=== PATIENT | female | born 1940 | race Caucasian/White ===

== ENCOUNTER 2022-11-29 06:12 | Outpatient (OUT) | payer MEDICARE, SELFPAY ==
--- NOTE | 2022-11-29 | PCN_ITS ---
CARDIAC STRESS TEST Requesting Physician:? Rashawn Caceres M.D. Procedure Date:? 11/29/2022 PERFORMING PROVIDER:? Rashawn Caceres M.D. INDICATION:? Chest pain. PROTOCOL:? Lexiscan myocardial perfusion scan. Resting heart rate:? 64 Max heart rate:? 87 Resting blood pressure:? 124/88 Maximum blood pressure:? 160/84 CONCLUSIONS: 1.? Resting EKG demonstrates sinus bradycardia. 2.? There were no definite EKG changes meeting the criteria for ischemia. 3.? Please refer to separately interpreted and reported myocardial perfusion imaging report. [facility]
--- NOTE | 2022-11-29 06:20 | NM_ITS ---
Patient: MICHEAL BRICE Exam Date: 11/29/2022 : 1940 Gender:F Ordering : STEVE PEGUERO Admission #: [id number] Family : SHAIKH Che MEJIAS . Order #: [id number] CLICK HERE TO VIEW EXAM RADIOLOGY REPORT PROCEDURE: NM PATEL PERF SPECT REST STR COMPARISON: None. INDICATIONS: CHEST PAIN, SHORTNESS OF BREATH TECHNIQUE: Exam Description: Stress/Rest one day protocol gated SPECT Rest Imagin.0 mCi Tc-99m Cardiolite IV on 11/29/2022 Stress Imaging 30.9 mCi Tc-99m Cardiolite IV on 11/29/2022 Exercise Protocol: 0.4 mg Lexiscan given IV Heart Rate (bpm): Rest: 54 Max: 87 PMHR: 62 Blood Pressure: Rest: 124/88 Max: 160/84 Symptoms: Rest and peak stress ECG findings were normal and the exercise portion of the study was normal per attending physician Dr. Peguero . For more details please see separate cardiac stress test report. FINDINGS: QUALITY OF STUDY: Excellent. PERFUSION DEFECT: None. LOCATION: N/A SIZE: N/A. SEVERITY: N/A. TYPE: N/A. WALL MOTION: Normal. LV SIZE: Normal. 74 mL. TID / TCD: None; 0.7 LVEF: Normal. Calculated EF 78%. SUMMARY: Myocardial perfusion imaging study is NORMAL. CONCLUSION: 1. Normal nuclear medicine myocardial perfusion scan. Dictated by: Jose Bearden M.D. on 11/30/2022 at 15:27 Approved by: Jose Bearden M.D. on 11/30/2022 at 15:28
[2022-11-29] MEDS: REGADENOSON 0.4 MG/5 ML SYRINGE IV (08:26)
--- NOTE | 2022-11-29 09:56 | CA_ITS ---
Patient: MICHEAL BRICE Exam Date: 11/29/2022 : 1940 Gender:F Ordering : STEVE PEGUERO Admission #: [id number] Family : Order #: [id number] CLICK HERE TO VIEW EXAM ECHOCARDIOGRAM REPORT PROCEDURE: CA ECHO DOPPLER COMPLETE INDICATIONS: Chest pain COMPARISON: None. DESCRIPTION: COMPLETE ECHOCARDIOGRAM Real-time transthoracic echocardiography with 2D, M-mode, spectral and color flow Doppler performed. QUALITY: Technical quality was good. LEFT VENTRICLE: Normal chamber size. Mild concentric left ventricular hypertrophy. LV EF: Normal left ventricular ejection fraction, (>55%). No regional wall motion abnormalities. DIASTOLIC: Grade I diastolic dysfunction. ATRIAL SEPTUM: Visually appears intact. LEFT ATRIUM: Moderate dilatation. RIGHT ATRIUM: Normal chamber size. RIGHT VENTRICLE: Normal chamber size. Normal right ventricular systolic function. TRICUSPID VALVE: Normal mobility and thickness. No stenosis with trivial regurgitation. Doppler studies reveal mildly (35-45) elevated right sided pressures. RVSP 35 mmHg MITRAL VALVE: Normal mobility and thickness. No evidence of mitral valve stenosis. There is no mitral annular calcification. Trivial mitral regurgitation. AORTIC VALVE: Normal trileaflet appearance. No visible sclerosis. Normal leaflet mobility. No evidence of aortic valve stenosis. No aortic regurgitation. AORTIC ROOT: Normal diameter and appearance. PULMONIC VALVE: Normal thickness and mobility. No stenosis. Trivial regurgitation. PERICARDIUM: No evidence of pericardial effusion. IVC: Collapses with inspirations. CONCLUSION: 1. Global ventricular systolic function is normal; visually estimated ejection fraction is 55 to 60% 2. Mild left ventricular hypertrophy 3. Grade 1 diastolic dysfunction 4. The left atrium is moderately dilated 5. Right ventricle is normal in size and systolic function 6. Mildly elevated right ventricular systolic pressure 7. No significant valvular abnormalities Adult Echocardiography Procedure Report Left Ventricle LVEDD (3.7 - 5.6 cm): 4.74 cm LVESD (2.2 - 4.0 cm): 3.22 cm LVIVS thickness (0.6 - 1.2 cm): 1.12 cm LVPW thickness (0.5 - 1.0 cm): 1.07 cm e': 0.12 m/s E - e': 4.50 LVOT Max Gradient: 4.51 mm[Hg] LVOT Area (cm2): 1.06 m/s Peak Velocity (LVOT): 1.06 m/s LVOT Diameter 2.05 cm Left Atrium LA Volume Index (2D A2C): 40.74 ml/m2 Left Atrium Systolic Dimension: 4.83 cm Mitral Valve MV E to A Ratio: 0.77 Mitral Valve A-Wave Peak Velocity: 0.70 m/s Mitral Valve E-Wave Peak Velocity: 0.54 m/s Right Ventricle Aorta AO Root Diam: 2.81 cm Ascending Ao Diam: 3.35 cm Aortic Valve AoV Area (Peak Santos): 2.98 cm2, 2.98 cm2 Peak Velocity(Antegrade Flow): 1.18 m/s Peak Gradient(Antegrade Flow): 5.57 mm[Hg] Tricuspid Valve Peak Velocity (Regurgitant Flow): 2.82 m/s Pulmonic Valve Mean Gradient: 2.12 mm[Hg] Mean Velocity: 0.69 m/s Peak Velocity: 0.97 m/s, 0.98 m/s Peak Gradient: 3.80 mm[Hg], 3.83 mm[Hg] Right Atrium Right Atrium Systolic Pressure: 41.43 ml, 41.43 ml Dictated by: Talat Tyler M.D. on 11/30/2022 at 09:59 Approved by: Talat Tyler M.D. on 11/30/2022 at 10:02
== END 2022-11-29 06:13 | disposition home or self-care (01) ==
PROVIDERS: PCP Internal Medicine; Visit Provider Internal Medicine Cardiovascular Disease
DX: R07.9 Chest pain, unspecified (principal)
CPT/HCPCS: 78452; 93017; 93306; A9500; J2785

== ENCOUNTER 2022-12-13 09:40 | Emergency (ER) | payer MEDICARE, SELFPAY ==
[2022-12-13] VITALS (26 sets, daily range): BP systolic 164–200; BP diastolic 86–137; PULSE 44–55; RESP 12–21; TEMP 36.6; O2SAT 96–99; BMI 35.3
--- NOTE | 2022-12-13 09:56 | XR_ITS ---
The [place] [id number] Patient Name: MICHEAL BRICE MRN: [id number] date: 1940 Sex: F Assigned Patient Location: ER Current Patient Location: ER Accession/Order Number: [id number] Exam Date: 12/13/2022 10:00 Report Date: 12/13/2022 10:30 At the request of: GILL BROWN Procedure: XR chest 1V TITLE: XR chest 1V COMPARISON: 2020 chest x-ray CLINICAL HISTORY: CP TECHNIQUE: One view. FINDINGS: Stable mild cardiomegaly and tortuous thoracic aorta. Calcified granuloma left lung base. The pulmonary vascular pattern is normal. The lungs are clear and the pleural margins are sharp. There are no significant skeletal abnormalities. XR/XR chest 1V IMPRESSION: NO ACUTE RADIOGRAPHIC FINDINGS Electronically authenticated by: CEDRIC ONOFRE Date: 12/13/2022 10:30
--- NOTE | 2022-12-13 09:56 | ECG_ITS ---
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
--- NOTE | 2022-12-13 09:57 | ED_ITS ---
HPI - Chest Pain General Chief Complaint: Chest Pain Stated Complaint: CHEST PAIN Time Seen by Provider: 12/13/22 09:53 Mode of arrival: walk-in Limitations: no limitations History of Present Illness HPI narrative: 82-year-old female presents for chest pain. It's been there since 8:30 this morning when she was on the computer, 1-1/2 hours ago. She points to the very low sternal area to indicate where it is and it goes into her back. She states she had a stress test a few weeks ago and in reviewing her electronic health record symptom is negative. No fever cough or shortness of breath. It does not radiate to her jaw or her arms. She is not short of breath. Symptom has been continuous and it's moderate. Related Data Previous Rx's Medication Instructions Recorded amlodipine 5 mg tablet (Norvasc) 5 mg PO DAILY #30 tabs 12/13/22 Allergies Allergy/AdvReac Type Severity Reaction Status Date / Time No Known Drug Allergies Allergy Verified 12/13/22 09:49 Review of Systems ROS Narrative A ten point review of systems is negative except as noted above. Exam Narrative Exam Narrative: Nurses note and vital signs reviewed and patient is not hypoxic. General: The patient appears well and in no apparent distress. Patient is resting comfortably on cart. Skin: Warm, dry, no pallor noted. There is no rash noted. Head: Normocephalic, atraumatic Eye: Normal conjunctiva, no drainage Ears, Nose, Mouth, and Throat: oral mucosa is moist. Nares patent. Cardiovascular: Regular Rate and Rhythm Respiratory: Patient is in no distress, no accessory muscle use, lungs are clear to auscultation, no wheezing, rales or rhonchi Back: non-tender GI: soft and nontender Musculoskeletal: The patient has no evidence of calf tenderness, no pitting edema, symmetrical pulses noted bilaterally Neurological: A&O, normal speech Psychiatric: Cooperative Constitutional Vital Signs, click to edit/add: Last Vital Signs Temp 97.8 F 12/13/22 09:50 Pulse 51 L 12/13/22 10:50 Resp 13 12/13/22 10:50 BP 179/105 H 12/13/22 10:46 Pulse Ox 97 12/13/22 10:50 O2 Del Method Room Air 12/13/22 09:50 Course Vital Signs Vital signs: Vital Signs Temperature 97.8 F 12/13/22 09:50 Pulse Rate 53 L 12/13/22 09:50 Respiratory Rate 18 12/13/22 09:50 Blood Pressure 200/105 H 12/13/22 09:50 Pulse Oximetry 98 12/13/22 09:50 Oxygen Delivery Method Room Air 12/13/22 09:50 Temperature 97.8 F 12/13/22 09:50 Pulse Rate 51 L 12/13/22 10:50 Respiratory Rate 13 12/13/22 10:50 Blood Pressure 179/105 H 12/13/22 10:46 Pulse Oximetry 97 12/13/22 10:50 Oxygen Delivery Method Room Air 12/13/22 09:50 MDM - Chest Pain MDM Narrative Medical decision making narrative: two sets of troponin are negative. Her blood pressure has been consistently elevated and she is prescribed Norvasc. She'll get a blood pressure recheck from her doctor within a few days for adjustment of her doses if needed. The importance of taking the blood pressure medicine was discussed with her thoroughly. She had a stress test and I reviewed the results and it was negative, two weeks ago. I do not suspect acute coronary syndrome. Treatment diagnosis and follow-up were discussed thoroughly with the patient. Differential Diagnosis Differential diagnosis: Likely pneumothorax, unstable angina pectoris, atypical chest pain, st elevation myocardial infarction and chest pain Lab Data Attestation: I reviewed the patient's lab results. Labs: Lab Results 12/13/22 12/13/22 Range/Units 10:07 11:27 WBC 10.7 (4.0-11.0) 10^3/uL RBC 4.13 L (4.20-5.40) 10^6/uL Hgb 12.0 (12.0-16.0) g/dL Hct 37.9 (36.0-48.0) % MCV 91.8 (81.0-99.0) fL MCH 29.1 (26.7-34.0) pg MCHC 31.7 (29.9-35.2) g/dL RDW 12.8 (11.0-15.0) % Plt Count 170 (150-450) 10^3/uL MPV 11.3 (9.5-13.5) fL Neut % (Auto) 33.9 L (43.0-75.0) % Lymph % (Auto) 57.9 (20.5-60.0) % [place] % (Auto) 6.6 (1.7-12.0) % Eos % (Auto) 1.0 (0.9-7.0) % Baso % (Auto) 0.4 (0.2-2.0) % Neut # (Auto) 3.6 (1.4-6.5) 10^3/uL Lymph # (Auto) 6.2 H (1.2-3.8) 10^3/uL [place] # (Auto) 0.7 (0.3-0.8) 10^3/uL Eos # (Auto) 0.1 (0.0-0.7) 10^3/uL Baso # (Auto) 0.0 (0.0-0.1) 10^3/uL Abs Immat Gran (auto) 0.02 (0.00-0.03) 10^3/uL Imm/Tot Granulo (auto) 0.2 (0.0-0.5) % Sodium 136 (136-145) mmol/L Potassium 4.3 (3.5-5.1) mmol/L Chloride 103 (98-107) mmol/L Carbon Dioxide 27.5 (21.0-32.0) mmol/L Anion Gap 9.8 BUN 20.0 H (7.0-18.0) mg/dL Creatinine 0.69 (0.55-1.02) mg/dL Est GFR ( Amer) >60 (>=60) Est GFR (Non-Af Amer) >60 (>=60) BUN/Creatinine Ratio 29.0 Glucose 86 (74-106) mg/dL Calcium 8.7 (8.5-10.1) mg/dL Troponin I High Sens 5.7 6.6 (4.0-51.3) pg/mL Imaging Data Chest x-ray: Radiologist's impression: Procedure: XR chest 1V TITLE: XR chest 1V COMPARISON: 2020 chest x-ray CLINICAL HISTORY: CP TECHNIQUE: One view. FINDINGS: Stable mild cardiomegaly and tortuous thoracic aorta. Calcified granuloma left lung base. The pulmonary vascular pattern is normal. The lungs are clear and the pleural margins are sharp. There are no significant skeletal abnormalities. IMPRESSION: NO ACUTE RADIOGRAPHIC FINDINGS Electronically authenticated by: CEDRIC ONOFRE Date: 12/13/2022 10:30 ECG Data Attestation: I personally reviewed and interpreted this ECG as follows: (EKG on my interpretation shows sinus bradycardia with a rate of 49 in no acute changes. First-degree AV block present.) Heart Score History: Slightly/Non-Suspicious ECG: Normal Age: >65 years Risk Factors: 1 or 2 Risk Factors Troponin: <Normal Limit Total Heart Score Recommendations & Risks:: 3 Discharge Plan Discharge Chief Complaint: Chest Pain Clinical Impression: Chest pain, Hypertension Patient Disposition: Home, Self-Care Time of Disposition Decision: 11:58 Condition: Good Mode of Transportation: Private Vehicle Prescriptions / Home Meds: New amlodipine [Norvasc] 5 mg tablet 5 mg PO DAILY Qty: 30 0RF Instructions: Hypertension (ED), Hypertension in the Older Adult (ED) Additional Instructions: See your family doctor within a week Stand Alone Forms: Portal Instructions Referrals: Shaikh Gross MD [Primary Care Provider] - 1 week
[2022-12-13 10:29] LABS: Basophils Percent Auto 0.4 % (0.2-2.0); Eosinophils Absolute Auto 0.1 10^3/uL (0.0-0.7); Hematocrit 37.9 % (36.0-48.0); Immature Granulocytes Abs Auto 0.02 10^3/uL (0.00-0.03); Immature Granulocytes Pct Auto 0.2 % (0.0-0.5); Lymphocytes Absolute Auto 6.2 10^3/uL (1.2-3.8); Lymphocytes Percent Auto 57.9 % (20.5-60.0); Mean Corpuscular HGB Conc 31.7 g/dL (29.9-35.2); Mean Corpuscular Hemoglobin 29.1 pg (26.7-34.0); Mean Corpuscular Volume 91.8 fL (81.0-99.0); Mean Platelet Volume 11.3 fL (9.5-13.5); Monocytes Absolute Auto 0.7 10^3/uL (0.3-0.8); Monocytes Percent Auto 6.6 % (1.7-12.0); Neutrophils Absolute Auto 3.6 10^3/uL (1.4-6.5); Neutrophils Percent Auto 33.9 % (43.0-75.0); Platelet Count 170 10^3/uL (150-450); Red Blood Count 4.13 10^6/uL (4.20-5.40); Red Cell Distribution Width 12.8 % (11.0-15.0); White Blood Count 10.7 10^3/uL (4.0-11.0)
[2022-12-13] MEDS: lidocaine HCL 15 ML, MAG HYDROX/ALUMINUM HYD/SIMETH 30 ML, HYOSCYAMINE SULFATE 0.25 MG PO (10:31)
[2022-12-13 10:44] LABS: Anion Gap 9.8; Calcium 8.7 mg/dL (8.5-10.1); Carbon Dioxide 27.5 mmol/L (21.0-32.0); Chloride 103 mmol/L (98-107); Estimated GFR (African America >60 (>=60); Estimated GFR (Non-African Ame >60 (>=60); Glucose 86 mg/dL (74-106); Potassium 4.3 mmol/L (3.5-5.1); Sodium 136 mmol/L (136-145); Troponin I High Sensitivity 5.7 pg/mL (4.0-51.3)
[2022-12-13 11:49] LABS: Troponin I High Sensitivity 6.6 pg/mL (4.0-51.3)
== END 2022-12-13 12:09 | disposition home or self-care (01) ==
PROVIDERS: Emergency Provider Emergency Medicine; PCP Internal Medicine
DX: R07.9 Chest pain, unspecified (principal)
CPT/HCPCS: 36415; 71045; 80048; 84484; 85025; 93005; 99285

== ENCOUNTER 2022-12-20 16:26 | Outpatient (OUT) | payer MEDICARE, SELFPAY ==
--- NOTE | 2022-12-20 16:38 | CT_ITS ---
[address] [address] Patient Name: MICHEAL BRICE MRN: [id number] date: 1940 Sex: F Assigned Patient Location: [facility] Current Patient Location: [facility] Accession/Order Number: [id number] Exam Date: 12/20/2022 17:03 Report Date: 12/20/2022 18:41 At the request of: SHAIKH RANDELL Procedure: CT angio chest EXAM: CT pulmonary angiogram of the chest using 98 mL of IV iodinated contrast. 3-D imaging was performed. Dose reduction technique used: Automated exposure control and/or adjustment of the mA and/or kV according to patient size and/or use of iterative reconstruction technique. REASON FOR EXAM: CHEST PAIN R07.9 COMPARISON: CT scan dated 01/17/2021 FINDINGS: No pulmonary emboli. No aortic dissection. No pneumothorax. No acute airspace opacities. No pleural effusion. No acute fractures. No concerning pulmonary nodules. No definite lymphadenopathy in the chest. Cardiomegaly. Old right rib fractures. Remainder unremarkable. CT/CT angio chest IMPRESSION: No pulmonary embolism or acute abnormalities in chest. Electronically authenticated by: MELINDA GILBERT Date: 12/20/2022 18:41
[2022-12-20 16:51] LABS: Estimated GFR (African America >60 (>=60); Estimated GFR (Non-African Ame >60 (>=60)
== END 2022-12-20 16:27 | disposition home or self-care (01) ==
LOC: LAB 16:31 → RAD 16:33
PROVIDERS: PCP Internal Medicine; Visit Provider Internal Medicine
DX: R07.9 Chest pain, unspecified (principal)
CPT/HCPCS: 36415; 71275; 82565; Q9967

== ENCOUNTER 2023-01-29 07:11 | Emergency (ER) | payer MEDICARE, SELFPAY ==
[2023-01-29] VITALS (17 sets, daily range): BP systolic 124–180; BP diastolic 84–90; PULSE 41–59; RESP 11–20; TEMP 36.2; O2SAT 91–100; BMI 37.8
--- NOTE | 2023-01-29 07:20 | XR_ITS ---
The [address] [address] Patient Name: MICHEAL BRICE MRN: [id number] date: 1940 Sex: F Assigned Patient Location: ER Current Patient Location: ER Accession/Order Number: [id number] Exam Date: 01/29/2023 07:35 Report Date: 01/29/2023 07:50 At the request of: GILL BROWN Procedure: XR chest 1V EXAM: XR chest 1V HISTORY: Chest pain and hypotension. COMPARISON: 12/13/2022. TECHNIQUE: AP erect view of the chest performed. FINDINGS: The trachea is midline. There is stable mild prominence of the cardiac silhouette. There is stable mild atheromatous calcification at the aortic arch. The hilar shadows are unremarkable. There is no consolidation or infiltrates. There is no pleural effusion or pulmonary vascular congestion. There is no pneumothorax. There is no acute osseous abnormality. XR/XR chest 1V IMPRESSION: There is no acute cardiopulmonary process. Electronically authenticated by: MALLIKA GEE Date: 01/29/2023 07:50
--- NOTE | 2023-01-29 07:20 | ECG_ITS ---
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
--- NOTE | 2023-01-29 07:21 | ED.CHESTPAI1 ---
HPI - Chest Pain General Chief Complaint: Chest Pain Stated Complaint: CHEST PAIN Time Seen by Provider: 01/29/23 07:14 History of Present Illness HPI narrative: 82-year-old female for a chief complaint of chest pain. It started about 4:00 this morning and it woke her up from sleep. She points to the low sternal area and it's just a pain. She can't further describe the pain such as sharp or pressure. It doesn't seem to radiate and she's had no fever or cough. It's been continuous since it started. She admits that she has been taking her blood pressure medication daily but she didn't take it today but it's been a month since she took it. She states she didn't take it because she felt well. Related Data Previous Rx's Medication Instructions Recorded amlodipine 5 mg tablet (Norvasc) 5 mg PO DAILY #30 tabs 12/13/22 Allergies Allergy/AdvReac Type Severity Reaction Status Date / Time No Known Drug Allergies Allergy Verified 12/13/22 09:49 Review of Systems ROS Narrative A ten point review of systems is negative except as noted above. PFSH PFSH Social History Smoking status: Former smoker Exam Narrative Exam Narrative: Nurses note and vital signs reviewed and patient is not hypoxic. General: The patient appears well and in no apparent distress. Patient is resting comfortably on cart. Skin: Warm, dry, no pallor noted. There is no rash noted. Head: Normocephalic, atraumatic Eye: Normal conjunctiva, no drainage Ears, Nose, Mouth, and Throat: oral mucosa is moist. Nares patent. Cardiovascular: Regular Rate and Rhythm Respiratory: Patient is in no distress, no accessory muscle use, lungs are clear to auscultation, no wheezing, rales or rhonchi Back: non-tender GI: soft and nontender Musculoskeletal: The patient has no evidence of calf tenderness, no pitting edema, symmetrical pulses noted bilaterally Neurological: A&O, normal speech Psychiatric: Cooperative Constitutional Vital Signs, click to edit/add: Last Vital Signs Temp 97.2 F L 01/29/23 07:15 Pulse 44 L 01/29/23 09:20 Resp 19 01/29/23 09:20 BP 180/90 H 01/29/23 07:15 Pulse Ox 97 01/29/23 09:20 O2 Del Method Room Air 01/29/23 07:15 Course Vital Signs Vital signs: Vital Signs Temperature 97.2 F L 01/29/23 07:15 Pulse Rate 59 L 01/29/23 07:15 Respiratory Rate 18 01/29/23 07:15 Blood Pressure 180/90 H 01/29/23 07:15 Pulse Oximetry 97 01/29/23 07:15 Oxygen Delivery Method Room Air 01/29/23 07:15 Temperature 97.2 F L 01/29/23 07:15 Pulse Rate 44 L 01/29/23 09:20 Respiratory Rate 19 01/29/23 09:20 Blood Pressure 180/90 H 01/29/23 07:15 Pulse Oximetry 97 01/29/23 09:20 Oxygen Delivery Method Room Air 01/29/23 07:15 MDM - Chest Pain MDM Narrative Medical decision making narrative: two sets of troponin are negative and she had a negative stress test two months ago. She is now symptom-free and is being discharged home. She was again encouraged to take her blood pressure medication on a daily basis. Her blood pressure improved without intervention here. I do not suspect acute coronary syndrome. Treatment diagnosis and follow-up were discussed with the patient. Differential Diagnosis Differential diagnosis: Likely pneumothorax, unstable angina pectoris, atypical chest pain, st elevation myocardial infarction and chest pain Medical Records Data Attestation: I reviewed the patient's medical records. Lab Data Attestation: I reviewed the patient's lab results. Labs: Lab Results 01/29/23 01/29/23 Range/Units 07:29 08:49 WBC 11.0 (4.0-11.0) 10^3/uL RBC 4.20 (4.20-5.40) 10^6/uL Hgb 12.2 (12.0-16.0) g/dL Hct 38.9 (36.0-48.0) % MCV 92.6 (81.0-99.0) fL MCH 29.0 (26.7-34.0) pg MCHC 31.4 (29.9-35.2) g/dL RDW 12.5 (11.0-15.0) % Plt Count 175 (150-450) 10^3/uL MPV 11.1 (9.5-13.5) fL Seg Neuts % (Manual) 40.0 Band Neutrophils % 2.0 (0-5) % Lymphocytes % (Manual) 48.0 (20.5-60.0) % Atypical Lymphs % (Man) 2.0 % Monocytes % (Manual) 7.0 (1.7-12.0) % Eosinophils % (Manual) 1.0 (0.9-7.0) % Basophils % (Manual) 0.0 L (0.2-2.0) % Neutrophils # (Manual) 4.40 (1.4-6.5) 10^3/uL Band Neutrophils # 0.2 (0.0-0.3) 10^3/uL Lymphocytes # (Manual) 5.28 H (1.20-3.80) 10^3/uL Abs Atypical Lymphs Man 0.2 Monocytes # (Manual) 0.77 (0.30-0.80) 10^3/uL Eosinophils # (Manual) 0.11 (0.00-0.70) 10^3/uL Basophils # (Manual) 0.00 (0.00-0.10) 10^3/uL Sodium 140 (136-145) mmol/L Potassium 4.5 (3.5-5.1) mmol/L Chloride 104 (98-107) mmol/L Carbon Dioxide 26.2 (21.0-32.0) mmol/L Anion Gap 14.3 BUN 18.0 (7.0-18.0) mg/dL Creatinine 0.74 (0.55-1.02) mg/dL Est GFR ( Amer) >60 (>=60) Est GFR (Non-Af Amer) >60 (>=60) BUN/Creatinine Ratio 24.3 Glucose 94 (74-106) mg/dL Calcium 8.9 (8.5-10.1) mg/dL Troponin I High Sens 4.7 4.9 (4.0-51.3) pg/mL Imaging Data Chest x-ray: Radiologist's impression: Procedure: XR chest 1V EXAM: XR chest 1V HISTORY: Chest pain and hypotension. COMPARISON: 12/13/2022. TECHNIQUE: AP erect view of the chest performed. FINDINGS: The trachea is midline. There is stable mild prominence of the cardiac silhouette. There is stable mild atheromatous calcification at the aortic arch. The hilar shadows are unremarkable. There is no consolidation or infiltrates. There is no pleural effusion or pulmonary vascular congestion. There is no pneumothorax. There is no acute osseous abnormality. IMPRESSION: There is no acute cardiopulmonary process. Electronically authenticated by: MALLIKA GEE Date: 01/29/2023 07:50 ECG Data Attestation: I personally reviewed and interpreted this ECG as follows: (EKG on my interpretation shows sinus rhythm with a rate of 49 and no acute changes.) Heart Score History: Moderately Suspicious ECG: Normal Age: >65 years Risk Factors: 1 or 2 Risk Factors Troponin: <Normal Limit Total Heart Score Recommendations & Risks:: 4 Discharge Plan Discharge Chief Complaint: Chest Pain Clinical Impression: Chest pain Patient Disposition: Home, Self-Care Time of Disposition Decision: 10:12 Condition: Good Mode of Transportation: Private Vehicle Prescriptions / Home Meds: No Action amlodipine [Norvasc] 5 mg tablet 5 mg PO DAILY Qty: 30 0RF Instructions: Chest Pain (ED) Additional Instructions: take your blood pressure medication on a daily basis Stand Alone Forms: Portal Instructions Referrals: ANTONIO SEAY [Primary Care Provider] - 1 week
[2023-01-29] MEDS: NITROGLYCERIN 0.4 MG BOTTLE PO ×2 (07:26→07:54)
[2023-01-29] MEDS: ASPIRIN 81 MG TAB.CHEW 324 MG PO (07:26)
[2023-01-29 07:35] LABS: Hematocrit 38.9 % (36.0-48.0); Hemoglobin 12.2 g/dL (12.0-16.0); Mean Corpuscular HGB Conc 31.4 g/dL (29.9-35.2); Mean Corpuscular Volume 92.6 fL (81.0-99.0); Mean Platelet Volume 11.1 fL (9.5-13.5); Platelet Count 175 10^3/uL (150-450); Red Cell Distribution Width 12.5 % (11.0-15.0)
[2023-01-29 07:55] LABS: Anion Gap 14.3; BUN Creatinine Ratio 24.3; Calcium 8.9 mg/dL (8.5-10.1); Carbon Dioxide 26.2 mmol/L (21.0-32.0); Chloride 104 mmol/L (98-107); Estimated GFR (African America >60 (>=60); Estimated GFR (Non-African Ame >60 (>=60); Glucose 94 mg/dL (74-106); Potassium 4.5 mmol/L (3.5-5.1); Sodium 140 mmol/L (136-145); Troponin I High Sensitivity 4.7 pg/mL (4.0-51.3)
[2023-01-29 08:11] LABS: Atypical Lymphocytes Abs Man 0.2; Band Neutrophils Absolute 0.2 10^3/uL (0.0-0.3); Eosinophils Absolute Manual 0.11 10^3/uL (0.00-0.70); Lymphocytes Absolute Manual 5.28 10^3/uL (1.20-3.80); Monocytes Absolute Manual 0.77 10^3/uL (0.30-0.80)
[2023-01-29 09:17] LABS: Troponin I High Sensitivity 4.9 pg/mL (4.0-51.3)
--- OUTSIDE RECORDS SUMMARY | 2023-03-06 17:33 | XMS_ITS | CCD ---
Author Name Unknown Address [address] [place] [address] Organization [facility] Care Team Providers Care Web Architect Name Role Phone DR MIGEL RAMSEY Consulting Unavailable FASHAIKH Richmond PARISI Primary Care Unavailable SHAIKH Richmond GROSS Attending Unavailable SHAIKH Richmond GROSS Admitting Unavailable SHAIKH Richmond GROSS Consulting Unavailable No, Physician Primary Care Provider Unavailabl e LUIS FELIPE BUSCH Attending Unavailable NO, PHYSICIAN Primary Care Unavailable NO, PHYSICIAN Primary Care Unavailable LUIS FELIPE BUSCH Referring Unavailable FADLUIS FELIPE De La Vega Admitting Unavailable NO, PHYSICIAN Primary Care Unavailable LUIS FELIPE BUSCH Attending Unavailable RASHAWN CACERES Attending Unavailable TerranceJessie contreras Attending Unavailable TerranceJessie Attending Unavailable TerranceJessie contreras Attending Unavailable Allergies Allergy Classification Reported Allergen(s) Allergy Type Date of Onset Reaction(s) Facility (1 source) Corticosteroids Drug allergy (disorder) 1 [facility] Repository Medications Current Medications Medication Drug Class(es) Dates Sig (Normalized) Sig (Original) cephalexin 500 mg oral capsule (2 sources) Cephalosporin Antibacterial Start: 04-18-2022 End: 04-28-2022 take 1 capsule by mouth four times daily cephALEXin (KEFLEX) 500 MG capsule Take 1 (one) capsule (500 mg total) by mouth 4 (four) times a day for 10 days . 40 capsule 1 04/18/2022 04/28/2022 Active omega-3 acid ethyl esters (fpc) 1000 mg oral capsule (1 source) omega-3 acid ethyl esters (LOVAZA) 1 gram capsule Take 2 (two) capsules (2 g total) by mouth 2 (two) times a day . 0 Active vitamin b12 1 mg/ml oral solution (3 sources) Vitamin B12 take 1 tablet by mouth once daily cyanocobalamin, vitamin B-12, 1,000 mcg/mL Drop Take 1 tablet by mouth daily . 0 Active vitamin e 22.6 mg/ml oral solution (3 sources) take 2 capsules by mouth once daily vitamin E, dl, acetate, 22.5 mg (50 unit)/mL Drop Take 2 capsules by mouth daily . 0 Active Problems Problem Classification Problem Date Documented Da te Episodic/Chronic Nonspecific chest pain (2 sources) Chest pain, unspecified; Translations: [Chest pain, unspecified] Onset: 11-08-2022 Episodic Other connective tissue disease (2 sources) History of right total knee replacement; Translations: [Presence of right artificial knee joint] Chronic Residual codes; unclassified (2 sources) Pain, unspecified; Translations: [Pain, unspecified] Onset: 04-18-2022 Episodic Residual codes; unclassified (2 sources) Pain Onset: 04-18-2022 Episodic Results Test Name Value Interpretation Reference Range Facil ity ED Note-Physicianon 02-08-20 ED Note-Physician [id number]# 1.00TIFF [facility] Cardiovascular Reporton 01-18 Cardiovascular Report [id number]#1.00TIFF [facility] Consultation Noteon 02-07-20 Consultation Note [id number]#1.00TIFF [facility] Echocardiographyon Echocardiography [id number]# 1.00TIFF [facility] Ambulatory Visit Summaryon 1 04-07-2022 Ambulatory Visit Summary MICHEAL BRICE :1940 Visit Date:02/05/2023 Ambulatory Visit Instructions Your Care Team Attending Physician - Jessie Max Primary Care Physician - Jessie Max This Is Your Medications List amlodipine (amLODIPine 5 mg Tab) Discharge Vitals Heart Rate (Peripheral) 74 Respiratory Rate 18 Blood Pressure 136/82 Height 155.0 cm Height 61 in Weight 88.8 kg Weight 195.36 lb BMI 36.96 What to do next Scheduled Follow-Up Appointments Sunday 1:00 PM EST With: Jessie Max Where: [facility] Normal [facility] Office/Clini c Noteon 02-05-2023 Family Medicine Office/Clinic Note HPI Staff Micheal is a 82 year old female presenting for ER follow up ER followup: [facility]: [facility] Visit date: 01-29-23 Symptoms the patient presented with: Chest pains, hypertension No new medications started Current concerns: pt states she usually doesn't take any medications all natural herbs. Woke up 01/29 with epigastric pain took her blood pressure it was in the 180's. History of Present Illness pt presents for ER follow up for elevated BP Review of Systems PHQ Score Initial Depression Screen Score: 0 SCORE ROS - Provider Constitutional: no fever, no chills, no sweats, no fatigue Respiratory: no shortness of breath, no cough, no orthopnea, no wheezing. Cardiovascular: no chest pain, no palpitations, no edema. Neurologic: no headache, no dizziness, no numbness, no weakness. Physical Exam Vitals & Measurements HR: 74(Peripheral) RR: 18 BP: 136/82 SpO2: 97% HT: 61 in HT: 155.0 cm WT: 88.8 kg WT: 195.36 lb BMI: 36.96 General: alert, no acute distress ENMT: oral mucosa moist, no pharyngeal erythema or exudate Cardiovascular: regular rate and rhythm, normal peripheral perfusion Respiratory: Lungs CTA, respirations non labored Extremities: no deformity, no trauma Neurological: oriented x 4, LOC appropriate for age, CN II-XII intact, motor strength equal & normal bilaterally, speech normal Assessment/Plan 1. Hypertension (I10: Essential (primary) hypertension) pt presents today for ER follow up for elevated BP. pt was prescribed amlodipine in November. but stopped taking it after having cardiac work up that was negative. will try to obtain those results from [facility]. pt stated taking medication after ER visit and BP is WNL now. encouraged her to please continue taking amlodipine daily. pt states I do not like taking meds. she would rather take vitamins and herbs. encouraged the importance of taking BP meds daily to prevent BP from rising so high that she has to make another trip to ER. 2. BMI 36.0-36.9,adult (Z68.36: Body mass index [BMI] 36.0-36.9, adult) discussed making good food choices and losing weight. pt is encouraged to lose weight because she does not want to take BP meds the rest of her life Orders: amlodipine, 5 mg = 1 tab(s), Oral, Daily, # 90 tab(s), Refills(s) 0, Pharmacy: [facility] #[id number], 155, cm, 02/05/23 13:30:00 EST, Height/Length Dosing, 88.8, kg, 02/05/23 13:30:00 EST, Weight Dosing cephalexin, 500 mg = 1 cap(s), Oral, q12hr, # 20 cap(s), Refills(s) 0, [facility]acy: [facility] #[id number], 155, cm, 01/03/23 10:31:00 EDT, Height/Length Dosing, 88.9, kg, 01/03/23 10:31:00 EDT, Weight Dosing Follow-up No qualifying data available Problem List/Past Medical History Ongoing BMI 36.0-36.9,adult Hypertension Spider bite Historical No qualifying data Medications amLODIPine 5 mg Tab, 5 mg= 1 tab(s), Oral, Daily amLODIPine 5 mg Tab, 5 mg= 1 tab(s), Oral, Daily Allergies No Known Allergies Social History Tobacco Never (less than 100 in lifetime) Tobacco Use:. Never Smokeless Tobacco Use:. Household tobacco concerns: No., 02/05/2023 Immunizations Vaccine Date Status diphtheria/pertussis, acel/tetanus adult 08/07/2013 Recorded tetanus-diphtheria toxoids 03/19/2004 Recorded Normal [facility] Comment on above: Result Comment: Elec tronically Signed By: Jessie Max\.sonido\Date and Time Signed: 02/05/23 14:00 EST ED Note-Physicianon 02-01-20 ED Note-Physician [id number] #1.00TIFF Normal [facility] RAD - MISCon 01-29-2023 RAD - MISC [id number]#1.00TI FF Normal [facility] Ambulatory Visit Summaryon 1 Ambulatory Visit Summary MICHEAL BRICE :1940 Visit Date:01/03/2023 Ambulatory Visit Instructions Your Diagnosis BMI 37.0-37.9, adult Non-smoker Your Care Team Attending Physician - Jessie Max Primary Care Physician - Jessie Max Discharge Vitals Heart Rate (Peripheral) 68 Respiratory Rate 18 Blood Pressure 122/82 Height 155 cm Height 61 in Weight 88.9 kg Weight 195.58 lb BMI 37 Allergies No Known Allergies Normal [facility] Family Medicine Office/Clini c Noteon 01-03-2023 Family Medicine Office/Clinic Note HPI Staff Micheal is a 82 year old female presenting for acute visit pt was bit by spider on 12/29/22 left lower back area is red and swelled and seeping. had put ALISHA , ambar drawing Lizbet. area is sore History of Present Illness pt presets today with spider bite on left lower back Review of Systems PHQ Score Initial Depression Screen Score: 0 ROS - Provider Constitutional: no fever, no chills, no sweats, no fatigue Respiratory: no shortness of breath, no cough, no orthopnea, no wheezing. Cardiovascular: no chest pain, no palpitations, no edema. Neurologic: no headache, no dizziness, no numbness, no weakness. Physical Exam Vitals & Measurements HR: 68(Peripheral) RR: 18 BP: 122/82 SpO2: 98% HT: 61 in HT: 155 cm WT: 88.9 kg WT: 195.58 lb BMI: 37 General: alert, no acute distress ENMT: oral mucosa moist, no pharyngeal erythema or exudate Cardiovascular: regular rate and rhythm, normal peripheral perfusion Respiratory: Lungs CTA, respirations non labored Extremities: no deformity, no trauma Neurological: oriented x 4, LOC appropriate for age, CN II-XII intact, motor strength equal & normal bilaterally, speech normal Assessment/Plan 1. Spider bite (T63.301A: Toxic effect of unspecified spider venom, accidental (unintentional), initial encounter) pt presents today with spider bite on right lower back. she felt it bite her on Sunday. area was swollen and oozing. she has been treating it at home but was concerned it was infected. will send keflex. cerave cream samples also provided. RTC as needed Ordered: cephalexin, 500 mg = 1 cap(s), Oral, q12hr, # 20 cap(s), Refills(s) 0, Pharmacy: [facility] #[id number], 155, cm, 01/03/23 10:31:00 EDT, Height/Length Dosing, 88.9, kg, 01/03/23 10:31:00 EDT, Weight Dosing 2. BMI 37.0-37.9, adult (Z68.37: Body mass index [BMI] 37.0-37.9, adult) BMI education complete Ordered: cephalexin, 500 mg = 1 cap(s), Oral, q12hr, # 20 cap(s), Refills(s) 0, Pharmacy: [facility] #[id number], 155, cm, 01/03/23 10:31:00 EDT, Height/Length Dosing, 88.9, kg, 01/03/23 10:31:00 EDT, Weight Dosing 3. Non-smoker (Z78.9: Other specified health status) continue not smoking Ordered: cephalexin, 500 mg = 1 cap(s), Oral, q12hr, # 20 cap(s), Refills(s) 0, Pharmacy: [facility] #[id number], 155, cm, 01/03/23 10:31:00 EDT, Height/Length Dosing, 88.9, kg, 01/03/23 10:31:00 EDT, Weight Dosing Follow-up No qualifying data available Problem List/Past Medical History Ongoing Spider bite Historical No qualifying data Medications cephalexin 500 mg Cap, 500 mg= 1 cap(s), Oral, q12hr Allergies No Known Allergies Social History Tobacco Never (less than 100 in lifetime) Tobacco Use:. Never Smokeless Tobacco Use:. Household tobacco concerns: No., 01/03/2023 [facility] Comment on above: Result Comment: Elec tronically Signed By: Jessie Max.sonido\Date and Time Signed: 01/03/23 11:29 EDT Office Visiton 11-08-2022 Follow-up visit [id number] Adrianna Brice 1940 F Date Provider Department Center 11/08/2022 3848-RASHAWN CACERES [facility] Family History Problem Relation Age of Onset Coronary artery disease Mother Other Mother Family Status - Relation Status Age at Mother Level of Service:12956 [place] OFFICE/OUTPATIENT NEW MODERATE MDM 45-59 MINUTES Normal [facility] Vital Signs Date Time Vital Sign Value Performing Clinician Faci lity 05-09-2022 08:07-0500 Body height 157.5 cm Luis Felipe Busch MD Work Phone: [facility] 05-09-2022 08:07-0500 Body mass index (BMI) [Ratio] 37.49 kg/m2 Luis Felipe Busch MD Work Phone: [facility] 05-09-2022 08:07-0500 Body weight 92.99 kg Luis Felipe Busch MD Work Phone: [facility] 04-18-2022 08:32-0500 Body height 157.5 cm Luis Felipe Busch MD Work Phone: [facility] 04-18-2022 08:32-0500 Body mass index (BMI) [Ratio] 37.49 kg/m2 Luis Felipe Busch MD Work Phone: [facility] 04-18-2022 08:32-0500 Body weight 92.99 kg Luis Felipe Busch MD Work Phone: [facility] Encounters Encounter Date Encounter Type Care Provider Facility Start: 03-21-2023 ambulatory Jessie L Terrance Facility: [facility] Start: 02-05-2023 End: 02-06-2023 ambulatory Jessie L Terrance Facility: [facility] Start: 01-03-2023 End: 01-04-2023 ambulatory Jessie L Terrance Facility: [facility] Start: 11-08-2022 End: 11-08-2022 ambulatory RASHAWN CACERES [facility] Start: 05-09-2022 End: 05-09-2022 ambulatory PHYSICIAN [facility] Start: 05-09-2022 End: 05-09-2022 Office outpatient visit 15 minutes Luis Felipe Busch MD Work Phone: [facility] Comment on above: History of total rig ht knee replacement (Primary Dx) Start: 04-28-2022 Refill Niurka Fitzgerald MA [facility] Start: 04-18-2022 End: 04-22-2022 ambulatory PHYSICIAN NO [facility] Start: 04-18-2022 End: 04-18-2022 Office outpatient new 30 minutes Luis Felipe Busch MD Work Phone: [facility] Comment on above: History of total rig ht knee replacement (Primary Dx) Start: 03-29-2022 End: 03-30-[address] MIGEL RAMSEY Facility: Plan of Treatment Date Care Activity Detail Author Start: 08-08-2023 Tetanus vaccination Tetanus: Every 10yrs [facility] Start: 05-08-2023 End: 05-08-2023 Patient encounter procedure 05/08/2023 Office Visit Orthopedic Surgery Luis Felipe Busch MD [address] [place], [place] [id number] [facility] Start: 05-09-2022 End: 05-09-2022 Patient encounter procedure 05/09/2022 Office Visit Orthopedic Surgery Luis Felipe Busch MD [address] [place] [id number] [facility] Start: 11-17-2021 Influenza vaccination Sequential Influenza Vaccine (#1) [facility] Start: 2007 Fall risk assessment Falls Risk Assessment [facility] Start: 2007 Pneumococcal Vaccine: Age 65+ (1 - PCV) Pneumococcal Vaccine: Age 65+ (1 - PCV) [facility] Start: 1992 Administration of herpes zoster vaccine Zoster Vaccines (1 of 2) [facility] Start: 1982 Screening for malignant neoplasm of breast Mammogram [facility] Start: 1954 Depression screening using PHQ-9 (Patient Health Questionnaire 9) score Depression Screening (PHQ-2/9) [facility] Start: 1945 History and physical examination, annual for health maintenance Wellness Visit [facility] Start: 1940 COVID-19 Vaccine (#1) COVID-19 Vaccine (#1) [facility] Start: 1940 Screening for osteoporosis Dexa Scan [facility] Payers Date Payer Category Payer Medicare DOMINIQUE EVANSCARLOS DOMINIQUE BILLY ACCESS/ENHANCED/CORE PPO/RPPO [id number] 2021-Present [phone] [address] [place] [address] 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 female With no significant cardiac history who was referred to Cardiology clinic for evaluation of chest pain. Patient states that approximately 1 week ago, she developed sharp substernal chest pain (She does not recall duration) prior to resolving spontaneously. She denies any associated symptoms. She denies any shortness of breath. She denies any nausea or vomiting. Patient adamantly denies any syncope, LE edema, orthopnea, PND, palps, or bleeding. Denies any recurrence of chest pain Patient denies any previous history of CVA, PVD, DM, HTN, Depressed LVEF, and CAD. Cardiology ROS: GENERAL: Denies fever, chills, night sweats, weight loss. HEENT: Denies changes in vision, photophobia, changes in hearing, epistaxis, oral bleeding. CARDIOVASCULAR: As per HPI RESPIRATORY: Denies SOB, coughing, wheezing GI: Denies abdominal pain, nausea/vomiting, heartburn, melena/hematochezia. RENAL: Denies dysuria, hematuria, flank pain. MSK: Denies muscle weakness/pain, arthralgias/joint pain. NEUROLOGIC: Denies LOC, weakness, numbness, headaches. SKIN: Denies abnormal rashes or bleeding. PSYCH: Denies significant anxiety, depression, sleep disturbances. Past Medical History She has a past medical history of Chest pain. Surgical History She has a past surgical history that includes Bowel resection; Ankle surgery; Finger surgery; and Replacement total knee oncologic. Social History She reports that she has never smoked. She has never used smokeless tobacco. She reports that she does not drink alcohol. No history on file for drug use. Family History Family History Problem Relation Name Age of Onset Coronary artery disease Mother Other (heart valve disease) Mother Medications Current Outpatient Medications on File Prior to Visit Medication Sig Dispense Refill cyanocobalamin, vitamin B-12, 1,000 mcg/mL drops Take 1 tablet by mouth in the morning. No current facility-administered medications on file prior to visit. Allergies Patient has no known allergies. Physical Exam VITAL SIGNS: BP 142/84 (BP Location: Left arm, Patient Position: Sitting) Pulse 56 Ht 1.575 m (5' 2 ) Wt 89.4 kg (197 lb) SpO2 97% BMI 36.03 kg/m??? Constitutional: Well developed, Well nourished, No acute distress, Non-toxic appearance. HENT: Normocephalic, Atraumatic, Bilateral external ears have normal appearance, Nose appears normal, nares are patent. Eyes: PERRLA, EOMI, Conjunctiva normal, No discharge. Neck: Normal range of motion, No tenderness, Supple, No stridor. No cervical lymphadenopathy noted. Cardiovascular: Normal heart rate, Normal rhythm, No murmurs, No rubs, No gallops. Thorax & Lungs: Normal breath sounds, No respiratory distress, No wheezing, No chest tenderness to palpation. Abdomen: Bowel sounds normal, Soft, Nontender, No masses, No pulsatile masses. Skin: Warm, Dry, No erythema, No rash. Back: No tenderness, No CVA tenderness. Extremities: Intact distal pulses, No edema, No tenderness, No cyanosis, No clubbing. Musculoskeletal: Grossly normal strength in extremities Neurologic: Alert & oriented x 3, no gross focal neurological deficits Psychiatric: Affect normal, Judgment normal, Mood normal. Impression: -Hypertension -Chest pain Plan: -Obtain EKG today in clinic -We will obtain echocardiogram to assess LVEF, valvular function, no regional wall motion -We will obtain Lexiscan myocardial perfusion imaging to assess for ischemia -Instructed the patient to take aspirin 81 mg daily pending further evaluation -Discussed starting patient on statin and beta-li. She declines at this time -Optimize medical management -Aggressive risk factor modification -Plan of care discussed with patient. All questions were answered. Patient voices understanding and is agreeable with current plan. -Patient was educated on red flag symptoms. Strict return precautions were provided. Patient reminded to call 911 in the event that she has recurrence of chest pain. Patient verbalizes understanding -Follow-up in cardiology clinic after testing is complete Thank you for allowing us to participate in the care of your patient. Please do not hesitate to contact cardiology with any questions or concerns. Rashawn Caceres MD Interventional Cardiology [facility] Progress note 11-08-2022 Note Date & Type Note Facility 11-08-2022 Note New patient here to establish care. Self ref for chest pain. Hx of LLE superficial thrombus back in 2020. Dr. Gross wanted her to take AC but she refused. Says she had some sharp chest pain last week that concerned her. Thought it was coming from something she had eaten. Denies associated SOB. Review of Systems Cardiovascular: Positive for chest pain and dyspnea on exertion ( I'm out of shape ). All other systems reviewed and are negative. [facility] History of Present illness Narrative 05-09-2022 Luis Felipe Busch MD - 05/09/2022 8:48 AM EST Note Date & Type Note Facility 05-09-2022 History of Presen t illness Narrative Subjective: Patient ID: Micheal Brice is a 82 y.o. female. HPI: She is here for follow-up regarding her cellulitis on her right lower extremity. She states that she did get the knee-high stockings and has been wearing them faithfully. She states that the knee feels great today and the cellulitis has resolved. The following portions of the patient's history were reviewed and updated as appropriate: allergies, current medications, past family history, past medical history, past social history, past surgical history, and problem list. Review of Systems Constitutional: Negative for chills and fever. HENT: Negative for dental problem. Respiratory: Negative for shortness of breath. Cardiovascular: Negative for chest pain and leg swelling. Gastrointestinal: Negative for vomiting. Musculoskeletal: Positive for arthralgias. Negative for gait problem and joint swelling. Skin: Negative for color change. Neurological: Negative for numbness. Hematological: Does not bruise/bleed easily. Psychiatric/Behavioral: The patient is not nervous/anxious. There is no problem list on file for this patient. Objective: General: alert, appears stated age, and cooperative Motion: Flexion: 0 to 120 Degrees Knee Strength: 5/5 throughout knee extensors and flexors Knee Stability: No instability of the knee DVT Exam: No evidence of DVT seen on physical exam. Imaging Studies: No results found. Assessment: 1. History of total right knee replacement Plan: We are pleased she is doing much better. She can discontinue the knee-high stockings. She is done with the antibiotics. We did advise her we really want to picker tender her exercise and activity level. We will see her in a year for reevaluation. No orders of the defined types were placed in this encounter. Return in about 1 year (around 05/09/2023) for Annual physical, xrays. Note: To expedite correspondence this note was generated by [employer] recognition software. Some grammatical or spelling errors may occur using the system. documented in this encounter [facility] Telephone encounter Note 04-28-2022 Telephone Encounter - Niurka Fitzgerald MA - 04/28/2022 3:19 PM EST Note Date & Type Note Facility 04-28-2022 Telephone encounter Note Form atting of this note might be different from the original. Patient called with question with whether she should finish keflex , she was instructed to finish antibiotic . [facility] Note 04-28-2022 Telephone Encounter - Niurka Fitzgerald MA - 04/28/2022 3:19 PM EST Note Date & Type Note Facility 04-28-2022 Miscellaneous Notes Formattin g of this note might be different from the original. Patient called with question with whether she should finish keflex , she was instructed to finish antibiotic . documented in this encounter [facility] History of Present illness Narrative 04-18-2022 Luis Felipe Busch MD - 04/18/2022 9:21 AM EST Note Date & Type Note Facility 04-18-2022 History of Presen t illness Narrative Subjective: Patient ID: Micheal Brice is a 82 y.o. female. HPI: She is a former patient of ours status post a right total knee arthroplasty. She states that she fell onto a ladder a little bit before New . She did finally have x-rays done of this which are from an outside facility. She states that she has been having a painful right lower leg as well as her knee hurts where she hit the ladder wrong. She is here for evaluation. The following portions of the patient's history were reviewed and updated as appropriate: allergies, current medications, past family history, past medical history, past social history, past surgical history, and problem list. Review of Systems Constitutional: Negative for chills and fever. HENT: Negative for dental problem. Respiratory: Negative for shortness of breath. Cardiovascular: Negative for chest pain and leg swelling. Gastrointestinal: Negative for vomiting. Musculoskeletal: Positive for arthralgias. Negative for gait problem and joint swelling. Skin: Positive for color change. Neurological: Negative for numbness. Hematological: Does not bruise/bleed easily. Psychiatric/Behavioral: The patient is not nervous/anxious. There is no problem list on file for this patient. Objective: General: alert, appears stated age, and cooperative Motion: Flexion: 0 to 120 Degrees Knee Strength: 5/5 throughout knee extensors and flexors Knee Stability: No instability of the knee DVT Exam: Calf/Ankle edema is present. Positive cellulitis starting at calf Imaging Studies: No results found. Imported x-rays 04-18-2022 independently reviewed Assessment: 1. History of total right knee replacement Plan: She does have cellulitis of the right lower extremity. Her total knee arthroplasty is stable. She is painful where she fell which will resolve with time. She is advised to get some knee-high stockings and at least wear these on the right lower extremity. We will place orders for antibiotics for 10 days to hopefully resolve the cellulitis. We will see her back in 3 weeks for reevaluation. No orders of the defined types were placed in this encounter. Return in about 3 weeks (around 05/09/2022) for Recheck, xrays. Note: To expedite correspondence this note was generated by [employer] voice recognition software. Some grammatical or spelling errors may occur using the system. documented in this encounter [facility] Clinical Note 03-30-2022 Note Date & Type Note Facility 03-30-2022 Note PROCEDURE: XR ELBOW RT MIN 3 VIEWS HISTORY: Accidental fall ; posterior right elbow pain COMPARISON: None. FINDINGS: BONES:Separate, corticated ossifications medial and lateral to the humeral condyles favoring heterotopic bone formation from remote injuries. No acute fracture or dislocation. Small periarticular degenerative osteophytes. SOFT TISSUES:No visible soft tissue swelling. EFFUSION:None visible. OTHER: Negative. IMPRESSION: 1. No acute bone abnormality. Electronically authenticated by: MIGEL RAMSEY Date: 2022-03-30 12:47 [facility] Clinical Note 03-30-2022 Note Date & Type Note Facility 03-30-2022 Note PROCEDURE: XR KNEE R T 4V or > HISTORY: Accidental fall ; anterior right knee pain COMPARISON: None. FINDINGS: BONES:Right knee replacement without evidence of hardware fracture or loosening. No bone fracture, dislocation, or lesion. SOFT TISSUES:No visible soft tissue swelling. EFFUSION:None visible. OTHER: Negative. IMPRESSION: 1. Right knee replacement without evidence of hardware failure. 2. No acute bone abnormality. Electronically authenticated by: MIGEL RAMSEY Date: 2022-03-30 12:42 [facility] Evaluation note Note Date & Type Note Facility Evaluation note Diagnosis History of total right knee replacement- Primary documented in this encounter [facility] Summary Purpose Family History No Family History Records FoundNo Family History Records FoundNo Family History Records FoundNo Family History Records Found Advance Directives No Advanced Directives Records FoundNo Advanced Directives Records FoundNo Advanced Directives Records FoundNo Advanced Directives Records Found Additional Source Comments INFORMATION SOURCE (unrecogn ized section and content) DATE CREATED AUTHOR 04/01/2022 [facility] DATE CREATED AUTHOR AUTHOR'S ORGANIZ ATION 05/10/2022 [facility] DATE CREATED AUTHOR AUTHOR'S ORGANIZ ATION 11/09/2022 [facility] DATE CREATED AUTHOR AUTHOR'S ORGANIZ ATION 02/09/2023 [facility] Reason for Visit (unrecogniz ed section and content) Reason Comments Pain Follow-up Patient is c/o right knee pain and swelling , she notes she feel the beginning of the month , she has tried IBU for pain Reason Onset Date Comments Medication Refill 04/28/2022 Reason Comments Follow-up Follow-up Patient is here for a f/u for her right knee and issues she was having with cellulitis, patient notes she is done with her antibiotic and notes her right leg feels great.she also wants to know when she can stop wearing her compression socks Care Teams (unrecognized sec tion and content) Web Architect Relationship Specialty Start Date End Date No, Physician [facility] PCP - General 04/18/22 Web Architect Relationship Specialty Start Date End Date No, Physician [facility] PCP - General 04/18/22 FOR RECORDS PERTAINING TO PATIENTS WHO ARE OR HAVE BEEN ENROLLED IN A CHEMICAL DEPENDENCY/SUBSTANCEABUSE PROGRAM, SOME INFORMATION MAY BE OMITTED. This clinical summary was aggregated from multiple sources. Caution should be exercised in using it in the provision of clinical care. This summary normalizes information from multiple sources, and as a consequence, information in this document may materially change the coding, format and clinical context of patient data. In addition, data may be omitted in some cases. CLINICAL DECISIONS SHOULD BE BASED ON THE PRIMARY CLINICAL RECORDS. [employer] [facility]. provides no warranty or guarantee of the accuracy or completeness of information in this document.
== END 2023-01-29 10:21 | disposition home or self-care (01) ==
PROVIDERS: Emergency Provider Emergency Medicine; PCP Family Medicine
DX: R07.9 Chest pain, unspecified (principal); Z87.891 Personal history of nicotine dependence; Z79.899 Other long term (current) drug therapy
CPT/HCPCS: 36415; 71045; 80048; 84484; 85027; 93005; 99285

== ENCOUNTER 2023-03-29 23:41 | Emergency (ER) | payer MEDICARE, OTHER, SELFPAY ==
[2023-03-29 23:45] VITALS: BP 168/68; PULSE 66; RESP 16; TEMP 36.6; O2SAT 98; BMI 34.9
--- OUTSIDE RECORDS SUMMARY | 2023-03-29 23:47 | XMS_ITS | CCD ---
Author Name Unknown Address [address] [place] [address] Organization [facility] Care Team Providers Care [employer] Crew Lead Name Role Phone DR MIGEL RAMSEY Consulting Unavailable FAWSHAIKH Richmond BAZAN Primary Care Unavailable FAWSHAIKH [place] BAZAN Attending Unavailable FAWBENI, H Admitting Unavailable FAWWALiliana, SHAIKH Richmond Consulting Unavailable No, Physician Primary Care Provider Unavailabl e LUIS FELIPE BUSCH Attending Unavailable NO, PHYSICIAN Primary Care Unavailable NO, PHYSICIAN Primary Care Unavailable FADLUIS FELIPE De La Vega Referring Unavailable FADALUIS FELIPE Admitting Unavailable NO, PHYSICIAN Primary Care Unavailable FADLUIS FELIPE De La [place]ega Attending Unavailable RASHAWN PEGUERO Attending Unavailable TerranceJessie Attending Unavailable TerranceJessie Attending Unavailable Terrance, Jessie Moreno Attending Unavailable Terrance, Jessie Moreno Attending Unavailable Allergies Allergy Classification Reported Allergen(s) Allergy Type Date of Onset Reaction(s) Facility (1 source) Corticosteroids Drug allergy (disorder) 1 [facility] Repository Medications Current Medications Medication Drug [...] 04/18/2022 04/28/2022 Active omega-3 acid ethyl esters (correction) 1000 mg oral capsule (1 source) omega-3 [...] Results Test Name Value Interpretation Reference Range Facility Family Medicine Office/Clini c Noteon 03-21-2023 Family Medicine Office/Clinic Note HPI Staff Micheal is a 82 year old female presenting for 2 month follow up JHOAN: 02/05/23 ER follow up HTN was started on Amlodipine 5mg Patient is here for follow up on hypertension. How often are you checking your blood pressure? yes What are your average readings? 117/63 pt has log but forgot it at home History of Present Illness pt presents today for BP follow up Review of Systems PHQ Score Initial Depression Screen Score: 0 SCORE ROS - Provider Constitutional: no fever, no chills, no sweats, no fatigue Respiratory: no shortness of breath, no cough, no orthopnea, no wheezing. Cardiovascular: no chest pain, no palpitations, no edema. Neurologic: no headache, no dizziness, no numbness, no weakness. Physical Exam Vitals & Measurements HR: 88(Peripheral) RR: 18 BP: 136/86 SpO2: 98% HT: 61 in HT: 155 cm WT: 89.3 kg WT: 196.46 lb BMI: 37.17 General: alert, no acute distress ENMT: oral mucosa moist, no pharyngeal erythema or exudate Cardiovascular: regular rate and rhythm, normal peripheral perfusion Respiratory: Lungs CTA, respirations non labored Extremities: no deformity, no trauma Neurological: oriented x 4, LOC appropriate for age, CN II-XII intact, motor strength equal & normal bilaterally, speech normal Assessment/Plan 1. Hypertension (I10: Essential (primary) hypertension) pt presents today for BP follow up. stopped taking BP meds and ended up in ER. has been taking meds ever since. pt states she feels well and she continues taking meds daily. all questions answered. RTC as needed 2. BMI 37.0-37.9, adult (Z68.37: Body mass index [BMI] 37.0-37.9, adult) BMI education complete 3. Non-smoker (Z78.9: Other specified health status) continue not smoking Follow-up No qualifying data available Problem List/Past Medical History Ongoing BMI 36.0-36.9,adult Hypertension Spider bite Historical No qualifying data Medications amLODIPine 5 mg Tab, 5 mg= 1 tab(s), Oral, Daily Allergies No Known Allergies Social History Tobacco Never (less than 100 in lifetime) Tobacco Use:. Never Smokeless Tobacco Use:. Household tobacco concerns: No., 02/05/2023 Immunizations Vaccine Date Status diphtheria/pertussi s, acel/tetanus adult 08/07/2013 Recorded tetanus-diphtheria toxoids 03/19/2004 Recorded Normal [facility] Comment on above: Result Comment: Elec tronically Signed By: Jessie Max\.br\Date and Time Signed: 03/21/23 13:39 EST ED Note-Physicianon 02-08-20 ED Note-Physician [id number] 6#1.00TIFF [facility] Cardiovascular Reporton 01-18 Cardiovascular Report [id number] 67#1.00TIFF [facility] Consultation Noteon 02-07-20 Consultation Note [id number] B2#1.00TIFF [facility] Echocardiographyon Echocardiography [id number] 03#1.00TIFF [facility] Ambulatory Visit Summaryon 04-07-2022 Ambulatory Visit Summary MICHEAL BRICE :1940 [...] 1:00 PM EST With: Jessie Max Where: [facility] Family Medicine Office/Clini c Noteon 02-05-2023 Family Medicine Office/Clinic Note HPI Staff Micheal is a 82 year old female presenting for ER follow up ER followup: Hospital: [place] Visit date: 01-29-23 Symptoms the patient presented [...] will try to obtain those results from [facility]. pt stated taking medication after ER [...] Daily, # 90 tab(s), Refills(s) 0, [facility]: [facility] #[id number], 155, cm, 02/05/23 13:30:00 EST, Height/Length Dosing, 88.8, kg, 02/05/23 13:30:00 EST, Weight Dosing cephalexin, 500 mg = 1 cap(s), Oral, q12hr, # 20 cap(s), Refills(s) 0, Pharmacy: [facility] #[id number], 155, cm, 01/03/23 10:31:00 EDT, Height/Length Dosing, [...] concerns: No., 02/05/2023 Immunizations Vaccine Date Status diphtheria/pertussi s, acel/tetanus adult 08/07/2013 Recorded tetanus-diphtheria toxoids 03/19/2004 Recorded Normal [facility] Comment on above: Result Comment: Elec tronically Signed By: Jessie Max\.br\Date and Time Signed: 02/05/23 14:00 EST ED Note-Physicianon 02-01-20 ED Note-Physician [id number] 1F#1.00TIFF Normal [facility] RAD - MISCon 01-29-2023 RAD - MISC [id number] 2E#1.00TIFF Normal [facility] Ambulatory Visit Summaryon 1 Ambulatory [...] BMI 37 Allergies No Known Allergies Normal [facility] Family Medicine Office/Clini c Noteon [...] q12hr, # 20 cap(s), Refills(s) 0, [facility]: [facility] #[id number], 155, cm, 01/03/23 10:31:00 EDT, Height/Length Dosing, 88.9, kg, 01/03/23 10:31:00 EDT, Weight Dosing 2. BMI 37.0-37.9, adult (Z68.37: Body mass index [BMI] 37.0-37.9, adult) BMI education complete Ordered: cephalexin, 500 mg = 1 cap(s), Oral, q12hr, # 20 cap(s), Refills(s) 0, [facility]acy: [facility] #[id number], 155, cm, 01/03/23 10:31:00 EDT, Height/Length Dosing, 88.9, kg, 01/03/23 10:31:00 EDT, Weight Dosing 3. Non-smoker (Z78.9: Other specified health status) continue not smoking Ordered: cephalexin, 500 mg = 1 cap(s), Oral, q12hr, # 20 cap(s), Refills(s) 0, [facility]acy: [facility] #[id number], 155, cm, 01/03/23 10:31:00 EDT, Height/Length Dosing, [...] Tobacco Use:. Household tobacco concerns: No., 01/03/2023 Normal [facility] Comment on above: Result Comment: Elec tronically Signed By: Terrance BAILON, Jessie Moreno\.br\Date and Time Signed: 01/03/23 11:29 EDT Office Visiton 11-08-2022 Follow-up visit [id number] Micheal Brice 1940 F Date Provider Department Center 11/08/2022 3848-RASHAWN PEGUERO [facility] Family History Problem Relation Age of Onset Coronary artery disease Mother Other Mother Family Status - Relation Status Age at Mother Level of Service:18203 [place] OFFICE/OUTPATIENT NEW MODERATE MDM 45-59 MINUTES Normal [facility] Vital Signs Date Time Vital Sign Value Performing Clinician Faci lity 05-09-2022 08:07-0500 Body height 157.5 cm Luis Felipe Busch MD Work Phone: [facility] 05-09-2022 08:07-0500 Body mass index (BMI) [Ratio] 37.49 kg/m2 Luis Felipe Busch MD Work Phone: [facility] 05-09-2022 08:07-0500 Body weight 92.99 kg Luis Felipe Busch MD Work Phone: [facility] 04-18-2022 08:32-0500 Body height 157.5 cm Luis Felipe Busch MD Work Phone: [facility] 04-18-2022 08:32-0500 Body mass index (BMI) [Ratio] 37.49 kg/m2 Luis Felipe Busch MD Work Phone: [facility] 04-18-2022 08:32-0500 Body weight 92.99 kg Luis Felipe Busch MD Work Phone: [facility] Encounters Encounter Date Encounter Type Care Provider Facility Start: 04-04-2023 ambulatory Jessie Carlos Facility: [facility] Start: 03-21-2023 End: 03-22-2023 ambulatory Jessie L Terrance Facility:[facility] [place] Start: 03-16-2023 ambulatory Jessie Terrance Facility:[facility] Start: 02-05-2023 End: 02-06-2023 ambulatory Jessie L Terrance Facility:[facility] [place] Start: 01-03-2023 End: 01-04-2023 ambulatory Jessie L Terrnace Facility:[facility] [place] Start: 11-08-2022 End: 11-08-2022 ambulatory RASHAWN [facility] Start: 05-09-2022 End: 05-09-2022 [facility] Start: 05-09-2022 End: 05-09-2022 Office outpatient visit 15 minutes Luis Felipe Busch MD Work Phone: [facility] Comment on above: History of total rig ht knee replacement (Primary Dx) Start: 04-28-2022 Refill Niurka Fitzgerald MA [facility] Start: 04-18-2022 End: 04-22-2022 [facility] Start: 04-18-2022 End: 04-18-2022 Office outpatient new 30 minutes Luis Felipe Busch MD Work Phone: [facility] Comment on above: History of total rig ht knee replacement (Primary Dx) Start: 03-29-2022 End: 03-30-[address] MIGEL RAMSEY Facility:[facility] Plan of Treatment Date Care Activity Detail Author Start: 08-08-2023 Tetanus vaccination Tetanus: Every 10yrs [facility] Start: 05-08-2023 End: 05-08-2023 Patient encounter procedure 05/08/2023 Office Visit Orthopedic Surgery Luis Felipe Busch MD [address] [place] [id number] [facility] Start: 05-09-2022 End: 05-09-2022 Patient encounter procedure 05/09/2022 Office Visit Orthopedic Surgery Luis Felipe Busch MD [facility] [place] [address] [facility] Start: 11-17-2021 Influenza vaccination Sequential Influenza Vaccine (#1) [facility] Start: 2007 Fall risk assessment Falls Risk Assessment [facility] Start: 2007 Pneumococcal Vaccine: Age 65+ (1 - PCV) Pneumococcal Vaccine: Age 65+ (1 - PCV) [facility] Start: 1992 Administration of herpes zoster vaccine Zoster Vaccines (1 of 2) [facility] Start: 1982 Screening for malignant neoplasm of breast Mammogram [facility] Start: 1954 Depression screening using PHQ-9 (Patient Health Questionnaire 9) score Depression Screening (PHQ-2/9) [facility] Start: 1945 History and physical examination, annual for health maintenance Wellness Visit [facility] Start: 1942 COVID-19 Vaccine (#1) COVID-19 Vaccine (#1) [facility] Start: 1940 Screening for osteoporosis Dexa Scan [facility] Payers Date Payer Category Payer Medicare [facility] ACCESS/ENHANCED/CORE PPO/RPPO [id number] 2021-Present [phone] [address] [place] [address] [id number] 2007 Medicare [id number] 1959 Unknown [id number] 1940 Unknown [id number] 1940 Unknown [id number] 1940 Unknown [id number] 1940 Unknown [id number] 1940 Unknown [id number] .727 1940 Unknown [id number] .727 1940 Unknown [id number] 1940 Unknown [id number] Private Health Insurance [id number] Social History Date Type Detail Facility Tobacco smoking status 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 Rasahwn Peguero MD Interventional Cardiology [facility] Progress note 11-08-2022 Note Date & [...] All other systems reviewed and are negative. [facility] History of Present illness Narrative 05-09-2022 Luis [...] did advise her we really want to lease picker her exercise and activity level. We will see her in a year for reevaluation. No orders of the defined types were placed in this encounter. Return in about 1 year (around 05/09/2023) for Annual physical, xrays. Note: To expedite correspondence this note was generated by [employer] voice recognition software. Some grammatical or spelling errors may occur using the system. documented in this encounter [facility] Telephone encounter Note 04-28-2022 Telephone Encounter - Niurka Fitzgerald MA - 04/28/2022 3:19 PM EST Note Date & Type Note Facility 04-28-2022 Telephone encounter Note Form atting of this note might be different from the original. Patient called with question with whether she should finish keflex , she was instructed to finish antibiotic . [facility] Note 04-28-2022 Telephone Encounter - Niurka Fitzgerald MA - 04/28/2022 3:19 PM EST Note Date & Type Note Facility 04-28-2022 Miscellaneous Notes Formattin g of this note might be different from the original. Patient called with question with whether she should finish keflex , she was instructed to finish antibiotic . documented in this encounter [facility] History of Present illness Narrative 04-18-2022 Luis [...] a ladder a little bit before New '. She did finally have x-rays done of [...] expedite correspondence this note was generated by [employer] recognition software. Some grammatical or spelling errors may occur using the system. documented in this encounter [facility] Clinical Note 03-30-2022 Note Date & Type [...] by: MIGEL RAMSEY Date: 2022-03-30 12:47 [facility] Clinical Note 03-30-2022 Note Date & [...] authenticated by: MIGEL RAMSEY Date: 2022-03-30 12:42 [facility] Evaluation note Note Date & Type Note Facility Evaluation note Diagnosis History of total right knee replacement- Primary documented in this encounter [facility] Summary Purpose Family History No Family History Records FoundNo Family History Records FoundNo Family History Records FoundNo Family History Records Found Advance Directives No Advanced Directives Records FoundNo Advanced Directives Records FoundNo Advanced Directives Records FoundNo Advanced Directives Records Found Additional Source Comments INFORMATION SOURCE (unrecogn ized section and content) DATE CREATED AUTHOR 04/01/2022 [facility] DATE CREATED AUTHOR AUTHOR'S ORGANIZ ATION 05/10/2022 [facility] DATE CREATED AUTHOR AUTHOR'S ORGANIZ ATION 11/09/2022 [facility] DATE CREATED AUTHOR AUTHOR'S ORGANIZ ATION 03/22/2023 [facility] Reason for Visit (unrecogniz ed section and [...] Care Teams (unrecognized sec tion and content) Solar [employer]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 [facility] [employer] [facility]. provides no warranty or guarantee of the accuracy or completeness of information in this document.
[2023-03-29 23:48] VITALS: O2SAT 97
[2023-03-29 23:49] VITALS: BP 196/104; O2SAT 98
[2023-03-29 23:50] VITALS: O2SAT 99
--- NOTE | 2023-03-29 23:55 | ECG_ITS ---
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
[2023-03-30] VITALS (25 sets, daily range): BP systolic 139–183; BP diastolic 63–108; PULSE 52–64; RESP 12–26; O2SAT 59–98
--- NOTE | 2023-03-30 00:35 | ED.GENADUL1 ---
HPI - General Adult General Chief complaint: Recheck/Abnormal Lab/Rx Stated complaint: hypertension Time Seen by Provider: 03/30/23 00:24 Mode of arrival: walk-in History of Present Illness HPI narrative: This 83-year-old female with a history of hypertension who is on Norvasc presents for evaluation of elevated blood pressure and abdominal pain. The patient states that she made him gravy from broth that was sitting in her refrigerator for approximately one week as well as fried potatoes for dinner. She ate around 6:30 PM and started feeling unwell around 7 PM. She is nauseated and has epigastric abdominal pain. She noted that her blood pressure was elevated and took it several times prior to coming to the emergency department. She has not vomited or had any diarrhea. She states the pain radiates into her back. She has not had any dizziness or syncope. She has not had a fever. Her daughter brought her to the emergency department and left because she is also sick. Related Data Previous Rx's Medication Instructions Recorded amlodipine 5 mg tablet (Norvasc) 5 mg PO DAILY #30 tabs 12/13/22 Allergies Allergy/AdvReac Type Severity Reaction Status Date / Time No Known Drug Allergies Allergy Verified 12/13/22 09:49 Review of Systems ROS Status of ROS 10 or more systems reviewed and unremarkable except as noted in history and below [facility] Social History Smoking status: Former smoker Exam Narrative Exam Narrative: Nurses note and vital signs reviewed and patient is not hypoxic. Blood pressure is noted to be elevated at 168/68 General: Nontoxic, alert but uncomfortable appearing elderly female, no respiratory distress- stating she feels like she is going to vomit Skin: Warm, dry, no pallor noted. There is no rash noted. Head: Normocephalic, atraumatic Eye: Normal conjunctiva, no drainage, EOMI. PERRL. No scleral icterus Ears, Nose, Mouth, and Throat: oral mucosa is moist. Cardiovascular: Regular Rate and Rhythm S1S2, pulses are brisk and equal bilaterally Respiratory: Patient is in no distress, no accessory muscle use, lungs are clear to auscultation, no wheezing, rales or rhonchi Back: non-tender, no CVA tenderness bilaterally to percussion. GI: diffusely tender with right upper quadrant tenderness and positive Trimble sign, normal bowel sounds, no pulsatile masses appreciated Musculoskeletal: The patient has no evidence of calf tenderness, no pitting edema, symmetrical pulses noted bilaterally Neurological: A&O x4, normal speech Psychiatric: Cooperative Constitutional Vital Signs, click to edit/add: Last Vital Signs Temp 98 F 03/29/23 23:45 Pulse 62 03/30/23 03:01 Resp 15 03/30/23 03:01 BP 139/108 H 03/30/23 03:01 Pulse Ox 96 03/30/23 03:01 O2 Del Method Room Air 03/29/23 23:45 Course Vital Signs Vital signs: Vital Signs Temperature 98 F 03/29/23 23:45 Pulse Rate 66 03/29/23 23:45 Respiratory Rate 16 03/29/23 23:45 Blood Pressure 168/68 H 03/29/23 23:45 Pulse Oximetry 98 03/29/23 23:45 Oxygen Delivery Method Room Air 03/29/23 23:45 Temperature 98 F 03/29/23 23:45 Pulse Rate 62 03/30/23 03:01 Respiratory Rate 15 03/30/23 03:01 Blood Pressure 139/108 H 03/30/23 03:01 Pulse Oximetry 96 03/30/23 03:01 Oxygen Delivery Method Room Air 03/29/23 23:45 Medical Decision Making MDM Narrative Medical decision making narrative: This 83-year-old female presents for evaluation of epigastric abdominal pain/generalized abdominal pain that started approximately 30-45 minutes after eating ham gravy and fried potatoes. She was concerned that she may have some degree of food poisoning because the brought from the ham had been in the refrigerator for approximately one week. She denied any chest pain. She was concerned that her blood pressure was elevated. It was notably elevated upon arrival but she was also in a moderate degree of pain. She was tender in the epigastrium and right upper quadrant. She states the pain at times radiates into her back. She was nauseated but did not vomit. Adriane EKG done upon arrival was sinus rhythm at 56 bpm with no acute changes. An IV was placed and she was medicated with IV fluids, Toradol and Zofran and Pepcid and a gastrointestinal cocktail. On reevaluation she was feeling better. She still had some degree of pain and was medicated with half a tablet of [place]. She has a mildly elevated white count at 14. Electrolytes, liver function tests, lactic acid, lipase and troponin are normal. CT scan of abdomen and pelvis shows a dilated gallbladder without gallstones or pericholecystic fluid. This is consistent with her physical exam and presentation after eating a fatty meal of biliary colic. This was discussed with her. She states that she has not been eating fatty food recently and the ham gravy and fried potatoes were treated for her. I signed her that she may need an outpatient ultrasound and encouraged her to follow up closely with her family physician and return to the emergency department for worsening pain, nausea vomiting, fever or any concerns. Her vital signs have been stable in emergency department and prior to discharge blood pressure was in the 130s over 100s which she was comfortable with. Medical Records Medical records narrative: [place] [address] CT Scan Report Signed Patient: MICHEAL BRICE MR#: [id number] : 1940 Acct:[id number] Age/Sex: 83 / F ADM Date: 03/29/23 Loc: ER Attending Dr: Ordering Physician: Linda Logan Date of Service: 03/30/23 Procedure(s): CT abdomen pelvis w con Accession Number(s): [id number] cc: ANTONIO SEAY ~ The [address] [address] Patient Name: MICHEAL BRICE MRN: [id number] date: 1940 Sex: F Assigned Patient Location: ER Current Patient Location: ER Accession/Order Number: [id number] Exam Date: 03/30/2023 01:24 Report Date: 03/30/2023 02:40 At the request of: LINDA LOGAN Procedure: CT abdomen pelvis w con EXAM: CT abdomen pelvis w con HISTORY: upper abd pain COMPARISON: Abdominal x-rays, 01/20/2021. TECHNIQUE: IV contrast enhanced CT imaging the abdomen and pelvis was performed using 100 mL of Omnipaque 300 intravenous contrast. Sagittal and coronal reconstructions are provided. Dose reduction techniques were achieved by using automated exposure control and/or adjustment of mA and/or kV according to patient size and/or use of iterative reconstruction technique. FINDINGS: CT ABDOMEN: Mild bibasilar linear fibrotic scarring is noted. The heart is top normal in size. There is no pericardial effusion. The gallbladder is mildly distended without calcified stones, wall thickening or pericholecystic fluid. The liver, pancreas, spleen, adrenal glands, kidneys, stomach and small bowel appear unremarkable. There are mild aortic and iliac arterial calcifications without aneurysm. A small fat-containing umbilical hernia is noted. CT PELVIS: The pelvic small bowel loops and urinary bladder are unremarkable. Sigmoid diverticulosis is noted. There is a suggested septated uterus on image 100 with a possible fibroid in the lateral right uterine body. An enlarged node is seen medial to the right common femoral vein, measuring 1.5 x 1.2 cm on image 116. No inflammatory fat stranding, free fluid, loculated fluid or free air is seen in the abdomen or pelvis. No acute osseous abnormality or suspicious bony lesion is seen. CT/CT abdomen pelvis w con IMPRESSION: 1. Nonspecific mild gallbladder distention could reflect a prolonged interval since the patient's last meal. No cholelithiasis or CT findings of cholecystitis are seen. 2. No acute findings in the abdomen or pelvis to explain the patient's upper abdominal pain. Chronic changes are described abov Lab Data Lab results reviewed: Yes I reviewed the patient's lab results Labs: Lab Results 03/30/23 Range/Units 00:00 WBC 14.0 H (4.0-11.0) 10^3/uL RBC 4.24 (4.20-5.40) 10^6/uL Hgb 12.1 (12.0-16.0) g/dL Hct 38.5 (36.0-48.0) % MCV 90.8 (81.0-99.0) fL MCH 28.5 (26.7-34.0) pg MCHC 31.4 (29.9-35.2) g/dL RDW 12.2 (11.0-15.0) % Plt Count 171 (150-450) 10^3/uL MPV 12.0 (9.5-13.5) fL Seg Neuts % (Manual) 52.0 Lymphocytes % (Manual) 18.0 L (20.5-60.0) % Atypical Lymphs % (Man) 24.0 % Monocytes % (Manual) 1.0 L (1.7-12.0) % Eosinophils % (Manual) 3.0 (0.9-7.0) % Basophils % (Manual) 2.0 (0.2-2.0) % Neutrophils # (Manual) 7.28 H (1.4-6.5) 10^3/uL Lymphocytes # (Manual) 2.52 (1.20-3.80) 10^3/uL Abs Atypical Lymphs Man 3.36 Monocytes # (Manual) 0.14 L (0.30-0.80) 10^3/uL Eosinophils # (Manual) 0.42 (0.00-0.70) 10^3/uL Basophils # (Manual) 0.28 H (0.00-0.10) 10^3/uL Sodium 137 (136-145) mmol/L Potassium 4.0 (3.5-5.1) mmol/L Chloride 102 (98-107) mmol/L Carbon Dioxide 28.9 (21.0-32.0) mmol/L Anion Gap 10.1 BUN 19.0 H (7.0-18.0) mg/dL Creatinine 0.76 (0.55-1.02) mg/dL Est GFR ( Amer) >60 (>=60) Est GFR (Non-Af Amer) >60 (>=60) BUN/Creatinine Ratio 25.0 Glucose 118 H (74-106) mg/dL Lactate 0.8 (0.4-2.0) mmol/L Calcium 9.4 (8.5-10.1) mg/dL Total Bilirubin 0.3 (0.2-1.0) mg/dL AST 14 L (15-37) U/L ALT 26 (14-59) U/L Alkaline Phosphatase 104 (46-116) U/L Troponin I High Sens 4.4 (4.0-51.3) pg/mL Total Protein 6.9 (6.4-8.2) g/dL Albumin 3.7 (3.4-5.0) g/dL Globulin 3.2 g/dL Albumin/Globulin Ratio 1.2 Lipase 22.0 (16.0-77.0) U/L ECG Data Attestation: I personally reviewed and interpreted this ECG as follows: (Sinus bradycardia 56 beats for minute, normal axis, normal intervals, no acute ST segment elevation or T-wave inversion) Discharge Plan Discharge Chief Complaint: Recheck/Abnormal Lab/Rx Clinical Impression: Biliary colic Patient Disposition: Home, Self-Care Time of Disposition Decision: 02:55 Condition: Good Prescriptions / Home Meds: No Action amlodipine [Norvasc] 5 mg tablet 5 mg PO DAILY Qty: 30 0RF Instructions: Biliary Colic (ED), Low Fat Diet (ED) Stand Alone Forms: Portal Instructions Referrals: ANTONIO SEAY [Primary Care Provider] - 1 week Discharge Date/Time: 03/30/23 03:26
[2023-03-30 00:46] LABS: Hematocrit 38.5 % (36.0-48.0); Hemoglobin 12.1 g/dL (12.0-16.0); Mean Corpuscular HGB Conc 31.4 g/dL (29.9-35.2); Mean Corpuscular Hemoglobin 28.5 pg (26.7-34.0); Mean Corpuscular Volume 90.8 fL (81.0-99.0); Platelet Count 171 10^3/uL (150-450); Red Blood Count 4.24 10^6/uL (4.20-5.40); Red Cell Distribution Width 12.2 % (11.0-15.0)
[2023-03-30] MEDS: FAMOTIDINE/PF 20 MG/2 ML VIAL IV (00:53)
[2023-03-30] MEDS: KETOROLAC TROMETHAMINE 30 MG/ML VIAL 15 MG IVP (00:53)
[2023-03-30] MEDS: ONDANSETRON PF 4 MG/2 ML VIAL IV (00:53)
[2023-03-30 00:57] LABS: Alanine Aminotransferase 26 U/L (14-59); Albumin Globulin Ratio 1.2; Albumin Level 3.7 g/dL (3.4-5.0); Alkaline Phosphatase 104 U/L (46-116); Anion Gap 10.1; Aspartate Amino Transferase 14 U/L (15-37); Bilirubin Total 0.3 mg/dL (0.2-1.0); Calcium 9.4 mg/dL (8.5-10.1); Carbon Dioxide 28.9 mmol/L (21.0-32.0); Chloride 102 mmol/L (98-107); Estimated GFR (African America >60 (>=60); Estimated GFR (Non-African Ame >60 (>=60); Globulin 3.2 g/dL; Glucose 118 mg/dL (74-106); Sodium 137 mmol/L (136-145); Total Protein 6.9 g/dL (6.4-8.2)
[2023-03-30 00:59] LABS: Lactate/Lactic Acid 0.8 mmol/L (0.4-2.0); Troponin I High Sensitivity 4.4 pg/mL (4.0-51.3)
[2023-03-30] MEDS: lidocaine HCL 15 ML, MAG HYDROX/ALUMINUM HYD/SIMETH 30 ML, HYOSCYAMINE SULFATE 0.25 MG PO (01:09)
--- NOTE | 2023-03-30 01:25 | PC.NURSE ---
Patient lying in bed, very uncomfortable appearing. Patient states that the pain she is having is mostly epigastric, but is all over . She is not able to qualify it very specifically, but says it is somewhat crampy, and just hurts . She has been medicated with everything that has been ordered up to this point, and says there has been very minimal improvement from the GI cocktail. She denies other needs at this time. Will continue to monitor.
[2023-03-30 01:39] LABS: Lymphocytes Absolute Manual 2.52 10^3/uL (1.20-3.80); Segmented Neut Absolute Manual 7.28 10^3/uL (1.4-6.5)
[2023-03-30 01:40] LABS: Atypical Lymphocytes Abs Man 3.36; Basophils Abs Manual 0.28 10^3/uL (0.00-0.10); Eosinophils Absolute Manual 0.42 10^3/uL (0.00-0.70); Monocytes Absolute Manual 0.14 10^3/uL (0.30-0.80)
--- NOTE | 2023-03-30 02:13 | PC.NURSE ---
Patient resting in bed, more comfortable appearing at this time. She states that her abdominal pain is better, just a small amount of epigastric pain remains. She is concerned that her blood pressure is still elevated. She is given a warm blanket. Denies other needs at this time. Will continue to monitor.
[2023-03-30] MEDS: HYDROCODONE/ACET 5-325 MG TABLET 0.5 TAB PO (03:14)
== END 2023-03-30 03:26 | disposition home or self-care (01) ==
PROVIDERS: Emergency Provider Emergency Medicine; PCP Family Medicine
DX: K80.50 Calculus of bile duct without cholangitis or cholecystitis without obstruction (principal); Z87.891 Personal history of nicotine dependence
CPT/HCPCS: 36415; 74177; 80053; 83605; 83690; 84484; 85007; 85027; 93005; 96374; 96375; 99285; J1885; J2405; Q9967

== ENCOUNTER 2023-04-04 08:59 | Outpatient (OUT) | payer MEDICARE, OTHER, SELFPAY ==
--- OUTSIDE RECORDS SUMMARY | 2023-04-04 09:03 | XMS_ITS | CCD ---
Author Name Unknown Address [address] [place] [address] Organization [facility] Care Team Providers Care Wood Heel Attacher Name Role Phone DR MIGEL RAMSEY Consulting [...] source) Corticosteroids Drug allergy (disorder) 1 [facility] Medications Current Medications Medication Drug Class(es) [...] 04/18/2022 04/28/2022 Active omega-3 acid ethyl esters (skilled nursing) 1000 mg oral capsule (1 source) omega-3 [...] 08/07/2013 Recorded tetanus-diphtheria toxoids 03/19/2004 Recorded Normal [facility] Comment on above: Result Comment: Elec tronically Signed By: Jessie Max\.br\Date and Time Signed: 03/21/23 13:39 EST ED Note-Physicianon 02-08-20 ED Note-Physician [id number] 6#1.00TIFF [facility] Cardiovascular Reporton 01-18 Cardiovascular Report [id number] 67#1.00TIFF [facility] Consultation Noteon 02-07-20 Consultation Note [id number] B2#1.00TIFF [facility] Echocardiographyon Echocardiography [id number] 03#1.00TIFF [facility] Ambulatory Visit Summaryon 04-07-2022 Ambulatory Visit Summary [...] 1:00 PM EST With: Jessie Max Where: [facility] Family Medicine Office/Clini c Noteon 02-05-2023 Family Medicine Office/Clinic Note HPI Staff Micheal is a 82 year old female presenting for ER follow up ER followup: Hospital: [facility] Visit date: 01-29-23 Symptoms the patient presented [...] will try to obtain those results from [facility]. pt stated taking medication after ER [...] Daily, # 90 tab(s), Refills(s) 0, Pharmacy: [facility] #[id number], 155, cm, 02/05/23 13:30:00 EST, Height/Length Dosing, 88.8, kg, 02/05/23 13:30:00 EST, Weight Dosing cephalexin, 500 mg = 1 cap(s), Oral, q12hr, # 20 cap(s), Refills(s) 0, Pharmacy: [facility] #[id number], 155, cm, 01/03/23 10:31:00 EDT, Height/Length Dosing, [...] 08/07/2013 Recorded tetanus-diphtheria toxoids 03/19/2004 Recorded Normal [facility] Comment on above: Result Comment: Elec tronically Signed By: Jessie Max\.br\Date and Time Signed: 02/05/23 14:00 EST ED Note-Physicianon 02-01-20 ED Note-Physician [id number] 1F#1.00TIFF Normal [facility] RAD - MISCon 01-29-2023 RAD - MISC [id number] 2E#1.00TIFF Normal [facility] Ambulatory Visit Summaryon 1 Ambulatory Visit Summary [...] BMI 37 Allergies No Known Allergies Normal [facility] Family Medicine Office/Clini c Noteon 01-03-2023 Family [...] q12hr, # 20 cap(s), Refills(s) 0, Pharmacy: [facility] #[id number], 155, cm, 01/03/23 10:31:00 EDT, Height/Length Dosing, 88.9, kg, 01/03/23 10:31:00 EDT, Weight Dosing 2. BMI 37.0-37.9, adult (Z68.37: Body mass index [BMI] 37.0-37.9, adult) BMI education complete Ordered: cephalexin, 500 mg = 1 cap(s), Oral, q12hr, # 20 cap(s), Refills(s) 0, Pharmacy: [facility] #[id number], 155, cm, 01/03/23 10:31:00 EDT, Height/Length Dosing, 88.9, kg, 01/03/23 10:31:00 EDT, Weight Dosing 3. Non-smoker (Z78.9: Other specified health status) continue not smoking Ordered: cephalexin, 500 mg = 1 cap(s), Oral, q12hr, # 20 cap(s), Refills(s) 0, Pharmacy: [facility] #[id number], 155, cm, 01/03/23 10:31:00 EDT, Height/Length Dosing, [...] Use:. Household tobacco concerns: No., 01/03/2023 Normal [facility] Comment on above: Result Comment: Elec tronically Signed By: Terrance BAILON, Jessie Moreno\.br\Date and Time Signed: 01/03/23 11:29 EDT Office Visiton 11-08-2022 Follow-up visit [id number] Micheal Brice 1940 F Date Provider Department Center 11/08/2022 3848-RASHAWN PEGUERO [facility] Family History Problem Relation Age of Onset Coronary artery disease Mother Other Mother Family Status - Relation Status Age at Mother Level of Service:60637 [place] OFFICE/OUTPATIENT NEW MODERATE MDM 45-59 MINUTES Normal [facility] Vital Signs Date Time Vital Sign Value Performing Clinician Faci lity 05-09-2022 08:07-0500 Body height 157.5 cm Luis Felipe Busch MD Work Phone: [facility] 05-09-2022 08:07-0500 Body mass index (BMI) [Ratio] 37.49 kg/m2 Luis Felipe Busch MD Work Phone: [facility] 05-09-2022 08:07-0500 Body weight 92.99 kg Luis Felipe Busch MD Work Phone: [facility] 04-18-2022 08:32-0500 Body height 157.5 cm Luis Felipe Busch MD Work Phone: [facility] 04-18-2022 08:32-0500 Body mass index (BMI) [Ratio] 37.49 kg/m2 Luis Felipe Busch MD Work Phone: [facility] 04-18-2022 08:32-0500 Body weight 92.99 kg Luis Felipe Busch MD Work Phone: [facility] Encounters Encounter Date Encounter Type Care Provider Facility Start: 04-04-2023 ambulatory Jessie Carlos Facility: [facility] Start: 03-21-2023 End: 03-22-2023 ambulatory Jessie L Terrance Facility:[facility] Start: 03-16-2023 ambulatory Jessie Terrance Facility:[facility] Start: 02-05-2023 End: 02-06-2023 ambulatory Jessie L Terrance Facility:[facility] Start: 01-03-2023 End: 01-04-2023 ambulatory Jessie L Terrance Facility:[facility] Start: 11-08-2022 End: 11-08-2022 ambulatory RASHAWN [facility] Start: 05-09-2022 End: 05-09-2022 [facility] Start: 05-09-2022 End: 05-09-2022 Office outpatient visit 15 minutes Luis Felipe Busch MD Work Phone: [facility] Comment on above: History of total rig ht knee replacement (Primary Dx) Start: 04-28-2022 Refill Niurka Fitzgerald MA [facility] Start: 04-18-2022 End: 04-22-2022 [facility]ulatory [facility] Start: 04-18-2022 End: 04-18-2022 Office outpatient new 30 minutes Luis Felipe Busch MD Work Phone: [facility] Comment on above: History of total rig ht knee replacement (Primary Dx) Start: 03-29-2022 End: 03-30-[address] MIGEL RAMSEY Facility:[facility] Plan of Treatment Date Care Activity Detail Author Start: 08-08-2023 Tetanus vaccination Tetanus: Every 10yrs [facility] Start: 05-08-2023 End: 05-08-2023 Patient encounter procedure 05/08/2023 Office Visit Orthopedic Surgery Luis Felipe Busch MD [address] [place] [id number] [facility] Start: 05-09-2022 End: 05-09-2022 Patient encounter procedure 05/09/2022 Office Visit Orthopedic Surgery Luis Felipe Busch MD [facility] [place] [address] [facility] Start: 11-17-2021 Influenza vaccination Sequential Influenza Vaccine (#1) [facility] Start: 2007 Fall risk assessment Falls Risk Assessment [facility] Start: 2007 Pneumococcal Vaccine: Age 65+ (1 - PCV) Pneumococcal Vaccine: Age 65+ (1 - PCV) [facility] Start: 1992 Administration of herpes zoster vaccine Zoster Vaccines (1 of 2) [facility] Start: 1982 Screening for malignant neoplasm of breast Mammogram [facility] Start: 1954 Depression screening using PHQ-9 (Patient Health Questionnaire 9) score Depression Screening (PHQ-2/9) [facility] Start: 1945 History and physical examination, annual for health maintenance Wellness Visit [facility] Start: 1940 COVID-19 Vaccine (#1) COVID-19 Vaccine (#1) [facility] Start: 1940 Screening for osteoporosis Dexa Scan [facility] Payers Date Payer Category Payer Medicare [facility] ACCESS/ENHANCED/CORE PPO/RPPO [id number] 2021-Present [phone] [address] [place] [address] [id number] 2007 Medicare [id number] 1957 Unknown [id number] 1940 Unknown [id number] 1940 Unknown [id number] 1940 Unknown [id number] 1940 Unknown [id number] 1940 Unknown [id number] .727 1940 Unknown [id number] .727 1940 Unknown [id number] 1940 Unknown [id number] Private Health Insurance [id number] Social History Date Type Detail Facility Tobacco 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 Rashawn Peguero MD Interventional Cardiology [facility] Progress note 11-08-2022 Note Date & [...] All other systems reviewed and are negative. [facility] History of Present illness Narrative 05-09-2022 Luis [...] did advise her we really want to cone picker her exercise and activity level. We will see her in a year for reevaluation. No orders of the defined types were placed in this encounter. Return in about 1 year (around 05/09/2023) for Annual physical, xrays. Note: To expedite correspondence this note was generated by [employer] voice recognition software. Some grammatical or spelling errors may occur using the system. documented in this encounter [facility] Telephone encounter Note 04-28-2022 Telephone Encounter - Niurka Fitzgerald MA - 04/28/2022 3:19 PM EST Note Date & Type Note Facility 04-28-2022 Telephone encounter Note Form atting of this note might be different from the original. Patient called with question with whether she should finish keflex , she was instructed to finish antibiotic . [facility] Note 04-28-2022 Telephone Encounter - Niurka Fitzgerald MA - 04/28/2022 3:19 PM EST Note Date & Type Note Facility 04-28-2022 Miscellaneous Notes Formattin g of this note might be different from the original. Patient called with question with whether she should finish keflex , she was instructed to finish antibiotic . documented in this encounter [facility] History of Present illness Narrative 04-18-2022 [...] expedite correspondence this note was generated by [employer]OCK[employer] recognition software. Some grammatical or spelling errors may occur using the system. documented in this encounter [facility] Clinical Note 03-30-2022 Note Date & [...] by: MIGEL RAMSEY Date: 2022-03-30 12:47 [facility] Clinical Note 03-30-2022 Note Date & Type [...] authenticated by: MIGEL RAMSEY Date: 2022-03-30 12:42 [facility] Evaluation note Note Date & Type Note Facility Evaluation note Diagnosis History of total right knee replacement- Primary documented in this encounter [facility] Summary Purpose Family History No Family History Records FoundNo Family History Records FoundNo Family History Records FoundNo Family History Records Found Advance Directives No Advanced Directives Records FoundNo Advanced Directives Records FoundNo Advanced Directives Records FoundNo Advanced Directives Records Found Additional Source Comments INFORMATION SOURCE (unrecogn ized section and content) DATE CREATED AUTHOR 04/01/2022 [facility] DATE CREATED AUTHOR AUTHOR'S ORGANIZ ATION 05/10/2022 [facility] DATE CREATED AUTHOR AUTHOR'S ORGANIZ ATION 11/09/2022 [facility] DATE CREATED AUTHOR AUTHOR'S ORGANIZ ATION 03/22/2023 [facility] Reason for Visit (unrecogniz ed section and [...] Care Teams (unrecognized sec tion and content) Wood Heel Attacher Relationship Specialty Start Date End Date No, Physician [facility] PCP - General 04/18/22 Wood Heel Attacher Relationship Specialty Start Date End Date No, Physician [facility] PCP - General 04/18/22 FOR RECORDS [...] BE BASED ON THE PRIMARY CLINICAL RECORDS. [facility] leemail [facility]. provides no warranty or guarantee of the accuracy or completeness of information in this document.
--- NOTE | 2023-04-04 09:04 | US_ITS ---
The [address] [address] Patient Name: MICHEAL BRICE MRN: [id number] date: 1940 Sex: F Assigned Patient Location: US Current Patient Location: US Accession/Order Number: [id number] Exam Date: 04/04/2023 09:05 Report Date: 04/04/2023 10:04 At the request of: NON-STAFF PHYSICIAN Procedure: US abdomen complete EXAMINATION: US abdomen complete HISTORY: Right Upper Quadrant Pain COMPARISON: CT 03/30/2023 FINDINGS: The liver measures 16.7 cm in length. Normal in contour and echotexture with no focal mass. Hepatopedal flow in the main portal vein. The gallbladder is normal in size. The wall is thickened measuring up to 4.2 mm. Multiple echogenic foci measuring up to 1.6 cm, cholelithiasis. The common bile duct measures 5.9 mm, normal. The visualized pancreas is normal The right kidney is normal measuring 10.5 x 6.1 x 4.4 cm. The left kidney is normal measuring 10.8 x 5.1 x 5.7 cm The visualized aorta and IVC are normal. The spleen measures 9.8 cm. Echogenic foci likely representing prior granulomatous process Identified along the posterior urinary bladder wall is a 1.8 x 0.8 x 0.6 cm area of soft tissue echogenicity, indeterminate US/US abdomen complete IMPRESSION: Gallbladder wall thickening suggesting cholecystitis with underlying cholelithiasis 1.8 cm urinary bladder soft tissue echogenicity mass of unknown etiology Electronically authenticated by: HENRIK WALSH Date: 04/04/2023 10:04
== END 2023-04-04 09:00 | disposition home or self-care (01) ==
LOC: US 08:59
PROVIDERS: PCP Family Medicine
DX: R10.11 Right upper quadrant pain (principal); K81.9 Cholecystitis, unspecified
CPT/HCPCS: 76700

== ENCOUNTER 2023-06-28 08:53 | Outpatient (OUT) | payer MEDICARE, OTHER, SELFPAY ==
--- NOTE | 2023-06-28 08:58 | US_ITS ---
The [address] [address] Patient Name: MICHEAL BRICE MRN: [id number] date: 1940 Sex: F Assigned Patient Location: US Current Patient Location: Accession/Order Number: [id number] Exam Date: 06/28/2023 09:30 Report Date: 06/29/2023 06:39 At the request of: CAMILA WILBURN Procedure: US chest EXAM: US chest HISTORY: Mass Upper Right Shoulder COMPARISON: None. TECHNIQUE: Percutaneous ultrasound FINDINGS: Thinly encapsulated 7.7 x 6.9 x 1.3 cm fatty mass within subcutaneous fat of left upper back/shoulder region corresponding to patient's palpable lump. No appreciable soft tissue component or abnormal vascularity. US/US chest IMPRESSION: 1. Fatty mass favoring a benign lipoma corresponds to patient's palpable lump. Ultrasound-guided tissue can be performed if clinically indicated. Electronically authenticated by: MIGEL RAMSEY Date: 06/29/2023 06:39
--- OUTSIDE RECORDS SUMMARY | 2023-06-28 09:15 | XMS_ITS | CCD ---
Author Organization [facility] Care Team Providers Care Livestock Inspector Name Role Phone DR MIGEL RAMSEY Consulting Unavailable FAWWAD, ARAIZA H Primary Care Unavailable FAWWAD, ARAIZA H Attending Unavailable FAWWAD, ARAIZA H Admitting Unavailable FAWWAD, ARAIZA H Consulting Unavailable No, Physician Primary Care Provider Unavailabl e FADA, LUIS FELIPE LIRIANO Attending Unavailable NO, PHYSICIAN Primary Care Unavailable NO, PHYSICIAN Primary Care Unavailable FADLUIS FELIPE De La [place]ega Referring Unavailable FADA, LUIS FELIPE LIRIANO Admitting Unavailable NO, PHYSICIAN Primary Care Unavailable FADA, LUIS FELIPE LIRIANO Attending Unavailable RASHAWN CACERES Attending Unavailable Terrance, Jessie Moreno Primary Care Physician JESSIE WILBURN Primary Care Unavailable OLEASAW Consulting Unavailable GHAZARIANKAREEN Attending Unavailable GHAZARIAN KAREEN Admitting Unavailable JIMMIE, KIA A Admitting Unavailable JIMMIE, KIA A Attending Unavailable Terrance, Jessie Moreno Admitting Unavailable Terrance, Jessie Moreno Attending Unavailable JIMMIE, KIA A Attending Unavailable Terrance, Jessie Moreno Attending Unavailable Terrance, Jessie Moreno Attending Unavailable JIMMIE, KIA A Attending Unavailable Terrance, Jessie L Attending Unavailable Terrance, Jessie L Attending Unavailable Terrance, Jessie L Attending Unavailable Allergies Allergy Classification Reported Allergen(s) Allergy Type Date of Onset Reaction(s) Facility (1 source) Corticosteroids Drug allergy (disorder) 1 [facility] Repository Medications Current Medications Medication Drug Class(es) Dates Sig (Normalized) Sig (Original) amLODIPine 5 mg oral tablet (1 source) Dihydropyridine Calcium Channel Neto Start: 03-21-2023 End: 03-15-2024 take 1 tablet by mouth once daily amLODIPine 5 mg Tab 5 mg = 1 tab(s), Oral, Daily, X 90 day(s), # 90 tab(s), Refills(s) 3, Pharmacy: [facility], 155, cm, 03/21/23 13:10:00 EST, Height/Length Dosing, 89.3, kg, 03/21/23 13:10:00 EST, Weight Dosing Start Date: 03/21/23 Stop Date: 03/15/24 Status: Ordered cephalexin 500 mg oral capsule (2 sources) Cephalosporin Antibacterial Start: 04-18-2022 End: 04-28-2022 take 1 capsule by mouth four times daily cephALEXin (KEFLEX) 500 MG capsule Take 1 (one) capsule (500 mg total) by mouth 4 (four) times a day for 10 days . 40 capsule 1 04/18/2022 04/28/2022 Active omega-3 acid ethyl esters (care home) 1000 mg oral capsule (1 source) omega-3 acid ethyl esters (LOVAZA) 1 gram capsule Take 2 (two) capsules (2 g total) by mouth 2 (two) times a day . 0 Active terbinafine hydrochloride 10 mg/ml topical cream (1 source) Allylamine Antifungal Start: 03-30-2023 Lamisil AT 1% Cream 1 ashwini, Topical, BID, 12 gram, Refill(s) 0, [id number], 155, cm, 03/30/23 10:41:00 EST, Height/Length Dosing, 87.6, kg, 03/30/23 10:41:00 EST, Weight Dosing Start Date: 03/30/23 Status: Ordered vitamin b12 1 mg/ml oral solution (3 [...] Active Problems Problem Classification Problem Date Documented Date Episodic/Chronic Abdominal pain (1 source) Epigastric pain; Translations: [Epigastric pain] Onset: 06-20-2023 Episodic Biliary tract disease (2 sources) Other cholelithiasis without obstruction; Translations: [Calculus of gallbladder with acute cholecystitis without obstruction] Onset: 06-20-2023 Episodic Essential hypertension (1 source) Hypertensive disorder 02-05-2023 Chronic Nonspecific chest pain (2 sources) Chest pain, unspecified; Translations: [Chest pain, unspecified] Onset: 11-08-2022 Episodic Other connective tissue disease (2 sources) History of right total knee replacement; Translations: [Presence of right artificial knee joint] Chronic Other injuries and conditions due to external causes (1 source) Spider bite wound 01-03-2023 Episodic Other nutritional; endocrine; and metabolic disorders (1 source) Body mass index 30+ - obesity 02-05-2023 Chronic Residual codes; unclassified (2 sources) Pain, unspecified; Translations: [Pain, unspecified] Onset: 04-18-2022 Episodic Residual codes; unclassified (2 sources) Pain Onset: 04-18-2022 Episodic Results Test Name Value Interpretation Reference [facility] 06-26-19 [facility] Case Information Case Priority: None Programs: -- Referral Source: Slot Floorperson Referral Reason: Care coordination Case Type: Transition Care Management Risk Score: -- Case Status: New (June 26, 2023) Date Assigned: June 26, 2023 Assigned By: Steve Nair Date Enrolled: -- Assigned Primary Personnel: Steve Nair Assigned Secondary Personnel: -- Case Physician: Jessie Max Ongoing BMI 36.0-36.9,adult Cerumen impaction Hypertension Spider bite Historical No qualifying data Procedure/Surgical History Ankle, Bowel, Cataract, Finger, Knee replacement, Stomach. Home Medications Acidophilus Probiotic Blend, 1 cap(s), Oral, Daily amLODIPine 5 mg Tab, 5 mg= 1 tab(s), Oral, Daily, 3 refills Lamisil AT 1% Cream, 1 ashwini, Topical, BID Allergies No Known Allergies Social History Alcohol - Denies Alcohol Use, 04/04/2023 Tobacco - Denies Tobacco Use, 04/04/2023 Never (less than 100 in lifetime) Tobacco Use:. Never Smokeless Tobacco Use:. Household tobacco concerns: No., 04/23/2023 Family History CABG - Coronary artery bypass graft: Negative: Mother, Father, Sister and Brother. Diabetes mellitus type 2: Sister. Open heart surgery: Mother. Screenings and Assessments No screenings and assessments have been documented. Goals and Interventions Care Plan Progress Note Admit Date: 06/20/23 [facility] Date of Discharge: 06/22/23 Follow-up appointment scheduled? yes, 06/27/23 at 1040 with PCP, Alexandro Wilburn Did you understand your discharge instructions? yes Are you able to follow them? yes Did you receive new medications? to take probiotic Have you filled the Rx's? yes Are you taking them as prescribed? yes Are you having difficulty eating or swallowing your no Are you having any stomach upset, diarrhea or constipation? upon d/c was having diarrhea but it has tapered off How are you sleeping? good Are you having any pain? none Do you have everything you need at home to care for yourself? yes Do you have Home Health? no Called patient for initial Transitional Care Management Program call. Readmission risk unavailable. Reviewed d/c instructions and dx of acute cholecystitis, leukocytosis, HTN, mild acute renal failure. Patient underwent cholecystectomy on 06/20/23. Medications reconciled with patient, ehr, and d/c list. Reviewed purpose and side effects of new medications with patient. Patient stated she is doing really good. Notes she had diarrhea upon d/c but it has been tapering off. This am her stool was loose, but better. Patient notes she has 4 small incisions from choley. Notes suture tape remains intact. Patient notes reports no signs or symptoms of infection. Patient notes the navel incision is a bit swollen, denies drainage, warmth, redness. CN reviewed signs and symptoms to watch for and report to provider. Patient is walking as instructed, states doing well. Denies any urinary system issues. Patient is eating and drinking good. CN explained TCM program and gave CN contact number. Reviewed the following appointment with patient; 06/27/23 tcm f/u with PCP at 1040. Patient denies any further questions or concerns. Communication Events Date: June 26, 2023 Method: Phone call Type: Outbound Duration (min): 6 Outcome: Case discussion Contact Type: administrative assistant coordinator Contact Name: Steve Nair Notes: TCM#1-see tcm note. Created By: Steve Nair Date: June 26, 2023 Method: Phone call Type: Outbound Duration (min): 1 Outcome: Left message-voicemail Contact Type: administrative assistant coordinator Contact Name: Steve Nair Notes: TCM#1- LM on for return call. Created By: Steve Nair [facility] Auth for Release of Medical Recordson 06-25-2023 Auth for Release of Medical Records [id number] #[id number] [facility] Basic Metabolic Profon 06-21 Anion gap [Moles/Vol] 8 mmol/L Low 9-17 [facility] Comment on above: Performed By: #### C DP, BMP ####[facility] Yrn2012 [facility] [place] [address] Lab Director: Willy Henson MD BUN/CRE Ratio 27 High 9-[address] [facility] Comment on above: Performed By: #### C DP, BMP ####[facility] [id number] [place] [address] Lab Director: Willy Henson MD Calcium [Mass/Vol] 9.0 mg/dL Normal 8.6-10.4 [facility] Comment on above: Performed By: #### C DP, BMP ####[facility] [id number] [place] [address] Lab Director: Willy Hesnon MD Chloride [Moles/Vol] 108 mmol/L High 98-[address] [facility] Comment on above: Performed By: #### C DP, BMP ####[facility] [id number] [facility] [place] [place] [address] Lab Director: Willy Henson MD CO2 [Moles/Vol] 26 mmol/L Normal 20-31 [facility] Comment on above: Performed By: #### C DP, BMP ####[facility] [id number] [facility] [place] [address] Lab Director: Willy Henson MD Creatinine [Mass/Vol] 0.7 mg/dL Normal 0.5-0.9 [facility] Comment on above: Performed By: #### C DP, BMP ####[facility] Pre[address] [place] [address] lab Director: Willy Henson MD GFR/1.73 sq M.predicted among non-blacks MDRD (S/P/Bld) [Vol rate/Area] 87 mL/min/{1.73_m2} Normal >60 [facility] Comment on above: Result Comment: These results are not intended for use in patients <18 years of age. eGFR results are calculated without a race factor using the 2020 CKD-EPI equation. Careful clinical correlation is recommended, particularly when comparing to results calculated using previous equations. The CKD-EPI equation is less accurate in patients with extremes of muscle mass, extra-renal metabolism of creatine, excessive creatine ingestion, or following therapy that affects renal tubular secretion. Performed By: #### C DP, BMP ####[facility] [id number] [place] [address] lab Director: Willy Henson MD Glucose [Mass/Vol] 101 mg/dL High 70-99 [facility] Comment on above: Performed By: #### C DP, BMP ####[facility] Xyc3795 [place] [address] lab Director: Willy Henson MD Potassium [Moles/Vol] 4.1 mmol/L Normal 3.7-5.3 [facility] Comment on above: Performed By: #### C DP, BMP ####[facility] Ykm6973 [place] [address] lab Director: Willy Henson MD Sodium [Moles/Vol] 142 mmol/L Normal 135-144 [facility] Comment on above: Performed By: #### C DP, BMP ####[facility] Txn3814 [place] [address] lab Director: Willy Henson MD Urea nitrogen [Mass/Vol] 19 mg/dL Normal 8-23 [facility] Comment on above: Performed By: #### C DP, BMP ####[facility] [id number] [facility], [place] [address] lab Director: Willy Henson MD CBC with Diffon 06-22-2023 Abs. Basophil 0.00 k/uL Normal 0.00-0.[address] [facility] Comment on above: Performed By: #### C DP, BMP ####[facility] [id number] [facility], [place] [address] lab Director: Willy Henson MD Abs.Imm.Granulocyte 0.00 k/uL Normal 0.00-0.30 [facility] Comment on above: Performed By: #### C DP, BMP ####[facility] [id number] [facility], [place] [address] lab Director: Willy Henson MD Abs.Neutrophil (Seg) 6.72 k/uL Normal 2.5-7.[address] [facility] Comment on above: Performed By: #### C DP, BMP ####[facility] Chn1995 [facility], [place] [address] lab Director: Willy Henson MD Basophils/100 WBC (Bld) 0 % Normal 0-2 [facility] Comment on above: Performed By: #### C DP, BMP ####[facility] [id number] [facility], [place] [address])[id number] Director: Willy Henson MD Eosinophils (Bld) [#/Vol] 0.14 10*3/uL Normal 0.00-0.40 [facility] Comment on above: Performed By: #### C DP, BMP ####[facility] [id number] [facility], [place] [address] lab Director: Willy Henson MD Eosinophils/100 WBC (Bld) 1 % Normal 0-5 [facility] Comment on above: Performed By: #### C DP, BMP ####[facility] Wpk19[address] [place], [place] [id number] Director: Willy Henson MD Immature granulocytes/100 WBC (Bld) 0 % Normal 0-5 [facility] Comment on above: Performed By: #### C DP, BMP ####[facility] T[address] [place] [address] Lab Director: Willy Henson MD Lymphocytes (Bld) [#/Vol] 6.16 10*3/uL High 1.00-4.80 [facility] Comment on above: Performed By: #### C DP, BMP ####[facility] Ayd[address] [place] [address] Lab Director: Willy Henson MD Lymphocytes/100 WBC (Bld) 44 % High 15-40 [facility] Comment on above: Performed By: #### C DP, BMP ####[facility] Tua[address] [place] [address] Lab Director: Willy Henson MD Monocytes (Bld) [#/Vol] 0.98 10*3/uL Normal 0.00-1.00 [facility] Comment on above: Performed By: #### C DP, BMP ####[facility] Cke[address] [place] [address] Lab Director: Willy Henson MD Monocytes/100 WBC (Bld) 7 % Normal 4-8 [facility] Comment on above: Performed By: #### C DP, BMP ####[facility] [id number] [facility] [place] [address] Lab Director: Willy Henson MD Morphology Ki (Bld) [Interp] Scanned to verify automated differential. Normal [facility] Comment on above: Performed By: #### C DP, BMP ####[facility] [id number] [place] [address] Lab Director: Willy Henson MD Neutrophil (Seg) 48 % Normal 47-75 [facility] Comment on above: Performed By: #### C DP, BMP ####[facility] [address] [place] [address] Lab Director: Willy Henson MD Erythrocyte distribution width (RBC) [Ratio] 13.0 % Normal 12.1-15.2 [facility] Comment on above: Performed By: #### C DP, BMP ####[facility] [address] [place] [address] Lab Director: Willy Henson MD Hematocrit (Bld) [Volume fraction] 31.3 % Low 36.0-46.0 [facility] Comment on above: Performed By: #### C DP, BMP ####[facility] Sjb1559 [facility] [place] [place] [address] Lab Director: Willy Henson MD Hemoglobin (Bld) [Mass/Vol] 10.2 g/dL Low 12.0-16.0 [facility] Comment on above: Performed By: #### C DP, BMP ####[facility] Sic[address] harleen [place] [place] [address] Lab Director: Willy Henson MD MCH (RBC) [Entitic mass] 29.5 pg Normal 26.0-34.0 [facility] Comment on above: Performed By: #### C DP, BMP ####[facility] [id number] [place] [address] Lab Director: Willy Henson MD MCHC (RBC) [Mass/Vol] 32.6 g/dL Normal 31.0-37.0 [facility] Comment on above: Performed By: #### C DP, BMP ####[facility] [id number] [place] [address] Lab Director: Willy Henson MD MCV (RBC) [Entitic vol] 90.5 fL Normal 80.0-100.0 [facility] Comment on above: Performed By: #### C DP, BMP ####[facility] Bdw1787 [place] [address] Lab Director: Willy Henson MD Platelet mean volume (Bld) [Entitic vol] 11.1 fL Normal 6.0-12.0 [facility] Comment on above: Performed By: #### C DP, BMP ####[facility] Pcj54[address] [place] [address] Lab Director: Willy Henson MD Platelets (Bld) [#/Vol] 139 10*3/uL Low 140-450 [facility] Comment on above: Performed By: #### C DP, BMP ####[facility] Hmy2780 [facility] [place] [address] Lab Director: Willy Henson MD RBC (Bld) [#/Vol] 3.46 10*6/uL Low 4.00-5.20 [facility] Comment on above: Performed By: #### C DP, BMP ####[facility] [id number] [place] [address] Lab Director: Willy Henson MD WBC (Bld) [#/Vol] 14.0 10*3/uL High 3.5-11.0 [facility] Comment on above: Performed By: #### C DP, BMP ####[facility] [id number]Sh[address], [place] [id number] Director: Willy Henson MD Basic Metab w/rfx MGon 06-20 Anion gap [Moles/Vol] 8 mmol/L Low 9-17 [facility] Comment on above: Performed By: #### L IVP, BMPX, CDP #### [facility] Lab [address] [place] [address] Truck Safety Inspector: Willy Henson MD BUN/CRE Ratio 27 High 9-[address] [facility] Comment on above: Performed By: #### L IVP, BMPX, CDP #### [facility] Lab [address] [place], [place] [id number] Truck Safety Inspector: Willy Henson MD Calcium [Mass/Vol] 9.0 mg/dL Normal 8.6-10.4 [facility] Comment on above: Performed By: #### L IVP, BMPX, CDP #### [facility] [address] [place] [address] Truck Safety Inspector: Willy Henson MD Chloride [Moles/Vol] 105 mmol/L Normal 98-[address] [facility] Comment on above: Performed By: #### L IVP, BMPX, CDP #### [facility] [address] [place] [address] Truck Safety Inspector: Willy Henson MD CO2 [Moles/Vol] 24 mmol/L Normal 20-31 [facility] Comment on above: Performed By: #### L IVP, BMPX, CDP #### [facility] [address] [place] [address] Truck Safety Inspector: Willy Henson MD Creatinine [Mass/Vol] 0.6 mg/dL Normal 0.5-0.9 [facility] Comment on above: Performed By: #### L IVP, BMPX, CDP #### [facility] [address] [place] [address] Truck Safety Inspector: Willy Henson MD GFR/1.73 sq M.predicted among non-blacks MDRD (S/P/Bld) [Vol rate/Area] mL/min/{1.73_m2} Normal >60 [facility] Comment on above: Result Comment: These results are not intended for use in patients <18 years of age. eGFR results are calculated without a race factor using the 2020 CKD-EPI equation. Careful clinical correlation is recommended, particularly when comparing to results calculated using previous equations. The CKD-EPI equation is less accurate in patients with extremes of muscle mass, extra-renal metabolism of creatine, excessive creatine ingestion, or following therapy that affects renal tubular secretion. Performed By: #### L IVP, BMPX, CDP #### [facility] [address] [place] [address] Truck Safety Inspector: Willy Henson MD Glucose [Mass/Vol] 152 mg/dL High 70-99 [facility] Comment on above: Performed By: #### L IVP, BMPX, CDP #### [facility] [address] [place] [address] Truck Safety Inspector: Willy Henson MD Potassium [Moles/Vol] 4.2 mmol/L Normal 3.7-5.3 [facility] Comment on above: Performed By: #### L IVP, BMPX, CDP #### [facility] [address] [place] [address] Truck Safety Inspector: Willy Henson MD Sodium [Moles/Vol] 137 mmol/L Normal 135-144 [facility] Comment on above: Performed By: #### L IVP, BMPX, CDP #### [facility] [address] [place] [address] Truck Safety Inspector: Willy Henson MD Urea nitrogen [Mass/Vol] 16 mg/dL Normal 8-23 [facility] Comment on above: Performed By: #### L IVP, BMPX, CDP #### [facility] [address] [place] [address] Truck Safety Inspector: iWlly Henson MD CBC with Diffon 06-21-2023 Abs. Basophil Normal 0.0-0.[address] [facility] Comment on above: Performed By: #### L IVP, BMPX, CDP #### [facility] [address] [place] [address] Truck Safety Inspector: Willy Henson MD Abs. Eosinophil Normal 0.0-0.4 [facility] Comment on above: Performed By: #### L IVP, BMPX, CDP #### [facility] [address] [place] [address] Truck Safety Inspector: Willy Henson MD Abs.Imm.Granulocyte Normal 0.00-0.30 [facility] Comment on above: Performed By: #### L IVP, BMPX, CDP #### [facility] [address] [place], [place] [id number] Truck Safety Inspector: Willy Henson MD Abs.Neutrophil (Seg) 14.01 k/uL High 2.5-7.[address] [facility] Comment on above: Performed By: #### L IVP, BMPX, CDP #### [facility] [address] [place] [address] Truck Safety Inspector: Willy Henson MD Basophil Normal 0-2 [facility] Comment on above: Performed By: #### L IVP, BMPX, CDP #### [facility] [address] [place], [place] [id number] Truck Safety Inspector: Willy Henson MD Eosinophil Normal 0-5 [facility] Comment on above: Performed By: #### L IVP, BMPX, CDP #### [facility] [address] [place], [place] [id number] Truck Safety Inspector: Willy Henson MD Immature Granulocyte Normal [address] [facility] Comment on above: Performed By: #### L IVP, BMPX, CDP #### [facility] [address] [place], [place] [id number] Truck Safety Inspector: Willy Henson MD Lymphocytes (Bld) [#/Vol] 5.48 10*3/uL High 1.0-4.8 [facility] Comment on above: Performed By: #### L IVP, BMPX, CDP #### [facility] [address] [place], [place] [id number] Truck Safety Inspector: Willy Henson MD Lymphocytes/100 WBC (Bld) 27 % Normal 15-40 [facility] Comment on above: Performed By: #### L IVP, BMPX, CDP #### [facility] [address] [place], [place] [id number] Truck Safety Inspector: Willy Henson MD Monocytes (Bld) [#/Vol] 0.81 10*3/uL Normal 0.0-1.0 [facility] Comment on above: Performed By: #### L IVP, BMPX, CDP #### [facility] [address] [place] [address] Truck Safety Inspector: Willy Henson MD Monocytes/100 WBC (Bld) 4 % Normal 4-8 [facility] Comment on above: Performed By: #### L IVP, BMPX, CDP #### [facility] [address] [place] [address] Truck Safety Inspector: Willy Henson MD Morphology Ki (Bld) [Interp] Manual Differential Performed Normal [facility] Comment on above: Performed By: #### L IVP, BMPX, CDP #### [facility] Lab [address] [place] [address] Truck Safety Inspector: Willy Henson MD Neutrophil (Seg) 69 % Normal 47-75 [facility] Comment on above: Performed By: #### L IVP, BMPX, CDP #### [facility] Lab [address] [place] [address] Truck Safety Inspector: Willy Henson MD Erythrocyte distribution width (RBC) [Ratio] 12.7 % Normal 12.1-15.2 [facility] Comment on above: Performed By: #### L IVP, BMPX, CDP #### [facility] Lab [address] [place] [address] Truck Safety Inspector: Willy Henson MD Hematocrit (Bld) [Volume fraction] 34.7 % Low 36.0-46.0 [facility] Comment on above: Performed By: #### L IVP, BMPX, CDP #### [facility] Lab [address] [place] [address] Truck Safety Inspector: Willy Henson MD Hemoglobin (Bld) [Mass/Vol] 11.4 g/dL Low 12.0-16.0 [facility] Comment on above: Performed By: #### L IVP, BMPX, CDP #### [facility] Lab [address] [place] [address] Truck Safety Inspector: Willy Henson MD MCH (RBC) [Entitic mass] 29.5 pg Normal 26.0-34.0 [facility] Comment on above: Performed By: #### L IVP, BMPX, CDP #### [facility] Lab [address] [place] [address] Truck Safety Inspector: Willy Henson MD MCHC (RBC) [Mass/Vol] 32.9 g/dL Normal 31.0-37.0 [facility] Comment on above: Performed By: #### L IVP, BMPX, CDP #### [facility] [address] [place] [address] Truck Safety Inspector: Willy Henson MD MCV (RBC) [Entitic vol] 89.7 fL Normal 80.0-100.0 [facility] Comment on above: Performed By: #### L IVP, BMPX, CDP #### [facility] [address] [place] [address] Truck Safety Inspector: Willy Henson MD Platelet mean volume (Bld) [Entitic vol] 11.2 fL Normal 6.0-12.0 [facility] Comment on above: Performed By: #### L IVP, BMPX, CDP #### [facility] Lab [address] [place], [place] [id number] Truck Safety Inspector: Willy Henson MD Platelets (Bld) [#/Vol] 146 10*3/uL Normal 140-450 [facility] Comment on above: Performed By: #### L IVP, BMPX, CDP #### [facility] Lab [address] [place], [place] [phone] Truck Safety Inspector: Willy Henson MD RBC (Bld) [#/Vol] 3.87 10*6/uL Low 4.00-5.20 [facility] Comment on above: Performed By: #### L IVP, BMPX, CDP #### [facility] Lab [address] [place], [place] [phone] Truck Safety Inspector: Willy Henson MD WBC (Bld) [#/Vol] 20.3 10*3/uL Critically high 3.5-11.0 [facility] Comment on above: Performed By: #### L IVP, BMPX, CDP #### [facility] [address] [place], [place] [phone] Truck Safety Inspector: Willy Henson MD Liver Profileon 06-21-2023 Albumin [Mass/Vol] 3.6 g/dL Normal 3.5-5.2 [facility] Comment on above: Performed By: #### L IVP, BMPX, CDP #### [facility] [address] [place], [place] [phone] Truck Safety Inspector: Willy Henson MD Alkaline Phos 91 U/L Normal 35-[address] [facility] Comment on above: Performed By: #### L IVP, BMPX, CDP #### [facility] Lab [address] [place] [address] Truck Safety Inspector: Willy Henson MD ALT [Catalytic activity/Vol] 55 U/L High 5-33 [facility] Comment on above: Performed By: #### L IVP, BMPX, CDP #### [facility] Lab [address] [place], [place] [phone] Truck Safety Inspector: Willy Henson MD AST [Catalytic activity/Vol] 53 U/L High <32 [facility] Comment on above: Performed By: #### L IVP, BMPX, CDP #### [facility] [address] [place], [place] [id number] Truck Safety Inspector: Willy Henson MD Bilirubin [Mass/Vol] 0.7 mg/dL Normal 0.3-1.[address] [facility] Comment on above: Performed By: #### L IVP, BMPX, CDP #### [facility] [address] [place], [place] [phone] Truck Safety Inspector: Wilyl Henson MD Bilirubin, Indirect Can not be calculated Normal 0.0-1.0 [facility] Comment on above: Performed By: #### L IVP, BMPX, CDP #### [facility] [address] [place], [place] [phone] Truck Safety Inspector: Willy Henson MD Bilirubin.indirect [Mass/Vol] mg/dL Normal <0.3 [facility] Comment on above: Performed By: #### L IVP, BMPX, CDP #### [facility] [address] [place], [place] [phone] Truck Safety Inspector: Willy Henson MD Protein [Mass/Vol] 5.9 g/dL Low 6.4-8.3 [facility] Comment on above: Performed By: #### L IVP, BMPX, CDP #### [facility] [address] [place] [address] Truck Safety Inspector: Willy Henson MD APTTon 06-20-2023 aPTT Coag (Bld) [Time] 25.8 s Normal 23.9-33.8 [facility] Comment on above: Result Comment: IV Heparin Therapy Range: 62.0-94.0 Performed By: #### P TT, PT ####[facility] [id number] [place], [place] [id number] Lab Director: Willy Henson MD CBC with Diffon 06-20-2023 Abs. Basophil Normal 0.0-0.[address] [facility] Comment on above: Performed By: #### L ACTDIDI SARAH, CP #### [facility] Lab [address] [place], [place] [phone] Truck Safety Inspector: Willy Henson MD Abs. Eosinophil Normal 0.0-0.4 [facility] Comment on above: Performed By: #### L DIDI BONILLA, CP #### [facility] Lab [address] [place] [address] Truck Safety Inspector: Willy Henson MD Abs.Imm.Granulocyte Normal 0.00-0.30 [facility] Comment on above: Performed By: #### L DIDI BONILLA, CP #### [facility] Lab [address] [place], [place] [phone] Truck Safety Inspector: Willy Henson MD Abs.Neutrophil (Seg) 12.04 k/uL High 2.5-7.[address] [facility] Comment on above: Performed By: #### L DIDI BONILLA, CP #### [facility] [address] [place], [place] [phone] Truck Safety Inspector: Willy Henson MD Basophil Normal 0-2 [facility] Comment on above: Performed By: #### L DIDI BONILLA, CP #### [facility] Lab [address] [place], [place] [phone] Truck Safety Inspector: Willy Henson MD Eosinophil Normal 0-5 [facility] Comment on above: Performed By: #### L ACTDIDI SARAH, CP #### [facility] [address] [place] [address] Truck Safety Inspector: Willy Henson MD Immature Granulocyte Normal [address] [facility] Comment on above: Performed By: #### L DIDI BONILLA, CP #### [facility] [address] [place] [address] ([phone] Truck Safety Inspector: Willy Henson MD Lymphocytes (Bld) [#/Vol] 5.13 10*3/uL High 1.0-4.8 [facility] Comment on above: Performed By: #### L DIDI BONILLA, CP #### [facility] [address] [place] [address] Truck Safety Inspector: Willy Henson MD Lymphocytes/100 WBC (Bld) 29 % Normal 15-40 [facility] Comment on above: Performed By: #### L DIDI BONILLA, CP #### [facility] [address] [place] [address] Truck Safety Inspector: Willy Henson MD Monocytes (Bld) [#/Vol] 0.53 10*3/uL Normal 0.0-1.0 [facility] Comment on above: Performed By: #### L DIDI BONILLA, CP #### [facility] [address] [place] [address] Truck Safety Inspector: Willy Henson MD Monocytes/100 WBC (Bld) 3 % Low 4-8 [facility] Comment on above: Performed By: #### L DIDI BONILLA, CP #### [facility] [address] [place] [address] Truck Safety Inspector: Willy Henson MD Morphology Ki (Bld) [Interp] Manual Differential Performed Normal [facility] Comment on above: Performed By: #### L DIDI BONILLA, CP #### [facility] [address] [place] [address] Truck Safety Inspector: Willy Henson MD Neutrophil (Seg) 68 % Normal 47-75 [facility] Comment on above: Performed By: #### L DIDI BONILLA, CP #### [facility] [address] [place] [address] Truck Safety Inspector: Willy Henson MD Erythrocyte distribution width (RBC) [Ratio] 12.5 % Normal 12.1-15.2 [facility] Comment on above: Performed By: #### L DIDI BONILLA, CP #### [facility] [address] [place] [address] Truck Safety Inspector: Willy Henson MD Hematocrit (Bld) [Volume fraction] 37.1 % Normal 36.0-46.0 [facility] Comment on above: Performed By: #### L DIDI BONILLA, CP #### [facility] Lab [address] [place] [phone] Truck Safety Inspector: Willy Henson MD Hemoglobin (Bld) [Mass/Vol] 12.2 g/dL Normal 12.0-16.0 [facility] Comment on above: Performed By: #### L DIDI BONILLA, CP #### [facility] [address] [place] [address] Truck Safety Inspector: Willy Henson MD MCH (RBC) [Entitic mass] 29.5 pg Normal 26.0-34.0 [facility] Comment on above: Performed By: #### L DIDI BONILLA, CP #### [facility] [address] [place] [phone] Truck Safety Inspector: Willy Henson MD MCHC (RBC) [Mass/Vol] 32.9 g/dL Normal 31.0-37.0 [facility] Comment on above: Performed By: #### L DIDI BONILLA, CP #### [facility] [address] [place] [address] Truck Safety Inspector: Willy Henson MD MCV (RBC) [Entitic vol] 89.6 fL Normal 80.0-100.0 [facility] Comment on above: Performed By: #### L DIDI BONILLA, CP #### [facility] Lab [address] [place] [address] Truck Safety Inspector: Willy Henson MD Platelet mean volume (Bld) [Entitic vol] 10.9 fL Normal 6.0-12.0 [facility] Comment on above: Performed By: #### L DIDI BONILLA, CP #### [facility] Lab [address] [place] [address] (821) Truck Safety Inspector: Willy Henson MD Platelets (Bld) [#/Vol] 147 10*3/uL Normal 140-450 [facility] Comment on above: Performed By: #### L DIDI BONILLA, CP #### [facility] Lab [address] [place] [address] Truck Safety Inspector: Willy Henson MD RBC (Bld) [#/Vol] 4.14 10*6/uL Normal 4.00-5.20 [facility] Comment on above: Performed By: #### L DIDI BONILLA, CP #### [facility] [address] [place] [address] Truck Safety Inspector: Willy Henson MD WBC (Bld) [#/Vol] 17.7 10*3/uL High 3.5-11.0 [facility] Comment on above: Performed By: #### L DIDI BONILLA, CP #### [facility] [address] [place] [address] Truck Safety Inspector: Willy Henson MD Abs. Atypical Lymphs 0.29 k/uL Normal 0.0-1.[address] [facility] Comment on above: Performed By: #### C ABEL SOTO, TROPI ####[facility] [id number] [place] [address] Lab Director: Willy Henson MD Abs. Basophil Normal 0.0-0.[address] [facility] Comment on above: Performed By: #### C ABEL SOTO, TROPI ####[facility] [address] [place] [address] Lab Director: Willy Henson MD Abs.Imm.Granulocyte Normal 0.00-0.30 [facility] Comment on above: Performed By: #### C DP, CP, TROPI ####[facility] [address] [facility] [place] [address] Lab Director: Willy Henson MD Abs.Neutrophil (Seg) 6.15 k/uL Normal 2.5-7.[address] [facility] Comment on above: Performed By: #### C DP, CP, TROPI ####[facility] [id number] [facility] [place] [address] Lab Director: Willy Henson MD Atypical Lymphs 2 % Normal [facility] Comment on above: Performed By: #### C DP CP, TROPI ####[facility] [id number] [place] [address] Lab Director: Willy Henson MD Basophil Normal 0-2 [facility] Comment on above: Performed By: #### C DP, CP, TROPI ####[facility] [id number] [place] [phone] Director: Willy Henson MD Eosinophils (Bld) [#/Vol] 0.29 10*3/uL Normal 0.0-0.4 [facility] Comment on above: Performed By: #### C DP, CP, TROPI ####[facility] [id number] [facility] [place] [address] Lab Director: Willy Henson MD Eosinophils/100 WBC (Bld) 2 % Normal 0-5 [facility] Comment on above: Performed By: #### C DP, CP, TROPI ####[facility] [id number] [place] [address] Lab Director: Willy Henson MD Immature Granulocyte Normal [address] [facility] Comment on above: Performed By: #### C ABEL SOTO, TROPI ####[facility] [address] [place] [address] Lab Director: Willy Henson MD Lymphocytes (Bld) [#/Vol] 6.43 10*3/uL High 1.0-4.8 [facility] Comment on above: Performed By: #### C BRITTANY CP, TROPI ####[facility] [id number] [place] [address] Lab Director: Willy Henson MD Lymphocytes/100 WBC (Bld) 45 % High 15-40 [facility] Comment on above: Performed By: #### C BRITTANY CP, TROPI ####[facility] [id number] [facility] [place] [address] Lab Director: Willy Henson MD Monocytes (Bld) [#/Vol] 1.14 10*3/uL High 0.0-1.0 [facility] Comment on above: Performed By: #### C BRITTANY CP, TROPI ####[facility] [id number] [place] [address] Lab Director: Willy Henson MD Monocytes/100 WBC (Bld) 8 % Normal 4-8 [facility] Comment on above: Performed By: #### C BRITTANY CP, TROPI ####[facility] [id number] [facility] [place] [address] Lab Director: Willy Henson MD Morphology Ki (Bld) [Interp] Manual Differential Performed Normal [facility] Comment on above: Performed By: #### C DP, CP, TROPI ####[facility] [id number] [place] [address] Lab Director: Willy Henson MD Neutrophil (Seg) 43 % Low 47-75 [facility] Comment on above: Performed By: #### C DP, CP, TROPI ####[facility] [id number] [facility], [place] [phone] Lab Director: Willy Henson MD Erythrocyte distribution width (RBC) [Ratio] 12.7 % Normal 12.1-15.2 [facility] Comment on above: Performed By: #### C DP, CP, TROPI ####[facility] [id number] [facility] [place] [address] Lab Director: Willy Henson MD Hematocrit (Bld) [Volume fraction] 38.0 % Normal 36.0-46.0 [facility] Comment on above: Performed By: #### C DP, CP, TROPI ####[facility] [id number] [facility], [facility], [facility] Lab Director: Willy Henson MD Hemoglobin (Bld) [Mass/Vol] 12.5 g/dL Normal 12.0-16.0 [facility] Comment on above: Performed By: #### C DP, CP, TROPI ####[facility] [id number] [facility] [place] [address] Lab Director: Willy Henson MD MCH (RBC) [Entitic mass] 29.3 pg Normal 26.0-34.0 [facility] Comment on above: Performed By: #### C DP, CP, TROPI ####[facility] [id number] [facility] [place] [address] Lab Director: Willy Henson MD MCHC (RBC) [Mass/Vol] 32.9 g/dL Normal 31.0-37.0 [facility] Comment on above: Performed By: #### C DP, CP, TROPI ####[facility] [id number] [facility], [place] [phone] Lab Director: Willy Henson MD MCV (RBC) [Entitic vol] 89.2 fL Normal 80.0-100.0 [facility] Comment on above: Performed By: #### C BRITTANY CP, TROPI ####[facility] [id number] [place], [place] [phone] Director: Willy Henson MD Platelet mean volume (Bld) [Entitic vol] 11.0 fL Normal 6.0-12.0 [facility] Comment on above: Performed By: #### C DP CP, TROPI ####[facility] [id number] [place], [place] [phone] Director: Willy Henson MD Platelets (Bld) [#/Vol] 159 10*3/uL Normal 140-450 [facility] Comment on above: Performed By: #### C BRITTANY CP, TROPI ####[facility] [id number] [place] [address] Lab Director: Willy Henson MD RBC (Bld) [#/Vol] 4.26 10*6/uL Normal 4.00-5.20 [facility] Comment on above: Performed By: #### C BRITTANY CP, TROPI ####[facility] [id number] [place] [address] Lab Director: Willy Henson MD WBC (Bld) [#/Vol] 14.3 10*3/uL High 3.5-11.0 [facility] Comment on above: Performed By: #### C DP CP, TROPI ####[facility] [id number] [facility] [place], [place] [phone] Director: Willy Henson MD CT ABDOMEN PELVIS W IV CONTR Bob 06-20-2023 CT ABDOMEN PELVIS W IV CONTRAST CT ABDOMEN/PELVIS WITH IV CONTRAST. INDICATION: Upper abdominal pain. COMPARISON: CT abdomen and pelvis 03/30/2023, ultrasound abdomen 04/04/2023 TECHNIQUE: Contiguous axial images were obtained from the lung bases to the pelvic floor following the intravenous administration of iodinated contrast material. Coronal and sagittal reformations were obtained. FINDINGS: LOWER LUNGS: The heart is mildly enlarged. Linear and groundglass opacities at the lung bases likely represent atelectasis. There is a calcified granuloma at the left lung base. LIVER/BILIARY TREE: No focal hepatic mass is identified. Mild intrahepatic ductal dilatation. GALLBLADDER: The gallbladder is distended. There is cholelithiasis. No wall thickening or pericholecystic fluid are identified. CBD: Normal caliber. SPLEEN: There are punctate calcifications in the spleen. PANCREAS: There is mild atrophy of the pancreas. ADRENALS: Unremarkable. KIDNEYS: No hydronephrosis. No radiopaque calculus. STOMACH AND BOWEL: Stomach is unremarkable. No dilated bowel loops. No bowel wall thickening. There is diverticulosis of the sigmoid colon without evidence for acute diverticulitis. APPENDIX: The appendix is not identified. There is no inflammatory change in the right lower quadrant. PERITONEAL CAVITY: There is no ascites or intraperitoneal free air. No fat stranding. ABDOMINAL WALL: No subcutaneous fat stranding or fluid collection. LYMPH NODES: No mesenteric or retroperitoneal lymphadenopathy by CT criteria. ABDOMINAL AORTA: Mild atherosclerotic calcification of the abdominal aorta. PELVIS: The bladder and reproductive organs are unremarkable. MUSCULOSKELETAL: No suspicious osseous lesion. There are mild degenerative changes in the thoracolumbar spine. SOFT TISSUES: [Small fat-containing umbilical hernia.] IMPRESSION: The gallbladder is distended and there is cholelithiasis. No pericholecystic fluid or wall thickening is identified on the current exam. Recommend ultrasound for further evaluation as clinically warranted. Mild intrahepatic biliary ductal dilatation. Sigmoid diverticulosis. Interpreted by: Neptali Johnson MD Signed by: Neptali Johnson MD 06/20/23 Final result Normal [facility] Comp Metabolic Profon 2023 Albumin [Mass/Vol] 4.3 g/dL Normal 3.5-5.2 [facility] Comment on above: Performed By: #### L DIDI BONILLA CP #### [facility] Lab [address] [place] [address] Truck Safety Inspector: Willy Henson MD Alkaline Phos 109 U/L High 35-[address] [facility] Comment on above: Performed By: #### L DIDI BONILLA, CP #### [facility] Lab [address] [place], [place] [phone] Truck Safety Inspector: Willy Henson MD ALT [Catalytic activity/Vol] 20 U/L Normal 5-33 [facility] Comment on above: Performed By: #### L DIDI BONILLA, CP #### [facility] [address] [place], [place] [phone] Truck Safety Inspector: Willy Henson MD Anion gap [Moles/Vol] 10 mmol/L Normal 9-17 [facility] Comment on above: Performed By: #### L DIDI BONILLA, CP #### [facility] [address] [place], [place] [phone] Truck Safety Inspector: Willy Henson MD AST [Catalytic activity/Vol] 20 U/L Normal <32 [facility] Comment on above: Performed By: #### L DIDI BONILLA, CP #### [facility] [address] [place], [place] [phone] Truck Safety Inspector: Willy Henson MD Bilirubin [Mass/Vol] 0.2 mg/dL Low 0.3-1.[address] [facility] Comment on above: Performed By: #### L DIDI BONILLA, CP #### [facility] [address] [place], [place] [phone] Truck Safety Inspector: Willy Henson MD BUN/CRE Ratio 26 High 9-[address] [facility] Comment on above: Performed By: #### L DIDI BONILLA, CP #### [facility] [address] [place], [place] [phone] Truck Safety Inspector: Willy Henson MD Calcium [Mass/Vol] 8.8 mg/dL Normal 8.6-10.4 [facility] Comment on above: Performed By: #### L DIDI BONILLA, CP #### [facility] [address] [place] [address] Truck Safety Inspector: Willy Henson MD Chloride [Moles/Vol] 99 mmol/L Normal 98-[address] [facility] Comment on above: Performed By: #### L DIDI BONILLA, CP #### [facility] [address] [place], [place] [phone] Truck Safety Inspector: Willy Henson MD CO2 [Moles/Vol] 24 mmol/L Normal 20-31 [facility] Comment on above: Performed By: #### L DIDI BONILLA, CP #### [facility] [address] [place], [place] [phone] Truck Safety Inspector: Willy Henson MD Creatinine [Mass/Vol] 0.8 mg/dL Normal 0.5-0.9 [facility] Comment on above: Performed By: #### L DIDI BONILLA, CP #### [facility] [address] [place] [address] Truck Safety Inspector: Willy Henson MD GFR/1.73 sq M.predicted among non-blacks MDRD (S/P/Bld) [Vol rate/Area] 74 mL/min/{1.73_m2} Normal >60 [facility] Comment on above: Result Comment: These results are not intended for use in patients <18 years of age. eGFR results are calculated without a race factor using the 2020 CKD-EPI equation. Careful clinical correlation is recommended, particularly when comparing to results calculated using previous equations. The CKD-EPI equation is less accurate in patients with extremes of muscle mass, extra-renal metabolism of creatine, excessive creatine ingestion, or following therapy that affects renal tubular secretion. Performed By: #### L DIDI BONILLA, CP #### [facility] [address] [place] [address] Truck Safety Inspector: Willy Henson MD Glucose [Mass/Vol] 155 mg/dL High 70-99 [facility] Comment on above: Performed By: #### L DIDI BONILLA, CP #### [facility] [address] [place] [address] Truck Safety Inspector: Willy Henson MD Potassium [Moles/Vol] 4.0 mmol/L Normal 3.7-5.3 [facility] Comment on above: Performed By: #### L DIDI BONILLA, CP #### [facility] [address] [place] [address] Truck Safety Inspector: Willy Henson MD Protein [Mass/Vol] 6.6 g/dL Normal 6.4-8.3 [facility] Comment on above: Performed By: #### L DIDI BONILLA, CP #### [facility] [address] [place] [address] Truck Safety Inspector: Willy Henson MD Sodium [Moles/Vol] 133 mmol/L Low 135-144 [facility] Comment on above: Performed By: #### L DIDI BONILLA, CP #### [facility] [address] [place] [address] Truck Safety Inspector: Willy Henson MD Urea nitrogen [Mass/Vol] 21 mg/dL Normal 8-23 [facility] Comment on above: Performed By: #### L DIDI BONILLA, CP #### [facility] [address] [place] [address] Truck Safety Inspector: Willy Henson MD Albumin [Mass/Vol] 4.3 g/dL Normal 3.5-5.2 [facility] Comment on above: Performed By: #### C ABEL SOTO, TROPI ####[facility] [id number] [place] [address] Lab Director: Willy Henson MD Alkaline Phos 115 U/L High 35-[address] [facility] Comment on above: Performed By: #### C ABEL SOTO, TROPI ####[facility] [id number] [place] [address] Lab Director: Willy Henson MD ALT [Catalytic activity/Vol] 19 U/L Normal 5-33 [facility] Comment on above: Performed By: #### C DP CP, TROPI ####[facility] [id number] [facility], [place] [address] lab Director: Willy Henson MD Anion gap [Moles/Vol] 11 mmol/L Normal 9-17 [facility] Comment on above: Performed By: #### C BRITTANY CP, TROPI ####[facility] [id number] [facility], [place] [address] lab Director: Willy Henson MD AST [Catalytic activity/Vol] 19 U/L Normal <32 [facility] Comment on above: Performed By: #### C BRITTANY CP, TROPI ####[facility] [address] [facility], [place] [address] lab Director: Willy Henson MD Bilirubin [Mass/Vol] 0.3 mg/dL Normal 0.3-1.[address] [facility] Comment on above: Performed By: #### C BRITTANY CP, TROPI ####[facility] [id number] [facility], [place] [address] lab Director: Willy Henson MD BUN/CRE Ratio 23 High 9-[address] [facility] Comment on above: Performed By: #### C DP CP, TROPI ####[facility] [id number] [facility], [place] [address] lab Director: Willy Henson MD Calcium [Mass/Vol] 9.8 mg/dL Normal 8.6-10.4 [facility] Comment on above: Performed By: #### C DP, CP, TROPI ####[facility] [id number] [facility], [place] [address] lab Director: Willy Henson MD Chloride [Moles/Vol] 101 mmol/L Normal 98-[address] [facility] Comment on above: Performed By: #### C DP CP, TROPI ####[facility] [id number] [place] [address] Lab Director: Willy Henson MD CO2 [Moles/Vol] 26 mmol/L Normal 20-31 [facility] Comment on above: Performed By: #### C DP, CP, TROPI ####[facility] [id number] [facility], [facility], [place] [phone] Director: Willy Henson MD Creatinine [Mass/Vol] 1.2 mg/dL High 0.5-0.9 [facility] Comment on above: Performed By: #### C BRITTANY CP, TROPI ####[facility] [id number] [facility], [place] [address] Lab Director: Willy Henson MD GFR/1.73 sq M.predicted among non-blacks MDRD (S/P/Bld) [Vol rate/Area] 45 mL/min/{1.73_m2} Low >60 [facility] Comment on above: Result Comment: These results are not intended for use in patients <18 years of age. eGFR results are calculated without a race factor using the 2020 CKD-EPI equation. Careful clinical correlation is recommended, particularly when comparing to results calculated using previous equations. The CKD-EPI equation is less accurate in patients with extremes of muscle mass, extra-renal metabolism of creatine, excessive creatine ingestion, or following therapy that affects renal tubular secretion. Performed By: #### C DP CP, TROPI ####[facility] [id number] [facility] [place] [address] Lab Director: Willy Henson MD Glucose [Mass/Vol] 130 mg/dL High 70-99 [facility] Comment on above: Performed By: #### C DP, CP, TROPI ####[facility] [id number] [facility] [place] [address] Lab Director: Willy Henson MD Potassium [Moles/Vol] 3.8 mmol/L Normal 3.7-5.3 [facility] Comment on above: Performed By: #### C ABEL SOTO, TROPI ####[facility] [id number] [place] [address] Lab Director: Willy Henson MD Protein [Mass/Vol] 6.8 g/dL Normal 6.4-8.3 [facility] Comment on above: Performed By: #### C BRITTANY CP, TROPI ####[facility] [address] [facility], [place] [address] Lab Director: Willy Henson MD Sodium [Moles/Vol] 138 mmol/L Normal 135-144 [facility] Comment on above: Performed By: #### C ABEL SOTO, TROPI ####[facility] [address] [place] [address] Lab Director: Willy Henson MD Urea nitrogen [Mass/Vol] 27 mg/dL High 8-23 [facility] Comment on above: Performed By: #### C ABEL SOTO, TROPI ####[facility] [id number] [place] [address] Lab Director: Willy Henson MD D-Dimer Teston 06-20-2023 D-Dimer Test 0.36 ug/mL FEU Normal 0.00-0.59 [facility] Comment on above: Result Comment: When combined with a low clinical probability, a D dimer value of <0.50 ug/mL FEU is considered negative for DVT and PE (negative predictive value of 98%, sensitivity of 97%). If this test is not being used to help rule out DVT and PE, then the following reference range should be utilized: 0.00 - 0.59 ug/mL FEU. The D-Dimer assay is intended for use as an aid in the diagnosis of venous thromboembolism (DVT and PE) and the results should be interpreted in conjunction with the patient's medical history, clinical presentation, and other findings. Elevated levels of D-dimer activity can be seen in any state of coagulation activation and is not recommended in patients with therapeutic dose anticoagulant therapy for >24 hours, fibrinolytic therapy within the previous 7 days, trauma or surgery within the previous 4 weeks, disseminated malignancies, aortic aneurysm, sepsis, severe infections, pneumonia, severe skin infections, liver cirrhosis, advanced age, coronary disease, diabetes, and . A very low percentage of patients with DVT may yield D-dimer results below the cutoff of 0.5 ug/mL FEU. This is known to be more prevalent in patients with distal DVT. Performed By: #### D MAGDALENA #### [facility] [address] [place], [place] [id number] Truck Safety Inspector: Willy Henson MD Lactic Acidon 06-20-2023 Lactate [Moles/Vol] 1.2 mmol/L Normal 0.5-2.2 [facility] Comment on above: Performed By: #### L ACTIC, CDP, CP #### [facility] [address] [place] [id number] Truck Safety Inspector: Willy Henson MD Lipaseon 06-20-2023 Lipase [Catalytic activity/Vol] 24 U/L Normal 13-60 [facility] Comment on above: Performed By: #### L IP #### [facility] [address] [place] [address] Truck Safety Inspector: Willy Henson MD PTon 06-20-2023 INR Coag (PPP) [Relative time] 1.1 {INR} Normal [facility] Comment on above: Result Comment: Therapeutic Range: Moderate Anticoagulant Intensity: INR = 2.0-3.0 High Anticoagulant Intensity: INR = 2.5-3.5 Performed By: #### P TT, PT ####[facility] [address] [place] [address] Lab Director: Willy Henson MD PT Coag (PPP) [Time] 13.8 s Normal 11.5-14.[address] [facility] Comment on above: Performed By: #### P TT, PT ####[facility] [address] [place] [address] lab Director: Willy Henson MD Troponinon 06-20-2023 Troponin, High Sens 6 ng/L Normal 0-14 [facility] Comment on above: Result Comment: High Sensitivity Troponin values cannot be compared with other Troponin methodologies. Performed By: #### C DP, CP, TROPI ####[facility] [address] [place] [address] lab Director: Willy Henson MD US ABDOMEN LIMITEDon 024 US ABDOMEN LIMITED EXAM: US ABDOMEN LIMITED HISTORY: RUQ pain, question of gallstones on CT. COMPARISON: CT scan abdomen and pelvis 06/20/2023, [facility] abdominal ultrasound 04/04/2023, which showed multiple gallstones. FINDINGS: Multiple gallstones. Mildly prominent common bile duct at 9 mm with no definite common duct stone. Likely tumefactive sludge adjacent to the dependent portion of the gallbladder wall measures 2.5 x 1.3 cm. Polyp less likely. No evidence of gallbladder wall penetration by the mass. Gallbladder wall thickened at 5 mm. Barely perceptible pericholecystic fluid versus gallbladder wall edema. Study limited by bowel gas with no focal liver abnormality. The portions of the pancreas that are seen are normal. The right kidney substantially shadowed by gas without hydronephrosis. Cholelithiasis. Tumefactive sludge versus large gallbladder polyp (less likely since this was not present on 04/04/2023 [facility] ultrasound). IMPRESSION: The right kidney substantially shadowed by gas without hydronephrosis. Cholelithiasis. Tumefactive sludge versus large gallbladder polyp (less likely since this was not present on 04/04/2023 [facility] ultrasound). Interpreted by: Joel Osullivan Jr., MD Signed by: Joel Osullivan Jr., MD 06/20/23 Final result Normal [facility] XR CHEST PORTABLEon 06-20-19 XR CHEST PORTABLE EXAMINATION:XR CHEST PORTABLE INDICATION:chst pain COMPARISON: TECHNIQUE:A single frontal view of the chest is submitted. FINDINGS: The cardiac silhouette is enlarged but stable. The pulmonary vascularity is within normal limits. There is a calcified granuloma in the medial left lower chest. No acute airspace disease is present in the lungs. There is no costophrenic angle blunting. IMPRESSION: No acute cardiopulmonary process in the chest. Interpreted by: Jaelyn Stanley DO Signed by: Jaelyn Stanley DO 06/20/23 Final result Normal [facility] Ambulatory Visit Summaryon 0 04-23-2023 Ambulatory Visit Summary MICHEAL BRICE :1940 Visit Date:04/23/2023 Ambulatory Visit Instructions Your Diagnosis Cerumen impaction BMI 34.0-34.9,adult Non-smoker Your Care Team Attending Physician - Jessie Max Primary Care Physician - Jessie Max This Is Your Medications List amlodipine (amLODIPine 5 mg Tab) terbinafine topical (Lamisil AT 1% Cream) Procedures Performed Ankle, Bowel, Cataract, Finger, Knee replacement, Stomach. Discharge Vitals Heart Rate (Peripheral) 60 Respiratory Rate 16 Blood Pressure 118/76 Height 158 cm Height 62 in Weight 89.81 kg Weight 197.582 lb BMI 35.98 What to do next Scheduled Follow-Up Appointments Sunday 1:00 PM EST Where: [facility] [place] Normal [facility] Family Medicine Office/Clini c Noteon 04-23-2023 Family Medicine Office/Clinic Note HPI Staff Micheal is an 83 year old female presenting for acute visit Onset: 1 week ago Left year feels plugged Pt has been putting Debrox in daily for 3 days . Pt does c/o pain to left year , denies any drainage History of Present Illness pt presents today with feeling like her ears are plugged. she has been using debrox for a couple days Review of Systems PHQ Score Initial Depression Screen Score: 0 SCORE ROS - Provider Constitutional: no fever, no chills, no sweats, no fatigue Respiratory: no shortness of breath, no cough, no orthopnea, no wheezing. ears feel plugged Cardiovascular: no chest pain, no palpitations, no edema. Neurologic: no headache, no dizziness, no numbness, no weakness. Physical Exam Vitals & Measurements HR: 60(Peripheral) RR: 16 BP: 118/76 SpO2: 99% HT: 62 in HT: 158 cm WT: 89.81 kg WT: 197.582 lb BMI: 35.98 General: alert, no acute distress ENMT: oral mucosa moist, no pharyngeal erythema or exudate, CANDIDO ear canals impacted with ear wax Cardiovascular: regular rate and rhythm, normal peripheral perfusion Respiratory: Lungs CTA, respirations non labored Extremities: no deformity, no trauma Neurological: oriented x 4, LOC appropriate for age, CN II-XII intact, motor strength equal & normal bilaterally, speech normal Assessment/Plan 1. Cerumen impaction (H61.20: Impacted cerumen, unspecified ear) CANDIDO ear canals impacted with cerumen. pt has been using debrox for 3 days. nurse will attempt to flush if unable to break loose will have her continue drops for 7 days then return for nurse visit ear irrigation. RTC as needed. moderate amount of cerumen irrigated from CANDIDO canals 2. BMI 34.0-34.9,adult (Z68.34: Body mass index [BMI] 34.0-34.9, adult) BMI education complete Ordered: Body Mass Index (BMI) documented 3008F Current tobacco non-user 1036F Depression Screening Negative 3352F Most recent diastolic blood pressure <80 mm Hg 3078F Patient screen for fall risk: no falls in last year or 1 fall with no injury in last year 1101F Systolic BP <130 mm Hg (Most Recent) 3074F 3. Non-smoker (Z78.9: Other specified health status) continue not smoking Ordered: Body Mass Index (BMI) documented 3008F Current tobacco non-user 1036F Depression Screening Negative 3352F Most recent diastolic blood pressure <80 mm Hg 3078F Patient screen for fall risk: no falls in last year or 1 fall with no injury in last year 1101F Systolic BP <130 mm Hg (Most Recent) 3074F Follow-up No qualifying data available Problem List/Past Medical History Ongoing BMI 36.0-36.9,adult Cerumen impaction Hypertension Spider bite Historical No qualifying data Procedure/Surgical History Ankle, Bowel, Cataract, Finger, Knee replacement, Stomach. Medications amLODIPine 5 mg Tab, 5 mg= 1 tab(s), Oral, Daily, 3 refills Lamisil AT 1% Cream, 1 ashwini, Topical, BID Allergies No Known Allergies Social History Alcohol - Denies Alcohol Use, 04/04/2023 Tobacco - Denies Tobacco Use, 04/04/2023 Never (less than 100 in lifetime) Tobacco Use:. Never Smokeless Tobacco Use:. Household tobacco concerns: No., 04/23/2023 Family History CABG - Coronary artery bypass graft: Negative: Mother, Father, Sister and Brother. Diabetes mellitus type 2: Sister. Open heart surgery: Mother. Immunizations Vaccine Date Status diphtheria/pertussis , acel/tetanus adult 08/07/2013 Recorded tetanus-diphtheria toxoids 03/19/2004 Recorded Normal [facility] Comment on above: Result Comment: Elec tronically Signed By: Jessie Max\.br\Date and Time Signed: 04/23/23 11:19 EST Transfer Inon 04-19-2023 Transfer In [id number] #1.00TIFF [facility] Auth for Release of Medical Recordson 04-18-2023 Auth for Release of Medical Records [id number] #1.00TIFF [facility] RAD - Ultrasound Reporton RAD - Ultrasound Report [id number] #1.00TIFF [facility] RAD - Ultrasound Report [id number] #1.00TIFF [facility] RAD - Ultrasound Reporton RAD - Ultrasound Report [id number]# 1.00TIFF [facility] Ambulatory Visit Summaryon 0 04-04-2023 Ambulatory Visit Summary TESS BRICEDELL Gomez :1940 Visit Date:04/04/2023 Ambulatory Visit Instructions Your Diagnosis Annual visit for general adult medical examination without abnormal findings Screening for ischemic heart disease (IHD) Encounter for screening for other disorder Hypertension Screening declined by patient Obesity due to excess calories Adult BMI 34.0-34.9 kg/sq m Your Care Team Attending Physician - Jessie Max Primary Care Physician - Jessie Max This Is Your Medications List amlodipine (amLODIPine 5 mg Tab) terbinafine topical (Lamisil AT 1% Cream) Procedures Performed Ankle, Bowel, Cataract, Finger, Knee replacement, Stomach. Discharge Vitals Heart Rate (Peripheral) 68 Blood Pressure 128/70 Height 158 cm Height 62 in Weight 87 kg Weight 191.4 lb BMI 34.85 What to do next Scheduled Follow-Up Appointments Sunday 1:00 PM EST Where: [facility] Ambulatory Visit Summary MICHEAL BRICE :1940 Visit Date:04/04/2023 Ambulatory Visit Instructions Your Diagnosis Annual visit for general adult medical examination without abnormal findings Screening for ischemic heart disease (IHD) Your Care Team Attending Physician - Jessie Max Primary Care Physician - Jessie Max This Is Your Medications List amlodipine (amLODIPine 5 mg Tab) terbinafine topical (Lamisil AT 1% Cream) Procedures Performed Ankle, Bowel, Cataract, Finger, Knee replacement, Stomach. What to do next Scheduled Follow-Up Appointments Sunday 1:00 PM EST Where: [facility] CHEMISTRYOrdered By: SYSTEM SYSTEM on 04-04-2023 Cholesterol [Mass/Vol] 210 mg/dL High 120 - 200 mg/dL [facility] Cholesterol in HDL [Mass/Vol] 43 mg/dL Invalid Interpretation Code [facility] Comment on above: Result Comment: '>= 60 LOW RISK' '<= 40 HIGH RISK' Cholesterol in LDL [Mass/Vol] 144 mg/dL High <=129mg/dL [facility] Cholesterol in VLDL [Mass/Vol] 26 mg/dL Normal 7 - 40 mg/dL [facility] Triglyceride [Mass/Vol] 129 mg/dL Normal <=149mg/dL [facility] Family Medicine Office/Clini c Noteon 04-04-2023 Family Medicine Office/Clinic Note Chief Complaint Subsequent Medicare Wellness Visit Review of Systems PHQ Score Initial Depression Screen Score: 0 SCORE Physical Exam Vitals & Measurements HR: 68(Peripheral) BP: 128/70 SpO2: 97% HT: 158 cm HT: 62 in WT: 87 kg WT: 191.4 lb BMI: 34.85 Assessment/Plan 1. Annual visit for general adult medical examination without abnormal findings (Z00.00: Encounter for general adult medical examination without abnormal findings) The patient was given a customized and personalized print out of all the current AHRQ USPSTF?s recommendations for preventative services and all current CDC recommended immunizations, relevant risk recommendations and the following patient brochures were given. Reviewed Medicare preventative services checklist. CDC-Falls Prevention and home safety screening reviewed. Patient denies any falls in last 12 months, voices no worry about falling, exhibits no problems with sitting and standing. Pt voices understanding with keeping walk way area free of clutter to prevent tripping and/or falling. [place] Advance Directives reviewed, patient does not wish to receive further info at this time. Patient denies any problems with ADL?s and Instrumental ADL?s. Cognitive screening completed with memory and clock face drawing. Immunization Record reviewed with the patient. Discussed Shingrix vaccine with educational handout and availability. Allergies and medications reviewed and up to date. Patient denies concerns with taking medication as prescribed, reviewed OTC medications with patient, medication list up to date. Blood tests were reviewed: Discussed what tests need to be updated. Labs were ordered, will have completed prior to next PCP visit. Will have labs completed with [facility]. Colonoscopy, no longer screened. Mammogram, no longer screened. Reviewed pain symptoms with patient: patient denies any pain symptoms. Reviewed all outside providers that patient follows. Last visit summary notes available in chart and/or have been requested. Follow up scheduled, SELWYN OTOOLE has been scheduled, 04/07/2024 2. Screening for ischemic heart disease (IHD) (Z13.6: Encounter for screening for cardiovascular disorders) Patient to have labs drawn for lipid panel. Will follow up with PCP at next visit or as needed. 3. Encounter for screening for other disorder (Z13.89: Encounter for screening for other disorder) Medicare provides yearly screening for alcohol and depression concerns. This is completed during our Medicare Wellness visit for those who do not have a current diagnosis of depression or concerns with alcohol use. I spent a total of 17 minutes on this date of service which included preparing to see the patient, face to face patient care, completing clinical documentation, obtaining and/or reviewing separately obtained history, counseling and educating the patient with handouts. Explanations were provided with reviewing questionnaires. AUDIT risk assessment screening completed, risk score 0, with patient denying concerns with use. Completed PHQ-2 risk assessment for depression with risk score 0, negative findings. Patient has been reminded to notify the provider if there would be a change or concerns with symptoms with fear, unable to sleep, worrying too much or feeling down and/or sad with lost of interest with daily activities. Will continue to monitor with screening yearly during Medicare wellness visits. 4. Hypertension (I10: Essential (primary) hypertension) Patient is taking amlodipine daily as directed. HTN stoplight reviewed with BP goal to be <140/90. Reviewed different factors that can alter blood pressure readings. Education handout provided with s/s to monitor for and report to provider. Patient is encouraged to increase portions of fruit, vegetables, fiber and increase exercise as much as tolerable. Reviewed importance with monitoring foods high in salt content and encouraged to limit intake, if unsure encouraged to discuss with their PCP. Encouraged to eat more chicken, fish and lean white meats and limits red meats in diet. Discussed importance with keeping BP under good control to reduce CVA risk factors. Will continue to f/u with PCP during office visits and as needed. 5. Screening declined by patient (Z53.20: Procedure and treatment not carried out because of patient's decision for unspecified reasons) Reviewed recommended bone mineral density testing for women who are 65 years of age or older. Educational handout for Bone Health reviewed and provided to the patient during today's Medicare Wellness visit. Medicare recommends testing every 5 years if results are WNL and every 2 years if results shows low bone mass. This is a deterioration of bone structure and can increase the risk of a fracture with falls. Eating a well-balanced diet with plenty of Calcium and Vitamin D will help to protect your bones. Daily weight-bearing physical activity can help build strong bones, improve bone amounts, and may reduce the risk of weakening (more content not included)... Normal [facility] Comment on above: Result Comment: Elec tronically Signed By: KIA SAMUEL CNP\.br\Date and Time Signed: 04/04/23 14:23 EST\.br\Electronically Co-Signed By: Steve Nair\.br\Date and Time Co-Signed: 04/04/23 14:21 EST Formson 04-04-2023 Forms [id number]# 1.00TIFF Normal [facility] Lipid Panelon 04-04-2023 Cholesterol [Mass/Vol] 210 mg/dL High 120-200 Fi [facility] Comment on above: Performed By: #### 2 [id number] ####[facility] [address] [place] [address] Cholesterol in HDL [Mass/Vol] 43 mg/dL Invalid Interpretation Code [facility] Comment on above: Result Comment: '>= 60 LOW RISK' '<= 40 HIGH RISK' Performed By: #### 2 [id number] ####[facility] [address] [place] [address] Cholesterol in LDL [Mass/Vol] 144 mg/dL High <=129 [facility] Comment on above: Performed By: #### 2 [id number] ####[facility] [address] [place] [address] Cholesterol in VLDL [Mass/Vol] 26 mg/dL Normal 7-40 [facility] Comment on above: Performed By: #### 2 [id number] ####[facility] [address] [place] [address] Triglyceride [Mass/Vol] 129 mg/dL Normal <=149 [facility] Comment on above: Performed By: #### 2 [id number] ####[facility] [address] [place] [address] Patient Educationon 04-04-19 24 Patient Education Caregiving Fall Prevention in the Home, Adult Falls can cause injuries and affect people of all ages. There are many simple things that you can do to make your home safe and to help prevent falls. Ask for help when making these changes, if needed. What actions can I take to prevent falls? General instructions ? Use good lighting in all rooms. Replace any light bulbs that burn out, turn on lights if it is dark, and use night-lights. ? Place frequently used items in zysg-he-qdigl places. Lower the shelves around your home if necessary. ? Set up furniture so that there are clear paths around it. Avoid moving your furniture around. ? Remove throw rugs and other tripping hazards from the floor. ? Avoid walking on wet floors. ? Fix any uneven floor surfaces. ? Add color or contrast paint or tape to grab bars and handrails in your home. Place contrasting color strips on the first and last steps of staircases. ? When you use a stepladder, make sure that it is completely opened and that the sides and supports are firmly locked. Have someone hold the ladder while you are using it. Do not climb a closed stepladder. ? Know where your pets are when moving through your home. What can I do in the bathroom? ? Keep the floor dry. Immediately clean up any water that is on the floor. ? Remove soap buildup in the tub or shower regularly. ? Use nonskid mats or decals on the floor of the tub or shower. ? Attach bath mats securely with double-sided, nonslip rug tape. ? If you need to sit down while you are in the shower, use a plastic, nonslip stool. ? Install grab bars by the toilet and in the tub and shower. Do not use towel bars as grab bars. What can I do in the bedroom? ? Make sure that a bedside light is easy to reach. ? Do not use oversized bedding that reaches the floor. ? Have a firm chair that has side arms to use for getting dressed. What can I do in the kitchen? ? Clean up any spills right away. ? If you need to reach for something above you, use a sturdy step stool that has a grab bar. ? Keep electrical cables out of the way. ? Do not use floor sudanese or wax that makes floors slippery. If you must use wax, make sure that it is non-skid floor wax. What can I do with my stairs? ? Do not leave any items on the stairs. ? Make sure that you have a light switch at the top and the bottom of the stairs. Have them installed if you do not have them. ? Make sure that there are handrails on both sides of the stairs. Fix handrails that are broken or loose. Make sure that handrails are as long as the staircases. ? Install non-slip stair treads on all stairs in your home. ? Avoid having throw rugs at the top or bottom of stairs, or secure the rugs with carpet tape to prevent them from moving. ? Choose a carpet design that does not hide the edge of steps on the stairs. ? Check any carpeting to make sure that it is firmly attached to the stairs. Fix any carpet that is loose or worn. What can I do on the outside of my home? ? Use bright outdoor lighting. ? Regularly repair the edges of walkways and driveways and fix any cracks. ? Remove high doorway thresholds. ? Trim any shrubbery on the main path into your home. ? Regularly check that handrails are securely fastened and in good repair. Both sides of all steps should have handrails. ? Install guardrails along the edges of any raised decks or porches. ? Clear walkways of debris and clutter, including tools and rocks. ? Have leaves, snow, and ice cleared regularly. ? Use sand or salt on walkways during winter months. ? In the garage, clean up any spills right away, including grease or oil spills. What other actions can I take? ? Wear closed-toe shoes that fit well and support your feet. Wear shoes that have rubber soles or low heels. ? Use mobility aids as needed, such as canes, walkers, scooters, and crutches. ? Review your medicines with your health care provider. Some medicines can cause dizziness or changes in blood pressure, which increase your risk of falling. Talk with your health care provider about other ways that you can decrease your risk of falls. This may include working with a physical therapist or principal trainer to improve your strength, balance, and endurance. Where to find more information ? Centers for Disease Control and Prevention, STEADI: www.cdc.gov ? National [place] on Aging: www.piyush.nih.gov Contact a health care provider if: ? You are afraid of falling at home. ? You feel weak, drowsy, or dizzy at home. ? You fall at home. Summary ? There are many simple things that you can do to make your home safe and to help prevent falls. ? Ways to make your home safe include removing tripping hazards and installing grab bars in the bathroom. ? Ask for help when making these changes in your home. This information is not intended to replace advice given to you by your health ca (more content not included)... [facility] Physician Orderon 03-31-2023 Physician Order [id number] #1.00TIFF [facility] Ambulatory Visit Summaryon 0 03-30-2023 Ambulatory Visit Summary MICHEAL BRICE :1940 Visit Date:03/30/2023 Ambulatory Visit Instructions Your Diagnosis RUQ pain Hypertension Ringworm Tests Performed US Abdomen, Limited -- Results Pending -- Please visit your patient portal for your results or contact your primary care physician. Your Care Team Attending Physician - KIA SAMUEL CNP Primary Care Physician - Jessie Max This Is Your Medications List amlodipine (amLODIPine 5 mg Tab) terbinafine topical (Lamisil AT 1% Cream) Discharge Vitals Heart Rate (Peripheral) 51 Blood Pressure 124/60 Height 155 cm Height 61 in Weight 87.6 kg Weight 192.72 lb BMI 36.46 What to do next Scheduled Follow-Up Appointments Sunday 1:00 PM EST Where: [facility] Family Medicine Office/Clini c Noteon 03-30-2023 Family Medicine Office/Clinic Note Chief Complaint ED follow up HPI Staff Patient of Alexandro Wilburn NP presents for ED follow up. ER followup: Hospital: [facility] Visit date: 03/29/2023 Symptoms the patient presented with: elevated BP and Abdomen pain Current concerns: pain level. Patient is worried pain will return as ED sent her home with 1/2 pain pill and she already took it. Does not want to be on pain medicine. Additional concerns: Patient noticed a dry spot on right ear lobe and is not sure how long it has been there. History of Present Illness 83 year old female patient of Holger presents today for ED follow-up from 03/29/2023. She went to the ED after consuming gravy she made from ham broth that had been in her refrigerator for one week and experiencing epigastric pain and nausea. She was noted to have an elevated blood pressure in the ED. She had a CT of the abdomen which showed a mild distended gallbladder without gall stones. CT of the pelvis show sigmoid diverticulosis and an enlarged node medial to the right common femoral vein. Laboratory testing shows elevated WBC-14.0, slight elevation of the BUN at 19.0, and a slightly elevated glucose at 118. Liver enzymes and total bilirubin are WNL. Today she reports she continues with RUQ pain. She has eaten breakfast today and did not experience nausea. She took the other half of the norco from the ED and states her pain is a 3 currently. She has lost 4 pounds since her visit on 03/21/2023. Her blood pressure is WNL today at 124/60. This provider explained the elevation last PM was due to the pain she was experiencing. She has an additional concern about an area on the right ear lobe. She jimenez snot know how long the area has been there but states she reached up and felt it today. She has not used any medication on the area. Review of Systems PHQ Score Initial Depression Screen Score: 0 SCORE Constitutional: no fever, no chills, no sweats, no weakness Skin: no Jaundice, no rash, no lesions, nopetechiae ENMT: no ear pain, no sore throat, no congestion, no hoarseness Respiratory: no shortness of breath, no cough, no orthopnea, no wheezing Cardiovascular: no chest pain, no palpitations, no edema Gastrointestinal: no nausea, no vomiting, no diarrhea, no GI bleeding Genitourinary: no dysuria, no hematuria, no discharge, no pain Musculoskeletal: no back pain, no trauma Neurologic: no headache, no dizziness, no numbness, no weakness Psychiatric: no sleeping problems, no irritability, no mood swings/depression. Heme/Lymph: no bleeding tendency, no bruising tendency, no petechiae, no swollen nodes Allergy/Immunologic: no seasonal allergies, no food allergies, no recurrent infections, no impaired immunity Additional ROS info: Except as noted in the above Review of Systems and in the History of Present Illness all other systems have been reviewed and are negative or noncontributory. Physical Exam Vitals & Measurements HR: 53(Peripheral) BP: 124/60 SpO2: 93% HT: 61 in HT: 155 cm WT: 87.6 kg WT: 192.72 lb BMI: 36.46 General: alert, no acute distress Skin: warm, dry, right ear lobe- red circular area with some crusting in the center Head: no trauma, normocephalic Neck: Trachea midline, no adenopathy, no tenderness Eye: normal conjunctiva, sclera clear Cardiovascular: regular rate and rhythm, normal peripheral perfusion Respiratory: Lungs CTA, respirations non labored Chest wall: no deformity. Gastrointestinal: soft, non distended, RUQ moderate tenderness, BS present x 4 Extremities: no deformity, no trauma Neurological: oriented x 4, LOC appropriate for age speech normal Psychiatric: cooperative, affect appropriate for age, normal judgement, normal psychiatric thoughts. Assessment/Plan 1. RUQ pain (R10.11: Right upper quadrant pain) Continues with RUQ pain Encourage to limit fatty foods Reviewed and discussed CT results with patient Abdominal US, Complete ordered- awaiting results f/u with pcp Ordered: 2. Hypertension (I10: Essential (primary) hypertension) Blood pressure WNL- 124/60 Continue with amlodipine 5 mg daily- no refills needed today 3. Ringworm (B35.9: Dermatophytosis, unspecified) Discussed with patient the diagnosis Encouraged to apply the terbinafine BID until clear f/u with pcp Ordered: terbinafine topical, 1 ashwini, Topical, BID, 12 gram, Refill(s) 0, [id number], 155, cm, 03/30/23 10:41:00 EST, Height/Length Dosing, 87.6, kg, 03/30/23 10:41:00 EST, Weight Dosing Follow-up No qualifying data available Patient Education Abdominal Pain, Adult, Vuft-dg-Ttqb Problem List/Past Medical History Ongoing BMI 36.0-36.9,adult Hypertension Spider bite Historical No qualifying data Medications amLODIPine 5 mg Tab, 5 mg= 1 tab(s), Oral, Daily, 3 refills Lamisil AT 1% Cream, 1 ashwini, Topical, BID Allergies No Known Allergies Social History Tobacco Never (less than 100 in lifetime) Tobacco Use:. Never Smokeless Tobacco Use:. Household tobacco co (more content not included)... Normal [facility] Comment on above: Result Comment: Elec tronically Signed By: KIA SAMUEL CNP.sonido\Date and Time Signed: 03/30/23 11:20 EST Patient Educationon 03-30-19 Patient Education Gastroenterology Abdominal Pain, Adult Many things can cause belly (abdominal) pain. Most times, belly pain is not dangerous. Many cases of belly pain can be watched and treated at home. Sometimes, though, belly pain is serious. Your doctor will try to find the cause of your belly pain. Follow these instructions at home: Medicines ? Take uxej-kjg-unhikeo and prescription medicines only as told by your doctor. ? Do not take medicines that help you poop (laxatives) unless told by your doctor. General instructions ? Watch your belly pain for any changes. ? Drink enough fluid to keep your pee (urine) pale yellow. ? Keep all follow-up visits as told by your doctor. This is important. Contact a doctor if: ? Your belly pain changes or gets worse. ? You are not hungry, or you lose weight without trying. ? You are having trouble pooping (constipated) or have watery poop (diarrhea) for more than 2?3 days. ? You have pain when you pee or poop. ? Your belly pain wakes you up at night. ? Your pain gets worse with meals, after eating, or with certain foods. ? You are vomiting and cannot keep anything down. ? You have a fever. ? You have blood in your pee. Get help right away if: ? Your pain does not go away as soon as your doctor says it should. ? You cannot stop vomiting. ? Your pain is only in areas of your belly, such as the right side or the left lower part of the belly. ? You have bloody or black poop, or poop that looks like tar. ? You have very bad pain, cramping, or bloating in your belly. ? You have signs of not having enough fluid or water in your body (dehydration), such as: ? Dark pee, very little pee, or no pee. ? Cracked lips. ? Dry mouth. ? Sunken eyes. ? Sleepiness. ? Weakness. ? You have trouble breathing or chest pain. Summary ? Many cases of belly pain can be watched and treated at home. ? Watch your belly pain for any changes. ? Take trjd-pow-vngbvvh and prescription medicines only as told by your doctor. ? Contact a doctor if your belly pain changes or gets worse. ? Get help right away if you have very bad pain, cramping, or bloating in your belly. This information is not intended to replace advice given to you by your health care provider. Make sure you discuss any questions you have with your health care provider. Document Revised: 07/14/2019 Document Reviewed: 07/14/2019 [employer] Patient Education ? 2022 [employer]. Normal [facility] RAD - CT Reporton 03-30-2023 RAD - CT Report [id number] #1.00TIFF Normal [facility] Family Medicine Office/Clini c Noteon 03-21-2023 Family [...] concerns: No., 02/05/2023 Immunizations Vaccine Date Status diphtheria/pertussis , acel/tetanus adult 08/07/2013 Recorded tetanus-diphtheria toxoids 03/19/2004 Recorded Normal [facility] Comment on above: Result Comment: Elec tronically Signed By: Jessie Max\.br\Date and Time Signed: 03/21/23 13:39 EST ED Note-Physicianon 02-08-20 ED Note-Physician [id number]# 1.00TIFF [facility] Cardiovascular Reporton 01-18 Cardiovascular Report [id number] #1.00TIFF [facility] Consultation Noteon 02-07-20 Consultation Note [id number] #1.00TIFF [facility] Echocardiographyon Echocardiography [id number] #1.00TIFF [facility] Ambulatory Visit Summaryon 04-07-2022 Ambulatory Visit Summary [...] 1:00 PM EST With: Jessie Max Where: [facility] Family Medicine Office/Clini c Noteon 02-05-2023 Family Medicine Office/Clinic Note HPI Staff Micheal is a 82 year old female presenting for ER follow up ER followup: Hospital: [facility] Visit date: 01-29-23 Symptoms the patient presented [...] will try to obtain those results from [facility]. pt stated taking medication [...] Daily, # 90 tab(s), Refills(s) 0, Pharmacy: [id number], 155, cm, 02/05/23 13:30:00 EST, Height/Length Dosing, 88.8, kg, 02/05/23 13:30:00 EST, Weight Dosing cephalexin, 500 mg = 1 cap(s), Oral, q12hr, # 20 cap(s), Refills(s) 0, Pharmacy: [facility] #[id number], 155, cm, 01/03/23 10:31:00 EDT, Height/Length Dosing, [...] concerns: No., 02/05/2023 Immunizations Vaccine Date Status diphtheria/pertussis , acel/tetanus adult 08/07/2013 Recorded tetanus-diphtheria toxoids 03/19/2004 Recorded Normal [facility] Comment on above: Result Comment: Elec tronically Signed By: Terrance BAILON, Jessie Moreno\.br\Date and Time Signed: 02/05/23 14:00 EST ED Note-Physicianon 02-01-20 ED Note-Physician [id number] #1.00TIFF Normal [facility] RAD - MISCon 01-29-2023 RAD - MIS [id number] #1.00TIFF Normal [facility] Ambulatory Visit Summaryon 1 Ambulatory Visit [...] BMI 37 Allergies No Known Allergies Normal [facility] Family Medicine Office/Clini c Noteon 01-03-2023 [...] q12hr, # 20 cap(s), Refills(s) 0, Pharmacy: [facility] #[id number], 155, cm, 01/03/23 10:31:00 EDT, Height/Length Dosing, 88.9, kg, 01/03/23 10:31:00 EDT, Weight Dosing 2. BMI 37.0-37.9, adult (Z68.37: Body mass index [BMI] 37.0-37.9, adult) BMI education complete Ordered: cephalexin, 500 mg = 1 cap(s), Oral, q12hr, # 20 cap(s), Refills(s) 0, Pharmacy: [facility] #[id number], 155, cm, 01/03/23 10:31:00 EDT, Height/Length Dosing, 88.9, kg, 01/03/23 10:31:00 EDT, Weight Dosing 3. Non-smoker (Z78.9: Other specified health status) continue not smoking Ordered: cephalexin, 500 mg = 1 cap(s), Oral, q12hr, # 20 cap(s), Refills(s) 0, Pharmacy: [facility] #[id number], 155, cm, 01/03/23 10:31:00 EDT, Height/Length Dosing, [...] Tobacco Use:. Household tobacco concerns: No., 01/03/2023 [facility] Comment on above: Result Comment: Elec tronically Signed By: Terrance BAILON, Jessie Moreno\.br\Date and Time Signed: 01/03/23 11:29 EDT Office Visiton 11-08-2022 Follow-up visit [id number] Micheal Brice 1940 F Date Provider Department Center 11/08/2022 [id number] CACERES [facility] Family History Problem Relation Age of Onset Coronary artery disease Mother Other Mother Family Status - Relation Status Age at Mother Level of Service:43795 GA OFFICE/OUTPATIENT NEW MODERATE MDM 45-59 MINUTES Normal [facility] Vital Signs Date Time Vital Sign Value Performing Clinician Faci michel 05-09-2022 08:07-0500 Body height 157.5 cm Luis Felipe Lopes MD Work Phone: [facility] 05-09-2022 08:07-0500 Body mass index (BMI) [Ratio] 37.49 kg/m2 Luis Felipe Lopes MD Work Phone: [facility] 05-09-2022 08:07-0500 Body weight 92.99 kg Luis Felipe Lopes MD Work Phone: [facility] 04-18-2022 08:32-0500 Body height 157.5 cm Luis Felipe Lopes MD Work Phone: [facility] 04-18-2022 08:32-0500 Body mass index (BMI) [Ratio] 37.49 kg/m2 Luis Felipe Lopes MD Work Phone: [facility] 04-18-2022 08:32-0500 Body weight 92.99 kg Luis Felipe Lopes MD Work Phone: [facility] Encounters Encounter Date Encounter Type Care Provider Facility Start: 04-07-2024 [facility] Start: 06-27-2023 ambulatory Jessie Wilburn Facility: [facility] Start: 06-26-2023 ambulatory Jessie L Terrance Facility: [id number] Start: 06-20-2023 Evaluation and management of inpatient JESSIE WILBURN [facility] Start: 04-23-2023 End: 04-24-2023 ambulatory Jessie L Terrance Facility: [facility] Start: 04-04-2023 End: 04-05-2023 ambulatory KIA A JIMMIE Facility:[facility] Start: 04-04-2023 End: 04-04-2023 Lab Drop off KIA SAMUEL [facility] Start: 03-30-2023 End: 03-31-2023 ambulatory KIA A JIMMIE Facility: [facility] Start: 03-21-2023 End: 03-22-2023 ambulatory Jessie L Terrance Facility: [facility] Start: 03-16-2023 ambulatory KIA JIMMIE Facility : [facility] Start: 02-05-2023 End: 02-06-2023 ambulatory Jessie L Terrance Facility: [facility] Start: 01-03-2023 End: 01-04-2023 ambulatory Jessie L Terrance Facility: [facility] Start: 11-08-2022 End: 11-08-2022 ambulatory [facility] Start: 05-09-2022 End: 05-09-2022 ambulatory PHYSICIAN NO [facility] Start: 05-09-2022 End: 05-09-2022 Office outpatient visit 15 minutes Luis Felipe Lopes MD Work Phone: [facility] Comment on above: History of total rig ht knee replacement (Primary Dx) Start: 04-28-2022 Erna Fitzgerald MA [facility] Start: 04-18-2022 End: 04-22-2022 ambulatory PHYSICIAN NO [facility] Start: 04-18-2022 End: 04-18-2022 Office outpatient new 30 minutes Luis Felipe Lopes MD Work Phone: [facility] Comment on above: History of total rig ht knee replacement (Primary Dx) Start: 03-29-2022 End: 03-30-[address] MIGEL RAMSEY Facility:[facility] Procedures Date Procedure Procedure Detail Performing Clinician Ankle region structu re (body structure) KIA SAMUEL Comment on above: right Arthroplasty of knee KIA SAMUEL Comment on above: 2009, right Cataract (disorder) KIA TRAVIS Comment on above: bilateral 2006 Finger structure (sanjiv dy structure) KIA SAMUEL Intestinal structure (body structure) KIA SAMUEL Comment on above: obstruction Stomach structure (b sanford structure) KIA SAMUEL Comment on above: 1970 Plan of Treatment Date Care Activity Detail Author Start: 08-08-2023 Tetanus vaccination Tetanus: Every 10yrs [facility] Start: 05-08-2023 End: 05-08-2023 Patient encounter procedure 05/08/2023 Office Visit Orthopedic Surgery Luis Felipe Lopes MD [address] [place] [address] [facility] Start: 05-09-2022 End: 05-09-2022 Patient encounter procedure 05/09/2022 Office Visit Orthopedic Surgery Luis Felipe Lopes MD [address] [place] [address] [facility] Start: 11-17-2021 Influenza vaccination Sequential Influenza Vaccine (#1) [facility] Start: 2007 Fall risk assessment Falls Risk Assessment [facility] Start: 2007 Pneumococcal Vaccine: Age 65+ (1 - PCV) Pneumococcal Vaccine: Age 65+ (1 - PCV) [facility] Start: 1992 Administration of herpes zoster vaccine Zoster Vaccines (1 of 2) [facility] Start: 1982 Screening for malignant neoplasm of breast Mammogram [facility] Start: 1954 Depression screening using PHQ-9 (Patient Health Questionnaire 9) score Depression Screening (PHQ-2/9) [facility] Start: 1945 History and physical examination, annual for health maintenance Wellness Visit [facility] Start: 1940 COVID-19 Vaccine (#1) COVID-19 Vaccine (#1) [facility] Start: 1940 Screening for osteoporosis Dexa Scan [facility] Immunizations Immunization Date Immunization Notes Care Provider Harmony vu 08-07-2013 tetanus toxoid, redu maryuri diphtheria toxoid, and acellular pertussis vaccine, adsorbed KIA SAMUEL [facility] 03-19-2004 tetanus and diphther ia toxoids, adsorbed, preservative free, for adult use (2 Lf of tetanus toxoid and 2 Lf of diphtheria toxoid) KIA SAMUEL [facility] Payers Date Payer Category Payer Private Health Insurance [id number] 2021 Medicare [employer]INI[employer] ACCESS/ENHANCED/CORE PPO/RPPO [id number] 2021-Present [phone] [address] [place] [address] [id number] 2007 Medicare [id number] 1959 Unknown [id number] 1940 Unknown [id number] 2..840.1.402240.3.579.2 .593 1942 Unknown [id number] 2..840.1.075884.3.579.2 .903 1942 Unknown [id number] 2..840.1.794372.3.579.2 .903 1942 Unknown [id number] 2.16.840.1.830397.3.579.2 .903 1942 Unknown [id number] 2.16.840.1.480241.3.579.2 .174 1942 Unknown [id number] 2.16.840.1.222720.3.579.2 .727 1942 Unknown [id number] 2.16.840.1.048140.3.579.2 .727 1942 Unknown [id number] 2.16.840.1.357363.3.579.2 .727 1942 Unknown [id number] 2.16.840.1.916853.3.579.2 .727 1942 Unknown [id number] 2.16.840.1.716390.3.579.2 .727 1942 Unknown [id number] 2.16.840.1.499080.3.579.2 .727 1942 Unknown [id number] 2.16.840.1.725951.3.579.2 .727 1942 Unknown [id number] 2.16.840.1.651162.3.579.2 .727 1942 Unknown [id number] 2.16.840.1.714473.3.579.2 .727 Social History Date Type Detail Facility Tobacco smoking status [facility] Tobacco smoking consumption unknown [facility] Start: 1940 Sex Assigned At Not on file [facility] Start: 04-08-2022 End: 05-09-2022 Exposure to SARS-CoV-2 (event) Not sure [facility] Start: 04-04-2023 Tobacco smoking status Never smoked tobacco (finding) [facility] Tobacco smoking status Never [facility] Sex Assigned At Female [facility] Clinical Notes 03-30-2022 to 06-26-2023 Luis Felipe Lopes MD - 05/09/2022 8:48 AM ESTTelephone Encounter - Niurka Fitzgerald MA - 04/28/2022 3:19 PM ESTTelephone Encounter - Niurka Fitzgerald MA - 04/28/2022 3:19 PM EST Note Date & Type Note Facility 06-26-2023 Note [id number] [facility] 11-08-2022 Note Cardiology Clinic No te Chief [...] evaluation -Discussed starting patient on statin and beta-neto. She declines at this time -Optimize medical [...] or concerns. Rashawn Caceres MD Interventional Cardiology [facility] 11-08-2022 Note New patient here to establish [...] All other systems reviewed and are negative. [facility] 05-09-2022 History of Presen t illness Narrative [...] advise her we really want to picker feeder her exercise and activity level. We will see her in a year for reevaluation. No orders of the defined types were placed in this encounter. Return in about 1 year (around 05/09/2023) for Annual physical, xrays. Note: To expedite correspondence this note was generated by [employer] voice recognition software. Some grammatical or spelling errors may occur using the system. documented in this encounter [facility] 04-28-2022 Telephone encounter Note Patient called with question with whether she should finish keflex , she was instructed to finish antibiotic . [facility] 04-28-2022 Miscellaneous Notes Patient called with question with whether she should finish keflex , she was instructed to finish antibiotic . documented in this encounter [facility] 04-18-2022 History of Presen t illness Narrative [...] expedite correspondence this note was generated by [employer] voice recognition software. Some grammatical or spelling errors may occur using the system. documented in this encounter [facility] 03-30-2022 Note PROCEDURE: XR ELBOW RT MIN [...] authenticated by: MIGEL RAMSEY Date: 2022-03-30 12:47 [facility] 03-30-2022 Note PROCEDURE: XR KNEE R T [...] authenticated by: MIGEL RAMSEY Date: 2022-03-30 12:42 [facility] Evaluation + Plan note Future Appointments Appointment Date:04/07/2024 01:00:00 PM Scheduled Provider: Location:[facility] Appointment Type: Medicare Wellness Subsequent [facility] Evaluation note Diagnosis History of total right knee replacement- Primary [facility] N[facility] No data available for this section [facility] No data available for this section [facility] No data available for this section [facility] Summary Purpose Family History No Family History Records FoundNo Family History Records FoundNo Family History Records Found No data available for this section No Family History Records FoundNo Family History Records Found Advance Directives No Advanced Directives Records FoundNo Advanced Directives Records FoundNo Advanced Directives Records FoundNo Advanced Directives Records FoundNo Advanced Directives Records Found Additional Source Comments INFORMATION SOURCE (unrecogn ized section and content) DATE CREATED AUTHOR 04/01/2022 [facility] DATE CREATED AUTHOR AUTHOR'S ORGANIZ ATION 05/10/2022 [facility] DATE CREATED AUTHOR AUTHOR'S ORGANIZ ATION 11/09/2022 [facility] DATE CREATED AUTHOR AUTHOR'S ORGANIZ ATION 06/22/2023 Willa Preciado [facility] DATE CREATED AUTHOR AUTHOR'S ORGANIZ ATION 06/27/2023 [facility] Reason for Visit (unrecogniz ed section and [...] Care Teams (unrecognized sec tion and content) 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 [facility], [facility]. provides no warranty or guarantee of the accuracy or completeness of information in this document.
== END 2023-06-28 08:54 | disposition home or self-care (01) ==
LOC: US 08:53
PROVIDERS: PCP Family Medicine; Visit Provider Nurse Practitioner
DX: R22.32 Localized swelling, mass and lump, left upper limb (principal)
CPT/HCPCS: 76604

== ENCOUNTER 2024-04-25 08:29 | Outpatient (OUT) | payer MEDICARE, OTHER, SELFPAY ==
--- NOTE | 2024-04-25 08:33 | XR_ITS ---
The [address] [address] Patient Name: MICHEAL BRICE MRN: [id number] date: 1940 Sex: F Assigned Patient Location: [facility] Current Patient Location: Accession/Order Number: [id number] Exam Date: 04/25/2024 08:40 Report Date: 04/28/2024 08:34 At the request of: CAMILA WILBURN Procedure: XR DEXA axial skeleton EXAMINATION: XR DEXA axial skeleton, 04/25/2024 8:40 AM EST HISTORY: Primary Ovarian Failure COMPARISON: None. TECHNIQUE: Dual-energy X-ray absorptiometry (DEXA) bone density study performed for the axial skeleton. FINDINGS: Bone mineral density AP spine L1-L4 measures 1.056 g/sq cm. T score -1.0. Normal Lowest bone mineral density is in the right femoral trochanter measuring 0.719 g/sq cm. T score -1.1. Osteopenia XR/XR DEXA axial skeleton IMPRESSION: Osteopenia. Moderate fracture risk Pharmacologic treatment recommendations * No uniform recommendation applies to all patients. Management plans must be individualized. * Consider initiating pharmacologic treatment in postmenopausal women and men >= 50 years of age who have the following: Primary fracture prevention: * T-score <= - 2.5 at the femoral neck, total hip, lumbar spine, 33% radius (some uncertainty with existing data) by DXA. * Low bone mass (osteopenia: T-score between - 1.0 and - 2.5) at the femoral neck or total hip by DXA with a 10-year hip fracture risk >= 3% or a 10-year major osteoporosis-related fracture risk >= 20% (i.e., clinical vertebral, hip, forearm, or proximal humerus) based on the [place]-adapted FRAXregistered model. Secondary fracture prevention: * Fracture of the hip or vertebra regardless of BMD [4, 5]. * Fracture of proximal humerus, pelvis, or distal forearm in persons with low bone mass (osteopenia: T-score between - 1.0 and - 2.5). The decision to treat should be individualized in persons with a fracture of the proximal humerus, pelvis, or distal forearm who do not have osteopenia or low BMD [12, 13]. Aris Riddle MS SL, Zaid KL, Jamila EM, Lucio KG, AJ, Martha ES. The clinician's guide to prevention and treatment of osteoporosis. Osteoporos Int. 2021;33(10):6261-8827. doi: 10.1007/h76618-275-19653-g. Epub 2021Jul 14. Erratum in: Osteoporos Int. 2021Oct 13;: PMID: [id number]; PMCID: [id number]. Electronically authenticated by: HENRIK WALSH Date: 04/28/2024 08:34
--- OUTSIDE RECORDS SUMMARY | 2024-04-25 08:51 | XMS_ITS | CCD ---
Author Organization [facility] Care Team Providers Care Home Health Provider Name Role Phone DR MIGEL RAMSEY Consulting Unavailable FAWWAD, ARAIZA H Primary Care Unavailable FAWWAD, ARAIZA H Attending Unavailable FAWWAD, ARAIZA H Admitting Unavailable FAWWAD, ARAIZA H Consulting Unavailable No, Physician Primary Care Provider Unavailabl e LUIS FELIPE LOPES Attending Unavailable NO, PHYSICIAN Primary Care Unavailable NO, PHYSICIAN Primary Care Unavailable LUIS FELIPE LOPES Referring Unavailable FADLUIS FELIPE De La Vega Admitting Unavailable NO, PHYSICIAN Primary Care Unavailable FADLUIS FELIPE De La [place] Attending Unavailable STEVE PEGUERO Attending Unavailable Cosmo Camila L Primary Care Physician [phone] COSMO, CAMILA Primary Care Unavailable OLEA, RAMON A Consulting Unavailable BARBIAZARIANJOVAN Attending Unavailable GHAZARIANJOVAN Admitting Unavailable Cosmo VALIDATION ENGINEER - POWER CHISEL OPERATOR, Camila Primary Care Provider [phone] IACOB, RADHIKA Referring Unavailable COSMO, CAMILA Primary Care Unavailable IACOB, RADHIKA Referring Unavailable COSMO, CAMILA Primary Care Unavailable COSMO, CAMILA Primary Care Unavailable MICHELLE COX Admitting Unavailable MICHELLE COX Attending Unavailable OLEA, RAMON A Admitting Unavailable OLEA, RAMON A Attending Unavailable COSMO, CAMILA Primary Care Unavailable MICHELLE COX Consulting Unavailable IACOB, RADHIKA Referring Unavailable COSMO, CAMILA Primary Care Unavailable IACOB, RADHIKA Referring Unavailable COSMO, CAMILA Primary Care Unavailable OLEA, RAMON Referring Unavailable NO PCP, NO PCP Primary Care Unavailable Cosmo, Camila L Attending Unavailable Cosmo, Camila L Attending Unavailable KIA SAMUEL Attending Unavailable Cosmo, Camila Moreno Attending Unavailable Cosmo, Camila L Attending Unavailable Cosmo, Camila L Attending Unavailable Cosmo, Camila L Attending Unavailable Cosmo, Camila L Admitting Unavailable Cosmo, Camila L Attending Unavailable Cosmo, Camila L Admitting Unavailable Cosmo, Camila L Admitting Unavailable Cosmo, Camila L Attending Unavailable Cosmo, Camila L Attending Unavailable Cosmo, Camila L Attending Unavailable Cosmo, Camila L Attending Unavailable Cosmo, Camila L Attending Unavailable Cosmo, Camila L Admitting Unavailable Cosmo, Camila L Attending Unavailable Allergies Allergy Classification Reported Allergen(s) Allergy Type Date of Onset Reaction(s) Facility (1 source) Corticosteroids Drug allergy (disorder) [facility] Repository Medications Current Medications Medication Drug Class(es) Dates Sig (Normalized) Sig (Original) Acetaminophen (4 sources) Start: 07-31-2023 acetaminophen (TYLENOL) tablet 650 mg Start: 07-18-2023 End: 07-18-2023 acetaminophen (TYLENOL) tabl et 650 mg Start: 07-17-2023 End: 07-17-2023 acetaminophen (TYLENOL) tabl et 650 mg acetaminophen 325 mg / HYDROcodone bitartrate 5 mg oral tablet (1 source) Opioid Agonist Start: 07-18-2023 End: 07-25-2023 HYDROcodone-acetaminophen (NORCO) 5-325 MG per tablet Indications: Incarcerated ventral hernia , Post-op pain Take 1 tablet by mouth every 6 hours as needed for Pain (may use 1 or 2) for up to 7 days. Max Daily Amount: 4 tablets 12 tablet 0 07/18/2023 07/25/2023 Active acetaminophen 325 mg / oxyCODONE hydrochloride 5 mg oral tablet (1 source) Opioid Agonist Start: 07-31-2023 oxyCODONE-acetaminophen (PERCOCET) 5-325 MG per tablet 1 tablet Acidophilus Probiotic Blend (1 source) Start: 06-26-2023 take 1 capsule by mouth twice daily Acidophilus Probiotic Blend 1 cap(s), Oral, BID, Refill(s) 0 Start Date: 06/26/23 Status: Ordered amLODIPine 5 mg oral tablet (6 sources) Dihydropyridine Calcium Channel Li Start: 03-21-2023 End: 11-30-2024 take 1 tablet by mouth once daily amLODIPine 5 mg Tab 5 mg = 1 tab(s), Oral, Daily, X 90 day(s), # 90 tab(s), Refills(s) 3, Pharmacy: [facility] #[id number], 158, cm, 10/01/23 15:37:00 EDT, Height/Length Dosing, 84, kg, 10/01/23 15:37:00 EDT, Weight Dosing Start Date: 12/06/23 Stop Date: 11/30/24 Status: Ordered cephalexin 500 mg oral capsule (3 sources) Cephalosporin Antibacterial Start: 04-18-2022 End: 08-03-2023 take 1 capsule by mouth four times daily cephALEXin (KEFLEX) 500 MG capsule Take 1 (one) capsule (500 mg total) by mouth 4 (four) times a day for 10 days . 40 capsule 1 04/18/2022 04/28/2022 Active 50 ml clindamycin 18 mg/ml injection (2 sources) Lincosamide Antibacterial Start: 07-31-2023 clindamycin (CLEOCIN) 900 mg in dextrose 5 % 50 mL IVPB Start: 07-31-2023 End: 07-31-2023 clindamycin (CLEOCIN) 600 mg in dextrose 5 % 50 mL IVPB doxycycline hyclate 100 mg oral tablet (1 source) Tetracycline-class Drug Start: 08-03-2023 End: 08-10-2023 take 1 tablet by mouth twice daily doxycycline hyclate (VIBRA-TABS) 100 MG tablet Take 1 tablet by mouth 2 times daily for 7 days 14 tablet 0 08/03/2023 08/10/2023 Active 0.4 ml enoxaparin sodium 100 mg/ml prefilled syringe (2 sources) Low Molecular Weight Heparin Start: 08-03-2023 enoxaparin (LOVENOX) injection 40 mg Start: 07-18-2023 inject 40 mg by subc utaneous injection once daily 40 mg, SubCUTAneous, DAILY, First dose on Sun07/18/23 at 0900, Until Discontinued Indication of Use: Prophylaxis-DVT/PE Administer by deep subCUTAneous injection with pt lying down. Alternate injection sites on abdominal wall. Do not rub site after injection. Check with provider prior to any invasive procedure. Post-op lactobacillus rhamnosus gg [id number] unt oral capsule (4 sources) Start: 06-22-2023 take 1 capsule by mouth twice daily at mealtime lactobacillus (CULTURELLE) capsule Take 1 capsule by mouth 2 times daily (with meals) 60 capsule 0 06/22/2023 Active 50 ml magnesium sulfate 40 mg/ml injection (1 source) Start: 07-31-2023 2,000 mg, IntraVENous, at 25 mL/hr, Administer over 2 Hours, PRN, Other, Magnesium Replacement, Starting on Sun07/31/23 at 1826 Mag Lab Replacement Action 1.4-1.6 mg/dL &a mp;nbsp; 2,000 mg Total Dose Given as 1,000 mg IVPB x 2 doses or 2,000 mg IVPB x 1 dose &nb sp; &nbs p; &nbsp ; & nbsp; &nbs p;1.0-1.3 mg/dL 4,000 mg Total Dose &nb sp; &nbs p; &nbsp ; Given as 1,000 mg IVPB x 4 doses or 2,000 mg IVPB x 2 doses Le ss than 1.0 mg/dL CALL PHYSICIAN and give &nb sp; &nbs p; &nbsp ; & nbsp; 4,000 mg Total Dose &nb sp; &nbs p; &nbsp ; & nbsp; Given as 1,000 mg IVPB x 4 doses or 2,000 mg IVPB x 2 doses &n bsp;Infuse at 1,000 mg/hr Repeat Mag level 1 hour after final administration&nbsp ;Protocol not for use in Patients with CrCl less than 30ml/min omega-3 acid ethyl esters (fdc) 1000 mg oral capsule (1 source) omega-3 acid eth yl esters (LOVAZA) 1 gram capsule Take 2 (two) capsules (2 g total) by mouth 2 (two) times a day . 0 Active 2 ml ondansetron 2 mg/ml injection (1 source) Serotonin-3 Receptor Antagonist Start: 07-31-2023 ondansetron (ZOFRAN) injection 4 mg ondansetron (ZOFRAN-ODT) disintegrating tablet 4 mg (1 source) Start: 07-17-2023 ondansetron (ZOFRAN-ODT) disintegrating tablet 4 mg oxyCODONE (1 source) Opioid Agonist Start: 07-17-2023 oxyCODONE (ROXICODONE) immediate release tablet 5 mg piperacillin-tazobac kelly (ZOSYN) 3,375 mg in sodium chloride 0.9 % 50 mL IVPB ([id number]) (1 source) Start: 07-31-2023 piperacillin-tazoba ctam (ZOSYN) 3,375 mg in sodium chloride 0.9 % 50 mL IVPB ([id number]) Potassium Chloride (1 source) Start: 07-31-2023 potassium chloride (KLOR-CON M) extended release tablet 40 mEq terbinafine hydrochloride 10 mg/ml topical cream (1 source) Allylamine Antifungal Start: 03-30-2023 Lamisil AT 1% Cream 1 ashwini, Topical, BID, 12 gram, Refill(s) 0, [facility] #[id number], 155, cm, 03/30/23 10:41:00 EST, Height/Length Dosing, 87.6, kg, 03/30/23 10:41:00 EST, Weight Dosing Start Date: 03/30/23 Status: Ordered vitamin b12 1 mg oral tablet (7 sources) Vitamin B12 take 1 tablet by mouth once daily vitamin B-12 (CYANOCOBALAMIN) 1000 MCG tablet Take 1 tablet by mouth daily 0 Active End: 07-17-2023 take 1 tablet by mouth once daily in the morning Cyanocobalamin 1000 MCG/ML LIQD Take 1 tablet by mouth every morning 0 07/17/2023 Discontinued (LIST CLEANUP) vitamin e 22.6 mg/ml oral solution (3 sources) take 2 capsules by m outh once daily vitamin E, dl, acetate, 22.5 mg (50 unit)/mL Drop Take 2 capsules by mouth daily . 0 Active Completed/Discontinued Medications Medication Drug Class(es) Dates Sig (Normalized) Sig (Original) calcium chloride 0.0014 meq/ml / potassium chloride 0.004 meq/ml / sodium chloride 0.103 meq/ml / sodium lactate 0.028 meq/ml injectable solution (1 source) Start: 07-17-2023 End: 07-17-2023 lactated ringers IV soln infusion ceFAZolin 2000 mg injection (1 source) Cephalosporin Antibacterial Start: 07-17-2023 End: 07-17-2023 ceFAZolin (ANCEF) 2000 mg in 0.9% sodium chloride 100 mL IVPB 500 ml glucose 50 mg/ml / potassium chloride 0.02 meq/ml / sodium chloride 4.5 mg/ml injection (1 source) Start: 07-17-2023 End: 07-18-2023 IntraVENous, at 100 mL/hr, CONTINUOUS, Starting on Sun07/17/23 at 1315, Post-op iopamidol (ISOVUE-370) 76 % injection 75 mL (1 source) Start: 07-31-2023 End: 07-31-2023 iopamidol (ISOVUE-370) 76 % injection 75 mL polyethylene glycol [id number] mg powder for oral solution (1 source) Osmotic Laxative Start: 07-31-2023 17 g, Oral, DAILY PRN, Starting on Sun07/31/23 at 1826, Until Discontinued, Constipation First line therapy for constipation 5 ml sodium chloride 9 mg/ml injection (4 sources) Start: 07-31-2023 take 1 dose intravenously twice daily 5-40 mL, IntraVENous, EVERY 12 HOURS SCHEDULED (2 times per day), First dose on Sun07/31/23 at 2100, Until Discontinued For Line Patency: Peripheral IV = 5 mL; Midline or Central Line = 10 mL/lumen.&nbsp ; If following IV push medication, administer flush at same rate as the IV push. Flush volume is determined by type of infusion therapy being given. For non-viscous solutions use: Peripher al IV = 5 mL Midline or Central Line = 10 mL/lumen &nbs p;For viscous solutions (i.e. blood components, parenteral nutrition, contrast media, or after obtaining blood sample) use: Peripher al IV = 10 mL Midline or Central Line = 20 mL/lumen Start: 07-31-2023 End: 08-03-2023 IntraVENous, at 75 mL/hr, CONTINUOUS, Starting on Sun07/31/23 at 1845 Start: 07-31-2023 IntraVENous, a t 5-250 mL/hr, PRN, if patient receiving piggyback infusions and maintenance fluids are not ordered OR KVO fluids to protect IV site / prevent frequent line interruptions/ long duration, Starting on Sun07/31/23 at 1826 For piggyback infusion, administer at same rate as piggyback for a total of 25 mL. Enter 25 mL into dose field and piggyback rate into rate field of order. If piggyback is infusing at a rate less than 100 mL/hr, enter 25 mL into dose field and 100 mL/hr into rate field of order. For KVO fluids, enter rate of 20 mL/hr or less into rate field of order. Start: 07-31-2023 take 10 mL intraveno usly once as needed 10 mL, IntraVENous, PRN, Starting on Sun07/31/23 at 1826, Until Discontinued, Line Care, After every IV line use Problems Active Problems Problem Classification Problem Date Documented Date Episodic/Chronic Abdominal hernia (8 sources) Irreducible hernia of anterior abdominal wall; Translations: [Other and unspecified ventral hernia with obstruction, without gangrene] Onset: 07-17-19 Resolved : 07-25-1907-18-2023 Episodic Complications of surgical procedures or medical care (12 sources) Wound dehiscence; Translations: [Disruption of wound, unspecified, initial encounter] Onset: 07-16-19 Resolved : 07-25-1907-18-2023 Episodic Disorders of lipid metabolism (1 source) Hypercholesterolemia 04-10-2024 Chronic Essential hypertension (6 sources) Hypertensive disorder; Translations: [Essential (primary) hypertension] Onset: 07-17-19 24 02-05-2023 Chronic Nonspecific chest pain (2 sources) Chest pain, unspecified; Translations: [Chest pain, unspecified] Onset: 11-09-19 Episodic Nutritional deficiencies (4 sources) Undernutrition; Translations: [Mild protein-calorie malnutrition] Onset: 07-18-1907-18-2023 Chronic Other aftercare (2 sources) Encounter for change or removal of nonsurgical wound dressing; Translations: [Encounter for change or removal of nonsurgical wound dressing] Onset: 08-04-19 Episodic Other and unspecified benign neoplasm (1 source) Lipoma of back 06-27-2023 Episodic Other connective tissue disease (2 sources) History of right total knee replacement; Translations: [Presence of right artificial knee joint] Chronic Other connective tissue disease (1 source) Ganglion cyst of right dorsal wrist 09-03-2023 Episodic Other gastrointestinal disorders (1 source) Diarrhea, unspecified; Translations: [Diarrhea, unspecified] Onset: 08-27-19 Episodic Other injuries and conditions due to external causes (1 source) Spider bite wound 01-03-2023 Episodic Other nervous system disorders (1 source) Postoperative pain ; Translations: [Other acute postprocedural pain] 07-18-2023 Episodic Other nervous system disorders (1 source) Other acute postprocedural pain; Translations: [Other acute postprocedural pain] Onset: 07-17-19 Episodic Other nutritional; endocrine; and metabolic disorders (2 sources) Body mass index 30+ - obesity 02-05-2023 Chronic Other skin disorders (1 source) Changes in skin texture 10-01-2023 Episodic Residual codes; unclassified (2 sources) Pain, unspecified; Translations: [Pain, unspecified] Onset: 04-18-19 Episodic Residual codes; unclassified (2 sources) Pain Onset: 04-18-19 Episodic Residual codes; unclassified (2 sources) Other specified health status; Translations: [Other specified conditions influencing health status] Onset: 07-31-1907-31-2023 Episodic Skin and subcutaneous tissue infections (2 sources) Abscess of umbilicus; Translations: [Cutaneous abscess of umbilicus] Onset: 07-31-19 24 08-03-2023 Episodic Unclassified (2 sources) Dressing Change; Translations: [Dressing Change] Onset: 08-04-19 Viral infection (1 source) Hand wart 10-01-2023 Episodic Past or Other Problems Problem Classification Problem Date Documented Date Episodic/Chronic Abdominal pain (4 sources) Epigastric pain; Translations: [Epigastric pain] Onset: 06-20-2023 Resolved: 07-16-2023 07-16-2023 Episodic Biliary tract disease (8 sources) Other cholelithiasis without obstruction; Translations: [Calculus of gallbladder with acute cholecystitis without obstruction] Onset: 06-20-2023 Resolved: 07-16-2023 07-16-2023 Episodic Results Test Name Value Interpretation Reference Range Facil ity Ambulatory Visit Summaryon 0 04-10-2024 Ambulatory Visit Summary Ambulatory Visit Summary MICHEAL BRICE :1940 Visit Date:04/10/2024 Ambulatory Visit Instructions Your Diagnosis Encounter for subsequent annual wellness visit (AWV) in Medicare patient Hypertension Hypercholesteremia Family history of diabetes mellitus (DM) Ovarian failure due to menopause Immunization declined Obesity due to excess calories Tests Performed BD Bone Density DEXA -- Results Pending -- Please visit your patient portal for your results or contact your primary care physician. Your Care Team Attending Physician - KIA SAMUEL CNP Primary Care Physician - Camila Max This Is Your Medications List amlodipine (amLODIPine 5 mg Tab) lactobacillus acidophilus (Acidophilus Probiotic Blend) Procedures Performed Cholecystectomy (2023), Ankle, Bowel, Cataract, Finger, Knee replacement, Stomach. Discharge Vitals Heart Rate (Peripheral) 68 Respiratory Rate 18 Blood Pressure 138/84 Height 158 cm Height 62 in Weight 88.9 kg Weight 195.991 lb BMI 35.61 What to do next Scheduled Follow-Up Appointments Sunday2025 9:30 AM EST With: Where: [facility] [address] [address]- Sunday2025 10:20 AM EST With: Camila Max Where: [id number] [place] [address]- Medications What How Much When Instructions Unchanged amlodipine (amLODIPine 5 mg Tab) 1 Tablets By Mouth Every day Duration: 90 Days Unchanged lactobacillus acidophilus (Acidophilus Probiotic Blend) 1 Capsules By Mouth 2 times a day Medications and Immunizations Administered Not Given influenza virus vaccine, inactivated, Parent Or Guardian Refuses Allergies No Known Allergies Problems Ongoing - Any problem that you are currently receiving treatment for. BMI 35.0-35.9,adult Ganglion cyst of dorsum of right wrist Hypercholesteremia Hypertension Lipoma of back S/P cholecystectomy Skin texture changes Wart of hand Patient Survey You may receive a survey via text or e-mail asking about your office visit. Please share your experience with us by completing your survey. We appreciate your feedback and thank you for choosing us for your care. Education Materials Preventing Type 2 Diabetes Mellitus Type 2 diabetes, also called type 2 diabetes mellitus, is a long-term (chronic) disease that affects sugar (glucose) levels in your blood. Normally, a hormone called insulin allows glucose to enter cells in your body. The cells use glucose for energy. With type 2 diabetes, you will have one or both of these problems: ??? Your pancreas does not make enough insulin. ??? Cells in your body do not respond properly to insulin that your body makes (insulin resistance). Insulin resistance or lack of insulin causes extra glucose to build up in the blood instead of going into cells. As a result, high blood glucose (hyperglycemia) develops. That can cause many complications. Being overweight or obese and having an inactive (sedentary) lifestyle can increase your risk for diabetes. Type 2 diabetes can be delayed or prevented by making certain nutrition and lifestyle changes. How can this condition affect me? If you do not take steps to prevent diabetes, your blood glucose levels may keep increasing over time. Too much glucose in your blood for a long time can damage your blood vessels, heart, kidneys, nerves, and eyes. Type 2 diabetes can lead to chronic health problems and complications, such as: ??? Heart disease. ??? Stroke. ??? Blindness. ??? Kidney disease. ??? Depression. ??? Poor circulation in your feet and legs. In severe cases, a foot or leg may need to be surgically removed (amputated). What can increase my risk? You may be more likely to develop type 2 diabetes if you: ??? Have type 2 diabetes in your family. ??? Are overweight or obese. ??? Have a sedentary lifestyle. ??? Have insulin resistance or a history of prediabetes. ??? Have a history of -related (gestational) diabetes or polycystic ovary syndrome (PCOS). What actions can I take to prevent this? It can be difficult to recognize signs of type 2 diabetes. Taking action to prevent the disease before you develop symptoms is the best way to avoid possible damage to your body. Making certain nutrition and lifestyle changes may prevent or delay the disease and related health problems. Nutrition ??? Eat healthy meals and snacks regularly. Do not skip meals. Fruit or a handful of nuts is a healthy snack between meals. ??? Drink water throughout the day. Avoid drinks that contain added sugar, such as soda or sweetened tea. Drink enough fluid to keep your urine pale yellow. ??? Follow instructions from your health care provider about eating or d (more content not included)... Normal [facility] CHEMISTRYOrdered By: SYSTEM SYSTEM on 04-10-2024 Albumin [Mass/Vol] 4.2 g/dL Normal 3.3 - 5.0 gm/dL R emisol Chem Albumin/Globulin [Mass ratio] 2.0 {ratio} Normal 1.1 - 2.2 Remisol Chem ALP [Catalytic activity/Vol] 86 [iU]/d Normal 21 - 98 Int._Unit/L Remisol Chem ALT No additional P-5'-P [Catalytic activity/Vol] 15 [iU]/d Normal 6 - 46 Int._Unit/L Remisol Chem Anion gap [Moles/Vol] 10 mmol/L Normal 6 - 16 mEq/L Remisol [facility] AST [Catalytic activity/Vol] 18 [iU]/d Normal 5 - 43 Int._Unit/L Remisol Chem Bilirubin [Mass/Vol] 0.6 mg/dL Normal 0.0 - 1.1 mg/dL Rem[facility] Calcium [Mass/Vol] 9.6 mg/dL Normal 8.9 - 11. 1 mg/dL Rem[facility] Chloride [Moles/Vol] 104 mmol/L Normal 101 - 111 mmol/L Rem[facility] Cholesterol [Mass/Vol] 221 mg/dL High 120 - 200 mg/dL Remisol Chem Cholesterol in HDL [Mass/Vol] 56 mg/dL Invalid Interpretation Code Remisol Chem Comment on above: Result Comment: '>= 60 LOW RISK' '<= 40 HIGH RISK' Cholesterol in LDL [Mass/Vol] 159 mg/dL High <=129mg/dL Remisol Chem Cholesterol in VLDL [Mass/Vol] 14 mg/dL Normal 7 - 40 mg/dL Remisol Chem CO2 [Moles/Vol] 28 mmol/L Normal 21 - 31 mmol/L Remis ol Chem Creatinine [Mass/Vol] 0.7 mg/dL Normal 0.5 - 1.3 mg/dL Rem[facility] Chem eGFR 86 mL/min/1.73 m2 Normal >=59mL/min /1.73 m2 Rem[facility] Chem Globulin (S) [Mass/Vol] 2.1 g/dL Normal 1.4 - 4.0 gm/dL Remisol Chem Glucose [Mass/Vol] 95 mg/dL Normal 55 - 199 mg/dL Re misol Chem Potassium [Moles/Vol] 4.4 mmol/L Normal 3.5 - 5.3 mmol/L Remisol Chem Protein [Mass/Vol] 6.3 g/dL Normal 6.0 - 7.8 gm/dL R emisol Chem Sodium [Moles/Vol] 138 mmol/L Normal 135 - 145 mmol/L Remisol Chem Triglyceride [Mass/Vol] 69 mg/dL Normal <=149mg/dL Remisol Chem TSH Qn 0.50 m[IU]/L Normal 0.34 - 5.60 mcIU/mL Rem[facility] Urea nitrogen [Mass/Vol] 20 mg/dL Normal 5 - 21 mg/dL Remisol Chem Urea nitrogen/Creatinine [Mass ratio] 29 mg/mg High 10 - 20 Remisol Chem CMPon 04-10-2024 Albumin [Mass/Vol] 4.2 g/dL Normal 3.3-5.0 [facility] Comment on above: Performed By: #### 2 [id number] #### [facility] [address] [place] [address] Albumin/Globulin (S) [Mass conc ratio] 2.0 Normal 1.1-2.2 [facility] Comment on above: Performed By: #### 2 [id number] #### [facility] [address] [place] [address] ALP [Catalytic activity/Vol] 86 Int._Unit/L Normal 21-98 [facility] Comment on above: Performed By: #### 2 [id number] #### [facility] [address] [place] [address] ALT No additional P-5'-P [Catalytic activity/Vol] 15 Int._Unit/L Normal 6-46 [facility] Comment on above: Performed By: #### 2 [id number] #### [facility] [address] [place] [address] Anion gap [Moles/Vol] 10 mmol/L Normal 6-16 [facility] Comment on above: Performed By: #### 2 [id number] #### [facility] [address] [place] [address] AST [Catalytic activity/Vol] 18 Int._Unit/L Normal 5-43 [facility] Comment on above: Performed By: #### 2 [id number] #### [facility] [address] [place] [address] Bilirubin [Mass/Vol] 0.6 mg/dL Normal 0.0-1.1 [facility] Comment on above: Performed By: #### 2 [id number] #### [facility] [address] [place] [address] Calcium [Mass/Vol] 9.6 mg/dL Normal 8.9-11.1 [facility] Comment on above: Performed By: #### 2 [id number] #### [facility] [address] [place] [address] Chloride [Moles/Vol] 104 mmol/L Normal 101-111 [facility] Comment on above: Performed By: #### 2 [id number] #### [facility] [address] [place] [address] CO2 [Moles/Vol] 28 mmol/L Normal 21-31 [facility] Comment on above: Performed By: #### 2 [id number] #### [facility] [address] [place] [address] Creatinine [Mass/Vol] 0.7 mg/dL Normal 0.5-1.3 [facility] Comment on above: Performed By: #### 2 [id number] #### [facility] [address] [place] [address] Globulin (S) [Mass/Vol] 2.1 g/dL Normal 1.4-4.0 [facility] Comment on above: Performed By: #### 2 [id number] #### [facility] [address] [place] [address] Glucose [Mass/Vol] 95 mg/dL Normal 55-199 [facility] Comment on above: Performed By: #### 2 [id number] #### [facility] [address] [place] [address] Potassium [Moles/Vol] 4.4 mmol/L Normal 3.5-5.3 [facility] Comment on above: Performed By: #### 2 [id number] #### [facility] [address] [place] [address] Protein [Mass/Vol] 6.3 g/dL Normal 6.0-7.8 [facility] Comment on above: Performed By: #### 2 [id number] #### [facility] [address] [place] [address] Sodium [Moles/Vol] 138 mmol/L Normal 135-145 [facility] Comment on above: Performed By: #### 2 [id number] #### [facility] [address] [place] [address] Urea nitrogen [Mass/Vol] 20 mg/dL Normal 5-21 [facility] Comment on above: Performed By: #### 2 [id number] #### [facility] [address] [place] [address] Urea nitrogen/Creatinine [Mass ratio] 29 No Units High 10-20 [facility] Comment on above: Performed By: #### 2 [id number] #### [facility] [address] [place] [address] Family Medicine Office/Clini c Noteon 04-10-2024 Family Medicine Office/Clinic Note Family Medicine Office/Clinic Note Chief Complaint Subsequent Medicare Wellness Review of Systems PHQ Score Initial Depression Screen Score: 0 SCORE Physical Exam Vitals & Measurements HR: 68(Peripheral) RR: 18 BP: 138/84 SpO2: 98% HT: 158 cm HT: 62 in WT: 88.9 kg WT: 195.991 lb BMI: 35.61 Assessment/Plan 1. Encounter for subsequent annual wellness visit (AWV) in Medicare patient (Z00.00: Encounter for general adult medical examination without abnormal findings) The patient was given a customized and personalized print out of all the current AHRQ USPSTF???s recommendations for preventative services and all current CDC recommended immunizations, relevant risk recommendations and the following patient brochures were given. Reviewed Medicare Prevention Services checklist. CDC-Falls Prevention and home safety screening reviewed. Patient denies any falls in last 12 months, voices no worry about falling. Exhibits no problems with sitting, standing or ambulation. Patient aware with keeping walk way area free of clutter to prevent tripping and/or falling. [place] Advance Directives reviewed. Documents remain at home office, encouraged to bring in for scanning into chart. Patient denies any problems with ADL???s and Instrumental ADL???s. Cognitive screening completed with memory and clock face drawing. No deficits noted. Immunization record reviewed, discussed Shingrix vaccine with educational handout and availability. No COVID vaccines have been administered. Allergies and medications reviewed and up to date. No concerns with taking medication as prescribed. Reviewed OTC medications, medication list up to date. Blood tests were reviewed: Discussed what tests need to be updated. Labs were ordered by pcp and drawn today in office. No concerns with bowel/ bladder. Patient does no longer performs colonoscopy screeenings due to age. Reviewed pain symptoms: abdomen. Patient denies pain today. Reviewed all outside providers that patient follows. Last visit summary notes available in chart and/or have been requested. Patient declines any signs or symptoms of depression at this time. 8 minutes spent with screening and documentation. PHQ2 screening score 0. Patient denies alcohol use. 8 minutes spent with screening and documentation. Audit score 0. Follow up scheduled with PCP, 04/13/2025 AWV has been scheduled, 04/13/2025 Medicare provides yearly screening for alcohol and depression concerns. This is completed during our Medicare wellness visit for those who do not have [...] AUDIT risk assessment screening completed, risk score 0 with patient denying concerns with use. Completed [...] with screening yearly during Medicare wellness visits. 2. Hypertension (I10: Essential (primary) hypertension) Patient is taking amlodipine daily as directed. Does monitor BP pressure at home. HTN stoplight reviewed with BP goal to [...] PCP during office visits and as needed. 3. Hypercholesteremia (E78.00: Pure hypercholesterolemia, unspecified) Reviewed healthy lifestyle with low fat diet and exercise regimen. When you are overweight our body produces more lipids. Risk also increases with family history of hyperlipidemia and with monitoring alcohol use and avoid smoking. Pt voices understanding with importance of monitoring dietary intake to reduce risk factors associated with CVA. Patient not currently on statin. Will continue to follow up with office visits with updated labs as directed. 4. Family history of diabetes mellitus (DM) (Z83.3: Family history of diabetes mellitus) Patient screened for diabetes with risk score of 7, discussed / denies family history with increased risk for diabetes. DM s (more content not included)... Normal [facility] Comment on above: Result Comment: Elec tronically Signed By: Camila Max\.br\Date and Time Signed: 04/10/24 12:37 EST\.br\Electronically Co-Signed By: Shabnam Barrientos\.br\Date and Time Co-Signed: 04/10/24 12:05 EST Family Medicine Office/Clinic Note Family Medicine Office/Clinic Note [facility] Staff Christel is an 84 year old female presenting to discuss abdominal discomfort Pt states sometimes she feels like a needle is where her incision which in intermittent. She feels her stomach isn't happy she denies being nauseated but doesn't have an appetite. pain sometimes a 3 unable to wear any clothing over area or bending over will have discomfort. History of Present Illness pt presents today c/o abdominal pain Review of Systems PHQ Score Initial Depression Screen Score: 0 SCORE Physical Exam Vitals & Measurements T: 36.4 ???C(Tympanic) HR: 68(Peripheral) RR: 18 BP: 138/84 SpO2: 98% HT: 62 in HT: 158.0 cm WT: 88.9 kg WT: 195.991 lb BMI: 35.61 General: alert, no acute distress ENMT: oral mucosa moist, no pharyngeal erythema or exudate Cardiovascular: regular rate and rhythm, normal peripheral perfusion Respiratory: Lungs CTA, respirations non labored Extremities: no deformity, no trauma Neurological: oriented x 4, LOC appropriate for age, CN II-XII intact, motor strength equal & normal bilaterally, speech normal Assessment/Plan 1. Hypertension (I10: Essential (primary) hypertension) BP at goal. does not need refills at this time. Ordered: Comprehensive Metabolic Panel E&M of Est. Patient Low 20-29 Min 61142 Lipid Panel Thyroid Stimulating Hormone 2. S/P cholecystectomy (Z90.49: Acquired absence of other specified parts of digestive tract) pt is concerned about her incision. She had her gallbladder removed then that incision became infected. they had to open her back up, clean out abscess. she now has a large scar and has keloids. educated her that this is a normal healing process. she is also c.o feeling full after just a couple of bites. discussed acid reflux. pt will get prilosec OTC and take it for 3 weeks to see if that improves symptoms. Ordered: Comprehensive Metabolic Panel E&M of Est. Patient Low 20-29 Min 25332 Lipid Panel Thyroid Stimulating Hormone 3. Hypercholesteremia (E78.00: Pure hypercholesterolemia, unspecified) lipid panel drawn in office today Ordered: Comprehensive Metabolic Panel E&M of Est. Patient Low 20-29 Min 06542 Lipid Panel Thyroid Stimulating Hormone 4. BMI 35.0-35.9,adult (Z68.35: Body mass index [BMI] 35.0-35.9, adult) BMI education given Ordered: Comprehensive Metabolic Panel E&M of Est. Patient Low 20-29 Min 87028 Lipid Panel Thyroid Stimulating Hormone 5. Non-smoker (Z78.9: Other specified health status) continue not smoking Ordered: Comprehensive Metabolic Panel E&M of Est. Patient Low 20-29 Min 82037 Lipid Panel Thyroid Stimulating Hormone Follow-up No qualifying data available Problem List/Past Medical History Ongoing BMI 36.0-36.9,adult Ganglion cyst of dorsum of right wrist Hypercholesteremia Hypertension Lipoma of back S/P cholecystectomy Skin texture changes Wart of hand Historical No qualifying data Procedure/Surgical History Cholecystectomy (2023), Ankle, Bowel, Cataract, Finger, Knee replacement, Stomach. Medications Acidophilus Probiotic Blend, 1 cap(s), Oral, BID amLODIPine 5 mg Tab, 5 mg= 1 tab(s), Oral, Daily, 3 refills Allergies No Known Allergies Social History Alcohol - Denies Alcohol Use, 04/04/2023 Past. Beer. Daily., 04/10/2024 Substance Abuse Never., 04/10/2024 Tobacco - Denies Tobacco Use, 04/04/2023 Never (less than 100 in lifetime) Tobacco Use:., 04/10/2024 Family History CABG - Coronary artery bypass graft: Negative: Mother, Father, Sister and Brother. Diabetes mellitus type 2: Sister. Open heart surgery: Mother. Immunizations Vaccine Date Status diphtheria/pertussis, acel/tetanus adult 08/07/2013 Recorded tetanus-diphtheria toxoids 03/19/2004 Recorded Normal [facility] Comment on above: Result Comment: Elec tronically Signed By: Camila Max\.br\Date and Time Signed: 04/10/24 10:38 EST Lipid Panelon 04-10-2024 Cholesterol [Mass/Vol] 221 mg/dL High 120-200 [facility] Comment on above: Performed By: #### 2 [id number] #### [facility] [address] [place] [address] Cholesterol in HDL [Mass/Vol] 56 mg/dL Invalid Interpretation Code [facility] Comment on above: Result Comment: '>= 60 LOW RISK' '<= 40 HIGH RISK' Performed By: #### 2 [id number] #### [facility] [address] [place] [address] Cholesterol in LDL [Mass/Vol] 159 mg/dL High <=129 [facility] Comment on above: Performed By: #### 2 [id number] #### [facility] [address] [place] [address] Cholesterol in VLDL [Mass/Vol] 14 mg/dL Normal 7-40 [facility] Comment on above: Performed By: #### 2 [id number] #### [facility] [address] [place] [address] Triglyceride [Mass/Vol] 69 mg/dL Normal <=149 [facility] Comment on above: Performed By: #### 2 [id number] #### [facility] [address] [place] [address] TSHon 04-10-2024 TSH Qn 0.50 m[IU]/L Normal 0.34-5.60 [facility] Comment on above: Performed By: #### 2 [id number] #### [facility] [address] [place] [address] eGFRon 04-10-2024 eGFR 86 mL/min/1.73 m2 Normal >=59 [facility] Comment on above: Performed By: #### 1 [id number] #### [facility] [address] [place] [address] Family Medicine Office/Clini c Noteon 10-03-2023 Family Medicine Office/Clinic Note Family Medicine Office/Clinic Note Chief Complaint 136 HPI Staff Christel is a 83 year old female presenting with a pimple on her nose that is not going away She said she has had this about 1 year.left side She popped it, she states it is really small now fills back up in about 1-2 weeks No ice or heat never used she has used rhona tree oil. She states that this never helped so she stopped using this a while ago History of Present Illness pt presents today for skin changes on her nose Review of Systems PHQ Score Initial Depression Screen Score: 0 SCORE Physical Exam Vitals & Measurements T: 36.9 ?C(Temporal Artery) HR: 86(Peripheral) RR: 18 BP: 136/88 SpO2: 95% HT: 62 in HT: 158.0 cm WT: 83.95 kg WT: 184.69 lb BMI: 33.63 General: alert, no acute distress ENMT: oral mucosa moist, no pharyngeal erythema or exudate Cardiovascular: regular rate and rhythm, normal peripheral perfusion Respiratory: Lungs CTA, respirations non labored Extremities: no deformity, no trauma Neurological: oriented x 4, LOC appropriate for age, CN II-XII intact, motor strength equal & normal bilaterally, speech normal Assessment/Plan 1. Wart of hand (B07.9: Viral wart, unspecified) cryotherapy of pointer finger. pt tolerated well. will repeat if it does not go away completely. 2. Skin texture changes (R23.4: Changes in skin texture) Red raised flaky suspicious lesion on left side of nose. will send referral [facility]. all questions answered. RTC as needed 3. BMI 34.0-34.9,adult (Z68.34: Body mass index [BMI] 34.0-34.9, adult) BMI education given 4. Non-smoker (Z78.9: Other specified health status) continue not smoking Follow-up No qualifying data available Problem List/Past Medical History Ongoing BMI 36.0-36.9,adult Cerumen impaction Deep incisional surgical site infection Ganglion cyst of dorsum of right wrist Hypertension Lipoma of back Rash S/P cholecystectomy S/P umbilical hernia repair, follow-up exam Skin texture changes Spider bite Surgical wound infection Wart of hand Historical No qualifying data Procedure/Surgical History Cholecystectomy (2023), Ankle, Bowel, Cataract, Finger, Knee replacement, Stomach. Medications Acidophilus Probiotic Blend, 1 cap(s), Oral, BID amLODIPine 5 mg Tab, 5 mg= 1 tab(s), Oral, Daily, 3 refills Allergies No Known Allergies Social History Alcohol - Denies Alcohol Use, 04/04/2023 Tobacco - Denies Tobacco Use, 04/04/2023 Never (less than 100 in lifetime) Tobacco Use:. Never Smokeless Tobacco Use:. Cigarettes, Household tobacco concerns: No., 10/01/2023 Family History CABG - Coronary artery bypass graft: Negative: Mother, Father, Sister and Brother. Diabetes mellitus type 2: Sister. Open heart surgery: Mother. Immunizations Vaccine Date Status diphtheria/pertussis, acel/tetanus adult 08/07/2013 Recorded tetanus-diphtheria toxoids 03/19/2004 Recorded Normal [facility] Comment on above: Result Comment: Elec tronically Signed By: Camila Max\.br\Date and Time Signed: 10/03/23 14:14 EDT Ambulatory Visit Summaryon 0 10-01-2023 Ambulatory Visit Summary Ambulatory Visit Summary MICHEAL BRICE :1940 Visit Date:10/01/2023 Ambulatory Visit Instructions Your Diagnosis Non-smoker BMI 34.0-34.9,adult Skin texture changes Your Care Team Attending Physician - Camila Max Primary Care Physician - Camila Max This Is Your Medications List amlodipine (amLODIPine 5 mg Tab) lactobacillus acidophilus (Acidophilus Probiotic Blend) Procedures Performed Cholecystectomy (2023), Ankle, Bowel, Cataract, Finger, Knee replacement, Stomach. Discharge Vitals Temperature (Temporal Artery) 36.9 ?C Heart Rate (Peripheral) 86 Respiratory Rate 18 Blood Pressure 136/88 Height 158.0 cm Height 62 in Weight 83.95 kg Weight 184.69 lb BMI 33.63 What to do next Scheduled Follow-Up Appointments Sunday 1:00 PM EST Where: [facility] Family Medicine [facility] Population Health 09-04-19 Population Health Case Information Case Priority: None Programs: -- Referral Source: [employer] Sales Representative Referral Reason: Care coordination Case Type: Transition Care Management Risk Score: -- Case Status: Enrolled (August 06, 2023) Date Assigned: August 06, 2023 Assigned By: Steve Nair Date Enrolled: August 06, 2023 Assigned Primary Personnel: Steve Nair Assigned Secondary Personnel: -- Case Physician: Camila Max Problems Ongoing BMI 36.0-36.9,adult Cerumen impaction Deep incisional surgical site infection Ganglion cyst of dorsum of right wrist Hypertension Lipoma of back Rash S/P cholecystectomy S/P umbilical hernia repair, follow-up exam Spider bite Surgical wound infection Historical No qualifying data Procedure/Surgical History Cholecystectomy (2023), Ankle, Bowel, Cataract, Finger, Knee replacement, Stomach. Home Medications Acidophilus Probiotic Blend, 1 cap(s), Oral, BID amLODIPine 5 mg Tab, 5 mg= 1 tab(s), Oral, Daily, 3 refills Lamisil AT 1% Cream, 1 ashwini, Topical, BID triamcinolone Top 0.1% Crm 15 gram, 1 ashwini, Topical, TID Allergies No Known Allergies Social History Alcohol - Denies Alcohol Use, 04/04/2023 Tobacco - Denies Tobacco Use, 04/04/2023 Never (less than 100 in lifetime) Tobacco Use:. Never Smokeless Tobacco Use:. Household tobacco concerns: No., 09/03/2023 Family History CABG - Coronary artery bypass graft: Negative: Mother, Father, Sister and Brother. Diabetes mellitus type 2: Sister. Open heart surgery: Mother. Screenings and Assessments 08/06/23 10:20:00 Result Name Value Comment Phone Call Monitoring Consent Agreed to continue call Phone Verification Patient Information Full name, street address and date of verified CM Program Enrollment Provides verbal consent for enrollment Goals and Interventions Care Plan Progress Note TCM#5- Spoke with patient for final TCM call. Patient stated 'everything is going fine.' Patient adds she is 'doing well' and no further issues or concerns. States she has to go due to a 'situation.' CN advised patient to call if further needs, she verbalized understanding. Communication Events Date: September 04, 2023 Method: Phone call Type: Outbound Duration (min): 1 Outcome: Case discussion Contact Type: recovery coordinator Contact Name: Steve Nair Notes: TCM#5- see tcm note. Created By: Steve Nair Date: August 28, 2023 Method: Phone call Type: Outbound Duration (min): 1 Outcome: No answer Contact Type: recovery coordinator Contact Name: Steve Nair Notes: TCM#4- no answer, no vm. Created By: Steve Nair Date: August 21, 2023 Method: Phone call Type: Outbound Duration (min): 10 Outcome: Case discussion Contact Type: recovery coordinator Contact Name: Steve Nair Notes: TCM#3-see tcm note. Created By: Steve Nair Date: August 14, 2023 Method: Phone call Type: Outbound Duration (min): 10 Outcome: Case discussion Contact Type: recovery coordinator Contact Name: Steve Nair Notes: TCM#2- See tcm note. Created By: Steve Nair Date: August 07, 2023 Method: Phone call Type: Outbound Duration (min): -- Outcome: No answer Contact Type: recovery coordinator Contact Name: Steve Nair Notes: TCM#1- follow up call- no ansswer, no vm. Created By: Steve Nair Date: August 06, 2023 Method: Phone call Type: Outbound Duration (min): 7 Outcome: Case discussion Contact Type: recovery coordinator Contact Name: Steve Nair Notes: TCM#1- see tcm note. Created By: Steve Nair Date: August 06, 2023 Method: Phone call Type: Outbound Duration (min): -- Outcome: No answer Contact Type: recovery coordinator Contact Name: Steve Nair Notes: TCM#1- attemtped to reach patient, no answer, no vm. CN will try again later. Created By: Steve Nair [facility] Family Medicine Office/Clini c Noteon 09-03-2023 Family Medicine Office/Clinic Note HPI Staff Micheal is an 83 year old female presenting for 1 week follow up JHOAN 08/27/23 pt to take keflex she has at home spider bite Left leg behind the knee Pt leg looks a lot better, no redness, area is scabbed over no draining History of Present Illness pt presents today for follow up on spider bite Review of Systems PHQ Score Initial Depression Screen Score: 0 SCORE Physical Exam Vitals & Measurements HR: 78(Peripheral) RR: 18 BP: 122/80 HT: 62 in HT: 158.0 cm WT: 86.30 kg WT: 189.86 lb BMI: 34.57 General: alert, no acute distress ENMT: oral mucosa moist, no pharyngeal erythema or exudate Cardiovascular: regular rate and rhythm, normal peripheral perfusion Respiratory: Lungs CTA, respirations non labored Extremities: no deformity, no trauma Neurological: oriented x 4, LOC appropriate for age, CN II-XII intact, motor strength equal & normal bilaterally, speech normal area is no longer red or warm to touch Assessment/Plan 1. Spider bite (S70.369A: Insect bite (nonvenomous), unspecified thigh, initial encounter) area is healing very nicely. no redness, warmth or oozing noted today. pt to continue antibiotics. RTC as needed 2. Ganglion cyst of dorsum of right wrist (M67.431: Ganglion, right wrist) pt noticed a cyst on right wrist. is not interested in seeing a surgeon at this time 3. BMI 34.0-34.9,adult (Z68.34: Body mass index [BMI] 34.0-34.9, adult) BMI education given 4. Non-smoker (Z78.9: Other specified health status) continue not smoking Follow-up No qualifying data available Problem List/Past Medical History Ongoing BMI 36.0-36.9,adult Cerumen impaction Deep incisional surgical site infection Ganglion cyst of dorsum of right wrist Hypertension Lipoma of back Rash S/P cholecystectomy S/P umbilical hernia repair, follow-up exam Spider bite Surgical wound infection Historical No qualifying data Procedure/Surgical History Cholecystectomy (2023), Ankle, Bowel, Cataract, Finger, Knee replacement, Stomach. Medications Acidophilus Probiotic Blend, 1 cap(s), Oral, BID amLODIPine 5 mg Tab, 5 mg= 1 tab(s), Oral, Daily, 3 refills Lamisil AT 1% Cream, 1 ashwini, Topical, BID triamcinolone Top 0.1% Crm 15 gram, 1 ashwini, Topical, TID Allergies No Known Allergies Social History Alcohol - Denies Alcohol Use, 04/04/2023 Tobacco - Denies Tobacco Use, 04/04/2023 Never (less than 100 in lifetime) Tobacco Use:. Never Smokeless Tobacco Use:. Household tobacco concerns: No., 09/03/2023 Family History CABG - Coronary artery bypass graft: Negative: Mother, Father, Sister and Brother. Diabetes mellitus type 2: Sister. Open heart surgery: Mother. Immunizations Vaccine Date Status diphtheria/pertussis, acel/tetanus adult 08/07/2013 Recorded tetanus-diphtheria toxoids 03/19/2004 Recorded Normal [facility] Comment on above: Result Comment: Elec tronically Signed By: Camila Max\.br\Date and Time Signed: 09/03/23 10:55 EDT Ambulatory Visit Summaryon 0 08-27-2023 Ambulatory Visit Summary MICHEAL BRICE :1940 Visit Date:08/27/2023 Ambulatory Visit Instructions Your Diagnosis Spider bite Your Care Team Attending Physician - Camila Max Primary Care Physician - Camila Max This Is Your Medications List amlodipine (amLODIPine 5 mg Tab) lactobacillus acidophilus (Acidophilus Probiotic Blend) terbinafine topical (Lamisil AT 1% Cream) triamcinolone topical (triamcinolone Top 0.1% Crm 15 gram) Procedures Performed Cholecystectomy (2023), Ankle, Bowel, Cataract, Finger, Knee replacement, Stomach. What to do next Scheduled Follow-Up Appointments Sunday 10:00 AM EDT With: Camila Max Where: [facility] Normal [address] [place] [address]- \.br\ Medications\.br \ What How Much When Why Instructions\.b r\ Unchanged amlodipine (amLODIPine 5 mg Tab) 1 Tablets By Mouth Every day Duration: 90 Days\.br\ Unchanged lactobacillus acidophilus (Acidophilus Probiotic Blend) 1 Capsules By Mouth 2 times a day\.br\ Unchanged terbinafine topical (Lamisil AT 1% Cream) 1 Application Topical 2 times a day Ringworm\.br\ Unchanged triamcinolone topical (triamcinolone Top 0.1% Crm 15 gram) 1 Application Topical 3 times a day BMI 35.0-35.9,adult Non-smoker\.br\ Allergies\.br\ No Known Allergies\.br\ Problems\.br\ Ongoing - Any problem that you are currently receiving treatment for.\.br\ BMI 36.0-36.9,adult \.br\ Cerumen impaction\.br\ Deep incisional surgical site infection\.br\ Hypertension\.b r\ Lipoma of back\.br\ Rash\.br\ S/P cholecystectomy \.br\ S/P umbilical hernia repair, follow-up exam\.br\ Spider bite\.br\ Surgical wound infection\.br\ Patient Survey\.br\ You may receive a survey via text or e-mail asking about your office visit. Please share your experience with us by completing your survey. We appreciate your feedback and thank you for choosing us for your care.\.br\ \.br\ [facility] C DIFFICILE BY PCRon 024 C. difficile toxin genes EKLVIN+probe Ql (Stl) TOXIGENIC C DIFF Positive (qualifier value) 027 NAP1 Negative (qualifier value) Normal [facility] Comment on above: Performed By: #### 5 [id number] #### [facility] ([id number]) [address] [place] [address] Family Medicine Office/Clini c Noteon 08-27-2023 Family Medicine Office/Clinic Note HPI Staff Micheal is a 83 year old female presenting for acute visit Onset: Sunday Pt has spider bite left upper calf, area is red and is blistered, c/o pain has been putting Triamcinolone cream and washed it with surgical soap has area covered with non adherent Telfa. Pt states started out size of a quarter. Has also put tea tree oil and lemon oil . denies fevers or chills History of Present Illness pt presents today with infected bug bit on upper calf Physical Exam General: alert, no acute distress ENMT: oral mucosa moist, no pharyngeal erythema or exudate Cardiovascular: regular rate and rhythm, normal peripheral perfusion Respiratory: Lungs CTA, respirations non labored Extremities: no deformity, no trauma Neurological: oriented x 4, LOC appropriate for age, CN II-XII intact, motor strength equal & normal bilaterally, speech normal upper calf (back of leg where knee bends) red and warm to touch Assessment/Plan 1. Spider bite (S70.369A: Insect bite (nonvenomous), unspecified thigh, initial encounter) pt presents today with possible spider bite. she isn't sure what bit her. area is red and warm to touch. had it covered with telfa and tape. area was marked with a marker. pt has keflex at home that she didn't take when she had wound infection because she went to the hospital for it. and was treated with IV antibiotics. pt does not have a fever or feel ill. encouraged her to go to ER if redness spreads past the michelle or if she starts feeling fevered or bad. encouraged her to keep area clean and dry. RTC 1 week Follow-up No qualifying data available Problem List/Past Medical History Ongoing BMI 36.0-36.9,adult Cerumen impaction Deep incisional surgical site infection Hypertension Lipoma of back Rash S/P cholecystectomy S/P umbilical hernia repair, follow-up exam Spider bite Surgical wound infection Historical No qualifying data Procedure/Surgical History Cholecystectomy (2023), Ankle, Bowel, Cataract, Finger, Knee replacement, Stomach. Medications Acidophilus Probiotic Blend, 1 cap(s), Oral, BID amLODIPine 5 mg Tab, 5 mg= 1 tab(s), Oral, Daily, 3 refills Lamisil AT 1% Cream, 1 ashwini, Topical, BID triamcinolone Top 0.1% Crm 15 gram, 1 ashwini, Topical, TID Allergies No Known Allergies Social History Alcohol - Denies Alcohol Use, 04/04/2023 Tobacco - Denies Tobacco Use, 04/04/2023 Never (less than 100 in lifetime) Tobacco Use:. Never Smokeless Tobacco Use:. Household tobacco concerns: No., 08/27/2023 Family History CABG - Coronary artery bypass graft: Negative: Mother, Father, Sister and Brother. Diabetes mellitus type 2: Sister. Open heart surgery: Mother. Immunizations Vaccine Date Status diphtheria/pertussis, acel/tetanus adult 08/07/2013 Recorded tetanus-diphtheria toxoids 03/19/2004 Recorded Normal [facility] Comment on above: Result Comment: Elec tronically Signed By: Camila Max\.sonido\Date and Time Signed: 08/27/23 11:38 EDT [facility][Note 3] 08-21-19 Population Health Case Information Case Priority: None Programs: -- Referral Source: [employer] Sales Representative Referral Reason: Care coordination Case Type: Transition Care Management Risk Score: -- Case Status: Enrolled (August 06, 2023) Date Assigned: August 06, 2023 Assigned By: Steve Nair Date Enrolled: August 06, 2023 Assigned Primary Personnel: Steve Nair Assigned Secondary Personnel: -- Case Physician: Camila Max Problems Ongoing BMI 36.0-36.9,adult Cerumen impaction Deep incisional surgical site infection Hypertension Lipoma of back Rash S/P cholecystectomy S/P umbilical hernia repair, follow-up exam Spider bite Surgical wound infection Historical No qualifying data Procedure/Surgical History Cholecystectomy (2023), Ankle, Bowel, Cataract, Finger, Knee replacement, Stomach. Home Medications Acidophilus Probiotic Blend, 1 cap(s), Oral, BID amLODIPine 5 mg Tab, 5 mg= 1 tab(s), Oral, Daily, 3 refills doxycycline hyclate 100 mg Tab, 100 mg= 1 tab(s), Oral, BID Lamisil AT 1% Cream, 1 ashwini, Topical, BID triamcinolone Top 0.1% Crm 15 gram, 1 ashwini, Topical, TID Allergies No Known Allergies Social History Alcohol - Denies Alcohol Use, 04/04/2023 Tobacco - Denies Tobacco Use, 04/04/2023 Never (less than 100 in lifetime) Tobacco Use:. Never Smokeless Tobacco Use:. Household tobacco concerns: No., 08/07/2023 Family History CABG - Coronary artery bypass graft: Negative: Mother, Father, Sister and Brother. Diabetes mellitus type 2: Sister. Open heart surgery: Mother. Screenings and Assessments 08/06/23 10:20:00 Result Name Value Comment Phone Call Monitoring Consent Agreed to continue call Phone Verification Patient Information Full name, street address and date of verified CM Program Enrollment Provides verbal consent for enrollment Goals and Interventions Care Plan Progress Note TCM#3- Patient states she is doing 'fine.' Reports she is able to do some work and bend over without having pain in her abdominal region. Patient notes she has just a small hole now on the incision that she covers with a Band-Aid. Notes just a small amount amount of watery drainage. Patient reports no change to blisters. Patient denies any itching or burning, size if a pin head. Patient is not lifting more than 10 lbs. Her next follow up with Dr. Olea is 08/26. Patient notes she is eating and drinking just fine. Notes 2-3 loose stools a day. She continues taking her probiotic and eats yogurt. Denies any foul odor to stool. Patient Advised patient it could take several days to clear up following ATB, report continued or worsening symptoms to provider. She verbalized understanding. Patient denies any further questions or concerns. Communication Events Date: August 14, 2023 Method: Phone call Type: Outbound Duration (min): 10 Outcome: Case discussion Contact Type: recovery coordinator Contact Name: Steve Nair Notes: TCM#2- See tcm note. Created By: Steve Nair Date: August 07, 2023 Method: Phone call Type: Outbound Duration (min): -- Outcome: No answer Contact Type: recovery coordinator Contact Name: Steve Nair Notes: TCM#1- follow up call- no ansswer, no vm. Created By: Steve Nair Date: August 06, 2023 Method: Phone call Type: Outbound Duration (min): 7 Outcome: Case discussion Contact Type: recovery coordinator Contact Name: Steve Nair Notes: TCM#1- see tcm note. Created By: Steve Nair Date: August 06, 2023 Method: Phone call Type: Outbound Duration (min): -- Outcome: No answer Contact Type: recovery coordinator Contact Name: Steve Nair Notes: TCM#1- attemtped to reach patient, no answer, no vm. CN will try again later. Created By: Steve Nair [facility] 08-14-19 24 [facility] Case Information Case Priority: None Programs: -- Referral Source: [employer] Sales Representative Referral Reason: Care coordination Case Type: Transition Care Management Risk Score: -- Case Status: Enrolled (August 06, 2023) Date Assigned: August 06, 2023 Assigned By: Steve Nair Date Enrolled: August 06, 2023 Assigned Primary Personnel: Steve Nair Assigned Secondary Personnel: -- Case Physician: Camila Max Problems Ongoing BMI 36.0-36.9,adult Cerumen impaction Deep incisional surgical site infection Hypertension Lipoma of back Rash S/P cholecystectomy S/P umbilical hernia repair, follow-up exam Spider bite Surgical wound infection Historical No qualifying data Procedure/Surgical History Cholecystectomy (2023), Ankle, Bowel, Cataract, Finger, Knee replacement, Stomach. Home Medications Acidophilus Probiotic Blend, 1 cap(s), Oral, BID amLODIPine 5 mg Tab, 5 mg= 1 tab(s), Oral, Daily, 3 refills doxycycline hyclate 100 mg Tab, 100 mg= 1 tab(s), Oral, BID Lamisil AT 1% Cream, 1 ashwini, Topical, BID triamcinolone Top 0.1% Crm 15 gram, 1 ashwini, Topical, TID Allergies No Known Allergies Social History Alcohol - Denies Alcohol Use, 04/04/2023 Tobacco - Denies Tobacco Use, 04/04/2023 Never (less than 100 in lifetime) Tobacco Use:. Never Smokeless Tobacco Use:. Household tobacco concerns: No., 08/07/2023 Family History CABG - Coronary artery bypass graft: Negative: Mother, Father, Sister and Brother. Diabetes mellitus type 2: Sister. Open heart surgery: Mother. Screenings and Assessments 08/06/23 10:20:00 Result Name Value Comment Phone Call Monitoring Consent Agreed to continue call Phone Verification Patient Information Full name, street address and date of verified CM Program Enrollment Provides verbal consent for enrollment Goals and Interventions Care Plan Progress Note TCM#2- Patient states she is doing good. States that the drainage from her incision is way down. She is still applying gauze and a Band-Aid. Patient does note some small blisters from the Band-Aids. She is rotating the Band-Aid to help. Patient has an appointment with Dr. Olea today at 1400, she is going to discuss. CN suggested a sensitive skin Band-Aid or medical tape as an alternative. Patient denies any fever or chills. Patient denies any constipation or diarrhea. Denies any urinary system issues. Patient is eating well. States she eats a lot of vegetables and chicken. Patient does report not sleeping well. Notes some discomfort when lying down. States feels like something is pulling. CN suggested sleeping on incline to see if improvement. Patient to discuss with Dr. Olea today. Patient denies any further questions or concerns. Communication Events Date: August 14, 2023 Method: Phone call Type: Outbound Duration (min): 10 Outcome: Case discussion Contact Type: recovery coordinator Contact Name: Steve Nair Notes: TCM#2- See tcm note. Created By: Steve Nair Date: August 07, 2023 Method: Phone call Type: Outbound Duration (min): -- Outcome: No answer Contact Type: recovery coordinator Contact Name: Steve Nair Notes: TCM#1- follow up call- no ansswer, no vm. Created By: Steve Nair Date: August 06, 2023 Method: Phone call Type: Outbound Duration (min): 7 Outcome: Case discussion Contact Type: recovery coordinator Contact Name: Steve Nair Notes: TCM#1- see tcm note. Created By: Steve Nair Date: August 06, 2023 Method: Phone call Type: Outbound Duration (min): -- Outcome: No answer Contact Type: recovery coordinator Contact Name: Steve Nair Notes: TCM#1- attemtped to reach patient, no answer, no vm. CN will try again later. Created By: Steve Nair [facility] Transfer Inon 08-10-2023 Transfer In [id number] .00TIFF [facility] Auth for Release of Medical Recordson 08-07-2023 Auth for Release of Medical Records [id number]. 00TIFF [facility] ED Note-Physicianon 08-07-19 ED Note-Physician [id number] .00TIFF [facility] Family Medicine Office/Clini c Noteon 08-07-2023 Family Medicine Office/Clinic Note HPI Staff Micheal is an 83 year old female presenting for acute visit JHOAN 07/26/23 surgical site was red and warm to touch started on cephalexin, then on 07/31/23-08/03/23 went to [facility] had surgery for abscess was started on Doxycycline had follow up appointment yesterday with Dr Lopez, she was advised not to pack wound anymore and take normal showers. Pt stated while in hospital blood pressure was 103/70, 120's/130's/80's. Pt states she did stop taking the amlodipine for a few days and yesterday blood pressure was 161 so she re started medication. Pt would like her surgical site of abdomen looked at. History of Present Illness pt presents for follow up incision check Review of Systems PHQ Score Initial Depression Screen Score: 0 SCORE Physical Exam Vitals & Measurements HR: 68(Peripheral) RR: 18 BP: 130/78 SpO2: 97% HT: 62 in HT: 158.0 cm WT: 85.9 kg WT: 188.98 lb BMI: 34.41 General: alert, no acute distress ENMT: oral mucosa moist, no pharyngeal erythema or exudate Cardiovascular: regular rate and rhythm, normal peripheral perfusion Respiratory: Lungs CTA, respirations non labored Extremities: no deformity, no trauma Neurological: oriented x 4, LOC appropriate for age, CN II-XII intact, motor strength equal & normal bilaterally, speech normal umbilical incision is open to air, tissue is pink and health minimal oozing noted. not redness or warmth around incision at this time Assessment/Plan 1. Deep incisional surgical site infection (T81.42XA: Infection following a procedure, deep incisional surgical site, initial encounter) pt was readmitted to hospital for IV treatment of incisional abscess from hernia surgery. wound is no longer being packed. this was order from surgeon that she seen yesterday. tissue is pink and healthy. minimal oozing noted. no odor, warmth or redness is noted in our around wound. much reassurance provided. instructed her to contact surgeon if wound becomes red, warm or has an odor or mal colored discharge. RTC as needed 2. BMI 34.0-34.9,adult (Z68.34: Body mass index [BMI] 34.0-34.9, adult) BMI education complete 3. Non-smoker (Z78.9: Other specified health status) continue not smoking Follow-up No qualifying data available Problem List/Past Medical History Ongoing BMI 36.0-36.9,adult Cerumen impaction Deep incisional surgical site infection Hypertension Lipoma of back Rash S/P cholecystectomy S/P umbilical hernia repair, follow-up exam Spider bite Surgical wound infection Historical No qualifying data Procedure/Surgical History Cholecystectomy (2023), Ankle, Bowel, Cataract, Finger, Knee replacement, Stomach. Medications Acidophilus Probiotic Blend, 1 cap(s), Oral, BID amLODIPine 5 mg Tab, 5 mg= 1 tab(s), Oral, Daily, 3 refills doxycycline hyclate 100 mg Tab, 100 mg= 1 tab(s), Oral, BID Lamisil AT 1% Cream, 1 ashwini, Topical, BID triamcinolone Top 0.1% Crm 15 gram, 1 ashwini, Topical, TID Allergies No Known Allergies Social History Alcohol - Denies Alcohol Use, 04/04/2023 Tobacco - Denies Tobacco Use, 04/04/2023 Never (less than 100 in lifetime) Tobacco Use:. Never Smokeless Tobacco Use:. Household tobacco concerns: No., 08/07/2023 Family History CABG - Coronary artery bypass graft: Negative: Mother, Father, Sister and Brother. Diabetes mellitus type 2: Sister. Open heart surgery: Mother. Immunizations Vaccine Date Status diphtheria/pertussis, acel/tetanus adult 08/07/2013 Recorded tetanus-diphtheria toxoids 03/19/2004 Recorded Normal [facility] Comment on above: Result Comment: Elec tronically Signed By: Cosmo BAILON, Camila Moreno\.br\Date and Time Signed: 08/07/23 11:13 EDT Cult,Aerobe/Anaerobeon 08-05 Cult,Aerobe/Anaerob e Specimen Description .ABDOMEN Direct Exam MANY NEUTROPHILS MODERATE GRAM POSITIVE COCCI IN PAIRS MODERATE GRAM NEGATIVE RODS Culture BACTEROIDES THETAIOTAOMICRON MODERATE GROWTH BETA LACTAMASE POSITIVE Identificati on by MALDI-TOF BACTEROIDES STERCORIS MODERATE GROWTH BETA LACTAMASE POSITIVE Identification by MALDI-TOF NO AEROBIC ORGANISMS ISOLATED Report Status FINAL 08/06/2023 Abnormal [facility] Comment on above: Performed By: #### A ANC #### [facility] [address] [place] [address] [employer] Operator: Salinas Escalante MD [facility] [address] [place] [address] [employer] Operator: Willy Henson MD [facility][Note 3] 08-06-19 [facility] Case Information Case Priority: None Programs: -- Referral Source: [employer] Sales Representative Referral Reason: Care coordination Case Type: Transition Care Management Risk Score: -- Case Status: Enrolled (August 06, 2023) Date Assigned: August 06, 2023 Assigned By: Steve Nair Date Enrolled: August 06, 2023 Assigned Primary Personnel: Steve Nair Assigned Secondary Personnel: -- Case Physician: Camila Max Problems Ongoing BMI 36.0-36.9,adult Cerumen impaction Hypertension Lipoma of back Rash S/P cholecystectomy S/P umbilical hernia repair, follow-up exam Spider bite Surgical wound infection Historical No qualifying data Procedure/Surgical History Cholecystectomy (2023), Ankle, Bowel, Cataract, Finger, Knee replacement, Stomach. Home Medications Acidophilus Probiotic Blend, 1 cap(s), Oral, BID amLODIPine 5 mg Tab, 5 mg= 1 tab(s), Oral, Daily, 3 refills Lamisil AT 1% Cream, 1 ashwini, Topical, BID triamcinolone Top 0.1% Crm 15 gram, 1 ashwini, Topical, TID Allergies No Known Allergies Social History Alcohol - Denies Alcohol Use, 04/04/2023 Tobacco - Denies Tobacco Use, 04/04/2023 Never (less than 100 in lifetime) Tobacco Use:. Never Smokeless Tobacco Use:. Household tobacco concerns: No., 07/26/2023 Family History CABG - Coronary artery bypass graft: Negative: Mother, Father, Sister and Brother. Diabetes mellitus type 2: Sister. Open heart surgery: Mother. Screenings and Assessments 08/06/23 10:20:00 Result Name Value Comment Phone Call Monitoring Consent Agreed to continue call Phone Verification Patient Information Full name, street address and date of verified CM Program Enrollment Provides verbal consent for enrollment Goals and Interventions Care Plan Progress Note Admit Date: 07/31/23 [facility] [place] Date of Discharge: 08/03/23 Follow-up appointment scheduled? not at this time, appointment today with surgeon at 1100 Did you understand your discharge instructions? yes, to report to the hospital twice daily at 7 a and 7 p for dressing changes- to ER for weekends and evenings, otpt weekday mornings Are you able to follow them? yes Did you receive new medications? yes, doxycycline 100 mg BID x 7 days Have you filled the Rx's? yes Are you taking them as prescribed? yes Are you having difficulty eating or swallowing your pills? no Are you having any stomach upset, diarrhea or constipation? no How are you sleeping? n/a Are you having any pain? patient denies pain, states 'I'm not comfortable' Do you have everything you need at home to care for yourself? yes but would like home health to help with wound care/ dressing changes Do you have Home Health? no, but would like to have hh for wound care/ dressing changes Called patient for initial Transitional Care Management Program call. Readmission risk unavailable. Reviewed d/c instructions and dx of; post op wound abscess, failure of treatment post op, abscess of umbilicus, abscess of abd wall wound post op. Reviewed purpose and side effects of new medication. Patient had incision and drainage on 07/1423. Patient states 'things aren't going very well.' Patient was instructed to hold amlodipine, however patient states she has been taking due to SBP readings in the 150's. Reports BP this am 158/?. Patient states she is very nervous due to the post op complications. Patient denies any pain, however states her incision area is 'kind of sore again', similar to before abscess. Patient notes redness hes gone away. Notes she Patient admits she told the staff at [place] she would not go back to the [facility]. Patient states she has a follow up with the surgeon today at 1100. Patient is scheduled for twice daily dressing changes at the hospital. Patient would like to have home health. Patient is going to call back after her follow up today to schedule TCM follow up and to reconcile medications. CN explained TCM program and provided CN contact number. Patient denies any further questions or concerns at this time. Communication Events Date: August 06, 2023 Method: Phone call Type: Outbound Duration (min): 7 Outcome: Case discussion Contact Type: recovery coordinator Contact Name: Steve Nair Notes: TCM#1- see tcm note. Created By: Steve Nair Date: August 06, 2023 Method: Phone call Type: Outbound Duration (min): -- Outcome: No answer Contact Type: recovery coordinator Contact Name: Steve Nair Notes: TCM#1- attemtped to reach patient, no answer, no vm. CN will try again later. Created By: Steve Nair [facility] CBC auto differentialon 05- Basophils (Bld) [#/Vol] 0.12 10*3/uL Soonr [facility] Basophils/100 WBC (Bld) 1 % 0 - 2 % Burt [facility] Eosinophils (Bld) [#/Vol] 0.00 10*3/uL [facility] Eosinophils/100 WBC (Bld) 0 % Low 1 - 4 % [facility] Erythrocyte distribution width (RBC) [Ratio] 12.5 % 11.8 - 14.4 % [facility] Hematocrit (Bld) [Volume fraction] 35.0 % Low 36.3 - 47.1 % [facility] Hemoglobin (Bld) [Mass/Vol] 10.9 g/dL Low 11.9 - 15.1 g/dL [facility] Immature granulocytes (Bld) [#/Vol] 0.12 10*3/uL [facility] Immature granulocytes/100 WBC (Bld) 1 % High 0 [facility] Interpretation and review of laboratory results Abnormal [facility] Lymphocytes/100 WBC (Bld) 74 % High 24 - 43 % [facility] Lymphocytes/100 WBC (Bld) 8.73 % High [facility] MCH (RBC) [Entitic mass] 28.6 pg 25.2 - 33.5 pg [facility] MCHC (RBC) [Mass/Vol] 31.1 g/dL 28.4 - 34.8 g/dL [facility] MCV (RBC) [Entitic vol] 91.9 fL 82.6 - 102.9 fL [facility] Monocytes/100 WBC (Bld) 4 % 3 - 12 % [facility] Monocytes/100 WBC (Bld) 0.47 % [facility] Morphology Ki (Bld) [Interp] Normal [facility] Neutrophils/100 WBC (Bld) 20 % Low 36 - 65 % [facility] Nucleated RBC/100 WBC (Bld) [Ratio] 0.0 % 0.0 per 100 WBC [facility] Platelet mean volume (Bld) [Entitic vol] 10.8 fL 8.1 - 13.5 fL [facility] Platelets (Bld) [#/Vol] 240 10*3/uL [facility] RBC (Bld) [#/Vol] 3.81 10*6/uL Low 3.95 - 5.1 1 m/uL [facility] Segmented neutrophils/100 WBC (Bld) 2.36 % [facility] WBC other (Bld) [#/Vol] 11.8 High [facility] CBC with Diffon 08-03-2023 Abs. Basophil 0.12 k/uL Normal 0.0-0.2 [facility] Comment on above: Performed By: #### C DP, CMPX #### [facility] [address] [place], [place] [id number] [employer] Operator: Willy Henson MD Abs.Imm.Granulocyte 0.12 k/uL Normal 0.00-0.30 [facility] Comment on above: Performed By: #### C DP, CMPX #### [facility] [address] [place], [place] [id number] [employer] Operator: Willy Henson MD Abs.Neutrophil (Seg) 2.36 k/uL Normal 1.50-8.10 [facility] Comment on above: Performed By: #### C DP, CMPX #### [facility] [address] [place], [place] [id number] [employer] Operator: Willy Henson MD Basophils/100 WBC (Bld) 1 % Normal 0-2 [facility] Comment on above: Performed By: #### C DP, CMPX #### [facility] [address] [place] [address] [employer] Operator: Willy Henson MD Eosinophils (Bld) [#/Vol] 0.00 10*3/uL Normal 0.00-0.44 [facility] Comment on above: Performed By: #### C DP, CMPX #### [facility] [address] [place] [address] [employer] Operator: Willy Henson MD Eosinophils/100 WBC (Bld) 0 % Low 1-4 [facility] Comment on above: Performed By: #### C DP, CMPX #### [facility] [address] [place], [place] [id number] [employer] Operator: Willy Henson MD Immature granulocytes/100 WBC (Bld) 1 % High 0 [facility] Comment on above: Performed By: #### C DP, CMPX #### [facility] [address] [place] [address] [employer] Operator: Willy Henson MD Lymphocytes (Bld) [#/Vol] 8.73 10*3/uL High 1.10-3.70 [facility] Comment on above: Performed By: #### C DP, CMPX #### [facility] [address] [place], [place] [address] [employer] Operator: Willy Henson MD Lymphocytes/100 WBC (Bld) 74 % High 24-43 [facility] Comment on above: Performed By: #### C DP, CMPX #### [facility] [address] [place] [employer] Operator: Willy Henson MD Monocytes (Bld) [#/Vol] 0.47 10*3/uL Normal 0.10-1.20 [facility] Comment on above: Performed By: #### C DP, CMPX #### [address] [place] [employer] Operator: Willy Henson MD Monocytes/100 WBC (Bld) 4 % Normal 3-12 [facility] Comment on above: Performed By: #### C DP, CMPX #### [facility] [address] [place], [place] [id number] [employer] Operator: Willy Henson MD Morphology Ki (Bld) [Interp] Normal Normal [facility] Comment on above: Performed By: #### C DP, CMPX #### [facility] [address] [place] [employer] Operator: Willy Henson MD Neutrophil (Seg) 20 % Low 36-65 [facility] Comment on above: Performed By: #### C DP, CMPX #### [address] [place], [place] [id number] [employer] Operator: Willy Henson MD Erythrocyte distribution width (RBC) [Ratio] 12.5 % Normal 11.8-14.4 [facility] Comment on above: Performed By: #### C DP, CMPX #### [address] [place], [place] [id number] [employer] Operator: Willy Henson MD Hematocrit (Bld) [Volume fraction] 35.0 % Low 36.3-47.1 [facility] Comment on above: Performed By: #### C DP, CMPX #### [address] [place], [place] [id number] [employer] Operator: Willy Henson MD Hemoglobin (Bld) [Mass/Vol] 10.9 g/dL Low 11.9-15.1 [facility] Comment on above: Performed By: #### C DP, CMPX #### [address] [place] [address] [employer] Operator: Willy Henson MD MCH (RBC) [Entitic mass] 28.6 pg Normal 25.2-33.5 [facility] Comment on above: Performed By: #### C DP, CMPX #### [address] [place], [place] [id number] [employer] Operator: Willy Henson MD MCHC (RBC) [Mass/Vol] 31.1 g/dL Normal 28.4-34.8 [facility] Comment on above: Performed By: #### C DP, CMPX #### [address] [place] [address] [employer] Operator: Willy Henson MD MCV (RBC) [Entitic vol] 91.9 fL Normal 82.6-102.9 [facility] Comment on above: Performed By: #### C DP, CMPX #### [facility] [address] [place] [address] [employer]: Willy Henson MD NRBC Automated 0.0 per 100 WBC Normal 0.0 [facility] Comment on above: Performed By: #### C DP, CMPX #### [facility] [address] [place] [address] [employer] Operator: Willy Henson MD Platelet mean volume (Bld) [Entitic vol] 10.8 fL Normal 8.1-13.5 [facility] Comment on above: Performed By: #### C DP, CMPX #### [address] [place], [place] 9907583 [employer] Operator: Willy Henson MD Platelets (Bld) [#/Vol] 240 10*3/uL Normal 138-453 [facility] Comment on above: Performed By: #### C DP, CMPX #### [address] [place], [place] [id number] [employer] Operator: Willy Henson MD RBC (Bld) [#/Vol] 3.81 10*6/uL Low 3.95-5.11 [facility] Comment on above: Performed By: #### C DP, CMPX #### [address] [place], [place] [id number] [employer] Operator: Willy Henson MD WBC (Bld) [#/Vol] 11.8 10*3/uL High 3.5-11.3 [facility] Comment on above: Performed By: #### C DP, CMPX #### [facility] [address] [place] [address] [employer] Operator: Willy Henson MD Comp Metabolic Pr/rfx MGon 0 - Albumin [Mass/Vol] 3.4 g/dL Low 3.5-5.2 [facility] Comment on above: Performed By: #### C DP, CMPX #### [facility] [address] [place], [place] [phone] [employer] Operator: Willy Henson MD Albumin/Glob Ratio 1.4 Normal 1.0-2.5 [facility] Comment on above: Performed By: #### C DP, CMPX #### [facility] [address] [place] [address] [employer] Operator: Willy Henson MD Alkaline Phos 105 U/L High 35-104 [facility] Comment on above: Performed By: #### C DP, CMPX #### [facility] [address] [place], [place] [phone] [employer] Operator: Willy Henson MD ALT [Catalytic activity/Vol] 13 U/L Normal 5-33 [facility] Comment on above: Performed By: #### C DP, CMPX #### [facility] [address] [place] [address] [employer]: Willy Henson MD Anion gap [Moles/Vol] 10 mmol/L Normal 9-17 [facility] Comment on above: Performed By: #### C DP, CMPX #### [facility] [address] [place] [address] [employer]: Willy Henson MD AST [Catalytic activity/Vol] 15 U/L Normal <32 [facility] Comment on above: Performed By: #### C DP, CMPX #### [facility] [address] [place] [address] [employer] Operator: Willy Henson MD Bilirubin [Mass/Vol] 0.2 mg/dL Low 0.3-1.2 [facility] Comment on above: Performed By: #### C DP, CMPX #### [facility] [address] [place], [place] [phone] [employer] Operator: Willy Henson MD BUN/CRE Ratio 21 High 9-20 [facility] Comment on above: Performed By: #### C DP, CMPX #### [facility] [address] [place], [place] [phone] [employer] Operator: Willy Henson MD Calcium [Mass/Vol] 9.1 mg/dL Normal 8.6-10.4 [facility] Comment on above: Performed By: #### C DP, CMPX #### [facility] [address] [place], [place] [phone] [employer] Operator: Willy Henson MD Chloride [Moles/Vol] 107 mmol/L Normal 98-107 [facility] Comment on above: Performed By: #### C DP, CMPX #### [facility] [address] [place], [place] 1016283 [employer] Operator: Willy Henson MD CO2 [Moles/Vol] 23 mmol/L Normal 20-31 [facility] Comment on above: Performed By: #### C DP, CMPX #### [facility] [address] [place], [place] [phone] [employer] Operator: Willy Henson MD Creatinine [Mass/Vol] 0.8 mg/dL Normal 0.5-0.9 [facility] Comment on above: Performed By: #### C DP, CMPX #### [facility] [address] [place], [place] [phone] [employer] Operator: Willy Henson MD GFR/1.73 sq M.predicted among non-blacks MDRD (S/P/Bld) [Vol rate/Area] 74 mL/min/{1.73_m2} Normal >60 [facility] Comment on above: Result Comment: [...] tubular secretion. Performed By: #### C DP, CMPX #### [facility] [address] [place], [place] [phone] [employer] Operator: Willy Henson MD Glucose [Mass/Vol] 91 mg/dL Normal 70-99 [facility] Comment on above: Performed By: #### C DP, CMPX #### [facility] [address] [place], [place] 606[address]83 [employer] Operator: Willy Henson MD Potassium [Moles/Vol] 4.2 mmol/L Normal 3.7-5.3 [facility] Comment on above: Performed By: #### C DP, CMPX #### [facility] [address] [place], [place] 1415783 [employer] Operator: Willy Henson MD Protein [Mass/Vol] 5.9 g/dL Low 6.4-8.3 [facility] Comment on above: Performed By: #### C DP, CMPX #### [address] [place], [place] 5559383 [employer] Operator: Willy Henson MD Sodium [Moles/Vol] 140 mmol/L Normal 135-144 [facility] Comment on above: Performed By: #### C DP, CMPX #### [facility] [address] [place], [place] [phone] [employer] Operator: Willy Henson MD Urea nitrogen [Mass/Vol] 17 mg/dL Normal 8-23 [facility] Comment on above: Performed By: #### C DP, CMPX #### [facility] [address] [place], [place] [phone] [employer] Operator: Willy Henson MD Comprehensive Metabolic Pane l w/ Reflex to MGon 08-03-2023 Albumin [Mass/Vol] 3.4 g/dL Low 3.5 - 5.2 g/dL [facility] Albumin/Globulin [Mass ratio] 1.4 {ratio} 1.0 - 2.5 [facility] ALP [Catalytic activity/Vol] 105 U/L High 35 - 104 U/L [facility] ALT [Catalytic activity/Vol] 13 U/L 5 - 33 U/L [facility] Anion gap [Moles/Vol] 10 mmol/L 9 - 17 mmol/L [facility] AST [Catalytic activity/Vol] 15 U/L NINF - 32 U/L [facility] Bilirubin [Mass/Vol] 0.2 mg/dL Low 0.3 - 1.2 mg/dL [facility] Calcium [Mass/Vol] 9.1 mg/dL 8.6 - 10. 4 mg/dL [facility] Chloride [Moles/Vol] 107 mmol/L 98 - 107 mmol/L [facility] CO2 [Moles/Vol] 23 mmol/L 20 - 31 mmol/L [facility] Creatinine [Mass/Vol] 0.8 mg/dL 0.5 - 0.9 mg/dL [facility] Est, Glom Filt Rate 74 - PINF [facility] Comment on above: These results are not intended for use [...] following therapy that affects renal tubular secretion. Glucose [Mass/Vol] 91 mg/dL 70 - 99 mg/dL [facility] Interpretation and review of laboratory results Abnormal [facility] Potassium [Moles/Vol] 4.2 mmol/L 3.7 - 5.3 mmol/L [facility] Protein [Mass/Vol] 5.9 g/dL Low 6.4 - 8.3 g/dL [facility] Sodium [Moles/Vol] 140 mmol/L 135 - 144 mmol/L [facility] Urea nitrogen [Mass/Vol] 17 mg/dL 8 - 23 mg/dL [facility] Urea nitrogen/Creatinine [Mass ratio] 21 mg/mg High 9 - 20 [facility] EKG Rhythm Stripon [facility] CBC auto differentialon 07-17 Basophils (Bld) [#/Vol] 0.00 10*3/uL [facility] Basophils/100 WBC (Bld) 0 % 0 - 2 % [facility] Eosinophils (Bld) [#/Vol] 0.00 10*3/uL [facility] Eosinophils/100 WBC (Bld) 0 % Low 1 - 4 % [facility] Erythrocyte distribution width (RBC) [Ratio] 12.2 % 11.8 - 14.4 % [facility] Hematocrit (Bld) [Volume fraction] 30.9 % Low 36.3 - 47.1 % [facility] Hemoglobin (Bld) [Mass/Vol] 9.9 g/dL Low 11.9 - 15.1 g/dL [facility] Immature granulocytes (Bld) [#/Vol] 0.00 10*3/uL [facility] Immature granulocytes/100 WBC (Bld) 0 % 0 [facility] Interpretation and review of laboratory results Abnormal [facility] Lymphocytes/100 WBC (Bld) 56 % High 24 - 43 % [facility] Lymphocytes/100 WBC (Bld) 5.71 % High [facility] MCH (RBC) [Entitic mass] 28.6 pg 25.2 - 33.5 pg [facility] MCHC (RBC) [Mass/Vol] 32.0 g/dL 28.4 - 34.8 g/dL [facility] MCV (RBC) [Entitic vol] 89.3 fL 82.6 - 102.9 fL [facility] Monocytes/100 WBC (Bld) 8 % 3 - 12 % [facility] Monocytes/100 WBC (Bld) 0.82 % [facility] Morphology Ki (Bld) [Interp] Normal [facility] Neutrophils/100 WBC (Bld) 36 % 36 - 65 % [facility] Nucleated RBC/100 WBC (Bld) [Ratio] 0.0 % 0.0 per 100 WBC [facility] Platelet mean volume (Bld) [Entitic vol] 11.1 fL 8.1 - 13.5 fL [facility] Platelets (Bld) [#/Vol] 222 10*3/uL [facility] RBC (Bld) [#/Vol] 3.46 10*6/uL Low 3.95 - 5.1 1 m/uL [facility] Segmented neutrophils/100 WBC (Bld) 3.67 % [facility] WBC other (Bld) [#/Vol] 10.2 [facility] CBC with Diffon 08-02-2023 Abs. Basophil 0.00 k/uL Normal 0.0-0.2 [facility] Comment on above: Performed By: #### B SKYLAR, CDP #### [facility] [address] [place] [address] Dr. [place] [employer] Operator: Willy Henson MD Abs.Imm.Granulocyte 0.00 k/uL Normal 0.00-0.30 [facility] Comment on above: Performed By: #### B SKYLAR, CDP #### [facility] [address] [place], [facility] [employer] Operator: Willy Henson MD Abs.Neutrophil (Seg) 3.67 k/uL Normal 1.50-8.10 [facility] Comment on above: Performed By: #### B SKYLAR, CDP #### [facility] [address] [place], [facility] [employer] Operator: Willy Henson MD Basophils/100 WBC (Bld) 0 % Normal 0-2 [facility] Comment on above: Performed By: #### B SKYLAR, CDP #### [facility] [address] [place], [place] [phone] [employer] Operator: Willy Henson MD Eosinophils (Bld) [#/Vol] 0.00 10*3/uL Normal 0.00-0.44 [facility] Comment on above: Performed By: #### B MP, CDP #### [facility] [address] [place] [address] [place] [address] [employer] Operator: Willy Henson MD Eosinophils/100 WBC (Bld) 0 % Low 1-4 [facility] Comment on above: Performed By: #### B MP, CDP #### [address] [place], [place] 9368783 [employer] Operator: Willy Henson MD Immature granulocytes/100 WBC (Bld) 0 % Normal 0 [facility] Comment on above: Performed By: #### B SKYLAR, CDP #### [facility] [address] [place] [address] Dr. [place] [employer] Operator: Willy Henson MD Lymphocytes (Bld) [#/Vol] 5.71 10*3/uL High 1.10-3.70 [facility] Comment on above: Performed By: #### B SKYLAR, CDP #### [address] [place], [facility] [employer] Operator: Willy Henson MD Lymphocytes/100 WBC (Bld) 56 % High 24-43 [facility] Comment on above: Performed By: #### B SKYLAR, CDP #### [facility] [address] [place] [address] Dr. [place], [place] [phone] [employer] Operator: Willy Henson MD Monocytes (Bld) [#/Vol] 0.82 10*3/uL Normal 0.10-1.20 [facility] Comment on above: Performed By: #### B MP, CDP #### [facility] [address] [place] [address] Dr. [place], [place] [phone] [employer] Operator: Willy Henson MD Monocytes/100 WBC (Bld) 8 % Normal 3-12 [facility] Comment on above: Performed By: #### B MP, CDP #### [facility] [address] [place] [address] Dr. [place], [place] [phone] [employer] Operator: Willy Henson MD Morphology Ki (Bld) [Interp] Normal Normal [facility] Comment on above: Performed By: #### B MP, CDP #### [address] [place] [employer] Operator: Willy Henson MD Neutrophil (Seg) 36 % Normal 36-65 [facility] Comment on above: Performed By: #### B SKYLAR, CDP #### [address] [place], [facility] [employer] Operator: Willy Henson MD Erythrocyte distribution width (RBC) [Ratio] 12.2 % Normal 11.8-14.4 [facility] Comment on above: Performed By: #### B SKYLAR, CDP #### [address] [place], [place] 9721283 [employer] Operator: Willy Henson MD Hematocrit (Bld) [Volume fraction] 30.9 % Low 36.3-47.1 [facility] Comment on above: Performed By: #### B SKYLAR, CDP #### [address] [place] [employer] Operator: Willy Henson MD Hemoglobin (Bld) [Mass/Vol] 9.9 g/dL Low 11.9-15.1 [facility] Comment on above: Performed By: #### B MP, CDP #### [address] [place], [place] [phone] [employer] Operator: Willy Henson MD MCH (RBC) [Entitic mass] 28.6 pg Normal 25.2-33.5 [facility] Comment on above: Performed By: #### B MP, CDP #### [address] [place], [place] [phone] [employer] Operator: Willy Henson MD MCHC (RBC) [Mass/Vol] 32.0 g/dL Normal 28.4-34.8 [facility] Comment on above: Performed By: #### B MP, CDP #### [address] [place], [place] [id number] [employer] Operator: Willy Henson MD MCV (RBC) [Entitic vol] 89.3 fL Normal 82.6-102.9 [facility] Comment on above: Performed By: #### B SKYLAR, CDP #### [address] [place] [address] [employer] Operator: Willy Henson MD NRBC Automated 0.0 per 100 WBC Normal 0.0 [facility] Comment on above: Performed By: #### B SKYLAR, CDP #### [address] [place], [place] [id number] [employer] Operator: Willy Henson MD Platelet mean volume (Bld) [Entitic vol] 11.1 fL Normal 8.1-13.5 [facility] Comment on above: Performed By: #### B SKYLAR, CDP #### [address] [place], [place] [phone] [employer] Operator: Willy Henson MD Platelets (Bld) [#/Vol] 222 10*3/uL Normal 138-453 [facility] Comment on above: Performed By: #### B MP, CDP #### [address] [place], [place] 0677283 [employer] Operator: Willy Henson MD RBC (Bld) [#/Vol] 3.46 10*6/uL Low 3.95-5.11 [facility] Comment on above: Performed By: #### B MP, CDP #### [address] [place], [place] [phone] [employer] Operator: Willy Henson MD WBC (Bld) [#/Vol] 10.2 10*3/uL Normal 3.5-11.3 [facility] Comment on above: Performed By: #### B SKYLAR, CDP #### [facility] [address] [place], [place] 9698983 [employer] Operator: Willy Henson MD Comp Metabolic Pr/rfx MGon 0 - Albumin [Mass/Vol] 3.3 g/dL Low 3.5-5.2 [facility] Comment on above: Performed By: #### B SKYLAR, CDP #### [facility] [address] [place], [place] 280[address]83 [employer] Operator: Willy Henson MD Albumin/Glob Ratio 1.6 Normal 1.0-2.5 [facility] Comment on above: Performed By: #### B SKYLAR, CDP #### [facility] [address] [place], [place] [phone] [employer] Operator: Willy Henson MD Alkaline Phos 102 U/L Normal 35-104 [facility] Comment on above: Performed By: #### B SKYLAR, CDP #### [facility] [address] [place] [address] Dr[place], [place] [phone] [employer] Operator: Willy Henson MD ALT [Catalytic activity/Vol] 10 U/L Normal 5-33 [facility] Comment on above: Performed By: #### B SKYLAR, CDP #### [facility] [address] [place], [place] 1234483 [employer] Operator: Willy Henson MD Anion gap [Moles/Vol] 8 mmol/L Low 9-17 [facility] Comment on above: Performed By: #### B SKYLAR, CDP #### [facility] [address] [place], [place] 9138083 [employer] Operator: Willy Henson MD AST [Catalytic activity/Vol] 11 U/L Normal <32 [facility] Comment on above: Performed By: #### B MP, CDP #### [facility] [address] [place], [place] [phone] [employer] Operator: Willy Henson MD Bilirubin [Mass/Vol] 0.3 mg/dL Normal 0.3-1.2 [facility] Comment on above: Performed By: #### B MP, CDP #### [facility] [address] [place], [place] [phone] [employer] Operator: Willy Henson MD BUN/CRE Ratio 26 High 9-20 [facility] Comment on above: Performed By: #### B SKYLAR, CDP #### [facility] [address] [place], [place] [phone] [employer] Operator: Willy Henson MD Calcium [Mass/Vol] 8.8 mg/dL Normal 8.6-10.4 [facility] Comment on above: Performed By: #### B MP, CDP #### [facility] [address] [place], [place] 0882783 [employer] Operator: Willy Henson MD Chloride [Moles/Vol] 107 mmol/L Normal 98-107 [facility] Comment on above: Performed By: #### B MP, CDP #### [facility] [address] [place], [place] 2387783 [employer] Operator: Willy Henson MD CO2 [Moles/Vol] 24 mmol/L Normal 20-31 [facility] Comment on above: Performed By: #### B MP, CDP #### [facility] [address] [place], [place] 358[address]83 [employer] Operator: Willy Henson MD Creatinine [Mass/Vol] 0.7 mg/dL Normal 0.5-0.9 [facility] Comment on above: Performed By: #### B MP, CDP #### [facility] [address] [place], [place] [phone] [employer] Operator: Willy Henson MD GFR/1.73 sq M.predicted among non-blacks MDRD (S/P/Bld) [Vol rate/Area] 87 mL/min/{1.73_m2} Normal >60 [facility] Comment on above: Result Comment: [...] affects renal tubular secretion. Performed By: #### B SKYLAR, CDP #### [address] [place] [address] [employer] Operator: Willy Henson MD Glucose [Mass/Vol] 105 mg/dL High 70-99 [facility] Comment on above: Performed By: #### B SKYLAR, CDP #### [facility] [address] [place] [address] [place] [address] [employer] Operator: Willy Henson MD Potassium [Moles/Vol] 4.2 mmol/L Normal 3.7-5.3 [facility] Comment on above: Performed By: #### B SKYLAR, CDP #### [address] [place] [address] [employer] Operator: Willy Henson MD Protein [Mass/Vol] 5.4 g/dL Low 6.4-8.3 [facility] Comment on above: Performed By: #### B SKYLAR, CDP #### [facility] [address] [place] [address] [place] [address] [employer] Operator: Willy Henson MD Sodium [Moles/Vol] 139 mmol/L Normal 135-144 [facility] Comment on above: Performed By: #### B SKYLAR, CDP #### [facility] [address] [place] [address] [place] [address] [employer] Operator: Willy Henson MD Urea nitrogen [Mass/Vol] 18 mg/dL Normal 8-23 [facility] Comment on above: Performed By: #### B MP, CDP #### [facility] [address] [place] [address] [employer] Operator: Willy Henson MD Comprehensive Metabolic Pane l w/ Reflex to MGon 08-02-2023 Albumin [Mass/Vol] 3.3 g/dL Low 3.5 - 5.2 g/dL [facility] Albumin/Globulin [Mass ratio] 1.6 {ratio} 1.0 - 2.5 [facility] ALP [Catalytic activity/Vol] 102 U/L 35 - 104 U/L [facility] ALT [Catalytic activity/Vol] 10 U/L 5 - 33 U/L [facility] Anion gap [Moles/Vol] 8 mmol/L Low 9 - 17 mmol/L [facility] AST [Catalytic activity/Vol] 11 U/L NINF - 32 U/L [facility] Bilirubin [Mass/Vol] 0.3 mg/dL 0.3 - 1.2 mg/dL [facility] Calcium [Mass/Vol] 8.8 mg/dL 8.6 - 10. 4 mg/dL [facility] Chloride [Moles/Vol] 107 mmol/L 98 - 107 mmol/L [facility] CO2 [Moles/Vol] 24 mmol/L 20 - 31 mmol/L [facility] Creatinine [Mass/Vol] 0.7 mg/dL 0.5 - 0.9 mg/dL [facility] Est, Glom Filt Rate 87 - PINF [facility] Comment on above: These results are not intended for use [...] following therapy that affects renal tubular secretion. Glucose [Mass/Vol] 105 mg/dL High 70 - 99 mg/dL [facility] Interpretation and review of laboratory results Abnormal [facility] Potassium [Moles/Vol] 4.2 mmol/L 3.7 - 5.3 mmol/L [facility] Protein [Mass/Vol] 5.4 g/dL Low 6.4 - 8.3 g/dL [facility] Sodium [Moles/Vol] 139 mmol/L 135 - 144 mmol/L [facility] Urea nitrogen [Mass/Vol] 18 mg/dL 8 - 23 mg/dL [facility] Urea nitrogen/Creatinine [Mass ratio] 26 mg/mg High 9 - 20 [facility] EKG Rhythm Stripon [facility] CBC auto differentialon 07-17 Basophils (Bld) [#/Vol] [facility] Basophils/100 WBC (Bld) 0 % 0 - 2 % [facility] Eosinophils (Bld) [#/Vol] [facility] Eosinophils/100 WBC (Bld) 0 % Low 1 - 4 % [facility] Erythrocyte distribution width (RBC) [Ratio] 11.9 % 11.8 - 14.4 % [facility] Hematocrit (Bld) [Volume fraction] 35.6 % Low 36.3 - 47.1 % [facility] Hemoglobin (Bld) [Mass/Vol] 11.5 g/dL Low 11.9 - 15.1 g/dL [facility] Immature granulocytes (Bld) [#/Vol] 0.04 10*3/uL [facility] Immature granulocytes/100 WBC (Bld) 0 % 0 [facility] Interpretation and review of laboratory results Abnormal [facility] Lymphocytes/100 WBC (Bld) 44 % High 24 - 43 % [facility] Lymphocytes/100 WBC (Bld) 5.25 % High [facility] MCH (RBC) [Entitic mass] 29.0 pg 25.2 - 33.5 pg [facility] MCHC (RBC) [Mass/Vol] 32.3 g/dL 28.4 - 34.8 g/dL [facility] MCV (RBC) [Entitic vol] 89.7 fL 82.6 - 102.9 fL [facility] Monocytes/100 WBC (Bld) 1 % Low 3 - 12 % [facility] Monocytes/100 WBC (Bld) 0.15 % [facility] Neutrophils/100 WBC (Bld) 55 % 36 - 65 % [facility] Nucleated RBC/100 WBC (Bld) [Ratio] 0.0 % 0.0 per 100 WBC [facility] Platelet mean volume (Bld) [Entitic vol] 11.0 fL 8.1 - 13.5 fL [facility] Platelets (Bld) [#/Vol] 240 10*3/uL [facility] RBC (Bld) [#/Vol] 3.97 10*6/uL 3.95 - 5.1 1 m/uL [facility] Segmented neutrophils/100 WBC (Bld) 6.38 % [facility] WBC other (Bld) [#/Vol] 11.9 High [facility] CBC with Diffon 08-01-2023 Abs. Basophil <0.03 Normal 0.00-0.20 [facility] Comment on above: Performed By: #### C DP, CMPX #### [facility] [address] [place] [address] [place]. [place] [employer]: Willy Henson MD Abs. Eosinophil <0.03 Normal 0.00-0.44 [facility] Comment on above: Performed By: #### C DP, CMPX #### [facility] [address] [place] [address] Dr. [place] [employer]: Willy Henson MD Abs.Imm.Granulocyte 0.04 k/uL Normal 0.00-0.30 [facility] Comment on above: Performed By: #### C DP, CMPX #### [facility] [address] [place], [place] [phone] [employer]: Willy Henson MD Abs.Neutrophil (Seg) 6.38 k/uL Normal 1.50-8.10 [facility] Comment on above: Performed By: #### C DP, CMPX #### [address] [place] [address] [employer]: Willy Henson MD Basophils/100 WBC (Bld) 0 % Normal 0-2 [facility] Comment on above: Performed By: #### C DP, CMPX #### [address] [place], [place] [phone] [employer]: Willy Henson MD Eosinophils/100 WBC (Bld) 0 % Low 1-4 [facility] Comment on above: Performed By: #### C DP, CMPX #### [address] [place], [place] [phone] [employer]: Willy Henson MD Erythrocyte distribution width (RBC) [Ratio] 11.9 % Normal 11.8-14.4 [facility] Comment on above: Performed By: #### C DP, CMPX #### [address] [place], [place] [phone] [employer]: Willy Henson MD Hematocrit (Bld) [Volume fraction] 35.6 % Low 36.3-47.1 [facility] Comment on above: Performed By: #### C DP, CMPX #### [address] [place], [place] [phone] [employer]: Willy Henson MD Hemoglobin (Bld) [Mass/Vol] 11.5 g/dL Low 11.9-15.1 [facility] Comment on above: Performed By: #### C DP, CMPX #### [address] [place], [place] [phone] [employer]: Willy Henson MD Immature granulocytes/100 WBC (Bld) 0 % Normal 0 [facility] Comment on above: Performed By: #### C DP, CMPX #### [facility] [address] [place], [place] [phone] [employer]: Willy Henson MD Lymphocytes (Bld) [#/Vol] 5.25 10*3/uL High 1.10-3.70 [facility] Comment on above: Performed By: #### C DP, CMPX #### [facility] [address] [place] [address] [employer]: Willy Henson MD Lymphocytes/100 WBC (Bld) 44 % High 24-43 [facility] Comment on above: Performed By: #### C DP, CMPX #### [address] [place], [place] [phone] [employer]: Willy Henson MD MCH (RBC) [Entitic mass] 29.0 pg Normal 25.2-33.5 [facility] Comment on above: Performed By: #### C DP, CMPX #### [address] [place] [employer]: Willy Henson MD MCHC (RBC) [Mass/Vol] 32.3 g/dL Normal 28.4-34.8 [facility] Comment on above: Performed By: #### C DP, CMPX #### [facility] [address] [place] [address] Dr. [place] [employer]: Willy Henson MD MCV (RBC) [Entitic vol] 89.7 fL Normal 82.6-102.9 [facility] Comment on above: Performed By: #### C DP, CMPX #### [address] [place] [address] [employer]: Willy Henson MD Monocytes (Bld) [#/Vol] 0.15 10*3/uL Normal 0.10-1.20 [facility] Comment on above: Performed By: #### C DP, CMPX #### [facility] [address] [place] [employer]: Willy Henson MD Monocytes/100 WBC (Bld) 1 % Low 3-12 [facility] Comment on above: Performed By: #### C DP, CMPX #### [facility] [address] [place], [place] [address] [employer]: Willy Henson MD Neutrophil (Seg) 55 % Normal 36-65 [facility] Comment on above: Performed By: #### C DP, CMPX #### [address] [place] [employer]: Willy Henson MD NRBC Automated 0.0 per 100 WBC Normal 0.0 [facility] Comment on above: Performed By: #### C DP, CMPX #### [address] [place] [employer]: Willy Henson MD Platelet mean volume (Bld) [Entitic vol] 11.0 fL Normal 8.1-13.5 [facility] Comment on above: Performed By: #### C DP, CMPX #### [address] [place] [employer]: Willy Henson MD Platelets (Bld) [#/Vol] 240 10*3/uL Normal 138-453 [facility] Comment on above: Performed By: #### C DP, CMPX #### [address] [place] [employer]: Willy Henson MD RBC (Bld) [#/Vol] 3.97 10*6/uL Normal 3.95-5.11 [facility] Comment on above: Performed By: #### C DP, CMPX #### [facility] [address] [place] [address] Dr. [place], [place] [phone] [employer]: Willy Henson MD WBC (Bld) [#/Vol] 11.9 10*3/uL High 3.5-11.3 [facility] Comment on above: Performed By: #### C DP, CMPX #### [facility] [address] [place], [place] [phone] [employer]: Willy Henson MD Comp Metabolic Pr/rfx MGon 0 - Albumin [Mass/Vol] 3.5 g/dL Normal 3.5-5.2 [facility] Comment on above: Performed By: #### C DP, CMPX #### [facility] [address] [place], [place] [phone] [employer]: Willy Henson MD Albumin/Glob Ratio 1.3 Normal 1.0-2.5 [facility] Comment on above: Performed By: #### C DP, CMPX #### [facility] [address] [place], [place] [phone] [employer]: Willy Henson MD Alkaline Phos 129 U/L High 35-104 [facility] Comment on above: Performed By: #### C DP, CMPX #### [facility] [address] [place] [address] [employer]: Willy Henson MD ALT [Catalytic activity/Vol] 11 U/L Normal 5-33 [facility] Comment on above: Performed By: #### C DP, CMPX #### [facility] [address] [place], [place] [phone] [employer]: Willy Henson MD Anion gap [Moles/Vol] 11 mmol/L Normal 9-17 [facility] Comment on above: Performed By: #### C DP, CMPX #### [facility] [address] [place], [place] [phone] [employer]: Willy Henson MD AST [Catalytic activity/Vol] 15 U/L Normal <32 [facility] Comment on above: Performed By: #### C DP, CMPX #### [facility] [address] [place] [address] [employer]: Willy Henson MD Bilirubin [Mass/Vol] 0.3 mg/dL Normal 0.3-1.2 [facility] Comment on above: Performed By: #### C DP, CMPX #### [facility] [address] [place] [address] [employer]: Willy Henson MD BUN/CRE Ratio 30 High 9-20 [facility] Comment on above: Performed By: #### C DP, CMPX #### [facility] [address] [place], [place] [phone] [employer]: Willy Henson MD Calcium [Mass/Vol] 9.2 mg/dL Normal 8.6-10.4 [facility] Comment on above: Performed By: #### C DP, CMPX #### [facility] [address] [place], [place] [phone] [employer]: Willy Henson MD Chloride [Moles/Vol] 104 mmol/L Normal 98-107 [facility] Comment on above: Performed By: #### C DP, CMPX #### [facility] [address] [place], [place] [phone] [employer]: Willy Henson MD CO2 [Moles/Vol] 23 mmol/L Normal 20-31 [facility] Comment on above: Performed By: #### C DP, CMPX #### [facility] [address] [place] [address] [employer]: Willy Henson MD Creatinine [Mass/Vol] 0.6 mg/dL Normal 0.5-0.9 [facility] Comment on above: Performed By: #### C DP, CMPX #### [facility] [address] [place] [address] [employer]: Willy Henson MD GFR/1.73 sq M.predicted among non-blacks MDRD (S/P/Bld) [Vol rate/Area] mL/min/{1.73_m2} Normal >60 [facility] Comment on above: Result Comment: [...] tubular secretion. Performed By: #### C DP, CMPX #### [facility] [address] [place] [address] [place] [address] [employer]: Willy Henson MD Glucose [Mass/Vol] 142 mg/dL High 70-99 [facility] Comment on above: Performed By: #### C BRITTANY, CMPX #### [facility] [address] [place] [address] [employer]: Willy Henson MD Potassium [Moles/Vol] 4.6 mmol/L Normal 3.7-5.3 [facility] Comment on above: Performed By: #### C DP, CMPX #### [facility] [address] [place] [address] [employer]: Willy Henson MD Protein [Mass/Vol] 6.2 g/dL Low 6.4-8.3 [facility] Comment on above: Performed By: #### C DP, CMPX #### [facility] [address] [place] [address] [employer]: Willy Henson MD Sodium [Moles/Vol] 138 mmol/L Normal 135-144 [facility] Comment on above: Performed By: #### C DP, CMPX #### [facility] [address] [place] [address] [employer]: Willy Henson MD Urea nitrogen [Mass/Vol] 18 mg/dL Normal 8-23 [facility] Comment on above: Performed By: #### C BRITTANY, CMPX #### [facility] [address] [place] [address] [employer]: Willy Henson MD Comprehensive Metabolic Pane l w/ Reflex to on 08-01-2023 Albumin [Mass/Vol] 3.5 g/dL 3.5 - 5.2 g/dL [facility] Albumin/Globulin [Mass ratio] 1.3 {ratio} 1.0 - 2.5 [facility] ALP [Catalytic activity/Vol] 129 U/L High 35 - 104 U/L [facility] ALT [Catalytic activity/Vol] 11 U/L 5 - 33 U/L [facility] Anion gap [Moles/Vol] 11 mmol/L 9 - 17 mmol/L [facility] AST [Catalytic activity/Vol] 15 U/L NINF - 32 U/L [facility] Bilirubin [Mass/Vol] 0.3 mg/dL 0.3 - 1.2 mg/dL [facility] Calcium [Mass/Vol] 9.2 mg/dL 8.6 - 10. 4 mg/dL [facility] Chloride [Moles/Vol] 104 mmol/L 98 - 107 mmol/L [facility] CO2 [Moles/Vol] 23 mmol/L 20 - 31 mmol/L [facility] Creatinine [Mass/Vol] 0.6 mg/dL 0.5 - 0.9 mg/dL [facility] Est, Glom Filt Rate - PINF [facility] Comment on above: These results are not intended for use [...] following therapy that affects renal tubular secretion. Glucose [Mass/Vol] 142 mg/dL High 70 - 99 mg/dL [facility] Interpretation and review of laboratory results Abnormal [facility] Potassium [Moles/Vol] 4.6 mmol/L 3.7 - 5.3 mmol/L [facility] Protein [Mass/Vol] 6.2 g/dL Low 6.4 - 8.3 g/dL [facility] Sodium [Moles/Vol] 138 mmol/L 135 - 144 mmol/L [facility] Urea nitrogen [Mass/Vol] 18 mg/dL 8 - 23 mg/dL [facility] Urea nitrogen/Creatinine [Mass ratio] 30 mg/mg High 9 - 20 [facility] EKG Rhythm Stripon [facility] Basic Metabolic Panelon 07-17 Anion gap [Moles/Vol] 11 mmol/L 9 - 17 mmol/L [facility] Calcium [Mass/Vol] 9.6 mg/dL 8.6 - 10. 4 mg/dL [facility] Chloride [Moles/Vol] 101 mmol/L 98 - 107 mmol/L [facility] CO2 [Moles/Vol] 26 mmol/L 20 - 31 mmol/L [facility] Creatinine [Mass/Vol] 0.7 mg/dL 0.5 - 0.9 mg/dL [facility] Est, Glom Filt Rate 87 - PINF [facility] Comment on above: These results are not intended for use [...] following therapy that affects renal tubular secretion. Glucose [Mass/Vol] 102 mg/dL High 70 - 99 mg/dL [facility] Interpretation and review of laboratory results Abnormal [facility] Potassium [Moles/Vol] 4.5 mmol/L 3.7 - 5.3 mmol/L [facility] Sodium [Moles/Vol] 138 mmol/L 135 - 144 mmol/L [facility] Urea nitrogen [Mass/Vol] 24 mg/dL High 8 - 23 mg/dL [facility] Urea nitrogen/Creatinine [Mass ratio] 34 mg/mg High 9 - 20 [facility] Basic Metabolic Profon 07-30 Anion gap [Moles/Vol] 11 mmol/L Normal 9-17 [facility] Comment on above: Performed By: #### B SKYLAR, CDP #### [facility] [address] [place] [address] [employer]: Willy Henson MD BUN/CRE Ratio 34 High 9- [facility] Comment on above: Performed By: #### B SKYLAR, CDP #### [facility] [address] [place] [address] [employer] Operator: Willy Henson MD Calcium [Mass/Vol] 9.6 mg/dL Normal 8.6-10.4 [facility] Comment on above: Performed By: #### B SKYLAR, CDP #### [facility] [address] [place], [place] [phone] [employer]: Willy Henson MD Chloride [Moles/Vol] 101 mmol/L Normal 98-107 [facility] Comment on above: Performed By: #### B SKYLAR, CDP #### [facility] [address] [place] [address] [employer] Operator: Willy Henson MD CO2 [Moles/Vol] 26 mmol/L Normal 20-31 [facility] Comment on above: Performed By: #### B SKYLAR, CDP #### [facility] [address] [place] [address] [employer]: Willy Henson MD Creatinine [Mass/Vol] 0.7 mg/dL Normal 0.5-0.9 [facility] Comment on above: Performed By: #### B SKYLAR, CDP #### [facility] [address] [place], [place] [phone] [employer]: Willy Henson MD GFR/1.73 sq M.predicted among non-blacks MDRD (S/P/Bld) [Vol rate/Area] 87 mL/min/{1.73_m2} Normal >60 [facility] Comment on above: Result Comment: [...] affects renal tubular secretion. Performed By: #### B SKYLAR, CDP #### [facility] [address] [place], [place] [address]83 [employer]: Willy Henson MD Glucose [Mass/Vol] 102 mg/dL High 70-99 [facility] Comment on above: Performed By: #### B SKYLAR, CDP #### [facility] [address] [place], [place] [phone] [employer]: Willy Henson MD Potassium [Moles/Vol] 4.5 mmol/L Normal 3.7-5.3 [facility] Comment on above: Performed By: #### B SKYLAR, CDP #### [facility] [address] [place], [place] [phone] [employer]: Willy Henson MD Sodium [Moles/Vol] 138 mmol/L Normal 135-144 [facility] Comment on above: Performed By: #### B SKYLAR, CDP #### [facility] [address] [place], [place] [phone] [employer]: Willy Henson MD Urea nitrogen [Mass/Vol] 24 mg/dL High 8-23 [facility] Comment on above: Performed By: #### B MP, CDP #### [facility] [address] [place] [address] [employer]: Willy Henson MD CBC with Auto Differentialon 07-31-2023 Basophils (Bld) [#/Vol] 0.00 10*3/uL [facility] Basophils/100 WBC (Bld) 0 % 0 - 2 % [facility] Eosinophils (Bld) [#/Vol] 0.00 10*3/uL [facility] Eosinophils/100 WBC (Bld) 0 % Low 1 - 4 % [facility] Erythrocyte distribution width (RBC) [Ratio] 12.1 % 11.8 - 14.4 % [facility] Hematocrit (Bld) [Volume fraction] 36.6 % 36.3 - 47.1 % [facility] Hemoglobin (Bld) [Mass/Vol] 11.7 g/dL Low 11.9 - 15.1 g/dL [facility] Immature granulocytes (Bld) [#/Vol] 0.00 10*3/uL [facility] Immature granulocytes/100 WBC (Bld) 0 % 0 [facility] Interpretation and review of laboratory results Abnormal [facility] Lymphocytes/100 WBC (Bld) 49 % High 24 - 43 % [facility] Lymphocytes/100 WBC (Bld) 5.48 % High [facility] MCH (RBC) [Entitic mass] 28.8 pg 25.2 - 33.5 pg [facility] MCHC (RBC) [Mass/Vol] 32.0 g/dL 28.4 - 34.8 g/dL [facility] MCV (RBC) [Entitic vol] 90.1 fL 82.6 - 102.9 fL [facility] Monocytes/100 WBC (Bld) 3 % 3 - 12 % [facility] Monocytes/100 WBC (Bld) 0.34 % [facility] Morphology Ki (Bld) [Interp] Normal [facility] Neutrophils/100 WBC (Bld) 48 % 36 - 65 % [facility] Nucleated RBC/100 WBC (Bld) [Ratio] 0.0 % 0.0 per 100 WBC [facility] Platelet mean volume (Bld) [Entitic vol] 11.0 fL 8.1 - 13.5 fL [facility] Platelets (Bld) [#/Vol] 249 10*3/uL [facility] RBC (Bld) [#/Vol] 4.06 10*6/uL 3.95 - 5.1 1 m/uL [facility] Segmented neutrophils/100 WBC (Bld) 5.38 % [facility] WBC other (Bld) [#/Vol] 11.2 [facility] CBC with Diffon 07-31-2023 Abs. Basophil 0.00 k/uL Normal 0.0-0.2 [facility] Comment on above: Performed By: #### B SKYLAR, CDP #### [address] [place] [id number] [employer] Operator: Willy Henson MD Abs.Imm.Granulocyte 0.00 k/uL Normal 0.00-0.30 [facility] Comment on above: Performed By: #### B SKYLAR, CDP #### [address] [place] [employer] Operator: Willy Henson MD Abs.Neutrophil (Seg) 5.38 k/uL Normal 1.50-8.10 [facility] Comment on above: Performed By: #### B SKYLAR, CDP #### [address] [place] [employer] Operator: Willy Henson MD Basophils/100 WBC (Bld) 0 % Normal 0-2 [facility] Comment on above: Performed By: #### B SKYLAR, CDP #### [address] [place] [employer] Operator: Willy Henson MD Eosinophils (Bld) [#/Vol] 0.00 10*3/uL Normal 0.00-0.44 [facility] Comment on above: Performed By: #### B SKYLAR, CDP #### [facility] [address] [place], [place] [phone] [employer]: Willy Henson MD Eosinophils/100 WBC (Bld) 0 % Low 1-4 [facility] Comment on above: Performed By: #### B MP, CDP #### [facility] [address] [place] [address] [employer]: Willy Henson MD Immature granulocytes/100 WBC (Bld) 0 % Normal 0 [facility] Comment on above: Performed By: #### B SKYLAR, CDP #### [address] [place] [employer]: Willy Henson MD Lymphocytes (Bld) [#/Vol] 5.48 10*3/uL High 1.10-3.70 [facility] [facility] Comment on above: Performed By: #### B SKYLAR, CDP #### [facility] [address] [place] [address] [place] [address] [employer] Machine Operator: Willy Henson MD Lymphocytes/100 WBC (Bld) 49 % High 24-43 [facility] Comment on above: Performed By: #### B SKYLAR, CDP #### [facility] [address] [place] [address] [place] [address] [employer] Operator: Willy Henson MD Monocytes (Bld) [#/Vol] 0.34 10*3/uL Normal 0.10-1.20 [facility] Comment on above: Performed By: #### B MP, CDP #### [facility] [address] [place] [address] [address] [place], [place] [id number] [employer] Operator: Willy Henson MD Monocytes/100 WBC (Bld) 3 % Normal 3-12 [facility] Comment on above: Performed By: #### B MP, CDP #### [facility] [address] [place], [place] [id number] [employer] Operator: Willy Henson MD Morphology Ki (Bld) [Interp] Normal Normal [facility] Comment on above: Performed By: #### B MP, CDP #### [facility] [address] [place], [place] [id number] [employer] Operator: Willy Henson MD Neutrophil (Seg) 48 % Normal 36-65 [facility] Comment on above: Performed By: #### B MP, CDP #### [facility] [address] [place], [place] [id number] [employer] Operator: Willy Henson MD Erythrocyte distribution width (RBC) [Ratio] 12.1 % Normal 11.8-14.4 [facility] Comment on above: Performed By: #### B SKYLAR, CDP #### [address] [place], [place] [id number] [employer] Operator: Willy Henson MD Hematocrit (Bld) [Volume fraction] 36.6 % Normal 36.3-47.1 [facility] Comment on above: Performed By: #### B SKYLAR, CDP #### [address] [place], [place] [id number] [employer] Operator: Willy Henson MD Hemoglobin (Bld) [Mass/Vol] 11.7 g/dL Low 11.9-15.1 [facility] Comment on above: Performed By: #### B MP, CDP #### [address] [place], [place] [phone] [employer] Operator: Willy Henson MD MCH (RBC) [Entitic mass] 28.8 pg Normal 25.2-33.5 [facility] Comment on above: Performed By: #### B SKYLAR, CDP #### [address] [place], [place] [id number] [employer] Operator: Willy Henson MD MCHC (RBC) [Mass/Vol] 32.0 g/dL Normal 28.4-34.8 [facility] Comment on above: Performed By: #### B SKYLAR, CDP #### [address] [place], [place] [id number] [employer] Operator: Willy Henson MD MCV (RBC) [Entitic vol] 90.1 fL Normal 82.6-102.9 [facility] Comment on above: Performed By: #### B MP, CDP #### [address] [place], [place] [id number] [employer] Operator: Willy Henson MD NRBC Automated 0.0 per 100 WBC Normal 0.0 [facility] Comment on above: Performed By: #### B SKYLAR, CDP #### [address] [place], [place] [id number] [employer] Operator: Willy Henson MD Platelet mean volume (Bld) [Entitic vol] 11.0 fL Normal 8.1-13.5 [facility] Comment on above: Performed By: #### B SKYLAR, CDP #### [address] [place], [place] [phone] [employer] Operator: Willy Henson MD Platelets (Bld) [#/Vol] 249 10*3/uL Normal 138-453 [facility] Comment on above: Performed By: #### B SKYLAR, CDP #### [address] [place], [place] [id number] [employer] Operator: Willy Henson MD RBC (Bld) [#/Vol] 4.06 10*6/uL Normal 3.95-5.11 [facility] Comment on above: Performed By: #### B MP, CDP #### [address] [place], [place] [id number] [employer] Operator: Willy Henson MD WBC (Bld) [#/Vol] 11.2 10*3/uL Normal 3.5-11.3 [facility] Comment on above: Performed By: #### B MP, [facility] #### [facility] [address] [place] [address] [employer] Machine Operator: Willy Henson MD CT ABDOMEN PELVIS W IV CONTR Bob 07-31-2023 CT ABDOMEN PELVIS W IV CONTRAST EXAMINATION: CT OF THE ABDOMEN AND PELVIS WITH CONTRAST 07/31/2023 1:54 pm TECHNIQUE: CT of the abdomen and pelvis was performed with the administration of intravenous contrast. Multiplanar reformatted images are provided for review. Automated exposure control, iterative reconstruction, and/or weight based adjustment of the mA/kV was utilized to reduce the radiation dose to as low as reasonably achievable. COMPARISON: None. HISTORY: ORDERING SYSTEM PROVIDED HISTORY: Post op wound infection, ?abscess TECHNOLOGIST PROVIDED HISTORY: Post op wound infection, ?abscess Decision Support Exception - unselect if not a suspected or confirmed emergency medical condition->Emergency Medical Condition (MA) FINDINGS: Lower Chest: No significant abnormalities. Left lower lobe calcific granuloma seen. Organs: Liver: Liver is normal. No focal lesions are seen. Spleen: Normal. Pancreas: Normal Gallbladder: Gallbladder is surgically absent with expected prominence of CBD.. Adrenal glands: Normal. No focal lesions are seen. Kidneys and ureters: Normal There is no hydronephrosis or calculi. Ureters are non-dilated. Abdominal aorta and branches: Normal in caliber. IVC and portal vein: Normal in caliber. GI/Bowel: Bowel loops are normal in wall-thickness and caliber. Scattered left-sided colonic diverticulosis is seen. No evidence of appendicitis. Peritoneum/Retroperit oneum: Normal PELVIS There is evidence of septated uterus. Enhancing finding at along the right lateral aspect of the uterus measures 2.2 cm, likely a fibroid. Bones/Soft Tissues: Degenerative changes are seen in the lumbar spine. No lytic or blastic lesions are seen. there is generalized body wall edema. There is seen periumbilical rim enhancing collection measuring 3.7 x 3.6 x 4.0 cm with surrounding soft tissue swelling. IMPRESSION: 1. Periumbilical rim enhancing collection measuring 3.7 x 3.6 x 4.0 cm with surrounding soft tissue swelling. 2. Septated uterus with probable fibroid. 3. Generalized body wall edema. 4. Left-sided colonic diverticulosis. Interpreted by: Chato Bell MD Signed by: Chato Bell MD 07/31/23 Final result Normal [facility] CT Abdomen and Pelvis W oralia Hernandez 07-31-2023 1. Periumbilical rim enhancing collection measuring 3.7 x 3.6 x 4.0 cm with surrounding soft tissue swelling. 2. Septated uterus with probable fibroid. 3. Generalized body wall edema. 4. Left-sided colonic diverticulosis. [facility] EXAMINATION: CT OF THE ABDOMEN AND PELVIS WITH CONTRAST 07/31/2023 1:54 pm TECHNIQUE: CT of the abdomen and pelvis was performed with the administration of intravenous contrast. Multiplanar reformatted images are provided for review. Automated exposure control, iterative reconstruction, and/or weight based adjustment of the mA/kV was utilized to reduce the radiation dose to as low as reasonably achievable. COMPARISON: None. HISTORY: ORDERING SYSTEM PROVIDED HISTORY: Post op wound infection, ?abscess TECHNOLOGIST PROVIDED HISTORY: Post op wound infection, ?abscess Decision Support Exception - unselect if not a suspected or confirmed emergency medical condition->Emergency Medical Condition (MA) FINDINGS: Lower Chest: No significant abnormalities. Left lower lobe calcific granuloma seen. Organs: Liver: Liver is normal. No focal lesions are seen. Spleen: Normal. Pancreas: Normal Gallbladder: Gallbladder is surgically absent with expected prominence of CBD.. Adrenal glands: Normal. No focal lesions are seen. Kidneys and ureters: Normal There is no hydronephrosis or calculi. Ureters are non-dilated. Abdominal aorta and branches: Normal in caliber. IVC and portal vein: Normal in caliber. GI/Bowel: Bowel loops are normal in wall-thickness and caliber. Scattered left-sided colonic diverticulosis is seen. No evidence of appendicitis. Peritoneum/Retroperit oneum: Normal PELVIS There is evidence of septated uterus. Enhancing finding at along the right lateral aspect of the uterus measures 2.2 cm, likely a fibroid. Bones/Soft Tissues: Degenerative changes are seen in the lumbar spine. No lytic or blastic lesions are seen. there is generalized body wall edema. There is seen periumbilical rim enhancing collection measuring 3.7 x 3.6 x 4.0 cm with surrounding soft tissue swelling. MHPN RIS Chato Lazo MD - 07/31/2023 EXAMINATION: CT OF THE ABDOMEN AND PELVIS WITH CONTRAST 07/31/2023 1:54 pm TECHNIQUE: CT of the abdomen and pelvis was performed with the administration of intravenous contrast. Multiplanar reformatted images are provided for review. Automated exposure control, iterative reconstruction, and/or weight based adjustment of the mA/kV was utilized to reduce the radiation dose to as low as reasonably achievable. COMPARISON: None. HISTORY: ORDERING SYSTEM PROVIDED HISTORY: Post op wound infection, ?abscess TECHNOLOGIST PROVIDED HISTORY: Post op wound infection, ?abscess Decision Support Exception - unselect if not a suspected or confirmed emergency medical condition->Emergency Medical Condition (MA) FINDINGS: Lower Chest: No significant abnormalities. Left lower lobe calcific granuloma seen. Organs: Liver: Liver is normal. No focal lesions are seen. Spleen: Normal. Pancreas: Normal Gallbladder: Gallbladder is surgically absent with expected prominence of CBD.. Adrenal glands: Normal. No focal lesions are seen. Kidneys and ureters: Normal There is no hydronephrosis or calculi. Ureters are non-dilated. Abdominal aorta and branches: Normal in caliber. IVC and portal vein: Normal in caliber. GI/Bowel: Bowel loops are normal in wall-thickness and caliber. Scattered left-sided colonic diverticulosis is seen. No evidence of appendicitis. Peritoneum/Retroperit oneum: Normal PELVIS There is evidence of septated uterus. Enhancing finding at along the right lateral aspect of the uterus measures 2.2 cm, likely a fibroid. Bones/Soft Tissues: Degenerative changes are seen in the lumbar spine. No lytic or blastic lesions are seen. there is generalized body wall edema. There is seen periumbilical rim enhancing collection measuring 3.7 x 3.6 x 4.0 cm with surrounding soft tissue swelling. IMPRESSION: 1. Periumbilical rim enhancing collection measuring 3.7 x 3.6 x 4.0 cm with surrounding soft tissue swelling. 2. Septated uterus with probable fibroid. 3. Generalized body wall edema. 4. Left-sided colonic diverticulosis. [facility] Radiology Study observation (narrative) [facility] CT Abdomen and Pelvis W cont rast IVOrdered By: Chato Bell on 07-31-2023 [facility] Work Phone: Ambulatory Visit Summaryon 0 07-26-2023 Ambulatory Visit Summary MICHEAL BRICE :1940 Visit Date:07/26/2023 Ambulatory Visit Instructions Your Diagnosis Surgical wound infection S/P umbilical hernia repair, follow-up exam BMI 34.0-34.9,adult Non-smoker Your Care Team Attending Physician - Camila Max Primary Care Physician - Camila Max This Is Your Medications List amlodipine (amLODIPine 5 mg Tab) cephalexin (Keflex 500 mg Cap) lactobacillus acidophilus (Acidophilus Probiotic Blend) terbinafine topical (Lamisil AT 1% Cream) triamcinolone topical (triamcinolone Top 0.1% Crm 15 gram) Procedures Performed Cholecystectomy (2023), Ankle, Bowel, Cataract, Finger, Knee replacement, Stomach. Discharge Vitals Heart Rate (Peripheral) 80 Respiratory Rate 18 Blood Pressure 124/74 Height 158.0 cm Height 62 in Weight 86.0 kg Weight 189.2 lb BMI 34.45 What to do next Scheduled Follow-Up Appointments Sunday 1:00 PM EST Where: [facility] Family [facility] Normal [facility] Family Medicine Office/Clini c Noteon 07-26-2023 Family Medicine Office/Clinic Note HPI Staff Micheal is an 83 year old female presenting for TCM follow up TCM: Hospital: [facility] Admission date: 07/17/23 Discharge date: 07/18/23 Symptoms the patient presented with: Pt had surgery on hernia Current concerns: pt denies being nauseated states feeling good just sore. History of Present Illness pt presents today for follow up on hernia repair Review of Systems PHQ Score Initial Depression Screen Score: 0 SCORE Physical Exam Vitals & Measurements HR: 80(Peripheral) RR: 18 BP: 124/74 SpO2: 94% HT: 62 in HT: 158.0 cm WT: 86.0 kg WT: 189.2 lb BMI: 34.45 General: alert, no acute distress ENMT: oral mucosa moist, no pharyngeal erythema or exudate Cardiovascular: regular rate and rhythm, normal peripheral perfusion Respiratory: Lungs CTA, respirations non labored Extremities: no deformity, no trauma Neurological: oriented x 4, LOC appropriate for age, CN II-XII intact, motor strength equal & normal bilaterally, speech normal Assessment/Plan 1. S/P umbilical hernia repair, follow-up exam (Z09: Encounter for follow-up examination after completed treatment for conditions other than malignant neoplasm) pt had richters hernia repaired. steri strips intact. area around surgical site is red and warm to touch. pt encouraged to go to ER if she gets a fever or severe pain. also instructed her to contact surgeon so they are aware we started her on antibiotics today. Ordered: cephalexin, 500 mg = 1 cap(s), Oral, TID, X 10 day(s), # 30 cap(s), Refills(s) 0, Pharmacy: [facility] #[id number], 158, cm, 07/26/23 10:49:00 EDT, Height/Length Dosing, 86, kg, 07/26/23 10:49:00 EDT, Weight Dosing 2. Surgical wound infection (T81.49XA: Infection following a procedure, other surgical site, initial encounter) skin around surgical site is red and warm to touch. Ordered: cephalexin, 500 mg = 1 cap(s), Oral, TID, X 10 day(s), # 30 cap(s), Refills(s) 0, Pharmacy: [facility] #[id number], 158, cm, 07/26/23 10:49:00 EDT, Height/Length Dosing, 86, kg, 07/26/23 10:49:00 EDT, Weight Dosing 3. BMI 34.0-34.9,adult (Z68.34: Body mass index [BMI] 34.0-34.9, adult) BMI education complete Ordered: cephalexin, 500 mg = 1 cap(s), Oral, TID, X 10 day(s), # 30 cap(s), Refills(s) 0, Pharmacy: [facility] #[id number], 158, cm, 07/26/23 10:49:00 EDT, Height/Length Dosing, 86, kg, 07/26/23 10:49:00 EDT, Weight Dosing 4. Non-smoker (Z78.9: Other specified health status) continue not smoking Ordered: cephalexin, 500 mg = 1 cap(s), Oral, TID, X 10 day(s), # 30 cap(s), Refills(s) 0, Pharmacy: [facility] #[id number], 158, cm, 07/26/23 10:49:00 EDT, Height/Length Dosing, 86, kg, 07/26/23 10:49:00 EDT, Weight Dosing Follow-up No qualifying data available Problem List/Past Medical History Ongoing BMI 36.0-36.9,adult Cerumen impaction Hypertension Lipoma of back Rash S/P cholecystectomy S/P umbilical hernia repair, follow-up exam Spider bite Surgical wound infection Historical No qualifying data Procedure/Surgical History Cholecystectomy (2023), Ankle, Bowel, Cataract, Finger, Knee replacement, Stomach. Medications Acidophilus Probiotic Blend, 1 cap(s), Oral, BID amLODIPine 5 mg Tab, 5 mg= 1 tab(s), Oral, Daily, 3 refills Keflex 500 mg Cap, 500 mg= 1 cap(s), Oral, TID Lamisil AT 1% Cream, 1 ashwini, Topical, BID triamcinolone Top 0.1% Crm 15 gram, 1 ashwini, Topical, TID Allergies No Known Allergies Social History Alcohol - Denies Alcohol Use, 04/04/2023 Tobacco - Denies Tobacco Use, 04/04/2023 Never (less than 100 in lifetime) Tobacco Use:. Never Smokeless Tobacco Use:. Household tobacco concerns: No., 07/26/2023 Family History CABG - Coronary artery bypass graft: Negative: Mother, Father, Sister and Brother. Diabetes mellitus type 2: Sister. Open heart surgery: Mother. Immunizations Vaccine Date Status diphtheria/pertussis, acel/tetanus adult 08/07/2013 Recorded tetanus-diphtheria toxoids 03/19/2004 Recorded Normal [facility] Comment on above: Result Comment: Elec tronically Signed By: Camila Max\.br\Date and Time Signed: 07/26/23 11:08 EDT Auth for Release of Medical Recordson 07-24-2023 Auth for Release of Medical Records [id number] Normal [facility] Population Healthon 07-19-19 Population Health Case Information Case Priority: None Programs: -- Referral Source: [employer] Sales Representative Referral Reason: Care coordination Case Type: Transition Care Management Risk Score: -- Case Status: Enrolled (June 27, 2023) Date Assigned: June 26, 2023 Assigned By: Steve Nair Date Enrolled: June 27, 2023 Assigned Primary Personnel: Steve Nair Assigned Secondary Personnel: -- Case Physician: Camila Max Problems Ongoing BMI 36.0-36.9,adult Cerumen impaction Hypertension Lipoma of back Rash S/P cholecystectomy Spider bite Historical No qualifying data Procedure/Surgical History Cholecystectomy (2023), Ankle, Bowel, Cataract, Finger, Knee replacement, Stomach. Home Medications Acidophilus Probiotic Blend, 1 cap(s), Oral, BID amLODIPine 5 mg Tab, 5 mg= 1 tab(s), Oral, Daily, 3 refills Lamisil AT 1% Cream, 1 ashwini, Topical, BID triamcinolone Top 0.1% Crm 15 gram, 1 ashwini, Topical, TID Allergies No Known Allergies Social History Alcohol - Denies Alcohol Use, 04/04/2023 Tobacco - Denies Tobacco Use, 04/04/2023 Never (less than 100 in lifetime) Tobacco Use:. Never Smokeless Tobacco Use:. Household tobacco concerns: No., 06/27/2023 Family History CABG - Coronary artery bypass graft: Negative: Mother, Father, Sister and Brother. Diabetes mellitus type 2: Sister. Open heart surgery: Mother. Screenings and Assessments 06/27/23 09:30:00 Result Name Value Comment Phone Call Monitoring Consent Agreed to continue call Phone Verification Patient Information Full name, street address and date of verified Program Enrollment Provides verbal consent for enrollment Goals and Interventions Care Plan Progress Note TCM#4- Spoke with patient. States she is doing 'really good.' States she is even walking better. Patient states she had an elective sx with Dr. Olea to repair her navel incision 07/17. Patient states her dressing remains intact. Visibly there is no drainage/discharge. Patient denies any pain. Patient states she will be able to change her dressing on Sunday. Patient states she is eating and drinking good. No change in sleep pattern. No issues or concerns with bowel or /24 at 1045bladder. Patient aware of final TCM call. Patient has follow up with Alexandro Carlos 07/25 at 1040. Patient denies any further questions or concerns. Communication Events Date: July 19, 2023 Method: Phone call Type: Outbound Duration (min): 3 Outcome: Case discussion Contact Type: recovery coordinator Contact Name: Steve Nair Notes: TCM#4- see tcm note. Created By: Steve Nair Date: July 11, 2023 Method: Phone call Type: Outbound Duration (min): 9 Outcome: Case discussion Contact Type: recovery coordinator Contact Name: Steve Nair Notes: TCM#3- see tcm note. Created By: Steve Nair Date: July 04, 2023 Method: Phone call Type: Outbound Duration (min): 8 Outcome: Case discussion Contact Type: recovery coordinator Contact Name: Steve Nair Notes: TCM#2- see tcm note. Created By: Steve Nair Date: June 26, 2023 Method: Phone call Type: Outbound Duration (min): 6 Outcome: Case discussion Contact Type: recovery coordinator Contact Name: Steve Nair Notes: TCM#1-see tcm note. Created By: Steve Nair Date: June 26, 2023 Method: Phone call Type: Outbound Duration (min): 1 Outcome: Left message-voicemail Contact Type: recovery coordinator Contact Name: Steve Nair Notes: TCM#1- LM on for return call. Created By: Steve Nair [facility] CBC with Auto Differentialon 07-18-2023 Basophils (Bld) [#/Vol] [facility] Basophils/100 WBC (Bld) 0 % 0 - 2 % [facility] Eosinophils (Bld) [#/Vol] 0.06 10*3/uL [facility] Eosinophils/100 WBC (Bld) 1 % 1 - 4 % [facility] Erythrocyte distribution width (RBC) [Ratio] 12.5 % 11.8 - 14.4 % [facility] Hematocrit (Bld) [Volume fraction] 33.5 % Low 36.3 - 47.1 % [facility] Hemoglobin (Bld) [Mass/Vol] 10.7 g/dL Low 11.9 - 15.1 g/dL [facility] Immature granulocytes (Bld) [#/Vol] 0.04 10*3/uL [facility] Immature granulocytes/100 WBC (Bld) 0 % 0 [facility] Interpretation and review of laboratory results Abnormal [facility] Lymphocytes/100 WBC (Bld) 40 % 24 - 43 % [facility] Lymphocytes/100 WBC (Bld) 4.64 % High [facility] MCH (RBC) [Entitic mass] 28.8 pg 25.2 - 33.5 pg [facility] MCHC (RBC) [Mass/Vol] 31.9 g/dL 28.4 - 34.8 g/dL [facility] MCV (RBC) [Entitic vol] 90.3 fL 82.6 - 102.9 fL [facility] Monocytes/100 WBC (Bld) 8 % 3 - 12 % [facility] Monocytes/100 WBC (Bld) 0.88 % [facility] Neutrophils/100 WBC (Bld) 52 % 36 - 65 % [facility] Nucleated RBC/100 WBC (Bld) [Ratio] 0.0 % 0.0 per 100 WBC [facility] Platelet, Fluorescence 137 Low [facility] Platelets (Bld) [#/Vol] See Reflexed IPF Result [facility] Platelets reticulated/100 platelets Auto (Bld) 4.3 % 1.1 - 10.3 % [facility] RBC (Bld) [#/Vol] 3.71 10*6/uL Low 3.95 - 5.1 1 m/uL [facility] Segmented neutrophils/100 WBC (Bld) 5.99 % [facility] WBC other (Bld) [#/Vol] 11.6 High [facility] CBC with Diffon 07-18-2023 Platelet, Fluoresc. 137 k/uL Low 138-453 [facility] Comment on above: Performed By: #### C P, CDP #### [facility] [address] [place] [address] [employer] Machine Operator: Willy Henson MD PLT, Immature Fract. 4.3 % Normal 1.1-10.3 [facility] Comment on above: Performed By: #### C P, CDP #### [facility] [address] [place] [address] Dr[address] [place], [place] [address] [employer] Machine Operator: Willy Henson MD Abs. Basophil <0.03 Normal 0.00-0.20 [facility] Comment on above: Performed By: #### C P, CDP #### [address] [place], [place] [address] [employer] Machine Operator: Willy Henson MD Abs.Imm.Granulocyte 0.04 k/uL Normal 0.00-0.30 [facility] Comment on above: Performed By: #### C P, CDP #### [address] [place] [address] [employer] Machine Operator: Willy Henson MD Abs.Neutrophil (Seg) 5.99 k/uL Normal 1.50-8.10 [facility] Comment on above: Performed By: #### C P, CDP #### [address] [place], [place] [address] [employer] Operator: Willy Henson MD Basophils/100 WBC (Bld) 0 % Normal 0-2 [facility] Comment on above: Performed By: #### C P, CDP #### [address] [place] [address] [employer] Machine Operator: Willy Henson MD Eosinophils (Bld) [#/Vol] 0.06 10*3/uL Normal 0.00-0.44 [facility] Comment on above: Performed By: #### C P, CDP #### [address] [place], [facility] [employer] Operator: Willy Henson MD Eosinophils/100 WBC (Bld) 1 % Normal 1-4 [facility] Comment on above: Performed By: #### C P, CDP #### [address] [place], [facility] [employer] Operator: Willy Henson MD Erythrocyte distribution width (RBC) [Ratio] 12.5 % Normal 11.8-14.4 [facility] Comment on above: Performed By: #### C P, CDP #### [address] [place], [place] [id number] [employer] Operator: Willy Henson MD Hematocrit (Bld) [Volume fraction] 33.5 % Low 36.3-47.1 [facility] Comment on above: Performed By: #### C P, CDP #### [address] [place] [address] [employer] Operator: Willy Henson MD Hemoglobin (Bld) [Mass/Vol] 10.7 g/dL Low 11.9-15.1 [facility] Comment on above: Performed By: #### C P, CDP #### [address] [place] [place] [facility] [employer] Operator: Willy Henson MD Immature granulocytes/100 WBC (Bld) 0 % Normal 0 [facility] Comment on above: Performed By: #### C P, CDP #### [address] [place] [place] [facility] [employer] Operator: Willy Henson MD Lymphocytes (Bld) [#/Vol] 4.64 10*3/uL High 1.10-3.70 [facility] Comment on above: Performed By: #### C P, CDP #### [address] [place] [place] [facility] [employer] Operator: Willy Henson MD Lymphocytes/100 WBC (Bld) 40 % Normal 24-43 [facility] Comment on above: Performed By: #### C P, CDP #### [address] [place] [place] [facility] [employer] Operator: Willy Henson MD MCH (RBC) [Entitic mass] 28.8 pg Normal 25.2-33.5 [facility] Comment on above: Performed By: #### C P, CDP #### [facility] [address] [place], [place] [id number] [employer] Operator: Willy Henson MD MCHC (RBC) [Mass/Vol] 31.9 g/dL Normal 28.4-34.8 [facility] Comment on above: Performed By: #### C P, CDP #### [facility] [address] [place] [address] [employer] Operator: Willy Henson MD MCV (RBC) [Entitic vol] 90.3 fL Normal 82.6-102.9 [facility] Comment on above: Performed By: #### C P, CDP #### [address] [place] [address] [employer] Operator: Willy Henson MD Monocytes (Bld) [#/Vol] 0.88 10*3/uL Normal 0.10-1.20 [facility] Comment on above: Performed By: #### C P, CDP #### [address] [place] [address] [employer] Operator: Willy Henson MD Monocytes/100 WBC (Bld) 8 % Normal 3-12 [facility] Comment on above: Performed By: #### C P, CDP #### [facility] [address] [place] [address] [employer] Operator: Willy Henson MD Neutrophil (Seg) 52 % Normal 36-65 [facility] Comment on above: Performed By: #### C P, CDP #### [facility] [address] [place] [address] [employer] Operator: Willy Henson MD NRBC Automated 0.0 per 100 WBC Normal 0.0 [facility] Comment on above: Performed By: #### C P, CDP #### [facility] [address] [place], [place] [id number] [employer] Operator: Willy Henson MD Platelet Count See Reflexed IPF Result Normal 138-453 [facility] Comment on above: Performed By: #### C P, CDP #### [facility] [address] [place], [place] [id number] [employer] Operator: Willy Henson MD RBC (Bld) [#/Vol] 3.71 10*6/uL Low 3.95-5.11 [facility] Comment on above: Performed By: #### C P, CDP #### [facility] [address] [place] [address] [employer] Operator: Willy Henson MD WBC (Bld) [#/Vol] 11.6 10*3/uL High 3.5-11.3 [facility] Comment on above: Performed By: #### C P, CDP #### [facility] [address] [place], [place] [id number] [employer] Operator: Willy Henson MD Comp Metabolic Profon 2023 Albumin [Mass/Vol] 3.5 g/dL Normal 3.5-5.2 [facility] Comment on above: Performed By: #### C P, CDP #### [facility] [address] [place], [place] [id number] [employer] Operator: Willy Henson MD Albumin/Glob Ratio 1.8 Normal 1.0-2.5 [facility] Comment on above: Performed By: #### C P, CDP #### [facility] [address] [place], [place] [id number] [employer] Operator: Willy Henson MD Alkaline Phos 85 U/L Normal 35-104 [facility] Comment on above: Performed By: #### C P, CDP #### [facility] [address] [place], [place] [id number] [employer] Operator: Willy Henson MD ALT [Catalytic activity/Vol] 17 U/L Normal 5-33 [facility] Comment on above: Performed By: #### C P, CDP #### [facility] [address] [place], [place] [id number] [employer] Operator: Willy Henson MD Anion gap [Moles/Vol] 6 mmol/L Low 9-17 [facility] Comment on above: Performed By: #### C P, CDP #### [facility] [address] [place], [place] [id number] [employer] Operator: Willy Henson MD AST [Catalytic activity/Vol] 16 U/L Normal <32 [facility] Comment on above: Performed By: #### C P, CDP #### [facility] [address] [place], [place] [id number] [employer] Operator: Willy Henson MD Bilirubin [Mass/Vol] 0.5 mg/dL Normal 0.3-1.2 [facility] Comment on above: Performed By: #### C P, CDP #### [facility] [address] [place], [place] [id number] [employer] Operator: Willy Henson MD BUN/CRE Ratio 18 Normal 9-20 [facility] Comment on above: Performed By: #### C P, CDP #### [facility] [address] [place], [place] [phone] [employer] Operator: Willy Henson MD Calcium [Mass/Vol] 8.6 mg/dL Normal 8.6-10.4 [facility] Comment on above: Performed By: #### C P, CDP #### [facility] [address] [place] [address] Dr[place], [place] [id number] [employer] Operator: Willy Henson MD Chloride [Moles/Vol] 108 mmol/L High 98-107 [facility] Comment on above: Performed By: #### C P, CDP #### [facility] [address] [place] [address] [employer] Operator: Willy Henson MD CO2 [Moles/Vol] 24 mmol/L Normal 20-31 [facility] Comment on above: Performed By: #### C P, CDP #### [facility] [address] [place] [address] [employer] Operator: Willy Henson MD Creatinine [Mass/Vol] 0.6 mg/dL Normal 0.5-0.9 [facility] Comment on above: Performed By: #### C P, CDP #### [facility] [address] [place] [address] [employer] Operator: Willy Henson MD GFR/1.73 sq M.predicted among non-blacks MDRD (S/P/Bld) [Vol rate/Area] mL/min/{1.73_m2} Normal >60 [facility] Comment on above: Result Comment: [...] renal tubular secretion. Performed By: #### C P, CDP #### [facility] [address] [place] [address] [employer] Operator: Willy Henson MD Glucose [Mass/Vol] 135 mg/dL High 70-99 [facility] Comment on above: Performed By: #### C P, CDP #### [facility] [address] [place] [address] [employer] Operator: Willy Henson MD Potassium [Moles/Vol] 4.4 mmol/L Normal 3.7-5.3 [facility] Comment on above: Performed By: #### C P, CDP #### [facility] [address] [place] [address] [employer] Operator: Willy Henson MD Protein [Mass/Vol] 5.4 g/dL Low 6.4-8.3 [facility] Comment on above: Performed By: #### C P, CDP #### [facility] [address] [place] [address] [employer] Operator: Willy Henson MD Sodium [Moles/Vol] 138 mmol/L Normal 135-144 [facility] Comment on above: Performed By: #### C P, CDP #### [facility] [address] [place] [address] [employer] Operator: Willy Henson MD Urea nitrogen [Mass/Vol] 11 mg/dL Normal 8-23 [facility] Comment on above: Performed By: #### C P, CDP #### [facility] [address] [place] [address] [employer] Operator: Willy Henson MD Comprehensive Metabolic Pane [facility] 07-18-2023 Albumin [Mass/Vol] 3.5 g/dL 3.5 - 5.2 g/dL [facility] Albumin/Globulin [Mass ratio] 1.8 {ratio} 1.0 - 2.5 [facility] ALP [Catalytic activity/Vol] 85 U/L 35 - 104 U/L [facility] ALT [Catalytic activity/Vol] 17 U/L 5 - 33 U/L [facility] Anion gap [Moles/Vol] 6 mmol/L Low 9 - 17 mmol/L [facility] AST [Catalytic activity/Vol] 16 U/L NINF - 32 U/L [facility] Bilirubin [Mass/Vol] 0.5 mg/dL 0.3 - 1.2 mg/dL [facility] Calcium [Mass/Vol] 8.6 mg/dL 8.6 - 10. 4 mg/dL [facility] Chloride [Moles/Vol] 108 mmol/L High 98 - 107 mmol/L [facility] CO2 [Moles/Vol] 24 mmol/L 20 - 31 mmol/L [facility] Creatinine [Mass/Vol] 0.6 mg/dL 0.5 - 0.9 mg/dL [facility] Est, Taz Roberts Rate - PINF [facility] Comment on above: These results are not intended for use [...] following therapy that affects renal tubular secretion. Glucose [Mass/Vol] 135 mg/dL High 70 - 99 mg/dL [facility] Interpretation and review of laboratory results Abnormal [facility] Potassium [Moles/Vol] 4.4 mmol/L 3.7 - 5.3 mmol/L [facility] Protein [Mass/Vol] 5.4 g/dL Low 6.4 - 8.3 g/dL [facility] Sodium [Moles/Vol] 138 mmol/L 135 - 144 mmol/L [facility] Urea nitrogen [Mass/Vol] 11 mg/dL 8 - 23 mg/dL [facility] Urea nitrogen/Creatinine [Mass ratio] 18 mg/mg 9 - 20 [facility] Surgical Pathology Reporton 07-17-2023 Surgical Pathology Report (NOTE) Path Number: [id number] -- Diagnosis -- UMBILICAL TISSUE/HERNIA, REPAIR:-FIBROMEMBRANE OUS 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 Yamilka Avendaño Electronically Signed Out /07/19/2023 Clinical Information Pre-Op Diagnosis: WOUND DEHISCENCE Operative Findings: UMBILICAL TISSUE Operation Performed: HERNIA UMBILICAL REPAIR REVISION UMBILICAL INCISION, KRISHNAMURTHY HERNIA REPAIR WITH TRANSVERSE COLON ANASTOMOSIS gill Source of Specimen A: UMBILICAL TISSUE Gross Description MICHEAL YUNIEL, UMBILICAL TISSUE Received in formalin are multiple yellow, lobulated to castillo-pink, fibromembranous tissue fragments aggregating 3.6 x 3.5 x 2.5 cm. No lesions are identified. Office Machine Servicer sections 1c. tm Nimco Villalobos/mj:07/18/2023 Microscopic Description Microscopic examination performed. Processing Lab: [address] [address] Interpretation Performed at [address] [address] SURGICAL PATHOLOGY CONSULTATION Patient Name: MICHEAL BRICE [facility] Rec: [id number] [facility] [address] [place], [place] [address] [facility] [place] [facility] Case Information Case Priority: None Programs: -- Referral Source: [employer] Sales Representative Referral Reason: Care coordination Case Type: Transition Care Management Risk Score: -- Case Status: Enrolled (June 27, 2023) Date Assigned: June 26, 2023 Assigned By: Steve Nair Date Enrolled: June 27, 2023 Assigned Primary Personnel: Steve Nair Assigned Secondary Personnel: -- Case Physician: Camila Max Problems Ongoing BMI 36.0-36.9,adult Cerumen impaction Hypertension Lipoma of back Rash S/P cholecystectomy Spider bite Historical No qualifying data Procedure/Surgical History Cholecystectomy (2023), Ankle, Bowel, Cataract, Finger, Knee replacement, Stomach. Home Medications Acidophilus Probiotic Blend, 1 cap(s), Oral, BID amLODIPine 5 mg Tab, 5 mg= 1 tab(s), Oral, Daily, 3 refills Lamisil AT 1% Cream, 1 ashwini, Topical, BID triamcinolone Top 0.1% Crm 15 gram, 1 ashwini, Topical, TID Allergies No Known Allergies Social History Alcohol - Denies Alcohol Use, 04/04/2023 Tobacco - Denies Tobacco Use, 04/04/2023 Never (less than 100 in lifetime) Tobacco Use:. Never Smokeless Tobacco Use:. Household tobacco concerns: No., 06/27/2023 Family History CABG - Coronary artery bypass graft: Negative: Mother, Father, Sister and Brother. Diabetes mellitus type 2: Sister. Open heart surgery: Mother. Screenings and Assessments 06/27/23 09:30:00 Result Name Value Comment Phone Call Monitoring Consent Agreed to continue call Phone Verification Patient Information Full name, street address and date of verified CM Program Enrollment Provides verbal consent for enrollment Goals and Interventions Care Plan Progress Note TCM#- Spoke with patient states she is doing okay. Patient notes she has an appointment in [place] today at 1500 with GS, Dr. Olea. Patient states last appointment went well, however drainage from naval area continues at times. Patient notes it seeps. Patient adds area hurts when she bends over and she feels a warming sensation. Patient has another follow up today at 1500. Patient is not on ATB. Patient will call office to arrange PCP follow up if needed. Patient notes her mobility has been good. Patient states she mows the lawn and clean up the yard without issues. CN suggested to patient be sure waistline of clothing is not rubbing on area especially when being more active. Patient verbalized understanding. Patient states she is eating and drinking good. No change in sleep pattern. Patient denies any further questions or concerns. Communication Events Date: July 11, 2023 Method: Phone call Type: Outbound Duration (min): 9 Outcome: Case discussion Contact Type: recovery coordinator Contact Name: Steve Nair Notes: BILL#3- see tcm note. Created By: Steve Nair Date: July 04, 2023 Method: Phone call Type: Outbound Duration (min): 8 Outcome: Case discussion Contact Type: recovery coordinator Contact Name: Steve Nair Notes: BILL#2- see tcm note. Created By: Steve Nair Date: June 26, 2023 Method: Phone call Type: Outbound Duration (min): 6 Outcome: Case discussion Contact Type: recovery coordinator Contact Name: Steve Nair Notes: TCM#1-see tcm note. Created By: Steve Nair Date: June 26, 2023 Method: Phone call Type: Outbound Duration (min): 1 Outcome: Left message-voicemail Contact Type: recovery coordinator Contact Name: Steve Nair Notes: TCM#1- LM on for return call. Created By: Steve Nair [facility] 07-04-19 [facility] Case Information Case Priority: None Programs: -- Referral Source: [employer] Sales Representative Referral Reason: Care coordination Case Type: Transition Care Management Risk Score: -- Case Status: Enrolled (June 27, 2023) Date Assigned: June 26, 2023 Assigned By: Steve Nair Date Enrolled: June 27, 2023 Assigned Primary Personnel: Steve Nair Assigned Secondary Personnel: -- Case Physician: Camila Max Problems Ongoing BMI 36.0-36.9,adult Cerumen impaction Hypertension Lipoma of back Rash S/P cholecystectomy Spider bite Historical No qualifying data Procedure/Surgical History Cholecystectomy (2023), Ankle, Bowel, Cataract, Finger, Knee replacement, Stomach. Home Medications Acidophilus Probiotic Blend, 1 cap(s), Oral, BID amLODIPine 5 mg Tab, 5 mg= 1 tab(s), Oral, Daily, 3 refills Lamisil AT 1% Cream, 1 ashwini, Topical, BID triamcinolone Top 0.1% Crm 15 gram, 1 ashwini, Topical, TID Allergies No Known Allergies Social History Alcohol - Denies Alcohol Use, 04/04/2023 Tobacco - Denies Tobacco Use, 04/04/2023 Never (less than 100 in lifetime) Tobacco Use:. Never Smokeless Tobacco Use:. Household tobacco concerns: No., 06/27/2023 Family History CABG - Coronary artery bypass graft: Negative: Mother, Father, Sister and Brother. Diabetes mellitus type 2: Sister. Open heart surgery: Mother. Screenings and Assessments 06/27/23 09:30:00 Result Name Value Comment Phone Call Monitoring Consent Agreed to continue call Phone Verification Patient Information Full name, street address and date of verified CM Program Enrollment Provides verbal consent for enrollment Goals and Interventions Care Plan Progress Note TCM#2- Patient states she is doing pretty good. Reports she is eating okay and drinking plenty of water. Notes she has been easing back into walking and eager to get on the bike. Patient has an appointment with Dr. Olea, general surgeon, today in [place]. She reports her belly button is red and warm to touch. Patient denies any pain. Notes a yellowish bloody discharge. She is going to discuss with at OV, will contact PCP office if anything further needed. Patient states she is sleeping 'really good.' Patient denies any bowel or urinary system issues. States she is 'back to normal.' Patient denies any further questions or concerns. Communication Events Date: July 04, 2023 Method: Phone call Type: Outbound Duration (min): 8 Outcome: Case discussion Contact Type: recovery coordinator Contact Name: Steve Nair Notes: TCM#2- see tcm note. Created By: Steve Nair Date: June 26, 2023 Method: Phone call Type: Outbound Duration (min): 6 Outcome: Case discussion Contact Type: recovery coordinator Contact Name: Steve Nair Notes: TCM#1-see tcm note. Created By: Steve Nair Date: June 26, 2023 Method: Phone call Type: Outbound Duration (min): 1 Outcome: Left message-voicemail Contact Type: recovery coordinator Contact Name: Steve Nair Notes: TCM#1- LM on for return call. Created By: Steve Nair [facility] RAD - Ultrasound Reporton RAD - Ultrasound Report [id number] .00TIFF [facility] Ambulatory Visit Summaryon 0 06-27-2023 Ambulatory Visit Summary MICHEAL BRICE :1940 Visit Date:06/27/2023 Ambulatory Visit Instructions Your Diagnosis BMI 35.0-35.9,adult Non-smoker Your Care Team Attending Physician - Camila Max Primary Care Physician - Camila Max This Is Your Medications List amlodipine (amLODIPine 5 mg Tab) lactobacillus acidophilus (Acidophilus Probiotic Blend) terbinafine topical (Lamisil AT 1% Cream) Procedures Performed Cholecystectomy (2023), Ankle, Bowel, Cataract, Finger, Knee replacement, Stomach. Discharge Vitals Heart Rate (Peripheral) 80 Respiratory Rate 18 Blood Pressure 134/80 Height 158.0 cm Height 62 in Weight 88.0 kg Weight 193.6 lb BMI 35.25 What to do next Scheduled Follow-Up Appointments Sunday 1:00 PM EST Where: [facility] Family Medicine [facility] Family Medicine Office/Clini c Noteon 06-27-2023 Family Medicine Office/Clinic Note HPI Staff Micheal is a 83 year old female presenting for TCM follow up TCM:(records requested 06/25/23) Hospital: [facility] Admission date: 06/20/23 Discharge date: 06/22/23 Symptoms the patient presented with: epigastric pain /cramping Procedures: Cholecystectomy/ Renal Failure Current concerns: pt is feeling better, does have cool/warm feeling in abdomen Onset: 06/22/23 Itching to back started sunday was applying itch cream and yesterday noticed soft baseball size lump by left shoulder blade denies any pain does feel hot and cold intermittently History of Present Illness pt presnts today for TCM follow up. Had gall bladder removed. discharged 06/21 Review of Systems PHQ Score Initial Depression Screen Score: 0 SCORE Physical Exam Vitals & Measurements HR: 80(Peripheral) RR: 18 BP: 134/80 SpO2: 98% HT: 62 in HT: 158.0 cm WT: 88.0 kg WT: 193.6 lb BMI: 35.25 General: alert, no acute distress ENMT: oral mucosa moist, no pharyngeal erythema or exudate Cardiovascular: regular rate and rhythm, normal peripheral perfusion Respiratory: Lungs CTA, respirations non labored Extremities: no deformity, no trauma Neurological: oriented x 4, LOC appropriate for age, CN II-XII intact, motor strength equal & normal bilaterally, speech normal Assessment/Plan 1. S/P cholecystectomy (Z90.49: Acquired absence of other specified parts of digestive tract) pt went to [place] [facility] and had gall bladder removed. dressing dry and intact. pt did point out that she now has an umbilical hernia. she has appointment with surgeon on Sunday. will discuss this further with him. pt is doing well. RTC as needed 2. Lipoma of back (D17.1: Benign lipomatous neoplasm of skin and subcutaneous tissue of trunk) pt has rash on back and was looking in the mirror at the rash and noticed a lump on her left upper shoulder area. appears to be a lipoma. will order u/s to confirm 3. Rash (R21: Rash and other nonspecific skin eruption) rash on left upper back. will order triamcinolone. 4. Non-smoker (Z78.9: Other specified health status) continue not smoking Ordered: triamcinolone topical, 1 ashwini, Topical, TID, 30 gram, Refill(s) 0, [id number], 158, cm, 06/27/23 11:03:00 EDT, Height/Length Dosing, 88, kg, 06/27/23 11:03:00 EDT, Weight Dosing [facility] 7 day disch [id number] 5. BMI 35.0-35.9,adult (Z68.35: Body mass index [BMI] 35.0-35.9, adult) BMI education complete Ordered: triamcinolone topical, 1 ashwini, Topical, TID, 30 gram, Refill(s) 0, [facility] #[id number], 158, cm, 06/27/23 11:03:00 EDT, Height/Length Dosing, 88, kg, 06/27/23 11:03:00 EDT, Weight Dosing [facility] 7 day disch [id number] Follow-up No qualifying data available Problem List/Past Medical History Ongoing BMI 36.0-36.9,adult Cerumen impaction Hypertension Lipoma of back Rash S/P cholecystectomy Spider bite Historical No qualifying data Procedure/Surgical History Cholecystectomy (2023), Ankle, Bowel, Cataract, Finger, Knee replacement, Stomach. Medications Acidophilus Probiotic Blend, 1 cap(s), Oral, BID amLODIPine 5 mg Tab, 5 mg= 1 tab(s), Oral, Daily, 3 refills Lamisil AT 1% Cream, 1 ashwini, Topical, BID triamcinolone Top 0.1% Crm 15 gram, 1 ashwini, Topical, TID Allergies No Known Allergies Social History Alcohol - Denies Alcohol Use, 04/04/2023 Tobacco - Denies Tobacco Use, 04/04/2023 Never (less than 100 in lifetime) Tobacco Use:. Never Smokeless Tobacco Use:. Household tobacco concerns: No., 06/27/2023 Family History CABG - Coronary artery bypass graft: Negative: Mother, Father, Sister and Brother. Diabetes mellitus type 2: Sister. Open heart surgery: Mother. Immunizations Vaccine Date Status diphtheria/pertussis, acel/tetanus adult 08/07/2013 Recorded tetanus-diphtheria toxoids 03/19/2004 Recorded Normal [facility] Comment on above: Result Comment: Elec tronically Signed By: Camila Max\.br\Date and Time Signed: 06/27/23 13:15 EDT Physician Orderon 06-27-2023 Physician Order [id number] .00TIFF Ulisses Gilliam [facility] 06-26-19 [facility] Case Information Case Priority: None Programs: -- Referral Source: [employer] Sales Representative Referral Reason: Care coordination Case Type: Transition Care Management Risk Score: -- Case Status: New (June 26, 2023) Date Assigned: June 26, 2023 Assigned By: Steve Nair Date Enrolled: -- Assigned Primary Personnel: Steve Nair Assigned Secondary Personnel: -- Case Physician: Camila Max Problems Ongoing BMI 36.0-36.9,adult Cerumen impaction Hypertension Spider [...] Care Plan Progress Note Admit Date: 06/20/23 [facility] Date of Discharge: 06/22/23 Follow-up appointment scheduled? yes, 06/27/23 at 1040 with PCPAlexandro Did you understand your discharge instructions? yes [...] (min): 6 Outcome: Case discussion Contact Type: recovery coordinator Contact Name: Steve Nair Notes: TCM#1-see tcm note. Created By: Steve Nair Date: June 26, 2023 Method: Phone call Type: Outbound Duration (min): 1 Outcome: Left message-voicemail Contact Type: recovery coordinator Contact Name: Steve Nair Notes: TCM#1- LM on for return call. Created By: Steve Nair [facility] Auth for Release of Medical Recordson 06-25-2023 Auth for Release of Medical Records [id number] [facility] Basic Metabolic Profon 06-21 Anion gap [Moles/Vol] 8 mmol/L Low 9-17 [facility] Comment on above: Performed By: #### C DP, BMP ####[facility] Gyv[address] [place] [id number] lab Director: Willy Henson MD BUN/CRE Ratio 27 High 9-20 [facility] Comment on above: Performed By: #### C DP, BMP ####[facility] Mtb0178 [address] [facility] [place] [address] Lab Director: Willy Henson MD Calcium [Mass/Vol] 9.0 mg/dL Normal 8.6-10.4 [facility] Comment on above: Performed By: #### C DP, BMP ####[facility] Uev5863 [place] [address] Lab Director: Willy Henson MD Chloride [Moles/Vol] 108 mmol/L High 98-107 [facility] Comment on above: Performed By: #### C DP, BMP ####[facility] Hut6630 [facility], [place] [phone] Director: Willy Henson MD CO2 [Moles/Vol] 26 mmol/L Normal 20-31 [facility] Comment on above: Performed By: #### C DP, BMP ####[facility] Ylz3848 [place] [address] Lab Director: Willy Henson MD Creatinine [Mass/Vol] 0.7 mg/dL Normal 0.5-0.9 [facility] Comment on above: Performed By: #### C DP, BMP ####[facility] Usa8716 [place] [address] Lab Director: Willy Henson MD GFR/1.73 sq M.predicted among non-blacks MDRD (S/P/Bld) [Vol rate/Area] 87 mL/min/{1.73_m2} Normal >60 [facility] Comment on above: Result Comment: [...] secretion. Performed By: #### C DP, BMP ####[facility] Rlw4735 [place], [place] [phone] Director: Willy Henson MD Glucose [Mass/Vol] 101 mg/dL High 70-99 [facility] Comment on above: Performed By: #### C DP, BMP ####[facility] Kqj1056 [place], [place] [phone] Director: Willy Henson MD Potassium [Moles/Vol] 4.1 mmol/L Normal 3.7-5.3 [facility] Comment on above: Performed By: #### C DP, BMP ####[facility] Hma3779 [place], [place] [phone] Director: Willy Henson MD Sodium [Moles/Vol] 142 mmol/L Normal 135-144 [facility] Comment on above: Performed By: #### C DP, BMP ####[facility] Czn1038 [place] [address]([facility])[phone] Director: Willy Henson MD Urea nitrogen [Mass/Vol] 19 mg/dL Normal 8-23 [facility] Comment on above: Performed By: #### C DP, BMP ####[facility] Ssi7211 [place], [place] [address])[phone] Director: Willy Henson MD CBC with Diffon 06-22-2023 Abs. Basophil 0.00 k/uL Normal 0.00-0.20 [facility] Comment on above: Performed By: #### C DP, BMP ####[facility] Uak9155 [place], [place] [phone] Director: Willy Henson MD Abs.Imm.Granulocyte 0.00 k/uL Normal 0.00-0.30 [facility] Comment on above: Performed By: #### C DP, BMP ####[facility] Qng5270 [place] [address] Lab Director: Willy Henson MD Abs.Neutrophil (Seg) 6.72 k/uL Normal 2.5-7.0 [facility] Comment on above: Performed By: #### C DP, BMP ####[facility] Gpd3589 [place] [address] Lab Director: Willy Henson MD Basophils/100 WBC (Bld) 0 % Normal 0-2 [facility] Comment on above: Performed By: #### C DP, BMP ####[facility] Wag8706 [place], [place] [address])[phone] Director: Willy Henson MD Eosinophils (Bld) [#/Vol] 0.14 10*3/uL Normal 0.00-0.40 [facility] Comment on above: Performed By: #### C DP, BMP ####[facility] Miy9214 [place] [address] Lab Director: Willy Henson MD Eosinophils/100 WBC (Bld) 1 % Normal 0-5 [facility] Comment on above: Performed By: #### C DP, BMP ####[facility] Jrv9509 [place], [place] [address])[phone] Director: Willy Henson MD Immature granulocytes/100 WBC (Bld) 0 % Normal 0-5 [facility] Comment on above: Performed By: #### C DP, BMP ####[facility] Hoe5695 [place], [place] [address])[phone] Director: Willy Henson MD Lymphocytes (Bld) [#/Vol] 6.16 10*3/uL High 1.00-4.80 [facility] Comment on above: Performed By: #### C DP, BMP ####[facility] Cxw[address] [place], [place] [phone] Director: Willy Henson MD Lymphocytes/100 WBC (Bld) 44 % High 15-40 [facility] Comment on above: Performed By: #### C DP, BMP ####[facility] Tkv7560 [address] [place], [place] [phone] Director: Willy Henson MD Monocytes (Bld) [#/Vol] 0.98 10*3/uL Normal 0.00-1.00 [facility] Comment on above: Performed By: #### C DP, BMP ####[facility] Ecm[address]54 [address] [place], [place] [phone] Director: Willy Henson MD Monocytes/100 WBC (Bld) 7 % Normal 4-8 [facility] Comment on above: Performed By: #### C DP, BMP ####[facility] Jvu2982 [place] [phone] Director: Willy Henson MD Morphology Ki (Bld) [Interp] Scanned to verify automated differential. Normal [facility] Comment on above: Performed By: #### C DP, BMP ####[facility] Vpv4144 [place] [phone] Director: Willy Henson MD Neutrophil (Seg) 48 % Normal 47-75 [facility] Comment on above: Performed By: #### C DP, BMP ####[facility] Ynm8602 [address], [place] [phone] Director: Willy Henson MD Erythrocyte distribution width (RBC) [Ratio] 13.0 % Normal 12.1-15.2 [facility] Comment on above: Performed By: #### C DP, BMP ####[facility] Yiv3067 [facility] Center[facility]leen RdWill[place], [place] [phone] lab Director: Willy Henson MD Hematocrit (Bld) [Volume fraction] 31.3 % Low 36.0-46.0 [facility] Comment on above: Performed By: #### C DP, BMP ####[facility] Vpy6302 [place] [address] Lab Director: Willy Henson MD Hemoglobin (Bld) [Mass/Vol] 10.2 g/dL Low 12.0-16.0 [facility] Comment on above: Performed By: #### C DP, BMP ####[facility] Bbu[address]22 [address] [facility] [place] [address] lab Director: Willy Henson MD MCH (RBC) [Entitic mass] 29.5 pg Normal 26.0-34.0 [facility] Comment on above: Performed By: #### C DP, BMP ####[facility] Atc1031 [facility] [place] Lab Director: Willy Henson MD MCHC (RBC) [Mass/Vol] 32.6 g/dL Normal 31.0-37.0 [facility] Comment on above: Performed By: #### C DP, BMP ####[facility] Nmq9090 [place] [address] Lab Director: Willy Henson MD MCV (RBC) [Entitic vol] 90.5 fL Normal 80.0-100.0 [facility] Comment on above: Performed By: #### C DP, BMP ####[facility] Cpv6434 [place] [address] Lab Director: Willy Henson MD Platelet mean volume (Bld) [Entitic vol] 11.1 fL Normal 6.0-12.0 [facility] Comment on above: Performed By: #### C DP, BMP ####[facility] Mlc1649 [address] [place] [address] Lab Director: Willy Henson MD Platelets (Bld) [#/Vol] 139 10*3/uL Low 140-450 [facility] Comment on above: Performed By: #### C DP, BMP ####[facility] Usp9474 [place] [address] Lab Director: Willy Henson MD RBC (Bld) [#/Vol] 3.46 10*6/uL Low 4.00-5.20 [facility] Comment on above: Performed By: #### C DP, BMP ####[facility] Iug[address]56 [address] [place] [address] Lab Director: Willy Henson MD WBC (Bld) [#/Vol] 14.0 10*3/uL High 3.5-11.0 [facility] Comment on above: Performed By: #### C DP, BMP ####[facility] Fzs4218 [address] [place] [address] Lab Director: Willy Henosn MD Basic Metab w/rfx MGon 06-20 Anion gap [Moles/Vol] 8 mmol/L Low 9-17 [facility] Comment on above: Performed By: #### L IVP, BMPX, CDP #### [facility] Lab [address] [place] [address] [employer] Operator: Willy Henson MD BUN/CRE Ratio 27 High 9-20 [facility] Comment on above: Performed By: #### L IVP, BMPX, CDP #### [facility] Lab [address] [place] [address] [employer] Operator: Willy Henson MD Calcium [Mass/Vol] 9.0 mg/dL Normal 8.6-10.4 [facility] Comment on above: Performed By: #### L IVP, BMPX, CDP #### [facility] Lab [address] [place] [phone] ([phone] [employer] Operator: Willy Henson MD Chloride [Moles/Vol] 105 mmol/L Normal 98-107 [facility] Comment on above: Performed By: #### L IVP, BMPX, CDP #### [facility] Lab [address] [place] [address] [employer] Operator: Willy Henson MD CO2 [Moles/Vol] 24 mmol/L Normal 20-31 [facility] Comment on above: Performed By: #### L IVP, BMPX, CDP #### [facility] Lab [address] [place] [address] [employer] Operator: Willy Henson MD Creatinine [Mass/Vol] 0.6 mg/dL Normal 0.5-0.9 [facility] Comment on above: Performed By: #### L IVP, BMPX, CDP #### [facility] Lab [address] [place] 8101[address] [employer] Operator: Willy Henson MD GFR/1.73 sq M.predicted among non-blacks MDRD (S/P/Bld) [Vol rate/Area] mL/min/{1.73_m2} Normal >60 [facility] Comment on above: Result Comment: These results [...] By: #### L IVP, BMPX, CDP #### [facility] Lab [address] [place] [address] [employer] Operator: Willy Henson MD Glucose [Mass/Vol] 152 mg/dL High 70-99 [facility] Comment on above: Performed By: #### L IVP, BMPX, CDP #### [facility] Lab [address] [place] [address] [employer] Operator: Willy Henson MD Potassium [Moles/Vol] 4.2 mmol/L Normal 3.7-5.3 [facility] Comment on above: Performed By: #### L IVP, BMPX, CDP #### [facility] Lab [address] [place] [address] [employer] Operator: Willy Henson MD Sodium [Moles/Vol] 137 mmol/L Normal 135-144 [facility] Comment on above: Performed By: #### L IVP, BMPX, CDP #### [facility] Lab [address] [place] [address]101[address] [employer] Operator: Willy Henson MD Urea nitrogen [Mass/Vol] 16 mg/dL Normal 8-23 [facility] Comment on above: Performed By: #### L IVP, BMPX, CDP #### [facility] Lab [address] [place] [address]101[address] [employer] Operator: Willy Henson MD CBC with Diffon 06-21-2023 Abs. Basophil Normal 0.0-0.2 [facility] Comment on above: Performed By: #### L IVP, BMPX, CDP #### [facility] Lab [address] [place] [phone] [employer] Operator: Willy Henson MD Abs. Eosinophil Normal 0.0-0.4 [facility] Comment on above: Performed By: #### L IVP, BMPX, CDP #### [facility] Lab [address] [place] [address] [employer] Operator: Willy Henson MD Abs.Imm.Granulocyte Normal 0.00-0.30 [facility] Comment on above: Performed By: #### L IVP, BMPX, CDP #### [facility] Lab [address] [place] [phone] [employer] Operator: Willy Henson MD Abs.Neutrophil (Seg) 14.01 k/uL High 2.5-7.0 [facility] Comment on above: Performed By: #### L IVP, BMPX, CDP #### [facility] Lab [address] [place], [place] [phone] [employer] Operator: Willy Henson MD Basophil Normal 0-2 [facility] Comment on above: Performed By: #### L IVP, BMPX, CDP #### [facility] Lab [address] [place], [place] 0223590 [employer] Operator: Willy Henson MD Eosinophil Normal 0-5 [facility] Comment on above: Performed By: #### L IVP, BMPX, CDP #### [facility] Lab [address] [place], [place] [phone] [employer] Operator: Willy Henson MD Immature Granulocyte Normal 0 [facility] Comment on above: Performed By: #### L IVP, BMPX, CDP #### [facility] Lab [address] [place], [place] [phone] [employer] Operator: Willy Henson MD Lymphocytes (Bld) [#/Vol] 5.48 10*3/uL High 1.0-4.8 [facility] Comment on above: Performed By: #### L IVP, BMPX, CDP #### [facility] Lab [address] [place], [place] 5112690 [employer] Operator: Willy Henson MD Lymphocytes/100 WBC (Bld) 27 % Normal 15-40 [facility] Comment on above: Performed By: #### L IVP, BMPX, CDP #### [facility] Lab [address] [place], [place] [phone] [employer] Operator: Willy Henson MD Monocytes (Bld) [#/Vol] 0.81 10*3/uL Normal 0.0-1.0 [facility] Comment on above: Performed By: #### L IVP, BMPX, CDP #### [facility] Lab [address] [place], [place] 7759[address] [employer] Operator: Willy Henson MD Monocytes/100 WBC (Bld) 4 % Normal 4-8 [facility] Comment on above: Performed By: #### L IVP, BMPX, CDP #### [facility] Lab [address] [place], [place] 6194490 [employer] Operator: Willy Henson MD Morphology Ki (Bld) [Interp] Manual Differential Performed Normal [facility] Comment on above: Performed By: #### L IVP, BMPX, CDP #### [facility] Lab [address] [place] [address] [employer] Operator: Willy Henson MD Neutrophil (Seg) 69 % Normal 47-75 [facility] Comment on above: Performed By: #### L IVP, BMPX, CDP #### [facility] Lab [address] [place] [address] [employer] Operator: Willy Henson MD Erythrocyte distribution width (RBC) [Ratio] 12.7 % Normal 12.1-15.2 [facility] Comment on above: Performed By: #### L IVP, BMPX, CDP #### [facility] Lab [address] [place] [address] [employer] Operator: Willy Henson MD Hematocrit (Bld) [Volume fraction] 34.7 % Low 36.0-46.0 [facility] Comment on above: Performed By: #### L IVP, BMPX, CDP #### [facility] Lab [address] [place] [address] [employer] Operator: Willy Henson MD Hemoglobin (Bld) [Mass/Vol] 11.4 g/dL Low 12.0-16.0 [facility] Comment on above: Performed By: #### L IVP, BMPX, CDP #### [facility] Lab [address] [place] [address] [employer] Operator: Willy Henson MD MCH (RBC) [Entitic mass] 29.5 pg Normal 26.0-34.0 [facility] Comment on above: Performed By: #### L IVP, BMPX, CDP #### [facility] Lab [address] [place] [address] [employer] Operator: Willy Henson MD MCHC (RBC) [Mass/Vol] 32.9 g/dL Normal 31.0-37.0 [facility] Comment on above: Performed By: #### L IVP, BMPX, CDP #### [facility] Lab [address] [place] [address] [employer] Operator: Willy Henson MD MCV (RBC) [Entitic vol] 89.7 fL Normal 80.0-100.0 [facility] Comment on above: Performed By: #### L IVP, BMPX, CDP #### [facility] Lab [address] [place] [address] [employer] Operator: Willy Henson MD Platelet mean volume (Bld) [Entitic vol] 11.2 fL Normal 6.0-12.0 [facility] Comment on above: Performed By: #### L IVP, BMPX, CDP #### [facility] Lab [address] [place] [address] [employer] Operator: Willy Henson MD Platelets (Bld) [#/Vol] 146 10*3/uL Normal 140-450 [facility] Comment on above: Performed By: #### L IVP, BMPX, CDP #### [facility] Lab [address] [place] [address] [employer] Operator: Willy Henson MD RBC (Bld) [#/Vol] 3.87 10*6/uL Low 4.00-5.20 [facility] Comment on above: Performed By: #### L IVP, BMPX, CDP #### [facility] Lab [address] [place], [place] [id number] [employer] Operator: Willy Henson MD WBC (Bld) [#/Vol] 20.3 10*3/uL Critically high 3.5-11.0 [facility] Comment on above: Performed By: #### L IVP, BMPX, CDP #### [facility] Lab [address] [place], [place] [id number] [employer] Operator: Willy Henson MD Liver Profileon 06-21-2023 Albumin [Mass/Vol] 3.6 g/dL Normal 3.5-5.2 [facility] Comment on above: Performed By: #### L IVP, BMPX, CDP #### [facility] Lab [address] [place], [place] 6238090 [employer] Operator: Willy Henson MD Alkaline Phos 91 U/L Normal 35-104 [facility] Comment on above: Performed By: #### L IVP, BMPX, CDP #### [facility] Lab [address] [place], [place] [id number] [employer] Operator: Willy Henson MD ALT [Catalytic activity/Vol] 55 U/L High 5-33 [facility] Comment on above: Performed By: #### L IVP, BMPX, CDP #### [facility] Lab [address] [place] [address] [employer] Operator: Willy Henson MD AST [Catalytic activity/Vol] 53 U/L High <32 [facility] Comment on above: Performed By: #### L IVP, BMPX, CDP #### [facility] Lab [address] [place], [place] [id number] [employer] Operator: Willy Henson MD Bilirubin [Mass/Vol] 0.7 mg/dL Normal 0.3-1.2 [facility] Comment on above: Performed By: #### L IVP, BMPX, CDP #### [facility] Lab [address] [place], [place] [id number] [employer] Operator: Willy Henson MD Bilirubin, Indirect Can not be calculated Normal 0.0-1 .0 [facility] Comment on above: Performed By: #### L IVP, BMPX, CDP #### [facility] Lab [address] [place] [address] [employer] Operator: Willy Henson MD Bilirubin.indirect [Mass/Vol] mg/dL Normal <0.3 [facility] Comment on above: Performed By: #### L IVP, BMPX, CDP #### [facility] Lab [address] [place] [address]101[address] [employer] Operator: Willy Henson MD Protein [Mass/Vol] 5.9 g/dL Low 6.4-8.3 [facility] Comment on above: Performed By: #### L IVP, BMPX, CDP #### [facility] Lab [address] [place] [phone] [employer] Operator: Willy Henson MD APTTon 06-20-2023 aPTT Coag (Bld) [Time] 25.8 s Normal 23.9-33.8 [facility] Comment on above: Result Comment: IV Heparin Therapy Range: 62.0-94.0 Performed By: #### P TT, PT ####[facility] Qgd6376 [place] [address] Lab Director: Willy Henson MD CBC with Diffon 06-20-2023 Abs. Basophil Normal 0.0-0.2 [facility] Comment on above: Performed By: #### L DIDI BONILLA, CP #### [facility] Lab [address] [place] [address] [employer] Operator: Willy Henson MD Abs. Eosinophil Normal 0.0-0.4 [facility] Comment on above: Performed By: #### L DIDI BONILLA, CP #### [facility] Lab [address] [place], [place] [id number] [employer] Operator: Willy Henson MD Abs.Imm.Granulocyte Normal 0.00-0.30 [facility] Comment on above: Performed By: #### L DIDI BONILLA, CP #### [facility] Lab [address] [place], [place] [id number] [employer] Operator: Willy Henson MD Abs.Neutrophil (Seg) 12.04 k/uL High 2.5-7.0 [facility] Comment on above: Performed By: #### L DIDI BONILLA, CP #### [facility] Lab [address] [place] [address] [employer] Operator: Willy Henson MD Basophil Normal 0-2 [facility] Comment on above: Performed By: #### L DIDI BONILLA, CP #### [facility] Lab [address] [place], [place] 58312[address] [employer] Operator: Willy Henson MD Eosinophil Normal 0-5 [facility] Comment on above: Performed By: #### L DIDI BONILLA, CP #### [facility] Lab [address] [place] [address] [employer] Operator: Willy Henson MD Immature Granulocyte Normal 0 [facility] Comment on above: Performed By: #### L DIDI BONILLA, CP #### [facility] Lab [address] [place], [place] [id number] [employer] Operator: Willy Henson MD Lymphocytes (Bld) [#/Vol] 5.13 10*3/uL High 1.0-4.8 [facility] Comment on above: Performed By: #### L DIDI BONILLA, CP #### [facility] Lab [address] [place], [place] 3912990 [employer] Operator: Willy Henson MD Lymphocytes/100 WBC (Bld) 29 % Normal 15-40 [facility] Comment on above: Performed By: #### L ACTDIDI SARAH, CP #### [facility] Lab [address] [place], [place] [id number] [employer] Operator: Willy Henson MD Monocytes (Bld) [#/Vol] 0.53 10*3/uL Normal 0.0-1.0 [facility] Comment on above: Performed By: #### L DIDI BONILLA, CP #### [facility] Lab [address] [place], [place] [id number] [employer] Operator: Willy Henson MD Monocytes/100 WBC (Bld) 3 % Low 4-8 [facility] Comment on above: Performed By: #### L DIDI BONILLA, CP #### [facility] Lab [address] [place] [address]101[address] [employer] Operator: Willy Henson MD Morphology Ki (Bld) [Interp] Manual Differential Performed Normal [facility] Comment on above: Performed By: #### L DIDI BONILLA, CP #### [facility] Lab [address] [place] [address] [employer] Operator: Willy Henson MD Neutrophil (Seg) 68 % Normal 47-75 [facility] Comment on above: Performed By: #### L DIDI BONILLA, CP #### [facility] Lab [address] [place] [address] [employer] Operator: Willy Henson MD Erythrocyte distribution width (RBC) [Ratio] 12.5 % Normal 12.1-15.2 [facility] Comment on above: Performed By: #### L DIDI BONILLA, CP #### [facility] Lab [address] [place] [address] [employer] Operator: Willy Henson MD Hematocrit (Bld) [Volume fraction] 37.1 % Normal 36.0-46.0 [facility] Comment on above: Performed By: #### L ACTDIDI SARAH, CP #### [facility] Lab [address] [place] [address] [employer] Operator: Willy Henson MD Hemoglobin (Bld) [Mass/Vol] 12.2 g/dL Normal 12.0-16.0 [facility] Comment on above: Performed By: #### L DIDI BONILLA, CP #### [facility] [address] [id number] [employer] Operator: Willy Henson MD MCH (RBC) [Entitic mass] 29.5 pg Normal 26.0-34.0 [facility] Comment on above: Performed By: #### L DIDI BONILLA, CP #### [facility] [address] [place] [address] [employer] Operator: Willy Henson MD MCHC (RBC) [Mass/Vol] 32.9 g/dL Normal 31.0-37.0 [facility] Comment on above: Performed By: #### L DIDI BONILLA, CP #### [facility] [address] [place] [address] [employer] Operator: Willy Henson MD MCV (RBC) [Entitic vol] 89.6 fL Normal 80.0-100.0 [facility] Comment on above: Performed By: #### L DIDI BONILLA, CP #### [facility] [address] [id number] [employer] Operator: Willy Henson MD Platelet mean volume (Bld) [Entitic vol] 10.9 fL Normal 6.0-12.0 [facility] Comment on above: Performed By: #### L DIDI BONILLA, CP #### [facility] [address] [place] [address] [employer] Operator: Willy Henson MD Platelets (Bld) [#/Vol] 147 10*3/uL Normal 140-450 [facility] Comment on above: Performed By: #### L DIDI BONILLA, CP #### [facility] [address] [place] [address] [employer] Operator: Willy Henosn MD RBC (Bld) [#/Vol] 4.14 10*6/uL Normal 4.00-5.20 [facility] Comment on above: Performed By: #### L DIDI BONILLA, CP #### [facility] [address] [place] [address] [employer] Operator: Willy Henson MD WBC (Bld) [#/Vol] 17.7 10*3/uL High 3.5-11.0 [facility] Comment on above: Performed By: #### L DIDI BONILLA, CP #### [facility] [address] [place] [address] [employer] Operator: Willy Henson MD Abs. Atypical Lymphs 0.29 k/uL Normal 0.0-1.0 [facility] Comment on above: Performed By: #### C ABEL SOTO, TROPI ####[facility] [address] [place] [address] Lab Director: Willy Henson MD Abs. Basophil Normal 0.0-0.2 [facility] Comment on above: Performed By: #### C ABEL SOTO, TROPI ####[facility] [id number] [place] [address] Lab Director: Willy Henson MD Abs.Imm.Granulocyte Normal 0.00-0.30 [facility] Comment on above: Performed By: #### C ABEL SOTO, TROPI ####[facility] Lgq[address] [place] [address] Lab Director: Willy Henson MD Abs.Neutrophil (Seg) 6.15 k/uL Normal 2.5-7.0 [facility] Comment on above: Performed By: #### C ABEL SOTO, TROPI ####[facility] [id number] [place] [address] Lab Director: Willy Henson MD Atypical Lymphs 2 % Normal [facility] Comment on above: Performed By: #### C DP, CP, TROPI ####[facility] Clu[address] [facility] [place] [address] Lab Director: Willy Henson MD Basophil Normal 0-2 [facility] Comment on above: Performed By: #### C DP, CP, TROPI ####[facility] Q[address] [facility] [place] [address] Lab Director: Willy Henson MD Eosinophils (Bld) [#/Vol] 0.29 10*3/uL Normal 0.0-0.4 [facility] Comment on above: Performed By: #### C DP, CP, TROPI ####[facility] [id number] [facility] [phone] Director: Willy Henson MD Eosinophils/100 WBC (Bld) 2 % Normal 0-5 [facility] Comment on above: Performed By: #### C DP, CP, TROPI ####[facility] [id number] [place] [address] Lab Director: Willy Henson MD Immature Granulocyte Normal 0 [facility] Comment on above: Performed By: #### C DP, CP, TROPI ####[facility] [address] [facility] [place] [address] Lab Director: Willy Henson MD Lymphocytes (Bld) [#/Vol] 6.43 10*3/uL High 1.0-4.8 [facility] Comment on above: Performed By: #### C DP, CP, TROPI ####[facility] [id number] [place] [address] Lab Director: Willy Henson MD Lymphocytes/100 WBC (Bld) 45 % High 15-40 [facility] Comment on above: Performed By: #### C DP CP, TROPI ####[facility] [address] [place] [address] Lab Director: Willy Henson MD Monocytes (Bld) [#/Vol] 1.14 10*3/uL High 0.0-1.0 [facility] Comment on above: Performed By: #### C DP, CP, TROPI ####[facility] [address] [place] [phone] Director: Willy Henson MD Monocytes/100 WBC (Bld) 8 % Normal 4-8 [facility] Comment on above: Performed By: #### C DP, CP, TROPI ####[facility] [address] [place] [address] Lab Director: Willy Henson MD Morphology Ki (Bld) [Interp] Manual Differential Performed Normal [facility] Comment on above: Performed By: #### C DP, CP, TROPI ####[facility] [address] [place] [address] Lab Director: Willy Henson MD Neutrophil (Seg) 43 % Low 47-75 [facility] Comment on above: Performed By: #### C DP, CP, TROPI ####[facility] [address] [place] [address] Lab Director: Willy Henson MD Erythrocyte distribution width (RBC) [Ratio] 12.7 % Normal 12.1-15.2 [facility] Comment on above: Performed By: #### C DP, CP, TROPI ####[facility] [address] [place] [address] Lab Director: Willy Henson MD Hematocrit (Bld) [Volume fraction] 38.0 % Normal 36.0-46.0 [facility] Comment on above: Performed By: #### C DP, CP, TROPI ####[facility] [address] [place] [address] Lab Director: Willy Henson MD Hemoglobin (Bld) [Mass/Vol] 12.5 g/dL Normal 12.0-16.0 [facility] Comment on above: Performed By: #### C DP, CP, TROPI ####[facility] [address] [place] [address] Lab Director: Willy Henson MD MCH (RBC) [Entitic mass] 29.3 pg Normal 26.0-34.0 [facility] Comment on above: Performed By: #### C DP, CP, TROPI ####[facility] [address] [place] [address] Lab Director: Willy Henson MD MCHC (RBC) [Mass/Vol] 32.9 g/dL Normal 31.0-37.0 [facility] Comment on above: Performed By: #### C DP, CP, TROPI ####[facility] [id number] [place] [address] Lab Director: Willy Henson MD MCV (RBC) [Entitic vol] 89.2 fL Normal 80.0-100.0 [facility] Comment on above: Performed By: #### C DP, CP, TROPI ####[facility] [address] [place] [address] Lab Director: Willy Henson MD Platelet mean volume (Bld) [Entitic vol] 11.0 fL Normal 6.0-12.0 [facility] Comment on above: Performed By: #### C DP, CP, TROPI ####[facility] [address] [place] [address] Lab Director: Willy Henson MD Platelets (Bld) [#/Vol] 159 10*3/uL Normal 140-450 [facility] Comment on above: Performed By: #### C ABEL SOTO, TROPI ####[facility] [address] [place], [place] [id number] Director: Willy Henson MD RBC (Bld) [#/Vol] 4.26 10*6/uL Normal 4.00-5.20 [facility] Comment on above: Performed By: #### C AEBL SOTO, TROPI ####[facility] [address] [place], [place] [phone] Director: Willy Henson MD WBC (Bld) [#/Vol] 14.3 10*3/uL High 3.5-11.0 [facility] Comment on above: Performed By: #### C ABEL SOTO, TROPI ####[facility] [address] [place], [place] [id number] Director: Willy Henson MD CT ABDOMEN PELVIS [...] Neptali Johnson MD 06/20/23 Final result Normal [facility] Comp Metabolic Profon 2023 Albumin [Mass/Vol] 4.3 g/dL Normal 3.5-5.2 [facility] Comment on above: Performed By: #### L DIDI BONILLA, CP #### [facility] [address], [place] [id number] [employer] Machine Operator: Willy Henson MD Alkaline Phos 109 U/L High 35-104 [facility] Comment on above: Performed By: #### L DIDI BONILLA, CP #### [facility] [address], [place] [id number] [employer] Machine Operator: Willy Henson MD ALT [Catalytic activity/Vol] 20 U/L Normal 5-33 [facility] Comment on above: Performed By: #### L DIDI BONILLA, CP #### [facility] [address], [place] [id number] [employer] Operator: Willy Henson MD Anion gap [Moles/Vol] 10 mmol/L Normal 9-17 [facility] Comment on above: Performed By: #### L DIDI BONILLA, CP #### [facility] [address], [place] [id number] [employer] Machine Operator: Willy Henson MD AST [Catalytic activity/Vol] 20 U/L Normal <32 [facility] Comment on above: Performed By: #### L ACTKEARA CDP, CP #### [facility] [address], [place] [id number] [employer] Operator: Willy Henson MD Bilirubin [Mass/Vol] 0.2 mg/dL Low 0.3-1.2 [facility] Comment on above: Performed By: #### L DIDI BONILLA, CP #### [facility] [address], [place] [id number] [employer] Machine Operator: Willy Henson MD BUN/CRE Ratio 26 High 9-20 [facility] Comment on above: Performed By: #### L DIDI BONILLA, CP #### [facility] [address], [place] 7274390 [employer] Machine Operator: Willy Henson MD Calcium [Mass/Vol] 8.8 mg/dL Normal 8.6-10.4 [facility] Comment on above: Performed By: #### L DIDI BONILLA, CP #### [facility] [address], [place] [id number] [employer] Machine Operator: Willy Henson MD Chloride [Moles/Vol] 99 mmol/L Normal 98-107 [facility] Comment on above: Performed By: #### L DIDI BONILLA, CP #### [facility] [address], [place] 8958790 [employer] Operator: Willy Henson MD CO2 [Moles/Vol] 24 mmol/L Normal 20-31 [facility] Comment on above: Performed By: #### L ACTKEARA CDP, CP #### [facility] [address] [place] [address] [employer] Machine Operator: Willy Henson MD Creatinine [Mass/Vol] 0.8 mg/dL Normal 0.5-0.9 [facility] Comment on above: Performed By: #### L DIDI BONILLA, CP #### [facility] [address] [place] [address] [employer] Machine Operator: Willy Henson MD GFR/1.73 sq M.predicted among non-blacks MDRD (S/P/Bld) [Vol rate/Area] 74 mL/min/{1.73_m2} Normal >60 [facility] Comment on above: Result Comment: [...] By: #### L DIDI BONILLA, CP #### [facility] [address] [place] [address] [employer] Machine Operator: Willy Henson MD Glucose [Mass/Vol] 155 mg/dL High 70-99 [facility] Comment on above: Performed By: #### L DIDI BONILLA, CP #### [facility] [address] [place] [address] [employer] Machine Operator: Willy Henson MD Potassium [Moles/Vol] 4.0 mmol/L Normal 3.7-5.3 [facility] Comment on above: Performed By: #### L DIDI BONILLA, CP #### [facility] [address] [place] [address] [employer] Machine Operator: Willy Henson MD Protein [Mass/Vol] 6.6 g/dL Normal 6.4-8.3 [facility] Comment on above: Performed By: #### L DIDI BONILLA, CP #### [facility] [address] [place] [address] [employer] Machine Operator: Willy Henson MD Sodium [Moles/Vol] 133 mmol/L Low 135-144 [facility] Comment on above: Performed By: #### L DIDI BONILLA, CP #### [facility] [address] [place] [address] [employer] Machine Operator: Willy Henson MD Urea nitrogen [Mass/Vol] 21 mg/dL Normal 8-23 [facility] Comment on above: Performed By: #### L DIDI BONILLA, CP #### [facility] [address] [place] [address] [employer] Machine Operator: Willy Henson MD Albumin [Mass/Vol] 4.3 g/dL Normal 3.5-5.2 [facility] Comment on above: Performed By: #### C BRITTANY CP, TROPI ####[facility] [id number] [place] [address] Lab Director: Willy Henson MD Alkaline Phos 115 U/L High 35-104 [facility] Comment on above: Performed By: #### C BRITTANY CP, TROPI ####[facility] [id number] [place] [address] Lab Director: Willy Henson MD ALT [Catalytic activity/Vol] 19 U/L Normal 5-33 [facility] Comment on above: Performed By: #### C DP, CP, TROPI ####[facility] Nlj[address]14 [facility] [address] Lab Director: Willy Henson MD Anion gap [Moles/Vol] 11 mmol/L Normal 9-17 [facility] Comment on above: Performed By: #### C DP CP, TROPI ####[facility] [address] [place] [address] Lab Director: Willy Henson MD AST [Catalytic activity/Vol] 19 U/L Normal <32 [facility] Comment on above: Performed By: #### C DP CP, TROPI ####[facility] [address] [place] [address] Lab Director: Willy Henson MD Bilirubin [Mass/Vol] 0.3 mg/dL Normal 0.3-1.2 [facility] Comment on above: Performed By: #### C DP, CP, TROPI ####[facility] Xfh[address] [place] [address] Lab Director: Willy Henson MD BUN/CRE Ratio 23 High 9-20 [facility] Comment on above: Performed By: #### C DP CP, TROPI ####[facility] [id number] [place] [address] Lab Director: Willy Henson MD Calcium [Mass/Vol] 9.8 mg/dL Normal 8.6-10.4 [facility] Comment on above: Performed By: #### C DP, CP, TROPI ####[facility] [id number] [place] [address] Lab Director: Willy Henson MD Chloride [Moles/Vol] 101 mmol/L Normal 98-107 [facility] Comment on above: Performed By: #### C DP, CP, TROPI ####[facility] Tqf[address]72 [facility] [place] [address] Lab Director: Willy Henson MD CO2 [Moles/Vol] 26 mmol/L Normal 20-31 [facility] Comment on above: Performed By: #### C DP, CP, TROPI ####[facility] T[address] [facility] [place] [address] Lab Director: Willy Henson MD Creatinine [Mass/Vol] 1.2 mg/dL High 0.5-0.9 [facility] Comment on above: Performed By: #### C DP CP, TROPI ####[facility] [address] [place] [address] Lab Director: Willy Henson MD GFR/1.73 sq M.predicted among non-blacks MDRD (S/P/Bld) [Vol rate/Area] 45 mL/min/{1.73_m2} Low >60 [facility] Comment on above: Result Comment: [...] Performed By: #### C DP CP, TROPI ####[facility] Q[address]84 [place] [address] Lab Director: Willy Henson MD Glucose [Mass/Vol] 130 mg/dL High 70-99 [facility] Comment on above: Performed By: #### C BRITTANY CP, TROPI ####[facility] [id number] [place] [address] Lab Director: Willy Henson MD Potassium [Moles/Vol] 3.8 mmol/L Normal 3.7-5.3 [facility] Comment on above: Performed By: #### C DP CP, TROPI ####[facility] [address] [place] [address] Lab Director: Willy Henson MD Protein [Mass/Vol] 6.8 g/dL Normal 6.4-8.3 [facility] Comment on above: Performed By: #### C DP, CP, TROPI ####[facility] [address]xp[address] [place] [address] Lab Director: Willy Henson MD Sodium [Moles/Vol] 138 mmol/L Normal 135-144 [facility] Comment on above: Performed By: #### C ABEL SOTO, TROPI ####[facility] [address] [place] [address] Lab Director: Willy Henson MD Urea nitrogen [Mass/Vol] 27 mg/dL High 8-23 [facility] Comment on above: Performed By: #### C ABEL SOTO, TROPI ####[facility] [address] [place] [address] Lab Director: Willy Henson MD D-Dimer Teston 06-20-2023 D-Dimer Test 0.36 ug/mL FEU Normal 0.00-0.59 [facility] Comment on above: Result Comment: When [...] DVT. Performed By: #### D MAGDALENA #### [facility] [address] [place], [place] [id number] [employer] Machine Operator: Willy Henson MD Lactic Acidon 06-20-2023 Lactate [Moles/Vol] 1.2 mmol/L Normal 0.5-2.2 [facility] Comment on above: Performed By: #### L ACTIC, CDP, CP #### [facility] [address] [place] [address] [employer] Machine Operator: Willy Henson MD Lipaseon 06-20-2023 Lipase [Catalytic activity/Vol] 24 U/L Normal 13-60 [facility] Comment on above: Performed By: #### L IP #### [facility] [address] [place], [place] [address] [employer] Operator: Willy Henson MD PTon 06-20-2023 INR Coag (PPP) [Relative time] 1.1 {INR} Normal [facility] Comment on above: Result Comment: Therapeutic Range: Moderate Anticoagulant Intensity: INR = 2.0-3.0 High Anticoagulant Intensity: INR = 2.5-3.5 Performed By: #### P TT, PT ####[facility] [id number] [place] [address] Lab Director: Willy Henson MD PT Coag (PPP) [Time] 13.8 s Normal 11.5-14.2 [facility] Comment on above: Performed By: #### P TT, PT ####[facility] [address] [place] [address] Lab Director: Willy Henson MD Troponinon 06-20-2023 Troponin, High Sens 6 ng/L Normal 0-14 [facility] Comment on above: Result Comment: High Sensitivity Troponin values cannot be compared with other Troponin methodologies. Performed By: #### C DP, CP, TROPI ####[facility] [address] [place] [address] Lab Director: Willy Henson MD US ABDOMEN LIMITEDon 024 US ABDOMEN LIMITED EXAM: US ABDOMEN LIMITED HISTORY: RUQ pain, question of gallstones on CT. COMPARISON: CT scan abdomen and pelvis 06/20/2023, [facility] abdominal ultrasound 04/04/2023, which showed multiple gallstones. [...] since this was not present on 04/04/2023 [place] ultrasound). IMPRESSION: The right kidney substantially shadowed by gas without hydronephrosis. Cholelithiasis. Tumefactive sludge versus large gallbladder polyp (less likely since this was not present on 04/04/2023 [place] ultrasound). Interpreted by: Joel Osullivan Jr., MD Signed by: Joel Osullivan Jr., MD 06/20/23 Final result Normal [facility] XR CHEST PORTABLEon 06-20-19 XR CHEST PORTABLE EXAMINATION:XR CHEST PORTABLE INDICATION:chst pain COMPARISON:01/29/2023 TECHNIQUE:A single frontal view of the chest [...] Jaelyn Stanley DO 06/20/23 Final result Normal [facility] Ambulatory Visit Summaryon 0 04-23-2023 Ambulatory Visit Summary MICHEAL BRICE :1940 Visit Date:04/23/2023 Ambulatory Visit Instructions Your Diagnosis Cerumen impaction BMI 34.0-34.9,adult Non-smoker Your Care Team Attending Physician - Camila Max Primary Care Physician - Camila Max This Is Your Medications List amlodipine [...] Follow-Up Appointments Sunday 1:00 PM EST Where: [facility] Family Medicine [place] Normal [facility] Medicine Office/Clini c Noteon 04-23-2023 Family Medicine [...] heart surgery: Mother. Immunizations Vaccine Date Status diphtheria/pertussis, acel/tetanus adult 08/07/2013 Recorded tetanus-diphtheria toxoids 03/19/2004 Recorded Normal [facility] Comment on above: Result Comment: Elec tronically Signed By: Camila Max\.br\Date and Time Signed: 04/23/23 11:19 EST Transfer Inon 04-19-2023 Transfer In [id number] .[id number] Normal [facility] Auth for Release of Medical Recordson 04-18-2023 Auth for Release of Medical Records [id number] .00TIFF Normal [facility] CHEMISTRYOrdered By: SYSTEM SYSTEM on 04-04-2023 Cholesterol [...] [Mass/Vol] 129 mg/dL Normal <=149mg/dL Remisol Chem Office Visiton 11-08-2022 Follow-up visit [id number] Micheal Brice 1940 F Date Provider Department Center 11/08/2022 [id number]-STEVE PEGUERO Family History Problem Relation Age of Onset Coronary artery disease Mother Other Mother Family Status - Relation Status Age at Mother Level of Service:90712 MD OFFICE/OUTPATIENT NEW MODERATE MDM 45-59 MINUTES Normal [facility] Vital Signs Date Time Vital Sign Value Performing Clinician Facility 08-04-2023 19:02-0400 Body temperature 98.1 [degF] [facility] SPO Medical 08-04-2023 19:02-0400 Diastolic blood pressure 80 mm[Hg] [facility] [employer] 08-04-2023 19:02-0400 Heart rate 95 /min [facility] valuklik 08-04-2023 19:02-0400 Respiratory rate 16 /min [facility] Medical 08-04-2023 19:02-0400 SaO2% (BldA) [Mass fraction] 96 % [facility] 01 [facility] [employer] 08-04-2023 19:02-0400 Systolic blood pressure 130 mm[Hg] [facility] 01 [facility] [employer] 08-03-2023 06:29-0400 Body temperature 97 [degF] Michelle Cox MD Work Phone: [facility] [employer] 08-03-2023 06:29-0400 Diastolic blood pressure 69 mm[Hg] iMchelle Cox MD Work Phone: [facility] [employer] 08-03-2023 06:29-0400 Heart rate 52 /min Michelle Cox MD Work Phone: [facility] [employer] 08-03-2023 06:29-0400 Respiratory rate 18 /min Michelle Cox MD Work Phone: [facility] [employer] 08-03-2023 06:29-0400 SaO2% (BldA) [Mass fraction] 98 % Michelle Cox MD Work Phone: [facility] [employer] 08-03-2023 06:29-0400 Systolic blood pressure 136 mm[Hg] Michelle Cox MD Work Phone: [facility] [employer] 08-02-2023 03:35-0400 Body mass index (BMI) [Ratio] 36.45 kg/m2 Michelle Cox MD Work Phone: [facility] [employer] 08-02-2023 03:35-0400 Body weight 90.4 kg Michelle Cox MD Work Phone: [facility] [employer] 08-01-2023 07:45-0400 Body height 157.5 cm Michelle Cox MD Work Phone: [facility] [employer] 07-18-2023 13:11-0400 Body temperature 97.59 [degF] Ramon Olea MD Work Phone: [facility] [employer] 07-18-2023 13:11-0400 Diastolic blood pressure 84 mm[Hg] Ramon Olea MD Work Phone: [facility] [employer] 05-01-2024 13:11-0400 Heart rate 65 /min Ramon Olea MD Work Phone: [facility] 07-18-2023 13:11-0400 Respiratory rate 17 /min Ramon Olea MD Work Phone: [facility] 07-18-2023 13:11-0400 SaO2% (BldA) [Mass fraction] 97 % Ramon Olea MD Work Phone: [facility] 07-18-2023 13:11-0400 Systolic blood pressure 118 mm[Hg] Ramon Olea MD Work Phone: [facility] 07-18-2023 07:32-0400 Body height 157.5 cm Ramon Olea MD Work Phone: [facility] 07-18-2023 05:14-0400 Body mass index (BMI) [Ratio] 34.27 kg/m2 Ramon Olea MD Work Phone: [facility] 07-18-2023 05:14-0400 Body weight 85 kg Ramon Olea MD Work Phone: [facility] 05-09-2022 08:07-0500 Body height 157.5 cm Luis Felipe Lopes MD Work Phone: [facility] 05-09-2022 08:07-0500 Body mass index (BMI) [Ratio] 37.49 kg/m2 Luis Felipe Lopes MD Work Phone: [facility] 05-09-2022 08:07-0500 Body weight 92.99 kg Luis Felipe Lopes MD Work Phone: [facility] 04-18-2022 08:32-0500 Body height 157.5 cm Luis Felipe Lopes MD Work Phone: [facility] 04-18-2022 08:32-0500 Body mass index (BMI) [Ratio] 37.49 kg/m2 Luis Felipe Lopes MD Work Phone: [facility] 04-18-2022 08:32-0500 Body weight 92.99 kg Luis Felipe Lopes MD Work Phone: [facility] Encounters Encounter Date Encounter Type Care Provider Facility Start: 04-13-2025 ambulatory Camila L Cosmo Facility: [facility] [place] Start: 04-24-2024 ambulatory Camila L Cosmo Facility: [facility] Start: 04-10-2024 End: 04-10-2024 Lab Drop off Camila L Cosmo [facility] Start: 04-10-2024 End: 04-10-2024 ambulatory KIA Ceferino JIMMIE Facility:[facility] Start: 10-01-2023 End: 10-01-2023 ambulatory Camila L Cosmo Facility:[facility] Start: 09-03-2023 End: 09-03-2023 ambulatory Camila L Cosmo Facility:[facility] [place] Start: 08-27-2023 End: 08-27-[address] [facility] Start: 08-27-2023 End: 08-27-2023 ambulatory Camila L Cosmo Facility:[facility] Start: 08-07-2023 End: 08-07-2023 ambulatory [facility] Start: 08-06-2023 End: 09-05-2023 ambulatory [facility]ACOB [facility] Start: 08-05-2023 End: 08-06-2023 ambulatory RADHIKA IACOB [facility] Start: 08-04-2023 End: 08-05-2023 ambulatory RADHIKA IACOB [facility] Start: 08-04-2023 End: 08-04-2023 Subsequent hospital visit by physician [facility] Op Treatment Rm 01 [facility] Comment on above: Arrived Start: 08-04-2023 End: 08-04-2023 ambulatory RADHIKA IACOB [facility] Start: 07-31-2023 End: 08-03-2023 [facility] Start: 07-31-2023 End: 08-03-2023 Evaluation and management of inpatient Michelle Cox MD Work Phone: [facility] Comment on above: Post-operative wound abscess (Primary Dx); Failure of outpatient treatment; Abscess of umbilicus; Abscess of postoperative wound of abdominal wall Start: 07-26-2023 End: 07-26-2023 ambulatory [facility] Facility:[facility] Start: 07-17-2023 End: 07-18-2023 Evaluation and management of inpatient RAMON OLEA [facility] Start: 07-17-2023 End: 07-18-2023 Evaluation and management of inpatient Ramon Olea MD Work Phone: [facility] Comment on above: Incarcerated ventral hernia (Primary Dx); Wound dehiscence; Post-op pain Start: 06-27-2023 End: 06-27-2023 ambulatory [facility] Facility:[facility] Start: 06-26-2023 End: 08-01-2023 ambulatory [facility] Facility:CD:[id number] Start: 06-20-2023 Evaluation and manag ement of inpatient [facility] Start: 04-23-2023 End: 04-23-2023 ambulatory [facility] Facility:[facility] Start: 04-04-2023 End: 04-04-2023 Lab Drop off KIA SAMUEL [facility] Start: 11-08-2022 End: 11-08-2022 [facility] Start: 05-09-2022 End: 05-09-2022 ambulatory PHYSICIAN NO [facility] Ambulatory Start: 05-09-2022 End: 05-09-2022 Office outpatient visit 15 minutes Luis Felipe Lopes MD Work Phone: [facility] Comment on above: History of total rig ht knee replacement (Primary Dx) Start: 04-28-2022 Erna Fitzgerald MA [facility] Start: 04-18-2022 End: 04-22-2022 ambulatory PHYSICIAN NO [facility]ulatory Start: 04-18-2022 End: 04-18-2022 Office outpatient new 30 minutes Luis Felipe Lopes MD Work Phone: [facility] Comment on above: History of total rig ht knee replacement (Primary Dx) Start: 03-29-2022 End: 03-30-[address] MIGEL RAMSEY Facility:[facility]1 Procedures Date Procedure Procedure Detail Performing Clinician Start: 08-03-2023 Blood count complete auto&auto difrntl wbc Luis Felipe Castañeda MD Work Phone: Start: 08-03-2023 End: 08-03-2023 Rhythm ecg 1-3 leads w/interpretation & report Unknown Provider Result Start: 08-02-2023 End: 08-03-2023 Rhythm ecg 1-3 leads w/interpretation & report Unknown Provider Result Start: 08-02-2023 Blood count complete auto&auto difrntl wbc Luis Felipe Castañeda MD Work Phone: Start: 08-01-2023 End: 08-02-2023 Rhythm ecg 1-3 leads w/interpretation & report Unknown Provider Result Start: 08-01-2023 Blood count complete auto&auto difrntl wbc Luis Felipe Castañeda MD Work Phone: Start: 08-01-2023 Rhythm ecg 1-3 leads w/interpretation & report Unknown Provider Result Start: 07-31-2023 Cul prsmptv pthgnc organism scrn w/colony estimj Luis Felipe Castañeda MD Work Phone: Start: 07-31-2023 End: 07-31-2023 ABDOMEN INCISION AND DRAINAGE Luis Felipe Castañeda MD Work Phone: Start: 07-31-2023 Intermittent pulse oximetry Luis Felipe Castañeda MD Work Phone: Start: 07-31-2023 Ct abdomen & pelvis w/contrast material Richelle La PA-C Work Phone: Start: 07-31-2023 Basic metabolic pane l calcium total Richelle La PA-C Work Phone: Start: 07-18-2023 Comprehensive metabo lic panel Ramon Olea MD Work Phone: Start: 07-17-2023 End: 07-17-2023 HERNIA UMBILICAL REPAIR EXTENSIVE Ramon Olea MD Work Phone: Start: 07-17-2023 End: 07-17-2023 SINGLE ANASTOMOSIS DUODENAL ILEAL BYPASS ROBOTIC ASSISTED Ramon Olea MD Work Phone: Start: 07-17-2023 End: 07-17-2023 UMBILECTOMY OMPHALECTOMY Ramon de leon MD Work Phone: Start: 03-19-2023 Cholecystectomy Camila Sc hwab Ankle region structu re (body structure) KIA SAMUEL Comment on above: right Arthroplasty of knee KIA SAMUEL Comment on above: 2009, right Cataract (disorder) KIA Josh ESPINOZAMIRIAM Comment on above: bilateral 2006 Finger structure (sanjiv dy structure) KIA SAMUEL History of cholecystectomy S/P cholecyste ctomy Camila Cosmo Intestinal structure (body structure) KIA SAMUEL Comment on above: obstruction Stomach structure (b sanford structure) KIA SAMUEL Comment on above: 1970 Plan of Treatment Date Care Activity Detail Author Start: 10-18-2023 Influenza vaccination Flu vacc ine (Season Ended) [facility] Start: 08-27-2023 End: 08-27-2023 Patient encounter procedure 08/27/2023 2:30 PM EDT Office Visit [address] [place] [address] Ramon Olea MD [address] [place] [address] [address] [place] [address] 4 weeks [facility] Comment on above: 4 weeks Start: 08-08-2023 DTaP/Tdap/Td vaccine (2 - Td or Tdap) DTaP/Tdap/Td vaccine (2 - Td or Tdap) [facility] Start: 08-08-2023 Tetanus vaccination Tetanus: Every 1 0yrs [facility] Start: 08-07-2023 End: 08-07-2023 Patient encounter procedure 08/07/2023 2:30 PM EDT Office Visit [address] [place] [phone] Ramon Olea MD [address] [place] [address] [address] [place] [address] post op, fistula 1 and D. [facility] Comment on above: post op, fistula 1 a nd D. Start: 08-06-2023 End: 08-06-2023 Patient encounter procedure 08/06/2023 7:00 AM EDT Appointment [facility] [address] [place], [place] [id number] [facility] Start: 08-05-2023 End: 08-05-2023 Patient encounter procedure [facility] Start: 08-04-2023 End: 08-04-2023 Patient encounter procedure [facility] Start: 07-25-2023 End: 07-25-2023 Patient encounter procedure 07/25/2023 4:30 PM EDT Office Visit [address] [place] [address] Ramon Olea MD [address] [place] [address] [address] [place] [address] post op check, revision of umbilical incision [facility] Comment on above: post op check, jose ion of umbilical incision Start: 06-20-2023 Annual Wellness Visi t (Medicare) Annual Wellness Visit (Medicare) [facility] Start: 05-08-2023 End: 05-08-2023 Patient encounter procedure 05/08/2023 Office Visit Orthopedic Surgery Luis Felipe Lopes MD [address] [place] [address] [facility] Start: 05-09-2022 End: 05-09-2022 Patient encounter procedure 05/09/2022 Office Visit Orthopedic Surgery Luis Felipe Lopes MD [address] [place] [address] [facility] Start: 11-17-2021 Influenza vaccination Sequenti al Influenza Vaccine (#1) [facility] Start: 2007 Fall risk assessment Falls Risk Asse ssment [facility] Start: 2007 Pneumococcal 65+ yea rs Vaccine (1 of 1 - PCV) Pneumococcal 65+ years Vaccine (1 of 1 - PCV) [facility] Start: 2007 Pneumococcal Vaccine : Age 65+ (1 - PCV) Pneumococcal Vaccine: Age 65+ (1 - PCV) [facility] Start: 2002 Respiratory Syncytia l Virus (RSV) or age 60 yrs+ (1 - 1-dose 60+ series) Respiratory Syncytial Virus (RSV) or age 60 yrs+ (1 - 1-dose 60+ series) [facility] Start: 1992 Administration of he rpes zoster vaccine Zoster Vaccines (1 of 2) [facility] Start: 1992 Shingles vaccine (1 of 2) Shingles vaccine (1 of 2) [facility] Start: 1982 Screening for malign ant neoplasm of breast Mammogram [facility] Start: 1954 Depression Screen Depression Screen [facility] Start: 1954 Depression screening using PHQ-9 (Patient Health Questionnaire 9) score Depression Screening (PHQ-2/9) [facility] Start: 1945 History and physical examination, annual for health maintenance Wellness Visit [facility] Start: 1942 COVID-19 Vaccine (#1) COVID-19 Vacci ne (#1) [facility] Start: 1942 Screening for osteoporosis Dexa Scan [facility] End: 11-07-2023 CBC W Auto Differential panel - Blood CBC auto differential Lab Routine Tomorrow AM for 99 Occurrences starting 08/01/2023 until 11/07/2023, 3 completed [facility] Comment on above: Tomorrow AM for 99 O ccurrences starting 08/01/2023 until 11/07/2023, 3 completed End: 11-07-2023 Comprehensive Metabolic Panel w/ Reflex to MG Comprehensive Metabolic Panel w/ Reflex to MG Lab Routine Tomorrow AM for 99 Occurrences starting 08/01/2023 until 11/07/2023, 3 completed [facility] Comment on above: Tomorrow AM for 99 O ccurrences starting 08/01/2023 until 11/07/2023, 3 completed Culture, Anaerobic a nd Aerobic [facility] Comment on above: Release Upon Orderin g for 1 Occurrences starting 07/31/2023 Oxygen therapy [Mini mum Data Set] Initiate Oxygen Therapy Protocol Respiratory Care Routine As Needed until discontinued starting 07/17/2023 [facility] Comment on above: As Needed until disc ontinued starting 07/17/2023 Oxygen therapy [Mini mum Data Set] Initiate Oxygen Therapy Protocol Respiratory Care Routine As Needed until discontinued starting 07/31/2023 [facility] Comment on above: As Needed until disc ontinued starting 07/31/2023 Surgical Pathology Surgical Path ology Lab Routine Wound dehiscence Release Upon Ordering for 1 Occurrences starting 07/17/2023 [facility] Comment on above: Release Upon Orderin g for 1 Occurrences starting 07/17/2023 End: 07-17-2023 SURGICAL PATHOLOGY REPORT SURGICAL PATHOLOGY REPORT Lab Routine Once for 1 Occurrences starting 07/17/2023 until 07/17/2023 [facility] Comment on above: Once for 1 Occurrenc es starting 07/17/2023 until 07/17/2023 Immunizations Immunization Date Immunization Notes Care Provider Harmony vu 08-07-2013 tetanus toxoid, reduced diphtheria toxoid, and acellular pertussis vaccine, adsorbed KIA SAMUEL [facility] [place] 03-19-2004 tetanus and diphther ia toxoids, adsorbed, preservative free, for adult use (2 Lf of tetanus toxoid and 2 Lf of diphtheria toxoid) KIA AUGUSTINHMANN [facility] NEGATED: Highlighted row has not occurred!04-10-2024 influenza virus vaccine, unspecified formulation Camila Carlos [facility] Payers Date Payer Category Payer Private Health Insurance [id number] 2023 Private Health Insurance [id number] 2021 Medicare ANTHEM MANAGED M LITA WHITFIELDHCA [facility] ACCESS/ENHANCED/CORE PPO/RPPO [id number] 2021-Present [phone] [address] [place] [address] [id number] 2007 Medicare [id number] 1959 Unknown [id number] 1942 Unknown [id number] 2.16.840.1.260452.3.579.2 .593 1942 Unknown [id number] 2.16.840.1.094605.3.579.2 .903 1942 Unknown [id number] 2.16.840.1.270789.3.579.2 .903 1942 Unknown [id number] 2.16.840.1.133193.3.579.2 .903 1942 Unknown [id number] 2.16.840.1.715406.3.579.2 .174 1942 Unknown [id number] 2.16.840.1.787022.3.579.2 .173 1942 Unknown [id number] 2.16.840.1.988653.3.579.2 .173 1942 Unknown [id number] 2.16.840.1.545562.3.579.2 .173 1942 Unknown [id number] 2.16.840.1.369417.3.579.2 .173 1942 Unknown [id number] 2.16.840.1.069799.3.579.2 .173 1942 Unknown [id number] 2.16.840.1.828786.3.579.2 .173 1942 Unknown [id number] 2.16.840.1.900234.3.579.2 .1286 1942 Unknown [id number] 2.16.840.1.375993.3.579.2 .727 1942 Unknown [id number] 2.16.840.1.333521.3.579.2 .727 1942 Unknown [id number] 2.16.840.1.104105.3.579.2 .727 1942 Unknown [id number] 2.16.840.1.506340.3.579.2 .727 1942 Unknown [id number] 2.16.840.1.165516.3.579.2 .727 1942 Unknown [id number] 2.16.840.1.379017.3.579.2 .727 1942 Unknown [id number] 2.16.840.1.433628.3.579.2 .727 1942 Unknown [id number] 2.16.840.1.501409.3.579.2 .727 1942 Unknown [id number] 2.16.840.1.549917.3.579.2 .727 1942 Unknown [id number] 2.16.840.1.048595.3.579.2 .727 1942 Unknown [id number] 2.16.840.1.198540.3.579.2 .727 1942 Unknown [id number] 2.16.840.1.713896.3.579.2 .727 1942 Unknown [id number] 2.16.840.1.350941.3.579.2 .727 1942 Unknown [id number] 2.16.840.1.456986.3.579.2 .727 Social History Date Type Detail Facility [facility] Start: 1940 Sex Assigned At Not on file [facility] Start: 04-08-2022 End: 05-09-2022 Exposure to SARS-CoV-2 (event) Not sure [facility] Start: 04-04-2023 End: 04-10-2024 Tobacco smoking status Never smoked tobacco (finding) [facility] Comment on above: denies use. Tobacco smoking status Never [facility] Comment on above: denies use. Start: 06-20-2023 End: 07-31-2023 Sex Assigned At Female [facility] Start: 07-17-2023 End: 08-03-2023 Alcohol intake Current non-drinker of alcohol (finding) [facility] Start: 07-17-2023 End: 07-31-2023 Alcohol intake [facility] Has the [employer] or water [employer] threatened to shut off services in your home in past 12Mo No [facility] How often to you hav e a drink containing alcohol? Never [facility] (I/We) worried zenaida er (my/our) food would run out before (I/we) got money to buy more. Never true [facility] Clinical Notes 03-30-2022 to 04-10-2024 Osei Hancock RN - 08/03/2023 7:15 PM Chloe John RN - 08/03/2023 6:40 PM Chloe John RN - 08/03/2023 3:00 PM Luis Felipe Siu MD - 08/03/2023 12:48 PM EDTDischarge Instructions Note Date & Type Note Facility 04-10-2024 Note Patient Education Cardiovascular Hypertension, Adult Hypertension is another name for high blood pressure. High blood pressure forces your heart to work harder to pump blood. This can cause problems over time. There are two numbers in a blood pressure reading. There is a top number (systolic) over a bottom number (diastolic). It is best to have a blood pressure that is below 120/80. What are the causes? The cause of this condition is not known. Some other conditions can lead to high blood pressure. What increases the risk? Some lifestyle factors can make you more likely to develop high blood pressure: ??? Smoking. ??? Not getting enough exercise or physical activity. ??? Being overweight. ??? Having too much fat, sugar, calories, or salt (sodium) in your diet. ??? Drinking too much alcohol. Other risk factors include: ??? Having any of these conditions: ? Heart disease. ? Diabetes. ? High cholesterol. ? Kidney disease. ? Obstructive sleep apnea. ??? Having a family history of high blood pressure and high cholesterol. ??? Age. The risk increases with age. ??? Stress. What are the signs or symptoms? High blood pressure may not cause symptoms. Very high blood pressure (hypertensive crisis) may cause: ??? Headache. ??? Fast or uneven heartbeats (palpitations). ??? Shortness of breath. ??? Nosebleed. ??? Vomiting or feeling like you may vomit (nauseous). ??? Changes in how you see. ??? Very bad chest pain. ??? Feeling dizzy. ??? Seizures. How is this treated? This condition is treated by making healthy lifestyle changes, such as: ? Eating healthy foods. ? Exercising more. ? Drinking less alcohol. ??? Your doctor may prescribe medicine if lifestyle changes do not help enough and if: ? Your top number is above 130. ? Your bottom number is above 80. ??? Your personal target blood pressure may vary. Follow these instructions at home: Eating and drinking ??? If told, follow the DASH eating plan. To follow this plan: ? Fill one half of your plate at each meal with fruits and vegetables. ? Fill one fourth of your plate at each meal with whole grains. Whole grains include whole-wheat pasta, brown rice, and whole-grain bread. ? Eat or drink low-fat dairy products, such as skim milk or low-fat yogurt. ? Fill one fourth of your plate at each meal with low-fat (lean) proteins. Low-fat proteins include fish, chicken without skin, eggs, beans, and tofu. ? Avoid fatty meat, cured and processed meat, or chicken with skin. ? Avoid pre-made or processed food. ??? Limit the amount of salt in your diet to less than 1,500 mg each day. ??? Do not drink alcohol if: ? Your doctor tells you not to drink. ? You are , may be , or are planning to become . ??? If you drink alcohol: ? Limit how much you have to: ? 0?1 drink a day for women. ? 0?2 drinks a day for men. ? Know how much alcohol is in your drink. In the [place] one drink equals one 12 oz bottle of beer (355 mL), one 5 oz glass of wine (148 mL), or one 1? oz glass of hard liquor (44 mL). Lifestyle ??? Work with your doctor to stay at a healthy weight or to lose weight. Ask your doctor what the best weight is for you. ??? Get at least 30 minutes of exercise that causes your heart to beat faster (aerobic exercise) most days of the week. This may include walking, swimming, or biking. ??? Get at least 30 minutes of exercise that strengthens your muscles (resistance exercise) at least 3 days a week. This may include lifting weights or doing Pilates. ??? Do not smoke or use any products that contain nicotine or tobacco. If you need help quitting, ask your doctor. ??? Check your blood pressure at home as told by your doctor. ??? Keep all follow-up visits. Medicines ??? Take bfhi-chx-avewged and prescription medicines only as told by your doctor. Follow directions carefully. ??? Do not skip doses of blood pressure medicine. The medicine does not work as well if you skip doses. Skipping doses also puts you at risk for problems. ??? Ask your doctor about side effects or reactions to medicines that you should watch for. Contact a doctor if: ??? You think you are having a reaction to the medicine you are taking. ??? You have headaches that keep coming back. ??? You feel dizzy. ??? You have swelling in your ankles. ??? You have trouble with your vision. Get help right away if: ??? You get a very bad headache. ??? You start to feel mixed up (confused). ??? You feel weak or numb. ??? You feel faint. ??? You have very bad pain in your: ? Chest. ? Belly (abdomen). ??? You vomit more than once. ??? You have trouble breathing. These symptoms may be an emergency. Get help right away. Call 911. ??? Do not wait to see if the symptoms will go away. ??? Do not drive yourself to the hospital. Summary ??? Hypertension is a (more content not included)... [facility] 08-08-2023 Note [id number] [facility] 08-03-2023 History of Presen t illness Narrative Patient escorted off unit and discharged at this time. No additional requests from teletypewriter installer. Director Medicare Sales reviewed discharge instructions with the patient. Reviewed medications, follow up appointments, and when to seek medical attention. Patient is aware of outpatient wound care BID 7 am and 7 pm. Wound care instructions given to the patient as well. Patient denies further questions. Patient's son will be driving her home. Patient requested to put medicated honey on wound. Director Medicare Sales spoke with Dr. Castañeda and he states to only use iodoform on wound. No medicated honey. Director Medicare Sales notified the patient who is agreeable. Postoperative day #3 Patient status post incision and drainage of a confined abscess associated with an incisional wound near the umbilicus patient has no specific complaints Vital signs are stable she is afebrile Wound is clean began to develop granulation tissue there is no fluctuance noted the cellulitic change of the anterior abdominal wall is completely resolved Assessment and plan patient is stable to be discharged from a surgical standpoint with outpatient wound care and follow-up with Dr. Olea in the next 7 to 10 days Director Medicare Sales arrived to bedside at this time after notification from [facility] Henny that patient had accidentally removed IV. Patient states they accidentally pulled IV out when they were using the restroom. Site assessed, no complications. Care ongoing. Patient is walking the halls independently at this time. Images from the original note were not included. [address] , [place], [place], [address] Progress Note Date: 08/03/2023 Patient name: Micheal Brice Date of admission: 07/31/2023 1:42 PM Date of : 1940 SUBJECTIVE/Last 24 hours update: Patient seen and examined at the bed side , no new acute events overnight and no new complains . Tolerating dressing changes. No n/v/d, VSS, afebrile. Notes from nursing staff and Consults had been reviewed, and the overnight progress had been checked with the nursing staff as well. REVIEW OF SYSTEMS: CONSTITUTIONAL: no fevers, no headcahes EYES: negative for blury vision HEENT: No headaches, No nasal congestion, no difficulty swallowing RESPIRATORY:negative for dyspnea, no wheezing, no Cough CARDIOVASCULAR: negative for chest pain, no palpitations GASTROINTESTINAL: no nausea, no vomiting, no change in bowel habits, no abdominal pain GENITOURINARY: negative for dysuria, no hematuria MUSCULOSKELETAL: no joint pains, no muscle aches, no swelling of joints or extremities NEUROLOGICAL: No Weakness or numbness PAST MEDICAL HISTORY: has a past medical history of Hx: UTI (urinary tract infection) and Hypertension. PAST SURGICAL HISTORY: has a past surgical history that includes Abdominal exploration surgery; Abdominal adhesion surgery; Total knee arthroplasty (Right); Foot surgery (Right); Colonoscopy; Tonsillectomy and adenoidectomy; [place] tooth extraction; Thumb amputation (Right); Finger replantation (Right); Cholecystectomy, laparoscopic (N/A, 06/20/2023); Umbilical hernia repair (N/A, 07/17/2023); Abdomen surgery (N/A, 07/17/2023); and Stomach surgery (N/A, 07/17/2023). SOCIAL HISTORY: reports that she has never smoked. She does not have any smokeless tobacco history on file. She reports that she does not drink alcohol and does not use drugs. TOBACCO: reports that she has never smoked. She does not have any smokeless tobacco history on file. ETOH: reports no history of alcohol use. Reviewed and non-contributory or as noted above and/or in the HPI FAMILY HISTORY: family history includes Alzheimer's Disease in her mother; Cancer in her father. Problem Relation Age of Onset Alzheimer's Disease Mother Cancer Father not sure what type Reviewed and non-contributory or as noted above and/or in the HPI HOME MEDICATIONS: Prior to Admission medications Medication Sig Start Date End Date Taking? Authorizing Provider cephALEXin (KEFLEX) 500 MG capsule Take 1 capsule by mouth 4 times daily Yes Jarek Strickland MD vitamin B-12 (CYANOCOBALAMIN) 1000 MCG tablet Take 1 tablet by mouth daily Jarek Strickland MD lactobacillus (CULTURELLE) capsule Take 1 capsule by mouth 2 times daily (with meals) 06/22/23 Jovan Oquendo MD amLODIPine (NORVASC) 5 MG tablet Take 1 tablet by mouth daily ProviderJarek MD ALLERGIES: Patient has no known allergies. OBJECTIVE: Vitals: 08/02/23 2306 08/02/23 2310 08/02/23 2336 08/03/23 0629 BP: 125/72 Pulse: 53 52 Resp: Temp: 97.4 F (36.3 C) 97 F (36.1 C) TempSrc: Temporal Temporal SpO2: 96% Weight: Height: Intake/Output Summary (Last 24 hours) at 08/03/2023 0633 Last data filed at 08/03/2023 0505 Gross per 24 hour Intake 3350.86 ml Output -- Net 3350.86 ml PHYSICAL EXAM: General Appearance Alert , awake , not in acute distress HEENT - Head is normocephalic, atraumatic. Lungs - Bilateral equal air entry , no wheezes, rales or rhonchi, aeration good Cardiovascular - Heart sounds are normal. Regular rhythm, normal rate without murmur, gallop or rub. Abdomen - Soft, nontender, nondistended, no masses or organomegaly, dressing is c/d/i Neurologic - There are no new focal motor or sensory deficits Skin - No bruising or bleeding on exposed skin area Extremities - No cyanosis, clubbing or edema DIAGNOSTICS: Laboratory Testing: See [facility] EMR for lab data No results found for this or any previous visit (from the past 24 hour(s)). Current Facility-Administered Medications Medication Dose Route Frequency Provider Last Rate Last Admin amLODIPine (NORVASC) tablet 5 mg 5 mg Oral Daily Luis Felipe Castañeda MD 0.9 % sodium chloride infusion IntraVENous Continuous Luis Felipe Castañeda MD 75 mL/hr at 08/03/23 0310 New Bag at 08/03/23 0310 sodium chloride flush 0.9 % injection 5-40 mL 5-40 mL IntraVENous 2 times per day Luis Felipe Castañeda MD 10 mL at 08/01/23 0930 sodium chloride flush 0.9 % injection 10 mL 10 mL IntraVENous PRN Luis Felipe Castañeda MD 0.9 % sodium chloride infusion IntraVENous PRN Luis Felipe Castañeda MD potassium chloride (KLOR-CON M) extended release tablet 40 mEq 40 mEq Oral PRN Luis Felipe Castañeda MD Or potassium bicarb-citric acid (EFFER-K) effervescent tablet 40 mEq 40 mEq Oral PRN Luis Felipe Castañeda MD Or potassium chloride 10 mEq/100 mL IVPB (Peripheral Line) 10 mEq IntraVENous PRN Luis Felipe Castañeda MD magnesium sulfate 2000 mg in 50 mL IVPB premix 2,000 mg IntraVENous PRN Luis Felipe Castañeda MD polyethylene glycol (GLYCOLAX) packet 17 g 17 g Oral Daily PRN Luis Felipe Castañeda MD acetaminophen (TYLENOL) tablet 650 mg 650 mg Oral Q6H PRN Luis Felipe Castañeda MD Or acetaminophen (TYLENOL) suppository 650 mg 650 mg Rectal Q6H PRN Luis Felipe Castañeda MD oxyCODONE-acetaminophen (PERCOCET) 5-325 MG per tablet 1 tablet 1 tablet Oral Q4H PRN Luis Felipe Castañeda MD 1 tablet at 08/02/23 2306 ondansetron (ZOFRAN) injection 4 mg 4 mg IntraVENous Q6H PRN Luis Felipe Castañeda MD piperacillin-tazobactam (ZOSYN) 3,375 mg in sodium chloride 0.9 % 50 mL IVPB (Xzub0Qru) 3,375 mg IntraVENous Q8H Luis Felipe Castañeda MD Stopped at 08/03/23 0353 clindamycin (CLEOCIN) 900 mg in dextrose 5 % 50 mL IVPB 900 mg IntraVENous Q8H Luis Felipe Castañeda MD Stopped at 08/03/23 0614 ASSESSMENT: Principal Problem: Abscess of postoperative wound of abdominal wall Resolved Problems: * No resolved hospital problems. * PLAN: Primary Problem(s): Abscess of postoperative wound of abdominal wall Condition is at treatment goal Treatment plan: Continue current treatment Imaging: no further imaging studies ordered today Medications: Continue current antibiotic: Clindamycin/Zosyn for now Medication Monitoring / High Risk Medications: none Monitor labs IVF for now GS is following Dispo pending Above plan discussed with the patient who agreed to the above plan Discussed care plan with nurse after getting their input. Please note that this chart was generated using voice recognition [employer] dictation software. Although every effort was made to ensure the accuracy of this automated digital media designer, some errors in digital media designer may have occurred. Radhika Magana MD 08/03/2023 6:33 AM Vitals and assessment complete at this time. See flowsheets for details. Patient is sitting up in the chair. HR is 52. Patient is A&O x4. Patient denies pain. Breathing is regular and unlabored. Lung sounds are clear. Abdomen is soft, tenderness noted near incision. Dressing to abdomen is clean, dry, and intact. Bowel sounds are active x4. Patient denies further needs at this time. Call light is within reach. Care ongoing. Dressing changed on abdomen at this time. Patient tolerated well. Denies any further needs or concerns at this time. Call light and over bed table within reach. Side rails up times two. Patient in bed, resting with eyes closed. Reassessment completed at this time. Vitals taken and documented. Patient encouraged to ask questions. Patient denies pain or complaints. PRN percocet given due to dressing change to be completed. Zosyn hung per orders. Call light and bed side table within reach. Side rails up times two. Son present in room at this time. All questions answered. Patient in chair, reading. Patient educated on medication to be given tonight and physician's orders to be completed. Patient stated understanding. Patient encouraged to ask questions. Patient denies of any questions at this time. Vitals taken and documented. See flow sheet for details. Assessment completed and documented. Patient alert, oriented x4. Calm, pleasant. Speech clear. Lung sounds clear throughout lung lobes. No cough noted. Abdomen round, soft, tenderness to palpation in Umbilical region. Bowel sounds active in all four quadrants. Trace non-pitting edema noted in bilateral lower extremities. Scattered abrasions and ecchymosis noted. Noted dressing to abdomen CDI. Patient denies of pain, chest pain, numbness, tingling, or shortness of breath. Patient denies needs or concerns at this time. Call light and over bed table in reach. Water pitcher refilled. Delayed entry Postoperative day #2 Patient is in good spirits Vital signs are stable she is afebrile Wound is clean the cellulitic change of the anterior abdomen is almost completely gone Assessment and plan continue with Nu Gauze changes twice a day make arrangements for outpatient wound care I suspect the patient shall be discharged tomorrow once the cellulitic changes completely resolved Spiritual Services Interventions [id number] 08/02/2023 Ignacio Rodaskamran Brice 83 y.o. year old female Encounter Summary Encounter Overview/Reason: (P) Initial Encounter Service Provided For: (P) Patient and family together Referral/Consult From: (P) Rounding Support System: (P) Family members Last Encounter : (P) 08/02/23 Complexity of Encounter: (P) Moderate Begin Time: (P) 1015 End Time : (P) 1040 Total Time Calculated: (P) 25 min Spiritual/Emotional needs Type: (P) Spiritual Support Assessment/Intervention/Outcome Assessment: (P) Calm Intervention: (P) Prayer (assurance of)/[place], Discussed belief system/jain practices/ly, Discussed illness injury and it s impact Outcome: (P) Encouraged, Engaged in conversation Progress Note SUBJECTIVE: FU related to denies fever or chills. OBJECTIVE: Vitals: TEMPERATURE: Current - Temp: 96.9 F (36.1 C); Max - Temp Av.1 F (36.2 C) Min: 96.9 F (36.1 C) Max: 97.3 F (36.3 C) RESPIRATIONS RANGE: Resp Av.3 Min: 14 Max: 18 PULSE RANGE: Pulse Av.6 Min: 46 Max: 63 BLOOD PRESSURE RANGE: Systolic (24hrs), Av , Min:103 , Max:128 ; Diastolic (24hrs), Av, Min:57, Max:71 PULSE OXIMETRY RANGE: SpO2 Av.6 % Min: 94 % Max: 97 % 24HR INTAKE/OUTPUT: Intake/Output Summary (Last 24 hours) at 08/02/2023 0813 Last data filed at 08/02/2023 0505 Gross per 24 hour Intake 2015.33 ml Output -- Net 2016.33 ml --- Exam: General: alert HEENT: Supple neck & negative Heart: Regular Lungs: clear to auscultation bilaterally & no retractions Abdomen: Wound being is noted Extremities: No edema Neuro: NonFocal --- Diagnostic Data: Lab Results Component Value Date WBC 10.2 08/02/2023 HGB 9.9 (L) 08/02/2023 PLT 222 08/02/2023 Lab Results Component Value Date BUN 18 08/02/2023 CREATININE 0.7 08/02/2023 NA 139 08/02/2023 K 4.2 08/02/2023 CALCIUM 8.8 08/02/2023 CL 107 08/02/2023 CO2 24 08/02/2023 LABGLOM 87 08/02/2023 Lab Results Component Value Date WBCUA 10 TO 20 06/02/2015 RBCUA 0 TO 2 06/02/2015 LEUKOCYTESUR MOD (A) 06/02/2015 GLUCOSEU NEGATIVE 06/02/2015 KETUA NEGATIVE 06/02/2015 PROTEINU NEGATIVE 06/02/2015 HGBUR NEGATIVE 06/02/2015 CASTUA NOT REPORTED 06/02/2015 BACTERIA FEW (A) 06/02/2015 YEAST NOT REPORTED 06/02/2015 No results found for: MYOGLOBIN , TROPONINT , CKTOTAL , CKMB , PROBNP CT ABDOMEN PELVIS W IV CONTRAST Additional Contrast? None Result Date: 07/31/2023 EXAMINATION: CT OF THE ABDOMEN AND PELVIS WITH CONTRAST 07/31/2023 1:54 pm TECHNIQUE: CT of the abdomen and pelvis was performed with the administration of intravenous contrast. Multiplanar reformatted images are provided for review. Automated exposure control, iterative reconstruction, and/or weight based adjustment of the mA/kV was utilized to reduce the radiation dose to as low as reasonably achievable. COMPARISON: None. HISTORY: ORDERING SYSTEM PROVIDED HISTORY: Post op wound infection, ?abscess TECHNOLOGIST PROVIDED HISTORY: Post op wound infection, ?abscess Decision Support Exception - unselect if not a suspected or confirmed emergency medical condition->Emergency Medical Condition (MA) FINDINGS: Lower Chest: No significant abnormalities. Left lower lobe calcific granuloma seen. Organs: Liver: Liver is normal. No focal lesions are seen. Spleen: Normal. Pancreas: Normal Gallbladder: Gallbladder is surgically absent with expected prominence of CBD.. Adrenal glands: Normal. No focal lesions are seen. Kidneys and ureters: Normal There is no hydronephrosis or calculi. Ureters are non-dilated. Abdominal aorta and branches: Normal in caliber. IVC and portal vein: Normal in caliber. GI/Bowel: Bowel loops are normal in wall-thickness and caliber. Scattered left-sided colonic diverticulosis is seen. No evidence of appendicitis. Peritoneum/Retroperitoneum: Normal PELVIS There is evidence of septated uterus. Enhancing finding at along the right lateral aspect of the uterus measures 2.2 cm, likely a fibroid. Bones/Soft Tissues: Degenerative changes are seen in the lumbar spine. No lytic or blastic lesions are seen. there is generalized body wall edema. There is seen periumbilical rim enhancing collection measuring 3.7 x 3.6 x 4.0 cm with surrounding soft tissue swelling. 1. Periumbilical rim enhancing collection measuring 3.7 x 3.6 x 4.0 cm with surrounding soft tissue swelling. 2. Septated uterus with probable fibroid. 3. Generalized body wall edema. 4. Left-sided colonic diverticulosis. ASSESSMENT: Principal Problem: Abscess of postoperative wound of abdominal wall Resolved Problems: * No resolved hospital problems. * Patient Active Problem List Diagnosis Date Noted Abscess of postoperative wound of abdominal wall 07/31/2023 Mild malnutrition (HCC) 07/18/2023 Hypertension 07/17/2023 PLAN: Plan is for antibiotics until cellulitis resolves then home with oral antibiotics and wound care. Critical Care Time: 0 MIPS Advanced Care Planning documentation: [x] I have confirmed that the patient's Advance Care Plan is present, Code Status is documented, or surrogate decision maker is listed in the patient's medical record [If yes , STOP HERE] [] The patient's Advance Care Plan is NOT present because: [] I confirmed today that the patient does not wish or was not able to name a surrogate decision maker or provide and advance care plan. [] Hospice care is currently being provided or has been provided within the calendar year. [] I did NOT confirm today the presence of an Advance Care Plan or surrogate decision maker documented within the patient's medical record. [DOES NOT SATISFY [facility] PERFORMANCE] Michelle Cox MD , MMary. Vitals and assessment complete at this time. See flowsheets for details. HR is 46. Patient denies pain. Patient is A&O x4. Breathing is regular and unlabored. Abdomen is soft. Bowel sounds are active x4. Tenderness noted around incision. Dressing to abdomen is clean, dry, and intact. Minimal redness noted to skin surrounding dressing. Patient reports overall feeling better. Patient denies further needs. Care ongoing. Dressing change completed at this time. Patient tolerated well. Patient's gown changed with assistance. Denies any further needs or concerns at this time. Trash taken out of room. Call light and over bed table within reach. Side rails up times two. Patient awake, in bed. Reassessment completed at this time. Vitals taken and documented. Patient encouraged to ask questions. Patient denies pain or complaints. PRN pain medication given due to pending wound dressing change. Call light and bed side table within reach. Side rails up times two. IV fluids changed. Antibiotic hung. Patient up to bathroom independently at this time. Denies any further needs or concerns at this time. Patient in chair, watching television. Son present at bedside. Patient educated on medication to be given tonight and physician's orders to be completed. Patient stated understanding. Patient encouraged to ask questions. Patient denies of any questions at this time. Vitals taken and documented. See flow sheet for details. Assessment completed and documented. Patient alert, oriented x4. Calm, pleasant. Speech clear. Lung sounds clear throughout lung lobes. No cough noted. Abdomen round, soft, tenderness to palpation in umbilical region. Noted dressing to abdomen CDI. Bowel sounds active in all four quadrants. Non-pitting edema noted in bilateral lower extremities. Scattered abrasions and ecchymosis noted. Patient denies of pain, chest pain, numbness, tingling, or shortness of breath. Patient denies needs or concerns at this time. Call light and over bed table in reach. Dressing change completed at this time per order. Packing removed and replaced with new iodoform packing and covered with dry dressing of ABD and tape. Patient tolerated fairly well. Care ongoing. Delayed entry Postoperative day #1 Patient is in good spirits she states that the incisional pain has almost completely resolved Vital signs are stable she is afebrile The cellulitic changes still apparent on the anterior abdomen the wound itself is clean and dry Assessment and plan I would continue to treat the patient with IV antibiotics continue the dressing changes twice a day basis once the cellulitic change and resolved the patient can be discharged home on an outpatient basis Progress Note SUBJECTIVE: FU related to denies pain. Feels pretty good. Wants to walk. OBJECTIVE: Vitals: TEMPERATURE: Current - Temp: 96.8 F (36 C); Max - Temp Av.2 F (36.2 C) Min: 96.8 F (36 C) Max: 97.9 F (36.6 C) RESPIRATIONS RANGE: Resp Av.6 Min: 10 Max: 18 PULSE RANGE: Pulse Av.4 Min: 50 Max: 63 BLOOD PRESSURE RANGE: Systolic (24hrs), Av , Min:109 , Max:161 ; Diastolic (24hrs), Av, Min:58, Max:85 PULSE OXIMETRY RANGE: SpO2 Av.7 % Min: 90 % Max: 99 % 24HR INTAKE/OUTPUT: Intake/Output Summary (Last 24 hours) at 08/01/2023 0748 Last data filed at 08/01/2023 0249 Gross per 24 hour Intake 1182.4 ml Output -- Net 1182.4 ml --- Exam: General: alert HEENT: Supple neck & negative Heart: Regular Lungs: clear to auscultation bilaterally & no retractions Abdomen: Normal & soft, No tenderness and BS normal Extremities: No edema Neuro: NonFocal --- Diagnostic Data: Lab Results Component Value Date WBC 11.9 (H) 08/01/2023 HGB 11.5 (L) 08/01/2023 PLT 240 08/01/2023 Lab Results Component Value Date BUN 18 08/01/2023 CREATININE 0.6 08/01/2023 NA 138 08/01/2023 K 4.6 08/01/2023 CALCIUM 9.2 08/01/2023 CL 104 08/01/2023 CO2 23 08/01/2023 LABGLOM >90 08/01/2023 Lab Results Component Value Date WBCUA 10 TO 20 06/02/2015 RBCUA 0 TO 2 06/02/2015 LEUKOCYTESUR MOD (A) 06/02/2015 GLUCOSEU NEGATIVE 06/02/2015 KETUA NEGATIVE 06/02/2015 PROTEINU NEGATIVE 06/02/2015 HGBUR NEGATIVE 06/02/2015 CASTUA NOT REPORTED 06/02/2015 BACTERIA FEW (A) 06/02/2015 YEAST NOT REPORTED 06/02/2015 No results found for: MYOGLOBIN , TROPONINT , CKTOTAL , CKMB , PROBNP CT ABDOMEN PELVIS W IV CONTRAST Additional Contrast? None Result Date: 07/31/2023 EXAMINATION: CT OF THE ABDOMEN AND PELVIS WITH CONTRAST 07/31/2023 1:54 pm TECHNIQUE: CT of the abdomen and pelvis was performed with the administration of intravenous contrast. Multiplanar reformatted images are provided for review. Automated exposure control, iterative reconstruction, and/or weight based adjustment of the mA/kV was utilized to reduce the radiation dose to as low as reasonably achievable. COMPARISON: None. HISTORY: ORDERING SYSTEM PROVIDED HISTORY: Post op wound infection, ?abscess TECHNOLOGIST PROVIDED HISTORY: Post op wound infection, ?abscess Decision Support Exception - unselect if not a suspected or confirmed emergency medical condition->Emergency Medical Condition (MA) FINDINGS: Lower Chest: No significant abnormalities. Left lower lobe calcific granuloma seen. Organs: Liver: Liver is normal. No focal lesions are seen. Spleen: Normal. Pancreas: Normal Gallbladder: Gallbladder is surgically absent with expected prominence of CBD.. Adrenal glands: Normal. No focal lesions are seen. Kidneys and ureters: Normal There is no hydronephrosis or calculi. Ureters are non-dilated. Abdominal aorta and branches: Normal in caliber. IVC and portal vein: Normal in caliber. GI/Bowel: Bowel loops are normal in wall-thickness and caliber. Scattered left-sided colonic diverticulosis is seen. No evidence of appendicitis. Peritoneum/Retroperitoneum: Normal PELVIS There is evidence of septated uterus. Enhancing finding at along the right lateral aspect of the uterus measures 2.2 cm, likely a fibroid. Bones/Soft Tissues: Degenerative changes are seen in the lumbar spine. No lytic or blastic lesions are seen. there is generalized body wall edema. There is seen periumbilical rim enhancing collection measuring 3.7 x 3.6 x 4.0 cm with surrounding soft tissue swelling. 1. Periumbilical rim enhancing collection measuring 3.7 x 3.6 x 4.0 cm with surrounding soft tissue swelling. 2. Septated uterus with probable fibroid. 3. Generalized body wall edema. 4. Left-sided colonic diverticulosis. ASSESSMENT: Principal Problem: Abscess of postoperative wound of abdominal wall Resolved Problems: * No resolved hospital problems. * Patient Active Problem List Diagnosis Date Noted Abscess of postoperative wound of abdominal wall 07/31/2023 Mild malnutrition (HCC) 07/18/2023 Hypertension 07/17/2023 PLAN: Therapy. Ambulate. Continue antibiotics. Surgery already performed. Awaiting cultures. Critical Care Time: 0 [facility] Advanced Care Planning documentation: [x] I have confirmed that the patient's Advance Care Plan is present, Code Status is documented, or surrogate decision maker is listed in the patient's medical record [If yes , STOP HERE] [] The patient's Advance Care Plan is NOT present because: [] I confirmed today that the patient does not wish or was not able to name a surrogate decision maker or provide and advance care plan. [] Hospice care is currently being provided or has been provided within the calendar year. [] I did NOT confirm today the presence of an Advance Care Plan or surrogate decision maker documented within the patient's medical record. [DOES NOT SATISFY [facility] PERFORMANCE] Michelle Cox MD , M.D. Comprehensive Nutrition Assessment Type and Reason for Visit: Initial Nutrition Recommendations/Plan: Continue current diet. Continue probiotic. Malnutrition Assessment: Malnutrition Status: At risk for malnutrition (Comment) (Increased needs for wound healing) (08/01/23 0802) Context: Acute Illness Findings of the 6 clinical characteristics of malnutrition: Energy Intake: No significant decrease in energy intake Weight Loss: No significant weight loss Body Fat Loss: No significant body fat loss Muscle Mass Loss: No significant muscle mass loss Fluid Accumulation: No significant fluid accumulation Archery Instructor Strength: Not Performed Nutrition Assessment: Increased nutrient needs r/t acute injury/trauma AEB surgical site infection. Pt underwent cholecystectomy and hernia repair 2 weeks ago and admitted for infection at surgical site. Pt reported a good appetite and no N/V/D. Active b/s, no edema noted. Pt reported weight prior to surgery 198# and is trying to lose weight. Director Medicare Sales educated pt on importance of maintaining wt until incision is healed and eating protein foods first to promote good healing. Pt was receptive. Pt also noted she has been working to follow nutrition recommendations provided post-op 2 weeks ago. Nutrition Related Findings: active b/s, no edema noted. Wound Type: Surgical Incision Current Nutrition Intake & Therapies: Average Supplements Intake: None Ordered ADULT DIET; Regular Anthropometric Measures: Height: 157.5 cm (5' 2 ) [place] Body Weight (IBW): 110 lbs (50 kg) Admission Body Weight: 87 kg (191 lb 12.8 oz) Current Body Weight: 87 kg (191 lb 12.8 oz), 174.4 % IBW. Weight Source: Bed Scale Current BMI (kg/m2): 35.1 Usual Body Weight: 89.8 kg (198 lb) (prior to surgery 2 weeks ago) % Weight Change (Calculated): -3.1 Weight Adjustment For: No Adjustment BMI Categories: Obese Class 2 (BMI 35.0 -39.9) Estimated Daily Nutrient Needs: Energy Requirements Based On: Kcal/kg Weight Used for Energy Requirements: Current Energy (kcal/day): 2194-9964 (15-18) Weight Used for Protein Requirements: [place] Protein (g/day): 75-90 (1.5-1.8) Method Used for Fluid Requirements: 1 ml/kcal Fluid (ml/day): 1600 Nutrition Diagnosis: Increased nutrient needs related to acute injury/trauma as evidenced by other (comment) (surgical site infection) Hematology: Recent Labs 07/31/23 1415 08/01/23 0545 WBC 11.2 11.9* HGB 11.7* 11.5* HCT 36.6 35.6* Chemistry: Recent Labs 07/31/23 14108/01/23 0545 NA 138 138 K 4.5 4.6 CL 101 104 CO2 26 23 GLUCOSE 102* 142* BUN 24* 18 CREATININE 0.7 0.6 CALCIUM 9.6 9.2 Recent Labs 08/01/23 0545 AST 15 ALT 11 ALKPHOS 129* BILITOT 0.3 No results found for: [id number] Nutrition Interventions: Food and/or Nutrient Delivery: Continue Current Diet Nutrition Education/Counseling: Education initiated Coordination of Nutrition Care: Continue to monitor while inpatient Plan of Care discussed with: patient Goals: Goals: Meet at least 75% of estimated needs Nutrition Monitoring and Evaluation: Behavioral-Environmental Outcomes: Knowledge or Skill Food/Nutrient Intake Outcomes: Food and Nutrient Intake Physical Signs/Symptoms Outcomes: Biochemical Data, Weight Discharge Planning: Too soon to determine Yessy Dyer [employer] Sales Representative Contact: [phone] Patient's son, Noe, called for an update. Update given after confirming with pt that it was ok for teletypewriter installer to speak with him. Admission assessment complete, vitals reviewed. Patient is alert and orientedx4, on room air. Patient complains of abdominal tenderness at the umbilicus. Abdomen is firm, red, with thin opaque drainage noted. No odor. No fever. Surgery checklist completed. Patient stated she used surgical scrub at home prior to coming to the hospital. Patient oriented to room. Call light within reach. Care ongoing. documented in this encounter [facility] 08-03-2023 Hospital Discharg e instructions Chloe Torres RN - 08/03/2023 5:27 PM EDT Wound care instructions: Follow up with outpatient care for dressing changes. Wound care instructions per Dr. Castañeda: Dressing changes BID. Wound may be cleansed with soap and water. Patient may shower. No baths. Pack with Iodoform. Cover with small dry dressing. Chloe Torres RN - 08/03/2023 5:26 PM EDT Activity as tolerated Chloe Torres RN - 08/03/2023 5:26 PM EDT Good nutrition is important when healing from an illness, injury, or surgery. Follow any nutrition recommendations given to you during your hospital stay. If you were given an oral nutrition supplement while in the hospital, continue to take this supplement at home. You can take it with meals, in-between meals, and/or before bedtime. These supplements can be purchased at most local grocery stores, pharmacies, and chain [employer]-stores. If you have any questions about your diet or nutrition, call the hospital and ask for the dietitian. General diet, encourage fluids Radhika Magana MD - 08/03/2023 4:48 AM EDT Continuity of Care Form Patient Name: Micheal Brice : 1940 Admit date: 07/31/2023 Discharge date: Code Status Order: Full Code Advance Directives: Advance Care Flowsheet Documentation Date/Time Healthcare Directive Type of Healthcare Directive Copy in Chart Healthcare Agent Appointed Healthcare Agent's Name Healthcare Agent's Phone Number 07/31/231945 Yes, patient has an advance directive for healthcare treatment Living will;Durable power of comber setter for health care No, copy requested from family -- -- -- Admitting Physician: Michelle Cox MD PCP: Camila Carlos APRN - NP Discharging Nurse: Discharging Hospital Unit/Room#: 0322/0322-01 Discharging Unit Phone Number: Emergency Contact: Extended Emergency Contact Information Primary Emergency Contact: Iain Hancock Mobile Relation: Child Secondary Emergency Contact: Alejandro Schwartz Address: Relation: Child Past Surgical History: Past Surgical History: Procedure Laterality Date ABDOMEN SURGERY N/A 07/17/2023 UMBILECTOMY OMPHALECTOMY performed by Ramon Olea MD at [facility] OR ABDOMINAL ADHESION SURGERY ABDOMINAL EXPLORATION SURGERY CHOLECYSTECTOMY, LAPAROSCOPIC N/A 06/20/2023 CHOLECYSTECTOMY LAPAROSCOPIC performed by Ramon Olea MD at [facility] OR COLONOSCOPY FINGER REPLANTATION Right index with ori placement and removal FOOT SURGERY Right dislocation STOMACH SURGERY N/A 07/17/2023 SINGLE ANASTOMOSIS OF TRANSVERSE COLON performed by Ramon Olea MD at [facility] OR THUMB AMPUTATION Right partial TONSILLECTOMY AND ADENOIDECTOMY TOTAL KNEE ARTHROPLASTY Right UMBILICAL HERNIA REPAIR N/A 07/17/2023 HERNIA UMBILICAL REPAIR - REVISION UMBILICAL INCISION, Ricther hernia repair with tranverse colon anastomosis performed by Ramon Olea MD at [facility] OR WISDOM TOOTH EXTRACTION Immunization History: There is no immunization history on file for this patient. Active Problems: Patient Active Problem List Diagnosis Code Hypertension I10 Mild malnutrition (HCC) E44.1 Abscess of postoperative wound of abdominal wall T81.49XA Isolation/Infection: Isolation No Isolation Patient Infection Status None to display Nurse Assessment: Last Vital Signs: BP 125/72 Pulse 53 Temp 97.4 F (36.3 C) (Temporal) Resp 16 Ht 1.575 m (5' 2 ) Wt 90.4 kg (199 lb 4.8 oz) SpO2 96% BMI 36.45 kg/m Last documented pain score (0-10 scale): Pain Level: 0 Last Weight: Wt Readings from Last 1 Encounters: 08/02/23 90.4 kg (199 lb 4.8 oz) Mental Status: {IP PT MENTAL STATUS:62272} IV Access: { MALAIKA IV ACCESS:480852074} Nursing Mobility/ADLs: Walking {CHP DME ADLs:742643593} Transfer {CHP DME ADLs:631959933} Bathing {CHP DME ADLs:139603951} Dressing {CHP DME ADLs:775328037} Toileting {CHP DME ADLs:087450466} Feeding {CHP DME ADLs:221345866} Lens Finisher {CHP DME ADLs:304613553} Med Delivery { MALAIKA MED Delivery:569946878} Wound Care Documentation and Therapy: Incision 07/31/23 Abdomen Lower;Medial (Active) Dressing Status New dressing applied 08/03/23 0020 Dressing Change Due 08/03/23 08/03/23 0020 Incision Cleansed Soap and water 08/03/23 0020 Dressing/Treatment Packing/iodaform packing;Non-adherent 08/03/23 0020 Margins Approximated 08/03/2319 Incision Assessment Dry;Erythema 08/03/2319 Drainage Amount Scant (moist but unmeasurable) 08/03/2319 Drainage Description Clear;Thin 08/02/23 1215 Odor None 08/03/2319 Chelsie-incision Assessment Dry/flaky;Intact;Warm 08/03/23 002 Number of days: 2 Elimination: Continence: Bowel: {YES / NO:} Bladder: {YES / NO:} Urinary Catheter: {Urinary Catheter:545944428} Colostomy/Ileostomy/Ileal Conduit: {YES / NO:} Date of Last BM: Intake/Output Summary (Last 24 hours) at 08/03/2023 0448 Last data filed at 08/02/2023 1845 Gross per 24 hour Intake 2816.33 ml Output -- Net 2816.33 ml I/O last 3 completed shifts: In: 2816.3 [P.O.:800; I.V.:1637; IV Piggyback:379.3] Out: - Safety Concerns: { MALAIKA Safety Concerns:773048545} Impairments/Disabilities: { MALAIKA Impairments/Disabilities:978841 273} Nutrition Therapy: Current Nutrition Therapy: { MALAIKA Diet List:157460966} Routes of Feeding: {[facility] Other Feedings:946260950} Liquids: {[facility] liquid thickness:94501} Daily Fluid Restriction: {[facility] DME Yes amt example:267565456} Last Modified Barium Swallow with Video (Video Swallowing Test): {Done Not Done Date:} Treatments at the Time of Hospital Discharge: Respiratory Treatments: Oxygen Therapy: {Therapy; copd oxygen:12363} Ventilator: { CC Vent List:834019054} Rehab Therapies: {THERAPEUTIC INTERVENTION:2455328070} Weight Bearing Status/Restrictions: {[facility] Weight Bearin} Other Medical Equipment (for information only, NOT a DME order): {EQUIPMENT:896434924} Other Treatments: Patient's personal belongings (please select all that are sent with patient): {[facility] DME Belongings:515321984} RN SIGNATURE: {Esignature:662444109} CASE MANAGEMENT/SOCIAL WORK SECTION Inpatient Status Date: Readmission Risk Assessment Score: Readmission Risk Risk of Unplanned Readmission: 11 Discharging to Facility/ Agency Name: Address: Phone: Fax: Dialysis Facility (if applicable) Name: Address: Dialysis Schedule: Phone: Fax: Dot Compliance Manager/Social Scientist signature: {Esignature:310494975} PHYSICIAN SECTION Prognosis: {Prognosis:4621647828} Condition at Discharge: { Patient Condition:558701853} Rehab Potential (if transferring to Rehab): {Prognosis:2662529795} Recommended Labs or Other Treatments After Discharge: Physician Certification: I certify the above information and transfer of Micheal Brice is necessary for the continuing treatment of the diagnosis listed and that she requires {Admit to Appropriate Level of Care:80826} for {GREATER/LESS:895790800} 30 days. Update Admission H&P: {CHP DME Changes in HandP:708718680} PHYSICIAN SIGNATURE: The following attachments cannot be sent through Care Everywhere.Abscess: Skin (Congolese)documented in this encounter [facility] 07-25-2023 Note [id number] [facility] 07-18-2023 History of Presen t illness Narrative Patient discharged home at this time. Reviewed discharge instructions with patient. Patient aware of need to picker/puller prescription. Reviewed new medication and side effects to monitor for. Patient aware of date/time of follow up appointment. Instructed to follow a low fat diet. Aware of activity restrictions. Instructed to shower with use of CHG soap over incision. Bottle of CHG soap given to patient. Educated on signs/symptoms of infection to monitor for and provided Dr. Olea's phone number in case of need. Educational handout given on Preventing Surgical site infections and Abdominal Hernia Repair: post-op. Questions answered. Verbalizes understanding. Copy of discharge instructions given to patient. S. Complains of minimal soreness. Passing flatus, no nausea, tolerating regular diet. O. BP 118/84 Pulse 65 Temp 97.6 F (36.4 C) (Temporal) Resp 17 Ht 1.575 m (5' 2 ) Wt 85 kg (187 lb 6.3 oz) SpO2 97% BMI 34.27 kg/m Intake/Output Summary (Last 24 hours) at 07/18/2023 1426 Last data filed at 07/18/2023 1405 Gross per 24 hour Intake 4386.8 ml Output 1800 ml Net 2586.8 ml CBC with Differential: Lab Results Component Value Date/Time WBC 11.6 07/18/2023 05:54 AM RBC 3.71 07/18/2023 05:54 AM HGB 10.7 07/18/2023 05:54 AM HCT 33.5 07/18/2023 05:54 AM PLT See Reflexed IPF Result 07/18/2023 05:54 AM MCV 90.3 07/18/2023 05:54 AM MCH 28.8 07/18/2023 05:54 AM MCHC 31.9 07/18/2023 05:54 AM RDW 12.5 07/18/2023 05:54 AM LYMPHOPCT 40 07/18/2023 05:54 AM MONOPCT 8 07/18/2023 05:54 AM EOSPCT 1 07/18/2023 05:54 AM BASOPCT 0 07/18/2023 05:54 AM MONOSABS 0.88 07/18/2023 05:54 AM LYMPHSABS 2.60 06/02/2015 07:47 AM EOSABS 0.06 07/18/2023 05:54 AM BASOSABS <0.03 07/18/2023 05:54 AM DIFFTYPE NOT REPORTED 06/02/2015 07:47 AM CMP: Lab Results Component Value Date/Time NA 138 07/18/2023 05:54 AM K 4.4 07/18/2023 05:54 AM CL 108 07/18/2023 05:54 AM CO2 24 07/18/2023 05:54 AM BUN 11 07/18/2023 05:54 AM CREATININE 0.6 07/18/2023 05:54 AM GFRAA >60 06/02/2015 07:47 AM LABGLOM >60 06/02/2015 07:47 AM GLUCOSE 135 07/18/2023 05:54 AM CALCIUM 8.6 07/18/2023 05:54 AM BILITOT 0.5 07/18/2023 05:54 AM ALKPHOS 85 07/18/2023 05:54 AM AST 16 07/18/2023 05:54 AM ALT 17 07/18/2023 05:54 AM BMP: Lab Results Component Value Date/Time NA 138 07/18/2023 05:54 AM K 4.4 07/18/2023 05:54 AM CL 108 07/18/2023 05:54 AM CO2 24 07/18/2023 05:54 AM BUN 11 07/18/2023 05:54 AM CREATININE 0.6 07/18/2023 05:54 AM CALCIUM 8.6 07/18/2023 05:54 AM GFRAA >60 06/02/2015 07:47 AM LABGLOM >60 06/02/2015 07:47 AM GLUCOSE 135 07/18/2023 05:54 AM She is alert and in not apparent distress. She is walking around with no assistance Lungs - CTA Heart - RRR Abdomen - Soft, good bowel sounds* Wound - dressing intact IMP/PLAN 1) POD#1, Repair Krishnamurthy's hernia and closure colotomy. 2) She looks great and would like to be discharged. 3) Will go ahead and let her go Pt ambulating in medel at this time. Comprehensive Nutrition Assessment Type and Reason for Visit: Initial, Patient Education Nutrition Recommendations/Plan: Low fat eating Encourage protein foods Education on low fat post ghislaine Malnutrition Assessment: Malnutrition Status: Mild malnutrition (07/18/23 0803) Context: Acute Illness Findings of the 6 clinical characteristics of malnutrition: Energy Intake: Mild decrease in energy intake (Comment) Weight Loss: Greater than 5% over 1 month Body Fat Loss: No significant body fat loss Muscle Mass Loss: No significant muscle mass loss Fluid Accumulation: Mild Extremities Archery Instructor Strength: Not Performed Nutrition Assessment: Food and nutrition related knowledge deficit r/t altered GI status, AEB recent cholecystectomy without education. Now post incarcerated ventral hernia repair with increased nutrient needs. >5% weight losses in last month with events placing her at mild malnutrition. Tolerating PO thus far. Will provide with education for lower fat considerations for discharge. Nutrition Related Findings: active b/s, no edema. Wound Type: Surgical Incision Current Nutrition Intake & Therapies: Average Meal Intake: Unable to assess (no PO records) Average Supplements Intake: None Ordered ADULT DIET; Regular Anthropometric Measures: Height: 157.5 cm (5' 2 ) [place] Body Weight (IBW): 110 lbs (50 kg) Admission Body Weight: 88 kg (194 lb) Current Body Weight: 85 kg (187 lb 6.3 oz), 170.4 % IBW. Weight Source: Bed Scale Current BMI (kg/m2): 34.3 Usual Body Weight: 89.9 kg (198 lb 4.8 oz) (a month ago) % Weight Change (Calculated): -5.5 Weight Adjustment For: No Adjustment BMI Categories: Obese Class 1 (BMI 30.0-34.9) Estimated Daily Nutrient Needs: Energy Requirements Based On: Kcal/kg Weight Used for Energy Requirements: Current Energy (kcal/day): 6479-0242 (18-22) Weight Used for Protein Requirements: [place] Protein (g/day): 65-75 (1.3-1.5) Method Used for Fluid Requirements: 1 ml/kcal Fluid (ml/day): 1900 Nutrition Diagnosis: Food & Nutrition-related knowledge deficit related to altered GI structure as evidenced by other (comment) (recent cholecystectomy) Lab Results Component Value Date NA 138 07/18/2023 K 4.4 07/18/2023 CL 108 (H) 07/18/2023 CO2 24 07/18/2023 BUN 11 07/18/2023 CREATININE 0.6 07/18/2023 GLUCOSE 135 (H) 07/18/2023 CALCIUM 8.6 07/18/2023 BILITOT 0.5 07/18/2023 ALKPHOS 85 07/18/2023 AST 16 07/18/2023 ALT 17 07/18/2023 LABGLOM >60 06/02/2015 GFRAA >60 06/02/2015 No results found for: LABA1C No results found for: VITD25 Nutrition Interventions: Food and/or Nutrient Delivery: Continue Current Diet Nutrition Education/Counseling: Education initiated Coordination of Nutrition Care: Continue to monitor while inpatient Plan of Care discussed with: patient Goals: Goals: Meet at least 75% of estimated needs Nutrition Monitoring and Evaluation: Behavioral-Environmental Outcomes: None Identified Food/Nutrient Intake Outcomes: Food and Nutrient Intake Physical Signs/Symptoms Outcomes: Biochemical Data Discharge Planning: No discharge needs at this time Yusuf Monson RD, AMANUEL Contact: [phone] Director Medicare Sales to bedside to complete morning assessment. Upon entry to room, pt sitting up in chair, respirations even and unlabored while on room air. Vitals obtained and assessment completed, see flow sheet for details. Pt denies any pain at this time. Pt denies needs from teletypewriter installer at this time. Call light in reach. Care ongoing. Patient sitting up in chair with son at bedside. Vitals and assessment completed as charted. Patient denies pain. Abdominal dressing is clean, dry, and intact. Patient and son, Iain, had questions regarding surgery. Son's contact information was also updated. All questions answered. Patient denies any further needs. Call light is within reach. Care ongoing. Hospitalist consult completed at this time. Ashley AGUAYO notified of consult. Dr. Cox added to patient's care team. [facility] with RN and belongings. Staff transferred patient from cart to bed, pt tolerated well. Bedside report given to SARKIS Dunlap. Vitals stable, questions answered. Discharge Criteria Inpatients must meet Criteria 1 through 7. All other patients are either YES or N/A. If a NO is chosen then Anesthesia or Surgeon must be notified. 1. Minimum 30 minutes after last dose of sedative medication. Yes 2. Systolic BP between 90 - 160. Diastolic BP between 60 - 90. Yes 3. Pulse between 60 - 120 Yes 4. Respirations between 8 - 25. Yes 5. SpO2 92% - 100%. Yes 6. Able to cough and swallow or return to baseline function. Yes 7. Alert and oriented or return to baseline mental status. Yes 8. Demonstrates controlled, coordinated movements, ambulates with steady gait, or return to baseline activity function. N/A 9. Minimal or no pain or nausea, or at a level tolerable and acceptable to patient. N/A 10. Takes and retains oral fluids as allowed. N/A 11. Procedural / perioperative site stable. Minimal or no bleeding. N/A 12. If GI endoscopy procedure, minimal or no abdominal distention or passing flatus. N/A 13. Written discharge instructions and emergency telephone number provided. N/A 14. Accompanied by a responsible adult. N/A Patient admitted to the floor at this time. Patient located in room 327. Report received from Elba DOCKERY at the bedside. Patient transferred to the bed at this time with maximum assistance with a slide transfer. Vital sign and head to toe assessment completed at this time, see flowsheets for more details. Patient denies of pain at this time. Admission navigator completed at this time. Patient is A&O x4. Dressing to abdomen clean, dry and intact. Patient oriented to the call light system at this time. White board completed. Call light and bedside table within reach. Bed wheels locked. Bed in lowest position. Bed alarm on. Attempted to call Iain again to give an update. Phone rings busy. Attempted to call Iain x2 to update that patient was staying overnight. Patient instructed on the pre-operative, intra-operative, and post-operative process. Patient instructed on NPO status. Medication instructions and pre operative instruction sheet reviewed with the patient. CHG skin prep instructions reviewed with patient. Patient states she didn't receive the surgical soap from the office. Instructed pt to use anti bacterial soap and shower the night before and morning of surgery. Instructed pt to stop taking all OTC vitamins 7 days prior to surgery and to take amlodipine with a small sip of water prior to arriving to the hospital the day of surgery. Patient states she was not aware she needed to have someone with her for the first 24 hours after discharge. Patient states she will work on making arrangements to have someone stay with her for 24 hours after surgery. Attempted PAT phone call; no answer; unable to leave a message. NO voicemail set up. documented in this encounter [facility] 07-18-2023 Hospital course Narrative Discharge Summary Date: 07/18/2023 Patient Name: Micheal Brice Date of : 1940 Age: 83 y.o. Admit Date: 07/17/2023 Discharge Date: 07/18/2023 Discharge Condition: Good Admission Diagnosis Wound dehiscence [T81.30XA];Incarcerated umbilical hernia [K42.0] Discharge Diagnosis Principal Problem: Incarcerated umbilical hernia Active Problems: Wound dehiscence Incarcerated ventral hernia Hypertension Mild malnutrition (HCC) Resolved Problems: * No resolved hospital problems. * Hospital Stay Narrative of Hospital Course: Admitted for revision of umbilicus. Found to have Krishnamurthy's hernia. Colon was repair and abdominal incision close. She did very well and was discharge POD#1 Consultants: IP CONSULT TO HOSPITALIST Surgeries/procedures Performed: Repair ventral (umbilical) hernia, repair of colon. Treatments: Surgery Discharge Plan/Disposition: Home Hospital/Incidental Findings Requiring Follow Up: Patient Instructions: Diet: Renal Diet Activity:No Heavy Lifting and No Driving While on Analgesics For number of days (if applicable): Other Instructions: Provider Follow-Up: No follow-ups on file. Significant Diagnostic Studies: Recent Labs: Admission on 07/17/2023 Sodium Date: 07/18/2023 Value: 138 Ref range: 135 - 144 mmol/L Status: Final Potassium Date: 07/18/2023 Value: 4.4 Ref range: 3.7 - 5.3 mmol/L Status: Final Chloride Date: 07/18/2023 Value: 108 (H) Ref range: 98 - 107 mmol/L Status: Final CO2 Date: 07/18/2023 Value: 24 Ref range: 20 - 31 mmol/L Status: Final Anion Gap Date: 07/18/2023 Value: 6 (L) Ref range: 9 - 17 mmol/L Status: Final Glucose Date: 07/18/2023 Value: 135 (H) Ref range: 70 - 99 mg/dL Status: Final BUN Date: 07/18/2023 Value: 11 Ref range: 8 - 23 mg/dL Status: Final Creatinine Date: 07/18/2023 Value: 0.6 Ref range: 0.5 - 0.9 mg/dL Status: Final Est, Glom Filt Rate Date: 07/18/2023 Value: >90 Ref range: >60 mL/min/1.73m2 Status: Final Comment: These results are not intended for [...] following therapy that affects renal tubular secretion. Bun/Cre Ratio Date: 07/18/2023 Value: 18 Ref range: 9 - 20 Status: Final Calcium Date: 07/18/2023 Value: 8.6 Ref range: 8.6 - 10.4 mg/dL Status: Final Total Protein Date: 07/18/2023 Value: 5.4 (L) Ref range: 6.4 - 8.3 g/dL Status: Final Albumin Date: 07/18/2023 Value: 3.5 Ref range: 3.5 - 5.2 g/dL Status: Final Albumin/Globulin Ratio Date: 07/18/2023 Value: 1.8 Ref range: 1.0 - 2.5 Status: Final Total Bilirubin Date: 07/18/2023 Value: 0.5 Ref range: 0.3 - 1.2 mg/dL Status: Final Alkaline Phosphatase Date: 07/18/2023 Value: 85 Ref range: 35 - 104 U/L Status: Final ALT Date: 07/18/2023 Value: 17 Ref range: 5 - 33 U/L Status: Final AST Date: 07/18/2023 Value: 16 Ref range: <32 U/L Status: Final WBC Date: 07/18/2023 Value: 11.6 (H) Ref range: 3.5 - 11.3 k/uL Status: Final RBC Date: 07/18/2023 Value: 3.71 (L) Ref range: 3.95 - 5.11 m/uL Status: Final Hemoglobin Date: 07/18/2023 Value: 10.7 (L) Ref range: 11.9 - 15.1 g/dL Status: Final Hematocrit Date: 07/18/2023 Value: 33.5 (L) Ref range: 36.3 - 47.1 % Status: Final MCV Date: 07/18/2023 Value: 90.3 Ref range: 82.6 - 102.9 fL Status: Final MCH Date: 07/18/2023 Value: 28.8 Ref range: 25.2 - 33.5 pg Status: Final MCHC Date: 07/18/2023 Value: 31.9 Ref range: 28.4 - 34.8 g/dL Status: Final RDW Date: 07/18/2023 Value: 12.5 Ref range: 11.8 - 14.4 % Status: Final Platelets Date: 07/18/2023 Value: See Reflexed IPF Result Ref range: 138 - 453 k/uL Status: Final Platelet, Fluorescence Date: 07/18/2023 Value: 137 (L) Ref range: 138 - 453 k/uL Status: Final Platelet, Immature Fraction Date: 07/18/2023 Value: 4.3 Ref range: 1.1 - 10.3 % Status: Final NRBC Automated Date: 07/18/2023 Value: 0.0 Ref range: 0.0 per 100 WBC Status: Final Neutrophils % Date: 07/18/2023 Value: 52 Ref range: 36 - 65 % Status: Final Lymphocytes % Date: 07/18/2023 Value: 40 Ref range: 24 - 43 % Status: Final Monocytes % Date: 07/18/2023 Value: 8 Ref range: 3 - 12 % Status: Final Eosinophils % Date: 07/18/2023 Value: 1 Ref range: 1 - 4 % Status: Final Basophils % Date: 07/18/2023 Value: 0 Ref range: 0 - 2 % Status: Final Immature Granulocytes % Date: 07/18/2023 Value: 0 Ref range: 0 % Status: Final Neutrophils Absolute Date: 07/18/2023 Value: 5.99 Ref range: 1.50 - 8.10 k/uL Status: Final Lymphocytes Absolute Date: 07/18/2023 Value: 4.64 (H) Ref range: 1.10 - 3.70 k/uL Status: Final Monocytes Absolute Date: 07/18/2023 Value: 0.88 Ref range: 0.10 - 1.20 k/uL Status: Final Eosinophils Absolute Date: 07/18/2023 Value: 0.06 Ref range: 0.00 - 0.44 k/uL Status: Final Basophils Absolute Date: 07/18/2023 Value: <0.03 Ref range: 0.00 - 0.20 k/uL Status: Final Immature Granulocytes Absolute Date: 07/18/2023 Value: 0.04 Ref range: 0.00 - 0.30 k/uL Status: Final Radiology last 7 days: No results found. Pending Labs Order Current Status Surgical Pathology Collected (07/17/23 1123) Discharge Medications Current Discharge Medication List START taking these medications HYDROcodone-acetaminophen (NORCO) 5-325 MG per tablet Take 1 tablet by mouth every 6 hours as needed for Pain (may use 1 or 2) for up to 7 days. Max Daily Amount: 4 tablets Qty: 12 tablet Refills: 0 Comments: Reduce doses taken as pain becomes manageable Associated Diagnoses:Incarcerated ventral hernia; Post-op pain Current Discharge Medication List Current Discharge Medication List CONTINUE these medications which have NOT CHANGED vitamin B-12 (CYANOCOBALAMIN) 1000 MCG tablet Take 1 tablet by mouth daily lactobacillus (CULTURELLE) capsule Take 1 capsule by mouth 2 times daily (with meals) Qty: 60 capsule Refills: 0 amLODIPine (NORVASC) 5 MG tablet Take 1 tablet by mouth daily Current Discharge Medication List STOP taking these medications Cyanocobalamin 1000 MCG/ML LIQD Comments: Reason for Stopping: Time Spent on Discharge: minutes were spent in patient examination, evaluation, counseling as well as medication reconciliation, prescriptions for required medications, discharge plan, and follow up. documented in this encounter [facility] 07-18-2023 [facility] Discharg e Chloe Downing RN - 07/18/2023 2:37 PM EDT 1) Follow up next week with me or Sunday. 2) Diet - resume your usual diet 3) Activity - No heavy lifting or strenuous activity, 10 lbs max., for about 6 weeks - No driving for at least and week and you are not longer needing pain medication - May walk, use stair and ride in a car. - You may shower with use of CHG soap over incision. Do not soak incision in a tub or pool for 7 days 4) Change bandage as needed 5) Resume your usual medications 6) Pain I have prescribed hydrocodone/acetminophen, you may use as needed. If you pain is mild you may replace it with plain acetaminophen (Tylenol) 7) You may change the dressing as desired. Change if it gets wet or soiled. 8) Watch for signs/symptoms of infection such as: Increased pain, swelling, warmth, or redness. Red streaks leading from the incision. Pus draining from the incision. A fever. 8) Call if you have questions or problems @ [phone] Chloe oFrd RN - 07/18/2023 2:44 PM EDT As tolerated. No lifting more than 10 pounds for 6 weeks Chloe Ford RN - 07/18/2023 2:46 PM EDT Good nutrition is important when healing from an illness, injury, or surgery. Follow any nutrition recommendations given to you during your hospital stay. If you were given an oral nutrition supplement while in the hospital, continue to take this supplement at home. You can take it with meals, in-between meals, and/or before bedtime. These supplements can be purchased at most local grocery stores, pharmacies, and [employer]-stores. If you have any questions about your diet or nutrition, call the hospital and ask for the dietitian. Low Fat The following attachments cannot be sent through Care Everywhere.Abdominal Hernia Repair: Post-op (Congolese)Surgical Site Infections: Prevention: General Info (Congolese)documented in this encounter [facility] 06-26-2023 Note [id number] [facility] 11-08-2022 Note Cardiology Clinic No te [...] contact cardiology with any questions or concerns. Steve Peguero MD Interventional Cardiology [facility] 11-08-2022 Note New patient here to [...] All other systems reviewed and are negative. [facility] 05-09-2022 History of Presen t illness [...] did advise her we really want to picker/puller her exercise and activity level. We will see her in a year for reevaluation. No orders of the defined types were placed in this encounter. Return in about 1 year (around 05/09/2023) for Annual physical, xrays. Note: To expedite correspondence this note was generated by [employer] voice recognition software. Some grammatical or spelling errors may occur using the system. documented in this encounter [facility] 04-28-2022 Telephone encounter Note Patient called with question with whether she should finish keflex , she was instructed to finish antibiotic . [facility] 04-28-2022 Miscellaneous Notes Patient called with question with whether she should finish keflex , she was instructed to finish antibiotic . documented in this encounter [facility] 04-18-2022 History of Presen t illness Narrative Subjective: Patient ID: Micheal Brice is a 82 y.o. female. HPI: She is a former patient of ours status post a right total knee arthroplasty. She states that she fell onto a ladder a little bit before New Year's. She did finally have x-rays done of [...] expedite correspondence this note was generated by [employer] voice recognition software. Some grammatical or spelling errors may occur using the system. documented in this encounter [facility] 03-30-2022 Note PROCEDURE: XR ELBOW RT MIN [...] authenticated by: MIGEL RAMSEY Date: 2022-03-30 12:47 [facility] 03-30-2022 Note PROCEDURE: XR KNEE R [...] authenticated by: MIGEL RAMSEY Date: 2022-03-30 12:42 [facility] Evaluation + Plan note Future Appointments Appointment Date:04/07/2024 01:00:00 PM Scheduled Provider: Location:[facility] Appointment Type:FM Medicare Wellness Subsequent [facility] Evaluation + Plan note Future Appointments Appointment Date:04/13/2025 09:30:00 AM Scheduled Provider: Location:[facility] Appointment Type:FM Medicare Wellness Subsequent Appointment Date:04/13/2025 10:20:00 AM Scheduled Provider:Camila Max Location:[facility] Appointment Type: Open [facility] Evaluation note Diagnosis History of total right knee replacement- Primary [facility] Incarcerated umbilical hernia- Primary Umbilical hernia with obstruction Wound dehiscence Disruption of external operation (surgical) wound Incarcerated ventral hernia Ventral hernia, unspecified, with obstruction Post-op pain Other acute postoperative pain Wound dehiscence Disruption of external operation (surgical) wound Incarcerated ventral hernia Ventral hernia, unspecified, with obstruction Hypertension Unspecified essential hypertension Mild malnutrition (HCC) Malnutrition of mild degree [facility] Diagnosis Abscess of postoperative wound of abdominal wall- Primary Post-operative wound abscess Other postoperative infection Failure of outpatient treatment Abscess of umbilicus Cellulitis and abscess of trunk Abscess of postoperative wound of abdominal wall [facility] No data available for this section [facility] No data available for this section [facility] No data available for this section [facility] Purpose Family History No Family History [...] Found Advance Directives No Advanced Directives Records FoundLatest Code Status on File Code Status Date Activated Date Inactivated Comments Full Code 07/17/2023 12:52 PM Code Status History Code Status Date Activated Date Inactivated Comments Full Code 07/17/2023 8:02 AM 07/17/2023 12:52 PM Full Code 06/20/2023 7:27 AM 06/22/2023 11:26 AM Full Code 06/01/2015 1:08 PM 06/02/2015 6:50 PM Healthcare Agents on File Name Relationship Healthcare Agent Relationshi p [facility] Latest Code Status on File Code Status Date Activated Date Inactivated Comments Full Code 07/31/2023 6:26 PM Code Status History Code Status Date Activated Date Inactivated Comments Full Code 07/17/2023 12:52 PM 07/18/2023 5:45 PM Full Code 07/17/2023 8:02 AM 07/17/2023 12:52 PM Full Code 06/20/2023 7:27 AM 06/22/2023 11:26 AM Full Code 06/01/2015 1:08 PM 06/02/2015 6:50 PM Healthcare Agents on File Name Relationship Healthcare Agent Relationshi p [facility] Primary Decision Maker Latest Code Status on File Code Status Date Activated Date Inactivated Comments Full Code 07/31/2023 6:26 PM 08/03/2023 9:37 PM Code Status History Code Status Date Activated Date Inactivated Comments Full Code 07/17/2023 12:52 PM 07/18/2023 5:45 PM Full Code 07/17/2023 8:02 AM 07/17/2023 12:52 PM Full Code 06/20/2023 7:27 AM 06/22/2023 11:26 AM Full Code 06/01/2015 1:08 PM 06/02/2015 6:50 PM Healthcare Agents on File Name Relationship Healthcare Agent Relationshi p Communication Iain [facility] Child Primary Decision Maker Reason for Referral Specialty Diagnoses / Procedures Referred By Jeni de leon Referred To Contact Wound Care Diagnoses Abscess of umbilicus Abscess of postoperative wound of abdominal wall Radhika Magana MD [address] [place] [address] Referral ID Status Reason Start Date Expiration Date V isits Requested Visits Authorized [id number] Open Specialty Services Required 08/03/2023 01/30/2024 1 1 Scheduling Instructions [facility] Question Answer Reason For External Referral? Location Comments The patient can be scheduled with any member of the group, including the provider with the first available appointments. Additional Source Comments INFORMATION SOURCE (unrecogn ized section and content) DATE CREATED AUTHOR 04/01/2022 [facility] DATE CREATED AUTHOR AUTHOR'S ORGANIZ ATION 05/10/2022 [facility] DATE CREATED AUTHOR AUTHOR'S ORGANIZ ATION 11/09/2022 [facility] DATE CREATED AUTHOR AUTHOR'S ORGANIZ ATION [facility]2023 [facility] DATE CREATED AUTHOR AUTHOR'S ORGANIZ ATION 08/07/[address] [facility] DATE CREATED AUTHOR AUTHOR'S ORGANIZ ATION 08/28/2023 [facility] DATE CREATED AUTHOR AUTHOR'S ORGANIZ ATION 04/11/2024 Gilliam Tello [facility] DATE CREATED AUTHOR AUTHOR'S ORGANIZ ATION 04/12/2024 Gilliam Tello [facility] DATE CREATED AUTHOR AUTHOR'S ORGANIZ ATION 04/22/2024 Mane Owusu [facility] Reason for Visit (unrecogniz ed section and [...] she can stop wearing her compression socks Specialty Diagnoses / Procedures Referred By Jeni de leon Referred To Contact Diagnoses Wound dehiscence Wound dehiscence [T81.30XA] Procedures MD RPR AA HERNIA RECR < 3 CM REDUCIBLE HERNIA UMBILICAL REPAIR - REVISION UMBILICAL INCISION, POSSIBLE HERNIA REPAIR, POSSIBLE UMBILECTOMY Ramon Olea MD [address] [facility] [place] [address] [facility] [address] [place] [address] Referral ID Status Reason Start Date Expiration Date Visits Re quested Visits Authorized [id number] 1 1 Reason Comments Post-op Problem Hernia repaired done July 16. Pt has been going on since 3 days after the surgery. Pt denied any fever. Pt stated she is fatigued, achy, and has not been feeling herself. Care Teams (unrecognized sec tion and content) Home Health Provider Relationship Specialty Start Date End Date No, Physician [facility] PCP - General 04/18/22 Home Health Provider Relationship Specialty Start Date End Date No, Physician [facility] PCP - General 04/18/22 Home Health Provider Relationship Specialty Start Date End Date Camila Carlos APRN - POWER CHISEL OPERATOR [address] [place] [address] PCP - General 06/20/23 Home Health Provider Relationship Specialty Start Date End Date Camila Carlos APRN - STEFANY [address] [place] [address] PCP - General 06/20/23 Home Health Provider Relationship Specialty Start Date End Date Kasandra CarlosMICHAEL boucher - POWER CHISEL OPERATOR [address] [place] [address] PCP - General 06/20/23 Ordered Prescriptions (unrec ognized section and content) Prescription Sig Dispensed Refills Start Date End Da te HYDROcodone-acetaminophe n (NORCO) 5-325 MG per tabletIndications:Incarc erated ventral hernia,Post-op pain Take 1 tablet by mouth every 6 hours as needed for Pain (may use 1 or 2) for up to 7 days. Max Daily Amount: 4 tablets 12 tablet 0 07/18/2023 07/25/2023 Scheduled Active and Recently Administ ered Medications (unrecognized section and content) Medication Order 07/16/2023 07/17/2023 07/18/2023 acetaminophen (TYLENOL) tablet 650 mg (COMPLETED) 650 mg, Oral, ONCE, 1 dose, On Sun07/17/23 at 0830, Maximum dose of acetaminophen is 4000 mg from all sources in 24 hours., Pre-op (day of surgery) 0828 (Given - Provider: Elva Hernandez RN) acetaminophen (TYLENOL) tablet 650 mg (COMPLETED) 650 mg, Oral, ONCE, 1 dose, On Sun07/18/23 at 0045, Maximum dose of acetaminophen is 4000 mg from all sources in 24 hours. 0025 (Given - Provid er: Angela Nguyen RN) amLODIPine (NORVASC) tablet 5 mg 5 mg, Oral, DAILY, First dose on Sun07/18/23 at 0900, Until Discontinued 0846 (Given - Provid er: Yessy Montes RN) ceFAZolin (ANCEF) 2000 mg in 0.9% sodium chloride 100 mL IVPB (COMPLETED) 2,000 mg, IntraVENous, FURNACE LOADER TO O.R., 1 dose, On Sun07/17/23 at 0830, Antimicrobial Indications: Surgical Prophylaxis, Administer within 1 hour prior to incision. Recommend to repeat in 3-4 hours after initial dose if still intra-op., Pre-op (day of surgery) 1020 (New Bag - Provider: Krys Heart RN - Comment: automobile sales consultant to the OR)1350 (Stopped - Provider: Fabi Duran RN - Comment: Unknown stop time; not infusing upon admission) enoxaparin (LOVENOX) injection 40 mg 40 mg, SubCUTAneous, DAILY, First dose on Sun07/18/23 at 0900, Until Discontinued, Indication of Use: Prophylaxis-DVT/PE, Administer by deep subCUTAneous injection with pt lying down. Alternate injection sites on abdominal wall. Do not rub site after injection. Check with provider prior to any invasive procedure., Post-op 0846 (Given - Provid er: Yessy Montes RN) lactobacillus (CULTURELLE) capsule 1 capsule 1 capsule, Oral, 2 TIMES DAILY WITH MEALS, First dose on Sun07/17/23 at 1700, Until Discontinued, Do not add to warm or hot foods or beverages. Caps may be opened & mixed in a cool beverage or sprinkled onto baby food or applesauce. Mix entire packet content into cool food or drink until dissolved. 1643 (Given - Provider: Fabi Duran RN) 0846 (Given - Provider: Yessy Montes RN)1700 (Due) Continuous Medication Order 07/16/2023 07/17/2023 07/18/2023 dextrose 5 % and 0.45 % NaCl with KCl 20 mEq infusion (CANCELED) IntraVENous, at 100 mL/hr, CONTINUOUS, Starting on Sun07/17/23 at 1315, Post-op 1305 (New Bag - Provider: Fabi Duran RN)2329 (New Bag - Provider: Angela Nguyen RN) 0727 (Stopped - Provider: Yessy Montes RN) lactated ringers IV soln infusion (CANCELED) IntraVENous, at 100 mL/hr, CONTINUOUS, Starting on Sun07/17/23 at 0830, Pre-op (day of surgery) 0826 (New Bag - Provider: Elva Hernandez RN)1032 (NoRateChange - Provider: MICHAEL Lopez CRNA)1145 (Anesthesia Volume Adjustment - Provider: MICHAEL Lopez CRNA)1255 (Stopped - Provider: Fabi Duran RN) PRN Medication Order 07/16/2023 07/17/2023 07/18/2023 acetaminophen (TYLENOL) tablet 650 mg 650 mg, Oral, EVERY 4 HOURS PRN, Starting on Sun07/18/23 at 0706, Until Discontinued, Allowed for higher pain score per patient request, Maximum dose of acetaminophen is 4000 mg from all sources in 24 hours. BUPivacaine (MARCAINE) 0.5 % 20 mL, lidocaine 1 % 20 mL (CANCELED) PRN, Starting on Sun07/17/23 at 1119, Intra-op 1119 (Given - Provider: Ramon Olea MD) ondansetron (ZOFRAN) injection 4 mg(Linked Group 1) 4 mg, IntraVENous, EVERY 6 HOURS PRN, Starting on Sun07/17/23 at 1252, Until Discontinued, Nausea, Vomiting, Administer if oral route cannot be used., Post-op ondansetron (ZOFRAN-ODT) disintegrating tablet 4 mg(Linked Group 1) 4 mg, Oral, EVERY 8 HOURS PRN, Starting on Sun07/17/23 at 1252, Until Discontinued, Nausea, Vomiting, Post-op oxyCODONE (ROXICODONE) immediate release tablet 10 mg(Linked Group 2) 10 mg, Oral, EVERY 4 HOURS PRN, Starting on Sun07/17/23 at 1252, Until Discontinued, Pain Severe (7-10), Post-op oxyCODONE (ROXICODONE) immediate release tablet 5 mg(Linked Group 2) 5 mg, Oral, EVERY 4 HOURS PRN, Starting on Sun07/17/23 at 1252, Until Discontinued, Pain Moderate (4-6), Post-op Linked Groups Order Group 1: ondansetron (ZOFRAN-ODT) disintegrating tablet 4 mgJump to med 4 mg, Oral, EVERY 8 HOURS PRN, Starting on Sun07/17/23 at 1252, Until Discontinued, Nausea, Vomiting, Post-op Or ondansetron (ZOFRAN) injection 4 mgJump to med 4 mg, IntraVENous, EVERY 6 HOURS PRN, Starting on Sun07/17/23 at 1252, Until Discontinued, Nausea, Vomiting
Administer if oral route cannot be used.
Post-op Group 2: oxyCODONE (ROXICODONE) immediate release tablet 5 mgJump to med 5 mg, Oral, EVERY 4 HOURS PRN, Starting on Sun07/17/23 at 1252, Until Discontinued, Pain Moderate (4-6), Post-op Or oxyCODONE (ROXICODONE) immediate release tablet 10 mgJump to med 10 mg, Oral, EVERY 4 HOURS PRN, Starting on Sun07/17/23 at 1252, Until Discontinued, Pain Severe (7-10), Post-op Scheduled Medication Order 08/01/2023 08/02/2023 08/03/2023 amLODIPine (NORVASC) tablet 5 mg 5 mg, Oral, DAILY, First dose on Sun08/01/23 at 0900, Until Discontinued 0929 (Not Given - Provider: Elda Sousa RN - Reason: Patient/family refused) 0858 (Not Given - Provider: Chloe Torres RN - Reason: Contraindicated - Comment: HR 53) 0634 (Held by provider - Provider: Radhika Magana MD - Reason: Other)0900 (Automatically Held - Provider: Radhika Magana MD) clindamycin (CLEOCIN) 900 mg in dextrose 5 % 50 mL IVPB 900 mg, IntraVENous, EVERY 8 HOURS, First dose (after last modification) on Sun07/31/23 at 2200, Until Discontinued, Antimicrobial Indications: Surgical Site Infection 0529 (New Bag - Provider: Angela Nguyen RN)0705 (Stopped - Provider: Elda Sousa RN)1316 (New Bag - Provider: Elda Sousa RN)1416 (Stopped - Provider: Olivia Richmond RN)2145 (New Bag - Provider: Angela Ladd RN)2245 (Stopped - Provider: Angela Ladd RN) 0504 (New Bag - Provider: Angela Ladd RN)0611 (Stopped - Provider: Angela Ladd RN)1323 (New Bag - Provider: Chloe Torres RN)1423 (Stopped - Provider: Chloe Torres RN)2140 (New Bag - Provider: Angela Ladd RN)2241 (Stopped - Provider: Angela Ladd RN) 0512 (New Bag - Provider: Angela Ladd RN)0614 (Stopped - Provider: Angela Ladd RN)1353 (New Bag - Provider: Chloe Torres RN)1456 (Not Given - Provider: Chloe Torres RN - Reason: Other - Comment: okay not to give per Dr. Castañeda.)2200 (Due) enoxaparin (LOVENOX) injection 40 mg 40 mg, SubCUTAneous, DAILY, First dose on Sun08/03/23 at 1015, Until Discontinued, Indication of Use: Prophylaxis-DVT/PE, Administer by deep subCUTAneous injection with pt lying down. Alternate injection sites on abdominal wall. Do not rub site after injection. Check with provider prior to any invasive procedure. 1024 (Not Given - Provider: Chloe Torres RN - Reason: Patient/family refused) piperacillin-tazobactam (ZOSYN) 3,375 mg in sodium chloride 0.9 % 50 mL IVPB (Ccoj0Tej) 3,375 mg, IntraVENous, EVERY 8 HOURS, First dose on Sun07/31/23 at 2115, Until Discontinued, Antimicrobial Indications: Surgical Site Infection 0233 (Stopped - Provider: Angela Nguyen RN)0659 (New Bag - Provider: Elda Sousa RN)1002 (Stopped - Provider: Elda Sousa RN)1435 (New Bag - Provider: Olivia Richmond RN)1825 (Stopped - Provider: Olivia Richmond RN)2332 (New Bag - Provider: Angela Ladd RN) 0325 (Stopped - Provider: Angela Ladd RN)0729 (New Bag - Provider: Chloe Torres RN)1129 (Stopped - Provider: Chloe Torres, RN)1540 (New Bag - Provider: Chloe Torres RN)1947 (Stopped - Provider: Angela Ladd RN)2308 (New Bag - Provider: Angela Ladd RN) 0353 (Stopped - Provider: Angela Ladd RN)0711 (New Bag - Provider: Chloe Torres RN)1111 (Stopped - Provider: Chloe Torres RN)1457 (Not Given - Provider: Chloe Torres RN - Reason: Other - Comment: okay not to give per Dr. Castañeda)2300 (Due - Provider: Horacio Resendiz, [facility]) sodium chloride flush 0.9 % injection 5-40 mL 5-40 mL, IntraVENous, EVERY 12 HOURS SCHEDULED (2 times per day), First dose on Sun07/31/23 at 2100, Until Discontinued, For Line Patency: Peripheral IV = 5 mL; Midline or Central Line = 10 mL/lumen. If following IV push medication, administer flush at same rate as the IV push. Flush volume is determined by type of infusion therapy being given. For non-viscous solutions use: Peripheral IV = 5 mL Midline or Central Line = 10 mL/lumen For viscous solutions (i.e. blood components, parenteral nutrition, contrast media, or after obtaining blood sample) use: Peripheral IV = 10 mL Midline or Central Line = 20 mL/lumen 0930 (Given - Provider: Elda Sousa RN)1958 (Not Given - Provider: Angela Ladd RN - Reason: IV Fluid Infusing) 0830 (Not Given - Provider: Chloe Torres RN - Reason: IV Fluid Infusing)2017 (Not Given - Provider: Angela Ladd RN - Reason: IV Fluid Infusing) 0740 (Not Given - Provider: Chloe Torres RN - Reason: IV Fluid Infusing)2100 (Due) Continuous Medication Order 08/01/2023 08/02/2023 08/03/2023 0.9 % sodium chloride infusion (CANCELED) IntraVENous, at 75 mL/hr, CONTINUOUS, Starting on Sun07/31/23 at 1845 0225 (New Bag - Provider: Rose Alanis RN)2143 (New Bag - Provider: Angela Ladd RN) 1316 (New Bag - Provider: Chloe Torres, RN) 0310 (New Bag - Provider: Angela Ladd RN)0649 (Stopped - Provider: Clhoe Torres RN) PRN Medication Order 08/01/2023 08/02/2023 08/03/2023 0.9 % sodium chloride infusion IntraVENous, at 5-250 mL/hr, PRN, if patient receiving piggyback infusions and maintenance fluids are not ordered OR KVO fluids to protect IV site / prevent frequent line interruptions/ long duration, Starting on Sun07/31/23 at 1826, For piggyback infusion, administer at same rate as piggyback for a total of 25 mL. Enter 25 mL into dose field and piggyback rate into rate field of order. If piggyback is infusing at a rate less than 100 mL/hr, enter 25 mL into dose field and 100 mL/hr into rate field of order. For KVO fluids, enter rate of 20 mL/hr or less into rate field of order. acetaminophen (TYLENOL) suppository 650 mg(Linked Group 1) 650 mg, Rectal, EVERY 6 HOURS PRN, Starting on Sun07/31/23 at 1826, Until Discontinued, Pain Mild (1-3), Fever, For temp greater than 100.4 F (38 C), Administer if oral route cannot be used. acetaminophen (TYLENOL) tablet 650 mg(Linked Group 1) 650 mg, Oral, EVERY 6 HOURS PRN, Starting on Sun07/31/23 at 1826, Until Discontinued, Pain Mild (1-3), Fever, For temp greater than 100.4 F (38 C), Maximum dose of acetaminophen is 4000 mg from all sources in 24 hours. magnesium sulfate 2000 mg in 50 mL IVPB premix 2,000 mg, IntraVENous, at 25 mL/hr, Administer over 2 Hours, PRN, Other, Magnesium Replacement, Starting on Sun07/31/23 at 182, Mag Lab Replacement Action 1.4-1.6 mg/dL 2,000 mg Total Dose Given as 1,000 mg IVPB x 2 doses or 2,000 mg IVPB x 1 dose 1.0-1.3 mg/dL 4,000 mg Total Dose Given as 1,000 mg IVPB x 4 doses or 2,000 mg IVPB x 2 doses Less than 1.0 mg/dL CALL PHYSICIAN and give 4,000 mg Total Dose Given as 1,000 mg IVPB x 4 doses or 2,000 mg IVPB x 2 doses Infuse at 1,000 mg/hr Repeat Mag level 1 hour after final administration Protocol not for use in Patients with CrCl less than 30ml/min ondansetron (ZOFRAN) injection 4 mg 4 mg, IntraVENous, EVERY 6 HOURS PRN, Starting on Sun07/31/23 at 2044, Until Discontinued, Nausea, Vomiting oxyCODONE-acetaminophen (PERCOCET) 5-325 MG per tablet 1 tablet 1 tablet, Oral, EVERY 4 HOURS PRN, Starting on Sun07/31/23 at 2043, Until Discontinued, Pain Moderate (4-6), Maximum dose of acetaminophen is 4000 mg from all sources in 24 hours. 2347 (Given - Provider: Angela Ladd RN - Comment: Pre dressing change) 1112 (Given - Provider: Chloe Torres RN)2306 (Given - Provider: Angela Ladd RN - Comment: Given prior to dressing change) polyethylene glycol (GLYCOLAX) packet 17 g 17 g, Oral, DAILY PRN, Starting on Sun07/31/23 at 1826, Until Discontinued, Constipation, First line therapy for constipation potassium bicarb-citric acid (EFFER-K) effervescent tablet 40 mEq(Linked Group 2) 40 mEq, Oral, PRN, Starting on Sun07/31/23 at 1826, Until Discontinued, Per Potassium Replacement Protocol, Administer as alternative if patient unable to tolerate oral tablet. K Lab Replacement Action 3.1 to 3.5 40 mEq ORAL x 1 Under 3.1 Refer to IV replacement protocol Recheck K level in AM. Protocol not for use in patients with CrCl less than 30 mL/min. Do not chew or crush. Dissolve flavored tablets completely in 3 to 4 ounces of cold water; unflavored tablets may be dissolved in 3 to 4 ounces of cold juice. Patient to sip slowly over a 5 to 10 minute period. May further dilute if GI adverse effects occur. potassium chloride (KLOR-CON M) extended release tablet 40 mEq(Linked Group 2) 40 mEq, Oral, PRN, Starting on Sun07/31/23 at 1826, Until Discontinued, Potassium Replacement, May give alternative linked oral order (ordered as effervescent, packet, or liquid solution) if patient unable to tolerate tablet. K Lab Replacement Action 3.1 to 3.5 40 mEq ORAL x 1 Under 3.1 Refer to IV replacement protocol Recheck K level in AM. Protocol not for use in patients with CrCl less than 30 mL/min. Do not crush, chew, or suck on tablet. Tablet may also be broken in half and each half swallowed separately. potassium chloride 10 mEq/100 mL IVPB (Peripheral Line)(Linked Group 2) 10 mEq, IntraVENous, PRN, Starting on Sun07/31/23 at 1826, Until Discontinued, at 100 mL/hr, Potassium Replacement, K Lab Replacement Action 2.7 to 3.0 10 mEq IVPB x 6 doses (60 mEq Total) Under 2.7 CALL PROVIDER and administer 10 mEq IVPB x 6 doses (60 mEq Total) Infuse at 10 mEq/hr. Repeat Potassium lab 1 hour after final administration. Protocol not for use in patients with CrCl less than 30 mL/min. sodium chloride flush 0.9 % injection 10 mL 10 mL, IntraVENous, PRN, Starting on Sun07/31/23 at 1826, Until Discontinued, Line Care, After every IV line use Linked Groups Order Group 1: acetaminophen (TYLENOL) tablet 650 mgJump to med 650 mg, Oral, EVERY 6 HOURS PRN, Starting on Sun07/31/23 at 1826, Until Discontinued, Pain Mild (1-3), Fever, For temp greater than 100.4 F (38 C)
Maximum dose of acetaminophen is 4000 mg from all sources in 24 hours.
Or acetaminophen (TYLENOL) suppository 650 mgJump to med 650 mg, Rectal, EVERY 6 HOURS PRN, Starting on Sun07/31/23 at 1826, Until Discontinued, Pain Mild (1-3), Fever, For temp greater than 100.4 F (38 C)
Administer if oral route cannot be used.
Group 2: potassium chloride (KLOR-CON M) extended release tablet 40 mEqJump to med 40 mEq, Oral, PRN, Starting on Sun07/31/23 at 1826, Until Discontinued, Potassium Replacement
May give alternative linked oral order (ordered as effervescent, packet, or liquid solution) if patient unable to tolerate tablet. K Lab Repla cemen t Action 3.1 to 3.5 40 mEq ORAL x 1 Under 3.1 Refer to IV replacement protocol Recheck K level in AM. Protocol not for use in patients with CrCl less than 30 mL/min. Do not crush, chew, or suck on tablet. Tablet may also be broken in half and each half swallowed separately.
Or potassium bicarb-citric acid (EFFER-K) effervescent tablet 40 mEqJump to med 40 mEq, Oral, PRN, Starting on Sun07/31/23 at 1826, Until Discontinued, Per Potassium Replacement Protocol
Administer as alternative if patient unable to tolerate oral tablet. K Lab Repla cemen t Action 3.1 to 3.5 40 mEq ORAL x 1 Under 3.1 Refer to IV replacement protocol Recheck K level in AM. Protocol not for use in patients with CrCl less than 30 mL/min. Do not chew or crush. Dissolve flavored tablets completely in 3 to 4 ounces of cold water; unflavored tablets may be dissolved in 3 to 4 ounces of cold juice. Patient to sip slowly over a 5 to 10 minute period. May further dilute if GI adverse effects occur.
Or potassium chloride 10 mEq/100 mL IVPB (Peripheral Line)Jump to med 10 mEq, IntraVENous, PRN, Starting on Sun07/31/23 at 1826, Until Discontinued, at 100 mL/hr, Potassium Replacement
K Lab Replacement Action 2.7 to 3.0 10 mEq IVPB x 6 doses (60 mEq Total) Under 2.7 CALL PROVIDER and administer 10 mEq IVPB x 6 doses (60 mEq Total) Infuse at 10 mEq/hr. Repeat Potassium lab 1 hour after final administration. Protocol not for use in patients with CrCl less than 30 mL/min.
FOR RECORDS PERTAINING TO PATIENTS WHO ARE [...] BE BASED ON THE PRIMARY CLINICAL RECORDS. [employer] provides no warranty or guarantee of the accuracy or completeness of information in this document.
== END 2024-04-25 08:30 | disposition home or self-care (01) ==
LOC: RAD 08:29
PROVIDERS: PCP Family Medicine; Visit Provider Nurse Practitioner
DX: E28.39 Other primary ovarian failure (principal); M85.88 Other specified disorders of bone density and structure, other site
CPT/HCPCS: 77080

== ENCOUNTER 2024-04-28 08:46 | Outpatient (OUT) | payer MEDICARE, OTHER, SELFPAY ==
--- NOTE | 2024-04-28 08:51 | US_ITS ---
The [address] [address] Patient Name: MICHEAL BRICE MRN: [id number] date: 1940 Sex: F Assigned Patient Location: US Current Patient Location: US Accession/Order Number: [id number] Exam Date: 04/28/2024 08:52 Report Date: 04/28/2024 13:14 At the request of: CAMILA WILBURN Procedure: US extremity nonvascular RT EXAM: US extremity nonvascular RT HISTORY: Lump On Right Upper Arm COMPARISON: None. TECHNIQUE: Grayscale and color Doppler imaging was utilized. FINDINGS: There is an ill-defined ovoid isoechoic to fat mass measuring 3.8 x 2.8 x 1.1 cm. This most likely represents a lipoma. 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 Electronically authenticated by: Olu MCNAMARA Date: 04/28/2024 13:14
--- OUTSIDE RECORDS SUMMARY | 2024-04-28 08:53 | XMS_ITS | CCD ---
Author Organization [facility] Care Team Providers Care Natural Remedy Consultant Name Role Phone DR MIGEL RAMSEY Consulting Unavailable FAWWAD, ARAIZA H Primary Care Unavailable FAWWAD, ARAIZA H Attending Unavailable FAWWAD, ARAIZA H Admitting Unavailable FAWWAD, ARAIZA H Consulting Unavailable No, Physician Primary Care Provider Unavailabl e LUIS FELIPE LOPES Attending Unavailable NO, PHYSICIAN Primary Care Unavailable NO, PHYSICIAN Primary Care Unavailable LUIS FELIPE LOPES Referring Unavailable LUIS FELIPE LOPES Admitting Unavailable NO, PHYSICIAN Primary Care Unavailable FADLUIS FELIPE De La Vega Attending Unavailable STEVE PEGUERO Attending Unavailable Cosmo Camila L Primary Care Physician COSMO, CAMILA Primary Care Unavailable OLEA, RAMON A Consulting Unavailable BARBIAZARIANJOVAN Attending Unavailable GHAZARIAN JOVAN Admitting Unavailable Cosmo MANAGER PART - ADULT SCHOOL COUNSELOR, Camila Primary Care Provider [phone] IACOB, RADHIKA Referring Unavailable COSMO, CAMILA Primary [...] Unavailable KIA SAMUEL Attending Unavailable Cosmo, Camila L Attending Unavailable [...] Attending Unavailable Cosmo, Camila L Attending Unavailable Allergies Allergy Classification Reported Allergen(s) Allergy Type Date of Onset Reaction(s) Facility (1 source) Corticosteroids Drug allergy (disorder) [facility] Repository Medications Current Medications Medication Drug [...] day(s), # 90 tab(s), Refills(s) 3, Pharmacy: [id number], 158, cm, 10/01/23 15:37:00 EDT, Height/Length Dosing, [...] any invasive procedure. Post-op lactobacillus rhamnosus gg [id number] unt oral capsule (4 sources) Start: 06-22-2023 [...] less than 30ml/min omega-3 acid ethyl esters (correction) 1000 mg [...] sodium chloride 0.9 % 50 mL IVPB ([id number]) (1 source) Start: 07-31-2023 piperacillin-tazoba ctam (ZOSYN) 3,375 mg in sodium chloride 0.9 % 50 mL IVPB ([id number]) Potassium Chloride (1 source) Start: 07-31-2023 potassium chloride (KLOR-CON M) extended release tablet 40 mEq terbinafine hydrochloride 10 mg/ml topical cream (1 source) Allylamine Antifungal Start: 03-30-2023 Lamisil AT 1% Cream 1 ashwini, Topical, BID, 12 gram, Refill(s) 0, [facility], 155, cm, 03/30/23 10:41:00 EST, Height/Length Dosing, [...] % injection 75 mL polyethylene glycol 3350 85562 mg powder for oral solution (1 source) [...] Hypertensive disorder; Translations: [Essential (primary) hypertension] Onset: 07-17-1902-05-2023 Chronic Nonspecific chest pain (2 sources) Chest [...] Results Test Name Value Interpretation Reference Range [facility] Family Medicine Office/Clini c Noteon 04-25-2024 Family Medicine Office/Clinic Note Family Medicine Office/Clinic Note HPI Staff Micheal is a 84 year old female presenting for acute visit Wart to right hand index finger came back History of Present Illness pt presents today for wart treatment Review of Systems PHQ Score Initial Depression Screen Score: 0 SCORE Physical Exam Vitals & Measurements HR: 60(Peripheral) RR: 18 BP: 118/80 SpO2: 98% HT: 62 in HT: 158.0 cm WT: 88.3 kg WT: 194.668 lb BMI: 35.37 General: alert, no acute distress ENMT: oral mucosa moist, no pharyngeal erythema or exudate Cardiovascular: regular rate and rhythm, normal peripheral perfusion Respiratory: Lungs CTA, respirations non labored Extremities: no deformity, no trauma Neurological: oriented x 4, LOC appropriate for age, CN II-XII intact, motor strength equal & normal bilaterally, speech normal1 small wart right index finger Assessment/Plan 1. Wart of hand (B07.9: Viral wart, unspecified) pt presents with wart on finger. wart on right index finder was treated with cryotherapy. pt encouraged to use OTC wart remover once the top layer comes off. 2. Mass of soft tissue of upper arm (M79.89: Other specified soft tissue disorders) u/s right upper arm faxed to [facility]. will refer to general surgery if needed 3. BMI 35.0-35.9,adult (Z68.35: Body mass index [BMI] 35.0-35.9, adult) BMI education given 4. Non-smoker (Z78.9: Other specified health status) continue not smoking Follow-up No qualifying data available Problem List/Past Medical History Ongoing BMI 35.0-35.9,adult Ganglion cyst of dorsum of right wrist Hypercholesteremia Hypertension Lipoma of back Mass of soft tissue of upper arm S/P cholecystectomy Skin texture changes Wart of hand Historical No qualifying data Procedure/Surgical History Cholecystectomy (2023), Ankle, Bowel, Cataract, Finger, Knee replacement, Stomach. Medications Acidophilus Probiotic Blend, 1 cap(s), Oral, BID amLODIPine 5 mg Tab, 5 mg= 1 tab(s), Oral, Daily, 3 refills Allergies No Known Allergies Social History Alcohol - Denies Alcohol Use, 04/04/2023 Beer, Liquor. Daily., 04/24/2024 Substance Abuse Never, 04/10/2024 Tobacco - Denies Tobacco Use, 04/04/2023 Never (less than 100 in lifetime) Tobacco Use:. Never Smokeless Tobacco Use:., 04/10/2024 Family History CABG - Coronary artery bypass graft: Negative: Mother, Father, Sister and Brother. Diabetes mellitus type 2: Sister. Open heart surgery: Mother. Immunizations Vaccine Date Status Comments influenza virus vaccine, inactivated - Not Given Parent Or Guardian Refuses diphtheria/pertussis, acel/tetanus adult 08/07/2013 Recorded tetanus-diphtheria toxoids 03/19/2004 Recorded Normal [facility] Comment on above: Result Comment: Elec tronically Signed By: Camila Max\.sonido\Date and Time Signed: 04/25/24 12:52 EST Ambulatory Visit Summaryon 0 04-10-2024 Ambulatory Visit Summary Ambulatory Visit Summary TESS BRICEDELL Gomez :1940 Visit Date:04/10/2024 Ambulatory Visit Instructions Your [...] Appointments Sunday2025 9:30 AM EST With: Where: [address] [id number] Sunday2025 10:20 AM EST With: Camila Max Where: [address] [address]- Medications What How Much When Instructions Unchanged [...] or d (more content not included)... Normal [facility] CHEMISTRYOrdered By: SYSTEM SYSTEM on 04-10-2024 Albumin [...] 04-10-2024 Albumin [Mass/Vol] 4.2 g/dL Normal 3.3-5.0 [facility] Comment on above: Performed By: #### 2 [id number] #### [facility] [address] [place] [address] Albumin/Globulin (S) [Mass conc ratio] 2.0 Normal 1.1-2.2 [facility] Comment on above: Performed By: #### 2 [id number] #### [facility] [address] [place] [address] ALP [Catalytic activity/Vol] 86 Int._Unit/L Normal 21-98 [facility] Comment on above: Performed By: #### 2 [id number] #### [facility] [address] [place] [address] ALT No additional P-5'-P [Catalytic activity/Vol] 15 Int._Unit/L Normal 6-46 [facility] Comment on above: Performed By: #### 2 [id number] #### [facility] [address] [place] [address] Anion gap [Moles/Vol] 10 mmol/L Normal 6-16 [facility] Comment on above: Performed By: #### 2 [id number] #### [facility] [address] [place] [address] AST [Catalytic activity/Vol] 18 Int._Unit/L Normal 5-43 [facility] Comment on above: Performed By: #### 2 711098 #### [facility] [address] [place] [address] Bilirubin [Mass/Vol] 0.6 mg/dL Normal 0.0-1.1 [facility] Comment on above: Performed By: #### 2 729981 #### [facility] [address] [place] [address] Calcium [Mass/Vol] 9.6 mg/dL Normal 8.9-11.1 [facility] Comment on above: Performed By: #### 2 124714 #### [facility] [address] [place] [address] Chloride [Moles/Vol] 104 mmol/L Normal 101-111 [facility] Comment on above: Performed By: #### 2 930478 #### [facility] [address] [place] [address] CO2 [Moles/Vol] 28 mmol/L Normal 21-31 [facility] Comment on above: Performed By: #### 2 368639 #### [facility] [address] [place] [address] Creatinine [Mass/Vol] 0.7 mg/dL Normal 0.5-1.3 [facility] Comment on above: Performed By: #### 2 600037 #### [facility] [address] [place] [address] Globulin (S) [Mass/Vol] 2.1 g/dL Normal 1.4-4.0 [facility] Comment on above: Performed By: #### 2 847120 #### [facility] [address] [place] [address] Glucose [Mass/Vol] 95 mg/dL Normal 55-199 [facility] Comment on above: Performed By: #### 2 792936 #### [facility] [address] [place] [address] Potassium [Moles/Vol] 4.4 mmol/L Normal 3.5-5.3 [facility] Comment on above: Performed By: #### 2 035685 #### [facility] [address] [place] [address] Protein [Mass/Vol] 6.3 g/dL Normal 6.0-7.8 [facility] Comment on above: Performed By: #### 2 [id number] #### [facility] [address] [place] [address] Sodium [Moles/Vol] 138 mmol/L Normal 135-145 [facility] Comment on above: Performed By: #### 2 [id number] #### [facility] [address] [place] [address] Urea nitrogen [Mass/Vol] 20 mg/dL Normal 5-21 [facility] Comment on above: Performed By: #### 2 987027 #### [facility] [address] [place] [address] Urea nitrogen/Creatinine [Mass ratio] 29 No Units High 10-20 [facility] Comment on above: Performed By: #### 2 [id number] #### [facility] [address] [place] [address] Family Medicine Office/Clini c Noteon 04-10-2024 Family [...] of clutter to prevent tripping and/or falling. [place] Advance Directives reviewed. Documents remain at home [...] DM s (more content not included)... Normal [facility] Comment on above: Result Comment: Elec tronically Signed By: Camila Max\.br\Date and Time Signed: 04/10/24 12:37 EST\.br\Electronically Co-Signed By: Shabnam Barrientos\.br\Date and Time Co-Signed: 04/10/24 12:05 EST Family Medicine Office/Clinic Note Family Medicine Office/Clinic Note HPI Staff Christel is an 84 year old [...] E&M of Est. Patient Low 20-29 Min 78105 Lipid Panel Thyroid Stimulating Hormone 2. S/P [...] E&M of Est. Patient Low 20-29 Min 73267 Lipid Panel Thyroid Stimulating Hormone 3. Hypercholesteremia (E78.00: Pure hypercholesterolemia, unspecified) lipid panel drawn in office today Ordered: Comprehensive Metabolic Panel E&M of Est. Patient Low 20-29 Min 68001 Lipid Panel Thyroid Stimulating Hormone 4. BMI 35.0-35.9,adult (Z68.35: Body mass index [BMI] 35.0-35.9, adult) BMI education given Ordered: Comprehensive Metabolic Panel E&M of Est. Patient Low 20-29 Min 22851 Lipid Panel Thyroid Stimulating Hormone 5. Non-smoker (Z78.9: Other specified health status) continue not smoking Ordered: Comprehensive Metabolic Panel E&M of Est. Patient Low 20-29 Min 33278 Lipid Panel Thyroid Stimulating Hormone Follow-up No [...] 08/07/2013 Recorded tetanus-diphtheria toxoids 03/19/2004 Recorded Normal [facility] Comment on above: Result Comment: Elec tronically Signed By: Camila Max\.br\Date and Time Signed: 04/10/24 10:38 EST Lipid Panelon 04-10-2024 Cholesterol [Mass/Vol] 221 mg/dL High 120-200 [facility] Comment on above: Performed By: #### 2 [id number] #### [facility] [address] [place] [address] Cholesterol in HDL [Mass/Vol] 56 mg/dL Invalid Interpretation Code [facility] Comment on above: Result Comment: '>= 60 LOW RISK' '<= 40 HIGH RISK' Performed By: #### 2 [id number] #### [facility] [address] [place] [address] Cholesterol in LDL [Mass/Vol] 159 mg/dL High <=129 [facility] Comment on above: Performed By: #### 2 961381 #### [facility] [address] [place] [address] Cholesterol in VLDL [Mass/Vol] 14 mg/dL Normal 7-40 [facility] Comment on above: Performed By: #### 2 155178 #### [facility] [address] [place] [address] Triglyceride [Mass/Vol] 69 mg/dL Normal <=149 [facility] Comment on above: Performed By: #### 2 676545 #### [facility] [address] [place] [address] TSHon 04-10-2024 TSH Qn 0.50 m[IU]/L Normal 0.34-5.60 [facility] Comment on above: Performed By: #### 2 500265 #### [facility] [address] [place] [address] eGFRon 04-10-2024 eGFR 86 mL/min/1.73 m2 Normal >=59 [facility] Comment on above: Performed By: #### 1 [id number] #### [facility] [address] [place] [address] Family Medicine Office/Clini c Noteon 10-03-2023 Family [...] 08/07/2013 Recorded tetanus-diphtheria toxoids 03/19/2004 Recorded Normal [facility] Comment on above: Result Comment: Elec tronically Signed By: Camila Max\.br\Date and Time Signed: 10/03/23 14:14 EDT Ambulatory Visit Summaryon 0 10-01-2023 Ambulatory Visit Summary Ambulatory Visit Summary MICHEAL BRICE Jason :1940 Visit Date:10/01/2023 Ambulatory Visit Instructions Your [...] Follow-Up Appointments Sunday 1:00 PM EST Where: [facility] Family Medicine [facility] Population Health 09-04-19 [facility] Case Information Case Priority: None Programs: -- Referral Source: Vocational Counselor Referral Reason: Care coordination Case Type: Transition [...] (min): 1 Outcome: Case discussion Contact Type: host coordinator Contact Name: Steve Nair Notes: TCM#5- see tcm note. Created By: Steve Nair Date: August 28, 2023 Method: Phone call Type: Outbound Duration (min): 1 Outcome: No answer Contact Type: host coordinator Contact Name: Steve Nair Notes: BILL#4- no answer, no vm. Created By: Steve Nair Date: August 21, 2023 Method: Phone call Type: Outbound Duration (min): 10 Outcome: Case discussion Contact Type: host coordinator Contact Name: Steve Nair Notes: BILL#3-see tcm note. Created By: Steve Nair Date: August 14, 2023 Method: Phone call Type: Outbound Duration (min): 10 Outcome: Case discussion Contact Type: host coordinator Contact Name: Steve Nair Notes: BILL#2- See tcm note. Created By: Steve Nair Date: August 07, 2023 Method: Phone call Type: Outbound Duration (min): -- Outcome: No answer Contact Type: host coordinator Contact Name: Steve Nair Notes: TCM#1- follow up call- no ansswer, no vm. Created By: Steve Nair Date: August 06, 2023 Method: Phone call Type: Outbound Duration (min): 7 Outcome: Case discussion Contact Type: host coordinator Contact Name: Steve Nair Notes: TCM#1- see tcm note. Created By: Steve Nair Date: August 06, 2023 Method: Phone call Type: Outbound Duration (min): -- Outcome: No answer Contact Type: host coordinator Contact Name: Steve Nair Notes: TCM#1- attemtped to reach patient, no answer, no vm. CN will try again later. Created By: Steve Nair [facility] Medicine Office/Clini c [place] 09-03-2023 Family Medicine Office/Clinic Note HPI Staff [...] 08/07/2013 Recorded tetanus-diphtheria toxoids 03/19/2004 Recorded Normal [facility] Comment on above: Result Comment: Elec tronically Signed By: Camila Max\.br\Date and Time Signed: 09/03/23 10:55 EDT Ambulatory Visit Summaryon 0 08-27-2023 Ambulatory Visit Summary MICHEAL BRICE Jason :1940 Visit Date:08/27/2023 Ambulatory Visit Instructions Your [...] 10:00 AM EDT With: Camila Max Where: [facility] Normal [address] [place] [address]- \.br\ Medications\.br \ What How Much When [...] for choosing us for your care.\.br\ \.br\ [facility] C DIFFICILE BY PCRon 024 C. difficile toxin genes KELVIN+probe Ql (Stl) TOXIGENIC C DIFF Positive (qualifier value) 027 NAP1 Negative (qualifier value) Normal PRNEG [facility] Comment on above: Performed By: #### 5 4067-4 #### [facility] ([id number]) [address] [place] [address], [address] [place] [address] Family Medicine Office/Clini c Noteon 08-27-2023 Family [...] Recorded tetanus-diphtheria toxoids 03/19/2004 Recorded Normal [facility] Comment on above: Result Comment: Elec tronically Signed By: Camila Max\.br\Date and Time Signed: 08/27/23 11:38 EDT Population Health 08-21-19 [facility] Case Information Case Priority: None Programs: -- Referral Source: Vocational Counselor Referral Reason: Care coordination Case Type: Transition [...] (min): 10 Outcome: Case discussion Contact Type: host coordinator Contact Name: Steve Nair Notes: TCM#2- See tcm note. Created By: Steve Nair Date: August 07, 2023 Method: Phone call Type: Outbound Duration (min): -- Outcome: No answer Contact Type: host coordinator Contact Name: Steve Nair Notes: TCM#1- follow up call- no ansswer, no vm. Created By: Steve Nair Date: August 06, 2023 Method: Phone call Type: Outbound Duration (min): 7 Outcome: Case discussion Contact Type: host coordinator Contact Name: Steve Nair Notes: TCM#1- see tcm note. Created By: Steve Nair Date: August 06, 2023 Method: Phone call Type: Outbound Duration (min): -- Outcome: No answer Contact Type: host coordinator Contact Name: Steve Nair Notes: TCM#1- attemtped to reach patient, no answer, no vm. CN will try again later. Created By: Steve Nair [facility] 08-14-19 [facility] Case Information Case Priority: None Programs: -- Referral Source: Vocational Counselor Referral Reason: Care coordination Case Type: Transition Care Management Risk Score: -- Case Status: Enrolled (August 06, 2023) Date Assigned: August 06, 2023 Assigned By: Steve Nair Date Enrolled: August 06, 2023 Assigned Primary Personnel: Steve Nari Assigned Secondary Personnel: -- Case Physician: Camila [...] (min): 10 Outcome: Case discussion Contact Type: host coordinator Contact Name: Steve Nair Notes: TCM#2- See tcm note. Created By: Steve Nair Date: August 07, 2023 Method: Phone call Type: Outbound Duration (min): -- Outcome: No answer Contact Type: host coordinator Contact Name: Steve Nair Notes: TCM#1- follow up call- no ansswer, no vm. Created By: Steve Nair Date: August 06, 2023 Method: Phone call Type: Outbound Duration (min): 7 Outcome: Case discussion Contact Type: host coordinator Contact Name: Steve Nair Notes: TCM#1- see tcm note. Created By: Steve Nair Date: August 06, 2023 Method: Phone call Type: Outbound Duration (min): -- Outcome: No answer Contact Type: host coordinator Contact Name: Steve Nair Notes: TCM#1- attemtped to reach patient, no answer, no vm. CN will try again later. Created By: Steve Nair [facility] Transfer Inon 08-10-2023 Transfer In [id number] .00TIFF [facility] Auth for Release of Medical Recordson 08-07-2023 Auth for Release of Medical Records [id number]. 00TIFF [facility] ED Note-Physicianon 08-07-19 ED Note-Physician [id number] .00TIFF Normal [facility] Family Medicine Office/Clini c Noteon 08-07-2023 Family [...] 08/07/2013 Recorded tetanus-diphtheria toxoids 03/19/2004 Recorded Normal [facility] Comment on above: Result Comment: Elec tronically Signed By: Camila Max\.sonido\Date and Time Signed: 08/07/23 11:13 EDT Cult,Aerobe/Anaerobeon 08-05 Cult,Aerobe/Anaerob e Specimen Description .ABDOMEN Direct Exam MANY NEUTROPHILS MODERATE GRAM POSITIVE COCCI IN PAIRS MODERATE GRAM NEGATIVE RODS Culture BACTEROIDES THETAIOTAOMICRON MODERATE GROWTH BETA LACTAMASE POSITIVE Identificati on by MALDI-TOF BACTEROIDES STERCORIS MODERATE GROWTH BETA LACTAMASE POSITIVE Identification by MALDI-TOF NO AEROBIC ORGANISMS ISOLATED Report Status FINAL 08/06/2023 Abnormal [facility] Comment on above: Performed By: #### A ANC #### [facility] [address] [place] [address] Rn Ostomy: Salinas Escalante MD [facility] [address] [place] [address] Rn Ostomy: Willy Henson MD [facility] 08-06-19 [facility] Case Information Case Priority: None Programs: -- Referral Source: Vocational Counselor Referral Reason: Care coordination Case Type: Transition [...] Care Plan Progress Note Admit Date: 07/31/23 [facility] Date of Discharge: 08/03/23 Follow-up appointment scheduled? not at this time, appointment today with surgeon at 1100 Did you understand your discharge instructions? yes, to report to the hospital twice daily at 7 a and 7 p for dressing changes- to ER for weekends and evenings, otpt day mornings Are you able to follow them? [...] Health? no, but would like to have for wound care/ dressing changes Called patient [...] Patient admits she told the staff at [place] she would not go back to the [facility]. Patient states she has a follow up [...] (min): 7 Outcome: Case discussion Contact Type: host coordinator Contact Name: Steve Nair Notes: TCM#1- see tcm note. Created By: Steve Nair Date: August 06, 2023 Method: Phone call Type: Outbound Duration (min): -- Outcome: No answer Contact Type: host coordinator Contact Name: Steve Nair Notes: TCM#1- attemtped to reach patient, no answer, no vm. CN will try again later. Created By: Steve Nair [facility] CBC auto differentialon 05- Basophils (Bld) [#/Vol] 0.12 10*3/uL [facility] Basophils/100 WBC (Bld) 1 % 0 - 2 % [facility] Eosinophils (Bld) [#/Vol] 0.00 10*3/uL [facility] Eosinophils/100 WBC (Bld) 0 % Low 1 - 4 % [facility] Erythrocyte distribution width (RBC) [Ratio] 12.5 % 11.8 - 14.4 % [facility] Hematocrit (Bld) [Volume fraction] 35.0 % Low 36.3 - 47.1 % [facility] Hemoglobin (Bld) [Mass/Vol] 10.9 g/dL Low 11.9 - 15.1 g/dL [facility] Immature granulocytes (Bld) [#/Vol] 0.12 10*3/uL [facility] Immature granulocytes/100 WBC (Bld) 1 % High 0 [facility] Interpretation and review of laboratory results Abnormal [facility] Lymphocytes/100 WBC (Bld) 74 % High 24 - 43 % [facility] Lymphocytes/100 WBC (Bld) 8.73 % High [facility] MCH (RBC) [Entitic mass] 28.6 pg 25.2 - 33.5 pg [facility] MCHC (RBC) [Mass/Vol] 31.1 g/dL 28.4 - 34.8 g/dL [facility] MCV (RBC) [Entitic vol] 91.9 fL 82.6 - 102.9 fL [facility] Monocytes/100 WBC (Bld) 4 % 3 - 12 % [facility] Monocytes/100 WBC (Bld) 0.47 % [facility] Morphology Ki (Bld) [Interp] Normal [facility] Neutrophils/100 WBC (Bld) 20 % Low 36 - 65 % [facility] Nucleated RBC/100 WBC (Bld) [Ratio] 0.0 % 0.0 per 100 WBC [facility] Platelet mean volume (Bld) [Entitic vol] 10.8 fL 8.1 - 13.5 fL [facility] Platelets (Bld) [#/Vol] 240 10*3/uL [facility] RBC (Bld) [#/Vol] 3.81 10*6/uL Low 3.95 - 5.1 1 m/uL [facility] Segmented neutrophils/100 WBC (Bld) 2.36 % [facility] WBC other (Bld) [#/Vol] 11.8 High [facility] CBC with Diffon 08-03-2023 Abs. Basophil 0.12 k/uL Normal 0.0-0.2 [facility] Comment on above: Performed By: #### C DP, CMPX #### [facility] [address] [place] [address] [place] [address] Rn Ostomy: Willy Henson MD Abs.Imm.Granulocyte 0.12 k/uL Normal 0.00-0.30 [facility] Comment on above: Performed By: #### C DP, CMPX #### [facility] [address] [place], [place] [id number] Rn Ostomy: Willy Henson MD Abs.Neutrophil (Seg) 2.36 k/uL Normal 1.50-8.10 [facility] Comment on above: Performed By: #### C DP, CMPX #### [facility] Lab [address] [place] [address] Rn Ostomy: Willy Henson MD Basophils/100 WBC (Bld) 1 % Normal 0-2 [facility] Comment on above: Performed By: #### C DP, CMPX #### [facility] [address] [place], [place] [address] Rn Ostomy: Willy Henosn MD Eosinophils (Bld) [#/Vol] 0.00 10*3/uL Normal 0.00-0.44 [facility] Comment on above: Performed By: #### C DP, CMPX #### [facility] [address] [place], [facility]83 Rn Ostomy: Willy Henson MD Eosinophils/100 WBC (Bld) 0 % Low 1-4 [facility] Comment on above: Performed By: #### C DP, CMPX #### [address] [place] [address] Rn Ostomy: Willy Henson MD Immature granulocytes/100 WBC (Bld) 1 % High 0 [facility] Comment on above: Performed By: #### C DP, CMPX #### [address] [place], [place] [address] Rn Ostomy: Willy Henson MD Lymphocytes (Bld) [#/Vol] 8.73 10*3/uL High 1.10-3.70 [facility] Comment on above: Performed By: #### C DP, CMPX #### [facility] [address] [place], [facility]83 Rn Ostomy: Willy Henson MD Lymphocytes/100 WBC (Bld) 74 % High 24-43 [facility] Comment on above: Performed By: #### C DP, CMPX #### [facility] [address] [place] [address] Rn Ostomy: Willy Henson MD Monocytes (Bld) [#/Vol] 0.47 10*3/uL Normal 0.10-1.20 [facility] Comment on above: Performed By: #### C DP, CMPX #### [facility] [address] [place], [place] [id number] Rn Ostomy: Willy Henson MD Monocytes/100 WBC (Bld) 4 % Normal 3-12 [facility] Comment on above: Performed By: #### C DP, CMPX #### [facility] [address] [place], [place] [id number] Rn Ostomy: Willy Henson MD Morphology Ki (Bld) [Interp] Normal Normal [facility] Comment on above: Performed By: #### C DP, CMPX #### [facility] [address] [place], [place] [id number] Rn Ostomy: Willy Henson MD Neutrophil (Seg) 20 % Low 36-65 [facility] Comment on above: Performed By: #### C DP, CMPX #### [facility] [address] [place], [facility]83 Rn Ostomy: Willy Henson MD Erythrocyte distribution width (RBC) [Ratio] 12.5 % Normal 11.8-14.4 [facility] Comment on above: Performed By: #### C DP, CMPX #### [address] [place], [place] [id number] Rn Ostomy: Willy Henson MD Hematocrit (Bld) [Volume fraction] 35.0 % Low 36.3-47.1 [facility] Comment on above: Performed By: #### C DP, CMPX #### [facility] [address] [place] [address] Rn Ostomy: Willy Henson MD Hemoglobin (Bld) [Mass/Vol] 10.9 g/dL Low 11.9-15.1 [facility] Comment on above: Performed By: #### C DP, CMPX #### [address] [place] [address] Rn Ostomy: Willy Henson MD MCH (RBC) [Entitic mass] 28.6 pg Normal 25.2-33.5 [facility] Comment on above: Performed By: #### C DP, CMPX #### [facility] [address] [place] [address] Rn Ostomy: Willy Henson MD MCHC (RBC) [Mass/Vol] 31.1 g/dL Normal 28.4-34.8 [facility] Comment on above: Performed By: #### C DP, CMPX #### [address] [place] [address] Rn Ostomy: Willy Henson MD MCV (RBC) [Entitic vol] 91.9 fL Normal 82.6-102.9 [facility] Comment on above: Performed By: #### C DP, CMPX #### [address] [place], [place] [id number] Rn Ostomy: Willy Henson MD NRBC Automated 0.0 per 100 WBC Normal 0.0 [facility] Comment on above: Performed By: #### C DP, CMPX #### [address] [place], [place] [id number] Rn Ostomy: Willy Henson MD Platelet mean volume (Bld) [Entitic vol] 10.8 fL Normal 8.1-13.5 [facility] Comment on above: Performed By: #### C DP, CMPX #### [facility] [address] [place] [address] [place] [place], [place] [id number] Rn Ostomy: Willy Henson MD Platelets (Bld) [#/Vol] 240 10*3/uL Normal 138-453 [facility] Comment on above: Performed By: #### C DP, CMPX #### [facility] [address] [place] [address] Rn Ostomy: Willy Henson MD RBC (Bld) [#/Vol] 3.81 10*6/uL Low 3.95-5.11 [facility] Comment on above: Performed By: #### C DP, CMPX #### [facility] [address] [place], [place] [id number] Rn Ostomy: Wilyl Henson MD WBC (Bld) [#/Vol] 11.8 10*3/uL High 3.5-11.3 [facility] Comment on above: Performed By: #### C DP, CMPX #### [facility] [address] [place], [place] [id number] Rn Ostomy: Willy Henson MD Comp Metabolic Pr/rfx MGon 0 - Albumin [Mass/Vol] 3.4 g/dL Low 3.5-5.2 [facility] Comment on above: Performed By: #### C DP, CMPX #### [facility] [address] [place] [address] [place] [address] Rn Ostomy: Willy Henson MD Albumin/Glob Ratio 1.4 Normal 1.0-2.5 [facility] Comment on above: Performed By: #### C DP, CMPX #### [address] [place] [address] Rn Ostomy: Willy Henson MD Alkaline Phos 105 U/L High 35-104 [facility] Comment on above: Performed By: #### C DP, CMPX #### [facility] [address] [place] [address] Rn Ostomy: Willy Henson MD ALT [Catalytic activity/Vol] 13 U/L Normal 5-33 [facility] Comment on above: Performed By: #### C DP, CMPX #### [facility] [address] [place], [place] [id number] Rn Ostomy: Willy Henson MD Anion gap [Moles/Vol] 10 mmol/L Normal 9-17 [facility] Comment on above: Performed By: #### C DP, CMPX #### [facility] [address] [place], [place] [id number] Rn Ostomy: Willy Henson MD AST [Catalytic activity/Vol] 15 U/L Normal <32 [facility] Comment on above: Performed By: #### C DP, CMPX #### [facility] [address] [place], [place] [id number] Rn Ostomy: Willy Henson MD Bilirubin [Mass/Vol] 0.2 mg/dL Low 0.3-1.2 [facility] Comment on above: Performed By: #### C DP, CMPX #### [facility] [address] [place], [place] 5176083 Rn Ostomy: Willy Henson MD BUN/CRE Ratio 21 High 9-20 [facility] Comment on above: Performed By: #### C DP, CMPX #### [facility] [address] [place], [place] 2326083 Rn Ostomy: Willy Henson MD Calcium [Mass/Vol] 9.1 mg/dL Normal 8.6-10.4 [facility] Comment on above: Performed By: #### C DP, CMPX #### [facility] [address] [place], [place] [id number] Rn Ostomy: Willy Henson MD Chloride [Moles/Vol] 107 mmol/L Normal 98-107 [facility] Comment on above: Performed By: #### C DP, CMPX #### [facility] [address] [place], [place] 2616383 Rn Ostomy: Willy Henson MD CO2 [Moles/Vol] 23 mmol/L Normal 20-31 [facility] Comment on above: Performed By: #### C DP, CMPX #### [facility] [address] [place], [place] 1107683 Rn Ostomy: Willy Henson MD Creatinine [Mass/Vol] 0.8 mg/dL Normal 0.5-0.9 [facility] Comment on above: Performed By: #### C DP, CMPX #### [facility] [address] [place] [address] Rn Ostomy: Willy Henson MD GFR/1.73 sq M.predicted among non-blacks MDRD (S/P/Bld) [Vol rate/Area] 74 mL/min/{1.73_m2} Normal >60 [facility] Comment on above: Result Comment: These [...] Performed By: #### C DP, CMPX #### [facility] [address] [place], [place] 1095183 Rn Ostomy: Willy Henson MD Glucose [Mass/Vol] 91 mg/dL Normal 70-99 [facility] Comment on above: Performed By: #### C DP, CMPX #### [facility] [address] [place] [address] Rn Ostomy: Willy Henson MD Potassium [Moles/Vol] 4.2 mmol/L Normal 3.7-5.3 [facility] Comment on above: Performed By: #### C DP, CMPX #### [facility] [address] [place] [address] Rn Ostomy: Willy Henson MD Protein [Mass/Vol] 5.9 g/dL Low 6.4-8.3 [facility] Comment on above: Performed By: #### C DP, CMPX #### [facility] [address] [place], [place] 4408583 Rn Ostomy: Willy Henson MD Sodium [Moles/Vol] 140 mmol/L Normal 135-144 [facility] Comment on above: Performed By: #### C DP, CMPX #### [facility] [address] [place] [address] Rn Ostomy: Willy Henson MD Urea nitrogen [Mass/Vol] 17 mg/dL Normal 8-23 [facility] Comment on above: Performed By: #### C DP, CMPX #### [facility] [address] [place], [place] [address] Rn Ostomy: Willy Henson MD Comprehensive Metabolic Pane l w/ Reflex to MGon 08-03-2023 Albumin [Mass/Vol] 3.4 g/dL Low 3.5 - 5.2 g/dL [facility] Albumin/Globulin [Mass ratio] 1.4 {ratio} 1.0 - 2.5 [facility] ALP [Catalytic activity/Vol] 105 U/L High 35 - 104 U/L [facility] ALT [Catalytic activity/Vol] 13 U/L 5 - 33 U/L [facility] Anion gap [Moles/Vol] 10 mmol/L 9 - 17 mmol/L [facility] AST [Catalytic activity/Vol] 15 U/L NINF - 32 U/L [facility] Bilirubin [Mass/Vol] 0.2 mg/dL Low 0.3 - 1.2 mg/dL [facility] Calcium [Mass/Vol] 9.1 mg/dL 8.6 - 10. 4 mg/dL [facility] Chloride [Moles/Vol] 107 mmol/L 98 - 107 mmol/L [facility] CO2 [Moles/Vol] 23 mmol/L 20 - 31 mmol/L [facility] Creatinine [Mass/Vol] 0.8 mg/dL 0.5 - 0.9 mg/dL [facility] Est, Glom Filt Rate 74 - PINF [facility] Comment on above: These results are not [...] [Mass/Vol] 91 mg/dL 70 - 99 mg/dL [facility] Interpretation and review of laboratory results Abnormal [facility] Potassium [Moles/Vol] 4.2 mmol/L 3.7 - 5.3 mmol/L [facility] Protein [Mass/Vol] 5.9 g/dL Low 6.4 - 8.3 g/dL [facility] Sodium [Moles/Vol] 140 mmol/L 135 - 144 mmol/L [facility] Urea nitrogen [Mass/Vol] 17 mg/dL 8 - 23 mg/dL [facility] Urea nitrogen/Creatinine [Mass ratio] 21 mg/mg High 9 - 20 [facility] EKG Rhythm Stripon [address] [facility] CBC auto differentialon 07-17 Basophils (Bld) [#/Vol] 0.00 10*3/uL [facility] Basophils/100 WBC (Bld) 0 % 0 - 2 % [facility] Eosinophils (Bld) [#/Vol] 0.00 10*3/uL [facility] Eosinophils/100 WBC (Bld) 0 % Low 1 - 4 % [facility] Erythrocyte distribution width (RBC) [Ratio] 12.2 % 11.8 - 14.4 % [facility] Hematocrit (Bld) [Volume fraction] 30.9 % Low 36.3 - 47.1 % [facility] Hemoglobin (Bld) [Mass/Vol] 9.9 g/dL Low 11.9 - 15.1 g/dL [facility] Immature granulocytes (Bld) [#/Vol] 0.00 10*3/uL [facility] Immature granulocytes/100 WBC (Bld) 0 % 0 [facility] Interpretation and review of laboratory results Abnormal [facility] Lymphocytes/100 WBC (Bld) 56 % High 24 - 43 % [facility] Lymphocytes/100 WBC (Bld) 5.71 % High [facility] MCH (RBC) [Entitic mass] 28.6 pg 25.2 - 33.5 pg [facility] MCHC (RBC) [Mass/Vol] 32.0 g/dL 28.4 - 34.8 g/dL [facility] MCV (RBC) [Entitic vol] 89.3 fL 82.6 - 102.9 fL [facility] Monocytes/100 WBC (Bld) 8 % 3 - 12 % [facility] Monocytes/100 WBC (Bld) 0.82 % [facility] Morphology Ki (Bld) [Interp] Normal [facility] Neutrophils/100 WBC (Bld) 36 % 36 - 65 % [facility] Nucleated RBC/100 WBC (Bld) [Ratio] 0.0 % 0.0 per 100 WBC [facility] Platelet mean volume (Bld) [Entitic vol] 11.1 fL 8.1 - 13.5 fL [facility] Platelets (Bld) [#/Vol] 222 10*3/uL [facility] RBC (Bld) [#/Vol] 3.46 10*6/uL Low 3.95 - 5.1 1 m/uL [facility] Segmented neutrophils/100 WBC (Bld) 3.67 % [facility] WBC other (Bld) [#/Vol] 10.2 [facility] CBC with Diffon 08-02-2023 Abs. Basophil 0.00 k/uL Normal 0.0-0.2 [facility] Comment on above: Performed By: #### B MP, CDP #### [facility] [address] [place] [address] Rn Ostomy: Willy Henson MD Abs.Imm.Granulocyte 0.00 k/uL Normal 0.00-0.30 [facility] Comment on above: Performed By: #### B MP, CDP #### [facility] [address] [place], [place] [address] Rn Ostomy: Willy Henson MD Abs.Neutrophil (Seg) 3.67 k/uL Normal 1.50-8.10 [facility] Comment on above: Performed By: #### B MP, CDP #### [address] [place], [place] [address] Rn Ostomy: Willy Henson MD Basophils/100 WBC (Bld) 0 % Normal 0-2 [facility] Comment on above: Performed By: #### B MP, CDP #### [address] [place], [facility]83 Rn Ostomy: Willy Henson MD Eosinophils (Bld) [#/Vol] 0.00 10*3/uL Normal 0.00-0.44 [facility] Comment on above: Performed By: #### B MP, CDP #### [address] [place], [facility]83 Rn Ostomy: Willy Henson MD Eosinophils/100 WBC (Bld) 0 % Low 1-4 [facility] Comment on above: Performed By: #### B MP, CDP #### [address] [place], [place] [address] Rn Ostomy: Willy Henson MD Immature granulocytes/100 WBC (Bld) 0 % Normal 0 [facility] Comment on above: Performed By: #### B MP, CDP #### [address] [place], [facility]83 Rn Ostomy: Willy Henson MD Lymphocytes (Bld) [#/Vol] 5.71 10*3/uL High 1.10-3.70 [facility] Comment on above: Performed By: #### B MP, CDP #### [facility] [address] [place], [place] [id number] Rn Ostomy: Willy Henson MD Lymphocytes/100 WBC (Bld) 56 % High 24-43 [facility] Comment on above: Performed By: #### B MP, CDP #### [facility] [address] [place], [place] [id number] Rn Ostomy: Willy Henson MD Monocytes (Bld) [#/Vol] 0.82 10*3/uL Normal 0.10-1.20 [facility] Comment on above: Performed By: #### B MP, CDP #### [address] [place], [place] 7256383 Rn Ostomy: Willy Henson MD Monocytes/100 WBC (Bld) 8 % Normal 3-12 [facility] Comment on above: Performed By: #### B SKYLAR, CDP #### [address] [place] [address] Rn Ostomy: Willy Henson MD Morphology Ki (Bld) [Interp] Normal Normal [facility] Comment on above: Performed By: #### B MP, CDP #### [address] [place], [place] [id number] Rn Ostomy: Willy Henson MD Neutrophil (Seg) 36 % Normal 36-65 [facility] Comment on above: Performed By: #### B MP, CDP #### [facility] [address] [place] [address] [place] [place], [place] 9186583 Rn Ostomy: Willy Henson MD Erythrocyte distribution width (RBC) [Ratio] 12.2 % Normal 11.8-14.4 [facility] Comment on above: Performed By: #### B MP, CDP #### [address] [place], [place] [id number] Rn Ostomy: Willy Henson MD Hematocrit (Bld) [Volume fraction] 30.9 % Low 36.3-47.1 [facility] Comment on above: Performed By: #### B SKYLAR, CDP #### [address] [place] [address] Rn Ostomy: Willy Henson MD Hemoglobin (Bld) [Mass/Vol] 9.9 g/dL Low 11.9-15.1 [facility] Comment on above: Performed By: #### B SKYLAR, CDP #### [address] [place] [address] Rn Ostomy: Willy Henson MD MCH (RBC) [Entitic mass] 28.6 pg Normal 25.2-33.5 [facility] Comment on above: Performed By: #### B SKYLAR, CDP #### [address] [place] [address] Rn Ostomy: Willy Henson MD MCHC (RBC) [Mass/Vol] 32.0 g/dL Normal 28.4-34.8 [facility] Comment on above: Performed By: #### B SKYLAR, CDP #### [address] [place] [address] Rn Ostomy: Willy Henson MD MCV (RBC) [Entitic vol] 89.3 fL Normal 82.6-102.9 [facility] Comment on above: Performed By: #### B SKYLAR, CDP #### [address] [place] [address] Rn Ostomy: Willy Henson MD NRBC Automated 0.0 per 100 WBC Normal 0.0 [facility] Comment on above: Performed By: #### B SKYLAR, CDP #### [address] [place] [address] Rn Ostomy: Willy Henson MD Platelet mean volume (Bld) [Entitic vol] 11.1 fL Normal 8.1-13.5 [facility] Comment on above: Performed By: #### B SKYLAR, CDP #### [facility] [address] [place] [address] Rn Ostomy: Willy Henson MD Platelets (Bld) [#/Vol] 222 10*3/uL Normal 138-453 [facility] Comment on above: Performed By: #### B MP, CDP #### [facility] [address] [place], [place] [id number] Rn Ostomy: Willy Henson MD RBC (Bld) [#/Vol] 3.46 10*6/uL Low 3.95-5.11 [facility] Comment on above: Performed By: #### B SKYLAR, CDP #### [facility] [address] [place], [place] 8073183 Rn Ostomy: Willy Henson MD WBC (Bld) [#/Vol] 10.2 10*3/uL Normal 3.5-11.3 [facility] Comment on above: Performed By: #### B SKYLAR, CDP #### [facility] [address] [place], [place] [address]83 Rn Ostomy: Willy Henson MD Comp Metabolic Pr/rfx MGon 0 - Albumin [Mass/Vol] 3.3 g/dL Low 3.5-5.2 [facility] Comment on above: Performed By: #### B SKYLAR, CDP #### [facility] [address] [place], [place] [id number] Rn Ostomy: Willy Henson MD Albumin/Glob Ratio 1.6 Normal 1.0-2.5 [facility] Comment on above: Performed By: #### B SKYLAR, CDP #### [facility] [address] [place], [place] 5125383 Rn Ostomy: Willy Henson MD Alkaline Phos 102 U/L Normal 35-104 [facility] Comment on above: Performed By: #### B SKYLAR, CDP #### [facility] [address] [place], [place] [id number] Rn Ostomy: Willy Henson MD ALT [Catalytic activity/Vol] 10 U/L Normal 5-33 [facility] Comment on above: Performed By: #### B MP, CDP #### [facility] [address] [place], [place] [address]22883 Rn Ostomy: Willy Henson MD Anion gap [Moles/Vol] 8 mmol/L Low 9-17 [facility] Comment on above: Performed By: #### B MP, CDP #### [facility] [address] [place], [place] 0001783 Rn Ostomy: Willy Henson MD AST [Catalytic activity/Vol] 11 U/L Normal <32 [facility] Comment on above: Performed By: #### B SKYLAR, CDP #### [facility] [address] [place], [place] [id number] Rn Ostomy: Willy Henson MD Bilirubin [Mass/Vol] 0.3 mg/dL Normal 0.3-1.2 [facility] Comment on above: Performed By: #### B SKYLAR, CDP #### [facility] [address] [place], [place] [id number] Rn Ostomy: Willy Henson MD BUN/CRE Ratio 26 High 9-20 [facility] Comment on above: Performed By: #### B MP, CDP #### [facility] [address] [place], [place] [id number] Rn Ostomy: Willy Henson MD Calcium [Mass/Vol] 8.8 mg/dL Normal 8.6-10.4 [facility] Comment on above: Performed By: #### B MP, CDP #### [facility] [address] [place], [place] [address]22783 Rn Ostomy: Willy Henson MD Chloride [Moles/Vol] 107 mmol/L Normal 98-107 [facility] Comment on above: Performed By: #### B SKYLAR, CDP #### [facility] [address] [place] [address] Rn Ostomy: Willy Henson MD CO2 [Moles/Vol] 24 mmol/L Normal 20-31 [facility] Comment on above: Performed By: #### B SKYLAR, CDP #### [facility] [address] [place] [address] Rn Ostomy: Willy Henson MD Creatinine [Mass/Vol] 0.7 mg/dL Normal 0.5-0.9 [facility] Comment on above: Performed By: #### B SKYLAR, CDP #### [facility] [address] [place] [address] Rn Ostomy: Willy Henson MD GFR/1.73 sq M.predicted among non-blacks MDRD (S/P/Bld) [Vol rate/Area] 87 mL/min/{1.73_m2} Normal >60 [facility] Comment on above: Result Comment: These [...] Performed By: #### B SKYLAR, CDP #### [facility] [address] [place] [address] Rn Ostomy: Willy Henson MD Glucose [Mass/Vol] 105 mg/dL High 70-99 [facility] Comment on above: Performed By: #### B SKYLAR, CDP #### [facility] [address] [place] [address] Rn Ostomy: Willy Henson MD Potassium [Moles/Vol] 4.2 mmol/L Normal 3.7-5.3 [facility] Comment on above: Performed By: #### B SKYLAR, CDP #### [facility] [address] [place] [address] Rn Ostomy: Willy Henson MD Protein [Mass/Vol] 5.4 g/dL Low 6.4-8.3 [facility] Comment on above: Performed By: #### B SKYLAR, CDP #### [facility] [address] [place] [address] Rn Ostomy: Willy Henson MD Sodium [Moles/Vol] 139 mmol/L Normal 135-144 [facility] Comment on above: Performed By: #### B SKYLAR, CDP #### [facility] [address] [place] [address] Rn Ostomy: Willy Henson MD Urea nitrogen [Mass/Vol] 18 mg/dL Normal 8-23 [facility] Comment on above: Performed By: #### B SKYLAR, CDP #### [facility] [address] [place] [address] Rn Ostomy: Willy Henson MD Comprehensive Metabolic Pane l w/ Reflex to MGon 08-02-2023 Albumin [Mass/Vol] 3.3 g/dL Low 3.5 - 5.2 g/dL [facility] Albumin/Globulin [Mass ratio] 1.6 {ratio} 1.0 - 2.5 [facility] ALP [Catalytic activity/Vol] 102 U/L 35 - 104 U/L [facility] ALT [Catalytic activity/Vol] 10 U/L 5 - 33 U/L [facility] Anion gap [Moles/Vol] 8 mmol/L Low 9 - 17 mmol/L [facility] AST [Catalytic activity/Vol] 11 U/L NINF - 32 U/L [facility] Bilirubin [Mass/Vol] 0.3 mg/dL 0.3 - 1.2 mg/dL [facility] Calcium [Mass/Vol] 8.8 mg/dL 8.6 - 10. 4 mg/dL [facility] Chloride [Moles/Vol] 107 mmol/L 98 - 107 mmol/L [facility] CO2 [Moles/Vol] 24 mmol/L 20 - 31 mmol/L [facility] Creatinine [Mass/Vol] 0.7 mg/dL 0.5 - 0.9 mg/dL [facility] Taz Brand Filt Rate 87 - PINF [facility] Comment on above: These results are not [...] 105 mg/dL High 70 - 99 mg/dL [facility] Interpretation and review of laboratory results Abnormal [facility] Potassium [Moles/Vol] 4.2 mmol/L 3.7 - 5.3 mmol/L [facility] Protein [Mass/Vol] 5.4 g/dL Low 6.4 - 8.3 g/dL [facility] Sodium [Moles/Vol] 139 mmol/L 135 - 144 mmol/L [facility] Urea nitrogen [Mass/Vol] 18 mg/dL 8 - 23 mg/dL [facility] Urea nitrogen/Creatinine [Mass ratio] 26 mg/mg High 9 - 20 [facility] EKG Rhythm Stripon [facility] CBC auto differentialon 07-17 Basophils (Bld) [#/Vol] [facility] Basophils/100 WBC (Bld) 0 % 0 - 2 % [facility] Eosinophils (Bld) [#/Vol] [facility] Eosinophils/100 WBC (Bld) 0 % Low 1 - 4 % [facility] Erythrocyte distribution width (RBC) [Ratio] 11.9 % 11.8 - 14.4 % [facility] Hematocrit (Bld) [Volume fraction] 35.6 % Low 36.3 - 47.1 % [facility] Hemoglobin (Bld) [Mass/Vol] 11.5 g/dL Low 11.9 - 15.1 g/dL [facility] Immature granulocytes (Bld) [#/Vol] 0.04 10*3/uL [facility] Immature granulocytes/100 WBC (Bld) 0 % 0 [facility] Interpretation and review of laboratory results Abnormal [facility] Lymphocytes/100 WBC (Bld) 44 % High 24 - 43 % [facility] Lymphocytes/100 WBC (Bld) 5.25 % High [facility] MCH (RBC) [Entitic mass] 29.0 pg 25.2 - 33.5 pg [facility] MCHC (RBC) [Mass/Vol] 32.3 g/dL 28.4 - 34.8 g/dL [facility] MCV (RBC) [Entitic vol] 89.7 fL 82.6 - 102.9 fL [facility] Monocytes/100 WBC (Bld) 1 % Low 3 - 12 % [facility] Monocytes/100 WBC (Bld) 0.15 % [facility] Neutrophils/100 WBC (Bld) 55 % 36 - 65 % [facility] Nucleated RBC/100 WBC (Bld) [Ratio] 0.0 % 0.0 per 100 WBC [facility] Platelet mean volume (Bld) [Entitic vol] 11.0 fL 8.1 - 13.5 fL [facility] Platelets (Bld) [#/Vol] 240 10*3/uL [facility] RBC (Bld) [#/Vol] 3.97 10*6/uL 3.95 - 5.1 1 m/uL [facility] Segmented neutrophils/100 WBC (Bld) 6.38 % [facility] WBC other (Bld) [#/Vol] 11.9 High [facility] CBC with Diffon 08-01-2023 Abs. Basophil <0.03 Normal 0.00-0.20 [facility] Comment on above: Performed By: #### C DP, CMPX #### [facility] [address] [place], [place] [address] Rn Ostomy: Willy Henson MD Abs. Eosinophil <0.03 Normal 0.00-0.44 [facility] Comment on above: Performed By: #### C DP, CMPX #### [address] [place], [place] [address] Rn Ostomy: Willy Henson MD Abs.Imm.Granulocyte 0.04 k/uL Normal 0.00-0.30 [facility] Comment on above: Performed By: #### C DP, CMPX #### [address] [place] [address] Rn Ostomy: Willy Henson MD Abs.Neutrophil (Seg) 6.38 k/uL Normal 1.50-8.10 [facility] Comment on above: Performed By: #### C DP, CMPX #### [address] [place], [facility]83 Rn Ostomy: Willy Henson MD Basophils/100 WBC (Bld) 0 % Normal 0-2 [facility] Comment on above: Performed By: #### C DP, CMPX #### [address] [place], [place] [address] Rn Ostomy: Willy Henson MD Eosinophils/100 WBC (Bld) 0 % Low 1-4 [facility] Comment on above: Performed By: #### C DP, CMPX #### [address] [place] [address] Rn Ostomy: Willy Henson MD Erythrocyte distribution width (RBC) [Ratio] 11.9 % Normal 11.8-14.4 [facility] Comment on above: Performed By: #### C DP, CMPX #### [address] [place], [place] [id number] Rn Ostomy: Willy Henson MD Hematocrit (Bld) [Volume fraction] 35.6 % Low 36.3-47.1 [facility] Comment on above: Performed By: #### C DP, CMPX #### [facility] [address] [place] [address] Dr. [place], [place] [id number] Rn Ostomy: Willy Henson MD Hemoglobin (Bld) [Mass/Vol] 11.5 g/dL Low 11.9-15.1 [facility] Comment on above: Performed By: #### C DP, CMPX #### [address] [place] [id number] Rn Ostomy: Willy Henson MD Immature granulocytes/100 WBC (Bld) 0 % Normal 0 [facility] Comment on above: Performed By: #### C DP, CMPX #### [address] [place] [id number] Rn Ostomy: Willy Henson MD Lymphocytes (Bld) [#/Vol] 5.25 10*3/uL High 1.10-3.70 [facility] Comment on above: Performed By: #### C DP, CMPX #### [address] [place] [id number] Rn Ostomy: Willy Henson MD Lymphocytes/100 WBC (Bld) 44 % High 24-43 [facility] Comment on above: Performed By: #### C DP, CMPX #### [address] [place], [facility]83 Rn Ostomy: Willy Henson MD MCH (RBC) [Entitic mass] 29.0 pg Normal 25.2-33.5 [facility] Comment on above: Performed By: #### C DP, CMPX #### [facility] [address] [place] [address] Dr. [place] [id number] Rn Ostomy: Willy Henson MD MCHC (RBC) [Mass/Vol] 32.3 g/dL Normal 28.4-34.8 [facility] Comment on above: Performed By: #### C DP, CMPX #### [facility] [address] [place], [place] [id number] Rn Ostomy: Willy Henson MD MCV (RBC) [Entitic vol] 89.7 fL Normal 82.6-102.9 [facility] Comment on above: Performed By: #### C DP, CMPX #### [facility] [address] [place], [place] [id number] Rn Ostomy: Willy Henson MD Monocytes (Bld) [#/Vol] 0.15 10*3/uL Normal 0.10-1.20 [facility] Comment on above: Performed By: #### C DP, CMPX #### [address] [place], [place] 6954283 Rn Ostomy: Willy Henson MD Monocytes/100 WBC (Bld) 1 % Low 3-12 [facility] Comment on above: Performed By: #### C DP, CMPX #### [address] [place], [place] 0855583 Rn Ostomy: Willy Henson MD Neutrophil (Seg) 55 % Normal 36-65 [facility] Comment on above: Performed By: #### C DP, CMPX #### [facility] [address] [place], [place] 2153083 Rn Ostomy: Willy Henson MD NRBC Automated 0.0 per 100 WBC Normal 0.0 [facility] Comment on above: Performed By: #### C DP, CMPX #### [address] [place], [place] [id number] Rn Ostomy: Willy Henson MD Platelet mean volume (Bld) [Entitic vol] 11.0 fL Normal 8.1-13.5 [facility] Comment on above: Performed By: #### C DP, CMPX #### [facility] [address] [place], [place] 0874783 Rn Ostomy: Willy Henson MD Platelets (Bld) [#/Vol] 240 10*3/uL Normal 138-453 [facility] Comment on above: Performed By: #### C DP, CMPX #### [facility] [address] [place], [place] 3517783 Rn Ostomy: Willy Henson MD RBC (Bld) [#/Vol] 3.97 10*6/uL Normal 3.95-5.11 [facility] Comment on above: Performed By: #### C DP, CMPX #### [facility] [address] [place] [address] Dr. [place], [place] 5623183 Rn Ostomy: Willy Henson MD WBC (Bld) [#/Vol] 11.9 10*3/uL High 3.5-11.3 [facility] Comment on above: Performed By: #### C DP, CMPX #### [facility] [address] [place] [address] Dr. [place], [place] 5294183 Rn Ostomy: Willy Henson MD Comp Metabolic Pr/rfx MGon 0 5- Albumin [Mass/Vol] 3.5 g/dL Normal 3.5-5.2 [facility] Comment on above: Performed By: #### C DP, CMPX #### [facility] [address] [place], [place] [id number] Rn Ostomy: Willy Henson MD Albumin/Glob Ratio 1.3 Normal 1.0-2.5 [facility] Comment on above: Performed By: #### C DP, CMPX #### [facility] [address] [place] [address] Rn Ostomy: Willy Henson MD Alkaline Phos 129 U/L High 35-104 [facility] Comment on above: Performed By: #### C DP, CMPX #### [facility] [address] [place], [place] 1562583 Rn Ostomy: Willy Henson MD ALT [Catalytic activity/Vol] 11 U/L Normal 5-33 [facility] Comment on above: Performed By: #### C DP, CMPX #### [facility] [address] [place], [place] 8724483 Rn Ostomy: Willy Henson MD Anion gap [Moles/Vol] 11 mmol/L Normal 9-17 [facility] Comment on above: Performed By: #### C DP, CMPX #### [facility] [address] [place], [place] 9385283 Rn Ostomy: Willy Henson MD AST [Catalytic activity/Vol] 15 U/L Normal <32 [facility] Comment on above: Performed By: #### C DP, CMPX #### [facility] [address] [place], [place] 3725483 Rn Ostomy: Willy Henson MD Bilirubin [Mass/Vol] 0.3 mg/dL Normal 0.3-1.2 [facility] Comment on above: Performed By: #### C DP, CMPX #### [facility] [address] [place], [place] 3114683 Rn Ostomy: Willy Henson MD BUN/CRE Ratio 30 High 9-20 [facility] Comment on above: Performed By: #### C DP, CMPX #### [facility] [address] [place], [place] 0500183 Rn Ostomy: Willy Henson MD Calcium [Mass/Vol] 9.2 mg/dL Normal 8.6-10.4 [facility] Comment on above: Performed By: #### C DP, CMPX #### [facility] [address] [place], [place] 7322983 Rn Ostomy: Willy Henson MD Chloride [Moles/Vol] 104 mmol/L Normal 98-107 [facility] Comment on above: Performed By: #### C DP, CMPX #### [facility] [address] [place], [place] 6893883 Rn Ostomy: Willy Henson MD CO2 [Moles/Vol] 23 mmol/L Normal 20-31 [facility] Comment on above: Performed By: #### C DP, CMPX #### [facility] [address] [place] [address] Rn Ostomy: Willy Henson MD Creatinine [Mass/Vol] 0.6 mg/dL Normal 0.5-0.9 [facility] Comment on above: Performed By: #### C DP, CMPX #### [facility] [address] [place] [address] Rn Ostomy: Willy Henson MD GFR/1.73 sq M.predicted among non-blacks MDRD (S/P/Bld) [Vol rate/Area] mL/min/{1.73_m2} Normal >60 [facility] Comment on above: Result Comment: These [...] Performed By: #### C DP, CMPX #### [facility] [address] [place] [address] Rn Ostomy: Willy Hesnon MD Glucose [Mass/Vol] 142 mg/dL High 70-99 [facility] Comment on above: Performed By: #### C DP, CMPX #### [facility] [address] [place] [address] Rn Ostomy: Willy Henson MD Potassium [Moles/Vol] 4.6 mmol/L Normal 3.7-5.3 [facility] Comment on above: Performed By: #### C DP, CMPX #### [facility] [address] [place] [address] Rn Ostomy: Willy Henson MD Protein [Mass/Vol] 6.2 g/dL Low 6.4-8.3 [facility] Comment on above: Performed By: #### C DP, CMPX #### [facility] [address] [place] [address] Rn Ostomy: Wlily Henson MD Sodium [Moles/Vol] 138 mmol/L Normal 135-144 [facility] Comment on above: Performed By: #### C DP, CMPX #### [facility] [address] [place] [address] Rn Ostomy: Willy Henson MD Urea nitrogen [Mass/Vol] 18 mg/dL Normal 8-23 [facility] Comment on above: Performed By: #### C DP, CMPX #### [facility] [address] [place] [address] Rn Ostomy: Willy Henson MD Comprehensive Metabolic Pane l w/ Reflex to MGon 08-01-2023 Albumin [Mass/Vol] 3.5 g/dL 3.5 - 5.2 g/dL [facility] Albumin/Globulin [Mass ratio] 1.3 {ratio} 1.0 - 2.5 [facility] ALP [Catalytic activity/Vol] 129 U/L High 35 - 104 U/L [facility] ALT [Catalytic activity/Vol] 11 U/L 5 - 33 U/L [facility] Anion gap [Moles/Vol] 11 mmol/L 9 - 17 mmol/L [facility] AST [Catalytic activity/Vol] 15 U/L NINF - 32 U/L [facility] Bilirubin [Mass/Vol] 0.3 mg/dL 0.3 - 1.2 mg/dL [facility] Calcium [Mass/Vol] 9.2 mg/dL 8.6 - 10. 4 mg/dL [facility] Chloride [Moles/Vol] 104 mmol/L 98 - 107 mmol/L [facility] CO2 [Moles/Vol] 23 mmol/L 20 - 31 mmol/L [facility] Creatinine [Mass/Vol] 0.6 mg/dL 0.5 - 0.9 mg/dL [facility] Est, Taz Roberts Rate - PINF [facility] Comment on above: These results are not [...] 142 mg/dL High 70 - 99 mg/dL [facility] Interpretation and review of laboratory results Abnormal [facility] Potassium [Moles/Vol] 4.6 mmol/L 3.7 - 5.3 mmol/L [facility] Protein [Mass/Vol] 6.2 g/dL Low 6.4 - 8.3 g/dL [facility] Sodium [Moles/Vol] 138 mmol/L 135 - 144 mmol/L [facility] Urea nitrogen [Mass/Vol] 18 mg/dL 8 - 23 mg/dL [facility] Urea nitrogen/Creatinine [Mass ratio] 30 mg/mg High 9 - 20 [facility] EKG Rhythm Stripon [facility] Basic Metabolic Panelon 07-17 Anion gap [Moles/Vol] 11 mmol/L 9 - 17 mmol/L [facility] Calcium [Mass/Vol] 9.6 mg/dL 8.6 - 10. 4 mg/dL [facility] Chloride [Moles/Vol] 101 mmol/L 98 - 107 mmol/L [facility] CO2 [Moles/Vol] 26 mmol/L 20 - 31 mmol/L [facility] Creatinine [Mass/Vol] 0.7 mg/dL 0.5 - 0.9 mg/dL [facility] Taz Brand Filt Rate 87 - PINF [facility] Comment on above: These results are not [...] 102 mg/dL High 70 - 99 mg/dL [facility] Interpretation and review of laboratory results Abnormal [facility] Potassium [Moles/Vol] 4.5 mmol/L 3.7 - 5.3 mmol/L [facility] Sodium [Moles/Vol] 138 mmol/L 135 - 144 mmol/L [facility] Urea nitrogen [Mass/Vol] 24 mg/dL High 8 - 23 mg/dL [facility] Urea nitrogen/Creatinine [Mass ratio] 34 mg/mg High 9 - 20 [facility] Basic Metabolic Profon 07-30 Anion gap [Moles/Vol] 11 mmol/L Normal -17 [facility] Comment on above: Performed By: #### B SKYLAR, CDP #### [facility] [address] [place] [address] Rn Ostomy: Willy Henson MD BUN/CRE Ratio 34 High 9-20 [facility] Comment on above: Performed By: #### B SKYLAR, CDP #### [facility] [address] [place] [address] Rn Ostomy: Willy Henson MD Calcium [Mass/Vol] 9.6 mg/dL Normal 8.6-10.4 [facility] Comment on above: Performed By: #### B SKYLAR, CDP #### [facility] [address] [place] [address] Rn Ostomy: Willy Henson MD Chloride [Moles/Vol] 101 mmol/L Normal 98-107 [facility] Comment on above: Performed By: #### B MP, CDP #### [facility] [address] [place], [place] [id number] Rn Ostomy: Willy Henson MD CO2 [Moles/Vol] 26 mmol/L Normal 20-31 [facility] Comment on above: Performed By: #### B SKYLAR, CDP #### [facility] [address] [place] [address] Rn Ostomy: Willy Henson MD Creatinine [Mass/Vol] 0.7 mg/dL Normal 0.5-0.9 [facility] Comment on above: Performed By: #### B SKYLAR, CDP #### [facility] [address] [place] [address] Rn Ostomy: Willy Henson MD GFR/1.73 sq M.predicted among non-blacks MDRD (S/P/Bld) [Vol rate/Area] 87 mL/min/{1.73_m2} Normal >60 [facility] Comment on above: Result Comment: These [...] Performed By: #### B SKYLAR, CDP #### [facility] [address] [place] [address] Rn Ostomy: Willy Henson MD Glucose [Mass/Vol] 102 mg/dL High 70-99 [facility] Comment on above: Performed By: #### B SKYLAR, CDP #### [facility] [address] [place], [place] 9763783 Rn Ostomy: Willy Henson MD Potassium [Moles/Vol] 4.5 mmol/L Normal 3.7-5.3 [facility] Comment on above: Performed By: #### B SKYLAR, CDP #### [facility] [address] [place], [place] 6328683 Rn Ostomy: Willy Henson MD Sodium [Moles/Vol] 138 mmol/L Normal 135-144 [facility] Comment on above: Performed By: #### B SKYLAR, CDP #### [facility] [address] [place] [address] Rn Ostomy: Willy Henson MD Urea nitrogen [Mass/Vol] 24 mg/dL High 8-23 [facility] Comment on above: Performed By: #### B SKYLAR, CDP #### [facility] [address] [place], [place] [id number] Rn Ostomy: Willy Henson MD CBC with Auto Differentialon 07-31-2023 Basophils (Bld) [#/Vol] 0.00 10*3/uL [facility] Basophils/100 WBC (Bld) 0 % 0 - 2 % [facility] Eosinophils (Bld) [#/Vol] 0.00 10*3/uL [facility] Eosinophils/100 WBC (Bld) 0 % Low 1 - 4 % [facility] Erythrocyte distribution width (RBC) [Ratio] 12.1 % 11.8 - 14.4 % [facility] Hematocrit (Bld) [Volume fraction] 36.6 % 36.3 - 47.1 % [facility] Hemoglobin (Bld) [Mass/Vol] 11.7 g/dL Low 11.9 - 15.1 g/dL [facility] Immature granulocytes (Bld) [#/Vol] 0.00 10*3/uL [facility] Immature granulocytes/100 WBC (Bld) 0 % 0 [facility] Interpretation and review of laboratory results Abnormal [facility] Lymphocytes/100 WBC (Bld) 49 % High 24 - 43 % [facility] Lymphocytes/100 WBC (Bld) 5.48 % High [facility] MCH (RBC) [Entitic mass] 28.8 pg 25.2 - 33.5 pg [facility] MCHC (RBC) [Mass/Vol] 32.0 g/dL 28.4 - 34.8 g/dL [facility] MCV (RBC) [Entitic vol] 90.1 fL 82.6 - 102.9 fL [facility] Monocytes/100 WBC (Bld) 3 % 3 - 12 % [facility] Monocytes/100 WBC (Bld) 0.34 % [facility] Morphology Ki (Bld) [Interp] Normal [facility] Neutrophils/100 WBC (Bld) 48 % 36 - 65 % [facility] Nucleated RBC/100 WBC (Bld) [Ratio] 0.0 % 0.0 per 100 WBC [facility] Platelet mean volume (Bld) [Entitic vol] 11.0 fL 8.1 - 13.5 fL [facility] Platelets (Bld) [#/Vol] 249 10*3/uL [facility] RBC (Bld) [#/Vol] 4.06 10*6/uL 3.95 - 5.1 1 m/uL [facility] Segmented neutrophils/100 WBC (Bld) 5.38 % [facility] WBC other (Bld) [#/Vol] 11.2 [facility] CBC with Diffon 07-31-2023 Abs. Basophil 0.00 k/uL Normal 0.0-0.2 [facility] Comment on above: Performed By: #### B SKYLAR, CDP #### [facility] [address] [place] [address] Rn Ostomy: Willy Hneson MD Abs.Imm.Granulocyte 0.00 k/uL Normal 0.00-0.30 [facility] Comment on above: Performed By: #### B SKYLAR, CDP #### [facility] [address] [place], [place] 3362583 Rn Ostomy: Willy Henson MD Abs.Neutrophil (Seg) 5.38 k/uL Normal 1.50-8.10 [facility] Comment on above: Performed By: #### B MP, CDP #### [facility] [address] [place], [place] [address]83 Rn Ostomy: Willy Henson MD Basophils/100 WBC (Bld) 0 % Normal 0-2 [facility] Comment on above: Performed By: #### B MP, CDP #### [address] [place], [place] [address]6983 Rn Ostomy: Willy Henson MD Eosinophils (Bld) [#/Vol] 0.00 10*3/uL Normal 0.00-0.44 [facility] Comment on above: Performed By: #### B SKYLAR, CDP #### [facility] [address] [place] [address] Dr. [place], [place] 7769483 Rn Ostomy: Willy Henson MD Eosinophils/100 WBC (Bld) 0 % Low 1-4 [facility] Comment on above: Performed By: #### B MP, CDP #### [address] [place], [place] [address]66883 Rn Ostomy: Willy Henson MD Immature granulocytes/100 WBC (Bld) 0 % Normal 0 [facility] Comment on above: Performed By: #### B MP, CDP #### [facility] [address] [place] [address] [place]. [place], [place] 3708983 Rn Ostomy: Willy Henson MD Lymphocytes (Bld) [#/Vol] 5.48 10*3/uL High 1.10-3.70 [facility] Comment on above: Performed By: #### B MP, CDP #### [facility] [address] [place] [address] Dr. [place], [place] 4308683 Rn Ostomy: Willy Henson MD Lymphocytes/100 WBC (Bld) 49 % High 24-43 [facility] Comment on above: Performed By: #### B MP, CDP #### [facility] [address] [place], [place] 1504683 Rn Ostomy: Willy Henson MD Monocytes (Bld) [#/Vol] 0.34 10*3/uL Normal 0.10-1.20 [facility] Comment on above: Performed By: #### B MP, CDP #### [facility] [address] [place] [address] Rn Ostomy: Willy Henson MD Monocytes/100 WBC (Bld) 3 % Normal 3-12 [facility] Comment on above: Performed By: #### B MP, CDP #### [facility] [address] [place], [place] 3366483 Rn Ostomy: Willy Henson MD Morphology Ki (Bld) [Interp] Normal Normal [facility] Comment on above: Performed By: #### B SKYLAR, CDP #### [facility] [address] [place] [address] Rn Ostomy: Willy Henson MD Neutrophil (Seg) 48 % Normal 36-65 [facility] Comment on above: Performed By: #### B MP, CDP #### [facility] [address] [place] [address] Rn Ostomy: Willy Henson MD Erythrocyte distribution width (RBC) [Ratio] 12.1 % Normal 11.8-14.4 [facility] Comment on above: Performed By: #### B MP, CDP #### [facility] [address] [place], [place] 2800683 Rn Ostomy: Willy Henson MD Hematocrit (Bld) [Volume fraction] 36.6 % Normal 36.3-47.1 [facility] Comment on above: Performed By: #### B MP, CDP #### [address] [place] [address] Rn Ostomy: Willy Henson MD Hemoglobin (Bld) [Mass/Vol] 11.7 g/dL Low 11.9-15.1 [facility] Comment on above: Performed By: #### B MP, CDP #### [address] [place] [address] Rn Ostomy: Willy Henson MD MCH (RBC) [Entitic mass] 28.8 pg Normal 25.2-33.5 [facility] Comment on above: Performed By: #### B SKYLAR, CDP #### [address] [place] [address] Rn Ostomy: Willy Henson MD MCHC (RBC) [Mass/Vol] 32.0 g/dL Normal 28.4-34.8 [facility] Comment on above: Performed By: #### B SKYLAR, CDP #### [address] [place] [address] Rn Ostomy: Willy Henson MD MCV (RBC) [Entitic vol] 90.1 fL Normal 82.6-102.9 [facility] Comment on above: Performed By: #### B SKYLAR, CDP #### [address] [place] [address] Rn Ostomy: Willy Henson MD NRBC Automated 0.0 per 100 WBC Normal 0.0 [facility] Comment on above: Performed By: #### B SKYLAR, CDP #### [address] [place] [address] Rn Ostomy: Willy Henson MD Platelet mean volume (Bld) [Entitic vol] 11.0 fL Normal 8.1-13.5 [facility] Comment on above: Performed By: #### B SKYLAR, CDP #### [address] [place], [place] [address]48283 Rn Ostomy: Willy Henson MD Platelets (Bld) [#/Vol] 249 10*3/uL Normal 138-453 [facility] Comment on above: Performed By: #### B SKYLAR, CDP #### [facility] [address] [place] [id number] Rn Ostomy: Willy Henson MD RBC (Bld) [#/Vol] 4.06 10*6/uL Normal 3.95-5.11 [facility] Comment on above: Performed By: #### B SKYLAR, CDP #### [facility] [address] [place] [address] Rn Ostomy: Willy Henson MD WBC (Bld) [#/Vol] 11.2 10*3/uL Normal 3.5-11.3 [facility] Comment on above: Performed By: #### B SKYLAR, CDP #### [facility] [address] [place], [place] 9[address]2583 Rn Ostomy: Willy Henson MD CT ABDOMEN PELVIS W [...] Chato Bell MD 07/31/23 Final result Normal [facility] CT Abdomen and Pelvis W cont rast David 07-31-2023 1. Periumbilical rim enhancing collection measuring 3.7 x 3.6 x 4.0 cm with surrounding soft tissue swelling. 2. Septated uterus with probable fibroid. 3. Generalized body wall edema. 4. Left-sided colonic diverticulosis. [facility] RIS CONSOLIDATED EXAMINATION: CT OF THE ABDOMEN AND [...] 4.0 cm with surrounding soft tissue swelling. [facility] Chato Bell MD - 07/31/2023 EXAMINATION: CT OF THE [...] body wall edema. 4. Left-sided colonic diverticulosis. [facility] Radiology Study observation (narrative) [facility] CT Abdomen and Pelvis W cont rast IVOrdered By: Chato Bell on 07-31-2023 [facility] [employer] Work Phone: Ambulatory Visit Summaryon 0 07-26-2023 [...] Follow-Up Appointments Sunday 1:00 PM EST Where: [facility] Family Medicine [place] Normal [facility] Family Medicine Office/Clini c Noteon 07-26-2023 Family Medicine Office/Clinic Note HPI Staff Micheal is an 83 year old female presenting for TCM follow up TCM: Hospital: [facility] Admission date: 07/17/23 Discharge date: 07/18/23 Symptoms [...] day(s), # 30 cap(s), Refills(s) 0, Pharmacy: [facility] #[id number], 158, cm, 07/26/23 10:49:00 EDT, Height/Length Dosing, 86, kg, 07/26/23 10:49:00 EDT, Weight Dosing 2. Surgical wound infection (T81.49XA: Infection following a procedure, other surgical site, initial encounter) skin around surgical site is red and warm to touch. Ordered: cephalexin, 500 mg = 1 cap(s), Oral, TID, X 10 day(s), # 30 cap(s), Refills(s) 0, Pharmacy: [facility] #[id number], 158, cm, 07/26/23 10:49:00 EDT, Height/Length Dosing, 86, kg, 07/26/23 10:49:00 EDT, Weight Dosing 3. BMI 34.0-34.9,adult (Z68.34: Body mass index [BMI] 34.0-34.9, adult) BMI education complete Ordered: cephalexin, 500 mg = 1 cap(s), Oral, TID, X 10 day(s), # 30 cap(s), Refills(s) 0, Pharmacy: [facility] #[id number], 158, cm, 07/26/23 10:49:00 EDT, Height/Length Dosing, 86, kg, 07/26/23 10:49:00 EDT, Weight Dosing 4. Non-smoker (Z78.9: Other specified health status) continue not smoking Ordered: cephalexin, 500 mg = 1 cap(s), Oral, TID, X 10 day(s), # 30 cap(s), Refills(s) 0, Pharmacy: [facility] #[id number], 158, cm, 07/26/23 10:49:00 EDT, Height/Length Dosing, [...] 08/07/2013 Recorded tetanus-diphtheria toxoids 03/19/2004 Recorded Normal [facility] Comment on above: Result Comment: Elec tronically Signed By: Camila Max\.br\Date and Time Signed: 07/26/23 11:08 EDT Auth for Release of Medical Recordson 07-24-2023 Auth for Release of Medical Records [id number] Normal [facility] Population Healthon 07-19-19 [facility] Case Information Case Priority: None Programs: -- Referral Source: Vocational Counselor Referral Reason: Care coordination Case Type: Transition [...] call. Patient has follow up with Alexandro Carlso 07/25 at 1040. Patient denies any further questions or concerns. Communication Events Date: July 19, 2023 Method: Phone call Type: Outbound Duration (min): 3 Outcome: Case discussion Contact Type: host coordinator Contact Name: Steve Nair Notes: BILL#4- see tcm note. Created By: Steve Nair Date: July 11, 2023 Method: Phone call Type: Outbound Duration (min): 9 Outcome: Case discussion Contact Type: host coordinator Contact Name: Steve Nair Notes: TCM#3- see tcm note. Created By: Steve Nair Date: July 04, 2023 Method: Phone call Type: Outbound Duration (min): 8 Outcome: Case discussion Contact Type: host coordinator Contact Name: Steve Nair Notes: TCM#2- see tcm note. Created By: Steve Nair Date: June 26, 2023 Method: Phone call Type: Outbound Duration (min): 6 Outcome: Case discussion Contact Type: host coordinator Contact Name: Steve Nair Notes: TCM#1-see tcm note. Created By: Steve Nair Date: June 26, 2023 Method: Phone call Type: Outbound Duration (min): 1 Outcome: Left message-voicemail Contact Type: host coordinator Contact Name: Steve Nair Notes: TCM#1- LM on for return call. Created By: Steve Nair [facility] CBC with Auto Differentialon 07-18-2023 Basophils [...] HEALTH Immature granulocytes (Bld) [#/Vol] 0.04 10*3/uL [facility] Immature granulocytes/100 WBC (Bld) 0 % 0 [facility] Interpretation and review of laboratory results Abnormal [facility] Lymphocytes/100 WBC (Bld) 40 % 24 - 43 % [facility] Lymphocytes/100 WBC (Bld) 4.64 % High [facility] MCH (RBC) [Entitic mass] 28.8 pg 25.2 - 33.5 pg [facility] MCHC (RBC) [Mass/Vol] 31.9 g/dL 28.4 - 34.8 g/dL [facility] MCV (RBC) [Entitic vol] 90.3 fL 82.6 - 102.9 fL [facility] Monocytes/100 WBC (Bld) 8 % 3 - 12 % [facility] Monocytes/100 WBC (Bld) 0.88 % [facility] Neutrophils/100 WBC (Bld) 52 % 36 - 65 % [facility] Nucleated RBC/100 WBC (Bld) [Ratio] 0.0 % 0.0 per 100 WBC [facility] Platelet, Fluorescence 137 Low [facility] Platelets (Bld) [#/Vol] See Reflexed IPF Result [facility] Platelets reticulated/100 platelets Auto (Bld) 4.3 % 1.1 - 10.3 % [facility] RBC (Bld) [#/Vol] 3.71 10*6/uL Low 3.95 - 5.1 1 m/uL [facility] Segmented neutrophils/100 WBC (Bld) 5.99 % [facility] WBC other (Bld) [#/Vol] 11.6 High [facility] CBC with Diffon 07-18-2023 Platelet, Fluoresc. 137 k/uL Low 138-453 [facility] Comment on above: Performed By: #### C P, CDP #### [facility] [address] [place] [address] [place] [address] Rn Ostomy: Willy Henson MD PLT, Immature Fract. 4.3 % Normal 1.1-10.3 [facility] Comment on above: Performed By: #### C P, CDP #### [address] [place], [place] [address] Rn Ostomy: Willy Henson MD Abs. Basophil <0.03 Normal 0.00-0.20 [facility] Comment on above: Performed By: #### C P, CDP #### [address] [place] [address] Rn Ostomy: Willy Henson MD Abs.Imm.Granulocyte 0.04 k/uL Normal 0.00-0.30 [facility] Comment on above: Performed By: #### C P, CDP #### [address] [place], [facility]83 Rn Ostomy: Willy Henson MD Abs.Neutrophil (Seg) 5.99 k/uL Normal 1.50-8.10 [facility] Comment on above: Performed By: #### C P, CDP #### [address] [place], [place] [phone] Rn Ostomy: Willy Henson MD Basophils/100 WBC (Bld) 0 % Normal 0-2 [facility] Comment on above: Performed By: #### C P, CDP #### [address] [place], [place] [address] Rn Ostomy: Willy Henson MD Eosinophils (Bld) [#/Vol] 0.06 10*3/uL Normal 0.00-0.44 [facility] Comment on above: Performed By: #### C P, CDP #### [address] [place], [place] [address] Rn Ostomy: Willy Henson MD Eosinophils/100 WBC (Bld) 1 % Normal 1-4 [facility] Comment on above: Performed By: #### C P, CDP #### [address] [place] [address] Rn Ostomy: Willy Henson MD Erythrocyte distribution width (RBC) [Ratio] 12.5 % Normal 11.8-14.4 [facility] Comment on above: Performed By: #### C P, CDP #### [address] [place], [place] [address] Rn Ostomy: Willy Henson MD Hematocrit (Bld) [Volume fraction] 33.5 % Low 36.3-47.1 [facility] Comment on above: Performed By: #### C P, CDP #### [address] [place], [facility]83 Rn Ostomy: Willy Henson MD Hemoglobin (Bld) [Mass/Vol] 10.7 g/dL Low 11.9-15.1 [facility] Comment on above: Performed By: #### C P, CDP #### [address] [place] [phone] Rn Ostomy: Willy Henson MD Immature granulocytes/100 WBC (Bld) 0 % Normal 0 [facility] Comment on above: Performed By: #### C P, CDP #### [facility] [address] [place] [address] Rn Ostomy: Willy Henson MD Lymphocytes (Bld) [#/Vol] 4.64 10*3/uL High 1.10-3.70 [facility] Comment on above: Performed By: #### C P, CDP #### [address] [place], [facility]83 Rn Ostomy: Willy Henson MD Lymphocytes/100 WBC (Bld) 40 % Normal 24-43 [facility] Comment on above: Performed By: #### C P, CDP #### [address] [place], [facility]83 Rn Ostomy: Willy Henson MD MCH (RBC) [Entitic mass] 28.8 pg Normal 25.2-33.5 [facility] Comment on above: Performed By: #### C P, CDP #### [address] [place], [facility]83 Rn Ostomy: Willy Henson MD MCHC (RBC) [Mass/Vol] 31.9 g/dL Normal 28.4-34.8 [facility] Comment on above: Performed By: #### C P, CDP #### [address] [place], [facility]83 Rn Ostomy: Willy Henson MD MCV (RBC) [Entitic vol] 90.3 fL Normal 82.6-102.9 [facility] Comment on above: Performed By: #### C P, CDP #### [address] [place], [facility]83 Rn Ostomy: Willy Henson MD Monocytes (Bld) [#/Vol] 0.88 10*3/uL Normal 0.10-1.20 [facility] Comment on above: Performed By: #### C P, CDP #### [address] [place], [place] [phone] Rn Ostomy: Willy Henson MD Monocytes/100 WBC (Bld) 8 % Normal 3-12 [facility] Comment on above: Performed By: #### C P, CDP #### [facility] [address] [place], [place] [phone] Rn Ostomy: Willy Henson MD Neutrophil (Seg) 52 % Normal 36-65 [facility] Comment on above: Performed By: #### C P, CDP #### [facility] [address] [place], [place] [phone] Rn Ostomy: Willy Henson MD NRBC Automated 0.0 per 100 WBC Normal 0.0 [facility] Comment on above: Performed By: #### C P, CDP #### [address] [place], [place] [id number] Rn Ostomy: Willy Henson MD Platelet Count See Reflexed IPF Result Normal 138-453 [facility] Comment on above: Performed By: #### C P, CDP #### [facility] [address] [place] [address] Dr. [place], [place] [phone] Rn Ostomy: Willy Henson MD RBC (Bld) [#/Vol] 3.71 10*6/uL Low 3.95-5.11 [facility] Comment on above: Performed By: #### C P, CDP #### [facility] [address] [place] [address] Dr. [place], [place] [phone] Rn Ostomy: Willy Henson MD WBC (Bld) [#/Vol] 11.6 10*3/uL High 3.5-11.3 [facility] Comment on above: Performed By: #### C P, CDP #### [facility] [address] [place] [address] Rn Ostomy: Willy Henson MD Comp Metabolic Profon 2023 Albumin [Mass/Vol] 3.5 g/dL Normal 3.5-5.2 [facility] Comment on above: Performed By: #### C P, CDP #### [facility] [address] [place], [place] [phone] Rn Ostomy: Willy Henson MD Albumin/Glob Ratio 1.8 Normal 1.0-2.5 [facility] Comment on above: Performed By: #### C P, CDP #### [facility] [address] [place], [place] [phone] Rn Ostomy: Willy Henson MD Alkaline Phos 85 U/L Normal 35-104 [facility] Comment on above: Performed By: #### C P, CDP #### [facility] [address] [place], [place] [phone] Rn Ostomy: Willy Henson MD ALT [Catalytic activity/Vol] 17 U/L Normal 5-33 [facility] Comment on above: Performed By: #### C P, CDP #### [facility] [address] [place] [address] [place] [address] Rn Ostomy: Willy Henson MD Anion gap [Moles/Vol] 6 mmol/L Low 9-17 [facility] Comment on above: Performed By: #### C P, CDP #### [address] [place] [address] Rn Ostomy: Willy Henson MD AST [Catalytic activity/Vol] 16 U/L Normal <32 [facility] Comment on above: Performed By: #### C P, CDP #### [facility] [address] [place], [place] [phone] Rn Ostomy: Willy Henson MD Bilirubin [Mass/Vol] 0.5 mg/dL Normal 0.3-1.2 [facility] Comment on above: Performed By: #### C P, CDP #### [facility] [address] [place] [address] Rn Ostomy: Willy Henson MD BUN/CRE Ratio 18 Normal 9-20 [facility] Comment on above: Performed By: #### C P, CDP #### [facility] [address] [place] [address] Rn Ostomy: Willy Henson MD Calcium [Mass/Vol] 8.6 mg/dL Normal 8.6-10.4 [facility] Comment on above: Performed By: #### C P, CDP #### [facility] [address] [place] [address] Rn Ostomy: Willy Henson MD Chloride [Moles/Vol] 108 mmol/L High 98-107 [facility] Comment on above: Performed By: #### C P, CDP #### [facility] [address] [place] [address] Rn Ostomy: Willy Henson MD CO2 [Moles/Vol] 24 mmol/L Normal 20-31 [facility] Comment on above: Performed By: #### C P, CDP #### [facility] [address] [place] [address] [place] [address] Rn Ostomy: Willy Henson MD Creatinine [Mass/Vol] 0.6 mg/dL Normal 0.5-0.9 [facility] Comment on above: Performed By: #### C P, CDP #### [facility] [address] [place] [address] Rn Ostomy: Willy Henson MD GFR/1.73 sq M.predicted among non-blacks MDRD (S/P/Bld) [Vol rate/Area] mL/min/{1.73_m2} Normal >60 [facility] Comment on above: Result Comment: These [...] Performed By: #### C P, CDP #### [facility] [address] [place], [place] [phone] Rn Ostomy: Willy Henson MD Glucose [Mass/Vol] 135 mg/dL High 70-99 [facility] Comment on above: Performed By: #### C P, CDP #### [facility] [address] [place], [place] 827[address]83 Rn Ostomy: Willy Henson MD Potassium [Moles/Vol] 4.4 mmol/L Normal 3.7-5.3 [facility] Comment on above: Performed By: #### C P, CDP #### [facility] [address] [place], [place] [address]83 Rn Ostomy: Willy Henson MD Protein [Mass/Vol] 5.4 g/dL Low 6.4-8.3 [facility] Comment on above: Performed By: #### C P, CDP #### [facility] [address] [place], [place] [phone] Rn Ostomy: Willy Henson MD Sodium [Moles/Vol] 138 mmol/L Normal 135-144 [facility] Comment on above: Performed By: #### C P, CDP #### [facility] [address] [place], [place] 2996283 Rn Ostomy: Willy Henson MD Urea nitrogen [Mass/Vol] 11 mg/dL Normal 8-23 [facility] Comment on above: Performed By: #### C P, CDP #### [facility] [address] [place], [place] [phone] Rn Ostomy: Willy Henson MD Comprehensive Metabolic Pane [facility] 07-18-2023 Albumin [Mass/Vol] 3.5 g/dL 3.5 - 5.2 g/dL [facility] Albumin/Globulin [Mass ratio] 1.8 {ratio} 1.0 - 2.5 [facility] ALP [Catalytic activity/Vol] 85 U/L 35 - 104 U/L [facility] ALT [Catalytic activity/Vol] 17 U/L 5 - 33 U/L [facility] Anion gap [Moles/Vol] 6 mmol/L Low 9 - 17 mmol/L [facility] AST [Catalytic activity/Vol] 16 U/L NINF - 32 U/L [facility] Bilirubin [Mass/Vol] 0.5 mg/dL 0.3 - 1.2 mg/dL [facility] Calcium [Mass/Vol] 8.6 mg/dL 8.6 - 10. 4 mg/dL [facility] Chloride [Moles/Vol] 108 mmol/L High 98 - 107 mmol/L [facility] CO2 [Moles/Vol] 24 mmol/L 20 - 31 mmol/L [facility] Creatinine [Mass/Vol] 0.6 mg/dL 0.5 - 0.9 mg/dL [facility] Est, Glom Filt Rate - PINF [facility] Comment on above: These results are not [...] 135 mg/dL High 70 - 99 mg/dL [facility] Interpretation and review of laboratory results Abnormal [facility] Potassium [Moles/Vol] 4.4 mmol/L 3.7 - 5.3 mmol/L [facility] Protein [Mass/Vol] 5.4 g/dL Low 6.4 - 8.3 g/dL [facility] Sodium [Moles/Vol] 138 mmol/L 135 - 144 mmol/L [facility] Urea nitrogen [Mass/Vol] 11 mg/dL 8 - 23 mg/dL [facility] Urea nitrogen/Creatinine [Mass ratio] 18 mg/mg 9 - [facility] Surgical Pathology Reporton 07-17-2023 Surgical Pathology Report (NOTE) Path Number: [id number] -- Diagnosis -- UMBILICAL TISSUE/HERNIA, REPAIR:-FIBROMEMBRANE OUS 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 Yamilka Avendaño Electronically Signed Out ag/07/19/2023 Clinical Information Pre-Op Diagnosis: WOUND DEHISCENCE Operative Findings: UMBILICAL TISSUE Operation Performed: HERNIA UMBILICAL REPAIR REVISION UMBILICAL INCISION, KRISHNAMURTHY HERNIA REPAIR WITH TRANSVERSE COLON ANASTOMOSIS Source of Specimen A: UMBILICAL TISSUE Gross Description MICHEAL BRICE UMBILICAL TISSUE Received in formalin are multiple yellow, lobulated to castillo-pink, fibromembranous tissue fragments aggregating 3.6 x 3.5 x 2.5 cm. No lesions are identified. Chain Maker Hand sections 1c. tm Nimco Villalobos/mj:07/18/2023 Microscopic Description Microscopic examination performed. Processing Lab: [address] [phone] Interpretation Performed at [address] [phone] SURGICAL PATHOLOGY CONSULTATION Patient Name: MICHEAL BRICE [facility] Rec: [id number] [facility] ANATOMIC PATHOLOGY [address] [place] [phone] [facility] 07-11-19 [facility] Case Information Case Priority: None Programs: -- Referral Source: Vocational Counselor Referral Reason: Care coordination Case Type: Transition [...] Patient notes she has an appointment in [place] today at 1500 with , Dr. Olea. Patient states last appointment went [...] (min): 9 Outcome: Case discussion Contact Type: host coordinator Contact Name: Steve Nair Notes: TCM#3- see tcm note. Created By: Steve Nair Date: July 04, 2023 Method: Phone call Type: Outbound Duration (min): 8 Outcome: Case discussion Contact Type: host coordinator Contact Name: Steve Nair Notes: TCM#2- see tcm note. Created By: Steve Nair Date: June 26, 2023 Method: Phone call Type: Outbound Duration (min): 6 Outcome: Case discussion Contact Type: host coordinator Contact Name: Steve Nair Notes: TCM#1-see tcm note. Created By: Steve Nair Date: June 26, 2023 Method: Phone call Type: Outbound Duration (min): 1 Outcome: Left message-voicemail Contact Type: host coordinator Contact Name: Steve Nair Notes: TCM#1- LM on for return call. Created By: Steve Nair [facility] 07-04-19 [facility] Case Information Case Priority: None Programs: -- Referral Source: Vocational Counselor Referral Reason: Care coordination Case Type: Transition [...] with Dr. Olea, general surgeon, today in [place]. She reports her belly button is red [...] (min): 8 Outcome: Case discussion Contact Type: host coordinator Contact Name: Steve Nair Notes: TCM#2- see tcm note. Created By: Steve Nair Date: June 26, 2023 Method: Phone call Type: Outbound Duration (min): 6 Outcome: Case discussion Contact Type: host coordinator Contact Name: Steve Nair Notes: TCM#1-see tcm note. Created By: Steve Nair Date: June 26, 2023 Method: Phone call Type: Outbound Duration (min): 1 Outcome: Left message-voicemail Contact Type: host coordinator Contact Name: Steve Nair Notes: TCM#1- LM on for return call. Created By: Steve Nair [facility] RAD - Ultrasound Reporton RAD - Ultrasound Report [id number] .00TIFF [facility] Ambulatory Visit Summaryon 0 06-27-2023 Ambulatory [...] Follow-Up Appointments Sunday 1:00 PM EST Where: [facility] Family Medicine Chan Normal [facility] Family Medicine Office/Clini c Noteon 06-27-2023 Family Medicine Office/Clinic Note HPI Staff Micheal is a 83 year old female presenting for TCM follow up TCM:(records requested 06/25/23) [facility] Admission date: 06/20/23 Discharge date: [...] parts of digestive tract) pt went to [place] [facility] and had gall bladder removed. dressing [...] TID, 30 gram, Refill(s) 0, [id number], 158, cm, 06/27/23 11:03:00 EDT, Height/Length Dosing, 88, kg, 06/27/23 11:03:00 EDT, Weight Dosing [facility] 7 day disch [id number] 5. BMI 35.0-35.9,adult (Z68.35: Body mass index [BMI] 35.0-35.9, adult) BMI education complete Ordered: triamcinolone topical, 1 ashwini, Topical, TID, 30 gram, Refill(s) 0, [facility] #[id number], 158, cm, 06/27/23 11:03:00 EDT, Height/Length Dosing, 88, kg, 06/27/23 11:03:00 EDT, Weight Dosing [facility] 7 day disch [id number] Follow-up No qualifying data available Problem List/Past [...] 08/07/2013 Recorded tetanus-diphtheria toxoids 03/19/2004 Recorded Normal [facility] Comment on above: Result Comment: Elec tronically Signed By: Camila Max\.br\Date and Time Signed: 06/27/23 13:15 EDT Physician Orderon 06-27-2023 Physician Order [id number] .00TIFF Normal [facility] Population Healthon 06-26-19 Population Health Case Information Case Priority: None Programs: -- Referral Source: Vocational Counselor Referral Reason: Care coordination Case Type: Transition [...] Care Plan Progress Note Admit Date: 06/20/23 [facility] Date of Discharge: 06/22/23 Follow-up appointment scheduled? [...] (min): 6 Outcome: Case discussion Contact Type: host coordinator Contact Name: Steve Nair Notes: TCM#1-see tcm note. Created By: Steve Nair Date: June 26, 2023 Method: Phone call Type: Outbound Duration (min): 1 Outcome: Left message-voicemail Contact Type: host coordinator Contact Name: Steve Nair Notes: TCM#1- LM on for return call. Created By: Steve Nair [facility] Auth for Release of Medical Recordson 06-25-2023 Auth for Release of Medical Records [id number] .00TIFF [facility] Basic Metabolic Profon 06-21 Anion gap [Moles/Vol] 8 mmol/L Low 9-17 [facility] Comment on above: Performed By: #### C DP, BMP ####[facility] [id number] [facility], [place] [phone] Director: Willy Henson MD BUN/CRE Ratio 27 High 9-20 [facility] Comment on above: Performed By: #### C DP, BMP ####[facility] Fnf3097 [facility], [place] [phone] Director: Willy Henson MD Calcium [Mass/Vol] 9.0 mg/dL Normal 8.6-10.4 [facility] Comment on above: Performed By: #### C DP, BMP ####[facility] Zbt7878 [facility] [place] [address] Lab Director: Willy Henson MD Chloride [Moles/Vol] 108 mmol/L High 98-107 [facility] Comment on above: Performed By: #### C DP, BMP ####[facility] Uyh[address] [place] [address] Lab Director: Willy Henson MD CO2 [Moles/Vol] 26 mmol/L Normal 20-31 [facility] Comment on above: Performed By: #### C DP, BMP ####[facility] Ira[address] [place] [address] Lab Director: Willy Henson MD Creatinine [Mass/Vol] 0.7 mg/dL Normal 0.5-0.9 [facility] Comment on above: Performed By: #### C DP, BMP ####[facility] Mau[address] [place] [phone] Director: Willy Henson MD GFR/1.73 sq M.predicted among non-blacks MDRD (S/P/Bld) [Vol rate/Area] 87 mL/min/{1.73_m2} Normal >60 [facility] Comment on above: Result Comment: These [...] secretion. Performed By: #### C DP, BMP ####[facility] Unx3[address] [place], [place] [id number])[phone] Director: Willy Henson MD Glucose [Mass/Vol] 101 mg/dL High 70-99 [facility] Comment on above: Performed By: #### C DP, BMP ####[facility] Bak[address] [place] [address] Lab Director: Willy Henson MD Potassium [Moles/Vol] 4.1 mmol/L Normal 3.7-5.3 [facility] Comment on above: Performed By: #### C DP, BMP ####[facility] Jgm7716 [facility] [place] [address] Lab Director: Willy Henson MD Sodium [Moles/Vol] 142 mmol/L Normal 135-144 [facility] Comment on above: Performed By: #### C DP, BMP ####[facility] Kua[address] [place] [address] Lab Director: Willy Henson MD Urea nitrogen [Mass/Vol] 19 mg/dL Normal 8-23 [facility] Comment on above: Performed By: #### C DP, BMP ####[facility] [id number] [facility], [place] [address] Lab Director: Willy Henson MD CBC with Diffon 06-22-2023 Abs. Basophil 0.00 k/uL Normal 0.00-0.20 [facility] Comment on above: Performed By: #### C DP, BMP ####[facility] Tco0572 [facility], [place] [address])[phone] Director: Willy Henson MD Abs.Imm.Granulocyte 0.00 k/uL Normal 0.00-0.30 [facility] Comment on above: Performed By: #### C DP, BMP ####[facility] Nca4742 [facility], [place] [address])[phone] Director: iWlly Henson MD Abs.Neutrophil (Seg) 6.72 k/uL Normal 2.5-7.0 [facility] Comment on above: Performed By: #### C DP, BMP ####[facility] Dgc8180 [facility], [place] [address])[phone] Director: Willy Henson MD Basophils/100 WBC (Bld) 0 % Normal 0-2 [facility] Comment on above: Performed By: #### C DP, BMP ####[facility] Llg1489 [facility], [place] [address])[phone] Director: Willy Henson MD Eosinophils (Bld) [#/Vol] 0.14 10*3/uL Normal 0.00-0.40 [facility] Comment on above: Performed By: #### C DP, BMP ####[facility] Rrx5256 [facility], [place] [address])[phone] Director: Willy Henson MD Eosinophils/100 WBC (Bld) 1 % Normal 0-5 [facility] Comment on above: Performed By: #### C DP, BMP ####[facility] Nne4027 [place] [address] Lab Director: Willy Henson MD Immature granulocytes/100 WBC (Bld) 0 % Normal 0-5 [facility] Comment on above: Performed By: #### C DP, BMP ####[facility] Udh0493 [facility] [place] [address] Lab Director: Willy Henson MD Lymphocytes (Bld) [#/Vol] 6.16 10*3/uL High 1.00-4.80 [facility] Comment on above: Performed By: #### C DP, BMP ####[facility] Hcc3769 [facility] [place] [address] Lab Director: Willy Henson MD Lymphocytes/100 WBC (Bld) 44 % High 15-40 [facility] Comment on above: Performed By: #### C DP, BMP ####[facility] Xiv9134 [facility] [place] [address] Lab Director: Willy Henson MD Monocytes (Bld) [#/Vol] 0.98 10*3/uL Normal 0.00-1.00 [facility] Comment on above: Performed By: #### C DP, BMP ####[facility] Hgt2705 [facility] [place] [address] Lab Director: Willy Henson MD Monocytes/100 WBC (Bld) 7 % Normal 4-8 [facility] Comment on above: Performed By: #### C DP, BMP ####[facility] Cqk7066 [place] [address] Lab Director: Willy Henson MD Morphology Ki (Bld) [Interp] Scanned to verify automated differential. Normal [facility] Comment on above: Performed By: #### C DP, BMP ####[facility] Atu3727 [facility] [place] [address] Lab Director: Willy Henson MD Neutrophil (Seg) 48 % Normal 47-75 [facility] Comment on above: Performed By: #### C DP, BMP ####[facility] [id number] [facility] [place] [address] Lab Director: Willy Henson MD Erythrocyte distribution width (RBC) [Ratio] 13.0 % Normal 12.1-15.2 [facility] Comment on above: Performed By: #### C DP, BMP ####[facility] [id number] [place] [address] Lab Director: Willy Henson MD Hematocrit (Bld) [Volume fraction] 31.3 % Low 36.0-46.0 [facility] Comment on above: Performed By: #### C DP, BMP ####[facility] [id number] [facility] [place] [address] Lab Director: Willy Henson MD Hemoglobin (Bld) [Mass/Vol] 10.2 g/dL Low 12.0-16.0 [facility] Comment on above: Performed By: #### C DP, BMP ####[facility] [id number] [place] [address] Lab Director: Willy Henson MD MCH (RBC) [Entitic mass] 29.5 pg Normal 26.0-34.0 [facility] Comment on above: Performed By: #### C DP, BMP ####[facility] [id number] [facility], [place] [id number] Lab Director: Willy Henson MD MCHC (RBC) [Mass/Vol] 32.6 g/dL Normal 31.0-37.0 [facility] Comment on above: Performed By: #### C DP, BMP ####[facility] [id number] [place] [address] Lab Director: Willy Henson MD MCV (RBC) [Entitic vol] 90.5 fL Normal 80.0-100.0 [facility] Comment on above: Performed By: #### C DP, BMP ####[facility] [id number] [place] [address] Lab Director: Willy Henson MD Platelet mean volume (Bld) [Entitic vol] 11.1 fL Normal 6.0-12.0 [facility] Comment on above: Performed By: #### C DP, BMP ####[facility] [id number] [place] [address] Lab Director: Willy Henson MD Platelets (Bld) [#/Vol] 139 10*3/uL Low 140-450 [facility] Comment on above: Performed By: #### C DP, BMP ####[facility] [id number] [address] [place] [address] Lab Director: Willy Henson MD RBC (Bld) [#/Vol] 3.46 10*6/uL Low 4.00-5.20 [facility] Comment on above: Performed By: #### C DP, BMP ####[facility] [id number] [address] [place] [id number] Lab Director: Willy Henson MD WBC (Bld) [#/Vol] 14.0 10*3/uL High 3.5-11.0 [facility] Comment on above: Performed By: #### C DP, BMP ####[facility] [id number] [place] [address] Lab Director: Willy Henson MD Basic Metab w/rfx MGon 06-20 Anion gap [Moles/Vol] 8 mmol/L Low 9-17 [facility] Comment on above: Performed By: #### L IVP, BMPX, CDP #### [facility] [address] [place], [place] [id number] Rn Ostomy: Willy Henson MD BUN/CRE Ratio 27 High 9-20 [facility] Comment on above: Performed By: #### L IVP, BMPX, CDP #### [facility] [address] [place], [place] [id number] Rn Ostomy: Willy Henson MD Calcium [Mass/Vol] 9.0 mg/dL Normal 8.6-10.4 [facility] Comment on above: Performed By: #### L IVP, BMPX, CDP #### [facility] [address] [place] [address] Rn Ostomy: Willy Henson MD Chloride [Moles/Vol] 105 mmol/L Normal 98-107 [facility] Comment on above: Performed By: #### L IVP, BMPX, CDP #### [facility] [address] [place] [address] Rn Ostomy: Willy Henson MD CO2 [Moles/Vol] 24 mmol/L Normal 20-31 [facility] Comment on above: Performed By: #### L IVP, BMPX, CDP #### [facility] [address] [place] [address] Rn Ostomy: Willy Henson MD Creatinine [Mass/Vol] 0.6 mg/dL Normal 0.5-0.9 [facility] Comment on above: Performed By: #### L IVP, BMPX, CDP #### [facility] [address] [place] [address] Rn Ostomy: Willy Henson MD GFR/1.73 sq M.predicted among non-blacks MDRD (S/P/Bld) [Vol rate/Area] mL/min/{1.73_m2} Normal >60 [facility] Comment on above: Result Comment: These [...] By: #### L IVP, BMPX, CDP #### [facility] [address] [place] [address] Rn Ostomy: Willy Henson MD Glucose [Mass/Vol] 152 mg/dL High 70-99 [facility] Comment on above: Performed By: #### L IVP, BMPX, CDP #### [facility] [address] [place] [address] Rn Ostomy: Willy Henson MD Potassium [Moles/Vol] 4.2 mmol/L Normal 3.7-5.3 [facility] Comment on above: Performed By: #### L IVP, BMPX, CDP #### [facility] [address] [place] [address] Rn Ostomy: Willy Henson MD Sodium [Moles/Vol] 137 mmol/L Normal 135-144 [facility] Comment on above: Performed By: #### L IVP, BMPX, CDP #### [facility] [address] [place] [address] Rn Ostomy: Willy Henson MD Urea nitrogen [Mass/Vol] 16 mg/dL Normal 8-23 [facility] Comment on above: Performed By: #### L IVP, BMPX, CDP #### [facility] [address] [place] [address] Rn Ostomy: Willy Henson MD CBC with Diffon 06-21-2023 Abs. Basophil Normal 0.0-0.2 [facility] Comment on above: Performed By: #### L IVP, BMPX, CDP #### [facility] [address] [place], [place] [id number] Rn Ostomy: Willy Henson MD Abs. Eosinophil Normal 0.0-0.4 [facility] Comment on above: Performed By: #### L IVP, BMPX, CDP #### [facility] [address] [place], [place] [id number] Rn Ostomy: Willy Henson MD Abs.Imm.Granulocyte Normal 0.00-0.30 [facility] Comment on above: Performed By: #### L IVP, BMPX, CDP #### [facility] [address] [place], [place] [id number] Rn Ostomy: Willy Henson MD Abs.Neutrophil (Seg) 14.01 k/uL High 2.5-7.0 [facility] Comment on above: Performed By: #### L IVP, BMPX, CDP #### [facility] [address] [place], [place] [id number] Rn Ostomy: Willy Henson MD Basophil Normal 0-2 [facility] Comment on above: Performed By: #### L IVP, BMPX, CDP #### [facility] [address] [place], [place] [id number] Rn Ostomy: Willy Henson MD Eosinophil Normal 0-5 [facility] Comment on above: Performed By: #### L IVP, BMPX, CDP #### [facility] [address] [place], [place] [id number] Rn Ostomy: Willy Henson MD Immature Granulocyte Normal 0 [facility] Comment on above: Performed By: #### L IVP, BMPX, CDP #### [facility] [address] [place], [place] [id number] Rn Ostomy: Willy Henson MD Lymphocytes (Bld) [#/Vol] 5.48 10*3/uL High 1.0-4.8 [facility] Comment on above: Performed By: #### L IVP, BMPX, CDP #### [facility] [address] [place] [address] Rn Ostomy: Willy Henson MD Lymphocytes/100 WBC (Bld) 27 % Normal 15-40 [facility] Comment on above: Performed By: #### L IVP, BMPX, CDP #### [facility] [address] [place] [address] Rn Ostomy: Willy Henson MD Monocytes (Bld) [#/Vol] 0.81 10*3/uL Normal 0.0-1.0 [facility] Comment on above: Performed By: #### L IVP, BMPX, CDP #### [facility] [address] [place] [address] Rn Ostomy: Willy Henson MD Monocytes/100 WBC (Bld) 4 % Normal 4-8 [facility] Comment on above: Performed By: #### L IVP, BMPX, CDP #### [facility] [address] [place] [address] Rn Ostomy: Willy Henson MD Morphology Ki (Bld) [Interp] Manual Differential Performed Normal [facility] Comment on above: Performed By: #### L IVP, BMPX, CDP #### [facility] [address] [place] [address] Rn Ostomy: Willy Henson MD Neutrophil (Seg) 69 % Normal 47-75 [facility] Comment on above: Performed By: #### L IVP, BMPX, CDP #### [facility] [address] [place] [address] Rn Ostomy: Willy Henson MD Erythrocyte distribution width (RBC) [Ratio] 12.7 % Normal 12.1-15.2 [facility] Comment on above: Performed By: #### L IVP, BMPX, CDP #### [facility] [address] [place] [address] Rn Ostomy: Willy Henson MD Hematocrit (Bld) [Volume fraction] 34.7 % Low 36.0-46.0 [facility] Comment on above: Performed By: #### L IVP, BMPX, CDP #### [facility] [address] [place] [address] Rn Ostomy: Willy Henson MD Hemoglobin (Bld) [Mass/Vol] 11.4 g/dL Low 12.0-16.0 [facility] Comment on above: Performed By: #### L IVP, BMPX, CDP #### [facility] [address] [place] [address] Rn Ostomy: Willy Henson MD MCH (RBC) [Entitic mass] 29.5 pg Normal 26.0-34.0 [facility] Comment on above: Performed By: #### L IVP, BMPX, CDP #### [facility] [address] [place] [address] Rn Ostomy: Willy Henson MD MCHC (RBC) [Mass/Vol] 32.9 g/dL Normal 31.0-37.0 [facility] Comment on above: Performed By: #### L IVP, BMPX, CDP #### [facility] [address] [place] [id number] Rn Ostomy: Willy Henson MD MCV (RBC) [Entitic vol] 89.7 fL Normal 80.0-100.0 [facility] Comment on above: Performed By: #### L IVP, BMPX, CDP #### [facility] [address] [place] [address] Rn Ostomy: Willy Henson MD Platelet mean volume (Bld) [Entitic vol] 11.2 fL Normal 6.0-12.0 [facility] Comment on above: Performed By: #### L IVP, BMPX, CDP #### [facility] [address] [place], [place] [id number] Rn Ostomy: Willy Henson MD Platelets (Bld) [#/Vol] 146 10*3/uL Normal 140-450 [facility] Comment on above: Performed By: #### L IVP, BMPX, CDP #### [facility] [address] [place], [place] [id number] Rn Ostomy: Willy Henson MD RBC (Bld) [#/Vol] 3.87 10*6/uL Low 4.00-5.20 [facility] Comment on above: Performed By: #### L IVP, BMPX, CDP #### [facility] [address] [place], [place] [id number] Rn Ostomy: Willy Henson MD WBC (Bld) [#/Vol] 20.3 10*3/uL Critically high 3.5-11.0 [facility] Comment on above: Performed By: #### L IVP, BMPX, CDP #### [facility] [address] [place] [address] Rn Ostomy: Willy Henson MD Liver Profileon 06-21-2023 Albumin [Mass/Vol] 3.6 g/dL Normal 3.5-5.2 [facility] Comment on above: Performed By: #### L IVP, BMPX, CDP #### [facility] [address] [place] [address] Rn Ostomy: Willy Henson MD Alkaline Phos 91 U/L Normal 35-104 [facility] Comment on above: Performed By: #### L IVP, BMPX, CDP #### [facility] [address] [place] [address] Rn Ostomy: Willy Henson MD ALT [Catalytic activity/Vol] 55 U/L High 5-33 [facility] Comment on above: Performed By: #### L IVP, BMPX, CDP #### [facility] [address] [place], [place] [id number] Rn Ostomy: Willy Henson MD AST [Catalytic activity/Vol] 53 U/L High <32 [facility] Comment on above: Performed By: #### L IVP, BMPX, CDP #### [facility] [address] [place], [place] [id number] Rn Ostomy: Willy Henson MD Bilirubin [Mass/Vol] 0.7 mg/dL Normal 0.3-1.2 [facility] Comment on above: Performed By: #### L IVP, BMPX, CDP #### [facility] [address] [place], [place] [id number] Rn Ostomy: Willy Henson MD Bilirubin, Indirect Can not be calculated Normal 0.0-1 .0 [facility] Comment on above: Performed By: #### L IVP, BMPX, CDP #### [facility] [address] [place], [place] 0349390 Rn Ostomy: Willy Henson MD Bilirubin.indirect [Mass/Vol] mg/dL Normal <0.3 [facility] Comment on above: Performed By: #### L IVP, BMPX, CDP #### [facility] [address] [place], [place] [id number] Rn Ostomy: Willy Henson MD Protein [Mass/Vol] 5.9 g/dL Low 6.4-8.3 [facility] Comment on above: Performed By: #### L IVP, BMPX, CDP #### [facility] [address] [place], [place] [id number] Rn Ostomy: Willy Henson MD APTTon 06-20-2023 aPTT Coag (Bld) [Time] 25.8 s Normal 23.9-33.8 [facility] Comment on above: Result Comment: IV Heparin Therapy Range: 62.0-94.0 Performed By: #### P TT, PT ####[facility] [id number] [place] [id number] Lab Director: Willy Henson MD CBC with Diffon 06-20-2023 Abs. Basophil Normal 0.0-0.2 [facility] Comment on above: Performed By: #### L DIDI BONILLA, CP #### [facility] [address] [place] [address] Rn Ostomy: Willy Henson MD Abs. Eosinophil Normal 0.0-0.4 [facility] Comment on above: Performed By: #### L DIDI BONILLA, CP #### [facility] [address] [place] [address] Rn Ostomy: Willy Henson MD Abs.Imm.Granulocyte Normal 0.00-0.30 [facility] Comment on above: Performed By: #### L DIDI BONILLA, CP #### [facility] [address] [place] [address] Rn Ostomy: Willy Henson MD Abs.Neutrophil (Seg) 12.04 k/uL High 2.5-7.0 [facility] Comment on above: Performed By: #### L DIDI BONILLA, CP #### [facility] [address] [place] [address] Rn Ostomy: Willy Henson MD Basophil Normal 0-2 [facility] Comment on above: Performed By: #### L DIDI BONILLA, CP #### [facility] [address] [place] [address] Rn Ostomy: Willy Henson MD Eosinophil Normal 0-5 [facility] Comment on above: Performed By: #### L DIDI BONILLA, CP #### [facility] [address] [place], [place] [id number] Rn Ostomy: Willy Henson MD Immature Granulocyte Normal 0 [facility] Comment on above: Performed By: #### L DIDI BONILLA, CP #### [facility] [address] [place], [place] 6288304 (709) Rn Ostomy: Willy Henson MD Lymphocytes (Bld) [#/Vol] 5.13 10*3/uL High 1.0-4.8 [facility] Comment on above: Performed By: #### L DIDI BONILLA, CP #### [facility] [address] [place], [place] [id number] Rn Ostomy: Willy Henson MD Lymphocytes/100 WBC (Bld) 29 % Normal 15-40 [facility] Comment on above: Performed By: #### L DIDI BONILLA, CP #### [facility] [address] [place], [place] [phone] Rn Ostomy: Willy Henson MD Monocytes (Bld) [#/Vol] 0.53 10*3/uL Normal 0.0-1.0 [facility] Comment on above: Performed By: #### L DIDI BONILLA, CP #### [facility] [address] [place], [place] [id number] Rn Ostomy: Willy Henson MD Monocytes/100 WBC (Bld) 3 % Low 4-8 [facility] Comment on above: Performed By: #### L DIDI BONILLA, CP #### [facility] [address] [place], [place] [phone] Rn Ostomy: Willy Henson MD Morphology Ki (Bld) [Interp] Manual Differential Performed Normal [facility] Comment on above: Performed By: #### L DIDI BONILLA, CP #### [facility] [address] [place], [place] [id number] Rn Ostomy: Willy Henson MD Neutrophil (Seg) 68 % Normal 47-75 [facility] Comment on above: Performed By: #### L DIDI BONILLA, CP #### [facility] [address] [place] [address] Rn Ostomy: Willy Henson MD Erythrocyte distribution width (RBC) [Ratio] 12.5 % Normal 12.1-15.2 [facility] Comment on above: Performed By: #### L DIDI BONILLA, CP #### [facility] [address] [place] [address] Rn Ostomy: Willy Henson MD Hematocrit (Bld) [Volume fraction] 37.1 % Normal 36.0-46.0 [facility] Comment on above: Performed By: #### L DIDI BONILLA, CP #### [facility] [address] [place] [address] Rn Ostomy: Willy Henson MD Hemoglobin (Bld) [Mass/Vol] 12.2 g/dL Normal 12.0-16.0 [facility] Comment on above: Performed By: #### L DIDI BONILLA, CP #### [facility] [address] [place] [address] Rn Ostomy: Willy Henson MD MCH (RBC) [Entitic mass] 29.5 pg Normal 26.0-34.0 [facility] Comment on above: Performed By: #### L DIDI BONILLA, CP #### [facility] [address] [place] [address] Rn Ostomy: Willy Henson MD MCHC (RBC) [Mass/Vol] 32.9 g/dL Normal 31.0-37.0 [facility] Comment on above: Performed By: #### L DIDI BONILLA, CP #### [facility] [address] [place] [address] Rn Ostomy: Willy Henson MD MCV (RBC) [Entitic vol] 89.6 fL Normal 80.0-100.0 [facility] Comment on above: Performed By: #### L DIDI BONILLA, CP #### [facility] [address] [place] [address] Rn Ostomy: Willy Henson MD Platelet mean volume (Bld) [Entitic vol] 10.9 fL Normal 6.0-12.0 [facility] Comment on above: Performed By: #### L DIDI BONILLA, CP #### [facility] [address] [place] [address] Rn Ostomy: Willy Henson MD Platelets (Bld) [#/Vol] 147 10*3/uL Normal 140-450 [facility] Comment on above: Performed By: #### L DIDI BONILLA, CP #### [facility] [address] [place] [address] Rn Ostomy: Willy Henson MD RBC (Bld) [#/Vol] 4.14 10*6/uL Normal 4.00-5.20 [facility] Comment on above: Performed By: #### L DIDI BONILLA, CP #### [facility] [address] [place] [address] Rn Ostomy: Willy Henson MD WBC (Bld) [#/Vol] 17.7 10*3/uL High 3.5-11.0 [facility] Comment on above: Performed By: #### L DIDI BONILLA, CP #### [facility] [address] [place] [address] (251) Rn Ostomy: Willy Henson MD Abs. Atypical Lymphs 0.29 k/uL Normal 0.0-1.0 [facility] Comment on above: Performed By: #### C ABEL SOTO, TROPI ####[facility] [id number] [place] [address] Lab Director: Willy Henson MD Abs. Basophil Normal 0.0-0.2 [facility] Comment on above: Performed By: #### C DP, CP, TROPI ####[facility] [id number] [facility] [place] [address] Lab Director: Willy Henson MD Abs.Imm.Granulocyte Normal 0.00-0.30 [facility] Comment on above: Performed By: #### C DP, CP, TROPI ####[facility] [id number] [facility], [place] [address] Lab Director: Willy Henson MD Abs.Neutrophil (Seg) 6.15 k/uL Normal 2.5-7.0 [facility] Comment on above: Performed By: #### C DP, CP, TROPI ####[facility] [id number] [place], [place] [address])[phone] Director: Willy Henson MD Atypical Lymphs 2 % Normal [facility] Comment on above: Performed By: #### C DP, CP, TROPI ####[facility] [id number] [facility], [place] [address] Lab Director: Willy Henson MD Basophil Normal 0-2 [facility] Comment on above: Performed By: #### C DP, CP, TROPI ####[facility] [id number] [facility], [place] [address] Lab Director: Willy Henson MD Eosinophils (Bld) [#/Vol] 0.29 10*3/uL Normal 0.0-0.4 [facility] Comment on above: Performed By: #### C DP, CP, TROPI ####[facility] [id number] [place] [id number] Lab Director: Willy Henson MD Eosinophils/100 WBC (Bld) 2 % Normal 0-5 [facility] Comment on above: Performed By: #### C DP, CP, TROPI ####[facility] [id number] [place] [address] Lab Director: Willy Henson MD Immature Granulocyte Normal 0 [facility] Comment on above: Performed By: #### C DP, CP, TROPI ####[facility] [id number] [facility] [place] [address] Lab Director: Willy Henson MD Lymphocytes (Bld) [#/Vol] 6.43 10*3/uL High 1.0-4.8 [facility] Comment on above: Performed By: #### C DP, CP, TROPI ####[facility] [id number] [facility] [place] [address] Lab Director: Willy Henson MD Lymphocytes/100 WBC (Bld) 45 % High 15-40 [facility] Comment on above: Performed By: #### C DP, CP, TROPI ####[facility] [id number] [facility] [place] [address] Lab Director: Willy Henson MD Monocytes (Bld) [#/Vol] 1.14 10*3/uL High 0.0-1.0 [facility] Comment on above: Performed By: #### C DP, CP, TROPI ####[facility] [id number] [facility] [place] [address] Lab Director: Willy Henson MD Monocytes/100 WBC (Bld) 8 % Normal 4-8 [facility] Comment on above: Performed By: #### C DP, CP, TROPI ####[facility] [id number] [facility] [place] [address] Lab Director: Willy Henson MD Morphology Ki (Bld) [Interp] Manual Differential Performed Normal [facility] Comment on above: Performed By: #### C DP, CP, TROPI ####[facility] [id number] [facility] [place] [address] Lab Director: Willy Henson MD Neutrophil (Seg) 43 % Low 47-75 [facility] Comment on above: Performed By: #### C DP, CP, TROPI ####[facility] [id number] [place] [address] Lab Director: Willy Henson MD Erythrocyte distribution width (RBC) [Ratio] 12.7 % Normal 12.1-15.2 [facility] Comment on above: Performed By: #### C DP, CP, TROPI ####[facility] [id number] [place] [address] Lab Director: Willy Henson MD Hematocrit (Bld) [Volume fraction] 38.0 % Normal 36.0-46.0 [facility] Comment on above: Performed By: #### C DP, CP, TROPI ####[facility] [id number] [facility] [place] [address] Lab Director: Willy Henson MD Hemoglobin (Bld) [Mass/Vol] 12.5 g/dL Normal 12.0-16.0 [facility] Comment on above: Performed By: #### C DP, CP, TROPI ####[facility] [id number] [place] [address] Lab Director: Willy Henson MD MCH (RBC) [Entitic mass] 29.3 pg Normal 26.0-34.0 [facility] Comment on above: Performed By: #### C DP, CP, TROPI ####[facility] [id number] [facility] [place] [address] Lab Director: Willy Henson MD MCHC (RBC) [Mass/Vol] 32.9 g/dL Normal 31.0-37.0 [facility] Comment on above: Performed By: #### C DP, CP, TROPI ####[facility] [id number] [place], [place] [id number] Director: Willy Henson MD MCV (RBC) [Entitic vol] 89.2 fL Normal 80.0-100.0 [facility] Comment on above: Performed By: #### C DP CP, TROPI ####[facility] [id number] [address] [place], [place] [id number])[phone] Director: Willy Henson MD Platelet mean volume (Bld) [Entitic vol] 11.0 fL Normal 6.0-12.0 [facility] Comment on above: Performed By: #### C BRITTANY CP, TROPI ####[facility] [id number] [place], [place] [phone] Director: Willy Henson MD Platelets (Bld) [#/Vol] 159 10*3/uL Normal 140-450 [facility] Comment on above: Performed By: #### C BRITTANY CP, TROPI ####[facility] [id number] [place], [place] [phone] Director: Willy Henson MD RBC (Bld) [#/Vol] 4.26 10*6/uL Normal 4.00-5.20 [facility] Comment on above: Performed By: #### C BRITTANY CP, TROPI ####[facility] [id number] [place] [address] Lab Director: Willy Henson MD WBC (Bld) [#/Vol] 14.3 10*3/uL High 3.5-11.0 [facility] Comment on above: Performed By: #### C BRITTANY CP, TROPI ####[facility] [id number] [place], [place] [phone] Director: Willy Henson MD CT ABDOMEN PELVIS [...] Neptali Johnson MD 06/20/23 Final result Normal [facility] Comp Metabolic Profon 2023 Albumin [Mass/Vol] 4.3 g/dL Normal 3.5-5.2 [facility] Comment on above: Performed By: #### L DIDI BONILLA, CP #### [facility] [address] [place], [place] [phone] Rn Ostomy: Willy Henson MD Alkaline Phos 109 U/L High 35-104 [facility] Comment on above: Performed By: #### L DIDI BONILLA, CP #### [facility] [address] [place] [address] Rn Ostomy: Willy Henson MD ALT [Catalytic activity/Vol] 20 U/L Normal 5-33 [facility] Comment on above: Performed By: #### L DIDI BONILLA, CP #### [facility] [address] [place], [place] [phone] Rn Ostomy: Willy Henson MD Anion gap [Moles/Vol] 10 mmol/L Normal 9-17 [facility] Comment on above: Performed By: #### L DIDI BONILLA, CP #### [facility] [address] [place], [place] [phone] Rn Ostomy: Willy Henson MD AST [Catalytic activity/Vol] 20 U/L Normal <32 [facility] Comment on above: Performed By: #### L DIDI BONILLA, CP #### [facility] [address] [place], [place] [phone] Rn Ostomy: Willy Henson MD Bilirubin [Mass/Vol] 0.2 mg/dL Low 0.3-1.2 [facility] Comment on above: Performed By: #### L DIDI BONILLA, CP #### [facility] [address] [place], [place] [phone] Rn Ostomy: Willy Henson MD BUN/CRE Ratio 26 High 9-20 [facility] Comment on above: Performed By: #### L DIDI BONILLA, CP #### [facility] [address] [place], [place] [id number] Rn Ostomy: Willy Henson MD Calcium [Mass/Vol] 8.8 mg/dL Normal 8.6-10.4 [facility] Comment on above: Performed By: #### L DIDI BONILLA, CP #### [facility] [address] [place], [place] [phone] Rn Ostomy: Willy Henson MD Chloride [Moles/Vol] 99 mmol/L Normal 98-107 [facility] Comment on above: Performed By: #### L DIDI BONILLA, CP #### [facility] [address] [place], [place] [phone] Rn Ostomy: Willy Henson MD CO2 [Moles/Vol] 24 mmol/L Normal 20-31 [facility] Comment on above: Performed By: #### L DIDI BONILLA, CP #### [facility] [address] [place], [place] [phone] Rn Ostomy: Willy Henson MD Creatinine [Mass/Vol] 0.8 mg/dL Normal 0.5-0.9 [facility] Comment on above: Performed By: #### L DIDI BONILLA, CP #### [facility] [address] [place], [place] 1914190 Rn Ostomy: Willy Henson MD GFR/1.73 sq M.predicted among non-blacks MDRD (S/P/Bld) [Vol rate/Area] 74 mL/min/{1.73_m2} Normal >60 [facility] Comment on above: Result Comment: These [...] By: #### L DIDI BONILLA, CP #### [facility] [address] [place], [place] [phone] Rn Ostomy: Willy Henson MD Glucose [Mass/Vol] 155 mg/dL High 70-99 [facility] Comment on above: Performed By: #### L DIDI BONILLA, CP #### [facility] [address] [place], [place] [phone] Rn Ostomy: Willy Henson MD Potassium [Moles/Vol] 4.0 mmol/L Normal 3.7-5.3 [facility] Comment on above: Performed By: #### L DIDI BONILLA, CP #### [facility] [address] [place], [place] [address]1990 Rn Ostomy: Willy Henson MD Protein [Mass/Vol] 6.6 g/dL Normal 6.4-8.3 [facility] Comment on above: Performed By: #### L DIDI BONILLA, CP #### [facility] [address] [place], [place] [phone] Rn Ostomy: Willy Henson MD Sodium [Moles/Vol] 133 mmol/L Low 135-144 [facility] Comment on above: Performed By: #### L DIDI BONILLA, CP #### [facility] [address] [place] [address] Rn Ostomy: Willy Henson MD Urea nitrogen [Mass/Vol] 21 mg/dL Normal 8-23 [facility] Comment on above: Performed By: #### L DIDI BONILLA, CP #### [facility] [address] [place], [place] [phone] Rn Ostomy: Willy Henson MD Albumin [Mass/Vol] 4.3 g/dL Normal 3.5-5.2 [facility] Comment on above: Performed By: #### C ABEL SOTO, TROPI ####[facility] [id number] [place] [address] Lab Director: Willy Henson MD Alkaline Phos 115 U/L High 35-104 [facility] Comment on above: Performed By: #### C DP, CP, TROPI ####[facility] [id number] [place] [address] lab Director: Willy Henson MD ALT [Catalytic activity/Vol] 19 U/L Normal 5-33 [facility] Comment on above: Performed By: #### C DP, CP, TROPI ####[facility] [id number] [place] [address] lab Director: Willy Henson MD Anion gap [Moles/Vol] 11 mmol/L Normal 9-17 [facility] Comment on above: Performed By: #### C DP, CP, TROPI ####[facility] [id number] [facility] [place] [address] lab Director: Willy Henson MD AST [Catalytic activity/Vol] 19 U/L Normal <32 [facility] Comment on above: Performed By: #### C DP, CP, TROPI ####[facility] [address] [place] [place] [address] lab Director: Willy Henson MD Bilirubin [Mass/Vol] 0.3 mg/dL Normal 0.3-1.2 [facility] Comment on above: Performed By: #### C DP, CP, TROPI ####[facility] [id number] [facility] [place] [address] lab Director: Willy Henson MD BUN/CRE Ratio 23 High 9-20 [facility] Comment on above: Performed By: #### C DP, CP, TROPI ####[facility] [id number] [place] [address] Lab Director: Willy Henson MD Calcium [Mass/Vol] 9.8 mg/dL Normal 8.6-10.4 [facility] Comment on above: Performed By: #### C DP, CP, TROPI ####[facility] [id number] [place], [place] 0966290 Lab Director: Willy Henson MD Chloride [Moles/Vol] 101 mmol/L Normal 98-107 [facility] Comment on above: Performed By: #### C BRITTANY CP, TROPI ####[facility] [id number] [place], [place] [phone] Lab Director: Willy Henson MD CO2 [Moles/Vol] 26 mmol/L Normal 20-31 [facility] Comment on above: Performed By: #### C BRITTANY CP, TROPI ####[facility] [id number] [place], [place] [phone] lab Director: Willy Henson MD Creatinine [Mass/Vol] 1.2 mg/dL High 0.5-0.9 [facility] Comment on above: Performed By: #### C ABEL SOTO, TROPI ####[facility] [id number] [place], [place] [phone] lab Director: Willy Henson MD GFR/1.73 sq M.predicted among non-blacks MDRD (S/P/Bld) [Vol rate/Area] 45 mL/min/{1.73_m2} Low >60 [facility] Comment on above: Result Comment: These [...] renal tubular secretion. Performed By: #### C BRITTANY CP, TROPI ####[facility] [id number] [place], [place] [id number] Lab Director: Willy Henson MD Glucose [Mass/Vol] 130 mg/dL High 70-99 [facility] Comment on above: Performed By: #### C BRITTANY CP, TROPI ####[facility] [id number] [facility] [place] [address] Lab Director: Willy Henson MD Potassium [Moles/Vol] 3.8 mmol/L Normal 3.7-5.3 [facility] Comment on above: Performed By: #### C DP, CP, TROPI ####[facility] [id number] [facility] [place] [address] Lab Director: Willy Henson MD Protein [Mass/Vol] 6.8 g/dL Normal 6.4-8.3 [facility] Comment on above: Performed By: #### C DP, CP, TROPI ####[facility] [id number] [facility] [place] [address] Lab Director: Willy Henson MD Sodium [Moles/Vol] 138 mmol/L Normal 135-144 [facility] Comment on above: Performed By: #### C DP, CP, TROPI ####[facility] [id number] [facility] [place] [address] Lab Director: Willy Henson MD Urea nitrogen [Mass/Vol] 27 mg/dL High 8-23 [facility] Comment on above: Performed By: #### C DP, CP, TROPI ####[facility] [id number] [facility] [place] [address] Lab Director: Willy Henson MD D-Dimer Teston 06-20-2023 D-Dimer Test 0.36 ug/mL FEU Normal 0.00-0.59 [facility] Comment on above: Result Comment: When combined [...] DVT. Performed By: #### D MAGDALENA #### [facility] [address] [place] [address] Rn Ostomy: Willy Henson MD Lactic Acidon 06-20-2023 Lactate [Moles/Vol] 1.2 mmol/L Normal 0.5-2.2 [facility] Comment on above: Performed By: #### L ACTIC, CDP, CP #### [facility] [address] [place] [address] Rn Ostomy: Willy Henson MD Lipaseon 06-20-2023 Lipase [Catalytic activity/Vol] 24 U/L Normal 13-60 [facility] Comment on above: Performed By: #### L IP #### [facility] [address] [place] [address] Rn Ostomy: Willy Henson MD PTon 06-20-2023 INR Coag (PPP) [Relative time] 1.1 {INR} Normal [facility] Comment on above: Result Comment: Therapeutic Range: Moderate Anticoagulant Intensity: INR = 2.0-3.0 High Anticoagulant Intensity: INR = 2.5-3.5 Performed By: #### P TT, PT ####[facility] [id number] [place] [address] Lab Director: Willy Henson MD PT Coag (PPP) [Time] 13.8 s Normal 11.5-14.2 [facility] Comment on above: Performed By: #### P TT, PT ####[facility] [address] [place] [address] lab Director: Willy Henson MD Troponinon 06-20-2023 Troponin, High Sens 6 ng/L Normal 0-14 [facility] Comment on above: Result Comment: High Sensitivity Troponin values cannot be compared with other Troponin methodologies. Performed By: #### C DP, CP, TROPI ####[facility] [id number] [place] [address] lab Director: Willy Henson MD US ABDOMEN LIMITEDon 024 US ABDOMEN LIMITED EXAM: US ABDOMEN LIMITED HISTORY: RUQ pain, question of gallstones on CT. COMPARISON: CT scan abdomen and pelvis 06/20/2023, [facility] abdominal ultrasound 04/04/2023, which showed multiple [...] since this was not present on 04/04/2023 [place] ultrasound). IMPRESSION: The right kidney substantially shadowed by gas without hydronephrosis. Cholelithiasis. Tumefactive sludge versus large gallbladder polyp (less likely since this was not present on 04/04/2023 [place] ultrasound). Interpreted by: Joel Osullivan Jr., MD Signed by: Joel Osullivan Jr., MD 06/20/23 Final result Normal [facility] XR CHEST PORTABLEon 06-20-19 24 XR CHEST PORTABLE EXAMINATION:XR CHEST PORTABLE INDICATION:chst [...] Jaelyn Stanley DO 06/20/23 Final result Normal [facility] Ambulatory Visit Summaryon 0 04-23-2023 Ambulatory Visit Summary MICHEAL BRICE :1940 Visit Date:04/23/2023 Ambulatory Visit Instructions Your Diagnosis Cerumen impaction BMI 34.0-34.9,adult Non-smoker Your Care Team Attending Physician - Camila aMx Primary Care Physician - Camila Max This [...] Follow-Up Appointments Sunday 1:00 PM EST Where: [facility] Family [facility] [place] Normal [facility] Family Medicine Office/Clini c Noteon 04-23-2023 Family [...] 08/07/2013 Recorded tetanus-diphtheria toxoids 03/19/2004 Recorded Normal [facility] Comment on above: Result Comment: Elec tronically Signed By: Camila Max\.br\Date and Time Signed: 04/23/23 11:19 EST Transfer Inon 04-19-2023 Transfer In [id number] .00TIFF [facility] Auth for Release of Medical Recordson 04-18-2023 Auth for Release of Medical Records [id number] .00TIFF [facility] CHEMISTRYOrdered By: SYSTEM SYSTEM on 04-04-2023 [...] Remisol Chem Office Visiton 11-08-2022 Follow-up visit [id number] Micheal Brice 1940 F Date Provider Department Center 11/08/2022 3848-STEVE PEGUERO FRANNIE [facility] Family History Problem Relation Age of Onset Coronary artery disease Mother Other Mother Family Status - Relation Status Age at Mother Level of Service:[address]35 [place] OFFICE/OUTPATIENT NEW MODERATE MDM 45-59 MINUTES Normal [facility] Vital Signs Date Time Vital Sign Value Performing Clinician Facility 08-04-2023 19:02-0400 Body temperature 98.1 [degF] [facility] [employer] 08-04-2023 19:02-0400 Diastolic blood pressure 80 mm[Hg] [facility] [employer] 08-04-2023 19:02-0400 Heart rate 95 /min [facility] [employer] 08-04-2023 19:02-0400 Respiratory rate 16 /min [facility] [employer] 08-04-2023 19:02-0400 SaO2% (BldA) [Mass fraction] 96 % [facility] [employer] 08-04-2023 19:02-0400 Systolic blood pressure 130 mm[Hg] [facility] [employer] 08-03-2023 06:29-0400 Body temperature 97 [degF] Michelle Cox MD Work Phone: [employer] 08-03-2023 06:29-0400 Diastolic blood pressure 69 mm[Hg] Michelle Cox MD Work Phone: [employer] 08-03-2023 06:29-0400 Heart rate 52 /min Michelle Cox MD Work Phone: [employer] 08-03-2023 06:29-0400 Respiratory rate 18 /min Michelle Cox MD Work Phone: [employer] 08-03-2023 06:29-0400 SaO2% (BldA) [Mass fraction] 98 % Michelle Cox MD Work Phone: [employer] 08-03-2023 06:29-0400 Systolic blood pressure 136 mm[Hg] Michelle Cox MD Work Phone: [employer] 08-02-2023 03:35-0400 Body mass index (BMI) [Ratio] 36.45 kg/m2 Michelle Cox MD Work Phone: [facility] [employer] 08-02-2023 03:35-0400 Body weight 90.4 kg Michelle Cox MD Work Phone: [facility] [employer] 08-01-2023 07:45-0400 Body height 157.5 cm Michelle Cox MD Work Phone: [facility] [employer] 07-18-2023 13:11-0400 Body temperature 97.59 [degF] Ramon Olea MD Work Phone: [facility] [employer] 07-18-2023 13:11-0400 Diastolic blood pressure 84 mm[Hg] Ramon Olea MD Work Phone: [facility] [employer] 07-18-2023 13:11-0400 Heart rate 65 /min Ramon Olea MD Work Phone: [facility] [employer] 07-18-2023 13:11-0400 Respiratory rate 17 /min Ramon Olea MD Work Phone: [facility] [employer] 07-18-2023 13:11-0400 SaO2% (BldA) [Mass fraction] 97 % Ramon Olea MD Work Phone: [facility] [employer] 07-18-2023 13:11-0400 Systolic blood pressure 118 mm[Hg] Ramon Olea MD Work Phone: [facility] [employer] 07-18-2023 07:32-0400 Body height 157.5 cm Ramon Olea MD Work Phone: [facility] [employer] 07-18-2023 05:14-0400 Body mass index (BMI) [Ratio] 34.27 kg/m2 Rmaon Olea MD Work Phone: [facility] [employer] 07-18-2023 05:14-0400 Body weight 85 kg Ramon Olea MD Work Phone: [facility] 05-09-2022 08:07-0500 Body height 157.5 cm Luis Felipe Lopes MD Work Phone: [facility] 05-09-2022 08:07-0500 Body mass index (BMI) [Ratio] 37.49 kg/m2 Luis Felipe Lopes MD Work Phone: [facility] 05-09-2022 08:07-0500 Body weight 92.99 kg Luis Felipe Lopes MD Work Phone: [facility] 04-18-2022 08:32-0500 Body height 157.5 cm Luis Felipe Lopes MD Work Phone: [facility] 04-18-2022 08:32-0500 Body mass index (BMI) [Ratio] 37.49 kg/m2 Luis Felipe Lopes MD Work Phone: [facility] 04-18-2022 08:32-0500 Body weight 92.99 kg Luis Felipe Lopes MD Work Phone: [facility] Encounters Encounter Date Encounter Type Care Provider Facility Start: 04-13-2025 ambulatory Camila L Cosmo Facility: [facility] Start: 04-24-2024 End: 04-24-2024 ambulatory Camila L Cosmo Facility:[facility] [place] Start: 04-10-2024 End: 04-10-2024 Lab Drop off Camila L Cosmo [facility] Start: 04-10-2024 End: 04-10-2024 ambulatory KIA SAMUEL Facility:[facility] Start: 10-01-2023 End: 10-01-2023 ambulatory Camila L Cosmo Facility:[facility] Start: 09-03-2023 End: 09-03-2023 ambulatory Camila L Cosmo Facility:[facility] [place] Start: 08-27-2023 End: 08-27-2023 ambulatory [facility] Start: 08-27-2023 End: 08-27-2023 ambulatory Camila L Cosmo Facility:[facility] Start: 08-07-2023 End: 08-07-2023 ambulatory Camila L Cosmo Facility:[facility] [place] Start: 08-06-2023 End: 09-05-2023 ambulatory [facility] Start: 08-05-2023 End: 08-06-2023 ambulatory [facility] Start: 08-04-2023 End: 08-05-2023 ambulatory [facility] Start: 08-04-2023 End: 08-04-2023 Subsequent hospital visit by physician [facility] Op Treatment [address] [facility] Comment on above: Arrived Start: 08-04-2023 End: 08-04-2023 ambulatory [facility] Start: 07-31-2023 End: 08-03-2023 Evaluation and management of inpatient [facility] Start: 07-31-2023 End: 08-03-2023 Evaluation and management of inpatient Michelle Cox MD Work Phone: [facility] Comment on above: Post-operative wound abscess (Primary Dx); Failure of outpatient treatment; Abscess of umbilicus; Abscess of postoperative wound of abdominal wall Start: 07-26-2023 End: 07-26-2023 ambulatory [facility] Facility:[facility] Start: 07-17-2023 End: 07-18-2023 Evaluation and management of inpatient RAMON Ceferino PEREZOLEA [facility] Start: 07-17-2023 End: 07-18-2023 Evaluation and management of inpatient Ramon Olea MD Work Phone: [facility] Comment on above: Incarcerated ventral hernia (Primary Dx); Wound dehiscence; Post-op pain Start: 06-27-2023 End: 06-27-2023 ambulatory Camila L Cosmo Facility:[facility] Start: 06-26-2023 End: 08-01-2023 ambulatory Camila L Cosmo Facility:CD:[id number] Start: 06-20-2023 Evaluation and manag ement of inpatient [facility] Start: 04-23-2023 End: 04-23-2023 ambulatory Camila L Cosmo Facility:[facility] Start: 04-04-2023 End: 04-04-2023 Lab Drop off KIA SAMUEL [facility] Start: 11-08-2022 End: 11-08-2022 [facility] Start: 05-09-2022 End: 05-09-2022 ambulatory PHYSICIAN NO [facility] Ambulatory Start: 05-09-2022 End: 05-09-2022 Office outpatient visit 15 minutes Luis Felipe Lopes MD Work Phone: [facility] Comment on above: History of total rig ht knee replacement (Primary Dx) Start: 04-28-2022 Refill Niurka Fitzgerald MA [facility] Start: 04-18-2022 End: 04-22-2022 ambulatory PHYSICIAN NO [facility] Ambulatory Start: 04-18-2022 End: 04-18-2022 Office outpatient new 30 minutes Luis Felipe Lopes MD Work Phone: [facility] Comment on above: History of [...] Ct abdomen & pelvis w/contrast material Richelle Jeffery La PA-C Work Phone: Start: 07-31-2023 Basic metabolic pane l calcium total Richelle Jeffery La PA-C Work Phone: Start: 07-18-2023 Comprehensive [...] obstruction Stomach structure (b sanford structure) KIA JIMMIE Comment on above: 1968 Plan of Treatment Date Care Activity Detail Author Start: 10-18-2023 Influenza vaccination Flu vacc ine (Season Ended) [facility] Start: 08-27-2023 End: 08-27-2023 Patient encounter procedure 08/27/2023 2:30 PM EDT Office Visit [address] [place] [address] Ramon Olea MD [address] [place] [address] [address] [place] [address] 4 weeks [facility] Comment on above: 4 weeks Start: 08-08-2023 DTaP/Tdap/Td vaccine (2 - Td or Tdap) DTaP/Tdap/Td vaccine (2 - Td or Tdap) [facility] Start: 08-08-2023 Tetanus vaccination Tetanus: Every 1 0yrs [facility] Start: 08-07-2023 End: 08-07-2023 Patient encounter procedure 08/07/2023 2:30 PM EDT Office Visit [address] [place] [address] Ramon Olea MD [address] [place] [address] [address] [place] [address] post op, fistula 1 and D. [facility] Comment on above: post op, fistula 1 a nd D. Start: 08-06-2023 End: 08-06-2023 Patient encounter procedure 08/06/2023 7:00 AM EDT Appointment [facility] ([facility] [address] [place] [address] [phone] [facility] Start: 08-05-2023 End: 08-05-2023 Patient encounter procedure [facility] ([facility] Start: 08-04-2023 End: 08-04-2023 Patient encounter procedure [facility] ([facility] Start: 07-25-2023 End: 07-25-2023 Patient encounter procedure 07/25/2023 4:30 PM EDT Office Visit [address] [place] [address] Ramon Olea MD [address] [place] [address] [address] [place] [address] post op check, revision of umbilical incision [facility] Comment on above: post op check, jose ion of umbilical incision Start: 06-20-2023 Annual Wellness Visi t (Medicare) Annual Wellness Visit (Medicare) [facility] Start: 05-08-2023 End: 05-08-2023 Patient encounter procedure 05/08/2023 Office Visit Orthopedic Surgery Luis Felipe Lopes MD [address] [place] [id number] [facility] Start: 05-09-2022 End: 05-09-2022 Patient encounter procedure 05/09/2022 Office Visit Orthopedic Surgery Luis Felipe Lopes MD [address] [place] [id number] [facility] Start: 11-17-2021 Influenza vaccination Sequenti al Influenza Vaccine (#1) [facility] Start: 2007 Fall risk assessment Falls Risk Asse ssment [facility] Start: 2007 Pneumococcal 65+ yea rs Vaccine (1 of 1 - PCV) Pneumococcal 65+ years Vaccine (1 of 1 - PCV) [facility] Start: 2007 Pneumococcal Vaccine : Age 65+ (1 - PCV) Pneumococcal Vaccine: Age 65+ (1 - PCV) [facility] Start: 2002 Respiratory Syncytia l Virus (RSV) or age 60 yrs+ (1 - 1-dose 60+ series) Respiratory Syncytial Virus (RSV) or age 60 yrs+ (1 - 1-dose 60+ series) [facility]: 1992 Administration of he rpes zoster vaccine Zoster Vaccines (1 of 2) [facility] Start: 1992 Shingles vaccine (1 of 2) Shingles vaccine (1 of 2) [facility] Start: 1982 Screening for malign ant neoplasm of breast Mammogram [facility] Start: 1954 Depression Screen Depression Screen [facility] Start: 1954 Depression screening using PHQ-9 (Patient Health Questionnaire 9) score Depression Screening (PHQ-2/9) [facility] Start: 1945 History and physical examination, annual for health maintenance Wellness Visit [facility] Start: 1942 COVID-19 Vaccine (#1) COVID-19 Vacci ne (#1) [facility] Start: 1942 Screening for osteoporosis Dexa Scan [facility] End: 11-07-2023 CBC W Auto Differential panel - Blood CBC auto differential Lab Routine Tomorrow AM for 99 Occurrences starting 08/01/2023 until 11/07/2023, 3 completed [employer] [facility] Comment on above: Tomorrow AM for 99 O ccurrences starting 08/01/2023 until 11/07/2023, 3 completed End: 11-07-2023 Comprehensive Metabolic Panel w/ Reflex to MG Comprehensive Metabolic Panel w/ Reflex to MG Lab Routine Tomorrow AM for 99 Occurrences starting 08/01/2023 until 11/07/2023, 3 completed [employer] Comment on above: Tomorrow AM for 99 O ccurrences starting 08/01/2023 until 11/07/2023, 3 completed Culture, Anaerobic a nd Aerobic [facility] Comment on above: Release Upon Orderin g for 1 Occurrences starting 07/31/2023 Oxygen therapy [Mini mum Data Set] Initiate Oxygen Therapy Protocol Respiratory Care Routine As Needed until discontinued starting 07/17/2023 [employer] Comment on above: As Needed until disc ontinued starting 07/17/2023 Oxygen therapy [Mini mum Data Set] Initiate Oxygen Therapy Protocol Respiratory Care Routine As Needed until discontinued starting 07/31/2023 [employer] Comment on above: As Needed until disc ontinued starting 07/31/2023 Surgical Pathology Surgical Path ology Lab Routine Wound dehiscence Release Upon Ordering for 1 Occurrences starting 07/17/2023 [facility] [employer] Comment on above: Release Upon Orderin g for 1 Occurrences starting 07/17/2023 End: 07-17-2023 SURGICAL PATHOLOGY REPORT SURGICAL PATHOLOGY REPORT Lab Routine Once for 1 Occurrences starting 07/17/2023 until 07/17/2023 [facility] [employer] Comment on above: Once for 1 Occurrenc es starting 07/17/2023 until 07/17/2023 Immunizations Immunization Date Immunization Notes Care Provider Fa horace 08-07-2013 tetanus toxoid, reduced diphtheria toxoid, and acellular pertussis vaccine, adsorbed KIA SAMUEL [facility] 03-19-2004 tetanus and diphther ia toxoids, adsorbed, preservative free, for adult use (2 Lf of tetanus toxoid and 2 Lf of diphtheria toxoid) KIA SAMUEL [facility] NEGATED: Highlighted row has not occurred!04-10-2024 influenza virus vaccine, unspecified formulation Camila Carlos [facility] Payers Date Payer Category Payer Private Health Insurance [id number] 2023 Private Health Insurance [id number] 2021 Medicare [facility]CORE PPO/RPPO [id number] 2021-Present [phone] [address] [place] [address] [id number] 2007 Medicare [id number] 1959 Unknown [id number] 1942 Unknown [id number] 2.16.840.1.819794.3.579.2 .593 1942 Unknown [id number] 2.16.840.1.358666.3.579.2 .903 1942 Unknown [id number] 2.16.840.1.706918.3.579.2 .903 1942 Unknown [id number] 2.16.840.1.260006.3.579.2 .903 1942 Unknown [id number] 2.16.840.1.819357.3.579.2 .174 1942 Unknown [id number] 2.16.840.1.182755.3.579.2 .173 1942 Unknown [id number] 2.16.840.1.838082.3.579.2 .173 1942 Unknown [id number] 2.16.840.1.800109.3.579.2 .173 1942 Unknown [id number] 2.16.840.1.881988.3.579.2 .173 1942 Unknown [id number] 2.16.840.1.524886.3.579.2 .173 1942 Unknown [id number] 2.16.840.1.025653.3.579.2 .173 1942 Unknown [id number] 2.16.840.1.024395.3.579.2 .1286 1942 Unknown [id number] 2.16.840.1.142988.3.579.2 .727 1942 Unknown [id number] 2.16.840.1.815315.3.579.2 .727 1942 Unknown [id number] 2.16.840.1.996804.3.579.2 .727 1942 Unknown [id number] 2.16.840.1.048523.3.579.2 .727 1942 Unknown [id number] 2.16.840.1.555313.3.579.2 .727 1942 Unknown [id number] 2.16.840.1.321472.3.579.2 .727 1942 Unknown [id number] 2.16.840.1.275297.3.579.2 .727 1942 Unknown [id number] 2.16.840.1.419683.3.579.2 .727 1942 Unknown [id number] 2.16.840.1.755089.3.579.2 .727 1942 Unknown [id number] 2.16.840.1.565540.3.579.2 .727 1942 Unknown [id number] 2.16.840.1.939704.3.579.2 .727 1942 Unknown [id number] 2.16.840.1.249891.3.579.2 .727 1942 Unknown [id number] 2.16.840.1.249743.3.579.2 .727 1942 Unknown [id number] 2.16.840.1.278454.3.579.2 .727 Social History Date Type Detail Facility Tobacco smoking stat [facility] Tobacco smoking consumption unknown [facility] Start: 1942 Sex Assigned At Not on file O [facility]MDeal Start: 04-08-2022 End: 05-09-2022 Exposure to SARS-CoV-2 (event) Not sure [facility] Start: 04-04-2023 End: 04-10-2024 Tobacco smoking status Never smoked tobacco (finding) [facility] Comment on above: denies use. Tobacco smoking status Never [facility] Comment on above: denies use. Start: 06-20-2023 End: 07-31-2023 Sex Assigned At Female [facility] Start: 07-17-2023 End: 08-03-2023 Alcohol intake Current non-drinker of alcohol (finding) [facility] Start: 07-17-2023 End: 07-31-2023 Alcohol intake [facility] Has the electric, ga s, oil, [employer] threatened to shut off services in your home in past 12Mo No Dojo How often to you hav e a drink containing alcohol? Never Dojo (I/We) worried zenaida er (my/our) food would run out before (I/we) got money to buy more. Never true [facility] [employer] Clinical Notes 03-30-2022 to 04-10-2024 Osei Hancock [...] Keep all follow-up visits. Medicines ??? Take [id number]-fkl-[id number] and prescription medicines only as told by [...] Hypertension is a (more content not included)... [facility] 08-08-2023 Note [id number]#[id number] [facility] 08-03-2023 History of Presen t illness Narrative Patient escorted off unit and discharged at this time. No additional requests from adjusto writer operator. Strategy Lead reviewed discharge instructions with the patient. Reviewed medications, follow up appointments, and when to seek medical attention. Patient is aware of outpatient wound care BID 7 am and 7 pm. Wound care instructions given to the patient as well. Patient denies further questions. Patient's son will be driving her home. Patient requested to put medicated honey on wound. Strategy Lead spoke with Dr. Castañeda and he states to only use iodoform on wound. No medicated honey. Strategy Lead notified the patient who is agreeable. Postoperative [...] in the next 7 to 10 days Strategy Lead arrived to bedside at this time after notification from [facility] that patient had accidentally removed IV. Patient states they accidentally pulled IV out when they were using the restroom. Site assessed, no complications. Care ongoing. Patient is walking the halls independently at this time. Images from the original note were not included. [address] , [place], [place], [address] Progress Note Date: 08/03/2023 Patient name: Micheal [...] Foot surgery (Right); Colonoscopy; Tonsillectomy and adenoidectomy; [place] tooth extraction; Thumb amputation (Right); Finger replantation [...] clubbing or edema DIAGNOSTICS: Laboratory Testing: See [facility] EMR for lab data No results [...] sodium chloride 0.9 % 50 mL IVPB ([id number]) 3,375 mg IntraVENous Q8H Luis Felipe Castañeda [...] this chart was generated using voice recognition [employer] dictation software. Although every effort was made to ensure the accuracy of this automated echocardiography tech, some errors in echocardiography tech may have occurred. Radhika Magana MD 08/03/2023 [...] resolved Spiritual Services Interventions 0322/0322-01 08/02/2023 Ignacio Brice 83 y.o. year old female Encounter [...] Assessment: (P) Calm Intervention: (P) Prayer (assurance of)/[place], Discussed belief system/religion practices/ly, Discussed illness injury and it s [...] the patient's medical record. [DOES NOT SATISFY [facility] PERFORMANCE] Michelle Cox MD , M.D. Vitals and assessment complete at this time. [...] performed. Awaiting cultures. Critical Care Time: 0 [facility] Advanced Care Planning documentation: [x] [...] MIPS PERFORMANCE] Michelle Cox MD , MMary. Comprehensive Nutrition Assessment Type and Reason for [...] loss Fluid Accumulation: No significant fluid accumulation Domestic Cleaner Strength: Not Performed Nutrition Assessment: Increased nutrient needs r/t acute injury/trauma AEB surgical site infection. Pt underwent cholecystectomy and hernia repair 2 weeks ago and admitted for infection at surgical site. Pt reported a good appetite and no N/V/D. Active b/s, no edema noted. Pt reported weight prior to surgery 198# and is trying to lose weight. Strategy Lead educated pt on importance of maintaining wt [...] Measures: Height: 157.5 cm (5' 2 ) [place] Body Weight (IBW): 110 lbs (50 kg) [...] Used for Energy Requirements: Current Energy (kcal/day): 8423-8639 (15-18) Weight Used for Protein Requirements: [place] Protein (g/day): 75-90 (1.5-1.8) Method Used for Fluid Requirements: 1 ml/kcal Fluid (ml/day): 1600 Nutrition Diagnosis: Increased nutrient needs related to acute injury/trauma as evidenced by other (comment) (surgical site infection) Hematology: Recent Labs 07/31/23141408/01/23 0545 WBC 11.2 11.9* HGB 11.7* 11.5* HCT 36.6 35.6* Chemistry: Recent Labs 07/31/23141408/01/23 0545 NA 138 138 K 4.5 4.6 CL 101 104 CO2 26 23 GLUCOSE 102* 142* BUN 24* 18 CREATININE 0.7 0.6 CALCIUM 9.6 9.2 Recent Labs 08/01/2345 AST 15 ALT 11 ALKPHOS 129* BILITOT [...] Planning: Too soon to determine Yessy Dyer Gas Examiner Contact: [phone] Patient's son, Noe, called for an update. Update given after confirming with pt that it was ok for adjusto writer operator to speak with him. Admission assessment complete, [...] reach. Care ongoing. documented in this encounter [facility] 08-03-2023 Hospital Discharg e instructions Chloe Torres [...] at most local grocery stores, pharmacies, and [employer]-stores. If you have any questions about your [...] for healthcare treatment Living will;Durable power of trust and estates attorney for health care No, copy requested from [...] OMPHALECTOMY performed by Ramon Olea MD at [facility] OR ABDOMINAL ADHESION SURGERY ABDOMINAL EXPLORATION SURGERY CHOLECYSTECTOMY, LAPAROSCOPIC N/A 06/20/2023 CHOLECYSTECTOMY LAPAROSCOPIC performed by Ramon Olea MD at [facility] OR COLONOSCOPY FINGER REPLANTATION Right index with ori placement and removal FOOT SURGERY Right dislocation STOMACH SURGERY N/A 07/17/2023 SINGLE ANASTOMOSIS OF TRANSVERSE COLON performed by Ramon Olea MD at [facility] OR THUMB AMPUTATION Right partial TONSILLECTOMY AND ADENOIDECTOMY TOTAL KNEE ARTHROPLASTY Right UMBILICAL HERNIA REPAIR N/A 07/17/2023 HERNIA UMBILICAL REPAIR - REVISION UMBILICAL INCISION, Ricther hernia repair with tranverse colon anastomosis performed by Ramon Olea MD at [facility] OR WISDOM TOOTH EXTRACTION Immunization History: [...] 4.8 oz) Mental Status: {IP PT MENTAL STATUS:} IV Access: { MALAIKA IV ACCESS:030270954} Nursing Mobility/ADLs: Walking {CHP DME ADLs:191702344} Transfer {CHP DME ADLs:608677449} Bathing {CHP DME ADLs:950717078} Dressing {CHP DME ADLs:618417246} Toileting {CHP DME ADLs:340998004} Feeding {CHP DME ADLs:142186642} Executive Housekeeper {CHP DME ADLs:703503563} Med Delivery { MALAIKA MED Delivery:388621272} Wound Care Documentation and Therapy: Incision 07/31/23 Abdomen Lower;Medial (Active) Dressing Status New dressing applied 08/03/23 0020 Dressing Change Due 08/03/23 08/03/23 002 Incision Cleansed Soap and water 08/03/23 002 Dressing/Treatment Packing/iodaform packing;Non-adherent 08/03/23 0020 Margins Approximated 08/03/23 0020 Incision Assessment Dry;Erythema 08/03/23 0020 Drainage Amount Scant (moist but unmeasurable) 08/03/23 0020 Drainage Description Clear;Thin 08/02/23 1215 Odor None 08/03/23 0020 Chelsie-incision Assessment Dry/flaky;Intact;Warm 08/03/23 0020 Number of days: 2 Elimination: Continence: Bowel: {YES / NO:} Bladder: {YES / NO:} Urinary Catheter: {Urinary Catheter:093698920} Colostomy/Ileostomy/Ileal Conduit: {YES / NO:} Date of Last BM: Intake/Output Summary (Last 24 hours) at 08/03/2023 0448 Last data filed at 08/02/2023 1845 Gross per 24 hour Intake 2816.33 ml Output -- Net 2816.33 ml I/O last 3 completed shifts: In: 2816.3 [P.O.:800; I.V.:1637; IV Piggyback:379.3] Out: - Safety Concerns: { MALAIKA Safety Concerns:229216301} Impairments/Disabilities: { MALAIKA Impairments/Disabilities:332036 273} Nutrition Therapy: Current Nutrition Therapy: { MALAIKA Diet List:206808579} Routes of Feeding: {CHP DME Other Feedings:606303126} Liquids: {Patient Accounts Manager liquid thickness:91978} Daily Fluid Restriction: {CHP DME Yes amt example:106376717} Last Modified Barium Swallow with Video (Video Swallowing Test): {Done Not Done Date:} Treatments at the Time of Hospital Discharge: Respiratory Treatments: Oxygen Therapy: {Therapy; copd oxygen:91845} Ventilator: {[facility] Vent List:258214798} Rehab Therapies: {THERAPEUTIC INTERVENTION:9295237344} Weight Bearing Status/Restrictions: { CC Weight Bearin} Other Medical Equipment (for information only, NOT a DME order): {EQUIPMENT:910030263} Other Treatments: Patient's personal belongings (please select all that are sent with patient): {CHP DME Belongings:786758828} RN SIGNATURE: {Esignature:743537408} CASE MANAGEMENT/SOCIAL WORK SECTION Inpatient Status Date: Readmission Risk Assessment Score: Readmission Risk Risk of Unplanned Readmission: 11 Discharging to Facility/ Agency Name: Address: Phone: Fax: Dialysis Facility (if applicable) Name: Address: Dialysis Schedule: Phone: Fax: Platform Supervisor/Cellophaner signature: {Esignature:499649946} PHYSICIAN SECTION Prognosis: {Prognosis:1274964987} Condition at Discharge: { Patient Condition:525925504} Rehab Potential (if transferring to Rehab): {Prognosis:0186689836} Recommended Labs or Other Treatments After Discharge: Physician Certification: I certify the above information and transfer of Micheal Brice is necessary for the continuing treatment of the diagnosis listed and that she requires {Admit to Appropriate Level of Care:00596} for {GREATER/LESS:142963447} 30 days. Update Admission H&P: {CHP DME Changes in HandP:780476472} PHYSICIAN SIGNATURE: The following attachments cannot be sent through Care Everywhere.Abscess: Skin ([place]izen [place])documented in this encounter [facility] 07-25-2023 Note [id number]#[id number] [facility] 07-18-2023 History of Presen t illness Narrative Patient discharged home at this time. Reviewed discharge instructions with patient. Patient aware of need to curing pickling packer prescription. Reviewed new medication and side effects [...] muscle mass loss Fluid Accumulation: Mild Extremities Domestic Cleaner Strength: Not Performed Nutrition Assessment: Food and [...] Measures: Height: 157.5 cm (5' 2 ) [place] Body Weight (IBW): 110 lbs (50 kg) [...] Used for Energy Requirements: Current Energy (kcal/day): 1721-9751 (18-22) Weight Used for Protein Requirements: [place] Protein (g/day): 65-75 (1.3-1.5) Method Used for [...] needs at this time Yusuf Monson RD, LD Contact: [phone] Strategy Lead to bedside to complete morning assessment. Upon entry to room, pt sitting up in chair, respirations even and unlabored while on room air. Vitals obtained and assessment completed, see flow sheet for details. Pt denies any pain at this time. Pt denies needs from adjusto writer operator at this time. Call light in reach. [...] care team. Patient transported via cart to [facility] Room 327 with RN and belongings. Staff [...] voicemail set up. documented in this encounter [facility] 07-18-2023 Hospital course Narrative Discharge Summary Date: [...] and follow up. documented in this encounter [facility] 07-18-2023 [facility] Discharg Chloe Perez RN - 07/18/2023 2:37 PM EDT 1) [...] if you have questions or problems @ [phone] Chloe Ford RN - 07/18/2023 2:44 PM EDT As [...] most local grocery stores, pharmacies, and chain [employer]-stores. If you have any questions about your diet or nutrition, call the hospital and ask for the dietitian. Low Fat The following attachments cannot be sent through Care Everywhere.Abdominal Hernia Repair: Post-op ([place]izen [place])Surgical Site Infections: Prevention: General Info ([place]izen [place])documented in this encounter [facility] 06-26-2023 Note [id number]#1.00TIFF [facility] 11-08-2022 Note Cardiology Clinic No te Chief [...] or concerns. Steve Peguero MD Interventional Cardiology [facility] 11-08-2022 Note New patient here to [...] All other systems reviewed and are negative. [facility] 05-09-2022 History of Presen t illness Narrative [...] did advise her we really want to curing pickling packer her exercise and activity level. We will see her in a year for reevaluation. No orders of the defined types were placed in this encounter. Return in about 1 year (around 05/09/2023) for Annual physical, xrays. Note: To expedite correspondence this note was generated by [employer] voice recognition software. Some grammatical or spelling errors may occur using the system. documented in this encounter [facility] 04-28-2022 Telephone encounter Note Patient called with question with whether she should finish keflex , she was instructed to finish antibiotic . [facility] 04-28-2022 Miscellaneous Notes Patient called with question with whether she should finish keflex , she was instructed to finish antibiotic . documented in this encounter [facility] 04-18-2022 History of Presen t illness Narrative [...] expedite correspondence this note was generated by [employer] voice recognition software. Some grammatical or spelling errors may occur using the system. documented in this encounter [facility] 03-30-2022 Note PROCEDURE: XR ELBOW RT MIN [...] authenticated by: MIGEL RAMSEY Date: 2022-03-30 12:47 [facility] 03-30-2022 Note PROCEDURE: XR KNEE R [...] authenticated by: MIGEL RAMSEY Date: 2022-03-30 12:42 [facility] Evaluation + Plan note Future Appointments Appointment Date:04/07/2024 01:00:00 PM Scheduled Provider: Location:[facility] Appointment Type: Medicare Wellness Subsequent [facility] Evaluation + Plan note Future Appointments Appointment Date:04/13/2025 09:30:00 AM Scheduled Provider: Location:[facility] Appointment Type: Medicare Wellness Subsequent Appointment Date:04/13/2025 10:20:00 AM Scheduled Provider:Camila Max Location:[facility] Appointment Type: Open [facility] Evaluation note Diagnosis History of total right knee replacement- Primary [facility] Diagnosis Incarcerated umbilical hernia- Primary Umbilical hernia with obstruction Wound dehiscence Disruption of external operation (surgical) wound Incarcerated ventral hernia Ventral hernia, unspecified, with obstruction Post-op pain Other acute postoperative pain Wound dehiscence Disruption of external operation (surgical) wound Incarcerated ventral hernia Ventral hernia, unspecified, with obstruction Hypertension Unspecified essential hypertension Mild malnutrition (HCC) Malnutrition of mild degree documented [facility] Diagnosis Abscess of postoperative wound of abdominal wall- Primary Post-operative wound abscess Other postoperative infection Failure of outpatient treatment Abscess of umbilicus Cellulitis and abscess of trunk Abscess of postoperative wound of abdominal wall [facility] No data available for this section [facility] instructions No data available for this section [facility] No data available for this section [facility] Summary Purpose Family History No Family [...] Communication Iain Hancock Child Primary Decision Maker Latest Code Status [...] Communication Iain Hancock Child Primary Decision Maker Latest Code Status [...] Specialty Diagnoses / Procedures Referred By Jeni t Referred To Contact Wound Care Diagnoses Abscess of umbilicus Abscess of postoperative wound of abdominal wall Radhika Magana MD [address] [place] [address] Referral ID Status Reason Start Date Expiration Date V isits Requested Visits Authorized [id number] [facility] Required 08/03/2023 01/30/2024 1 1 Scheduling Instructions [facility] Question Answer Reason For External Referral? Location Comments The patient can be scheduled with any member of the group, including the provider with the first available appointments. Additional Source Comments INFORMATION SOURCE (unrecogn ized section and content) DATE CREATED AUTHOR 04/01/2022 [facility] DATE CREATED AUTHOR AUTHOR'S ORGANIZ ATION 05/10/2022 [facility] DATE CREATED AUTHOR AUTHOR'S ORGANIZ ATION 11/09/2022 [facility] DATE CREATED AUTHOR AUTHOR'S ORGANIZ ATION 06/22/2023 W[facility] DATE CREATED AUTHOR AUTHOR'S ORGANIZ ATION 08/07/2023 [facility] DATE CREATED AUTHOR AUTHOR'S ORGANIZ ATION 08/28/2023 [facility] DATE CREATED AUTHOR AUTHOR'S ORGANIZ ATION [facility] DATE CREATED AUTHOR AUTHOR'S ORGANIZ ATION 04/12/2024 Gilliam Tello [facility] DATE CREATED AUTHOR AUTHOR'S ORGANIZ ATION 04/26/2024 [facility] Reason for Visit (unrecogniz [...] Diagnoses Wound dehiscence Wound dehiscence [T81.30XA] Procedures SC RPR AA HERNIA RECR < 3 CM REDUCIBLE HERNIA UMBILICAL REPAIR - REVISION UMBILICAL INCISION, POSSIBLE HERNIA REPAIR, POSSIBLE UMBILECTOMY Ramon Olea MD [address] [place] [address] [address] [place] [address] [facility] [address] [place] [address] Referral ID Status Reason Start Date Expiration Date Visits Re quested Visits Authorized [id number] 1 1 Reason Comments Post-op Problem Hernia repaired done July 16. Pt has been going on since 3 days after the surgery. Pt denied any fever. Pt stated she is fatigued, achy, and has not been feeling herself. Care Teams (unrecognized sec tion and content) Natural Remedy Consultant Relationship Specialty Start Date End Date No, Physician [facility] PCP - General 04/18/22 Natural Remedy Consultant Relationship Specialty Start Date End Date No, Physician [facility] PCP - General 04/18/22 Natural Remedy Consultant Relationship Specialty Start Date End Date Camila Carlos APRN - ADULT SCHOOL COUNSELOR [address] [id number] PCP - General 06/20/23 Natural Remedy Consultant Relationship Specialty Start Date End Date Camila Carlos APRN - ADULT SCHOOL COUNSELOR [address] [place] [address] PCP - General 06/20/23 Natural Remedy Consultant Relationship Specialty Start Date End Date Camila Carlos APRN - ADULT SCHOOL COUNSELOR [address] [place] [address] PCP General 06/20/23 Ordered Prescriptions (unrec ognized section [...] 100 mL IVPB (COMPLETED) 2,000 mg, IntraVENous, VOCATIONAL TECHNICAL EDUCATION DIRECTOR TO O.R., 1 dose, On Sun07/17/23 at 0830, Antimicrobial Indications: Surgical Prophylaxis, Administer within 1 hour prior to incision. Recommend to repeat in 3-4 hours after initial dose if still intra-op., Pre-op (day of surgery) 1020 (New Bag - Provider: Krys Heart RN - Comment: industrial accountant to the OR)1350 (Stopped - Provider: Fabi [...] Post-op 1305 (New Bag - Provider: Fabi Duran, RN)2329 (New Bag - Provider: Angela Nguyen RN) 0727 (Stopped - Provider: Yessy Montes RN) lactated ringers IV soln infusion (CANCELED) IntraVENous, at 100 mL/hr, CONTINUOUS, Starting on Sun07/17/23 at 0830, Pre-op (day of surgery) 0826 (New Bag - Provider: Elva Hernandez RN)1032 (NoRateChange - Provider: Dee Rodriguez APRN - RAW STOCK DYEING MACHINE TENDER)1145 (Anesthesia Volume Adjustment - Provider: Dee Rodriguez APRN - RAW STOCK DYEING MACHINE TENDER)1255 (Stopped - Provider: Fabi Duran RN) PRN [...] Elda Sousa RN)1416 (Stopped - Provider: Olivia Richmond, SARKIS)2145 (New Bag - Provider: Angela Ladd RN)2245 [...] sodium chloride 0.9 % 50 mL IVPB ([id number]) 3,375 mg, IntraVENous, EVERY 8 HOURS, First dose on Sun07/31/23 at 2115, Until Discontinued, Antimicrobial Indications: Surgical Site Infection 0233 (Stopped - Provider: Angela Nguyen RN)0659 (New Bag - Provider: Elda Sousa RN)1002 (Stopped - Provider: Elda Sousa RN)1435 (New Bag - Provider: Olivia Richmond, SARKIS)1825 (Stopped - Provider: Olivia Richmond, SARKIS)2332 (New Bag - Provider: Angela Ladd RN) 0325 (Stopped - Provider: Angela Ladd RN)0729 (New Bag - Provider: Chloe Torres RN)1129 (Stopped - Provider: Chloe Torres RN)1540 (New Bag - Provider: Chloe Torres [...] per Dr. Castañeda)2300 (Due - Provider: Horacio Resendiz [facility]) sodium chloride flush 0.9 % injection 5-40 [...] mL/lumen 0930 (Given - Provider: Elda Sousa RN)195 (Not Given - Provider: Angela Ladd RN [...] Alanis RN)2143 (New Bag - Provider: Angela Ladd, RN) 1316 (New Bag - Provider: Chloe Torres, RN) 0310 (New Bag - Provider: Angela Ladd, RN)0649 (Stopped - Provider: Chloe Torres, RN) PRN Medication Order 08/01/2023 08/02/2023 08/03/2023 [...] Other, Magnesium Replacement, Starting on Sun07/31/23 at 1826, Mag Lab Replacement Action 1.4-1.6 mg/dL 2,000 [...] mEq, Oral, PRN, Starting on Sun07/31/23 at 182, Until Discontinued, Per Potassium Replacement Protocol, Administer [...] mL, IntraVENous, PRN, Starting on Sun07/31/23 at 182, Until Discontinued, Line Care, After every IV line use Linked Groups Order Group 1: acetaminophen (TYLENOL) tablet 650 mgJump to med 650 mg, Oral, EVERY 6 HOURS PRN, Starting on Sun07/31/23 at 182, Until Discontinued, Pain Mild (1-3), Fever, For temp greater than 100.4 F (38 C)
Maximum dose of acetaminophen is 4000 mg from all sources in 24 hours.
Or acetaminophen (TYLENOL) suppository 650 mgJump to med 650 mg, Rectal, EVERY 6 HOURS PRN, Starting on Sun07/31/23 at 182, Until Discontinued, Pain Mild (1-3), Fever, For [...] BE BASED ON THE PRIMARY CLINICAL RECORDS. [employer] provides no warranty or guarantee of the accuracy or completeness of information in this document.
== END 2024-04-28 08:47 | disposition home or self-care (01) ==
PROVIDERS: PCP Family Medicine; Visit Provider Nurse Practitioner
DX: R22.31 Localized swelling, mass and lump, right upper limb (principal)
CPT/HCPCS: 76882

== ENCOUNTER 2024-10-20 10:57 | Outpatient (OUT) | payer MEDICARE, OTHER, SELFPAY ==
--- OUTSIDE RECORDS SUMMARY | 2024-10-14 23:59 | XMS_ITS | Continuity of Care Document ---
Author Organization [facility] Address [address] [place] [address] Care Team Providers Care Business English Instructor Name Role Phone Jessie Carlos Primary Care Physician Encounter FT_[facility] [id number] Date(s): 10/14/24 - 10/14/24 [facility] [address] [place] [address]- Encounter Diagnosis Flank pain(Discharge Diagnosis) - 10/14/24 Excessive sweating(Discharge Diagnosis) - 10/14/24 Hair thinning(Discharge Diagnosis) - 10/14/24 Body mass index [BMI] 34.0-34.9, adult(Discharge Diagnosis) - 10/14/24 Other obesity due to excess calories(Discharge Diagnosis) - 10/14/24 Non-smoker(Discharge Diagnosis) - 10/14/24 BMI 34.0-34.9,adult(Discharge Diagnosis) - 10/14/24 Class 1 obesity due to excess calories with body mass index (BMI) of 34.0 to 34.9 in adult(Discharge Diagnosis) - 10/14/24 Lipoma of arm(Discharge Diagnosis) - 10/14/24 Discharge Disposition: Home (Routine DC) Attending Physician: Jessie Max Encounter Type: Clinic Allergies, Adverse Reactions, Alerts No Known Allergies Assessment and Plan Future Appointments Appointment Date:10/21/2024 02:00:00 PM Scheduled Provider:Alfonso DUDLEY MD Location:[facility] Appointment Type:[place] [address] Appointment Date:04/13/2025 09:30:00 AM Scheduled Provider: Location:[facility] Appointment Type:FM Medicare Wellness Subsequent Appointment Date:04/13/2025 10:20:00 AM Scheduled Provider:Jessie Max Location:[facility] Appointment Type: Open Immunizations Given and Recorded Vaccine Date Status Refusal Reason diphtheria/pertussis, acel/tetanus adult 08/07/13 Recorded tetanus-diphtheria toxoids 03/19/04 Recorded Not Given Vaccine Date Status Refusal Reason influenza virus vaccine, inactivated 04/10/24 Not Given Parent Or Guardian Refuses Medications Acidophilus Probiotic Blend 1 cap(s), Oral, BID, Refill(s) 0 Start Date: 06/26/23 Status: Ordered Repeat number: 1 amLODIPine 5 mg Tab 5 mg = 1 tab(s), Oral, Daily, X 90 day(s), # 90 tab(s), Refills(s) 3, Pharmacy: [facility] #[id number], 158, cm, 10/01/23 15:37:00 EDT, Height/Length Dosing, 84, kg, 10/01/23 15:37:00 EDT, Weight Dosing Start Date: 12/06/23 Stop Date: 11/30/24 Status: Ordered Quantity: 90.0 Unit: tab(s) Repeat number: 4 calcium (as carbonate) 600 mg oral tablet 1,200 mg = 2 tab(s), Oral, Daily, X 90 day(s), # 180 tab(s), Refills(s) 3, [id number], 158, cm, 04/24/24 14:32:00 EST, Height/Length Dosing, 88.3, kg, 04/24/24 14:32:00 EST, Weight Dosing Start Date: 05/01/24 Stop Date: 04/26/25 Status: Ordered Quantity: 180.0 Unit: tab(s) Repeat number: 4 Vitamin D 50,000 intl units (1.25 mg) oral capsule 50,000 International_Unit = 1 cap(s), Oral, qWeek, # 12 cap(s), Refills(s) 4, Pharmacy: [facility] #[id number], 158, cm, 04/24/24 14:32:00 EST, Height/Length Dosing, 88.3, kg, 04/24/24 14:32:00 EST, Weight Dosing Start Date: 05/01/24 Status: Ordered Quantity: 12.0 Unit: cap(s) Repeat number: 5 Problem List Condition Confirmation Course Effective Dates Status Health Status Informant Skin texture changes Confirmed Active Excessive sweating Confirmed Active Flank pain Confirmed Active Ganglion cyst of dorsum of right wrist Confirmed Active Wart of hand Confirmed Active S/P cholecystectomy Confirmed Active Hypercholesteremia Confirmed Active Hypertension Confirmed Active Lipoma of back Confirmed Active Lipoma of arm Confirmed Active Hair thinning Confirmed Active Mass of soft tissue of upper arm Confirmed Active Procedures Procedure Date Related Diagnosis Body Site Status Cholecystectomy 2023 Completed Ankle 1 Completed Bowel 2 Completed Cataract 3 Completed Finger Completed Knee replacement 4 Comple mya Stomach 5 Completed 1right 2obstruction 3bilateral 2005 32069, right 67829 Social History Social History Type Response Smoking Status Never (less than 100 in lifetime);Never 1 entered on: 10/14/24 Sex Female Sex Representation Female (finding) 1denies use. Patient Care team information Care Team Personnel Name: Steve Nair Position: FT Polysomnographic Tech - Self Assign Member Role: Exchange Teller Name: Jessie Max Position: FT Ambulatory - Primary Care - LOC Member Role: Primary Care Physician Address: [address] [place] [address]- Telecom: Care Team Related Persons Name: Katherine Hancock Insurance Providers Guarantor name: ADRIAN Health Plan Information #: 1 Payer: NA Payer Identifier: [id number] Member Number: [id number] Group Number: [id number] Subscriber Identifier: [id number] Relationship to Subscriber: Self Coverage Type: PRIVATE HEALTH INSURANCE Coverage Verification Date: NA Telecom: NA Address: Health Plan Information #: 2 Payer: NA Payer Identifier: [id number] Member Number: [id number] Group Number: [id number] Subscriber Identifier: [id number] Relationship to Subscriber: Self Coverage Type: MEDICARE Coverage Verification Date: 24 Telecom: Address:
--- OUTSIDE RECORDS SUMMARY | 2024-10-14 23:59 | XMS_ITS | Continuity of Care Document ---
Author Organization [facility] Address Unknown Care Team Providers Care Early Childhood Education Instructor Name Role Phone Jessie Carlos Primary Care Physician [phone] Encounter [facility] [id number] Date(s): 10/14/24 - 10/14/24 [facility] [address] [place] [address]- Discharge Disposition: Home (Routine DC) Attending Physician: Jessie Max Admitting Physician: Jessie Max Encounter Type: Lab Drop off Allergies, Adverse Reactions, Alerts No Known Allergies Assessment and Plan Future Appointments Appointment Date:10/21/2024 02:00:00 PM Scheduled Provider:Alfonso DUDLEY MD [facility] App[facility] Type: Florentin Aponte Appointment Date:04/13/2025 09:30:00 AM Scheduled Provider: Location:[facility] Appointment Type: Medicare Wellness Subsequent Appointment Date:04/13/2025 10:20:00 AM Scheduled Provider:Jessie Max Location:[facility] Appointment Type: Open Diagnostic Tests Pending * T3 Free 10/14/24 Immunizations Given and Recorded Vaccine Date Status [...] day(s), # 90 tab(s), Refills(s) 3, Pharmacy: [facility] #[id number], 158, cm, 10/01/23 15:37:00 EDT, Height/Length Dosing, 84, kg, 10/01/23 15:37:00 EDT, Weight Dosing Start Date: 12/06/23 Stop Date: 11/30/24 Status: Ordered Quantity: 90.0 Unit: tab(s) Repeat number: 4 calcium (as carbonate) 600 mg oral tablet 1,200 mg = 2 tab(s), Oral, Daily, X 90 day(s), # 180 tab(s), Refills(s) 3, [facility]acy: [facility] #[id number], 158, cm, 04/24/24 14:32:00 EST, Height/Length Dosing, 88.3, kg, 04/24/24 14:32:00 EST, Weight Dosing Start Date: 05/01/24 Stop Date: 04/26/25 Status: Ordered Quantity: 180.0 Unit: tab(s) Repeat number: 4 Vitamin D 50,000 intl units (1.25 mg) oral capsule 50,000 International_Unit = 1 cap(s), Oral, qWeek, # 12 cap(s), Refills(s) 4, Pharmacy: [facility] #[id number], 158, cm, 04/24/24 14:32:00 EST, Height/Length Dosing, [...] Stomach 5 Completed 1right 2obstruction 3bilateral 2005 70185, right 90704 Results Laboratory List Name Date Comprehensive Metabolic Panel (CMP) 10/14 Free T4 (T4 Free) 10/14/24 Thyroid Stimulating Hormone (TSH) 5 Vitamin D 25 Hydroxy 10/14/24 eGFR 10/14/24 Most recent to oldest [Reference Range]: 1 A/G Ratio [1.1-2.2] 1.8 (10/14/24 9:02 AM) BUN/Creat Ratio [10-20] 27 *HI* (10/14/24 9:02 AM) AGAP [6-16 mEq/L] 9 mEq/L (10/14/24 9:02 AM) Albumin Lvl [3.3-5.0 gm/dL] 4.2 gm/dL (10/14/24 9:02 AM) Alk Phos [21-98 Int._Unit/L] 87 Int._Uni t/L (10/14/24 9:02 AM) ALT [6-46 Int._Unit/L] 23 Int._Unit/L (10/14/24 9:02 AM) AST [5-43 Int._Unit/L] 26 Int._Unit/L (10/14/24 9:02 AM) Bili Total [0.0-1.1 mg/dL] 0.7 mg/dL (10/14/24 9:02 AM) CO2 [21-31 mmol/L] 28 mmol/L (10/14/24 9:02 AM) Glucose Lvl [55-199 mg/dL] 92 mg/dL (10/14/24 9:02 AM) Sodium Lvl [135-145 mmol/L] 139 mmol/L (10/14/24 9:02 AM) T4 Free [0.58-1.64 ng/dL] 0.87 ng/dL (10/14/24 9:02 AM) Total Protein [6.0-7.8 gm/dL] 6.5 gm/dL (10/14/24 9:02 AM) TSH [0.34-5.60 mcIU/mL] 0.08 mcIU/mL *LOW* (10/14/24 9:02 AM) BUN [5-21 mg/dL] 16 mg/dL (10/14/24 9:02 AM) Calcium Lvl [8.9-11.1 mg/dL] 9.8 mg/dL (10/14/24 9:02 AM) Potassium Lvl [3.5-5.3 mmol/L] 4.2 mmol/ L (10/14/24 9:02 AM) Chloride [101-111 mmol/L] 106 mmol/L (10/14/24 9:02 AM) eGFR [>=59 mL/min/1.73 m2] 89 mL/min/1.7 3 m2 (10/14/24 9:02 AM) Globulin [1.4-4.0 gm/dL] 2.3 gm/dL (10/14/24 9:02 AM) Creatinine [0.5-1.3 mg/dL] 0.6 mg/dL (10/14/24 9:02 AM) Vitamin D 25 Hydroxy [30.0-100.0 ng/mL] 42.9 ng/mL (10/14/24 9:02 AM) Social History Social History Type Response Smoking Status Never (less than 100 in lifetime);Never 1 entered on: 10/14/24 Sex Female Sex Representation Female (finding) 1denies use. Patient Care team information Care Team Personnel Name: Steve Nair Position: FT File Drawer Finisher - Self Assign Member Role: Aircraft General Repair Mechanic Name: Jessie Max Position: FT Ambulatory - Primary Care - LOC Member Role: Primary Care Physician Address: [address] [place] [address]- Telecom: Care Team Related Persons Name: Katherine Hancock Insurance Providers Guarantor name: weendy Plan Information #: 1 Payer: NA Payer Identifier: [id number] Member Number: [id number] Group Number: [id number] Subscriber Identifier: [id number] Relationship to Subscriber: Self Coverage Type: PRIVATE HEALTH INSURANCE Coverage Verification Date: NA Telecom: NA Address: [facility] Information #: 2 Payer: NA Payer Identifier: [id number] Member Number: [id number] Group Number: [id number] Subscriber Identifier: [id number] Relationship to Subscriber: Self Coverage Type: MEDICARE Coverage Verification Date: NA Telecom: NA Address:
--- NOTE | 2024-10-20 | US_ITS ---
The [address] [address] Patient Name: MICHEAL BRICE MRN: [id number] date: 1940 Sex: F Assigned Patient Location: US Current Patient Location: [place] Accession/Order Number: [id number] Exam Date: 10/20/2024 12:51 Report Date: 10/20/2024 12:56 At the request of: CAMILA WILBURN Procedure: US thyroid Thyroid ultrasound Reason for exam: Swelling, hyperthyroid Comparison: Thyroid ultrasound 02/15/2021 Technique: Grayscale and color Doppler images of the thyroid gland were obtained. Findings: Right lobe measures 4.8 x 1.6 x 1.1 cm. Left lobe measures 5.7 x 3.4 x 2.9 cm. Isthmus measures 2.6 mm. Multiple thyroid nodules are present largest involving the inferior pole of the left lobe measuring 39 x 33 x 32 mm which appears hypoechoic with microcalcifications noted. Technologist reports a previously biopsy of the left nodule in 2020. US/US thyroid Impression: Evidence of multinodular goiter with a dominant hypoechoic nodule involving the inferior pole of the left lobe measuring 39 x 33 x 32 mm. This nodule has minimally changed since 2020. Correlation with biopsy report is recommended. Impression dictated by: Jason Sánchez Jr., D.O. 10/20/2024 12:56 PM Dictation Location: [place] [address] Electronically authenticated by: [id number] Y Date: 10/20/2024 12:56
--- OUTSIDE RECORDS SUMMARY | 2024-10-20 11:02 | XMS_ITS | Clinical Summary ---
Author Organization [facility] Address [address] [place] [address] Care Team Providers Care Carburizer Name Role Phone Jessie Carlos AIR TUCKER Primary Care Provider [phone] Allergies No known active allergies Medications cyanocobalamin, vitamin B-12, 1,000 mcg/mL Drop Take 1 tablet by mouth daily . Active vitamin E, dl, acetate, 22.5 mg (50 unit)/mL Drop Take 2 capsules by mouth daily . Active omega-3 acid ethyl esters (LOVAZA) 1 gram capsule Take 2 (two) capsules (2 g total) by mouth 2 (two) times a day . Active ergocalciferol (ERGOCALCIFEROL ) 1,250 mcg (50,000 unit) capsule Take 1 (one) capsule (50,000 Units total) by mouth once a week . 05/01/2024 Active calcium carbonate (OS-MARYCARMEN) 600 mg calcium (1,500 mg) tablet Take 2 (two) tablets (1,200 mg total) by mouth daily . 05/01/2024 Active amLODIPine (NORVASC) 5 MG tablet Take by mouth . 12/13/2022 12/01/19 25 Active Active Problems No known active problems Social History Tobacco Use Types Packs/Day Years Used Date Smoking Tobacco: Never Assessed Comments Unknown Sex and Gender Information Value Date Recorded Sex Assigned at Not on file Legal Sex Female 7:28 PM EDT Gender Identity Not on file Sexual Orientation Not on file Last Filed Vital Signs Vital Sign Reading Time Taken Comments Blood Pressure - - Pulse - - Temperature - - Respiratory Rate - - Oxygen Saturation - - Inhaled Oxygen Concentration - - Weight 93 kg (205 lb) 05/09/2022 8:07 AM EST Height 157.5 cm (5' 2 ) 05/09/2022 8:07 AM EST Body Mass Index 37.49 05/09/2022 8:07 AM EST Plan of Treatment Health Maintenance Due Date Last Done Comments Dexa Scan 1940 Medicare Wellness Visit 1945 Depression Screening/Follow-Up (PHQ-2/9) 1954 Pneumococcal Vaccine: Age 50 + (1 of 1 - PCV) 1992 Zoster Vaccines (1 of 2) 1992 Falls Risk Assessment 2007 Respiratory Syncytial Virus Immunization: Risk, 60-74 Risk, or 75+ (1 - 1-dose 75+ series) 2017 Tetanus: Every 10yrs 08/08/2023 08/07/2013, 03/19/19 05 COVID-19 Vaccine ( - 2023- season) 2023 Influenza Vaccine (#1) 2024 Insurance [employer] OTHER AFTER MEDICARE MEDICARE PART A & B Member Subscriber Plan / Payer (Ef fective 2007-Present) Name:Elisa Wills Member ID:[id number] Relation to Subscriber:Self Name:Elisa Wills Subscriber ID:[id number] Payer ID:Not on file Group ID:Not on file Type:Not on file Address: [employer] [id number] PART A CLAIMS [address] [address] [place] [address] Care Teams Carburizer Relationship Specialty Start Date End Date Jessie Carlos, DEDE [address] [place] [address] PCP - General Nurse Practitioner 06/13/24
--- OUTSIDE RECORDS SUMMARY | 2024-10-20 11:02 | XMS_ITS | Encounter Summary ---
Author Organization [facility] Address [address] [place] [address] Care Team Providers Care Clearance Representative Name Role Phone No, Physician Primary Care Provider Jessie Raman CNP Primary Care Provider [phone] Encounter Details Date Type Department Care Team (Late st Contact Info) Description 04/18/2022 Orders Only [facility] Radiology External Films [address] [place], [place] [id number] Social History Tobacco Use Types Packs/Day Years Used Date Smoking Tobacco: Never Assessed Comments Unknown Sex and Gender Information Value Date Recorded Sex Assigned at Not on file Legal Sex Female 7:28 PM EDT Gender Identity Not on file Sexual Orientation Not on file COVID-19 Exposure Response Date Recorded In the last 10 days, have yo u been in contact with someone who was confirmed or suspected to have Coronavirus/COVID-19? No / Unsure 04/18/2022 7:58 AM EST documented as of this encounter Plan of Treatment Not on file documented as of this encounter Procedures Procedure Name Priority Date/Time Associated Diagnosis Comments XR COMPARISON IMPORT 03/29/2022 12:00 AM EST documented in this encounter Results * XR Comparison Import (03/29/2022 12:00 AM EST) Anatomical Region Laterality Modality Computed Radiogr aphy 04/18/2022 1:32 PM EST Narrative 04/18/2022 1:32 PM EST This is a non-reportable study used for image storage. It has been automatically finalized and does not contain a result. Procedure Note Transcribed, External - 04/18/2022 This is a non-reportable study used for image storage. It has beenautomatically finalized and does not contain a result. us Radiologist Generic IMG NON REPORTABLES Final Re sult documented in this encounter Visit Diagnoses Not on filedocumented in this encounter Care Teams Clearance Representative Relationship Specialty Start Date End Date No, Physician [facility] PCP - General 04/18/22 06/12/24 Jessie Carlos, DRAINAGE INSPECTOR [address] [place] [address] PCP - General Nurse Practitioner 06/13/24 documented as of this encounter
--- OUTSIDE RECORDS SUMMARY | 2024-10-20 11:02 | XMS_ITS | Clinical Summary ---
Author Organization [facility] Address [address] [place] [address] Care Team Providers Care Section Forest Fire Warden Name Role Phone Willie Cardona MD Primary Care Provider [phone] Allergies No known active allergies Medications cyanocobalamin, vitamin B-12, 1,000 mcg/mL drops Take 1 tablet by mouth in the morning. Active Family History Medical History Relation Name Comments Coronary artery disease Mother heart valve disease Mother Relation Name Status Comments Mother Social History Tobacco Use Types Packs/Day Years Used Date Smoking Tobacco: Never Smokeless Tobacco: Never Tobacco Cessation:Counseling Given: Not Answered Alcohol Use Standard Drinks/Week Comments Never 0 (1 standard drink = 0.6 oz pur e alcohol) [place] Safety & Environment Answer Date Rec orded Fear of Current or Ex-Partner Not on file Emotionally Abused Not on file 05/11/2023 Physically Abused Not on file 05/11/2023 Sexually Abused Not on file 05/11/2023 Physically or Sexually Abused Not on file Comments Unknown Sex and Gender Information Value Date Recorded Sex Assigned at Not on file Legal Sex Female 12:50 PM EDT Gender Identity Not on file Sexual Orientation Not on file Last Filed Vital Signs Vital Sign Reading Time Taken Comments Blood Pressure 142/84 11/08/2022 10:53 AM EDT Pulse 56 11/08/2022 10:53 AM EDT Temperature - - Respiratory Rate - - Oxygen Saturation 97% 11/08/2022 10:53 AM EDT Inhaled Oxygen Concentration - - Weight 89.4 kg (197 lb) 11/08/2022 10:53 AM EDT Height 157.5 cm (5' 2 ) 11/08/2022 10:53 AM EDT Body Mass Index 36.03 11/08/2022 10:53 AM EDT Plan of Treatment Health Maintenance Due Date Last Done Comments Medicare Annual Wellness (AWV) 1940 Depression Screening 1954 Pneumococcal Vaccine: 50+ Years (1 of 1 - PCV) 1992 Zoster Vaccines (1 of 2) 1992 Fall Risk Screening 2007 Adult Tetanus 08/08/2023 08/07/2013, 03/19/2004 COVID-19 Vaccine (1 - 2023-2 5 season) 2023 Influenza Vaccine (#1) 2024 HIB Vaccines Aged Out No longer eligi ble based on patient's age to complete this topic HPV Vaccines Aged Out No longer eligi ble based on patient's age to complete this topic IPV Vaccines Aged Out No longer eligi ble based on patient's age to complete this topic Meningococcal B Vaccine Aged Out No l onger eligible based on patient's age to complete this topic Meningococcal Vaccine Aged Out No janel elena eligible based on patient's age to complete this topic Rotavirus Vaccines Aged Out No longer eligible based on patient's age to complete this topic Insurance [employer] MEDICARE ADVANTAGE Care Teams Section Forest Fire Warden Relationship Specialty Start Date End Date Willie Cardona MD [address] [place] [address] PCP - General Family Medicine 11/08/22
--- OUTSIDE RECORDS SUMMARY | 2024-10-20 11:02 | XMS_ITS | Encounter Summary ---
Author Organization [facility] Address [address] [place] [address] Care Team Providers Care Hospital Attendant Name Role Phone No, Physician Primary Care Provider Jessie Raman CNP Primary Care Provider [phone] Encounter Details Date Type Department Care Team (Late st Contact Info) Description 04/18/2022 Orders Only [facility] Radiology External Films [address] [place], [place] [id number] Social History Tobacco Use Types Packs/Day Years [...] Region Laterality Modality Computed Radiogr aphy 04/18/2022 1:28 PM EST Narrative 04/18/2022 1:28 PM EST This is a non-reportable study [...] on filedocumented in this encounter Care Teams Hospital Attendant Relationship Specialty Start Date End Date No, Physician [facility] PCP - General 04/18/22 06/12/24 Jessie Carlos, CANOE INSPECTOR FINAL [address] [place] [address] PCP - General Nurse Practitioner 06/13/24 documented as of this encounter
--- OUTSIDE RECORDS SUMMARY | 2024-10-20 11:02 | XMS_ITS | Encounter Summary ---
Author Organization [facility] Address [address] [place] [address] Care Team Providers Care Heavy Machinery Assembler Name Role Phone Jessie Carlos CNP Primary Care Provider [phone] Encounter Details Date Type Department Care Team (Late st Contact Info) Description 06/13/2024 Orders Only [facility] Radiology External Films [address] [place] [address] Social History Tobacco Use Types Packs/Day Years Used Date Smoking Tobacco: Never Assessed Comments Unknown Sex and Gender Information Value Date Recorded Sex Assigned at Not on file Legal Sex Female 7:28 PM EDT Gender Identity Not on file Sexual Orientation Not on file documented as of this encounter Plan of Treatment Not on file documented as of this encounter Procedures Procedure Name Priority Date/Time Associated Diagnosis Comments XR COMPARISON IMPORT 04/25/2024 12:00 AM EST documented in this encounter Results * XR Comparison Import (04/25/2024 12:00 AM EST) Anatomical Region Laterality Modality Computed Radiogr aphy 06/13/2024 10:0 9 AM EDT Narrative 06/13/2024 10:09 AM EDT This is a non-reportable study used for image storage. It has been automatically finalized and does not contain a result. Procedure Note Transcribed, External - 06/13/2024 This is a non-reportable study used for image storage. It has beenautomatically finalized and does not contain a result. us Radiologist Generic IMG NON REPORTABLES Final Re sult documented in this encounter Visit Diagnoses Not on filedocumented in this encounter Care Teams Heavy Machinery Assembler Relationship Specialty Start Date End Date Jessie Carlos CNP [address] [place] [address] PCP - General Nurse Practitioner 06/13/24 documented as of this encounter
--- OUTSIDE RECORDS SUMMARY | 2024-10-20 11:03 | XMS_ITS | Clinical Summary ---
Author Organization [facility] Address [address] [place] [address] Care Team Providers Care Bliss Press Operator Name Role Phone Unallocated, Noms Provider Primary Care Provi cong Social History Tobacco Use Types Packs/Day Years Used Date Smoking Tobacco: Never Assessed Comments Unknown Sex and Gender Information Value Date Recorded Sex Assigned at Not on file Legal Sex Female 8:24 PM EDT Gender Identity Not on file Sexual Orientation Not on file Last Filed Vital Signs Vital Sign Reading Time Taken Comments Blood Pressure 112/76 03/31/2019 12:00 PM EST Pulse - - Temperature - - Respiratory Rate - - Oxygen Saturation - - Inhaled Oxygen Concentration - - Weight 91.6 kg (202 lb) 03/31/2019 12:00 PM EST Height 157.5 cm (5' 2 ) 03/31/2019 12:00 PM EST Body Mass Index 36.95 03/31/2019 12:00 PM EST Plan of Treatment Health Maintenance Due Date Last Done Comments Medicare Annual Wellness (AWV) 1940 Pneumococcal Vaccine: 65+ Years (1 of 1 - PCV) 992 Influenza Vaccine (#1) 2024 Insurance [facility] MEDICARE ADVANTAGE Advance Directives Documents on File Type Date Recorded Patient Power Transformer Assembler Expl anation Advance Directives and Living Will 01/27/2019 2015-06-14 Power of Tube Fitter Advance Directives and Living Will 01/27/2019 2015-06-14 Living Wi Care Teams Bliss Press Operator Relationship Specialty Start Date End Date Unallocated, Noms Em, [address] [place] [address] PCP - General Family Medicine 07/19/23
--- OUTSIDE RECORDS SUMMARY | 2024-10-20 11:03 | XMS_ITS | Clinical Summary ---
Author Organization [employer] tem Address [id number] [address] [place] [address] Care Team Providers Care Margin Trimmer Name Role Phone No Pcp, No Pcp Primary Care Provider Unavailabl e Allergies No known active allergies Medications cyanocobalamin, vitamin B-12, (VITAMIN B-12 ORAL) Take 1 tablet by mouth daily. Active vitamin E acetate (VITAMIN E ORAL) Take 2 capsules by mouth daily. Active Active Problems No known active problems Family History Medical History Relation Name Comments Prostate cancer Father Breast cancer Maternal Aunt Anesthesia problems Neg Hx Cervical cancer Neg Hx Colon cancer Neg Hx Lung cancer Neg Hx Ovarian cancer Neg Hx Relation Name Status Comments Father Maternal Aunt Social History Tobacco Use Types Packs/Day Years Used Date Smoking Tobacco: Never Smokeless Tobacco: Never Alcohol Use Standard Drinks/Week Comments No 0 (1 standard drink = 0.6 oz pur e alcohol) Childcare Answer Date Recorded Childcare Unknown 08/28/2018 Employment Answer Date Recorded Employment Unknown 08/28/2018 Purpose - Life Answer Date Recorded Purpose and direction in life Unknown Comments No Sex and Gender Information Value Date Recorded Sex Assigned at Not on file Legal Sex Female 11:24 AM EDT Gender Identity Not on file Sexual Orientation Not on file Last Filed Vital Signs Vital Sign Reading Time Taken Comments Blood Pressure 145/72 11/01/2017 9:38 AM EDT Pulse 52 11/01/2017 9:38 AM EDT Temperature 36.4 C (97.5 F) 11/01/2017 9:38 AM EDT Respiratory Rate 16 11/01/2017 9:38 AM EDT Oxygen Saturation 98% 11/01/2017 9:38 AM EDT Inhaled Oxygen Concentration - - Weight 88 kg (194 lb 0.1 oz) 11/01/2017 9:38 AM EDT Height 157.5 cm (5' 2 ) 11/01/2017 9:38 AM EDT Body Mass Index 35.48 11/01/2017 9:38 AM EDT Plan of Treatment Health Maintenance Due Date Last Done Comments Depression Screening 1954 Tobacco Screening 1954 DTaP,Tdap and Td Vaccines (1 - Tdap) 1961 Zoster (Shingles) Vaccine (1 of 2) 1992 Fall Risk Screening 2007 Influenza Vaccine 11/17/2024 Medical Devices Not on file Insurance MEDICARE Care Teams Margin Trimmer Relationship Specialty Start Date End Date No Pcp, [place] [address] PCP - General Family Medicine 11/01/17
== END 2024-10-20 10:58 | disposition home or self-care (01) ==
LOC: US 11:00
PROVIDERS: PCP Nurse Practitioner; Visit Provider Nurse Practitioner
DX: E05.90 Thyrotoxicosis, unspecified without thyrotoxic crisis or storm (principal); R61 Generalized hyperhidrosis; E04.2 Nontoxic multinodular goiter
CPT/HCPCS: 76536

== ENCOUNTER 2024-11-13 10:38 | Outpatient (OUT) | payer MEDICARE, OTHER, SELFPAY ==
--- OUTSIDE RECORDS SUMMARY | 2024-10-29 23:59 | XMS_ITS | Continuity of Care Document ---
Author Organization [facility] Address Unknown Care Team Providers Care Calciner Operator Name Role Phone Jessie Carlos Primary Care Physician Encounter _[facility] [id number] Date(s): 10/29/24 - 10/29/[address] [place], [place] [address] Discharge Disposition: Home (Routine DC) Attending Physician: KIA SAMUEL CNP Admitting Physician: KIA SAMUEL CNP Referring Physician: KIA SAMUEL CNP Encounter Type: Outpatient Allergies, Adverse Reactions, Alerts No Known Allergies Assessment and Plan Future Appointments Appointment Date:04/13/2025 09:30:00 AM Scheduled Provider: Location:[facility] Appointment Type: Medicare Wellness Subsequent Appointment Date:04/13/2025 10:20:00 AM Scheduled Provider:Jessie Max Location:[facility] Appointment Type: Open Future Scheduled Tests Radiology* CT Abdomen/Pelvis w/contrast (enterography) 10/29/24 Immunizations Given and Recorded Vaccine Date Status [...] day(s), # 90 tab(s), Refills(s) 3, Pharmacy: [id number], 158, cm, 10/01/23 15:37:00 EDT, Height/Length Dosing, 84, kg, 10/01/23 15:37:00 EDT, Weight Dosing Start Date: 12/06/23 Stop Date: 11/30/24 Status: Ordered Quantity: 90.0 Unit: tab(s) Repeat number: 4 calcium (as carbonate) 600 mg oral tablet 1,200 mg = 2 tab(s), Oral, Daily, X 90 day(s), # 180 tab(s), Refills(s) 3, Pharmacy: [facility] #[id number], 158, cm, 04/24/24 14:32:00 EST, Height/Length Dosing, 88.3, kg, 04/24/24 14:32:00 EST, Weight Dosing Start Date: 05/01/24 Stop Date: 04/26/25 Status: Ordered Quantity: 180.0 Unit: tab(s) Repeat number: 4 Vitamin D 50,000 intl units (1.25 mg) oral capsule 50,000 International_Unit = 1 cap(s), Oral, qWeek, # 12 cap(s), Refills(s) 4, Pharmacy: [facility] #[id number], 158, cm, 04/24/24 14:32:00 EST, Height/Length Dosing, 88.3, kg, 04/24/24 14:32:00 EST, Weight Dosing Start Date: 05/01/24 Status: Ordered Quantity: 12.0 Unit: cap(s) Repeat number: 5 Problem List Condition Confirmation Course Effective Dates Status Health Status Informant BMI 33.0-33.9,adult Confirmed Active Skin texture changes Confirmed Active Excessive sweating Confirmed Active Flank pain Confirmed Active Ganglion cyst of dorsum of right wrist Confirmed Active Wart of hand Confirmed Active S/P cholecystectomy Confirmed Active Hypercholesteremia Confirmed Active Hypertension Confirmed Active Hyperthyroidism Confirmed Active Lipoma of back Confirmed Active Lipoma of upper arm Confirmed Active Lipoma of arm Confirmed Active Hair thinning Confirmed Active Mass of soft tissue of upper arm Confirmed Active Nonsmoker Confirmed Active Obesity (BMI 30.0-34.9) Confirmed Active Obesity due to excess calories Confirmed Active Procedures Procedure Date Related Diagnosis Body Site Status Cholecystectomy 2023 Completed Amputation of thumb Compl eted Arthroplasty of right knee Completed Cataract 1 Completed Closed fracture of ankle Completed Excision of lesion of skin Completed Lysis of adhesions Comple mya Repair of incisional hernia Completed Stomach 2 Completed 1bilateral 2005 Social History Social History Type Response Smoking Status Never (less than 100 in lifetime);Never; Concerns about tobacco use in household: No; Smoking Cessation Yes 1 entered on: 10/22/24 Sex Female Sex Representation Female (finding) 1denies use. Patient Care team information Care Team Personnel Name: Steve Nair Position: FT Watch Guard Gate - Self Assign Member Role: Hot Blast Worker Name: Jessie Max Position: FT Ambulatory - Primary Care - LOC Member Role: Primary Care Physician [address]: [address] [place] [address]- Telecom: Care Team Related Persons Name: KATHERINE HANCOCK Name: KATHERINE HANCOCK Name: KATHERINE HANCOCK Name: KATHERINE HANCOCK Name: KATHERINE HANCOCK Insurance Providers Guarantor name: Health Plan Information #: 1 Payer: Payer Identifier: [id number] Member Number: [id number] Group Number: [id number] Subscriber Identifier: [id number] Relationship to Subscriber: Self Coverage Type: MEDICARE Coverage Verification Date: 24 Telecom: Address: Health Plan Information #: 2 Payer: Payer Identifier: [id number] Member Number: [id number] Group Number: [id number] Subscriber Identifier: [id number] Relationship to Subscriber: Self Coverage Type: PRIVATE HEALTH INSURANCE Coverage Verification Date: Telecom: Address:
--- OUTSIDE RECORDS SUMMARY | 2024-11-11 23:59 | XMS_ITS | Continuity of Care Document ---
Author Organization [facility] Address Unknown Care Team Providers Care Finish Mill Operator Name Role Phone Jessie Carlos Primary Care Physician Encounter _[facility] [id number] Date(s): 11/11/24 - 11/11/[address] [place] [address]- Discharge Disposition: Home (Routine DC) Attending Physician: KIA SAMUEL CNP Admitting Physician: KIA SAMUEL CNP Referring Physician: KIA SAMUEL CNP Encounter Type: Outpatient Allergies, Adverse Reactions, Alerts No Known Allergies Assessment and Plan Future Appointments Appointment Date:04/13/2025 09:30:00 AM Scheduled Provider: Location:[facility] Appointment Type: Medicare Wellness Subsequent Appointment Date:04/13/2025 10:20:00 AM Scheduled Provider:Jessie Max Location:[facility] Appointment Type: Open Immunizations Given and [...] day(s), # 90 tab(s), Refills(s) 3, Pharmacy: [id number], 158, cm, 10/01/23 15:37:00 EDT, Height/Length Dosing, 84, kg, 10/01/23 15:37:00 EDT, Weight Dosing Start Date: 12/06/23 Stop Date: 11/30/24 Status: Ordered Quantity: 90.0 Unit: tab(s) Repeat number: 4 calcium (as carbonate) 600 mg oral tablet 1,200 mg = 2 tab(s), Oral, Daily, X 90 day(s), # 180 tab(s), Refills(s) 3, [id number], 158, cm, 04/24/24 14:32:00 EST, Height/Length Dosing, 88.3, kg, 04/24/24 14:32:00 EST, Weight Dosing Start Date: 05/01/24 Stop Date: 04/26/25 Status: Ordered Quantity: 180.0 Unit: tab(s) Repeat number: 4 Vitamin D 50,000 intl units (1.25 mg) oral capsule 50,000 International_Unit = 1 cap(s), Oral, qWeek, # 12 cap(s), Refills(s) 4, Pharmacy: [facility] #[id number], 158, cm, 04/24/24 14:32:00 EST, Height/Length Dosing, [...] of incisional hernia Completed Stomach 2 Completed 1b2005 Social History Social History Type Response Smoking Status Never (less than 100 in lifetime);Never; Concerns about tobacco use in household: No; Smoking Cessation Yes 1 entered on: 10/22/24 Sex Female Sex Representation Female (finding) 1denies use. Patient Care team information Care Team Personnel Name: Steve Nair Position: FT Club Former - Self Assign Member Role: Mule Tender Name: Jessie Max Position: FT Ambulatory - Primary Care - LOC Member Role: Primary Care Physician Address: [address] [place] [address]- Telecom: Care Team Related Persons Name: KATHERINE HANCOCK Name: KATHERINE HANCOCK Name: KATHERINE HANCOCK Name: KATHERINE HANCOCK Name: KATHERINE HANCOCK Name: KATHERINE HANCOCK Name: KATHERINE HANCOCK Insurance Providers Guarantor name: Health Plan Information #: 1 Payer: MEDICARE Payer Identifier: [id number] Member Number: [id number] Group Number: [id number] Subscriber Identifier: [id number] Relationship to Subscriber: Self Coverage Type: MEDICARE Coverage Verification Date: 24 Telecom: [phone] Address: [address] Health Plan Information #: 2 Payer: CIGNA Payer Identifier: [id number] Member Number: [id number] Group Number: [id number] Subscriber Identifier: [id number] Relationship to Subscriber: Self Coverage Type: PRIVATE HEALTH INSURANCE Coverage Verification Date: 24 Telecom: [facility] Address: [address] [address] [place] [address]
--- OUTSIDE RECORDS SUMMARY | 2024-11-13 10:39 | XMS_ITS | Encounter Summary ---
Author Organization [facility] Address [address] [place] [address] Care Team Providers Care Associate Of Science In Nursing Name Role Phone Jessie Carlos CNP Primary Care Provider [phone] [phone] Encounter Details Date Type Department Care Team (Late st Contact Info) Description 06/13/2024 Orders Only [facility] Radiology External Films [address] [place] [address] Social History Tobacco Use Types [...] Procedure Name Priority Date/Time Associated Diagnosis Comments US COMPARISON IMPORT 04/28/2024 12:00 AM EST documented in this encounter Results * US Comparison Import (04/28/2024 12:00 AM EST) Anatomical Region Laterality Modality Ultrasound 06/13/2024 10:0 8 AM EDT Narrative 06/13/2024 10:08 AM EDT This is a non-reportable study [...] on filedocumented in this encounter Care Teams Associate Of Science In Nursing Relationship Specialty Start Date End Date Jessie Carlos CNP [address] [place] [address] PCP - General Nurse Practitioner 06/13/24 documented as of this encounter
--- OUTSIDE RECORDS SUMMARY | 2024-11-13 10:39 | XMS_ITS | Encounter Summary ---
Author Organization [facility] Address [address] [place] [address] Care Team Providers Care Distribution Sales Representative Name Role Phone Jessie Carlos TRAINING PROGRAM DEVELOPER Unavailable Encounter Details Date Type Department Care Team (Late st Contact Info) Description 10/22/2024 Orders Only [facility] [address] [place] [address] Jessie Carlos, STEFANY [address] [place] [address] Social History Tobacco Use Types Packs/Day Years Used Date Smoking Tobacco: Never Assessed Comments Unknown Sex and Gender Information Value Date Recorded Sex Assigned at Not on file Legal Sex Female 8:24 PM EDT Gender Identity Not on file Sexual Orientation Not on file documented as of this encounter Plan of Treatment Upcoming Encounters Date Type Department Care Team (Late st Contact Info) Description 12/04/2024 9:50 AM EDT Office Visit [facility] [address] [place] [id number] Gaetano Rosen MD [address] [place] [address] 12/09/2024 9:50 AM EDT Office Visit [facility] [address] [place] [address] Kylie Rice MD [address] [place], [place] [id number] documented as of this encounter Procedures Procedure Name Priority Date/Time Associated Diagnosis Comments US THYROID Routine 10/22/2024 3:47 PM EDT documented in this encounter Results * US thyroid (10/22/2024 3:47 PM EDT) Anatomical Region Laterality Modality Head, Neck Ultrasound us Jessie Carlos NP IMG US PROCEDURES Edited Result - Final documented in this encounter Visit Diagnoses Not on filedocumented in this encounter Care Teams Distribution Sales Representative Relationship Specialty Start Date End Date Jessie Carlos NP [address] [place] [address] Referring Physician Family Medicine 10/28/24 documented as of this encounter
--- OUTSIDE RECORDS SUMMARY | 2024-11-13 10:40 | XMS_ITS | Encounter Summary ---
Author Organization [facility] Address [address] [place] [address] Care Team Providers Care Textiles Printer Name Role Phone No, Physician Primary Care Provider Jessie Raman CNP Primary Care Provider [phone] Encounter Details Date Type Department Care Team (Late st Contact Info) Description 04/18/2022 Orders Only [facility] Radiology External Films [address] [place], [place] [id number] Social History Tobacco Use Types Packs/Day Years [...] on filedocumented in this encounter Care Teams Textiles Printer Relationship Specialty Start Date End Date No, Physician [facility] PCP - General 04/18/22 06/12/24 Jessie Carlos, INTEGRATION SPECIALIST [address] [place] [address] PCP - General Nurse Practitioner 06/13/24 documented as of this encounter
--- OUTSIDE RECORDS SUMMARY | 2024-11-13 10:40 | XMS_ITS | Clinical Summary ---
Author Organization [facility] Address [address] [place] [address] Care Team Providers Care Proposal Manager Writer Name Role Phone Jessie Carlos HOUSEKEEPER MANAGER Primary Care Provider [phone] Allergies No known active allergies Medications cyanocobalamin, [...] Payer (Ef fective 2007-Present) Name:Elisa Wills Member ID:[id number] Relation to Subscriber:Self Name:Elisa Wills Subscriber ID:[id number] Payer ID:Not on file Group ID:Not on file Type:Not on file Address: [address] [address] [place] [address] Care Teams Proposal Manager Writer Relationship Specialty Start Date End Date Terrance, Jessie Zoey, DEDE [address] [place] [address] PCP - General Nurse Practitioner 06/13/24
--- OUTSIDE RECORDS SUMMARY | 2024-11-13 10:40 | XMS_ITS | Clinical Summary ---
Author Organization [facility] Address [address] [facility] [place] [address] Care Team Providers Care Homeworker Name Role Phone Jessie Carlos POWDER MONKEY Unavailable Allergies No known active allergies Medications amLODIPine (Norvasc) 5 MG tablet Take by mouth 12/13/2022 12/01/19 25 Active calcium carbonate 1500 (600 Ca) MG tablet Take 1,200 mg by mouth in the morning. 05/01/2024 Active carboxymethylcel lulose (Refresh Liquigel) 1 % ophthalmic solution dropperette 07/28/2024 Active Cyanocobalamin 1000 MCG/ML liquid Take 1 tablet by mouth in the morning. Active ergocalciferol (Vitamin D2) 1.25 MG (57927 UT) capsule Take 1 capsule by mouth once a week Active lactobacillus (Culturelle) capsule Take 1 capsule by mouth in the morning and 1 capsule in the evening. Take with meals. 06/22/2023 Active omega-3 acid ethyl esters (Lovaza) 1 g capsule Take 2 g by mouth in the morning and 2 g in the evening. Active pyridoxine (Vitamin B-6) 25 MG tablet take 1 tab po qd/bid Active Active Problems Problem Noted Date Diagnosed Date Acute pain of left shoulder 10/22/2024 Adult BMI 37.0-37.9 kg/sq m 10/22/2024 History of paranoid disorder 10/22/2024 Memory impairment 10/22/2024 Mixed hyperlipidemia 10/22/2024 Post-menopause bleeding 10/22/2024 Encounters Date Type Department Care Team Description 10/28/2024 8:40 AM EDT Office Visit [facility] [address] [place] [address] Kylie Rice MD Thyroid mass (Primary Dx) 10/28/2024 Orders Only [facility] [place] [facility] [address] [place] [address] Shaikh Gross MD 10/28/2024 Bamboo flowsheet [facility] [place] [facility] [address] [place] [address] Kylie Rice MD 10/28/2024 Travel 10/22/2024 Orders Only [facility] [place] [facility] [address] [facility] [address] [place] [address] Jessie Carlos NP from Last 3 Months Family History Relation Name Status Comments Father Mother Social History Tobacco Use Types Packs/Day Years Used Date Smoking Tobacco: Never Smokeless Tobacco: Never Tobacco Cessation:Counseling Given: Not Answered Alcohol Use Standard Drinks/Week Comments Never 0 (1 standard drink = 0.6 oz pur e alcohol) Comments Unknown Sex and Gender Information Value Date Recorded Sex Assigned at Not on file Legal Sex Female 8:24 PM EDT Gender Identity Not on file Sexual Orientation Not on file Last Filed Vital Signs Vital Sign Reading Time Taken Comments Blood Pressure 131/70 10/28/2024 8:25 AM EDT Pulse 82 10/28/2024 8:25 AM EDT Temperature - - Respiratory Rate - - Oxygen Saturation - - Inhaled Oxygen Concentration - - Weight 83.9 kg (185 lb) 10/28/2024 8:25 AM EDT Height 157.5 cm (5' 2 ) 10/28/2024 8:25 AM EDT Body Mass Index 33.84 10/28/2024 8:25 AM EDT Plan of Treatment Upcoming Encounters Date Type Department Care Team (Late st Contact Info) Description 12/04/2024 9:50 AM EDT Office Visit [facility] [address] [place] [address] Gaetano Rosen MD [address] [place] [address] 12/09/2024 9:50 AM EDT Office Visit [facility] [place] [facility] [address] [facility] [address] [place] [phone] Kylie Rice MD [address] [facility] [address] [place] [address] Health Maintenance Due Date Last Done Comments Medicare Annual Wellness (AWV) 1940 Pneumococcal Vaccine: 65+ Years (1 of 1 - PCV) 992 Influenza Vaccine (#1) 2024 Procedures Procedure Name Priority Date/Time Associated Diagnosis Comments US THYROID Routine 10/22/2024 3:47 PM EDT US THYROID Routine 10/20/2024 1:56 PM EDT SCANNED LABS Routine 10/14/2024 2:32 PM EDT from Last 3 Months Results * US thyroid (10/22/2024 3:47 PM EDT) Only the most recent of2 resultswithin the time period is included. Anatomical Region Laterality Modality Head, Neck Ultrasound us Jessie Carlos NP IMG US PROCEDURES Edited Result - Final * SCANNED LABS (10/14/2024 2:32 PM EDT) us Jessie Carlos POWDER MONKEY LAB CHG PERFORMABLES Final Resul t from Last 3 Months Insurance MEDICARE [facility] Advance Directives Documents on File Type Date Recorded Patient Police Radio Dispatcher Expl anation Advance Directives and Living Will 01/27/2019 2015-06-14 Power of Put In Beat Adjuster Advance Directives and Living Will 01/27/2019 2015-06-[address] [facility] Care Teams Homeworker Relationship Specialty Start Date End Date Jessie Carlos NP [address] [place] [address] Referring Physician Family Medicine 10/28/24
--- OUTSIDE RECORDS SUMMARY | 2024-11-13 10:40 | XMS_ITS | Clinical Summary ---
Author Organization [facility] Address [address] [place] [address] Care Team Providers Care Flat Finisher Name Role Phone Willie Cardona MD Primary Care Provider [phone] Allergies No known active allergies Medications cyanocobalamin, [...] topic Insurance [employer] MEDICARE ADVANTAGE Care Teams Flat Finisher Relationship Specialty Start Date End Date Willie Cardona MD [address] [place] [address] PCP - General Family Medicine 11/08/22
--- OUTSIDE RECORDS SUMMARY | 2024-11-13 10:40 | XMS_ITS | Clinical Summary ---
Author Organization [facility] tem Address [id number] [address] [place] [address] Care Team Providers Care Supervisor Photocomposition Name Role Phone No Pcp, No Pcp [...] Not on file Insurance MEDICARE Care Teams Supervisor Photocomposition Relationship Specialty Start Date End Date No Pcp, [place] [address] PCP - General Family Medicine 11/01/17
--- OUTSIDE RECORDS SUMMARY | 2024-11-13 10:40 | XMS_ITS | Encounter Summary ---
Author Organization [facility] Address [address] [place] [address] Care Team Providers Care Neurosurgical Nurse Practitioner Name Role Phone No, Physician Primary Care Provider Jessie Raman CNP Primary Care Provider [phone] Encounter Details Date Type Department Care Team (Late st Contact Info) Description 04/18/2022 Orders Only [facility] Radiology External Films [address] [place], [place] [id number] Social History Tobacco Use Types Packs/Day Years [...] on filedocumented in this encounter Care Teams Neurosurgical Nurse Practitioner Relationship Specialty Start Date End Date No, Physician [facility] PCP - General 04/18/22 06/12/24 Jessie Carlos, [employer] [address] [place] [address] PCP - General Nurse Practitioner 06/13/24 documented as of this encounter
--- OUTSIDE RECORDS SUMMARY | 2024-11-13 10:40 | XMS_ITS | Encounter Summary ---
Author Organization [facility] Address [address] [place] [address] Care Team Providers Care Gold Prospector Name Role Phone Jessie Carlos CNP Primary Care Provider [phone] Encounter Details Date Type Department Care Team (Late st Contact Info) Description 06/13/2024 Orders Only [facility] Radiology External Films [address] [place] [address] Social History Tobacco Use Types [...] on filedocumented in this encounter Care Teams Gold Prospector Relationship Specialty Start Date End Date Jessie Carlos CNP [address] [place] [address] PCP - General Nurse Practitioner 06/13/24 documented as of this encounter
--- OUTSIDE RECORDS SUMMARY | 2024-11-13 10:49 | XMS_ITS | CCD ---
Author Organization [facility] Care Team Providers Care Farmer Vegetable Name Role Phone DR MIGEL RAMSEY Consulting Unavailable FAWWAD, ARAIZA H Primary Care Unavailable FAWWAD, ARAIZA H Attending Unavailable FAWWAD, ARAIZA H Admitting Unavailable FAWWAD, ARAIZA H Consulting Unavailable No, Physician Primary Care Provider UnavailSTEVE Youssef Attending Unavailable Camila Carlos Primary Care Physician [phone] COSMO, CAMILA Primary Care Unavailable OLEARAMON Consulting Unavailable JOVAN OQUENDO Attending Unavailable HERMANARIANJOVAN Admitting Unavailable Cosmo BATTER DEPOSITOR - WELT STITCH CLEANER, Camila Primary Care Provider IACOB, RADHIKA Referring Unavailable COSMO, CAMILA Primary Care Unavailable IACOB, RADHIKA Referring Unavailable COSMO, CAMILA Primary Care Unavailable COSMO, CAMILA Primary Care Unavailable MICHELLE COX Admitting Unavailable MICHELLE COX Attending Unavailable OLEARAMON Admitting Unavailable LOEARAMON CHANDRA Attending Unavailable COSMO, CAMILA Primary Care Unavailable MICHELLE COX Consulting Unavailable IACOB, RADHIKA Referring Unavailable COSMO, CAMILA Primary Care Unavailable IACOB, RADHIKA Referring Unavailable COSMO, CAMILA Primary Care Unavailable OLEA, RAMON Referring Unavailable NO PCP, NO PCP Primary Care Unavailable Cosmo Camila AGUAYO Primary Care Provider COSMOCAMILA RODRIGUEZ Primary Care Unavailable LUIS FELIPE LOPES Attending Unavailable COSMO, CAMILA SAPP Primary Care Unavailable LUIS FELIPE LOPES Referring Unavailable LUIS FELIPE LOPES Admitting Unavailable COSMO, CAMILA SAPP Primary Care Unavailable LUIS FELIPE LOPES Referring Unavailable LUIS FELIPE LOPES Admitting Unavailable Arnol Huston Jr Attending Unavailable Al Tasha, Ernesto Attending Unavailable Al Tasha, Ernesto Referring Unavailable Ernesto Ramirez MD Unavailable Unavailabl e Cosmo, PROSTHETIC ASSISTANT Camila L Attending Unavailable Cosmo, PROSTHETIC ASSISTANT Camila L Attending Unavailable JIMMIE, DEDE ADAM A Attending Unavailabl e Cosmo, PROSTHETIC ASSISTANT Camila L Attending Unavailable Cosmo, PROSTHETIC ASSISTANT Camila L Attending Unavailable Cosmo, PROSTHETIC ASSISTANT Camila L Admitting Unavailable Cosmo, Camila L Attending Unavailable Cosmo, Camila L Admitting Unavailable JIMMIE, KIA A Admitting Unavailable JIMMIE, KIA A Attending Unavailable JIMMIE, KIA A Attending Unavailable Cosmo WELT STITCH CLEANER, Camila Unavailable CUAUHTEMOC JACOBO Attending Unavailable TIMMIS, CUAUHTEMOC H Attending Unavailable TIMMIS, CUAUHTEMOC H Admitting Unavailable Cosmo, Camila L Attending Unavailable Cosmo, Camila L Admitting Unavailable Cosmo, Cmaila L Admitting Unavailable Cosmo, Camila L Attending Unavailable NILLAlfonso Attending Unavailable Cosmo, Camila L Attending Unavailable Cosmo, Camila L Attending Unavailable Cosmo, Camila L Attending Unavailable Cosmo, Camila L Admitting Unavailable JIMMIE, DEDE ADAM A Attending Unavailabl e JIMMIE, DEDE KIA A Admitting Unavailabl e JIMMIE, DEVELOPER AUTOMATIC KIA A Referring Unavailabl e JIMMIE, DEVELOPER AUTOMATIC KIA A Admitting Unavailabl e JIMMIE, DEVELOPER AUTOMATIC KIA A Referring Unavailabl e JIMMIE, DEDE ADAM A Attending Unavailabl e JIMMIE, DEVELOPER AUTOMATIC KIA A Admitting Unavailabl e JIMMIE, DEVELOPER AUTOMATIC KIA A Attending Unavailabl e Allergies Allergy Classification Reported Allergen(s) Allergy Type Date of Onset Reaction(s) Facility (1 source) Corticosteroids Drug allergy (disorder) 1 [facility] Repository Medications Current Medications Medication Drug [...] per tablet 1 tablet Acidophilus Probiotic Blend (2 sources) Start: 06-26-2023 take 1 capsule by mouth twice daily Acidophilus Probiotic Blend 1 cap(s), Oral, BID, Refill(s) 0 Start Date: 06/26/23 Status: Ordered Repeat number: 1 Start: 06-26-2023 take 1 capsule by [facility] twice daily Acidophilus Probiotic Blend 1 cap(s), Oral, BID, Refill(s) 0 Start Date: 06/26/23 Status: Ordered amLODIPine 5 mg oral tablet (10 sources) Dihydropyridine Calcium Channel Li Start: 12-13-2022 End: 11-30-2024 amLODIPine (Norvasc) 5 MG tablet Take by mouth 12/13/2022 11/30/2024 Active Ascorbic Acid / Beta Carotene / cuprous oxide / Vitamin E / Zinc Oxide (1 source) Vitamin C take 1 capsule by mouth twice daily PreserVision AREDS-2 250 mg-90 mg-40 mg-1 mg capsule take 1 capsule by oral route 2 times every day 1 capsule - Active calcium carbonate 1500 mg oral tablet (5 sources) Start: 05-01-2024 take 1 tablet by mouth in the morning calcium carbonate 1500 (600 Ca) MG tablet Take 1,200 mg by mouth in the morning. 05/01/2024 Active Start: 05-01-2024 take 2 tablets by [facility] once daily calcium carbonate (OS-MARYCARMEN) 600 mg calcium (1,500 mg) tablet Take 2 (two) tablets (1,200 mg total) by mouth daily . 05/01/2024 Active Start: 05-01-2024 End: 04-26-2025 calcium (as carbonate) 600 m g oral tablet 1,200 mg = 2 tab(s), Oral, Daily, X 90 day(s), # 180 tab(s), Refills(s) 3, Pharmacy: [id number], 158, cm, 04/24/24 14:32:00 EST, Height/Length Dosing, 88.3, kg, 04/24/24 14:32:00 EST, Weight Dosing Start Date: 05/01/24 Stop Date: 04/26/25 Status: Ordered Quantity: 180.0 Unit: tab(s) Repeat number: 4 take 1 tablet by martín th twice daily Calcium-600 600 mg (as calcium carbonate 1,500 mg) tablet take 1 tablet by oral route 2 times every day 1 tablet - Active carboxymethylcellulose 0.01 mg/mg ophthalmic gel (3 sources) Start: 07-28-2024 carboxymethylcellulose (Refresh Liquigel) 1 % ophthalmic solution dropperette 07/28/2024 Active carboxymethylcellulose sodium 5 mg/ml / glycerin 9 mg/ml ophthalmic solution (1 source) Non-Standardize d Chemical Allergen Refresh Relieva PF 0 .5 %-0.9 % eye drops instill by ophthalmic route bid/tid OU - Active cephalexin 500 mg oral capsule (3 sources) [...] provider prior to any invasive procedure. Post-op ergocalciferol 1.25 mg oral capsule (4 sources) Provitamin D2 Compound Start: 05-01-2024 take 1 capsule by mouth every week ergocalciferol (ERGOCALCIFEROL) 1,250 mcg (50,000 unit) capsule Take 1 (one) capsule (50,000 Units total) by mouth once a week . 05/01/2024 Active take 1 capsule by mouth every we ek Vitamin D2 1,250 mcg (50,000 unit) capsule take 1 capsule by oral route every week 92268 UNITS - Active lactobacillus rhamnosus gg [id number] unt oral capsule (6 sources) Start: 06-22-2023 take 1 capsule by mouth in the morning lactobacillus (Culturelle) capsule Take 1 capsule by mouth in the morning and 1 capsule in the evening. Take with meals. 06/22/2023 Active Start: 06-22-2023 take 1 capsule by [facility] twice daily at mealtime lactobacillus (CULTURELLE) capsule Take 1 capsule by mouth 2 times daily (with meals) 60 capsule 0 06/22/2023 Active Lutein / zeaxanthin (1 source) take 1 capsule by mouth once daily 50 ml magnesium sulfate 40 mg/ml injection (1 source) Start: 07-31-19 2,000 mg, IntraVENous, at 25 mL/hr, Administer over 2 Hours, PRN, Other, Magnesium Replacement, Starting on Sun07/31/23 at 1826 Mag Lab Replacement Action 1.4-1.6 mg/dL & nbsp; 2,000 mg Total Dose Given as 1,000 mg IVPB x 2 doses or 2,000 mg IVPB x 1 dose &nbs p; &n bsp; &amp ;nbsp;1.0-1.3 mg/dL 4,000 mg Total Dose &nbs p; &n bsp; Given as 1,000 mg IVPB x 4 doses or 2,000 mg IVPB x 2 doses Less than 1.0 mg/dL CALL PHYSICIAN and give &nbs p; &n bsp; 4,000 mg Total Dose &nbs p; &n bsp; Given as 1,000 mg IVPB x 4 doses or 2,000 mg IVPB x 2 doses &nbsp ;Infuse at 1,000 mg/hr Repeat Mag level 1 hour after final administration Pr otocol not for use in Patients with CrCl less than 30ml/min milk thistle extract 500 mg oral capsule (1 source) take 1 capsule by mouth once daily milk thistle 500 mg capsule take 1 cap po qd - Active omega-3 acid ethyl esters (fpc) 1000 mg oral capsule (4 sources) take 1 capsule by mouth in the morning omega-3 acid ethyl esters (Lovaza) 1 g capsule Take 2 g by mouth in the morning and 2 g in the evening. Active 2 ml ondansetron 2 mg/ml injection (1 source) Serotonin-3 Receptor Antagonist Start: 07-31-19 ondansetron (ZOFRAN) injection 4 mg ondansetron (ZOFRAN-ODT) disintegrating tablet 4 mg (1 source) Start: 07-17-19 ondansetron (ZOFRAN-ODT) disintegrating tablet 4 mg oxyCODONE (1 source) Opioid Agonist Start: 07-17-19 24 oxyCODONE (ROXICODONE) immediate release tablet 5 mg piperacillin-tazobacta m (ZOSYN) 3,375 mg in sodium chloride 0.9 % 50 mL IVPB ([id number]) (1 source) Start: 07-31-19 piperacillin-tazobacta m (ZOSYN) 3,375 mg in sodium chloride 0.9 % 50 mL IVPB ([id number]) polyvinyl alcohol 0.014 ml/ml / povidone 6 mg/ml ophthalmic solution (1 source) Refresh Classic (PF) 1.4 %-0.6 % eye drops in a dropperette instill 1 drop by topical route bid/tid OU - Active Potassium Chloride (1 source) Start: 07-31-19 24 potassium chloride (KLOR-CON M) extended release tablet 40 mEq PROBIOTIC (unknown strength) (1 source) take 1 capsule by mouth twice daily pyridoxine hydrochloride 25 mg oral tablet (3 sources) pyridoxine (Lisa min B-6) 25 MG tablet take 1 tab po qd/bid Active terbinafine hydrochloride 10 mg/ml topical cream (1 source) Allylamine Antifungal Start: 03-30-19 24 Lamisil AT 1% Cream 1 ashwini, Topical, BID, 12 gram, Refill(s) 0, [facility] #[id number], 155, cm, 03/30/23 10:41:00 EST, Height/Length Dosing, 87.6, kg, 03/30/23 10:41:00 EST, Weight Dosing Start Date: 03/30/23 Status: Ordered vitamin b12 1 mg/ml oral solution (10 sources) Vitamin B12 End: 07-17-19 24 take 1 tablet by mouth in the morning Cyanocobalamin 1000 MCG/ML liquid Take 1 tablet by mouth in the morning. Active take 1 tablet by mouth once nasrin y vitamin B-12 (CYANOCOBALAMIN) 1000 MCG tablet Take 1 tablet by mouth daily 0 Active vitamin e 22.6 mg/ml oral solution (4 sources) take 2 capsules by m outh once daily vitamin E, dl, acetate, 22.5 mg (50 unit)/mL Drop Take 2 capsules by mouth daily . Active Completed/Discontinued Medications Medication Drug Class(es) Dates [...] % injection 75 mL polyethylene glycol 3350 37302 mg powder for oral solution (1 source) [...] Line Care, After every IV line use 1 ml triamcinolone acetonide 40 mg/ml injection (1 source) Corticosteroid Start: 06-13-2024 End: 06-13-2024 80 mg, Intra-articular, Once as needed Procedure, Starting on Sun06/13/24 at 1052, For 1 dose Vitamin D 50,000 intl units (1.25 mg) oral capsule (1 source) Start: 05-01-2024 take 1 capsule by mouth every week Vitamin D 50,000 intl units (1.25 mg) oral capsule 50,000 International_Unit = 1 cap(s), Oral, qWeek, # 12 cap(s), Refills(s) 4, Pharmacy: [facility] #[id number], 158, cm, 04/24/24 14:32:00 EST, Height/Length Dosing, 88.3, kg, 04/24/24 14:32:00 EST, Weight Dosing Start Date: 05/01/24 Status: Ordered Quantity: 12.0 Unit: cap(s) Repeat number: 5 Problems Active Problems Problem Classification Problem Date Documented Da te Episodic/Chronic Abdominal hernia (8 sources) Irreducible hernia of anterior abdominal wall; Translations: [Other and unspecified ventral hernia with obstruction, without gangrene] Onset: 07-17-2023 Resolved: 07-25-2023 07-18-2023 Episodic Abdominal pain (5 sources) Epigastric pain; Translations: [Epigastric pain] Onset: 06-20-2023 Resolved: 07-16-2023 07-16-2023 Episodic Cataract (2 sources) Presence of intraocular lens; Translations: [Pseudophakia] Onset: 07-28-2024 Chronic Complications of surgical procedures or medical care (12 sources) Wound dehiscence; Translations: [Disruption of wound, unspecified, initial encounter] Onset: 07-16-2023 Resolved: 07-25-2023 07-18-2023 Episodic Disorders of lipid metabolism (5 sources) Hypercholesterolemia; Translations: [Mixed hyperlipidemia] Onset: 10-22-2024 04-10-2024 Chronic Essential hypertension (9 sources) Hypertensive disorder; Translations: [Essential (primary) hypertension] Onset: 07-17-2023 02-05-2023 Chronic Menopausal disorders (3 sources) Postmenopausal bleeding; Translations: [Postmenopausal bleeding] Onset: 10-22-2024 10-22-2024 Chronic Nonspecific chest pain (2 sources) Chest pain, unspecified; Translations: [Chest pain, unspecified] Onset: 11-08-2022 Episodic Nutritional deficiencies (4 sources) Undernutrition; Translations: [Mild protein-calorie malnutrition] Onset: 07-18-2023 07-18-2023 Chronic Osteoarthritis (3 sources) Osteoarthritis of left knee joint; Translations: [Unilateral primary osteoarthritis, left knee] Onset: 06-13-2024 06-13-2024 Chronic Other aftercare (2 sources) Encounter for change or removal of nonsurgical wound dressing; Translations: [Encounter for change or removal of nonsurgical wound dressing] Onset: 08-04-2023 Episodic Other aftercare (2 sources) Encounter for follow-up examination after completed treatment for conditions other than malignant neoplasm; Translations: [Encounter for follow-up examination after completed treatment for conditions other than malignant neoplasm] Onset: 06-13-2024 Episodic Other and unspecified benign neoplasm (2 sources) Lipoma of back 06-27-2023 Episodic Other and unspecified benign neoplasm (2 sources) Benign neoplasm of left choroid; 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] Onset: 07-28-2024 Episodic Other and unspecified benign neoplasm (1 source) Lipoma of skin and subcutaneous tissue of limb; Translations: [Benign lipomatous neoplasm of skin and subcutaneous tissue of unspecified limb] Onset: 10-21-2024 Episodic Other and unspecified benign neoplasm (1 source) Lipoma of upper arm 10-21-2024 Episodic Other and unspecified benign neoplasm (1 source) Lipoma of upper limb 10-14-2024 Episodic Other connective tissue disease (3 sources) History of right total knee replacement; Translations: [Presence of right artificial knee joint] Chronic Other connective tissue disease (2 sources) Presence of right artificial knee joint; Translations: [Presence of right artificial knee joint] Onset: 06-13-2024 Chronic Other connective tissue disease (2 sources) Ganglion cyst of right dorsal wrist 09-03-2023 Episodic Other gastrointestinal disorders (1 source) Diarrhea, unspecified; Translations: [Diarrhea, unspecified] Onset: 08-27-2023 Episodic Other injuries and conditions due to external causes (1 source) Spider bite wound 01-03-2023 Episodic Other nervous system disorders (1 source) Postoperative pain ; Translations: [Other acute postprocedural pain] 07-18-2023 Episodic Other nervous system disorders (1 source) Other acute postprocedural pain; Translations: [Other acute postprocedural pain] Onset: 07-17-2023 Episodic Other non-traumatic joint disorders (3 sources) Pain in left shoulder; Translations: [Pain in joint, shoulder region] Onset: 10-22-2024 10-22-2024 Episodic Other nutritional; endocrine; and metabolic disorders (6 sources) Body mass index 30+ - obesity; Translations: [Body mass index (BMI) 37.0-37.9, adult] Onset: 10-22-2024 02-05-2023 Chronic Other nutritional; endocrine; and metabolic disorders (1 source) Obesity caused by energy imbalance 10-21-2024 Chronic Other skin disorders (2 sources) Changes in skin texture 10-01-2023 Episodic Other skin disorders (1 source) Excessive sweating 10-14-2024 Episodic Other skin disorders (1 source) Loss of hair 10-14-2024 Episodic Other skin disorders (1 source) Mass of upper limb 04-24-2024 Episodic Residual codes; unclassified (2 sources) Other specified health status; Translations: [Other specified conditions influencing health status] Onset: 07-31-2023 07-31-2023 Episodic Residual codes; unclassified (3 sources) Memory impairment; Translations: [Other amnesia] Onset: 10-22-2024 10-22-2024 Episodic Retinal detachments; defects; vascular occlusion; and retinopathy (2 sources) Nonexudative age-related macular degeneration, bilateral, intermediate dry stage; Translations: [Nexdtve age-related mclr degn, bilateral, intermed dry stage] Onset: 07-28-2024 Chronic Screening and history of mental health and substance abuse codes (3 sources) H/O: psychiatric disorder; Translations: [Personal history of other mental and behavioral disorders] Onset: 10-22-2024 10-22-2024 Episodic Skin and subcutaneous tissue infections (2 sources) Abscess of umbilicus; Translations: [Cutaneous abscess of umbilicus] Onset: 07-31-2023 08-03-2023 Episodic Spondylosis; intervertebral disc disorders; other back problems (3 sources) Spinal stenosis of lumbar region; Translations: [Spinal stenosis, lumbar region without neurogenic claudication] Onset: 06-13-2024 06-13-2024 Episodic Thyroid disorders (1 source) Hyperthyroidism 10-17-2024 Chronic Thyroid disorders (2 sources) Mass of thyroid gland; Translations: [Disorder of thyroid, unspecified] 10-28-2024 Episodic Unclassified (2 sources) Dressing Change; Translations: [Dressing Change] Onset: 08-04-2023 Unclassified (1 source) Low back pain, unspecified; Translations: [Low back pain, unspecified] Onset: 06-13-2024 Viral infection (2 sources) Hand wart 10-01-2023 Episodic Past or Other Problems Problem Classification Problem Date Documented Date Episodic/Chronic Biliary tract disease (8 sources) Other cholelithiasis without obstruction; Translations: [Calculus of gallbladder with acute cholecystitis without obstruction] Onset: 06-20-2023 Resolved: 07-16-2023 07-16-2023 Episodic Unclassified (1 source) Low back pain, unspecified; Translations: [Low back pain, unspecified] Onset: 06-13-2024 Unclassified (1 source) DRY AMD (chief complaint) Onset: 07-28-2024 Results Test Name Value Interpretation Reference Range Facility CT Abdomen/Pelvis w/o Contra ston 11-12-2024 CT Abdomen/Pelvis w/o Contrast Exam Date/Time: 11/11/2024 12:41 EDT Reason for Exam: N20.0;Other (please specify) Report IMPRESSION: PERIUMBILICAL HERNIA CONTAINING FAT AND COLON WITH NO CT EVIDENCE OF INCARCERATION OR OBSTRUCTION. SIGMOID DIVERTICULOSIS. CHOLECYSTECTOMY. NO RENAL/URETERAL CALCULI. NO HYDRONEPHROSIS/HYDROU RETER. CT OF THE ABDOMEN AND PELVIS WITHOUT INTRAVENOUS CONTRAST MEDIUM. HISTORY: N20.0. C/O RENAL STONE/ ISSUE W/KIDNEYS/ CONSTIPATION/ ABD PAIN/ STATES FEELS LIKE SOMETHING METAL IS PUSHING AT INCISION FROM LAP PANCHITO DONE LAST YR/ STATES BOWEL MOVEMENTS ARE NOT NORMAL TECHNICAL FACTORS: CT imaging of the abdomen and pelvis were obtained and formatted as 5 mm contiguous axial images from the domes of the diaphragm to the symphysis pubis. Sagittal and coronal reconstructions were also obtained. Comparison: None. Findings: Lower chest: Liver: Normal in size, shape, and attenuation. Bile Ducts: Normal in caliber. Gallbladder: Surgically absent. Pancreas: Normal without masses, cysts, ductal dilatation or calcification. Spleen: Normal in size without masses. Punctate calcification within spleen. No splenules. Kidneys: Normal in size. No hydronephrosis, masses, or stones. Adrenals: Normal. Small bowel: Normal in caliber. Appendix: Normal. Report Colon: Normal in caliber. Diverticular change, sigmoid colon. Peritoneum: No ascites, free air, or fluid collections. Vessels: Aorta normal in course and caliber. Lymph nodes: Retroperitoneal: No enlarged retroperitoneal lymph nodes. Mesenteric: No enlarged mesenteric lymph nodes. Pelvic: No enlarged pelvic lymph nodes. Ureters: Normal in course and caliber. No calcifications. Bladder: No wall thickening. Reproductive organs: No pelvic masses. Abdominal Wall: 3.5 cm periumbilical anterior abdominal wall defect containing fat and colon. No associated fat stranding or bowel dilatation identified. No diastasis of rectus musculature. No edema or masses. Bones: No bone lesions. No degenerative changes. No post operative changes. All CT scans at this facility use dose modulation, iterative reconstruction, and/or weight based dosing when appropriate to reduce radiation dose to as low as reasonably achievable. Technical Comments: Rectal Contrast Given? No Ordering Provider: KIA SAMUEL FINAL REPORT Dictated: 11/12/2024 12:06 pm Ignacio Haque MD Signed (Electronic Signature): 11/12/2024 12:06 pm Signed by: Ignacio Haque MD Transcribed by: BRITTANY Technologist: LATHA Gtz [facility] Provider Orderson 11-03-2024 Provider Orders [id number] #[id number] [facility] US Retroperitoneal Completeo n 10-29-2024 US Retroperitoneal Complete Exam Date/Time: 10/29/2024 08:16 EDT Reason for Exam: R31.9;Other (please specify) Report IMPRESSION: FINDINGS SUSPICIOUS FOR SMALL NONOCCLUDING BILATERAL RENAL CALCULI. IF CLINICAL CONCERN WARRANTS, CT OF THE ABDOMEN AND PELVIS WITHOUT INTRAVENOUS CONTRAST MEDIUM MAY BE OBTAINED FOR FURTHER EVALUATION AND CONFIRMATION. CLINICAL HISTORY: R31.9 COMPARISON: NONE. FINDINGS: Bladder is smoothly marginated and well-defined. Bilateral ureteral jets visualized on color flow. Prevoid urinary bladder volume 285 mL. Post void urinary bladder volume 25 mL. Right kidney measures 10.8 x 3.6 x 4.3 cm. Left kidney measures 11.6 x 5.3 x 4.4 cm. Kidneys normal in size and shape. No pelvocaliectasis, cortical thinning, cystic/solid lesions bilaterally. Right kidney shows several foci of twinkle effect in mid pole, with similar findings found in contralateral left kidney. Technical Comments: Ordering Provider: KIA SAMUEL FINAL REPORT Dictated: 10/29/2024 10:10 am Ignacio Haque MD Signed (Electronic Signature): 10/29/2024 10:10 am Signed by: Ignacio Haque MD Transcribed by: BRITTANY Technologist: JACQUELINE Gtz [facility] Reminderson 10-28-2024 Reminders Reminders From: Camila Max To: B - Clinical; Sent: 10/15/2024 07:45:27 EDT Show up: 10/15/2024 07:42:00 EDT Subject: Ambulatory Reminder Due Date/Time: 10/16/2024 07:41:00 EDT One of her thyroid tests was low TSH. This shows that she has hyperthyroid which can cause excessive sweating. I would like to order u/s of her thyroid to check for nodules on her thyroid. What hospital would she like to have the ultrasound done at? Results: Date Result Name Ind Value Ref Range 10/14/2024 9:02 Glucose Lvl 92 mg/dL (55 - 199) 10/14/2024 9:02 BUN 16 mg/dL (5 - 21) 10/14/2024 9:02 Creatinine 0.6 mg/dL (0.5 - 1.3) 10/14/2024 9:02 eGFR 89 mL/min/1.73 m2 (>=59 - ) 10/14/2024 9:02 BUN/Creat Ratio (H) 27 (10 - 20) 10/14/2024 9:02 Sodium Lvl 139 mmol/L (135 - 145) 10/14/2024 9:02 Potassium Lvl 4.2 mmol/L (3.5 - 5.3) 10/14/2024 9:02 Chloride 106 mmol/L (101 - 111) 10/14/2024 9:02 CO2 28 mmol/L (21 - 31) 10/14/2024 9:02 AGAP 9 mEq/L (6 - 16) 10/14/2024 9:02 Calcium Lvl 9.8 mg/dL (8.9 - 11.1) 10/14/2024 9:02 Alk Phos 87 Int._Unit/L (21 - 98) 10/14/2024 9:02 ALT 23 Int._Unit/L (6 - 46) 10/14/2024 9:02 AST 26 Int._Unit/L (5 - 43) 10/14/2024 9:02 Total Protein 6.5 gm/dL (6.0 - 7.8) 10/14/2024 9:02 Albumin Lvl 4.2 gm/dL (3.3 - 5.0) 10/14/2024 9:02 Globulin 2.3 gm/dL (1.4 - 4.0) 10/14/2024 9:02 A/G Ratio 1.8 (1.1 - 2.2) 10/14/2024 9:02 Bili Total 0.7 mg/dL (0.0 - 1.1) 10/14/2024 9:02 TSH (L) 0.08 mcIU/mL (0.34 - 5.60) 10/14/2024 9:02 T4 Free 0.87 ng/dL (0.58 - 1.64) 10/14/2024 9:02 Vitamin D 25 Hydroxy 42.9 ng/mL (30.0 - 100.0) LM on requesting pt call back for below results. completed. Normal [facility] C Urineon 10-24-2024 Bacteria identified Cx Nom (U) Microbiology PROCEDURE: Urine Culture [R1] SOURCE: U Random BODY SITE: COLLECTED DATE/TIME: 10/22/2024 09:17 EDT RECEIVED DATE/TIME: 10/22/2024 17:13 EDT START DATE/TIME: 10/22/2024 17:13 EDT FREE TEXT SOURCE: KIA SAMUEL CNP, CNP, KIA De La Vega FINAL REPORTS Final Report [] Verified Date/Time: 10/24/2024 08:24 EDT <10,000 cfu/ml Mixed skin contaminants Performing Locations R1: This test was performed at: [facility], [address] [place] [address], [id number]- , , [facility] Comment on above: Performed By: #### [id number] #### [facility] [address] [place] [id number] Ambulatory Visit Summaryon 0 10-22-2024 Ambulatory Visit Summary Ambulatory Visit Summary MICHEAL BRICE :1940 Visit Date:10/22/2024 Ambulatory Visit Instructions Your Diagnosis Hematuria Weight loss BMI 33.0-33.9,adult Obesity (BMI 30.0-34.9) Nonsmoker Your Care Team Attending Physician - KIA SAMUEL CNP Primary Care Physician - Camila Max This Is Your Medications List amlodipine (amLODIPine 5 mg Tab) calcium carbonate (calcium (as carbonate) 600 mg oral tablet) ergocalciferol (Vitamin D 50,000 intl units (1.25 mg) oral capsule) lactobacillus acidophilus (Acidophilus Probiotic Blend) Procedures Performed Cholecystectomy (2023), Amputation of thumb, Arthroplasty of right knee, Cataract, Closed fracture of ankle, Excision of lesion of skin, Lysis of adhesions, Repair of incisional hernia, Stomach. Discharge Vitals Temperature (Oral) 36.8 ???C Heart Rate (Peripheral) 60 Respiratory Rate 18 Blood Pressure 130/82 Height 158 cm Height 62 in Weight 83.1 kg Weight 183.204 lb BMI 33.29 What to do next Scheduled Follow-Up Appointments Sunday2025 9:30 AM EST With: Where: [address] [address]- Sunday2025 10:20 AM EST With: Camila Max Where: [address] [address]- Medications What How Much When Instructions Unchanged amlodipine (amLODIPine 5 mg Tab) 1 Tablets By Mouth Every day Duration: 90 Days Unchanged calcium carbonate (calcium (as carbonate) 600 mg oral tablet) 2 Tablets By Mouth Every day Duration: 90 Days Unchanged ergocalciferol (Vitamin D 50,000 intl units (1.25 mg) oral capsule) 1 Capsules By Mouth Every week Unchanged lactobacillus acidophilus (Acidophilus Probiotic Blend) 1 Capsules By Mouth 2 times a day Allergies No Known Allergies Problems Ongoing - Any problem that you are currently receiving treatment for. BMI 33.0-33.9,adult Excessive sweating Flank pain Ganglion cyst of dorsum of right wrist Hair thinning Hypercholesteremia Hypertension Hyperthyroidism Lipoma of arm Lipoma of back Lipoma of upper arm Mass of soft tissue of upper arm Nonsmoker Obesity (BMI 30.0-34.9) Obesity due to excess calories S/P cholecystectomy Skin texture changes Wart of hand Patient Survey You may receive a survey via text or e-mail asking about your office visit. Please share your experience with us by completing your survey. We appreciate your feedback and thank you for choosing us for your care. Patient Portal You may access all of your results and other medical record information on our secure patient portal. If you are not signed up for this yet, please contact [employer] at [phone] to get signed up today. Language Information Language assistance services are available as needed. Normal [facility] Family Medicine Office/Clini c Noteon 10-22-2024 Family Medicine Office/Clinic Note Family Medicine Office/Clinic Note Chief Complaint Blood in urine & recent unexplained weight loss The patient reports blood in urine and significant weight loss. HPI Staff Camila Carlos pt. Presenting today due to blood in urine and recent unexplained weight loss. First saw blood in urine yesterday. Specks of blood in the toilet. Denies Hx of blood in urine. Denies UTI sx. Has been having Rt flank pain. Denies Hx of kidney stones History of Present Illness 84-year-old female presenting with hematuria and unexplained weight loss. The hematuria was first noticed yesterday, described as small drops of blood in the urine, occurring once without associated pain or urinary symptoms such as urgency or burning. A urine dip test confirmed the presence of blood and trace leukocytes, suggesting a possible infection or contamination from vaginal arthur. The patient reports a significant decrease in energy levels over the past couple of months, with episodes of excessive sweating and fatigue during minimal exertion. She has experienced a loss of appetite, leading to weight loss, and describes an aversion to food despite feeling hungry. The patient has been referred to an ear, nose, and throat specialist following the discovery of multiple thyroid nodules, including a dominant hypoechoic nodule that requires further evaluation. Review of Systems PHQ Score Initial Depression Screen Score: 0 SCORE - Genitourinary: Reports hematuria, denies dysuria or urinary urgency - Constitutional: Reports fatigue, excessive sweating, and weight loss Physical Exam Vitals & Measurements T: 36.8 ???C(Oral) HR: 60(Peripheral) RR: 18 BP: 130/82 SpO2: 98% HT: 62 in HT: 158 cm WT: 183.204 lb WT: 83.1 kg BMI: 33.29 General: alert, no acute distress Skin: warm, dry Head: no trauma, normocephalic Neck: No thyroidmegaly Eye: normal conjunctiva, sclera clear Cardiovascular: regular rate and rhythm, normal peripheral perfusion Respiratory: Lungs CTA, respirations non labored Chest wall: no deformity. Gastrointestinal: soft, non distended, no CV tenderness, no guarding. Back: No tenderness, Normal ROM, Normal alignment. Extremities: no deformity, no trauma Assessment/Plan 1. Hematuria (R31.9: Hematuria, unspecified) - Plan to perform a renal ultrasound to check for kidney stones or other abnormalities. - POC UA negative today in the office - Awaiting US of kidneys Ordered: Urine Culture Urnls Dip Stick Auto w/o Microscopy POC 42180 US Retroperitoneal Complete 2. Thyroid nodule (E04.1: Nontoxic single thyroid nodule) - Referral to an ear, nose, and throat specialist for evaluation and potential biopsy of thyroid nodules. - Discussed US of thyroid with patient in detail - Encouraged to keep appoint with ENT as scheduled on Sunday, October 28, 2024 3. Weight loss (R63.4: Abnormal weight loss) - Monitor weight and appetite changes, further evaluation pending thyroid and renal assessments. - Patient has lost 11.464 lbs since April with out trying to lose weight - F/U with pcp 4. BMI 33.0-33.9,adult (Z68.33: Body mass index [BMI] 33.0-33.9, adult) BMI 33.29 5. Obesity (BMI 30.0-34.9) (E66.811: Obesity, class 1) The standard range for ages 18 and older is >=18.5 and < 25 kg/m2. Your BMI today was above this range, this falls in the overweight to obese category and there are medical benefits to weight loss. We can offer counselling, referral, and/or medical support in addressing this problem. Your BMI and weight management will be followed at subsequent visits. 6. Nonsmoker (Z78.9: Other specified health status) Encouraged to continue as a non-smoker Total time spent preparing the chart, conducting of the encounter with the patient and family and time spent documenting, reviewing, and ordering tests was 30 minutes. Follow-up No qualifying data available Patient Education Thyroid Nodule Problem List/Past Medical History Ongoing BMI 33.0-33.9,adult Excessive sweating Flank pain Ganglion cyst of dorsum of right wrist Hair thinning Hypercholesteremia Hypertension Hyperthyroidism Lipoma of arm Lipoma of back Lipoma of upper arm Mass of soft tissue of upper arm Nonsmoker Obesity (BMI 30.0-34.9) Obesity due to excess calories S/P cholecystectomy Skin texture changes Wart of hand Historical No qualifying data Procedure/Surgical History Cholecystectomy (2023), Amputation of thumb, Arthroplasty of right knee, Cataract, Closed fracture of ankle, Excision of lesion of skin, Lysis of adhesions, Repair of incisional hernia, Stomach. Medications Acidophilus Probiotic Blend, 1 cap(s), Oral, BID amLODIPine 5 mg Tab, 5 mg= 1 tab(s), Oral, Daily, 3 refills, Not taking: stopped taking herself calcium (as carbonate) 600 mg oral tablet, 1200 mg= 2 tab(s), Oral, Daily, 3 refills Vitamin D 50,000 intl units (1.25 mg) oral capsule, 47[address] International_Unit= 1 cap(s), Oral, qWeek, 4 ref (more content not included)... Normal [facility] Comment on above: Result Comment: Elec tronically Signed By: KIA SAMUEL CNP\.br\Date and Time Signed: 10/22/24 10:03 EDT Ambulatory Visit Summaryon 0 10-21-2024 Ambulatory Visit Summary Ambulatory Visit Summary MICHEAL BRICE :1940 Visit Date:10/21/2024 Ambulatory Visit Instructions Your Care Team Attending Physician - OCTAVIA JULIEN, Alfonso Scott Primary Care Physician - Camila Max This Is Your Medications List Contact prescribing physician if questions or concerns amlodipine (amLODIPine 5 mg Tab) calcium carbonate (calcium (as carbonate) 600 mg oral tablet) ergocalciferol (Vitamin D 50,000 intl units (1.25 mg) oral capsule) lactobacillus acidophilus (Acidophilus Probiotic Blend) Procedures Performed Cholecystectomy (2023), Amputation of thumb, Arthroplasty of right knee, Cataract, Closed fracture of ankle, Excision of lesion of skin, Lysis of adhesions, Repair of incisional hernia, Stomach. Discharge Vitals Heart Rate (Peripheral) 80 Respiratory Rate 16 Blood Pressure 104/68 Height 158 cm Height 62 in Weight 82.7 kg Weight 182.322 lb BMI 33.13 What to do next Scheduled Follow-Up Appointments Sunday2025 9:30 AM EST With: Where: [address] [id number] Sunday2025 10:20 AM EST With: Camila Max Where: [address] [address]- Medications What How Much When Instructions Unchanged amlodipine (amLODIPine 5 mg Tab) 1 Tablets By Mouth Every day Duration: 90 Days Contact prescribing physician if questions or concerns Unchanged calcium carbonate (calcium (as carbonate) 600 mg oral tablet) 2 Tablets By Mouth Every day Duration: 90 Days Contact prescribing physician if questions or concerns Unchanged ergocalciferol (Vitamin D 50,000 intl units (1.25 mg) oral capsule) 1 Capsules By Mouth Every week Contact prescribing physician if questions or concerns Unchanged lactobacillus acidophilus (Acidophilus Probiotic Blend) 1 Capsules By Mouth 2 times a day Contact prescribing physician if questions or concerns Allergies No Known Allergies Problems Ongoing - Any problem that you are currently receiving treatment for. BMI 33.0-33.9,adult Excessive sweating Flank pain Ganglion cyst of dorsum of right wrist Hair thinning Hypercholesteremia Hypertension Hyperthyroidism Lipoma of arm Lipoma of back Mass of soft tissue of upper arm Obesity due to excess calories S/P cholecystectomy Skin texture changes Wart of hand Patient Survey You may receive a survey via text or e-mail asking about your office visit. Please share your experience with us by completing your survey. We appreciate your feedback and thank you for choosing us for your care. Patient Portal You may access all of your results and other medical record information on our secure patient portal. If you are not signed up for this yet, please contact [employer] at [phone] to get signed up today. Language Information Language assistance services are available as needed. Normal [facility] C Urineon 10-16-2024 Bacteria identified Cx Nom (U) Microbiology PROCEDURE: Urine Culture [R1] SOURCE: U CleanCatch BODY SITE: COLLECTED DATE/TIME: 10/14/2024 09:30 EDT RECEIVED DATE/TIME: 10/14/2024 16:50 EDT START DATE/TIME: 10/14/2024 16:50 EDT FREE TEXT SOURCE: Camila Max Jodi L FINAL REPORTS Final Report [] Verified Date/Time: 10/16/2024 11:02 EDT <10,000 cfu/ml Mixed skin contaminants Performing Locations R1: This test was performed at: [facility], [address] [place] [address], [address] , , Normal [facility] Comment on above: Performed By: #### 2 [id number] #### [facility] [address] [place] [address] T3 Freeon 10-16-2024 Free T3 [Mass/Vol] 4.3 pg/mL Invalid Interpretation Code 2.0-4.4 [facility] Comment on above: Result Comment: Perf ormed at: [facility] [address] [id number] PhD Mark Salcedo Performed By: #### 2 [id number] #### [facility] [address] [place] [id number] Reminderson 10-15-2024 Reminders Reminders From: Camila Max To: [facility] - Clinical; Sent: 10/15/2024 07:45:27 EDT Show up: 10/15/2024 07:42:00 EDT Subject: Ambulatory Reminder Due Date/Time: 10/16/2024 07:41:00 EDT One of her thyroid tests was low TSH. This shows that she has hyperthyroid which can cause excessive sweating. I would like to order u/s of her thyroid to check for nodules on her thyroid. What hospital would she like to have the ultrasound done at? Results: Date Result Name Ind Value Ref Range 10/14/2024 9:02 Glucose Lvl 92 mg/dL (55 - 199) 10/14/2024 9:02 BUN 16 mg/dL (5 - 21) 10/14/2024 9:02 Creatinine 0.6 mg/dL (0.5 - 1.3) 10/14/2024 9:02 eGFR 89 mL/min/1.73 m2 (>=59 - ) 10/14/2024 9:02 BUN/Creat Ratio (H) 27 (10 - 20) 10/14/2024 9:02 Sodium Lvl 139 mmol/L (135 - 145) 10/14/2024 9:02 Potassium Lvl 4.2 mmol/L (3.5 - 5.3) 10/14/2024 9:02 Chloride 106 mmol/L (101 - 111) 10/14/2024 9:02 CO2 28 mmol/L (21 - 31) 10/14/2024 9:02 AGAP 9 mEq/L (6 - 16) 10/14/2024 9:02 Calcium Lvl 9.8 mg/dL (8.9 - 11.1) 10/14/2024 9:02 Alk Phos 87 Int._Unit/L (21 - 98) 10/14/2024 9:02 ALT 23 Int._Unit/L (6 - 46) 10/14/2024 9:02 AST 26 Int._Unit/L (5 - 43) 10/14/2024 9:02 Total Protein 6.5 gm/dL (6.0 - 7.8) 10/14/2024 9:02 Albumin Lvl 4.2 gm/dL (3.3 - 5.0) 10/14/2024 9:02 Globulin 2.3 gm/dL (1.4 - 4.0) 10/14/2024 9:02 A/G Ratio 1.8 (1.1 - 2.2) 10/14/2024 9:02 Bili Total 0.7 mg/dL (0.0 - 1.1) 10/14/2024 9:02 TSH (L) 0.08 mcIU/mL (0.34 - 5.60) 10/14/2024 9:02 T4 Free 0.87 ng/dL (0.58 - 1.64) 10/14/2024 9:02 Vitamin D 25 Hydroxy 42.9 ng/mL (30.0 - 100.0) Normal [facility] Ambulatory Visit Summaryon 0 10-14-2024 Ambulatory Visit Summary Ambulatory Visit Summary MICHEAL BRICE :1940 Visit Date:10/14/2024 Ambulatory Visit Instructions Your Diagnosis Excessive sweating Hair thinning Flank pain Non-smoker BMI 34.0-34.9,adult, Body mass index [BMI] 34.0-34.9, adult Class 1 obesity due to excess calories with body mass index (BMI) of 34.0 to 34.9 in adult Other obesity due to excess calories Your Care Team Attending Physician - Camila Max Primary Care Physician - Camila Max This Is Your Medications List amlodipine (amLODIPine 5 mg Tab) calcium carbonate (calcium (as carbonate) 600 mg oral tablet) ergocalciferol (Vitamin D 50,000 intl units (1.25 mg) oral capsule) lactobacillus acidophilus (Acidophilus Probiotic Blend) Procedures Performed Cholecystectomy (2023), Ankle, Bowel, Cataract, Finger, Knee replacement, Stomach. Discharge Vitals Temperature (Temporal Artery) 36.3 ???C Heart Rate (Peripheral) 60 Respiratory Rate 20 Blood Pressure 130/84 Height 158.0 cm Height 62 in Weight 85.2 kg Weight 187.834 lb BMI 34.13 What to do next Scheduled Follow-Up Appointments Sunday2025 9:30 AM EST With: Where: [address] [address]- Sunday2025 10:20 AM EST With: Camila Max Where: [address] [address]- Medications What How Much When Instructions Unchanged amlodipine (amLODIPine 5 mg Tab) 1 Tablets By Mouth Every day Duration: 90 Days Unchanged calcium carbonate (calcium (as carbonate) 600 mg oral tablet) 2 Tablets By Mouth Every day Duration: 90 Days Unchanged ergocalciferol (Vitamin D 50,000 intl units (1.25 mg) oral capsule) 1 Capsules By Mouth Every week Unchanged lactobacillus acidophilus (Acidophilus Probiotic Blend) 1 Capsules By Mouth 2 times a day Allergies No Known Allergies Problems Ongoing - Any problem that you are currently receiving treatment for. Excessive sweating Flank pain Ganglion cyst of dorsum of right wrist Hair thinning Hypercholesteremia Hypertension Lipoma of back Mass of soft tissue of upper arm S/P cholecystectomy Skin texture changes Wart of hand Patient Survey You may receive a survey via text or e-mail asking about your office visit. Please share your experience with us by completing your survey. We appreciate your feedback and thank you for choosing us for your care. Patient Portal You may access all of your results and other medical record information on our secure patient portal. If you are not signed up for this yet, please contact [employer] at [phone] to get signed up today. Language Information Language assistance services are available as needed. Normal [facility] CMPon 10-14-2024 Albumin [Mass/Vol] 4.2 g/dL Normal 3.3-5.0 [facility] Comment on above: Performed By: #### 2 [id number] #### [facility] [address] [place] [address] Albumin/Globulin [Mass ratio] 1.8 {ratio} Normal 1.1-2.2 [facility] Comment on above: Performed By: #### 2 [id number] #### [facility] [address] [place] [address] Alk Phos 87 Int._Unit/L Normal 21-98 [facility] Comment on above: Performed By: #### 2 [id number] #### [facility] [address] [place] [address] ALT 23 Int._Unit/L Normal 6-46 [facility] Comment on above: Performed By: #### 2 [id number] #### [facility] [address] [place] [address] Anion gap [Moles/Vol] 9 mmol/L Normal 6-16 [facility] Comment on above: Performed By: #### 2 [id number] #### [facility] [address] [place] [address] AST 26 Int._Unit/L Normal 5-43 [facility] Comment on above: Performed By: #### 2 [id number] #### [facility] [address] [place] [address] Bili Total 0.7 mg/dL Normal 0.0-1.1 [facility] Comment on above: Performed By: #### 2 [id number] #### [facility] [address] [place] [address] BUN/Creat Ratio 27 No Units High 10-20 [facility] Comment on above: Performed By: #### 2 [id number] #### [facility] [address] [place] [address] Calcium [Mass/Vol] 9.8 mg/dL Normal 8.9-11.1 [facility] Comment on above: Performed By: #### 2 [id number] #### [facility] [address] [place] [address] Chloride [Moles/Vol] 106 mmol/L Normal 101-111 [facility] Comment on above: Performed By: #### 2 [id number] #### [facility] [address] [place] [address] CO2 [Moles/Vol] 28 mmol/L Normal 21-31 [facility] Comment on above: Performed By: #### 2 [id number] #### [facility] [address] [place] [address] Creatinine [Mass/Vol] 0.6 mg/dL Normal 0.5-1.3 [facility] Comment on above: Performed By: #### 2 [id number] #### [facility] [address] [place] [address] Globulin (S) [Mass/Vol] 2.3 g/dL Normal 1.4-4.0 [facility] Comment on above: Performed By: #### 2 [id number] #### [facility] [address] [place] [address] Glucose [Mass/Vol] 92 mg/dL Normal 55-199 [facility] Comment on above: Performed By: #### 2 [id number] #### [facility] [address] [place] [address] Potassium [Moles/Vol] 4.2 mmol/L Normal 3.5-5.3 [facility] Comment on above: Performed By: #### 2 [id number] #### [facility] [address] [place] [address] Protein [Mass/Vol] 6.5 g/dL Normal 6.0-7.8 [facility] Comment on above: Performed By: #### 2 [id number] #### [facility] [address] [place] [address] Sodium [Moles/Vol] 139 mmol/L Normal 135-145 [facility] Comment on above: Performed By: #### 2 [id number] #### [facility] [address] [place] [address] Urea nitrogen [Mass/Vol] 16 mg/dL Normal 5-21 [facility] Comment on above: Performed By: #### 2 [id number] #### [facility] [address] [place] [address] Family Medicine Office/Clini c Noteon 10-14-2024 Family Medicine Office/Clinic Note Family Medicine Office/Clinic Note HPI Staff Micheal is a 84 year old female presenting with occasional SOB and sweating Noticed a couple weeks ago Her sweating is a down pour of sweat last episode a couple weeks ago just sitting there she sweats SOB comes and goes, most of time when she stands up, refills on Vitamin D History of Present Illness pt presents today c/o episodes of excessive sweating. Review of Systems PHQ Score Initial Depression Screen Score: 0 SCORE Physical Exam Vitals & Measurements T: 36.3 ???C(Temporal Artery) HR: 60(Peripheral) RR: 20 BP: 130/84 SpO2: 96% HT: 158.0 cm HT: 62 in WT: 85.2 kg WT: 187.834 lb BMI: 34.13 General: alert, no acute distress ENMT: oral mucosa moist, no pharyngeal erythema or exudate Cardiovascular: regular rate and rhythm, normal peripheral perfusion Respiratory: Lungs CTA, respirations non labored Extremities: no deformity, no trauma Neurological: oriented x 4, LOC appropriate for age, CN II-XII intact, motor strength equal & normal bilaterally, speech normal lump right upper arm (u/s suggestive of lipoma) Assessment/Plan 1. Excessive sweating (R61: Generalized hyperhidrosis) a few weeks ago she had a few episodes of excessive sweating. 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 denies chest pain or dizziness when having sweating episodes. will check labs today/ vitals WNL. RTC as needed Ordered: Comprehensive Metabolic Panel Free T4 [facility] Referral T3 Free Thyroid Stimulating Hormone Vitamin D 25 Hydroxy 2. Hair thinning (L65.9: Nonscarring hair loss, unspecified) will check thyroid levels today Ordered: Comprehensive Metabolic Panel Free T4 [facility] Ambulatory Referral T3 Free Thyroid Stimulating Hormone Vitamin D 25 Hydroxy 3. Flank pain (R10.9: Unspecified abdominal pain) a few weeks ago she was having right flank pain. u/a in office negative for blood. Ordered: [facility] Amb[facility] Referral 4. Lipoma of arm (D17.20: Benign lipomatous neoplasm of skin and subcutaneous tissue of unspecified limb) pt is requesting referral to to have lipoma removed from rightr upper arm. patient states she fears she has been chipped . when she was given a vaccine in that arm. much reassurance provided that she does not have a chip in her arm. Ordered: [facility] Referral 5. Non-smoker (Z78.9: Other specified health status) continue not smoking Ordered: Body Mass Index (BMI) documented 3008F Comprehensive Metabolic Panel Current tobacco non-user 1036F Depression Screening Negative 3352F Free T4 [facility] [facility] [place] Referral Influenza immunization status assessed 1030F Medication list documented in medical record 1159F Patient screen for fall risk: no falls in last year or 1 fall with no injury in last year 1101F Review of all meds by a prescribing practitioner or clinical pharmacist documented in EHR 1160F T3 Free Thyroid Stimulating Hormone Vitamin D 25 Hydroxy 6. BMI 34.0-34.9,adult, (Z68.34: Body mass index [BMI] 34.0-34.9, adult)Body mass index [BMI] 34.0-34.9, adult BMI education given Ordered: Body Mass Index (BMI) documented 3008F Comprehensive Metabolic Panel Current tobacco non-user 1036F Depression Screening Negative 3352F Free T4 Influenza immunization status assessed 1030F Medication list documented in medical record 1159F Patient screen for fall risk: no falls in last year or 1 fall with no injury in last year 1101F Review of all meds by a prescribing practitioner or clinical pharmacist documented in EHR 1160F T3 Free Thyroid Stimulating Hormone Vitamin D 25 Hydroxy 7. Class 1 obesity due to excess calories with body mass index (BMI) of 34.0 to 34.9 in adult (E66.811: Obesity, class 1) see above Ordered: Body Mass Index (BMI) documented 3008F Comprehensive Metabolic Panel Current tobacco non-user 1036F Depression Screening Negative 3352F Free T4 Influenza immunization status assessed 1030F Medication list documented in medical record 1159F Patient screen for fall risk: no falls in last year or 1 fall with no injury in last year 1101F Review of all meds by a prescribing practitioner or clinical pharmacist documented in EHR 1160F T3 Free Thyroid Stimulating Hormone Vitamin D 25 Hydroxy Other obesity due to excess calories (E66.09: Other obesity due to excess calories) Follow-up No qualifying data available Problem List/Past Medical History Ongoing Excessive sweating Flank pain Ganglion cyst of dorsum of right wrist Hair thinning Hypercholesteremia Hypertension Lipoma of arm Lipoma of back Mass of soft tissue of upper arm S/P cholecystectomy Skin texture changes Wart of hand Historical No qualifying data Procedure/Surgical History Cholecystectomy (2023), Ankle, Bowel, Cataract, Finger, Knee replacement, Stomach. Medications Acidophilus Pro (more content not included)... Normal [facility] Comment on above: Result Comment: Elec tronically Signed By: Camila Max\.br\Date and Time Signed: 10/14/24 09:31 EDT Free T4on 10-14-2024 Free T4 [Mass/Vol] 0.87 ng/dL Normal 0.58-1.64 [facility] Comment on above: Performed By: #### 2 [id number] #### [facility] [address] [place] [address] TSHon 10-14-2024 TSH Qn 0.08 m[IU]/L Low 0.34-5.60 [facility] Comment on above: Performed By: #### 2 [id number] #### [facility] [address] [place] [address] Vitamin D 25 Hydroxyon 10-14 Vitamin D 25 Hydroxy 42.9 ng/mL Normal 30.0-100.0 [facility] Comment on above: Performed By: #### 5 [id number] #### [facility] [address] [place] [address] eGFRon 10-14-2024 eGFR 89 mL/min/1.73 m2 Normal >=59 [facility] Comment on above: Performed By: #### 1 [id number] #### [facility] [address] [place] [address] LG Jt Injection/Arthrocentes is: L kneeon 06-13-2024 Luis Felipe Lopes M D 06/13/2024 10:56 AM LG Jt Injection/Arthrocente sis: L knee Performed by: Luis Felipe Lopes MD Authorized by: Luis Felipe Lopes MD CPT 02047 - Large Joint Arthrocentesis: Consent given by: Patient Time out: Immediately prior to the procedure a time out was called Physician or proceduralist has discussed critical or nonroutine steps, procedure duration and anticipated blood loss: Yes Supporting Documentation: Indications: Pain Procedure Details: Location: Knee Site: L knee Prep: patient was prepped and draped in usual sterile fashion Needle size: 22 G Approach: Anterolateral Medications: 80 mg triamcinolone acetonide 40 mg/mL Anesthetic used: Bupivacaine 0.5% Anesthetic amount (mL): 2 Patient tolerance: Patient tolerated the procedure well with no immediate complications [facility] XR KNEES STANDING BILATERAL AP/ LAT EACHon 06-13-2024 XR KNEES STANDING BILATERAL AP/ LAT EACH Multiple radiographic views were obtained and reviewed of the Right knee. 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 There are no obvious signs of fracture, significant polyethylene wear, radiolucent lines about the prosthesis, failure, or other obvious abnormality . Multiple radiographic views were obtained and reviewed of the Left knee. There is arthritic change present tri-compartmental with varus overall alignment. The arthritic change is moderate with associated joint space narrowing, subchondral sclerosis, and osteophyte formation present. There is no obvious fracture or other osseous abnormality present Dictated by: LUIS FELIPE LOPES on SunJun 13, 2024 10:52:24 AM EDT Transcribed by: LUIS FELIPE LOPES on SunJun 13, 2024 10:52:24 AM EDT Finalized by: LUIS FELIPE LOPES on SunJun 13, 2024 10:52:24 AM EDT [facility] Comment on above: Order Comment: Injur y/Trauma or Illness?:Illness/Other How long have you had these symptoms (acute/chronic)?:Unknown Reason for exam?:na History of cancer?:na Surgeries, chemotherapy, or radiation?:na Type of Exam?:Unknown Additional signs and symptoms?:na XR LUMBAR SPINE 2-3 VIEWS (S TANDARD)on 06-13-2024 XR LUMBAR SPINE 2-3 VIEWS (STANDARD) AP lateral views lumbar spine show multilevel degenerative change with mild L4-L5 spondylolisthesis Dictated by: LUIS FELIPE LOPES on SunJun 13, 2024 10:52:43 AM EDT Transcribed by: LUIS FELIPE LOPES on SunJun 13, 2024 10:52:43 AM EDT Finalized by: LUIS FELIPE LOPES on SunJun 13, 2024 10:52:43 AM EDT [facility] Comment on above: Order Comment: Injur y/Trauma or Illness?:Illness/Other How long have you had these symptoms (acute/chronic)?:Unknown Reason for exam?:NA History of cancer?:na Surgeries, chemotherapy, or radiation?:na Type of Exam?:Unknown Additional signs and symptoms?:NA Family Medicine Office/Clini c Noteon 04-25-2024 Family [...] disorders) u/s right upper arm faxed to [facility]. will refer to general surgery if [...] 08/07/2013 Recorded tetanus-diphtheria toxoids 03/19/2004 Recorded Normal [facility] Comment on above: Result Comment: Elec tronically Signed By: Camila Max\.br\Date and Time Signed: 04/25/24 12:52 EST Ambulatory [...] Appointments Sunday2025 9:30 AM EST With: Where: [place] [id number]- Sunday2025 10:20 AM EST With: Camila Max Where: [address] [id number]- Medications What How Much When Instructions Unchanged [...] or d (more content not included)... Normal [facility] CHEMISTRYOrdered By: SYSTEM SYSTEM on 04-10-2024 Albumin [Mass/Vol] 4.2 g/dL Normal 3.3 - 5.0 gm/dL Remisol Chem Albumin/Globulin [Mass ratio] 2.0 {ratio} Normal [...] Bilirubin [Mass/Vol] 0.6 mg/dL Normal 0.0 - 1 .1 mg/dL [facility] Calcium [Mass/Vol] 9.6 mg/dL Normal 8.9 - 11. 1 mg/dL [facility] Chloride [Moles/Vol] 104 mmol/L Normal 101 - 1 11 mmol/L [facility] Cholesterol [Mass/Vol] 221 mg/dL [...] 28 mmol/L Normal 21 - 31 mmol/L [facility] Creatinine [Mass/Vol] 0.7 mg/dL Normal 0.5 - 1.3 mg/dL [facility] eGFR 86 mL/min/1.73 m2 Normal >=59mL/min /1 .73 m2 [facility] Globulin (S) [Mass/Vol] 2.1 g/dL Normal 1.4 - 4.0 gm/dL [facility] Glucose [Mass/Vol] 95 mg/dL Normal 55 - 199 mg/dL [facility] Potassium [Moles/Vol] 4.4 mmol/L Normal 3.5 - 5.3 mmol/L [facility] Protein [Mass/Vol] 6.3 g/dL Normal 6.0 - 7.8 gm/dL [facility] Sodium [Moles/Vol] 138 mmol/L Normal 135 - 145 mmol/L [facility] Triglyceride [Mass/Vol] 69 mg/dL Normal <=149mg/dL [facility] TSH Qn 0.50 m[IU]/L Normal 0.34 - 5.60 mcIU/mL [facility] Urea nitrogen [Mass/Vol] 20 mg/dL Normal 5 - 21 mg/dL [facility] Urea nitrogen/Creatinine [Mass ratio] 29 mg/mg High 10 - 20 [facility] CMPon 04-10-2024 Albumin [Mass/Vol] 4.2 g/dL Normal 3.3-5.0 [facility] Comment on above: Performed By: #### 2 [id number] #### [facility] [address] [place] [address] Albumin/Globulin (S) [Mass conc ratio] 2.0 Normal 1.1-2.2 [facility] Comment on above: Performed By: #### 2 [id number] #### [facility] [address] [place] [address] ALP [Catalytic activity/Vol] 86 Int._Unit/L Normal 21-98 [facility] Comment on above: Performed By: #### 2 [id number] #### [facility] [address] [place] [address] ALT No additional P-5'-P [Catalytic activity/Vol] 15 Int._Unit/L Normal 6-46 [facility] Comment on above: Performed By: #### 2 [id number] #### [facility] [address] [place] [address] Anion gap [Moles/Vol] 10 mmol/L Normal 6-16 [facility] Comment on above: Performed By: #### 2 [id number] #### [facility] [address] [place] [address] AST [Catalytic activity/Vol] 18 Int._Unit/L Normal 5-43 [facility] Comment on above: Performed By: #### 2 [id number] #### [facility] [address] [place] [address] Bilirubin [Mass/Vol] 0.6 mg/dL Normal 0.0-1.1 [facility] Comment on above: Performed By: #### 2 [id number] #### [facility] [address] [place] [address] Calcium [Mass/Vol] 9.6 mg/dL Normal 8.9-11.1 [facility] Comment on above: Performed By: #### 2 [id number] #### [facility] [address] [place] [address] Chloride [Moles/Vol] 104 mmol/L Normal 101-111 [facility] Comment on above: Performed By: #### 2 [id number] #### [facility] [address] [place] [address] CO2 [Moles/Vol] 28 mmol/L Normal 21-31 [facility] Comment on above: Performed By: #### 2 [id number] #### [facility] [address] [place] [address] Creatinine [Mass/Vol] 0.7 mg/dL Normal 0.5-1.3 [facility] Comment on above: Performed By: #### 2 [id number] #### [facility] [address] [place] [address] Globulin (S) [Mass/Vol] 2.1 g/dL Normal 1.4-4.0 [facility] Comment on above: Performed By: #### 2 [id number] #### [facility] [address] [place] [address] Glucose [Mass/Vol] 95 mg/dL Normal 55-199 [facility] Comment on above: Performed By: #### 2 [id number] #### [facility] [address] [place] [address] Potassium [Moles/Vol] 4.4 mmol/L Normal 3.5-5.3 [facility] Comment on above: Performed By: #### 2 [id number] #### [facility] [address] [place] [address] Protein [Mass/Vol] 6.3 g/dL Normal 6.0-7.8 [facility] Comment on above: Performed By: #### 2 [id number] #### [facility] [address] [place] [address] Sodium [Moles/Vol] 138 mmol/L Normal 135-145 [facility] Comment on above: Performed By: #### 2 [id number] #### [facility] [address] [place] [address] Urea nitrogen [Mass/Vol] 20 mg/dL Normal 5-21 [facility] Comment on above: Performed By: #### 2 [id number] #### [facility] [address] [place] [address] Urea nitrogen/Creatinine [Mass ratio] 29 No Units High 10-20 [facility] Comment on above: Performed By: #### 2 [id number] #### [facility] [address] [place] [address] Family Medicine Office/Clini c Noteon 04-10-2024 Family [...] of clutter to prevent tripping and/or falling. [place] Advance Directives reviewed. Documents remain at home [...] DM s (more content not included)... Normal [facility] Comment on above: Result Comment: Elec tronically Signed By: Camila Max\.br\Date and Time Signed: 04/10/24 12:37 EST\.br\Electronically Co-Signed By: Shabnam Barrientos.br\Date and Time Co-Signed: 04/10/24 12:05 EST Family [...] E&M of Est. Patient Low 20-29 Min 80153 Lipid Panel Thyroid Stimulating Hormone 2. S/P [...] E&M of Est. Patient Low 20-29 Min 79076 Lipid Panel Thyroid Stimulating Hormone 3. Hypercholesteremia (E78.00: Pure hypercholesterolemia, unspecified) lipid panel drawn in office today Ordered: Comprehensive Metabolic Panel E&M of Est. Patient Low 20-29 Min 48183 Lipid Panel Thyroid Stimulating Hormone 4. BMI 35.0-35.9,adult (Z68.35: Body mass index [BMI] 35.0-35.9, adult) BMI education given Ordered: Comprehensive Metabolic Panel E&M of Est. Patient Low 20-29 Min 21888 Lipid Panel Thyroid Stimulating Hormone 5. Non-smoker (Z78.9: Other specified health status) continue not smoking Ordered: Comprehensive Metabolic Panel E&M of Est. Patient Low 20-29 Min 87304 Lipid Panel Thyroid Stimulating Hormone Follow-up No [...] 08/07/2013 Recorded tetanus-diphtheria toxoids 03/19/2004 Recorded Normal [facility] Comment on above: Result Comment: Elec tronically Signed By: Camila Max.br\Date and Time Signed: 04/10/24 10:38 EST Lipid Panelon 04-10-2024 Cholesterol [Mass/Vol] 221 mg/dL High 120-200 [facility] Comment on above: Performed By: #### 2 [id number] #### [facility] [address] [place] [address] Cholesterol in HDL [Mass/Vol] 56 mg/dL Invalid Interpretation Code [facility] Comment on above: Result Comment: '>= 60 LOW RISK' '<= 40 HIGH RISK' Performed By: #### 2 [id number] #### [facility] [address] [place] [address] Cholesterol in LDL [Mass/Vol] 159 mg/dL High <=129 [facility] Comment on above: Performed By: #### 2 [id number] #### [facility] [address] [place] [address] Cholesterol in VLDL [Mass/Vol] 14 mg/dL Normal 7-40 [facility] Comment on above: Performed By: #### 2 [id number] #### [facility] [address] [place] [address] Triglyceride [Mass/Vol] 69 mg/dL Normal <=149 [facility] Comment on above: Performed By: #### 2 [id number] #### [facility] [address] [place] [address] TSHon 04-10-2024 TSH Qn 0.50 m[IU]/L Normal 0.34-5.60 [facility] Comment on above: Performed By: #### 2 [id number] #### [facility] [address] [place] [address] eGFRon 04-10-2024 eGFR 86 mL/min/1.73 m2 Normal >=59 [facility] Comment on above: Performed By: #### 1 [id number] #### [facility] [address] [place] [address] C DIFFICILE BY PCRon 024 C. difficile toxin genes KELVIN+probe Ql (Stl) TOXIGENIC C DIFF Positive (qualifier value) 027 NAP1 Negative (qualifier value) Normal PRNEG [facility] Comment on above: Performed By: #### 5 [id number] #### [facility] ([id number]) [address] [place] [address] Cult,Aerobe/Anaerobeon 08-05 Cult,Aerobe/Anaerobe Specimen Descriptio n .ABDOMEN Direct Exam MANY NEUTROPHILS MODERATE GRAM POSITIVE COCCI IN PAIRS MODERATE GRAM NEGATIVE RODS Culture BACTEROIDES THETAIOTAOMICRON MODERATE GROWTH BETA LACTAMASE POSITIVE Identificati on by MALDI-TOF BACTEROIDES STERCORIS MODERATE GROWTH BETA LACTAMASE POSITIVE Identification by MALDI-TOF NO AEROBIC ORGANISMS ISOLATED Report Status FINAL 08/06/2023 Abnormal [facility] Comment on above: Performed By: #### A ANC #### [facility] [address] [place] [address] Quality Assurance Nurse: Salinas Escalante MD [facility] [address] [place] [address] Quality Assurance Nurse: Willy Henson MD CBC auto differentialon 07-17 Basophils (Bld) [#/Vol] 0.12 10*3/uL [facility] Basophils/100 WBC (Bld) 1 % 0 - 2 % [facility] Eosinophils (Bld) [#/Vol] 0.00 10*3/uL [facility] Eosinophils/100 WBC (Bld) 0 % Low 1 - 4 % [facility] Erythrocyte distribution width (RBC) [Ratio] 12.5 % 11.8 - 14.4 % [facility] Hematocrit (Bld) [Volume fraction] 35.0 % Low 36.3 - 47.1 % [facility] Hemoglobin (Bld) [Mass/Vol] 10.9 g/dL Low 11.9 - 15.1 g/dL [facility] Immature granulocytes (Bld) [#/Vol] 0.12 10*3/uL [facility] Immature granulocytes/100 WBC (Bld) 1 % High 0 [facility] Interpretation and review of laboratory results Abnormal [facility] Lymphocytes/100 WBC (Bld) 74 % High 24 - 43 % [facility] Lymphocytes/100 WBC (Bld) 8.73 % High [facility] MCH (RBC) [Entitic mass] 28.6 pg 25.2 - 33.5 pg [facility] MCHC (RBC) [Mass/Vol] 31.1 g/dL 28.4 - 34.8 g/dL [facility] MCV (RBC) [Entitic vol] 91.9 fL 82.6 - 102.9 fL [facility] Monocytes/100 WBC (Bld) 4 % 3 - 12 % [facility] Monocytes/100 WBC (Bld) 0.47 % [facility] Morphology Ki (Bld) [Interp] Normal [facility] Neutrophils/100 WBC (Bld) 20 % Low 36 - 65 % [facility] Nucleated RBC/100 WBC (Bld) [Ratio] 0.0 % 0.0 per 100 WBC [facility] Platelet mean volume (Bld) [Entitic vol] 10.8 fL 8.1 - 13.5 fL [facility] Platelets (Bld) [#/Vol] 240 10*3/uL [facility] RBC (Bld) [#/Vol] 3.81 10*6/uL Low 3.95 - 5.1 1 m/uL [facility] Segmented neutrophils/100 WBC (Bld) 2.36 % [facility] WBC other (Bld) [#/Vol] 11.8 High [facility] CBC with Diffon 08-03-2023 Abs. Basophil 0.12 k/uL Normal 0.0-0.2 [facility] Comment on above: Performed By: #### C DP, CMPX #### [facility] [address] [place] [address] Dr. [place], [facility] Quality Assurance Nurse: Willy Henson MD Abs.Imm.Granulocyte 0.12 k/uL Normal 0.00-0.30 [facility] Comment on above: Performed By: #### C DP, CMPX #### [facility] [address] [place], [facility] Quality Assurance Nurse: Willy Henson MD Abs.Neutrophil (Seg) 2.36 k/uL Normal 1.50-8.10 [facility] Comment on above: Performed By: #### C DP, CMPX #### [facility] [address] [place] [address] Quality Assurance Nurse: Willy Henosn MD Basophils/100 WBC (Bld) 1 % Normal 0-2 [facility] Comment on above: Performed By: #### C DP, CMPX #### [facility] [address] [place], [place] [address] Quality Assurance Nurse: Willy Henson MD Eosinophils (Bld) [#/Vol] 0.00 10*3/uL Normal 0.00-0.44 [facility] Comment on above: Performed By: #### C DP, CMPX #### [facility] [address] [place], [place] [address] Quality Assurance Nurse: Willy Henson MD Eosinophils/100 WBC (Bld) 0 % Low 1-4 [facility] Comment on above: Performed By: #### C DP, CMPX #### [facility] [address] [place] [address] Quality Assurance Nurse: Willy Henson MD Immature granulocytes/100 WBC (Bld) 1 % High 0 [facility] Comment on above: Performed By: #### C DP, CMPX #### [facility] [address] [place], [facility] Quality Assurance Nurse: Willy Henson MD Lymphocytes (Bld) [#/Vol] 8.73 10*3/uL High 1.10-3.70 [facility] Comment on above: Performed By: #### C DP, CMPX #### [address] [place] [id number] Quality Assurance Nurse: Willy Henson MD Lymphocytes/100 WBC (Bld) 74 % High 24-43 [facility] Comment on above: Performed By: #### C DP, CMPX #### [facility] [address] [place], [facility] Quality Assurance Nurse: Willy Henson MD Monocytes (Bld) [#/Vol] 0.47 10*3/uL Normal 0.10-1.20 [facility] Comment on above: Performed By: #### C DP, CMPX #### [facility] [address] [place] [address] Quality Assurance Nurse: Willy Henson MD Monocytes/100 WBC (Bld) 4 % Normal 3-12 [facility] Comment on above: Performed By: #### C DP, CMPX #### [facility] [address] [place], [place] [id number] Quality Assurance Nurse: Willy Henson MD Morphology Ki (Bld) [Interp] Normal Normal [facility] Comment on above: Performed By: #### C DP, CMPX #### [facility] [address] [place] [address] Quality Assurance Nurse: Willy Henson MD Neutrophil (Seg) 20 % Low 36-65 [facility] Comment on above: Performed By: #### C DP, CMPX #### [facility] [address] [place] [address] [place] [address] Quality Assurance Nurse: Willy Henson MD Erythrocyte distribution width (RBC) [Ratio] 12.5 % Normal 11.8-14.4 [facility] Comment on above: Performed By: #### C DP, CMPX #### [address] [place] [address] Quality Assurance Nurse: Willy Henson MD Hematocrit (Bld) [Volume fraction] 35.0 % Low 36.3-47.1 [facility] Comment on above: Performed By: #### C DP, CMPX #### [facility] [address] [place] [address] Dr. [place], [place] [id number] Quality Assurance Nurse: Willy Henson MD Hemoglobin (Bld) [Mass/Vol] 10.9 g/dL Low 11.9-15.1 [facility] Comment on above: Performed By: #### C DP, CMPX #### [address] [place] [address] Quality Assurance Nurse: Willy Henson MD MCH (RBC) [Entitic mass] 28.6 pg Normal 25.2-33.5 [facility] Comment on above: Performed By: #### C DP, CMPX #### [facility] [address] [place], [facility] Quality Assurance Nurse: Willy Henson MD MCHC (RBC) [Mass/Vol] 31.1 g/dL Normal 28.4-34.8 [facility] Comment on above: Performed By: #### C DP, CMPX #### [facility] [address] [place], [facility] Quality Assurance Nurse: Willy Henson MD MCV (RBC) [Entitic vol] 91.9 fL Normal 82.6-102.9 [facility] Comment on above: Performed By: #### C DP, CMPX #### [address] [place], [facility] Quality Assurance Nurse: Willy Henson MD NRBC Automated 0.0 per 100 WBC Normal 0.0 [facility] Comment on above: Performed By: #### C DP, CMPX #### [address] [place], [facility] Quality Assurance Nurse: Willy Henson MD Platelet mean volume (Bld) [Entitic vol] 10.8 fL Normal 8.1-13.5 [facility] Comment on above: Performed By: #### C DP, CMPX #### [address] [place], [place] [address] Quality Assurance Nurse: Willy Henson MD Platelets (Bld) [#/Vol] 240 10*3/uL Normal 138-453 [facility] Comment on above: Performed By: #### C DP, CMPX #### [facility] [address] [place] [address] Quality Assurance Nurse: Willy Henson MD RBC (Bld) [#/Vol] 3.81 10*6/uL Low 3.95-5.11 [facility] Comment on above: Performed By: #### C DP, CMPX #### [facility] [address] [place], [place] [id number] Quality Assurance Nurse: Willy Henson MD WBC (Bld) [#/Vol] 11.8 10*3/uL High 3.5-11.3 [facility] Comment on above: Performed By: #### C DP, CMPX #### [facility] [address] [place], [place] [id number] Quality Assurance Nurse: Willy Henson MD Comp Metabolic Pr/rfx MGon 0 - Albumin [Mass/Vol] 3.4 g/dL Low 3.5-5.2 [facility] Comment on above: Performed By: #### C DP, CMPX #### [facility] [address] [place] [address] Dr[place], [place] [id number] Quality Assurance Nurse: Willy Henson MD Albumin/Glob Ratio 1.4 Normal 1.0-2.5 [facility] Comment on above: Performed By: #### C DP, CMPX #### [address] [place], [place] [id number] Quality Assurance Nurse: Willy Henson MD Alkaline Phos 105 U/L High 35-104 [facility] Comment on above: Performed By: #### C DP, CMPX #### [facility] [address] [place], [place] [address]83 Quality Assurance Nurse: Willy Henson MD ALT [Catalytic activity/Vol] 13 U/L Normal 5-33 [facility] Comment on above: Performed By: #### C DP, CMPX #### [facility] [address] [place] [address] [place] [address] Quality Assurance Nurse: Willy Henson MD Anion gap [Moles/Vol] 10 mmol/L Normal 9-17 [facility] Comment on above: Performed By: #### C DP, CMPX #### [facility] [address] [place] [id number] Quality Assurance Nurse: Willy Henson MD AST [Catalytic activity/Vol] 15 U/L Normal <32 [facility] Comment on above: Performed By: #### C DP, CMPX #### [facility] [address] [place], [place] [phone] Quality Assurance Nurse: Willy Henson MD Bilirubin [Mass/Vol] 0.2 mg/dL Low 0.3-1.2 [facility] Comment on above: Performed By: #### C DP, CMPX #### [facility] [address] [place], [place] [phone] Quality Assurance Nurse: Willy Henson MD BUN/CRE Ratio 21 High 9-20 [facility] Comment on above: Performed By: #### C DP, CMPX #### [facility] [address] [place], [place] [id number] Quality Assurance Nurse: Willy Henson MD Calcium [Mass/Vol] 9.1 mg/dL Normal 8.6-10.4 [facility] Comment on above: Performed By: #### C DP, CMPX #### [facility] [address] [place], [place] [id number] Quality Assurance Nurse: Willy Henson MD Chloride [Moles/Vol] 107 mmol/L Normal 98-107 [facility] Comment on above: Performed By: #### C DP, CMPX #### [facility] [address] [place], [place] [id number] Quality Assurance Nurse: Willy Henson MD CO2 [Moles/Vol] 23 mmol/L Normal 20-31 [facility] Comment on above: Performed By: #### C DP, CMPX #### [facility] [address] [place] [address] Quality Assurance Nurse: Willy Henson MD Creatinine [Mass/Vol] 0.8 mg/dL Normal 0.5-0.9 [facility] Comment on above: Performed By: #### C DP, CMPX #### [facility] [address] [place] [address] Quality Assurance Nurse: Willy Henson MD GFR/1.73 sq M.predicted among non-blacks MDRD (S/P/Bld) [Vol rate/Area] 74 mL/min/{1.73_m2} Normal >60 [facility] Comment on above: Result Comment: These results [...] Performed By: #### C DP, CMPX #### [facility] [address] [place] [address] [place] [address] Quality Assurance Nurse: Willy Henson MD Glucose [Mass/Vol] 91 mg/dL Normal 70-99 [facility] Comment on above: Performed By: #### C DP, CMPX #### [address] [place] [address] Quality Assurance Nurse: Willy Henson MD Potassium [Moles/Vol] 4.2 mmol/L Normal 3.7-5.3 [facility] Comment on above: Performed By: #### C DP, CMPX #### [address] [place] [address] Quality Assurance Nurse: Willy Henson MD Protein [Mass/Vol] 5.9 g/dL Low 6.4-8.3 [facility] Comment on above: Performed By: #### C DP, CMPX #### [address] [place] [address] Quality Assurance Nurse: Willy Henson MD Sodium [Moles/Vol] 140 mmol/L Normal 135-144 [facility] Comment on above: Performed By: #### C DP, CMPX #### [facility] [address] [place] [address] Quality Assurance Nurse: Willy Henson MD Urea nitrogen [Mass/Vol] 17 mg/dL Normal 8-23 [facility] Comment on above: Performed By: #### C DP, CMPX #### [facility] [address] [place] [address] Quality Assurance Nurse: Willy Henson MD Comprehensive Metabolic Pane l w/ Reflex to MGon 08-03-2023 Albumin [Mass/Vol] 3.4 g/dL Low 3.5 - 5.2 g/dL [facility] Albumin/Globulin [Mass ratio] 1.4 {ratio} 1.0 - 2.5 [facility] ALP [Catalytic activity/Vol] 105 U/L High 35 - 104 U/L [facility] ALT [Catalytic activity/Vol] 13 U/L 5 - 33 U/L [facility] Anion gap [Moles/Vol] 10 mmol/L 9 - 17 mmol/L [facility] AST [Catalytic activity/Vol] 15 U/L NINF - 32 U/L [facility] Bilirubin [Mass/Vol] 0.2 mg/dL Low 0.3 - 1 .2 mg/dL [facility] Calcium [Mass/Vol] 9.1 mg/dL 8.6 - 10. 4 mg/dL [facility] Chloride [Moles/Vol] 107 mmol/L 98 - 10 7 mmol/L [facility] CO2 [Moles/Vol] 23 mmol/L 20 - 31 mmol/L [facility] Creatinine [Mass/Vol] 0.8 mg/dL 0.5 - 0.9 mg/dL [facility] Est, Glom Filt Rate 74 - [facility] Comment on above: These results are [...] [Mass/Vol] 91 mg/dL 70 - 99 mg/dL [facility] Interpretation and review of laboratory results Abnormal [facility] Potassium [Moles/Vol] 4.2 mmol/L 3.7 - 5.3 mmol/L [facility] Protein [Mass/Vol] 5.9 g/dL Low 6.4 - 8.3 g/dL [facility] Sodium [Moles/Vol] 140 mmol/L 135 - 144 mmol/L [facility] Urea nitrogen [Mass/Vol] 17 mg/dL 8 - 23 mg/dL [facility] Urea nitrogen/Creatinine [Mass ratio] 21 mg/mg High 9 - 20 [facility] EKG Rhythm Stripon [facility] CBC auto differentialon 07-17 Basophils (Bld) [#/Vol] 0.00 10*3/uL [facility] Basophils/100 WBC (Bld) 0 % 0 - 2 % [facility] Eosinophils (Bld) [#/Vol] 0.00 10*3/uL [facility] Eosinophils/100 WBC (Bld) 0 % Low 1 - 4 % [facility] Erythrocyte distribution width (RBC) [Ratio] 12.2 % 11.8 - 14.4 % [facility] Hematocrit (Bld) [Volume fraction] 30.9 % Low 36.3 - 47.1 % [facility] Hemoglobin (Bld) [Mass/Vol] 9.9 g/dL Low 11.9 - 15.1 g/dL [facility] Immature granulocytes (Bld) [#/Vol] 0.00 10*3/uL [facility] Immature granulocytes/100 WBC (Bld) 0 % 0 [facility] Interpretation and review of laboratory results Abnormal [facility] Lymphocytes/100 WBC (Bld) 56 % High 24 - 43 % [facility] Lymphocytes/100 WBC (Bld) 5.71 % High [facility] MCH (RBC) [Entitic mass] 28.6 pg 25.2 - 33.5 pg [facility] MCHC (RBC) [Mass/Vol] 32.0 g/dL 28.4 - 34.8 g/dL [facility] MCV (RBC) [Entitic vol] 89.3 fL 82.6 - 102.9 fL [facility] Monocytes/100 WBC (Bld) 8 % 3 - 12 % [facility] Monocytes/100 WBC (Bld) 0.82 % [facility] Morphology Ki (Bld) [Interp] Normal [facility] Neutrophils/100 WBC (Bld) 36 % 36 - 65 % [facility] Nucleated RBC/100 WBC (Bld) [Ratio] 0.0 % 0.0 per 100 WBC [facility] Platelet mean volume (Bld) [Entitic vol] 11.1 fL 8.1 - 13.5 fL [facility] Platelets (Bld) [#/Vol] 222 10*3/uL [facility] RBC (Bld) [#/Vol] 3.46 10*6/uL Low 3.95 - 5.1 1 m/uL [facility] Segmented neutrophils/100 WBC (Bld) 3.67 % [facility] WBC other (Bld) [#/Vol] 10.2 [facility] CBC with Diffon 08-02-2023 Abs. Basophil 0.00 k/uL Normal 0.0-0.2 [facility] Comment on above: Performed By: #### B SKYLAR CDP #### [facility] [address] [place] [address] Quality Assurance Nurse: Willy Henson MD Abs.Imm.Granulocyte 0.00 k/uL Normal 0.00-0.30 [facility] Comment on above: Performed By: #### B SKYLAR, CDP #### [facility] [address] [place], [place] [id number] Quality Assurance Nurse: Willy Henson MD Abs.Neutrophil (Seg) 3.67 k/uL Normal 1.50-8.10 [facility] Comment on above: Performed By: #### B SKYLAR, CDP #### [address] [place], [place] [id number] Quality Assurance Nurse: Willy Henson MD Basophils/100 WBC (Bld) 0 % Normal 0-2 [facility] Comment on above: Performed By: #### B SKYLAR, CDP #### [address] [place], [place] [id number] Quality Assurance Nurse: Willy Henson MD Eosinophils (Bld) [#/Vol] 0.00 10*3/uL Normal 0.00-0.44 [facility] Comment on above: Performed By: #### B SKYLAR, CDP #### [address] [place], [place] [id number] Quality Assurance Nurse: Willy Henson MD Eosinophils/100 WBC (Bld) 0 % Low 1-4 [facility] Comment on above: Performed By: #### B SKYLAR, CDP #### [address] [place], [place] [phone] Quality Assurance Nurse: Willy Henson MD Immature granulocytes/100 WBC (Bld) 0 % Normal 0 [facility] Comment on above: Performed By: #### B SKYLAR, CDP #### [address] [place], [place] [phone] Quality Assurance Nurse: Willy Henson MD Lymphocytes (Bld) [#/Vol] 5.71 10*3/uL High 1.10-3.70 [facility] Comment on above: Performed By: #### B SKYLAR, CDP #### [address] [place], [place] 5387083 Quality Assurance Nurse: Willy Henson MD Lymphocytes/100 WBC (Bld) 56 % High 24-43 [facility] Comment on above: Performed By: #### B MP, CDP #### [facility] [address] [place], [place] [id number] Quality Assurance Nurse: Willy Henson MD Monocytes (Bld) [#/Vol] 0.82 10*3/uL Normal 0.10-1.20 [facility] Comment on above: Performed By: #### B MP, CDP #### [address] [place], [place] [phone] Quality Assurance Nurse: Willy Henson MD Monocytes/100 WBC (Bld) 8 % Normal 3-12 [facility] Comment on above: Performed By: #### B MP, CDP #### [address] [place] [address] Quality Assurance Nurse: Willy Henson MD Morphology Ki (Bld) [Interp] Normal Normal [facility] Comment on above: Performed By: #### B MP, CDP #### [address] [place], [place] [phone] Quality Assurance Nurse: Willy Henson MD Neutrophil (Seg) 36 % Normal 36-65 [facility] Comment on above: Performed By: #### B MP, CDP #### [address] [place], [place] [phone] Quality Assurance Nurse: Willy Henson MD Erythrocyte distribution width (RBC) [Ratio] 12.2 % Normal 11.8-14.4 [facility] Comment on above: Performed By: #### B MP, CDP #### [address] [place], [place] [phone] Quality Assurance Nurse: Willy Henson MD Hematocrit (Bld) [Volume fraction] 30.9 % Low 36.3-47.1 [facility] Comment on above: Performed By: #### B MP, CDP #### [address] [place] [address] Quality Assurance Nurse: Willy Henson MD Hemoglobin (Bld) [Mass/Vol] 9.9 g/dL Low 11.9-15.1 [facility] Comment on above: Performed By: #### B MP, CDP #### [address] [place] [address] Quality Assurance Nurse: Willy Henson MD MCH (RBC) [Entitic mass] 28.6 pg Normal 25.2-33.5 [facility] Comment on above: Performed By: #### B MP, CDP #### [address] [place] [address] Quality Assurance Nurse: Willy Henson MD MCHC (RBC) [Mass/Vol] 32.0 g/dL Normal 28.4-34.8 [facility] Comment on above: Performed By: #### B MP, CDP #### [address] [place] [address] Quality Assurance Nurse: Willy Henson MD MCV (RBC) [Entitic vol] 89.3 fL Normal 82.6-102.9 [facility] Comment on above: Performed By: #### B MP, CDP #### [address] [place] [address] Quality Assurance Nurse: iWlly Henson MD NRBC Automated 0.0 per 100 WBC Normal 0.0 [facility] Comment on above: Performed By: #### B MP, CDP #### [address] [place] [address] Quality Assurance Nurse: Willy Henson MD Platelet mean volume (Bld) [Entitic vol] 11.1 fL Normal 8.1-13.5 [facility] Comment on above: Performed By: #### B MP, CDP #### [address] [place] [address] Quality Assurance Nurse: Willy Henson MD Platelets (Bld) [#/Vol] 222 10*3/uL Normal 138-453 [facility] Comment on above: Performed By: #### B MP, CDP #### [facility] [address] [place], [place] [phone] Quality Assurance Nurse: Willy Henson MD RBC (Bld) [#/Vol] 3.46 10*6/uL Low 3.95-5.11 [facility] Comment on above: Performed By: #### B MP, CDP #### [facility] [address] [place], [place] [phone] Quality Assurance Nurse: Willy Henson MD WBC (Bld) [#/Vol] 10.2 10*3/uL Normal 3.5-11.3 [facility] Comment on above: Performed By: #### B SKYLAR, CDP #### [facility] [address] [place], [place] [phone] Quality Assurance Nurse: Willy Henson MD Comp Metabolic Pr/rfx MGon 0 - Albumin [Mass/Vol] 3.3 g/dL Low 3.5-5.2 [facility] Comment on above: Performed By: #### B SKYLAR, CDP #### [facility] [address] [place], [place] 7286083 Quality Assurance Nurse: Willy Henson MD Albumin/Glob Ratio 1.6 Normal 1.0-2.5 [facility] Comment on above: Performed By: #### B SKYLAR, CDP #### [facility] [address] [place], [place] [phone] Quality Assurance Nurse: Willy Henson MD Alkaline Phos 102 U/L Normal 35-104 [facility] Comment on above: Performed By: #### B MP, CDP #### [facility] [address] [place], [place] 8155583 Quality Assurance Nurse: Willy Henson MD ALT [Catalytic activity/Vol] 10 U/L Normal 5-33 [facility] Comment on above: Performed By: #### B MP, CDP #### [facility] [address] [place], [place] [phone] Quality Assurance Nurse: Willy Henson MD Anion gap [Moles/Vol] 8 mmol/L Low 9-17 [facility] Comment on above: Performed By: #### B MP, CDP #### [facility] [address] [place], [place] [address] Quality Assurance Nurse: Willy Henson MD AST [Catalytic activity/Vol] 11 U/L Normal <32 [facility] Comment on above: Performed By: #### B MP, CDP #### [facility] [address] [place], [place] [phone] Quality Assurance Nurse: Willy Henson MD Bilirubin [Mass/Vol] 0.3 mg/dL Normal 0.3-1.2 [facility] Comment on above: Performed By: #### B SKYLAR, CDP #### [facility] [address] [place], [place] 1472483 Quality Assurance Nurse: Willy Henson MD BUN/CRE Ratio 26 High 9-20 [facility] Comment on above: Performed By: #### B SKYLAR, CDP #### [facility] [address] [place], [place] 0993083 Quality Assurance Nurse: Willy Henson MD Calcium [Mass/Vol] 8.8 mg/dL Normal 8.6-10.4 [facility] Comment on above: Performed By: #### B MP, CDP #### [facility] [address] [place], [place] [phone] Quality Assurance Nurse: Willy Henson MD Chloride [Moles/Vol] 107 mmol/L Normal 98-107 [facility] Comment on above: Performed By: #### B MP, CDP #### [facility] [address] [place], [place] [phone] Quality Assurance Nurse: Willy Henson MD CO2 [Moles/Vol] 24 mmol/L Normal 20-31 [facility] Comment on above: Performed By: #### B SKYLRA, CDP #### [facility] [address] [place] [address] Quality Assurance Nurse: Willy Henson MD Creatinine [Mass/Vol] 0.7 mg/dL Normal 0.5-0.9 [facility] Comment on above: Performed By: #### B SKYLAR, CDP #### [facility] [address] [place] [address] Quality Assurance Nurse: Willy Henson MD GFR/1.73 sq M.predicted among non-blacks MDRD (S/P/Bld) [Vol rate/Area] 87 mL/min/{1.73_m2} Normal >60 [facility] Comment on above: Result Comment: These results [...] Performed By: #### B SKYLAR, CDP #### [facility] [address] [place] [address] Quality Assurance Nurse: Willy Henson MD Glucose [Mass/Vol] 105 mg/dL High 70-99 [facility] Comment on above: Performed By: #### B SKYLAR, CDP #### [facility] [address] [place] [address] Quality Assurance Nurse: Willy Henson MD Potassium [Moles/Vol] 4.2 mmol/L Normal 3.7-5.3 [facility] Comment on above: Performed By: #### B SKYLAR, CDP #### [facility] [address] [place] [address] Quality Assurance Nurse: Willy Henson MD Protein [Mass/Vol] 5.4 g/dL Low 6.4-8.3 [facility] Comment on above: Performed By: #### B MP, CDP #### [facility] [address] [place], [place] 985[address]83 Quality Assurance Nurse: Willy Henson MD Sodium [Moles/Vol] 139 mmol/L Normal 135-144 [facility] Comment on above: Performed By: #### B MP, CDP #### [facility] [address] [place] [address] Quality Assurance Nurse: Willy Henson MD Urea nitrogen [Mass/Vol] 18 mg/dL Normal 8-23 [facility] Comment on above: Performed By: #### B SKYLAR, CDP #### [facility] [address] [place] [address] Quality Assurance Nurse: Willy Henson MD Comprehensive Metabolic Pane l w/ Reflex to on 08-02-2023 Albumin [Mass/Vol] 3.3 g/dL Low 3.5 - 5.2 g/dL [facility] Albumin/Globulin [Mass ratio] 1.6 {ratio} 1.0 - 2.5 [facility] ALP [Catalytic activity/Vol] 102 U/L 35 - 104 U/L [facility] ALT [Catalytic activity/Vol] 10 U/L 5 - 33 U/L [facility] Anion gap [Moles/Vol] 8 mmol/L Low 9 - 17 mmol/L [facility] AST [Catalytic activity/Vol] 11 U/L NINF - 32 U/L [facility] Bilirubin [Mass/Vol] 0.3 mg/dL 0.3 - 1 .2 mg/dL [facility] Calcium [Mass/Vol] 8.8 mg/dL 8.6 - 10. 4 mg/dL [facility] Chloride [Moles/Vol] 107 mmol/L 98 - 10 7 mmol/L [facility] CO2 [Moles/Vol] 24 mmol/L 20 - 31 mmol/L [facility] Creatinine [Mass/Vol] 0.7 mg/dL 0.5 - 0.9 mg/dL [facility] Est, Glom Filt Rate 87 - [facility] Comment on above: These results are [...] 105 mg/dL High 70 - 99 mg/dL [facility] Interpretation and review of laboratory results Abnormal [facility] Potassium [Moles/Vol] 4.2 mmol/L 3.7 - 5.3 mmol/L [facility] Protein [Mass/Vol] 5.4 g/dL Low 6.4 - 8.3 g/dL [facility] Sodium [Moles/Vol] 139 mmol/L 135 - 144 mmol/L [facility] Urea nitrogen [Mass/Vol] 18 mg/dL 8 - 23 mg/dL [facility] Urea nitrogen/Creatinine [Mass ratio] 26 mg/mg High 9 - 20 [facility] EKG Rhythm Stripon 4 [facility] CBC auto differentialon 07-17 Basophils (Bld) [#/Vol] [facility] Basophils/100 WBC (Bld) 0 % 0 - 2 % [facility] Eosinophils (Bld) [#/Vol] [facility] Eosinophils/100 WBC (Bld) 0 % Low 1 - 4 % [facility] Erythrocyte distribution width (RBC) [Ratio] 11.9 % 11.8 - 14.4 % [facility] Hematocrit (Bld) [Volume fraction] 35.6 % Low 36.3 - 47.1 % [facility] Hemoglobin (Bld) [Mass/Vol] 11.5 g/dL Low 11.9 - 15.1 g/dL [facility] Immature granulocytes (Bld) [#/Vol] 0.04 10*3/uL [facility] Immature granulocytes/100 WBC (Bld) 0 % 0 [facility] Interpretation and review of laboratory results Abnormal [facility] Lymphocytes/100 WBC (Bld) 44 % High 24 - 43 % [facility] Lymphocytes/100 WBC (Bld) 5.25 % High [facility] MCH (RBC) [Entitic mass] 29.0 pg 25.2 - 33.5 pg [facility] MCHC (RBC) [Mass/Vol] 32.3 g/dL 28.4 - 34.8 g/dL [facility] MCV (RBC) [Entitic vol] 89.7 fL 82.6 - 102.9 fL [facility] Monocytes/100 WBC (Bld) 1 % Low 3 - 12 % [facility] Monocytes/100 WBC (Bld) 0.15 % [facility] Neutrophils/100 WBC (Bld) 55 % 36 - 65 % [facility] Nucleated RBC/100 WBC (Bld) [Ratio] 0.0 % 0.0 per 100 WBC [facility] Platelet mean volume (Bld) [Entitic vol] 11.0 fL 8.1 - 13.5 fL [facility] Platelets (Bld) [#/Vol] 240 10*3/uL [facility] RBC (Bld) [#/Vol] 3.97 10*6/uL 3.95 - 5.1 1 m/uL [facility] Segmented neutrophils/100 WBC (Bld) 6.38 % [facility] WBC other (Bld) [#/Vol] 11.9 High [facility] CBC with Diffon 08-01-2023 Abs. Basophil <0.03 Normal 0.00-0.20 [facility] Comment on above: Performed By: #### C DP, CMPX #### [facility] [address] [place] [address] Quality Assurance Nurse: Willy Henson MD Abs. Eosinophil <0.03 Normal 0.00-0.44 [facility] Comment on above: Performed By: #### C DP, CMPX #### [facility] [address] [place] [address] Dr[address] [place], [place] [phone] Quality Assurance Nurse: Willy Henson MD Abs.Imm.Granulocyte 0.04 k/uL Normal 0.00-0.30 [facility] Comment on above: Performed By: #### C DP, CMPX #### [address] [place], [place] [phone] Quality Assurance Nurse: Willy Henson MD Abs.Neutrophil (Seg) 6.38 k/uL Normal 1.50-8.10 [facility] Comment on above: Performed By: #### C DP, CMPX #### [facility] [address] [place] [address] [place] [place], [place] [phone] Quality Assurance Nurse: Willy Henson MD Basophils/100 WBC (Bld) 0 % Normal 0-2 [facility] Comment on above: Performed By: #### C DP, CMPX #### [facility] [address] [place] [address] [place] [place], [place] [phone] Quality Assurance Nurse: Willy Henson MD Eosinophils/100 WBC (Bld) 0 % Low 1-4 [facility] Comment on above: Performed By: #### C DP, CMPX #### [facility] [address] [place] [address] [place] [place], [place] [phone] Quality Assurance Nurse: Willy Henson MD Erythrocyte distribution width (RBC) [Ratio] 11.9 % Normal 11.8-14.4 [facility] Comment on above: Performed By: #### C DP, CMPX #### [facility] [address] [place] [address] Dr[address] [place], [place] [phone] Quality Assurance Nurse: Willy Henson MD Hematocrit (Bld) [Volume fraction] 35.6 % Low 36.3-47.1 [facility] Comment on above: Performed By: #### C DP, CMPX #### [facility] [address] [place] [address] Dr[address] [place], [facility] Quality Assurance Nurse: Willy Henson MD Hemoglobin (Bld) [Mass/Vol] 11.5 g/dL Low 11.9-15.1 [facility] Comment on above: Performed By: #### C DP, CMPX #### [address] [place], [facility]83 Quality Assurance Nurse: Willy Henson MD Immature granulocytes/100 WBC (Bld) 0 % Normal 0 [facility] Comment on above: Performed By: #### C DP, CMPX #### [address] [place], [facility]83 Quality Assurance Nurse: Willy Henson MD Lymphocytes (Bld) [#/Vol] 5.25 10*3/uL High 1.10-3.70 [facility] Comment on above: Performed By: #### C DP, CMPX #### [address] [place], [facility]83 Quality Assurance Nurse: Willy Henson MD Lymphocytes/100 WBC (Bld) 44 % High 24-43 [facility] Comment on above: Performed By: #### C DP, CMPX #### [address] [place], [facility]83 Quality Assurance Nurse: Willy Henson MD MCH (RBC) [Entitic mass] 29.0 pg Normal 25.2-33.5 [facility] Comment on above: Performed By: #### C DP, CMPX #### [address] [place] [address] Quality Assurance Nurse: Willy Henson MD MCHC (RBC) [Mass/Vol] 32.3 g/dL Normal 28.4-34.8 [facility] Comment on above: Performed By: #### C DP, CMPX #### [facility] [address] [place], [place] [phone] Quality Assurance Nurse: Willy Henson MD MCV (RBC) [Entitic vol] 89.7 fL Normal 82.6-102.9 [facility] Comment on above: Performed By: #### C DP, CMPX #### [facility] [address] [place], [place] [phone] Quality Assurance Nurse: Willy Henson MD Monocytes (Bld) [#/Vol] 0.15 10*3/uL Normal 0.10-1.20 [facility] Comment on above: Performed By: #### C DP, CMPX #### [address] [place], [place] [phone] Quality Assurance Nurse: Willy Henson MD Monocytes/100 WBC (Bld) 1 % Low 3-12 [facility] Comment on above: Performed By: #### C DP, CMPX #### [address] [place], [place] 0598783 Quality Assurance Nurse: Willy Henson MD Neutrophil (Seg) 55 % Normal 36-65 [facility] Comment on above: Performed By: #### C DP, CMPX #### [address] [place], [place] [phone] Quality Assurance Nurse: Willy Henson MD NRBC Automated 0.0 per 100 WBC Normal 0.0 [facility] Comment on above: Performed By: #### C DP, CMPX #### [facility] [address] [place] [address] Quality Assurance Nurse: Willy Henson MD Platelet mean volume (Bld) [Entitic vol] 11.0 fL Normal 8.1-13.5 [facility] Comment on above: Performed By: #### C DP, CMPX #### [facility] [address] [place] [address] Quality Assurance Nurse: Willy Henson MD Platelets (Bld) [#/Vol] 240 10*3/uL Normal 138-453 [facility] Comment on above: Performed By: #### C DP, CMPX #### [facility] [address] [place], [place] [id number] Quality Assurance Nurse: Willy Henson MD RBC (Bld) [#/Vol] 3.97 10*6/uL Normal 3.95-5.11 [facility] Comment on above: Performed By: #### C DP, CMPX #### [facility] [address] [place], [place] [id number] Quality Assurance Nurse: Willy Henson MD WBC (Bld) [#/Vol] 11.9 10*3/uL High 3.5-11.3 [facility] Comment on above: Performed By: #### C DP, CMPX #### [facility] [address] [place] [address] [place] [place], [place] [id number] Quality Assurance Nurse: Willy Henson MD Comp Metabolic Pr/rfx MGon 0 5- Albumin [Mass/Vol] 3.5 g/dL Normal 3.5-5.2 [facility] Comment on above: Performed By: #### C DP, CMPX #### [facility] [address] [place], [place] [id number] Quality Assurance Nurse: Willy Henson MD Albumin/Glob Ratio 1.3 Normal 1.0-2.5 [facility] Comment on above: Performed By: #### C DP, CMPX #### [facility] [address] [place], [place] [id number] Quality Assurance Nurse: Willy Henson MD Alkaline Phos 129 U/L High 35-104 [facility] Comment on above: Performed By: #### C DP, CMPX #### [facility] [address] [place], [place] [id number] Quality Assurance Nurse: Willy Henson MD ALT [Catalytic activity/Vol] 11 U/L Normal 5-33 [facility] Comment on above: Performed By: #### C DP, CMPX #### [facility] [address] [place] [address] Quality Assurance Nurse: Willy Henson MD Anion gap [Moles/Vol] 11 mmol/L Normal 9-17 [facility] Comment on above: Performed By: #### C DP, CMPX #### [facility] [address] [place] [address] Quality Assurance Nurse: Willy Henson MD AST [Catalytic activity/Vol] 15 U/L Normal <32 [facility] Comment on above: Performed By: #### C DP, CMPX #### [facility] [address] [place] [address] Quality Assurance Nurse: Willy Henson MD Bilirubin [Mass/Vol] 0.3 mg/dL Normal 0.3-1.2 [facility] Comment on above: Performed By: #### C DP, CMPX #### [facility] [address] [place] [address] Quality Assurance Nurse: Willy Henson MD BUN/CRE Ratio 30 High 9-20 [facility] Comment on above: Performed By: #### C DP, CMPX #### [facility] [address] [place], [place] [id number] Quality Assurance Nurse: Willy Henson MD Calcium [Mass/Vol] 9.2 mg/dL Normal 8.6-10.4 [facility] Comment on above: Performed By: #### C DP, CMPX #### [facility] [address] [place] [address] Quality Assurance Nurse: Willy Henson MD Chloride [Moles/Vol] 104 mmol/L Normal 98-107 [facility] Comment on above: Performed By: #### C DP, CMPX #### [facility] [address] [place] [address] Quality Assurance Nurse: Willy Henson MD CO2 [Moles/Vol] 23 mmol/L Normal 20-31 [facility] Comment on above: Performed By: #### C DP, CMPX #### [facility] [address] [place] [address] Quality Assurance Nurse: Willy Henson MD Creatinine [Mass/Vol] 0.6 mg/dL Normal 0.5-0.9 [facility] Comment on above: Performed By: #### C DP, CMPX #### [facility] [address] [place] [address] Quality Assurance Nurse: Willy Henson MD GFR/1.73 sq M.predicted among non-blacks MDRD (S/P/Bld) [Vol rate/Area] mL/min/{1.73_m2} Normal >60 [facility] Comment on above: Result Comment: These results [...] Performed By: #### C DP, CMPX #### [facility] [address] [place] [address] Quality Assurance Nurse: Willy Henson MD Glucose [Mass/Vol] 142 mg/dL High 70-99 [facility] Comment on above: Performed By: #### C DP, CMPX #### [facility] [address] [place] [address] Quality Assurance Nurse: Willy Henson MD Potassium [Moles/Vol] 4.6 mmol/L Normal 3.7-5.3 [facility] Comment on above: Performed By: #### C DP, CMPX #### [facility] [address] [place] [address] Quality Assurance Nurse: Willy Henson MD Protein [Mass/Vol] 6.2 g/dL Low 6.4-8.3 [facility] Comment on above: Performed By: #### C DP, CMPX #### [facility] [address] [place] [address] Quality Assurance Nurse: Willy Henson MD Sodium [Moles/Vol] 138 mmol/L Normal 135-144 [facility] Comment on above: Performed By: #### C DP, CMPX #### [facility] [address] [place] [address] Quality Assurance Nurse: Willy Henson MD Urea nitrogen [Mass/Vol] 18 mg/dL Normal 8-23 [facility] Comment on above: Performed By: #### C DP, CMPX #### [facility] [address] [place] [address] Quality Assurance Nurse: Willy Henson MD Comprehensive Metabolic Pane l w/ Reflex to [facility] 08-01-2023 Albumin [Mass/Vol] 3.5 g/dL 3.5 - 5.2 g/dL [facility] Albumin/Globulin [Mass ratio] 1.3 {ratio} 1.0 - 2.5 [facility] ALP [Catalytic activity/Vol] 129 U/L High 35 - 104 U/L [facility] ALT [Catalytic activity/Vol] 11 U/L 5 - 33 U/L [facility] Anion gap [Moles/Vol] 11 mmol/L 9 - 17 mmol/L [facility] AST [Catalytic activity/Vol] 15 U/L NINF - 32 U/L [facility] Bilirubin [Mass/Vol] 0.3 mg/dL 0.3 - 1 .2 mg/dL [facility] Calcium [Mass/Vol] 9.2 mg/dL 8.6 - 10. 4 mg/dL [facility] Chloride [Moles/Vol] 104 mmol/L 98 - 10 7 mmol/L [facility] CO2 [Moles/Vol] 23 mmol/L 20 - 31 mmol/L [facility] Creatinine [Mass/Vol] 0.6 mg/dL 0.5 - 0.9 mg/dL [facility] [employer] [facility] Comment on above: These results are [...] 142 mg/dL High 70 - 99 mg/dL [facility] Interpretation and review of laboratory results Abnormal [facility] Potassium [Moles/Vol] 4.6 mmol/L 3.7 - 5.3 mmol/L [facility] Protein [Mass/Vol] 6.2 g/dL Low 6.4 - 8.3 g/dL [facility] Sodium [Moles/Vol] 138 mmol/L 135 - 144 mmol/L [facility] Urea nitrogen [Mass/Vol] 18 mg/dL 8 - 23 mg/dL [facility] Urea nitrogen/Creatinine [Mass ratio] 30 mg/mg High 9 - 20 [facility] EKG Rhythm Stripon [facility] Basic Metabolic Panelon - Anion gap [Moles/Vol] 11 mmol/L 9 - 17 mmol/L [facility] Calcium [Mass/Vol] 9.6 mg/dL 8.6 - 10. 4 mg/dL [facility] Chloride [Moles/Vol] 101 mmol/L 98 - 10 7 mmol/L [facility] CO2 [Moles/Vol] 26 mmol/L 20 - 31 mmol/L [facility] Creatinine [Mass/Vol] 0.7 mg/dL 0.5 - 0.9 mg/dL [facility] Est, Glom Filt Rate 87 - [facility] Comment on above: These results are [...] 102 mg/dL High 70 - 99 mg/dL [facility] Interpretation and review of laboratory results Abnormal [facility] Potassium [Moles/Vol] 4.5 mmol/L 3.7 - 5.3 mmol/L [facility] Sodium [Moles/Vol] 138 mmol/L 135 - 144 mmol/L [facility] Urea nitrogen [Mass/Vol] 24 mg/dL High 8 - 23 mg/dL [facility] Urea nitrogen/Creatinine [Mass ratio] 34 mg/mg High - [facility] Basic Metabolic Profon 07-30 Anion gap [Moles/Vol] 11 mmol/L Normal - [facility] Comment on above: Performed By: #### B SKYLAR, CDP #### [facility] [address] [place] [address] Quality Assurance Nurse: Willy Henson MD BUN/CRE Ratio 34 High - [facility] Comment on above: Performed By: #### B SKYLAR, CDP #### [facility] [address] [place] [address] Quality Assurance Nurse: Willy Henson MD Calcium [Mass/Vol] 9.6 mg/dL Normal 8.6-10.4 [facility] Comment on above: Performed By: #### B MP, CDP #### [facility] [address] [place] [address] Quality Assurance Nurse: Willy Henson MD Chloride [Moles/Vol] 101 mmol/L Normal 98-107 [facility] Comment on above: Performed By: #### B SKYLAR, CDP #### [facility] [address] [place] [address] Quality Assurance Nurse: Willy Henson MD CO2 [Moles/Vol] 26 mmol/L Normal 20-31 [facility] Comment on above: Performed By: #### B SKYLAR, CDP #### [facility] [address] [place] [address] Quality Assurance Nurse: Willy Henson MD Creatinine [Mass/Vol] 0.7 mg/dL Normal 0.5-0.9 [facility] Comment on above: Performed By: #### B SKYLAR, CDP #### [facility] [address] [place] [address] Quality Assurance Nurse: Willy Henson MD GFR/1.73 sq M.predicted among non-blacks MDRD (S/P/Bld) [Vol rate/Area] 87 mL/min/{1.73_m2} Normal >60 [facility] Comment on above: Result Comment: These results [...] Performed By: #### B SKYLAR, CDP #### [facility] [address] [place] [address] Quality Assurance Nurse: Willy Henson MD Glucose [Mass/Vol] 102 mg/dL High 70-99 [facility] Comment on above: Performed By: #### B SKYLAR, CDP #### [facility] [address] [place] [address] Quality Assurance Nurse: Willy Henson MD Potassium [Moles/Vol] 4.5 mmol/L Normal 3.7-5.3 [facility] Comment on above: Performed By: #### B SKYLAR, CDP #### [facility] [address] [place] [address] Quality Assurance Nurse: Willy Henson MD Sodium [Moles/Vol] 138 mmol/L Normal 135-144 [facility] Comment on above: Performed By: #### B SKYLAR, CDP #### [facility] [address] [place] [address] Quality Assurance Nurse: Willy Henson MD Urea nitrogen [Mass/Vol] 24 mg/dL High 8-23 [facility] Comment on above: Performed By: #### B SKYLAR, CDP #### [facility] [address] [place] [address] Quality Assurance Nurse: Willy Henson MD CBC with Auto Differentialon 07-31-2023 Basophils (Bld) [#/Vol] 0.00 10*3/uL [facility] Basophils/100 WBC (Bld) 0 % 0 - 2 % [facility] Eosinophils (Bld) [#/Vol] 0.00 10*3/uL [facility] Eosinophils/100 WBC (Bld) 0 % Low 1 - 4 % [facility] Erythrocyte distribution width (RBC) [Ratio] 12.1 % 11.8 - 14.4 % [facility] Hematocrit (Bld) [Volume fraction] 36.6 % 36.3 - 47.1 % [facility] Hemoglobin (Bld) [Mass/Vol] 11.7 g/dL Low 11.9 - 15.1 g/dL [facility] Immature granulocytes (Bld) [#/Vol] 0.00 10*3/uL [facility] Immature granulocytes/100 WBC (Bld) 0 % 0 [facility] Interpretation and review of laboratory results Abnormal [facility] Lymphocytes/100 WBC (Bld) 49 % High 24 - 43 % [facility] Lymphocytes/100 WBC (Bld) 5.48 % High [facility] MCH (RBC) [Entitic mass] 28.8 pg 25.2 - 33.5 pg [facility] MCHC (RBC) [Mass/Vol] 32.0 g/dL 28.4 - 34.8 g/dL [facility] MCV (RBC) [Entitic vol] 90.1 fL 82.6 - 102.9 fL [facility] Monocytes/100 WBC (Bld) 3 % 3 - 12 % [facility] Monocytes/100 WBC (Bld) 0.34 % [facility] Morphology Ki (Bld) [Interp] Normal [facility] Neutrophils/100 WBC (Bld) 48 % 36 - 65 % [facility] Nucleated RBC/100 WBC (Bld) [Ratio] 0.0 % 0.0 per 100 WBC [facility] Platelet mean volume (Bld) [Entitic vol] 11.0 fL 8.1 - 13.5 fL [facility] Platelets (Bld) [#/Vol] 249 10*3/uL [facility] RBC (Bld) [#/Vol] 4.06 10*6/uL 3.95 - 5.1 1 m/uL [facility] Segmented neutrophils/100 WBC (Bld) 5.38 % [facility] WBC other (Bld) [#/Vol] 11.2 [facility] CBC with Diffon 07-31-2023 Abs. Basophil 0.00 k/uL Normal 0.0-0.2 [facility] Comment on above: Performed By: #### B SKYLAR, CDP #### [facility] [address] [place] [address] Quality Assurance Nurse: Willy Henson MD Abs.Imm.Granulocyte 0.00 k/uL Normal 0.00-0.30 [facility] Comment on above: Performed By: #### B SKYLAR, CDP #### [facility] [address] [place] [address] Quality Assurance Nurse: Willy Henson MD Abs.Neutrophil (Seg) 5.38 k/uL Normal 1.50-8.10 [facility] Comment on above: Performed By: #### B SKYLAR, CDP #### [facility] [address] [place], [place] [id number] Quality Assurance Nurse: Willy Henson MD Basophils/100 WBC (Bld) 0 % Normal 0-2 [facility] Comment on above: Performed By: #### B MP, CDP #### [facility] [address] [place], [place] [address] Quality Assurance Nurse: Willy Henson MD Eosinophils (Bld) [#/Vol] 0.00 10*3/uL Normal 0.00-0.44 [facility] Comment on above: Performed By: #### B SKYLAR, CDP #### [address] [place], [facility] ( Quality Assurance Nurse: Willy Henson MD Eosinophils/100 WBC (Bld) 0 % Low 1-4 [facility] Comment on above: Performed By: #### B SKYLAR, CDP #### [address] [place], [place] [address] Quality Assurance Nurse: Willy Henson MD Immature granulocytes/100 WBC (Bld) 0 % Normal 0 [facility] Comment on above: Performed By: #### B SKYLAR, CDP #### [facility] [address] [place] [address] [address], [place] [address] Quality Assurance Nurse: Willy Henson MD Lymphocytes (Bld) [#/Vol] 5.48 10*3/uL High 1.10-3.70 [facility] Comment on above: Performed By: #### B MP, CDP #### [address] [place] [id number] Quality Assurance Nurse: Willy Henson MD Lymphocytes/100 WBC (Bld) 49 % High 24-43 [facility] Comment on above: Performed By: #### B MP, CDP #### [facility] [address] [place], [place] [id number] Quality Assurance Nurse: Willy Henson MD Monocytes (Bld) [#/Vol] 0.34 10*3/uL Normal 0.10-1.20 [facility] Comment on above: Performed By: #### B MP, CDP #### [address] [place], [place] [id number] Quality Assurance Nurse: Willy Henson MD Monocytes/100 WBC (Bld) 3 % Normal 3-12 [facility] Comment on above: Performed By: #### B MP, CDP #### [address] [place], [place] 1468883 Quality Assurance Nurse: Willy Henson MD Morphology Ki (Bld) [Interp] Normal Normal [facility] Comment on above: Performed By: #### B MP, CDP #### [address] [place], [place] [id number] Quality Assurance Nurse: Willy Henson MD Neutrophil (Seg) 48 % Normal 36-65 [facility] Comment on above: Performed By: #### B MP, CDP #### [address] [place], [place] [id number] Quality Assurance Nurse: Willy Henson MD Erythrocyte distribution width (RBC) [Ratio] 12.1 % Normal 11.8-14.4 [facility] Comment on above: Performed By: #### B MP, CDP #### [address] [place], [place] 0999183 Quality Assurance Nurse: Willy Henson MD Hematocrit (Bld) [Volume fraction] 36.6 % Normal 36.3-47.1 [facility] Comment on above: Performed By: #### B MP, CDP #### [address] [place], [place] [id number] Quality Assurance Nurse: Willy Henson MD Hemoglobin (Bld) [Mass/Vol] 11.7 g/dL Low 11.9-15.1 [facility] Comment on above: Performed By: #### B SKYLAR, CDP #### [address] [place] [address] Quality Assurance Nurse: Willy Henson MD MCH (RBC) [Entitic mass] 28.8 pg Normal 25.2-33.5 [facility] Comment on above: Performed By: #### B SKYLAR, CDP #### [address] [place] [address] Quality Assurance Nurse: Willy Henson MD MCHC (RBC) [Mass/Vol] 32.0 g/dL Normal 28.4-34.8 [facility] Comment on above: Performed By: #### B SKYLAR, CDP #### [address] [place] [address] Quality Assurance Nurse: Willy Henson MD MCV (RBC) [Entitic vol] 90.1 fL Normal 82.6-102.9 [facility] Comment on above: Performed By: #### B SKYLAR, CDP #### [address] [place] [address] Quality Assurance Nurse: Willy Henson MD NRBC Automated 0.0 per 100 WBC Normal 0.0 [facility] Comment on above: Performed By: #### Tanner CHENG, CDP #### [address] [place], [facility]83 Quality Assurance Nurse: Willy Henson MD Platelet mean volume (Bld) [Entitic vol] 11.0 fL Normal 8.1-13.5 [facility] Comment on above: Performed By: #### B SKYLAR, CDP #### [address] [place] [address] Quality Assurance Nurse: Willy Henson MD Platelets (Bld) [#/Vol] 249 10*3/uL Normal 138-453 [facility] Comment on above: Performed By: #### B MP, CDP #### [facility] [address] [place] [address] Quality Assurance Nurse: Willy Henson MD RBC (Bld) [#/Vol] 4.06 10*6/uL Normal 3.95-5.11 [facility] Comment on above: Performed By: #### B SKYLAR, CDP #### [facility] [address] [place], [place] [id number] Quality Assurance Nurse: Willy Henson MD WBC (Bld) [#/Vol] 11.2 10*3/uL Normal 3.5-11.3 [facility] Comment on above: Performed By: #### B SKYLAR, CDP #### [facility] [address] [place], [place] [id number] Quality Assurance Nurse: Willy Henosn MD CT ABDOMEN PELVIS W IV CONTR [...] Chato Bell MD 07/31/23 Final result Normal [facility] CT Abdomen and Pelvis W cont rast [...] 4.0 cm with surrounding soft tissue swelling. [facility] CON[facility] Chato Bell MD - 07/31/2023 EXAMINATION: CT [...] body wall edema. 4. Left-sided colonic diverticulosis. [facility] Radiology Study observation (narrative) [facility] CT Abdomen and Pelvis W cont rast IVOrdered By: Chato Bell on 07-31-2023 [facility] Work Phone: CBC with Auto Differentialon 07-18-2023 Basophils (Bld) [#/Vol] [facility] Basophils/100 WBC (Bld) 0 % 0 - 2 % [facility] Eosinophils (Bld) [#/Vol] 0.06 10*3/uL [facility] Eosinophils/100 WBC (Bld) 1 % 1 - 4 % [facility] Erythrocyte distribution width (RBC) [Ratio] 12.5 % 11.8 - 14.4 % [facility] Hematocrit (Bld) [Volume fraction] 33.5 % Low 36.3 - 47.1 % [facility] Hemoglobin (Bld) [Mass/Vol] 10.7 g/dL Low 11.9 - 15.1 g/dL [facility] Immature granulocytes (Bld) [#/Vol] 0.04 10*3/uL [facility] Immature granulocytes/100 WBC (Bld) 0 % 0 [facility] Interpretation and review of laboratory results Abnormal [facility] Lymphocytes/100 WBC (Bld) 40 % 24 - 43 % [facility] Lymphocytes/100 WBC (Bld) 4.64 % High [facility] MCH (RBC) [Entitic mass] 28.8 pg 25.2 - 33.5 pg [facility] MCHC (RBC) [Mass/Vol] 31.9 g/dL 28.4 - 34.8 g/dL [facility] MCV (RBC) [Entitic vol] 90.3 fL 82.6 - 102.9 fL [facility] Monocytes/100 WBC (Bld) 8 % 3 - 12 % [facility] Monocytes/100 WBC (Bld) 0.88 % [facility] Neutrophils/100 WBC (Bld) 52 % 36 - 65 % [facility] Nucleated RBC/100 WBC (Bld) [Ratio] 0.0 % 0.0 per 100 WBC [facility] Platelet, Fluorescence 137 Low [facility] Platelets (Bld) [#/Vol] See Reflexed IPF Result [facility] Platelets reticulated/100 platelets Auto (Bld) 4.3 % 1.1 - 10.3 % [facility] RBC (Bld) [#/Vol] 3.71 10*6/uL Low 3.95 - 5.1 1 m/uL [facility] Segmented neutrophils/100 WBC (Bld) 5.99 % [facility] WBC other (Bld) [#/Vol] 11.6 High [facility] CBC with Diffon 07-18-2023 Platelet, Fluoresc. 137 k/uL Low 138-453 [facility] Comment on above: Performed By: #### C P, CDP #### [facility] [address] [place], [place] [id number] Quality Assurance Nurse: Willy Henson MD PLT, Immature Fract. 4.3 % Normal 1.1-10.3 [facility] Comment on above: Performed By: #### C P, CDP #### [facility] [address] [place] [address] Quality Assurance Nurse: Willy Henson MD Abs. Basophil <0.03 Normal 0.00-0.20 [facility] Comment on above: Performed By: #### C P, CDP #### [facility] [address] [place] [address] Quality Assurance Nurse: Willy Henson MD Abs.Imm.Granulocyte 0.04 k/uL Normal 0.00-0.30 [facility] Comment on above: Performed By: #### C P, CDP #### [address] [place], [place] [address] Quality Assurance Nurse: Willy Henson MD Abs.Neutrophil (Seg) 5.99 k/uL Normal 1.50-8.10 [facility] Comment on above: Performed By: #### C P, CDP #### [address] [place], [facility]83 Quality Assurance Nurse: Willy Henson MD Basophils/100 WBC (Bld) 0 % Normal 0-2 [facility] Comment on above: Performed By: #### C P, CDP #### [address] [place] [address] Quality Assurance Nurse: Willy Henson MD Eosinophils (Bld) [#/Vol] 0.06 10*3/uL Normal 0.00-0.44 [facility] Comment on above: Performed By: #### C P, CDP #### [address] [place] [address] Quality Assurance Nurse: Willy Henson MD Eosinophils/100 WBC (Bld) 1 % Normal 1-4 [facility] Comment on above: Performed By: #### C P, CDP #### [address] [place], [facility]83 Quality Assurance Nurse: Willy Henson MD Erythrocyte distribution width (RBC) [Ratio] 12.5 % Normal 11.8-14.4 [facility] Comment on above: Performed By: #### C P, CDP #### [address] [place] [id number] Quality Assurance Nurse: Willy Henson MD Hematocrit (Bld) [Volume fraction] 33.5 % Low 36.3-47.1 [facility] Comment on above: Performed By: #### C P, CDP #### [facility] [address] [place], [place] [id number] Quality Assurance Nurse: Willy Henson MD Hemoglobin (Bld) [Mass/Vol] 10.7 g/dL Low 11.9-15.1 [facility] Comment on above: Performed By: #### C P, CDP #### [facility] [address] [place], [place] [id number] Quality Assurance Nurse: Willy Henson MD Immature granulocytes/100 WBC (Bld) 0 % Normal 0 [facility] Comment on above: Performed By: #### C P, CDP #### [facility] [address] [place], [place] 1407883 Quality Assurance Nurse: Willy Henson MD Lymphocytes (Bld) [#/Vol] 4.64 10*3/uL High 1.10-3.70 [facility] Comment on above: Performed By: #### C P, CDP #### [address] [place], [place] [id number] Quality Assurance Nurse: Willy Henson MD Lymphocytes/100 WBC (Bld) 40 % Normal 24-43 [facility] Comment on above: Performed By: #### C P, CDP #### [address] [place], [place] [phone] Quality Assurance Nurse: Willy Henson MD MCH (RBC) [Entitic mass] 28.8 pg Normal 25.2-33.5 [facility] Comment on above: Performed By: #### C P, CDP #### [address] [place] [address] Quality Assurance Nurse: Willy Henson MD MCHC (RBC) [Mass/Vol] 31.9 g/dL Normal 28.4-34.8 [facility] [facility] Comment on above: Performed By: #### C P, CDP #### [address] [place] [address] Quality Assurance Nurse: Willy Henson MD MCV (RBC) [Entitic vol] 90.3 fL Normal 82.6-102.9 [facility] Comment on above: Performed By: #### C P, CDP #### [facility] [address] [place] [address] Quality Assurance Nurse: Willy Henson MD Monocytes (Bld) [#/Vol] 0.88 10*3/uL Normal 0.10-1.20 [facility] Comment on above: Performed By: #### C P, CDP #### [facility] [address] [place], [place] [phone] Quality Assurance Nurse: Willy Henson MD Monocytes/100 WBC (Bld) 8 % Normal 3-12 [facility] Comment on above: Performed By: #### C P, CDP #### [address] [place], [place] 8195783 Quality Assurance Nurse: Willy Henson MD Neutrophil (Seg) 52 % Normal 36-65 [facility] Comment on above: Performed By: #### C P, CDP #### [address] [place], [place] [phone] Quality Assurance Nurse: Willy Henson MD NRBC Automated 0.0 per 100 WBC Normal 0.0 [facility] Comment on above: Performed By: #### C P, CDP #### [address] [place], [facility] Quality Assurance Nurse: Willy Henson MD Platelet Count See Reflexed IPF Result Normal 138-453 [facility] Comment on above: Performed By: #### C P, CDP #### [address] [place], [place] [phone] Quality Assurance Nurse: Willy Henson MD RBC (Bld) [#/Vol] 3.71 10*6/uL Low 3.95-5.11 [facility] Comment on above: Performed By: #### C P, CDP #### [facility] [address] [place], [place] [address] Quality Assurance Nurse: Willy Henson MD WBC (Bld) [#/Vol] 11.6 10*3/uL High 3.5-11.3 [facility] Comment on above: Performed By: #### C P, CDP #### [facility] [address] [place], [place] [id number] Quality Assurance Nurse: Willy Henson MD Comp Metabolic Profon 2023 Albumin [Mass/Vol] 3.5 g/dL Normal 3.5-5.2 [facility] Comment on above: Performed By: #### C P, CDP #### [address] [place], [place] 5386183 Quality Assurance Nurse: Willy Henson MD Albumin/Glob Ratio 1.8 Normal 1.0-2.5 [facility] Comment on above: Performed By: #### C P, CDP #### [address] [place], [place] 0871283 Quality Assurance Nurse: Willy Henson MD Alkaline Phos 85 U/L Normal 35-104 [facility] Comment on above: Performed By: #### C P, CDP #### [facility] [address] [place] [address] [address] [place], [place] [phone] Quality Assurance Nurse: Willy Henson MD ALT [Catalytic activity/Vol] 17 U/L Normal 5-33 [facility] Comment on above: Performed By: #### C P, CDP #### [facility] [address] [place], [place] 5489883 Quality Assurance Nurse: Willy Henson MD Anion gap [Moles/Vol] 6 mmol/L Low 9-17 [facility] Comment on above: Performed By: #### C P, CDP #### [facility] [address] [place] [address] Quality Assurance Nurse: Willy Henson MD AST [Catalytic activity/Vol] 16 U/L Normal <32 [facility] Comment on above: Performed By: #### C P, CDP #### [facility] [address] [place] [address] Quality Assurance Nurse: Willy Henson MD Bilirubin [Mass/Vol] 0.5 mg/dL Normal 0.3-1.2 [facility] Comment on above: Performed By: #### C P, CDP #### [facility] [address] [place] [address] Quality Assurance Nurse: Willy Henson MD BUN/CRE Ratio 18 Normal 9-20 [facility] Comment on above: Performed By: #### C P, CDP #### [facility] [address] [place] [address] Quality Assurance Nurse: Willy Henson MD Calcium [Mass/Vol] 8.6 mg/dL Normal 8.6-10.4 [facility] Comment on above: Performed By: #### C P, CDP #### [facility] [address] [place] [address] Quality Assurance Nurse: Willy Henson MD Chloride [Moles/Vol] 108 mmol/L High 98-107 [facility] Comment on above: Performed By: #### C P, CDP #### [facility] [address] [place], [place] 8654283 Quality Assurance Nurse: Willy Henson MD CO2 [Moles/Vol] 24 mmol/L Normal 20-31 [facility] Comment on above: Performed By: #### C P, CDP #### [facility] [address] [place] [address] Quality Assurance Nurse: Willy Henson MD Creatinine [Mass/Vol] 0.6 mg/dL Normal 0.5-0.9 [facility] Comment on above: Performed By: #### C P, CDP #### [facility] [address] [place] [address] Quality Assurance Nurse: Willy Henson MD GFR/1.73 sq M.predicted among non-blacks MDRD (S/P/Bld) [Vol rate/Area] mL/min/{1.73_m2} Normal >60 [facility] Comment on above: Result Comment: These results [...] Performed By: #### C P, CDP #### [address] [place] [address] Quality Assurance Nurse: Willy Henson MD Glucose [Mass/Vol] 135 mg/dL High 70-99 [facility] Comment on above: Performed By: #### C P, CDP #### [facility] [address] [place] [address] Quality Assurance Nurse: Willy Henson MD Potassium [Moles/Vol] 4.4 mmol/L Normal 3.7-5.3 [facility] Comment on above: Performed By: #### C P, CDP #### [facility] [address] [place] [address] Quality Assurance Nurse: Willy Henson MD Protein [Mass/Vol] 5.4 g/dL Low 6.4-8.3 [facility] Comment on above: Performed By: #### C P, CDP #### [facility] [address] [place] [address] Quality Assurance Nurse: Willy Henson MD Sodium [Moles/Vol] 138 mmol/L Normal 135-144 [facility] Comment on above: Performed By: #### C P, CDP #### [facility] [address] [place] [address] Quality Assurance Nurse: Willy Henson MD Urea nitrogen [Mass/Vol] 11 mg/dL Normal 8-23 [facility] Comment on above: Performed By: #### C P, CDP #### [facility] [address] [place] [address] Quality Assurance Nurse: Willy Henson MD Comprehensive Metabolic Pane [facility] 07-18-2023 Albumin [Mass/Vol] 3.5 g/dL 3.5 - 5.2 g/dL [facility] Albumin/Globulin [Mass ratio] 1.8 {ratio} 1.0 - 2.5 [facility] ALP [Catalytic activity/Vol] 85 U/L 35 - 104 U/L [facility] ALT [Catalytic activity/Vol] 17 U/L 5 - 33 U/L [facility] Anion gap [Moles/Vol] 6 mmol/L Low 9 - 17 mmol/L [facility] AST [Catalytic activity/Vol] 16 U/L NINF - 32 U/L [facility] Bilirubin [Mass/Vol] 0.5 mg/dL 0.3 - 1 .2 mg/dL [facility] Calcium [Mass/Vol] 8.6 mg/dL 8.6 - 10. 4 mg/dL [facility] Chloride [Moles/Vol] 108 mmol/L High 98 - 10 7 mmol/L [facility] CO2 [Moles/Vol] 24 mmol/L 20 - 31 mmol/L [facility] Creatinine [Mass/Vol] 0.6 mg/dL 0.5 - 0.9 mg/dL [facility] Est, Glom Filt Rate - [facility] Comment on above: These results are [...] 135 mg/dL High 70 - 99 mg/dL [facility] Interpretation and review of laboratory results Abnormal [facility] Potassium [Moles/Vol] 4.4 mmol/L 3.7 - 5.3 mmol/L [facility] Protein [Mass/Vol] 5.4 g/dL Low 6.4 - 8.3 g/dL [facility] Sodium [Moles/Vol] 138 mmol/L 135 - 144 mmol/L [facility] Urea nitrogen [Mass/Vol] 11 mg/dL 8 - 23 mg/dL [facility] Urea nitrogen/Creatinine [Mass ratio] 18 mg/mg 9 - 20 [facility] Surgical Pathology Reporton 07-17-2023 Surgical Pathology Report (NOTE) Path Number: [id number] -- Diagnosis -- UMBILICAL TISSUE/HERNIA, REPAIR:-FIBROMEMBRANE OUS [...] x 2.5 cm. No lesions are identified. Coverage Specialist sections 1c. tm Nimco Villalobos/mj:07/18/2023 Microscopic Description Microscopic examination performed. Processing Lab: [address] [address] Interpretation Performed at [address] [address] SURGICAL PATHOLOGY CONSULTATION Patient Name: MICHEAL BRICE Med Rec: [id number] [facility] [employer] [facility] ANATOMIC PATHOLOGY [address] [facility]. [place], [place] [address] [facility] Basic Metabolic Profon 06-21 Anion gap [Moles/Vol] 8 mmol/L Low 9-17 [facility] Comment on above: Performed By: #### C DP, BMP ####[facility] [id number]Mount [facility] Hospitalb[facility]ie, [place] [phone] Director: Willy Henson MD BUN/CRE Ratio 27 High 9-20 [facility] Comment on above: Performed By: #### C DP, BMP ####[facility] [id number] Critical access hospital, [place] [phone] Director: Willy Henson MD Calcium [Mass/Vol] 9.0 mg/dL Normal 8.6-10.4 [facility] Comment on above: Performed By: #### C DP, BMP ####[facility] [id number] [place], [place] [phone] Director: Willy Henson MD Chloride [Moles/Vol] 108 mmol/L High 98-107 [facility] Comment on above: Performed By: #### C DP, BMP ####[facility] [id number] Critical access hospital, [place] [phone] Director: Willy Henson MD CO2 [Moles/Vol] 26 mmol/L Normal 20-31 [facility] Comment on above: Performed By: #### C DP, BMP ####[facility] [id number] [facility] Centerharleen NavarroMount [facility] Hospitalbettie, [place] [phone] Director: Willy Henson MD Creatinine [Mass/Vol] 0.7 mg/dL Normal 0.5-0.9 [facility] Comment on above: Performed By: #### C DP, BMP ####[facility] [id number] [facility] Centerharleen Bradleyhospital [facility] [place], [place] [phone] Director: Willy Henson MD GFR/1.73 sq M.predicted among non-blacks MDRD (S/P/Bld) [Vol rate/Area] 87 mL/min/{1.73_m2} Normal >60 [facility] [...] secretion. Performed By: #### C DP, BMP ####[facility] Voe4624 [place] [address] Lab Director: Willy Henson MD Glucose [Mass/Vol] 101 mg/dL High 70-99 [facility] Comment on above: Performed By: #### C BRITTANY, BMP ####[facility] [id number] [place] [address] Lab Director: Willy Henson MD Potassium [Moles/Vol] 4.1 mmol/L Normal 3.7-5.3 [facility] Comment on above: Performed By: #### C DP, BMP ####[facility] Hyk6036 [place], [place] [phone] Director: Willy Henson MD Sodium [Moles/Vol] 142 mmol/L Normal 135-144 [facility] Comment on above: Performed By: #### C DP, BMP ####[facility] Aee0694 [place] [address] Lab Director: Willy Henson MD Urea nitrogen [Mass/Vol] 19 mg/dL Normal 8-23 [facility] Comment on above: Performed By: #### C DP, BMP ####[facility] Zuw9426 [place], [place] [phone] Director: Willy Henson MD CBC with Diffon 06-22-2023 Abs. Basophil 0.00 k/uL Normal 0.00-0.20 [facility] Comment on above: Performed By: #### C DP, BMP ####[facility] [address]bb[address] [place] [address] Lab Director: Willy Henson MD Abs.Imm.Granulocyte 0.00 k/uL Normal 0.00-0.30 [facility] Comment on above: Performed By: #### C DP, BMP ####[facility] [id number] [facility], [place] [address] Lab Director: Willy Henson MD Abs.Neutrophil (Seg) 6.72 k/uL Normal 2.5-7.0 [facility] Comment on above: Performed By: #### C DP, BMP ####[facility] [id number] [facility], [place] [address])[phone] Director: Willy Henson MD Basophils/100 WBC (Bld) 0 % Normal 0-2 [facility] Comment on above: Performed By: #### C DP, BMP ####[facility] [id number] [facility], [place] [address])[phone] Director: Willy Henson MD Eosinophils (Bld) [#/Vol] 0.14 10*3/uL Normal 0.00-0.40 [facility] Comment on above: Performed By: #### C DP, BMP ####[facility] [id number] [facility]leen [facility], [place] [address])[phone] Director: Willy Henson MD Eosinophils/100 WBC (Bld) 1 % Normal 0-5 [facility] Comment on above: Performed By: #### C DP, BMP ####[facility] [id number] Critical [facility] hospital, [place] [address])[phone] Director: Willy Henson MD Immature granulocytes/100 WBC (Bld) 0 % Normal 0-5 [facility] Comment on above: Performed By: #### C DP, BMP ####[facility] [id number] [place] [address] Lab Director: Willy Henson MD Lymphocytes (Bld) [#/Vol] 6.16 10*3/uL High 1.00-4.80 [facility] Comment on above: Performed By: #### C DP, BMP ####[facility] Ket[address]08 [place] [address] Lab Director: Willy Henson MD Lymphocytes/100 WBC (Bld) 44 % High 15-40 [facility] Comment on above: Performed By: #### C DP, BMP ####[facility] [id number] [place] [address] Lab Director: Willy Henson MD Monocytes (Bld) [#/Vol] 0.98 10*3/uL Normal 0.00-1.00 [facility] Comment on above: Performed By: #### C DP, BMP ####[facility] [id number] [place] [address] Lab Director: Willy Henson MD Monocytes/100 WBC (Bld) 7 % Normal 4-8 [facility] Comment on above: Performed By: #### C DP, BMP ####[facility] Fgr2235 [place] [address] Lab Director: Willy Henson MD Morphology Ki (Bld) [Interp] Scanned to verify automated differential. Normal [facility] Comment on above: Performed By: #### C DP, BMP ####[facility] Tun6240 [place] [address] Lab Director: Willy Henson MD Neutrophil (Seg) 48 % Normal 47-75 [facility] Comment on above: Performed By: #### C DP, BMP ####[facility] Icb5829 [facility], [place] [phone] Lab Director: Willy Henson MD Erythrocyte distribution width (RBC) [Ratio] 13.0 % Normal 12.1-15.2 [facility] Comment on above: Performed By: #### C DP, BMP ####[facility] Omh5033 [facility] [place] [address] Lab Director: Willy Henson MD Hematocrit (Bld) [Volume fraction] 31.3 % Low 36.0-46.0 [facility] Comment on above: Performed By: #### C DP, BMP ####[facility] [id number] [place] [address] Lab Director: Willy Henson MD Hemoglobin (Bld) [Mass/Vol] 10.2 g/dL Low 12.0-16.0 [facility] Comment on above: Performed By: #### C DP, BMP ####[facility] Pxe8202 [place] [id number] Lab Director: Willy Henson MD MCH (RBC) [Entitic mass] 29.5 pg Normal 26.0-34.0 [facility] Comment on above: Performed By: #### C DP, BMP ####[facility] Mhp2874 [place] [address] Lab Director: Willy Henson MD MCHC (RBC) [Mass/Vol] 32.6 g/dL Normal 31.0-37.0 [facility] Comment on above: Performed By: #### C DP, BMP ####[facility] Nbo2371 [place] [address] Lab Director: Willy Henson MD MCV (RBC) [Entitic vol] 90.5 fL Normal 80.0-100.0 [facility] Comment on above: Performed By: #### C DP, BMP ####[facility] Rzj3082 [place] [address] Lab Director: Willy Henson MD Platelet mean volume (Bld) [Entitic vol] 11.1 fL Normal 6.0-12.0 [facility] Comment on above: Performed By: #### C DP, BMP ####[facility] Ick8384 [address] [place], [place] [phone] Director: Willy Henson MD Platelets (Bld) [#/Vol] 139 10*3/uL Low 140-450 [facility] Comment on above: Performed By: #### C DP, BMP ####[facility] Cju2673 [address] [place], [place] [phone] Director: Willy Henson MD RBC (Bld) [#/Vol] 3.46 10*6/uL Low 4.00-5.20 [facility] Comment on above: Performed By: #### C DP, BMP ####[facility] Dlg59[address], [place] [phone] Director: Willy Henson MD WBC (Bld) [#/Vol] 14.0 10*3/uL High 3.5-11.0 [facility] Comment on above: Performed By: #### C DP, BMP ####[facility] Ocz6289 [address] [place], [place] [phone] Director: Willy Henson MD Basic Metab w/rfx MGon 06-20 Anion gap [Moles/Vol] 8 mmol/L Low 9-17 [facility] Comment on above: Performed By: #### L IVP, BMPX, CDP #### [facility] [address] [place] [address] Quality Assurance Nurse: Willy Henson MD BUN/CRE Ratio 27 High 9-20 [facility] Comment on above: Performed By: #### L IVP, BMPX, CDP #### [facility] [address] [place] [address] Quality Assurance Nurse: Willy Henson MD Calcium [Mass/Vol] 9.0 mg/dL Normal 8.6-10.4 [facility] Comment on above: Performed By: #### L IVP, BMPX, CDP #### [facility] [address] [place], [place] [phone] Quality Assurance Nurse: Willy Henson MD Chloride [Moles/Vol] 105 mmol/L Normal 98-107 [facility] Comment on above: Performed By: #### L IVP, BMPX, CDP #### [facility] [address] [place], [place] [phone] Quality Assurance Nurse: Willy Henson MD CO2 [Moles/Vol] 24 mmol/L Normal 20-31 [facility] Comment on above: Performed By: #### L IVP, BMPX, CDP #### [facility] [address] [place] [address] Quality Assurance Nurse: Willy Henson MD Creatinine [Mass/Vol] 0.6 mg/dL Normal 0.5-0.9 [facility] Comment on above: Performed By: #### L IVP, BMPX, CDP #### [facility] [address] [place] [address] Quality Assurance Nurse: Willy Henson MD GFR/1.73 sq M.predicted among non-blacks MDRD (S/P/Bld) [Vol rate/Area] mL/min/{1.73_m2} Normal >60 [facility] Comment on above: Result Comment: These results [...] By: #### L IVP, BMPX, CDP #### [facility] [address] [place], [place] [phone] Quality Assurance Nurse: Willy Henson MD Glucose [Mass/Vol] 152 mg/dL High 70-99 [facility] Comment on above: Performed By: #### L IVP, BMPX, CDP #### [facility] [address] [place] [address] Quality Assurance Nurse: Willy Henson MD Potassium [Moles/Vol] 4.2 mmol/L Normal 3.7-5.3 [facility] Comment on above: Performed By: #### L IVP, BMPX, CDP #### [facility] [address] [place] [address] Quality Assurance Nurse: Willy Henson MD Sodium [Moles/Vol] 137 mmol/L Normal 135-144 [facility] Comment on above: Performed By: #### L IVP, BMPX, CDP #### [facility] [address] [place], [place] [phone] Quality Assurance Nurse: Willy Henson MD Urea nitrogen [Mass/Vol] 16 mg/dL Normal 8-23 [facility] Comment on above: Performed By: #### L IVP, BMPX, CDP #### [facility] [address] [place] [address] Quality Assurance Nurse: Willy Henson MD CBC with Diffon 06-21-2023 Abs. Basophil Normal 0.0-0.2 [facility] Comment on above: Performed By: #### L IVP, BMPX, CDP #### [facility] [address] [place], [place] [phone] Quality Assurance Nurse: Willy Henson MD Abs. Eosinophil Normal 0.0-0.4 [facility] Comment on above: Performed By: #### L IVP, BMPX, CDP #### [facility] [address] [place], [place] [phone] Quality Assurance Nurse: Willy Henson MD Abs.Imm.Granulocyte Normal 0.00-0.30 [facility] Comment on above: Performed By: #### L IVP, BMPX, CDP #### [facility] [address] [place] [address] Quality Assurance Nurse: Willy Henson MD Abs.Neutrophil (Seg) 14.01 k/uL High 2.5-7.0 [facility] Comment on above: Performed By: #### L IVP, BMPX, CDP #### [facility] [address] [place] [address] Quality Assurance Nurse: Willy Henson MD Basophil Normal 0-2 [facility] Comment on above: Performed By: #### L IVP, BMPX, CDP #### [facility] [address] [place] [address] Quality Assurance Nurse: Willy Henson MD Eosinophil Normal 0-5 [facility] Comment on above: Performed By: #### L IVP, BMPX, CDP #### [facility] [address] [place] [address] Quality Assurance Nurse: Willy Henson MD Immature Granulocyte Normal 0 [facility] Comment on above: Performed By: #### L IVP, BMPX, CDP #### [facility] [address] [place] [address] Quality Assurance Nurse: Willy Henson MD Lymphocytes (Bld) [#/Vol] 5.48 10*3/uL High 1.0-4.8 [facility] Comment on above: Performed By: #### L IVP, BMPX, CDP #### [facility] [address] [place] [address] Quality Assurance Nurse: Willy Hneson MD Lymphocytes/100 WBC (Bld) 27 % Normal 15-40 [facility] Comment on above: Performed By: #### L IVP, BMPX, CDP #### [facility] [address] [place], [place] [phone] Quality Assurance Nurse: Willy Henson MD Monocytes (Bld) [#/Vol] 0.81 10*3/uL Normal 0.0-1.0 [facility] Comment on above: Performed By: #### L IVP, BMPX, CDP #### [facility] [address] [place], [place] [phone] Quality Assurance Nurse: Willy Henson MD Monocytes/100 WBC (Bld) 4 % Normal 4-8 [facility] Comment on above: Performed By: #### L IVP, BMPX, CDP #### [facility] [address] [place], [place] [id number] Quality Assurance Nurse: Willy Henson MD Morphology Ki (Bld) [Interp] Manual Differential Performed Normal [facility] Comment on above: Performed By: #### L IVP, BMPX, CDP #### [facility] [address] [place], [place] [id number] Quality Assurance Nurse: Willy Henson MD Neutrophil (Seg) 69 % Normal 47-75 [facility] Comment on above: Performed By: #### L IVP, BMPX, CDP #### [facility] [address] [place], [place] [id number] Quality Assurance Nurse: Willy Henson MD Erythrocyte distribution width (RBC) [Ratio] 12.7 % Normal 12.1-15.2 [facility] Comment on above: Performed By: #### L IVP, BMPX, CDP #### [facility] [address] [place], [place] [id number] Quality Assurance Nurse: Willy Henson MD Hematocrit (Bld) [Volume fraction] 34.7 % Low 36.0-46.0 [facility] Comment on above: Performed By: #### L IVP, BMPX, CDP #### [facility] [address] [place] [address] Quality Assurance Nurse: Willy Henson MD Hemoglobin (Bld) [Mass/Vol] 11.4 g/dL Low 12.0-16.0 [facility] Comment on above: Performed By: #### L IVP, BMPX, CDP #### [facility] [address] [place] [address] Quality Assurance Nurse: Willy Henson MD MCH (RBC) [Entitic mass] 29.5 pg Normal 26.0-34.0 [facility] Comment on above: Performed By: #### L IVP, BMPX, CDP #### [facility] [address] [place] [address] Quality Assurance Nurse: Willy Henson MD MCHC (RBC) [Mass/Vol] 32.9 g/dL Normal 31.0-37.0 [facility] Comment on above: Performed By: #### L IVP, BMPX, CDP #### [facility] [address] [place] [address] Quality Assurance Nurse: Willy Henson MD MCV (RBC) [Entitic vol] 89.7 fL Normal 80.0-100.0 [facility] Comment on above: Performed By: #### L IVP, BMPX, CDP #### [facility] [address] [place] [address] Quality Assurance Nurse: Willy Henson MD Platelet mean volume (Bld) [Entitic vol] 11.2 fL Normal 6.0-12.0 [facility] Comment on above: Performed By: #### L IVP, BMPX, CDP #### [facility] [address] [place] [address] Quality Assurance Nurse: Willy Henson MD Platelets (Bld) [#/Vol] 146 10*3/uL Normal 140-450 [facility] Comment on above: Performed By: #### L IVP, BMPX, CDP #### [facility] [address] [place], [place] [id number] Quality Assurance Nurse: Willy Henson MD RBC (Bld) [#/Vol] 3.87 10*6/uL Low 4.00-5.20 [facility] Comment on above: Performed By: #### L IVP, BMPX, CDP #### [facility] [address] [place], [place] [phone] Quality Assurance Nurse: Willy Henson MD WBC (Bld) [#/Vol] 20.3 10*3/uL Critically high 3.5-11.0 [facility] Comment on above: Performed By: #### L IVP, BMPX, CDP #### [facility] [address] [place], [place] [phone] Quality Assurance Nurse: Willy Henson MD Liver Profileon 06-21-2023 Albumin [Mass/Vol] 3.6 g/dL Normal 3.5-5.2 [facility] Comment on above: Performed By: #### L IVP, BMPX, CDP #### [facility] [address] [place] [address] Quality Assurance Nurse: Willy Henson MD Alkaline Phos 91 U/L Normal 35-104 [facility] Comment on above: Performed By: #### L IVP, BMPX, CDP #### [facility] [address] [place], [place] [phone] Quality Assurance Nurse: Willy Henson MD ALT [Catalytic activity/Vol] 55 U/L High 5-33 [facility] Comment on above: Performed By: #### L IVP, BMPX, CDP #### [facility] [address] [place] [address] Quality Assurance Nurse: Willy Henson MD AST [Catalytic activity/Vol] 53 U/L High <32 [facility] Comment on above: Performed By: #### L IVP, BMPX, CDP #### [facility] [address] [place] [phone] Quality Assurance Nurse: Willy Henson MD Bilirubin [Mass/Vol] 0.7 mg/dL Normal 0.3-1.2 [facility] Comment on above: Performed By: #### L IVP, BMPX, CDP #### [facility] [address] [place] [phone] Quality Assurance Nurse: Willy Henson MD Bilirubin, Indirect Can not be calculated Normal 0.0-1 .0 [facility] Comment on above: Performed By: #### L IVP, BMPX, CDP #### [facility] [address] [place] [address] Quality Assurance Nurse: Willy Henson MD Bilirubin.indirect [Mass/Vol] mg/dL Normal <0.3 [facility] Comment on above: Performed By: #### L IVP, BMPX, CDP #### [facility] [address] [place] [address] Quality Assurance Nurse: Willy Henson MD Protein [Mass/Vol] 5.9 g/dL Low 6.4-8.3 [facility] Comment on above: Performed By: #### L IVP, BMPX, CDP #### [facility] [address] [place] [address] Quality Assurance Nurse: Willy Henson MD APTTon 06-20-2023 aPTT Coag (Bld) [Time] 25.8 s Normal 23.9-33.8 [facility] Comment on above: Result Comment: IV Heparin Therapy Range: 62.0-94.0 Performed By: #### P TT, PT ####[facility] [id number] [place] [address] Lab Director: Willy Henson MD CBC with Diffon 06-20-2023 Abs. Basophil Normal 0.0-0.2 [facility] Comment on above: Performed By: #### L ACTIC, CDP, CP #### [facility] [address] [place] [address] Quality Assurance Nurse: Willy Henson MD Abs. Eosinophil Normal 0.0-0.4 [facility] Comment on above: Performed By: #### L DIDI BONILLA, CP #### [facility] [address] [place] [address] Quality Assurance Nurse: Willy Henson MD Abs.Imm.Granulocyte Normal 0.00-0.30 [facility] Comment on above: Performed By: #### L DIDI BONILLA, CP #### [facility] [address] [place] [address] Quality Assurance Nurse: Willy Henson MD Abs.Neutrophil (Seg) 12.04 k/uL High 2.5-7.0 [facility] Comment on above: Performed By: #### L DIDI BONILLA, CP #### [facility] [address] [place] [address] Quality Assurance Nurse: Willy Henson MD Basophil Normal 0-2 [facility] Comment on above: Performed By: #### L DIDI BONILLA, CP #### [facility] [address] [place] [address] Quality Assurance Nurse: Willy Henson MD Eosinophil Normal 0-5 [facility] Comment on above: Performed By: #### L DIDI BONILLA, CP #### [facility] [address] [place], [place] [phone] Quality Assurance Nurse: Willy Henson MD Immature Granulocyte Normal 0 [facility] Comment on above: Performed By: #### L DIDI BONILLA, CP #### [facility] [address] [place], [place] [phone] Quality Assurance Nurse: Willy Henson MD Lymphocytes (Bld) [#/Vol] 5.13 10*3/uL High 1.0-4.8 [facility] Comment on above: Performed By: #### L DIDI BONILLA, CP #### [facility] [address] [place] [address] Quality Assurance Nurse: Willy Henson MD Lymphocytes/100 WBC (Bld) 29 % Normal 15-40 [facility] Comment on above: Performed By: #### L DIDI BONILLA, CP #### [facility] [address] [place] [address] Quality Assurance Nurse: Willy Henson MD Monocytes (Bld) [#/Vol] 0.53 10*3/uL Normal 0.0-1.0 [facility] Comment on above: Performed By: #### L DIDI BONILLA, CP #### [facility] [address] [place] [address] Quality Assurance Nurse: Willy Henson MD Monocytes/100 WBC (Bld) 3 % Low 4-8 [facility] Comment on above: Performed By: #### L DIDI BONILLA, CP #### [facility] [address] [place] [address] Quality Assurance Nurse: Willy Henson MD Morphology Ki (Bld) [Interp] Manual Differential Performed Normal [facility] Comment on above: Performed By: #### L DIDI BONILLA, CP #### [facility] [address] [place] [address] Quality Assurance Nurse: Willy Henson MD Neutrophil (Seg) 68 % Normal 47-75 [facility] Comment on above: Performed By: #### L DIDI BONILLA, CP #### [facility] [address] [place] [address] Quality Assurance Nurse: Willy Henson MD Erythrocyte distribution width (RBC) [Ratio] 12.5 % Normal 12.1-15.2 [facility] Comment on above: Performed By: #### L DIDI BONILLA, CP #### [facility] [address] [place] [address] Quality Assurance Nurse: Willy Henson MD Hematocrit (Bld) [Volume fraction] 37.1 % Normal 36.0-46.0 [facility] Comment on above: Performed By: #### L DIDI BONILLA, CP #### [facility] [address] [place] [address] Quality Assurance Nurse: Willy Henson MD Hemoglobin (Bld) [Mass/Vol] 12.2 g/dL Normal 12.0-16.0 [facility] Comment on above: Performed By: #### L DIDI BONILLA, CP #### [facility] [address] [place] [address] Quality Assurance Nurse: Willy Henson MD MCH (RBC) [Entitic mass] 29.5 pg Normal 26.0-34.0 [facility] Comment on above: Performed By: #### L DIDI BONILLA, CP #### [facility] [address] [place] [address] Quality Assurance Nurse: Willy Henson MD MCHC (RBC) [Mass/Vol] 32.9 g/dL Normal 31.0-37.0 [facility] Comment on above: Performed By: #### L DIDI BONILLA, CP #### [facility] [address] [place] [address] Quality Assurance Nurse: Willy Henson MD MCV (RBC) [Entitic vol] 89.6 fL Normal 80.0-100.0 [facility] Comment on above: Performed By: #### L DIDI BONILLA, CP #### [facility] [address] [place] [address] Quality Assurance Nurse: Willy Henson MD Platelet mean volume (Bld) [Entitic vol] 10.9 fL Normal 6.0-12.0 [facility] Comment on above: Performed By: #### L DIDI BONILLA, CP #### [facility] [address] [place], [place] [phone] Quality Assurance Nurse: Willy Henson MD Platelets (Bld) [#/Vol] 147 10*3/uL Normal 140-450 [facility] Comment on above: Performed By: #### L DIDI BONILLA, CP #### [facility] [address] [place] [phone] Quality Assurance Nurse: Willy Henson MD RBC (Bld) [#/Vol] 4.14 10*6/uL Normal 4.00-5.20 [facility] Comment on above: Performed By: #### L DIDI BONILLA, CP #### [facility] [address] [place] [address] Quality Assurance Nurse: Willy Henson MD WBC (Bld) [#/Vol] 17.7 10*3/uL High 3.5-11.0 [facility] Comment on above: Performed By: #### L DIDI BONILLA, CP #### [facility] [address] [place] [phone] Quality Assurance Nurse: Willy Henson MD Abs. Atypical Lymphs 0.29 k/uL Normal 0.0-1.0 [facility] Comment on above: Performed By: #### C ABEL SOTO, TROPI ####[facility] [id number] [place] [address] Lab Director: Willy Henson MD Abs. Basophil Normal 0.0-0.2 [facility] Comment on above: Performed By: #### C ABEL SOTO, TROPI ####[facility] [id number] [place] [id number] Lab Director: Willy Henson MD Abs.Imm.Granulocyte Normal 0.00-0.30 [facility] Comment on above: Performed By: #### C ABEL SOTO, TROPI ####[facility] [id number] [place] [address] Lab Director: Willy Henson MD Abs.Neutrophil (Seg) 6.15 k/uL Normal 2.5-7.0 [facility] Comment on above: Performed By: #### C DP, CP, TROPI ####[facility] [id number] [place] [address] Lab Director: Willy Henson MD Atypical Lymphs 2 % Normal [facility] Comment on above: Performed By: #### C DP, CP, TROPI ####[facility] [id number] [place] [address] Lab Director: Willy Henson MD Basophil Normal 0-2 [facility] Comment on above: Performed By: #### C DP, CP, TROPI ####[facility] [id number] [facility] Lab Director: Willy Henson MD Eosinophils (Bld) [#/Vol] 0.29 10*3/uL Normal 0.0-0.4 [facility] Comment on above: Performed By: #### C DP, CP, TROPI ####[facility] [id number] [place] [address] Lab Director: Willy Henson MD Eosinophils/100 WBC (Bld) 2 % Normal 0-5 [facility] Comment on above: Performed By: #### C DP, CP, TROPI ####[facility] [id number] [facility] [place] [address] Lab Director: Willy Henson MD Immature Granulocyte Normal 0 [facility] Comment on above: Performed By: #### C DP, CP, TROPI ####[facility] [id number] [facility] [place] [address], [place] [id number] Lab Director: Willy Henson MD Lymphocytes (Bld) [#/Vol] 6.43 10*3/uL High 1.0-4.8 [facility] Comment on above: Performed By: #### C ABEL SOTO, TROPI ####[facility] [id number] [place] [address] Lab Director: Willy Henson MD Lymphocytes/100 WBC (Bld) 45 % High 15-40 [facility] Comment on above: Performed By: #### C ABEL SOTO, TROPI ####[facility] [id number] [place] [address] Lab Director: Willy Henson MD Monocytes (Bld) [#/Vol] 1.14 10*3/uL High 0.0-1.0 [facility] Comment on above: Performed By: #### C ABEL SOTO, TROPI ####[facility] [id number] [place] [address] Lab Director: Willy Henson MD Monocytes/100 WBC (Bld) 8 % Normal 4-8 [facility] Comment on above: Performed By: #### C ABEL SOTO, TROPI ####[facility] [id number] [facility] [place] [address] Lab Director: Willy Henson MD Morphology Ki (Bld) [Interp] Manual Differential Performed Normal [facility] Comment on above: Performed By: #### C ABEL SOTO, TROPI ####[facility] [id number] [facility] [place] [address] Lab Director: Willy Henson MD Neutrophil (Seg) 43 % Low 47-75 [facility] Comment on above: Performed By: #### C BRITTANY CP, TROPI ####[facility] [id number] [facility] [place] [address] Lab Director: Willy Henson MD Erythrocyte distribution width (RBC) [Ratio] 12.7 % Normal 12.1-15.2 [facility] Comment on above: Performed By: #### C DP, CP, TROPI ####[facility] [id number] [facility] [place] [address] Lab Director: Willy Henson MD Hematocrit (Bld) [Volume fraction] 38.0 % Normal 36.0-46.0 [facility] Comment on above: Performed By: #### C DP, CP, TROPI ####[facility] [id number] [facility] [place] [address] Lab Director: Willy Henson MD Hemoglobin (Bld) [Mass/Vol] 12.5 g/dL Normal 12.0-16.0 [facility] Comment on above: Performed By: #### C DP, CP, TROPI ####[facility] [id number] [place] [address] Lab Director: Willy Henson MD MCH (RBC) [Entitic mass] 29.3 pg Normal 26.0-34.0 [facility] Comment on above: Performed By: #### C DP, CP, TROPI ####[facility] [id number] [place] [address] Lab Director: Willy Henson MD MCHC (RBC) [Mass/Vol] 32.9 g/dL Normal 31.0-37.0 [facility] Comment on above: Performed By: #### C DP, CP, TROPI ####[facility] [id number] [place] [address] Lab Director: Willy Henson MD MCV (RBC) [Entitic vol] 89.2 fL Normal 80.0-100.0 [facility] Comment on above: Performed By: #### C DP, CP, TROPI ####[facility] [id number] [facility], [place] [id number] Lab Director: Willy Henson MD Platelet mean volume (Bld) [Entitic vol] 11.0 fL Normal 6.0-12.0 [facility] Comment on above: Performed By: #### C ABEL SOTO, TROPI ####[facility] [id number] [place], [place] [id number] Director: Willy Henson MD Platelets (Bld) [#/Vol] 159 10*3/uL Normal 140-450 [facility] Comment on above: Performed By: #### C ABEL SOTO, TROPI ####[facility] [id number] [place] [address] Lab Director: Willy Henson MD RBC (Bld) [#/Vol] 4.26 10*6/uL Normal 4.00-5.20 [facility] Comment on above: Performed By: #### C ABEL SOTO, TROPI ####[facility] [id number] [place] [address] Lab Director: Willy Henson MD WBC (Bld) [#/Vol] 14.3 10*3/uL High 3.5-11.0 [facility] Comment on above: Performed By: #### C ABEL SOTO, TROPI ####[facility] [id number] [place], [place] [id number] Director: Willy Henson MD CT ABDOMEN PELVIS [...] Neptali Johnson MD 06/20/23 Final result Normal [facility] Comp Metabolic Profon 2023 Albumin [Mass/Vol] 4.3 g/dL Normal 3.5-5.2 [facility] Comment on above: Performed By: #### L DIDI BONILLA, CP #### [facility] [address] [place] [address] Quality Assurance Nurse: Willy Henson MD Alkaline Phos 109 U/L High 35-104 [facility] Comment on above: Performed By: #### L DIDI BONILLA, CP #### [facility] [address] [place] [address] Quality Assurance Nurse: Willy Henson MD ALT [Catalytic activity/Vol] 20 U/L Normal 5-33 [facility] Comment on above: Performed By: #### L DIDI BONILLA, CP #### [facility] [address] [place] [address] Quality Assurance Nurse: Willy Henson MD Anion gap [Moles/Vol] 10 mmol/L Normal 9-17 [facility] Comment on above: Performed By: #### L ACTKEARA CDP, CP #### [facility] [address] [place] [address] Quality Assurance Nurse: Willy Henson MD AST [Catalytic activity/Vol] 20 U/L Normal <32 [facility] Comment on above: Performed By: #### L DIDI BONILLA, CP #### [facility] [address] [place] [address] Quality Assurance Nurse: Willy Henson MD Bilirubin [Mass/Vol] 0.2 mg/dL Low 0.3-1.2 [facility] Comment on above: Performed By: #### L DIDI BONILLA, CP #### [facility] [address] [place] [address] Quality Assurance Nurse: Willy Henson MD BUN/CRE Ratio 26 High 9-20 [facility] Comment on above: Performed By: #### L DIDI BONILLA, CP #### [facility] [address] [place] [address] Quality Assurance Nurse: Willy Henson MD Calcium [Mass/Vol] 8.8 mg/dL Normal 8.6-10.4 [facility] Comment on above: Performed By: #### L DIDI BONILLA, CP #### [facility] [address] [place] [address] Quality Assurance Nurse: Willy Henson MD Chloride [Moles/Vol] 99 mmol/L Normal 98-107 [facility] Comment on above: Performed By: #### L ACTKEARA CDP, CP #### [facility] [address] [place] [address] Quality Assurance Nurse: Willy Henson MD CO2 [Moles/Vol] 24 mmol/L Normal 20-31 [facility] Comment on above: Performed By: #### L DIDI BONILLA, CP #### [facility] [address] [place], [place] [id number] Quality Assurance Nurse: Willy Henson MD Creatinine [Mass/Vol] 0.8 mg/dL Normal 0.5-0.9 [facility] Comment on above: Performed By: #### L DIDI BONILLA, CP #### [facility] [address] [place] [address] Quality Assurance Nurse: Willy Henson MD GFR/1.73 sq M.predicted among non-blacks MDRD (S/P/Bld) [Vol rate/Area] 74 mL/min/{1.73_m2} Normal >60 [facility] [...] By: #### L DIDI BONILLA, CP #### [facility] [address] [place] [address] Quality Assurance Nurse: Willy Henson MD Glucose [Mass/Vol] 155 mg/dL High 70-99 [facility] Comment on above: Performed By: #### L DIDI BONILLA, CP #### [facility] [address] [place] [address] Quality Assurance Nurse: Willy Henson MD Potassium [Moles/Vol] 4.0 mmol/L Normal 3.7-5.3 [facility] Comment on above: Performed By: #### L DIDI BONILLA, CP #### [facility] [address] [place] [address] Quality Assurance Nurse: Willy Henson MD Protein [Mass/Vol] 6.6 g/dL Normal 6.4-8.3 [facility] Comment on above: Performed By: #### L DIDI BONILLA, CP #### [facility] [address] [place] [address] Quality Assurance Nurse: Willy Henson MD Sodium [Moles/Vol] 133 mmol/L Low 135-144 [facility] Comment on above: Performed By: #### L DIDI BONILLA, CP #### [facility] [address] [place] [address] Quality Assurance Nurse: Willy Henson MD Urea nitrogen [Mass/Vol] 21 mg/dL Normal 8-23 [facility] Comment on above: Performed By: #### L DIDI BONILLA, CP #### [facility] [address] [place] [address] Quality Assurance Nurse: Willy Henson MD Albumin [Mass/Vol] 4.3 g/dL Normal 3.5-5.2 [facility] Comment on above: Performed By: #### C ABEL SOTO, TROPI ####[facility] [id number] [place] [address] Lab Director: Willy Henson MD Alkaline Phos 115 U/L High 35-104 [facility] Comment on above: Performed By: #### C ABEL SOTO, TROPI ####[facility] [id number] [place] [address] Lab Director: Willy Henson MD ALT [Catalytic activity/Vol] 19 U/L Normal 5-33 [facility] Comment on above: Performed By: #### C BRITTANY CP, TROPI ####[facility] [id number] [place] [address] Lab Director: Willy Henson MD Anion gap [Moles/Vol] 11 mmol/L Normal 9-17 [facility] Comment on above: Performed By: #### C DP CP, TROPI ####[facility] [id number] [address] [facility] [place] [address] Lab Director: Willy Henson MD AST [Catalytic activity/Vol] 19 U/L Normal <32 [facility] Comment on above: Performed By: #### C DP, CP, TROPI ####[facility] [id number] Eddie [place] [address] Lab Director: Willy Henson MD Bilirubin [Mass/Vol] 0.3 mg/dL Normal 0.3-1.2 [facility] Comment on above: Performed By: #### C BRITTANY, CP, TROPI ####[facility] [id number] [place] [address] Lab Director: Willy Henson MD BUN/CRE Ratio 23 High 9-20 [facility] Comment on above: Performed By: #### C BRITTANY, CP, TROPI ####[facility] [id number] [place] [address] Lab Director: Willy Henson MD Calcium [Mass/Vol] 9.8 mg/dL Normal 8.6-10.4 [facility] Comment on above: Performed By: #### C DP, CP, TROPI ####[facility] [id number] [place] [address] Lab Director: Willy Henson MD Chloride [Moles/Vol] 101 mmol/L Normal 98-107 [facility] Comment on above: Performed By: #### C DP, CP, TROPI ####[facility] [id number] [place] [address] Lab Director: Willy Henson MD CO2 [Moles/Vol] 26 mmol/L Normal 20-31 [facility] Comment on above: Performed By: #### C BRITTANY CP, TROPI ####[facility] [id number] [place] [address] Lab Director: Willy Henson MD Creatinine [Mass/Vol] 1.2 mg/dL High 0.5-0.9 [facility] Comment on above: Performed By: #### C BRITTANY CP, TROPI ####[facility] [id number] [place] [address] lab Director: Willy Henson MD GFR/1.73 sq M.predicted among non-blacks MDRD (S/P/Bld) [Vol rate/Area] 45 mL/min/{1.73_m2} Low >60 [facility] Comment on [...] renal tubular secretion. Performed By: #### C ABEL SOTO, TROPI ####[facility] [id number] [facility] [place] [address] Lab Director: Willy Henson MD Glucose [Mass/Vol] 130 mg/dL High 70-99 [facility] Comment on above: Performed By: #### C BRITTANY CP, TROPI ####[facility] [id number] [facility] [place] [address] Lab Director: Willy Henson MD Potassium [Moles/Vol] 3.8 mmol/L Normal 3.7-5.3 [facility] Comment on above: Performed By: #### C BRITTANY CP, TROPI ####[facility] [id number] [facility] [place] [address] Lab Director: Willy Henson MD Protein [Mass/Vol] 6.8 g/dL Normal 6.4-8.3 [facility] Comment on above: Performed By: #### C DP CP, TROPI ####[facility] [id number] [place] [address] Lab Director: Willy Henson MD Sodium [Moles/Vol] 138 mmol/L Normal 135-144 [facility] Comment on above: Performed By: #### C DP, CP, TROPI ####[facility] [id number] [place] [address] lab Director: Willy Henson MD Urea nitrogen [Mass/Vol] 27 mg/dL High 8-23 [facility] Comment on above: Performed By: #### C BRITTANY CP, TROPI ####[facility] [id number] [place] [address] Lab Director: Willy Henson MD D-Dimer Teston 06-20-2023 D-Dimer Test 0.36 ug/mL FEU Normal 0.00-0.59 [facility] Comment on above: Result Comment: When [...] DVT. Performed By: #### D MAGDALENA #### [facility] [address] [place], [place] [id number] Quality Assurance Nurse: Willy Henson MD Lactic Acidon 06-20-2023 Lactate [Moles/Vol] 1.2 mmol/L Normal 0.5-2.2 [facility] Comment on above: Performed By: #### L ACTIC, CDP, CP #### [facility] [address] [place] [address] Quality Assurance Nurse: Willy Henson MD Lipaseon 06-20-2023 Lipase [Catalytic activity/Vol] 24 U/L Normal 13-60 [facility] Comment on above: Performed By: #### L IP #### [facility] [address] [place], [place] [id number] Quality Assurance Nurse: Willy Henson MD PTon 06-20-2023 INR Coag (PPP) [Relative time] 1.1 {INR} Normal [facility] Comment on above: Result Comment: Therapeutic Range: Moderate Anticoagulant Intensity: INR = 2.0-3.0 High Anticoagulant Intensity: INR = 2.5-3.5 Performed By: #### P TT, PT ####[facility] [id number] [place], [place] [id number] Lab Director: Willy Henson MD PT Coag (PPP) [Time] 13.8 s Normal 11.5-14.2 [facility] Comment on above: Performed By: #### P TT, PT ####[facility] [id number] [place], [place] [id number] Lab Director: Willy Henson MD Troponinon 06-20-2023 Troponin, High Sens 6 ng/L Normal 0-14 [facility] Comment on above: Result Comment: High Sensitivity Troponin values cannot be compared with other Troponin methodologies. Performed By: #### C DP, CP, TROPI ####[facility] [id number] [place] [address] lab Director: Willy Henson MD US ABDOMEN LIMITEDon 024 US ABDOMEN LIMITED EXAM: US ABDOMEN LIMITED HISTORY: RUQ pain, question of gallstones on CT. COMPARISON: CT scan abdomen and pelvis 06/20/2023, [facility] abdominal ultrasound 04/04/2023, which showed multiple [...] since this was not present on 04/04/2023 [place] ultrasound). IMPRESSION: The right kidney substantially shadowed by gas without hydronephrosis. Cholelithiasis. Tumefactive sludge versus large gallbladder polyp (less likely since this was not present on 04/04/2023 [place] [facility]). Interpreted by: Joel Osullivan Jr., MD Signed by: Joel Osullivan Jr., MD 06/20/23 Final result Normal [facility] XR CHEST PORTABLEon 06-20-19 24 XR CHEST [...] Interpreted by: Jaelyn Stanley DO Signed by: Jealyn Stanley DO 06/20/23 Final result Normal [facility] CHEMISTRYOrdered By: SYSTEM SYSTEM on 04-04-2023 Cholesterol [...] Remisol Chem Office Visiton 11-08-2022 Follow-up visit [id number] Micheal Brice 1940 F Date Provider Department Center 11/08/2022 3848-STEVE PEGUERO Family History Problem Relation Age of Onset Coronary artery disease Mother Other Mother Family Status - Relation Status Age at Mother Level of Service:41931 MT OFFICE/OUTPATIENT NEW MODERATE MDM 45-59 MINUTES Normal [facility] Vital Signs Date Time Vital Sign Value Performing Clinician Facility 10-28-2024 08:25-0400 Body height 157.5 cm Cuauhtemoc Jacobo MD Work Phone: [facility] 10-28-2024 08:25-0400 Body mass index (BMI) [Ratio] 33.84 kg/m2 Cuauhtemoc Jacobo MD Work Phone: [facility] 10-28-2024 08:25-0400 Body weight 83.92 kg Cuauhtemoc Jacobo MD Work Phone: [facility] 10-28-2024 08:25-0400 Diastolic blood pressure 70 mm[Hg] Cuauhtemoc Jacobo MD Work Phone: [facility] 10-28-2024 08:25-0400 Heart rate 82 /min Cuauhtemoc Jacobo MD Work Phone: [facility] 10-28-2024 08:25-0400 Systolic blood pressure 131 mm[Hg] Cuauhtemoc Jacobo MD Work Phone: [facility] 07-28-2024 13:19-0400 Diastolic blood pressure 66 mm[Hg] Ernesto Ramirez MD [facility] 07-28-2024 13:19-0400 Systolic blood pressure 122 mm[Hg] Ernesto Ramirez MD [facility] 08-04-2023 19:02-0400 Body temperature 98.1 [degF] [facility] 01 [facility] 08-04-2023 19:02-0400 Diastolic blood pressure 80 mm[Hg] [facility] 01 [facility] 08-04-2023 19:02-0400 Heart rate 95 /min [facility] 01 [facility] 08-04-2023 19:02-0400 Respiratory rate 16 /min [facility] 01 [facility] [employer] 08-04-2023 19:02-0400 SaO2% (BldA) [Mass fraction] 96 % [facility] 01 [facility] [employer] 08-04-2023 19:02-0400 Systolic blood pressure 130 mm[Hg] [facility] 01 [facility] [employer] 08-03-2023 06:29-0400 Body temperature 97 [degF] [facility] [employer] 08-03-2023 06:29-0400 Diastolic blood pressure 69 mm[Hg] Michelle Cox MD Work Phone: [facility] [employer] 08-03-2023 06:29-0400 Heart rate 52 /min Michelle Cox MD [facility] [employer] 08-03-2023 06:29-0400 Respiratory rate 18 /min Michelle Cox [facility] [employer] 08-03-2023 06:29-0400 SaO2% (BldA) [Mass fraction] 98 % Michelle Cox MD [facility] [employer] 08-03-2023 06:29-0400 Systolic blood pressure 136 mm[Hg] Michelle Cox MD [facility] [employer] 08-02-2023 03:35-0400 Body mass index (BMI) [Ratio] 36.45 kg/m2 Michelle Cox MD [facility] [employer] 08-02-2023 03:35-0400 Body weight 90.4 kg Michelle Cox MD Work Phone: [facility] [employer] 08-01-2023 07:45-0400 Body height 157.5 cm Michelle Cox MD Work Phone: [facility] [employer] 07-18-2023 13:11-0400 Body temperature 97.59 [degF] Ramon Olea MD Work Phone: [facility] [employer] 07-18-2023 13:11-0400 Diastolic blood pressure 84 mm[Hg] Ramon Olea MD Work Phone: [facility] [employer] 07-18-2023 13:11-0400 Heart rate 65 /min Ramon Olea MD Work Phone: [facility] [employer] 07-18-2023 13:11-0400 Respiratory rate 17 /min Ramon Olea MD Work Phone: [facility] [employer] 07-18-2023 13:11-0400 SaO2% (BldA) [Mass fraction] 97 % Ramon Olea MD [facility] [employer] 07-18-2023 13:11-0400 Systolic blood pressure 118 mm[Hg] Ramon Olea MD [facility] [employer] 07-18-2023 07:32-0400 Body height 157.5 cm Ramon Olea MD Work Phone: [facility] [employer] 07-18-2023 05:14-0400 Body mass index (BMI) [Ratio] 34.27 kg/m2 Ramon Olea MD [facility] [employer] 07-18-2023 05:14-0400 Body weight 85 kg Ramon Olea MD [facility] 05-09-2022 08:07-0500 Body height 157.5 cm Luis Felipe Lopes MD Work Phone: [facility] 05-09-2022 08:07-0500 Body mass index (BMI) [Ratio] 37.49 kg/m2 Luis Felipe Lopes MD Work Phone: [facility] 05-09-2022 08:07-0500 Body weight 92.99 kg Luis Felipe Lopes MD Work Phone: [facility] 04-18-2022 08:32-0500 Body height 157.5 cm Luis Felipe Lopes MD Work Phone: [facility] 04-18-2022 08:32-0500 Body mass index (BMI) [Ratio] 37.49 kg/m2 Luis Felipe Lopes MD Work Phone: [facility] 04-18-2022 08:32-0500 Body weight 92.99 kg Luis Felipe Lopes MD Work Phone: [facility] Encounters Encounter Date Encounter Type Care Provider Facility Start: 04-13-2025 ambulatory PROSTHETIC ASSISTANT Camila Gutierrez ity:[facility] [place] Start: 11-11-2024 End: 11-11-2024 ambulatory DEVELOPER AUTOMATIC [facility] Facility[facility] Start: 11-03-2024 ambulatory CUAUHTEMOC JACOBO [facility] Start: 10-29-2024 End: 10-29-2024 ambulatory DEVELOPER AUTOMATIC [facility] Facility[facility] Start: 10-28-2024 End: 10-28-2024 Bamboo flowsjose Jacobo MD Work Phone: [facility] Start: 10-28-2024 End: 10-28-2024 Bamsanjivo law Jacobo MD Work Phone: [facility] Start: 10-28-2024 End: 10-28-2024 Office outpatient new 45 minutes Cuauhtemoc Jacobo MD Work Phone: [facility] Comment on above: Thyroid mass (Primar y Dx) Start: 10-28-2024 End: 10-28-2024 ambulatory CUAUHTEMOC JACOBO Not Available Start: 10-22-2024 End: 10-22-2024 ambulatory KIA SAMUEL Facility:[facility] Start: 10-21-2024 End: 10-21-2024 ambulatory Alfonso Scott OCTAVIA Facility: [place] Start: 10-21-2024 End: 10-21-2024 Patient encounter procedure Alfonso Sonia OCTAVIA [facility] [place] Start: 10-14-2024 End: 10-14-2024 ambulatory Camila L Cosmo Facility:[facility] Start: 07-28-2024 End: 07-28-2024 Ernesto Ramirez Work Phone: [facility] Start: 07-28-2024 ambulatory Ernesto Ramirez [facility] Start: 07-23-2024 End: 07-23-2024 Arnol Huston Jr Work Phone: [facility] Start: 07-23-2024 ambulatory Arnol Huston Jr [facility] Start: 06-13-2024 End: 06-13-2024 Office outpatient visit 25 minutes Luis Felipe Lopes MD Work Phone: [facility] Comment on above: History of total rig ht knee replacement (Primary Dx); Spinal stenosis, lumbar region, without neurogenic claudication; Primary osteoarthritis of left knee Start: 06-13-2024 End: 06-17-2024 ambulatory CAMILA SEKOU COSMO [facility] Start: 04-24-2024 End: 04-24-2024 ambulatory Camila L Cosmo Facility:[facility] Tiffanie agustín Start: 04-10-2024 End: 04-10-2024 Lab Drop off Camila L Cosmo [facility] Start: 04-10-2024 End: 04-10-2024 ambulatory DEDE SAMUEL Facility:[facility] Lisandra campbell Start: 08-27-2023 End: 08-27-2023 ambulatory RAMONGARCÍA OLEA [facility] Start: 08-06-2023 End: 08-07-2023 ambulatory [facility] Start: 08-05-2023 End: 08-06-2023 ambulatory [facility] Start: 08-04-2023 End: 08-05-2023 ambulatory [facility] Start: 08-04-2023 End: 08-04-2023 Subsequent hospital visit by physician [facility] Op Treatment Rm 01 [facility] ([facility]) Comment on above: Arrived Start: 08-04-2023 End: 08-04-2023 ambulatory [facility] Start: 07-31-2023 End: 08-03-2023 Evaluation and management of inpatient [facility] Start: 07-31-2023 End: 08-03-2023 Evaluation and management of inpatient Michelle Cox MD Work Phone: [facility] Comment on above: Post-operative wound abscess (Primary Dx); Failure of outpatient treatment; Abscess of umbilicus; Abscess of postoperative wound of abdominal wall Start: 07-17-2023 End: 07-18-2023 Evaluation and management of inpatient RAMON Ceferino [facility] Start: 07-17-2023 End: 07-18-2023 Evaluation and management of inpatient Ramon Olea MD Work Phone: [facility] Comment on above: Incarcerated ventral hernia (Primary Dx); Wound dehiscence; Post-op pain Start: 06-20-2023 Evaluation and management of inpatient [facility] Start: 04-04-2023 End: 04-04-2023 Lab Drop off KIA SAMUEL [facility] Start: 11-08-2022 End: 11-08-2022 [facility] Start: 05-09-2022 End: 05-09-2022 Office outpatient visit 15 minutes Luis Felipe Lopes MD Work Phone: [facility] Comment on above: History of total rig ht knee replacement (Primary Dx) Start: 04-28-2022 Erna Fitzgerald MA [facility] Start: 04-18-2022 End: 04-18-2022 Office outpatient new 30 minutes Luis Felipe Lopes MD Work Phone: [facility] Comment on above: History of total rig ht knee replacement (Primary Dx) Start: 03-29-2022 End: 03-30-[address] MIGEL RAMSEY Facility:[facility] Procedures Date Procedure Procedure Detail Performing Clinician Start: 07-28-2024 End: 07-28-2024 Computerized ophthalmic imaging retina Arnol Huston Jr Start: 07-28-2024 Fundus Photos No Charge Arnol Huston Jr Start: 07-28-2024 End: 07-28-2024 Fundus Photos No Charge Bilateral Ernesto Ramirez MD Start: 06-13-2024 Arthrocentesis aspir &/inj major jt/bursa w/o us Luis Felipe Lopes MD Work Phone: Start: 08-03-2023 Blood count complete auto&auto difrntl [...] leon MD Work Phone: Start: 03-19-2023 Cholecystectomy Camilasander Mittal hwab Amputation of thumb Alfonso DUDLEY Ankle region structu re (body structure) KIA SAMUEL Comment on above: right Arthroplasty of knee KIA JIMMIE Comment on above: 2009, right Cataract (disorder) KIA TRAVIS Comment on above: bilateral 2006 Closed fracture of a nkle (disorder) Alfonso DUDLEY Excision of lesion of skin Jason CHEATHAMJosh Finger structure (sanjiv dy structure) KIA SAMUEL History of cholecystectomy S/P cholecyste ctomy Camila Cosmo Intestinal structure (body structure) KIA SAMUEL Comment on above: obstruction Lysis of adhesions Alfonso Judy HICKS Repair of incisional hernia Alfonso OCTAVIA Repair of joint of r ight knee Alfonso OCTAVIA Stomach structure (b sanford structure) KIA JIMMIE Comment on above: 1968 Plan of Treatment Date Care Activity Detail Author Start: 02-02-2025 Micheal Brice 6mo DFE OCT [facility] Work Phone: Start: 11-17-2024 Influenza vaccination Influenza Vaccine (#1) [facility] Start: 10-28-2024 End: 10-28-2024 Patient encounter procedure 10/28/2024 8:40 AM EDT Office Visit [facility] [address] [facility] [address] [place] [phone] Cuauhtemoc Jacobo MD [address] [facility] [address] [place] [address] Arrived [facility] Comment on above: Arrived Start: 11-18-2023 COVID-19 Vaccine ( season) COVID-19 Vaccine ( season) [facility] Start: 11-18-2023 Influenza vaccination Influenza Vaccine (#1) [facility] Start: 10-18-2023 Influenza vaccination Flu vaccine (Season Ended) [facility] Start: 08-27-2023 End: 08-27-2023 Patient encounter procedure 08/27/2023 2:30 PM EDT Office Visit [facility] Part of [address] [place] [address] Rmaon Olea MD [address] [place] [address] [address] [place] [address] 4 weeks [facility] Comment on above: 4 weeks Start: 08-08-2023 DTaP/Tdap/Td vaccine (2 - Td or Tdap) DTaP/Tdap/Td vaccine (2 - Td or Tdap) [facility] Start: 08-08-2023 Tetanus vaccination Tetanus: Every 10yrs [facility] Start: 08-07-2023 End: 08-07-2023 Patient encounter procedure 08/07/2023 2:30 PM EDT Office Visit [address] [place] [address] Ramon Olea MD [address] [place] [address] [address] [place] [address] post op, fistula 1 and D. [facility] Comment on above: post op, fistula 1 and D. Start: 08-06-2023 End: 08-06-2023 Patient encounter procedure 08/06/2023 7:00 AM EDT Appointment [facility] [address] [place], [place] [id number] [facility] Start: 08-05-2023 End: 08-05-2023 [facility] Start: 08-04-2023 End: 08-04-2023 Patient encounter procedure [facility] Start: 07-25-2023 End: 07-25-2023 Patient encounter procedure 07/25/2023 4:30 PM EDT Office Visit [address] [place] [address] Ramon Olea MD [address] [place] [address] [address] [place] [address] post op check, revision of umbilical incision [facility] Comment on above: post op check, revision of umbilical inc ision Start: 06-20-2023 Annual Wellness Visit (Medicare) Annual Wellness Visit (Medicare) [facility] Start: 05-08-2023 End: 05-08-2023 Patient encounter procedure 05/08/2023 Office Visit Orthopedic Surgery Luis Felipe Lopes MD [address] [place] [address] [facility] Start: 05-09-2022 End: 05-09-2022 Patient encounter procedure 05/09/2022 Office Visit Orthopedic Surgery Luis Felipe Lopes MD [address] [place] [address] [facility] Start: 11-17-2021 Influenza vaccination Sequential Influenza Vaccine (#1) [facility] Start: 2017 Respiratory Syncytial Virus Immunization: Risk, 60-74 Risk, or 75+ (1 - 1-dose 75+ series) Respiratory Syncytial Virus Immunization: Risk, 60-74 Risk, or 75+ (1 - 1-dose 75+ series) [facility] Start: 2007 Fall risk assessment Falls Risk Assessment [facility] Start: 2007 Pneumococcal 65+ years Vaccine (1 of 1 - PCV) Pneumococcal 65+ years Vaccine (1 of 1 - PCV) [facility] Start: 2007 Pneumococcal Vaccine: Age 65+ (1 - PCV) Pneumococcal Vaccine: Age 65+ (1 - PCV) [facility] Start: 2002 Respiratory Syncytial Virus (RSV) or age 60 yrs+ (1 - 1-dose 60+ series) Respiratory Syncytial Virus (RSV) or age 60 yrs+ (1 - 1-dose 60+ series) [facility] Start: 1992 Administration of herpes zoster vaccine Zoster Vaccines (1 of 2) [facility] Start: 1992 Pneumococcal Vaccine: 65+ Years (1 of 1 - PCV) Pneumococcal Vaccine: 65+ Years (1 of 1 - PCV) [facility] Start: 1992 Pneumococcal Vaccine: Age 50+ (1 of 1 - PCV) Pneumococcal Vaccine: Age 50+ (1 of 1 - PCV) [facility] Start: 1992 Shingles vaccine (1 of 2) Shingles vaccine (1 of 2) [facility] Start: 1982 Screening for malignant neoplasm of breast Mammogram [facility] Start: 1954 Depression Screen Depression Screen [employer] Start: 1954 Depression screening using PHQ-9 (Patient Health Questionnaire 9) score [facility] Start: 1945 History and physical examination, annual for health maintenance Wellness Visit [facility] Start: 1945 Medicare Wellness Visit Medicare Wellness Visit [facility] Start: 1942 COVID-19 Vaccine (#1) COVID-19 Vaccine (#1) [facility] Start: 1942 Medicare Annual Wellness (AWV) Medicare Annual Wellness (AWV) [facility] Start: 1942 Screening for osteoporosis Dexa Scan [facility] End: 11-07-2023 CBC W Auto Differential panel - Blood CBC auto differential Lab Routine Tomorrow AM for 99 Occurrences starting 08/01/2023 until 11/07/2023, 3 completed [employer] Comment on above: Tomorrow AM for 99 Occurrences starting 08/01/2023 until 11/07/2023, 3 completed End: 11-07-2023 Comprehensive Metabolic Panel w/ Reflex to MG Comprehensive Metabolic Panel w/ Reflex to MG Lab Routine Tomorrow AM for 99 Occurrences starting 08/01/2023 until 11/07/2023, 3 completed [employer] Comment on above: Tomorrow AM for 99 Occurrences starting 08/01/2023 until 11/07/2023, 3 completed Culture, Anaerobic a nd Aerobic [employer] Comment on above: Release Upon Ordering for 1 Occurrences starting 07/31/2023 Oxygen therapy [Mini mum Data Set] Initiate Oxygen Therapy Protocol Respiratory Care Routine As Needed until discontinued starting 07/17/2023 [employer] Comment on above: As Needed until discontinued starting Oxygen therapy [Mini mum Data Set] Initiate Oxygen Therapy Protocol Respiratory Care Routine As Needed until discontinued starting 07/31/2023 [employer] Comment on above: As Needed until discontinued starting Surgical Pathology Surgical Path ology Lab Routine Wound dehiscence Release Upon Ordering for 1 Occurrences starting 07/17/2023 [employer] Comment on above: Release Upon Ordering for 1 Occurrences starting 07/17/2023 End: 07-17-2023 SURGICAL PATHOLOGY REPORT SURGICAL PATHOLOGY REPORT Lab Routine Once for 1 Occurrences starting 07/17/2023 until 07/17/2023 [facility] Comment on above: Once for 1 Occurrences starting 07/17/19 24 until 07/17/2023 Immunizations Immunization Date Immunization Notes Care Provider Harmony vu 08-07-2013 tetanus toxoid, reduced diphtheria toxoid, and acellular pertussis vaccine, adsorbed KIA SAMUEL [facility] 03-19-2004 tetanus and diphther ia toxoids, adsorbed, preservative free, for adult use (2 Lf of tetanus toxoid and 2 Lf of diphtheria toxoid) KIA SAMUEL [facility] NEGATED: Highlighted row has not occurred!04-10-2024 influenza virus vaccine, unspecified formulation Camila Carlos [facility] Payers Date Payer Category Payer Private Health Insurance [id number] 2024 Managed Care (unspecified) [employer] OTHER AFTER MEDICARE [id number] 2023 Private Health Insurance [id number] 2007 Medicare [id number] 2007 Medicare [id number] 1959 Unknown [id number] 1942 Unknown [id number] 2.16.840.1.803299.3.579. 2.593 1942 Unknown [id number] 2.16.840.1.775285.3.579. 2.174 1942 Unknown [id number] 2.16.840.1.353327.3.579. 2.173 1942 Unknown [id number] 2.16.840.1.591865.3.579. 2.173 1942 Unknown [id number] 2.16.840.1.873944.3.579. 2.173 1942 Unknown [id number] 2.16.840.1.235357.3.579. 2.173 1942 Unknown [id number] 2.16.840.1.169974.3.579. 2.173 1942 Unknown [id number] 2.16.840.1.839632.3.579. 2.173 1942 Unknown [id number] 2.16.840.1.182348.3.579. 2.1286 1942 Unknown [id number] 2.16.840.1.974649.3.579. 2.903 1942 Unknown [id number] 2.16.840.1.192586.3.579. 2.903 1942 Unknown [id number] 2.16.840.1.578201.3.579. 2.903 1942 Unknown [id number] 2.16.840.1.042775.3.579. 2.1347 1942 Unknown [id number] 2.16.840.1.090116.3.579. 2.727 1942 Unknown [id number] 2.16.840.1.946300.3.579. 2.727 1942 Unknown [id number] 2.16.840.1.394955.3.579. 2.727 1942 Unknown [id number] 2.16.840.1.853759.3.579. 2.727 1942 Unknown [id number] 2.16.840.1.629256.3.579. 2.727 1942 Unknown [id number] 2.16.840.1.558655.3.579. 2.727 1942 Unknown [id number] 2.16.840.1.064986.3.579. 2.727 1942 Unknown [id number] 2.16.840.1.465298.3.579. 2.727 1942 Unknown [id number] 2.16.840.1.892832.3.579. 2.1259 1942 Unknown [id number] 2.16.840.1.383186.3.579. 2.718 1942 Unknown [id number] 2.16.840.1.283697.3.579. 2.727 1942 Unknown [id number] 2.16.840.1.928881.3.579. 2.727 1942 Unknown [id number] 2.16.840.1.701298.3.579. 2.727 1942 Unknown [id number] 2.16.840.1.787767.3.579. 2.72 1942 Unknown [id number] 2.16.840.1.211045.3.579. 2.727 1942 Unknown [id number] 2.16.840.1.842154.3.579. 2.727 1942 Unknown [id number] 2.16.840.1.816120.3.579. 2.727 1942 Unknown [id number] 2.16.840.1.996670.3.579. 2.72 1942 Unknown [id number] 2.16.840.1.018459.3.579. 2.727 Social History Date Type Detail Facility Tobacco smoking stat us TNIS Tobacco smoking consumption unknown [facility] Start: 1940 Sex Assigned At Not on file [facility] Start: 04-08-2022 End: 05-09-2022 Exposure to SARS-CoV-2 (event) Not sure [facility] Start: 04-04-2023 End: 10-28-2024 Tobacco smoking status Never smoked tobacco (finding) [facility] Comment on above: denies use. Tobacco smoking status Never [facility] Comment on above: denies use. Start: 06-20-2023 End: 10-28-2024 Sex Assigned At Female [facility] Start: 07-17-2023 End: 08-03-2023 Alcohol intake Current non-drinker of alcohol (finding) [employer] Start: 07-17-2023 End: 10-28-2024 Alcohol intake [employer] Has the [email or web address], [employer], or water [employer] threatened to shut off services in your home in past 12Mo No [employer] How often to you hav e a drink containing alcohol? Never [employer] (I/We) worried zenaida er (my/our) food would run out before (I/we) got money to buy more. Never true [employer] Start: 07-28-2024 Health-related behavior (observable entity) Caffeine Use Details [facility] Start: 07-28-2024 Tobacco use and exposure Non-Smoking Tobacco Use Details [facility] Sex Assigned At Female [facility] Sexual Orientation [facility] [place] Sex Female (finding) [facility] Start: 10-28-2024 Tobacco use and exposure Smokeless tobacco non-user [facility] Start: 10-28-2024 Alcoholic beverage intake Lifetime non-drinker (finding) [facility] NEGATED: Highlighted rowStart: 07-28-2024 Tobacco smoking status NHIS Never smoker [facility] NEGATED: Highlighted row Alcohol intake Alcohol Use Details [facility] NEGATED: Highlighted rowStart: 07-28-2024 History of tobacco use Current non-smoker [facility] Clinical Notes 03-30-2022 to 10-28-2024 Cuauhtemoc Jacobo MD - 10/28/2024 8:40 AM EDT Note Date & Type Note Facility 10-28-2024 History of Present illness Narrative Subjective Patient ID: Micheal Brice is a 84 y.o. female who presents for Thyroid Nodule Pt reports she has been having heat intolerance and part of W/U included a thyroid US. TFTs done, but not provided. US shows a [id number] left inf lobe nodule with microcalcifications. No TRADS score provided. Radiology report notes that there has been no sig change since 2020 US and that pt has a h/o bx, though pt states this has never been biopsied. Review of Systems All other systems reviewed and are negative. No family history on file. Active Ambulatory Problems Diagnosis Date Noted Acute pain of left shoulder 10/22/2024 Adult BMI 37.0-37.9 kg/sq m 10/22/2024 History of paranoid disorder 10/22/2024 Memory impairment 10/22/2024 Mixed hyperlipidemia 10/22/2024 Post-menopause bleeding 10/22/2024 Resolved Ambulatory Problems Diagnosis Date Noted No Resolved Ambulatory Problems No Additional Past Medical History Past Surgical History: Procedure Laterality Date ANKLE FRACTURE SURGERY CHOLECYSTECTOMY FINGER AMPUTATION MOLE REMOVAL nose and back THUMB AMPUTATION TOTAL KNEE ARTHROPLASTY Right No Known Allergies Current Outpatient Medications on File Prior to Visit Medication Sig Dispense Refill amLODIPine (Norvasc) 5 MG tablet Take by mouth calcium carbonate 1500 (600 Ca) MG tablet Take 1,200 mg by mouth in the morning. carboxymethylcellulose (Refresh Liquigel) 1 % ophthalmic solution dropperette Cyanocobalamin 1000 MCG/ML liquid Take 1 tablet by mouth in the morning. ergocalciferol (Vitamin D2) 1.25 MG (81984 UT) capsule Take 1 capsule by mouth once a week lactobacillus (Culturelle) capsule Take 1 capsule by mouth in the morning and 1 capsule in the evening. Take with meals. omega-3 acid ethyl esters (Lovaza) 1 g capsule Take 2 g by mouth in the morning and 2 g in the evening. pyridoxine (Vitamin B-6) 25 MG tablet take 1 tab po qd/bid No current facility-administered medications on file prior to visit. Objective Last Recorded Vitals Vitals: 10/28/24 0825 BP: 131/70 Pulse: 82 ENT Physical Exam Constitutional Appearance: patient appears well-developed, well-nourished and well-groomed, Head and Face Appearance: head appears normal and face appears atraumatic; Ear Ear Canals: right ear canal normal; left ear canal normal; Tympanic Membranes: right tympanic membrane normal; left tympanic membrane normal; Nose External Nose: nares patent bilaterally; external nose normal; Internal Nose: septum normal; Oral Cavity/Oropharynx Tongue: normal; Oral mucosa: normal; Hard palate: normal; Soft palate: normal; Tonsils: normal; Neck Neck: neck normal; neck palpation normal; Thyroid: thyroid normal; Respiratory Inspection: breathing unlabored; normal breathing rate; Auscultation: breath sounds are clear; Cardiovascular Inspection: extremities are warm and well perfused; no peripheral edema present; Auscultation: regular rate and rhythm; Assessment/Plan Diagnoses and all orders for this visit: Thyroid mass Pt has a fairly large left thyroid nodule. I will arrange for an US-guided FNA to assess whether can be safely followed with periodic US or if removal needed ADDENDUM - TSH 0.08. Thyroid nodule was 33mm in 2020. Pt needs to be referred to Dr Rosen for eval and tx of hyperthyroidism documented in this encounter [facility] 10-22-2024 Note Patient Education Endocrinology Thyroid Nodule A thyroid nodule is an isolated growth of thyroid cells that forms a lump in the thyroid gland. The thyroid gland is a butterfly-shaped gland found in the lower front of the neck. It sends chemical messengers (hormones) through the blood to all parts of the body. These hormones are important in regulating body temperature and helping the body use energy. Thyroid nodules are common. Most are not cancerous (are benign). You may have one nodule or several nodules. There are different types of thyroid nodules. They include nodules that: ??? Grow and fill with fluid (thyroid cysts). ??? Produce too much thyroid hormone (hot nodules or hyperthyroid). ??? Produce no thyroid hormone (cold nodules or hypothyroid). ??? Form from cancer cells (thyroid cancers). What are the causes? In most cases, the cause of thyroid nodules is not known. What increases the risk? The following factors may make you more likely to develop thyroid nodules: ??? Age. Thyroid nodules are more common in people who are older than 45 years. ??? Female gender. ??? A family history that includes: ? Thyroid nodules. ? Pheochromocytoma. ? Thyroid carcinoma. ? Hyperparathyroidism. ??? Certain thyroid diseases, such as Tyler's thyroiditis. ??? Lack of iodine in your diet. ??? A history of head and neck radiation, such as from cancer treatments. ??? Type 2 diabetes. What are the signs or symptoms? In many cases, there are no symptoms. If you have symptoms, they may include: ??? A lump in your lower neck. ??? Feeling pressure, fullness, or a tickle in your throat. ??? Pain in your neck, jaw, or ear. ??? Having trouble swallowing or breathing. Hot nodules may cause: ??? Weight loss. ??? Warm, flushed skin. ??? Feeling hot. ??? Feeling nervous. ??? A rapid or irregular heartbeat. Cold nodules may cause: ??? Weight gain. ??? Dry skin. ??? Hair loss, brittle hair, or both. ??? Feeling cold. ??? Fatigue. Thyroid cancer nodules may cause: ??? Hard nodules that can be felt along the thyroid gland. ??? Hoarseness. ??? Lumps in the tissue (lymph nodes) near your thyroid gland. How is this diagnosed? A thyroid nodule may be felt by your health care provider during a physical exam. This condition may also be diagnosed based on your symptoms. You may also have tests, including: ??? Blood tests to check how well your thyroid is working. ??? An ultrasound. This may be done to confirm the diagnosis. ??? A biopsy. This involves taking a sample from the nodule and looking at it under a microscope. ??? A thyroid scan. This test creates an image of the thyroid gland using a radioactive tracer. ??? Imaging tests such as an MRI or CT scan. These may be done if: ? A nodule is large. ? A nodule is blocking your airway. ? Cancer is suspected. How is this treated? Treatment depends on the cause and size of your nodule or nodules. If a nodule is benign, treatment may not be necessary. Your health care provider may monitor the nodule to see if it goes away without treatment. If a nodule continues to grow, is cancerous, or does not go away, treatment may be needed. Treatment may include: ??? Having a cystic nodule drained with a needle. ??? Ablation therapy. In this treatment, alcohol is injected into the area of the nodule to destroy the cells. Ablation with heat may also be used. This is called thermal ablation. ??? Radioactive iodine. In this treatment, radioactive iodine is given as a pill or liquid that you drink. This substance causes the thyroid nodule to shrink. ??? Surgery to remove the nodule or nodules. Part or all of your thyroid gland may also need to be removed. ??? Medicines to treat hyperthyroidism. Follow these instructions at home: ??? Pay attention to any changes in your thyroid nodule or nodules. ??? Take rgyq-[id number] and prescription medicines only as told by your health care provider. ??? Keep all follow-up visits. This is important. Contact a health care provider if: ??? You have trouble sleeping. ??? You have muscle weakness. ??? You have significant weight loss without changing your eating habits. ??? You feel nervous. ??? You have trouble swallowing. ??? You have increased swelling. ??? You have a rapid or irregular heartbeat. Get help right away if: ??? You have chest pain. ??? You faint or lose consciousness. ??? Your nodule makes it hard for you to breathe. These symptoms may be an emergency. Get help right away. Call 911. ??? Do not wait to see if the symptoms will go away. ??? Do not drive yourself to the hospital. Summary ??? A thyroid nodule is an isolated growth of thyroid cells that forms a lump in your thyroid gland. ??? Thyroid nodules are common. Most are not cancerous. ??? Your health care provider may monitor the nodule to see if it goes away without treatment. If a nodule contin (more content not included)... [facility] 10-21-2024 Note General Surgery Offi ce/Clinic Note Chief Complaint consultation for lipoma HPI Staff 84 year old female presents on consultation from Camila Carlos for right upper arm mass. Reports noting mass approximately 10 years ago. Verbalized mass has been stable in size. Denies discomfort or tenderness. US completed at [facility] 04/28/24 with probable lipoma. History of Present Illness 84 yo female with h/o htn, hypercholesterolemia, referred for lipoma right upper arm; noticed this 20 years ago, gradually increased in size; recent US consistent with likely lipoma; no pain or skin changes, no h/o other similar lesions; no asa or NSAID use; no tobacco use. Review of Systems PHQ Score Initial Depression Screen Score: 0 SCORE ROS - Provider Constitutional: no fever, no sweats, no weight loss. Eyes: yes glasses, no blurred vision, no visual loss. ENMT: no dentures, no hoarseness, no swallowing difficulties, no hearing loss, no ear infection(s), no nose bleeds. Cardiovascular: normal blood pressure, no chest pain, regular heartbeat, no heart murmur. Respiratory: no shortness of breath, no cough, no asthma, no wheezing. Gastrointestinal: no nausea, no vomiting, no diarrhea, no constipation, no blood in stool, no change in bowel habits, no abdominal pain, no hepatitis. Genitourinary: no kidney stones, no urine infection, no dysuria. Musculoskeletal: no pain, no weakness. Skin: no changing moles, no rash, yes skin lumps. Neurologic: no seizures, no epilepsy, no headache. Psychiatric: no emotional or psychiatric problem. Heme/Lymph: no bleeding problems, no anemia, no blood clots, no transfusions. Allergy/Immunologic: no swollen lymph nodes/glands, no IV drug abuse. Other: Additional ROS info: Except as noted in the above Review of Systems and in the History of Present Illness, all other systems have been reviewed and are negative or noncontributory. Physical Exam Vitals & Measurements HR: 80(Peripheral) RR: 16 BP: 104/68 HT: 62 in HT: 158 cm WT: 182.322 lb WT: 82.7 kg BMI: 33.13 Respiratory: lungs CTA, respirations non labored. Cardiovascular: regular rate and rhythm, no murmur, no pedal edema or varicosities. Gastrointestinal: soft, non distended, no tenderness, no masses, no palpable hernias, diastasis recti no, no hepatosplenomegaly; normal bs Musculoskeletal: normal gait, digits and nails without infection, nodes, cyanosis, clubbing. Skin: no rashes, no lesions, no ulcers, 3 x 2.5 cm soft subcutaneous mass lateral upper arm, no skin changes, nontender Psychiatric/Neuro: oriented to time, place, person, judgement normal, affect appropriate for age, insight intact, no focal deficits. Tests: , x-rays reviewed, review of old records completed , Discussed surgical options, risks, and possible complications with patient. Assessment/Plan 1. Lipoma of upper arm (D17.20: Benign lipomatous neoplasm of skin and subcutaneous tissue of unspecified limb) plan excisional biopsy under local anesthesia at [facility], informed consent obtained. Follow-up No qualifying data available Problem List/Past Medical History Ongoing BMI 33.0-33.9,adult Excessive sweating Flank pain Ganglion cyst of dorsum of right wrist Hair thinning Hypercholesteremia Hypertension Hyperthyroidism Lipoma of arm Lipoma of back Lipoma of upper arm Mass of soft tissue of upper arm Obesity due to excess calories S/P cholecystectomy Skin texture changes Wart of hand Historical No qualifying data Procedure/Surgical History Cholecystectomy (2023), Amputation of thumb, Arthroplasty of right knee, Cataract, Closed fracture of ankle, Excision of lesion of skin, Lysis of adhesions, Repair of incisional hernia, Stomach. Medications Acidophilus Probiotic Blend, 1 cap(s), Oral, BID, Not taking amLODIPine 5 mg Tab, 5 mg= 1 tab(s), Oral, Daily, 3 refills, Not taking calcium (as carbonate) 600 mg oral tablet, 1200 mg= 2 tab(s), Oral, Daily, 3 refills Vitamin D 50,000 intl units (1.25 mg) oral capsule, 9[address]88 International_Unit= 1 cap(s), Oral, qWeek, 4 refills Allergies No Known Allergies Social History Alcohol - Denies Alcohol Use, 04/04/2023 Past. Beer, Liquor. Daily., 10/14/2024 Substance Abuse Never, 04/10/2024 Tobacco - Denies Tobacco Use, 04/04/2023 Never (less than 100 in lifetime) Tobacco Use:. Never Smokeless Tobacco Use:., 10/21/2024 Family History CABG - Coronary artery bypass graft: Negative: Mother, Father, Sister and Brother. Diabetes mellitus type 2: Sister. Open heart surgery: Mother. 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 Bilateral. 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 Bilateral. Condition: stable impression Hypertension: I10 [facility] Work Phone: 1([phone]) 475-821705-12-2025 History of Present illness Narrative* Encounter Date Complaint History Of Prese nt Illness DRY AMD The 84 year old female presents for New Patient evaluation of DRY AMD in the right and left eyes. Patient has a history of Syfovre injections OU. Patient states that she has been getting injections since May of last year. Patient states that she does occasionally see a floater, but she denies any flashes of light. Patient denies any ocular pain. [facility] Work Phone: 1(276) 650-880505-12-2025 Instructions* Date Instruction Additional Infor pamela Return 6 months DFE/OCT/ Colors Related to Nexdtve age-related mclr degn, bilateral, intermed dry stage Impression/Plan Related to Nexdt ve age-related mclr degn, bilateral, intermed dry stage Impression/Plan Related to Choro idal Nevus OS Impression/Plan Related to Pseud ophakia Impression/Plan Related to Hyper tension [facility] Work Phone: [phone] NoteSubjective: Patient ID: Micheal Brice is a 84 y.o. female. HPI: She is complaining of a few weeks of shocklike pain from her hip down to her right foot. She is also having pain in her left knee. A lot of this is posterior but it is generalized throughout the left knee. She was doing a lot of work at the house lifting and picking up rocks and going up and down ladders. The following portions of the patient's history [...] Gastrointestinal: Negative for vomiting. Musculoskeletal: Positive for arthralgias and back pain. Negative for gait problem and joint swelling. Skin: Negative for color change. Neurological: Negative for numbness. Hematological: Does not bruise/bleed easily. Psychiatric/Behavioral: The patient is not nervous/anxious. Problem List[1] Objective: General: alert, appears stated age, and cooperative Motion: Flexion: 0 to 120 Degrees Knee Strength: 5/5 throughout knee extensors and flexors Knee Stability: No instability of the knee DVT Exam: No evidence of DVT seen on physical exam. Imaging Studies: XR Lumbar Spine 2-3 Views (Standard) Result Date: 06/13/2024 AP lateral views lumbar spine show multilevel degenerative change with mild L4-L5 spondylolisthesis XR Knees Standing Bilateral AP/ LAT Each Result Date: 06/13/2024 Multiple radiographic views were obtained and reviewed of the Right knee. 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 There are no obvious signs of fracture, significant polyethylene wear, radiolucent lines about the prosthesis, failure, or other obvious abnormality . Multiple radiographic views were obtained and reviewed of the Left knee. There is arthritic change present tri-compartmental with varus overall alignment. The arthritic change is moderate with associated joint space narrowing, subchondral sclerosis, and osteophyte formation present. There is no obvious fracture or other osseous abnormality present Assessment: 1. History of total right knee replacement 2. Spinal stenosis, lumbar region, without neurogenic claudication LG Jt Injection/Arthrocentesis: L knee Performed by: Luis Felipe Lopes MD Authorized by: Luis Felipe Lopes MD CPT 53584 - Large Joint Arthrocentesis: Consent given by: Patient Time out: Immediately prior to the procedure a time out was called Physician or proceduralist has discussed critical or nonroutine steps, procedure duration and anticipated blood loss: Yes Supporting Documentation: Indications: Pain Procedure Details: Location: Knee Site: L knee Prep: patient was prepped and draped in usual sterile fashion Needle size: 22 G Approach: Anterolateral Medications: 80 mg triamcinolone acetonide 40 mg/mL Anesthetic used: Bupivacaine 0.5% Anesthetic amount (mL): 2 Patient tolerance: Patient tolerated the procedure well with no immediate complications Plan: Reviewed the x-rays with she and her son. Currently her right knee looks good. She does have progressive left knee osteoarthritis. We did advise a left knee steroid injection to see how much pain is coming from her arthritis itself. Because she also has an L4-L5 spondylolisthesis. She is advised to avoid ladders and heavy lifting to see if her back will return to normal. She states that this has improved quite a bit since she initially had the pain and is not having the radiculopathy. She does that she can have a repeat injection in 3 to 4 months. Otherwise we will see her in a year for evaluation. No orders of the defined types were placed in this encounter. Return in about 1 year (around 06/13/2025) for Annual physical, xrays. Note: To expedite correspondence this note was generated by [employer] voice recognition software. Some grammatical or spelling errors may occur using the system. [1] There is no problem list on file for this patient. AUTHENTICATED BY LUIS FELIPE LOPES, ON 06/13/2024 10:56:26[place] [facility] History of Present illness Narrative* Luis Felipe Lopes MD - 06/13/2024 10:52 AM EDTAssociated Order(s): LG Jt Injection/Arthrocentesis: L knee Post-Procedure Diagnose(s): Primary osteoarthritis of left knee Subjective: Patient ID: Micheal Brice is a 84 y.o. female. HPI: She is complaining of a few weeks of shocklike pain from her hip down to her right foot. She is also having pain in her left knee. A lot of this is posterior but it is generalized throughout the leftknee. She was doing a lot of work at the house lifting and picking up rocks and going up and down ladders. The following portions of the patient's history were reviewed and updated as appropriate: allergies, current medications, past family history, past medical history, past social history, past surgicalhistory, and problem list. Review of Systems Constitutional: Negative for chills and fever. HENT: Negative for dental problem. Respiratory: Negative for shortness of breath. Cardiovascular: Negative for chest pain and leg swelling. Gastrointestinal: Negative for vomiting. Musculoskeletal: Positive for arthralgias and back pain. Negative for gait problem and joint swelling. Skin: Negative for color change. Neurological: Negative for numbness. Hematological: Does not bruise/bleed easily. Psychiatric/Behavioral: The patient is not nervous/anxious. Problem List[1] Objective: General: alert, appears stated age, and cooperative Motion: Flexion: 0 to 120 Degrees Knee Strength: 5/5 throughout knee extensors and flexors Knee Stability: No instability of the knee DVT Exam: No evidence of DVT seen on physical exam. Imaging Studies: XR Lumbar Spine 2-3 Views (Standard) Result Date: 06/13/2024 AP lateral views lumbar spine show multilevel degenerative change with mild L4- L5 spondylolisthesis XR Knees Standing Bilateral AP/ LAT Each Result Date: 06/13/2024 Multiple radiographic views were obtained and reviewed of the Right knee. 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 There are no obvious signs of fracture, significant polyethylene wear, radiolucent lines about the prosthesis, failure, or other obvious abnormality . Multiple radiographic views were obtained and reviewed of the Left knee. There is arthritic change present tri-compartmental with varus overall alignment. The arthritic change is moderate with associated joint space narrowing, subchondral sclerosis, and osteophyte formation present. There is no obvious fracture or other osseous abnormality present Assessment: 1. History of total right knee replacement 2. Spinal stenosis, lumbar region, without neurogenic claudication LG Jt Injection/Arthrocentesis: L knee Performed by: Luis Felipe Lopes MD Authorized by: Luis Felipe Lopes MD CPT 63438 - Large Joint Arthrocentesis: Consent given by: Patient Time out: Immediately prior to the procedure a time out was called Physician or proceduralist has discussed critical or nonroutine steps, procedure duration and anticipated blood loss: Yes Supporting Documentation: Indications: Pain Procedure Details: Location: Knee Site: L knee Prep: patient was prepped and draped in usual sterile fashion Needle size: 22 G Approach: Anterolateral Medications: 80 mg triamcinolone acetonide 40 mg/mL Anesthetic used: Bupivacaine 0.5% Anesthetic amount (mL): 2 Patient tolerance: Patient tolerated the procedure well with no immediate complications Plan: Reviewed the x-rays with she and her son. Currently her right knee looks good. She does have progressive left knee osteoarthritis. We did advise a left knee steroid injection to see how much pain is coming from her arthritis itself. Because she also has an L4-L5 spondylolisthesis. She is advised toavoid ladders and heavy lifting to see if her back will return to normal. She states that this has improved quite a bit since she initially had the pain and is not having the radiculopathy. She does that she can have a repeat injection in 3 to 4 months. Otherwise we will see her in a year for evaluation. No orders of the defined types were placed in this encounter. Return in about 1 year (around 06/13/2025) for Annual physical, xrays. Note: To expedite correspondence this note was generated by [employer] voice recognition software. Somegrammatical or spelling errors may occur using the system. [1] There is no problem list on file for this patient. documented in this [id number] NotePatient Education Cardiovascular Hypertension, Adult Hypertension is another name for high blood pressure. High blood pressure forces your heart to workharder to pump blood. This can cause problems [...] at each meal with low-fat (lean) proteins. Low- fat proteins includefish, chicken without skin, eggs, beans, and tofu. [...] Keep all follow-up visits. Medicines ??? Take xhql-msd-daogsod and prescription medicines only as told by your doctor. Follow directionscarefully. ??? Do not skip doses of blood [...] ??? Hypertension is a (more content not included)...[facility] 08-03-2023 History of Present illness Narrative* Osei Hancock RN - 08/03/2023 7:15 PM EDT Patient escorted off unit and discharged at this time. No additional requests from telegraphic typewriter operator chief. * Chloe Torres RN - 08/03/2023 6:40 PM EDT Dampener Operator reviewed discharge instructions with the patient. Reviewed medications, follow up appointments, and when to seek medical attention. Patient is aware of outpatient wound care BID 7 am and 7 pm.Wound care instructions given to the patient as well. Patient denies further questions. Patient's son will be driving her home. * Chloe Torres RN - 08/03/2023 3:00 PM EDT Patient requested to put medicated honey on wound. Dampener Operator spoke with Dr. Castañeda and he states to only use iodoform on wound. No medicated honey. Dampener Operator notified the patient who is agreeable. * Luis Felipe Castañeda MD - 08/03/2023 12:48 PM EDT Postoperative day #3 Patient status post incision and drainage of a confined abscess associated with an incisional woundnear the umbilicus patient has no specific complaints [...] in the next 7 to 10 days * Chloe Torres RN - 08/03/2023 11:44 AM EDT Dampener Operator arrived to bedside at this time after notification from [facility] Henny that patient had accidentally removed IV. Patient states they accidentally pulled IV out when they were using the restroom. Site assessed, no complications. Care ongoing. * Chloe Torres RN - 08/03/2023 9:01 AM EDT Patient is walking the halls independently at this time. * Radhika Magana MD - 08/03/2023 6:33 AM EDT Images from the original note were not included. [address] [place], [place], [address] Progress Note Date: 08/03/2023 Patient name: Micheal [...] Foot surgery (Right); Colonoscopy; Tonsillectomy and adenoidectomy; [place] tooth extraction; Thumb amputation (Right); Finger replantation (Right); Cholecystectomy, l aparoscopic (N/A, 06/20/2023); Umbilical hernia repair (N/A, 07/17/2023); [...] tablet by mouth daily Jarek Strickland MD ALLERGIES: Patient has no known allergies. [...] clubbing or edema DIAGNOSTICS: Laboratory Testing: See [facility] EMR for lab data No results found [...] sodium chloride 0.9 % 50 mL IVPB ([id number]) 3,375 mg IntraVENous Q8H Luis Felipe Castañeda [...] this chart was generated using voice recognition [employer] dictation software. Although every effort was made to ensure the accuracy of this automated inpatient auditor, some errors in inpatient auditor may have occurred. Radhika Magana MD 08/03/2023 6:33 AM * Chloe oTrres RN - 08/03/2023 6:29 AM EDT Vitals and assessment complete at this time. [...] denies further needs at this time. Call lightis within reach. Care ongoing. * Angela Ladd RN - 08/03/2023 12:20 AM EDT Dressing changed on abdomen at this time. Patient tolerated well. Denies any further needs or concerns at this time. Call light and over bed table within reach. Side rails up times two. * Angela Ladd RN - 08/02/2023 11:10 PM EDT Patient in bed, resting with eyes closed. Reassessment completed at this time. Vitals taken and documented. Patient encouraged to ask questions. Patient denies pain or complaints. PRN percocet given due to dressing change to be completed. Zosyn hung per orders. Call light and bed side table within reach. Side rails up times two. * Angela Ladd RN - 08/02/2023 8:00 PM EDT Son present in room at this time. All questions answered. * Angela Ladd RN - 08/02/2023 6:45 PM EDT Patient in chair, reading. Patient educated on medication to be given tonight and physician's orders to be completed. Patient stated understanding. Patient encouraged to ask questions. Patient deniesof any questions at this time. Vitals taken and documented. See flow sheet for details. Assessment completed and documented. Patient alert, oriented x4. Calm, pleasant. Speech clear. Lung sounds clear throughout lung lobes. No cough noted. Abdomen round, soft, tenderness to palpation in Umbilical region. Bowel sounds active in all four quadrants. Trace non-pitting edema noted in bilateral lower extremities. Scattered abrasionsand ecchymosis noted. Noted dressing to abdomen CDI. Patient denies of pain, chest pain, numbness, tingling, or shortness of breath. Patient denies needs or concerns at this time. Call light and overbed table in reach. Water pitcher refilled. * Luis Felipe Castañeda MD - 08/02/2023 12:50 PM EDT Delayed entry Postoperative day #2 Patient is in good spirits Vital signs are stable she is afebrile Wound is clean the cellulitic change of the anterior abdomen is almost completely gone Assessment and plan continue with Nu Gauze changes twice a day make arrangements for outpatient wound care I suspect the patient shall be discharged tomorrow once the cellulitic changes completely resolved * Ignacio Sanches - 08/02/2023 10:39 AM EDT Spiritual Services Interventions [id number]/[id number] 08/02/2023 Ignacio Brice [...] Assessment: (P) Calm Intervention: (P) Prayer (assurance of)/[place], Discussed belief system/episcopalian practices/ly, Discussed illness injury and it s impact Outcome: (P) Encouraged, Engaged in conversation * Michelle Cox MD - 08/02/2023 8:13 AM EDT Progress Note SUBJECTIVE: FU related to denies [...] 2015.33 ml Output -- Net 2016.33 ml Exam: General: alert HEENT: Supple neck & negative Heart: Regular Lungs: clear to auscultation bilaterally & no retractions Abdomen: Wound being is noted Extremities: No edema Neuro: NonFocal Diagnostic Data: Lab Results Component Value Date [...] There is no hydronephrosis or calculi. Ureters arenon-dilated. Abdominal aorta and branches: Normal in caliber. IVC and portal vein: Normal in caliber. GI/Bowel: Bowel loops are normal in wall-thickness and caliber. Scattered left-sided colonic diver ticulosis is seen. No evidence of appendicitis. Peritoneum/Retroperitoneum: Normal PELVIS There is evidence of septated uterus. Enhancing finding at along the right lateral aspect of the uterus measures 2.2 cm, likely a fibroid. Bones/Soft Tissues: Degenerative changes are seen in the lumbar spine.No lytic or blastic lesions are seen. there is generalized body wall edema. There is seen periumbilical rim enhancing collection measuring 3.7 x 3.6 x 4.0 cm with surrounding soft tissue swelling. 1. Periumbilical rim enhancing collection measuring 3.7 x 3.6 x 4.0 cm with surrounding soft tissueswelling. 2. Septated uterus with probable fibroid. 3. [...] and wound care. Critical Care Time: 0 [facility] Advanced Care Planning documentation: [x] I have confirmed that the patient's Advance Care Plan is present, Code Status is documented, orsurrogate decision maker is listed in the patient's [...] the patient's medical record. [DOES NOT SATISFY [facility] PERFORMANCE] Michelle Cox MD , M.D. * Chloe Torres RN - 08/02/2023 7:31 AM EDT Vitals and assessment complete at this time. [...] better. Patient denies further needs. Care ongoing. * Angela Ladd RN - 08/02/2023 12:15 AM EDT Dressing change completed at this time. Patient tolerated well. Patient's gown changed with assistance. Denies any further needs or concerns at this time. Trash taken out of room. Call light and overbed table within reach. Side rails up times two. * Angela Ladd RN - 08/01/2023 11:30 PM EDT Patient awake, in bed. Reassessment completed at this time. Vitals taken and documented. Patient encouraged to ask questions. Patient denies pain or complaints. PRN pain medication given due to pending wound dressing change. Call light and bed side table within reach. Side rails up times two. * Angela Ladd RN - 08/01/2023 9:45 PM EDT IV fluids changed. Antibiotic hung. Patient up to bathroom independently at this time. Denies any further needs or concerns at this time. * Angela Ladd RN - 08/01/2023 6:45 PM EDT Patient in chair, watching television. Son present at bedside. Patient educated on medication to begiven tonight and physician's orders to be completed. [...] light and over bed table in reach. * Olivia Richmond RN - 08/01/2023 2:42 PM EDT Dressing change completed at this time per order. Packing removed and replaced with new iodoform packing and covered with dry dressing of ABD and tape. Patient tolerated fairly well. Care ongoing. * Luis Felipe Castañeda MD - 08/01/2023 12:51 PM EDT Delayed entry Postoperative day #1 Patient is in good spirits she states that the incisional pain has almost completely resolved Vital signs are stable she is afebrile The cellulitic changes still apparent on the anterior abdomen the wound itself is clean and dry Assessment and plan I would continue to treat the patient with IV antibiotics continue the dressingchanges twice a day basis once the cellulitic change and resolved the patient can be discharged home on an outpatient basis * Michelle Cox MD - 08/01/2023 7:48 AM EDT Progress Note SUBJECTIVE: FU related to denies pain. Feels pretty good. Wants to walk. OBJECTIVE: Vitals: TEMPERATURE: Current - Temp: 96.8 F (36 C); Max - Temp Av.2 F (36.2 C) Min: 96.8 F (36 C) Max:97.9 F (36.6 C) RESPIRATIONS RANGE: Resp Av.6 [...] 1182.4 ml Output -- Net 1182.4 ml Exam: General: alert HEENT: Supple neck & negative Heart: Regular Lungs: clear to auscultation bilaterally & no retractions Abdomen: Normal & soft, No tenderness and BS normal Extremities: No edema Neuro: NonFocal Diagnostic Data: Lab Results Component Value Date [...] There is no hydronephrosis or calculi. Ureters arenon-dilated. Abdominal aorta and branches: Normal in caliber. IVC and portal vein: Normal in caliber. GI/Bowel: Bowel loops are normal in wall-thickness and caliber. Scattered left-sided colonic diver ticulosis is seen. No evidence of appendicitis. Peritoneum/Retroperitoneum: Normal PELVIS There is evidence of septated uterus. Enhancing finding at along the right lateral aspect of the uterus measures 2.2 cm, likely a fibroid. Bones/Soft Tissues: Degenerative changes are seen in the lumbar spine.No lytic or blastic lesions are seen. there is generalized body wall edema. There is seen periumbilical rim enhancing collection measuring 3.7 x 3.6 x 4.0 cm with surrounding soft tissue swelling. 1. Periumbilical rim enhancing collection measuring 3.7 x 3.6 x 4.0 cm with surrounding soft tissueswelling. 2. Septated uterus with probable fibroid. 3. [...] performed. Awaiting cultures. Critical Care Time: 0 [facility] Advanced Care Planning documentation: [x] I have confirmed that the patient's Advance Care Plan is present, Code Status is documented, orsurrogate decision maker is listed in the patient's [...] SATISFY [facility] PERFORMANCE] Michelle Cox MD , M.D. * Yessy Dyer - 08/01/2023 7:45 AM EDT Comprehensive Nutrition Assessment Type and Reason for [...] loss Fluid Accumulation: No significant fluid accumulation Stable Helper Strength: Not Performed Nutrition Assessment: Increased nutrient needs r/t acute injury/trauma AEB surgical site infection. Pt underwent cholecystectomy and hernia repair 2 weeks ago and admitted for infection at surgical site. Pt reported a good appetite and no N/V/D. Active b/s, no edema noted. Pt reported weight prior to surgery 198# and istrying to lose weight. Dampener Operator educated pt on importance of maintaining wt until incision is healed and eating protein foods first to promote good healing. Pt was receptive. Pt also noted she has beenworking to follow nutrition recommendations provided post-op 2 weeks ago. Nutrition Related Findings: active b/s, no edema noted. Wound Type: Surgical Incision Current Nutrition Intake & Therapies: Average Supplements Intake: None Ordered ADULT DIET; Regular Anthropometric Measures: Height: 157.5 cm (5' 2 ) [place] Body Weight (IBW): 110 lbs (50 kg) [...] Used for Energy Requirements: Current Energy (kcal/day): 3037-0615 (15-18) Weight Used for Protein Requirements: [place] Protein (g/day): 75-90 (1.5-1.8) Method Used for Fluid Requirements: 1 ml/kcal Fluid (ml/day): 1600 Nutrition Diagnosis: Increased nutrient needs related to acute injury/trauma as evidenced by other (comment) (surgical site infection) Hematology: Recent Labs 07/31/23 14108/01/23 0545 WBC 11.2 11.9* HGB 11.7* 11.5* [...] Weight Discharge Planning: Too soon to determine Frank Patel Intern Contact: [phone] * Angela Nguyen RN - 07/31/2023 10:46 PM EDT Patient's son, Noe, called for an update. Update given after confirming with pt that it was ok for telegraphic typewriter operator chief to speak with him. * Angela Nguyen RN - 07/31/2023 6:45 PM EDT Admission assessment complete, vitals reviewed. Patient is [...] within reach. Care ongoing. [facility] Dis[facility] instructions* Discharge Instructions* Chloe Torres RN - 08/03/2023 5:27 PM EDT Wound care instructions: Follow up with outpatient care for dressing changes. Wound care instructions per Dr. Castañeda: Dressing changes BID. Wound may be cleansed with soap and water. Patient may shower. No baths. Packwith Iodoform. Cover with small dry dressing. * Discharge Instr - Activity* Chloe Torres RN - 08/03/2023 5:26 PM EDT Activity as tolerated * Discharge Instr - Diet* Chloe Torres RN - 08/03/2023 5:26 PM [...] most local grocery stores, pharmacies, and chain super-stores. If you have any questions about your diet or nutrition, call the hospital and ask for the dietitian. General diet, encourage fluids * Discharge Instr - MALAIKA* Radhika Magana MD - 08/03/2023 4:48 AM [...] for healthcare treatment Living will;Durable power of assembler finger buffs for health care No, copy requested from family -- -- -- Admitting Physician: Michelle Cox MD PCP: Camila Carlos APRN - NP Discharging Nurse: Discharging Hospital Unit/Room#: 0322/0322-01 Discharging Unit Phone Number: Emergency Contact: Extended Emergency Contact Information Primary Emergency Contact: SantiIain Mobile Relation: Child Secondary Emergency Contact: Alejandro Schwartz Address: Relation: Child Past Surgical History: Past Surgical History: Procedure Laterality Date ABDOMEN SURGERY N/A 07/17/2023 UMBILECTOMY OMPHALECTOMY performed by Ramon Olea MD at [facility] OR ABDOMINAL ADHESION SURGERY ABDOMINAL EXPLORATION SURGERY CHOLECYSTECTOMY, LAPAROSCOPIC N/A 06/20/2023 CHOLECYSTECTOMY LAPAROSCOPIC performed by Ramon Olea MD at [facility] OR COLONOSCOPY FINGER REPLANTATION Right index with ori placement and removal FOOT SURGERY Right dislocation STOMACH SURGERY N/A 07/17/2023 SINGLE ANASTOMOSIS OF TRANSVERSE COLON performed by Ramon Olea MD at [facility] OR THUMB AMPUTATION Right partial TONSILLECTOMY AND ADENOIDECTOMY TOTAL KNEE ARTHROPLASTY Right UMBILICAL HERNIA REPAIR N/A 07/17/2023 HERNIA UMBILICAL REPAIR - REVISION UMBILICAL INCISION, Ricther hernia repair with tranverse colon anastomosis performed by Ramon Olea MD at [facility] OR WISDOM TOOTH EXTRACTION Immunization History: [...] C) (Temporal) Resp 16 Ht 1.575 m (5'2 ) Wt 90.4 kg (199 lb 4.8 oz) SpO2 96% BMI 36.45 kg/m Last documented pain score (0-10 scale): Pain Level: 0 Last Weight: Wt Readings from Last 1 Encounters: 08/02/23 90.4 kg (199 lb 4.8 oz) Mental Status: {IP PT MENTAL STATUS:69125} IV Access: { MALAIKA IV ACCESS:514474262} Nursing Mobility/ADLs: Walking {CHP DME ADLs:820381263} Transfer {CHP DME ADLs:643297143} Bathing {CHP DME ADLs:970033874} Dressing {CHP DME ADLs:911018846} Toileting {CHP DME ADLs:224331019} Feeding {CHP DME ADLs:202323653} Flat Knitter Helper {CHP DME ADLs:380081696} Med Delivery { MALAIKA MED Delivery:493181665} Wound Care Documentation and Therapy: Incision 07/31/23 Abdomen Lower;Medial (Active) Dressing Status New dressing applied 08/03/23 0020 Dressing Change Due 08/03/23 08/03/23 0020 Incision Cleansed Soap and water 08/03/23 0020 Dressing/Treatment Packing/iodaform packing;Non-adherent 08/03/23 002 Margins Approximated 08/03/2319 Incision Assessment Dry;Erythema 08/03/2319 Drainage Amount Scant (moist but unmeasurable) 08/03/2319 Drainage Description Clear;Thin 08/02/23 1215 Odor None 08/03/2319 Chelsie-incision Assessment Dry/flaky;Intact;Warm 08/03/2319 Number of days: 2 Elimination: Continence: Bowel: {YES / NO:} Bladder: {YES / NO:} Urinary Catheter: {Urinary Catheter:314068996} Colostomy/Ileostomy/Ileal Conduit: {YES / NO:} Date of Last BM: Intake/Output Summary (Last 24 hours) at 08/03/2023 0448 Last data filed at 08/02/2023 1845 Gross per 24 hour Intake 2816.33 ml Output -- Net 2816.33 ml I/O last 3 completed shifts: In: 2816.3 [P.O.:800; I.V.:1637; IV Piggyback:379.3] Out: - Safety Concerns: { MALAIKA Safety Concerns:173805395} Impairments/Disabilities: { MALAIKA Impairments/Disabilities:639874067} Nutrition Therapy: Current Nutrition Therapy: { MALAIKA Diet List:429127812} Routes of Feeding: {[facility] Other Feedings:928588609} Liquids: {Filters Assembler liquid thickness:64176} Daily Fluid Restriction: {[facility] DME Yes amt example:018192044} Last Modified Barium Swallow with Video (Video Swallowing Test): {Done Not Done Date:} Treatments at the Time of Hospital Discharge: Respiratory Treatments: Oxygen Therapy: {Therapy; copd oxygen:02247} Ventilator: { CC Vent List:294500121} Rehab Therapies: {THERAPEUTIC INTERVENTION:9324103391} Weight Bearing Status/Restrictions: {[facility] Weight Bearin} Other Medical Equipment (for information only, NOT a DME order): {EQUIPMENT:219215346} Other Treatments: Patient's personal belongings (please select all that are sent with patient): {[facility] DME Belongings:184785135} RN SIGNATURE: {Esignature:249041194} CASE MANAGEMENT/SOCIAL WORK SECTION Inpatient Status Date: Readmission Risk Assessment Score: Readmission Risk Risk of Unplanned Readmission: 11 Discharging to Facility/ Agency Name: Address: Phone: Fax: Dialysis Facility (if applicable) Name: Address: Dialysis Schedule: Phone: Fax: Household Appliances Service Technician/Steamfitter Apprentice signature: {Esignature:137037571} PHYSICIAN SECTION Prognosis: {Prognosis:9228199551} Condition at Discharge: {MH Patient Condition:478101086} Rehab Potential (if transferring to Rehab): {Prognosis:7273784115} Recommended Labs or Other Treatments After Discharge: Physician Certification: I certify the above information and transfer of Micheal Brice is necessary for the continuing treatment of the diagnosis listed and that she requires {Admit to AppropriateLevel of Care:38325} for {GREATER/LESS:573717055} 30 days. Update Admission H&P: {CHP DME Changes in HandP:024502214} PHYSICIAN SIGNATURE: * Attachments The following attachments cannot be sent through Care Everywhere. * Abscess: Skin (Kittitian) [facility] History of Present illness Narrative* Rosibel Caba RN - 07/18/2023 3:30 PM EDT Patient discharged home at this time. * Chloe Ford RN - 07/18/2023 3:16 PM EDT Reviewed discharge instructions with patient. Patient aware of need to pickling machine operator prescription. Reviewed new medication and side effects [...] infections and Abdominal Hernia Repair: post-op. Questions answered.Verbalizes understanding. Copy of discharge instructions given to patient. * Ramon Olea MD - 07/18/2023 2:25 PM EDT S. Complains of minimal soreness. Passing flatus, no nausea, tolerating regular diet. O. BP 118/84 Pulse 65 Temp 97.6 F (36.4 C) (Temporal) Resp 17 Ht 1.575 m (5' 2 ) Wt 85 kg(187 lb 6.3 oz) SpO2 97% BMI 34.27 [...] Will go ahead and let her go * Yessy Montes RN - 07/18/2023 9:30 AM EDT Pt ambulating in medel at this time. * Yusuf Monson, RD, LD - 07/18/2023 7:31 AM EDT Comprehensive Nutrition Assessment Type and Reason for Visit: Initial, Patient Education Nutrition Recommendations/Plan: Low fat eating Encourage protein foods Education on low fat post panch[place] Malnutrition Assessment: Malnutrition Status: Mild malnutrition (07/18/23 0803) Context: Acute Illness Findings of the 6 clinical characteristics of malnutrition: Energy Intake: Mild decrease in energy intake (Comment) Weight Loss: Greater than 5% over 1 month Body Fat Loss: No significant body fat loss Muscle Mass Loss: No significant muscle mass loss Fluid Accumulation: Mild Extremities Stable Helper Strength: Not Performed Nutrition Assessment: Food and [...] Measures: Height: 157.5 cm (5' 2 ) [place] Body Weight (IBW): 110 lbs (50 kg) [...] Used for Energy Requirements: Current Energy (kcal/day): 6307-6513 (18-22) Weight Used for Protein Requirements: [place] Protein (g/day): 65-75 (1.3-1.5) Method Used for [...] this time Yusuf Monson RD, AMANUEL Contact: [phone] * Yessy Montes RN - 07/18/2023 6:55 AM EDT Dampener Operator to bedside to complete morning assessment. Upon entry to room, pt sitting up in chair, respirations even and unlabored while on room air. Vitals obtained and assessment completed, see flow sheet for details. Pt denies any pain at this time. Pt denies needs from telegraphic typewriter operator chief at this time. Call light in reach. Care ongoing. * Angela Nguyen RN - 07/17/2023 7:08 PM EDT Patient sitting up in chair with son at bedside. Vitals and assessment completed as charted. Patient denies pain. Abdominal dressing is clean, dry, and intact. Patient and son, Iain, had questions regarding surgery. Son's contact information was also updated. All questions answered. Patient deniesany further needs. Call light is within reach. Care ongoing. * Fabi Duran RN - 07/17/2023 1:15 PM EDT Hospitalist consult completed at this time. Ashley AGUAYO notified of consult. Dr. Cox added to patient's care team. * Chloe Cabrera RN - 07/17/2023 12:45 PM EDT Patient transported via cart to [facility] Room [...] 14. Accompanied by a responsible adult. N/A * Fabi Duran RN - 07/17/2023 12:45 PM EDT Patient admitted to the floor at this [...] oriented to the call light system at thistime. White board completed. Call light and bedside table within reach. Bed wheels locked. Bed in lowest position. Bed alarm on. * Chloe Cabrera RN - 07/17/2023 12:33 PM EDT Attempted to call Iain again to give an update. Phone rings busy. * Chloe Cabrera RN - 07/17/2023 12:22 PM EDT Attempted to call Iain x2 to update that patient was staying overnight. * Nathalie Adair RN - 07/13/2023 7:39 AM EDT Patient instructed on the pre-operative, intra-operative, and post-operative process. Patient instructed on NPO status. Medication instructions and pre operative instruction sheet reviewed with the patient. CHG skin prep instructions reviewed with patient. Patient states she didn't receive the surgi marycarmen soap from the office. Instructed pt to use anti bacterial soap and shower the night before and morning of surgery. Instructed pt to stop taking all OTC vitamins 7 days prior to surgery and to take amlodipine with a small sip of water prior to arriving to the hospital the day of surgery. Patientstates she was not aware she needed to have someone with her for the first 24 hours after discharge. Patient states she will work on making arrangements to have someone stay with her for 24 hours after surgery. * Nathalie Adair RN - 07/12/2023 2:15 PM EDT Attempted PAT phone call; no answer; unable to leave a message. NO voicemail set up. [facility] Narrative* Ramon Olea MD - 07/18/2023 2:38 PM EDT Discharge Summary Date: 07/18/2023 Patient Name: Micheal [...] plan, and follow up. [facility] Discharge instructions* Discharge Instructions* Chloe Ford RN - 07/18/2023 2:37 PM EDT 1) [...] if you have questions or problems @ [phone] * Discharge Instr - Activity* Chloe Ford RN - 07/18/2023 2:44 PM EDT As tolerated. No lifting more than 10 pounds for 6 weeks * Discharge Instr - Diet* Chloe Ford RN - 07/18/2023 2:46 PM [...] most local grocery stores, pharmacies, and chain super-stores. If you have any questions about your diet or nutrition, call the hospital and ask for the dietitian. Low Fat * Attachments The following attachments cannot be sent through Care Everywhere. * Abdominal Hernia Repair: Post-op (Kittitian) * Surgical Site Infections: Prevention: General Info (Kittitian) [facility]iology Clinic Note Chief Complaint: chest pain HPI: Micheal Brice [...] or concerns. Steve Peguero MD Interventional Cardiology [facility]08[facility]23-[facility]23 NoteNew patient here to establish care. Self ref [...] ). All other systems reviewed and are negative.[facility] 05-09[facility] History of Present illness Narrative* Luis Felipe Lopes MD - 05/09/2022 8:48 AM EST Subjective: Patient ID: Micheal Brice is a [...] past medical history, past social history, past surgicalhistory, and problem list. Review of Systems Constitutional: [...] did advise her we really want to pickling machine operator her exercise and activity level. Wewill see her in a year for reevaluation. No orders of the defined types were placed in this encounter. Return in about 1 year (around 05/09/2023) for Annual physical, xrays. Note: To expedite correspondence this note was generated by [employer] recognition software. Somegrammatical or spelling errors may occur using the system. documented in this [id number] Telephone encounter Note* Telephone Encounter - Niurka Fitzgerald MA - 04/28/2022 3:19 PM EST Patient called with question with whether she should finish keflex , she was instructed to finish antibiotic . [id number] Miscellaneous Notes* Telephone Encounter - Niurka Fitzgerald MA - 04/28/2022 3:19 PM EST Patient called with question with whether she should finish keflex , she was instructed to finish antibiotic . documented in this [id number] History of Present illness Narrative* Luis Felipe Lopes MD - 04/18/2022 9:21 AM EST Subjective: Patient ID: Micheal Brice is a 82 y.o. female. HPI: She is a former patient of ours status post a right total knee arthroplasty. She states that she fell onto a ladder a little bit before . She did finally have x-rays done [...] past medical history, past social history, past surgicalhistory, and problem list. Review of Systems Constitutional: [...] expedite correspondence this note was generated by [employer] voice recognition software. Somegrammatical or spelling errors may occur using the system. documented in this [id number] NotePROCEDURE: XR ELBOW RT MIN 3 VIEWS HISTORY: [...] Electronically authenticated by: MIGEL RAMSEY Date: 2022-03-30 12:47[facility] NotePROCEDURE: XR KNEE RT 4V or > HISTORY: Accidental fall ; anterior right knee pain COMPARISON: None. FINDINGS: BONES:Right knee replacement without evidence of hardware fracture or loosening. No bone fracture, dislocation, or lesion. SOFT TISSUES:No visible soft tissue swelling. EFFUSION:None visible. OTHER: Negative. IMPRESSION: 1. Right knee replacement without evidence of hardware failure. 2. No acute bone abnormality. Electronically authenticated by: MIGEL RAMSEY Date: 2022-03-30 12:42[facility]* Clinical Note Date No Information [facility] Work Phone: Discharge summary* Clinical Note Date No Information [facility] Work Phone: Evaluation + Plan note Future Appointments Appointment Date:04/07/2024 01:00:00 PM Scheduled Provider: Location:[facility] Appointment Type: Medicare Wellness [facility] Future Appointments Appointment Date:04/13/2025 09:30:00 AM Scheduled Provider: Location:[facility] Appointment Type: Medicare Wellness Subsequent Appointment Date:04/13/2025 10:20:00 AM Scheduled Provider:Camila Max Location:[facility] Appointment Type: Open [facility] Evaluation + Plan note Future Appointments Appointment Date:10/22/2024 09:20:00 AM Scheduled Provider:KIA SAMUEL CNP Location:[facility] Appointment Type: Open Appointment Date:04/13/2025 09:30:00 AM Scheduled Provider: Location:[facility] Appointment Type: Medicare Wellness Subsequent Appointment Date:04/13/2025 10:20:00 AM Scheduled Provider:Camila Max Location:[facility] Appointment Type: Open [facility] [place] Evaluation note* Diagnosis History of total right knee replacement- Primary documented in this encounter [facility] note* Diagnosis Incarcerated umbilical hernia- Primary Umbilical hernia with obstruction Wound dehiscence Disruption of external operation (surgical) wound Incarcerated ventral hernia Ventral hernia, unspecified, with obstruction Post-op pain Other acute postoperative pain Wound dehiscence Disruption of external operation (surgical) wound Incarcerated ventral hernia Ventral hernia, unspecified, with obstruction Hypertension Unspecified essential hypertension Mild malnutrition (HCC) Malnutrition of mild degree documented in this encounter [facility] note* Diagnosis Abscess of postoperative wound of abdominal wall- Primary Post-operative wound abscess Other postoperative infection Failure of outpatient treatment Abscess of umbilicus Cellulitis and abscess of trunk Abscess of postoperative wound of abdominal wall documented in this encounter [facility] note* Diagnosis 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, lumbar region, without neurogenic claudication Primary osteoarthritis of left knee documented in this encounter [facility] note* Diagnosis Thyroid mass- Primary Unspecified disorder of thyroid [facility]* Clinical Note Date No Information [facility] Work Phone: Hospital course Narrative No data available for this section [facility] Discharge instructions No data available for this section [facility] No data available for this section [facility]* Clinical Note Date No Information [facility] Work Phone: Reason for referral (narrative)* Reason For Referral No Information [facility] Work Phone: Summary Purpose Family History No Family History Records Found Family Member Type Diagnosis Age At Onset Mother Problem (finding) Hypertension Mother Problem (finding) High cholesterol Advance Directives No Advanced Directives Records FoundLatest [...] Agents on File Name Relationship Healthcare Agent Jeremihi p Communication Iain Hancock Child Primary Decision [...] Agents on File Name Relationship Healthcare Agent Jeremihi p Communication Iain Hancock Child Primary Decision Maker Directive Yes / No Effective Date File Name No Information Documents on File Type Date Recorded Patient Coverage Specialist Expl anation Advance Directives and Living Will 01/27/2019 2015-06-14 Power of Financial Secretary Advance Directives and Living Will 01/27/2019 2015-06-14 Living Wi Reason for Referral Specialty Diagnoses / Procedures Referred By Jeni de leon Referred To Contact Wound Care Diagnoses Abscess of umbilicus Abscess of postoperative wound of abdominal wall Radhika Magana MD [address] [place] [address] Referral ID Status Reason Start Date Expiration Date V isits Requested Visits Authorized [id number] Open Specialty Services Required 08/03/2023 01/30/2024 1 1 Scheduling Instructions [facility] Question Answer Reason For External Referral? Location Comments The patient can be scheduled with any member of the group, including the provider with the first available appointments. Chief Complaint and Reason for Visit From encounter dated '07/28/2024 12:50'. DRY AMD (chief complaint). Description: The 84 year old female presents for New Patient evaluation of DRY AMD in the right and left eyes. Patient has a history of Syfovre injections OU. Patient states that she has been getting injections since May of last year. Patient states that she does occasionally see a floater, but she denies any flashes of light. Patient denies any ocular pain. Additional Source Comments INFORMATION SOURCE (unrecogn ized section and content) DATE CREATED AUTHOR 04/01/2022 [facility] DATE CREATED AUTHOR AUTHOR'S ORGANIZ ATION 11/09/2022 [facility] DATE CREATED AUTHOR AUTHOR'S ORGANIZ ATION 06/22/2023 [facility] DATE CREATED AUTHOR AUTHOR'S ORGANIZ ATION 08/07/2023 [facility] DATE CREATED AUTHOR AUTHOR'S ORGANIZ ATION 08/28/2023 [facility] DATE CREATED AUTHOR AUTHOR'S ORGANIZ ATION 04/12/2024 [facility] DATE CREATED AUTHOR AUTHOR'S ORGANIZ ATION 06/18/2024 [facility] DATE CREATED AUTHOR AUTHOR'S ORGANIZ ATION 07/30/2024 [facility] DATE CREATED AUTHOR AUTHOR'S ORGANIZ ATION 10/15/2024 [facility] DATE CREATED AUTHOR AUTHOR'S ORGANIZ ATION 10/16/2024 [facility] DATE CREATED AUTHOR AUTHOR'S ORGANIZ ATION 10/18/2024 [facility] DATE CREATED AUTHOR AUTHOR'S ORGANIZ ATION 10/24/2024 [facility] DATE CREATED AUTHOR AUTHOR'S ORGANIZ ATION 10/26/2024 [facility] DATE CREATED AUTHOR AUTHOR'S ORGANIZ ATION 10/29/2024 [facility] DATE CREATED AUTHOR AUTHOR'S ORGANIZ ATION 10/29/2024 [facility] DATE CREATED AUTHOR AUTHOR'S ORGANIZ ATION 11/04/2024 [facility] DATE CREATED AUTHOR AUTHOR'S ORGANIZ ATION 11/11/2024 [facility] DATE CREATED AUTHOR AUTHOR'S ORGANIZ ATION 11/13/2024 [facility] Reason for Visit (unrecogniz ed section and [...] Diagnoses Wound dehiscence Wound dehiscence [T81.30XA] Procedures MT RPR AA HERNIA RECR < 3 CM REDUCIBLE HERNIA UMBILICAL REPAIR - REVISION UMBILICAL INCISION, POSSIBLE HERNIA REPAIR, POSSIBLE UMBILECTOMY Ramon Olea MD [address] [place] [address] [facility] [address] [place] [address] Referral ID Status Reason Start Date Expiration Date Visits Re quested Visits Authorized [id number] 1 1 Reason Comments Post-op Problem Hernia repaired done July 16. Pt has been going on since 3 days after the surgery. Pt denied any fever. Pt stated she is fatigued, achy, and has not been feeling herself. Reason Comments Pain Pain Patient is c/o right knee pain , hx RTKA . She notes she feels like shocking sensation from right hip to right foot. Also notes she is feeling some pain from behind her left knee. Reason Comments Thyroid Nodule Care Teams (unrecognized sec tion and content) Farmer Vegetable Relationship Specialty Start Date End Date No, Physician [facility] PCP - General 04/18/22 Farmer Vegetable Relationship Specialty Start Date End Date No, Physician [facility] PCP - General 1/31/23 Farmer Vegetable Relationship Specialty Start Date End Date Cosmo, Camila, BATTER DEPOSITOR - WELT STITCH CLEANER [address] [id number] PCP - General 06/20/23 Farmer Vegetable Relationship Specialty Start Date End Date Camila Carlos BATTER DEPOSITOR - WELT STITCH CLEANER [address] [id number] PCP - General 06/20/23 Farmer Vegetable Relationship Specialty Start Date End Date Camila Carlos, BATTER DEPOSITOR - WELT STITCH CLEANER [address] [phone] PCP - General 06/20/23 Farmer Vegetable Relationship Specialty Start Date End Date Camila Carlos CNP [address] [place], [place] [phone] PCP - General Nurse Practitioner 06/13/24 Name Effective Dates (start - stop) Status Members No Information Farmer Vegetable Relationship Specialty Start Date End Date Camila Carlos NP [address] [place], [place] [phone] Referring Physician Family Medicine 10/28/24 Farmer Vegetable Relationship Specialty Start Date End Date Camila Carlos NP [address] [place], [place] [phone] Referring Physician Family Medicine 10/28/24 Ordered Prescriptions (unrec ognized section and content) [...] 100 mL IVPB (COMPLETED) 2,000 mg, IntraVENous, DERRICK BOAT CAPTAIN TO O.R., 1 dose, On Sun07/17/23 at 0830, Antimicrobial Indications: Surgical Prophylaxis, Administer within 1 hour prior to incision. Recommend to repeat in 3-4 hours after initial dose if still intra-op., Pre-op (day of surgery) 1020 (New Bag - Provider: Krys Heart RN - Comment: director call center sales to the OR)1350 (Stopped - Provider: Fabi [...] until dissolved. 1643 (Given - Provider: Fabi Duran, SARKIS) 0846 (Given - Provider: Yessy Montes, RN)1700 (Due) Continuous Medication Order 07/16/2023 07/17/2023 07/18/2023 dextrose 5 % and 0.45 % NaCl with KCl 20 mEq infusion (CANCELED) IntraVENous, at 100 mL/hr, CONTINUOUS, Starting on Sun07/17/23 at 1315, Post-op 1305 (New Bag - Provider: Fabi Duran RN)2329 (New Bag - Provider: Angela Nguyen RN) 0727 (Stopped - Provider: Yessy Montes, SARKIS) lactated ringers IV soln infusion (CANCELED) IntraVENous, at 100 mL/hr, CONTINUOUS, Starting on Sun07/17/23 at 0830, Pre-op (day of surgery) 0826 (New Bag - Provider: Elva Hernandez RN)1032 (NoRateChange - Provider: Dee Rodriguez APRN - REHABILITATION THERAPIST)1145 (Anesthesia Volume Adjustment - Provider: MICHAEL Lopez REHABILITATION THERAPIST)1255 (Stopped - Provider: Fabi Duran RN) PRN [...] dose on Sun08/01/23 at 0900, Until Discontinued 09 (Not Given - Provider: Elda Sousa RN [...] sodium chloride 0.9 % 50 mL IVPB ([id number]) 3,375 mg, IntraVENous, EVERY 8 HOURS, First dose on Sun07/31/23 at 2115, Until Discontinued, Antimicrobial Indications: Surgical Site Infection 0233 (Stopped - Provider: Angela Nguyen RN)0659 (New Bag - Provider: Elda Sousa RN)1002 (Stopped - Provider: Elda Sousa RN)1435 (New Bag - Provider: Olivia Richmond, SARKIS)1825 (Stopped - Provider: Olivia Richmond RN)2332 (New [...] Castañeda)2300 (Due - Provider: Horacio Resendiz, [facility]) sodium chloride flush 0.9 % injection 5-40 [...] RN) 1316 (New Bag - Provider: Chloe Torres RN) 0310 (New Bag - Provider: Angela Ladd RN)0649 (Stopped - Provider: Chloe Torres RN) PRN Medication Order 08/01/2023 08/02/2023 [...] Starting on Sun07/31/23 at 182, Until Discontinued, Potassium Replacement
May give alternative [...] at 182, Until Discontinued, Per Potassium Replacement Protocol
Administer [...] BE BASED ON THE PRIMARY CLINICAL RECORDS. [facility] [employer] [facility]. provides no warranty or guarantee of the accuracy or completeness of information in this document.
== END 2024-11-13 10:39 | disposition home or self-care (01) ==
LOC: PST 10:38
PROVIDERS: PCP Nurse Practitioner; Visit Provider Surgery
DX: Z01.818 Encounter for other preprocedural examination (principal); D17.20 Benign lipomatous neoplasm of skin and subcutaneous tissue of unspecified limb

== ENCOUNTER 2024-11-19 08:29 | Day surgery (SDC) | payer MEDICARE, OTHER, SELFPAY ==
--- NOTE | 2024-11-19 | OP_ITS ---
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 PROCEDURE: Excisional biopsy lipoma right upper arm. Total length of the incision 4 cm. SURGEON: Alfonso Goodson M.D. ANESTHESIA: Local with 0.5% Marcaine plain. ESTIMATED BLOOD LOSS: Less than 5 mL. INDICATIONS AND CONSENT: Patient is an 84-year-old female with a long history of a slowly enlarging subcutaneous mass of the right lateral upper extremity. Ultrasound was consistent with likely a lipoma. Indications, risks, benefits, alternatives of proceeding with excisional biopsy under local anesthesia were explained extensively to the patient, including the risks of bleeding, infection, scarring, pain, recurrence, need for further surgery. All of her questions were answered. Informed consent was obtained. PROCEDURE: Patient brought to the operating, placed in the supine position. The area was prepped and draped in the usual sterile fashion. It was anesthetized with 0.5% Marcaine plain. Incision was made over the long axis of the lesion in the area of the skin crease, approximately 4 cm long, and carried down through subcutaneous tissue using sharp dissection. Subcutaneous lipoma, lobulated, was identified with projections extending deeper. This was completely excised. Total size was approximately 3.5 cm. It was sent off to Pathology. The subcutaneous tissue was re-approximated with interrupted 3-0 Monocryl suture. Skin was then closed with a running 4-0 subcuticular Monocryl suture and skin glue. Sterile pressure dressing was applied. Sponge and needle counts were correct x3 per nursing personnel. Patient tolerated procedure well, was sent to recovery room in good condition. CC: BASILIO Ward
--- OUTSIDE RECORDS SUMMARY | 2024-11-19 08:34 | XMS_ITS | Encounter Summary ---
Author Organization [facility] Address [address] [place] [address] Care Team Providers Care Staff Internist Office Based Only Name Role Phone Jessie Carlos ASSISTANT DIRECTOR OF PLANT OPERATIONS Unavailable Encounter Details Date Type Department Care Team (Late st Contact Info) Description 10/28/2024 Orders Only [facility] [address] [place] [address] Shaikh Gross MD [address] [facility] [place] [id number] Social History Tobacco Use Types Packs/Day Years Used Date Smoking Tobacco: Never Smokeless Tobacco: Never Alcohol Use Standard Drinks/Week Comments Never 0 [...] Description 12/04/2024 9:50 AM EDT Office Visit [facility] [address] [place] [address] Gaetano Rosen MD [address] [place] [address] 12/09/2024 9:50 AM EDT Office Visit [facility] [address] [place] [address] Kylie Rice MD [address] [facility] [address] [place] [address] documented as of this encounter Procedures Procedure Name Priority Date/Time Associated Diagnosis Comments US THYROID Routine 10/20/2024 1:56 PM EDT SCANNED LABS Routine 10/14/2024 2:32 PM EDT US THYROID Routine 02/16/2021 1:52 PM EST documented in this encounter Results * US thyroid (10/20/2024 1:56 PM EDT) Anatomical Region Laterality Modality Head, Neck Ultrasound us Jessie Carlos NP IMG US PROCEDURES Final Result * SCANNED LABS (10/14/2024 2:32 PM EDT) us Jessie Carlos NP LAB CHG PERFORMABLES Final Resul t * US thyroid (02/16/2021 1:52 PM EST) Anatomical Region Laterality Modality Head, Neck Ultrasound us Shaikh Renato JULIEN IMG US PROCEDURES Final Result documented in this encounter Visit Diagnoses Not on filedocumented in this encounter Care Teams Staff Internist Office Based Only Relationship Specialty Start Date End Date Jessie Carlos NP [address] [place] [address] Referring Physician Family Medicine 10/28/24 documented as of this encounter
--- OUTSIDE RECORDS SUMMARY | 2024-11-19 08:34 | XMS_ITS | Encounter Summary ---
Author Organization [facility] Address [address] [place] [address] Care Team Providers Care Car Icer Name Role Phone Jessie Carlos CNP Primary Care Provider [phone] Encounter Details Date Type Department Care Team (Late st Contact Info) Description 06/13/2024 Orders Only [facility] Radiology External Films [address] [place] [address] Social History Tobacco Use Types [...] on filedocumented in this encounter Care Teams Car Icer Relationship Specialty Start Date End Date Jessie Carlos CNP [address] [place] [address] PCP - General Nurse Practitioner 06/13/24 documented as of this encounter
--- OUTSIDE RECORDS SUMMARY | 2024-11-19 08:34 | XMS_ITS | Encounter Summary ---
Author Organization [facility] Address [address] [place] [address] Care Team Providers Care Storage Engineer Name Role Phone No, Physician Primary Care Provider Jessie Raman CNP Primary Care Provider [phone]- [phone] Encounter Details Date Type Department Care Team (Late st Contact Info) Description 04/18/2022 Orders Only [facility] Radiology External Films [address] [place], [place] [id number] Social History Tobacco Use Types Packs/Day Years [...] on filedocumented in this encounter Care Teams Storage Engineer Relationship Specialty Start Date End Date No, Physician [facility] PCP - General 04/18/22 06/12/24 Jessie Carlos, FREIGHT UNLOADER [address] [place] [address] PCP - General Nurse Practitioner 06/13/24 documented as of this encounter
--- OUTSIDE RECORDS SUMMARY | 2024-11-19 08:34 | XMS_ITS | Encounter Summary ---
Author Organization [facility] Address [address] [place] [address] Care Team Providers Care Spray Painter Helper Name Role Phone No, Physician Primary Care Provider Jessie Raman CNP Primary Care Provider [phone] Encounter Details Date Type Department Care Team (Late st Contact Info) Description 04/18/2022 Orders Only [facility] Radiology External Films [address] [place], [place] [id number] Social History Tobacco Use Types Packs/Day Years [...] on filedocumented in this encounter Care Teams Spray Painter Helper Relationship Specialty Start Date End Date No, Physician [facility] PCP - General 04/18/22 06/12/24 Jessie Carlos, PONY RIDE OPERATOR [address] [place] [address] PCP - General Nurse Practitioner 06/13/24 documented as of this encounter
--- OUTSIDE RECORDS SUMMARY | 2024-11-19 08:34 | XMS_ITS | Encounter Summary ---
Author Organization [facility] Address [address] [place] [address] Care Team Providers Care Scheme Technician Name Role Phone Jessie Carlos CNP Primary Care Provider [phone] Encounter Details Date Type Department Care Team (Late st Contact Info) Description 06/13/2024 Orders Only [facility] Radiology External Films [address] [place] [address] Social History Tobacco Use Types [...] on filedocumented in this encounter Care Teams Scheme Technician Relationship Specialty Start Date End Date Jessie Carlos CNP [address] [place] [address] PCP - General Nurse Practitioner 06/13/24 documented as of this encounter
--- OUTSIDE RECORDS SUMMARY | 2024-11-19 08:34 | XMS_ITS | Clinical Summary ---
Author Organization [facility] Address [address] [place] [address] Care Team Providers Care Bpo Specialist Name Role Phone Willie Cardona MD Primary Care Provider [phone] Allergies No known active allergies Medications cyanocobalamin, [...] topic Insurance [employer] Care Teams Bpo Specialist Relationship Specialty Start Date End Date Willie Cardona MD [address] [place] [address] PCP - General Family Medicine 11/08/22
--- OUTSIDE RECORDS SUMMARY | 2024-11-19 08:34 | XMS_ITS | Clinical Summary ---
Author Organization [facility] Address [address] [place] [address] Care Team Providers Care Gunstock Spray Unit Feeder Name Role Phone Jessie Carlos TINTER PHOTOGRAPH Primary Care Provider [phone] Allergies No known active allergies Medications cyanocobalamin, [...] Payer (Ef fective 2007-Present) Name:Elisa Wills Member ID:[id number] Relation to Subscriber:Self Name:Elisa Wills Subscriber ID:[id number] Payer ID:Not on file Group ID:Not on file Type:Not on file Address: [address] [address] [place] [address] Care Teams Gunstock Spray Unit Feeder Relationship Specialty Start Date End Date Terrance, Jessie Zoey, DEDE [address] [place] [address] PCP - General Nurse Practitioner 06/13/24
--- OUTSIDE RECORDS SUMMARY | 2024-11-19 08:34 | XMS_ITS | Encounter Summary ---
Author Organization [facility] Address [address] [place] [address] [place] [address] Care Team Providers Care Handle Sander Operator Name Role Phone Jessie Carlos FIELD AGRONOMIST Unavailable Encounter Details Date Type Department Care Team (Late st Contact Info) Description 10/22/2024 Orders Only [facility] [address] [place] [address] Jessie Carlos, STEFANY [address] [place] [address] Social History Tobacco Use Types [...] [facility] [address] [place] [phone] Gaetano Rosen MD [address] [place] [address] 12/09/2024 9:50 AM EDT Office Visit [facility] [address] [place] [address] Kylie Rice MD [address] [place], [place] [phone] documented as of this encounter Procedures Procedure [...] on filedocumented in this encounter Care Teams Handle Sander Operator Relationship Specialty Start Date End Date Jessie Carlos NP [address] [place] [address] Referring Physician Family Medicine 10/28/24 documented as of this encounter
--- OUTSIDE RECORDS SUMMARY | 2024-11-19 08:35 | XMS_ITS | Clinical Summary ---
Author Organization [employer] tem Address [id number] [address] [place] [address] Care Team Providers Care Solicitor Patent Name Role Phone No Pcp, No Pcp [...] Not on file Insurance MEDICARE Care Teams Solicitor Patent Relationship Specialty Start Date End Date No Pcp, [place] [address] PCP - General Family Medicine 11/01/17
--- OUTSIDE RECORDS SUMMARY | 2024-11-19 08:35 | XMS_ITS | Clinical Summary ---
Author Organization [facility] Address [address] [facility] [place] [address] Care Team Providers Care Bpo Specialist Name Role Phone Jessie Carlos CENTERLESS GRINDER OPERATOR Unavailable Allergies No known active allergies Medications [...] morning. Active ergocalciferol (Vitamin D2) 1.25 MG (21864 UT) capsule Take 1 capsule by mouth [...] [address] [place] [address] Kylie Rice MD Thyroid mass (Primary Dx) 10/28/2024 Orders Only [facility] [place] [facility] [address] [place] [address] Shaikh Gross MD 10/28/2024 Bamboo flowsheet [facility] [place] [facility] [address] [place] [address] Kylie Rice MD 10/28/2024 Travel 10/22/2024 Orders Only [facility] [place] [facility] [address] [facility] [address] [place] [address] Jessie Carlos NP from Last 3 Months [...] Visit [facility] [address] [place] [address] Gaetano Rosen MD [address] [place] [address] 12/09/2024 9:50 AM EDT Office Visit [facility] [address] [facility] [address] [place] [address] Kylie Rice MD [address] [facility] [address] [place] [address] Procedures Procedure Name Priority Date/Time Associated Diagnosis [...] NP LAB CHG PERFORMABLES Final Resul t from Last 3 Months Insurance MEDICARE [facility] Advance Directives Documents on File Type Date Recorded Patient Burglar Alarm Operator Expl anation Advance Directives and Living Will 01/27/2019 2015-06-14 Power of Speech Communication Instructor Advance Directives and Living Will 01/27/2019 2015-06-14 Living [facility] Care Teams Bpo Specialist Relationship Specialty Start Date End Date Jessie Carlos NP [address] [place] [address] Referring Physician Family Medicine 10/28/24
[2024-11-19 09:05] VITALS: BP 190/98; PULSE 55; O2SAT 98
[2024-11-19 10:21] VITALS: PULSE 52; O2SAT 95
[2024-11-19] MEDS: BUPIVACAINE HCL 0.5% PF 50 MG/10 ML VIAL INJ (10:22)
[2024-11-19 10:24] VITALS: BP 190/88; BP 196/96; PULSE 50; O2SAT 96
== END 2024-11-19 10:58 | disposition home or self-care (01) ==
PROVIDERS: PCP Nurse Practitioner; Visit Provider Surgery
PROC: (CPT 24071; principal; 2024-11-19 09:25)
DX: D17.21 Benign lipomatous neoplasm of skin and subcutaneous tissue of right arm (principal)
CPT/HCPCS: 24071; 88304; J0665

== ENCOUNTER 2024-12-10 15:23 | Outpatient (OUT) | payer MEDICARE, OTHER, SELFPAY ==
--- OUTSIDE RECORDS SUMMARY | 2024-12-04 09:50 | XMS_ITS | Encounter Summary ---
Author Organization [facility] Address [address] [facility] [address] [place] [address] Care Team Providers Care Student Teaching Coordinator Name Role Phone Jessie Carlos NP Unavailable Reason for Visit * Reason Comments Thyroid Problem NEW REF/US FNA PATH * Other Medical (Routine) - Closed Specialty Diagnoses / Procedures Referred By Contchristian t Referred To Contact Endocrinology Diagnoses Nontoxic multinodular goiter Procedures MI OFFICE/OUTPATIENT NEW MODERATE MDM 45 MINUTES Jessie Carlos NP [address] [place] [address] Phone: tel: Gaetano Rosen MD [address] [place] [address] Phone: tel: fax: Referral ID Status Reason Start Date Expiration Date Visits Re quested Visits Authorized [id number] Closed 10/30/2024 04/28/2025 1 1 Encounter Details Date Type Department Care Team (Latest Contact Info) Description 12/04/2024 9:50 AM EDT Office Visit [facility] [address] [place] [address] Gaetano Rosen MD [address] [place] [address] Subclinical hyperthyroidism (Primary Dx); Thyroid nodule Social History Tobacco Use Types Packs/Day Years [...] on file documented as of this encounter Last Filed Vital Signs Vital Sign Reading Time Taken Comments Blood Pressure 150/92 12/04/2024 9:05 AM EDT Pulse 54 12/04/2024 9:05 AM EDT Temperature - - Respiratory Rate 16 12/04/2024 9:05 AM EDT Oxygen Saturation 99% 12/04/2024 9:05 AM EDT Inhaled Oxygen Concentration - - Weight 83 kg (183 lb) 12/04/2024 9:05 AM EDT Height 153.7 cm (5' 0.5 ) 12/04/2024 9:05 AM EDT Body Mass Index 35.15 12/04/2024 9:05 AM EDT documented in this encounter Progress Notes * Gaetano Rosen MD - 12/04/2024 9:50 AM EDT Images from the original note were not included. Elisa Wills is a 84 y.o. female Jessie Carlos, DERMATOLOGY PHYSICIAN presents with chief complaint of Thyroid Problem (NEW REF/US FNA PATH) HPI: 11/2024 History of Present Illness The patient is a new patient referred by Dr. Carline Carlos for subclinical hyperthyroidism. She has experienced a weight loss of approximately 15 pounds and exhibits a mild tremor. However, she does not report any shaking or palpitations. Results Laboratory Studies TSH 0.08, free T3 4.3 to 4.4, free T4 0.82 (normal range 0.56-1.64). Biopsy showed scant colloid and nondiagnostic. Imaging Ultrasound shows right lobe 4.8 x 1.6 x 1.6 cm, left lobe 5.3 x 3.4 x 2.1 with nodule 39 x 33 x 22 mm hypoechoic. SUBJECTIVE: MEDICATIONS: Current Outpatient Medications Medication Instructions calcium carbonate 1,200 mg, Daily RT carboxymethylcellulose (Refresh Liquigel) 1 % ophthalmic solution dropperette Cyanocobalamin 1000 MCG/ML liquid 1 tablet, Daily RT ergocalciferol (Vitamin D2) 1.25 MG (19323 UT) capsule 1 capsule, Weekly lactobacillus (Culturelle) capsule 1 capsule, 2 times daily with meals omega-3 acid ethyl esters (LOVAZA) 2 g, 2 times daily pyridoxine (Vitamin B-6) 25 MG tablet take 1 tab po qd/bid ALLERGIES: No Known Allergies No past medical history on file. Past Surgical History: Procedure Laterality Date ANKLE FRACTURE SURGERY CHOLECYSTECTOMY FINGER AMPUTATION MOLE REMOVAL nose and back THUMB AMPUTATION TOTAL KNEE ARTHROPLASTY Right REVIEW OF SYMPTOMS: 14 POINT OF SYSTEM REVIEWED AND NEGATIVE OBJECTIVE: 10/03/2017 12:00 PM 10/05/2017 12:00 PM 01/27/2019 12:00 PM 03/05/2019 12:00 PM 03/31/2019 12:00 PM 10/28/2024 8:25 AM 12/04/2024 9:05 AM Vitals BMI 35.85 kg/m2 35.85 kg/m2 37.31 kg/m2 37.49 kg/m2 36.95 kg/m2 33.84 kg/m2 35.15 kg/m2 BSA (m2) 1.97 m2 1.97 m2 2.01 m2 2.02 m2 2 m2 1.92 m2 1.88 m2 Systolic 130 138 146 128 112 131 150 Diastolic 80 92 86 80 76 70 92 Heart Rate 82 54 SpO2 99 % Resp 16 Height (in) 5' 2 5' 2 5' 2 5' 2 5' 2 5' 2 5' 0.5 Weight (lb) 196 196 204 205 202 185 183 Visit Report Report Report Physical Exam Constitutional: Appearance: Normal appearance. She is normal weight. HENT: Head: Normocephalic and atraumatic. Right Ear: External ear normal. Nose: Nose normal. Mouth/Throat: Pharynx: Oropharynx is clear. Eyes: Extraocular Movements: Extraocular movements intact. Pupils: Pupils are equal, round, and reactive to light. Cardiovascular: Rate and Rhythm: Normal rate and regular rhythm. Pulmonary: Effort: Pulmonary effort is normal. Abdominal: General: Abdomen is flat. Palpations: Abdomen is soft. Musculoskeletal: General: Normal range of motion. Skin: General: Skin is warm. Neurological: General: No focal deficit present. Mental Status: She is alert. Psychiatric: Mood and Affect: Mood normal. Behavior: Behavior normal. ASSESSMENT AND PLAN: Assessment/Plan Diagnoses and all orders for this visit: Subclinical hyperthyroidism - Thyroglobulin Antibody; Future - Thyrotropin receptor antibody; Future - Thyroid peroxidase antibody; Future - T3, free; Future - T4, free; Future - TSH; Future Thyroid nodule - Thyroglobulin Antibody; Future - Thyrotropin receptor antibody; Future - Thyroid peroxidase antibody; Future - T3, free; Future - T4, free; Future - TSH; Future Assessment & Plan 1. Subclinical hyperthyroidism: - Presents with suppressed TSH (0.08) and elevated free T3 (4.3 to 4.4) and free T4 (0.82). Lost almost 15 pounds and has a mild tremor, no shaking or palpitation. - If repeat lab results remain consistent, a small dose of methimazole (5 mg, 5 days a week) will be initiated. Medication dosage will be adjusted as needed. An antibody test will be performed to rule out autoimmune disease. 2. Multinodular goiter: - Largest nodule measures 39 mm in the left lobe, status post biopsy, which was nondiagnostic. - Will continue to follow up with Dr. Rice for further evaluation. Follow-up: Repeat lab test for subclinical hyperthyroidism. Check antibody test to rule out autoimmune disease. Continue follow-up with Dr. Sheikh for multinodular goiter evaluation. Follow up in about 2 weeks (around 12/18/2024). documented in this encounter Plan of Treatment Upcoming Encounters Date Type Department Care Team (Late st Contact Info) Description 12/18/2024 9:20 AM EDT Office Visit [facility] [place] [facility] [address] [place] [address] Gaetano Rosen MD [address], [address] [place] [address] 04/15/2025 9:00 AM EST Office Visit [facility] [place] [facility] [address] [facility] [address] [place] [phone] Kylie Rice MD [address] [facility] [address] [place] [address] documented as of this encounter Procedures Procedure Name Priority Date/Time Associated Diagnosis Comments THYROID PEROXIDASE ANTIBODIES Routine 12/04/2024 10:24 AM EDT Thyroid nodule Subclinical hyperthyroidism THYROTROPIN RECEPTOR ANTIBODY Routine 12/04/2024 10:24 AM EDT Thyroid nodule Subclinical hyperthyroidism THYROGLOBULIN ANTIBODIES Routine 12/04/2024 10:24 AM EDT Thyroid nodule Subclinical hyperthyroidism T3, FREE Routine 12/04/2024 10:24 AM EDT Thyroid nodule Subclinical hyperthyroidism TSH Routine 12/04/2024 10:24 AM EDT Thyroid nodule Subclinical hyperthyroidism T4, FREE Routine 12/04/2024 10:24 AM EDT Thyroid nodule Subclinical hyperthyroidism documented in this encounter Results * (ABNORMAL) TSH (12/04/2024 10:24 AM EDT) TSH 0.206(L) 0.450 - 4.500 uIU/mL [facility] Blood Venous blood specimen / Unknown 12/04/2024 10:24 AM EDT 12/04/2024 Narrative [facility] - 12/05/2024 8:35 PM EDT Performed at: - [facility] [employer] [address], [place] [id number] Mobile Product Manager: Arielle Valenzuela MD, Phone: [phone] us Gaetano Rosen MD LAB BLOOD ORDERABLES Final Re sult [facility] * T4, free (12/04/2024 10:24 AM EDT) T4Free(Direct) 0.94 0.82 - 1.77 ng/dL [facility] Blood Venous blood specimen / Unknown 12/04/2024 10:24 AM EDT 12/04/2024 Narrative [facility] - 12/05/2024 8:35 PM EDT Performed at: - [facility] [address], [address], [place] [id number] Mobile Product Manager: Arielle Valenzuela MD, Phone: [phone] Gaetano Rosen MD LAB BLOOD ORDERABLES Final Re sult Performing Organization Address [facility] de Phone Number [facility] * T3, free (12/04/2024 10:24 AM EDT) T3, FREE 3.5 2.0 - 4.4 pg/mL [facility] Blood Venous blood specimen / Unknown 12/04/2024 10:24 AM EDT 12/04/2024 Narrative [facility] - 12/05/2024 8:35 PM EDT Performed at: [address] [place] [id number] Mobile Product Manager: Matias Flores PhD, Phone: [phone] Gaetano Rosen MD LAB BLOOD ORDERABLES Final Re sult Performing Organization Address [facility] de Phone Number [facility] * Thyroid peroxidase antibody (12/04/2024 10:24 AM EDT) THYROID PEROXIDASE (TPO) AB 13 0 - 34 IU/mL [facility] Blood Venous blood specimen / Unknown 12/04/2024 10:24 AM EDT 12/04/2024 Narrative [facility] - 12/05/2024 8:35 PM EDT Performed at: [address] [id number] Mobile Product Manager: Matias Flores PhD, Phone: [phone] Gaetano Rosen MD LAB BLOOD ORDERABLES Final Re sult Performing Organization Address [facility] de Phone Number [facility] * Thyrotropin receptor antibody (12/04/2024 10:24 AM EDT) THYROTROPIN RECEPTOR AB, SERUM <1.10 0.00 - 1.75 IU/L [facility] Blood Venous blood specimen / Unknown 12/04/2024 10:24 AM EDT 12/04/2024 Narrative [facility] - 12/05/2024 8:35 PM EDT Performed at: [address] [id number] Mobile Product Manager: Shelia Thomason MD, Phone: [phone] Gaetano Rosen MD LAB BLOOD ORDERABLES Final Re sult Performing Organization Address City/[facility]/ZIP Co de Phone Number [facility] * Thyroglobulin Antibody (12/04/2024 10:24 AM EDT) [facility] THYROGLOBULIN ANTIBODY <1.0 0.0 - 0.9 IU/mL [facility] Comment: Thyroglobulin Antibody measured by Lea Nilson Methodology It should be noted that the presence of thyroglobulin antibodies may not be pathogenic nor diagnostic, especially at very low levels. The assay leak hunter has found that four percent of individuals without evidence of thyroid disease or autoimmunity will have positive TgAb levels up to 4 IU/mL. Blood Venous blood specimen / Unknown 12/04/2024 10:24 AM EDT 12/04/2024 Narrative [facility] - 12/05/2024 8:35 PM EDT Performed at: [address] [id number] Mobile Product Manager: Matias Flores PhD, Phone: [phone] us Gaetano Rosen MD LAB BLOOD ORDERABLES Final Re sult Performing Organization Address City/[facility]/ZIP Co de Phone Number [facility] documented in this encounter Visit Diagnoses Diagnosis Subclinical hyperthyroidism- Primary Thyrotoxicosis without mention of goiter or other cause, without mention of thyrotoxic crisis or storm Thyroid nodule Nontoxic uninodular goiter documented in this encounter Care Teams Student Teaching Coordinator Relationship Specialty Start Date End Date Jessie Carlos NP [address] [place] [address] Referring Physician Family Medicine 10/28/24 documented as of this encounter
--- OUTSIDE RECORDS SUMMARY | 2024-12-09 09:50 | XMS_ITS | Encounter Summary ---
Author Organization [facility] Address [address] [place] [address] Care Team Providers Care Shelf Drier Operator Name Role Phone Jessie Carlos RANCH SUPERVISOR Unavailable Reason for Visit * Reason Comments Thyroid Problem Follow up FNA 5 [place] Pulido report Encounter Details Date Type Department Care Team (Late st Contact Info) Description 12/09/2024 9:50 AM EDT Office Visit [facility] [address] [facility] [address] [place] [address] Kylie Rice MD [address] [facility] [address] [place] [address] Thyroid mass (Primary Dx) Social History Tobacco Use Types Packs/Day Years [...] Sign Reading Time Taken Comments Blood Pressure 124/85 12/09/2024 9:39 AM EDT Pulse 57 12/09/2024 9:39 AM EDT Temperature - - Respiratory Rate - - Oxygen Saturation - - Inhaled Oxygen Concentration - - Weight 83 kg (183 lb) 12/09/2024 9:39 AM EDT Height 152.4 cm (5') 12/09/2024 9:39 AM EDT Body Mass Index 35.74 12/09/2024 9:39 AM EDT documented in this encounter Progress Notes * Kylie Rice MD - 12/09/2024 9:50 AM EDT Subjective Patient ID: Elisa Wills is a 84 y.o. female who presents for Thyroid Problem (Follow up FNA 11/13/24 Ashok, PATH report) 30cc fluid removed during FNA. No malignant cells in cytology. Has seen Dr Rosen and hyperthyroidism W/U underway No family history on file. Active Ambulatory [...] Prior to Visit Medication Sig Dispense Refill calcium carbonate 1500 (600 Ca) MG tablet Take 1,200 mg by mouth in the morning. carboxymethylcellulose (Refresh Liquigel) 1 % ophthalmic solution dropperette Cyanocobalamin 1000 MCG/ML liquid Take 1 tablet by mouth in the morning. ergocalciferol (Vitamin D2) 1.25 MG (37894 UT) capsule Take 1 capsule by mouth [...] to visit. Objective Last Recorded Vitals Vitals: 12/09/24 0939 BP: 124/85 Pulse: 57 ENT Physical Exam Constitutional Appearance: patient appears well-developed, well-nourished and well-groomed, Communication/Voice: communication appropriate for developmental age; vocal quality normal; Assessment/Plan Diagnoses and all orders for this visit: Thyroid mass FNA demonstrated mass was mostly cystic. At this point recommend periodic US. Given baseline size, if any sig growth occurs pt will need a thyroidectomy. documented in this encounter Miscellaneous Notes * Addendum Note - Karen Lorenzo MA - 12/09/2024 9:50 AM EDTAddended by: KAREN LORENZO on: 12/09/2024 02:36 PM Modules accepted: Orders documented in this encounter Plan of Treatment Upcoming Encounters Date Type Department Care Team (Late st Contact Info) Description 12/18/2024 9:20 AM EDT Office Visit [facility] [place] [facility] [address] [place] [address] Gaetano Rosen MD [address] [place] [address] 04/15/2025 9:00 AM EST Office Visit [facility] [address] [place] [address] Kylie Rice MD [address] [facility] [address] [place] [address] Scheduled Orders Name Type Priority Associated Diagnoses Orde r Schedule US thyroid Imaging Routine Thyroid mass Expected: 03/27/2025, Expires: 12/09/2025 documented as of this encounter Visit Diagnoses Diagnosis Thyroid mass- Primary Unspecified disorder of thyroid documented in this encounter Care Teams Shelf Drier Operator Relationship Specialty Start Date End Date Jessie Carlos NP [address] [place] [address] Referring Physician Family Medicine 10/28/24 documented as of this encounter
--- OUTSIDE RECORDS SUMMARY | 2024-12-10 15:28 | XMS_ITS | Encounter Summary ---
Author Organization [facility] Address [address] [place] [address] Care Team Providers Care Deputy Juvenile Officer Name Role Phone Jessie Carlos EXTRUSION OPERATOR Unavailable Encounter Details Date Type Department Care Team (Late Contact Info) Description 11/19/2024 Orders Only [facility] [place] [facility] [address] [place] [address] Kylie Rice MD [address] [place] [address] Social History Tobacco Use Types Packs/Day Years [...] Description 12/18/2024 9:20 AM EDT Office Visit [facility] [address] [place] [address] Gaetano Rosen MD [address] [place] [address] 04/15/2025 9:00 AM EST Office Visit [facility] [address] [place] [address] Kylie Rice MD [address] [address] documented as of this encounter Procedures Procedure Name Priority Date/Time Associated Diagnosis Comments GENERAL PATHOLOGY Routine 11/13/2024 3:11 PM EDT documented in this encounter Results * GENERAL PATHOLOGY (11/13/2024 3:11 PM EDT) Kylie Rice MD [facility] Final Result documented in this encounter Visit Diagnoses Not on filedocumented in this encounter Care Teams Deputy Juvenile Officer Relationship Specialty Start Date End Date Jessie Carlos NP [address] [place] [address] Referring Physician Family Medicine 10/28/24 documented as of this encounter
--- OUTSIDE RECORDS SUMMARY | 2024-12-10 15:28 | XMS_ITS | Encounter Summary ---
Author Organization [facility] Address [address] [place] [address] Care Team Providers Care Pressure Welder Name Role Phone Jessie Carlos RIVET PASSER Unavailable Reason for Visit * Reason Onset Date Comments blood results 12/08/2024 Encounter Details Date Type Department Care Team (Late st Contact Info) Description 12/08/2024 Telephone [facility] [place] [facility] [address] [facility] [address] [place] [address] Kylie Rice MD [address] [facility] 130 [place] [address] blood results Social History Tobacco Use Types Packs/Day Years [...] on file documented as of this encounter Miscellaneous Notes * Telephone Encounter - Twila Rice - 12/08/2024 11:19 AM EDT Called pt/pt said OK and will keep her appt for tomorrow. * Telephone Encounter - Kylie Rice MD - 12/08/2024 10:26 AM EDT F/U tomorrow as scheduled. I have the information I need for the appointment * Telephone Encounter - Twila Rice - 12/08/2024 10:02 AM EDT Pt called in. She is scheduled to see you tomorrow. Her question is she had a FNA done 11/13/24. She then saw Dr Rosen 12/04/24. Pt said she was told Dr Rosen did not have the results of the biopsy and had her go the same day to [place] [facility] for a blood test. They told her it would take 2 weeks to get the results. She said she feels there was a error in getting the results to him. I told herwe are on the same computer system and have access to the same information. Pt does not want to come in tomorrow if you don't have all of the results. Pt said she is not happy with the way this has been handled. documented in this encounter Plan of Treatment Upcoming Encounters Date Type Department Care Team (Late st Contact Info) Description 12/18/2024 9:20 AM EDT Office Visit [facility] [place] [facility] [address] [place] [address] Gaetano Rosen MD [address] [place] [address] 04/15/2025 9:00 AM EST Office Visit [facility] [address] [facility] 130 [place] [address] Kylie Rice MD 112 [facility] 130 [place] [address] documented as of this encounter Visit Diagnoses Not on filedocumented in this encounter Care Teams Pressure Welder Relationship Specialty Start Date End Date Jessie Carlos NP [address] [place] [address] Referring Physician Family Medicine 10/28/24 documented as of this encounter
--- OUTSIDE RECORDS SUMMARY | 2024-12-10 15:28 | XMS_ITS | Encounter Summary ---
Author Organization [facility] Address [address] [place] [address] Care Team Providers Care Architectural Technician Name Role Phone Jessie Carlos HYDRAULIC PLUMBER Unavailable Encounter Details Date Type Department Care Team (Late st Contact Info) Description 10/28/2024 Orders Only [facility] [place] [facility] [address] [place] [address] Shaikh Gross MD [address] [address] Social History Tobacco Use Types Packs/Day Years [...] [facility] [place] [facility] [address] [place] [address] Gaetano Rosen MD [address] [place] [address] 04/15/2025 9:00 AM EST Office Visit [facility] [place] [facility] [address] [place] [address] Kylie Rice MD [address] [facility] 130 [place] [address] documented as of this encounter Procedures Procedure [...] on filedocumented in this encounter Care Teams Architectural Technician Relationship Specialty Start Date End Date Jessie Carlos NP 1 [place] [address] Referring Physician Family Medicine 10/28/24 documented as of this encounter
--- OUTSIDE RECORDS SUMMARY | 2024-12-10 15:28 | XMS_ITS | Clinical Summary ---
Author Organization [facility] Address [address] [place] [address] Care Team Providers Care Intelligence Operations Name Role Phone Willie Cardona MD Primary Care Provider [phone] Allergies No known active allergies Medications cyanocobalamin, [...] COVID-19 Vaccine (1 - 2023-2 5 season) 2024 Influenza Vaccine (#1) 2024 HIB Vaccines Aged [...] topic Insurance [employer] MEDICARE ADVANTAGE Care Teams Intelligence Operations Relationship Specialty Start Date End Date Willie Cardona MD [address] [place] [address] PCP - General Family Medicine 11/08/22
--- OUTSIDE RECORDS SUMMARY | 2024-12-10 15:28 | XMS_ITS | Encounter Summary ---
Author Organization [facility] Address [address] [place] [address] Care Team Providers Care Tool Machine Setup Operator Name Role Phone Jessie Carlos WEB MARKETING MANAGER Unavailable Encounter Details Date Type Department Care Team (Late st Contact Info) Description 10/22/2024 Orders Only [facility] [address] [place] [address] Jessie Carlos, STEFANY 1 [place] [address] Social History Tobacco Use Types [...] Office Visit [facility] [address] [place] [address] Gaetano Rosen MD [address] [place] [address] 04/15/2025 9:00 AM EST Office Visit [facility] [address] [place] [address] Kylie Rice MD [address] [place], [place] [address] documented as of this encounter Procedures Procedure [...] on filedocumented in this encounter Care Teams Tool Machine Setup Operator Relationship Specialty Start Date End Date Jessie Carlos NP [address] [place] [address] Referring Physician Family Medicine 10/28/24 documented as of this encounter
--- OUTSIDE RECORDS SUMMARY | 2024-12-10 15:28 | XMS_ITS | Encounter Summary ---
Author Organization [facility] Address [address] [place] [address] Care Team Providers Care Room Cooler Installer Name Role Phone Jessie Carlos INKER AND OPAQUER Unavailable Encounter Details Date Type Department Care Team (Latest Contact Info) Description 12/09/2024 Travel Social History Tobacco Use Types Packs/Day Years [...] Description 12/18/2024 9:20 AM EDT Office Visit [facility] [address] [place] [address] Gaetano Rosen MD [address] [place] [address] 04/15/2025 9:00 AM EST Office Visit [facility] [address] [place] [address] Kylie Rice MD [address] [place] [address] documented as of this encounter Visit Diagnoses Not on filedocumented in this encounter Care Teams Room Cooler Installer Relationship Specialty Start Date End Date Jessie Carlos NP [address] [place] [address] Referring Physician Family Medicine 10/28/24 documented as of this encounter
--- OUTSIDE RECORDS SUMMARY | 2024-12-10 15:28 | XMS_ITS | Encounter Summary ---
Author Organization [facility] Address [address] [place] [address] Care Team Providers Care Trimming Assembler Name Role Phone Jessie Carlos ROBOT OPERATOR Unavailable Encounter Details Date Type Department Care Team (Late st Contact Info) Description 12/04/2024 Bamboo flowsheet [facility] [address] [place] [phone] Gaetano Rosen MD [address] [place] [address] Social History Tobacco Use Types Packs/Day Years [...] [facility] [address] [place] [address] Gaetano Rosen MD [address] [place] [address] 04/15/2025 9:00 AM EST Office Visit [facility] [address] [place] [address] Kylie Rice MD [address] [address] documented as of this encounter Visit Diagnoses Not on filedocumented in this encounter Care Teams Trimming Assembler Relationship Specialty Start Date End Date Jessie Carlos NP [address] [place] [address] Referring Physician Family Medicine 10/28/24 documented as of this encounter
--- OUTSIDE RECORDS SUMMARY | 2024-12-10 15:28 | XMS_ITS | Encounter Summary ---
Author Organization [facility] Address [address] [place] [address] Care Team Providers Care Corn Shucker Name Role Phone Jessie Carlos CNP Primary Care Provider [phone] Encounter Details Date Type Department Care Team (Late st Contact Info) Description 06/13/2024 Orders Only [facility] Radiology External Films [address] [place] [address] Social History Tobacco Use Types [...] on filedocumented in this encounter Care Teams Corn Shucker Relationship Specialty Start Date End Date Jessie Carlos CNP 1 [place] [address] PCP - General Nurse Practitioner 06/13/24 documented as of this encounter
--- OUTSIDE RECORDS SUMMARY | 2024-12-10 15:28 | XMS_ITS | Encounter Summary ---
Author Organization [facility] Address [address] [place] [address] Care Team Providers Care Clinical Academic Allergist Name Role Phone Jessie Carlos ELEVATOR CONSTRUCTOR HYDRAULIC Unavailable Encounter Details Date Type Department Care Team (Late Contact Info) Description 12/09/2024 Bamboo flowsheet [facility] [place] [facility] [address] [place] [address] Kylie Rice MD [address] [place] [address] Social History Tobacco Use Types [...] EDT Office Visit [facility] [place] [facility] [address] [place] [address] Gaetano Rosen MD [address] [place] [address] 04/15/2025 9:00 AM EST Office Visit [facility] [place] [facility] [address] [place] [address] Kylie Rice MD 112 [facility] 130 [place] [address] documented as of this encounter Visit Diagnoses Not on filedocumented in this encounter Care Teams Clinical Academic Allergist Relationship Specialty Start Date End Date Jessie Carlos NP [address] [place] [address] Referring Physician Family Medicine 10/28/24 documented as of this encounter
--- OUTSIDE RECORDS SUMMARY | 2024-12-10 15:28 | XMS_ITS | Clinical Summary ---
Author Organization [facility] Address [address] [facility] [place] [address] Care Team Providers Care Securities Broker Name Role Phone Jessie Carlos INVESTIGATOR WELFARE Unavailable Allergies No known active allergies Medications calcium carbonate 1500 (600 Ca) MG tablet Take 1,200 mg by mouth in the morning. 5 Active carboxymethylcel lulose (Refresh Liquigel) 1 % ophthalmic solution dropperette 5 Active Cyanocobalamin 1000 MCG/ML liquid Take 1 tablet by mouth in the morning. Active ergocalciferol (Vitamin D2) 1.25 MG (38513 UT) capsule Take 1 capsule by mouth once a week Active lactobacillus (Culturelle) capsule Take 1 capsule by mouth in the morning and 1 capsule in the evening. Take with meals. 4 Active omega-3 acid ethyl esters (Lovaza) 1 g capsule Take 2 g by mouth in the morning and 2 g in the evening. Active pyridoxine (Vitamin B-6) 25 MG tablet take 1 tab po qd/bid Active amLODIPine (Norvasc) 5 MG tablet Take by mouth 3 12/01/19 25 Active Problems Problem Noted Date Diagnosed Date Acute pain of left shoulder 10/22/2024 Adult BMI 37.0-37.9 kg/sq m 10/22/2024 History of paranoid disorder 10/22/2024 Memory impairment 10/22/2024 Mixed hyperlipidemia 10/22/2024 Post-menopause bleeding 10/22/2024 Encounters Date Type Department Care Team Description 12/09/2024 9:50 AM EDT Office Visit [facility] [address] [place] [address] Kylie Rice MD Thyroid mass (Primary Dx) 12/09/2024 Bamboo flowsheet [facility] [place] [facility] [address] [place] [address] Kylie Rice MD 12/09/2024 Travel 12/08/2024 Telephone [facility] [place] [facility] [address] [place] [address] Kylie Rice MD blood results 12/05/2024 Orders Only [facility] [place] [facility] [address] [place] [address] Kylie Rice MD 12/04/2024 9:50 AM EDT Office Visit [facility] [address] [place] [address] Gaetano Rosen MD Subclinical hyperthyroidism (Primary Dx); Thyroid nodule 12/04/2024 Orders Only [facility] [place] [facility] [address] [place] [address] Gaetano Rosen MD 12/04/2024 Bamboo flowsheet [facility] [place] [facility] [address] [place] [address] Gaetano Rosen MD 11/19/2024 Orders Only [facility] [place] [facility] [address] [place] [address] Kylie Rice MD 10/28/2024 8:40 AM EDT Office Visit [facility] [place] [facility] [address] [place] [address] Kylie Rice MD Thyroid mass (Primary Dx) 10/28/2024 Orders Only [facility] [place] [facility] [address] [place] [address] Shaikh Gross MD 10/28/2024 Bamboo flowsheet [facility] [place] [facility] [address] [place] [address] Kylie Rice MD 10/28/2024 Travel 10/22/2024 Orders Only [facility] [place] [facility] [address] [place] [address] Jessie Carlos NP from Last 3 Months [...] Mass Index 35.74 12/09/2024 9:39 AM EDT Plan of Treatment Upcoming Encounters Date Type Department Care Team (Late st Contact Info) Description 12/18/2024 9:20 AM EDT Office Visit [facility] [place] [facility] [address] [place] [address] Gaetano Rosen MD [address] [place] [address] 04/15/2025 9:00 AM EST Office Visit [facility] [place] [facility] [address] [place] [address] Kylie Rice MD [address] [place] [address] Procedures Procedure Name Priority Date/Time Associated Diagnosis Comments TSH Routine 12/04/2024 10:24 AM EDT Thyroid nodule Subclinical hyperthyroidism T4, FREE Routine 12/04/2024 10:24 AM EDT Thyroid nodule Subclinical hyperthyroidism T3, FREE Routine 12/04/2024 10:24 AM EDT Thyroid nodule Subclinical hyperthyroidism THYROID PEROXIDASE ANTIBODIES Routine 12/04/2024 10:24 AM EDT Thyroid nodule Subclinical hyperthyroidism THYROTROPIN RECEPTOR ANTIBODY Routine 12/04/2024 10:24 AM EDT Thyroid nodule Subclinical hyperthyroidism THYROGLOBULIN ANTIBODIES Routine 12/04/2024 10:24 AM EDT Thyroid nodule Subclinical hyperthyroidism T3, FREE Routine 12/04/2024 9:29 AM EDT T4, FREE Routine 12/04/2024 9:28 AM EDT TSH Routine 12/04/2024 9:27 AM EDT GENERAL PATHOLOGY Routine 11/13/2024 3:1 1 PM EDT US NEEDLE GUIDED BIOPSY Routine 11/13/2024 10:03 AM EDT US THYROID Routine 10/22/2024 3:47 PM EDT US THYROID Routine 10/20/2024 1:56 PM EDT SCANNED LABS Routine 10/14/2024 2:32 PM EDT from Last 3 Months Results * Thyroid peroxidase antibody (12/04/2024 10:24 AM EDT) THYROID PEROXIDASE (TPO) AB 13 0 - 34 IU/mL [facility] Blood Venous blood specimen / Unknown 12/04/2024 10:24 AM EDT 12/04/2024 Narrative [facility] - 12/05/2024 8:35 PM EDT Performed at: [address] [place], [place] [address], [place] [id number] Nursery Laborer: Matias Flores PhD, Phone: [phone] Gaetano Rosen MD LAB BLOOD ORDERABLES Final Re sult Performing Organization Address [facility] de Phone Number [facility] * Thyrotropin receptor antibody (12/04/2024 10:24 AM EDT) THYROTROPIN RECEPTOR AB, SERUM <1.10 0.00 - 1.75 IU/L [facility] Blood Venous blood specimen / Unknown 12/04/2024 10:24 AM EDT 12/04/2024 Narrative [facility] - 12/05/2024 8:35 PM EDT Performed at: [address] [id number] Nursery Laborer: Shelia Thomason MD, Phone: [phone] Gaetano Rosen MD LAB BLOOD ORDERABLES Final Re sult Performing Organization Address [facility] de Phone Number [facility] * Thyroglobulin Antibody (12/04/2024 10:24 AM EDT) Pathologist [facility] THYROGLOBULIN ANTIBODY <1.0 0.0 - 0.9 IU/mL [facility] Comment: Thyroglobulin Antibody measured by Lea Nilson Methodology It should be noted that the presence of thyroglobulin antibodies may not be pathogenic nor diagnostic, especially at very low levels. The assay nail feeder has found that four percent of individuals without evidence of thyroid disease or autoimmunity will have positive TgAb levels up to 4 IU/mL. Blood Venous blood specimen / Unknown 12/04/2024 10:24 AM EDT 12/04/2024 Narrative [facility] - 12/05/2024 8:35 PM EDT Performed at: [address] [id number] Nursery Laborer: Matias Flores PhD, Phone: [phone] Gaetano Rosen MD LAB BLOOD ORDERABLES Final Re sult Performing Organization Address [facility] de Phone Number [facility] * T3, free (12/04/2024 10:24 AM EDT) Only the most recent of2 resultswithin the time period is included. T3, FREE 3.5 2.0 - 4.4 pg/mL [facility] Blood Venous blood specimen / Unknown 12/04/2024 10:24 AM EDT 12/04/2024 Narrative [facility] - 12/05/2024 8:35 PM EDT Performed at: [address] [id number] Nursery Laborer: Matias Flores PhD, Phone: [phone] Gaetano Rosen MD LAB BLOOD ORDERABLES Final Re sult Performing Organization Address [facility] de Phone Number [facility] * (ABNORMAL) TSH (12/04/2024 10:24 AM EDT) Only the most recent of2 resultswithin the time period is included. TSH 0.206(L) 0.450 - 4.500 uIU/mL [facility] Blood Venous blood specimen / Unknown 12/04/2024 10:24 AM EDT 12/04/2024 Narrative [facility] - 12/05/2024 8:35 PM EDT Performed at: [place] [address] , [address], [place], [place] [id number] Nursery Laborer: Arielle Valenzuela MD, Phone: [phone] Gaetano Rosen MD LAB BLOOD ORDERABLES Final Re sult Performing Organization Address [facility] de Phone Number [facility] * T4, free (12/04/2024 10:24 AM EDT) Only the most recent of2 resultswithin the time period is included. T4Free(Direct) 0.94 0.82 - 1.77 ng/dL [facility] Blood Venous blood specimen / Unknown 12/04/2024 10:24 AM EDT 12/04/2024 Narrative [facility] - 12/05/2024 8:35 PM EDT Performed at: - [facility] [address], [place], [place] [id number] Nursery Laborer: Arielle Valenzuela MD, Phone: [phone] us Gaetano Rosen MD LAB BLOOD ORDERABLES Final Re sult [facility] * GENERAL PATHOLOGY (11/13/2024 3:11 PM EDT) us Kylie Rice MD [facility] Final Result * US NEEDLE GUIDED BIOPSY (11/13/2024 10:03 AM EDT) Anatomical Region Laterality Modality Radiographic Angelique ging Kylie Rice MD IMG XR PROCEDURES Final Resul t * US thyroid (10/22/2024 3:47 PM EDT) Only the most recent of2 resultswithin the time period is included. Anatomical Region Laterality Modality Head, Neck Ultrasound us Jessie Carlos NP IMG US PROCEDURES Edited Result - Final * SCANNED LABS (10/14/2024 2:32 PM EDT) us Jessie Carlos NP LAB CHG PERFORMABLES Final Resul t from Last 3 Months Insurance MEDICARE [employer] Advance Directives Documents on File Type Date Recorded Patient Pain Management Specialist Expl anation Advance Directives and Living Will 01/27/2019 2015-06-14 Power of Sales Consultant Advance Directives and Living Will 01/27/2019 2015-06-14 Living [facility] Care Teams Securities Broker Relationship Specialty Start Date End Date Jessie Carlos NP [address] [place] [address] Referring Physician Family Medicine 10/28/24
--- OUTSIDE RECORDS SUMMARY | 2024-12-10 15:28 | XMS_ITS | Encounter Summary ---
Author Organization [facility] Address [address] [place] [address] Care Team Providers Care Acid Conditioning Worker Name Role Phone Jessie Carlos HIDE SPREADER Unavailable Encounter Details Date Type Department Care Team (Late st Contact Info) Description 12/04/2024 Orders Only [facility] [facility] [address] [place] [phone] Gaetano Rosen MD [address] [place] [address] Social History Tobacco Use Types [...] AM EDT Office Visit [facility] [address] [place] [address] Gaetano Rosen MD [address] [place] [address] 04/15/2025 9:00 AM EST Office Visit [facility] [address] [place] [address] Kylie Rice MD [address] [facility] [address] [place] [address] documented as of this encounter Procedures Procedure Name Priority Date/Time Associated Diagnosis Comments T3, FREE Routine 12/04/2024 9:29 AM EDT T4, FREE Routine 12/04/2024 9:28 AM EDT TSH Routine 12/04/2024 9:27 AM EDT documented in this encounter Results * T3, free (12/04/2024 9:29 AM EDT) Blood Venous blood specimen / Unknown us Gaetano Rosen MD LAB BLOOD ORDERABLES Final Re sult * T4, free (12/04/2024 9:28 AM EDT) Blood Venous blood specimen / Unknown us Gaetano Rosen MD LAB BLOOD ORDERABLES Final Re sult * TSH (12/04/2024 9:27 AM EDT) Blood Venous blood specimen / Unknown us Gaetano Rosen MD LAB BLOOD ORDERABLES Final Re sult documented in this encounter Visit Diagnoses Not on filedocumented in this encounter Care Teams Acid Conditioning Worker Relationship Specialty Start Date End Date Jessie Carlos NP [address] [place] [address] Referring Physician Family Medicine 10/28/24 documented as of this encounter
--- OUTSIDE RECORDS SUMMARY | 2024-12-10 15:28 | XMS_ITS | Encounter Summary ---
Author Organization [facility] Address [address] [place] [address] Care Team Providers Care Information Developer Name Role Phone Jessie Carlos CONTINUOUS IMPROVEMENT CONSULTANT Unavailable Encounter Details Date Type Department Care Team (Late Contact Info) Description 12/05/2024 Orders Only [facility] [address] [place] [address] Kylie Rice MD [address] [place] [address] Social History Tobacco Use Types [...] [facility] [address] [place] [address] Gaetano Rosen MD [address] [place] [address] 04/15/2025 9:00 AM EST Office Visit [facility] [address] [place] [address] Kylie Rice MD [address] [address] documented as of this encounter Procedures Procedure Name Priority Date/Time Associated Diagnosis Comments US NEEDLE GUIDED BIOPSY Routine 11/13/2024 10:03 AM EDT documented in this encounter Results * US NEEDLE GUIDED BIOPSY (11/13/2024 10:03 AM EDT) Anatomical Region Laterality Modality Radiographic Angelique ging Kylie Rice MD IMG XR PROCEDURES Final Resul t documented in this encounter Visit Diagnoses Not on filedocumented in this encounter Care Teams Information Developer Relationship Specialty Start Date End Date Jessie Carlos NP [address] [place] [id number] Referring Physician Family Medicine 10/28/24 documented as of this encounter
--- OUTSIDE RECORDS SUMMARY | 2024-12-10 15:28 | XMS_ITS | Encounter Summary ---
Author Organization [facility] Address [address] [place] [address] Care Team Providers Care Metal Pattern Maker Name Role Phone No, Physician Primary Care Provider Jessie Raman CNP Primary Care Provider [phone]- [phone] Encounter Details Date Type Department Care Team (Late st Contact Info) Description 04/18/2022 Orders Only [facility] Rad[facility] External Films [address] [place], [place] [id number] Social History Tobacco Use Types Packs/Day Years [...] on filedocumented in this encounter Care Teams Metal Pattern Maker Relationship Specialty Start Date End Date No, Physician [facility] PCP - General 04/18/22 06/12/24 Jessie Carlos, WARP KNITTER [address] [place] [address] PCP - General Nurse Practitioner 06/13/24 documented as of this encounter
--- OUTSIDE RECORDS SUMMARY | 2024-12-10 15:28 | XMS_ITS | Clinical Summary ---
Author Organization [facility] Address [address] [place] [address] Care Team Providers Care Outside Sales Account Representative Name Role Phone Jessie Carlos HARP ACTION ASSEMBLER Primary Care Provider [phone] Allergies No known active allergies Medications cyanocobalamin, [...] MG tablet Take by mouth . 12/13/2022 Active Active Problems No known active problems [...] 08/07/2013, 03/19/19 05 COVID-19 Vaccine ( - season) 2024 Influenza Vaccine (#1) 2024 Insurance [employer] OTHER AFTER MEDICARE MEDICARE PART A & B Member Subscriber Plan / Payer (Ef fective 2007-Present) Name:Elisa Wills Member ID:[id number] Relation to Subscriber:Self Name:Elisa Wills Subscriber ID:[id number] Payer ID:Not on file Group ID:Not on file Type:Not on file Address: [facility] [place] [address]15 PART A CLAIMS [address] [address] [place] [address] Care Teams Outside Sales Account Representative Relationship Specialty Start Date End Date Jessie Carlos, HARP ACTION ASSEMBLER [address] [place] [address] PCP - General Nurse Practitioner 06/13/24
--- OUTSIDE RECORDS SUMMARY | 2024-12-10 15:28 | XMS_ITS | Encounter Summary ---
Author Organization [facility] Address [address] [place] [address] Care Team Providers Care Aircraft Pneudraulics Repairer Name Role Phone No, Physician Primary Care Provider Jessie Raman CNP Primary Care Provider [phone]- [phone] Encounter Details Date Type Department Care Team (Late st Contact Info) Description 04/18/2022 Orders Only [facility] Radiology External Films [address] [place], [place] [id number] Social History Tobacco Use Types Packs/Day Years [...] on filedocumented in this encounter Care Teams Aircraft Pneudraulics Repairer Relationship Specialty Start Date End Date No, Physician [facility] PCP - General 04/18/22 06/12/24 Jessie Carlos, SOFTWARE PRODUCT SPECIALIST [address] [place] [address] PCP - General Nurse Practitioner 06/13/24 documented as of this encounter
--- OUTSIDE RECORDS SUMMARY | 2024-12-10 15:28 | XMS_ITS | Clinical Summary ---
Author Organization [facility] Address [id number] [address] [place] [address] Care Team Providers Care Budget Clerk Name Role Phone No Pcp, No Pcp [...] Not on file Insurance MEDICARE Care Teams Budget Clerk Relationship Specialty Start Date End Date No Pcp, [place] [address] PCP - General Family Medicine 11/01/17
--- OUTSIDE RECORDS SUMMARY | 2024-12-10 15:30 | XMS_ITS | CCD ---
Author Organization [facility] Care Team Providers Care Rip And Groove Machine Operator Name Role Phone DR MIGEL RAMSEY Consulting Unavailable FAWWAD, ARAIZA H Primary Care Unavailable FAWWALiliana, ARAIZA H Attending Unavailable FAWWAD, ARAIZA H Admitting Unavailable FAWWALiliana ARAIZA H Consulting Unavailable No, Physician Primary Care Provider UnavailSTEVE Youssef Attending Unavailable Camila Carlos Primary Care Physician [phone] COSMO, CAMILA Primary Care Unavailable OLEARAMON Consulting Unavailable GHAZARIAN JOVAN Attending Unavailable GHAZARIAN JOVAN Admitting Unavailable Cosmo SHOE CLEANER - CREPE BOX TENDER, Camila Primary Care Provider IACOB RADHIKA Referring Unavailable COSMO, CAMILA Primary Care Unavailable IACOB, RADHIKA Referring Unavailable COSMO, CAMILA Primary Care Unavailable COSMO, CAMILA Primary Care Unavailable MICHELLE COX Admitting Unavailable MICHELLE COX Attending Unavailable OLEA, RAMON De La Vega Admitting Unavailable RAMON OLEA Attending Unavailable COSMO, CAMILA Primary Care Unavailable MICHELLE COX Consulting Unavailable IACOB, RADHIKA Referring Unavailable COSMO, CAMILA Primary Care Unavailable IACOB, RADHIKA Referring Unavailable COSMO, CAMILA Primary Care Unavailable OLEA, RAMON Referring Unavailable NO PCP, NO PCP Primary Care Unavailable Cosmo Camila AGUAYO Primary Care Provider COSMO, CAMILA SAPP Primary Care Unavailable LUIS FELIPE LOPES Attending Unavailable COSMO, CAMILA SAPP Primary Care Unavailable LUIS FELIPE LOPES Referring Unavailable LUIS FELIPE LOPES Admitting Unavailable COSMO, CAMILA SAPP Primary Care Unavailable LUIS FELIPE LOPES Referring Unavailable LUIS FELIPE LOPES Admitting Unavailable Arnol Huston Jr Attending Unavailable Al Shwefátima, Ernesto Attending Unavailable Al Shweiki, Ernesto Referring Unavailable Mykel Cordova MD, Ernesto Unavailable Unavailabl e Cosmo, Camila L Attending Unavailable Cosmo, Camila L Admitting Unavailable JIMMIE, KIA A Admitting Unavailable JIMMIE, KAI A Attending Unavailable JIMMIE, KIA A Attending Unavailable Cosmo CREPE BOX TENDER, Camila Unavailable Cosmo, Camila Moreno Attending Unavailable Cosmo, Camila L Admitting Unavailable Cosmo, Camila L Admitting Unavailable Cosmo, Camila Moreno Attending Unavailable NILL, Alfonso Scott Attending Unavailable Cosmo, Camila Moreno Attending Unavailable Cosmo, Camila Moreno Attending Unavailable Cosmo, Camila Moreno Attending Unavailable Cosmo, Camila L Admitting Unavailable Cuauhtemoc Jacobo MD Attending Provider Unavailab abelardo Dudley MD, Alfonso Scott Attending Provider Krystal Shook, Cuauhtemoc Fragoso Admitting Unavailable Timkirby Shook, Cuauhtemoc Fragoso Attending Unavailable Nill, Alfonso Scott Attending Unavailable Nill, Alfonso Scott Admitting Unavailable Cosmo, PSYCHIATRIC CLINICAL NURSE SPECIALIST Camila Moreno Attending Unavailable Cosmo, PSYCHIATRIC CLINICAL NURSE SPECIALIST Camila Moreno Attending Unavailable JIMMIE, TEST ARCHITECT KIA A Attending Unavailabl e Cosmo, PSYCHIATRIC CLINICAL NURSE SPECIALIST Camila Moreno Attending Unavailable Cosmo, PSYCHIATRIC CLINICAL NURSE SPECIALIST Camila Moreno Admitting Unavailable Cosmo, PSYCHIATRIC CLINICAL NURSE SPECIALIST Camila Moreno Attending Unavailable Cosmo, Camila Moreno Attending Unavailable Cosmo, Camila Moreno Admitting Unavailable NILL, Alfonso Scott Attending Unavailable TIMMICUAUHTEMOC Cannon Attending Unavailable CUAUHTEMOC JACOBO Consulting Unavailable CUAUHTEMOC JACOBO Admitting Unavailable JIMMIE, KIA A Referring Unavailable JIMMIE, KIA A Admitting Unavailable JIMMIE, KIA A Attending Unavailable JIMMIE, KIA A Referring Unavailable JIMMIE, KIA A Admitting Unavailable JIMMIE, KIA A Attending Unavailable NILL, Alfonso Scott Attending Unavailable JIMMIE, KIA A Attending Unavailable TIMMISCUAUHTEMOC Attending Unavailable SANNAGAETANO LANDON Attending Unavailable COSMO, CAMILA Referring Unavailable TIMCUAUHTEMOC SKINNER Attending Unavailable Allergies Allergy Classification Reported Allergen(s) Allergy Type Date of Onset Reaction(s) Facility (1 source) Corticosteroids Drug allergy (disorder) [address] [facility] Repository Medications Current Medications Medication Drug [...] per tablet 1 tablet Acidophilus Probiotic Blend (3 sources) Start: 06-26-2023 take 1 capsule by mouth twice daily Acidophilus Probiotic Blend 1 cap(s), Oral, BID, Refill(s) 0 Start Date: 06/26/23 Status: Ordered Repeat number: 1 Start: 06-26-2023 take 1 capsule by [facility] twice daily Acidophilus Probiotic Blend 1 [...] Active calcium carbonate 1500 mg oral tablet (13 sources) Start: 05-01-2024 take 1 tablet by mouth in the morning calcium carbonate 1500 (600 Ca) MG tablet Take 1,200 mg by mouth in the morning. 05/01/2024 Active Start: 05-01-2024 take 2 tablets by mo [facility] once daily calcium carbonate (OS-MARYCARMEN) 600 mg calcium (1,500 mg) tablet Take 2 (two) tablets (1,200 mg total) by mouth daily . 05/01/2024 Active Start: 05-01-2024 End: 04-26-2025 calcium (as carbonate) 600 m g oral tablet 1,200 mg = 2 tab(s), Oral, Daily, X 90 day(s), # 180 tab(s), Refills(s) 3, Pharmacy: [facility] #[id number], 158, cm, 04/24/24 14:32:00 EST, Height/Length Dosing, 88.3, kg, 04/24/24 14:32:00 EST, Weight Dosing Start Date: 05/01/24 Stop Date: 04/26/25 Status: Ordered Quantity: 180.0 Unit: tab(s) Repeat number: 4 take 1 tablet by [facility] twice daily Calcium-600 600 mg (as calcium carbonate 1,500 mg) tablet take 1 tablet by oral route 2 times every day 1 tablet - Active carboxymethylcellulose 0.01 mg/mg ophthalmic gel (10 sources) Start: 07-28-2024 carboxymethylcellulose (Refresh Liquigel) 1 [...] procedure. Post-op ergocalciferol 1.25 mg oral capsule (11 sources) Provitamin D2 Compound Start: 05-01-2024 take 1 capsule by mouth every week ergocalciferol (ERGOCALCIFEROL) 1,250 mcg (50,000 unit) capsule Take 1 (one) capsule (50,000 Units total) by mouth once a week . 05/01/2024 Active take 1 capsule by mouth every we ek Vitamin D2 1,250 mcg (50,000 unit) capsule take 1 capsule by oral route every week 29623 UNITS - Active lactobacillus rhamnosus gg [id number] unt oral capsule (13 sources) Start: 06-22-2023 take 1 capsule by mouth in the morning lactobacillus (Culturelle) capsule Take 1 capsule by mouth in the morning and 1 capsule in the evening. Take with meals. 06/22/2023 Active Start: 06-22-2023 take 1 capsule by mo [facility] twice daily at mealtime lactobacillus (CULTURELLE) capsule [...] qd - Active omega-3 acid ethyl esters (retirement) 1000 mg oral capsule (11 sources) take 1 capsule by mouth in the morning omega-3 acid ethyl esters (Lovaza) 1 g capsule Take 2 g by mouth in the morning and 2 g in the evening. Active 2 ml ondansetron 2 mg/ml injection (1 source) Serotonin-3 Receptor Antagonist Start: 07-31-19 24 ondansetron (ZOFRAN) injection 4 mg ondansetron (ZOFRAN-ODT) disintegrating tablet 4 mg (1 source) Start: 07-17-19 24 ondansetron (ZOFRAN-ODT) disintegrating tablet 4 mg oxyCODONE (1 source) Opioid Agonist Start: 07-17-19 24 oxyCODONE (ROXICODONE) immediate release tablet 5 mg piperacillin-tazobacta m (ZOSYN) 3,375 mg in sodium chloride 0.9 % 50 mL IVPB ([id number]) (1 source) Start: 07-31-19 24 piperacillin-tazobacta m (ZOSYN) 3,375 mg in sodium chloride 0.9 % 50 mL IVPB (Ubhb2Zuw) polyvinyl alcohol 0.014 ml/ml / povidone 6 [...] daily pyridoxine hydrochloride 25 mg oral tablet (10 sources) pyridoxine (Lisa min B-6) 25 MG tablet take 1 tab po qd/bid Active terbinafine hydrochloride 10 mg/ml topical cream (1 source) Allylamine Antifungal Start: 03-30-19 24 Lamisil AT 1% Cream 1 ashwini, Topical, BID, 12 gram, Refill(s) 0, [facility] #[id number], 155, cm, 03/30/23 10:41:00 EST, Height/Length Dosing, 87.6, kg, 03/30/23 10:41:00 EST, Weight Dosing Start Date: 03/30/23 Status: Ordered vitamin b12 1 mg/ml oral solution (17 sources) Vitamin B12 End: 07-17-19 take 1 tablet by mouth in the [...] % injection 75 mL polyethylene glycol 3350 55319 mg powder for oral solution (1 source) [...] 50,000 intl units (1.25 mg) oral capsule (2 sources) Start: 05-01-2024 take 1 capsule by mouth every week Vitamin D 50,000 intl units (1.25 mg) oral capsule 50,000 International_Unit = 1 cap(s), Oral, qWeek, # 12 cap(s), Refills(s) 4, Pharmacy: [facility] #[id number], 158, cm, 04/24/24 14:32:00 EST, Height/Length Dosing, 88.3, kg, 04/24/24 14:32:00 EST, Weight Dosing Start Date: 05/01/24 Status: Ordered Quantity: 12.0 Unit: cap(s) Repeat number: 5 Problems Active Problems Problem Classification Problem Date Documented Da te Episodic/Chronic Abdominal hernia (11 sources) Irreducible hernia of anterior abdominal wall; Translations: [Other and unspecified ventral hernia with obstruction, without gangrene] Onset: 07-17-2023 Resolved: 07-25-2023 07-18-2023 Episodic Abdominal pain (6 sources) Epigastric pain; Translations: [Epigastric pain] Onset: 06-20-2023 Resolved: 07-16-2023 07-16-2023 Episodic Cataract (2 sources) Presence of intraocular lens; Translations: [Pseudophakia] Onset: 07-28-2024 Chronic Complications of surgical procedures or medical care (12 sources) Wound dehiscence; Translations: [Disruption of wound, unspecified, initial encounter] Onset: 07-16-2023 Resolved: 07-25-2023 07-18-2023 Episodic Disorders of lipid metabolism (13 sources) Hypercholesterolemia ; Translations: [Mixed hyperlipidemia] Onset: 10-22-2024 04-10-2024 Chronic Essential hypertension (10 sources) Hypertensive disorder; Translations: [Essential (primary) hypertension] Onset: 07-17-2023 02-05-2023 Chronic Menopausal disorders (10 sources) Postmenopausal bleeding; Translations: [Postmenopausal bleeding] Onset: [...] 06-13-2024 Episodic Other and unspecified benign neoplasm (3 sources) Lipoma of back 06-27-2023 Episodic Other and unspecified benign neoplasm (2 sources) Benign neoplasm of left choroid; 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] Onset: 07-28-2024 Episodic Other and unspecified benign neoplasm (2 sources) Lipoma of skin and subcutaneous tissue of limb; Translations: [Benign lipomatous neoplasm of skin and subcutaneous tissue of unspecified limb] Onset: 10-21-2024 Episodic Other and unspecified benign neoplasm (2 sources) Lipoma of upper arm 10-21-2024 Episodic Other and unspecified benign neoplasm (2 sources) Lipoma of upper limb 10-14-2024 Episodic Other connective tissue disease (3 sources) History of right total knee replacement; Translations: [Presence of right artificial knee joint] Chronic Other connective tissue disease (2 sources) Presence of right artificial knee joint; Translations: [Presence of right artificial knee joint] Onset: 06-13-2024 Chronic Other connective tissue disease (3 sources) Ganglion cyst of right dorsal wrist [...] Onset: 07-17-2023 Episodic Other non-traumatic joint disorders (10 sources) Pain in left shoulder; Translations: [Pain in joint, shoulder region] Onset: 10-22-2024 10-22-2024 Episodic Other nutritional; endocrine; and metabolic disorders (14 sources) Body mass index 30+ - obesity; Translations: [Body mass index (BMI) 37.0-37.9, adult] Onset: 10-22-2024 02-05-2023 Chronic Other nutritional; endocrine; and metabolic disorders (2 sources) Obesity caused by energy imbalance 10-21-2024 Chronic Other nutritional; endocrine; and metabolic disorders (1 source) Obese class I 10-22-2024 Chronic Other skin disorders (3 sources) Changes in skin texture 10-01-2023 Episodic Other skin disorders (2 sources) Excessive sweating 10-14-2024 Episodic Other skin disorders (2 sources) Loss of hair 10-14-2024 Episodic Other skin disorders (2 sources) Mass of upper limb 04-24-2024 Episodic Residual codes; unclassified (2 sources) Other specified health status; Translations: [Other specified conditions influencing health status] Onset: 07-31-2023 07-31-2023 Episodic Residual codes; unclassified (10 sources) Memory impairment; Translations: [Other amnesia] Onset: 10-22-2024 10-22-2024 Episodic Retinal detachments; defects; vascular occlusion; and retinopathy (2 sources) Nonexudative age-related macular degeneration, bilateral, intermediate dry stage; Translations: [Nexdtve age-related mclr degn, bilateral, intermed dry stage] Onset: 07-28-2024 Chronic Screening and history of mental health and substance abuse codes (10 sources) H/O: psychiatric disorder; Translations: [Personal history [...] claudication] Onset: 06-13-2024 06-13-2024 Episodic Thyroid disorders (6 sources) Hyperthyroidism; Translations: [Thyroid nodule] 10-17-2024 Chronic Thyroid disorders (4 sources) Mass of thyroid gland; Translations: [Disorder of thyroid, unspecified] 10-28-2024 Episodic Unclassified (2 sources) Dressing Change; Translations: [Dressing Change] Onset: 08-04-2023 Unclassified (1 source) Low back pain, unspecified; Translations: [Low back pain, unspecified] Onset: 06-13-2024 Unclassified (1 source) Non-smoker 10-22-2024 Viral infection (3 sources) Hand wart 10-01-2023 Episodic Past or [...] Test Name Value Interpretation Reference Range Facility Ambulatory Visit Summaryon 0 12-03-2024 Ambulatory Visit Summary Ambulatory Visit Summary MICHEAL BRICE :1940 Visit Date:12/03/2024 Ambulatory Visit Instructions Your Diagnosis Lipoma of arm Recurrent ventral incisional hernia Your Care Team Attending Physician - OCTAVIA JULIEN, Alfonso Scott Primary Care Physician - Camila Max This Is Your Medications List Contact prescribing physician if questions or concerns calcium carbonate (calcium (as carbonate) 600 mg oral tablet) ergocalciferol (Vitamin D 50,000 intl units (1.25 mg) oral capsule) lactobacillus acidophilus (Acidophilus Probiotic Blend) Procedures Performed Excision of lipoma (11/19/2024), Cholecystectomy (2023), Amputation of thumb, Arthroplasty of right knee, Cataract, Closed fracture of ankle, Excision of lesion of skin, Lysis of adhesions, Repair of incisional hernia, Stomach. What to do next Scheduled Follow-Up Appointments Sunday2025 9:30 AM EST With: Where: [address] [id number]- Sunday2025 10:20 AM EST With: Camila Max Where: [address] [address]- You Need to Schedule the Following Appointments Follow Up with OCTAVIA JULIEN, ARPAN Huizar When: Only if needed Where: [address] [facility] [place] [address]- Someone Will Contact You Regarding These Appointments [facility] [place] Ambulatory Referral, Service not offered at [facility], Surgery, Dr Perdomo, [facility], 12/03/24 15:09:00 EDT, Recurrent ventral incisional hernia Medications What How Much When Instructions Unchanged calcium carbonate (calcium (as carbonate) 600 [...] (BMI 30.0-34.9) Obesity due to excess calories Recurrent ventral incisional hernia S/P cholecystectomy Skin texture changes Wart of [...] signed up for this yet, please contact [employer] at [phone] to get signed up today. Language Information Language assistance services are available as needed. Normal Mane [facility] General Surgery Office/Clini c Noteon 12-03-2024 General Surgery Office/Clinic Note General Surgery Office/Clinic Note Chief Complaint post operative follow up HPI Staff 14 day post operative follow up post excisional biopsy right upper arm lipoma. Denies soreness, bleeding or drainage. Reports resolving ecchymosis. History of Present Illness 2 weeks s/p excisional biopsy lipoma right upper arm; pathology consistent with benign lipoma; doing well, no pain or drainage, minimal resolving ecchymosis; patient asking about recent abd ct scan done for possible recurrent hernia; patient had cholecystectomy in [place] in 2023; developed umbilical port site hernia that required emergency surgery in [place], with partial resection of colon; complicated by wound infection; on recent ct scan patient has large recurrent hernia containing transverse colon, no obstruction; patient reports occasional constipation and soreness in area, no skin changes; poor historian. Review of Systems PHQ Score Initial Depression Screen Score: 0 SCORE ROS - Provider Constitutional: no fever, no sweats, no weight loss. Eyes: no glasses, no blurred vision, no visual loss. [...] weakness. Skin: no changing moles, no rash, no skin lumps. Neurologic: no seizures, no epilepsy, [...] and are negative or noncontributory. Physical Exam skin: right arm incision healing well, no erythema or drainage, minimal resolving ecchymosis abd: obese, soft, nontender, nondistended; hypertrophic transverse mid abd scar; diastasis recti; recurrent reducible hernia/weakness, no skin changes, nontender. Assessment/Plan 1. Lipoma of arm (D17.20: Benign lipomatous neoplasm of skin and subcutaneous tissue of unspecified limb) healing well; call with problems/questions. Ordered: Postoperative follow-up visit, related to the original procedure 14076 2. Recurrent ventral incisional hernia (K43.2: Incisional hernia without obstruction or gangrene) recommend evaluation/repair at [facility]; referral placed. Ordered: [facility] External Ambulatory Referral Postoperative follow-up visit, related to the original procedure 44222 Follow-up With When Contact Information OCTAVIA JULIEN, Alfonso Scott, ARPAN Only if needed [address] [place] [address]- Additional Instructions: Problem List/Past Medical History Ongoing BMI 33.0-33.9,adult Excessive sweating Flank pain Ganglion cyst of dorsum of right wrist Hair thinning Hypercholesteremia Hypertension Hyperthyroidism Lipoma of arm Lipoma of back Lipoma of upper arm Mass of soft tissue of upper arm Nonsmoker Obesity (BMI 30.0-34.9) Obesity due to excess calories Recurrent ventral incisional hernia S/P cholecystectomy Skin texture changes Wart of hand Historical No qualifying data Procedure/Surgical History Excision of lipoma (11/19/2024), Cholecystectomy (2023), Amputation of thumb, Arthroplasty of right knee, Cataract, Closed fracture of ankle, Excision of lesion of skin, Lysis of adhesions, Repair of incisional hernia, Stomach. Medications Acidophilus Probiotic Blend, 1 cap(s), Oral, BID calcium (as carbonate) 600 mg oral tablet, 1200 mg= 2 tab(s), Oral, Daily, 3 refills Vitamin D 50,000 intl units (1.25 mg) oral capsule, 20249 International_Unit= 1 cap(s), Oral, qWeek, 4 refills Allergies No Known Allergies Social History Alcohol - Denies Alcohol Use, 04/04/2023 Past. Beer, Liquor. Daily., 10/14/2024 Substance Abuse Never, 04/10/2024 Tobacco - Denies Tobacco Use, 04/04/2023 Never (less than 100 in lifetime) Tobacco Use:. Never Smokeless Tobacco Use:. Household tobacco concerns: No. Yes, 12/03/2024 Family History CABG - Coronary artery bypass graft: Negative: Mother, Father, Sister and Brother. Diabetes mellitus type 2: Sister. Open heart surgery: Mother. Immunizations Vaccine Date Status Comments influenza virus vaccine, inactivated - Not Given Parent Or Guardian Refuses diphtheria/pertussis, acel/tetanus adult 08/07/2013 Recorded tetanus-diphtheria toxoids 03/19/2004 Recorded Normal [place] Comment on above: Result Comment: Elec tronically Signed By: OCTAVIA JULIEN, Alfonso Montgomery\Date and Time Signed: 12/03/24 15:11 EDT Coding Summaryon 12-02-2024 Coding Summary HTMLBase 64 LlmhntvoBUt3yDf+PGhlY WQ+ZU2MUNCpY08xzGXdcA 4sS4UKRHuOFgzpQKRROAw IUwHnvvMkUN6dvJRhUSYj IC8+VZ1bRQRmBgyoxOYlz 1Y6rUI7K81pcu9pHLtuzI B6ZIFxQdXcinwrx4wbpDw 6IDcuNmluOyBt UNUclK63SZX1bC66Hj92b ZNviNUdj5kezEm1FrIsMA QpOYV9gHurENdxv3AkQNP sZ03plAIva1M3 KVDzwGmdhSQmUpEaiTH4g G9cLBzsxahil8xtddguYu h0oc52cHKzk2M1oZN0U4T bsbW3VXGnkOAm FdbihHESwI2jslhpr7hmo ecwUcYkTPReBYr4IZp6FA BpqQigOwBvXP15IJW2SXK tbiNeD5YuCIQz iXcoZpW7z5E9It7XE4QTO mrfS9QEUAYPDLpitLG+PC 03lu89G4LrDbzhRlg4YAI xSSN8oLX1mJ6s HKPmQMzyy4A7aFA6X6Yaq zRvom0tj7woSRHgXQfjO2 7fqUKts9Q1UPOsnLM6FBV obJjrMjCokI15 Oyc+GGMcgRfyo0WfXxsbp 6ugt5pjhGz0FyrnEHKvmd XipTxmGNS2c1PwYx3qGFZ ybRX9uAH2cD6l AaHdCcW6AFpkC828KuZya JRiOfctT36oT7MduSB+PH HbGjo8QJLhwQffCE6uV5V hZGRpbmctbGVm kCdgVF2aULVspfirEWWlf B3cCYUgT5h7AtKtVmJ7BW zzR8OcGDJgpiniJy32tO0 kBoEbBbJ0VOjk S9XyrfI0KNVntDLqQPgoH TL3L09eq5Q4LXIjVITbHZ O8oZT5rY8dkRyjkoyjmAT mdDsgdmVydGlj VClwQAqzK202GMMauJfeW kNvZGluZyBEYXRlOiAgMD kvMTYvMjAyNTwvdGQ+PHR gEQF9pJvgFCGl gGXhLQxxQw4ptAukbAeuJ R7qPYMeynzqQTLnsT5dEU OqoCGuxDazYE1hBGBsrjt oc274BxNgEPV5 EYXfqWDoK4QtmG7pPzHbB CRgRZGgQ4NxuUSxOVcoM5 63ZCyeSgI0PYRqkuWsN5Q sLWFsaWduOiB0 q1Q2Qz6Ls3XtqcpgM5Eds CKxFaIdRrthAWm7I5DsJp wvdHI+IU11HZSjWL07XHi 5JRW7iKeiIOvs VLQmI0HmjD9oMyAhJFAmC GRkOyc+PHRhYmxlIHdpZH RoPScxMDAlJyBzdHlsZT0 hXx9gBFSsJKVe jSomsQRuWmGpn2kyYNBoY OrrCJ1fyHwqE5LfhSU9FM Wpl9u8It66T41iZ8IwzJT +HMNqqHR7bIF8 iF6kAoCfQnO2QUbbO612A gHcoTHcYvikg7uco2ltvK n8RaN2PPTzjsEsfCphXEK 2s7XlKl59W69b IHdpZHRoPSIxNSUiIHZhb Uxxvt8nyB5dEc1+PGNvbC Q2hPK6xI8bQkLlJtE9OIa dK014AmVvfRNs Urfky1dut8epnYc5LmVcK GLvhsScxCgjYGB5t0VqHr 19T9JatYotq1CrRkw3wl8 3mHHub6A8bQH6 G2YeKSJquxaoeVKmtLhjG F7lFVBilofpMPGfnE7pEG SuY8g2XkObSfF0LYjeL2D noxQ3KQTygAZl MVExqMBZfC6smckkb3zpc hikJhWdFLIpRXp5CAq2PP ChqObcYoVnIIJ4LpB1YDT 8iDPjtT1ibJup jvvkjT1zYtz+OXV3gKVbk IRJIW9cXsyldBS+PHRkIH C7tOeuSVykHWRntG2rZYL hP1u7FpGhUpP8 UKkyG7CwvhE5XNEmpDFxA DAtbDNFhS3nrjjio0afbh qpExBnGUZjAMj2RGf5LRF saWduOiBsZWZ0 JcQ5DKH7qLWxaH6jpCcje wwiiR7vMfv+QmlydGggRG B5PTz3C3UoPlh3LCSpqWv pUS7cjQLjRHhs Jp9rzTkdeNswKP8fPQQzq bwtn152ClJhl9ltOTIwrX DrPDciZDX1N16jq3D7LUO hHWGsIHZ3mDI8 gZ5atBftlawfcKIsxDjec yVtqPciQBzwBMksX447OW RuzJvkLmXlCQt6A4VfQoy 7YCWtwMixUD2j jUIyLUbcXh3beAfhbWvuC M0iVINkmhmit402PgZdn6 wzXGYbaXInANznGMR8D29 jt6K7UOEmSGHx TCQ8zGM8vC8xvRzecbijh GVmdDsgdmVydGljYWwtYW qxM352IIVqeCxyFyKfcQh 9Q7ObNli9RHFl dTpdPG8ybRTvSMffPu9vl BmciNvaHV8rWMUcrxktq0 93AmKas6vtECHqtRUsCLo gEXB6L63jx1Y4 CGTeZUFnXSJ5fIU2eS9gn GlnbjogbGVmdDsgdmVydG wsVPgzWXyoR952ROJkdPk nPlBhdGllbnQg IAhgFCr3V3McKfeddGQ+P N68TSYhFR44hMWcfMTjv7 antXi8MmAeMCCgFGK9sDp gXJiot4FkOIDw H06spSMzi0C5KNWamLuwn MTaYwEfuQY3kN9uBSmzyn mub4rpgaqjPdcte1xtxj6 7hG93S70hXCpw ZHRoPSIzMCUiIHZhbGlnb m8itG8jAn7+EWRweQJ3sV T4kR1mPGCmWdH0NKrlB67 9InRvcCIvPjxj e8ucu1oduBk2VzE6XNNmm cOpnZofGCL0r9RjCj41Y9 9sIHdpZHRoPSIyMCUiIHZ tsGlqta6ndJ9x Ii8+DUDnzFU1zAD5lL1mP wKkQdM4QRlyZ051JcDifY FtYrhzM55rO3HowYZ+PHR cTwy5UQMdwUmx UD6qaSByHIcxMy2wOCB5B lFcYlFoGPsdS3SpQNXenw omrrgifOL5WZTaZGEozA0 4Uc9nyQhtZVLj dCLIgI4hwiiqz0djadwiL bRpQBDxKYb9ZMw1PJDroO pfXxQzSHW1SnD6AHL8vNM pmT4vwKnzjljx eA8qI9BpFASpmhkwBt02b I5wGuOuAvL3JZpkFos+TU FXVHVcCXUOLSOCSX3LZK2 5X0SaGde6OSSo wWclVW3spWZtUKrsAj0ny JnuvBnsRB9cTGImhcumGS UxvF2qLBQlaWHofFqnNC8 vBOIjpimau070 ZpMbTDG0VMXuxPJmC3Apc G8zApRzMCGqQRUxO6EszW WjOVrhW583PTlkKeG1SRC vftFjE8FuTOBg dDovZnC4h5N4Wv9pLh4jH u7xPSUtXB77AG74fQLoo0 B8cWG0R3UeVXLauqtgmtv nyBC7VAQjQYLf iW25aGPaTAzsVv7xq9E4j 971FASqEKNiqX20Cn4tzW tqVDBltYCQgH9ozrpzz0s vcjogIzAwMDAw KVc2GTh0FIUhqPndGbPnA PV2PkS4UJS8aPYveO8onS hgwivsiM0eKmg+ODIgWWV hcgM7O0BnTah8 MBLacNhvVS3pbKYkYRjwD i8cxJcvhNxfIQ5hSCTgtn edRUFppX8uJXFxfYGkaOx hOE6hRYKofugc z950KaFvHGH3LFKljJEbF 0FouD0fEtTuPPKnNRWtH2 BapTIcJDucS355PQsgZuO 4FFMbruRvQ9Iz TZCypTuvPoH4h7L9Sw6WN P1UZTX2X1BqLqa0EIHcqI maNC2wfQWeFHabGb1ikXu qnLyuHN8lRHOd ilmsGBNqiC2bCTRbyNWww NegBR8pZTTyfdcgd066Fx MvFGF1PGBqsAOjM5GfhA4 yOiAjMDAwMDAw R0UpiGVaQLbdD628YXfpB mU2EFElnwOoL9HxYOScbN duSzO3f2W5Rw6INKvxsPA +FZ30lt53P5Bi RlonAll0AXPjEJC0oHO1j A2nWTMsUOnum1D1sCP6I4 VnzaTrxl0mu1vrLNMbBYj eX04fzXXnh8U2 KOMzqVW9CYBbqRypGhEqn G93Oyc+VAOavZjeg2DrXr yig9eic9ljaYy2KkXhTXE gdmFsaWduPSJ0 s0NfTm11D53jBFjyQCFiQ HJhJCNzXCPbxXqynt5jwF 9wIi8+KADpeGG2pOM1hI8 zEgXxTkE2ZItz Q242NlBlxQMvHxhog6cft 6xodAi3TwZaIUYeqaYlnV fnQSX5z3QrPu85M7HmdFb lm5LtFrc1zj24 pPOkp5X2eGV2X1XjUXPut wtvnEFfiWedYV3kKXZjas mfETWchC3nEKXxA8v2GqJ aVnR4NXenC2Lv llG1UMQpjNJnNJHdlQBDj Q3armpyv0dpzgydXhBlPS WoXYw2WGf8FXPkpPvrCuJ rFKG4ZoI3AMA2 fLKgwI0gxIrwzvbydF2dL yc+DUi5w7zeuQEkOR3bzC V8JT82PI81uJGkf6B7nJU 9S7XgQGEbmafn dkmktYV3BNSuQPKszE40L s9adNjiZl2hFEMjFHZ1LS AexDQiC6SbhX3xHcOvJXM pZPVgM7OfkPUa MNwaE713AZblWuT8DHWcc sAoP2CxLAJhbDxdCsW9k0 U9Wv2FQX70YV02EX79dUO mu6L7wKD4A2Zg BGQqklighvusiGA6WSJaG MWqaG80Mb5dfVwvQf0sUT IzHJI4JQVlcEKkO3ShcG9 yOiAjMDAwMDAw X9CokMUzWAupF871XAluC nK4SDVbyfMhN2XiXKVytI vaOvV5o3L6Sr9IVv06BH0 3NA35uJPzv7Q3 vBW1N0UmAWOpyjrwxapnu DJ5BDInMDAwyX63Qe0sbR ohWu2jKABwWDU0HZZcjHF jB8IubV3iBjHf YLViTLWvB8OjjAQtZFetW 881SDuiRcA5CUVzihJtU2 CiANNgzQaiRfP1q2Q5Ga2 UKWhagly8L8Dk PjwvdHI+JQ56XLWdET68z TGboAJib2hzsOw6IwAnTJ IrCFY2xChbDFpcz0DqUJV gS72oxAIai4W9 IGN (more content not included)... [facility] - AP Resultson Lab - AP Results [id number] .00OTGTIFF [facility] C Urineon 11-23-2024 Bacteria identified Cx Nom (U) Microbiology PROCEDURE: Urine Culture [R1] SOURCE: U CleanCatch BODY SITE: COLLECTED DATE/TIME: 11/21/2024 09:12 EDT RECEIVED DATE/TIME: 11/21/2024 17:59 EDT START DATE/TIME: 11/21/2024 17:59 EDT FREE TEXT SOURCE: KIA SAMUEL CNP, CNP, KIA De La Vega FINAL REPORTS Final Report [] Verified Date/Time: 11/23/2024 07:27 EDT <10,000 cfu/ml Mixed skin contaminants Performing Locations R1: This test was performed at: [facility], [address] [place] [address], [address] , , [facility] Comment on above: Performed By: #### 2 [id number] #### [facility] [address] [place] [address] Ambulatory Visit Summaryon 0 11-21-2024 Ambulatory Visit Summary Ambulatory Visit Summary MICHEAL BRICE :1940 Visit Date:11/21/2024 Ambulatory Visit Instructions Your Care Team Attending Physician - KIA SAMUEL CNP Primary Care Physician - Camila Max This Is Your Medications List amlodipine (amLODIPine 5 mg Tab) calcium carbonate (calcium (as carbonate) 600 mg oral tablet) ergocalciferol (Vitamin D 50,000 intl units (1.25 mg) oral capsule) lactobacillus acidophilus (Acidophilus Probiotic Blend) Procedures Performed Excision of lipoma (11/19/2024), Cholecystectomy (2023), Amputation of thumb, Arthroplasty of right knee, Cataract, Closed fracture of ankle, Excision of lesion of skin, Lysis of adhesions, Repair of incisional hernia, Stomach. Discharge Vitals Temperature (Temporal Artery) 36.4 ???C Heart Rate (Peripheral) 62 Respiratory Rate 18 Blood Pressure 120/82 Height 158.0 cm Height 62 in Weight 82.2 kg Weight 181.22 lb BMI 32.93 What to do next Scheduled Follow-Up Appointments Sunday 2:40 PM EDT With: Alfonso DUDLEY MD Where: [facility] General Surgery [address], [address], [place] [address]- Sunday2025 9:30 AM EST With: Where: [facility] Medicine [address] [address]- Sunday2025 10:20 AM EST With: Camila Max Where: [address] [address]- Medications What How Much When [...] signed up for this yet, please contact [employer] at [phone] to get signed up today. Language Information Language assistance services are available as needed. Ulisses Gilliam [facility] Family Medicine Office/Clini c Noteon 11-21-2024 Family Medicine Office/Clinic Note Family Medicine Office/Clinic Note Chief Complaint The patient presents with urinary symptoms and concerns about a ganglion cyst. HPI Staff Micheal is a 84 year old female presenting with Onset: started 2-3 weeks ago Symptoms: cloudy urine, hematuria last time seen blood in urine was a couple weeks ago OTC used: drinking cranberry juice Last UTI: years ago Hx of kidney stones: NA UA in office documented in chart History of Present Illness 84-year-old female patient of DEDE Wren presenting with urinary symptoms and a ganglion cyst. The urinary symptoms include cloudy urine, occasional dark urine, and increased frequency due to high water intake. There is no associated burning, itching, abdominal pain, or back pain. A urine dipstick test showed leukocytes, but nitrites were negative, leading to a suspicion of a urinary tract infection. The patient also reports a ganglion cyst, which was previously evaluated and associated with nerve issues. The cyst is described as hard, and the patient has sought massage therapy for relief. Review of Systems PHQ Score Initial Depression Screen Score: 0 SCORE - Genitourinary: Reports cloudy urine, occasional dark urine, increased frequency due to high water intake. Denies burning, itching, abdominal pain, or back pain. Physical Exam Vitals & Measurements T: 36.4 ???C(Temporal Artery) HR: 62(Peripheral) RR: 18 BP: 120/82 SpO2: 98% HT: 158.0 cm HT: 62 in WT: 181.22 lb WT: 82.2 kg BMI: 32.93 General: alert, no acute distress Skin: warm, dry Cardiovascular: regular rate and rhythm, normal peripheral perfusion Respiratory: Lungs CTA, respirations non labored Back: No tenderness, Normal ROM, Normal alignment. Extremities: no deformity, no trauma Assessment/Plan 1. UTI symptoms (R39.9: Unspecified symptoms and signs involving the genitourinary system) - Plan to send urine sample for further analysis to confirm infection. - Awaiting culture report - Advise patient to continue high fluid intake to aid in kidney flushing. Ordered: Urine Culture Urnls Dip Stick Auto w/o Microscopy POC 97562 2. Ganglion (M67.40: Ganglion, unspecified site) - Monitor the cyst for changes in size or symptoms. - Consider referral to a specialist if symptoms persist or worsen. Follow-up No qualifying data available Patient Education Ganglion Cyst Problem List/Past Medical History Ongoing BMI 33.0-33.9,adult Excessive sweating Flank pain Ganglion cyst of dorsum of right wrist Hair thinning Hypercholesteremia Hypertension Hyperthyroidism Lipoma of arm Lipoma of back Lipoma of upper arm Mass of soft tissue of upper arm Nonsmoker Obesity (BMI 30.0-34.9) Obesity due to excess calories S/P cholecystectomy Skin texture changes Wart of hand Historical No qualifying data Procedure/Surgical History Excision of lipoma (11/19/2024), Cholecystectomy (2023), Amputation of thumb, Arthroplasty of [...] 50,000 intl units (1.25 mg) oral capsule, 6[address] International_Unit= 1 cap(s), Oral, qWeek, 4 refills Allergies No Known Allergies Social History Alcohol - Denies Alcohol Use, 04/04/2023 Past. Beer, Liquor. Daily., 10/14/2024 Substance Abuse Never, 04/10/2024 Tobacco - Denies Tobacco Use, 04/04/2023 Never (less than 100 in lifetime) Tobacco Use:. Never Smokeless Tobacco Use:. Household tobacco concerns: No. Yes, 11/21/2024 Family History CABG - Coronary artery bypass graft: Negative: Mother, Father, Sister and Brother. Diabetes mellitus type 2: Sister. Open heart surgery: Mother. Immunizations Vaccine Date Status Comments influenza virus vaccine, inactivated - Not Given Parent Or Guardian Refuses diphtheria/pertussis, acel/tetanus adult 08/07/2013 Recorded tetanus-diphtheria toxoids 03/19/2004 Recorded Lab Results Ambulatory Point of Care Results Bilirubin Urine Dipstick: Negative (11/21/24 09:09:00) Blood Urine Dipstick: Trace-intact (11/21/24 09:09:00) Glucose Urine Dipstick: Negative (11/21/24 09:09:00) Ketones Urine Dipstick: Negative (11/21/24 09:09:00) Leukocytes Urine Dipstick: 1+ Small (11/21/24 09:09:00) Nitrite Urine Dipstick: Negative (11/21/24 09:09:00) Protein Urine Dipstick: Negative (11/21/24 09:09:00) Specific Yale Urine Dipstick: 1.010 (11/21/24 09:09:00) Urine Appearance Urine Dipstick: Clear (11/21/24 09:09:00) Urine Color Urine Dipstick: Yellow (11/21/24 09:09:00) Urobilinogen Urine Dipstick: Normal 0.2-1 EU/dl (11/21/24 09:09:00) pH Urine Dipstick: 6 (11/21/24 09:09:00) Normal [facility] Comment on above: Result Comment: Elec tronically Signed By: JIMMIE AGUAYO, KIA De La Vega\delma\Date and Time Signed: 11/21/24 09:12 EDT Pathology Sendout Teston Pathology Send Out. See Report Normal [facility] Comment on above: Order Comment: left inf. thyroid fnb 11/13/24@1429 8 slides 1 cytolyte 1 afirma Performed By: #### 2 [id number] #### [facility] (DEFAULT) [address] [place] [address] Kalpesh 11-19-2024 L - -------- Specimen: [id number] Received: 11/19/24 Status: LESVIA Wynne Num: [id number] Spec Type: Surgical Subm Dr: Alfonso Dudley MD FACS Tissues: A Lipoma (RIGHT UPPER ARM LESION) Procedures: GEORGIANA Gross/Rashaun L3 -------- Age/ Patient Sex Location Account Attending Physician -------- Micheal Brice 84/F [facility] [id number] Alfonso Dudley MD FACS -------- SPEC NUM: [id number] RECD: 11/19/24 STATUS: LESVIA WYNNE NUM: [id number] JACQUE: 11/19/24 [facility] DR: Alfonso Dudley MD FACS ENTERED: 11/19/[address] [facility] [address]: Pillo Giles SPEC TYPE: Surgical DEPT: LISET ANTONY ENTERED BY: [id number] RECV BY: [id number] ORDERED: HE, Gross/Micro L3 ORDERED: HE, Gross/Micro L3 Pathological Diagnosis Right upper arm, lesion, excision: - Lipoma Clinical Information Right upper arm lipoma Gross Description Received in formalin labeled with the patients name, date of , and right upper arm lesion are ragged, shaggy fragments of partially encapsulated adipose tissue, 4.3 x 2.8 x 1.4 cm. The capsular surfaces are castillo-pink, membranous, smooth and glistening with focal adhesions. Serial sections reveal yellow-castillo, glistening, and uniform cut surfaces. Bag Bundler sections are submitted in a single cassette. (1, , [id number] A) Microscopic Description Microscopic examination is performed. -------- Specimen: [id number] Received: 11/19/24 Status: MARLONMain Wynne Num: [id number] Spec Type: Surgical Subm Dr: Alfonso Dudley MD FACS Tissues: A Lipoma (RIGHT UPPER ARM LESION) Procedures: HE, Gross/Micro L3 -------- Patient: Micheal Brice [id number] (Continued) -------- Specimen: [id number] Received: 11/19/24 (Continued) Signed (signature on file) Madhav Francisco MD 11/20/24 0910 -------- Specimen: [id number] Received: 11/19/24 Status: MARLONMain Wynne Num: [id number] Spec Type: Surgical Subm Dr: Alfonso Dudley MD FACS Tissues: A Lipoma (RIGHT UPPER ARM LESION) Procedures: Santiago STONER/Rashaun L3 -------- Patient: Adrianna Briceline Jason [id number] (Continued) -------- Specimen: [id number] Received: 11/19/24 (Continued) CPT Codes 59114 -------- -------- Specimen: [id number] Received: 11/19/24 Status: LESVIA Wynne Num: [id number] Spec Type: Surgical Subm Dr: Alfonso Dudley MD FACS Tissues: A Lipoma (RIGHT UPPER ARM LESION) Procedures: Santiago STONER/Rashaun L3 -------- Patient: Micheal Brice [id number] (Continued) -------- Signed (signature on file) Madhav Francisco MD 11/20/2410 Normal [facility] Consent Formson 11-14-2024 Consent Forms [id number] .[id number] [facility] 11-13-2024 L - -------- Specimen: [id number] Received: 11/18/24 Status: LESVIA Wynne Num: [id number] Spec Type: Cytology Subm Dr: CUAUHTEMOC JACOBO MD Tissues: A FNA SLIDES NOPATH (LEFT INFERIOR THYROID) Procedures: Cyto Int and Re, PAPSTN/9 -------- Age/ Patient Sex Location Account Attending Physician -------- Micheal Brice 84/F [facility] [id number] CUAUHTEMOC JACOBO MD -------- SPEC NUM: [id number] RECD: 11/18/24 STATUS: LESVIA WYNNE NUM: [id number] JACQUE: 11/13/[address]: CUAUHTEMOC JACOBO MD ENTERED: 11/18/[address] [facility] [address]: AshokLab SPEC TYPE: Cytology DEPT: MAG GUY ENTERED BY: [id number] RECV BY: [id number] ORDERED: Cyto Int and Re, PAPSTN/9 ORDERED: Cyto Int and Re, PAPSTN/9 Pathological Diagnosis Left inferior thyroid nodule, fine-needle aspiration (ThinPrep and Smear Slides): - Inadequate for evaluation due to acellular specimen - Scant watery colloid in a background of blood, nondiagnostic (Vichy Category: I). Comment: Recommend clinical and radiologic correlation and repeat left thyroid FNA if clinically indicated. Gross Description Received is 30 ml clear colorless fixed fluid for cytology said to have been obtained as Left Inferior Thyroid. ThinPrep preparations are prepared for microscopic examination. Also received are 8 fixed smeared slides and a Veracyte vial stored at -20 for microscopic examination. (/in) Microscopic Description Microscopic examination is performed. -------- Specimen: [id number] Received: 11/18/24 Status: LESVIA Rob Num: [id number] Spec Type: Cytology Subm Dr: CUAUHTEMOC JACOBO MD Tissues: A FNA SLIDES NOPATH (LEFT INFERIOR THYROID) Procedures: Cyto Int and Re, PAPSTN/9 -------- Patient: Micheal Brice [id number] (Continued) -------- Specimen: [id number] Received: 11/18/24 (Continued) Signed (signature on file) Madhav Francisco MD 11/19/24 1241 -------- Specimen: [id number] Received: 11/18/24 Status: LESVIA Wynne Num: [id number] Spec Type: Cytology Subm Dr: CUAUHTEMOC JACOBO MD Tissues: A FNA SLIDES NOPATH (LEFT INFERIOR THYROID) Procedures: Cyto Int and Re, PAPSTN/9 -------- Patient: Micheal Brice [id number] (Continued) -------- Specimen: [id number] Received: 11/18/24 (Continued) CPT Codes 15641, 87785 -------- -------- Specimen: [id number] Received: 11/18/24 Status: LESVIA Wynne Num: [id number] Spec Type: Cytology Subm Dr: CUAUHTEMOC JACOBO MD Tissues: A FNA SLIDES NOPATH (LEFT INFERIOR THYROID) Procedures: Cyto Int and Re, PAPSTN/9 -------- Patient: Micheal Brice [id number] (Continued) -------- Signed (signature on file) Madhav Francisco MD 11/19/24 1241 Normal [facility] US Fine Needle Asp/Biopsy, F irst Lesionon 11-13-2024 US Fine Needle Asp/Biopsy, First Lesion EXAMINATION: US Fine Needle Asp/Biopsy, First Lesion HISTORY: Nontoxic multinodular goiter COMPARISON: No relevant comparison available. TECHNIQUE: After obtaining informed consent, ultrasound-guided fine needle aspiration was performed in the usual sterile manner. FINDINGS: IMAGING: Ultrasound. BIOPSY NEEDLE: 21-gauge 2 inch LOCATION: 3.5 cm left thyroid nodule SPECIMEN TYPE: 4 fine-needle aspirates LOCAL ANESTHETIC: 2 cc 1% buffered lidocaine COMPLICATIONS: None. LABORATORY: Prepared slide smears and washings for cell block evaluation. Sent for molecular analysis OTHER: Negative. PATHOLOGY: Pending. An addendum will be added when results are available. IMPRESSION: 1. Uneventful ultrasound guided fine needle aspiration (FNA). 2. Pathology results are pending. Final Dictated by: Willy Frost MD Dictated DT/TM: 11/13/24 3:14 Signed (Electronic Signature): Willy Frost MD 11/13/24 3:14 pm Technologist: [facility] CT Abdomen/Pelvis w/o Willie amaral 11-12-2024 CT Abdomen/Pelvis w/o Contrast Exam Date/Time: [...] Haque MD Transcribed by: BRITTANY Technologist: LATHA Gilliam [facility] Provider Orderson 11-03-2024 Provider Orders [id number] #[id number] Normal [facility] US Retroperitoneal Completeo n 10-29-2024 US [...] MD Transcribed by: BRITTANY Technologist: JACQUELINE Gtz [facility] Reminderson 10-28-2024 Reminders Reminders From: Camila Max To: [facility] [...] call back for below results. completed. Normal [facility] C Urineon 10-24-2024 Bacteria identified Cx Nom (U) Microbiology PROCEDURE: Urine Culture [R1] SOURCE: U Random BODY SITE: COLLECTED DATE/TIME: 10/22/2024 09:17 EDT RECEIVED DATE/TIME: 10/22/2024 17:13 EDT START DATE/TIME: 10/22/2024 17:13 EDT FREE TEXT SOURCE: KIA SAMUEL CNP, CNP, SHELLY A FINAL REPORTS Final Report [] Verified Date/Time: 10/24/2024 08:24 EDT <10,000 cfu/ml Mixed skin contaminants Performing Locations R1: This test was performed at: [facility], [address] [place] [address], [address] , , [facility] Comment on above: Performed By: #### 2 [id number] #### [facility] [address] [place] [address] Ambulatory Visit Summaryon 0 10-22-2024 Ambulatory Visit [...] Appointments Sunday2025 9:30 AM EST With: Where: [facility] [address]- Sunday2025 10:20 AM EST With: Camila Max Where: [address] [address]- Medications What How Much When Instructions Unchanged [...] signed up for this yet, please contact [employer] at [phone] to get signed up today. Language Information Language assistance services are available as needed. Normal [facility] Medicine Office/Clini c Noteon 10-22-2024 Family Medicine [...] Urnls Dip Stick Auto w/o Microscopy POC 76592 US Retroperitoneal Complete 2. Thyroid nodule (E04.1: Nontoxic single thyroid nodule) - Referral to an ear, nose, and throat specialist for evaluation and potential biopsy of thyroid nodules. - Discussed US of thyroid with patient in detail - Encouraged to keep appoint with ENT as scheduled on Monday, October 28, 2024 3. Weight loss (R63.4: [...] 50,000 intl units (1.25 mg) oral capsule, [address] International_Unit= 1 cap(s), Oral, qWeek, 4 ref (more content not included)... Normal [facility] Comment on above: Result Comment: Elec tronically Signed By: KIA SAMUEL CNP\Date and Time Signed: 10/22/24 10:03 EDT Ambulatory [...] Appointments Sunday2025 9:30 AM EST With: Where: [address] [address]- Sunday2025 10:20 AM EST With: Camila Max Where: [address] [address]- Medications What How Much When [...] signed up for this yet, please contact [employer] at [phone] to get signed up today. Language Information Language assistance services are available as needed. Normal [facility] C Urineon 10-16-2024 Bacteria identified Cx Nom (U) Microbiology PROCEDURE: Urine Culture [R1] SOURCE: U CleanCatch BODY SITE: COLLECTED DATE/TIME: 10/14/2024 09:30 EDT RECEIVED DATE/TIME: 10/14/2024 16:50 EDT START DATE/TIME: 10/14/2024 16:50 EDT FREE TEXT SOURCE: Camila Max Jodi L FINAL REPORTS Final Report [] Verified Date/Time: 10/16/2024 11:02 EDT <10,000 cfu/ml Mixed skin contaminants Performing Locations R1: This test was performed at: [facility], [address] [place] [address], [address] , [place], [facility] Comment on above: Performed By: #### 2 [id number] #### [facility] [address] [place] [address] T3 Freeon 10-16-2024 Free T3 [Mass/Vol] 4.3 pg/mL Invalid Interpretation Code 2.0-4.4 [facility] Comment on above: Result Comment: Perf ormed at: CB [facility] [address] [place], [place] [id number] PhD Mark Salcedo Performed By: #### 2 [id number] #### Gilliam [facility] [address] [place] [address] Reminderson 10-15-2024 Reminders Reminders From: Camila Max To: B [...] Hydroxy 42.9 ng/mL (30.0 - 100.0) Normal [facility] Ambulatory Visit Summaryon 0 10-14-2024 Ambulatory Visit [...] Appointments Sunday2025 9:30 AM EST With: Where: [address] [id number]- Sunday2025 10:20 AM EST With: Camila Max Where: [address] [id number]- Medications What How Much When Instructions Unchanged [...] signed up for this yet, please contact [employer] at [phone] to get signed up today. Language Information Language assistance services are available as needed. Normal [facility] CMPon 10-14-2024 Albumin [Mass/Vol] 4.2 g/dL Normal 3.3-5.0 [facility] Comment on above: Performed By: #### 2 [id number] #### [facility] [address] [place] [address] Albumin/Globulin [Mass ratio] 1.8 {ratio} Normal 1.1-2.2 [facility] Comment on above: Performed By: #### 2 [id number] #### [facility] [address] [place] [address] Alk Phos 87 Int._Unit/L Normal 21-98 [facility] Comment on above: Performed By: #### 2 [id number] #### [facility] [address] [place] [address] ALT 23 Int._Unit/L Normal 6-46 [facility] Comment on above: Performed By: #### 2 129536 #### [facility] [address] [place] [address] Anion gap [Moles/Vol] 9 mmol/L Normal 6-16 [facility] Comment on above: Performed By: #### 2 [id number] #### [facility] [address] [place] [address] AST 26 Int._Unit/L Normal 5-43 [facility] Comment on above: Performed By: #### 2 769454 #### [facility] [address] [place] [address] Bili Total 0.7 mg/dL Normal 0.0-1.1 [facility] Comment on above: Performed By: #### 2 [id number] #### [facility] [address] [place] [address] BUN/Creat Ratio 27 No Units High 10-20 [facility] Comment on above: Performed By: #### 2 [id number] #### [facility] [address] [place] [address] Calcium [Mass/Vol] 9.8 mg/dL Normal 8.9-11.1 [facility] Comment on above: Performed By: #### 2 064286 #### [facility] [address] [place] [address] Chloride [Moles/Vol] 106 mmol/L Normal 101-111 [facility] Comment on above: Performed By: #### 2 [id number] #### [facility] [address] [place] [address] CO2 [Moles/Vol] 28 mmol/L Normal 21-[address] [facility] Comment on above: Performed By: #### 2 [id number] #### [facility] [address] [place] [address] Creatinine [Mass/Vol] 0.6 mg/dL Normal 0.5-1.3 [facility] Comment on above: Performed By: #### 2 739254 #### [facility] [address] [place] [address] Globulin (S) [Mass/Vol] 2.3 g/dL Normal 1.4-4.0 [facility] Comment on above: Performed By: #### 2 [id number] #### [facility] [address] [place] [address] Glucose [Mass/Vol] 92 mg/dL Normal 55-199 [facility] Comment on above: Performed By: #### 2 687586 #### [facility] [address] [place] [address] Potassium [Moles/Vol] 4.2 mmol/L Normal 3.5-5.3 [facility] Comment on above: Performed By: #### 2 [id number] #### [facility] [address] [place] [address] Protein [Mass/Vol] 6.5 g/dL Normal 6.0-7.8 [facility] Comment on above: Performed By: #### 2 011258 #### [facility] [address] [place] [address] Sodium [Moles/Vol] 139 mmol/L Normal 135-145 [facility] Comment on above: Performed By: #### 2 [id number] #### [facility] [address] [place] [address] Urea nitrogen [Mass/Vol] 16 mg/dL Normal 5-21 [facility] Comment on above: Performed By: #### 2 [id number] #### Gilliam [facility] [address] [place] [address] Family Medicine Office/Clini c Noteon 10-14-2024 Family [...] needed Ordered: Comprehensive Metabolic Panel Free T4 [facility] Internal Ambulatory Referral T3 Free Thyroid Stimulating Hormone Vitamin D 25 Hydroxy 2. Hair thinning (L65.9: Nonscarring hair loss, unspecified) will check thyroid levels today Ordered: Comprehensive Metabolic Panel Free T4 [facility] Internal Ambulatory Referral T3 Free Thyroid Stimulating Hormone Vitamin D 25 Hydroxy 3. Flank pain (R10.9: Unspecified abdominal pain) a few weeks ago she was having right flank pain. u/a in office negative for blood. Ordered: [facility] Internal Ambulatory Referral 4. Lipoma of arm [...] have a chip in her arm. Ordered: [facility] Internal Ambulatory Referral 5. Non-smoker (Z78.9: Other specified health status) continue not smoking Ordered: Body Mass Index (BMI) documented 3008F Comprehensive Metabolic Panel Current tobacco non-user 1036F Depression Screening Negative 3352F Free T4 [facility] Internal Ambulatory Referral Influenza immunization status assessed [...] Acidophilus Pro (more content not included)... Normal [facility] Comment on above: Result Comment: Elec tronically Signed By: Camila Max\.br\Date and Time Signed: 10/14/24 09:31 EDT Free T4on 10-14-2024 Free T4 [Mass/Vol] 0.87 ng/dL Normal 0.58-1.64 [facility] Comment on above: Performed By: #### 2 [id number] #### [facility] [address] [place] [address] TSHon 10-14-2024 TSH Qn 0.08 m[IU]/L Low 0.34-5.60 [facility] Comment on above: Performed By: #### 2 [id number] #### [facility] [address] [place] [address] Vitamin D 25 Hydroxyon 10-14 Vitamin D 25 Hydroxy 42.9 ng/mL Normal 30.0-100.0 [facility] Comment on above: Performed By: #### 5 [id number] #### [facility] [address] [place] [address] eGFRon 10-14-2024 eGFR 89 mL/min/1.73 m2 Normal >=59 [facility] Comment on above: Performed By: #### 1 [id number] #### [facility] [address] [place] [address] LG Jt Injection/Arthrocentes is: L kneeon 06-13-2024 Luis Felipe Lopes M D 06/13/2024 10:56 AM LG Jt Injection/Arthrocente sis: L knee Performed by: Luis Felipe Lopes MD Authorized by: Luis Felipe Lopes MD CPT 65074 - Large Joint Arthrocentesis: Consent given by: [...] the procedure well with no immediate complications [facility] XR KNEES STANDING BILATERAL AP/ LAT EACHon [...] on SunJun 13, 2024 10:52:24 AM EDT Normal [facility] Comment on above: Order Comment: Injur [...] on SunJun 13, 2024 10:52:43 AM EDT Normal [facility] Comment on above: Order Comment: Injur [...] disorders) u/s right upper arm faxed to [facility]. will refer to general surgery if [...] toxoids 03/19/2004 Recorded Normal [facility] Comment on above: Result Comment: [...] Appointments Sunday2025 9:30 AM EST With: Where: [address] [address]- Sunday2025 10:20 AM EST With: Camila Max Where: [address] [address]- Medications What How Much When Instructions Unchanged [...] content not included)... Normal [facility] CHEMISTRYOrdered By: SYSTEM SYSTEM on 04-10-2024 Albumin [...] 4.2 g/dL Normal 3.3-5.0 [facility] Comment on above: Performed By: #### 2 [id number] #### [facility] [address] [place] [address] Albumin/Globulin (S) [Mass conc ratio] 2.0 Normal 1.1-2.2 [facility] Comment on above: Performed By: #### 2 [id number] #### [facility] [address] [place] [address] ALP [Catalytic activity/Vol] 86 Int._Unit/L Normal 21-98 [facility] Comment on above: Performed By: #### 2 [id number] #### [facility] [address] [place] [address] ALT No additional P-5'-P [Catalytic activity/Vol] 15 Int._Unit/L Normal 6-46 [facility] Comment on above: Performed By: #### 2 [id number] #### [facility] [address] [place] [address] Anion gap [Moles/Vol] 10 mmol/L Normal 6-16 [facility] Comment on above: Performed By: #### 2 750794 #### [facility] [address] [place] [address] AST [Catalytic activity/Vol] 18 Int._Unit/L Normal 5-43 [facility] Comment on above: Performed By: #### 2 [id number] #### [facility] [address] [place] [address] Bilirubin [Mass/Vol] 0.6 mg/dL Normal 0.0-1.1 [facility] Comment on above: Performed By: #### 2 [id number] #### [facility] [address] [place] [address] Calcium [Mass/Vol] 9.6 mg/dL Normal 8.9-11.1 [facility] Comment on above: Performed By: #### 2 514160 #### [facility] [address] [place] [address] Chloride [Moles/Vol] 104 mmol/L Normal 101-111 [facility] Comment on above: Performed By: #### 2 [id number] #### [facility] [address] [place] [address] CO2 [Moles/Vol] 28 mmol/L Normal 21-[address] [facility] Comment on above: Performed By: #### 2 [id number] #### [facility] [address] [place] [address] Creatinine [Mass/Vol] 0.7 mg/dL Normal 0.5-1.3 [facility] Comment on above: Performed By: #### 2 762786 #### [facility] [address] [place] [address] Globulin (S) [Mass/Vol] 2.1 g/dL Normal 1.4-4.0 [facility] Comment on above: Performed By: #### 2 830600 #### [facility] [address] [place] [address] Glucose [Mass/Vol] 95 mg/dL Normal 55-199 [facility] Comment on above: Performed By: #### 2 821686 #### [facility] [address] [place] [address] Potassium [Moles/Vol] 4.4 mmol/L Normal 3.5-5.3 [facility] Comment on above: Performed By: #### 2 266346 #### [facility] [address] [place] [address] Protein [Mass/Vol] 6.3 g/dL Normal 6.0-7.8 [facility] Comment on above: Performed By: #### 2 121512 #### [facility] [address] [place] [address] Sodium [Moles/Vol] 138 mmol/L Normal 135-145 [facility] Comment on above: Performed By: #### 2 [id number] #### [facility] [address] [facility] [place] [address] Urea nitrogen [Mass/Vol] 20 mg/dL Normal 5-21 [facility] Comment on above: Performed By: #### 2 068869 #### [facility] [address] [place] [address] Urea nitrogen/Creatinine [Mass ratio] 29 No Units High 10-20 [facility] Comment on above: Performed By: #### 2 [id number] #### [facility] [address] [address] Family Medicine Office/Clini c Noteon 04-10-2024 Family [...] of clutter to prevent tripping and/or falling. [place] Advance Directives reviewed. Documents remain at home [...] content not included)... Normal [facility] Comment on above: Result Comment: [...] E&M of Est. Patient Low 20-29 Min 09542 Lipid Panel Thyroid Stimulating Hormone 2. S/P [...] E&M of Est. Patient Low 20-29 Min 77938 Lipid Panel Thyroid Stimulating Hormone 3. Hypercholesteremia (E78.00: Pure hypercholesterolemia, unspecified) lipid panel drawn in office today Ordered: Comprehensive Metabolic Panel E&M of Est. Patient Low 20-29 Min 02018 Lipid Panel Thyroid Stimulating Hormone 4. BMI 35.0-35.9,adult (Z68.35: Body mass index [BMI] 35.0-35.9, adult) BMI education given Ordered: Comprehensive Metabolic Panel E&M of Est. Patient Low 20-29 Min 14760 Lipid Panel Thyroid Stimulating Hormone 5. Non-smoker (Z78.9: Other specified health status) continue not smoking Ordered: Comprehensive Metabolic Panel E&M of Est. Patient Low 20-29 Min 46143 Lipid Panel Thyroid Stimulating Hormone Follow-up No [...] toxoids 03/19/2004 Recorded Normal [facility] Comment on above: Result Comment: Elec tronically Signed By: Camila Maxbr\Date and Time Signed: 04/10/24 10:38 EST Lipid Panelon 04-10-2024 Cholesterol [Mass/Vol] 221 mg/dL High 120-200 [facility] Comment on above: Performed By: #### 2 [id number] #### [facility] [address] [place] [address] Cholesterol in HDL [Mass/Vol] 56 mg/dL Invalid Interpretation Code [facility] Comment on above: Result Comment: '>= 60 LOW RISK' '<= 40 HIGH RISK' Performed By: #### 2 [id number] #### [facility] [address] [place] [address] Cholesterol in LDL [Mass/Vol] 159 mg/dL High <=129 [facility] Comment on above: Performed By: #### 2 [id number] #### [facility] [address] [place] [address] Cholesterol in VLDL [Mass/Vol] 14 mg/dL Normal 7-40 [facility] Comment on above: Performed By: #### 2 465130 #### [facility] [address] [place] [address] Triglyceride [Mass/Vol] 69 mg/dL Normal <=149 [facility] Comment on above: Performed By: #### 2 103182 #### [facility] [address] [place] [address] TSHon 04-10-2024 TSH Qn 0.50 m[IU]/L Normal 0.34-5.60 [facility] Comment on above: Performed By: #### 2 197959 #### [facility] [address] [place] [address] eGFRon 04-10-2024 eGFR 86 mL/min/1.73 m2 Normal >=59 [facility] Comment on above: Performed By: #### 1 [id number] #### [facility] [address] [place] [address] C DIFFICILE BY PCRon 024 C. difficile toxin genes KELVIN+probe Ql (Stl) TOXIGENIC C DIFF Positive (qualifier value) 027 NAP1 Negative (qualifier value) Normal PRNEG [facility] Comment on above: Performed By: #### 5 [id number] #### [facility] ([id number]) [address] [facility], [address] [place] [address] Cult,Aerobe/Anaerobeon 08-05 Cult,Aerobe/Anaerobe Specimen Descriptio n .ABDOMEN Direct Exam MANY NEUTROPHILS MODERATE GRAM POSITIVE COCCI IN PAIRS MODERATE GRAM NEGATIVE RODS Culture BACTEROIDES THETAIOTAOMICRON MODERATE GROWTH BETA LACTAMASE POSITIVE Identificati on by MALDI-TOF BACTEROIDES STERCORIS MODERATE GROWTH BETA LACTAMASE POSITIVE Identification by MALDI-TOF NO AEROBIC ORGANISMS ISOLATED Report Status FINAL 08/06/2023 Abnormal [facility] Comment on above: Performed By: #### A ANC #### [facility] [address] [place], [place] [id number] Bilingual Teacher Assistant: Salinas Escalante MD [facility] [address] [place] [address] Bilingual Teacher Assistant: Willy Henson MD CBC auto differentialon 07-17 Basophils (Bld) [#/Vol] 0.12 10*3/uL [facility] Basophils/100 WBC (Bld) 1 % 0 - 2 % [facility] Eosinophils (Bld) [#/Vol] 0.00 10*3/uL [employer] [facility] Eosinophils/100 WBC (Bld) 0 % Low 1 - 4 % [employer] [facility] Erythrocyte distribution width (RBC) [Ratio] 12.5 % 11.8 - 14.4 % [employer] [facility] Hematocrit (Bld) [Volume fraction] 35.0 % Low 36.3 - 47.1 % [employer] [facility] Hemoglobin (Bld) [Mass/Vol] 10.9 g/dL Low 11.9 - 15.1 g/dL [facility] Immature granulocytes (Bld) [#/Vol] 0.12 10*3/uL [facility] Immature granulocytes/100 WBC (Bld) 1 % High 0 [facility] Interpretation and review of laboratory results Abnormal [facility] Lymphocytes/100 WBC (Bld) 74 % High 24 - 43 % [facility] Lymphocytes/100 WBC (Bld) 8.73 % High [facility] MCH (RBC) [Entitic mass] 28.6 pg 25.2 - 33.5 pg [facility] MCHC (RBC) [Mass/Vol] 31.1 g/dL 28.4 - 34.8 g/dL [facility] MCV (RBC) [Entitic vol] 91.9 fL 82.6 - 102.9 fL [facility] Monocytes/100 WBC (Bld) 4 % 3 - 12 % [facility] Monocytes/100 WBC (Bld) 0.47 % [facility] Morphology Ki (Bld) [Interp] Normal [facility] Neutrophils/100 WBC (Bld) 20 % Low 36 - 65 % [facility] Nucleated RBC/100 WBC (Bld) [Ratio] 0.0 % 0.0 per 100 WBC [facility] Platelet mean volume (Bld) [Entitic vol] 10.8 fL 8.1 - 13.5 fL [facility] Platelets (Bld) [#/Vol] 240 10*3/uL [facility] RBC (Bld) [#/Vol] 3.81 10*6/uL Low 3.95 - 5.1 1 m/uL [facility] Segmented neutrophils/100 WBC (Bld) 2.36 % [facility] WBC other (Bld) [#/Vol] 11.8 High [facility] CBC with Diffon 08-03-2023 Abs. Basophil 0.12 k/uL Normal 0.0-0.2 [facility] Comment on above: Performed By: #### C DP, CMPX #### [facility] [address] [place] [address] Dr[address] [place], [place] [address] Bilingual Teacher Assistant: Willy Henson MD Abs.Imm.Granulocyte 0.12 k/uL Normal 0.00-0.30 [facility] Comment on above: Performed By: #### C DP, CMPX #### [address] [place] [address] Bilingual Teacher Assistant: Willy Henson MD Abs.Neutrophil (Seg) 2.36 k/uL Normal 1.50-8.10 [facility] Comment on above: Performed By: #### C DP, CMPX #### [address] [place] [address] Bilingual Teacher Assistant: Willy Henson MD Basophils/100 WBC (Bld) 1 % Normal 0-2 [facility] Comment on above: Performed By: #### C DP, CMPX #### [address] [place] [address] Bilingual Teacher Assistant: Willy Henson MD Eosinophils (Bld) [#/Vol] 0.00 10*3/uL Normal 0.00-0.44 [facility] Comment on above: Performed By: #### C DP, CMPX #### [address] [place] [address] Bilingual Teacher Assistant: Willy Henson MD Eosinophils/100 WBC (Bld) 0 % Low 1-4 [facility] Comment on above: Performed By: #### C DP, CMPX #### [address] [place], [facility] Bilingual Teacher Assistant: Willy Henson MD Immature granulocytes/100 WBC (Bld) 1 % High 0 [facility] Comment on above: Performed By: #### C DP, CMPX #### [address] [place] [id number] Bilingual Teacher Assistant: Willy Henson MD Lymphocytes (Bld) [#/Vol] 8.73 10*3/uL High 1.10-3.70 [facility] Comment on above: Performed By: #### C DP, CMPX #### [facility] [address] [place] [address] Bilingual Teacher Assistant: Willy Henson MD Lymphocytes/100 WBC (Bld) 74 % High 24-43 [facility] Comment on above: Performed By: #### C DP, CMPX #### [facility] [address] [place], [place] [address] Bilingual Teacher Assistant: Willy Henson MD Monocytes (Bld) [#/Vol] 0.47 10*3/uL Normal 0.10-1.20 [facility] Comment on above: Performed By: #### C DP, CMPX #### [facility] [address] [place], [place] [address] Bilingual Teacher Assistant: Willy Henson MD Monocytes/100 WBC (Bld) 4 % Normal 3-12 [facility] Comment on above: Performed By: #### C DP, CMPX #### [facility] [address] [place], [place] [address] Bilingual Teacher Assistant: Willy Henson MD Morphology Ki (Bld) [Interp] Normal Normal [facility] Comment on above: Performed By: #### C DP, CMPX #### [facility] [address] [place], [place] [address] Bilingual Teacher Assistant: Willy Henson MD Neutrophil (Seg) 20 % Low 36-65 [facility] Comment on above: Performed By: #### C DP, CMPX #### [facility] [address] [place], [facility] Bilingual Teacher Assistant: Willy Henson MD Erythrocyte distribution width (RBC) [Ratio] 12.5 % Normal 11.8-14.4 [facility] Comment on above: Performed By: #### C DP, CMPX #### [address] [place], [place] [address]83 Bilingual Teacher Assistant: Willy Henson MD Hematocrit (Bld) [Volume fraction] 35.0 % Low 36.3-47.1 [facility] Comment on above: Performed By: #### C DP, CMPX #### [address] [place], [facility] Bilingual Teacher Assistant: Willy Henson MD Hemoglobin (Bld) [Mass/Vol] 10.9 g/dL Low 11.9-15.1 [facility] Comment on above: Performed By: #### C DP, CMPX #### [address] [place] [id number] Bilingual Teacher Assistant: Willy Henson MD MCH (RBC) [Entitic mass] 28.6 pg Normal 25.2-33.5 [facility] Comment on above: Performed By: #### C DP, CMPX #### [address] [place] [id number] Bilingual Teacher Assistant: Willy Henson MD MCHC (RBC) [Mass/Vol] 31.1 g/dL Normal 28.4-34.8 [facility] Comment on above: Performed By: #### C DP, CMPX #### [address] [place] [id number] Bilingual Teacher Assistant: Willy Henson MD MCV (RBC) [Entitic vol] 91.9 fL Normal 82.6-102.9 [facility] Comment on above: Performed By: #### C DP, CMPX #### [address] [place] [address] Bilingual Teacher Assistant: Willy Henson MD NRBC Automated 0.0 per 100 WBC Normal 0.0 [facility] Comment on above: Performed By: #### C DP, CMPX #### [address] [place] [id number] Bilingual Teacher Assistant: Willy Henson MD Platelet mean volume (Bld) [Entitic vol] 10.8 fL Normal 8.1-13.5 [facility] Comment on above: Performed By: #### C DP, CMPX #### [facility] [address] [place] [address] [place] [address] Bilingual Teacher Assistant: Willy Henson MD Platelets (Bld) [#/Vol] 240 10*3/uL Normal 138-453 [facility] Comment on above: Performed By: #### C DP, CMPX #### [address] [place], [place] 0997383 Bilingual Teacher Assistant: Wilyl Henson MD RBC (Bld) [#/Vol] 3.81 10*6/uL Low 3.95-5.11 [facility] Comment on above: Performed By: #### C DP, CMPX #### [address] [place], [place] 3703183 Bilingual Teacher Assistant: Willy Henson MD WBC (Bld) [#/Vol] 11.8 10*3/uL High 3.5-11.3 [facility] Comment on above: Performed By: #### C DP, CMPX #### [address] [place], [place] [address]83 Bilingual Teacher Assistant: Willy Henson MD Comp Metabolic Pr/rfx MGon 0 5- Albumin [Mass/Vol] 3.4 g/dL Low 3.5-5.2 [facility] Comment on above: Performed By: #### C DP, CMPX #### [address] [place] [address] Bilingual Teacher Assistant: Willy Henson MD Albumin/Glob Ratio 1.4 Normal 1.0-2.5 [facility] Comment on above: Performed By: #### C DP, CMPX #### [facility] [address] [place] [address] Dr[address] [place], [place] 6375983 Bilingual Teacher Assistant: Willy Henson MD Alkaline Phos 105 U/L High 35-104 [facility] Comment on above: Performed By: #### C DP, CMPX #### [facility] [address] [place], [place] [id number] Bilingual Teacher Assistant: Willy Henson MD ALT [Catalytic activity/Vol] 13 U/L Normal 5-33 [facility] Comment on above: Performed By: #### C DP, CMPX #### [facility] [address] [place], [place] [id number] Bilingual Teacher Assistant: Willy Henson MD Anion gap [Moles/Vol] 10 mmol/L Normal 9-17 [facility] Comment on above: Performed By: #### C DP, CMPX #### [facility] [address] [place], [place] 429[address]83 Bilingual Teacher Assistant: Willy Henson MD AST [Catalytic activity/Vol] 15 U/L Normal <32 [facility] Comment on above: Performed By: #### C DP, CMPX #### [facility] [address] [place], [place] 4329383 Bilingual Teacher Assistant: Willy Henson MD Bilirubin [Mass/Vol] 0.2 mg/dL Low 0.3-1.2 [facility] Comment on above: Performed By: #### C DP, CMPX #### [facility] [address] [place], [place] [id number] Bilingual Teacher Assistant: Willy Henson MD BUN/CRE Ratio 21 High 9-20 [facility] Comment on above: Performed By: #### C DP, CMPX #### [facility] [address] [place], [place] 124[address]83 Bilingual Teacher Assistant: Willy Henson MD Calcium [Mass/Vol] 9.1 mg/dL Normal 8.6-10.4 [facility] Comment on above: Performed By: #### C DP, CMPX #### [facility] [address] [place] [address] Bilingual Teacher Assistant: Willy Henson MD Chloride [Moles/Vol] 107 mmol/L Normal 98-107 [facility] Comment on above: Performed By: #### C DP, CMPX #### [facility] [address] [place], [place] [address]83 Bilingual Teacher Assistant: Willy Henson MD CO2 [Moles/Vol] 23 mmol/L Normal 20-31 [facility] Comment on above: Performed By: #### C DP, CMPX #### [facility] [address] [place], [place] 606[address]83 Bilingual Teacher Assistant: Willy Henson MD Creatinine [Mass/Vol] 0.8 mg/dL Normal 0.5-0.9 [facility] Comment on above: Performed By: #### C DP, CMPX #### [facility] [address] [place], [place] [id number] Bilingual Teacher Assistant: Willy Henson MD GFR/1.73 sq M.predicted among non-blacks MDRD (S/P/Bld) [Vol rate/Area] 74 mL/min/{1.73_m2} Normal >60 [facility] Comment on above: Result Comment: These [...] Performed By: #### C DP, CMPX #### [facility] [address] [place] [address] Bilingual Teacher Assistant: Willy Henson MD Glucose [Mass/Vol] 91 mg/dL Normal 70-99 [facility] Comment on above: Performed By: #### C DP, CMPX #### [facility] [address] [place] [address] Bilingual Teacher Assistant: Willy Henson MD Potassium [Moles/Vol] 4.2 mmol/L Normal 3.7-5.3 [facility] Comment on above: Performed By: #### C DP, CMPX #### [facility] [address] [place] [address] Bilingual Teacher Assistant: Willy Henson MD Protein [Mass/Vol] 5.9 g/dL Low 6.4-8.3 [facility] Comment on above: Performed By: #### C DP, CMPX #### [facility] [address] [place] [address] Bilingual Teacher Assistant: Willy Henson MD Sodium [Moles/Vol] 140 mmol/L Normal 135-144 [facility] Comment on above: Performed By: #### C DP, CMPX #### [facility] [address] [place], [place] [id number] Bilingual Teacher Assistant: Willy Henson MD Urea nitrogen [Mass/Vol] 17 mg/dL Normal 8-23 [facility] Comment on above: Performed By: #### C DP, CMPX #### [facility] [address] [place] [address] Bilingual Teacher Assistant: Willy Henson MD Comprehensive Metabolic Pane l w/ Reflex to MGon 08-03-2023 Albumin [Mass/Vol] 3.4 g/dL Low 3.5 - 5.2 g/dL [facility] Albumin/Globulin [Mass ratio] 1.4 {ratio} 1.0 - 2.5 [facility] ALP [Catalytic activity/Vol] 105 U/L High 35 - 104 U/L [facility] ALT [Catalytic activity/Vol] 13 U/L 5 - 33 U/L [facility] Anion gap [Moles/Vol] 10 mmol/L 9 - 17 mmol/L [facility] AST [Catalytic activity/Vol] 15 U/L NINF - 32 U/L [facility] Bilirubin [Mass/Vol] 0.2 mg/dL Low 0.3 - 1 .2 mg/dL [facility] Calcium [Mass/Vol] 9.1 mg/dL 8.6 - 10. 4 mg/dL [facility] Chloride [Moles/Vol] 107 mmol/L 98 - 10 7 mmol/L [facility] CO2 [Moles/Vol] 23 mmol/L 20 - 31 mmol/L [facility] Creatinine [Mass/Vol] 0.8 mg/dL 0.5 - 0.9 mg/dL [facility] Est, Glom Filt Rate 74 - PINF [facility] Comment on above: These results are [...] [Mass/Vol] 91 mg/dL 70 - 99 mg/dL [facility] Interpretation and review of laboratory results Abnormal [facility] Potassium [Moles/Vol] 4.2 mmol/L 3.7 - 5.3 mmol/L [facility] Protein [Mass/Vol] 5.9 g/dL Low 6.4 - 8.3 g/dL [facility] Sodium [Moles/Vol] 140 mmol/L 135 - 144 mmol/L [facility] Urea nitrogen [Mass/Vol] 17 mg/dL 8 - 23 mg/dL [facility] Urea nitrogen/Creatinine [Mass ratio] 21 mg/mg High 9 - 20 [facility] EKG Rhythm Stripon [facility] [facility] CBC auto differentialon 07-17 Basophils (Bld) [#/Vol] 0.00 10*3/uL [facility] Basophils/100 WBC (Bld) 0 % 0 - 2 % [facility] Eosinophils (Bld) [#/Vol] 0.00 10*3/uL [facility] Eosinophils/100 WBC (Bld) 0 % Low 1 - 4 % [facility] Erythrocyte distribution width (RBC) [Ratio] 12.2 % 11.8 - 14.4 % [facility] Hematocrit (Bld) [Volume fraction] 30.9 % Low 36.3 - 47.1 % [facility] Hemoglobin (Bld) [Mass/Vol] 9.9 g/dL Low 11.9 - 15.1 g/dL [facility] Immature granulocytes (Bld) [#/Vol] 0.00 10*3/uL [facility] Immature granulocytes/100 WBC (Bld) 0 % 0 [facility] Interpretation and review of laboratory results Abnormal [facility] Lymphocytes/100 WBC (Bld) 56 % High 24 - 43 % [facility] Lymphocytes/100 WBC (Bld) 5.71 % High [facility] MCH (RBC) [Entitic mass] 28.6 pg 25.2 - 33.5 pg [facility] MCHC (RBC) [Mass/Vol] 32.0 g/dL 28.4 - 34.8 g/dL [facility] MCV (RBC) [Entitic vol] 89.3 fL 82.6 - 102.9 fL [facility] Monocytes/100 WBC (Bld) 8 % 3 - 12 % [facility] Monocytes/100 WBC (Bld) 0.82 % [facility] Morphology Ki (Bld) [Interp] Normal [facility] Neutrophils/100 WBC (Bld) 36 % 36 - 65 % [facility] Nucleated RBC/100 WBC (Bld) [Ratio] 0.0 % 0.0 per 100 WBC [facility] Platelet mean volume (Bld) [Entitic vol] 11.1 fL 8.1 - 13.5 fL [facility] Platelets (Bld) [#/Vol] 222 10*3/uL [facility] RBC (Bld) [#/Vol] 3.46 10*6/uL Low 3.95 - 5.1 1 m/uL [facility] Segmented neutrophils/100 WBC (Bld) 3.67 % [facility] WBC other (Bld) [#/Vol] 10.2 [facility] CBC with Diffon 08-02-2023 Abs. Basophil 0.00 k/uL Normal 0.0-0.2 [facility] Comment on above: Performed By: #### B SKYLAR, CDP #### [address] [place] [address] Bilingual Teacher Assistant: Willy Henson MD Abs.Imm.Granulocyte 0.00 k/uL Normal 0.00-0.30 [facility] Comment on above: Performed By: #### B SKYLAR, CDP #### [address] [place], [place] [id number] Bilingual Teacher Assistant: Willy Henson MD Abs.Neutrophil (Seg) 3.67 k/uL Normal 1.50-8.10 [facility] Comment on above: Performed By: #### B SKYLAR, CDP #### [address] [place], [place] [id number] Bilingual Teacher Assistant: Willy Henson MD Basophils/100 WBC (Bld) 0 % Normal 0-2 [facility] Comment on above: Performed By: #### B SKYLAR, CDP #### [facility] [address] [place] [address] [place] [address] Bilingual Teacher Assistant: Willy Henson MD Eosinophils (Bld) [#/Vol] 0.00 10*3/uL Normal 0.00-0.44 [facility] Comment on above: Performed By: #### B SKYLAR, CDP #### [address] [place] [address] Bilingual Teacher Assistant: Willy Henson MD Eosinophils/100 WBC (Bld) 0 % Low 1-4 [facility] Comment on above: Performed By: #### B MP, CDP #### [facility] [address] [place], [place] [address] Bilingual Teacher Assistant: Willy Henson MD Immature granulocytes/100 WBC (Bld) 0 % Normal 0 [facility] Comment on above: Performed By: #### B MP, CDP #### [facility] [address] [place], [facility] Bilingual Teacher Assistant: Willy Henson MD Lymphocytes (Bld) [#/Vol] 5.71 10*3/uL High 1.10-3.70 [facility] Comment on above: Performed By: #### B SKYLAR, CDP #### [address] [place] [id number] Bilingual Teacher Assistant: Willy Henson MD Lymphocytes/100 WBC (Bld) 56 % High 24-43 [facility] Comment on above: Performed By: #### B SKYLAR, CDP #### [address] [place], [facility] Bilingual Teacher Assistant: Willy Henson MD Monocytes (Bld) [#/Vol] 0.82 10*3/uL Normal 0.10-1.20 [facility] Comment on above: Performed By: #### B SKYLAR, CDP #### [facility] [address] [place] [address] Dr[place], [facility] Bilingual Teacher Assistant: Willy Henson MD Monocytes/100 WBC (Bld) 8 % Normal 3-12 [facility] Comment on above: Performed By: #### B SKYLAR, CDP #### [address] [place], [facility] Bilingual Teacher Assistant: Willy Henson MD Morphology Ki (Bld) [Interp] Normal Normal [facility] Comment on above: Performed By: #### B MP, CDP #### [facility] [address] [place] [address] [place] [address] Bilingual Teacher Assistant: Willy Henson MD Neutrophil (Seg) 36 % Normal 36-65 [facility] Comment on above: Performed By: #### B MP, CDP #### [facility] [address] [place] [address] Bilingual Teacher Assistant: Willy Henson MD Erythrocyte distribution width (RBC) [Ratio] 12.2 % Normal 11.8-14.4 [facility] Comment on above: Performed By: #### B MP, CDP #### [facility] [address] [place] [address] Bilingual Teacher Assistant: Willy Henson MD Hematocrit (Bld) [Volume fraction] 30.9 % Low 36.3-47.1 [facility] Comment on above: Performed By: #### B SKYLAR, CDP #### [address] [place], [place] [id number] Bilingual Teacher Assistant: Willy Henson MD Hemoglobin (Bld) [Mass/Vol] 9.9 g/dL Low 11.9-15.1 [facility] Comment on above: Performed By: #### B SKYLAR, CDP #### [address] [place], [place] [address]883 Bilingual Teacher Assistant: Willy Henson MD MCH (RBC) [Entitic mass] 28.6 pg Normal 25.2-33.5 [facility] Comment on above: Performed By: #### B MP, CDP #### [address] [place], [place] [phone] Bilingual Teacher Assistant: Willy Henson MD MCHC (RBC) [Mass/Vol] 32.0 g/dL Normal 28.4-34.8 [facility] Comment on above: Performed By: #### B MP, CDP #### [address] [place] [address] Bilingual Teacher Assistant: Willy Henson MD MCV (RBC) [Entitic vol] 89.3 fL Normal 82.6-102.9 [facility] Comment on above: Performed By: #### B SKYLAR, CDP #### [facility] [address] [place], [place] [id number] Bilingual Teacher Assistant: Willy Henson MD NRBC Automated 0.0 per 100 WBC Normal 0.0 [facility] Comment on above: Performed By: #### B SKYLAR, CDP #### [facility] [address] [place], [place] [id number] Bilingual Teacher Assistant: Willy Henson MD Platelet mean volume (Bld) [Entitic vol] 11.1 fL Normal 8.1-13.5 [facility] Comment on above: Performed By: #### B SKYLAR, CDP #### [address] [place], [place] 1070483 Bilingual Teacher Assistant: Willy Henson MD Platelets (Bld) [#/Vol] 222 10*3/uL Normal 138-453 [facility] Comment on above: Performed By: #### B SKYLAR, CDP #### [address] [place] [address] Bilingual Teacher Assistant: Willy Henson MD RBC (Bld) [#/Vol] 3.46 10*6/uL Low 3.95-5.11 [facility] Comment on above: Performed By: #### B SKYLAR, CDP #### [address] [place] [address] Bilingual Teacher Assistant: Willy Henson MD WBC (Bld) [#/Vol] 10.2 10*3/uL Normal 3.5-11.3 [facility] Comment on above: Performed By: #### B MP, CDP #### [address] [place], [place] [id number] Bilingual Teacher Assistant: Willy Henson MD Comp Metabolic Pr/rfx MGon 0 08-02-2023 Albumin [Mass/Vol] 3.3 g/dL Low 3.5-5.2 [facility] Comment on above: Performed By: #### B MP, CDP #### [facility] [address] [place], [place] [id number] Bilingual Teacher Assistant: Willy Henson MD Albumin/Glob Ratio 1.6 Normal 1.0-2.5 [facility] Comment on above: Performed By: #### B MP, CDP #### [facility] [address] [place], [place] 1076883 Bilingual Teacher Assistant: Willy Henson MD Alkaline Phos 102 U/L Normal 35-104 [facility] Comment on above: Performed By: #### B MP, CDP #### [facility] [address] [place] [address] Bilingual Teacher Assistant: Willy Henson MD ALT [Catalytic activity/Vol] 10 U/L Normal 5-33 [facility] Comment on above: Performed By: #### B MP, CDP #### [facility] [address] [place] [address] [place] [address] Bilingual Teacher Assistant: Willy Henson MD Anion gap [Moles/Vol] 8 mmol/L Low 9-17 [facility] Comment on above: Performed By: #### B MP, CDP #### [facility] [address] [place] [address] [place] [address] Bilingual Teacher Assistant: Willy Henson MD AST [Catalytic activity/Vol] 11 U/L Normal <32 [facility] Comment on above: Performed By: #### B MP, CDP #### [facility] [address] [place] [address] Bilingual Teacher Assistant: Willy Henson MD Bilirubin [Mass/Vol] 0.3 mg/dL Normal 0.3-1.2 [facility] Comment on above: Performed By: #### B MP, CDP #### [facility] [address] [place] [address] Bilingual Teacher Assistant: Willy Henson MD BUN/CRE Ratio 26 High 9-20 [facility] Comment on above: Performed By: #### B SKYLAR, CDP #### [facility] [address] [place], [place] [id number] Bilingual Teacher Assistant: Willy Henson MD Calcium [Mass/Vol] 8.8 mg/dL Normal 8.6-10.4 [facility] Comment on above: Performed By: #### B SKYLAR, CDP #### [facility] [address] [place] [address] Bilingual Teacher Assistant: Willy Henson MD Chloride [Moles/Vol] 107 mmol/L Normal 98-107 [facility] Comment on above: Performed By: #### B SKYLAR, CDP #### [facility] [address] [place], [place] [phone] Bilingual Teacher Assistant: Willy Henson MD CO2 [Moles/Vol] 24 mmol/L Normal 20-31 [facility] Comment on above: Performed By: #### B SKYLAR, CDP #### [facility] [address] [place] [address] Bilingual Teacher Assistant: Willy Henson MD Creatinine [Mass/Vol] 0.7 mg/dL Normal 0.5-0.9 [facility] Comment on above: Performed By: #### B SKYLAR, CDP #### [facility] [address] [place] [address] Bilingual Teacher Assistant: Willy Henson MD GFR/1.73 sq M.predicted among non-blacks MDRD (S/P/Bld) [Vol rate/Area] 87 mL/min/{1.73_m2} Normal >60 [facility] Comment on above: Result Comment: These [...] Performed By: #### B SKYLAR, CDP #### [facility] [address] [place], [place] [id number] Bilingual Teacher Assistant: Willy Henson MD Glucose [Mass/Vol] 105 mg/dL High 70-99 [facility] Comment on above: Performed By: #### B SKYLAR, CDP #### [facility] [address] [place] [address] Bilingual Teacher Assistant: Willy Henson MD Potassium [Moles/Vol] 4.2 mmol/L Normal 3.7-5.3 [facility] Comment on above: Performed By: #### B SKYLAR, CDP #### [facility] [address] [place] [address] [place], [place] [id number] Bilingual Teacher Assistant: Willy Henson MD Protein [Mass/Vol] 5.4 g/dL Low 6.4-8.3 [facility] Comment on above: Performed By: #### B SKYLAR, CDP #### [address] [place], [place] 933[address]83 Bilingual Teacher Assistant: Willy Henson MD Sodium [Moles/Vol] 139 mmol/L Normal 135-144 [facility] Comment on above: Performed By: #### B SKYLAR, CDP #### [facility] [address] [place] [address] [place] [address] Bilingual Teacher Assistant: Willy Henson MD Urea nitrogen [Mass/Vol] 18 mg/dL Normal 8-23 [facility] Comment on above: Performed By: #### B SKYLAR, CDP #### [address] [place], [place] [phone] Bilingual Teacher Assistant: Willy Henson MD Comprehensive Metabolic Pane l w/ Reflex to MGon 08-02-2023 Albumin [Mass/Vol] 3.3 g/dL Low 3.5 - 5.2 g/dL [facility] Albumin/Globulin [Mass ratio] 1.6 {ratio} 1.0 - 2.5 [facility] ALP [Catalytic activity/Vol] 102 U/L 35 - 104 U/L [facility] ALT [Catalytic activity/Vol] 10 U/L 5 - 33 U/L [facility] Anion gap [Moles/Vol] 8 mmol/L Low 9 - 17 mmol/L [facility] AST [Catalytic activity/Vol] 11 U/L NINF - 32 U/L [facility] Bilirubin [Mass/Vol] 0.3 mg/dL 0.3 - 1 .2 mg/dL [facility] Calcium [Mass/Vol] 8.8 mg/dL 8.6 - 10. 4 mg/dL [facility] Chloride [Moles/Vol] 107 mmol/L 98 - 10 7 mmol/L [facility] CO2 [Moles/Vol] 24 mmol/L 20 - 31 mmol/L [facility] Creatinine [Mass/Vol] 0.7 mg/dL 0.5 - 0.9 mg/dL [facility] Est, Glom Filt Rate 87 - PINF [facility] Comment on above: These results are [...] 105 mg/dL High 70 - 99 mg/dL [facility] Interpretation and review of laboratory results Abnormal [facility] Potassium [Moles/Vol] 4.2 mmol/L 3.7 - 5.3 mmol/L [facility] Protein [Mass/Vol] 5.4 g/dL Low 6.4 - 8.3 g/dL [facility] Sodium [Moles/Vol] 139 mmol/L 135 - 144 mmol/L [facility] Urea nitrogen [Mass/Vol] 18 mg/dL 8 - 23 mg/dL [facility] Urea nitrogen/Creatinine [Mass ratio] 26 mg/mg High 9 - 20 [facility] EKG Rhythm Stripon [facility] CBC auto differentialon 07-17 Basophils (Bld) [#/Vol] [facility] Basophils/100 WBC (Bld) 0 % 0 - 2 % [facility] Eosinophils (Bld) [#/Vol] [facility] Eosinophils/100 WBC (Bld) 0 % Low 1 - 4 % [facility] Erythrocyte distribution width (RBC) [Ratio] 11.9 % 11.8 - 14.4 % [facility] Hematocrit (Bld) [Volume fraction] 35.6 % Low 36.3 - 47.1 % [facility] Hemoglobin (Bld) [Mass/Vol] 11.5 g/dL Low 11.9 - 15.1 g/dL [facility] Immature granulocytes (Bld) [#/Vol] 0.04 10*3/uL [facility] Immature granulocytes/100 WBC (Bld) 0 % 0 [facility] Interpretation and review of laboratory results Abnormal [facility] Lymphocytes/100 WBC (Bld) 44 % High 24 - 43 % [facility] Lymphocytes/100 WBC (Bld) 5.25 % High [facility] MCH (RBC) [Entitic mass] 29.0 pg 25.2 - 33.5 pg [facility] MCHC (RBC) [Mass/Vol] 32.3 g/dL 28.4 - 34.8 g/dL [facility] MCV (RBC) [Entitic vol] 89.7 fL 82.6 - 102.9 fL [facility] Monocytes/100 WBC (Bld) 1 % Low 3 - 12 % [facility] Monocytes/100 WBC (Bld) 0.15 % [facility] Neutrophils/100 WBC (Bld) 55 % 36 - 65 % [facility] Nucleated RBC/100 WBC (Bld) [Ratio] 0.0 % 0.0 per 100 WBC [facility] Platelet mean volume (Bld) [Entitic vol] 11.0 fL 8.1 - 13.5 fL [facility] Platelets (Bld) [#/Vol] 240 10*3/uL [facility] RBC (Bld) [#/Vol] 3.97 10*6/uL 3.95 - 5.1 1 m/uL [facility] Segmented neutrophils/100 WBC (Bld) 6.38 % [facility] WBC other (Bld) [#/Vol] 11.9 High [facility] CBC with Diffon 08-01-2023 Abs. Basophil <0.03 Normal 0.00-0.20 [facility] Comment on above: Performed By: #### C DP, CMPX #### [facility] [address] [place] [address] [place] [address] Bilingual Teacher Assistant: Willy Henson MD Abs. Eosinophil <0.03 Normal 0.00-0.44 [facility] Comment on above: Performed By: #### C DP, CMPX #### [address] [place] [address] Bilingual Teacher Assistant: Willy Henson MD Abs.Imm.Granulocyte 0.04 k/uL Normal 0.00-0.30 [facility] Comment on above: Performed By: #### C DP, CMPX #### [address] [place], [facility] Bilingual Teacher Assistant: Willy Henson MD Abs.Neutrophil (Seg) 6.38 k/uL Normal 1.50-8.10 [facility] Comment on above: Performed By: #### C DP, CMPX #### [address] [place] [id number] Bilingual Teacher Assistant: Willy Henson MD Basophils/100 WBC (Bld) 0 % Normal 0-2 [facility] Comment on above: Performed By: #### C DP, CMPX #### [facility] [address] [place] [address] [place], [place] 1949483 Bilingual Teacher Assistant: Willy Henson MD Eosinophils/100 WBC (Bld) 0 % Low 1-4 [facility] Comment on above: Performed By: #### C DP, CMPX #### [address] [place], [facility] Bilingual Teacher Assistant: Willy Henson MD Erythrocyte distribution width (RBC) [Ratio] 11.9 % Normal 11.8-14.4 [facility] Comment on above: Performed By: #### C DP, CMPX #### [address] [place] [id number] Bilingual Teacher Assistant: Willy Henson MD Hematocrit (Bld) [Volume fraction] 35.6 % Low 36.3-47.1 [facility] Comment on above: Performed By: #### C DP, CMPX #### [address] [place], [facility] Bilingual Teacher Assistant: Willy Henson MD Hemoglobin (Bld) [Mass/Vol] 11.5 g/dL Low 11.9-15.1 [facility] Comment on above: Performed By: #### C DP, CMPX #### [address] [place], [facility] Bilingual Teacher Assistant: Willy Henson MD Immature granulocytes/100 WBC (Bld) 0 % Normal 0 [facility] Comment on above: Performed By: #### C DP, CMPX #### [address] [place], [place] [id number] Bilingual Teacher Assistant: Willy Henson MD Lymphocytes (Bld) [#/Vol] 5.25 10*3/uL High 1.10-3.70 [facility] Comment on above: Performed By: #### C DP, CMPX #### [facility] [address] [place], [place] [phone] Bilingual Teacher Assistant: Willy Henson MD Lymphocytes/100 WBC (Bld) 44 % High 24-43 [facility] Comment on above: Performed By: #### C DP, CMPX #### [facility] [address] [place] [address] Bilingual Teacher Assistant: Willy Henson MD MCH (RBC) [Entitic mass] 29.0 pg Normal 25.2-33.5 [facility] Comment on above: Performed By: #### C DP, CMPX #### [address] [place], [place] [id number] Bilingual Teacher Assistant: Willy Henson MD MCHC (RBC) [Mass/Vol] 32.3 g/dL Normal 28.4-34.8 [facility] Comment on above: Performed By: #### C DP, CMPX #### [address] [place], [place] [id number] Bilingual Teacher Assistant: Willy Henson MD MCV (RBC) [Entitic vol] 89.7 fL Normal 82.6-102.9 [facility] Comment on above: Performed By: #### C DP, CMPX #### [address] [place] [address] Bilingual Teacher Assistant: Willy Henson MD Monocytes (Bld) [#/Vol] 0.15 10*3/uL Normal 0.10-1.20 [facility] Comment on above: Performed By: #### C DP, CMPX #### [address] [place] [address] Bilingual Teacher Assistant: Willy Henson MD Monocytes/100 WBC (Bld) 1 % Low 3-12 [facility] Comment on above: Performed By: #### C DP, CMPX #### [facility] [address] [place], [place] [id number] Bilingual Teacher Assistant: Willy Henson MD Neutrophil (Seg) 55 % Normal 36-65 [facility] Comment on above: Performed By: #### C DP, CMPX #### [facility] [address] [place], [place] [id number] Bilingual Teacher Assistant: Willy Henson MD NRBC Automated 0.0 per 100 WBC Normal 0.0 [facility] Comment on above: Performed By: #### C DP, CMPX #### [facility] [address] [place], [place] 8167783 Bilingual Teacher Assistant: Willy Henson MD Platelet mean volume (Bld) [Entitic vol] 11.0 fL Normal 8.1-13.5 [facility] Comment on above: Performed By: #### C DP, CMPX #### [address] [place], [facility] Bilingual Teacher Assistant: Willy Henson MD Platelets (Bld) [#/Vol] 240 10*3/uL Normal 138-453 [facility] Comment on above: Performed By: #### C DP, CMPX #### [address] [place], [place] [id number] Bilingual Teacher Assistant: Willy Henson MD RBC (Bld) [#/Vol] 3.97 10*6/uL Normal 3.95-5.11 [facility] Comment on above: Performed By: #### C DP, CMPX #### [facility] [address] [place] [address] [place], [place] [id number] Bilingual Teacher Assistant: Willy Henson MD WBC (Bld) [#/Vol] 11.9 10*3/uL High 3.5-11.3 [facility] Comment on above: Performed By: #### C DP, CMPX #### [facility] [address] [place] [address] Bilingual Teacher Assistant: Willy Henson MD Comp Metabolic Pr/rfx MGon 0 - Albumin [Mass/Vol] 3.5 g/dL Normal 3.5-5.2 [facility] Comment on above: Performed By: #### C DP, CMPX #### [facility] [address] [place], [place] [id number] Bilingual Teacher Assistant: Willy Henson MD Albumin/Glob Ratio 1.3 Normal 1.0-2.5 [facility] Comment on above: Performed By: #### C DP, CMPX #### [facility] [address] [place], [place] 7130583 Bilingual Teacher Assistant: Willy Henson MD Alkaline Phos 129 U/L High 35-104 [facility] Comment on above: Performed By: #### C DP, CMPX #### [facility] [address] [place], [place] [address] Bilingual Teacher Assistant: Willy Henson MD ALT [Catalytic activity/Vol] 11 U/L Normal 5-33 [facility] Comment on above: Performed By: #### C DP, CMPX #### [facility] [address] [place], [place] 8792283 Bilingual Teacher Assistant: Willy Henson MD Anion gap [Moles/Vol] 11 mmol/L Normal 9-17 [facility] Comment on above: Performed By: #### C DP, CMPX #### [facility] [address] [place] [address] Bilingual Teacher Assistant: Willy Henson MD AST [Catalytic activity/Vol] 15 U/L Normal <32 [facility] Comment on above: Performed By: #### C DP, CMPX #### [facility] [address] [place], [place] [id number] Bilingual Teacher Assistant: Willy Henson MD Bilirubin [Mass/Vol] 0.3 mg/dL Normal 0.3-1.2 [facility] Comment on above: Performed By: #### C DP, CMPX #### [facility] [address] [place] [address] Bilingual Teacher Assistant: Willy Henson MD BUN/CRE Ratio 30 High 9-20 [facility] Comment on above: Performed By: #### C DP, CMPX #### [facility] [address] [place] [address] Bilingual Teacher Assistant: Willy Henson MD Calcium [Mass/Vol] 9.2 mg/dL Normal 8.6-10.4 [facility] Comment on above: Performed By: #### C DP, CMPX #### [facility] [address] [place] [address] Bilingual Teacher Assistant: Willy Henson MD Chloride [Moles/Vol] 104 mmol/L Normal 98-107 [facility] Comment on above: Performed By: #### C DP, CMPX #### [facility] [address] [place] [address] Bilingual Teacher Assistant: Willy Henson MD CO2 [Moles/Vol] 23 mmol/L Normal 20-31 [facility] Comment on above: Performed By: #### C DP, CMPX #### [facility] [address] [place] [address] Bilingual Teacher Assistant: Willy Henson MD Creatinine [Mass/Vol] 0.6 mg/dL Normal 0.5-0.9 [facility] Comment on above: Performed By: #### C DP, CMPX #### [facility] [address] [place] [address] Bilingual Teacher Assistant: Willy Henson MD GFR/1.73 sq M.predicted among non-blacks MDRD (S/P/Bld) [Vol rate/Area] mL/min/{1.73_m2} Normal >60 [facility] Comment on above: Result Comment: These [...] Performed By: #### C DP, CMPX #### [facility] [address] [place] [address] Bilingual Teacher Assistant: Willy Henson MD Glucose [Mass/Vol] 142 mg/dL High 70-99 [facility] Comment on above: Performed By: #### C DP, CMPX #### [facility] [address] [place] [address] Bilingual Teacher Assistant: Willy Henson MD Potassium [Moles/Vol] 4.6 mmol/L Normal 3.7-5.3 [facility] Comment on above: Performed By: #### C DP, CMPX #### [facility] [address] [place] [address] [place] [place], [place] [id number] Bilingual Teacher Assistant: Willy Henson MD Protein [Mass/Vol] 6.2 g/dL Low 6.4-8.3 [facility] Comment on above: Performed By: #### C DP, CMPX #### [facility] [address] [place] [address] [place] [address] Bilingual Teacher Assistant: Willy Henson MD Sodium [Moles/Vol] 138 mmol/L Normal 135-144 [facility] Comment on above: Performed By: #### C DP, CMPX #### [facility] [address] [place] [address] Bilingual Teacher Assistant: Willy Henson MD Urea nitrogen [Mass/Vol] 18 mg/dL Normal 8-23 [facility] Comment on above: Performed By: #### C DP, CMPX #### [facility] [address] [place] [address] Bilingual Teacher Assistant: Willy Henson MD Comprehensive Metabolic Pane l w/ Reflex to MGon 08-01-2023 Albumin [Mass/Vol] 3.5 g/dL 3.5 - 5.2 g/dL [facility] Albumin/Globulin [Mass ratio] 1.3 {ratio} 1.0 - 2.5 [facility] ALP [Catalytic activity/Vol] 129 U/L High 35 - 104 U/L [facility] ALT [Catalytic activity/Vol] 11 U/L 5 - 33 U/L [facility] Anion gap [Moles/Vol] 11 mmol/L 9 - 17 mmol/L [facility] AST [Catalytic activity/Vol] 15 U/L NINF - 32 U/L [facility] Bilirubin [Mass/Vol] 0.3 mg/dL 0.3 - 1 .2 mg/dL [facility] Calcium [Mass/Vol] 9.2 mg/dL 8.6 - 10. 4 mg/dL [facility] Chloride [Moles/Vol] 104 mmol/L 98 - 10 7 mmol/L [facility] CO2 [Moles/Vol] 23 mmol/L 20 - 31 mmol/L [facility] Creatinine [Mass/Vol] 0.6 mg/dL 0.5 - 0.9 mg/dL [facility] Est, Taz Barnardt Rate - PINF [facility] Comment on above: These results are [...] 142 mg/dL High 70 - 99 mg/dL [facility] Interpretation and review of laboratory results Abnormal [facility] Potassium [Moles/Vol] 4.6 mmol/L 3.7 - 5.3 mmol/L [facility] Protein [Mass/Vol] 6.2 g/dL Low 6.4 - 8.3 g/dL [facility] Sodium [Moles/Vol] 138 mmol/L 135 - 144 mmol/L [facility] Urea nitrogen [Mass/Vol] 18 mg/dL 8 - 23 mg/dL [facility] Urea nitrogen/Creatinine [Mass ratio] 30 mg/mg High - [facility] EKG Rhythm Stripon [facility] Basic Metabolic Panelon 07-17 Anion gap [Moles/Vol] 11 mmol/L 9 - 17 mmol/L [facility] Calcium [Mass/Vol] 9.6 mg/dL 8.6 - 10. 4 mg/dL [facility] Chloride [Moles/Vol] 101 mmol/L 98 - 10 7 mmol/L [facility] CO2 [Moles/Vol] 26 mmol/L 20 - 31 mmol/L [facility] Creatinine [Mass/Vol] 0.7 mg/dL 0.5 - 0.9 mg/dL [facility] Est, Glom Filt Rate 87 - PINF [facility] Comment on above: These results are [...] 102 mg/dL High 70 - 99 mg/dL [facility] Interpretation and review of laboratory results Abnormal [facility] Potassium [Moles/Vol] 4.5 mmol/L 3.7 - 5.3 mmol/L [facility] Sodium [Moles/Vol] 138 mmol/L 135 - 144 mmol/L [facility] Urea nitrogen [Mass/Vol] 24 mg/dL High 8 - 23 mg/dL [facility] Urea nitrogen/Creatinine [Mass ratio] 34 mg/mg High - 20 [facility] Basic Metabolic Profon 07-30 Anion gap [Moles/Vol] 11 mmol/L Normal 9-17 [facility] Comment on above: Performed By: #### B SKYLAR, CDP #### [facility] [address] [place], [place] [id number] Bilingual Teacher Assistant: Willy Henson MD BUN/CRE Ratio 34 High 9-20 [facility] Comment on above: Performed By: #### B SKYLAR, CDP #### [facility] [address] [place], [place] [id number] Bilingual Teacher Assistant: Willy Henson MD Calcium [Mass/Vol] 9.6 mg/dL Normal 8.6-10.4 [facility] Comment on above: Performed By: #### B SKYLAR, CDP #### [facility] [address] [place], [place] [id number] Bilingual Teacher Assistant: Willy Henson MD Chloride [Moles/Vol] 101 mmol/L Normal 98-107 [facility] Comment on above: Performed By: #### B SKYLAR, CDP #### [facility] [address] [place], [place] 1135783 Bilingual Teacher Assistant: Willy Henson MD CO2 [Moles/Vol] 26 mmol/L Normal 20-31 [facility] Comment on above: Performed By: #### B SKYLAR, CDP #### [facility] [address] [place], [place] [id number] Bilingual Teacher Assistant: Willy Henson MD Creatinine [Mass/Vol] 0.7 mg/dL Normal 0.5-0.9 [facility] Comment on above: Performed By: #### B SKYLAR, CDP #### [facility] [address] [place] [address] Bilingual Teacher Assistant: Willy Henson MD GFR/1.73 sq M.predicted among non-blacks MDRD (S/P/Bld) [Vol rate/Area] 87 mL/min/{1.73_m2} Normal >60 [facility] Comment on above: Result Comment: These [...] Performed By: #### B SKYLAR, CDP #### [facility] [address] [place] [address] [place] [address] Bilingual Teacher Assistant: Willy Henson MD Glucose [Mass/Vol] 102 mg/dL High 70-99 [facility] Comment on above: Performed By: #### B SKYLAR, CDP #### [facility] [address] [place] [address] [place], [place] [id number] Bilingual Teacher Assistant: Willy Henson MD Potassium [Moles/Vol] 4.5 mmol/L Normal 3.7-5.3 [facility] Comment on above: Performed By: #### Tanner CHENG, CDP #### [facility] [address] [place] [address] [place] [place], [place] [id number] Bilingual Teacher Assistant: Willy Henson MD Sodium [Moles/Vol] 138 mmol/L Normal 135-144 [facility] Comment on above: Performed By: #### Tanner CHENG, CDP #### [facility] [address] [place] [address] [place], [place] [id number] Bilingual Teacher Assistant: Willy Henson MD Urea nitrogen [Mass/Vol] 24 mg/dL High 8-23 [facility] Comment on above: Performed By: #### B SKYLAR, CDP #### [facility] [address] [place] [address] Bilingual Teacher Assistant: Willy Henson MD CBC with Auto Differentialon 07-31-2023 Basophils (Bld) [#/Vol] 0.00 10*3/uL [facility] Basophils/100 WBC (Bld) 0 % 0 - 2 % [facility] Eosinophils (Bld) [#/Vol] 0.00 10*3/uL [facility] Eosinophils/100 WBC (Bld) 0 % Low 1 - 4 % [facility] Erythrocyte distribution width (RBC) [Ratio] 12.1 % 11.8 - 14.4 % [facility] Hematocrit (Bld) [Volume fraction] 36.6 % 36.3 - 47.1 % [facility] Hemoglobin (Bld) [Mass/Vol] 11.7 g/dL Low 11.9 - 15.1 g/dL [facility] Immature granulocytes (Bld) [#/Vol] 0.00 10*3/uL [facility] Immature granulocytes/100 WBC (Bld) 0 % 0 [facility] Interpretation and review of laboratory results Abnormal [facility] Lymphocytes/100 WBC (Bld) 49 % High 24 - 43 % [facility] Lymphocytes/100 WBC (Bld) 5.48 % High [facility] MCH (RBC) [Entitic mass] 28.8 pg 25.2 - 33.5 pg [facility] MCHC (RBC) [Mass/Vol] 32.0 g/dL 28.4 - 34.8 g/dL [facility] MCV (RBC) [Entitic vol] 90.1 fL 82.6 - 102.9 fL [facility] Monocytes/100 WBC (Bld) 3 % 3 - 12 % [facility] Monocytes/100 WBC (Bld) 0.34 % [facility] Morphology Ki (Bld) [Interp] Normal [facility] Neutrophils/100 WBC (Bld) 48 % 36 - 65 % [facility] Nucleated RBC/100 WBC (Bld) [Ratio] 0.0 % 0.0 per 100 WBC [facility] Platelet mean volume (Bld) [Entitic vol] 11.0 fL 8.1 - 13.5 fL [facility] Platelets (Bld) [#/Vol] 249 10*3/uL [facility] RBC (Bld) [#/Vol] 4.06 10*6/uL 3.95 - 5.1 1 m/uL [facility] Segmented neutrophils/100 WBC (Bld) 5.38 % [facility] WBC other (Bld) [#/Vol] 11.2 [facility] CBC with Diffon 07-31-2023 Abs. Basophil 0.00 k/uL Normal 0.0-0.2 [facility] Comment on above: Performed By: #### B SKYLAR, CDP #### [facility] [address] [place], [place] [address] Bilingual Teacher Assistant: Willy Henson MD Abs.Imm.Granulocyte 0.00 k/uL Normal 0.00-0.30 [facility] Comment on above: Performed By: #### B SKYLAR, CDP #### [address] [place] [address] Bilingual Teacher Assistant: Willy Henson MD Abs.Neutrophil (Seg) 5.38 k/uL Normal 1.50-8.10 [facility] Comment on above: Performed By: #### B SKYLAR, CDP #### [address] [place], [facility] Bilingual Teacher Assistant: Willy Henson MD Basophils/100 WBC (Bld) 0 % Normal 0-2 [facility] Comment on above: Performed By: #### B SKYLAR, CDP #### [facility] [address] [place] [address] Dr[place], [place] [address] Bilingual Teacher Assistant: Willy Henson MD Eosinophils (Bld) [#/Vol] 0.00 10*3/uL Normal 0.00-0.44 [facility] Comment on above: Performed By: #### B SKYLAR, CDP #### [facility] [address] [place], [place] [id number] Bilingual Teacher Assistant: Willy Henson MD Eosinophils/100 WBC (Bld) 0 % Low 1-4 [facility] Comment on above: Performed By: #### B SKYLAR, CDP #### [facility] [address] [place], [place] [id number] Bilingual Teacher Assistant: Willy Henson MD Immature granulocytes/100 WBC (Bld) 0 % Normal 0 [facility] Comment on above: Performed By: #### B MP, CDP #### [facility] [address] [place], [place] [id number] Bilingual Teacher Assistant: Willy Henson MD Lymphocytes (Bld) [#/Vol] 5.48 10*3/uL High 1.10-3.70 [facility] Comment on above: Performed By: #### B MP, CDP #### [address] [place], [place] [id number] Bilingual Teacher Assistant: Willy Henson MD Lymphocytes/100 WBC (Bld) 49 % High 24-43 [facility] Comment on above: Performed By: #### B MP, CDP #### [facility] [address] [place] [address] [place], [place] [id number] Bilingual Teacher Assistant: Willy Henson MD Monocytes (Bld) [#/Vol] 0.34 10*3/uL Normal 0.10-1.20 [facility] Comment on above: Performed By: #### B MP, CDP #### [facility] [address] [place] [address] [place]. [place], [place] [phone] Bilingual Teacher Assistant: Willy Henson MD Monocytes/100 WBC (Bld) 3 % Normal 3-12 [facility] Comment on above: Performed By: #### B MP, CDP #### [facility] [address] [place], [place] [id number] Bilingual Teacher Assistant: Willy Henson MD Morphology Ki (Bld) [Interp] Normal Normal [facility] Comment on above: Performed By: #### B MP, CDP #### [facility] [address] [place], [place] [id number] Bilingual Teacher Assistant: Willy Henson MD Neutrophil (Seg) 48 % Normal 36-65 [facility] Comment on above: Performed By: #### B SKYLAR, CDP #### [facility] [address] [place] [address] [place] [address] Bilingual Teacher Assistant: Willy Henson MD Erythrocyte distribution width (RBC) [Ratio] 12.1 % Normal 11.8-14.4 [facility] Comment on above: Performed By: #### B SKYLAR, CDP #### [address] [place], [facility] Bilingual Teacher Assistant: Willy Henson MD Hematocrit (Bld) [Volume fraction] 36.6 % Normal 36.3-47.1 [facility] Comment on above: Performed By: #### B SKYLAR, CDP #### [address] [place], [facility] Bilingual Teacher Assistant: Willy Henson MD Hemoglobin (Bld) [Mass/Vol] 11.7 g/dL Low 11.9-15.1 [facility] Comment on above: Performed By: #### B SKYLAR, CDP #### [address] [place] [address] Bilingual Teacher Assistant: Willy Henson MD MCH (RBC) [Entitic mass] 28.8 pg Normal 25.2-33.5 [facility] Comment on above: Performed By: #### B SKYLAR, CDP #### [address] [place], [facility] Bilingual Teacher Assistant: Willy Henson MD MCHC (RBC) [Mass/Vol] 32.0 g/dL Normal 28.4-34.8 [facility] Comment on above: Performed By: #### B SKYLAR, CDP #### [address] [place] [address] Bilingual Teacher Assistant: Willy Henson MD MCV (RBC) [Entitic vol] 90.1 fL Normal 82.6-102.9 [facility] Comment on above: Performed By: #### B SKYLAR, CDP #### [facility] [address] [place], [place] [id number] Bilingual Teacher Assistant: Willy Henson MD NRBC Automated 0.0 per 100 WBC Normal 0.0 [facility] Comment on above: Performed By: #### B MP, CDP #### [address] [place], [facility] Bilingual Teacher Assistant: Willy Henson MD Platelet mean volume (Bld) [Entitic vol] 11.0 fL Normal 8.1-13.5 [facility] Comment on above: Performed By: #### B SKYLAR, CDP #### [address] [place], [facility] Bilingual Teacher Assistant: Willy Henson MD Platelets (Bld) [#/Vol] 249 10*3/uL Normal 138-453 [facility] Comment on above: Performed By: #### B SKYLAR, CDP #### [address] [place], [place] [id number] Bilingual Teacher Assistant: Willy Henson MD RBC (Bld) [#/Vol] 4.06 10*6/uL Normal 3.95-5.11 [facility] Comment on above: Performed By: #### B SKYLAR, CDP #### [address] [place], [facility] Bilingual Teacher Assistant: Willy Henson MD WBC (Bld) [#/Vol] 11.2 10*3/uL Normal 3.5-11.3 [facility] Comment on above: Performed By: #### B SKYLAR, CDP #### [address] [place] [address] Bilingual Teacher Assistant: Willy Henson MD CT ABDOMEN PELVIS W [...] Chato Bell MD 07/31/23 Final result Normal [facility] CT Abdomen and Pelvis W cont rast David 07-31-2023 1. Periumbilical rim enhancing collection measuring 3.7 x 3.6 x 4.0 cm with surrounding soft tissue swelling. 2. Septated uterus with probable fibroid. 3. Generalized body wall edema. 4. Left-sided colonic diverticulosis. [facility] RIS CONSOLIDATED EXAMINATION: CT OF THE ABDOMEN [...] 4.0 cm with surrounding soft tissue swelling. [facility] CONSOLIDATED Chato Bell MD - 07/31/2023 EXAMINATION: [...] body wall edema. 4. Left-sided colonic diverticulosis. [facility] [employer] Radiology Study observation (narrative) [facility]domen [facility] Pelvis W cont rast IVOrdered By: Chato Bell on 07-31-2023 [facility] Work Phone: CBC with Auto Differentialon 07-18-2023 Basophils (Bld) [#/Vol] [facility] Basophils/100 WBC (Bld) 0 % 0 - 2 % [facility] [employer] Eosinophils (Bld) [#/Vol] 0.06 10*3/uL [facility] Eosinophils/100 WBC (Bld) 1 % 1 - 4 % [facility] Erythrocyte distribution width (RBC) [Ratio] 12.5 % 11.8 - 14.4 % [facility] Hematocrit (Bld) [Volume fraction] 33.5 % Low 36.3 - 47.1 % [facility] Hemoglobin (Bld) [Mass/Vol] 10.7 g/dL Low 11.9 - 15.1 g/dL [facility] Immature granulocytes (Bld) [#/Vol] 0.04 10*3/uL [facility] Immature granulocytes/100 WBC (Bld) 0 % 0 [facility] Interpretation and review of laboratory results Abnormal [facility] Lymphocytes/100 WBC (Bld) 40 % 24 - 43 % [facility] Lymphocytes/100 WBC (Bld) 4.64 % High [facility] MCH (RBC) [Entitic mass] 28.8 pg 25.2 - 33.5 pg [facility] MCHC (RBC) [Mass/Vol] 31.9 g/dL 28.4 - 34.8 g/dL [facility] MCV (RBC) [Entitic vol] 90.3 fL 82.6 - 102.9 fL [facility] Monocytes/100 WBC (Bld) 8 % 3 - 12 % [facility] Monocytes/100 WBC (Bld) 0.88 % [facility] Neutrophils/100 WBC (Bld) 52 % 36 - 65 % [facility] Nucleated RBC/100 WBC (Bld) [Ratio] 0.0 % 0.0 per 100 WBC [facility] Platelet, Fluorescence 137 Low [facility] Platelets (Bld) [#/Vol] See Reflexed IPF Result [facility] Platelets reticulated/100 platelets Auto (Bld) 4.3 % 1.1 - 10.3 % [facility] RBC (Bld) [#/Vol] 3.71 10*6/uL Low 3.95 - 5.1 1 m/uL [facility] Segmented neutrophils/100 WBC (Bld) 5.99 % [facility] WBC other (Bld) [#/Vol] 11.6 High [facility] CBC with Diffon 07-18-2023 Platelet, Fluoresc. 137 k/uL Low 138-453 [facility] Comment on above: Performed By: #### C P, CDP #### [address] [place] [address] Bilingual Teacher Assistant: Willy Henson MD PLT, Immature Fract. 4.3 % Normal 1.1-10.3 [facility] Comment on above: Performed By: #### C P, CDP #### [address] [place] [address] Bilingual Teacher Assistant: Willy Henson MD Abs. Basophil <0.03 Normal 0.00-0.20 [facility] Comment on above: Performed By: #### C P, CDP #### [address] [place] [address] Bilingual Teacher Assistant: Willy Henson MD Abs.Imm.Granulocyte 0.04 k/uL Normal 0.00-0.30 [facility] Comment on above: Performed By: #### C P, CDP #### [address] [place], [place] [address] Bilingual Teacher Assistant: Willy Henson MD Abs.Neutrophil (Seg) 5.99 k/uL Normal 1.50-8.10 [facility] Comment on above: Performed By: #### C P, CDP #### [address] [place], [place] [address] Bilingual Teacher Assistant: Willy Henson MD Basophils/100 WBC (Bld) 0 % Normal 0-2 [facility] Comment on above: Performed By: #### C P, CDP #### [address] [place] [address] Bilingual Teacher Assistant: Willy Henson MD Eosinophils (Bld) [#/Vol] 0.06 10*3/uL Normal 0.00-0.44 [facility] Comment on above: Performed By: #### C P, CDP #### [facility] [address] [place], [place] [id number] Bilingual Teacher Assistant: Willy Henson MD Eosinophils/100 WBC (Bld) 1 % Normal 1-4 [facility] Comment on above: Performed By: #### C P, CDP #### [address] [place], [place] [id number] Bilingual Teacher Assistant: Willy Henson MD Erythrocyte distribution width (RBC) [Ratio] 12.5 % Normal 11.8-14.4 [facility] Comment on above: Performed By: #### C P, CDP #### [address] [place], [place] [phone] Bilingual Teacher Assistant: Willy Henson MD Hematocrit (Bld) [Volume fraction] 33.5 % Low 36.3-47.1 [facility] Comment on above: Performed By: #### C P, CDP #### [address] [place], [facility] Bilingual Teacher Assistant: Willy Henson MD Hemoglobin (Bld) [Mass/Vol] 10.7 g/dL Low 11.9-15.1 [facility] Comment on above: Performed By: #### C P, CDP #### [address] [place], [place] [id number] Bilingual Teacher Assistant: Willy Henson MD Immature granulocytes/100 WBC (Bld) 0 % Normal 0 [facility] Comment on above: Performed By: #### C P, CDP #### [address] [place], [place] [id number] Bilingual Teacher Assistant: Willy Henson MD Lymphocytes (Bld) [#/Vol] 4.64 10*3/uL High 1.10-3.70 [facility] Comment on above: Performed By: #### C P, CDP #### [address] [place], [place] [phone] Bilingual Teacher Assistant: Willy Henson MD Lymphocytes/100 WBC (Bld) 40 % Normal 24-43 [facility] Comment on above: Performed By: #### C P, CDP #### [facility] [address] [place], [place] 6238783 Bilingual Teacher Assistant: Willy Henson MD MCH (RBC) [Entitic mass] 28.8 pg Normal 25.2-33.5 [facility] Comment on above: Performed By: #### C P, CDP #### [facility] [address] [place], [place] [id number] Bilingual Teacher Assistant: Willy Henson MD MCHC (RBC) [Mass/Vol] 31.9 g/dL Normal 28.4-34.8 [facility] Comment on above: Performed By: #### C P, CDP #### [facility] [address] [place] [address] [place], [place] [id number] Bilingual Teacher Assistant: Willy Henson MD MCV (RBC) [Entitic vol] 90.3 fL Normal 82.6-102.9 [facility] Comment on above: Performed By: #### C P, CDP #### [address] [place], [place] 2547483 Bilingual Teacher Assistant: Willy Henson MD Monocytes (Bld) [#/Vol] 0.88 10*3/uL Normal 0.10-1.20 [facility] Comment on above: Performed By: #### C P, CDP #### [facility] [address] [place], [place] [id number] Bilingual Teacher Assistant: Willy Henson MD Monocytes/100 WBC (Bld) 8 % Normal 3-12 [facility] Comment on above: Performed By: #### C P, CDP #### [facility] [address] [place], [place] 2542183 Bilingual Teacher Assistant: Willy Henson MD Neutrophil (Seg) 52 % Normal 36-65 [facility] Comment on above: Performed By: #### C P, CDP #### [facility] [address] [place], [place] [id number] Bilingual Teacher Assistant: Willy Henson MD NRBC Automated 0.0 per 100 WBC Normal 0.0 [facility] Comment on above: Performed By: #### C P, CDP #### [facility] [address] [place], [place] [id number] Bilingual Teacher Assistant: Willy Henson MD Platelet Count See Reflexed IPF Result Normal 138-453 [facility] Comment on above: Performed By: #### C P, CDP #### [facility] [address] [place], [place] 0424483 Bilingual Teacher Assistant: Willy Hensno MD RBC (Bld) [#/Vol] 3.71 10*6/uL Low 3.95-5.11 [facility] Comment on above: Performed By: #### C P, CDP #### [address] [place], [place] [id number] Bilingual Teacher Assistant: Willy Henson MD WBC (Bld) [#/Vol] 11.6 10*3/uL High 3.5-11.3 [facility] Comment on above: Performed By: #### C P, CDP #### [address] [place], [place] 3581783 Bilingual Teacher Assistant: Willy Henson MD Comp Metabolic Profon 2023 Albumin [Mass/Vol] 3.5 g/dL Normal 3.5-5.2 [facility] Comment on above: Performed By: #### C P, CDP #### [facility] [address] [place] [address] Bilingual Teacher Assistant: Willy Henson MD Albumin/Glob Ratio 1.8 Normal 1.0-2.5 [facility] Comment on above: Performed By: #### C P, CDP #### [facility] [address] [place], [place] 6080683 Bilingual Teacher Assistant: Willy Henson MD Alkaline Phos 85 U/L Normal 35-104 [facility] Comment on above: Performed By: #### C P, CDP #### [facility] [address] [place], [place] 2922183 Bilingual Teacher Assistant: Willy Henson MD ALT [Catalytic activity/Vol] 17 U/L Normal 5-33 [facility] Comment on above: Performed By: #### C P, CDP #### [facility] [address] [place], [place] 3104483 Bilingual Teacher Assistant: Willy Henson MD Anion gap [Moles/Vol] 6 mmol/L Low 9-17 [facility] Comment on above: Performed By: #### C P, CDP #### [facility] [address] [place], [place] [phone] Bilingual Teacher Assistant: Willy Henson MD AST [Catalytic activity/Vol] 16 U/L Normal <32 [facility] Comment on above: Performed By: #### C P, CDP #### [facility] [address] [place], [place] 9009583 Bilingual Teacher Assistant: Willy Henson MD Bilirubin [Mass/Vol] 0.5 mg/dL Normal 0.3-1.2 [facility] Comment on above: Performed By: #### C P, CDP #### [facility] [address] [place], [place] [id number] Bilingual Teacher Assistant: Willy Henson MD BUN/CRE Ratio 18 Normal 9-20 [facility] Comment on above: Performed By: #### C P, CDP #### [facility] [address] [place], [place] [id number] Bilingual Teacher Assistant: Willy Henson MD Calcium [Mass/Vol] 8.6 mg/dL Normal 8.6-10.4 [facility] Comment on above: Performed By: #### C P, CDP #### [facility] [address] [place] [address] Bilingual Teacher Assistant: Willy Henson MD Chloride [Moles/Vol] 108 mmol/L High 98-107 [facility] Comment on above: Performed By: #### C P, CDP #### [facility] [address] [place] [address] Bilingual Teacher Assistant: Willy Henson MD CO2 [Moles/Vol] 24 mmol/L Normal 20-31 [facility] Comment on above: Performed By: #### C P, CDP #### [facility] [address] [place] [address] Bilingual Teacher Assistant: Willy Henson MD Creatinine [Mass/Vol] 0.6 mg/dL Normal 0.5-0.9 [facility] Comment on above: Performed By: #### C P, CDP #### [facility] [address] [place] [address] Bilingual Teacher Assistant: Willy Henson MD GFR/1.73 sq M.predicted among non-blacks MDRD (S/P/Bld) [Vol rate/Area] mL/min/{1.73_m2} Normal >60 [facility] Comment on above: Result Comment: These [...] Performed By: #### C P, CDP #### [facility] [address] [place] [address] Bilingual Teacher Assistant: Willy Henson MD Glucose [Mass/Vol] 135 mg/dL High 70-99 [facility] Comment on above: Performed By: #### C P, CDP #### [facility] [address] [place] [address] Bilingual Teacher Assistant: Willy Henson MD Potassium [Moles/Vol] 4.4 mmol/L Normal 3.7-5.3 [facility] Comment on above: Performed By: #### C P, CDP #### [facility] [address] [place], [place] [id number] Bilingual Teacher Assistant: Willy Henson MD Protein [Mass/Vol] 5.4 g/dL Low 6.4-8.3 [facility] Comment on above: Performed By: #### C P, CDP #### [facility] [address] [place] [address] Bilingual Teacher Assistant: Willy Henson MD Sodium [Moles/Vol] 138 mmol/L Normal 135-144 [facility] Comment on above: Performed By: #### C P, CDP #### [facility] [address] [place], [place] [id number] Bilingual Teacher Assistant: Willy Henson MD Urea nitrogen [Mass/Vol] 11 mg/dL Normal 8-23 [facility] Comment on above: Performed By: #### C P, CDP #### [facility] [address] [place], [place] [id number] Bilingual Teacher Assistant: Willy Henson MD Comprehensive Metabolic Pane [facility] 07-18-2023 Albumin [Mass/Vol] 3.5 g/dL 3.5 - 5.2 g/dL [facility] Albumin/Globulin [Mass ratio] 1.8 {ratio} 1.0 - 2.5 [facility] ALP [Catalytic activity/Vol] 85 U/L 35 - 104 U/L [facility] ALT [Catalytic activity/Vol] 17 U/L 5 - 33 U/L [facility] Anion gap [Moles/Vol] 6 mmol/L Low 9 - 17 mmol/L [facility] AST [Catalytic activity/Vol] 16 U/L NINF - 32 U/L [facility] Bilirubin [Mass/Vol] 0.5 mg/dL 0.3 - 1 .2 mg/dL [facility] Calcium [Mass/Vol] 8.6 mg/dL 8.6 - 10. 4 mg/dL [facility] Chloride [Moles/Vol] 108 mmol/L High 98 - 10 7 mmol/L [facility] CO2 [Moles/Vol] 24 mmol/L 20 - 31 mmol/L [facility] Creatinine [Mass/Vol] 0.6 mg/dL 0.5 - 0.9 mg/dL [facility] Est, Glom Filt Rate - [facility] Comment on above: These results are [...] 135 mg/dL High 70 - 99 mg/dL [facility] Interpretation and review of laboratory results Abnormal [facility] Potassium [Moles/Vol] 4.4 mmol/L 3.7 - 5.3 mmol/L [facility] Protein [Mass/Vol] 5.4 g/dL Low 6.4 - 8.3 g/dL [facility] Sodium [Moles/Vol] 138 mmol/L 135 - 144 mmol/L [facility] Urea nitrogen [Mass/Vol] 11 mg/dL 8 - 23 mg/dL [facility] Urea nitrogen/Creatinine [Mass ratio] 18 mg/mg 9 - 20 [facility] Surgical Pathology Reporton 07-17-2023 Surgical Pathology Report (NOTE) Path Number: [id number] -- Diagnosis -- UMBILICAL TISSUE/HERNIA, REPAIR:-FIBROMEMBRANE OUS [...] x 2.5 cm. No lesions are identified. Bag Bundler sections 1c. tm Nimco Wilfredo/mj:07/18/2023 Microscopic Description Microscopic examination performed. Processing Lab: [address] [address] Interpretation Performed at [address] [address] SURGICAL PATHOLOGY CONSULTATION Patient Name: MICHEAL [facility] Rec: [id number] [facility] ANATOMIC PATHOLOGY [address] [facility]. [place], [place] [address] Normal [facility] Basic Metabolic Profon 06-21 Anion gap [Moles/Vol] 8 mmol/L Low 9-17 [facility] Comment on above: Performed By: #### C BRITTANY, BMP ####[facility] Alk[address] [place], [place] 897[address] lab Director: Willy Henson MD BUN/CRE Ratio 27 High 9-20 [facility] Comment on above: Performed By: #### C DP, BMP ####[facility] [address] [place], [place] 9[address] lab Director: Willy Henson MD Calcium [Mass/Vol] 9.0 mg/dL Normal 8.6-10.4 [facility] Comment on above: Performed By: #### C DP, BMP ####[facility] [address] [place], [place] [address] lab Director: Willy Henson MD Chloride [Moles/Vol] 108 mmol/L High 98-107 [facility] Comment on above: Performed By: #### C DP, BMP ####[facility] [address] [place] [address] Lab Director: Willy Henson MD CO2 [Moles/Vol] 26 mmol/L Normal 20-31 [facility] Comment on above: Performed By: #### C DP, BMP ####[facility] Qrn4013 [facility] [place] [address] Lab Director: Willy Henson MD Creatinine [Mass/Vol] 0.7 mg/dL Normal 0.5-0.9 [facility] Comment on above: Performed By: #### C DP, BMP ####[facility] Can[address] [place] [address] Lab Director: Willy Henson MD GFR/1.73 sq M.predicted among non-blacks MDRD (S/P/Bld) [Vol rate/Area] 87 mL/min/{1.73_m2} Normal >60 [facility] Comment on above: Result Comment: These [...] secretion. Performed By: #### C DP, BMP ####[facility] [address] [place] [address] Lab Director: Willy Henson MD Glucose [Mass/Vol] 101 mg/dL High 70-99 [facility] Comment on above: Performed By: #### C DP, BMP ####[facility] Syu[address] [facility] [place] [address] Lab Director: Willy Henson MD Potassium [Moles/Vol] 4.1 mmol/L Normal 3.7-5.3 [facility] Comment on above: Performed By: #### C DP, BMP ####[facility] [address] [place] [address] Lab Director: Willy Henson MD Sodium [Moles/Vol] 142 mmol/L Normal 135-144 [facility] Comment on above: Performed By: #### C DP, BMP ####[facility] [address] [place], [place] [address])[phone] Director: Willy Henson MD Urea nitrogen [Mass/Vol] 19 mg/dL Normal 8-23 [facility] Comment on above: Performed By: #### C DP, BMP ####[facility] Iuz[address] [facility], [place] [address])[phone] Director: Willy Henson MD CBC with Diffon 06-21-2023 Abs. Basophil 0.00 k/uL Normal 0.00-0.20 [facility] Comment on above: Performed By: #### C DP, BMP ####[facility] Hdr[address] [place] [address])[phone] Director: Willy Henson MD Abs.Imm.Granulocyte 0.00 k/uL Normal 0.00-0.30 [facility] Comment on above: Performed By: #### C DP, BMP ####[facility] Psg[address] [place] [address])[phone] Director: Willy Henson MD Abs.Neutrophil (Seg) 6.72 k/uL Normal 2.5-7.0 [facility] Comment on above: Performed By: #### C DP, BMP ####[facility] [address] [facility] [place] [address])[phone] Director: Willy Henson MD Basophils/100 WBC (Bld) 0 % Normal 0-2 [facility] Comment on above: Performed By: #### C DP, BMP ####[facility] Xai[address] [facility], [place] [address] Lab Director: Willy Henson MD Eosinophils (Bld) [#/Vol] 0.14 10*3/uL Normal 0.00-0.40 [facility] Comment on above: Performed By: #### C DP, BMP ####[facility] [address] [place], [place] [phone] Director: Willy Henson MD Eosinophils/100 WBC (Bld) 1 % Normal 0-5 [facility] Comment on above: Performed By: #### C DP, BMP ####[facility] [address] [facility], [place] [phone] Director: Willy Henson MD Immature granulocytes/100 WBC (Bld) 0 % Normal 0-5 [facility] Comment on above: Performed By: #### C DP, BMP ####[facility] Mkp7810 [facility], [place] [phone] Director: Willy Henson MD Lymphocytes (Bld) [#/Vol] 6.16 10*3/uL High 1.00-4.80 [facility] Comment on above: Performed By: #### C DP, BMP ####[facility] [address] [facility], [facility] Lab Director: Willy Henson MD Lymphocytes/100 WBC (Bld) 44 % High 15-40 [facility] Comment on above: Performed By: #### C DP, BMP ####[facility] Ubl[address] RdDale General Hospitalard, [facility] Lab Director: Willy Henson MD Monocytes (Bld) [#/Vol] 0.98 10*3/uL Normal 0.00-1.00 [facility] Comment on above: Performed By: #### C DP, BMP ####[facility] Aaj[address] [facility], [facility]90[phone] Director: Willy Henson MD Monocytes/100 WBC (Bld) 7 % Normal 4-8 [facility] Comment on above: Performed By: #### C DP, BMP ####[facility] Cjg7845 [facility], [place] [phone] Director: Willy Henson MD Morphology Ki (Bld) [Interp] Scanned to verify automated differential. Normal [facility] Comment on above: Performed By: #### C DP, BMP ####[facility] Mfg[address]261 [facility] [address] Lab Director: Willy Henson MD Neutrophil (Seg) 48 % Normal 47-75 [facility] Comment on above: Performed By: #### C DP, BMP ####[facility] Zbu3401 [facility] [address] Lab Director: Willy Henson MD Erythrocyte distribution width (RBC) [Ratio] 13.0 % Normal 12.1-15.2 [facility] Comment on above: Performed By: #### C DP, BMP ####[facility] Ekk[address] [place] [address] Lab Director: Willy Henson MD Hematocrit (Bld) [Volume fraction] 31.3 % Low 36.0-46.0 [facility] Comment on above: Performed By: #### C DP, BMP ####[facility] Qob8364 [facility], [place] [phone] Director: Willy Henson MD Hemoglobin (Bld) [Mass/Vol] 10.2 g/dL Low 12.0-16.0 [facility] Comment on above: Performed By: #### C DP, BMP ####[facility] Afx47[address] [place], [place] [phone] Director: Willy Henson MD MCH (RBC) [Entitic mass] 29.5 pg Normal 26.0-34.0 [facility] Comment on above: Performed By: #### C DP, BMP ####[facility] [address]ae[address] [place] [address] Lab Director: Willy Henson MD MCHC (RBC) [Mass/Vol] 32.6 g/dL Normal 31.0-37.0 [facility] Comment on above: Performed By: #### C DP, BMP ####[facility] Snw2840 [facility] Centerharleen [place] [address] Lab Director: Willy Henson MD MCV (RBC) [Entitic vol] 90.5 fL Normal 80.0-100.0 [facility] Comment on above: Performed By: #### C DP, BMP ####[facility] Eyo6589 [facility] [place] [address] Lab Director: Willy Henson MD Platelet mean volume (Bld) [Entitic vol] 11.1 fL Normal 6.0-12.0 [facility] Comment on above: Performed By: #### C DP, BMP ####[facility] Jqs9708 [place] [address] Lab Director: Willy Henson MD Platelets (Bld) [#/Vol] 139 10*3/uL Low 140-450 [facility] Comment on above: Performed By: #### C DP, BMP ####[facility] Gwn0266 [facility] [place] [address] Lab Director: Willy Henson MD RBC (Bld) [#/Vol] 3.46 10*6/uL Low 4.00-5.20 [facility] Comment on above: Performed By: #### C DP, BMP ####[facility] Wgi9277 [facility] Centerharleen [place] [address] Lab Director: Willy Henson MD WBC (Bld) [#/Vol] 14.0 10*3/uL High 3.5-11.0 [facility] Comment on above: Performed By: #### C DP, BMP ####[facility] Giw[address] [place], [place] 058[address]90 Lab Director: Willy Henson MD Basic Metab w/rfx MGon 06-20 Anion gap [Moles/Vol] 8 mmol/L Low 9-17 [facility] Comment on above: Performed By: #### L IVP, BMPX, CDP #### [facility] [address] [place], [place] [id number] Bilingual Teacher Assistant: Willy Henson MD BUN/CRE Ratio 27 High 9-20 [facility] Comment on above: Performed By: #### L IVP, BMPX, CDP #### [facility] [address] [place], [place] 3512[address] Bilingual Teacher Assistant: Willy Henson MD Calcium [Mass/Vol] 9.0 mg/dL Normal 8.6-10.4 [facility] Comment on above: Performed By: #### L IVP, BMPX, CDP #### [facility] [address] [place], [place] [id number] Bilingual Teacher Assistant: Wlily Henson MD Chloride [Moles/Vol] 105 mmol/L Normal 98-107 [facility] Comment on above: Performed By: #### L IVP, BMPX, CDP #### [facility] [address] [place], [place] 24[address] Bilingual Teacher Assistant: Willy Henson MD CO2 [Moles/Vol] 24 mmol/L Normal 20-31 [facility] Comment on above: Performed By: #### L IVP, BMPX, CDP #### [facility] [address] [place], [place] 6486[address] Bilingual Teacher Assistant: Willy Henson MD Creatinine [Mass/Vol] 0.6 mg/dL Normal 0.5-0.9 [facility] Comment on above: Performed By: #### L IVP, BMPX, CDP #### [facility] [address] [place] [address] Bilingual Teacher Assistant: Willy Henson MD GFR/1.73 sq M.predicted among non-blacks MDRD (S/P/Bld) [Vol rate/Area] mL/min/{1.73_m2} Normal >60 [facility] Comment on above: Result Comment: These results [...] By: #### L IVP, BMPX, CDP #### [facility] [address] [place] [address] Bilingual Teacher Assistant: Willy Henson MD Glucose [Mass/Vol] 152 mg/dL High 70-99 [facility] Comment on above: Performed By: #### L IVP, BMPX, CDP #### [facility] [address] [place] [address] Bilingual Teacher Assistant: Willy Henson MD Potassium [Moles/Vol] 4.2 mmol/L Normal 3.7-5.3 [facility] Comment on above: Performed By: #### L IVP, BMPX, CDP #### [facility] [address] [place] [address] Bilingual Teacher Assistant: Willy Hneson MD Sodium [Moles/Vol] 137 mmol/L Normal 135-144 [facility] Comment on above: Performed By: #### L IVP, BMPX, CDP #### [facility] [address] [place] [address] Bilingual Teacher Assistant: Willy Henson MD Urea nitrogen [Mass/Vol] 16 mg/dL Normal 8-23 [facility] Comment on above: Performed By: #### L IVP, BMPX, CDP #### [facility] [address] [place] [address] Bilingual Teacher Assistant: Willy Henson MD CBC with Diffon 06-21-2023 Abs. Basophil Normal 0.0-0.2 [facility] Comment on above: Performed By: #### L IVP, BMPX, CDP #### [facility] [address] [place] [address] Bilingual Teacher Assistant: Willy Henson MD Abs. Eosinophil Normal 0.0-0.4 [facility] Comment on above: Performed By: #### L IVP, BMPX, CDP #### [facility] [address] [place] [address] Bilingual Teacher Assistant: Willy Henson MD Abs.Imm.Granulocyte Normal 0.00-0.30 [facility] Comment on above: Performed By: #### L IVP, BMPX, CDP #### [facility] [address] [place] [address] Bilingual Teacher Assistant: Willy Henson MD Abs.Neutrophil (Seg) 14.01 k/uL High 2.5-7.0 [facility] Comment on above: Performed By: #### L IVP, BMPX, CDP #### [facility] [address] [place] [id number] Bilingual Teacher Assistant: Willy Henson MD Basophil Normal 0-2 [facility] Comment on above: Performed By: #### L IVP, BMPX, CDP #### [facility] [address] [place] [id number] Bilingual Teacher Assistant: Willy Henson MD Eosinophil Normal 0-5 [facility] Comment on above: Performed By: #### L IVP, BMPX, CDP #### [facility] [address] [place], [place] 6098[address] Bilingual Teacher Assistant: Willy Henson MD Immature Granulocyte Normal 0 [facility] Comment on above: Performed By: #### L IVP, BMPX, CDP #### [facility] [address] [place], [place] [id number] Bilingual Teacher Assistant: Willy Henson MD Lymphocytes (Bld) [#/Vol] 5.48 10*3/uL High 1.0-4.8 [facility] Comment on above: Performed By: #### L IVP, BMPX, CDP #### [facility] [address] [place] [address] Bilingual Teacher Assistant: Willy Henson MD Lymphocytes/100 WBC (Bld) 27 % Normal 15-40 [facility] Comment on above: Performed By: #### L IVP, BMPX, CDP #### [facility] [address] [place] [address] Bilingual Teacher Assistant: Willy Henson MD Monocytes (Bld) [#/Vol] 0.81 10*3/uL Normal 0.0-1.0 [facility] Comment on above: Performed By: #### L IVP, BMPX, CDP #### [facility] [address] [place] [address] Bilingual Teacher Assistant: Willy Henson MD Monocytes/100 WBC (Bld) 4 % Normal 4-8 [facility] Comment on above: Performed By: #### L IVP, BMPX, CDP #### [facility] [address] [place], [place] [id number] Bilingual Teacher Assistant: Willy Henson MD Morphology Ki (Bld) [Interp] Manual Differential Performed Normal [facility] Comment on above: Performed By: #### L IVP, BMPX, CDP #### [facility] [address] [place], [place] [id number] Bilingual Teacher Assistant: Willy Henson MD Neutrophil (Seg) 69 % Normal 47-75 [facility] Comment on above: Performed By: #### L IVP, BMPX, CDP #### [facility] [address] [place] [address] Bilingual Teacher Assistant: Willy Henson MD Erythrocyte distribution width (RBC) [Ratio] 12.7 % Normal 12.1-15.2 [facility] Comment on above: Performed By: #### L IVP, BMPX, CDP #### [facility] [address] [place] [address] Bilingual Teacher Assistant: Willy Henson MD Hematocrit (Bld) [Volume fraction] 34.7 % Low 36.0-46.0 [facility] Comment on above: Performed By: #### L IVP, BMPX, CDP #### [facility] [address] [place] [address] Bilingual Teacher Assistant: Willy Henson MD Hemoglobin (Bld) [Mass/Vol] 11.4 g/dL Low 12.0-16.0 [facility] Comment on above: Performed By: #### L IVP, BMPX, CDP #### [facility] [address] [place] [address] Bilingual Teacher Assistant: Willy Henson MD MCH (RBC) [Entitic mass] 29.5 pg Normal 26.0-34.0 [facility] Comment on above: Performed By: #### L IVP, BMPX, CDP #### [facility] [address] [place] [address] Bilingual Teacher Assistant: Willy Henson MD MCHC (RBC) [Mass/Vol] 32.9 g/dL Normal 31.0-37.0 [facility] Comment on above: Performed By: #### L IVP, BMPX, CDP #### [facility] [address] [place] [address] Bilingual Teacher Assistant: Willy Henson MD MCV (RBC) [Entitic vol] 89.7 fL Normal 80.0-100.0 [facility] Comment on above: Performed By: #### L IVP, BMPX, CDP #### [facility] [address] [place], [place] [id number] (180) Bilingual Teacher Assistant: Willy Henson MD Platelet mean volume (Bld) [Entitic vol] 11.2 fL Normal 6.0-12.0 [facility] Comment on above: Performed By: #### L IVP, BMPX, CDP #### [facility] [address] [place], [place] 9043790 Bilingual Teacher Assistant: Willy Henson MD Platelets (Bld) [#/Vol] 146 10*3/uL Normal 140-450 [facility] Comment on above: Performed By: #### L IVP, BMPX, CDP #### [facility] [address] [place], [place] 5861290 Bilingual Teacher Assistant: Willy Henson MD RBC (Bld) [#/Vol] 3.87 10*6/uL Low 4.00-5.20 [facility] Comment on above: Performed By: #### L IVP, BMPX, CDP #### [facility] [address] [place], [place] [id number] Bilingual Teacher Assistant: Willy Henson MD WBC (Bld) [#/Vol] 20.3 10*3/uL Critically high 3.5-11.0 [facility] Comment on above: Performed By: #### L IVP, BMPX, CDP #### [facility] [address] [place], [place] [id number] Bilingual Teacher Assistant: Willy Henson MD Liver Profileon 06-21-2023 Albumin [Mass/Vol] 3.6 g/dL Normal 3.5-5.2 [facility] Comment on above: Performed By: #### L IVP, BMPX, CDP #### [facility] [address] [place], [place] [id number] Bilingual Teacher Assistant: Willy Henson MD Alkaline Phos 91 U/L Normal 35-104 [facility] Comment on above: Performed By: #### L IVP, BMPX, CDP #### [facility] [address] [place] [address] Bilingual Teacher Assistant: Willy Henson MD ALT [Catalytic activity/Vol] 55 U/L High 5-33 [facility] Comment on above: Performed By: #### L IVP, BMPX, CDP #### [facility] [address] [place] [address] Bilingual Teacher Assistant: Willy Henson MD AST [Catalytic activity/Vol] 53 U/L High <32 [facility] Comment on above: Performed By: #### L IVP, BMPX, CDP #### [facility] [address] [place], [place] 3406190 Bilingual Teacher Assistant: Willy Henson MD Bilirubin [Mass/Vol] 0.7 mg/dL Normal 0.3-1.2 [facility] Comment on above: Performed By: #### L IVP, BMPX, CDP #### [facility] [address] [place], [place] [id number] Bilingual Teacher Assistant: Willy Henson MD Bilirubin, Indirect Can not be calculated Normal 0.0-1 .0 [facility] Comment on above: Performed By: #### L IVP, BMPX, CDP #### [facility] [address] [place], [place] [id number] Bilingual Teacher Assistant: Willy Henson MD Bilirubin.indirect [Mass/Vol] mg/dL Normal <0.3 [facility] Comment on above: Performed By: #### L IVP, BMPX, CDP #### [facility] [address] [place], [place] 9976590 Bilingual Teacher Assistant: Willy Henson MD Protein [Mass/Vol] 5.9 g/dL Low 6.4-8.3 [facility] Comment on above: Performed By: #### L IVP, BMPX, CDP #### [facility] [address] [place] [id number] Bilingual Teacher Assistant: Willy Henson MD APTTon 06-20-2023 aPTT Coag (Bld) [Time] 25.8 s Normal 23.9-33.8 [facility] Comment on above: Result Comment: IV Heparin Therapy Range: 62.0-94.0 Performed By: #### P TT, PT ####[facility] [address] [place] [address] Lab Director: Willy Henson MD CBC with Diffon 06-20-2023 Abs. Basophil Normal 0.0-0.2 [facility] Comment on above: Performed By: #### L DIDI BONILLA, CP #### [facility] [address] [place] [address] Bilingual Teacher Assistant: Willy Henson MD Abs. Eosinophil Normal 0.0-0.4 [facility] Comment on above: Performed By: #### L DIDI BONILLA, CP #### [facility] [address] [place] [address] Bilingual Teacher Assistant: Willy Henson MD Abs.Imm.Granulocyte Normal 0.00-0.30 [facility] Comment on above: Performed By: #### L ACTDIDI SARAH, CP #### [facility] [address] [place] [address] Bilingual Teacher Assistant: Willy Henson MD Abs.Neutrophil (Seg) 12.04 k/uL High 2.5-7.0 [facility] Comment on above: Performed By: #### L DIDI BONILLA, CP #### [facility] [address] [place] [address] Bilingual Teacher Assistant: Willy Henson MD Basophil Normal 0-2 [facility] Comment on above: Performed By: #### L DIDI BONILLA, CP #### [facility] [address] [place], [place] [id number] Bilingual Teacher Assistant: Willy Henson MD Eosinophil Normal 0-5 [facility] Comment on above: Performed By: #### L DIDI BONILLA, CP #### [facility] [address] [place], [place] [id number] Bilingual Teacher Assistant: Willy Henson MD Immature Granulocyte Normal 0 [facility] Comment on above: Performed By: #### L DIDI BONILLA, CP #### [facility] [address] [place] [address] Bilingual Teacher Assistant: Willy Henson MD Lymphocytes (Bld) [#/Vol] 5.13 10*3/uL High 1.0-4.8 [facility] Comment on above: Performed By: #### L DIDI BONILLA, CP #### [facility] [address] [place], [place] [id number] Bilingual Teacher Assistant: Willy Henson MD Lymphocytes/100 WBC (Bld) 29 % Normal 15-40 [facility] Comment on above: Performed By: #### L DIDI BONILLA, CP #### [facility] [address] [place], [place] [id number] Bilingual Teacher Assistant: Willy Henson MD Monocytes (Bld) [#/Vol] 0.53 10*3/uL Normal 0.0-1.0 [facility] Comment on above: Performed By: #### L DIDI BONILLA, CP #### [facility] [address] [place] [address] Bilingual Teacher Assistant: Willy Henson MD Monocytes/100 WBC (Bld) 3 % Low 4-8 [facility] Comment on above: Performed By: #### L DIDI BONILLA, CP #### [facility] [address] [place], [place] [phone] Bilingual Teacher Assistant: Wilyl Henson MD Morphology Ki (Bld) [Interp] Manual Differential Performed Normal [facility] Comment on above: Performed By: #### L DIDI BONILLA, CP #### [facility] [address] [place], [place] [phone] Bilingual Teacher Assistant: Willy Henson MD Neutrophil (Seg) 68 % Normal 47-75 [facility] Comment on above: Performed By: #### L DIDI BONILLA, CP #### [facility] [address] [place] [address] Bilingual Teacher Assistant: Willy Henson MD Erythrocyte distribution width (RBC) [Ratio] 12.5 % Normal 12.1-15.2 [facility] Comment on above: Performed By: #### L DIDI BONILLA, CP #### [facility] [address] [place] [phone] Bilingual Teacher Assistant: Willy Henson MD Hematocrit (Bld) [Volume fraction] 37.1 % Normal 36.0-46.0 [facility] Comment on above: Performed By: #### L DIDI BONILLA, CP #### [facility] [address] [place] [id number] Bilingual Teacher Assistant: Willy Henson MD Hemoglobin (Bld) [Mass/Vol] 12.2 g/dL Normal 12.0-16.0 [facility] Comment on above: Performed By: #### L DIDI BONILLA, CP #### [facility] [address] [place] [address] Bilingual Teacher Assistant: Willy Henson MD MCH (RBC) [Entitic mass] 29.5 pg Normal 26.0-34.0 [facility] Comment on above: Performed By: #### L DIDI BONILLA, CP #### [facility] [address] [place] [address] Bilingual Teacher Assistant: Willy Henson MD MCHC (RBC) [Mass/Vol] 32.9 g/dL Normal 31.0-37.0 [facility] Comment on above: Performed By: #### L DIDI BONILLA, CP #### [facility] [address] [place] [address] Bilingual Teacher Assistant: Willy Henson MD MCV (RBC) [Entitic vol] 89.6 fL Normal 80.0-100.0 [facility] Comment on above: Performed By: #### L DIDI BONILLA, CP #### [facility] [address] [place] [address] Bilingual Teacher Assistant: Willy Henson MD Platelet mean volume (Bld) [Entitic vol] 10.9 fL Normal 6.0-12.0 [facility] Comment on above: Performed By: #### L DIDI BONILLA, CP #### [facility] [address] [place] [address] Bilingual Teacher Assistant: Willy Henson MD Platelets (Bld) [#/Vol] 147 10*3/uL Normal 140-450 [facility] Comment on above: Performed By: #### L DIDI BONILLA, CP #### [facility] [address] [place] [address] Bilingual Teacher Assistant: Willy Henson MD RBC (Bld) [#/Vol] 4.14 10*6/uL Normal 4.00-5.20 [facility] Comment on above: Performed By: #### L DIDI BONILLA, CP #### [facility] [address] [place] [address] Bilingual Teacher Assistant: Willy Henson MD WBC (Bld) [#/Vol] 17.7 10*3/uL High 3.5-11.0 [facility] Comment on above: Performed By: #### L DIDI BONILLA, CP #### [facility] [address] [place] [address] Bilingual Teacher Assistant: Willy Henson MD Abs. Atypical Lymphs 0.29 k/uL Normal 0.0-1.0 [facility] Comment on above: Performed By: #### C DP, CP, TROPI ####[facility] [address] [place] [address] Lab Director: Willy Henson MD Abs. Basophil Normal 0.0-0.2 [facility] Comment on above: Performed By: #### C DP, CP, TROPI ####[facility] [address] [place] [address] Lab Director: Willy Henson MD Abs.Imm.Granulocyte Normal 0.00-0.30 [facility] Comment on above: Performed By: #### C DP, CP, TROPI ####[facility] [address] [place] [id number] Lab Director: Willy Henson MD Abs.Neutrophil (Seg) 6.15 k/uL Normal 2.5-7.0 [facility] Comment on above: Performed By: #### C DP, CP, TROPI ####[facility] [address] [place] [address] Lab Director: Willy Henson MD Atypical Lymphs 2 % Normal [facility] Comment on above: Performed By: #### C DP, CP, TROPI ####[facility] [address] [place] [address] Lab Director: Willy Henson MD Basophil Normal 0-2 [facility] Comment on above: Performed By: #### C DP, CP, TROPI ####[facility] Tfm[address] [place] [address] Lab Director: Willy Henson MD Eosinophils (Bld) [#/Vol] 0.29 10*3/uL Normal 0.0-0.4 [facility] Comment on above: Performed By: #### C ABEL SOTO, TROPI ####[facility] Juy[address] [facility] [place] [address] Lab Director: Willy Henson MD Eosinophils/100 WBC (Bld) 2 % Normal 0-5 [facility] Comment on above: Performed By: #### C BRITTANY CP, TROPI ####[facility] Ggt2466 [facility], [facility] Lab Director: Willy Henson MD Immature Granulocyte Normal 0 [facility] Comment on above: Performed By: #### C ABEL SOTO, TROPI ####[facility] Rhx[address]61 [facility], [place] [address] Lab Director: Willy Henson MD Lymphocytes (Bld) [#/Vol] 6.43 10*3/uL High 1.0-4.8 [facility] Comment on above: Performed By: #### C ABEL SOTO, TROPI ####[facility] Xcd0136 [facility], [place] [address] Lab Director: Willy Henson MD Lymphocytes/100 WBC (Bld) 45 % High 15-40 [facility] Comment on above: Performed By: #### C ABEL SOTO, TROPI ####[facility] Edg2544 [facility], [facility] Lab Director: Willy Henson MD Monocytes (Bld) [#/Vol] 1.14 10*3/uL High 0.0-1.0 [facility] Comment on above: Performed By: #### C BRITTANY CP, TROPI ####[facility] Lyu[address] [facility] [address] Lab Director: Willy Henson MD Monocytes/100 WBC (Bld) 8 % Normal 4-8 [facility] Comment on above: Performed By: #### C DP, CP, TROPI ####[facility] Qah[address]33 [facility] [address] Lab Director: Willy Henson MD Morphology Ki (Bld) [Interp] Manual Differential Performed Normal [facility] Comment on above: Performed By: #### C DP, CP, TROPI ####[facility] Dry6847 [facility], [facility] Lab Director: Willy Henson MD Neutrophil (Seg) 43 % Low 47-75 [facility] Comment on above: Performed By: #### C DP, CP, TROPI ####[facility] Fdj7376 [facility], [place] [address] lab Director: Willy Henson MD Erythrocyte distribution width (RBC) [Ratio] 12.7 % Normal 12.1-15.2 [facility] Comment on above: Performed By: #### C DP, CP, TROPI ####[facility] Mmw8847 [facility] [address] Lab Director: Willy Henson MD Hematocrit (Bld) [Volume fraction] 38.0 % Normal 36.0-46.0 [facility] Comment on above: Performed By: #### C DP, CP, TROPI ####[facility] Jni6757 [facility], [facility] Lab Director: Willy Henson MD Hemoglobin (Bld) [Mass/Vol] 12.5 g/dL Normal 12.0-16.0 [facility] Comment on above: Performed By: #### C DP, CP, TROPI ####[facility] Cop[address] [facility] [address] Lab Director: Willy Henson MD MCH (RBC) [Entitic mass] 29.3 pg Normal 26.0-34.0 [facility] Comment on above: Performed By: #### C DP, CP, TROPI ####[facility] [address] [place] [address] Lab Director: Willy Henson MD MCHC (RBC) [Mass/Vol] 32.9 g/dL Normal 31.0-37.0 [facility] Comment on above: Performed By: #### C DP, CP, TROPI ####[facility] [address] [place] [address] Lab Director: Willy Henson MD MCV (RBC) [Entitic vol] 89.2 fL Normal 80.0-100.0 [facility] Comment on above: Performed By: #### C DP, CP, TROPI ####[facility] [address] [place] [address] Lab Director: Willy Henson MD Platelet mean volume (Bld) [Entitic vol] 11.0 fL Normal 6.0-12.0 [facility] Comment on above: Performed By: #### C DP, CP, TROPI ####[facility] [address] [place] [address] Lab Director: Willy Henson MD Platelets (Bld) [#/Vol] 159 10*3/uL Normal 140-450 [facility] Comment on above: Performed By: #### C DP, CP, TROPI ####[facility] [address] [place] [address] Lab Director: Willy Henson MD RBC (Bld) [#/Vol] 4.26 10*6/uL Normal 4.00-5.20 [facility] Comment on above: Performed By: #### C DP, CP, TROPI ####[facility] Zvt[address] [place] [address] Lab Director: Willy Henson MD WBC (Bld) [#/Vol] 14.3 10*3/uL High 3.5-11.0 [facility] Comment on above: Performed By: #### C ABEL SOTO, CAROLYNE ####[facility] [address] [place] [address] lab Director: Willy Henson MD CT ABDOMEN PELVIS [...] Neptali Johnson MD 06/20/23 Final result Normal [facility] Comp Metabolic Profon 2023 Albumin [Mass/Vol] 4.3 g/dL Normal 3.5-5.2 [facility] Comment on above: Performed By: #### L DIDI BONILLA, CP #### [facility] [address] [place] [address] Bilingual Teacher Assistant: Willy Henson MD Alkaline Phos 109 U/L High 35-104 [facility] Comment on above: Performed By: #### L DIDI BONILLA, CP #### [facility] [address] [place] [address] Bilingual Teacher Assistant: Willy Henson MD ALT [Catalytic activity/Vol] 20 U/L Normal 5-33 [facility] Comment on above: Performed By: #### L DIDI BONILLA, CP #### [facility] [address] [place] [address] Bilingual Teacher Assistant: Willy Henson MD Anion gap [Moles/Vol] 10 mmol/L Normal 9-17 [facility] Comment on above: Performed By: #### L DIDI BONILLA, CP #### [facility] [address] [place] [address] Bilingual Teacher Assistant: Willy Henson MD AST [Catalytic activity/Vol] 20 U/L Normal <32 [facility] Comment on above: Performed By: #### L DIDI BONILLA, CP #### [facility] [address] [place] [address] Bilingual Teacher Assistant: Willy Henson MD Bilirubin [Mass/Vol] 0.2 mg/dL Low 0.3-1.2 [facility] Comment on above: Performed By: #### L DIDI BONILLA, CP #### [facility] [address] [place], [place] [id number] Bilingual Teacher Assistant: Willy Henson MD BUN/CRE Ratio 26 High 9-20 [facility] Comment on above: Performed By: #### L DIDI BONILLA, CP #### [facility] [address] [place], [place] [id number] Bilingual Teacher Assistant: Willy Henson MD Calcium [Mass/Vol] 8.8 mg/dL Normal 8.6-10.4 [facility] Comment on above: Performed By: #### L DIDI BONILLA, CP #### [facility] [address] [place], [place] [id number] Bilingual Teacher Assistant: Willy Henson MD Chloride [Moles/Vol] 99 mmol/L Normal 98-107 [facility] Comment on above: Performed By: #### L DIDI BONILLA, CP #### [facility] [address] [place], [place] [id number] Bilingual Teacher Assistant: Willy Henson MD CO2 [Moles/Vol] 24 mmol/L Normal 20-31 [facility] Comment on above: Performed By: #### L DIDI BONILLA, CP #### [facility] [address] [place], [place] [id number] Bilingual Teacher Assistant: Willy Henson MD Creatinine [Mass/Vol] 0.8 mg/dL Normal 0.5-0.9 [facility] Comment on above: Performed By: #### L DIDI BONILLA, CP #### [facility] [address] [place], [place] [id number] Bilingual Teacher Assistant: Willy Henson MD GFR/1.73 sq M.predicted among non-blacks MDRD (S/P/Bld) [Vol rate/Area] 74 mL/min/{1.73_m2} Normal >60 [facility] Comment on above: Result Comment: These [...] By: #### L DIDI BONILLA, CP #### [facility] [address] [place] [address] Bilingual Teacher Assistant: Willy Henson MD Glucose [Mass/Vol] 155 mg/dL High 70-99 [facility] Comment on above: Performed By: #### L DIDI BONILLA, CP #### [facility] [address] [place] [address] Bilingual Teacher Assistant: Willy Henson MD Potassium [Moles/Vol] 4.0 mmol/L Normal 3.7-5.3 [facility] Comment on above: Performed By: #### L DIDI BONILLA, CP #### [facility] [address] [place] [address] Bilingual Teacher Assistant: Willy Henson MD Protein [Mass/Vol] 6.6 g/dL Normal 6.4-8.3 [facility] Comment on above: Performed By: #### L DIDI BONILLA, CP #### [facility] [address] [place] [address] Bilingual Teacher Assistant: Willy Henson MD Sodium [Moles/Vol] 133 mmol/L Low 135-144 [facility] Comment on above: Performed By: #### L DIDI BONILLA, CP #### [facility] [address] [place] [address] Bilingual Teacher Assistant: Willy Henson MD Urea nitrogen [Mass/Vol] 21 mg/dL Normal 8-23 [facility] Comment on above: Performed By: #### L DIDI BONILLA, CP #### [facility] [address] [place] [address] Bilingual Teacher Assistant: Willy Henson MD Albumin [Mass/Vol] 4.3 g/dL Normal 3.5-5.2 [facility] Comment on above: Performed By: #### C DP, CP, TROPI ####[facility] [address] [place] [address] Lab Director: Willy Henson MD Alkaline Phos 115 U/L High 35-104 [facility] Comment on above: Performed By: #### C DP, CP, TROPI ####[facility] Ras[address] [place] [address] Lab Director: Willy Henson MD ALT [Catalytic activity/Vol] 19 U/L Normal 5-33 [facility] Comment on above: Performed By: #### C DP, CP, TROPI ####[facility] Imd[address] [place] [phone] Director: Willy Henson MD Anion gap [Moles/Vol] 11 mmol/L Normal 9-17 [facility] Comment on above: Performed By: #### C DP, CP, TROPI ####[facility] Jin[address] [place] [phone] Director: Willy Henson MD AST [Catalytic activity/Vol] 19 U/L Normal <32 [facility] Comment on above: Performed By: #### C DP, CP, TROPI ####[facility] Sxi[address] [place] [phone] Director: Willy Henson MD Bilirubin [Mass/Vol] 0.3 mg/dL Normal 0.3-1.2 [facility] Comment on above: Performed By: #### C DP, CP, TROPI ####[facility] Asz[address]86 [place] [address] Lab Director: Willy Henson MD BUN/CRE Ratio 23 High 9-20 [facility] Comment on above: Performed By: #### C DP, CP, TROPI ####[facility] Hlh[address]903 [place] [address] Lab Director: Willy Henson MD Calcium [Mass/Vol] 9.8 mg/dL Normal 8.6-10.4 [facility] Comment on above: Performed By: #### C DP CP, TROPI ####[facility] Wgv2660 [place] [address] Lab Director: Willy Henson MD Chloride [Moles/Vol] 101 mmol/L Normal 98-107 [facility] Comment on above: Performed By: #### C BRITTANY CP, TROPI ####[facility] Dwn3294 [place] [address] Lab Director: Willy Henson MD CO2 [Moles/Vol] 26 mmol/L Normal 20-31 [facility] Comment on above: Performed By: #### C ABEL SOTO, TROPI ####[facility] Ytw3549 [place] [address] Lab Director: Willy Henson MD Creatinine [Mass/Vol] 1.2 mg/dL High 0.5-0.9 [facility] Comment on above: Performed By: #### C BRITTANY CP, TROPI ####[facility] Anf[address] [place] [address] Lab Director: Willy Henson MD GFR/1.73 sq M.predicted among non-blacks MDRD (S/P/Bld) [Vol rate/Area] 45 mL/min/{1.73_m2} Low >60 [facility] Comment on above: Result Comment: These [...] tubular secretion. Performed By: #### C DP, CP, TROPI ####[facility] Uvy[address] [place] [address] Lab Director: Willy Henson MD Glucose [Mass/Vol] 130 mg/dL High 70-99 [facility] Comment on above: Performed By: #### C DP, CP, TROPI ####[facility] Bag[address] [place], [place] [phone] Director: Willy Henson MD Potassium [Moles/Vol] 3.8 mmol/L Normal 3.7-5.3 [facility] Comment on above: Performed By: #### C DP, CP, TROPI ####[facility] Kns[address] [place] [address] Lab Director: Willy Henson MD Protein [Mass/Vol] 6.8 g/dL Normal 6.4-8.3 [facility] Comment on above: Performed By: #### C DP, CP, TROPI ####[facility] Ekp[address] [place] [phone] Director: Willy Henson MD Sodium [Moles/Vol] 138 mmol/L Normal 135-144 [facility] Comment on above: Performed By: #### C DP, CP, TROPI ####[facility] Xye3354 [place] [address] Lab Director: Willy Henson MD Urea nitrogen [Mass/Vol] 27 mg/dL High 8-23 [facility] Comment on above: Performed By: #### C DP, CP, TROPI ####[facility] Ayd[address] [place] [address] Lab Director: Willy Henson MD D-Dimer Teston 06-20-2023 D-Dimer Test 0.36 ug/mL FEU Normal 0.00-0.59 [facility] Comment on above: Result Comment: When [...] DVT. Performed By: #### D MAGDALENA #### [facility] [address] [place] [address] Bilingual Teacher Assistant: Willy Henson MD Lactic Acidon 06-20-2023 Lactate [Moles/Vol] 1.2 mmol/L Normal 0.5-2.2 [facility] Comment on above: Performed By: #### L ACTIC, CDP, CP #### [facility] [address] [place] [address] Bilingual Teacher Assistant: Willy Henson MD Lipaseon 06-20-2023 Lipase [Catalytic activity/Vol] 24 U/L Normal 13-60 [facility] Comment on above: Performed By: #### L IP #### [facility] [address] [place] [address] Bilingual Teacher Assistant: Willy Henson MD PTon 06-20-2023 INR Coag (PPP) [Relative time] 1.1 {INR} Normal [facility] Comment on above: Result Comment: Therapeutic Range: Moderate Anticoagulant Intensity: INR = 2.0-3.0 High Anticoagulant Intensity: INR = 2.5-3.5 Performed By: #### P TT, PT ####[facility] [address] [place] [address] Lab Director: Willy Henson MD PT Coag (PPP) [Time] 13.8 s Normal 11.5-14.2 [facility] Comment on above: Performed By: #### P TT, PT ####[facility] [address] [place] [address] Lab Director: Willy Henson MD Troponinon 06-20-2023 Troponin, High Sens 6 ng/L Normal 0-14 [facility] Comment on above: Result Comment: High Sensitivity Troponin values cannot be compared with other Troponin methodologies. Performed By: #### C DP, CP, TROPI ####[facility] [address] [place] [address] Lab Director: Willy Henson MD US ABDOMEN LIMITEDon 024 US ABDOMEN LIMITED EXAM: US ABDOMEN LIMITED HISTORY: RUQ pain, question of gallstones on CT. COMPARISON: CT scan abdomen and pelvis 06/20/2023, [facility] abdominal ultrasound 04/04/2023, which showed multiple [...] since this was not present on 04/04/2023 [place] ultrasound). IMPRESSION: The right kidney substantially shadowed by gas without hydronephrosis. Cholelithiasis. Tumefactive sludge versus large gallbladder polyp (less likely since this was not present on 04/04/2023 [facility]). Interpreted by: Joel Osullivan Jr., MD Signed by: Joel Osullivan Jr., MD 06/20/23 Final result Normal [facility] XR CHEST PORTABLEon 06-20-19 XR CHEST PORTABLE [...] Jaelyn Stanley DO 06/20/23 Final result Normal [facility] CHEMISTRYOrdered By: SYSTEM SYSTEM on 04-04-2023 Cholesterol [...] Remisol Chem Office Visiton 11-08-2022 Follow-up visit [id number] Micheal Brice 1940 F Date Provider Department Center 11/08/2022 Raul8-STEVE PEGUERO [facility] Family History Problem Relation Age of Onset Coronary artery disease Mother Other Mother Family Status - Relation Status Age at Mother Level of Service:75977 [place] OFFICE/OUTPATIENT NEW MODERATE MDM 45-59 MINUTES Normal [facility] Vital Signs Date Time Vital Sign Value Performing Clinician Facility 12-09-2024 09:39-0400 Body height 152.4 cm Cuauhtemoc Timmis MD Work Phone: [facility] 12-09-2024 09:39-0400 Body mass index (BMI) [Ratio] 35.74 kg/m2 Cuauhtemoc Jacobo MD Work Phone: [facility] 12-09-2024 09:39-0400 Body weight 83.01 kg Cuauhtemoc Jacobo MD Work Phone: [facility] 12-09-2024 09:39-0400 Diastolic blood pressure 85 mm[Hg] Cuauhtemoc Jacobo MD Work Phone: [facility] 12-09-2024 09:39-0400 Heart rate 57 /min Cuauhtemoc Jacobo MD Work Phone: [facility] 12-09-2024 09:39-0400 Systolic blood pressure 124 mm[Hg] Cuauhtemoc Jacobo MD Work Phone: [facility] 12-04-2024 09:05-0400 Body height 153.7 cm Gaetano Rosen MD Work Phone: [facility] 12-04-2024 09:05-0400 Body mass index (BMI) [Ratio] 35.15 kg/m2 Gaetano Rosen MD Work Phone: [facility] 12-04-2024 09:05-0400 Body weight 83.01 kg Gaetano Rosen MD Work Phone: [facility] 12-04-2024 09:05-0400 Diastolic blood pressure 92 mm[Hg] Gaetano Rosen MD Work Phone: [facility] 12-04-2024 09:05-0400 Heart rate 54 /min Gaetano Rosen MD Work Phone: [facility] 12-04-2024 09:05-0400 Respiratory rate 16 /min Gaetano Rosen MD Work Phone: [facility] 12-04-2024 09:05-0400 SaO2% (BldA) [Mass fraction] 99 % Gaetano Rosen MD Work Phone: [facility] 12-04-2024 09:05-0400 Systolic blood pressure 150 mm[Hg] Gaetano Rosen MD Work Phone: [facility] 10-28-2024 08:25-0400 Body height 157.5 cm Cuauhtemoc Jacobo MD Work Phone: [facility] 10-28-2024 08:25-0400 Body mass index (BMI) [Ratio] 33.84 kg/m2 Cuauhtemoc Jacobo MD Work Phone: [facility] 10-28-2024 08:25-0400 Body weight 83.92 kg Cuauhtemoc Jacobo MD Work Phone: [facility] 10-28-2024 08:25-0400 Diastolic blood pressure 70 mm[Hg] Cuauhtemoc Jacobo MD Work Phone: [facility] 10-28-2024 08:25-0400 Heart rate 82 /min Cuauhtemoc Jacobo MD Work Phone: [facility] 10-28-2024 08:25-0400 Systolic blood pressure 131 mm[Hg] Cuauhtemoc Jacobo MD Work Phone: [facility] 07-28-2024 13:19-0400 Diastolic blood pressure 66 mm[Hg] Ernesto Ramirez MD [facility] 07-28-2024 13:19-0400 Systolic blood pressure 122 mm[Hg] Ernesto Ramirez MD [facility] 08-04-2023 19:02-0400 Body temperature 98.1 [degF] [facility] 01 [facility] [email or web address] 08-04-2023 19:02-0400 Diastolic blood pressure 80 mm[Hg] [facility] [employer] [facility] [employer] 08-04-2023 19:02-0400 Heart rate 95 /min [facility] [employer] 08-04-2023 19:02-0400 Respiratory rate 16 /min [facility] 01 [facility] [email or web address] 08-04-2023 19:02-0400 SaO2% (BldA) [Mass fraction] 96 % [facility] [employer] [facility] [employer] 08-04-2023 19:02-0400 Systolic blood pressure 130 mm[Hg] [facility] 01 [facility] [employer] 08-03-2023 06:29-0400 Body temperature 97 [degF] Michelle Cox MD Work Phone: [facility] [employer] 08-03-2023 06:29-0400 Diastolic blood pressure 69 mm[Hg] Michelle Cox MD Work Phone: [facility] [employer] 08-03-2023 06:29-0400 Heart rate 52 /min Michelle Cox MD Work Phone: [facility] [employer] 08-03-2023 06:29-0400 Respiratory rate 18 /min Michelle Cox MD Work Phone: [facility] [employer] 08-03-2023 06:29-0400 SaO2% (BldA) [Mass fraction] 98 % Michelle Cox MD Work Phone: [facility] [employer] 08-03-2023 06:29-0400 Systolic blood pressure 136 mm[Hg] Michelle Cox MD Work Phone: [facility] [employer] 08-02-2023 03:35-0400 Body mass index (BMI) [Ratio] 36.45 kg/m2 Michelle Cox MD Work Phone: [facility] [employer] 08-02-2023 03:35-0400 Body weight 90.4 kg Michelle Cox MD Work Phone: [facility] [employer] 08-01-2023 07:45-0400 Body height 157.5 cm Michelle Cox MD Work Phone: [facility] [employer] 07-18-2023 13:11-0400 Body temperature 97.59 [degF] Ramon Olea MD Work Phone: [facility] [employer] 07-18-2023 13:11-0400 Diastolic blood pressure 84 mm[Hg] Ramon Olea MD Work Phone: [facility] [employer] 07-18-2023 13:11-0400 Heart rate 65 /min Ramon Olea MD Work Phone: [facility] 07-18-2023 13:11-0400 Respiratory rate 17 /min Ramon Olea MD Work Phone: [facility] 07-18-2023 13:11-0400 SaO2% (BldA) [Mass fraction] 97 % Ramon Olea MD Work Phone: [facility] 07-18-2023 13:11-0400 Systolic blood pressure 118 mm[Hg] Ramon Olea MD Work Phone: [facility] 07-18-2023 07:32-0400 Body height 157.5 cm Ramon Olea MD Work Phone: [facility] 07-18-2023 05:14-0400 Body mass index (BMI) [Ratio] 34.27 kg/m2 Ramon Olea MD Work Phone: [facility] 07-18-2023 05:14-0400 Body weight 85 kg Ramon Olea MD Work Phone: [facility] 05-09-2022 08:07-0500 Body height 157.5 cm Luis Felipe Lopes MD Work Phone: [place] 05-09-2022 08:07-0500 Body mass index (BMI) [Ratio] 37.49 kg/m2 Luis Felipe Lopes MD Work Phone: [place] 05-09-2022 08:07-0500 Body weight 92.99 kg Luis Felipe Lopes MD Work Phone: [place] 04-18-2022 08:32-0500 Body height 157.5 cm Luis Felipe Lopes MD Work Phone: [place] 04-18-2022 08:32-0500 Body mass index (BMI) [Ratio] 37.49 kg/m2 Luis Felipe Lopes MD Work Phone: [place] 04-18-2022 08:32-0500 Body weight 92.99 kg Luis Felipe Lopes MD Work Phone: [place] Encounters Encounter Date Encounter Type Care Provider Facility Start: 04-13-2025 ambulatory PSYCHIATRIC CLINICAL NURSE SPECIALIST Camila Gutierrez ity:[facility] [place] Start: 12-09-2024 End: 12-09-2024 Bamboo flowsheet Cuauhtemoc Jacobo MD Work Phone: [facility] Start: 12-09-2024 End: 12-09-2024 Bamboo flowsheet Cuauhtemoc Jacobo MD Work Phone: [facility] Start: 12-09-2024 End: 12-09-2024 Office outpatient visit 15 minutes Cuauhtemoc Jacobo MD Work Phone: [facility] Comment on above: Thyroid mass (Primar y Dx) Start: 12-09-2024 End: 12-09-2024 ambulatory CUAUHTEMOC JACOBO Not Available Start: 12-08-2024 End: 12-08-2024 Telephone encounter Cuauhtemoc Jacobo MD Work Phone: [facility] Comment on above: blood results Start: 12-04-2024 End: 12-04-2024 Bamboo flowsheet Gaetano Rosen MD Work Phone: [facility] Start: 12-04-2024 End: 12-04-2024 Bamboo flowsheet Gaetano Rosen MD Work Phone: [facility] Start: 12-04-2024 End: 12-04-2024 Office outpatient new 45 minutes Gaetano Rosen MD Work Phone: [facility] Comment on above: Subclinical hyperthy roidism (Primary Dx); Thyroid nodule Start: 12-04-2024 End: 12-04-2024 ambulatory GAETANO ROSEN Not Available Start: 12-03-2024 End: 12-03-2024 ambulatory Alfonso DUDLEY Facility:[facility] Start: 12-03-2024 End: 12-03-2024 Patient encounter procedure Alfonso DUDLEY [facility] Start: 11-21-2024 End: 11-21-2024 ambulatory Camila Eliot Carlos [facility] Start: 11-21-2024 End: 11-21-2024 ambulatory KIA A JIMMIE Facility:[facility] Start: 11-19-2024 End: 11-19-2024 ambulatory Alfonso Dudley [facility] Work Phone: Start: 11-19-2024 End: 11-19-2024 Departed Referred Alfonso Dudley MD FACS -LAB Path Spec [facility] Start: 11-19-2024 End: 11-19-2024 ambulatory Alfonso DUDLEY Facility:[id number] Start: 11-13-2024 End: 11-13-2024 ambulatory Cuauhtemoc Jacobo Jr [facility] Work Phone: Start: 11-13-2024 End: 11-13-2024 Departed Referred CUAUHTEMOC JACOBO MD -LAB Path Spec [facility] Start: 11-13-2024 End: 11-13-2024 ambulatory CUAUHTEMOC JACOBO Facility:[facility] Start: 11-11-2024 End: 11-11-2024 ambulatory KIA A JIMMIE Facility:[facility] Start: 10-29-2024 End: 10-29-2024 ambulatory KIA A JIMMIE Facility:[facility] Start: 10-28-2024 End: 10-28-2024 Bamboo flowsheet Cuauhtemoc Jacobo MD Work Phone: [facility] Start: 10-28-2024 End: 10-28-2024 Paris Jacobo MD Work Phone: [facility] Start: 10-28-2024 End: 10-28-2024 Office outpatient new 45 minutes Cuauhtemoc Jacobo MD Work Phone: [facility] Comment on above: Thyroid mass (Primar y Dx) Start: 10-28-2024 End: 10-28-2024 ambulatory CUAUHTEMOC JACOBO Not Available Start: 10-22-2024 End: 10-22-2024 ambulatory KIA SAMUEL Facility[facility] Start: 10-21-2024 End: 10-21-2024 ambulatory Alfonso DUDLEY Facility:[facility] Start: 10-21-2024 End: 10-21-2024 Patient encounter procedure Alfonso DUDLEY [facility] [place] Start: 10-14-2024 End: 10-14-2024 ambulatory Camila L Cosmo Facility:[facility] Start: 07-28-2024 End: 07-28-2024 Ernesto Ramirez Work Phone: [facility] Start: 07-28-2024 ambulatory Ernesto Ramirez [facility] Start: 07-23-2024 End: 07-23-2024 Arnol Huston Jr Work Phone: [facility] Start: 07-23-2024 ambulatory Arnol Huston Jr [facility] Start: 06-13-2024 End: 06-13-2024 Office outpatient visit 25 minutes Luis Felipe Lopes MD Work Phone: [facility] Comment on above: History of total rig ht knee replacement (Primary Dx); Spinal stenosis, lumbar region, without neurogenic claudication; Primary osteoarthritis of left knee Start: 06-13-2024 End: 06-17-2024 ambulatory CAMILA SEKOU COSMO [facility] Start: 04-24-2024 End: 04-24-2024 ambulatory Camila L Cosmo Facility:[facility] Tiffanie randolph Start: 04-10-2024 End: 04-10-2024 Lab Drop off Camila L Cosmo [facility] Start: 04-10-2024 End: 04-10-2024 ambulatory Camila Morneo [facility] Facility:[facility] Start: 08-27-2023 End: 08-27-2023 ambulatory RAMONGARCÍA OLEA [facility] Start: 08-06-2023 End: 08-07-2023 [facility] Start: 08-05-2023 End: 08-06-2023 ambulatory [facility] Start: 08-04-2023 End: 08-05-2023 ambulatory [facility] Start: 08-04-2023 End: 08-04-2023 Subsequent hospital visit by physician [facility] Op Treatment [address] [facility] Comment on above: Arrived Start: 08-04-2023 End: 08-04-2023 ambulatory [facility] Start: 07-31-2023 End: 08-03-2023 Evaluation and management of inpatient [facility] Start: 07-31-2023 End: 08-03-2023 Evaluation and management of inpatient Michelle Cox MD Work Phone: [facility] Comment on above: Post-operative wound abscess (Primary Dx); Failure of outpatient treatment; Abscess of umbilicus; Abscess of postoperative wound of abdominal wall Start: 07-17-2023 End: 07-18-2023 Evaluation and management of inpatient CONOVER Ceferino [facility] Start: 07-17-2023 End: 07-18-2023 Evaluation and management of inpatient Ramon Olea MD Work Phone: [facility] Comment on above: Incarcerated ventral hernia (Primary Dx); Wound dehiscence; Post-op pain Start: 06-20-2023 Evaluation and manag ement of inpatient [facility] Start: 04-04-2023 End: 04-04-2023 Lab Drop off KIA SAMUEL [facility] Start: 11-08-2022 End: 11-08-2022 ambulatory STEVE PEGUERO [facility] Start: 05-09-2022 End: 05-09-2022 Office outpatient visit 15 minutes Luis Felipe Lopes MD Work Phone: [facility] Comment on above: History of total rig ht knee replacement (Primary Dx) Start: 04-28-2022 Refill Niurka Fitzgerald MA [facility] Start: 04-18-2022 End: 04-18-2022 Office outpatient new 30 minutes Luis Felipe Lopes MD Work Phone: [facility] Comment on above: History of total rig ht knee replacement (Primary Dx) Start: 03-29-2022 End: 03-30-[address] MIGEL RAMSEY Facility:[facility] Procedures Date Procedure Procedure Detail Performing Clinician Start: 11-19-2024 Excision of lipoma Mainor aeeliot NILL Start: 07-28-2024 End: 07-28-2024 Computerized ophthalmic imaging [...] Phone: Start: 03-19-2023 Cholecystectomy Camila Sc hwab Amputation of thumb Alfonso DUDLEY Ankle region structu re (body structure) KIA SAMUEL Comment on above: right Arthroplasty of knee KIA SAMUEL Comment on above: 2009, right Cataract (disorder) KIA TRAVIS Comment on above: bilateral 2006 Closed fracture of a nkle (disorder) Alfonso DUDLEY Excision of lesion of skin Jason DUDLEY Finger structure (sanjiv dy structure) KIA SAMUEL History of cholecystectomy S/P cholecyste ctomy Camila Carlos Intestinal structure (body structure) KIA SAMUEL Comment on above: obstruction Lysis of adhesions Alfonso HICKS Repair of incisional hernia Alfonso DUDLEY Repair of joint of r ight knee Alfonso DUDLEY Stomach structure (b sanford structure) KIA SAMUEL Comment on above: 1968 Plan of Treatment Date Care Activity Detail Author Start: 02-02-2025 Micheal Brice 6mo DFE Dec [facility] Work Phone: Start: 12-18-2024 End: 12-18-2024 Patient encounter procedure 12/18/2024 9:20 AM EDT Office Visit [facility] [address] [place] [phone] Gaetano Rosen MD [address] [place] [address] [facility] Start: 12-09-2024 End: 12-09-2024 Patient encounter procedure [facility] Comment on above: Arrived Start: 12-04-2024 End: 12-04-2025 Thyroglobulin Antibody Thyroglobulin Antibody Lab Routine Thyroid nodule Subclinical hyperthyroidism Expected: 12/04/2024 (Approximate), Expires: 12/04/2025 [facility] Work Phone: Comment on above: Expected: 12/04/2024 (Approximate), Expi res: 12/04/2025 Start: 12-04-2024 End: 12-04-2025 Thyroid peroxidase antibody Thyroid peroxidase antibody Lab Routine Thyroid nodule Subclinical hyperthyroidism Expected: 12/04/2024 (Approximate), Expires: 12/04/2025 [facility] Comment on above: Expected: 12/04/2024 (Approximate), Expi res: 12/04/2025 Start: 12-04-2024 End: 12-04-2025 Thyrotropin [Units/volume] in Serum or Plasma TSH Lab Routine Thyroid nodule Subclinical hyperthyroidism Expected: 12/04/2024 (Approximate), Expires: 12/04/2025 [facility] Comment on above: Expected: 12/04/2024 (Approximate), Expi res: 12/04/2025 Start: 12-04-2024 End: 12-04-2025 Thyrotropin receptor antibody Thyrotropin receptor antibody Lab Routine Thyroid nodule Subclinical hyperthyroidism Expected: 12/04/2024 (Approximate), Expires: 12/04/2025 [facility] Comment on above: Expected: 12/04/2024 (Approximate), Expi res: 12/04/2025 Start: 12-04-2024 End: 12-04-2025 Thyroxine (T4) free [Mass/volume] in Serum or Plasma T4, free Lab Routine Thyroid nodule Subclinical hyperthyroidism Expected: 12/04/2024 (Approximate), Expires: 12/04/2025 [facility] Comment on above: Expected: 12/04/2024 (Approximate), Expi res: 12/04/2025 Start: 12-04-2024 End: 12-04-2025 Triiodothyronine (T3) Free [Mass/volume] in Serum or Plasma T3, free Lab Routine Thyroid nodule Subclinical hyperthyroidism Expected: 12/04/2024 (Approximate), Expires: 12/04/2025 [facility] Comment on above: Expected: 12/04/2024 (Approximate), Expi res: 12/04/2025 Start: 12-04-2024 End: 12-04-2024 Patient encounter procedure 12/04/2024 9:50 AM EDT Office Visit [facility] [address] [place] [address] Gaetano Rosen MD [address] [place] [address] Arrived [facility] Comment on above: Arrived Start: 11-17-2024 Influenza vaccination Influenza Vaccine (#1) [facility] Start: 10-28-2024 End: 10-28-2024 Patient encounter procedure 10/28/2024 8:40 AM EDT Office Visit [facility] [address] [facility] [address] [place] [address] Cuauhtemoc Jacobo MD [address] [facility] [address] [place] [address] Arrived [facility] Comment on above: Arrived Start: 11-18-2023 COVID-19 Vaccine ( season) COVID-19 Vaccine ( season) [place] Start: 11-18-2023 Influenza vaccination Influenza Vaccine (#1) [place] Start: 10-18-2023 Influenza vaccination Flu vaccine (Season Ended) [facility] Start: 08-27-2023 End: 08-27-2023 Patient encounter procedure 08/27/2023 2:30 PM EDT Office Visit [address] [place] [phone] Ramon Olea MD [address] [place] [address] [address] [place] [address] 4 weeks [facility] Comment on above: 4 weeks Start: 08-08-2023 DTaP/Tdap/Td vaccine (2 - Td or Tdap) DTaP/Tdap/Td vaccine (2 - Td or Tdap) [facility] Start: 08-08-2023 Tetanus vaccination Tetanus: Every 10yrs [place] Start: 08-07-2023 End: 08-07-2023 Patient encounter procedure 08/07/2023 2:30 PM EDT Office Visit [address] [place] [phone] Ramon Olea MD [address] [place] [address] [address] [place] [address] post op, fistula 1 and D. [facility] Comment on above: post op, fistula 1 and D. Start: 08-06-2023 End: 08-06-2023 Patient encounter procedure 08/06/2023 7:00 AM EDT Appointment [facility] ([facility]) [address] [place], [place] [id number] [facility] Start: 08-05-2023 End: 08-05-2023 Patient encounter procedure [facility] Start: 08-04-2023 End: 08-04-2023 Patient encounter procedure [facility] ([facility] Start: 07-25-2023 End: 07-25-2023 Patient encounter procedure 07/25/2023 4:30 PM EDT Office Visit [address] [place] [phone] Ramon Olea MD [address] [place] [address] [address] [place] [address] post op check, revision of umbilical incision [facility] Comment on above: post op check, revision of umbilical inc ision Start: 06-20-2023 Annual Wellness Visit (Medicare) Annual Wellness Visit (Medicare) [facility] Start: 05-08-2023 End: 05-08-2023 Patient encounter procedure 05/08/2023 Office Visit Orthopedic Surgery Luis Felipe Lopes MD [address] [place] [address] [facility] Start: 05-09-2022 End: 05-09-2022 Patient encounter procedure 05/09/2022 Office Visit Orthopedic Surgery Luis Felipe Lopes [place] [address] [facility] Start: 11-17-2021 Influenza vaccination Sequential Influenza Vaccine (#1) [place] Start: 2017 Respiratory Syncytial Virus Immunization: Risk, 60-74 Risk, or 75+ (1 - 1-dose 75+ series) Respiratory Syncytial Virus Immunization: Risk, 60-74 Risk, or 75+ (1 - 1-dose 75+ series) [place] Start: 2007 Fall risk assessment Falls Risk Assessment [place] Start: 2007 Pneumococcal 65+ years Vaccine (1 of 1 - PCV) Pneumococcal 65+ years Vaccine (1 of 1 - PCV) [facility] Start: 2007 Pneumococcal Vaccine: Age 65+ (1 - PCV) Pneumococcal Vaccine: Age 65+ (1 - PCV) [place] Start: 2002 Respiratory Syncytial Virus (RSV) or age 60 yrs+ (1 - 1-dose 60+ series) Respiratory Syncytial Virus (RSV) or age 60 yrs+ (1 - 1-dose 60+ series) [facility] Start: 1992 Administration of herpes zoster vaccine Zoster Vaccines (1 of 2) [place] Start: 1992 Pneumococcal Vaccine: 65+ Years (1 of 1 - PCV) Pneumococcal Vaccine: 65+ Years (1 of 1 - PCV) [facility] Start: 1992 Pneumococcal Vaccine: Age 50+ (1 of 1 - PCV) Pneumococcal Vaccine: Age 50+ (1 of 1 - PCV) [place] Start: 1992 Shingles vaccine (1 of 2) Shingles vaccine (1 of 2) [facility] Start: 1982 Screening for malignant neoplasm of breast Mammogram [place] Start: 1954 Depression Screen Depression Screen [facility] Start: 1954 Depression screening using PHQ-9 (Patient Health Questionnaire 9) score [place] Start: 1945 History and physical examination, annual for health maintenance Wellness Visit [place] Start: 1945 Medicare Wellness Visit Medicare Wellness Visit [place] Start: 1942 COVID-19 Vaccine (#1) COVID-19 Vaccine (#1) [place] Start: 1942 Medicare Annual Wellness (AWV) Medicare Annual Wellness (AWV) [facility] Start: 1942 Screening for osteoporosis Dexa Scan [place] End: 11-07-2023 CBC W Auto Differential panel - Blood CBC auto differential Lab Routine Tomorrow AM for 99 Occurrences starting 08/01/2023 until 11/07/2023, 3 completed [facility] Comment on above: Tomorrow AM for 99 Occurrences starting 08/01/2023 until 11/07/2023, 3 completed End: 11-07-2023 Comprehensive Metabolic Panel w/ Reflex to MG Comprehensive Metabolic Panel w/ Reflex to MG Lab Routine Tomorrow AM for 99 Occurrences starting 08/01/2023 until 11/07/2023, 3 completed [facility] Comment on above: Tomorrow AM for 99 Occurrences starting 08/01/2023 until 11/07/2023, 3 completed Culture, Anaerobic a nd Aerobic [facility] Comment on above: Release Upon Ordering for 1 Occurrences starting 07/31/2023 Oxygen therapy [Mini mum Data Set] Initiate Oxygen Therapy Protocol Respiratory Care Routine As Needed until discontinued starting 07/17/2023 [facility] Comment on above: As Needed until discontinued starting Oxygen therapy [Mini mum Data Set] Initiate Oxygen Therapy Protocol Respiratory Care Routine As Needed until discontinued starting 07/31/2023 [facility] Comment on above: As Needed until discontinued starting Surgical Pathology Surgical Path ology Lab Routine Wound dehiscence Release Upon Ordering for 1 Occurrences starting 07/17/2023 [facility] Comment on above: Release Upon Ordering for 1 Occurrences starting 07/17/2023 End: 07-17-2023 SURGICAL PATHOLOGY REPORT SURGICAL PATHOLOGY REPORT Lab Routine Once for 1 Occurrences starting 07/17/2023 until 07/17/2023 [facility] Comment on above: Once for 1 Occurrences starting 07/17/19 24 until 07/17/2023 Immunizations Immunization Date Immunization Notes Care Provider Harmony vu 08-07-2013 tetanus toxoid, reduced diphtheria toxoid, and acellular pertussis vaccine, adsorbed KIA SAMUEL [facility] [place] 03-19-2004 tetanus and diphther ia toxoids, adsorbed, preservative free, for adult use (2 Lf of tetanus toxoid and 2 Lf of diphtheria toxoid) KIA SAUMEL [facility] NEGATED: Highlighted row has not occurred!04-10-2024 influenza virus vaccine, unspecified formulation Camila Carlos [facility] Payers Date Payer Category Payer Self-pay 2024 Private Health Insurance [id number] 2024 Managed Care (unspecified) [employer] OTHER AFTER MEDICARE [id number] 2023 Private Health Insurance [id number] 2007 Medicare [id number] 2007 Medicare [id number] 1959 Unknown [id number] 1942 Unknown [id number] 2.16.840.1.435108.3.579. 2.593 1942 Unknown [id number] 2.16.840.1.939480.3.579. 2.174 1942 Unknown [id number] 2.16.840.1.911276.3.579. 2.173 1942 Unknown [id number] 2.16.840.1.956662.3.579. 2.173 1942 Unknown [id number] 2.16.840.1.905080.3.579. 2.173 1942 Unknown [id number] 2.16.840.1.082580.3.579. 2.173 1942 Unknown [id number] 2.16.840.1.065416.3.579. 2.173 1942 Unknown [id number] 2.16.840.1.072116.3.579. 2.173 1942 Unknown [id number] 2.16.840.1.412294.3.579. 2.1286 1942 Unknown [id number] 2.16.840.1.011964.3.579. 2.903 1942 Unknown [id number] 2.16.840.1.586451.3.579. 2.903 1942 Unknown [id number] 2.16.840.1.267940.3.579. 2.903 1942 Unknown [id number] 2.16.840.1.299290.3.579. 2.1347 1942 Unknown [id number] 2.16.840.1.550506.3.579. 2.727 1942 Unknown [id number] 2.16.840.1.573327.3.579. 2.727 1942 Unknown [id number] 2.16.840.1.460435.3.579. 2.727 1942 Unknown [id number] 2.16.840.1.997858.3.579. 2.727 1942 Unknown [id number] 2.16.840.1.903552.3.579. 2.727 1942 Unknown [id number] 2.16.840.1.743876.3.579. 2.727 1942 Unknown [id number] 2.16.840.1.882856.3.579. 2.727 1942 Unknown [id number] 2.16.840.1.693953.3.579. 2.727 1942 Unknown [id number] 2.16.840.1.328806.3.579. 2.72 1942 Unknown [id number] 2.16.840.1.018564.3.579. 2.727 1942 Unknown [id number] 2.16.840.1.987144.3.579. 2.72 1942 Unknown [id number] 2.16.840.1.384712.3.579. 2.72 1942 Unknown [id number] 2.16.840.1.866851.3.579. 2 1942 Unknown [id number] 2.16.840.1.717246.3.579. 2.72 1942 Unknown [id number] 2.16.840.1.208790.3.579. 2 1942 Unknown [id number] 2.16.840.1.498779.3.579. 272 1942 Unknown [id number] 2.16.840.1.908918.3.579. 2.718 1942 Unknown [id number] 2.16.840.1.121048.3.579. 2.72 1942 Unknown [id number] 2.16.840.1.166348.3.579. 2.72 1942 Unknown [id number] 2.16.840.1.558901.3.579. 2.72 1942 Unknown [id number] 2.16.840.1.786667.3.579. 272 1942 Unknown [id number] 2.16.840.1.303154.3.579. 2.72 1942 Unknown [id number] 2.16.840.1.297727.3.579. 2.727 1942 Unknown [id number] 2.16.840.1.027467.3.579. 2.1259 1942 Unknown [id number] 2.16.840.1.329634.3.579. 2.1259 1942 Unknown [id number] 2.16.840.1.811577.3.579. 2.1259 Social History Date Type Detail Facility [facility] smoking consumption unknown [place] Start: 1940 Sex Assigned At Not on file [facility] Start: 04-08-2022 End: 05-09-2022 Exposure to SARS-CoV-2 (event) Not sure [place] Start: 04-04-2023 End: 10-28-2024 Tobacco smoking status Never smoked tobacco (finding) [facility] Comment on above: denies use. [facility]: denies use. Start: 06-20-2023 End: 12-09-2024 Sex Assigned At Female [facility] Start: 07-17-2023 End: 08-03-2023 Alcohol intake Current non-drinker of alcohol (finding) [facility] Start: 07-17-2023 End: 12-09-2024 Alcohol intake [facility] Has the [employer], [employer], or water [employer] threatened to shut off services in your home in past 12Mo No [facility] How often to you hav e a drink containing alcohol? Never [facility] (I/We) worried wheth er (my/our) food would run out before (I/we) got money to buy more. Never true [facility] Start: 07-28-2024 Health-related behavior (observable entity) Caffeine Use Details [facility] Start: 07-28-2024 Tobacco use and exposure Non-Smoking Tobacco Use Details [facility] Start: 1940 Sex Assigned At Female [facility] Sexual Orientation [facility] [place] Sex Female (finding) [facility] Start: 10-28-2024 Tobacco use and exposure Smokeless tobacco non-user [facility] Start: 10-28-2024 End: 12-09-2024 Alcoholic beverage intake Lifetime non-drinker (finding) [facility] NEGATED: Highlighted rowStart: 07-28-2024 Tobacco smoking status NHIS Never smoker [facility] NEGATED: Highlighted row Alcohol intake Alcohol Use Details [facility] NEGATED: Highlighted rowStart: 07-28-2024 History of tobacco use Current non-smoker [facility] Clinical Notes 03-30-2022 to 12-09-2024 Cuauhtemoc Jacobo MD - 12/09/2024 9:50 AM EDTTelephone Encounter - Cuauhtemoc Jacobo MD - 12/08/2024 10:26 AM EDTTelephone Encounter - Cuauhtemoc Jacobo MD - 12/08/2024 10:26 AM EDT Note Date & Type Note Facility 12-09-2024 History of Presen t illness Narrative Subjective Patient ID: Micheal Brice is a 84 y.o. female who presents for Thyroid Problem (Follow up FNA 11/13/24 [facility] Pulido report) 30cc fluid removed during FNA. No [...] the morning. ergocalciferol (Vitamin D2) 1.25 MG (57174 UT) capsule Take 1 capsule by mouth [...] need a thyroidectomy. documented in this encounter [facility] 12-08-2024 Telephone encounter Note F/U tomorrow as scheduled. I have the information I need for the appointment [facility] 12-08-2024 Miscellaneous Notes F/U tomorrow as scheduled. I have the information I need for the appointment Pt called in. She is scheduled to see you tomorrow. Her question is she had a FNA done 11/13/24. She then saw Dr Rosen 12/04/24. Pt said she was told Dr Rosen did not have the results of the biopsy and had her go the same day to [facility] for a blood test. They told her it would take 2 weeks to get the results. She said she feels there was a error in getting the results to him. I told her we are on the same computer system and have access to the same information. Pt does not want to come in tomorrow if you don't have all of the results. Pt said she is not happy with the way this has been handled. documented in this encounter [facility] 12-08-2024 Telephone encounter Note Pt called in. She is scheduled to see you tomorrow. Her question is she had a FNA done 11/13/24. She then saw Dr Rosen 12/04/24. Pt said she was told Dr Rosen did not have the results of the biopsy and had her go the same day to [facility] for a blood test. They told her it would take 2 weeks to get the results. She said she feels there was a error in getting the results to him. I told her we are on the same computer system and have access to the same information. Pt does not want to come in tomorrow if you don't have all of the results. Pt said she is not happy with the way this has been handled. [facility] 11-21-2024 Note Patient Education Orthopedics Ganglion Cyst A ganglion cyst is a non-cancerous, fluid-filled lump of tissue that occurs near a joint, tendon, or ligament. The cyst grows out of a joint or the lining of a tendon or ligament. Ganglion cysts most often develop in the hand or wrist, but they can also develop in the shoulder, elbow, hip, knee, ankle, or foot. Ganglion cysts are ball-shaped or egg-shaped. Their size can range from the size of a pea to larger than a grape. Increased activity may cause the cyst to get bigger because more fluid starts to build up. What are the causes? The exact cause of this condition is not known, but it may be related to: ??? Inflammation or irritation around the joint. ??? An injury or tear in the layers of tissue around the joint (joint capsule). ??? Repetitive movements or overuse. ??? History of acute or repeated injury. What increases the risk? You are more likely to develop this condition if: ??? You are a female. ??? You are 20?40 years old. What are the signs or symptoms? The main symptom of this condition is a lump. It most often appears on the hand or wrist. In many cases, there are no other symptoms, but a cyst can sometimes cause: ??? Tingling. ??? Pain or tenderness. ??? Numbness. ??? Weakness or loss of strength in the affected joint. ??? Decreased range of motion in the affected area of the body. How is this diagnosed? Ganglion cysts are usually diagnosed based on a physical exam. Your health care provider will feel the lump and may shine a light next to it. If it is a ganglion cyst, the light will likely shine through it. Your health care provider may order an X-ray, ultrasound, MRI, or CT scan to rule out other conditions. How is this treated? Ganglion cysts often go away on their own without treatment. If you have pain or other symptoms, treatment may be needed. Treatment is also needed if the ganglion cyst limits your movement or if it gets infected. Treatment may include: ??? Wearing a brace or splint on your wrist or finger. ??? Taking anti-inflammatory medicine. ??? Having fluid drained from the lump with a needle (aspiration). ??? Getting an injection of medicine into the joint to decrease inflammation. This may be corticosteroids, ethanol, or hyaluronidase. ??? Having surgery to remove the ganglion cyst. ??? Placing a pad in your shoe or wearing shoes that will not rub against the cyst if it is on your foot. Follow these instructions at home: ??? Do not press on the ganglion cyst, poke it with a needle, or hit it. ??? Take dngs-ofj-pzzzwcd and prescription medicines only as told by your health care provider. ??? If you have a brace or splint: ? Wear it as told by your health care provider. ? Remove it as told by your health care provider. Ask if you need to remove it when you take a shower or a bath. ??? Watch your ganglion cyst for any changes. ??? Keep all follow-up visits as told by your health care provider. This is important. Contact a health care provider if: ??? Your ganglion cyst becomes larger or more painful. ??? You have pus coming from the lump. ??? You have weakness or numbness in the affected area. ??? You have a fever or chills. Get help right away if: ??? You have a fever and have any of these in the cyst area: ? Increased redness. ? Red streaks. ? Swelling. Summary ??? A ganglion cyst is a non-cancerous, fluid-filled lump that occurs near a joint, tendon, or ligament. ??? Ganglion cysts most often develop in the hand or wrist, but they can also develop in the shoulder, elbow, hip, knee, ankle, or foot. ??? Ganglion cysts often go away on their own without treatment. This information is not intended to replace advice given to you by your health care provider. Make sure you discuss any questions you have with your health care provider. Document Revised: 05/26/2020 Document Reviewed: 05/26/2020 [employer] Patient Education ? 2023 [employer]. [facility] 11-19-2024 Hospital Discharg e instructions Follow Up Care 11/19/2024 13:05:19 With:OCTAVIA JULIEN, ARPAN Huizar Address: [address] [place], [place] [id number]- When: only if needed [facility] 11-17-2024 History of Presen t illness Narrative Images from the original note were not included. Micheal Brice is a 84 y.o. female Camila Carlos NP presents with chief complaint of Thyroid Problem [...] Daily RT ergocalciferol (Vitamin D2) 1.25 MG (35671 UT) capsule 1 capsule, Weekly lactobacillus (Culturelle) [...] Will continue to follow up with Dr. Jacobo for further evaluation. Follow-up: Repeat lab test for subclinical hyperthyroidism. Check antibody test to rule out autoimmune disease. Continue follow-up with Dr. Sheikh for multinodular goiter evaluation. Follow up in about 2 weeks (around 12/18/2024). documented in this encounter [facility] 10-28-2024 History of Presen t illness Narrative Subjective Patient ID: Micheal Brice is a 84 y.o. female who presents for Thyroid Nodule Pt reports she has been having heat intolerance and part of W/U included a thyroid US. TFTs done, but not provided. US shows a [id number] left inf lobe nodule with microcalcifications. No [...] the morning. ergocalciferol (Vitamin D2) 1.25 MG (03112 UT) capsule Take 1 capsule by mouth [...] tx of hyperthyroidism documented in this encounter [facility] 10-22-2024 Note Patient Education Endocrinology Thyroid Nodule [...] your thyroid nodule or nodules. ??? Take xlia-wqd-ruvpkzj and prescription medicines only as told by [...] a nodule contin (more content not included)... [facility] 10-21-2024 Note General Surgery Offi ce/Clinic Note Chief Complaint consultation for lipoma HPI Staff 84 year old female presents on consultation from Camila Carlos for right upper arm mass. Reports noting mass approximately 10 years ago. Verbalized mass has been stable in size. Denies discomfort or tenderness. US completed at [facility] 04/28/24 with probable lipoma. History of [...] plan excisional biopsy under local anesthesia at [facility], informed consent obtained. 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 Bilateral. 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 Bilateral. Condition: stable impression Hypertension: I10 [facility] Work Phone: 1(459) 897-997005-12-2025 History of Present illness Narrative* Encounter Date [...] of light. Patient denies any ocular pain. [facility] Physicians Work Phone: 1(469) 661-271605-12-2025 Instructions* Date Instruction Additional Infor mation Return 6 months DFE/OCT/ Colors Related to Nexdtve age-related mclr degn, bilateral, intermed dry stage Impression/Plan Related to Nexdt ve age-related mclr degn, bilateral, intermed dry stage Impression/Plan Related to Choro idal Nevus OS Impression/Plan Related to Pseud ophakia Impression/Plan Related to Hyper tension [facility] Work Phone: 1(873) 561-931203-28-2025 NoteSubjective: Patient ID: Micheal Brice is a [...] Authorized by: Luis Felipe Lopes MD CPT 12155 - Large Joint Arthrocentesis: Consent given by: [...] expedite correspondence this note was generated by [employer] voice recognition software. Some grammatical or spelling errors may occur using the system. [1] There is no problem list on file for this patient. AUTHENTICATED BY LUIS FELIPE LOPES, ON 06/13/2024 10:56:26[facility] 06-13-2024 History of Present illness [...] Authorized by: Luis Felipe Lopes MD CPT 78249 - Large Joint Arthrocentesis: Consent given by: [...] expedite correspondence this note was generated by [employer] voice recognition software. Somegrammatical or spelling errors may occur using the system. [1] There is no problem list on file for this patient. documented in this [id number] NotePatient Education Cardiovascular Hypertension, Adult Hypertension is [...] Keep all follow-up visits. Medicines ??? Take ectb-efc-ctzlpxu and prescription medicines only as told by [...] ??? Hypertension is a (more content not included)...[facility] 08-03-2023 History of Present illness Narrative* Osei Hancock RN - 08/03/2023 7:15 PM EDT Patient escorted off unit and discharged at this time. No additional requests from consumer loan underwriter. * Chloe Torres RN - 08/03/2023 6:40 PM EDT Painter Helper reviewed discharge instructions with the patient. Reviewed [...] requested to put medicated honey on wound. Painter Helper spoke with Dr. Castañeda and he states to only use iodoform on wound. No medicated honey. Painter Helper notified the patient who is agreeable. * [...] Torres RN - 08/03/2023 11:44 AM EDT Painter Helper arrived to bedside at this time after notification from [facility] that patient had accidentally removed IV. Patient states they accidentally pulled IV out when they were using the restroom. Site assessed, no complications. Care ongoing. * Chloe Torres RN - 08/03/2023 9:01 AM EDT Patient is walking the halls independently at this time. * Radhika Magana MD - 08/03/2023 6:33 AM EDT Images from the original note were not included. [address] , [place], [place], [address] Progress Note Date: 08/03/2023 Patient name: Micheal [...] Foot surgery (Right); Colonoscopy; Tonsillectomy and adenoidectomy; [employer] tooth extraction; Thumb amputation (Right); Finger replantation [...] clubbing or edema DIAGNOSTICS: Laboratory Testing: See [facility] EMR for lab data No [...] sodium chloride 0.9 % 50 mL IVPB (Rmtp6Nhs) 3,375 mg IntraVENous Q8H Luis Felipe Castañeda [...] this chart was generated using voice recognition [employer] dictation software. Although every effort was made to ensure the accuracy of this automated equine vet, some errors in equine vet may have occurred. Radhika Magana MD 08/03/2023 6:33 AM * Chloe Torres RN - 08/03/2023 6:29 AM EDT Vitals [...] EDT Spiritual Services Interventions [id number]/[id number] 08/02/2023 Ignacio Sanches Micheal Brice 83 y.o. year old female Encounter [...] Assessment: (P) Calm Intervention: (P) Prayer (assurance of)/Hollis, Discussed belief system/buddhist practices/ly, Discussed illness injury and it s [...] hour Intake 2015.33 ml Output -- Net 2015.33 ml Exam: General: alert HEENT: Supple neck [...] and wound care. Critical Care Time: 0 [facility] Advanced Care Planning documentation: [x] I have [...] the patient's medical record. [DOES NOT SATISFY [facility] PERFORMANCE] Michelle Cox MD , MMary. * Chloe Torres RN - 08/02/2023 7:31 [...] loss Fluid Accumulation: No significant fluid accumulation Disassembler Strength: Not Performed Nutrition Assessment: Increased nutrient needs r/t acute injury/trauma AEB surgical site infection. Pt underwent cholecystectomy and hernia repair 2 weeks ago and admitted for infection at surgical site. Pt reported a good appetite and no N/V/D. Active b/s, no edema noted. Pt reported weight prior to surgery 198# and istrying to lose weight. Painter Helper educated pt on importance of maintaining wt [...] Measures: Height: 157.5 cm (5' 2 ) [place] Body Weight (IBW): 110 lbs (50 kg) [...] Used for Energy Requirements: Current Energy (kcal/day): 1970-0401 (15-18) Weight Used for Protein Requirements: [place] Protein (g/day): 75-90 (1.5-1.8) Method Used for Fluid Requirements: 1 ml/kcal Fluid (ml/day): 1600 Nutrition Diagnosis: Increased nutrient needs related to acute injury/trauma as evidenced by other (comment) (surgical site infection) Hematology: Recent Labs 07/31/23141408/01/23 0545 WBC 11.2 11.9* HGB 11.7* 11.5* HCT 36.6 35.6* Chemistry: Recent Labs 07/31/23141408/01/2345 NA 138 138 K 4.5 4.6 CL [...] Planning: Too soon to determine Yessy Dyer Optometric Assistant Contact: [phone] * Angela Nguyen RN - 07/31/2023 10:46 PM EDT Patient's son, Noe, called for an update. Update given after confirming with pt that it was ok for consumer loan underwriter to speak with him. * Angela Nguyen [...] reach. Care ongoing. [facility] Discharge instructions* Discharge Instructions* Chloe Torres [...] most local grocery stores, pharmacies, and chain [email or web address]. If you have any questions about your [...] for healthcare treatment Living will;Durable power of oracle financials developer for health care No, copy requested from [...] OMPHALECTOMY performed by Ramon Olea MD at [facility] OR ABDOMINAL ADHESION SURGERY ABDOMINAL EXPLORATION SURGERY CHOLECYSTECTOMY, LAPAROSCOPIC N/A 06/20/2023 CHOLECYSTECTOMY LAPAROSCOPIC performed by Ramon Olea MD at [facility] OR COLONOSCOPY FINGER REPLANTATION Right index with ori placement and removal FOOT SURGERY Right dislocation STOMACH SURGERY N/A 07/17/2023 SINGLE ANASTOMOSIS OF TRANSVERSE COLON performed by Ramon Olea MD at [facility] OR THUMB AMPUTATION Right partial TONSILLECTOMY AND ADENOIDECTOMY TOTAL KNEE ARTHROPLASTY Right UMBILICAL HERNIA REPAIR N/A 07/17/2023 HERNIA UMBILICAL REPAIR - REVISION UMBILICAL INCISION, Ricther hernia repair with tranverse colon anastomosis performed by Ramon Olea MD at [facility] OR WISDOM TOOTH EXTRACTION Immunization History: [...] MENTAL STATUS:} IV Access: { MALAIKA IV ACCESS:842523680} Nursing Mobility/ADLs: Walking {CHP DME ADLs:271994413} Transfer {CHP DME ADLs:553303908} Bathing {CHP DME ADLs:137842722} Dressing {CHP DME ADLs:624330905} Toileting {CHP DME ADLs:310213294} Feeding {P DME ADLs:546582478} Newspaper Illustrator {P DME ADLs:901672530} Med Delivery { MALAIKA MED Delivery:700993686} Wound Care Documentation and Therapy: Incision 07/31/23 [...] Bladder: {YES / NO:} Urinary Catheter: {Urinary Catheter:244909130} Colostomy/Ileostomy/Ileal Conduit: {YES / NO:} Date of Last BM: Intake/Output Summary (Last 24 hours) at 08/03/2023 0448 Last data filed at 08/02/2023 1845 Gross per 24 hour Intake 2816.33 ml Output -- Net 2816.33 ml I/O last 3 completed shifts: In: 2816.3 [P.O.:800; I.V.:1637; IV Piggyback:379.3] Out: - Safety Concerns: { MALAIKA Safety Concerns:397198427} Impairments/Disabilities: { MALAIKA Impairments/Disabilities:471443867} Nutrition Therapy: Current Nutrition Therapy: { MALAIKA Diet List:691859094} Routes of Feeding: {[facility] DME Other Feedings:013263170} Liquids: {[facility] liquid thickness:98466} Daily Fluid Restriction: {[facility] DME Yes amt example:896880824} Last Modified Barium Swallow with Video (Video Swallowing Test): {Done Not Done Date:} Treatments at the Time of Hospital Discharge: Respiratory Treatments: Oxygen Therapy: {Therapy; copd oxygen:37217} Ventilator: { CC Vent List:037652531} Rehab Therapies: {THERAPEUTIC INTERVENTION:3931899894} Weight Bearing Status/Restrictions: {[facility] Weight Bearin} Other Medical Equipment (for information only, NOT a DME order): {EQUIPMENT:107258238} Other Treatments: Patient's personal belongings (please select all that are sent with patient): {[facility] DME Belongings:571214026} RN SIGNATURE: {Esignature:322249135} CASE MANAGEMENT/SOCIAL WORK SECTION Inpatient Status Date: Readmission Risk Assessment Score: Readmission Risk Risk of Unplanned Readmission: 11 Discharging to Facility/ Agency Name: Address: Phone: Fax: Dialysis Facility (if applicable) Name: Address: Dialysis Schedule: Phone: Fax: Agronomy Technician/Coordinate Measuring Machine Operator signature: {Esignature:221025092} PHYSICIAN SECTION Prognosis: {Prognosis:5842828086} Condition at Discharge: { Patient Condition:875577611} Rehab Potential (if transferring to Rehab): {Prognosis:2108825371} Recommended Labs or Other Treatments After Discharge: Physician Certification: I certify the above information and transfer of Micheal Brice is necessary for the continuing treatment of the diagnosis listed and that she requires {Admit to AppropriateLevel of Care:83983} for {GREATER/LESS:088541963} 30 days. Update Admission H&P: {CHP DME Changes in HandP:206129633} PHYSICIAN SIGNATURE: * Attachments The following attachments cannot be sent through Care Everywhere. * Abscess: Skin (Haitian) documented in [facility] [place] History of Present illness Narrative* Rosibel Caba RN - 07/18/2023 3:30 PM EDT Patient discharged home at this time. * Chloe Ford RN - 07/18/2023 3:16 PM EDT Reviewed discharge instructions with patient. 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 Reviewed new medication and [...] in medel at this time. * Yusuf Monson RD, AMANUEL - 07/18/2023 7:31 AM EDT Comprehensive Nutrition [...] muscle mass loss Fluid Accumulation: Mild Extremities Disassembler Strength: Not Performed Nutrition Assessment: Food and [...] Measures: Height: 157.5 cm (5' 2 ) [place] Body Weight (IBW): 110 lbs (50 kg) [...] Used for Energy Requirements: Current Energy (kcal/day): 9603-8548 (18-22) Weight Used for Protein Requirements: [place] Protein (g/day): 65-75 (1.3-1.5) Method Used for [...] this time Yusuf Monson RD, AMANUEL Contact: [phone] * Yessy Montes RN - 07/18/2023 6:55 AM EDT Painter Helper to bedside to complete morning assessment. Upon entry to room, pt sitting up in chair, respirations even and unlabored while on room air. Vitals obtained and assessment completed, see flow sheet for details. Pt denies any pain at this time. Pt denies needs from consumer loan underwriter at this time. Call light in reach. [...] PM EDT [facility] with RN and belongings. Staff [...] voicemail set up. documented in [facility] [place] Hospital course Narrative* Ramon Olea MD - [...] and follow up. documented in [facility] [place] Hospital Discharge instructions* Discharge Instructions* Chloe Ford [...] if you have questions or problems @ [phone] * Discharge Instr - Activity* Chloe Ford [...] Care Everywhere. * Abdominal Hernia Repair: Post-op (Haitian) * Surgical Site Infections: Prevention: General Info (Haitian) documented in [facility] [place] NoteCardiology Clinic Note Chief Complaint: chest pain [...] or concerns. Steve Peguero MD Interventional Cardiology [facility]08-23-2023 NoteNew patient here to establish care. Self [...] ). All other systems reviewed and are negative.[facility] 05-09-2022 History of Present illness Narrative* Luis [...] did advise her we really want to fruit picker machine operator her exercise and activity level. Shayla see her in a year for reevaluation. No orders of the defined types were placed in this encounter. Return in about 1 year (around 05/09/2023) for Annual physical, xrays. Note: To expedite correspondence this note was generated by [employer] voice recognition software. Somegrammatical or spelling errors may occur using the system. documented in this [id number] Telephone encounter Note* Telephone Encounter - Niurka Fitzgerald MA - 04/28/2022 3:19 PM EST Patient called with question with whether she should finish keflex , she was instructed to finish antibiotic . [id number] Miscellaneous Notes* Telephone Encounter - Niurka Fitzgerald MA - 04/28/2022 3:19 PM EST Patient called with question with whether she should finish keflex , she was instructed to finish antibiotic . documented in this [id number] History of Present illness Narrative* Luis Felipe [...] expedite correspondence this note was generated by [employer] voice recognition software. Somegrammatical or spelling errors may occur using the system. documented in this [id number] NotePROCEDURE: XR ELBOW RT MIN 3 VIEWS [...] Electronically authenticated by: MIGEL RAMSEY Date: 2022-03-30 12:47[facility]01-12-2023 NotePROCEDURE: XR KNEE RT 4V or [...] Electronically authenticated by: MIGEL RAMSEY Date: 2022-03-30 12:42[facility]* Clinical Note Date No Information [facility] Work Phone: Discharge summary* Clinical Note Date No Information [facility] Work Phone: Evaluation + Plan note Future Appointments Appointment Date:04/07/2024 01:00:00 PM Scheduled Provider: Location:[facility] Medicare Wellness [facility] App[facility]ments Appointment Date:04/13/2025 09:30:00 AM Scheduled Provider: Location:[facility] Appointment Type: Medicare Wellness Subsequent Appointment Date:04/13/2025 10:20:00 AM Scheduled Provider:Camila Max Location:[facility] Appointment Type:[facility] Evaluation + Plan note Future Appointments Appointment Date:10/22/2024 09:20:00 AM Scheduled Provider:KIA SAMUEL CNP Location:[facility] Appointment Type: Open Appointment Date:04/13/2025 09:30:00 AM Scheduled Provider: Location:[facility] Appointment Type: Medicare Wellness Subsequent Appointment Date:04/13/2025 10:20:00 AM Scheduled Provider:Camila Max Location:[facility] Appointment Type:[facility] [place] evaluation + Plan note Future Appointments Appointment Date:04/13/2025 09:30:00 AM Scheduled Provider: Location:[facility] Appointment Type: Medicare Wellness Subsequent Appointment Date:04/13/2025 10:20:00 AM Scheduled Provider:Camila Max Location:[facility] Appointment Type:[facility] evaluation note* Diagnosis History of total right knee replacement- Primary [facility]* Diagnosis Incarcerated umbilical hernia- Primary Umbilical hernia with obstruction Wound dehiscence Disruption of external operation (surgical) wound Incarcerated ventral hernia Ventral hernia, unspecified, with obstruction Post-op pain Other acute postoperative pain Wound dehiscence Disruption of external operation (surgical) wound Incarcerated ventral hernia Ventral hernia, unspecified, with obstruction Hypertension Unspecified essential hypertension Mild malnutrition (HCC) Malnutrition of mild degree [facility] Diagnosis Abscess of postoperative wound of abdominal wall- Primary Post-operative wound abscess Other postoperative infection Failure of outpatient treatment Abscess of umbilicus Cellulitis and abscess of trunk Abscess of postoperative wound of abdominal wall documented in this encounter [facility] note* Diagnosis 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, lumbar region, without neurogenic claudication Primary osteoarthritis of left knee documented in this [facility]* Diagnosis Thyroid mass- Primary Unspecified disorder of thyroid documented in this encounter [facility] HealthcareEvaluation noteNo assessment information availableLake[facility] Work Phone: Evaluation note* Diagnosis Subclinical hyperthyroidism- Primary Thyrotoxicosis without mention of goiter or other cause, without mention of thyrotoxic crisis or storm Thyroid nodule Nontoxic uninodular goiter documented in this encounter [facility] HealthcareEvaluation note* Diagnosis Thyroid mass- Primary Unspecified disorder of thyroid documented in this encounter [facility] HealthcareHistory and physical note* Clinical Note Date No Information [facility] Work Phone: Hospital course Narrative No data available for this section [facility] Dis[facility] instructions No data available for this section [facility] No data available for this section [facility]* Clinical Note Date No Information [facility] Work Phone: Reason for referral (narrative)* Reason For Referral No Information [facility] Work Phone: Reason for referral (narrative)No reason for referral information availableLakehealth [facility] Work Phone: Summary Purpose Family History No [...] Agents on File Name Relationship Healthcare Agent [facility] p Communication Iain Hancock Child Primary Decision [...] Agents on File Name Relationship Healthcare Agent [facility] Child Primary Decision Maker Directive Yes / No Effective Date File Name No Information Documents on File Type Date Recorded 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 Expl 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 Advance Directives and Living Will 01/27/2019 2015-06-14 Power of Captain Waiter Advance Directives and Living Will 01/27/2019 2015-06-14 Living Wi ll Reason for Referral Specialty Diagnoses / Procedures Referred By Contac t Referred To Contact Wound Care Diagnoses Abscess of umbilicus Abscess of postoperative wound of abdominal wall Radhika Magana MD [address] [place] [address] Referral ID Status Reason Start Date Expiration Date V isits Requested Visits Authorized [id number] Open Specialty Services Required 08/03/2023 01/30/2024 1 1 Scheduling Instructions [facility] Question Answer Reason For External Referral? Location Comments The patient can be scheduled with any member of the group, including the provider with the first available appointments. Chief Complaint and Reason for Visit Chief Complaint Admit Date Unknown November 13, 2024 2: 37pm Chief Complaint Admit Date Unknown November 13, 2024 2: 37pm Unknown November 19, 2024 10:27am Additional Source Comments INFORMATION SOURCE (unrecogn ized section and content) DATE CREATED AUTHOR 04/01/2022 [facility] DATE CREATED AUTHOR AUTHOR'S ORGANIZ ATION 11/09/2022 [facility] DATE CREATED AUTHOR AUTHOR'S ORGANIZ ATION 06/22/2023 [facility] DATE CREATED AUTHOR AUTHOR'S ORGANIZ ATION 08/07/2023 [facility] DATE CREATED AUTHOR AUTHOR'S ORGANIZ ATION 08/28/2023 [facility] DATE CREATED AUTHOR AUTHOR'S ORGANIZ ATION 04/12/[address] [facility] DATE CREATED AUTHOR AUTHOR'S ORGANIZ ATION 06/18/2024 [facility] DATE CREATED AUTHOR AUTHOR'S ORGANIZ ATION 07/30/2024 [facility] DATE CREATED AUTHOR AUTHOR'S ORGANIZ ATION 10/16/2024 [facility] DATE CREATED AUTHOR AUTHOR'S ORGANIZ ATION 10/18/[address] [facility] DATE CREATED AUTHOR AUTHOR'S ORGANIZ ATION 10/24/2024 [facility] DATE CREATED AUTHOR AUTHOR'S ORGANIZ ATION 10/26/[address] [facility] DATE CREATED AUTHOR AUTHOR'S ORGANIZ ATION 10/29/2024 [facility] DATE CREATED AUTHOR AUTHOR'S ORGANIZ ATION 11/11/[address] [facility] DATE CREATED AUTHOR AUTHOR'S ORGANIZ ATION 11/21/2024 [facility] DATE CREATED AUTHOR AUTHOR'S ORGANIZ ATION 11/23/2024 [facility] DATE CREATED AUTHOR AUTHOR'S ORGANIZ ATION 11/24/[address] [facility] DATE CREATED AUTHOR AUTHOR'S ORGANIZ ATION 12/03/2024 [facility] DATE CREATED AUTHOR AUTHOR'S ORGANIZ ATION 12/03/2024 [facility] DATE CREATED AUTHOR AUTHOR'S ORGANIZ ATION 12/05/[address] DATE CREATED AUTHOR AUTHOR'S ORGANIZ ATION 12/10/2024 [facility] EPIC Reason for Visit (unrecogniz ed section and [...] Diagnoses Wound dehiscence Wound dehiscence [T81.30XA] Procedures [place] RPR AA HERNIA RECR < 3 CM REDUCIBLE HERNIA UMBILICAL REPAIR - REVISION UMBILICAL INCISION, POSSIBLE HERNIA REPAIR, POSSIBLE UMBILECTOMY Ramon Olea MD [address] [place] [address] [facility] [address] [place] [address] Referral ID Status Reason Start Date Expiration Date Visits Re quested Visits Authorized [id number] 1 1 Reason Comments Post-op Problem Hernia [...] her left knee. Reason Comments Thyroid Nodule Reason Comments Thyroid Problem NEW REF/US [facility] PATH Specialty Diagnoses / Procedures Referred By Jeni t Referred To Contact Endocrinology Diagnoses Nontoxic multinodular goiter Procedures [place] OFFICE/OUTPATIENT NEW MODERATE MDM 45 MINUTES Camila Carlos, STEFANY [address] [place] [address] Phone: tel: Gaetano Rosen MD [address] [place] [address] Phone: tel: fax: Referral ID Status Reason Start Date Expiration Date Visits Re quested Visits Authorized [id number] Closed 10/30/2024 04/28/2025 1 1 Reason Onset Date Comments blood results 12/08/2024 Reason Comments Thyroid Problem Follow up [facility] 5 [facility] report Care Teams (unrecognized sec tion and content) Rip And Groove Machine Operator Relationship Specialty Start Date End Date No, Physician [place] PCP - General 04/18/22 Rip And Groove Machine Operator Relationship Specialty Start Date End Date No, Physician [place] PCP - General 04/18/22 Rip And Groove Machine Operator Relationship Specialty Start Date End Date Camila Carlos APRN - CREPE BOX TENDER [address] [place], [place] [id number] PCP - General 06/20/23 Rip And Groove Machine Operator Relationship Specialty Start Date End Date Camila Carlos APRN - CREPE BOX TENDER [address] [place], [place] [id number] PCP - General 06/20/23 Rip And Groove Machine Operator Relationship Specialty Start Date End Date Camila Carlos APRN - CREPE BOX TENDER [address] [place], [place] [id number] PCP - General 06/20/23 Rip And Groove Machine Operator Relationship Specialty Start Date End Date Camila Carlos CNP [address] [place], [place] [id number] PCP - General Nurse Practitioner 06/13/24 Name Effective Dates (start - stop) Status Members No Information Rip And Groove Machine Operator Relationship Specialty Start Date End Date Camila Carlos NP [address] [place], [place] [phone] Referring Physician Family Medicine 10/28/24 Rip And Groove Machine Operator Relationship Specialty Start Date End Date Camila Carlos NP [address] [place], [place] [phone] Referring Physician Family Medicine 10/28/24 Team Status: Inactive Member Role Status Dates Cuauhtemoc Jacobo Jr, MD Attending Provider Active Start: November 13, 2024 End: November 13, 2024 Team Status: Inactive Member Role Status Dates Alfonso Dudley MD [facility] Attending Provider Active Start: November 19, 2024 End: November 19, 2024 Rip And Groove Machine Operator Relationship Specialty Start Date End Date Camila Carlos NP [address] [place] [address] Referring Physician Family Medicine 10/28/24 Rip And Groove Machine Operator Relationship Specialty Start Date End Date Camila Carlos NP [address] [place], [place] [phone] Referring Physician Family Medicine 10/28/24 Rip And Groove Machine Operator Relationship Specialty Start Date End Date Camila Carlos NP [address] [place], [place] [phone] Referring Physician Family Medicine 10/28/24 Rip And Groove Machine Operator Relationship Specialty Start Date End Date Camila Carlos NP [address] [place], [place] [phone] Referring Physician Family Medicine 10/28/24 Ordered Prescriptions [...] 100 mL IVPB (COMPLETED) 2,000 mg, IntraVENous, TRUCK DRIVER FLATBED TO O.R., 1 dose, On Sun07/17/23 at 0830, Antimicrobial Indications: Surgical Prophylaxis, Administer within 1 hour prior to incision. Recommend to repeat in 3-4 hours after initial dose if still intra-op., Pre-op (day of surgery) 1020 (New Bag - Provider: Krys Heart, RN - Comment: scallop binder to the OR)1350 (Stopped - Provider: Fabi [...] (NoRateChange - Provider: Dee Rodriguez APRN - CYTOLOGY MANAGER)1145 (Anesthesia Volume Adjustment - Provider: MICHAEL Lopez [...] IntraVENous, EVERY 6 HOURS PRN, Starting on e 07/17/23 at 1252, Until Discontinued, Nausea, Vomiting, Administer [...] IntraVENous, EVERY 6 HOURS PRN, Starting on 07/17/23 at 1252, Until Discontinued, Nausea, Vomiting
Administer if oral route cannot be used.
Post-op Group 2: oxyCODONE (ROXICODONE) immediate release tablet 5 mgJump to med 5 mg, Oral, EVERY 4 HOURS PRN, Starting on e 07/17/23 at 1252, Until Discontinued, Pain Moderate (4-6), Post-op Or oxyCODONE (ROXICODONE) immediate release tablet 10 mgJump to med 10 mg, Oral, EVERY 4 HOURS PRN, Starting on 07/17/23 at 1252, Until Discontinued, Pain Severe (7-10), [...] sodium chloride 0.9 % 50 mL IVPB (Hpti5Crw) 3,375 mg, IntraVENous, EVERY 8 HOURS, First [...] Dr. Castañeda)2300 (Due - Provider: Horacio Resendiz [facility]) sodium chloride flush 0.9 % [...] Chloe Torres RN - Reason: IV Fluid Infusing)2016 (Not Given - Provider: Angela Ladd RN [...] patients with CrCl less than 30 mL/min.
Goals (unrecognized section and content) Goals may be documented in a n alternate section FOR RECORDS PERTAINING TO PATIENTS WHO ARE [...] BE BASED ON THE PRIMARY CLINICAL RECORDS. [facility] [employer] [facility]. provides no warranty or guarantee of the accuracy or completeness of information in this document.
--- NOTE | 2024-12-10 15:32 | XR_ITS ---
The [address] [address] Patient Name: MICHEAL BRICE MRN: [id number] date: 1940 Sex: F Assigned Patient Location: [facility] Current Patient Location: 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 There is narrowing of the distal interphalangeal joints. There is fusion of the second proximal interphalangeal joint. There is narrowing of the metacarpophalangeal joints of the first through third digits. Significant degenerative changes are noted in the first carpometacarpal joint. There is diffuse soft tissue swelling. There is no acute displaced fracture. XR/XR hand RT min 3V IMPRESSION: No acute bony injury. 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 Impression dictated by: Liam Ortega M.D. 12/10/2024 5:13 PM Dictation Location: [place] [address] Electronically authenticated by: [id number] Y Date: 12/10/2024 17:13
--- NOTE | 2024-12-10 15:32 | XR_ITS ---
The [address] [address] Patient Name: MICHEAL BRICE MRN: [id number] date: 1940 Sex: F Assigned Patient Location: [facility] Current Patient Location: [facility] Accession/Order Number: [id number] Exam Date: 12/10/2024 15:38 Report Date: 12/10/2024 17:14 At the request of: KIA SAMUEL NP Procedure: XR wrist RT min 3V XR wrist RT min 3V 12/10/2024 3:42 PM SIGNS AND SYMPTOMS: ^Wrist Pain, Edema PROTOCOL: Frontal, lateral, and oblique radiographs of the right wrist COMPARISON: None FINDINGS: There is narrowing of the first carpometacarpal junction. There is mild narrowing of the radiocarpal joint spaces. There is no fracture or dislocation. There is nonspecific diffuse soft tissue swelling. XR/XR wrist RT min 3V IMPRESSION: No acute displaced fracture. Degenerative changes are noted as above, greatest at the first carpal metacarpal joint space. Impression dictated by: Liam Ortega M.D. 12/10/2024 5:14 PM Dictation Location: [place] [address] Electronically authenticated by: [id number] Y Date: 12/10/2024 17:14
== END 2024-12-10 15:24 | disposition home or self-care (01) ==
PROVIDERS: PCP Nurse Practitioner; Visit Provider Nurse Practitioner Family
DX: R60.0 Localized edema (principal); M25.531 Pain in right wrist
CPT/HCPCS: 73110; 73130

== ENCOUNTER 2025-02-16 10:49 | Outpatient (OUT) | payer MEDICARE, OTHER, SELFPAY ==
--- OUTSIDE RECORDS SUMMARY | 2025-02-16 09:40 | XMS_ITS | Encounter Summary ---
Author Organization [facility] Address [address] [place] [address] Care Team Providers Care Rn Neurosurgical Name Role Phone Terrance, Jessie ELL TEACHER-C Primary Care Provider [phone] Reason for Visit * ReasonCommentsFollow-upPatient is here today for a follow up appointment along with surgery clearance for at [facility] hernia repair with Dr. Perdomo. Patient denies chest pain, palpitations/racing heart, fatigue, dizziness/lightheaded, edema. HypertensionHyperlipidemiaShortness of BreathSOB/AGUSTIN with over exertion Encounter Details DateTypeDepartmentCare Team (Latest Contact Info)Euqtiwufott96/01/2025 9:40 AM ESTOffice Visit [facility] at [facility] [address] [place] [address] Dave Johnson MD [address] [place] [address] Primary hypertension (Primary Dx); Incisional hernia, without obstruction or gangrene Social History Tobacco UseTypesPacks/DayYears UsedDateSmoking Tobacco: NeverSmokeless Tobacco: NeverAlcohol UseStandard Drinks/WeekCommentsNever0 (1 standard drink = 0.6 oz pure alcohol)Humiliation, Afraid, Rape, and Kick questionnaireAnswerDate RecordedWithin the last year, have you been afraid of your partner or ex-partner?No01/06/2025Emotionally AbusedNot on file01/06/2025Physically Abused Not on file01/06/2025Sexually AbusedNot on file01/06/2025PHQ-2AnswerDate RecordedPatient Health Questionnaire-2 Wfvki812UT Safety & Environment AnswerDate RecordedFear of Current or Ex-PartnerNot on file05/11/2023Emotionally AbusedNot on file05/11/2023hysically AbusedNot on file05/11/2023Sexually Abused Not on file05/11/2023hysically or Sexually AbusedNot on file05/11/2023 CommentsNoSex and Gender InformationValueDate RecordedSex Assigned at Rycdul2701/06/2025 2:00 PM EDTLegal LbkGjukia49/15/2023 12:50 PM EDTGender NrailmdkHubqgo11/21/2025 2:00 PM EDTSexual OrientationHeterosexual or Straight 01/06/2025 2:00 PM EDTdocumented as of this encounter Last Filed Vital Signs Vital SignReadingTime TakenCommentsBlood Uvecezvy615/9202/16/2025 10:14 AM EST Jiljk649502/16/2025 9:52 AM ESTTemperature--Respiratory Rate--Oxygen Zkzndoglfc08% 02/16/2025 9:52 AM ESTInhaled Oxygen Concentration--Yrgtaz36.8 kg (187 lb) 02/16/2025 9:52 AM KHCLcjezb681.4 cm (5')02/16/2025 9:52 AM ESTBody Mass Index 36.5202/16/2025 9:52 AM ESTdocumented in this encounter Patient Instructions * Attachments The following attachments cannot be sent through Care Everywhere. * How to Take Your Blood Pressure Zsid-gq-Bagu (Pashto) * Heart-Healthy Eating Plan (Pashto) documented in this encounter Progress Notes * Dave Johnson MD - 02/16/2025 9:40 AM EST Subjective Patient ID: Elisa Wills is a 84 y.o. female who presents for Follow-up (Patient is here today for a follow up appointment along with surgery clearance for at [facility] hernia repair with Dr. Perdomo. Patient denies [...] normal. Judgment: Judgment normal. Recent EKG strip ([facility]) reviewed by me: normal) Assessment/Plan Mrs. Wills has untreated high blood pressure and has not been taking indicated treatment. This puts her at increased risk of stroke, [place], renal failure etc. Would recommend we obtain [...] Plan of Treatment DateTypeDepartmentCare Team (Latest Contact Info)Apdtzqupbhr66/12/2026 11:00 AM ESTOffice Visit [facility] [address] [place] [phone] Dave Johnson MD [address] [place] [phone] documented as of this encounter Visit Diagnoses Diagnosis Primary hypertension- Primary Unspecified essential hypertension Incisional hernia, without obstruction or gangrene documented in this encounter Care Teams Team MemberRelationshipSpecialtyStart DateEnd Date Jessie Carlos FNP-C [address] [place] [address] PCP - GeneralNurse Metmorskyaaz23/21/25documented as of this encounter
--- OUTSIDE RECORDS SUMMARY | 2025-02-16 10:56 | XMS_ITS | Clinical Summary ---
Author Organization [employer] Address [id number] [address] [place] [address] Care Team Providers Care Music Typographer Name Role Phone No Pcp, No Pcp Primary Care Provider Unavailabl e Allergies No known active allergies Medications MedicationSigDispense QuantityRefillsLast FilledStart DateEnd DateStatus cyanocobalamin, vitamin B-12, (VITAMIN B-12 ORAL) Take 1 tablet by mouth daily.Active vitamin E acetate (VITAMIN E ORAL) Take 2 capsules by mouth daily.Active Active Problems No known active problems Family History Medical HistoryRelationNameCommentsProstate cancerFatherBreast cancerMaternal AuntAnesthesia problemsNeg HxCervical cancerNeg HxColon cancerNeg HxLung cancer Neg HxOvarian cancerNeg HxRelationNameStatusCommentsFatherMaternal Aunt Social History Tobacco UseTypesPacks/DayYears UsedDateSmoking Tobacco: NeverSmokeless Tobacco: NeverAlcohol UseStandard Drinks/WeekCommentsNo0 (1 standard drink = 0.6 oz pure alcohol)ChildcareAnswerDate QarzxkhiKximflkgrApmalqw51/12/2019EmploymentAnswer Date QkqxnhguYdnluksjbsEmieuxg50/12/2019Purpose - LifeAnswerDate RecordedPurpose and direction in acswKxfsiwn51/11/2021CommentsNoSex and Gender InformationValueDate RecordedSex Assigned at BirthNot on fileLegal SexFemale 10/22/2014 11:24 AM EDTGender IdentityNot on fileSexual OrientationNot on file Last Filed Vital Signs Vital SignReadingTime TakenCommentsBlood Xuapehao191/7208 9:38 AM EDT Ciecb320011/01/2017 9:38 AM QWZFnmjnbcbpns00.4 ??C (97.5 ??F)11/01/2017 9:38 AM EDTRespiratory Pfhg585211/01/2017 9:38 AM EDTOxygen Fvugensial43%11/01/2017 9:38 AM EDTInhaled Oxygen Concentration--Wdsnmv08 kg (194 lb 0.1 oz)11/01/2017 9:38 AM PFQUtldgt008.5 cm (5' 2 )11/01/2017 9:38 AM EDTBody Mass Index35.48011/01/2017 9:38 AM EDT Plan of Treatment Health MaintenanceDue DateLast DoneCommentsDepression Voqesszqw24/17/1954Tobacco Pdoaesvve87/17/1954DTaP,Tdap and Td Vaccines (1 - Tdap)1961Zoster (Shingles) Vaccine (1 of 2)1992Fall Risk Bhlukshod85/17/2007RSV ( or age 60+ yrs) (1 - 1-dose 75+ series)2017Influenza Joordvl2411/17/2024 Medical Devices Not on file Insurance Care Teams Team MemberRelationshipSpecialtyStart DateEnd Date No [place], [place] [id number] PCP - GeneralFamily Medicine11/01/17
--- OUTSIDE RECORDS SUMMARY | 2025-02-16 10:56 | XMS_ITS | Clinical Summary ---
Author Organization [facility] Address [address] [place] [address] Care Team Providers Care Cook Helper Dessert Name Role Phone Jessie Carlos PROJECT DESIGNER-C Primary Care Provider [phone] Allergies No known active allergies Medications MedicationSigDispense QuantityRefillsLast FilledStart DateEnd DateStatus cyanocobalamin, vitamin B-12, 1,000 mcg/mL drops Take 1 tablet by mouth in the morning.Active calcium carbonate 600 mg calcium (1,500 mg) tablet Take 1,200 mg by mouth in the morning.Active ergocalciferol (Vitamin D-2) 1.25 MG (89873 Units) capsule Take 1 capsule by mouth 1 (one) time per week.Active omega-3 acid ethyl esters (Lovaza) 1 gram capsule Take 2 g by mouth twice a day.Active garlic 1,000 mg capsule Take 6,000 mg by mouth 1 (one) time each day.Active ASHWAGANDHA EXTRACT ORAL Take 1 tablet by mouth in the morning.Active Active Problems ProblemNoted DateDiagnosed DateExcessive ehltfqkj97/26/2025Flank pain02/11/2025 Ganglion cyst of dorsum of right wrist02/11/2025Hair obgvhmsx65/26/2025 Npxjqlaqpvtknofpqk84/26/6167Hehhfesnjigpzuj47/26/2025Lipoma of back02/11/2025 Lipoma of upper arm02/11/2025Mass of soft tissue of upper arm02/11/2025Nonsmoker 02/11/2025Obesity due to excess puxdawdt86/26/2025Recurrent ventral incisional ispvvd6502/11/2025S/P hgpiefcnqjemuon89/26/2025Skin texture wlaozpn4102/11/2025Wart of hand02/11/2025ute pain of left /06/2025History of paranoid nkgocrcr09/06/2025Memory /06/2025dult BMI 37.0-37.9 kg/sq m 10/22/2024Post-menopause wimteyzv98/06/2025Mild xaefpoiixkff85/01/2024 Oblgwbclvkzp23/30/2024 Encounters DateTypeDepartmentCare QkitYchjhdxdnos77/01/2025 9:40 AM ESTOffice Visit [facility] [address] [place] [facility] [place] [phone] Dave Johnson MD Primary hypertension (Primary Dx); Incisional hernia, without obstruction or /01/2025Orders Only [facility] [address] [place] [facility] [place] [phone] Rosemary Curiel MA DOE (dyspnea on exertion) (Primary Dx); Benign hypertensive heart disease 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 ucknyle7501/06/2025 3:31 PM EDT - 01/06/2025 11:59 PM EDTHospital Encounter [facility] [address] [place] [phone] Incisional hernia, without obstruction or gangrene; Abdominal wall mass Discharge Disposition: Home or Self Care ()01/06/2025 2:45 PM EDTConsult [facility] [address] [place] [phone] Manfred Perdomo MD Incisional hernia, without obstruction or gangrene (Primary Dx); Abdominal wall mass; Easy bruising; Preop cardiovascular exam12/15/2024 12:05 AM EDT - 12/15/2024 11:59 PM EDT Hospital Encounter [facility] Radiology External Films [address] [place] [phone] Discharge Disposition: Home or Self Care ()12/15/2024 - 12/15/2024 12:04 AM EDTHospital Encounter [facility] Radiology External Films [address] [place] [address] Discharge Disposition: Home or Self Care ()from Last 3 Months Family History Medical HistoryRelationNameCommentsCoronary artery diseaseMotherheart valve diseaseMotherRelationNameStatusCommentsFatherDeceasedMotherDeceased Social History Tobacco UseTypesPacks/DayYears UsedDateSmoking Tobacco: NeverSmokeless Tobacco: Never Tobacco Cessation:Counseling Given: Not Answered Alcohol UseStandard Drinks/WeekCommentsNever0 (1 standard drink = 0.6 oz pure alcohol)Humiliation, Afraid, Rape, and Kick questionnaireAnswerDate Recorded Within the last year, have you been afraid of your partner or ex-partner?No 01/06/2025Emotionally AbusedNot on file01/06/2025Physically AbusedNot on file 01/06/2025Sexually AbusedNot on file01/06/2025PHQ-2AnswerDate RecordedPatient Health Questionnaire-2 Xdept374UT Safety & EnvironmentAnswerDate RecordedFear of Current or Ex-PartnerNot on file05/11/2023Emotionally AbusedNot on file05/11/2023hysically AbusedNot on file05/11/2023Sexually AbusedNot on file05/11/2023hysically or Sexually AbusedNot on file05/11/2023Comments NoSex and Gender InformationValueDate RecordedSex Assigned at BirthFemale 01/06/2025 2:00 PM EDTLegal NwbTbgegx09/15/2023 12:50 PM EDTGender Identity Wzvalr4401/06/2025 2:00 PM EDTSexual OrientationHeterosexual or Dpnplwtx51/21/2025 2:00 PM EDT Last Filed Vital Signs Vital SignReadingTime TakenCommentsBlood Hedrcglp250/9202/16/2025 10:14 AM EST Qasfe131102/16/2025 9:52 AM QTTElhcvzrtdua89.6 ??C (97.9 ??F)01/06/2025 2:52 PM EDTRespiratory Daze5065 2:52 PM EDTOxygen Ugxtinxtvr86%02/16/2025 9:52 AM ESTInhaled Oxygen Concentration--Vzwute44.8 kg (187 lb)02/16/2025 9:52 AM EST Erdxcf770.4 cm (5')02/16/2025 9:52 AM ESTBody Mass Index36.5202/16/2025 9:52 AM EST Plan of Treatment DateTypeDepartmentCare Team (Latest Contact Info)Esihtixxvqd68/12/2026 11:00 AM ESTOffice Visit [facility] [address] [place] [address] Dave Johnson MD [address] [place] [phone] Health MaintenanceDue DateLast DoneCommentsMedicare Annual Wellness (AWV) 2Pneumococcal Vaccine: 50+ Years (1 of 1 - PCV)1992Zoster Vaccines (1 of 2)1992Adult Tdwvwvw52, 03/19/2004COVID-19 Vaccine (1 - season)2024Influenza Vaccine (#1)2024Depression Mrhbaneex48Fall Risk Pwvargqmy71HIB Vaccines Aged OutNo longer eligible based on patient's age to complete this topicHPV VaccinesAged OutNo longer eligible based on patient's age to complete this topic IPV VaccinesAged OutNo longer eligible based on patient's age to complete this topicMeningococcal B VaccineAged OutNo longer eligible based on patient's age to complete this topicMeningococcal VaccineAged OutNo longer eligible based on patient's age to complete this topicRotavirus VaccinesAged OutNo longer eligible based on patient's age to complete this topic Procedures Procedure NamePriorityDate/TimeAssociated DiagnosisCommentsECG 12-LEADRoutine 01/06/2025 4:33 PM EDT Incisional hernia, without obstruction or gangrene Abdominal wall mass US TRANSFER OF OUTSIDE KBSEEWccfpqh09/29/2025 12:[address] TRANSFER OF OUTSIDE GFNOEGxatpqm45/29/2025 12:00 AM EDT from Last 3 Months Results * ECG 12 lead (01/06/2025 4:33 PM EDT)ComponentValueRef RangeTest MethodAnalysis TimePerformed AtPathologist SignatureVentricular Tlcn33XIECH MUSEAtrial Rate57 BPMGE MUSEPR Eaigrrdk344inGF MUSEQRS TNWOAJYF19znMH MUSEQT Xspnxxvj803npGV MUSEQTC CALCULATION(BAZETT)414msGE MUSEP Cbtz17fofdzqtST MUSER-Nuff59uwiikayMN MUSET Wave Ecdv65ifqrlukQD MUSESpecimen (Source)Anatomical Location / LateralityCollection Method / [...] on 01/06/2025 8:00:50 PM Authorizing ProviderResult TypeResult Fiona FRY ORDERABLESFinal ResultPerforming OrganizationAddressCity/State/ZIP CodePhone Number GE MUSE * US transfer of outside films (12/15/2024 12:05 AM EDT)Specimen (Source) Anatomical Location / LateralityCollection Method / VolumeCollection Time Received Time Narrative IMAGING - 12/15/2024 12:30 PM EDT This order has been auto-finalized and does not contain a result. Authorizing ProviderResult TypeResult Fiona Perdomo MDMelvi US PROCEDURES Final ResultPerforming OrganizationAddressCity/State/ZIP CodePhone Number IMAGING * CT transfer of outside films (12/15/2024 12:00 AM EDT)Specimen (Source) Anatomical Location / LateralityCollection Method / VolumeCollection Time Received Time Narrative IMAGING - 12/15/2024 12:30 PM EDT This order has been auto-finalized and does not contain a result. Authorizing ProviderResult TypeResult StatusManfred Perdomo MDIMG CT PROCEDURES Final ResultPerforming OrganizationAddressCity/State/ZIP CodePhone Number IMAGING from Last 3 Months Insurance Care Teams Team MemberRelationshipSpecialtyStart DateEnd Jessie Carlos FNP-C [address] [place] [address] PCP - GeneralNurse Uumoycmoldbb22/21/25
--- OUTSIDE RECORDS SUMMARY | 2025-02-16 10:56 | XMS_ITS | Encounter Summary ---
Author Organization [facility] Address [address] [place] [address] Care Team Providers Care Machine I Engraver Name Role Phone Jessie Carlos KENNEL AIDE-C Primary Care Provider [phone] Reason for Referral * Imaging (Routine) - Pending ReviewSpecialtyDiagnoses / ProceduresReferred By ContactReferred To ContactCardiology Diagnoses AGUSTIN (dyspnea on exertion) Benign hypertensive heart disease 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 failure Procedures Transthoracic echo (TTE) complete Dave Johnson MD [address] [place] [address] Phone: tel: fax: Referral IDStatusReasonStart DateExpiration DateVisits RequestedVisits [id number] Review Perform Procedure Encounter Details DateTypeDepartmentCare Team (Latest Contact Info)Lvzmywvligu79/01/2025Orders Only [facility] [place] [address] [place] [address] Rosemary Curiel MA AGUSTIN (dyspnea on exertion) (Primary Dx); Benign hypertensive heart disease 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 failure Social History Tobacco UseTypesPacks/DayYears UsedDateSmoking Tobacco: NeverSmokeless Tobacco: NeverAlcohol UseStandard Drinks/WeekCommentsNever0 (1 standard drink = 0.6 oz pure alcohol)Humiliation, Afraid, Rape, and Kick questionnaireAnswerDate RecordedWithin the last year, have you been afraid of your partner or ex-partner?No01/06/2025Emotionally AbusedNot on file10/21/2025Physically Abused Not on file01/06/2025Sexually AbusedNot on file01/06/2025PHQ-2AnswerDate RecordedPatient Health Questionnaire-2 Aqash422UT Safety & Environment AnswerDate RecordedFear of Current or Ex-PartnerNot on 05/11/2023Emotionally AbusedNot on file05/11/2023hysically AbusedNot on file05/11/2023Sexually Abused Not on 05/11/2023hysically or Sexually AbusedNot on file05/11/2023 CommentsNoSex and Gender InformationValueDate RecordedSex Assigned at Zqewlj4801/06/2025 2:00 PM EDTLegal NcxAzhcpb53/15/2023 12:50 PM EDTGender NbophlcaEawklk23/21/2025 2:00 PM EDTSexual OrientationHeterosexual or Straight 01/06/2025 2:00 PM EDTdocumented as of this encounter Plan of Treatment DateTypeDepartmentCare Team (Latest Contact Info)Ghyhadertlk54/12/2026 11:00 AM ESTOffice Visit [facility] [place] [address] [place] [address] Dave Johnson MD [address] [place] [address] NameTypePriorityAssociated DiagnosesOrder ScheduleBasic metabolic panelLab Routine AGUSTIN (dyspnea on exertion) Benign hypertensive heart disease 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 failure Expected: 02/16/2025 (Approximate), Expires: 02/16/2026Transthoracic echo (TTE) completeEchocardiographyRoutine AGUSTIN (dyspnea on exertion) Benign hypertensive heart disease 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 failure Expected: 02/16/2025 (Approximate), Expires: 02/16/2027documented as of this encounter Visit Diagnoses Diagnosis AGUSTIN (dyspnea on exertion)- Primary Other dyspnea and respiratory abnormality Benign hypertensive heart disease 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 failure Benign hypertensive heart disease without heart failure documented in this encounter Care Teams Team MemberRelationshipSpecialtyStart DateEnd Date Jessie Carlos FNP-C [address] [place] [address] PCP - GeneralNurse Mjtfrilllyer94/21/25documented as of this encounter
--- OUTSIDE RECORDS SUMMARY | 2025-02-16 10:56 | XMS_ITS | Clinical Summary ---
Author Organization [facility] Address [address] [place] [address] Care Team Providers Care Obstetrics Gyn Physician Name Role Phone Jessie Carlos MORTGAGE LOAN INTERVIEWER Primary Care Provider [phone] Allergies No known active allergies Medications MedicationSigDispense QuantityRefillsLast FilledStart DateEnd DateStatus cyanocobalamin, vitamin B-12, 1,000 mcg/mL Drop Take 1 tablet by mouth daily .Active vitamin E, dl, acetate, 22.5 mg (50 unit)/mL Drop Take 2 capsules by mouth daily .Active omega-3 acid ethyl esters (LOVAZA) 1 gram capsule Take 2 (two) capsules (2 g total) by mouth 2 (two) times a day .Active ergocalciferol (ERGOCALCIFEROL) 1,250 mcg (50,000 unit) capsule Take 1 (one) capsule (50,000 Units total) by mouth once a week .5Active calcium carbonate (OS-MARYCARMEN) 600 mg calcium (1,500 mg) tablet Take 2 (two) tablets (1,200 mg total) by mouth daily .5Active amLODIPine (NORVASC) 5 MG tablet Take by mouth .3Active Active Problems No known active problems Social History Tobacco UseTypesPacks/DayYears UsedDateSmoking Tobacco: Never Assessed CommentsUnknownSex and Gender InformationValueDate RecordedSex Assigned at Not on fileLegal HnjZebwbe30/25/2014 7:28 PM EDTGender IdentityNot on fileSexual OrientationNot on file Last Filed Vital Signs Vital SignReadingTime TakenCommentsBlood Pressure--Pulse--Temperature-- Respiratory Rate--Oxygen Saturation--Inhaled Oxygen Concentration--Gsfxgn58 kg (205 lb)05/09/2022 8:07 AM KDXItjalx290.5 cm (5' 2 )05/09/2022 8:07 AM ESTBody Mass Index37.49005/09/2022 8:07 AM EST Plan of Treatment Health MaintenanceDue DateLast DoneCommentsDexa Scan1942Medicare Wellness Visit1945Depression Screening/Follow-Up (PHQ-2/9)4Pneumococcal Vaccine: 50+ Years (1 of 1 - PCV)1992Zoster Vaccines (1 of 2)1992 Falls Risk Agzsydbfhe73/17/2007RSV Vaccines (1 - 1-dose 75+ series)2017 Tetanus/Diphtheria/Pertussis (2 - Td or Tdap), 03/19/2004 COVID-19 Vaccine ( - season)2024Influenza Vaccine (#1)2024 HIB VaccinesAged OutNo longer eligible based on patient's age to complete this topicHPV VaccinesAged OutNo longer eligible based on patient's age to complete this topicHepatitis A VaccinesAged OutNo longer eligible based on patient's age to complete this topicHepatitis B VaccinesAged OutNo longer eligible based on patient's age to complete this topicIPV VaccinesAged OutNo longer eligible based on patient's age to complete this topicMeningococcal ACWY VaccineAged OutNo longer eligible based on patient's age to complete this topicMeningococcal B VaccineAged OutNo longer eligible based on patient's age to complete this topic Rotavirus VaccinesAged OutNo longer eligible based on patient's age to complete this topic Insurance MemberSubscriberPlan / Payer (Effective 2007-Present)Name:Elisa Wills Member ID:[id number] Relation to Subscriber:SelfName:Elisa Wills Subscriber ID:[id number] Payer ID:Not on file Group ID:Not on file Type:Not on file [place] [facility] [id number] [address] [address] [place] [address] Care Teams Team MemberRelationshipSpecialtyStart DateEnd Date Jessie Carlos CNP [address] [place] [address] PCP - GeneralNurse Practitioner06/13/24
--- OUTSIDE RECORDS SUMMARY | 2025-02-16 10:56 | XMS_ITS | Clinical Summary ---
Author Organization [facility] Address [address] [place] [address] Care Team Providers Care Corsage Maker Name Role Phone Jessie Carlos MARBLE SETTER HELPER Unavailable Allergies No known active allergies Medications MedicationSigDispense QuantityRefillsLast FilledStart DateEnd DateStatus calcium carbonate 1500 (600 Ca) MG tablet Take 1,200 mg by mouth in the morning.5Active carboxymethylcellulose (Refresh Liquigel) 1 % ophthalmic solution dropperette 5Active Cyanocobalamin 1000 MCG/ML liquid Take 1 tablet by mouth in the morning.Active ergocalciferol (Vitamin D2) 1.25 MG (03584 UT) capsule Take 1 capsule by mouth once a weekActive lactobacillus (Culturelle) capsule Take 1 capsule by mouth in the morning and 1 capsule in the evening. Take with meals.4Active omega-3 acid ethyl esters (Lovaza) 1 g capsule Take 2 g by mouth in the morning and 2 g in the evening.Active pyridoxine (Vitamin B-6) 25 MG tablet take 1 tab po qd/bidActive Active Problems ProblemNoted DateDiagnosed DateAcute pain of left uubtahkc27/06/2025dult BMI 37.0-37.9 kg/sq m010/22/2024History of paranoid qropydhg47/06/2025Memory lqtsqetvzw20/06/2025Mixed mwrtsyehajwqlf00/06/2025Post-menopause bleeding 10/22/2024 Encounters DateTypeDepartmentCare GjawUiclpurifih07/06/2025Telephone [facility] [address] [place] [phone] Gaetano Rosen MD Ujflbdqi47/06/2025Telephone [facility] [address] [place] [address] Gaetano Rosen MD Advice Only12/18/2024 9:20 AM EDTOffice Visit [facility] [address] [place] [address] Gaetano Rosen MD Subclinical hyperthyroidism (Primary Dx); Thyroid madthv2412/18/2024amboo flowsheet [facility] [place] [facility] [address] [place] [address] Gaetano Rosen MD 12/09/2024 9:50 AM EDTOffice Visit [facility] [place] [facility] [address] [place] [address] Kylie Rice MD Thyroid mass (Primary Dx)12/09/2024amboo flowsheet [facility] [place] [facility] [address] [place] [address] Kylie Rice MD 12/09/20242403Nesqij36/22/2025Telephone [facility] [place] [facility] [address] [place] [address] Kylie Rice MD blood hniuqpw2612/05/2024Orders Only [facility] [place] [facility] [address] [place] [address] Kylie Rice MD 12/04/2024 9:50 AM EDTOffice Visit [facility] [address] [place] [address] Gaetano Rosen MD Subclinical hyperthyroidism (Primary Dx); Thyroid zhoqqr1612/04/2024Orders Only [facility] [place] [facility] [address] [place] [address] Gaetano Rosen MD 12/04/2024amboo flowsheet [facility] [place] [facility] [address] [place] [address] Gaetano Rosen MD 11/19/2024Orders Only [facility] [place] [facility] [address] [place] [address] Kylie Rice MD from Last 3 Months Family History RelationNameStatusCommentsFatherDeceasedMotherDeceased Social History Tobacco UseTypesPacks/DayYears UsedDateSmoking Tobacco: NeverSmokeless Tobacco: Never Tobacco Cessation:Counseling Given: Not Answered Alcohol UseStandard Drinks/WeekCommentsNever0 (1 standard drink = 0.6 oz pure alcohol)CommentsUnknownSex and Gender InformationValueDate RecordedSex Assigned at BirthNot on fileLegal GpwKziays94/15/2023 8:24 PM EDTGender Identity Not on fileSexual OrientationNot on file Last Filed Vital Signs Vital SignReadingTime TakenCommentsBlood Waeecmwy547/801 9:24 AM EDT Pkaec759512/18/2024 9:24 AM EDTTemperature--Respiratory Sxos4999 9:24 AM EDTOxygen Illocflgar83%12/18/2024 9:24 AM EDTInhaled Oxygen Concentration-- Grekwy84.2 kg (179 lb)12/18/2024 9:24 AM QUQKsbgwv425.4 cm (5')12/18/2024 9:24 AM EDTBody Mass Index34.9612/18/2024 9:24 AM EDT Plan of Treatment DateTypeDepartmentCare Team (Latest Contact Info)Kagkafgfuqg51/08/2026 9:50 AM ESTOffice Visit [facility] [place] [facility] [address] [place] [address] Gaetano Rosen MD [address] [place] [address] 04/15/2025 9:00 AM ESTOffice Visit [facility] [place] [facility] [address] [facility] [address] [place] [address] Kylie Rice MD [address] [facility] [address] [place] [address] Procedures Procedure NamePriorityDate/TimeAssociated IejtrrchmMjzdvlvlIUEXzuzlul21/18/2025 10:24 AM EDT Thyroid nodule Subclinical hyperthyroidism T4, CPKBBcuhmxh27/18/2025 10:24 AM EDT Thyroid nodule Subclinical hyperthyroidism T3, SSMKLexngnj03/18/2025 10:24 AM EDT Thyroid nodule Subclinical hyperthyroidism THYROID PEROXIDASE QTZSUQTXRKSvmxoaf63/18/2025 10:24 AM EDT Thyroid nodule Subclinical hyperthyroidism THYROTROPIN RECEPTOR XDUXGTCKXpsfmdy22/18/2025 10:24 AM EDT Thyroid nodule Subclinical hyperthyroidism THYROGLOBULIN CZYUXVGQLOUllxwbj02/18/2025 10:24 AM EDT Thyroid nodule Subclinical hyperthyroidism T3, BJNBKcwwxue70/18/2025 9:29 AM EDTT4, JZSLXgmxcgc60/18/2025 9:28 AM EDTTSH Gmiupdh2412/04/2024 9:27 AM EDTfrom Last 3 Months Results * Thyroid peroxidase antibody (12/04/2024 10:24 AM EDT)ComponentValueRef Range Test MethodAnalysis TimePerformed AtPathologist SignatureTHYROID PEROXIDASE (TPO) AB130 - 34 IU/mLLABCORPSpecimen (Source)Anatomical Location / Laterality Collection Method / VolumeCollection TimeReceived TimeBloodVenous blood specimen / Sytnduf1512/04/2024 10:24 AM EDT12/04/2024 Narrative [facility] - 12/05/2024 8:35 PM EDT Performed at: 03 - [facility] [address], [place], [place] ??[id number] Development Manager: Matias Flores PhD, Phone: ??[phone] Authorizing ProviderResult TypeResult StatusGaetano Rosen MDANTHONY MEDICAL CENTER BLOOD ORDERABLESFinal ResultPerforming OrganizationAddressty/State/ZIP CodePhone Number [facility] * Thyrotropin receptor antibody (12/04/2024 10:24 AM EDT)ComponentValueRef Range Test MethodAnalysis TimePerformed AtPathologist SignatureTHYROTROPIN RECEPTOR AB, SERUM<1.100.00 - 1.75 IU/LLABCORPSpecimen (Source)Anatomical Location / LateralityCollection Method / VolumeCollection TimeReceived TimeBloodVenous blood specimen / Yiopahy2112/04/2024 10:24 AM EDT12/04/2024 Narrative [facility] - 12/05/2024 8:35 PM EDT Performed at: [address] ??[id number] Development Manager: Shelia Thomason MD, Phone: ??[phone] Authorizing ProviderResult TypeResult StatusBlue [facility] Hospital, Inc.opal Rosen MDANTHONY MEDICAL CENTER BLOOD ORDERABLESFinal ResultPerforming OrganizationAddressty/State/ZIP CodePhone Number [facility] * Thyroglobulin Antibody (12/04/2024 10:24 AM EDT)ComponentValueRef RangeTest MethodAnalysis TimePerformed AtPathologist SignatureTHYROGLOBULIN ANTIBODY<1.0 0.0 - 0.9 IU/mLLABCORPComment: Thyroglobulin Antibody measured by Lea Nilson Methodology It should be noted that the presence of thyroglobulin antibodies may not be pathogenic nor diagnostic, especially at very low levels. The assay manager harbor has found that four percent of individuals without evidence of thyroid disease or autoimmunity will have positive TgAb levels up to 4 IU/mL. Specimen (Source)Anatomical Location / LateralityCollection Method / Volume Collection TimeReceived TimeBloodVenous blood specimen / Dovcutd4712/04/2024 10:24 AM EDT12/04/2024 Narrative [facility] - 12/05/2024 8:35 PM EDT Performed at: 03 - [address] ??[id number] Development Manager: Matias Flores PhD, Phone: ??[phone] Authorizing ProviderResult TypeResult StatusBlue Mountain Hospital, Inc.opal Rosen MDLAB BLOOD ORDERABLESFinal ResultPerforming OrganizationAddressCity/State/ZIP CodePhone Number [facility] * T3, free (12/04/2024 10:24 AM EDT) Only the most recent of2 resultswithin the time period is included. ComponentValueRef RangeTest MethodAnalysis TimePerformed AtPathologist Signature T3, FREE3.52.0 - 4.4 pg/mLLABCORPSpecimen (Source)Anatomical Location / LateralityCollection Method / VolumeCollection TimeReceived TimeBloodVenous blood specimen / Vnigjqi9012/04/2024 10:24 AM EDT12/04/2024 Narrative [facility] - 12/05/2024 8:35 PM EDT Performed at: 03 - [address] ??[id number] Development Manager: Matias Flores PhD, Phone: ??[phone] Authorizing ProviderResult TypeResult StatusGaetano CONRAD BLOOD ORDERABLESFinal ResultPerforming OrganizationAddressty/State/ZIP CodePhone Number [facility] * (ABNORMAL) TSH (12/04/2024 10:24 AM EDT) Only the most recent of2 resultswithin the time period is included. ComponentValueRef RangeTest MethodAnalysis TimePerformed AtPathologist Signature TSH0.206(L)0.450 - 4.500 uIU/mLLABCORPSpecimen (Source)Anatomical Location / LateralityCollection Method / VolumeCollection TimeReceived TimeBloodVenous blood specimen / Fmdrtww6012/04/2024 10:24 AM EDT12/04/2024 Narrative [facility] - 12/05/2024 8:35 PM EDT Performed at: - [facility] [address] [facility], [address] [place] [address] ??[id number] Development Manager: Arielle Valenzuela MD, Phone: ??[phone] Authorizing ProviderResult TypeResult StatusGaetano Rosen MDANTHONY MEDICAL [facility]ENTER BLOOD ORDERABLESFinal ResultPerforming OrganizationAddressCity/State/ZIP CodePhone Number [facility] * T4, free (12/04/2024 10:24 AM EDT) Only the most recent of2 resultswithin the time period is included. ComponentValueRef RangeTest MethodAnalysis TimePerformed AtPathologist Signature T4Free(Direct)0.940.82 - 1.77 ng/dLLABCORPSpecimen (Source)Anatomical Location / LateralityCollection Method / VolumeCollection TimeReceived TimeBloodVenous blood specimen / Uktowwc6012/04/2024 10:24 AM EDT12/04/2024 Narrative [facility] - 12/05/2024 8:35 PM EDT Performed at: 01 - [facility] [address], [address], [place], [place] ??[id number] Development Manager: Arielle Valenzuela MD, Phone: ??[phone] Authorizing ProviderResult TypeResult StatusAhmaopal Rosen MDLAB BLOOD ORDERABLESFinal ResultPerforming OrganizationAddressCity/State/ZIP CodePhone Number [facility] from Last 3 Months Insurance * Guarantor: Elisa Wills TypeRelation to PatientDate of BirthPhone Billing AddressPersonal/GgrthwJzmm[address] [place] [address] Advance Directives TypeDate RecordedPatient RepresentativeExplanationAdvance Directives and Living Will01/27/201962621920-00-29 Power of AttorneyAdvance Directives and Living Will Living Will Care Teams Team MemberRelationshipSpecialtyStart DateEnd Date Jessie Carlos NP [address] [place] [address] Referring PhysicianFamily Medicine10/28/24
[2025-02-16 11:21] LABS: Anion Gap 10.5; Blood Urea Nitrogen 11.0 mg/dL (7.0-18.0); Calcium 9.6 mg/dL (8.5-10.1); Carbon Dioxide 31.0 mmol/L (21.0-32.0); Chloride 105 mmol/L (98-107); Estimated GFR (African America >60 (>=60 mL/min/1.73m^2); Estimated GFR (Non-African Ame >60 (>=60 mL/min/1.73m^2); Glucose 95 mg/dL (74-106); Potassium 4.5 mmol/L (3.5-5.1); Sodium 142 mmol/L (136-145)
== END 2025-02-16 10:50 | disposition home or self-care (01) ==
PROVIDERS: PCP Nurse Practitioner; Visit Provider Internal Medicine Cardiovascular Disease
DX: R06.09 Other forms of dyspnea (principal); I11.9 Hypertensive heart disease without heart failure
CPT/HCPCS: 36415; 80048

== ENCOUNTER 2025-02-18 08:38 | Outpatient (OUT) | payer MEDICARE, OTHER, SELFPAY ==
--- OUTSIDE RECORDS SUMMARY | 2025-02-16 09:40 | XMS_ITS | Encounter Summary ---
Author Organization [facility] Address [address] [place] [address] Care Team Providers Care Actuarial Trainee Name Role Phone Terrance, Jessie CYBER POLICY AND STRATEGY PLANNER-C Primary Care Provider [phone] Reason for Visit * ReasonCommentsFollow-upPatient is here today for a follow up appointment along with surgery clearance for at [facility] hernia repair with Dr. Perdomo. Patient denies chest pain, palpitations/racing heart, fatigue, dizziness/lightheaded, edema. HypertensionHyperlipidemiaShortness of BreathSOB/AGUSTIN with over exertion Encounter Details DateTypeDepartmentCare Team (Latest Contact Info)Ainljoexbjm08/01/2025 9:40 AM ESTOffice Visit [facility] [address] [place] [address] Dave Johnson MD [address] [place] [address] Primary hypertension (Primary Dx); Incisional hernia, without obstruction or gangrene Social History Tobacco UseTypesPacks/DayYears UsedDateSmoking Tobacco: NeverSmokeless Tobacco: NeverAlcohol UseStandard Drinks/WeekCommentsNever0 (1 standard drink = 0.6 oz pure alcohol)Humiliation, Afraid, Rape, and Kick questionnaireAnswerDate RecordedWithin the last year, have you been afraid of your partner or ex-partner?No01/06/2025Emotionally AbusedNot on file01/06/2025Physically Abused Not on file01/06/2025Sexually AbusedNot on file01/06/2025PHQ-2AnswerDate RecordedPatient Health Questionnaire-2 Rvgnc258UT Safety & Environment AnswerDate RecordedFear of Current or Ex-PartnerNot on file05/11/2023Emotionally AbusedNot on file05/11/2023hysically AbusedNot on file05/11/2023Sexually Abused Not on file05/11/2023hysically or Sexually AbusedNot on file05/11/2023 CommentsNoSex and Gender InformationValueDate RecordedSex Assigned at Zigypm9101/06/2025 2:00 PM EDTLegal WihIaeues44/15/2023 12:50 PM EDTGender BlnajewnRwemzr47/21/2025 2:00 PM EDTSexual OrientationHeterosexual or Straight 01/06/2025 2:00 PM EDTdocumented as of this encounter Last Filed Vital Signs Vital SignReadingTime TakenCommentsBlood Efcdsjrm078/9202/16/2025 10:14 AM EST Humoo393402/16/2025 9:52 AM ESTTemperature--Respiratory Rate--Oxygen Jpuklaxxeb27% 02/16/2025 9:52 AM ESTInhaled Oxygen Concentration--Idlqzg70.8 kg (187 lb) 02/16/2025 9:52 AM JPFPphygx406.4 cm (5')02/16/2025 9:52 AM ESTBody Mass Index 36.5202/16/2025 9:52 AM ESTdocumented in this encounter Patient Instructions * Attachments The following attachments cannot be sent through Care Everywhere. * How to Take Your Blood Pressure Cort-to-Jtux (Azeri) * Heart-Healthy Eating Plan (Azeri) documented in this encounter Progress Notes * Dave Johnson MD - 02/16/2025 9:40 AM EST Subjective Patient ID: Elisa Wills is a 84 y.o. female who presents for Follow-up (Patient is here today for a follow up appointment along with surgery clearance for at [facility] hernia repair with Dr. Perdomo. Patient denies chest pain, palpitations/racing heart, fatigue, dizziness/lightheaded, edema. ), Hyperte nsion, Hyperlipidemia, and Shortness of Breath (SOB/AGUSTIN with over exertion). Here for pre-operative visit for hernia repair by Dr. Perdomo. No chest pain or SOB. Able to work in the garden, carry sand bags into back of truck this weekend, without problems. Was on blood pressure medications which she quit they have too many side effects and if you do it naturally there aren't any side effects States BP at home 120-140 systolic Hypertension Pertinent negatives include no chest pain, palpitations or shortness of breath. Hyperlipidemia Pertinent negatives include no chest pain or shortness of breath. Shortness of Breath Pertinent negatives include no chest pain, leg swelling or wheezing. Review of Systems Respiratory: Negative for chest tightness, shortness of breath and wheezing. Cardiovascular: Negative for chest pain, palpitations and leg swelling. Gastrointestinal: Negative for anal bleeding. Genitourinary: Negative for hematuria. Neurological: Negative for dizziness, syncope and light-headedness. Objective Visit Vitals BP (!) 190/92 (BP Location: Left arm, Patient Position: Sitting) Pulse 52 Physical Exam Constitutional: Appearance: Normal appearance. She is obese. Cardiovascular: Rate and Rhythm: Normal rate and regular rhythm. No extrasystoles are present. Chest Wall: PMI is not displaced. Pulses: Carotid pulses are 2+ on the right side and 2+ on the left side. Radial pulses are 2+ on the right side and 2+ on the left side. Heart sounds: Normal heart sounds, S1 normal and S2 normal. Heart sounds not distant. No murmur heard. No friction rub. No gallop. Pulmonary: Effort: Pulmonary effort is normal. Breath sounds: Normal breath sounds. Abdominal: Palpations: Abdomen is soft. Comments: Two midline scars, one transverse, the other longitudinal Musculoskeletal: Right lower leg: No edema. Left lower leg: No edema. Skin: General: Skin is warm and dry. Neurological: General: No focal deficit present. Mental Status: She is alert and oriented to person, place, and time. Psychiatric: Mood and Affect: Mood normal. Thought Content: Thought content normal. Judgment: Judgment normal. Recent EKG strip ([facility]) reviewed by me: normal) Assessment/Plan Mrs. Wills has untreated high blood pressure and has not been taking indicated treatment. This puts her at increased risk of stroke, [place], renal failure etc. Would recommend we obtain echo to assess for hypertensive heart disease, check BMP for kidney function and that she record home blood pressures for review. Will provide educational material on this. Regarding abdominal surgery, she has good functional capacity and a normal baseline EKG. I believe she can undergo abdominal surgery with acceptable perioperative risk. Diagnosis Plan 1. Primary hypertension 2. Incisional hernia, without obstruction or gangrene Follow up in about 6 weeks (around 03/30/2025) for Recheck. documented in this encounter Plan of Treatment DateTypeDepartmentCare Team (Latest Contact Info)Kiessdmqdms80/12/2026 11:00 AM ESTOffice Visit [facility] [address] [place] [phone] Dave Johnson MD [address] [place] [phone] documented as of this encounter Visit Diagnoses Diagnosis Primary hypertension- Primary Unspecified essential hypertension Incisional hernia, without obstruction or gangrene documented in this encounter Care Teams Team MemberRelationshipSpecialtyStart DateEnd Date Jessie Carlos FNP-C [address] [place] [address] PCP - GeneralNurse Kytgrgsvwvja60/21/25documented as of this encounter
--- OUTSIDE RECORDS SUMMARY | 2025-02-18 08:43 | XMS_ITS | Clinical Summary ---
Author Organization [facility] Address [address] [place] [address] Care Team Providers Care Market Research Worker Name Role Phone Jessie Carlos BUFFING WHEEL FORMER MACHINE-C Primary Care Provider [phone] Allergies No known active allergies Medications MedicationSigDispense QuantityRefillsLast FilledStart DateEnd DateStatus cyanocobalamin, vitamin B-12, 1,000 mcg/mL drops Take 1 tablet by mouth in the morning.Active calcium carbonate 600 mg calcium (1,500 mg) tablet Take 1,200 mg by mouth in the morning.Active ergocalciferol (Vitamin D-2) 1.25 MG (42145 Units) capsule Take 1 capsule by mouth 1 (one) time per week.Active omega-3 acid ethyl esters (Lovaza) 1 gram capsule Take 2 g by mouth twice a day.Active garlic 1,000 mg capsule Take 6,000 mg by mouth 1 (one) time each day.Active ASHWAGANDHA EXTRACT ORAL Take 1 tablet by mouth in the morning.Active Active Problems ProblemNoted DateDiagnosed DateExcessive lqagdumq14/26/2025Flank pain02/11/2025 Ganglion cyst of dorsum of right wrist02/11/2025Hair qeovxffb44/26/2025 Dnzefbuzvciunhdyqn83/26/7880Xuyznwrnadycbwu44/26/2025Lipoma of back02/11/2025 Lipoma of upper arm02/11/2025Mass of soft tissue of upper arm02/11/2025Nonsmoker 02/11/2025Obesity due to excess /26/2025Recurrent ventral incisional cjfiyw7602/11/2025S/P ygegcjmmcvvucoi61/26/2025Skin texture iptxxko4502/11/2025Wart of hand02/11/2025ute pain of left aorerslw01/06/2025History of paranoid vblnfeiy14/06/2025Memory vjmdanhooo18/06/2025dult BMI 37.0-37.9 kg/sq m 10/22/2024Post-menopause hfhhoqgy78/06/2025Mild lwqljefseeyx82/01/2024 Nfhpdritqapr30/30/2024 Encounters DateTypeDepartmentCare ClekYrhovrzwwve19/01/2025 9:40 AM ESTOffice Visit 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 avjufrc9101/06/2025 3:31 PM EDT - 01/06/2025 11:59 PM EDTHospital Encounter [facility] [address] [place] [address] Incisional hernia, without obstruction or gangrene; Abdominal wall mass Discharge Disposition: Home or Self Care ()01/06/2025 2:45 PM EDTConsult [facility] [address] [place] [address] Manfred Perdomo MD Incisional hernia, without obstruction or gangrene (Primary Dx); Abdominal wall mass; Easy bruising; Preop cardiovascular exam12/15/2024 12:05 AM EDT - 12/15/2024 11:59 PM EDT Hospital Encounter [facility] Radiology External Films [address] [place] [address] Discharge Disposition: Home or Self Care ()12/15/2024 - 12/15/2024 12:04 AM EDTHospital Encounter [facility] Radiology External Films [address] [place] [address] Discharge Disposition: Home or Self [...] 01/06/2025Sexually AbusedNot on file01/06/2025PHQ-2AnswerDate RecordedPatient Health Questionnaire-2 Jrfpd339UT Safety & EnvironmentAnswerDate RecordedFear of Current or Ex-PartnerNot on file05/11/2023Emotionally AbusedNot on file05/11/2023hysically AbusedNot on file05/11/2023Sexually AbusedNot on file05/11/2023hysically or Sexually AbusedNot on file05/11/2023Comments NoSex and Gender InformationValueDate RecordedSex Assigned at BirthFemale 01/06/2025 2:00 PM EDTLegal DniYzjdjj38/15/2023 12:50 PM EDTGender Identity Ksfrvk7001/06/2025 2:00 PM EDTSexual OrientationHeterosexual or Rqrzqeif12/21/2025 2:00 PM EDT Last Filed Vital Signs Vital SignReadingTime TakenCommentsBlood Wdntpmky313/9202/16/2025 10:14 AM EST Novaf605402/16/2025 9:52 AM CQVVmvyibjpgjt73.6 ??C (97.9 ??F)01/06/2025 2:52 PM EDTRespiratory Srgm6866 2:52 PM EDTOxygen Dchxknsdrv67%02/16/2025 9:52 AM ESTInhaled Oxygen Concentration--Ufqnlv83.8 kg (187 lb)02/16/2025 9:52 AM EST Nisemr662.4 cm (5')02/16/2025 9:52 AM ESTBody Mass Index36.5202/16/2025 9:52 AM EST Plan of Treatment DateTypeDepartmentCare Team (Latest Contact Info)Kzaltveiqgx63/12/2026 11:00 AM ESTOffice Visit [facility] [address] [place] [address] Dave Johnson MD [address] [place] [address] Health MaintenanceDue DateLast DoneCommentsMedicare Annual Wellness (AWV) 2Pneumococcal Vaccine: 50+ Years (1 of 1 - PCV)1992Zoster Vaccines (1 of 2)1992Adult Uyjxvhf31, 03/19/2004COVID-19 Vaccine (1 - season)2024Influenza Vaccine (#1)2024Depression Uvmvshmss62Fall Risk Vtrcljaid30HIB Vaccines Aged OutNo longer eligible based on [...] Abdominal wall mass US TRANSFER OF OUTSIDE EFGQQQwlkezk21/29/2025 12:[address] TRANSFER OF OUTSIDE GWBUXZbvxtpe53/29/2025 12:00 AM EDT from Last 3 Months Results * ECG 12 lead (01/06/2025 4:33 PM EDT)ComponentValueRef RangeTest MethodAnalysis TimePerformed AtPathologist SignatureVentricular Awlj41MIZGA MUSEAtrial Rate57 BPMGE MUSEPR Ivfpgypn421lrME MUSEQRS FGEMOPYO32dwST MUSEQT Tldemlsh853xzFI MUSEQTC CALCULATION(BAZETT)414msGE MUSEP Bbjf69vmicerdEG MUSER-Hlev70sktryoqHM MUSET Wave Xoia78ocjshzuNS MUSESpecimen (Source)Anatomical Location / LateralityCollection Method / [...] MemberRelationshipSpecialtyStart DateEnd Jessie Carlos FNP-C [address] [place] [address] PCP - GeneralNurse Bdlqmfvjuumo50/21/25
--- OUTSIDE RECORDS SUMMARY | 2025-02-18 08:44 | XMS_ITS | Clinical Summary ---
Author Organization [facility] Address [address] [place] [address] Care Team Providers Care Hydraulic Barker Operator Name Role Phone Jessie Carlos ACCOUNTS SPECIALIST Unavailable Allergies No known active allergies Medications MedicationSigDispense QuantityRefillsLast FilledStart DateEnd DateStatus calcium carbonate 1500 (600 Ca) MG tablet Take 1,200 mg by mouth in the morning.5Active carboxymethylcellulose (Refresh Liquigel) 1 % ophthalmic solution dropperette 5Active Cyanocobalamin 1000 MCG/ML liquid Take 1 tablet by mouth in the morning.Active ergocalciferol (Vitamin D2) 1.25 MG (30900 UT) capsule Take 1 capsule by mouth [...] Problems ProblemNoted DateDiagnosed DateAcute pain of left dtqiamnj56/06/2025dult BMI 37.0-37.9 kg/sq m010/22/2024History of paranoid ldmwfoty95/06/2025Memory /06/2025Mixed niilogpurmirrh76/06/2025Post-menopause bleeding 10/22/2024 Encounters DateTypeDepartmentCare QlveQmjmlbmssrj38/06/2025Telephone [facility] [address] [place] [phone] Gaetano Rosen MD Ovooyxpg14/06/2025Telephone [facility] [address] [place] [address] Gaetano Rosen MD Advice Only12/18/2024 9:20 AM EDTOffice Visit [facility] [address] [place] [address] Gaetano Rosen MD Subclinical hyperthyroidism (Primary Dx); Thyroid julemm9812/18/2024amboo flowsheet [facility] [place] [facility] [address] [place] [address] Gaetano Rosen MD 12/09/2024 9:50 AM EDTOffice Visit [facility] [place] [facility] [address] [place] [address] Kylie Rice MD Thyroid mass (Primary Dx)12/09/2024amboo flowsheet [facility] [place] [facility] [address] [place] [address] Kylie Rice MD 12/09/20243173Bzelck11/22/2025Telephone [facility] [place] [facility] [address] [place] [address] Kylie Rice MD blood ipcqrzp8212/05/2024Orders Only [facility] [place] [facility] [address] [place] [address] Kylie Rice MD 12/04/2024 9:50 AM EDTOffice Visit [facility] [address] [place] [address] Gaetano Rosen MD Subclinical hyperthyroidism (Primary Dx); Thyroid vcntnd4412/04/2024Orders Only [facility] [address] [place] [address] Gaetano Rosen MD 12/04/2024amboo flowsheet [facility] [place] [facility] [address] [place] [address] Gaetano Rosen MD 11/19/2024Orders Only [facility] [place] [facility] [address] [place] [address] Kylie Rice MD from Last 3 Months Family History RelationNameStatusCommentsFatherDeceasedMotherDeceased Social History Tobacco UseTypesPacks/DayYears UsedDateSmoking Tobacco: NeverSmokeless Tobacco: Never Tobacco Cessation:Counseling Given: Not Answered Alcohol UseStandard Drinks/WeekCommentsNever0 (1 standard drink = 0.6 oz pure alcohol)CommentsUnknownSex and Gender InformationValueDate RecordedSex Assigned at BirthNot on fileLegal ScuApqtmf32/15/2023 8:24 PM EDTGender Identity Not on fileSexual OrientationNot on file Last Filed Vital Signs Vital SignReadingTime TakenCommentsBlood Hwsuiwph532/801 9:24 AM EDT Gtlus674112/18/2024 9:24 AM EDTTemperature--Respiratory Zpqe3591 9:24 AM EDTOxygen Cowdzjzgqh29%12/18/2024 9:24 AM EDTInhaled Oxygen Concentration-- Phiuqm79.2 kg (179 lb)12/18/2024 9:24 AM JXTWawrdx224.4 cm (5')12/18/2024 9:24 AM EDTBody Mass Index34.9612/18/2024 9:24 AM EDT Plan of Treatment DateTypeDepartmentCare Team (Latest Contact Info)Lkwaskpgrai21/08/2026 9:50 AM ESTOffice Visit [facility] [place] [facility] [address] [place] [phone] Gaetano Rosen MD [address] [place] [address] 04/15/2025 9:00 AM ESTOffice Visit [facility] [place] [facility] [address] [facility] [address] [place] [address] Kylie Rice MD [address] [facility] [address] [place] [address] Procedures Procedure NamePriorityDate/TimeAssociated ImahuzfltOzxlvsgjDQACurphym82/18/2025 10:24 AM EDT Thyroid nodule Subclinical hyperthyroidism T4, ZALCSrwbmhe44/18/2025 10:24 AM EDT Thyroid nodule Subclinical hyperthyroidism T3, QMZFSwzjjdq58/18/2025 10:24 AM EDT Thyroid nodule Subclinical hyperthyroidism THYROID PEROXIDASE ROCXATUIGAKdwaggu25/18/2025 10:24 AM EDT Thyroid nodule Subclinical hyperthyroidism THYROTROPIN RECEPTOR RUIVYGANXlxumgs50/18/2025 10:24 AM EDT Thyroid nodule Subclinical hyperthyroidism THYROGLOBULIN QCSSAHNKTSWngjxov25/18/2025 10:24 AM EDT Thyroid nodule Subclinical hyperthyroidism T3, ZSHDTbhieck35/18/2025 9:29 AM EDTT4, HPUFBkaufgd16/18/2025 9:28 AM EDTTSH Dzctnfp0712/04/2024 9:27 AM EDTfrom Last 3 Months Results * Thyroid peroxidase antibody (12/04/2024 10:24 AM EDT)ComponentValueRef Range Test MethodAnalysis TimePerformed AtPathologist SignatureTHYROID PEROXIDASE (TPO) AB130 - 34 IU/mLLABCORPSpecimen (Source)Anatomical Location / Laterality Collection Method / VolumeCollection TimeReceived TimeBloodVenous blood specimen / Tnlmwdh0812/04/2024 10:24 AM EDT12/04/2024 Narrative [facility] - 12/05/2024 8:35 PM EDT Performed at: 03 - [facility] [address], [place], [place] ??[id number] Senior Financial Consultant: Matias Flores PhD, Phone: ??[phone] Authorizing ProviderResult TypeResult StatusGaetano Rosen MDKINGMAN COMMUNITY [facility]PITAL BLOOD ORDERABLESFinal ResultPerforming OrganizationAddressty/State/ZIP CodePhone Number [facility] * Thyrotropin receptor antibody (12/04/2024 10:24 AM EDT)ComponentValueRef Range Test MethodAnalysis TimePerformed AtPathologist SignatureTHYROTROPIN RECEPTOR AB, SERUM<1.100.00 - 1.75 IU/LLABCORPSpecimen (Source)Anatomical Location / LateralityCollection Method / VolumeCollection TimeReceived TimeBloodVenous blood specimen / Pqtowyi3812/04/2024 10:24 AM EDT12/04/2024 Narrative [facility] - 12/05/2024 8:35 PM EDT Performed at: [address] ??[id number] Senior Financial Consultant: Shelia Thomason MD, Phone: ??[phone] Authorizing ProviderResult TypeResult StatusSt. Mark'S Hospitalopal Rosen MDKINGMAN COMMUNITY [facility] BLOOD ORDERABLESFinal ResultPerforming OrganizationAddressty/State/ZIP CodePhone Number [facility] * Thyroglobulin Antibody (12/04/2024 10:24 AM EDT)ComponentValueRef RangeTest MethodAnalysis TimePerformed AtPathologist SignatureTHYROGLOBULIN ANTIBODY<1.0 0.0 - 0.9 IU/mLLABCORPComment: Thyroglobulin Antibody measured by Lea Nilson Methodology It should be noted that the presence of thyroglobulin antibodies may not be pathogenic nor diagnostic, especially at very low levels. The assay front end specialist has found that four percent of individuals without evidence of thyroid disease or autoimmunity will have positive TgAb levels up to 4 IU/mL. Specimen (Source)Anatomical Location / LateralityCollection Method / Volume Collection TimeReceived TimeBloodVenous blood specimen / Aowacdb4312/04/2024 10:24 AM EDT12/04/2024 Narrative [facility] - 12/05/2024 8:35 PM EDT Performed at: 03 - [address] ??[id number] Senior Financial Consultant: Matias Flores PhD, Phone: ??[phone] Authorizing ProviderResult TypeResult StatusSt. Mark'S Hospitalopal Rosen MDLAB BLOOD ORDERABLESFinal ResultPerforming OrganizationAddressCity/State/ZIP CodePhone Number [facility] * T3, free (12/04/2024 10:24 AM EDT) Only the most recent of2 resultswithin the time period is included. ComponentValueRef RangeTest MethodAnalysis TimePerformed AtPathologist Signature T3, FREE3.52.0 - 4.4 pg/mLLABCORPSpecimen (Source)Anatomical Location / LateralityCollection Method / VolumeCollection TimeReceived TimeBloodVenous blood specimen / Qjefyys7112/04/2024 10:24 AM EDT12/04/2024 Narrative [facility] - 12/05/2024 8:35 PM EDT Performed at: 03 - [address] ??[id number] Senior Financial Consultant: Matias Flores PhD, Phone: ??[phone] Authorizing ProviderResult TypeResult StatusGaetano CONRAD BLOOD ORDERABLESFinal ResultPerforming OrganizationAddressty/State/ZIP CodePhone Number [facility] * (ABNORMAL) TSH (12/04/2024 10:24 AM EDT) Only the most recent of2 resultswithin the time period is included. ComponentValueRef RangeTest MethodAnalysis TimePerformed AtPathologist Signature TSH0.206(L)0.450 - 4.500 uIU/mLLABCORPSpecimen (Source)Anatomical Location / LateralityCollection Method / VolumeCollection TimeReceived TimeBloodVenous blood specimen / Bvaizeq4512/04/2024 10:24 AM EDT12/04/2024 Narrative [facility] - 12/05/2024 8:35 PM EDT Performed at: - [facility] [address], [address] [place] [address] ??[id number] Senior Financial Consultant: Arielle Valenzuela MD, Phone: ??[phone] Authorizing ProviderResult TypeResult StatusGaetano Rosen MDKINGMAN COMMUNITY [facility] BLOOD ORDERABLESFinal ResultPerforming OrganizationAddressCity/State/ZIP CodePhone Number [facility] * T4, free (12/04/2024 10:24 AM EDT) Only the most recent of2 resultswithin the time period is included. ComponentValueRef RangeTest MethodAnalysis TimePerformed AtPathologist Signature T4Free(Direct)0.940.82 - 1.77 ng/dLLABCORPSpecimen (Source)Anatomical Location / LateralityCollection Method / VolumeCollection TimeReceived TimeBloodVenous blood specimen / Mwnpcwn9312/04/2024 10:24 AM EDT12/04/2024 Narrative [facility] - 12/05/2024 8:35 PM EDT Performed at: 01 - [facility] [address], [place], [place] ??[id number] Senior Financial Consultant: Arielle Valenzuela MD, Phone: ??[phone] Authorizing ProviderResult TypeResult StatusAhmaopal Rosen MDLAB BLOOD ORDERABLESFinal ResultPerforming OrganizationAddressCity/State/ZIP CodePhone Number [facility] from Last 3 Months Insurance * Guarantor: Elisa Wills TypeRelation to PatientDate of BirthPhone Billing AddressPersonal/NjqdbbZdne[address] [facility] [place] [address] Advance Directives TypeDate RecordedPatient RepresentativeExplanationAdvance Directives and Living Will01/27/[id number] Power of AttorneyAdvance Directives and Living Will Living Will Care Teams Team MemberRelationshipSpecialtyStart DateEnd Date Jessie Carlos NP [address] [place] [address] Referring PhysicianFamily Medicine10/28/24
--- OUTSIDE RECORDS SUMMARY | 2025-02-18 08:44 | XMS_ITS | Encounter Summary ---
Author Organization [facility] Address [address] [place] [address] Care Team Providers Care Airbrush Artist Technical Name Role Phone Jessie Carlos COOK FRY-C Primary Care Provider [phone] Reason for Referral * Imaging (Routine) - Pending ReviewSpecialtyDiagnoses / ProceduresReferred By ContactReferred To ContactCardiology Diagnoses AGUSTIN (dyspnea on exertion) Benign hypertensive heart disease 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 failure Procedures Transthoracic echo (TTE) complete Dave Johnson MD [address] [place] [address] Phone: tel: fax: Referral IDStatusReasonStart DateExpiration DateVisits RequestedVisits [id number] Review Perform Procedure Encounter Details DateTypeDepartmentCare Team (Latest Contact Info)Jivjcgihutd05/01/2025Orders Only [facility] [place] [address] [place] [address] Rosemary Curiel MA AGUSTIN (dyspnea [...] file01/06/2025Sexually AbusedNot on file01/06/2025PHQ-2AnswerDate RecordedPatient Health Questionnaire-2 Ftien520UT Safety & Environment AnswerDate RecordedFear of Current or Ex-PartnerNot on 05/11/2023Emotionally AbusedNot on file05/11/2023hysically AbusedNot on file05/11/2023Sexually Abused Not on 05/11/2023hysically or Sexually AbusedNot on file05/11/2023 CommentsNoSex and Gender InformationValueDate RecordedSex Assigned at Uxlqgh8701/06/2025 2:00 PM EDTLegal GnfWripqk01/15/2023 12:50 PM EDTGender ZokynflcPhmrfs11/21/2025 2:00 PM EDTSexual OrientationHeterosexual or Straight 01/06/2025 2:00 PM EDTdocumented as of this encounter Plan of Treatment DateTypeDepartmentCare Team (Latest Contact Info)Lixhayxubzi08/12/2026 11:00 AM ESTOffice Visit [facility] [place] [address] [place] [address] Dave Johnson MD [address] [place] [address] NameTypePriorityAssociated DiagnosesOrder ScheduleBasic metabolic panelLab Routine [...] DateEnd Date Jessie Carlos FNP-C [address] [place] [address] PCP - GeneralNurse Bqlifiosjaex87/21/25documented as of this encounter
--- OUTSIDE RECORDS SUMMARY | 2025-02-18 08:44 | XMS_ITS | Clinical Summary ---
Author Organization [employer] Address [id number] [place] [address] Care Team Providers Care Pipe Fitter Marine Name Role Phone No Pcp, No Pcp [...] standard drink = 0.6 oz pure alcohol)ChildcareAnswerDate AxeacafeNntndzgcnWwjtasj25/12/2019EmploymentAnswer Date UopyxrjrTsdwqhqzwjFwbfzgq35/12/2019Purpose - LifeAnswerDate RecordedPurpose and direction in hdnmCvgsmvo08/11/2021CommentsNoSex and Gender InformationValueDate RecordedSex Assigned at BirthNot on fileLegal SexFemale 10/22/2014 11:24 AM EDTGender IdentityNot on fileSexual OrientationNot on file Last Filed Vital Signs Vital SignReadingTime TakenCommentsBlood Kgvnlmjv505/7208 9:38 AM EDT Pwgar391511/01/2017 9:38 AM IOHBphrvhgikpq72.4 ??C (97.5 ??F)11/01/2017 9:38 AM EDTRespiratory Ltbg981811/01/2017 9:38 AM EDTOxygen Bkemwyksyv75%11/01/2017 9:38 AM EDTInhaled Oxygen Concentration--Isxuwh49 kg (194 lb 0.1 oz)11/01/2017 9:38 AM ZGRKnunhf518.5 cm (5' 2 )11/01/2017 9:38 AM EDTBody Mass Index35.48011/01/2017 9:38 AM EDT Plan of Treatment Health MaintenanceDue DateLast DoneCommentsDepression Fvokwwozy95/17/1954Tobacco Ybdnmubcl65/17/1954DTaP,Tdap and Td Vaccines (1 - Tdap)1961Zoster (Shingles) Vaccine (1 of 2)1992Fall Risk Csofzwdhs27/17/2007RSV ( or age 60+ yrs) (1 - 1-dose 75+ series)2017Influenza Idsoqfr1111/17/2024 Medical Devices Not on file Insurance Care Teams Team MemberRelationshipSpecialtyStart DateEnd Date No Pcp, [place] [address] PCP - GeneralFamily Medicine11/01/17
--- OUTSIDE RECORDS SUMMARY | 2025-02-18 08:44 | XMS_ITS | Clinical Summary ---
Author Organization [facility] Address [address] [place] [address] Care Team Providers Care Swage Toolsetter Name Role Phone Jessie Carlos VICE PRESIDENT OF BRAND MANAGEMENT Primary Care Provider [phone] Allergies No known active allergies Medications MedicationSigDispense [...] InformationValueDate RecordedSex Assigned at Not on fileLegal NjaDtsgnc30/25/2014 7:28 PM EDTGender IdentityNot on fileSexual OrientationNot on file Last Filed Vital Signs Vital SignReadingTime TakenCommentsBlood Pressure--Pulse--Temperature-- Respiratory Rate--Oxygen Saturation--Inhaled Oxygen Concentration--Rxdrya93 kg (205 lb)05/09/2022 8:07 AM JJPAexbdw079.5 cm (5' 2 )05/09/2022 8:07 AM ESTBody Mass Index37.49005/09/2022 8:07 AM EST Plan of Treatment Health MaintenanceDue DateLast DoneCommentsDexa Scan1942Medicare Wellness Visit1945Depression Screening/Follow-Up (PHQ-2/9)4Pneumococcal Vaccine: 50+ Years (1 of 1 - PCV)1992Zoster Vaccines (1 of 2)1992 Falls Risk Kwwyphzsxn91/17/2007RSV Vaccines (1 - 1-dose 75+ series)2017 Tetanus/Diphtheria/Pertussis [...] MemberSubscriberPlan / Payer (Effective 2007-Present)Name:Elisa Wills Member ID:[id number] Relation to Subscriber:SelfName:Elisa Wills Subscriber ID:[id number] Payer ID:Not on file Group ID:Not on file Type:Not on file Address: [facility] J[employer] A CLAIMS [address] [address] [place] [address] Care Teams Team MemberRelationshipSpecialtyStart DateEnd Date Jessie Carlos CNP [address] [place] [address] PCP - GeneralNurse Practitioner06/13/24
--- OUTSIDE RECORDS SUMMARY | 2025-02-18 08:45 | XMS_ITS | CCD ---
Author Organization [facility] Care Team Providers Care Napper Runner Name Role Phone DR MIGEL RAMSEY Consulting Unavailable FAWWAD, ARAIZA H Primary Care Unavailable FAWWAD, ARAIZA H Attending Unavailable FAWWAD, ARAIZA H Admitting Unavailable FAWWAD, ARAIZA H Consulting Unavailable No, Physician Primary Care Provider Unavailobi e Camila Carlos Primary Care Physician COSMO, CAMILA Primary Care Unavailable OLEARAMON CHANDRA Consulting Unavailable GHJOVAN DIAZ Attending Unavailable HERMANARIAN JOVAN Admitting Unavailable Cosmo MAINTENANCE JOURNEYMAN - ENDOSCOPY RN, Camila Primary Care Provider IACOB, RADHIKA Referring Unavailable COSMO, CAMILA Primary Care Unavailable IACOB, RADHIKA Referring Unavailable COSMO, CAMILA Primary Care Unavailable COSMO, CAMILA Primary Care Unavailable MICHELLE COX Admitting Unavailable MICHELLE COX Attending Unavailable OLEA, RAMON De La Vega Admitting Unavailable OLEARAMON Attending Unavailable COSMO, CAMILA Primary Care Unavailable [...] FADLUIS FELIPE De La Vega Admitting Unavailable Arnol Huston Jr Attending Unavailable Al Shweiki, Ernesto Attending Unavailable Mykel Cordova, Ernesto Referring Unavailable Mykel Cordova MD, Ernesto Unavailable Unavailabl e Cosmo, Camila L Attending Unavailable Cosmo, Camila L Admitting Unavailable JIMMIE, KIA A Admitting Unavailable JIMMIE, KIA A Attending Unavailable JIMMIE, KIA A Attending Unavailable Cosmo Camila MCCALL Unavailable Cosmo, Camila L Attending Unavailable Cosmo, Camila L Admitting Unavailable Cosmo, Camila L Admitting Unavailable Cosmo, Camila Moreno Attending Unavailable NILL, Alfonso Scott Attending Unavailable Cosmo, Camila Moreno Attending Unavailable Cosmo, Camila Moreno Attending Unavailable Cosmo, Camila Moreno Attending Unavailable Cosmo, Camila Moreno Admitting Unavailable Cuauhtemoc Jacobo MD Attending Provider Unavailab abelardo Dudley MD, Alfonso Scott Attending Provider [phone] Krystal Shook, Cuauhtemoc Fragoso Admitting Unavailable Timmis , Cuauhtemoc Fragoso Attending Unavailable Nill, Alfonso Scott Attending Unavailable Nill, Alfonso Scott Admitting Unavailable Cosmo, MULTIMEDIA PROGRAMMER Camila Moreno Attending Unavailable Cosmo, MULTIMEDIA PROGRAMMER Camila L Attending Unavailable JIMMIE, NUTS AND BOLTS ASSEMBLER KIA De La Vega Attending Unavailabl e Cosmo, MULTIMEDIA PROGRAMMER Camila Moreno Attending Unavailable Cosmo, MULTIMEDIA PROGRAMMER Camila Moreno Admitting Unavailable Cosmo, MULTIMEDIA PROGRAMMER Camila Moreno Attending Unavailable Cosmo, Camila Moreno Attending Unavailable Cosmo, Camila Moreno Admitting Unavailable TIMMISCUAUHTEMOC Attending Unavailable SANNAGAETANO LANDON F Attending Unavailable COSMO, CAMILA Referring Unavailable TIMMICUAUHTEMOC Cannon Attending Unavailable SANNAGAETANO LANDON F Attending Unavailable JIMMIE, KIA A Referring Unavailable JIMMIE, KIA A Admitting Unavailable JIMMIE, KIA A Attending Unavailable JIMMIE, KIA A Referring Unavailable IJMMIE, KIA A Admitting Unavailable JIMMIE, KIA A Attending Unavailable NILL, Alfonso Scott Attending Unavailable JIMMIE, KIA De La Vega Attending Unavailable BERMUDEZ, JIANLIN Referring Unavailable BERMUDEZ, JIANLIN Referring Unavailable BERMUDEZ, JIANLIN Referring Unavailable BERMUDEZ, JIAHARIKAIN Attending Unavailable NILL, Alfonso Scott Attending Unavailable JIMMIE, NUTS AND BOLTS ASSEMBLER KIA De La Vega Attending Unavailabl e JIMMIE, NUTS AND BOLTS ASSEMBLER KIA De La Vega Attending Unavailabl e TIMMISCUAUHTEMOC Attending Unavailable TIMMICUAUHTEMOC Cannon Consulting Unavailable TIMMICUAUHTEMOC Cannon Admitting Unavailable Allergies Allergy ClassificationReported Allergen(s)Allergy TypeDate of OnsetReaction(s) Facility (1 source)CorticosteroidsDrug allergy (disorder)[phone] Medications Current Medications MedicationDrug Class(es)DatesSig (Normalized)Sig (Original)Acetaminophen (4 sources)Start: 05-96-5079mbvixlfmyqpce (TYLENOL) tablet 650 mgStart: 07-18-2023 End: 21-92-8794hxpptfxkiyzxp (TYLENOL) tablet 650 mgStart: 07-17-2023 End: 97-97-4915qzffudftkvylu (TYLENOL) tablet 650 mgacetaminophen 325 mg / HYDROcodone bitartrate 5 mg oral tablet (1 source)Opioid AgonistStart: 07-18-2023 End: 82-18-3592OKSHPfvsvvi-acetaminophen (NORCO) 5-325 MG per tablet Indications: Incarcerated ventral hernia , Post-op pain Take 1 tablet by mouth every 6 hours as needed for Pain (may use 1 or 2) for up to 7 days. Max Daily Amount: 4 tablets 12 tablet 0 07/18/2023 07/25/2023 Activeacetaminophen 325 mg / oxyCODONE hydrochloride 5 mg oral tablet (1 source)Opioid AgonistStart: 25-69-5160oczNLIVYP-acetaminophen (PERCOCET) 5- 325 MG per tablet 1 tabletAcidophilus Probiotic Blend (3 sources)Start: 64-93-3267ndlu 1 capsule by mouth twice dailyAcidophilus Probiotic Blend 1 cap(s), Oral, BID, Refill(s) 0 Start Date: 06/26/23 Status: Ordered Repeat number: 1Start: 28-97-1093cjzf 1 capsule by mouth twice daily Acidophilus Probiotic Blend 1 cap(s), Oral, BID, Refill(s) 0 Start Date: 06/26/23 Status: OrderedamLODIPine 5 mg oral tablet (10 sources)Dihydropyridine Calcium Channel BlockerStart: 12-13-2022 End: 35-21-7214vtZNFMNuie (Norvasc) 5 MG tablet Take by mouth 12/13/2022 11/30/2024 ActiveAscorbic Acid / Beta Carotene / cuprous oxide / Vitamin E / Zinc Oxide (1 source)Vitamin Ctake 1 capsule by mouth twice dailyPreserVision AREDS-2 250 mg-90 mg-40 mg-1 mg capsule take 1 capsule by oral route 2 times every day1 capsule - Activecalcium carbonate 1500 mg oral tablet (18 sources)Start: 82-20-9566ncln 1 tablet by mouth in the morningcalcium carbonate 1500 (600 Ca) MG tablet Take 1,200 mg by mouth in the morning. 05/01/2024 ActiveStart: 00-97-2682vcwq 2 tablets by mouth once dailycalcium carbonate (OS-MARYCARMEN) 600 mg calcium (1,500 mg) tablet Take 2 (two) tablets (1,200 mg total) by mouth daily . 05/01/2024 ActiveStart: 05-01-2024 End: 97-22-4882xclssmd (as carbonate) 600 mg oral tablet 1,200 mg = 2 tab(s), Oral, Daily, X 90 day(s), # 180 tab(s), Refills(s) 3, Pharmacy: [id number], 158, cm, 04/24/24 14:32:00 EST, Height/Length Dosing, 88.3, kg, 04/24/24 14:32:00 EST, Weight Dosing Start Date: 05/01/24 Stop Date: 04/26/25 Statu s: Ordered Quantity: 180.0 Unit: tab(s) Repeat number: 4take 1 tablet by mouth twice dailyCalcium-600 600 mg (as calcium carbonate 1,500 mg) tablet take 1 tablet by oral route 2 times everyday 1 tablet - Activecarboxymethylcellulose 0.01 mg/mg ophthalmic gel (15 sources)Start: 20-16-9106diszrweoeoeowycvlbhcvq (Refresh Liquigel) 1 % ophthalmic solution dropperette 07/28/2024 Activecarboxymethylcellulose sodium 5 mg/ml / glycerin 9 mg/ml ophthalmic solution (1 source)Non-Standardized Chemical AllergenRefresh Relieva PF 0.5 %-0.9 % eye drops instill by ophthalmic route bid/tid OU - Activecephalexin 500 mg oral capsule (3 sources)Cephalosporin AntibacterialStart: 04-18-2022 End: 89-33-0880gcwu 1 capsule by mouth four times dailycephALEXin (KEFLEX) 500 MG capsule Take 1 (one) capsule (500 mg total) by mouth 4 (four) times a day for 10 days . 40 capsule 1 04/18/2022 04/28/2022 Bgabke49 ml clindamycin 18 mg/ml injection (2 sources)Lincosamide AntibacterialStart: 91-19-0233gpnysmooeiu (CLEOCIN) 900 mg in dextrose 5 % 50 mL IVPBStart: 07-31-2023 End: 83-56-8894dkosdwpscix (CLEOCIN) 600 mg in dextrose 5 % 50 mL IVPB doxycycline hyclate 100 mg oral tablet (1 source)Tetracycline-class DrugStart: 08-03-2023 End: 64-16-4733wsbs 1 tablet by mouth twice dailydoxycycline hyclate (VIBRA- TABS) 100 MG tablet Take 1 tablet by mouth 2 times daily for 7 days 14 tablet 0 08/03/2023 08/10/2023 Active0.4 ml enoxaparin sodium 100 mg/ml prefilled syringe (2 sources)Low Molecular Weight HeparinStart: 73-53-4054cdovykcayy (LOVENOX) injection 40 mgStart: 29-66-7724fbliff 40 mg by subcutaneous injection once daily40 mg, SubCUTAneous, DAILY, First dose on Sun07/18/23 at 0900, Until Discontinued Indication of Use:Prophylaxis-DVT/PE Administer by deep subCUTAneous injection with pt lying down. Alternate injection sites on abdominal wall. Do not rub site after injection. Check with provider prior to any invasive procedure. Post-opergocalciferol 1.25 mg oral capsule (16 sources)Provitamin D2 CompoundStart: 04-91-1865iofq 1 capsule by mouth every weekergocalciferol (ERGOCALCIFEROL) 1,250 mcg (50,000 unit) capsule Take 1 (one) capsule (50,000 Units total) by mouth once a week . 05/01/2024 Activetake 1 capsule by mouth every weekVitamin D2 1,250 mcg (50,000 unit) capsule take 1 capsule by oral route every week 31270 UNITS - Activelactobacillus rhamnosus gg [id number] unt oral capsule (18 sources)Start: 26-81-5700drvx 1 capsule by mouth in the morninglactobacillus (Culturelle) capsule Take 1 capsule by mouth in the morning and 1 capsule in the evening. Take with meals. 06/22/2023 ActiveStart: 06-14-3952sdkk 1 capsule by mouth twice daily at mealtimelactobacillus (CULTURELLE) capsule Take 1 capsule by mouth 2 times daily (with meals) 60 capsule 0 06/22/2023 ActiveLutein / zeaxanthin (1 source)take 1 capsule by mouth once daily50 ml magnesium sulfate 40 mg/ml injection (1 source)Start: ,000 mg, IntraVENous, at 25 mL/hr, Administer over 2 Hours, PRN, Other, Magnesium Replacement, Starting on Sun07/31/23 at [address] [facility] Replacement Action 1.4-1.6 mg/dL 2,000 mg Total Dose Given as 1,000 mg IVPB x 2 doses or 2,000 mg IVPB x 1 dose &am p;nbsp; 1.0-1.3 mg/dL 4,000 mg Total Dose Given as 1,000 mg IVPB x 4 doses or 2,000 mg IVPB x 2 doses Less than1.0 mg/dL CALL PHYSICIAN and give &nb sp; 4,000 mg Total Dose &nb sp; Given as 1,000 mg IVPB x 4 doses or 2,000 mg IVPB x 2 doses Infuse at 1,000 mg/hr Repeat Mag level 1 hour after final administration Protoc ol not for use in Patients with CrCl less than 30ml/minmilk thistle extract 500 mg oral capsule (1 source)take 1 capsule by mouth once dailymilk thistle 500 mg capsule take 1 cap po qd - Activeomega-3 acid ethyl esters (group home) 1000 mg oral capsule (16 sources)take 1 capsule by mouth in the morningomega-3 acid ethyl esters (Lovaza) 1 g capsule Take 2 g by mouth in the morning and 2 g in the evening. Active2 ml ondansetron 2 mg/ml injection (1 source)Serotonin-3 Receptor AntagonistStart: 28-97-5546jxjmraffyfu (ZOFRAN) injection 4 mgondansetron (ZOFRAN-ODT) disintegrating tablet 4 mg (1 source)Start: 60-07-3142pxmiffldbql (ZOFRAN-ODT) disintegrating tablet 4 mg oxyCODONE (1 source)Opioid AgonistStart: 75-08-9341dzdSKPGPY (ROXICODONE) immediate release tablet 5 mgpiperacillin-tazobactam (ZOSYN) 3,375 mg in sodium chloride 0.9 % 50 mL IVPB (Mhnv9Pmi) (1 source)Start: 52-41-1709zdpxalavmzvp-tazobactam (ZOSYN) 3,375 mg in sodium chloride 0.9 % 50 mL IVPB (Yrmz9Dul)polyvinyl alcohol 0.014 ml/ml / povidone 6 mg/ml ophthalmic solution (1 source)Refresh Classic (PF) 1.4 %-0.6 % eye drops in a dropperette instill 1 drop by topical route bid/tidOU - ActivePotassium Chloride (1 source)Start: 71-28-2464nzkhboawp chloride (KLOR-CON M) extended release tablet 40 mEqPROBIOTIC (unknown strength) (1 source)take 1 capsule by mouth twice dailypyridoxine hydrochloride 25 mg oral tablet (15 sources)pyridoxine (Vitamin B-6) 25 MG tablet take 1 tab po qd/bid Active terbinafine hydrochloride 10 mg/ml topical cream (1 source)Allylamine AntifungalStart: 95-22-0614Xyueftb AT 1% Cream 1 ashwini, Topical, BID, 12 gram, Refill(s) 0, [facility] #[id number], 155, cm, 03/30/23 10:41:00 EST, Height/Length Dosing, 87.6, kg, 03/30/23 10:41:00 EST, Weight Dosing Start Date: 03/30/23 Status: Orderedvitamin b12 1 mg/ml oral solution (20 sources)Vitamin B12 End: 22-03-0810skkt 1 tablet by mouth in the morningCyanocobalamin 1000 MCG/ML liquid Take 1 tablet by mouth in the morning. Activetake 1 tablet by mouth once dailyvitamin B-12 (CYANOCOBALAMIN) 1000 MCG tablet Take 1 tablet by mouth daily 0 Activevitamin e 22.6 mg/ml oral solution (4 sources)take 2 capsules by mouth once dailyvitamin E, dl, acetate, 22.5 mg (50 unit)/mL Drop Take 2 capsules by mouth daily . Active Completed/Discontinued Medications MedicationDrug Class(es)DatesSig (Normalized)Sig (Original)calcium chloride 0.0014 meq/ml / potassium chloride 0.004 meq/ml / sodium chloride 0.103 meq/ml / sodium lactate 0.028 meq/ml injectable solution (1 source)Start: 07-17-2023 End: 91-87-9526pxfzlckq ringers IV soln infusionceFAZolin 2000 mg injection (1 source)Cephalosporin AntibacterialStart: 07-17-2023 End: 88-57-5741ooSXWftnz (ANCEF) 2000 mg in 0.9% sodium chloride 100 mL WTLN405 ml glucose 50 mg/ml / potassium chloride 0.02 meq/ml / sodium chloride 4.5 mg/ml injection (1 source)Start: 07-17-2023 End: 55-37-3353WeaamWUBavu, at 100 mL/hr, CONTINUOUS, Starting on Sun07/17/23 at 1315, Post-opiopamidol (ISOVUE-370) 76 % injection 75 mL (1 source)Start: 07-31-2023 End: 89-59-7251znonpgmea (ISOVUE-370) 76 % injection 75 mLpolyethylene glycol 3350 36648 mg powder for oral solution (1 source)Osmotic LaxativeStart: 01-64-799701 g, Oral, DAILY PRN, Starting on Sun07/31/23 at 1826, Until Discontinued, Constipation First linetherapy for constipation5 ml sodium chloride 9 mg/ml injection (4 sources)Start: 35-79-1103slve 1 dose intravenously twice daily5-40 mL, IntraVENous, EVERY 12 HOURS SCHEDULED (2 [...] mL Midline or Central Line = 20 mL/lumenStart: 07-31-2023 End: 32-96-1315MhhmhNYMwbd, at 75 mL/hr, CONTINUOUS, Starting on Sun07/31/23 at 1845Start: 49-86-6900JwzpzLZWxwx, at 5-250 mL/hr, PRN, if patient receiving piggyback infusions and maintenance fluids are not ordered OR KVO fluids to protect IV site / prevent frequent line interruptions/ long duration, Starting on Sun07/31/23 at 1826 For piggyback infusion, administer at same rate as piggyback for atotal of 25 mL. Enter 25 mL into dose field and piggyback rate into rate field of order. If piggyback is infusing at a rate less than 100 mL/hr, enter 25 mL into dose field and 100 mL/hr into rate field of order. For KVO fluids, enter rate of 20 mL/hr or less into rate field of order.Start: 19-47-8741anla 10 mL intravenously once as zqutmu96 mL, IntraVENous, PRN, Starting on Sun07/31/23 at 1826, Until Discontinued, Line Care, After every IV line use1 ml triamcinolone acetonide 40 mg/ml injection (1 source)CorticosteroidStart: 06-13-2024 End: 97-21-453906 mg, Intra-articular, Once as needed Procedure, Starting on Sun06/13/24 at 1052, For 1 doseVitamin D 50,000 intl units (1.25 mg) oral capsule (2 sources)Start: 73-11-7104fisi 1 capsule by mouth every weekVitamin D 50,000 intl units (1.25 mg) oral capsule 50,000 International_Unit = 1 cap(s), Oral, qWeek, # 12 cap(s), Refills(s) 4, Pharmacy: [facility] #[id number], 158, cm, 04/24/24 14:32:00 EST,Height/Length Dosing, 88.3, kg, 04/24/24 14:32:00 EST, Weight Dosing Start Date: 05/01/24 Status: Ordered Quantity: 12.0 Unit: cap(s) Repeat number: 5 Problems Active Problems Problem ClassificationProblemDateDocumented DateEpisodic/ChronicAbdominal hernia (13 sources)Irreducible hernia of anterior abdominal wall; Translations: [Other and unspecified ventral hernia with obstruction, without gangrene]Onset: 07-17-2023 Resolved: 483402-19-5479SlpmfeffKilcnaqem pain (6 sources)Epigastric pain; Translations: [Epigastric pain]Onset: 06-20-2023 Resolved: 061910-44-6735GeemnyjmPemdpdal (2 sources)Presence of intraocular lens; Translations: [Pseudophakia]Onset: 11-13-8268FeiqiqpZtzjdxdojju and hemorrhagic disorders (2 sources)Spontaneous ecchymoses; Translations: [Spontaneous ecchymoses]Onset: 71-23-6424RehmmabtJciosveztoaxa of surgical procedures or medical care (12 sources)Wound dehiscence; Translations: [Disruption of wound, unspecified, initial encounter]Onset: 07-16-2023 Resolved: 964900-09-7723WbdckdlkPrtnakgvu of lipid metabolism (18 sources)Hypercholesterolemia; Translations: [Mixed hyperlipidemia]Onset: 010280-31-6430SbswmhfJmyesxkrt hypertension (10 sources)Hypertensive disorder; Translations: [Essential (primary) hypertension]Onset: 434651-17-3887IhitgsqJzgfdvvlpm disorders (15 sources)Postmenopausal bleeding; Translations: [Postmenopausal bleeding] Onset: 466999-10-1486VikngkvLyzhlggrzlx deficiencies (4 sources)Undernutrition; Translations: [Mild protein-calorie malnutrition] Onset: 126895-79-5029AemkmrjDvejfihhpytssm (3 sources)Osteoarthritis of left knee joint; Translations: [Unilateral primary osteoarthritis, left knee]Onset: 255830-22-9061OrgnxswMneqr aftercare (2 sources)Encounter for change or removal of nonsurgical wound dressing; Translations: [Encounter for change or removal of nonsurgical wound dressing] Onset: 54-47-7573HyaihyrdByafy aftercare (2 sources)Encounter for follow-up examination after completed treatment for conditions other than malignant neoplasm; Translations: [Encounter for follow-up examination after completed treatment for conditionsother than malignant neoplasm]Onset: 70-40-8981TebvwdjzTdsix and unspecified benign neoplasm (3 sources)Lipoma of whgl48-87-2309QlilrdzvDubup and unspecified benign neoplasm (2 sources)Benign neoplasm of left choroid; 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] Onset: 14-86-1130YkholutmQsssj and unspecified benign neoplasm (2 sources)Lipoma of skin and subcutaneous tissue of limb; Translations: [Benign lipomatous neoplasm of skin and subcutaneous tissue of unspecified limb]Onset: 84-53-8930DrtkiuadJjehw and unspecified benign neoplasm (2 sources)Lipoma of upper okd85-14-0061CwbzxijbKnxeq and unspecified benign neoplasm (2 sources)Lipoma of upper wuaf37-26-2605BlohwrsqHvxte connective tissue disease (3 sources)History of right total knee replacement; Translations: [Presence of right artificial knee joint]ChronicOther connective tissue disease (2 sources)Presence of right artificial knee joint; Translations: [Presence of right artificial knee joint]Onset: 48-20-5228BwsgxivHmaub connective tissue disease (3 sources)Ganglion cyst of right dorsal multe47-28-9361KmbhfsvaIeeus gastrointestinal disorders (1 source)Diarrhea, unspecified; Translations: [Diarrhea, unspecified]Onset: 97-76-6006OkbwcshoHqqgt injuries and conditions due to external causes (1 source)Spider bite etbwg76-47-3277ZiomaerdYiqrs nervous system disorders (1 source)Postoperative pain ; Translations: [Other acute postprocedural pain] 97-53-8159FbrhvaavSikjr nervous system disorders (1 source)Other acute postprocedural pain; Translations: [Other acute postprocedural pain]Onset: 49-94-2290LncrsntqNuzoi non-traumatic joint disorders (15 sources)Pain in left shoulder; Translations: [Pain in joint, shoulder region]Onset: 523595-81-5583YlcemztvOfdbr nutritional; endocrine; and metabolic disorders (19 sources)Body mass index 30+ - obesity; Translations: [Body mass index (BMI) 37.0-37.9, adult]Onset: 251563-26-8724BionvzrXwsrr nutritional; endocrine; and metabolic disorders (2 sources)Obesity caused by energy fpptgrguv41-35-7403VwwnfthIszep nutritional; endocrine; and metabolic disorders (1 source)Obese class H36-41-2969VejrxtxZgkfw skin disorders (3 sources)Changes in skin ineerjl08-74-7225CwlwviohSbhwg skin disorders (2 sources)Excessive evbelpmj55-59-6333VclfelbgHpijc skin disorders (2 sources)Loss of mmbv19-35-8853VdlhtiivEwbsk skin disorders (2 sources)Mass of upper iuox61-06-8515JvcmjsdhWgwuv skin disorders (2 sources)Localized swelling, mass and lump, trunk; Translations: [Localized swelling, mass and lump, trunk]Onset: 99-19-3116AymmmporKfcyqnfn codes; unclassified (2 sources)Other specified health status; Translations: [Other specified conditions influencing health status]Onset: 031015-08-1993MpwypkwoWzcuqcad codes; unclassified (15 sources)Memory impairment; Translations: [Other amnesia]Onset: 10-22-2024 86-91-7839UjkpzfjoGvaybaz detachments; defects; vascular occlusion; and retinopathy (2 sources)Nonexudative age-related macular degeneration, bilateral, intermediate dry stage; Translations: [Nexdtve age-related mclr degn, bilateral, intermed dry stage]Onset: 44-35-3048XevilpsKzcxwtdwg and history of mental health and substance abuse codes (15 sources)H/O: psychiatric disorder; Translations: [Personal history of other mental and behavioral disorders]Onset: 888227-74-8292CalfxppvOlim and subcutaneous tissue infections (2 sources)Abscess of umbilicus; Translations: [Cutaneous abscess of umbilicus] Onset: 722037-81-2662UvmexxjnAeckkningkz; intervertebral disc disorders; other back problems (3 sources)Spinal stenosis of lumbar region; Translations: [Spinal stenosis, lumbar region without neurogenic claudication]Onset: EpisodicThyroid disorders (13 sources)Hyperthyroidism; Translations: [Thyroid nodule]Onset: 11-13-2024 71-62-4655CzzeiwsDswtfpw disorders (4 sources)Mass of thyroid gland; Translations: [Disorder of thyroid, unspecified]92-12-9079PiolfgmdXucepvgrfhbb (2 sources)Dressing Change; Translations: [Dressing Change]Onset: 08-04-2023 Unclassified (1 source)Low back pain, unspecified; Translations: [Low back pain, unspecified] Onset: 41-03-0073Teeatnhngjxt (1 source)Dly-igxgol78-61qwizeu42-92-6032Smvxy infection (3 sources)Hand fxyf17-88-4434Kkpfxdvz Past or Other Problems Problem ClassificationProblemDateDocumented DateEpisodic/ChronicBiliary tract disease (8 sources)Other cholelithiasis without obstruction; Translations: [Calculus of gallbladder with acute cholecystitis without obstruction]Onset: 06-20-2023 Resolved: 309574-15-3907WlosvkboTjgxqdwaicgl (1 source)Low back pain, unspecified; Translations: [Low back pain, unspecified] Onset: 12-64-4097Dndwcsdtbprf (1 source)DRY AMD (chief complaint)Onset: 07-28-2024 Results Test NameValueInterpretationReference RangeFacilityQuincy Medical Center Medicine Office/Clinic Noteon 21-03-9053Sqxevo Medicine Office/Clinic NoteFanashoba valley medical center Medicine Office/Clinic Note Chief Complaint The patient presents with a chief complaint of a sore throat. HPI Staff Pt presents today for sick visit. Sore Throat onset- sunday this week - was running temp over 100 sinus congestion- yes swollen nodes- yes red/ white spots- no fever/chills- not since sunday or sunday body aches- shoulders nausea/ vomiting- only when she can't stop coughing cough- yes ear pain - no allergies- no medication taken- [place] flu, tea, and soup History of Present Illness 84-year-old female presenting with symptoms that began on Sunday. Her primary complaint is a sore throat, and she also reports having a fever for one day, a headache, and recent onset of ear discomfort. For self-treatment, the patient has taken [place], eucalyptus, and johnson seal, and has used lavender oil for her headache. She denies taking Tylenol, using cough drops, or gargling with salt water. Review of Systems PHQ Score Initial Depression Screen Score: 0 SCORE - Constitutional: Reports a fever for one day but denies fever on the day of the visit. - HEENT: Reports a sore throat as the main concern, a headache, and that her ears are just startingto bother her. Physical Exam Vitals & Measurements T: 36.8 ???C(Temporal Artery) HR: 61(Peripheral) RR: 18 BP: 102/80 SpO2: 97% HT: 62 in HT: 158 cm WT: 185.188 lb WT: 84.0 kg BMI: 33.65 General: alert, no acute distress ENMT: TM's clear, oral mucosa moist, yes mild pharyngeal erythema or no exudate Cardiovascular: regular rate and rhythm, normal peripheral perfusion Respiratory: Lungs CTA, respirations non labored Extremities: no deformity, no trauma Neurological: oriented x 4, LOC appropriate for age speech normal Assessment/Plan 1. Pharyngitis (J02.9: Acute pharyngitis, unspecified) - Nasal swabs for COVID-19 and influenza, as well as a throat swab, were performed to determine theetiology of symptoms. - Awaiting test results before determining further management. - Negative POCT test - Encouraged conservative treatment- acetaminophen or ibuprofen for fever or discomfort, gargle with warm saline for sore throat - F/U if no improvement in 5 days. Ordered: Influenza Type A&B POC 00759 Rapid COVID POC 53500 Rapid Strep POC 54527 2. BMI 33.0-33.9,adult (Z68.33: Body mass index [BMI] 33.0-33.9, adult) BMI 33.65 3. Obesity (BMI 30.0-34.9) (E66.811: Obesity, class 1) The standard range for ages 18 and older is >=18.5 and < 25 kg/m2. Your BMI today was above this range, this falls in the overweight to obese category and there are medical benefits to weight loss. We can offer counselling, referral, and/or medical support in addressing this problem. Your BMIand weight management will be followed at subsequent visits. Ordered: 1126F Pain severity quantified; no pain present Body Mass Index (BMI) documented 3008F Current tobacco non-user 1036F Functional status assessed 1170F Medication list documented in medical record 1159F Review of all meds by a prescribing practitioner or clinical pharmacist documented in EHR 1160F Follow-up No qualifying data available Patient Education Pharyngitis, Zmpi-pk-Tgso Problem List/Past Medical History Ongoing BMI 33.0-33.9,adult [...] Cholecystectomy (2023), Amputation of thumb, Arthroplasty of rightknee, Cataract, Closed fracture of ankle, Excision of lesion of skin, Lysis of adhesions, Repair ofincisional hernia, Stomach. Medications Acidophilus Probiotic Blend, 1 cap(s), Oral, BID calcium (as carbonate) 600 mg oral tablet, 1200 mg= 2 tab(s), Oral, Daily, 3 refills Vitamin D 50,000 intl units (1.25 mg) oral capsule, 30331 International_Unit= 1 cap(s), Oral, qWeek, 4 refills Allergies No Known Allergies Social History Alcohol - Denies Alcohol Use, 04/04/2023 Past. Beer, Liquor. Daily., 10/14/2024 Substance Abuse Never, 04/10/2024 Tobacco - Denies Tobacco Use, 04/04/2023 Never (less than 100 in lifetime) Tobacco Use:. Never Smokeless Tobacco Use:. Household tobacco concerns: No. Yes, 01/09/2025 Family History CABG - Coronary artery bypass graft: Negative: Mother, Father, Sister and Brother. Diabetes mellitus type 2: Sister. Open heart surgery: Mother. Immunizations Vaccine Date Status Comments influenza virus vaccine, inactivated - Not Given Parent Or Guardian Refuses diphtheria/pertussis, acel/tetanus adult 08/07/2013 Recorded tetanus-diphtheria toxoids 03/19 (more content not included)...[facility] CenterComment on above:Result Comment: Electronically Signed By: KIA SAMUEL CNP\.sonido\Date and Time Signed: 01/09/25 11:17 BFZ88uu [id number] by: GRETCHEN VALLEJO on: 01/08/2025 12:21 PM Modules accepted: OrdersNormalUniversity of Houston Methodist The Woodlands HospitalConsulton [id number] Micheal Brice 1940 F Date Provider Department Center 01/06/2025 Janice-THOMAS BERMUDEZ [facility] SURG [address] Fl Family History Problem Relation Age of Onset Coronary artery disease Mother Other Mother Family Status - Relation Status Age at Mother Level of Service:23364 MD OFFICE/OUTPATIENT NEW MODERATE MDM 45 MINUTES Reason for Visit and Comments: Consult [484] - Incisional Hernia - called for imaging CT abd/pel [place] on 11/11/2024. (Referral scanned into chart)[facility] HospitalAmbulatory Visit Summaryon 13-27-2813Bncrffwcxx Visit Summary Ambulatory Visit Summary MICHEAL BRICE :1940 Visit Date:12/10/2024 Ambulatory Visit Instructions Your Diagnosis Edema of hand Wrist joint pain BMI 33.0-33.9,adult Obesity (BMI 30.0-34.9) Nonsmoker Tests Performed XR Hand 3+ Views Right -- Results Pending -- XR Wrist 3+ Views Right -- Results Pending -- Please visit your patient portal for your results or contact your primary care physician. Your Care Team Attending Physician - KIA SAMUEL CNP Primary Care Physician - Camila Max This Is Your Medications List calcium carbonate (calcium (as carbonate) 600 mg oral tablet) ergocalciferol (Vitamin D 50,000 intl units (1.25 mg) oral capsule) lactobacillus acidophilus (Acidophilus Probiotic Blend) Procedures Performed Excision of lipoma (11/19/2024), Cholecystectomy (2023), Amputation of thumb, Arthroplasty of rightknee, Cataract, Closed fracture of ankle, Excision of lesion of skin, Lysis of adhesions, Repair ofincisional hernia, Stomach. Discharge Vitals Temperature (Oral) 36.8 ???C Heart Rate (Peripheral) 64 Respiratory Rate 18 Blood Pressure 142/82 Height 158 cm Height 62 in Weight 82.6 kg Weight 182.102 lb BMI 33.09 What to do next Scheduled Follow-Up Appointments Sunday2025 9:30 AM EST With: Where: [address] [address]- Sunday2025 10:20 AM EST With: Camila Max Where: [address] [address]- Medications What How Much When [...] signed up for this yet, please contact [employer] at [phone] to get signed up today. Language Information Language assistance services are available as needed. [facility] CenterFanash[facility] Medicine Office/Clinic Noteon [phone] Medicine Office/Clinic NoteFanashoba valley medical center Medicine Office/Clinic Note Chief Complaint Rt hand pain & swelling The patient complains of swelling and pain in the wrist. HPI Staff Pt presents today due to swelling & pain in Rt hand. Started 2 days ago. Occasional numbness to fingers. Pain is with and without movement. History of Present Illness 84-year-old female patient of DEDE Wren presenting with swelling and pain in the wrist. The patient reports waking up with swelling in the hand without any known trauma or injury. She denies any recent impact or injury to the wrist, although she has experienced similar symptoms in the past. The pain is localized to the wrist and does not radiate. The patient has not taken any medication for the pain and has only applied Afrizon, which provided minimal relief. She has not tried ice or heat and has not taken any OTC medication. Review of Systems PHQ Score Initial Depression Screen Score: 0 SCORE - Musculoskeletal: Reports swelling and pain in the wrist, denies recent trauma - General: Denies taking any medication for pain Physical Exam Vitals & Measurements T: 36.8 ???C(Oral) HR: 64(Peripheral) RR: 18 BP: 142/82 SpO2: 97% HT: 62 in HT: 158 cm WT: 182.102 lb WT: 82.6 kg BMI: 33.09 General: alert, no acute distress Skin: warm, dry Cardiovascular: regular rate and rhythm, normal peripheral perfusion Respiratory: Lungs CTA, respirations non labored Extremities: no deformity, no trauma Musculoskeletal: Full range of motion in fingers, pain localized to right wrist near the thumb joint Assessment/Plan 1. Edema of hand (R60.0: Localized edema) - X-ray ordered to evaluate for arthritis and other potential causes. - Consideration of arthritis as a differential diagnosis. - Patient advised to use vjuo-aix-zbthrky analgesics as needed for pain management. Ordered: XR Hand 3+ Views Right XR Wrist 3+ Views Right 2. Wrist joint pain (M25.539: Pain in unspecified wrist) - X-ray ordered to evaluate for arthritis and other potential causes. - Consideration of arthritis as a differential diagnosis. - Patient advised to use pukn-unu-mtwcvnp analgesics as needed for pain management. Ordered: XR Hand 3+ Views Right XR Wrist 3+ Views Right 3. BMI 33.0-33.9,adult (Z68.33: Body mass index [BMI] 33.0-33.9, adult) BMI 33.09 4. Obesity (BMI 30.0-34.9) (E66.811: Obesity, class 1) The standard range for ages 18 and older is >=18.5 and < 25 kg/m2. Your BMI today was above this range, this falls in the overweight to obese category and there are medical benefits to weight loss. We can offer counselling, referral, and/or medical support in addressing this problem. Your BMIand weight management will be followed at subsequent visits. 5. Nonsmoker (Z78.9: Other specified health status) - Encourage to continue as a non-smoker Follow-up No qualifying data available Patient Education Joint Pain, Wgja-mh-Msoe Problem List/Past Medical History Ongoing BMI 33.0-33.9,adult [...] Cholecystectomy (2023), Amputation of thumb, Arthroplasty of rightknee, Cataract, Closed fracture of ankle, Excision of lesion of skin, Lysis of adhesions, Repair ofincisional hernia, Stomach. Medications Acidophilus Probiotic Blend, 1 cap(s), Oral, BID calcium (as carbonate) 600 mg oral tablet, 1200 mg= 2 tab(s), Oral, Daily, 3 refills Vitamin D 50,000 intl units (1.25 mg) oral capsule, 55995 International_Unit= 1 cap(s), Oral, qWeek, 4 refills Allergies No Known Allergies Social History Alcohol - Denies Alcohol Use, 04/04/2023 Past. Beer, Liquor. Daily., 10/14/2024 Substance Abuse Never, 04/10/2024 Tobacco - Denies Tobacco Use, 04/04/2023 Never (less than 100 in lifetime) Tobacco Use:. Never Smokeless Tobacco Use:. Household tobacco concerns: No. Yes, 12/10/2024 Family History CABG - Coronary artery bypass graft: Negative: Mother, Father, Sister and Brother. Diabetes mellitus type 2: Sister. Open heart surgery: Mother. Immunizations Vaccine Date Status Comments influenza virus vaccine, inactivated - Not Given Parent Or Guardian Refuses diphtheria/pertussis, acel/tetanus adult 08/07/2013 Recorded tetanus-diphtheria toxoids 03/19/2004 [facility] Comment on above:Result Comment: Electronically Signed By: KIA SAMUEL CNP\.sonido\Date and Time Signed: 12/10/24 15:12 EDTAmbulatory Visit Summaryon 43-24-4613Idfwgnmodp Visit SummaryAmbulatory Visit Summary MICHEAL BRICE :1940 Visit Date:12/03/2024 [...] Cholecystectomy (2023), Amputation of thumb, Arthroplasty of rightknee, Cataract, Closed fracture of ankle, Excision of lesion of skin, Lysis of adhesions, Repair ofincisional hernia, Stomach. What to do next Scheduled Follow-Up Appointments Sunday2025 9:30 AM EST With: Where: [address] [address]- Sunday2025 10:20 AM EST With: Camila Max Where: [address] [address]- You Need to Schedule the Following Appointments Follow Up with OCTAVIA JULIEN, ARPAN Huizar When: Only if needed Where: [place] [address]- Someone Will Contact You Regarding These Appointments [facility] External Ambulatory Referral, Service not offered at [facility], Surgery, Dr Bermudez, [facility], 12/03/24 15:09:00 EDT, Recurrent ventral incisional hernia [...] 1 Capsules By Mouth 2 times a dayContact prescribing physician if questions or concerns Allergies [...] signed up for this yet, please contact [employer] at [phone] to get signed up today. Language Information Language assistance services are available as needed. [facility] CenterGeneral Surgery Office/Clinic Noteon 26-70-1044Lldoghm Surgery Office/Clinic NoteGeneral Surgery Office/Clinic Note Chief Complaint post operative [...] possible recurrent hernia; patient had cholecystectomy in [place] in 2023; developed umbilical port site hernia that required emergency surgery in [place], with partial resection of colon; complicated by [...] swallowing difficulties, no hearing loss, no ear infection(s),no nose bleeds. Cardiovascular: normal blood pressure, no [...] neoplasm of skin and subcutaneous tissue of unspecifiedlimb) healing well; call with problems/questions. Ordered: Postoperative follow-up visit, related to the original procedure 46739 2. Recurrent ventral incisional hernia (K43.2: Incisional hernia without obstruction or gangrene) recommend evaluation/repair at [facility]; referral placed. Ordered: [facility] External Ambulatory Referral Postoperative follow-up visit, related to the original procedure 48945 Follow-up With When Contact Information OCTAVIA JULIEN, ARPAN Huizar Only if needed [address] [place] [address]- Additional Instructions: Problem List/Past Medical [...] Cholecystectomy (2023), Amputation of thumb, Arthroplasty of rightknee, Cataract, Closed fracture of ankle, Excision of lesion of skin, Lysis of adhesions, Repair ofincisional hernia, Stomach. Medications Acidophilus Probiotic Blend, 1 cap(s), Oral, BID calcium (as carbonate) 600 mg oral tablet, 1200 mg= 2 tab(s), Oral, Daily, 3 refills Vitamin D 50,000 intl units (1.25 mg) oral capsule, 64546 International_Unit= 1 cap(s), Oral, qWeek, 4 refills [...] acel/tetanus adult 08/07/2013 Recorded tetanus-diphtheria toxoids 03/19/2004 [facility]NormalMem[facility] Comment on above:Result Comment: Electronically Signed By: OCTAVIA JULIEN, Alfonso Montgomery\Date and Time Signed: 12/03/24 15:11 EDTCoding Summaryon 04-12-1035Tjvkal SummaryHTMLBase 64 SkcnoywyLDi2pZa+PGhlYWQ+[id number]voLjIZ5boDDq ZXJu [file] IGN (more content not included)...[facility] InstituteLab - AP Resultson 15-12-3084Nim - AP [id number]#1.00OTGTIFF [facility] Urineon 31-00-7130Zuyypffn identified Cx Nom (U) Microbiology PROCEDURE: Urine Culture [R1] SOURCE: U CleanCatch BODY SITE: COLLECTED DATE/TIME: 11/21/2024 09:12 EDT RECEIVED DATE/TIME: 11/21/2024 17:59 EDT START DATE/TIME: 11/21/2024 17:59 EDT FREE TEXT SOURCE: JIMMIE AGUAYO, KIA SMAUEL CNP, KIA De La Vega FINAL REPORTS Final Report [] Verified Date/Time: 11/23/2024 07:27 EDT <10,000 cfu/ml Mixed skin contaminants Performing Locations R1: This test was performed at: [facility], [address] [place] [address], [address]- , , LnmfdrNyvnhnWexner Medical CenterComment on above:Performed By: #### [id number] #### [facility] [address] [place] [address]Druvcchzto Visit Summaryon 04-94-9387Kzpvuhbvnd Visit Summary Ambulatory Visit Summary MICHEAL BRICE [...] Cholecystectomy (2023), Amputation of thumb, Arthroplasty of rightknee, Cataract, Closed fracture of ankle, Excision of lesion of skin, Lysis of adhesions, Repair ofincisional hernia, Stomach. Discharge Vitals Temperature (Temporal Artery) 36.4 ???C Heart Rate (Peripheral) 62 Respiratory Rate 18 Blood Pressure 120/82 Height 158.0 cm Height 62 in Weight 82.2 kg Weight 181.22 lb BMI 32.93 What to do next Scheduled Follow-Up Appointments Sunday 2:40 PM EDT With: Alfonso DUDLEY MD Where: [facility] [address], [address], [place] [address]- Sunday2025 9:30 AM EST With: Where: [facility] [address] [address]- Sunday2025 10:20 AM EST With: Camila Max Where: [place] [id number]- Medications What How Much When Instructions Unchanged [...] signed up for this yet, please contact [employer] at [phone] to get signed up today. Language Information Language assistance services are available as needed. [facility] Medicine Office/Clinic Noteon [phone] Medicine Office/Clinic NoteFanashoba valley medical center Medicine Office/Clinic Note Chief Complaint The patient [...] dark urine, and increased frequency due to highwater intake. There is no associated burning, itching, [...] dark urine, increased frequency due to high waterintake. Denies burning, itching, abdominal pain, or back [...] Urnls Dip Stick Auto w/o Microscopy POC 22111 2. Ganglion (M67.40: Ganglion, unspecified site) - [...] Cholecystectomy (2023), Amputation of thumb, Arthroplasty of rightknee, Cataract, Closed fracture of ankle, Excision of lesion of skin, Lysis of adhesions, Repair ofincisional hernia, Stomach. Medications Acidophilus Probiotic Blend, 1 cap(s), Oral, BID amLODIPine 5 mg Tab, 5 mg= 1 tab(s), Oral, Daily, 3 refills, Not taking calcium (as carbonate) 600 mg oral tablet, 1200 mg= 2 tab(s), Oral, Daily, 3 refills Vitamin D 50,000 intl units (1.25 mg) oral capsule, 35293 International_Unit= 1 cap(s), Oral, qWeek, 4 refills [...] Protein Urine Dipstick: Negative (11/21/24 09:09:00) Specific [place] Urine Dipstick: 1.010 (11/21/24 09:09:00) Urine Appearance Urine Dipstick: Clear (11/21/24 09:09:00) Urine Color Urine Dipstick: Yellow (11/21/24 09:09:00) Urobilinogen Urine Dipstick: Normal 0.2-1 EU/dl (11/21/24 09:09:00) pH Urine Dipstick: 6 (11/21/24 09:09:00)NormalMemorial Health System Selby General HospitalComment on above:Result Comment: Electronically Signed By: KIA SAMUEL CNP\Date and Time Signed: 11/21/24 09:12 EDTPathology Sendout Teston [id number] Send Out.See ReportNoMercy Health Anderson HospitalComment on above: Order Comment: left inf. thyroid fnb 11/13/24@1429 8 slides 1 cytolyte 1 afirmaPerformed By: #### [id number] #### [facility] (DEFAULT) [address] [place] [address]Gjw 11-19-2024L Specimen: [id number] Received: 11/19/24 Status: LESVIA Wynne Num: [id number] Spec Type: Surgical Subm Dr: Alfonso Dudley MD FACS Tissues: A Lipoma (RIGHT UPPER ARM LESION) Procedures: HE, Gross/Micro L3 Age/ Patient Sex Location Account Attending Physician Micheal Brice 84/F LABELL [id number] Alfonso Dudley MD FACS SPEC NUM: [id number] RECD: 11/19/24 STATUS: LESVIA WYNNE NUM: [id number] JACQUE: 11/19/[address] [facility] [address]: Alfonso Dudley MD FACS ENTERED: 11/19/[address]: Chan,Lab SPEC TYPE: Surgical DEPT: LISET ANTONY ENTERED BY: [id number] RECV BY: [id number] ORDERED: HE, Gross/Micro L3 ORDERED: HE, Gross/Micro [...] reveal yellow-castillo, glistening, and uniform cut surfaces. Fluorescent Lamp Replacer sections are submitted in a single cassette. (1, , MA86-145 A) Microscopic Description Microscopic examination is performed. Specimen: [id number] Received: 11/19/24 Status: MARLONMain Wynne Num: [id number] Spec Type: Surgical Subm Dr: Alfonso Dudley MD FACS Tissues: A Lipoma (RIGHT UPPER ARM LESION) Procedures: Santiago STONER/Micro L3 Patient: Micheal Brice [id number] (Continued) Specimen: [id number] Received: 11/19/24 (Continued) Signed (signature on file) Madhav Francisco MD 11/20/24909 Specimen: [id number] Received: 11/19/24 Status: LESVIA Wynne Num: [id number] Spec Type: Surgical Subm Dr: Alfonso Dudley MD FACS Tissues: A Lipoma (RIGHT UPPER ARM LESION) Procedures: Santiago STONER/Rashaun L3 Patient: Micheal Brice [id number] (Continued) Specimen: [id number] Received: 11/19/24 (Continued) CPT Codes 69737 Specimen: [id number] Received: 11/19/24 Status: LESVIA Wynne Num: [id number] Spec Type: Surgical Subm Dr: Alfonso Dudley MD FACS Tissues: A Lipoma (RIGHT UPPER ARM LESION) Procedures: GE[place]IA[place], Gross/Micro L3 Patient: Micheal Brice [id number] (Continued) Signed (signature on file) Madhav Francisco MD 11/20/2410Normal [facility] Physician GroupConsent Formson 49-94-8910Vgltqfm Forms [id number]#1.00OTGTIFFPeoples Hospital 11-13-2024L Specimen: [id number] Received: 11/18/24-1048 Status: LESVIA Wynne Num: [id number] Spec Type: Cytology Subm Dr: CUAUHTEMOC JACOBO MD Tissues: A FNA SLIDES NOPATH (LEFT INFERIOR THYROID) Procedures: Cyto Int and Re, PAPSTN/9 Age/ Patient Sex Location Account Attending Physician Adrianna Bricekamran Gomez 84/F [facility] [id number] CUAUHTEMOC JACOBO MD SPEC NUM: [id number] RECD: 11/18/24 STATUS: LESVIA REZach NUM: [id number] JACQUE: 11/13/24-[address] [place] [address] DR: CUAUHTEMOC JACOBO MD ENTERED: 11/18/[address] [facility] [address]: Ashok,Lab SPEC TYPE: Cytology DEPT: MAG GUY ENTERED BY: [id number] RECV BY: [id number] ORDERED: Cyto Int and Re, PAPSTN/9 ORDERED: Cyto Int and Re, PAPSTN/9 Pathological Diagnosis Left inferior thyroid nodule, fine-needle aspiration (ThinPrep and Smear Slides): - Inadequate for evaluation due to acellular specimen - Scant watery colloid in a background of blood, nondiagnostic ([place] Category: I). Comment: Recommend clinical and radiologic [...] (/in) Microscopic Description Microscopic examination is performed. Specimen: [id number] Received: 11/18/24 Status: LESVIA Wynne Num: [id number] Spec Type: Cytology Subm Dr: CUAUHTEMOC JACOBO MD Tissues: A FNA SLIDES NOPATH (LEFT INFERIOR THYROID) Procedures: Cyto Int and Re, PAPSTN/9 Patient: Micheal Brice [id number] (Continued) Specimen: [id number] Received: 11/18/24 (Continued) Signed (signature on file) Madhav Francisco MD 11/19/24 1241 Specimen: [id number] Received: 11/18/24 Status: LESVIA Wynne Num: [id number] Spec Type: Cytology Subm Dr: CUAUHTEMOC JACOBO MD Tissues: A FNA SLIDES NOPATH (LEFT INFERIOR THYROID) Procedures: Cyto Int and Re, PAPSTN/9 Patient: Micheal Brice [id number] (Continued) Specimen: [id number] Received: 11/18/24 (Continued) CPT Codes 91462, 91829 Specimen: [id number] Received: 11/18/24 Status: LESVIA Wynne Num: [id number] Spec Type: Cytology Subm Dr: CUAUHTEMOC JACOBO MD Tissues: A FNA SLIDES NOPATH (LEFT INFERIOR THYROID) Procedures: Cyto Int and Re, PAPSTN/9 Patient: Micheal Brice [id number] (Continued) Signed (signature on file) Madhav Francisco MD 11/19/24 1241Normal [facility] Physician GroupUS Fine Needle Asp/Biopsy, First Lesionon 01-35-1633UX Fine Needle Asp/Biopsy, First LesionEXAMINATION: US Fine Needle Asp/Biopsy, First Lesion HISTORY: [...] Willy Frost MD 11/13/24 3:14 pm Technologist: ,[facility] Abdomen/Pelvis w/o Contraston 41-92-1352YO Abdomen/Pelvis w/o ContrastExam Date/Time: 11/11/2024 12:41 EDT Reason for Exam: N20.0;Other (please specify) Report IMPRESSION: PERIUMBILICAL HERNIA CONTAINING FAT AND COLON WITH NO CT EVIDENCE OF INCARCERATION OR OBSTRUCTION. SIGMOID DIVERTICULOSIS. CHOLECYSTECTOMY. NO RENAL/URETERAL CALCULI. NO HYDRONEPHROSIS/HYDROURETER. CT OF THE ABDOMEN AND PELVIS WITHOUT [...] Ignacio Haque MD Transcribed by: BRITTANY Technologist: IndiaOhio State University Wexner Medical CenterProvider Orderson 46-38-4178Dyeysejp Orders [id number]#1.00OTGTIFFOhio Valley Hospital Retroperitoneal Completeon 40-97-6218JL Retroperitoneal CompleteExam Date/Time: 10/29/2024 08:16 EDT Reason for Exam: [...] Ignacio Haque MD Transcribed by: BRITTANY Technologist: [facility]aphneMem[facility] General HospitalReminderripley county memorial hospital [id number] From: Camila Max To: [facility] - Clinical; [...] requesting pt call back for below results. completed.[facility] CenterC Urineon [id number] identified Cx Nom (U)Microbiology PROCEDURE: Urine Culture [R1] SOURCE: U Random BODY SITE: COLLECTED DATE/TIME: 10/22/2024 09:17 EDT RECEIVED DATE/TIME: 10/22/2024 17:13 EDT START DATE/TIME: 10/22/2024 17:13 EDT FREE TEXT SOURCE: KIA SAMUEL CNP, CNP, SHELLY A FINAL REPORTS Final Report [] Verified Date/Time: 10/24/2024 08:24 EDT <10,000 cfu/ml Mixed skin contaminants Performing Locations R1: This test was performed at: [facility], [address] [place] [address], [facility] , , TvzjsuKdjwxiWexner Medical CenterComment on above:Performed By: #### [id number] #### [facility] [address] [place], [place] [address]Ambulatory Visit Summaryon 15-27-5536Iyeeuzcytp Visit Summary Ambulatory Visit Summary MICHEAL BRICE [...] Appointments Sunday2025 9:30 AM EST With: Where: [address] [address]- Sunday2025 10:20 AM EST With: Camila Max Where: [address] [address]- Medications What How Much When Instructions Unchanged [...] signed up for this yet, please contact [facility] Information Management at [phone] to get signed up today. Language Information Language assistance services are available as needed. [facility] Medicine Office/Clinic Noteon [phone] Medicine Office/Clinic NoteFanashoba valley medical center Medicine Office/Clinic Note Chief Complaint Blood in [...] Urnls Dip Stick Auto w/o Microscopy POC 55048 US Retroperitoneal Complete 2. Thyroid nodule (E04.1: [...] medical support in addressing this problem. Your BMIand weight management will be followed at subsequent [...] 50,000 intl units (1.25 mg) oral capsule, 22773 International_Unit= 1 cap(s), Oral, qWeek, 4 ref (more content not included)...[facility] Medical CenterComment on above:Result Comment: Electronically Signed By: KIA SAMUEL CNP\.br\Date and Time Signed: 10/22/24 10:03 EDTAmbulatory Visit Summaryon 60-04-7359Mhambqqqdo Visit SummaryAmbulatory Visit Summary MICHEAL BRICE :1940 Visit Date:10/21/2024 [...] Appointments Sunday2025 9:30 AM EST With: Where: [address] [address]- Sunday2025 10:20 AM EST With: Caimla Max Where: [place] [id number]- Medications What How Much When Instructions Unchanged [...] 1 Capsules By Mouth 2 times a dayContact prescribing physician if questions or concerns Allergies [...] yet, please contact [employer] Information Management at [phone] to get signed up today. Language Information Language assistance services are available as needed. [facility] [facility] Urineon [id number] identified Cx Nom (U)Microbiology PROCEDURE: Urine Culture [R1] SOURCE: U CleanCatch BODY SITE: COLLECTED DATE/TIME: 10/14/2024 09:30 EDT RECEIVED DATE/TIME: 10/14/2024 16:50 EDT START DATE/TIME: 10/14/2024 16:50 EDT FREE TEXT SOURCE: Camila Max Jodi L FINAL REPORTS Final Report [] Verified Date/Time: 10/16/2024 11:02 EDT <10,000 cfu/ml Mixed skin contaminants Performing Locations R1: This test was performed at: [facility], [address] [place] [address], [address]- , [place], UvwmqbJivxts Mercy Medical CenterComment on above:Performed By: #### [id number] #### [facility] [address] [place] [address] Freeon 14-73-5802Errd T3 [Mass/Vol]4.3 pg/mLInvalid Interpretation Code2.0-4.4Fisher Mercy Medical CenterComment on above:Result Comment: Performed at: [facility] [address] [id number] PhD Mark SalcedoPerformed By: #### [id number] #### [facility] [address] [place] [address]Gyxuyfiymup 62-12-2711KhkbtctfeNmbwglyfc From: Camila Max To: [facility] - Clinical; [...] D 25 Hydroxy 42.9 ng/mL (30.0 - 100.0)[facility] CenterAmbulatory Visit Summaryon 44-23-7379Kvbjsdgbxi Visit Summary Ambulatory Visit Summary MICHEAL BRICE [...] Appointments Sunday2025 9:30 AM EST With: Where: [address] [address]- Sunday2025 10:20 AM EST With: Camila Max Where: [address] [address]- Medications What How Much When Instructions Unchanged [...] signed up for this yet, please contact [employer] at [phone] to get signed up today. Language Information Language assistance services are available as needed. NormalMemorial Health System Selby General HospitalCMPon 28-63-0615Mifpuin [Mass/Vol]4.2 g/dLNormal3.3-5.0[facility] HospitalComment on above: Performed By: #### [id number] #### [facility] [address], [place] [address]Ehukgqh/Globulin [Mass ratio]1.8 {ratio}Normal1.1-2.2FRegency Hospital Cleveland WestComment on above:Performed By: #### [id number] #### [facility] [address], [place] [address]Cqc Phos87 Int._Unit/YYeuxwv33-01OfyjbyMemorial Health System Selby General Hospital Comment on above:Performed By: #### [id number] #### [facility] [address], [place] [address]VLP38 Int._Unit/LNormal6-46[facility] HospitalComment on above:Performed By: #### [id number] #### [facility] [address], [place] [address]Mjicn gap [Moles/Vol]9 mmol/LNormal6-16[facility] HospitalComment on above:Performed By: #### [id number] #### [facility] [address], [place] [address]MJN35 Int._Unit/LNormal5-43[facility] HospitalComment on above:Performed By: #### [id number] #### [facility] [address], [place] [address]Cvmg Total0.7 mg/dLNormal0.0-1.1FRegency Hospital Cleveland West Comment on above:Performed By: #### [id number] #### [facility] [address], [place] [address]IWQ/Creat Ratio27 No WrryvRsyj75-57VvwhthMemorial Health System Selby General Hospital Comment on above:Performed By: #### [id number] #### [facility] [address], [place] [address]Lnurofa [Mass/Vol]9.8 mg/dLNormal8.9-11.1FRegency Hospital Cleveland WestComment on above:Performed By: #### [id number] #### [facility] [address], [place] [address]Yxukwlbb [Moles/Vol]106 mmol/RUeitvv406-749OqfetnMemorial Health System Selby General HospitalComment on above:Performed By: #### [id number] #### [facility] [address], [place] [address]CV1 [Moles/Vol]28 mmol/BPyfgef85-47LhnmuyMemorial Health System Selby General Hospital Comment on above:Performed By: #### [id number] #### [facility] [address], [place] [address]Rzqahiqxzd [Mass/Vol]0.6 mg/dLNormal0.5-1.3FRegency Hospital Cleveland WestComment on above:Performed By: #### [id number] #### [facility] [address], [place] [address]Gmfddrnp (S) [Mass/Vol]2.3 g/dLNormal1.4-4.0[facility] HospitalComment on above:Performed By: #### [id number] #### [facility] [address], [place] [address]Aukyvaq [Mass/Vol]92 mg/sQHkxhaq52-541BzhkwrMemorial Health System Selby General HospitalComment on above:Performed By: #### [id number] #### [facility] [address], [place] [address]Hosiderdi [Moles/Vol]4.2 mmol/LNormal3.5-5.3FRegency Hospital Cleveland WestComment on above:Performed By: #### [id number] #### [facility] [address], [place] [address]Vlobgxg [Mass/Vol]6.5 g/dLNormal6.0-7.8[facility] HospitalComment on above:Performed By: #### [id number] #### [facility] [address], [place] [address]Tfbpzu [Moles/Vol]139 mmol/GEfnoro836-033DgijofMemorial Health System Selby General HospitalComment on above:Performed By: #### [id number] #### [facility] [address], [place] [address]Kwpl nitrogen [Mass/Vol]16 mg/dLNormal5-21[facility] General HospitalComment on above:Performed By: #### [id number] #### [facility] [address], [place] [address]Yvpivv Medicine Office/Clinic Noteon 68-10-3961Liqslz Medicine Office/Clinic NoteFanashoba valley medical center Medicine Office/Clinic Note HPI Staff Micheal is [...] needed Ordered: Comprehensive Metabolic Panel Free T4 [facility] Internal Ambulatory Referral T3 Free Thyroid Stimulating Hormone Vitamin D 25 Hydroxy 2. Hair thinning (L65.9: Nonscarring hair loss, unspecified) will check thyroid levels today Ordered: Comprehensive Metabolic Panel Free T4 [facility] Internal Ambulatory Referral T3 Free Thyroid Stimulating Hormone Vitamin D 25 Hydroxy 3. Flank pain (R10.9: Unspecified abdominal pain) a few weeks ago she was having right flank pain. u/a in office negative for blood. Ordered: [facility] Internal Ambulatory Referral 4. 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 patient states she fears she has been chipped . when she was given a vaccine in that arm. much reassurance provided thatnetta does not have a chip in her arm. Ordered: [facility] Internal Ambulatory Referral 5. Non-smoker (Z78.9: Other specified health status) continue not smoking Ordered: Body Mass Index (BMI) documented 3008F Comprehensive Metabolic Panel Current tobacco non-user 1036F Depression Screening Negative 3352F Free T4 [facility] Internal Ambulatory Referral Influenza immunization status assessed [...] Stomach. Medications Acidophilus Pro (more content not included)...[facility] Comment on above:Result Comment: Electronically Signed By: Camila Max\.sonido\Date and Time Signed: 10/14/24 09:31 EDTFree T4on 61-26-0562Wekf T4 [Mass/Vol]0.87 ng/dLNormal0.58-1.64[facility] HospitalComment on above: Performed By: #### [id number] #### [facility] [address], [place] [address]TVQcv 51-50-1753ICG Qn0.08 m[IU]/LLow0.34-5.60[facility] HospitalComment on above:Performed By: #### [id number] #### [facility] [address], [place] [address]Thjjpjs D 25 Hydroxyon 06-39-4333Wqblrgc D 25 Pouryua75.9 ng/mL Iwkisi14.0-100.0[facility] HospitalComment on above:Performed By: #### [id number] #### [facility] [address], [place] [address]zHYXgn 01-46-7075qOOG36 mL/min/1.73 j1Ggceaq>=59[facility] HospitalComment on above:Performed By: #### [id number] #### [facility] [address], [place] [address]WM Jt Injection/Arthrocentesis: L kneeon 06-66-6449UktkLuis Felipe Lopes MD 06/13/2024 10:56 AM LG Jt Injection/Arthrocentesis: L knee Performed by: Luis Felipe Lopes MD Authorized by: Luis Felipe Lopes MD CPT 56260 - Large Joint Arthrocentesis: Consent given by: [...] tolerated the procedure well with no immediate complicationsOhioHealthOhioHealthXR KNEES STANDING BILATERAL AP/ LAT EACHon 11-55-9605RS KNEES STANDING BILATERAL AP/ LAT EACHMultiple radiographic views were obtained and reviewed of [...] LOPES on SunJun 13, 2024 10:52:24 AM [facility] on above:Order Comment: Injury/Trauma or Illness?:Illness/Other How long have you had these symptoms (acute/chronic)?:Unknown Reason for exam?:na History of cancer?:na Surgeries, chemotherapy, or radiation?:na Type of Exam?:Unknown Additional signs and symptoms?:naXR LUMBAR SPINE 2-3 VIEWS (STANDARD)on 36-84-2104YG LUMBAR SPINE 2-3 VIEWS (STANDARD)AP lateral views lumbar spine show multilevel degenerative change with mild L4-L5 spondylolisthesis Dictated by: LUIS FELIPE LOPES on SunJun 13, 2024 10:52:43 AM EDT Transcribed by: LUIS FELIPE LOPES on SunJun 13, 2024 10:52:43 AM EDT Finalized by: LUIS FELIPE LOPES on SunJun 13, 2024 10:52:43 AM [facility] on above:Order Comment: Injury/Trauma or Illness?:Illness/Other How long have you had these symptoms (acute/chronic)?:Unknown Reason for exam?:NA History of cancer?:na Surgeries, chemotherapy, or radiation?:na Type of Exam?:Unknown Additional signs and symptoms?:[facility] Medicine Office/Clinic Noteon 04-25-2024 Family Medicine Office/Clinic NoteFanashoba valley medical center Medicine Office/Clinic Note HPI Staff Micheal is [...] disorders) u/s right upper arm faxed to [facility]. will refer to general surgery if [...] acel/tetanus adult 08/07/2013 Recorded tetanus-diphtheria toxoids 03/19/2004 [facility] Comment on above:Result Comment: Electronically Signed By: Camila Max\.br\Date and Time Signed: 04/25/24 12:52 ESTAmbulatory Visit Summaryon 28-28-5588Vjowfmpajo Visit SummaryAmbulatory Visit Summary MICHEAL BRICE :1940 Visit Date:04/10/2024 [...] Appointments Sunday2025 9:30 AM EST With: Where: [address] [id number]- Sunday2025 10:20 AM EST With: Camila Max Where: [address] [address]- Medications What How Much When Instructions Unchanged [...] 2 diabetes, you will have one or bothof these problems: ??? Your pancreas does not [...] an inactive (sedentary) lifestyle can increase your riskfor diabetes. Type 2 diabetes can be delayed or prevented by making certain nutrition and lifestylechanges. How can this condition affect me? If [...] about eating or d (more content not included)...[facility] Medical CenterCHEMISTRYOrdered By: SYSTEM SYSTEM on 21-80-9482Wuakhkr [Mass/Vol]4.2 g/dLNormal3.3 - 5.0 gm/dL Remisol ChemAlbumin/Globulin [Mass ratio]2.0 {ratio}Normal1.1 - 2.2Remisol Chem ALP [Catalytic activity/Vol]86 [iU]/gSdhvuc57 - 98 Int._Unit/LRemisol ChemALT No additional P-5'-P [Catalytic activity/Vol]15 [iU]/dNormal6 - 46 Int._Unit/L Remisol ChemAnion gap [Moles/Vol]10 mmol/LNormal6 - 16 mEq/LRemisol ChemAST [Catalytic activity/Vol]18 [iU]/dNormal5 - 43 Int._Unit/LRemisol ChemBilirubin [Mass/Vol]0.6 mg/dLNormal0.0 - 1.1 mg/dLRemisol ChemCalcium [Mass/Vol]9.6 mg/dL Normal8.9 - 11.1 mg/dLRemisol ChemChloride [Moles/Vol]104 mmol/BGxvlvd644 - 111 mmol/LRemisol ChemCholesterol [Mass/Vol]221 mg/kFScjl530 - 200 mg/dLRemisol Chem Cholesterol in HDL [Mass/Vol]56 mg/dLInvalid Interpretation CodeRemisol Chem Comment on above:Result Comment: '>= 60 LOW RISK' '<= 40 HIGH RISK'Cholesterol in LDL [Mass/Vol]159 mg/dLHigh<=129mg/dLRemisol ChemCholesterol in VLDL [Mass/Vol]14 mg/dLNormal7 - 40 mg/dLRemisol ChemCO2 [Moles/Vol]28 mmol/YDvfqxr98 - 31 mmol/LRemisol ChemCreatinine [Mass/Vol]0.7 mg/dLNormal0.5 - 1.3 mg/dLRemisol UyhnnKTK10 mL/min/1.73 y7Jaboyy>=59mL/min/1.73 r8Gyrxhdn ChemGlobulin (S) [Mass/Vol]2.1 g/dLNormal1.4 - 4.0 gm/dLRemisol Chem Glucose [Mass/Vol]95 mg/lZMbxmsl97 - 199 mg/dLRemisol ChemPotassium [Moles/Vol] 4.4 mmol/LNormal3.5 - 5.3 mmol/LRemisol ChemProtein [Mass/Vol]6.3 g/dLNormal6.0 - 7.8 gm/dLRemisol ChemSodium [Moles/Vol]138 mmol/IOaclkv494 - 145 mmol/LRemisol ChemTriglyceride [Mass/Vol]69 mg/dLNormal<=149mg/dLRemisol ChemTSH Qn0.50 m[IU]/LNormal0.34 - 5.60 mcIU/mLRemisol ChemUrea nitrogen [Mass/Vol]20 mg/dL Normal5 - 21 mg/dLRemisol ChemUrea nitrogen/Creatinine [Mass ratio]29 mg/mgHigh 10 - 20Remisol ChemCMPon 34-56-6723Jcapbyg [Mass/Vol]4.2 g/dLNormal3.3-5.0[facility] HospitalComment on above:Performed By: #### [id number] #### [facility] [address], [place] [address]Mdosern/Globulin (S) [Mass conc ratio]2.4Wriqha7.1-2.2FRegency Hospital Cleveland WestComment on above:Performed By: #### [id number] #### [facility] [address], [place] [address]XBM [Catalytic activity/Vol]86 Int._Unit/SKfnthi90-24JrjxfjMemorial Health System Selby General HospitalComment on above:Performed By: #### [id number] #### [facility] [address], [place] [address]SCR No additional P-5'-P [Catalytic activity/Vol]15 Int._Unit/L Normal6-46[facility] HospitalComment on above:Performed By: #### [id number] #### [facility] [address], [place] [address]Ehkea gap [Moles/Vol]10 mmol/LNormal6-16[facility] HospitalComment on above:Performed By: #### [id number] #### [facility] [address], [place] [address]HGY [Catalytic activity/Vol]18 Int._Unit/LNormal5-43[facility] HospitalComment on above:Performed By: #### [id number] #### [facility] [address], [place] [address]Jncqolobv [Mass/Vol]0.6 mg/dLNormal0.0-1.1FRegency Hospital Cleveland WestComment on above:Performed By: #### [id number] #### [facility] [address], [place] [address]Hqsnvxl [Mass/Vol]9.6 mg/dLNormal8.9-11.1FRegency Hospital Cleveland WestComment on above:Performed By: #### [id number] #### [facility] [address], [place] [address]Zgqhjmsh [Moles/Vol]104 mmol/PMqjbnw830-822DcfxxsMemorial Health System Selby General HospitalComment on above:Performed By: #### [id number] #### [facility] [address], [place] [address]DC5 [Moles/Vol]28 mmol/SKvgzls69-88WzejsqMemorial Health System Selby General Hospital Comment on above:Performed By: #### [id number] #### [facility] [address], [place] [address]Rrmbhqvajv [Mass/Vol]0.7 mg/dLNormal0.5-1.3FRegency Hospital Cleveland WestComment on above:Performed By: #### [id number] #### [facility] [address], [place] [address]Oylvivhf (S) [Mass/Vol]2.1 g/dLNormal1.4-4.0[facility] HospitalComment on above:Performed By: #### [id number] #### [facility] [address], [place] [address]Ntxezre [Mass/Vol]95 mg/oODjqhcq85-987IamuovMemorial Health System Selby General HospitalComment on above:Performed By: #### [id number] #### [facility] [address], [place] [address]Nwsdtappw [Moles/Vol]4.4 mmol/LNormal3.5-5.3FRegency Hospital Cleveland WestComment on above:Performed By: #### [id number] #### [facility] [address], [place] [address]Vasdbsx [Mass/Vol]6.3 g/dLNormal6.0-7.8[facility] HospitalComment on above:Performed By: #### [id number] #### [facility] [address], [place] [address]Veeqrv [Moles/Vol]138 mmol/FOzedaa093-830JkwwzfMemorial Health System Selby General HospitalComment on above:Performed By: #### [id number] #### [facility] [address], [place] [address]Fyyu nitrogen [Mass/Vol]20 mg/dLNormal5-21[facility] HospitalComment on above:Performed By: #### [id number] #### [facility] [address], [place] [address]Iczu nitrogen/Creatinine [Mass ratio]29 No CptesQjad90-89YeyoeuMemorial Health System Selby General HospitalComment on above:Performed By: #### [id number] #### [facility] [address], [place] [address]Qurwdk Medicine Office/Clinic Noteon 05-17-1284Ylvacr Medicine Office/Clinic NoteFami Medicine Office/Clinic Note Chief Complaint Subsequent Medicare [...] and all current CDC recommended immunizations, relevant riskrecommendations and the following patient brochures were given. Reviewed Medicare Prevention Services checklist. CDC-Falls Prevention and home safety screening reviewed. Patient denies any falls in last 12 months, voices no worry about falling. Exhibits no problems with sitting, standing or ambulation. Patient aware with keeping walk way area free of clutter to prevent tripping and/or falling. [place] Advance Directives reviewed. Documents remain at home office, encouraged to bring in for scanning into chart. Patient denies any problems with ADL???s and Instrumental ADL???s. Cognitive screening completed with memory and clock face drawing. No deficits noted. Immunization record reviewed, discussed Shingrix vaccine with educational handout and availability.No COVID vaccines have been administered. Allergies and [...] for and report to provider. Patient is encouragedto increase portions of fruit, vegetables, fiber and [...] exercise regimen. When you are overweight our bodyproduces more lipids. Risk also increases with family history of hyperlipidemia and with monitoringalcohol use and avoid smoking. Pt voices understanding with importance of monitoring dietary intaketo reduce risk factors associated with CVA. Patient not currently on statin. Will continue to follow up with office visits with updated labs as directed. 4. Family history of diabetes mellitus (DM) (Z83.3: Family history of diabetes mellitus) Patient screened for diabetes with risk score of 7, discussed / denies family history with increased risk for diabetes. DM s (more content not included)... [facility] CenterComment on above:Result Comment: Electronically Signed By: Camila Max\.br\Date and Time Signed: 04/10/24 12:37 EST\.br\Electronically Co-Signed By: Shabnam Barrientos\.br\Date and Time Co-Signed: 04/10/24 12:05 [facility] Medicine Office/Clinic NoteNorthside [facility] Dul[facility] Office/Clinic Note [facility] Staff Christel is an 84 year old [...] E&M of Est. Patient Low 20-29 Min 43812 Lipid Panel Thyroid Stimulating Hormone 2. S/P [...] E&M of Est. Patient Low 20-29 Min 71850 Lipid Panel Thyroid Stimulating Hormone 3. Hypercholesteremia (E78.00: Pure hypercholesterolemia, unspecified) lipid panel drawn in office today Ordered: Comprehensive Metabolic Panel E&M of Est. Patient Low 20-29 Min [address]878 Lipid Panel Thyroid Stimulating Hormone 4. BMI 35.0-35.9,adult (Z68.35: Body mass index [BMI] 35.0-35.9, adult) BMI education given Ordered: Comprehensive Metabolic Panel E&M of Est. Patient Low 20-29 Min 40575 Lipid Panel Thyroid Stimulating Hormone 5. Non-smoker (Z78.9: Other specified health status) continue not smoking Ordered: Comprehensive Metabolic Panel E&M of Est. Patient Low 20-29 Min 22490 Lipid Panel Thyroid Stimulating Hormone Follow-up No [...] acel/tetanus adult 08/07/2013 Recorded tetanus-diphtheria toxoids 03/19/2004 RecordedNoalMemorial Health System Selby General Hospital Comment on above:Result Comment: Electronically Signed By: Camila Max.br\Date and Time Signed: 04/10/24 10:38 ESTLipid Panelon 04-10-2024 Cholesterol [Mass/Vol]221 mg/gQFksg279-701MttmhvMemorial Health System Selby General HospitalComment on above:Performed By: #### [id number] #### [facility] [address], [place] [address]Wxrpymtcjhd in HDL [Mass/Vol]56 mg/dLInvalid Interpretation CodeMemorial Health System Selby General HospitalComment on above:Result Comment: '>= 60 LOW RISK' '<= 40 HIGH RISK'Performed By: #### [id number] #### [facility] [address], [place] [address]Ukldihypwgr in LDL [Mass/Vol]159 mg/dLHigh<=129[facility] HospitalComment on above:Performed By: #### [id number] #### [facility] [address], [place] [address]Mnruqktlipa in VLDL [Mass/Vol]14 mg/dLNormal7-40[facility] HospitalComment on above:Performed By: #### [id number] #### [facility] [address], [place] [address]Umeuptxdrgzu [Mass/Vol]69 mg/dLNormal<=149[facility] General HospitalComment on above:Performed By: #### [id number] #### [facility] [address], [place] [address]FDWho 88-14-3267ZDJ Qn0.50 m[IU]/LNormal0.34-5.60[facility] HospitalComment on above:Performed By: #### [id number] #### [facility] [address], [place] [address]pVYZto 60-27-8524mRJY68 mL/min/1.73 g3Oafoor>=59[facility] General HospitalComment on above:Performed By: #### [id number] #### [facility] [address], [place] [address]X DIFFICILE BY PCRon 08-27-2023. difficile toxin genes KELVIN+probe Ql (Stl)TOXIGENIC C DIFF Positive (qualifier value) 027 NAP1 Negative (qualifier value)NormalPRNEGProMediBarton Memorial HospitalComment on above: Performed By: #### [id number] #### [facility] ([id number]) [address] [place], [place] [address]Kafq,Aerobe/Anaerobeon 05-04-5469Zlmb,Aerobe/AnaerobeSpecimen Description .ABDOMEN Direct Exam MANY NEUTROPHILS MODERATE GRAM POSITIVE COCCI IN PAIRS MODERATE GRAM NEGATIVE RODS Culture BACTEROIDES THETAIOTAOMICRON MODERATE GROWTH BETA LACTAMASE POSITIVE Identificati on by MALDI-TOF BACTEROIDES STERCORIS MODERATE GROWTH BETA LACTAMASE POSITIVE Identification by MALDI-TOF NO AEROBIC ORGANISMS ISOLATED Report Status FINAL 4AbnSt. Francis HospitalComment on above: Performed By: #### AANC #### [facility] [address] [place] [address] [employer] Developer: Salinas Escalante MD [facility] [address] [place] [address] [employer] Developer: Willy Henson [facility] auto differentialon 83-15-4748Fmclmexsr (Bld) [#/Vol]0.12 10*3/uLBON [facility] CORPORATIONOURS [facility] HOSPITALBasophils/100 WBC (Bld)1 %0 - 2 %[facility]ITALEosinophils (Bld) [#/Vol]0.00 10*3/uLBON [facility]ATIONOURS [facility] LOR[facility] HOSPITALEosinophils/100 WBC (Bld)0 %Low1 - 4 %[facility]OSPITALErythrocyte distribution width (RBC) [Ratio]12.5 %11.8 - 14.4 %[facility] Hematocrit (Bld) [Volume fraction]35.0 %Low36.3 - 47.1 %[facility] Hemoglobin (Bld) [Mass/Vol]10.9 g/dLLow11.9 - 15.1 g/dLBON [facility] Immature granulocytes (Bld) [#/Vol]0.12 10*3/uLBON [facility]ORIAL HOSPITALImmature granulocytes/100 WBC (Bld)1 %Udzg0AEW [facility]IAL HOSPITALInterpretation and review of laboratory resultsAbnormalBON ELYRIA MEMORIAL HOSPITALLymphocytes/100 WBC (Bld)74 %High24 - 43 %BON [facility]ORIAL HOSPITALLymphocytes/100 WBC (Bld)8.73 % HighBON ELYRIA MEMORIAL HOSPITALMCH (RBC) [Entitic mass]28.6 pg25.2 - 33.5 pgBON REGENCY HOSPITAL CLEVELAND EASTHC (RBC) [Mass/Vol]31.1 g/dL28.4 - 34.8 g/dLBON REGENCY HOSPITAL CLEVELAND EASTV (RBC) [Entitic vol]91.9 fL82.6 - 102.9 fLDOMINION HOSPITALMonocytes/100 WBC (Bld)4 %3 - 12 %BON [facility] HOSPITALMonocytes/100 WBC (Bld)0.47 %[facility]OSPITALMorphology Ki (Bld) [Interp]NormalBON ELYRIA MEMORIAL HOSPITALNeutrophils/100 WBC (Bld)20 %Low36 - 65 %BON [facility] HOSPITALNucleated RBC/100 WBC (Bld) [Ratio]0.0 %0.0 per 100 WBCBON ELYRIA MEMORIAL HOSPITALPlatelet mean volume (Bld) [Entitic vol]10.8 fL8.1 - 13.5 fLDOMINION HOSPITALPlatelets (Bld) [#/Vol]240 10*3/uLBON ELYRIA MEMORIAL HOSPITALRBC (Bld) [#/Vol]3.81 10*6/uLLow3.95 - 5.11 m/uLDOMINION HOSPITALSegmented neutrophils/100 WBC (Bld)2.36 %BON [facility] MEMORIAL HOSPITALWBC other (Bld) [#/Vol] 11.8HighCJW MEDICAL CENTERCBC with Diffon [id number]. Basophil0.12 k/uLNormal0.0-0.2MercSaint Francis Hospital & Medical CenterComment on above:Performed By: #### CDP, CMPX #### [facility] [address] [place] [address] [employer]formix Developer: Chapin Lord.Imm.Granulocyte0.12 k/uLNormal0.00-0.30MerBackus HospitalComment on above:Performed By: #### CDP, CMPX #### [facility] [address] [place] [address] Informix Developer: Chapin Lord.Neutrophil (Seg)2.36 k/uLNormal1.50-8.10[facility] HospitalComment on above:Performed By: #### CDP, CMPX #### [address] [place] [address] Informix Developer: Willy Henson MDBasophils/100 WBC (Bld)1 %Normal0-2[facility] HospitalComment on above:Performed By: #### CDP, CMPX #### [address] [place] [address] Informix Developer: Willy Henosn MDEosinophils (Bld) [#/Vol]0.00 10*3/uLNormal 0.00-0.44MerClermont County Hospital HospitalComment on above:Performed By: #### CDP, CMPX #### [address] [place], [place] [address] Informix Developer: ADOLFO Lordosinophils/100 WBC (Bld)0 %Low1-4[facility] HospitalComment on above:Performed By: #### DIDI, CMPX #### [address] [place] [address] Informix Developer: Willy Henson MDImmature granulocytes/100 WBC (Bld)1 %Hbqb6TpbpmUc Medical CenterComment on above:Performed By: #### CDP, CMPX #### [address] [place] [address] Informix Developer: Willy Henson MDLymphocytes (Bld) [#/Vol]8.73 10*3/uLHigh1.10-3.70 [facility]c Medical CenterComment on above:Performed By: #### CDP, CMPX #### [address] [place], [place] [id number] Informix Developer: Erick Lordmphocytes/100 WBC (Bld)74 %Dfxh73-20Zjqlc Tiffin HospitalComment on above:Performed By: #### CDP, CMPX #### [address] [place], [place] [address] Informix Developer: JOSE L Lordonocytes (Bld) [#/Vol]0.47 10*3/uLNormal0.10-1.20 [facility] HospitalComment on above:Performed By: #### CDP, CMPX #### [address] [place], [facility]83 Informix Developer: JOSE L Lordonocytes/100 WBC (Bld)4 %Normal3-12[facility] HospitalComment on above:Performed By: #### CDP, CMPX #### [address] [place], [place] [address] Informix Developer: JOSE L Lordorphology Ki (Bld) [Interp]NormalNormalUc Medical CenterComment on above:Performed By: #### CDP, CMPX #### [address] [place], [place] [address] Informix Developer: Willy Henson MDNeutrophil (Seg)20 %Hcq72-15UjfmaUc Medical Center Comment on above:Performed By: #### CDP, CMPX #### [address] [place], [facility]83 Informix Developer: Willy Henson MDErythrocyte distribution width (RBC) [Ratio]12.5 % Fdgwih18.8-14.4Uc Medical CenterComment on above:Performed By: #### CDP, CMPX #### [address] [place], [place] [address]83 Informix Developer: Willy Henson MDHematocrit (Bld) [Volume fraction]35.0 %Low 36.3-47.1[facility] Windber HospitalComment on above:Performed By: #### CDP, CMPX #### [address] [place], [place] 17[address]383 Informix Developer: Willy Henson MDHemoglobin (Bld) [Mass/Vol]10.9 g/dLLow11.9-15.1 [facility] Medical CenterComment on above:Performed By: #### CDP, CMPX #### [address] [place], [place] [id number] Informix Developer: JOSE L LordCH (RBC) [Entitic mass]28.6 goUtdkqk53.2-33.5 [facility] Medical CenterComment on above:Performed By: #### CDP, CMPX #### [address] [place] [address] Informix Developer: KIRBY LordC (RBC) [Mass/Vol]31.1 g/wFSfyucw79.4-34.8[facility]c Medical CenterComment on above:Performed By: #### DIDI, CMPX #### [address] [place], [place] [id number] Informix Developer: JOSE L LordCV (RBC) [Entitic vol]91.9 oCXforex14.6-102.9 [facility] Medical CenterComment on above:Performed By: #### DIDI, CMPX #### [address] [place], [facility]83 Informix Developer: Willy Henson MDNRBC Automated0.0 per 100 WBCNormal0.0[facility] HospitalComment on above:Performed By: #### CDP, CMPX #### [address] [place] [address] Informix Developer: DESTINEE Lordlatelet mean volume (Bld) [Entitic vol]10.8 fL Normal8.1-13.5Uc Medical CenterComment on above:Performed By: #### CDP, CMPX #### [address] [place], [place] [id number] Informix Developer: Charlene Lord ([facility]) [#/Vol]240 10*3/rQJdoths024-390 [facility] HospitalComment on above:Performed By: #### CDP, CMPX #### [address] [place], [place] 4956283 Informix Developer: MALORIE Lord ([facility]) [#/Vol]3.81 10*6/uLLow3.95-5.11[facility] HospitalComment on above:Performed By: #### CDP, CMPX #### [address] [place] [address] Informix Developer: CHRISTOPH Lord ([facility]) [#/Vol]11.8 10*3/uLHigh3.5-11.3Mpaulding county hospitaly Windber HospitalComment on above:Performed By: #### CDP, CMPX #### [address] [place], [place] [id number] Informix Developer: PATTIE Lordomp Metabolic Pr/rfx MGon 14-70-1631Oejzuxb [Mass/Vol]3.4 g/dLLow3.5-5.2[facility] HospitalComment on above:Performed By: #### CDP, CMPX #### [address] [place], [place] 5994183 Informix Developer: Willy Henson MDAlbumin/Glob Ratio1.1Lqcjsj4.0-2.5[facility] HospitalComment on above:Performed By: #### CDP, CMPX #### [address] [place] [address] Informix Developer: Shelli Lordkaline Dpor933 U/NSaxk95-544Bdmgn Tiffin HospitalComment on above:Performed By: #### CDP, CMPX #### [facility] [address] [place] [address] [place] [address] Informix Developer: Willy Henson MDALT [Catalytic activity/Vol]13 U/LNormal5-33Uc Medical CenterComment on above:Performed By: #### CDP, CMPX #### [address] [place] [address] Informix Developer: Willy Henson MDAnion gap [Moles/Vol]10 mmol/LNormal9-17[facility]c Medical CenterComment on above:Performed By: #### CDP, CMPX #### [address] [place] [address] Informix Developer: Willy Henson MDAST [Catalytic activity/Vol]15 U/LNormal<32MerBackus HospitalComment on above:Performed By: #### CDP, CMPX #### [address] [place], [place] [address]83 Informix Developer: Willy Henson MDBilirubin [Mass/Vol]0.2 mg/dLLow0.3-1.2MMercy Health St. Rita's Medical CenterComment on above:Performed By: #### CDP, CMPX #### [address] [place] [address] Informix Developer: Willy Henson MDBUN/CRE Yrxjy30Dieg4-77XqbysUc Medical Center Comment on above:Performed By: #### CDP, CMPX #### [address] [place] [address] Informix Developer: PATTIE Lordalcium [Mass/Vol]9.1 mg/dLNormal8.6-10.4[facility]c Medical CenterComment on above:Performed By: #### CDP, CMPX #### [address] [place], [place] [address]83 Informix Developer: PATTIE Lordhloride [Moles/Vol]107 mmol/KBiilvu87-544IduzdUc Medical CenterComment on above:Performed By: #### CDP, CMPX #### [address] [place] [address] Informix Developer: Willy Henson MDCO2 [Moles/Vol]23 mmol/GWvkqwq00-20IzqidUc Medical CenterComment on above:Performed By: #### CDP, CMPX #### [address] [place], [place] [id number] Informix Developer: PATTIE Lordreatinine [Mass/Vol]0.8 mg/dLNormal0.5-0.9[facility]c Medical CenterComment on above:Performed By: #### CDP, CMPX #### [address] [place] [address] Informix Developer: Willy Henson MDGFR/1.73 sq M.predicted among non-blacks MDRD (S/P/Bld) [Vol rate/Area]74 mL/min/{1.73_m2}Normal>60[facility] Comment on above:Result Comment: These results are not intended for [...] or following therapy that affects renal tubular secretion.Performed By: #### CDP, CMPX #### [address] [place] [address] Informix Developer: Willy Henson MDGlucose [Mass/Vol]91 mg/ePErxgqy55-83SeayyMercy Health St. Rita's Medical CenterComment on above:Performed By: #### CDP, CMPX #### [address] [place] [address] Informix Developer: Willy Henson MDPotassium [Moles/Vol]4.2 mmol/LNormal3.7-5.3MOhioHealth Doctors Hospital HospitalComment on above:Performed By: #### CDP, CMPX #### [address] [place] [address] Informix Developer: Willy Henson MDProtein [Mass/Vol]5.9 g/dLLow6.4-8.3MOhioHealth Doctors Hospital HospitalComment on above:Performed By: #### CDP, CMPX #### [address] [place] [address] Informix Developer: Willy Henson MDSodium [Moles/Vol]140 mmol/QVngbfv953-730UdntuUc Medical CenterComment on above:Performed By: #### CDP, CMPX #### [address] [place] [address] Informix Developer: Willy Henson MDUrea nitrogen [Mass/Vol]17 mg/dLNormal8-23Uc Medical CenterComment on above:Performed By: #### CDP, CMPX #### [address] [place] [address] Informix Developer: PATTIE Lordomprehensive Metabolic Panel w/ Reflex to MGon [id number] [Mass/Vol]3.4 g/dLLow3.5 - 5.2 g/dLB[facility] Albumin/Globulin [Mass ratio]1.4 {ratio}1.0 - 2.5B[facility]ORIAL HOSPITALALP [Catalytic activity/Vol]105 U/LHigh35 - 104 U/LBON [facility]IAL HOSPITALALT [Catalytic activity/Vol]13 U/L5 - 33 U/LBON [facility] HOSPITALAnion gap [Moles/Vol]10 mmol/L9 - 17 mmol/LBON [facility] MEMORIAL HOSPITALAST [Catalytic activity/Vol]15 U/LNINF - 32 U/LBON [facility]OR[facility] HOSPITALBilirubin [Mass/Vol]0.2 mg/dLLow0.3 - 1.2 mg/dLBON [facility] HEALTHCalcium [Mass/Vol]9.1 mg/dL8.6 - 10.4 mg/dLBON [facility]A MEMORIAL HOSPITALChloride [Moles/Vol]107 mmol/L98 - 107 mmol/L [facility]PITALCO2 [Moles/Vol]23 mmol/L20 - 31 mmol/LBON [facility] HOSPITALCreatinine [Mass/Vol]0.8 mg/dL0.5 - 0.9 mg/dLBON ELYRIA [facility]ORIAL HOSPITALEst, Glom Filt Rate74- PINFBON ELYRIA MEMORIAL HOSPITALComment on above: These results are not intended [...] therapy that affects renal tubular secretion. Glucose [Mass/Vol]91 mg/dL70 - 99 mg/dLBON ELYRIA MEMORIAL HOSPITALInterpretation and review of laboratory resultsAbnormalBON ELYRIA [facility]IAL HOSPITALPotassium [Moles/Vol]4.2 mmol/L3.7 - 5.3 mmol/LBON [facility]IAL HOSPITALProtein [Mass/Vol] 5.9 g/dLLow6.4 - 8.3 g/dLBON ELYRIA MEMORIAL HOSPITALSodium [Moles/Vol]140 mmol/L135 - 144 mmol/LBON [facility]ORIAL HOSPITALUrea nitrogen [Mass/Vol]17 mg/dL8 - 23 mg/dLBON ELYRIA MEMORIAL HOSPITALUrea nitrogen/Creatinine [Mass ratio]21 mg/mgHigh9 - 20BON [facility] SPECIALTY HOSPITALEKG Rhythm Stripon [id number] MENTAL HEALTH INSTITUTE AT FORT LOGANCBC auto differentialon [id number] (Bld) [#/Vol] 0.00 10*3/uLBON ELYRIA MEMORIAL HOSPITALBasophils/100 WBC (Bld)0 %0 - 2 %DOMINION HOSPITALEosinophils (Bld) [#/Vol]0.00 10*3/uLBON [facility] Eosinophils/100 WBC (Bld)0 %Low1 - 4 %DOMINION HOSPITALErythrocyte distribution width (RBC) [Ratio]12.2 %11.8 - 14.4 %[facility] Hematocrit (Bld) [Volume fraction]30.9 %Low36.3 - 47.1 %[facility] Hemoglobin (Bld) [Mass/Vol]9.9 g/dLLow11.9 - 15.1 g/dLB[facility] Immature granulocytes (Bld) [#/Vol]0.00 10*3/uLBON SECOHIOHEALTHImmature granulocytes/100 WBC (Bld)0 %0DOM[facility] HOSPITALInterpretation and review of laboratory resultsAbnormalBON ELYRIA MEMORIAL HOSPITALLymphocytes/100 WBC (Bld)56 %High24 - 43 %DOMINION HOSPITALLymphocytes/100 WBC (Bld)5.71 %HighBON REGENCY HOSPITAL CLEVELAND EASTH (RBC) [Entitic mass]28.6 pg25.2 - 33.5 pgRIVERSIDE BEHAVIORAL HEALTH CENTERHC (RBC) [Mass/Vol]32.0 g/dL28.4 - 34.8 g/dLBON REGENCY HOS[facility]ITAL CLEVELAND EASTV (RBC) [Entitic vol]89.3 fL82.6 - 102.9 fLDOMINION HOSPITAL Monocytes/100 WBC (Bld)8 %3 - 12 %[facility]INION HOSPITALMonocytes/100 WBC (Bld)0.82 %DOMINION HOSPITALMorphology Ki (Bld) [Interp]NormalBON SECOHIOHEALTHNeutrophils/100 WBC (Bld)36 %36 - 65 %[facility] HOSPITALNucleated RBC/100 WBC (Bld) [Ratio]0.0 %0.0 per 100 WBCBON ELYRIA MEMORIAL HOSPITALPlatelet mean volume (Bld) [Entitic vol]11.1 fL8.1 - 13.5 fLRETREAT DOCTORS' HOSPITAL HEALTHPlatelets (Bld) [#/Vol]222 10*3/uLBON ELYRIA MEMORIAL HOSPITALRBC (Bld) [#/Vol]3.46 10*6/uLLow3.95 - 5.11 m/[facility] Hospital PulaskiSegmented neutrophils/100 WBC (Bld)3.67 %BON [facility]IAL HOSPITALWBC other (Bld) [#/Vol] 10.2BON [facility]TY HOSPITALCB with Diffon 08-02-2023 Abs. Basophil0.00 k/uLNormal0.0-0.2[facility] HospitalComment on above: Performed By: #### REINALDO, CDP #### [address] [place] [address] Informix Developer: Chapin Lord.Imm.Granulocyte0.00 k/uLNormal0.00-0.30[facility] HospitalComment on above:Performed By: #### REINALDO, CDP #### [address] [place] [address] Informix Developer: Chapin Lord.Neutrophil (Seg)3.67 k/uLNormal1.50-8.10MerClermont County Hospital HospitalComment on above:Performed By: #### REINALDO, CDP #### [address] [place] [address] Informix Developer: Willy Henson MDBasophils/100 WBC (Bld)0 %Normal0-2[facility] HospitalComment on above:Performed By: #### BMP, CDP #### [address] [place], [place] [address] Informix Developer: Willy Henson MDEosinophils (Bld) [#/Vol]0.00 10*3/uLNormal 0.00-0.44[facility] HospitalComment on above:Performed By: #### REINALDO, CDP #### [address] [place] [address] Informix Developer: Willy Henson MDEosinophils/100 WBC (Bld)0 %Low1-4[facility] HospitalComment on above:Performed By: #### BMP, CDP #### [address] [place] [address] Informix Developer: Willy Henson MDImmature granulocytes/100 WBC (Bld)0 %Ezmzyi7Jckqm [facility] HospitalComment on above:Performed By: #### BMP, CDP #### [address] [place] [address] Informix Developer: Willy Henson MDLymphocytes (Bld) [#/Vol]5.71 10*3/uLHigh1.10-3.70 [facility] HospitalComment on above:Performed By: #### BMP, CDP #### [address] [place] [address] Informix Developer: Willy Henson MDLymphocytes/100 WBC (Bld)56 %Joyf56-91Fzidd [facility] HospitalComment on above:Performed By: #### BMP, CDP #### [address] [place] [address] Informix Developer: JOSE L Lordonocytes (Bld) [#/Vol]0.82 10*3/uLNormal0.10-1.20 [facility] HospitalComment on above:Performed By: #### BMP, CDP #### [address] [place] [address] Informix Developer: JOSE L Lordonocytes/100 WBC (Bld)8 %Normal3-12[facility] HospitalComment on above:Performed By: #### BMP, CDP #### [address] [place] [address] Informix Developer: Willy Sturtz, MDMorphology Ki (Bld) [Interp]NormalNormalC[facility] HospitalComment on above:Performed By: #### BMP, CDP #### [address] [place], [place] [address] Informix Developer: Willy Henson MDNeutrophil (Seg)36 %Yarlgk54-85Nhfxp [facility]in HospitalComment on above:Performed By: #### BMP, CDP #### [address] [place], [place] [address] Informix Developer: Willy Henson MDErythrocyte distribution width (RBC) [Ratio]12.2 % Ovstni78.8-14.4[facility] HospitalComment on above:Performed By: #### BMP, CDP #### [address] [place] [address] Informix Developer: Willy Henson MDHematocrit (Bld) [Volume fraction]30.9 %Low 36.3-47.1MOhioHealth Doctors Hospital HospitalComment on above:Performed By: #### REINALDO, CDP #### [address] [place], [place] [address] Informix Developer: Willy Henson MDHemoglobin (Bld) [Mass/Vol]9.9 g/dLLow11.9-15.1 [facility] HospitalComment on above:Performed By: #### REINALDO, CDP #### [address] [place], [place] [address] Informix Developer: JOSE L LordCH (RBC) [Entitic mass]28.6 zvXfmrzs03.2-33.5 [facility] HospitalComment on above:Performed By: #### BMP, CDP #### [address] [place], [place] [id number] Informix Developer: JOSE L LordCHC (RBC) [Mass/Vol]32.0 g/sPDydaog64.4-34.8[facility] HospitalComment on above:Performed By: #### BMP, CDP #### [facility] [address] [place] [address] [place] [address] Informix Developer: KELI Lord (RBC) [Entitic vol]89.3 hJHbtvad08.6-102.9 [facility] HospitalComment on above:Performed By: #### BMP, CDP #### [address] [place] [address] Informix Developer: BOOKER Lord Automated0.0 per 100 WBCNormal0.0[facility] HospitalComment on above:Performed By: #### REINALDO, CDP #### [address] [place] [address] Informix Developer: Deana Lord mean volume (Bld) [Entitic vol]11.1 fL Normal8.1-13.5[facility] HospitalComment on above:Performed By: #### REINALDO, CDP #### [address] [place] [address] Informix Developer: Charlene Lord (Bld) [#/Vol]222 10*3/bAJzmhof373-472 [facility] HospitalComment on above:Performed By: #### REINALDO, CDP #### [address] [place] [address] Informix Developer: KAYE Lord (Bld) [#/Vol]3.46 10*6/uLLow3.95-5.11[facility] HospitalComment on above:Performed By: #### REINALDO, CDP #### [address] [place] [address] Informix Developer: CHRISTOPH Lord (Bld) [#/Vol]10.2 10*3/uLNormal3.5-11.3MOhioHealth Doctors Hospital HospitalComment on above:Performed By: #### BMP, CDP #### [address] [place], [place] [address] Informix Developer: PATTIE Lordomp Metabolic Pr/rfx MGon 48-00-1690Ahdvfat [Mass/Vol]3.3 g/dLLow3.5-5.2[facility] HospitalComment on above:Performed By: #### BMP, CDP #### [address] [place] [address] Informix Developer: Willy Henson MDAlbumin/Glob Ratio1.6Pagnln7.0-2.5MerClermont County Hospital HospitalComment on above:Performed By: #### BMP, CDP #### [address] [place] [address] Informix Developer: Juan Miguel Lordline Zvnr944 U/SFdiqoq77-571Bilrx [facility] HospitalComment on above:Performed By: #### BMP, CDP #### [address] [place] [address] Informix Developer: Willy Henson MDALT [Catalytic activity/Vol]10 U/LNormal5-33[facility] HospitalComment on above:Performed By: #### BMP, CDP #### [address] [place] [address] Informix Developer: Letha Lord gap [Moles/Vol]8 mmol/LLow9-17[facility] HospitalComment on above:Performed By: #### BMP, CDP #### [address] [place], [place] [address]783 Informix Developer: Willy Henson MDAST [Catalytic activity/Vol]11 U/LNormal<32[facility] HospitalComment on above:Performed By: #### BMP, CDP #### [address] [place] [address] Informix Developer: Willy Henson MDBilirubin [Mass/Vol]0.3 mg/dLNormal0.3-1.2MOhioHealth Doctors Hospital HospitalComment on above:Performed By: #### BMP, CDP #### [address] [place] [address] Informix Developer: Willy Henson MDBUN/CRE Wpomc22Wwyf8-21SnsbrUc Medical Center Comment on above:Performed By: #### BMP, CDP #### [address] [place] [address] Informix Developer: PATTIE Lordalcium [Mass/Vol]8.8 mg/dLNormal8.6-10.4[facility] HospitalComment on above:Performed By: #### BMP, CDP #### [address] [place] [address] Informix Developer: PATTIE Lordhloride [Moles/Vol]107 mmol/JWtyjck26-464GsqkkUc Medical CenterComment on above:Performed By: #### BMP, CDP #### [address] [place] [address] Informix Developer: Willy Henson MDCO2 [Moles/Vol]24 mmol/HGutswa05-03Aalyc [facility]in HospitalComment on above:Performed By: #### BMP, CDP #### [address] [place] [address] Informix Developer: PATTIE Lordreatinine [Mass/Vol]0.7 mg/dLNormal0.5-0.9[facility] HospitalComment on above:Performed By: #### BMP, CDP #### [address] [place] [address] Informix Developer: Willy Henson MDGFR/1.73 sq M.predicted among non-blacks MDRD (S/P/Bld) [Vol rate/Area]87 mL/min/{1.73_m2}Normal>60[facility] Comment on above:Result Comment: These results are not intended for [...] or following therapy that affects renal tubular secretion.Performed By: #### BMP, CDP #### [address] [place] [address] Informix Developer: Willy Henson MDGlucose [Mass/Vol]105 mg/jYYfjp40-16IydmlMercy Health St. Rita's Medical CenterComment on above:Performed By: #### REINALDO, CDP #### [address] [place], [facility]83 Informix Developer: DESTINEE Lordotassium [Moles/Vol]4.2 mmol/LNormal3.7-5.3Mpaulding county hospitaly Windber HospitalComment on above:Performed By: #### REINALDO, CDP #### [address] [place], [place] [address]383 Informix Developer: Willy Henson MDProtein [Mass/Vol]5.4 g/dLLow6.4-8.3Mpaulding county hospitaly [facility]ber HospitalComment on above:Performed By: #### REINALDO, CDP #### [address] [place] [address] Informix Developer: Willy Henson MDSodium [Moles/Vol]139 mmol/NKlahxx454-832JeylkUc Medical CenterComment on above:Performed By: #### BMP, CDP #### [address] [place] [address] Informix Developer: Willy Henson MDUrea nitrogen [Mass/Vol]18 mg/dLNormal8-23[facility] on above:Performed By: #### BMP, CDP #### [facility] [address] [place] [address] Informix Developer: Willy Henson [facility] – OKLAHOMA CITYomprehensive Metabolic Panel w/ Reflex to MGon [id number] [Mass/Vol]3.3 g/dLLow3.5 - 5.2 g/dLB[facility] Albumin/Globulin [Mass ratio]1.6 {ratio}1.0 - 2.5B[facility] HOSPITALALP [Catalytic activity/Vol]102 U/L35 - 104 U/LBON [facility] HOSPITALALT [Catalytic activity/Vol]10 U/L5 - 33 U/LBON [facility] HOSPITALAnion gap [Moles/Vol]8 mmol/LLow9 - 17 mmol/LBON [facility] HOSPITALAST [Catalytic activity/Vol]11 U/LNINF - 32 U/LBON [facility] HOSPITALBilirubin [Mass/Vol]0.3 mg/dL0.3 - 1.2 mg/dLBON [facility]ORIAL HOSPITALCalcium [Mass/Vol]8.8 mg/dL8.6 - 10.4 mg/dLBON [facility]ORIAL HOSPITALChloride [Moles/Vol]107 mmol/L98 - 107 mmol/L [facility] HOSPITALCO2 [Moles/Vol]24 mmol/L20 - 31 mmol/LBON [facility] HOSPITALCreatinine [Mass/Vol]0.7 mg/dL0.5 - 0.9 mg/dLBON [facility] HOSPITALEst, Glom Filt Rate87- PINFBON ELYRIA MEMORIAL HOSPITALComhenry ford [facility] on above: These results are not intended [...] therapy that affects renal tubular secretion. Glucose [Mass/Vol]105 mg/rQXtwp22 - 99 mg/dLB[facility] Interpretation and review of laboratory resultsAbnormalDOMINION HOSPITAL Potassium [Moles/Vol]4.2 mmol/L3.7 - 5.3 mmol/LBON [facility] HEALTHProtein [Mass/Vol]5.4 g/dLLow6.4 - 8.3 g/dLBON [facility]YRIA MEMORIAL HOSPITALSodium [Moles/Vol]139 mmol/L135 - 144 mmol/LBON [facility] MEMORIAL HOSPITALUrea nitrogen [Mass/Vol]18 mg/dL8 - 23 mg/dLBON ELYRIA MEMORIAL HOSPITALUrea nitrogen/Creatinine [Mass ratio]26 mg/mg High9 - 20BON [facility] HOSPITALEKG Rhythm Stripon [id number] MENTAL HEALTH INSTITUTE AT FORT LOGANCBC auto differentialon [id number] (Bld) [#/Vol][facility]OSPITALBasophils/100 WBC (Bld)0 %0 - 2 %[facility] Eosinophils (Bld) [#/Vol][facility]ATIONOURS [facility] HOSPITALEosinophils/100 WBC (Bld)0 %Low 1 - 4 %[facility]OSPITALErythrocyte distribution width (RBC) [Ratio]11.9 %11.8 - 14.4 %[facility]ITALHematocrit (Bld) [Volume fraction]35.6 % Low36.3 - 47.1 %[facility]ITALHemoglobin (Bld) [Mass/Vol]11.5 g/dLLow 11.9 - 15.1 g/dLBON ELYRIA [facility]IAL HOSPITALImmature granulocytes (Bld) [#/Vol]0.04 10*3/uLBON ELYRIA [facility]ORIAL HOSPITALImmature granulocytes/100 WBC (Bld)0 %0B[facility]OSPITALInterpretation and review of laboratory resultsAbnormalRETREAT DOCTORS' HOSPITAL HEALTHLymphocytes/100 WBC (Bld)44 %High24 - 43 %[facility] HEALTHLymphocytes/100 WBC (Bld)5.25 %HighDOMINION HOSPITALMCH (RBC) [Entitic mass]29.0 pg25.2 - 33.5 pgRIVERSIDE BEHAVIORAL HEALTH CENTERHC (RBC) [Mass/Vol] 32.3 g/dL28.4 - 34.8 g/dLBON [facility]ASTV (RBC) [Entitic vol]89.7 fL 82.6 - 102.9 fLDOMINION HOSPITALMonocytes/100 WBC (Bld)1 %Low3 - 12 %[facility]ITALMonocytes/100 WBC (Bld)0.15 %[facility] Neutrophils/100 WBC (Bld)55 %36 - 65 %[facility]OSPITALNucleated RBC/100 WBC (Bld) [Ratio]0.0 %0.0 per 100 WBCDOMINION HOSPITALPlatelet mean volume (Bld) [Entitic vol]11.0 fL8.1 - 13.5 fLDOMINION HOSPITALPlatelets (Bld) [#/Vol]240 10*3/uLBON ELYRIA MEMORIAL HOSPITALRBC (Bld) [#/Vol]3.97 10*6/uL 3.95 - 5.11 m/uLDOMINION HOSPITALSegmented neutrophils/100 WBC (Bld)6.38 %[facility]OSPITALWBC other (Bld) [#/Vol]11.9HighPOPLAR SPRINGS HOSPITALCBC with Diffon [id number]. Basophil<0.03Normal 0.00-0.20MerBackus HospitalComment on above:Performed By: #### DIDI, CMPX #### [address] [place] [address] [employer]formix Developer: Chapin Lord. Eosinophil<0.31Ppkpnr0.00-0.44MerClermont County Hospital HospitalComment on above:Performed By: #### DIDI, CMPX #### [address] [place] [address] Informix Developer: Chapin Lord.Imm.Granulocyte0.04 k/uLNormal0.00-0.30MerBackus HospitalComment on above:Performed By: #### CDP, CMPX #### [address] [place], [place] [id number] Inform[employer] Developer: Chapin Lord.Neutrophil (Seg)6.38 k/uLNormal1.50-8.10[facility] HospitalComment on above:Performed By: #### CDP, CMPX #### [address] [place], [facility]83 Informix Developer: Willy Henson MDBasophils/100 WBC (Bld)0 %Normal0-2MOhioHealth Doctors Hospital HospitalComment on above:Performed By: #### CDP, CMPX #### [address] [place], [facility]83 Informix Developer: Willy Henson MDEosinophils/100 WBC (Bld)0 %Low1-4[facility] HospitalComment on above:Performed By: #### CDP, CMPX #### [address] [place], [facility]83 Informix Developer: Willy Henson MDErythrocyte distribution width (RBC) [Ratio]11.9 % Wrfiio41.8-14.4[facility] HospitalComment on above:Performed By: #### CDP, CMPX #### [address] [place], [facility]83 Informix Developer: Willy Henson MDHematocrit (Bld) [Volume fraction]35.6 %Low 36.3-47.1MOhioHealth Doctors Hospital HospitalComment on above:Performed By: #### CDP, CMPX #### [address] [place] [address] Informix Developer: Willy Henson MDHemoglobin (Bld) [Mass/Vol]11.5 g/dLLow11.9-15.1 [facility] HospitalComment on above:Performed By: #### CDP, CMPX #### [address] [place], [place] 1677183 Informix Developer: Faisal Lordture granulocytes/100 WBC (Bld)0 %Uesxsg9GcpawUc Medical CenterComment on above:Performed By: #### CDP, CMPX #### [address] [place], [place] 1008283 Informix Developer: Erick Lordmphocytes (Bld) [#/Vol]5.25 10*3/uLHigh1.10-3.70 [facility] HospitalComment on above:Performed By: #### CDP, CMPX #### [address] [place], [place] 3488383 Informix Developer: Erick Lordmphocytes/100 WBC (Bld)44 %Fgjt83-98Ihmjg [facility]iffin HospitalComment on above:Performed By: #### CDP, CMPX #### [address] [place], [place] 7[address]2783 Informix Developer: JOSE L LordCH (RBC) [Entitic mass]29.0 kbIjmuvk47.2-33.5 [facility] HospitalComment on above:Performed By: #### CDP, CMPX #### [address] [place], [place] [id number] Informix Developer: KIRBY LordC (RBC) [Mass/Vol]32.3 g/hDVvagym25.4-34.8Uc Medical CenterComment on above:Performed By: #### CDP, CMPX #### [address] [place] [address] Informix Developer: JOSE L LordCV (RBC) [Entitic vol]89.7 zSMdvdxw94.6-102.9 [facility] HospitalComment on above:Performed By: #### CDP, CMPX #### [address] [place] [address] Informix Developer: JOSE L Lordonocytes (Bld) [#/Vol]0.15 10*3/uLNormal0.10-1.20 [facility]c Medical CenterComment on above:Performed By: #### CDP, CMPX #### [address] [place] [address] Informix Developer: JOSE L Lordonocytes/100 WBC (Bld)1 %Low3-12Uc Medical CenterComment on above:Performed By: #### CDP, CMPX #### [address] [place] [address] Informix Developer: Willy Henson MDNeutrophil (Seg)55 %Fyngzm91-46Yelad [facility]in HospitalComment on above:Performed By: #### CDP, CMPX #### [address] [place] [address] Informix Developer: Willy Henson MDNRBC Automated0.0 per 100 WBCNormal0.0[facility] HospitalComment on above:Performed By: #### CDP, CMPX #### [address] [place], [place] 3373883 Informix Developer: Claudio Lordtegloria mean volume (Bld) [Entitic vol]11.0 fL Normal8.1-13.5Uc Medical CenterComment on above:Performed By: #### CDP, CMPX #### [address] [place], [place] 6656483 Informix Developer: DESTINEE Lordlatelets (Bld) [#/Vol]240 10*3/lVPmduzj591-926 [facility] HospitalComment on above:Performed By: #### CDP, CMPX #### [address] [place], [place] 1626983 Informix Developer: MALORIE LordBC ([facility]) [#/Vol]3.97 10*6/uLNormal3.95-5.11[facility] HospitalComment on above:Performed By: #### CDP, CMPX #### [address] [place] [address] Informix Developer: JOLENE Lord ([facility]) [#/Vol]11.9 10*3/uLHigh3.5-11.3Mpaulding county hospitaly Windber HospitalComment on above:Performed By: #### CDP, CMPX #### [address] [place], [place] [id number] Informix Developer: PATTIE Lordacadia healthcare Metabolic Pr/rfx MGon [id number] [Mass/Vol]3.5 g/dLNormal3.5-5.2MOhioHealth Doctors Hospital HospitalComment on above:Performed By: #### CDP, CMPX #### [address] [place], [place] 5442583 Informix Developer: Willy Henson MDAlbumin/Glob Ratio1.5Ofqtnp8.0-2.5Uc Medical CenterComment on above:Performed By: #### CDP, CMPX #### [address] [place], [place] 4326883 Informix Developer: Juan Miguel Lordline Zwal184 U/QSajn52-167UptrcUc Medical CenterComment on above:Performed By: #### CDP, CMPX #### [facility] [address] [place] [address] Dr. [place], [place] 5032883 Informix Developer: Willy Henson MDALT [Catalytic activity/Vol]11 U/LNormal5-33Uc Medical CenterComment on above:Performed By: #### CDP, CMPX #### [facility] [address] [place] [address] Dr. [place], [place] [phone] Informix Developer: Willy Henson MDAnion gap [Moles/Vol]11 mmol/LNormal9-17Uc Medical CenterComment on above:Performed By: #### CDP, CMPX #### [address] [place], [place] 3545783 Informix Developer: Willy Henson MDAST [Catalytic activity/Vol]15 U/LNormal<32MerClermont County Hospital HospitalComment on above:Performed By: #### CDP, CMPX #### [address] [place] [address] Informix Developer: Willy Henson MDBilirubin [Mass/Vol]0.3 mg/dLNormal0.3-1.2MercSaint Francis Hospital & Medical CenterComment on above:Performed By: #### CDP, CMPX #### [address] [place], [place] 0788283 Informix Developer: Willy Henson MDBUN/CRE Lqjfo85Qnhk7-46DokkvUc Medical Center Comment on above:Performed By: #### CDP, CMPX #### [address] [place], [place] 4080683 Informix Developer: Willy Henson MDCalcium [Mass/Vol]9.2 mg/dLNormal8.6-10.4MerBackus HospitalComment on above:Performed By: #### CDP, CMPX #### [facility] [address] [place] [address] [place] [address] Informix Developer: Willy Henson MDChloride [Moles/Vol]104 mmol/QBkmyvv38-518RvbdiUc Medical CenterComment on above:Performed By: #### CDP, CMPX #### [address] [place], [place] 6172383 Informix Developer: Willy Henson MDCO2 [Moles/Vol]23 mmol/ELlewkx12-92Jaojx [facility]in HospitalComment on above:Performed By: #### CDP, CMPX #### [address] [place] [address] Informix Developer: PATTIE Lordreatinine [Mass/Vol]0.6 mg/dLNormal0.5-0.9MerBackus HospitalComment on above:Performed By: #### CDP, CMPX #### [address] [place] [address] Informix Developer: Willy Henson MDGFR/1.73 sq M.predicted among non-blacks MDRD (S/P/Bld) [Vol rate/Area]mL/min/{1.73_m2}Normal>60Uc Medical CenterComment on above:Result Comment: These results are not intended for [...] or following therapy that affects renal tubular secretion.Performed By: #### DIDI, CMPX #### [address] [place] [address] Informix Developer: Willy Henson MDGlucose [Mass/Vol]142 mg/lPFwlv80-26Wkodc Bridgeport HospitalComment on above:Performed By: #### DIDI, CMPX #### [address] [place] [address] Informix Developer: DESTINEE Lordotassium [Moles/Vol]4.6 mmol/LNormal3.7-5.3Mercy Windber HospitalComment on above:Performed By: #### DIDI, CMPX #### [address] [place] [address] Informix Developer: Willy Henson MDProtein [Mass/Vol]6.2 g/dLLow6.4-8.3Mercy Windber HospitalComment on above:Performed By: #### CDP, CMPX #### [facility] [address] [place] [address] Informix Developer: FANY Lordodium [Moles/Vol]138 mmol/SIrhyzb338-676SincaUc Medical CenterComment on above:Performed By: #### CDP, CMPX #### [facility] [address] [place] [address] Informix Developer: Willy Henson MDUrea nitrogen [Mass/Vol]18 mg/dLNormal8-23Uc Medical CenterComment on above:Performed By: #### DIDI, CMPX #### [facility] [address] [place] [address] Informix Developer: PATTIE Lordomprehensive Metabolic Panel w/ Reflex to MGon [id number] [Mass/Vol]3.5 g/dL3.5 - 5.2 g/dLB[facility] Albumin/Globulin [Mass ratio]1.3 {ratio}1.0 - 2.5[facility] HEALTHALP [Catalytic activity/Vol]129 U/LHigh35 - 104 U/LBON [facility] HEALTHALT [Catalytic activity/Vol]11 U/L5 - 33 U/LBON [facility] HEALTHAnion gap [Moles/Vol]11 mmol/L9 - 17 mmol/LBON [facility] HEALTHAST [Catalytic activity/Vol]15 U/LNINF - 32 U/LB[facility] HEALTHBilirubin [Mass/Vol]0.3 mg/dL0.3 - 1.2 mg/dLB[facility] HEALTHCalcium [Mass/Vol]9.2 mg/dL8.6 - 10.4 mg/dLB[facility] HEALTHChloride [Moles/Vol]104 mmol/L98 - 107 mmol/L [facility] HEALTHCO2 [Moles/Vol]23 mmol/L20 - 31 mmol/LBON [facility] HEALTHCreatinine [Mass/Vol]0.6 mg/dL0.5 - 0.9 mg/dLB[facility]ORIAL HOSPITALEst, Glom Akilt Rate- PINFBON [facility] on above: These results are not intended [...] therapy that affects renal tubular secretion. Glucose [Mass/Vol]142 mg/aDOyrx72 - 99 mg/dLB[facility] Interpretation and review of laboratory resultsAbnormalDOMINION HOSPITAL Potassium [Moles/Vol]4.6 mmol/L3.7 - 5.3 mmol/LBON [facility] HEALTHProtein [Mass/Vol]6.2 g/dLLow6.4 - 8.3 g/dLBON ELYRIA MEMORIAL HOSPITALSodium [Moles/Vol]138 mmol/L135 - 144 mmol/LBON [facility]OR[facility] HOSPITALUrea nitrogen [Mass/Vol]18 mg/dL8 - 23 mg/dLBON ELYRIA MEMORIAL HOSPITALUrea nitrogen/Creatinine [Mass ratio]30 mg/mg High9 - 20BON [facility] SPECIALTY HOSPITALEKG Rhythm Stripon [id number] MENTAL HEALTH INSTITUTE AT FORT LOGANBasic Metabolic Panelon 24-88-8142Cmstk gap [Moles/Vol]11 mmol/L9 - 17 mmol/LBON [facility] HEALTHCalcium [Mass/Vol]9.6 mg/dL8.6 - 10.4 mg/dLB[facility] HEALTHChloride [Moles/Vol]101 mmol/L98 - 107 mmol/LBON [facility] HEALTHCO2 [Moles/Vol]26 mmol/L20 - 31 mmol/LBON [facility] HOSPITALCreatinine [Mass/Vol]0.7 mg/dL0.5 - 0.9 mg/dLBON [facility] MEMORIAL HOSPITALEst, Glom Filt Rate87- PINFBON [facility] MERCY HEALTHComment on above: These results are not intended [...] therapy that affects renal tubular secretion. Glucose [Mass/Vol]102 mg/fHZbgi83 - 99 mg/dLB[facility] Interpretation and review of laboratory resultsAbnormalDOMINION HOSPITAL Potassium [Moles/Vol]4.5 mmol/L3.7 - 5.3 mmol/LBON [facility] MEMORIAL HOSPITALSodium [Moles/Vol]138 mmol/L135 - 144 mmol/LBON [facility] MEMORIAL HOSPITALUrea nitrogen [Mass/Vol]24 mg/dLHigh8 - 23 mg/dLBON ELYRIA MEMORIAL HOSPITALUrea nitrogen/Creatinine [Mass ratio]34 mg/mgHigh9 - 20B[facility]TY HOSPITALBasic Metabolic Profon 25-63-5622Royxm gap [Moles/Vol]11 mmol/LNormal9-17Uc Medical CenterComment on above:Performed By: #### REINALDO, CDP #### [address] [place] [address] Informix Developer: Willy Henson MDBUN/CRE Vqsck74Saum3-13TnefjUc Medical Center Comment on above:Performed By: #### BMP, CDP #### [facility] [address] [place] [address] Dr. [place], [facility]83 Informix Developer: PATTIE Lordalcium [Mass/Vol]9.6 mg/dLNormal8.6-10.4Uc Medical CenterComment on above:Performed By: #### BMP, CDP #### [address] [place] [address] Informix Developer: PATTIE Lordhloride [Moles/Vol]101 mmol/HCjazfe03-619BvanoUc Medical CenterComment on above:Performed By: #### BMP, CDP #### [address] [place], [place] 605[address]83 Informix Developer: PATTIE LordO2 [Moles/Vol]26 mmol/ELiozxe24-45SkgfmUc Medical CenterComment on above:Performed By: #### BMP, CDP #### [address] [place] [address] Informix Developer: PATTIE Lordreatinine [Mass/Vol]0.7 mg/dLNormal0.5-0.9Uc Medical CenterComment on above:Performed By: #### BMP, CDP #### [address] [place] [address] Informix Developer: Willy Henson MDGFR/1.73 sq M.predicted among non-blacks MDRD (S/P/Bld) [Vol rate/Area]87 mL/min/{1.73_m2}Normal>60[facility] Comment on above:Result Comment: These results are not intended for [...] or following therapy that affects renal tubular secretion.Performed By: #### REINALDO, CDP #### [address] [place] [address] Informix Developer: Willy Henson MDGlucose [Mass/Vol]102 mg/hHPmxn56-07JmopfMercy Health St. Rita's Medical CenterComment on above:Performed By: #### BMP, CDP #### [address] [place] [address] Informix Developer: Willy Henson MDPotassium [Moles/Vol]4.5 mmol/LNormal3.7-5.3Mpaulding county hospitaly Windber HospitalComment on above:Performed By: #### BMP, CDP #### [facility] [address] [place] [address] Informix Developer: FANY Lordodium [Moles/Vol]138 mmol/MWohsml420-484CdkvaUc Medical CenterComment on above:Performed By: #### BMP, CDP #### [facility] [address] [place] [address] Informix Developer: Willy Henson MDUrea nitrogen [Mass/Vol]24 mg/dLHigh8-23Uc Medical CenterComment on above:Performed By: #### BMP, CDP #### [facility] [address] [place] [address] Informix Developer: Willy Henson MDCBC with Auto Differentialon [id number] (Bld) [#/Vol]0.00 10*3/uLBON [facility] HEALTH[facility]ARE CORPORATIONOURS MER[facility] L[facility]AIN HOSPITALBasophils/100 WBC (Bld)0 %0 - 2 %[facility]INION HOSPITALEosinophils (Bld) [#/Vol]0.00 10*3/uLBON SECOURS MER[facility] HEALTH LORAIN HOSPITALEosinophils/100 WBC (Bld)0 %Low1 - 4 %[facility]ENTERY Z[facility] CITY HOSPITALErythrocyte distribution width (RBC) [Ratio]12.1 %11.8 - 14.4 %[facility] Hematocrit (Bld) [Volume fraction]36.6 %36.3 - 47.1 %[facility] Hemoglobin (Bld) [Mass/Vol]11.7 g/dLLow11.9 - 15.1 g/dLBON SECOHIOHEALTH Immature granulocytes (Bld) [#/Vol]0.00 10*3/uLBON SECOU[facility]OSPITALY [facility] HOSPITALImmature granulocytes/100 WBC (Bld)0 %0BON [facility] HOSPITALY [facility] HOSPITALInterpretation and review of laboratory resultsAbnormalBON SECCAP[facility] CENTERY Z[facility]VIL[facility] CITY HOSPITALLymphocytes/100 WBC (Bld)49 %High24 - 43 %[facility]ERY [facility] HOSPITALLymphocytes/100 WBC (Bld)5.48 %HighBON SECOHIOHEALTHMCH (RBC) [Entitic mass]28.8 pg25.2 - 33.5 pgBON REGENCY HOSPITAL CLEVELAND EASTHC (RBC) [Mass/Vol]32.0 g/dL28.4 - 34.8 g/dLBON REGENCY HOSPITAL CLEVELAND EASTV (RBC) [Entitic vol]90.1 fL82.6 - 102.9 fLDOMINION HOSPITAL Monocytes/100 WBC (Bld)3 %3 - 12 %[facility] HOSPITALMonocytes/100 WBC (Bld)0.34 %[facility] HOSPITALMorphology Ki (Bld) [Interp]NormalBON ELYRIA MEMORIAL HOSPITALNeutrophils/100 WBC (Bld)48 %36 - 65 %[facility] HOSPITALNucleated RBC/100 WBC (Bld) [Ratio]0.0 %0.0 per 100 WBCBON ELYRIA MEMORIAL HOSPITALPlatelet mean volume (Bld) [Entitic vol]11.0 fL8.1 - 13.5 fLBON ELYRIA MEMORIAL HOSPITALPlatelets (Bld) [#/Vol]249 10*3/uLBON [facility]YRIA MEMORIAL HOSPITALRBC (Bld) [#/Vol]4.06 10*6/uL3.95 - 5.11 m/uLDOMINION HOSPITALSegmented neutrophils/100 WBC (Bld)5.38 %DOMINION HOSPITALWBC other (Bld) [#/Vol] 11.2B[facility] HOSPITALCBC with Diffon 07-31-2023 Abs. Basophil0.00 k/uLNormal0.0-0.2[facility] Bridgeport HospitalComment on above: Performed By: #### BMP, CDP #### [facility] [address] [place] [address] [place] [address] Informix Developer: Chapin Lord.Imm.Granulocyte0.00 k/uLNormal0.00-0.30MerBackus HospitalComment on above:Performed By: #### BMP, CDP #### [facility] [address] [place] [address] Informix Developer: Chapin Lord.Neutrophil (Seg)5.38 k/uLNormal1.50-8.10[facility] HospitalComment on above:Performed By: #### BMP, CDP #### [address] [place] [address] Informix Developer: Willy Henson MDBasophils/100 WBC (Bld)0 %Normal0-2MercCleveland Clinic Euclid Hospital HospitalComment on above:Performed By: #### BMP, CDP #### [address] [place] [address] Informix Developer: Willy Henson MDEosinophils (Bld) [#/Vol]0.00 10*3/uLNormal 0.00-0.44[facility] HospitalComment on above:Performed By: #### BMP, CDP #### [address] [place], [place] [address] Informix Developer: Willy Henson MDEosinophils/100 WBC (Bld)0 %Low1-4[facility] HospitalComment on above:Performed By: #### BMP, CDP #### [address] [place] [address] Informix Developer: Willy Henson MDImmature granulocytes/100 WBC (Bld)0 %Ajcvda8Ilbwl [facility] HospitalComment on above:Performed By: #### BMP, CDP #### [address] [place] [address] Informix Developer: Erick Lordmphocytes (Bld) [#/Vol]5.48 10*3/uLHigh1.10-3.70 [facility] HospitalComhenry ford [facility] on above:Performed By: #### BMP, CDP #### [address] [place], [place] 9527283 Informix Developer: Willy Sturtz, MDLymphocytes/100 WBC (Bld)49 %Evxy60-77Zbhog [facility] HospitalComment on above:Performed By: #### BMP, CDP #### [address] [place] [address] Informix Developer: JOSE L Lordonocytes (Bld) [#/Vol]0.34 10*3/uLNormal0.10-1.20 [facility] HospitalComment on above:Performed By: #### BMP, CDP #### [address] [place] [address] Informix Developer: JOSE L Lordonocytes/100 WBC (Bld)3 %Normal3-12[facility] HospitalComment on above:Performed By: #### BMP, CDP #### [address] [place], [facility]83 Informix Developer: JOSE L Lordorphology Ki (Bld) [Interp]NormalNormalC[facility] Clinic [facility] HospitalComment on above:Performed By: #### BMP, CDP #### [address] [place], [place] [address] Informix Developer: Willy Henson MDNeutrophil (Seg)48 %Thwgrd25-87Fprom [facility] HospitalComment on above:Performed By: #### BMP, CDP #### [address] [place], [facility]83 Informix Developer: Willy Henson MDErythrocyte distribution width (RBC) [Ratio]12.1 % Bjglul88.8-14.4[facility] HospitalComment on above:Performed By: #### BMP, CDP #### [address] [place], [place] 2358783 Informix Developer: Willy Henson MDHematocrit (Bld) [Volume fraction]36.6 %Normal 36.3-47.1[facility] Windber HospitalComment on above:Performed By: #### BMP, CDP #### [address] [place], [place] 6933783 Informix Developer: Willy Henson MDHemoglobin (Bld) [Mass/Vol]11.7 g/dLLow11.9-15.1 [facility] HospitalComment on above:Performed By: #### BMP, CDP #### [address] [place], [place] 58[address]83 Informix Developer: JOSE L LordCH (RBC) [Entitic mass]28.8 hjEboafc20.2-33.5 [facility] HospitalComment on above:Performed By: #### BMP, CDP #### [address] [place], [place] 9745883 Informix Developer: KIRBY LordC (RBC) [Mass/Vol]32.0 g/lYRiindy31.4-34.8Uc Medical CenterComment on above:Performed By: #### BMP, CDP #### [address] [place], [place] 6884183 Informix Developer: JOSE L LordCV (RBC) [Entitic vol]90.1 vPHanejz98.6-102.9 [facility] Medical CenterComment on above:Performed By: #### BMP, CDP #### [address] [place], [facility]83 Informix Developer: Willy Henson MDNRBC Automated0.0 per 100 WBCNormal0.0[facility] HospitalComment on above:Performed By: #### BMP, CDP #### [address] [place] [address] Informix Developer: DESTINEE Lordlatelet mean volume (Bld) [Entitic vol]11.0 fL Normal8.1-13.5[facility] HospitalComment on above:Performed By: #### BMP, CDP #### [address] [place], [place] 869[address]83 Informix Developer: Charlene Lord ([facility]) [#/Vol]249 10*3/mEOivnlo745-411 [facility] HospitalComment on above:Performed By: #### BMP, CDP #### [address] [place], [place] 4699783 Informix Developer: KAYE Lord (d) [#/Vol]4.06 10*6/uLNormal3.95-5.11[facility] HospitalComment on above:Performed By: #### REINALDO, CDP #### [address] [place], [place] 8082183 Informix Developer: CHRISTOPH Lord ([facility]) [#/Vol]11.2 10*3/uLNormal3.5-11.3MOhioHealth Doctors Hospital HospitalComment on above:Performed By: #### REINALDO, CDP #### [address] [place], [place] 9401883 Informix Developer: MARIE Lord ABDOMEN PELVIS W IV CONTRASTon [id number] ABDOMEN PELVIS W IV CONTRASTEXAMINATION: CT OF THE ABDOMEN AND PELVIS WITH [...] Signed by: Chato Bell MD 07/31/23 Final resultNormalMerBridgeport Hospital Abdomen and Pelvis W contrast David . Periumbilical rim enhancing collection measuring 3.7 x 3.6 x 4.0 cm with surrounding soft tissue swelling. 2. Septated uterus with probable fibroid. 3. Generalized body wall edema. 4. Left-sided colonic diverticulosis. PN RIS CONSOLIDATEDEXAMINATION: CT OF THE ABDOMEN AND PELVIS WITH [...] 4.0 cm with surrounding soft tissue swelling. [facility] Chato Stanton MD - 07/31/2023 EXAMINATION: CT OF THE [...] wall edema. 4. Left-sided colonic diverticulosis. [facility]OSPITALRadiology Study observation (narrative)[facility]INION HOSPITALCT Abdomen and Pelvis W contrast IVOrdered By: Chato Bell on [id number] Work Phone: cbc with Auto Differentialon [id number] (Bld) [#/Vol][facility]OSPITALBasophils/100 WBC (Bld)0 %0 - 2 %[facility] HOSPITALEosinophils (Bld) [#/Vol]0.06 10*3/uLDOMINION HOSPITAL Eosinophils/100 WBC (Bld)1 %1 - 4 %[facility] HOSPITALErythrocyte distribution width (RBC) [Ratio]12.5 %11.8 - 14.4 %[facility] Hematocrit (Bld) [Volume fraction]33.5 %Low36.3 - 47.1 %[facility] Hemoglobin (Bld) [Mass/Vol]10.7 g/dLLow11.9 - 15.1 g/dLB[facility] Immature granulocytes (Bld) [#/Vol]0.04 10*3/uLBON [facility]ORIAL HOSPITALImmature granulocytes/100 WBC (Bld)0 %0DOM[facility] HOSPITALInterpretation and review of laboratory resultsAbnormalDOMINION HOSPITALLymphocytes/100 WBC (Bld)40 %24 - 43 %[facility]OSPITALLymphocytes/100 WBC (Bld)4.64 %HighRIVERSIDE BEHAVIORAL HEALTH CENTERH (RBC) [Entitic mass]28.8 pg25.2 - 33.5 pgRIVERSIDE BEHAVIORAL HEALTH CENTERHC (RBC) [Mass/Vol]31.9 g/dL28.4 - 34.8 g/dLBON REGENC[facility]OS[facility]ITAL C[facility] EASTV (RBC) [Entitic vol]90.3 fL82.6 - 102.9 fLDOMINION HOSPITAL Monocytes/100 WBC (Bld)8 %3 - 12 %[facility]OSPITALMonocytes/100 WBC (Bld)0.88 %[facility] HOSPITALNeutrophils/100 WBC (Bld)52 %36 - 65 %[facility]OSPITALNucleated RBC/100 WBC (Bld) [Ratio]0.0 %0.0 per 100 WBCDOMINION HOSPITALPlatelet, Ptbapzvvbuth398PuhDVLDOMINION HOSPITAL Platelets (Bld) [#/Vol]See Reflexed IPF ResultDOMINION HOSPITALPlatelets reticulated/100 platelets Auto (Bld)4.3 %1.1 - 10.3 %[facility]OSPITALRBC (Bld) [#/Vol]3.71 10*6/uLLow3.95 - 5.11 m/uLDOMINION HOSPITALSegmented neutrophils/100 WBC (Bld)5.99 %[facility]OSPITALWBC other (Bld) [#/Vol] 11.6HighCJW MEDICAL CENTERCBC with Diffon [id number], Fluoresc.137 k/mDRap465-296Umbxv Windber HospitalComment on above:Performed By: #### ABEL, CDP #### [facility] [address] [place] [address] [place] [address] [employer] Developer: NAILA Lord, Immature Fract.4.3 %Normal1.1-10.3[facility] Bridgeport HospitalComment on above:Performed By: #### ABEL, CDP #### [address] [place], [place] [address] [employer] Developer: Chapin Lord. Basophil<0.29Filewa6.00-0.20MerClermont County Hospital HospitalComment on above:Performed By: #### CP, CDP #### [address] [place], [place] [address] [employer] Developer: MDAbs. PopImm.Granulocyte0.04 k/uLNormal0.00-0.30MerClermont County Hospital HospitalComment on above:Performed By: #### CP, CDP #### [address] [place] [address] [employer]form[employer] Developer: Chapin Lord.Neutrophil (Seg)5.99 k/uLNormal1.50-8.10MerClermont County Hospital HospitalComment on above:Performed By: #### CP, CDP #### [address] [place], [place] [address] [employer] Developer: Willy Henson MDBasophils/100 WBC (Bld)0 %Normal0-2[facility] Windber HospitalComment on above:Performed By: #### ABEL, CDP #### [address] [place] [address] Informix Developer: Willy Henson MDEosinophils (Bld) [#/Vol]0.06 10*3/uLNormal 0.00-0.44MerClermont County Hospital HospitalComment on above:Performed By: #### CP, CDP #### [address] [place], [place] [address] [employer]formix Developer: Willy Henson MDEosinophils/100 WBC (Bld)1 %Normal1-4MerClermont County Hospital HospitalComment on above:Performed By: #### CP, CDP #### [address] [place], [facility]83 Informix Developer: Willy Henson MDErythrocyte distribution width (RBC) [Ratio]12.5 % Uwgmcq59.8-14.4Uc Medical CenterComment on above:Performed By: #### CP, CDP #### [address] [place], [place] [address] Informix Developer: Willy Henson MDHematocrit (Bld) [Volume fraction]33.5 %Low 36.3-47.1MMercy Health St. Rita's Medical CenterComment on above:Performed By: #### CP, CDP #### [address] [place], [place] [address] Informix Developer: Willy Henson MDHemoglobin (Bld) [Mass/Vol]10.7 g/dLLow11.9-15.1 [facility] Medical CenterComment on above:Performed By: #### CP, CDP #### [address] [place], [place] [address] Informix Developer: Manisha Lordmature granulocytes/100 WBC (Bld)0 %Grqevx4VsxnxUc Medical CenterComment on above:Performed By: #### CP, CDP #### [address] [place], [facility]83 Informix Developer: Willy Henson MDLymphocytes (Bld) [#/Vol]4.64 10*3/uLHigh1.10-3.70 [facility] CenterComhenry ford [facility] on above:Performed By: #### CP, CDP #### [address] [place], [facility]83 Informix Developer: Willy Henson MDLymphocytes/100 WBC (Bld)40 %Kxnqyl52-59PduvnUc Medical CenterComment on above:Performed By: #### CP, CDP #### [address] [place] [address] Informix Developer: JOSE L LordCH (RBC) [Entitic mass]28.8 kcNjkreg18.2-33.5 [facility] Medical CenterComment on above:Performed By: #### CP, CDP #### [address] [place] [address] Informix Developer: JOSE L LordCHC (RBC) [Mass/Vol]31.9 g/rVCkblqf58.4-34.8[facility] HospitalComment on above:Performed By: #### CP, CDP #### [address] [place] [address] Informix Developer: JOSE L LordCV (RBC) [Entitic vol]90.3 vTGbzdyx95.6-102.9 [facility] Medical CenterComment on above:Performed By: #### CP, CDP #### [address] [place], [place] 7[address]183 Informix Developer: JOSE L Lordonocytes (Bld) [#/Vol]0.88 10*3/uLNormal0.10-1.20 [facility] Medical CenterComment on above:Performed By: #### CP, CDP #### [address] [place] [address] Informix Developer: JOSE L Lordonocytes/100 WBC (Bld)8 %Normal3-12Uc Medical CenterComment on above:Performed By: #### CP, CDP #### [address] [place] [address] Informix Developer: Willy Henson MDNeutrophil (Seg)52 %Qbvoqt60-30[facility]iff[facility] HospitalComment on above:Performed By: #### CP, CDP #### [address] [place], [place] 6809883 Informix Developer: Willy Henson MDNRBC Automated0.0 per 100 WBCNormal0.0[facility] HospitalComment on above:Performed By: #### CP, CDP #### [facility] [address] [place] [address] [place] [address] Informix Developer: Deana Lord CountSee Reflexed IPF RnsrayKowsgt167-921 [facility] HospitalComment on above:Performed By: #### CP, CDP #### [address] [place], [place] [id number] Informix Developer: KAYE Lord ([facility]) [#/Vol]3.71 10*6/uLLow3.95-5.11[facility] HospitalComment on above:Performed By: #### CP, CDP #### [address] [place] [address] Informix Developer: CHRISTOPH Lord ([facility]) [#/Vol]11.6 10*3/uLHigh3.5-11.3[facility] HospitalComment on above:Performed By: #### CP, CDP #### [address] [place] [address] Informix Developer: PATTIE Lordomp Metabolic Profon 54-64-3124Ncqgbjf [Mass/Vol] 3.5 g/dLNormal3.5-5.2[facility] HospitalComment on above:Performed By: #### CP, CDP #### [address] [place] [address] Informix Developer: Willy Henson MDAlbumin/Glob Ratio1.9Rtbgzn0.0-2.5[facility] HospitalComment on above:Performed By: #### CP, CDP #### [address] [place], [place] 4610383 Informix Developer: Shelli Lordkaline Phos85 U/LSrjlbn80-122DpedzUc Medical CenterComment on above:Performed By: #### CP, CDP #### [address] [place] [address] Informix Developer: Willy Henson MDALT [Catalytic activity/Vol]17 U/LNormal5-33Uc Medical CenterComment on above:Performed By: #### CP, CDP #### [address] [place] [address] Informix Developer: Willy Henson MDAnion gap [Moles/Vol]6 mmol/LLow9-17MerClermont County Hospital HospitalComment on above:Performed By: #### CP, CDP #### [address] [place] [address] Informix Developer: Willy Henson MDAST [Catalytic activity/Vol]16 U/LNormal<32MerClermont County Hospital HospitalComment on above:Performed By: #### CP, CDP #### [address] [place] [address] Informix Developer: Willy Henson MDBilirubin [Mass/Vol]0.5 mg/dLNormal0.3-1.2[facility] HospitalComment on above:Performed By: #### CP, CDP #### [address] [place] [address] Informix Developer: Willy Henson MDBUN/CRE Gjvef50Buouzr3-18[facility] Comment on above:Performed By: #### CP, CDP #### [address] [place] [address] Informix Developer: PATTIE Lordalcium [Mass/Vol]8.6 mg/dLNormal8.6-10.4Uc Medical CenterComment on above:Performed By: #### CP, CDP #### [address] [place] [address] Informix Developer: PATTIE Lordhloride [Moles/Vol]108 mmol/DNfar29-674JfpzzUc Medical CenterComment on above:Performed By: #### CP, CDP #### [address] [place], [place] [id number] [employer]formix Developer: PATTIE LordO2 [Moles/Vol]24 mmol/RLohcik27-21RcdhpUc Medical CenterComment on above:Performed By: #### CP, CDP #### [address] [place], [place] [address]83 Informix Developer: PATTIE Lordreatinine [Mass/Vol]0.6 mg/dLNormal0.5-0.9Uc Medical CenterComment on above:Performed By: #### CP, CDP #### [address] [place] [address] Informix Developer: Willy Henson MDGFR/1.73 sq M.predicted among non-blacks MDRD (S/P/Bld) [Vol rate/Area]mL/min/{1.73_m2}Normal>60Uc Medical CenterComment on above:Result Comment: These results are not intended for [...] or following therapy that affects renal tubular secretion.Performed By: #### ABEL, CDP #### [address] [place] [address] Informix Developer: Willy Henson MDGlucose [Mass/Vol]135 mg/pMXkvm77-72WmqpjMercy Health St. Rita's Medical CenterComment on above:Performed By: #### ABEL, CDP #### [address] [place], [place] 1891083 [employer]formix Developer: DESTINEE Lordotassium [Moles/Vol]4.4 mmol/LNormal3.7-5.3[facility] HospitalComment on above:Performed By: #### CP, CDP #### [facility] [address] [place] [address] Informix Developer: Willy Henson MDProtein [Mass/Vol]5.4 g/dLLow6.4-8.3MOhioHealth Doctors Hospital HospitalComment on above:Performed By: #### CP, CDP #### [facility] [address] [place], [place] [id number] Informix Developer: FANY Lordodium [Moles/Vol]138 mmol/EHvbvxu784-043BnsmsUc Medical CenterComment on above:Performed By: #### CP, CDP #### [address] [place], [place] [address]60983 Informix Developer: Willy Henson MDUrea nitrogen [Mass/Vol]11 mg/dLNormal8-23Uc Medical CenterComment on above:Performed By: #### CP, CDP #### [address] [place] [address] Informix Developer: PATTIE Lordomprehensive Metabolic Panelon 32-06-8002Dxnktmz [Mass/Vol]3.5 g/dL3.5 - 5.2 g/dLBON ELYRIA MEMORIAL HOSPITALAlbumin/Globulin [Mass ratio]1.8 {ratio}1.0 - 2.5BON ELYRIA MEMORIAL HOSPITALALP [Catalytic activity/Vol]85 U/L35 - 104 U/LBON ELYRIA MEMORIAL HOSPITALALT [Catalytic activity/Vol]17 U/L5 - 33 U/LBON [facility]YRIA MEMORIAL HOSPITALAnion gap [Moles/Vol]6 mmol/LLow9 - 17 mmol/LBON ELYRIA MEMORIAL HOSPITALAST [Catalytic activity/Vol]16 U/LNINF - 32 U/LBON ELYRIA MEMORIAL HOSPITALBilirubin [Mass/Vol]0.5 mg/dL0.3 - 1.2 mg/dLBON ELY[facility]ITAL Calcium [Mass/Vol]8.6 mg/dL8.6 - 10.4 mg/dLBON ELYRIA MEMORIAL HOSPITALChloride [Moles/Vol]108 mmol/LHigh98 - 107 mmol/LBON ELYRIA MEMORIAL HOSPITALCO2 [Moles/Vol] 24 mmol/L20 - 31 mmol/LBON ELYRIA MEMORIAL HOSPITALCreatinine [Mass/Vol]0.6 mg/dL0.5 - 0.9 mg/dLBON ELYRIA MEMORIAL HOSPITALEst, Glom Filt Rate- PINFBON ELYRIA MEMORIAL HOSPITALComment on above: These results are not intended [...] therapy that affects renal tubular secretion. Glucose [Mass/Vol]135 mg/xUEgzy56 - 99 mg/dLBON ELY[facility]ORIAL [facility]OSPITAL Interpretation and review of laboratory resultsAbnormalDOMINION HOSPITAL Potassium [Moles/Vol]4.4 mmol/L3.7 - 5.3 mmol/LBON ELYRIA MEMORIAL HOSPITALProtein [Mass/Vol]5.4 g/dLLow6.4 - 8.3 g/dLBON ELYRIA MEMORIAL HOSPITALSodium [Moles/Vol]138 mmol/L135 - 144 mmol/LBON ELYRIA MEMORIAL HOSPITALUrea nitrogen [Mass/Vol]11 mg/dL8 - 23 mg/dLBON ELYRIA MEMORIAL HOSPITALUrea nitrogen/Creatinine [Mass ratio]18 mg/mg 9 - 20BON [facility] HOSPITALSurgical Pathology Report on [id number] Pathology Report(NOTE) Path Number: [id number] -- Diagnosis -- UMBILICAL TISSUE/HERNIA, REPAIR:-FIBROMEMBRANEOUS 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 Yamilka Avendaño Electronically Signed Out ag/07/19/2023 Clinical Information Pre-Op Diagnosis: WOUND DEHISCENCE Operative Findings: UMBILICAL TISSUE Operation Performed: HERNIA UMBILICAL REPAIR REVISION UMBILICAL INCISION, KRISHNAMURTHY HERNIA REPAIR WITH TRANSVERSE COLON ANASTOMOSIS mj Source of Specimen A: UMBILICAL TISSUE Gross Description MICHEAL BRICE, UMBILICAL TISSUE Received in formalin are multiple yellow, lobulated to castillo-pink, fibromembranous tissue fragments aggregating 3.6 x 3.5 x 2.5 cm. No lesions are identified. Fluorescent Lamp Replacer sections 1c. tm Nimco Villalobos/mj:07/18/2023 Microscopic Description Microscopic examination performed. Processing Lab: [address] [address] Interpretation Performed at [address] [phone] SURGICAL PATHOLOGY CONSULTATION Patient Name: MICHEAL BRICE [facility] Rec: [id number] [facility] [email or web address] [facility] ANATOMIC PATHOLOGY [address] [facility] [place], [place] [address] NoSelect Medical OhioHealth Rehabilitation HospitalBasi Metabolic Profon 06-22-2023 Anion gap [Moles/Vol]8 mmol/LLow9-17[facility] HospitalComment on above: Performed By: #### CDP, BMP ####[facility] [address] [place] [address] Lab Director: Willy Henson MDBUN/CRE Ratio27 High9-20[facility] HospitalComment on above:Performed By: #### DIDI, BMP ####[facility] [address] [place] [phone] Director: PATTIE Lordalcium [Mass/Vol]9.0 mg/dLNormal8.6-10.4[facility] HospitalComment on above:Performed By: #### CDP, BMP ####[facility] Ppb[address] [place] [address] Lab Director: PATTIE Lordhloride [Moles/Vol]108 mmol/OUlsy12-802WjhfaClinton Memorial Hospital Comment on above:Performed By: #### DIDI, BMP ####[facility] Bnx[address] [place] [address] Lab Director: Willy Henson MD CO2 [Moles/Vol]26 mmol/JTndjbu16-56XjiinClinton Memorial HospitalComment on above: Performed By: #### DIDI, BMP ####[facility] [address] [place] [address] Lab Director: PATTIE Lordreatinine [Mass/Vol]0.7 mg/dLNormal0.5-0.9[facility] HospitalComment on above:Performed By: #### DIDI, BMP ####[facility] Vlc[address] [place] [address] Lab Director: Willy Henson MDGFR/1.73 sq M.predicted among non-blacks MDRD (S/P/Bld) [Vol rate/Area]87 mL/min/{1.73_m2} Normal>60[facility] HospitalComment on above:Result Comment: These results are not intended for [...] or following therapy that affects renal tubular secretion.Performed By: #### DIDI, BMP ####[facility] Afl[address] [place] [phone] Director: Willy Henson MDGlucose [Mass/Vol]101 mg/mHYvpz28-42Fzoxi [facility] State HospitalComment on above:Performed By: #### DIDI, BMP ####[facility] Qao[address]25 [place] [address] Lab Director: DESTINEE Lodrotassium [Moles/Vol]4.1 mmol/LNormal3.7-5.3MCleveland Clinic Akron GeneralComment on above:Performed By: #### DIDI, BMP ####[facility] Mcj[address] [place] [address] Lab Director: FANY Lordodium [Moles/Vol]142 mmol/GOqbdkx395-281ThmgqClinton Memorial HospitalComment on above:Performed By: #### CDP, BMP ####[facility] [address] [place], [place] [phone] Director: Willy Henson MDUrea nitrogen [Mass/Vol]19 mg/dLNormal8-23[facility] HospitalComment on above: Performed By: #### CDP, BMP ####[facility] Lcg[address] [place] [address] Lab Director: PATTIE Lord with Diffon 95-80-7077Ioc. Basophil0.00 k/uLNormal0.00-0.20MerUpstate University HospitalComment on above:Performed By: #### DIDI, BMP ####[facility] Vvo[address] [place] [address] Lab Director: Willy Henson MD Abs.Imm.Granulocyte0.00 k/uLNormal0.00-0.30[facility] HospitalComment on above:Performed By: #### CDP, BMP ####[facility] [address] [facility] [place] [address] Lab Director: Willy Henson MD Abs.Neutrophil (Seg)6.72 k/uLNormal2.5-7.0[facility] HospitalComment on above:Performed By: #### CDP, BMP ####[facility] Ixo[address] [place] [address] Lab Director: Willy Henson MD Basophils/100 WBC (Bld)0 %Normal0-2MCleveland Clinic Akron GeneralComment on above: Performed By: #### CDP, BMP ####[facility] Hrx[address] [place] [address] Lab Director: Willy Henson MDEosinophils (Bld) [#/Vol]0.14 10*3/uLNormal0.00-0.40[facility] HospitalComment on above: Performed By: #### CDP, BMP ####[facility] [address] [place] [address] Lab Director: Willy Henson MDEosinophils/100 WBC (Bld)1 %Normal0-5[facility] HospitalComment on above:Performed By: #### CDP, BMP ####[facility] Zpv7640 [facility] Hospitalharleen [place] [address] Lab Director: Willy Henson MDImmature granulocytes/100 WBC (Bld)0 %Normal0-5[facility] HospitalComment on above:Performed By: #### CDP, BMP ####[facility] Obz[address] [place] [phone] Director: Erick Lordmphocytes (Bld) [#/Vol]6.16 10*3/uL High1.00-4.80MerCleveland Clinic Akron General HospitalComment on above:Performed By: #### CDP, BMP ####[facility] Uzi[address] [place] [phone] Director: Erick Lordmphocytes/100 WBC (Bld)44 %Jtqg98-51NhlceClinton Memorial HospitalComment on above:Performed By: #### CDP, BMP ####[facility] Itk[address] [place] [address] Lab Director: JOSE L Lordonocytes (Bld) [#/Vol]0.98 10*3/uLNormal0.00-1.00[facility] HospitalComment on above:Performed By: #### CDP, BMP ####[facility] Uzz[address] [place] [address] Lab Director: JOSE L Lordonocytes/100 WBC (Bld)7 %Normal4-8[facility] HospitalComment on above:Performed By: #### CDP, BMP ####[facility] Ewj[address] [place] [address] Lab Director: JOSE L Lordorphology Ki (Bld) [Interp]Scanned to verify automated differential.NormalClinton Memorial HospitalComment on above:Performed By: #### CDP, BMP ####[facility] Skl[address] [facility], [place] [phone] Director: Willy Henson MDNeutrophil (Seg)48 %Ibgveb92-23KlydcClinton Memorial HospitalComment on above: Performed By: #### CDP, BMP ####[facility] Axx[address] [place] [address] Lab Director: Willy Henson MDErythrocyte distribution width (RBC) [Ratio]13.0 %Ewvqii62.1-15.2[facility] Comment on above:Performed By: #### DIDI, BMP ####[facility] Quj[address] [place] [address] Lab Director: Willy Henson MD Hematocrit (Bld) [Volume fraction]31.3 %Low36.0-46.0[facility] Comment on above:Performed By: #### CDP, BMP ####[facility] Lpr[address] [place], [place] [phone] Director: Willy Henson MD Hemoglobin (Bld) [Mass/Vol]10.2 g/dLLow12.0-16.0[facility] HospitalComment on above:Performed By: #### CDP, BMP ####[facility] Bqw[address] [place] [address] Lab Director: JOSE L LordCH (RBC) [Entitic mass]29.5 plOvhrqq55.0-34.0[facility] HospitalComment on above:Performed By: #### CDP, BMP ####[facility] [address] [place] [address] Lab Director: JOSE L LordCHC (RBC) [Mass/Vol]32.6 g/lGNibcmh61.0-37.0[facility] HospitalComment on above: Performed By: #### CDP, BMP ####[facility] [address] [place], [place] [phone] Director: JOSE L LordCV (RBC) [Entitic vol]90.5 aQDqakzk10.0-100.0[facility] HospitalComment on above:Performed By: #### CDP, BMP ####[facility] Gfu[address] [facility] [place] [address] Lab Director: Deana Lord mean volume (Bld) [Entitic vol]11.1 fLNormal6.0-12.0[facility] HospitalComment on above: Performed By: #### CDP, BMP ####[facility] [address] [place], [place] [phone] Director: Claudio Lordtedaniela (Bld) [#/Vol]139 10*3/jUCju085-176Vmtqx [facility]ard HospitalComment on above:Performed By: #### CDP, BMP ####[facility] [address] [place], [place] [phone] Director: MALORIE LordBC (Bld) [#/Vol]3.46 10*6/uL Low4.00-5.20[facility] HospitalComment on above:Performed By: #### CDP, BMP ####[facility] [address] [place] [phone] Director: CHRISTOPH Lord (Bld) [#/Vol]14.0 10*3/uLHigh3.5-11.0[facility] HospitalComment on above:Performed By: #### CDP, BMP ####[facility] [address] [place] [address] Lab Director: Dharmesh Lord Metab w/rfx MGon 25-47-1773Gmjer gap [Moles/Vol]8 mmol/L Low9-17[facility] HospitalComment on above:Performed By: #### LIVP, BMPX, CDP #### [facility] [address] [place] [address] [employer]form[employer] Developer: GAY Lord/CRE Itvta30Emwa8-35DnavxClinton Memorial Hospital Comment on above:Performed By: #### LIVP, BMPX, CDP #### [facility] Lab [address] [place] [address] Informix Developer: PATTIE Lordalcium [Mass/Vol]9.0 mg/dLNormal8.6-10.4[facility] HospitalComment on above:Performed By: #### LIVP, BMPX, CDP #### [facility] Lab [address] [place] [address] [employer]formix Developer: PATTIE Lordhloride [Moles/Vol]105 mmol/OPjmxoe52-864RnqmcClinton Memorial HospitalComment on above:Performed By: #### LIVP, BMPX, CDP #### [facility] Lab [address] [place] [address] Informix Developer: PATTIE LordO2 [Moles/Vol]24 mmol/DCtdwud56-42IevbmClinton Memorial HospitalComment on above:Performed By: #### LIVP, BMPX, CDP #### [facility] Lab [address] [place] [address] Informix Developer: Willy Sturtz, MDCreatinine [Mass/Vol]0.6 mg/dLNormal0.5-0.9[facility] HospitalComment on above:Performed By: #### LIVJacqueline BMPX, CDP #### [facility] Lab [address] [place] [address] Informix Developer: Willy Henson MDGFR/1.73 sq M.predicted among non-blacks MDRD (S/P/Bld) [Vol rate/Area]mL/min/{1.73_m2}Normal>60[facility] HospitalComment on above:Result Comment: These results are not intended for [...] or following therapy that affects renal tubular secretion.Performed By: #### LIVJacqueline BMPX, CDP #### [facility] Lab [address] [place] [address] Informix Developer: Willy Henson MDGlucose [Mass/Vol]152 mg/eHYiso08-66FfpwbCleveland Clinic Akron GeneralComment on above:Performed By: #### LIVJacqueline BMPX, CDP #### [facility] Lab [address] [place] [address] Informix Developer: DESTINEE Lordotassium [Moles/Vol]4.2 mmol/LNormal3.7-5.3MCleveland Clinic Akron GeneralComment on above:Performed By: #### LIVP, BMPX, CDP #### [facility] Lab [address] [place] [phone] Informix Developer: FANY Lordodium [Moles/Vol]137 mmol/ORjsbsp330-697IyvupClinton Memorial HospitalComment on above:Performed By: #### LIVP, BMPX, CDP #### [facility] Lab [address] [place] [address] Informix Developer: Willy Henson MDUrea nitrogen [Mass/Vol]16 mg/dLNormal8-23[facility] HospitalComment on above:Performed By: #### LIVP, BMPX, CDP #### [facility] Lab [address] [place] [address] Informix Developer: PATTIE Lord with Diffon [id number]. BasophilNormal 0.0-0.2MC[facility] Clinic Akron GeneralComment on above:Performed By: #### LIVP, BMPX, CDP #### [facility] Lab [address] [place] [address] Informix Developer: Chapin Lord. EosinophilNormal0.0-0.4[facility] Comment on above:Performed By: #### LIVP, BMPX, CDP #### [facility] Lab [address] [place] [address] Informix Developer: Chapin Lord.Imm.GranulocyteNormal0.00-0.30[facility] HospitalComment on above:Performed By: #### LIVP, BMPX, CDP #### [facility] Lab [address] [place] [address] Informix Developer: Chapin Lrod.Neutrophil (Seg)14.01 k/uLHigh2.5-7.0[facility] HospitalComment on above:Performed By: #### LIVP, BMPX, CDP #### [facility] Lab [address] [place] [phone] Informix Developer: Willy Henson MDBasophilNormal0-2MC[facility] Clinic Akron GeneralComment on above:Performed By: #### LIVP, BMPX, CDP #### [facility] Lab [address] [place] [address] Informix Developer: ADOLFO LordosinophilNormal0-5[facility] HospitalComment on above:Performed By: #### LIVP, BMPX, CDP #### [facility] Lab [address] [place] [address] Informix Developer: Janny Lord NjtxreretwxFrtyeh1[address] Comment on above:Performed By: #### LIVP, BMPX, CDP #### [facility] Lab [address] [place] [phone] Informix Developer: Willy Henson MDLymphocytes (Bld) [#/Vol]5.48 10*3/uLHigh1.0-4.8 [facility] Hospitalment on above:Performed By: #### LIVP, BMPX, CDP #### [facility] Lab [address] [place] [address] Informix Developer: Erick Lordmphocytes/100 WBC (Bld)27 %Qjwsng94-79JidhiClinton Memorial HospitalComment on above:Performed By: #### LIVP, BMPX, CDP #### [facility] Lab [address] [place] [address] Informix Developer: JOSE L Lordonocytes (Bld) [#/Vol]0.81 10*3/uLNormal0.0-1.[address] [facility] on above:Performed By: #### LIVP, BMPX, CDP #### [facility] Lab [address] [place], [place] [id number] Informix Developer: JOSE L Lordonocytes/100 WBC (Bld)4 %Normal4-8[facility] on above:Performed By: #### LIVP, BMPX, CDP #### [facility] Lab [address] [place], [place] [id number] Informix Developer: JOSE L Lordorphology Ki (Bld) [Interp]Manual Differential PerformedNormalMercy Kevin HospitalComment on above:Performed By: #### LIVP, BMPX, CDP #### [facility] Lab [address] [place] [address] Informix Developer: Willy Henson MDNeutrophil (Seg)69 %Wjvmar65-95YlwckClinton Memorial HospitalComment on above:Performed By: #### LIVP, BMPX, CDP #### [facility] Lab [address] [place] [address] Informix Developer: Willy Henson MDErythrocyte distribution width (RBC) [Ratio]12.7 % Puecvf47.1-15.2MC[facility] Clinic Akron GeneralComment on above:Performed By: #### LIVP, BMPX, CDP #### [facility] Lab [address] [place] [address] Informix Developer: Willy Henson MDHematocrit (Bld) [Volume fraction]34.7 %Low 36.0-46.0[facility] HospitalComment on above:Performed By: #### LIVP, BMPX, CDP #### [facility] Lab [address] [place] [address] Informix Developer: Willy Henson MDHemoglobin (Bld) [Mass/Vol]11.4 g/dLLow12.0-16.0 [facility]ment on above:Performed By: #### LIVP, BMPX, CDP #### [facility] Lab [address] [place] [id number] Informix Developer: JOSE L LordCH (RBC) [Entitic mass]29.5 drLpzjfk85.0-34.0 [facility] HospitalComment on above:Performed By: #### LIVP, BMPX, CDP #### [facility] Lab [address] [place] [id number] Informix Developer: JOSE L LordCHC (RBC) [Mass/Vol]32.9 g/tLWnbweh81.0-37.0[facility] HospitalComment on above:Performed By: #### LIVP, BMPX, CDP #### [facility] Lab [address] [place] [address] Informix Developer: KELI Lord (RBC) [Entitic vol]89.7 fKJisafn74.0-100.0 [facility] HospitalComment on above:Performed By: #### LIVP, BMPX, CDP #### [facility] Lab [address] [place] [address] Informix Developer: Deana Lord mean volume (Bld) [Entitic vol]11.2 fL Normal6.0-12.0[facility] HospitalComment on above:Performed By: #### LIVP, BMPX, CDP #### [facility] Lab [address] [place] [address] Informix Developer: Charlene Lord (Bld) [#/Vol]146 10*3/xUGupers623-384 [facility] HospitalComment on above:Performed By: #### LIVP, BMPX, CDP #### [facility] Lab [address] [place] [address] Informix Developer: KAYE Lord (Bld) [#/Vol]3.87 10*6/uLLow4.00-5.20[facility] HospitalComment on above:Performed By: #### LIVP, BMPX, CDP #### [facility] Lab [address] [place], [place] [id number] Informix Developer: CHRISTOPH Lord (Bld) [#/Vol]20.3 10*3/uLCritically high 3.5-11.0[facility] HospitalComment on above:Performed By: #### LIVP, BMPX, CDP #### [facility] Lab [address] [place] [address] [employer]formix Developer: Willy Henson MDLiver Profileon [id number] [Mass/Vol]3.6 g/dLNormal3.5-5.2MC[facility] Clinic [facility]ron GeneralComment on above:Performed By: #### LIVP, BMPX, CDP #### [facility] Lab [address] [place] [address] Informix Developer: Neptali Lord Phos91 U/YJelahh59-626FgtjdClinton Memorial HospitalComment on above:Performed By: #### LIVP, BMPX, CDP #### [facility] Lab [address] [place] [address] Informix Developer: Willy Henson MDALT [Catalytic activity/Vol]55 U/LHigh5-33[facility] HospitalComment on above:Performed By: #### LIVP, BMPX, CDP #### [facility] Lab [address] [place] [phone] Informix Developer: Willy Henson MDAST [Catalytic activity/Vol]53 U/LHigh<32[facility] HospitalComhenry ford [facility] on above:Performed By: #### LIVP, BMPX, CDP #### [facility] Lab [address] [place] [address] Informix Developer: Willy Henson MDBilirubin [Mass/Vol]0.7 mg/dLNormal0.3-1.2MC[facility] GeneralComhenry ford [facility] hospital on above:Performed By: #### LIVP, BMPX, CDP #### [facility] Lab [address] [place] [address] Informix Developer: Willy Henson MDBilirubin, IndirectCan not be calculatedNormal 0.0-1.0[facility] on above:Performed By: #### LIVP, BMPX, CDP #### [facility] Lab [address] [place] [address] Informix Developer: Miguel Lordirubin.indirect [Mass/Vol]mg/dLNormal<0.3Mpaulding county hospitaly [facility] State HospitalComment on above:Performed By: #### LIVP, BMPX, CDP #### [facility] Lab [address] [place] [address] Informix Developer: DESTINEE Lordrotein [Mass/Vol]5.9 g/dLLow6.4-8.3MercMount [address] Mary Hospital HospitalComment on above:Performed By: #### LIVP, BMPX, CDP #### [facility] Lab [address] [place] [address] Informix Developer: Antonia Lord [id number] Coag (Bld) [Time]25.8 s Rckvuz32.9-33.8[facility] HospitalComment on above:Result Comment: IV Heparin Therapy Range: 62.0-94.0Performed By: #### PTT, PT ####[facility] Rkb[address] [place] [address] Lab Director: EDISON Lord with Diffon [id number]. BasophilNormal0.0-0.2Mpaulding county hospitaly [facility] HospitalComment on above:Performed By: #### LACTIC, CDP, CP #### [facility] Lab [address] [place] [address] Informix Developer: Chapin Lord. EosinophilNormal0.0-0.4[facility] Comment on above:Performed By: #### LACTIC, CDP, CP #### [facility] Lab [address] [place] [address] Informix Developer: Chapin Lord.Imm.GranulocyteNormal0.00-0.30[facility] HospitalComment on above:Performed By: #### LACTIC, CDP, CP #### [facility] Lab [address] [place] [phone] Informix Developer: Chapin Lord.Neutrophil (Seg)12.04 k/uLHigh2.5-7.0[facility] HospitalComment on above:Performed By: #### LACTIC CDP, CP #### [facility] Lab [address] [place] [address] Informix Developer: Valarie LordsophilNormal0-2MC[facility] Clinic Akron GeneralComment on above:Performed By: #### LACTIC CDP, CP #### [facility] Lab [address] [place] [address] Informix Developer: ADOLFO LordosinophilNormal0-5[facility] Hospitalment on above:Performed By: #### LACTIC CDP, CP #### [facility] Lab [address] [place] [address] Informix Developer: Janny Lord OadunurdjqoEkvfax6Tkrwk [facility] Comment on above:Performed By: #### LACTIC CDP, CP #### [facility] Lab [address] [place] [address] Informix Developer: Erick Lordmphocytes (Bld) [#/Vol]5.13 10*3/uLHigh1.0-4.[address] [facility] on above:Performed By: #### LACTIC CDP, CP #### [facility] Lab [address] [place] [address] Informix Developer: Erick Lordmphocytes/100 WBC (Bld)29 %Uzgggt87-14BinvoMiddletown Hospitalment on above:Performed By: #### LACTIC CDP, CP #### [facility] Lab [address] [place] [address] Informix Developer: JOSE L Lordonocytes (Bld) [#/Vol]0.53 10*3/uLNormal0.0-1.[address] [facility] on above:Performed By: #### LACTIC, CDP, CP #### [facility] Lab [address] [place] [phone] Informix Developer: JOSE L Lordonocytes/100 WBC (Bld)3 %Low4-8[facility] HospitalComment on above:Performed By: #### LACTIC, CDP, CP #### [facility] Lab [address] [place] [phone] Informix Developer: JOSE L Lordorphology Ki (Bld) [Interp]Manual Differential PerformedNormUniversity Hospitals Beachwood Medical CenterComment on above:Performed By: #### LACTIC, CDP, CP #### [facility] Lab [address] [place] [address] Informix Developer: Willy Henson MDNeutrophil (Seg)68 %Vilald48-41NdwynClinton Memorial HospitalComment on above:Performed By: #### LACTIC, CDP, CP #### [facility] Lab [address] [place] [address] Informix Developer: Willy Henson MDErythrocyte distribution width (RBC) [Ratio]12.5 % Ydumrs36.1-15.2MC[facility] Clinic Akron GeneralComment on above:Performed By: #### LACTIC, CDP, CP #### [facility] Lab [address] [place] [phone] Informix Developer: Willy Henson MDHematocrit (Bld) [Volume fraction]37.1 %Normal 36.0-46.0[facility] HospitalComment on above:Performed By: #### LACTIC, CDP, CP #### [facility] Lab [address] [place] [phone] Informix Developer: Willy Henson MDHemoglobin (Bld) [Mass/Vol]12.2 g/dLNormal 12.0-16.0[facility] HospitalComment on above:Performed By: #### LACTIC, CDP, CP #### [facility] Lab [address] [place] [address] Informix Developer: JOSE L LordCH (RBC) [Entitic mass]29.5 zuOenbmp65.0-34.0 [facility] Hospitalment on above:Performed By: #### LACTIC, CDP, CP #### [facility] Lab [address] [place] [phone] Informix Developer: KIRBY LordC (RBC) [Mass/Vol]32.9 g/nKChikqk68.0-37.0[facility] HospitalComhenry ford macomb hospital on above:Performed By: #### LACTIC CDP, CP #### [facility] Lab [address] [place] [phone] Informix Developer: JOSE L LordCV (RBC) [Entitic vol]89.6 qITfzzgz98.0-100.[address] [facility] on above:Performed By: #### LACTICDIDI, CP #### [facility] Lab [address] [place] [phone] Informix Developer: Deana Lord mean volume (Bld) [Entitic vol]10.9 fL Normal6.0-12.0[facility] on above:Performed By: #### LACTIC CDP, CP #### [facility] Lab [address] [place] [phone] Informix Developer: Claudio Lordtedaniela (Bld) [#/Vol]147 10*3/sAFqhaco204-[address] [facility] on above:Performed By: #### LACTIC, CDP, CP #### [facility] Lab [address] [place] [phone] Informix Developer: MALORIE LordBC (Bld) [#/Vol]4.14 10*6/uLNormal4.00-5.20[facility] HospitalComment on above:Performed By: #### LACTIC, CDP, CP #### [facility] Lab [address] [place] [address] Informix Developer: Willy Henson MDW ([facility]) [#/Vol]17.7 10*3/uLHigh3.5-11.0[facility] HospitalComment on above:Performed By: #### LACTIC, CDP, CP #### [facility] Lab [address] [place] [address] Informix Developer: Chapin Lord. Atypical Lymphs0.29 k/uLNormal0.0-1.0[facility] HospitalComment on above:Performed By: #### CDP, CP, TROPI ####[facility] Uuo5741 [facility] [phone] Director: Chapin Lord. BasophilNormal0.0-0.2[facility] Comment on above:Performed By: #### DIDI CP, TROPI ####[facility] Hsj4398 [facility], [id number] Lab Director: Chapin Lord.Imm.GranulocyteNormal0.00-0.30[facility] HospitalComment on above:Performed By: #### DIDI, CP, TROPI ####[facility] Hyt3180 [facility], [place] Lab Director: Willy Henson MD Abs.Neutrophil (Seg)6.15 k/uLNormal2.5-7.0[facility] HospitalComment on above:Performed By: #### CDP, CP, TROPI ####[facility] Wwk0064 [facility], [place] Lab Director: Willy Henson MD Atypical Lymphs2 %NormalClinton Memorial HospitalComment on above:Performed By: #### DIDI, CP, TROPI ####[facility] [address]pr[address] [place], [id number] Lab Director: Valarie LordsophilNormal0-2 [facility] HospitalComment on above:Performed By: #### DIDI, CP, TROPI ####[facility] Joc[address] [place], [phone] Director: ADOLFO Lordosinophils (Bld) [#/Vol]0.29 10*3/uLNormal 0.0-0.4[facility] HospitalComment on above:Performed By: #### DIDI, CP, TROPI ####[facility] Vge[address] [place], [phone] Director: Dagmar Lordophils/100 WBC (Bld)2 %Normal0-5[facility] HospitalComment on above:Performed By: #### DIDI, CP, TROPI ####[facility] Kuz[address] [place], [id number] Lab Director: Janny Lord DntphlrrpijOoygez7Ibdmg [facility] Comment on above:Performed By: #### DIDI, CP, TROPI ####[facility] Uym3988 [facility] Hospitalharleen [place], [id number]([facility])[phone] Director: Erick Lordmphocytes (Bld) [#/Vol]6.43 10*3/uLHigh1.0-4.8[facility] Comment on above:Performed By: #### DIDI, CP, TROPI ####[facility] Rwo[address] [place], [id number] Lab Director: Yesy Lordhocytes/100 WBC (Bld)45 %Qtkd02-25QyqgsClinton Memorial HospitalComment on above:Performed By: #### DIDI, CP, TROPI ####[facility] Dha1969 [facility] Hospitalharleen NavarroWillard, [place] Lab Director: Willy Henson MD Monocytes (Bld) [#/Vol]1.14 10*3/uLHigh0.0-1.0[facility] HospitalComment on above:Performed By: #### DIDI, CP, TROPI ####[facility] Jna3646 [facility] [place], [id number] Lab Director: Wlily Henson MD Monocytes/100 WBC (Bld)8 %Normal4-8[facility] HospitalComment on above: Performed By: #### DIDI, CP, TROPI ####[facility] Dcj4849 [facility] [place], [place] Lab Director: JOSE L Lordorphology Ki (Bld) [Interp]Manual Differential PerformedNormUniversity Hospitals Beachwood Medical Center Comment on above:Performed By: #### DIDI CP, TROPI ####[facility] Tvv0605 [facility] [place] Lab Director: Willy Henson MDNeutrophil (Seg)43 %Vvp08-52FbjsqClinton Memorial HospitalComment on above: Performed By: #### DIDI, CP, TROPI ####[facility] Mkh7541 [id number] Lab Director: Willy Henson MDErythrocyte distribution width (RBC) [Ratio]12.7 %Qppfob49.1-15.2[facility] Comment on above:Performed By: #### DIDI, CP, TROPI ####[facility] Hbc8838 [facility] CenterWillard, [place] Lab Director: Willy Henson MDHematocrit (Bld) [Volume fraction]38.0 %Fbzceb90.0-46.0[facility] HospitalComment on above:Performed By: #### ABEL TOLBERT, TROPI ####[facility] Mtr[address] [place], [id number] Lab Director: Willy Henson MDHemoglobin (Bld) [Mass/Vol]12.5 g/sUAkqimv42.0-16.0[facility] HospitalComment on above:Performed By: #### ABEL TOLBERT, TROPI ####[facility] Jqb5326 [place], [id number] Lab Director: JOSE L LordCH (RBC) [Entitic mass]29.3 seVvtqzh88.0-34.0[facility] HospitalComment on above:Performed By: #### ABEL TOLBERT, TROPI ####[facility] Noh2839 [address] [place], [id number] Lab Director: KIRBY LordC (RBC) [Mass/Vol]32.9 g/eTQelvld62.0-37.0[facility] HospitalComment on above:Performed By: #### ABEL TOLBERT, TROPI ####[facility] Mwn2497 [place], [id number] Lab Director: JOSE L LordCV (RBC) [Entitic vol]89.2 kJSsowhc59.0-100.0[facility] HospitalComment on above:Performed By: #### ABEL TOLBERT, TROPI ####[facility] Eud35[address] [place], [place] Lab Director: DESTIENE Lordlatelet mean volume (Bld) [Entitic vol]11.0 fLNormal6.0-12.0 [facility] HospitalComment on above:Performed By: #### DIDI CP, TROPI ####[facility] Nln5097 [place], [phone] Director: DESTINEE Lordtntegood samaritan medical center (Bld) [#/Vol]159 10*3/uLNormal 140-450[facility] HospitalComment on above:Performed By: #### ABEL TOLBERT TROPI ####[facility] Wrv3136 [address] [place], [phone] Director: Willy Henson [facility] MEDICAL CENTERBC (d) [#/Vol]4.26 10*6/uLNormal4.00-5.20 [facility] HospitalComment on above:Performed By: #### ABEL TOLBERT TROPI ####[facility] Cze1696 [address] [place], [phone] Director: Willy Henson [facility]DLONG [facility] (d) [#/Vol]14.3 10*3/uLHigh3.5-11.0[facility] HospitalComment on above:Performed By: #### ABEL TOLBERT TROPI ####[facility] Lcc0514 [address] [place], [id number] lab Director: Willy Henson MDCT ABDOMEN PELVIS W IV CONTRASTon [id number] ABDOMEN PELVIS W IV CONTRASTCT ABDOMEN/PELVIS WITH IV CONTRAST. INDICATION: Upper abdominal [...] Signed by: Neptali Johnson MD 06/20/23 Final resultNormalMiddletown Hospitalp Metabolic Profon [id number] [Mass/Vol]4.3 g/dLNormal3.5-5.2MercEstelle Doheny Eye HospitalComment on above:Performed By: #### DIDI ROWLEY, CP #### [facility] Lab [address] [place] [address] Informix Developer: Shelli Lordkaline Mauw499 U/BIshh38-900JufhoClinton Memorial HospitalComment on above:Performed By: #### DIDI ROWLEY, CP #### [facility] Lab [address] [place] [id number] Informix Developer: Willy Henson MDALT [Catalytic activity/Vol]20 U/LNormal5-33[facility] HospitalComhenry ford mac[facility] hospital on above:Performed By: #### DIDI ROWLEY, CP #### [facility] Lab [address] [place] [address] Informix Developer: Willy Henson MDAnion gap [Moles/Vol]10 mmol/LNormal9-17[facility] HospitalComment on above:Performed By: #### LACTIC, CDP, CP #### [facility] Lab [address] [place] [address] Informix Developer: Willy Henson MDAST [Catalytic activity/Vol]20 U/LNormal<32[facility] HospitalComment on above:Performed By: #### LACTIC, CDP, CP #### [facility] Lab [address] [place] [address] Informix Developer: Willy Henson MDBilirubin [Mass/Vol]0.2 mg/dLLow0.3-1.2MC[facility] Clinic [facility]ron GeneralComment on above:Performed By: #### LACTIC, CDP, CP #### [facility] Lab [address] [place] [address] Informix Developer: Willy Henson MDBUN/CRE Zmyjl21Kuat8-53NwaxyClinton Memorial Hospital Comment on above:Performed By: #### LACTIC, CDP, CP #### [facility] Lab [address] [place] [address] Informix Developer: PATTIE Lordalcium [Mass/Vol]8.8 mg/dLNormal8.6-10.4[facility] HospitalComment on above:Performed By: #### LACTIC, CDP, CP #### [facility] Lab [address] [place] [address] Informix Developer: PATTIE Lordhloride [Moles/Vol]99 mmol/LYoiqlz86-021QgkqxClinton Memorial HospitalComment on above:Performed By: #### LACTIC, CDP, CP #### [facility] Lab [address] [place] [address] Informix Developer: Willy Henson MDCO2 [Moles/Vol]24 mmol/PPpeilz92-99HfvrkClinton Memorial HospitalComment on above:Performed By: #### LACTIC, CDP, CP #### [facility] Lab [address] [place] [address] Informix Developer: PATTIE Lordreatinine [Mass/Vol]0.8 mg/dLNormal0.5-0.9[facility] HospitalComment on above:Performed By: #### LACTIC CDP, CP #### [facility] Lab [address] [place] [id number] Informix Developer: Willy Henson MDGFR/1.73 sq M.predicted among non-blacks MDRD (S/P/Bld) [Vol rate/Area]74 mL/min/{1.73_m2}Normal>60[facility] Comment on above:Result Comment: These results are not intended for [...] or following therapy that affects renal tubular secretion.Performed By: #### HALLEY CDP, CP #### [facility] Lab [address] [place] [address] Informix Developer: Willy Henson MDGlucose [Mass/Vol]155 mg/lYAkam93-91TimjeCleveland Clinic Akron GeneralComment on above:Performed By: #### HALLEY CDP, CP #### [facility] Lab [address] [place] [address] Informix Developer: Willy Henson MDPotassium [Moles/Vol]4.0 mmol/LNormal3.7-5.3Mpaulding county hospitaly [facility] State HospitalComment on above:Performed By: #### LACTIC CDP, CP #### [facility] Lab [address] [place] [id number] Informix Developer: Willy Henson MDProtein [Mass/Vol]6.6 g/dLNormal6.4-8.3Mpaulding county hospitaly [facility] State HospitalComment on above:Performed By: #### LACTIC CDP, CP #### [facility] Lab [address] [facility] [place] [address] Informix Developer: Willy Henson MDSodium [Moles/Vol]133 mmol/EVsl226-102UrszyClinton Memorial HospitalComment on above:Performed By: #### LACTIC, CDP, CP #### [facility] Lab [address] [place] [address] Informix Developer: Willy Henson MDUrea nitrogen [Mass/Vol]21 mg/dLNormal8-23[facility] HospitalComment on above:Performed By: #### LACTIC, CDP, CP #### [facility] Lab [address] [place] [address] Informix Developer: Willy Henson MDAlbumin [Mass/Vol]4.3 g/dLNormal3.5-5.2MC[facility] Clinic [facility] GeneralComment on above:Performed By: #### CDP, CP, TROPI ####[facility] Lcg[address] Page RdLeonard Morse Hospitalb[place], [place] Lab Director: Neptali Lord Upru136 U/YUciv84-442SfcqfClinton Memorial Hospital Comment on above:Performed By: #### CDP, CP, TROPI ####[facility] Kzw8308 [facility] RamonLeonard Morse Hospitalbettie, [id number] Lab Director: Willy Henson MDALT [Catalytic activity/Vol]19 U/LNormal5-33[facility] Comment on above:Performed By: #### CDP, CP, TROPI ####[facility] Ewg8426 [facility]Rest[facility] [place], [id number] Lab Director: Letha Lord gap [Moles/Vol]11 mmol/LNormal9-17[facility] HospitalComment on above:Performed By: #### CDP, CP, TROPI ####[facility] Sls3606 [address] [place], [id number] Lab Director: Willy Henson MD AST [Catalytic activity/Vol]19 U/LNormal<32[facility] HospitalComment on above:Performed By: #### ABEL TOLBERT, TROPI ####[facility] [address] [place], [place] Lab Director: Willy Henson MD Bilirubin [Mass/Vol]0.3 mg/dLNormal0.3-1.2MC[facility] Clinic Akron GeneralComment on above:Performed By: #### ABEL TOLBERT, TROPI ####[facility] Uqr0302 [address] [place], [id number] Lab Director: Willy Henson MD BUN/CRE Tyltw47Ltcl1-61VndjnClinton Memorial HospitalComment on above:Performed By: #### ABEL TOLBERT, TROPI ####[facility] Cgk1615 [address] [place], [id number] Lab Director: PATTIE Lordalcium [Mass/Vol]9.8 mg/dL Normal8.6-10.4[facility] HospitalComment on above:Performed By: #### ABEL TOLBERT, TROPI ####[facility] Jns5038 [place] [address] Lab Director: PATTIE Lordhloride [Moles/Vol]101 mmol/L Apwmny10-662ArffmClinton Memorial HospitalComment on above:Performed By: #### ABEL TOLBERT, TROPI ####[facility] Qsr2435 [place] [address] Lab Director: PATTIE LordO2 [Moles/Vol]26 mmol/LNormal 20-31[facility] HospitalComment on above:Performed By: #### DIDI CP, TROPI ####[facility] Rdz4850 [address] [place], [phone] Director: PATTIE Lordreatinine [Mass/Vol]1.2 mg/dLHigh0.5-0.9[facility] HospitalComment on above:Performed By: #### ABEL TOLBERT TROPI ####[facility] [address], [place] Lab Director: Willy Henson MDGFR/1.73 sq M.predicted among non-blacks MDRD (S/P/Bld) [Vol rate/Area]45 mL/min/{1.73_m2}Low>60MerUpstate University HospitalComment on above:Result Comment: These results are not intended for [...] or following therapy that affects renal tubular secretion.Performed By: #### ABEL TOLBERT TROPI ####[facility] [address], [phone] Director: Willy Henson MDGlucose [Mass/Vol]130 mg/wSEpsm20-12Gkaom [facility] State HospitalComment on above:Performed By: #### ABEL TOLBERT TROPI ####[facility] [address] [place], [address] Lab Director: DESTINEE Lordotassium [Moles/Vol]3.8 mmol/LNormal3.7-5.3Mpaulding county hospitaly Scott[facility] Hill HospitalComment on above:Performed By: #### ABEL TOLBERT TROPI ####[facility] [address], [place] Lab Director: Willy Henson MDProtein [Mass/Vol]6.8 g/dLNormal6.4-8.3Mpaulding county hospitaly [facility] State HospitalComment on above:Performed By: #### ABEL TOLBERT TROPI ####[facility] [address], [address] Lab Director: FANY Lordodium [Moles/Vol]138 mmol/ZAqzucj385-104LjttnClinton Memorial Hospital Comment on above:Performed By: #### ABEL TOLBERT, TROPI ####[facility] [address], QB[address] Lab Director: Willy Henson MDUrea nitrogen [Mass/Vol]27 mg/dLHigh8-23Clinton Memorial HospitalComment on above:Performed By: #### ABEL TOLBERT, TROPI ####[facility] [address], [place] lab Director: Willy Henson MD D-Dimer Teston 15-59-8577F-Dimer Test0.36 ug/mL FEUNormal0.00-0.59Clinton Memorial HospitalComment on above:Result Comment: When combined with a low clinical [...] be more prevalent in patients with distal DVT.Performed By: #### DIME #### [facility] Lab [address] [place], [place] [id number] [employer] Developer: Willy Henson MDLactic Acidon 30-64-3254Rhwmbal [Moles/Vol]1.2 mmol/LNormal0.5-2.2MCleveland Clinic South Pointe Hospitalment on above:Performed By: #### LACTIC, CDP, CP #### [facility] Lab [address] [place] [address] [employer] Developer: Willy Henson MDLipaseon 18-60-1392Bhpnwo [Catalytic activity/Vol] 24 U/JFrjukz40-02DqxwnClinton Memorial HospitalComment on above:Performed By: #### LIP #### [facility] Lab [address], [place] [id number] [employer] Developer: Liat Lord 62-87-5519ZDJ Coag (PPP) [Relative time]1.1 {INR}NormalClinton Memorial HospitalComment on above:Result Comment: Therapeutic Range: Moderate Anticoagulant Intensity: INR = 2.0-3.0 High Anticoagulant Intensity: INR = 2.5-3.5Performed By: #### PTT, PT ####[facility] [address] [place], [place] [address] Lab Director: AMRITA Lord Coag (PPP) [Time]13.8 dEsuhep78.5-14.2MKindred Hospital Lima on above:Performed By: #### PTT, PT ####[facility] [address] [place], [place] [address] Lab Director: Willy Henson MDTroponinon 96-76-0376Uwyjvinq, High Sens6 ng/LNormal0-14[facility] on above:Result Comment: High Sensitivity Troponin values cannot be compared with other Troponin methodologies.Performed By: #### CDP, CP, TROPI ####[facility] [address] [place], [place] lab Director: Willy Henson MDUS ABDOMEN LIMITEDon 72-88-0174WL ABDOMEN LIMITEDEXAM: US ABDOMEN LIMITED HISTORY: RUQ pain, question of gallstones on CT. COMPARISON: CT scan abdomen and pelvis 06/20/2023, [facility] abdominal ultrasound 04/04/2023, which showed multiple gallstones. [...] since this was not present on 04/04/2023 [facility]). IMPRESSION: The right kidney substantially shadowed by gas without hydronephrosis. Cholelithiasis. Tumefactive sludge versus large gallbladder polyp (less likely since this was not present on 04/04/2023 [facility] ultrasound). Interpreted by: Joel Osullivan Jr., MD Signed by: Joel Osullivan Jr., MD 06/20/23 Final resultNoKindred HealthcareXR CHEST PORTABLEon 57-87-1567GS CHEST PORTABLEEXAMINATION:XR CHEST PORTABLE INDICATION:chst pain COMPARISON:01/29/2023 TECHNIQUE:A single [...] Signed by: Jaelyn Stanley DO 06/20/23 Final resultNoKindred HealthcareCHEMISTRYOrdered By: SYSTEM SYSTEM on 02-31-1528Teasxfugtxw [Mass/Vol]210 mg/gTArex080 - 200 mg/dLRemisol Chem Cholesterol in HDL [Mass/Vol]43 mg/dLInvalid Interpretation CodeRemisol Chem Comment on above:Result Comment: '>= 60 LOW RISK' '<= 40 HIGH RISK'Cholesterol in LDL [Mass/Vol]144 mg/dLHigh<=129mg/dLRemisol ChemCholesterol in VLDL [Mass/Vol]26 mg/dLNormal7 - 40 mg/dLRemisol Chem Triglyceride [Mass/Vol]129 mg/dLNormal<=149mg/dLRemisol Chem Vital Signs Date TimeVital SignValuePerforming PfxbrcoiwPpsgubkj54-06-7993 09:24-0400Body kqhxap564.4 Silvina Rsoen MD Work Phone: [phone] [place], [place] [address]Vmokgcdpoh29-79-0939 09:24-0400Body mass index (BMI) [Ratio]34.96 kg/v2NaefuGaetano Rosen MD Work Phone: [phone] [place], [place] [address]Vnhadxmbog32-66-8038 09:24-0400Body meeywa76.19 kgGaetano Rosen MD Work Phone: [phone] [place], [place] [address]Ashzwlsqng65-75-3801 09:24-0400Diastolic blood fsopqrew94 mm[Hg]Gaetano Rosen MD Work Phone: [phone] [place], [place] [address]Iuaazolfxv44-16-0075 09:24-0400Heart rate87 /min Gaetano Rosen MD Work Phone: [phone] [place], [place] [address]Zjyjvhrqmt41-22-5549 09:24-0400Respiratory rate18 /minGaetano Rosen MD Work Phone: [phone] [place], [place] [address]Ghujdikbqg36-19-3977 09:24-6231TbW5% (BldA) [Mass fraction]94 %Gaetano Rosen MD Work Phone: [phone] [place], [place] [address]Tunzqinyhz58-27-8183 09:24-0400Systolic blood zfvasouf478 mm[Hg]Gaetano Rosen MD Work Phone: [phone]09-23-2025 09:39-0400Body dnfeix608.4 Guevara Jacobo MD Work Phone: [facility] FultonFqtijjqvsn38-44-6618 09:39-0400Body mass index (BMI) [Ratio]35.74 kg/s0JbwvhxCuauhtemoc Jacobo MD Work Phone: [facility] FultonEkkboqctze62-90-6870 09:39-0400Body xjaour63.01 kgCuauhtemoc Jacobo MD Work Phone: [facility] FultonXcthfhhxtp52-21-7859 09:39-0400Diastolic blood qmtiavws91 mm[Hg]Cuauhtemoc Jacobo MD Work Phone: [facility] FultonDscxtcmbgd31-46-4218 09:39-0400Heart rate57 /min Cuauhtemoc Jacobo MD Work Phone: [facility] FultonXdilkrfcxd57-40-0588 09:39-0400Systolic blood wuuwpgfa907 mm[Hg]Cuauhtemoc Jacobo MD Work Phone: [facility] FultonPgajelrfsy65-19-3247 09:05-0400Body lvykvh190.7 Silvina Rosen MD Work Phone: [facility] FultonCmzgjzctgo51-24-8147 09:05-0400Body mass index (BMI) [Ratio]35.15 kg/p4MjvyoGaetano Rosen MD Work Phone: [phone] [place], [place] [address]Zwvcdueorb51-07-6772 09:05-0400Body pukzwy40.01 kgGaetano Rosen MD Work Phone: [phone] FultonVkvbvqopzl87-42-8879 09:05-0400Diastolic blood ewveyzyl44 mm[Hg]Gaetano Rosen MD Work Phone: [phone] FultonJqrheughbb41-88-1139 09:05-0400Heart rate54 /min Gaetano Rosen MD Work Phone: [phone] [place], [place] [address]Zusefyyods01-55-1667 09:05-0400Respiratory rate16 /minGaetano Rosen MD Work Phone: [phone] [place], [place] [address]Tfmuqzajet58-50-2190 09:05-6694GwY9% (BldA) [Mass fraction]99 %Gaetano Rosen MD Work Phone: [facility] FultonEyetolnhlq29-95-1232 09:05-0400Systolic blood anurbkja050 mm[Hg]Gaetano Rosen MD Work Phone: [facility] FultonLnqghzrcon13-40-8289 08:25-0400Body stfoxf665.5 cmCuauhtemoc Jacobo MD Work Phone: [facility] FultonWlcvcmpvqk52-11-2596 08:25-0400Body mass index (BMI) [Ratio]33.84 kg/k9IujntdCuauhtemoc Jacobo MD Work Phone: [phone] FultonIyaurwkvfd92-74-8107 08:25-0400Body ispduy05.92 kgCuauhtemoc Jacobo MD Work Phone: [phone]08-12-2025 08:25-0400Diastolic blood umkdjcmw27 mm[Hg]Cuauhtemoc Jacobo MD Work Phone: [phone])[address]08-12-2025 08:25-0400Heart rate82 /min Cuauhtemoc Jacobo MD Work Phone: [facility] FultonQtksqccbah30-71-8362 08:25-0400Systolic blood jogtwlpm687 mm[Hg]Cuauhtemoc Jacobo MD Work Phone: [phone] FultonLunwfggvut76-37-9121 13:19-0400Diastolic blood mm[Hg]Ernesto Mykel [facility]05-12-2025 13:19-0400Systolic blood vovendjl321 mm[Hg]Ernesto Ramirez [facility] HospitalYabfwyjzzp63-41-7153 19:02-0400 Body xssswevtjdt79.1 [degF][facility]05-18-2024 19:02-0400 Diastolic blood lygmqurk62 mm[Hg][facility] 01[facility]05-18-2024 19:02-0400Heart rate95 /minKsh 01[facility]05-18-2024 19:02-0400 Respiratory rate16 /minKsh [facility]05-18-2024 19:02-7806KqR0% (BldA) [Mass fraction]96 %[facility]ATIONShowcase [facility] HOSPITALSWKCAS81-84-0556 19:02-0400 Systolic blood gimjcpgn841 mm[Hg][facility]05-17-2024 06:29-0400Body fcneznvweoy14 [degF]Michelle Cox MD Work Phone: [facility]ATIONShowcase [facility] HOSPITALNIPWJH65-25-5897 06:29-0400Diastolic blood xbazxxia40 mm[Hg]Michelle Cox MD Work Phone: [facility]ATIONShowcase [facility] HOSPITALYQMCMU66-92-5150 06:29-0400Heart rate52 /minMichelle Cox MD Work Phone: [facility]ATIONShowcase [facility]ITALQuickflixYBBULI53-96-4283 06:29-0400 Respiratory rate18 /minMichelle Cox MD Work Phone: [facility]ATIONShowcase [facility] HOSPITALNGTWNQ82-38-7433 06:29-4536NrO3% (BldA) [Mass fraction]98 %Michelle Cox MD Work Phone: [facility]ATIONShowcase [facility] HOSPITALWZBPFG00-68-5981 06:29-0400Systolic blood zqvucwtg213 mm[Hg]Michelle Cox MD Work Phone: [facility]ATIONShowcase [facility] KTYNMQ58-98-6872 03:35-0400Body mass index (BMI) [Ratio]36.45 kg/m2Michelle Cox MD Work Phone: [facility]ATIONShowcase [facility] YOODXA78-93-4318 03:35-0400Body eienov42.4 kgMichelle Cox MD Work Phone: [facility]ATIONShowcase [facility] HOSPITALDBEWAU51-07-2545 07:45-0400Body iexuux751.5 cmMichelle Cox MD Work Phone: [facility]ATIONShowcase [facility] PJULDI81-96-4602 13:11-0400Body .59 [degF]Ramon Olea MD Work Phone: [facility]ATIONShowcase [facility] SYAWKM56-97-7045 13:11-0400Diastolic blood jrwtgufz61 mm[Hg]Ramon Olea MD Work Phone: [facility]05-01-2024 13:Heart rate65 /Vasile Olea MD Work Phone: [facility]05-01-2024 13: Respiratory rate17 /Vasile Olea MD Work Phone: [facility]05-01-2024 13:4951OyQ5% (BldA) [Mass fraction]97 %Ramon Olea MD Work Phone: [facility]05-01-2024 13:Systolic blood mm[Hg]Ramon Olea MD Work Phone: [facility]05-01-2024 07:32-0400Body knkuhs961.5 cmRamon Olea MD Work Phone: [facility]05-01-2024 05:14-0400Body mass index (BMI) [Ratio]34.27 kg/g7WvkaeeeRamon Olea MD Work Phone: [facility]05-01-2024 05:14-0400Body navwlc29 kgRamon Olea MD Work Phone: [facility]02-21-2023 08:07-0500Body okhypq982.5 cmRvidhi Lopes MD Work Phone: [phone]bwgqw58-08-8020 08:07-0500Body mass index (BMI) [Ratio]37.49 kg/x5CfudsbLuis Felipe Lopes MD Work Phone: [phone]uyghk65-60-4353 08:07-0500Body uapfuq24.99 kg Luis Felipe Lopes MD Work Phone: [phone]bluoq95-04-6186 08:32-0500Body amfgho183.5 cm Luis Felipe Lopes MD Work Phone: [phone]hMuqenm69-62-9003 08:32-0500Body mass index (BMI) [Ratio]37.49 kg/x7RstgndLuis Felipe Lopes MD Work Phone: [phone]kqram93-31-6812 08:32-0500Body dxaheq87.99 kg Luis Felipe Lopes MD Work Phone: [facility] Encounters Encounter DateEncounter TypeCare ProviderFacilityStart: 67-05-3120pypfzdblfpLXE Camila Moreno SchwabFacility:FT FM BellevueStart: 01-09-2025 End: 00-95-4590qsyskcnwwoURO KIA De La [place]ega EDGARDANNFacility:FT FM BellevueStart: 01-06-2025 End: 25-01-6100twivsoijbwYFNXZQXLicking Memorial Hospitaltart: 01-06-2025 End: 00-38-2577miyxgginwqJDZSSOZLicking Memorial Hospitaltart: 12-22-2024 End: 03-16-1647Pabafoeca encounterGaetano Rosen MD Work Phone: noms Cassy EndocrinologyComment on above:Advice OnlyReferralStart: 12-18-2024 End: 99-39-8876Mnyatg flowsKatrin Rosen MD Work Phone: noms [facility] EndocrinologyStart: 12-18-2024 End: 33-49-5039Fckqvddillon Rosen MD Work Phone: noms [facility] EndocrinologyStart: 12-18-2024 End: 59-26-9633Rxnpeq outpatient visit 25 minutesGaetano Rosen MD Work Phone: noms Cassy EndocrinologyComment on above: Subclinical hyperthyroidism (Primary Dx); Thyroid noduleStart: 12-18-2024 End: 76-44-4317srlfrvesexBCCCC F SABBAGHNot AvailableStart: 12-15-2024 End: 52-71-8551kvnvagjmefVOOHGAFMemorial Hospitaltart: 12-15-2024 End: 75-40-8291maovfhyitcGZAANHILicking Memorial Hospitaltart: 12-10-2024 End: 70-73-9947uaaqzfbpnxBIT KIA A LEHMANNFacility:FT FM BellevueStart: 12-09-2024 End: 18-54-8600Pgjiuwmaine Jacobo MD Work Phone: NOVE [place] OtolaryngologyStart: 12-09-2024 End: 26-47-8415Ligfky Ruslan Jacobo MD Work Phone: NOSI [place] OtolaryngologyStart: 12-09-2024 End: 73-64-4909Papgwm outpatient visit 15 minutesCuauhtemoc Jacobo MD Work Phone: NOFP [place] OtolaryngologyComment on above:Thyroid mass (Primary Dx)Start: 12-09-2024 End: 97-89-7217czduoqckodENFIYE H TIMMISNot AvailableStart: 12-08-2024 End: 36-64-4698Pancdhcbo encounterCuauhtemoc Jacobo MD Work Phone: NOXE [place] OtolaryngologyComment on above:blood resultsStart: 12-04-2024 End: 50-89-0998Ieoqmi Blas Rosen MD Work Phone: NOMS [facility]y EndocrinologyStart: 12-04-2024 End: 31-78-4255Qesbka Blas Rosen MD Work Phone: [facility] EndocrinologyStart: 12-04-2024 End: 25-62-1404Twqnxt outpatient new 45 minutesGaetano Rosen MD Work Phone: NOMS Cassy EndocrinologyComment on above: Subclinical hyperthyroidism (Primary Dx); Thyroid noduleStart: 12-04-2024 End: 42-64-3141syxlgsjfpoJKRSAHunter Doty AvailableStart: 12-03-2024 End: 04-06-1925moxdlwfibzZlbdtll R NILLFacility:GS BellevueStart: 12-03-2024 End: 21-32-3783Bqyzlrj encounter procedureAlfonso DUDLEY [phone]-StxxpProvidence Hospital General Surgery Chan Start: 11-21-2024 End: 76-90-6107bqikjwmwawXicg L SchwabFacility:FTMCStart: 11-21-2024 End: 52-56-7383uidejpnyvgYFZJQR A LEHMANNFacility:FT BellevueStart: 11-19-2024 End: 45-64-0226gimwtplxeaOcfterc R [facility] Work Phone: Start: 11-19-2024 End: 99-69-7739Gatdlgur ReferredAlfonso Dudley MD FACS-LAB Path Spec [facility] HospStart: 11-19-2024 End: 20-15-0575vovqxapuqvBuqxclf R NILLFacility:CD:[id number]: 11-13-2024 End: 16-92-5432gftukzieyfFzprdk H Timmis [facility] Work Phone: Start: 11-13-2024 End: 72-33-9283Ztbvhsjr Teetee JACOBO MD-LAB Path Spec [facility] Start: 11-13-2024 End: 27-18-0537vzlesezhemXMDEFH H TIMMISFacility:[facility] HospitalStart: 11-11-2024 End: 54-24-8581cqehiucigvZMLCOS A LEHMANNFacility:FTMCStart: 10-29-2024 End: 44-79-8437bacsmssoreIHSUAM A LEHMANNFacility:FTMCStart: 10-28-2024 End: 84-84-5328Nmowpfdillon Jacobo MD Work Phone: NOMS [place] OtolaryngologyStart: 10-28-2024 End: 39-32-7890Hutnemdillon Jacobo MD Work Phone: NOMS [place] OtolaryngologyStart: 10-28-2024 End: 68-96-6953Eridts outpatient new 45 minutesCuauhtemoc Jacobo MD Work Phone: NOMS [place] OtolaryngologyComment on above:Thyroid mass (Primary Dx)Start: 10-28-2024 End: 39-83-9033suubppttfbJIETTR H TIMMISNot AvailableStart: 10-22-2024 End: 65-53-0842ukenqxpcukIOGOKL A LEHMANNFacility:FTMCStart: 10-21-2024 End: 26-35-7553viaroyvuweVemvsjr R NILLFacility:GS BellevueStart: 10-21-2024 End: 78-70-7812Shlnexh encounter procedureMichael R NILL [phone]-UmineProvidence Hospital General Surgery [facility] Start: 10-14-2024 End: 52-12-0713cbnlntdsgcMnaq L SchwabFacility:FTMCStart: 07-28-2024 End: 87-03-0614Fwzubz Al Shweiki Work Phone: RVCeferino ToledoStart: 54-11-0086syziiofiufGvwfur Al Shvera [facility] InstituteStart: 07-23-2024 End: 02-14-6519Aprucn T Nelsen Jr Work Phone: RVCeferino ToledoStart: 04-30-1008gjaihaechxVjdzeb T Nelsen JrMiami Valley Hospital InstituteStart: 06-13-2024 End: 51-91-6365Rjbcgk outpatient visit 25 minutesRobcaren Lopes MD Work Phone: [facility]opedic SurgeonsComment on above:History of total right knee replacement (Primary Dx); Spinal stenosis, lumbar region, without neurogenic claudication; Primary osteoarthritis of left kneeStart: 06-13-2024 End: 16-94-4231csshlzpjpyRIJT [facility] AmbulatoryStart: 04-24-2024 End: 83-14-4590doegdnommkCuig L SchwabFacility:FT FM BellevueStart: 04-10-2024 End: 62-59-4988Mnv Drop offJodi L Cosmo [facility] Start: 04-10-2024 End: 16-16-4462zxlaumdazaQkeh L SchwabFacility:FTMCStart: 08-27-2023 End: 16-88-6468guryxhfxibNXAXAOCMICHELET [facility] HospitalStart: 08-06-2023 End: 66-50-5247peredmmcpzFWCYDV IACOBMercy Tiffin HospitalStart: 08-05-2023 End: 47-41-9441ymjrqcetswMRWHHZ IACOBWilla Brooks HospitalStart: 08-04-2023 End: 33-43-4505xcnubiffayRGYHZU Mia Brooks HospitalStart: 08-04-2023 End: 09-10-6737Oesncsvdyg hospital visit by [facility] Op Treatment [address] [facility] ([facility]B)Comment on above:ArrivedStart: 08-04-2023 End: 31-02-2787jxmrnhsdzkCURBJL IACOBMercy Tiffin HospitalStart: 07-31-2023 End: 74-34-3980Ixiufobekh and management of inpatientJODI COSMOMerernestine Brooks HospitalStart: 07-31-2023 End: 48-89-7479Eywistmeue and management of inpatientMark Khalif Cox MD Work Phone: mthz [facility] MED SURGComment on above:Post-operative wound abscess (Primary Dx); Failure of outpatient treatment; Abscess of umbilicus; Abscess of postoperative wound of abdominal wallStart: 07-17-2023 End: 54-29-3957Ttltyyenvh and management of inpatientRAMON Brooks HospitalStart: 07-17-2023 End: 86-01-2339Nrszdfmroj and management of inpatientRamon Olea MD Work Phone: mthz [facility] MED SURGComment on above:Incarcerated ventral hernia (Primary Dx); Wound dehiscence; Post-op painStart: 19-99-7089Rpcebtmdlc and management of inpatientJODI Wayne Hospitaltart: 04-04-2023 End: 41-51-2266Nts Drop Mega [facility] Start: 05-09-2022 End: 91-73-7202Lzjinl outpatient visit 15 minutesLuis Felipe Lopes MD Work Phone: [facility]opedic PhysiciansComment on above: History of total right knee replacement (Primary Dx)Start: 60-84-0890Kqeynnmarsha Fitzgerald [facility] Orthopedic SurgeonsStart: 04-18-2022 End: 27-36-5978Gtwwld outpatient new 30 minutesLuis Felipe Lopes MD Work Phone: [facility]opedic PhysiciansComment on above: History of total right knee replacement (Primary Dx)Start: 03-29-2022 End: 40-52-0714bgcauoyosrTA MIGEL LOPEZERFacility:H1 Procedures DateProcedureProcedure DetailPerforming ClinicianStart: 43-28-5541Fuppcwfh of lipomaMichael NILL Start: 07-28-2024 End: 36-39-7877Koyjjkugvewn ophthalmic imaging retinaPhilip Betzaida JrStart: 58-56-7068Naupra Photos No ChargePhilip Betzaida JrStart: 07-28-2024 End: 50-36-2119Frxkrk Photos No Charge BilateralSameer Al Shweiki MDStart: 28-63-9881Ijkmatuofglfgg aspir&/inj major jt/bursa w/o usLuis Felipe Lopes MD Work Phone: Start: 82-86-4341Vtjan count complete auto&auto difrntl wbcRobcaren Castañeda MD Work Phone: Start: 08-03-2023 End: 10-20-2160Rzfegt ecg 1-3 leads w/interpretation & reportUnknown Provider ResultStart: 08-02-2023 End: 70-36-7805Krimtj ecg 1-3 leads w/interpretation & reportUnknown Provider ResultStart: 67-90-2171Nzrhe count complete auto&auto difrntl wbcLuis Felipe Castañeda MD Work Phone: Start: 08-01-2023 End: 54-13-2502Ocmlyt ecg 1-3 leads w/interpretation & reportUnknown Provider ResultStart: 68-03-6617Sdaun count complete auto&auto difrntl wbcLuis Feilpe Castañeda MD Work Phone: Start: 23-42-5975Augfuj ecg 1-3 leads w/interpretation & reportUnknown Provider ResultStart: 95-47-2851Xrx prsmptv pthgnc organism scrn w/colony estimjLuis Felipe Castañeda MD Work Phone: Start: 07-31-2023 End: 60-89-4105CVGEFPU INCISION AND DRAINAGERobcaren Castañeda MD Work Phone: Start: 65-33-6732Ektoitdyzcqo pulse oximetryLuis Felipe Castañeda MD Work Phone: Start: 93-57-2132Tr abdomen & pelvis w/contrast materialKelly Y La PA-C Work Phone: Start: 61-54-5596Turct metabolic panel calcium total Richelle Y La PA-C Work Phone: Start: 32-37-3379Agprmaujfvhmi metabolic panelRamon Olea MD Work Phone: Start: 07-17-2023 End: 81-13-5136YLARPV UMBILICAL REPAIR EXTENSIVERamon Olea MD Work Phone: Start: 07-17-2023 End: 70-74-9776OZCMOL ANASTOMOSIS DUODENAL ILEAL BYPASS ROBOTIC ASSISTEDRamon Olea MD Work Phone: Start: 07-17-2023 End: 75-54-0466BAUURRBZPRL OMPHALECTOMYRamon Olea MD Work Phone: Start: 39-96-4633AvxojrcqjkqxmuzQaig Cosmo Amputation of thumbMichael NILL Ankle region structure (body structure)KIA SAMUEL Comment on above:rightArthroplasty of kneeSHELLY JIMMIE Comment on above:2009, rightCataract (disorder)KIA SAMUEL Comment on above:bilateral 2006Closed fracture of ankle (disorder)Alfonso NILL Excision of lesion of skinMichael NILL Finger structure (body structure)KIA SAMUEL History of cholecystectomyS/P cholecystectomyJodi Cosmo Intestinal structure (body structure)KIA SAMUEL Comment on above:obstruction 1979'sLysis of adhesions Alfonso NILL Repair of incisional herniaMichael NILL Repair of joint of right kneeMichael NILL Stomach structure (body structure)KIA SAMUEL Comment on above:1968 Plan of Treatment DateCare ActivityDetailAuthorStart: 04-15-2025 End: 35-94-0748Qhkovkb encounter gtiptrqgk66/28/2026 9:00 AM EST Office Visit [facility] [place] [facility] [address] [place] [address] Cuauhtemoc Jacobo MD [address] [place] [address] [facility] [place] [facility]olaryngologyStart: 03-26-2025 End: 09-02-6318Sywxbkn encounter ghvudlalr93/08/2026 9:50 AM EST [facility] [address] [place] [id number] Gaetano Rosen MD [address] [place] [address] [facility]Start: 08-50-3320Fhhhrx, Marline 6mo DFE OCT [facility] Work Phone: Start: 12-18-2024 End: 75-80-2380Zcpqzowbwwy [Units/volume] in Serum or PlasmaTSH Lab Routine Subclinical hyperthyroidism Expected: 12/18/2024 (Approximate), Expires: 12/18/2025NOAZ HealthcareComment on above:Expected: 12/18/2024 (Approximate), Expires: 12/18/2025Start: 12-18-2024 End: 20-46-1618Toyuhjwak (T4) free [Mass/volume] in Serum or PlasmaT4, free Lab Routine Subclinical hyperthyroidism Expected: 12/18/2024 (Approximate), Expires: 12/18/2025NO[facility] HealthcareComment on above:Expected: 12/18/2024 (Approximate), Expires: 12/18/2025Start: 12-18-2024 End: 92-03-9595Hkoxlejlsafmvyrm (T3) Free [Mass/volume] in Serum or PlasmaT3, free Lab Routine Subclinical hyperthyroidism Expected: 12/18/2024 (Approximate), Expires: 12/18/2025[facility] Work Phone: Comment on above:Expected: 12/18/2024 (Approximate), Expires: 12/18/2025Start: 12-18-2024 End: 27-54-3237Bththtk encounter procedureNOMS [place] EndocrinologyComment on above:ArrivedStart: 12-09-2024 End: 37-52-3817Wadnqjr encounter procedureNOMS [place] OtolaryngologyComment on above:ArrivedStart: 12-04-2024 End: 84-54-6619Nwqldyqlyyjbx AntibodyThyroglobulin Antibody Lab Routine Thyroid nodule Subclinical hyperthyroidism Expected: 12/04/2024 (Approximate), Expires: 12/04/2025[facility] Work Phone: Comment on above:Expected: 12/04/2024 (Approximate), Expires: 12/04/2025Start: 12-04-2024 End: 97-68-0604Eghgenb peroxidase antibodyThyroid peroxidase antibody Lab Routine Thyroid nodule Subclinical hyperthyroidism Expected: 12/04/2024 (Approximate), Expires: 12/04/2025[facility] HealthcareComment on above:Expected: 12/04/2024 (Approximate), Expires: 12/04/2025Start: 12-04-2024 End: 02-10-3625Wpvwrupatfh [Units/volume] in Serum or PlasmaTSH Lab Routine Thyroid nodule Subclinical hyperthyroidism Expected: 12/04/2024 (Approximate), Expires: 12/04/2025[facility] HealthcareComment on above:Expected: 12/04/2024 (Approximate), Expires: 12/04/2025Start: 12-04-2024 End: 90-07-8946Tgfxbvkutii receptor antibodyThyrotropin receptor antibody Lab Routine Thyroid nodule Subclinical hyperthyroidism Expected: 12/04/2024 (Approximate), Expires: 12/04/2025[facility] HealthcareComment on above:Expected: 12/04/2024 (Approximate), Expires: 12/04/2025Start: 12-04-2024 End: 33-96-7970Xlvndxlna (T4) free [Mass/volume] in Serum or PlasmaT4, free Lab Routine Thyroid nodule Subclinical hyperthyroidism Expected: 12/04/2024 (Approximate),Expires: 12/04/2025[facility] HealthcareComment on above:Expected: 12/04/2024 (Approximate), Expires: 12/04/2025Start: 12-04-2024 End: 06-34-4027Rqsbtupoaahryrub (T3) Free [Mass/volume] in Serum or PlasmaT3, free Lab Routine Thyroid nodule Subclinical hyperthyroidism Expected: 12/04/2024 (Approximate),Expires: 12/04/2025[facility] HealthcareComment on above:Expected: 12/04/2024 (Approximate), Expires: 12/04/2025Start: 12-04-2024 End: 13-77-5105Thanjuu encounter zcrkivueg65/18/2025 9:50 AM EDT Office Visit [facility] [place] [facility] [address] [place] [address] Gaetano Rosen MD [address] [place] [address] [facility] EndocrinologyComment on above:ArrivedStart: 55-64-9144Pbrnwnapm vaccinationInfluenza Vaccine (#1) [facility] HealthcareStart: 10-28-2024 End: 86-42-0423Jrmwfzg encounter hginuvtnq46/12/2025 8:40 AM EDT Office [facility] [address] [facility] [address] [place] [address] Cuauhtemoc Jacobo MD [address] [facility] [address] [place] [address] ArrivedNOMS [facility]land OtolaryngologyComment on above:ArrivedStart: 39-42-1503VNTTD-19 Vaccine ( season)COVID-19 Vaccine ( season)[facility]: 18-21-6181Rwfkeydkw vaccination Influenza Vaccine (#1)[facility]Start: 09-15-8825Fxcnsdbfg vaccinationFlu vaccine (Season Ended)[facility]: 08-27-2023 End: 10-14-3824Fxkwcpk encounter simtgrcsz14/10/2024 2:30 PM EDT Office Visit [facility] Part of [address] [phone] Ramon Olea MD [address] [place] [address] [address] [place] [address] 4 weeksSt. John of God HospitalComment on above:4 weeksStart: 25-57-5069WSfV/Tdap/Td vaccine (2 - Td or Tdap)DTaP/Tdap/Td vaccine (2 - Td or Tdap)CAITLIN HUERTA [facility]ITALStart: 08-69-1576Asmrfqw vaccinationTetanus: Every 10yrsOhioHealthStart: 08-07-2023 End: 79-96-6793Emyjsia encounter rbtqzfymz04/21/2024 2:30 PM EDT Office Visit [address] [place] [phone] Ramon Olea MD [address] [place] [address] [address] [place] [address] post op, fistula [address] HospitalComment on above:post op, fistula 1 and D.Start: 08-06-2023 End: 72-95-5330Uknpxcp encounter vrxypgavb69/20/2024 7:00 AM EDT Appointment [facility] ([facility]) [address] [place] [address] [facility] (MOB)Start: 08-05-2023 End: 78-75-3269Wtoirst encounter procedureUTICA [facility]YCH[facility]ATR[facility] ([facility])Start: 08-04-2023 End: 01-96-3989Yhfzmfw encounter procedureUTICA [facility]YCH[facility]ATR[facility] ([facility])Start: 07-25-2023 End: 14-06-0819Yqnibts encounter epcotxiwr74/08/2024 4:30 PM EDT Office Visit [address] [place] [phone] Ramon Olea MD [address] [place] [address] [address] [place] [phone] post op check, revision of umbilical incisionSELECT [facility] Part [facility] Medical CenterComment on above:post op check, revision of umbilical incisionStart: 24-31-5248Vsexzy Wellness Visit (Medicare)Annual Wellness Visit (Medicare)[facility]Start: 05-08-2023 End: 39-33-9291Tjjyatb encounter kuoemsqzb83/20/2024 Office Visit Orthopedic Surgery Luis Felipe Lopes MD [address] [place] [address] [facility] PhysiciansStart: 05-09-2022 End: 44-45-3098Ddyudep encounter gixvkbqgx42/21/2023 Office Visit Orthopedic Surgery Luis Felipe Lopes MD [address] [place] [address] [facility] PhysiciansStart: 11-17-2021 Influenza vaccinationSequential Influenza Vaccine (#1)[facility] HospitalStart: 24-78-5624Tpouiatsays Syncytial Virus Immunization: Risk, 60-74 Risk, or 75+ (1 - 1-dose 75+ series)Respiratory Syncytial Virus Immunization: Risk, 60-74 Risk, or 75+ (1 - 1-dose 75+ series)[facility] SystemStart: 44-37-8539Apiv risk assessmentFalls Risk AssessmentTnioHealthStart: 2007 Pneumococcal 65+ years Vaccine (1 of 1 - PCV)Pneumococcal 65+ years Vaccine (1 of 1 - PCV)[facility]Start: 34-15-5580Yrmdhggqrmox Vaccine: Age 65+ (1 - PCV)Pneumococcal Vaccine: Age 65+ (1 - PCV)[facility]Start: 2002 Respiratory Syncytial Virus (RSV) or age 60 yrs+ (1 - 1-dose 60+ series)Respiratory Syncytial Virus (RSV) or age 60 yrs+ (1 - 1-dose 60+ series)[facility]: 22-17-9505Rlninumvofgfxm of herpes zoster vaccineZoster Vaccines (1 of 2)[facility]Start: 78-66-2571Qvbvqzganand Vaccine: 65+ Years (1 of 1 - PCV)Pneumococcal Vaccine: 65+ Years (1 of 1 - PCV)[facility] HealthcareStart: 92-62-1067Kjfssxwpqfjw Vaccine: Age 50+ (1 of 1 - PCV) Pneumococcal Vaccine: Age 50+ (1 of 1 - PCV)[facility] HospitalStart: 98-55-7562Qymsigof vaccine (1 of 2)Shingles vaccine (1 of 2)[facility]Start: 25-13-6718Ykcmmzrmg for malignant neoplasm of breastMammogramFlower HospitalStart: 80-92-9729Inklunyzvp ScreenDepression ScreenBON EL[facility]RIA MEMORIAL HOSPITALStart: 57-22-9944Pvhqhkfqfy screening using PHQ-9 (Patient Health Questionnaire 9) scoreTnioHealthStart: 41-17-8411Lmooyyd and physical examination, annual for health maintenanceWellness VisitTnioHealthStart: 12-17-1945Medicare Wellness VisitMedicare Wellness VisitTnioHealthStart: 68-29-2261FCZUG-19 Vaccine (#1) COVID-19 Vaccine (#1)[facility] HospitalStart: 1942Medicare Annual Wellness (AWV) Medicare Annual Wellness (AWV)[facility] HealthcareStart: 37-33-2746Zoytsewra for osteoporosisDexa ScanFlower Hospital End: 75-20-3936TFY W Auto Differential panel - BloodCBC auto differential Lab Routine Tomorrow AM for 99 Occurrences starting 08/01/2023 until 11/07/2023, 3 [facility] GroupC[facility] on above:Tomorrow AM for 99 Occurrences starting 08/01/2023 until 11/07/2023, 3 completed End: 73-51-4975Joababrwuznip Metabolic Panel w/ Reflex to MGComprehensive Metabolic Panel w/ Reflex to MG Lab Routine Tomorrow AM for 99 Occurrences starting 08/01/2023 until 11/07/2023, 3 completedBON [employer] [facility] on above:Tomorrow AM for 99 Occurrences starting 08/01/2023 until 11/07/2023, 3 completedCulture, Anaerobic and AerobicBON [facility]rend[facility] GroupCedar County Memorial Hospital on above:Release Upon Ordering for 1 Occurrences starting 07/31/2023Oxygen therapy [Minimum Data Set]Initiate Oxygen Therapy Protocol Respiratory Care Routine As Needed until discontinued starting 07/17/2023ON [facility] CORPORATIONInfobrightCedar County Memorial Hospital on above:As Needed until discontinued starting 04/30/2024Oxygen therapy [Minimum Data Set]Initiate Oxygen Therapy Protocol Respiratory Care Routine As Needed until discontinued starting 07/31/2023 [facility] GroupC[facility] Hospital on above: As Needed until discontinued starting 07/31/2023Surgical PathologySurgical Pathology Lab Routine Wound dehiscence Release Upon Ordering for 1 Occurrences starting 07/17/2023ON [facility] GroupC[facility] Hospital on above:Release Upon Ordering for 1 Occurrences starting 07/17/2023 End: 97-18-6367HGBYRRDN PATHOLOGY REPORTSURGICAL PATHOLOGY REPORT Lab Routine Once for 1 Occurrences starting 07/17/2023 until 07/17/2023ON [employer] [facility] on above:Once for 1 Occurrences starting 07/17/2023 until 07/17/2023 Immunizations Immunization DateImmunizationNotesCare MmextwhhGpakxtnp06-46-2244bgjdqyg toxoid, reduced diphtheria toxoid, and acellular pertussis vaccine, adsorbedKIA SAMUEL 297-9892Wwdndh-MhnyqMercy Health West Hospital 45-49-1591macosen and diphtheria toxoids, adsorbed, preservative free, for adult use (2 Lf of tetanus toxoid and 2 Lf of diphtheria toxoid)KIA SAMUEL 189-6514Jabwoc-CzrxfMercy Health West Hospital NEGATED: Highlighted row has not occurred!72-24-0344rcnwocsof virus vaccine, unspecified formulationCamila Carlos [phone]-YlzbbMercy Health West Hospital Payers DatePayer CategoryPayerPolicy [id number] Health [id number] Care (unspecified)[employer] OTHER AFTER MEDICARE [id number] Health Insurance [id number] [id number] [id number] [id number] [id number] 2.16.840.1.243659.3.57[id number] 2..840.1.386271.3.57[id number] 2..840.1.751805.3.57[id number] 2..840.1.092347.3.57[id number] 2..840.1.272936.3.57[id number] 2..840.1.053616.3.57[id number] 2.16.840.1.472849.3.57[id number] 2.16.840.1.396018.3.57[id number] 2.16.840.1.084325.3.579.[id number] 2.16.840.1.038178.3.579.[id number] 2.16.840.1.082608.3.579.[id number] 2.16.840.1.735109.3.57[id number] 2.16.840.1.306852.3.579.2.924463-45-7816Exmxokg93375112 2.16.840.1.477000.3.579.2.[id number] 2.16.840.1.970293.3.57[id number] 2.16.840.1.224153.3.579.2.46653-05-7569Yfvhjlh23492318 2.16.840.1.999650.3.579.2.87640-19-8496Zttjkdx85756006 2.16.840.1.175283.3.579.2.54253-44-5495Poeflde61428628 2.16.840.1.809446.3.57[id number] 2.16.840.1.857064.3.579.2.98405-04-2170Icdxipm43669027 2.16.840.1.285595.3.579.2.54771-31-0963Psctjmd65894205 2.16.840.1.447052.3.579.2.12729-04-1376Zisxzxg32555199 2.16.840.1.695645.3.579.2.54587-98-1135Pzpgnsk77402547 2.16.840.1.219543.3.579.2.28634-71-7084Omfdrsb13678479 2.16.840.1.134126.3.579.2.[id number] 2.16.840.1.183848.3.579.2.14207-98-1445Eysdryx29387028 2.16.840.1.915139.3.579.2.13306-12-0944Yhwsjlq98050475 2.16.840.1.781057.3.579.2.07845-00-9887Megumwb93176648 2.16.840.1.296118.3.579.2.096250-46-2510Oerpkbt81286471 2..840.1.413941.3.579.2.343121-12-2692Ulfaodu92426357 2.840.1.376785.3.579.2.393648-79-6792Ewjdwgn09685631 2..840.1.246677.3.579.2.592602-92-3297Nvbwejc42194554 2..840.1.197657.3.579.2.19509-32-8710Ynjauwd62993173 2.840.1.415828.3.579.2.00360-69-2376Htjyaua95422618 2.16.840.1.921599.3.579.2.26148-23-8549Ikoqvwx71528669 2.16.840.1.308537.3.579.2.14394-90-0271Jaovazc29561058 2.16.840.1.335802.3.57[id number] 2.16.840.1.397884.3.579.2.95987-16-2025Pebcsud64545459 2.16.840.1.298322.3.579.2.28931-71-5180Mlvuzwe60725595 2.840.1.343741.3.579.2.05199-28-7209Ipntvyh26552570 2..840.1.556046.3.579.2.43973-26-9201Pzoszoz31451821 2.840.1.009530.3.579.2.718 Social History DateTypeDetailFacilityTobacco smoking status NHISTobacco smoking consumption unknownOhioHealthStart: 91-01-1125Hrj Assigned At BirthNot on fileOhioHealth Start: 04-08-2022 End: 09-15-6720Linvorho to SARS-CoV-2 (event)Not sureOhioHealthStart: 04-04-2023 End: 07-49-0115Krcsxxs smoking statusNever smoked tobacco (finding)[facility] BellueComment on above:denies use.Tobacco smoking statusNeverParma Community General Hospital BellevueComment on above:denies use.Start: 06-20-2023 End: 36-70-6897Dxx Assigned At BirthFemalWilson Street Hospitaltart: 07-17-2023 End: 33-89-6024Osauyqy intakeCurrent non-drinker of alcohol (finding)[facility] [employer] [facility]OS[facility]ITALStart: 07-17-2023 End: 49-15-4625Fsyjdyb intakeBON Trendlines GroupHas the Your Dollar Matters, gas, oil, or water Forsake threatened to shut off services in your home in past 12MoNoBON Trendlines GroupHow often to you have a drink containing alcohol?NeverBON Trendlines Group(I/We) worried whether (my/our) food would run out before (I/we) got money to buy more.Never trueBON Trendlines GroupStart: 07-28-2024 Health-related behavior (observable entity)Caffeine Use DetailsCVP Physicians Start: 69-21-2211Xaqians use and exposureNon-Smoking Tobacco Use DetailsCV PhysiciansStart: 41-16-3437Ofu Assigned At BirthFemaleCVP PhysiciansSexual OrientationProvidence Hospital General Surgery Lucas SexFemale (finding)[facility] Campustart: 08-84-5512Bwchxoi use and exposureSmokeless tobacco non-userNOMS Healthcare Start: 10-28-2024 End: 56-98-3504Xyoacfbks beverage intakeLifetime non-drinker (finding)[facility] HealthcareNEGATED: Highlighted rowStart: 83-26-5393Kpzdtse smoking status NHIS Never smokerCVP PhysiciansNEGATED: Highlighted rowAlcohol intakeAlcohol Use DetailsCV PhysiciansNEGATED: Highlighted rowStart: 93-50-1862Qzpqwep of tobacco useCurrent non-smokerCV Physicians Clinical Notes 03-30-2022 to 01-09-2025 Note Date & PvptSpidIjetqxjm28-65-1148 NotePatient Education Infectious Disease Pharyngitis Pharyngitis is a sore throat (pharynx). This is when there is redness, pain, and swelling in your throat. Most of the time, this condition gets better on its own. In some cases, you may need medicine. What are the causes? An infection from a virus. ??? An infection from bacteria. ??? Allergies. What increases the risk? Being 5?24 years old. ??? Being in crowded environments. These include: ? Daycares. ? Schools. ? Dormitories. ??? Living in a place with cold temperatures outside. ??? Having a weakened disease-fighting (immune) system. What are the signs or symptoms? Symptoms may vary depending on the cause. Common symptoms include: ??? Sore throat. ??? Tiredness (fatigue). ??? Low-grade fever. ??? Stuffy nose. ??? Cough. ??? Headache. Other symptoms may include: ??? Glands in the neck (lymph nodes) that are swollen. ??? Skin rashes. ??? Film on the throat or tonsils. This can be caused by an infection from bacteria. ??? Vomiting. ??? Red, itchy eyes. ??? Loss of appetite. ??? Joint pain and muscle aches. ??? Tonsils that are temporarily bigger than usual (enlarged). How is this treated? Many times, treatment is not needed. This condition usually gets better in 3?4 days without treatment. If the infection is caused by a bacteria, you may be need to take antibiotics. Follow these instructions at home: Medicines ??? Take ytmb-oqd-mvawoyg and prescription medicines only as told by your doctor. ??? If you were prescribed an antibiotic medicine, take it as told by your doctor. Do not stop taking the antibiotic even if you start to feel better. ??? Use throat lozenges or sprays to soothe your throat as told by your doctor. ??? Children can get pharyngitis. Do not give your child aspirin. Managing pain To help with pain, try: ??? Sipping warm liquids, such as: ? Broth. ? Herbal tea. ? Warm water. ??? Eating or drinking cold or frozen liquids, such as frozen ice pops. ??? Rinsing your mouth (gargle) with a salt water mixture 3?4 times a day or as needed. ? To make salt water, dissolve ??1 tsp (3?6 g) of salt in 1 cup (237 mL) of warm water. ? Do not swallow this mixture. ??? Sucking on hard candy or throat lozenges. ??? Putting a cool-mist humidifier in your bedroom at night to moisten the air. ??? Sitting in the bathroom with the door closed for 5?10 minutes while you run hot water in the shower. General instructions ??? Do not smoke or use any products that contain nicotine or tobacco. If you need help quitting, ask your doctor. ??? Rest as told by your doctor. ??? Drink enough fluid to keep your pee (urine) pale yellow. How is this prevented? Wash your hands often for at least 20 seconds with soap and water. If soap and water are not available, use hand mortgage closing clerk. ??? Do not touch your eyes, nose, or mouth with unwashed hands. Wash hands after touching these areas. ??? Do not share cups or eating utensils. ??? Avoid close contact with people who are sick. Contact a doctor if: ??? You have large, tender lumps in your neck. ??? You have a rash. ??? You cough up green, yellow-brown, or bloody spit. Get help right away if: ??? You have a stiff neck. ??? You drool or cannot swallow liquids. ??? You cannot drink or take medicines without vomiting. ??? You have very bad pain that does not go away with medicine. ??? You have problems breathing, and it is not from a stuffy nose. ??? You have new pain and swelling in your knees, ankles, wrists, or elbows. These symptoms may be an emergency. Get help right away. Call your local emergency services (911 int [place] ??? Do not wait to see if the symptoms will go away. ??? Do not drive yourself to the hospital. Summary ??? Pharyngitis is a sore throat (pharynx). This is when there is redness, pain, and swelling in your throat. ??? Most of the time, pharyngitis gets better on its own. Sometimes, you may need medicine. ??? If you were prescribed an antibiotic medicine, take it as told by your doctor. Do not stop taking the antibiotic even if you start to feel better. This information is not intended to replace advice given to you by your health care provider. Make sure you discuss any questions you have with your health care provider. Document Revised: 06/01/2021 Document Reviewed: 06/01/2021 [employer] Patient Education ? 2023 [employer].[facility] 01-06-2025 NoteSubjective Patient ID: Micheal Brice is a 84 y.o. female who presents for Consult (Incisional Hernia - called for imaging CT abd/pel [facility] on 11/11/2024. (Referral scanned into chart)). HPI 64 years old white female is visiting for incisional hernia. The patient had cholecystectomy 1 year ago through a transumbilical incision. Subsequently she developed [...] Cuff Size: Adult) Pulse 64 Temp 36.6 ???C (97.9 ???F) (Temporal) Resp 15 Physical Exam HENT: Head: [...] the past 36 hours). No follow-ups on file.[facility]10-06-2025 Miscellaneous Notes* Telephone Encounter - Barrett Donahue - 12/22/2024 2:04 PM EDT Pt would like referral to thread separator Baylee Wyman at [facility] please and thank you! documented in this encounterFulton Medical Center- [id number] Telephone encounter Note* Telephone Encounter - Barrett Donahue - 12/22/2024 2:04 PM EDT Pt would like referral to thread separatorsrini Wyman at [facility] please and thank you! [facility]- FultonTfifqeknxs22-07-8981 Telephone encounter Note* Telephone Encounter - Barrett Donahue - 12/22/2024 8:55 AM EDT Pt would like to redo the thyroid labs because of an herbal collagen she's on, and [facility] believes it skews the numbers for tsh. Or should she wait the three months or complete again soon? [facility]- [id number] Miscellaneous Notes* Telephone Encounter - Barrett Donahue - 12/22/2024 8:55 AM EDT Pt would like to redo the thyroid labs because of an herbal collagen she's on, and [facility] believes it skews the numbers for tsh. Or should she wait the three months or complete again soon? documented in this encounterFulton Medical Center- FultonRmgzcyfxil12-25-3309 History of Present illness Narrative* Gaetano Rosen MD - 12/18/2024 9:20 AM EDT Images from the original note were not included. Micheal Brice is a 84 y.o. female No ref. provider found presents with chief complaint of Thyroid Problem and Follow-up (LAB US 10/24/24 PATHOLOGY 11/13/24) HPI: IM : 12/2024 Follow-up visit 12/18/2024 for lab TSH not suppressed but low 0.208, free T4 0.94 ( 0.82-1.77), free T3 3.35 ( 2-4.4, TPO 13, TR ab < 1.1, TG antibody negative, clinically she is euthyroid 11/2024 History of Present Illness The patient [...] Daily RT ergocalciferol (Vitamin D2) 1.25 MG (30468 UT) capsule 1 capsule, Weekly lactobacillus (Culturelle) [...] POINT OF SYSTEM REVIEWED AND NEGATIVE OBJECTIVE: 01/27/2019 12:00 PM 03/05/2019 12:00 PM 03/31/2019 12:00 PM 10/28/2024 8:25 AM 12/04/2024 9:05 AM 12/09/2024 9:39 AM 12/18/2024 9:24 AM Vitals BMI 37.31 kg/m2 37.49 kg/m2 36.95 kg/m2 33.84 kg/m2 35.15 kg/m2 35.74 kg/m2 34.96 kg/m2 BSA (m2) 2.01 m2 2.02 m2 2 m2 1.92 m2 1.88 m2 1.87 m2 1.85 m2 Systolic 146 128 112 131 150 124 110 Diastolic 86 80 76 70 92 85 80 Heart Rate 82 54 57 87 SpO2 99 % 94 % Resp 16 18 Height (in) 5' 2 5' 2 5' 2 5' 2 5' 0.5 5' 5' Weight (lb) 204 205 202 185 183 183 179 Visit Report Report Report Report Report Physical Exam Constitutional: Appearance: [...] orders for this visit: Subclinical hyperthyroidism - T3, free; Future - T4, free; Future - TSH; Future Repeated lab TSH low but not suppressed, free T4 free T3 within normal limits, no need for antithyroid medication, we will watch and repeat thyroid function tests in 3 months. Thyroid nodule Had 39 mm left nodule, status post biopsy to follow with her ENT Follow up in about 3 months (around 03/20/2025). documented in this encounterFulton Medical Center- FultonLvicqnsgov12-75-9283 NotePatient Education Orthopedics Joint Pain Joint pain can be caused by many things. It is likely to go away if you follow instructions from your doctor for taking care of yourself at home. Sometimes, you may need more treatment. Follow these instructions at home: Managing pain, stiffness, and swelling ??? If told, put ice on the painful area. To do this: ? If you have a removable elastic bandage, sling, or splint, take it off as told by your doctor. ? Put ice in a plastic bag. ? Place a towel between your skin and the bag. ? Leave the ice on for 20 minutes, 2?3 times a day. ? Take off the ice if your skin turns bright red. This is very important. If you cannot feel pain, heat, or cold, you have a greater risk of damage to the area. ??? Move your fingers or toes below the painful joint often. ??? Raise the painful joint above the level of your heart while you are sitting or lying down. ??? If told, put heat on the painful area. Do this as often as told by your doctor. Use the heat source that your doctor recommends, such as a moist heat pack or a heating pad. ? Place a towel between your skin and the heat source. ? Leave the heat on for 20?30 minutes. ? Take off the heat if your skin gets bright red. This is especially important if you are unable tofeel pain, heat, or cold. You may have a greater risk of getting burned. Activity ??? Rest the painful joint for as long as told by your doctor. Do not do things that cause pain or make your pain worse. ??? Begin exercising or stretching the affected area, as told by your doctor. Ask your doctor what types of exercise are safe for you. ??? Return to your normal activities when your doctor says that it is safe. If you have an elastic bandage, sling, or splint: ??? Wear it as told by your doctor. Take it only as told by your doctor. ??? Loosen it your fingers or toes below the joint: ? Tingle. ? Become numb. ? Get cold and blue. ??? Keep it clean. ??? Ask your doctor if you should take it off before bathing. ??? If it is not waterproof: ? Do not let it get wet. ? Cover it with a watertight covering when you take a bath or shower. General instructions ??? Take yjho-ilr-tqsqehc and prescription medicines only as told by your doctor. This may include medicines taken by mouth or applied to the skin. ??? Do not smoke or use any products that contain nicotine or tobacco. If you need help quitting, ask your doctor. ??? Keep all follow-up visits as told by your doctor. This is important. Contact a doctor if: ??? You have pain that gets worse and does not get better with medicine. ??? Your joint pain does not get better in 3 days. ??? You have more bruising or swelling. ??? You have a fever. ??? You lose 10 lb (4.5 kg) or more without trying. Get help right away if: ??? You cannot move the joint. ??? Your fingers or toes tingle, become numb. or get cold and blue. ??? You have a fever along with a joint that is red, warm, and swollen. Summary ??? Joint pain can be caused by many things. It often goes away if you follow instructions from your doctor for taking care of yourself at home. ??? Rest the painful joint for as long as told. Do not do things that cause pain or make your pain worse. ??? Take cvim-ihc-ecsxqto and prescription medicines only as told by your doctor. This information is not intended to replace advice given to you by your health care provider. Make sure you discuss any questions you have with your health care provider. Document Revised: 06/15/2020 Document Reviewed: 06/16/2020 [email or web address] Patient Education ? 2023 [employer].[facility] 12-09-2024 History of Present illness Narrative* Cuauhtemoc Jacobo MD - 12/09/2024 9:50 AM EDT Subjective Patient ID: Micheal Brice is a [...] the morning. ergocalciferol (Vitamin D2) 1.25 MG (60921 UT) capsule Take 1 capsule by mouth [...] will need a thyroidectomy. documented in this encounterFulton [facility] Center- [id number] Telephone encounter Note* Telephone Encounter - Cuauhtemoc Jacobo MD - 12/08/2024 10:26 AM EDT F/U tomorrow as scheduled. I have the information I need for the appointment [facility]- [id number] Miscellaneous Notes* Telephone Encounter - Cuauhtemoc Jacobo MD - 12/08/2024 10:26 AM EDT F/U tomorrow as scheduled. I have the information I need for the appointment * Telephone Encounter - Twila Jacobo - 12/08/2024 10:02 AM EDT Pt called in. She is scheduled to see you tomorrow. Her question is she had a FNA done 11/13/24. She then saw Dr Rosen 12/04/24. Pt said she was told Dr Rosen did not have the results of the biopsy and had her go the same day to [facility] for a blood test. They told her [...] this has been handled. documented in this encounterFulton Medical Center- FultonPqqubmzagh93-07-0526 Telephone encounter Note* Telephone Encounter - Twila Jacobo - 12/08/2024 10:02 AM EDT Pt called in. She is scheduled to see you tomorrow. Her question is she had a FNA done 11/13/24. She then saw Dr Rosen 12/04/24. Pt said she was told Dr Rosen did not have the results of the biopsy and had her go the same day to [facility] for a blood test. They told her [...] with the way this has been handled. [facility]- [id number] NotePatient Education Orthopedics Ganglion Cyst A ganglion cyst is a non-cancerous, fluid-filled lump of tissue that occurs near a joint, tendon, or ligament. The cyst grows out of a joint or the lining of a tendon or ligament. Ganglion cysts mostoften develop in the hand or wrist, but they can also develop in the shoulder, elbow, hip, knee, ankle, or foot. Ganglion cysts are ball-shaped or egg-shaped. Their size can range from the size of a pea to largerthan a grape. Increased activity may cause the [...] against the cyst if it is on yourfoot. Follow these instructions at home: ??? Do not press on the ganglion cyst, poke it with a needle, or hit it. ??? Take rdyv-vda-mgkbavf and prescription medicines only as told by [...] provider. Document Revised: 05/26/2020 Document Reviewed: 05/26/2020 [email or web address] Patient Education ? 2023 [employer]ish.[facility] 11-19-2024 Hospital Discharge instructions Follow Up Care 11/19/2024 13:05:19 With:OCTAVIA JULIEN, ARPAN Huizar Address: [address] [place] [address] When: only if needed [facility] 09-01-2025 History of Present illness Narrative* Gaetano Rosen MD - 12/04/2024 9:50 AM [...] Daily RT ergocalciferol (Vitamin D2) 1.25 MG (67723 UT) capsule 1 capsule, Weekly lactobacillus (Culturelle) [...] 2 weeks (around 12/18/2024). documented in this encounterFulton Medical Center- [id number] History of Present illness Narrative* Cuauhtemoc Jacobo MD - 10/28/2024 8:40 AM EDT Subjective Patient ID: Micheal Brice is a 84 y.o. female who presents for Thyroid Nodule Pt reports she has been having heat intolerance and part of W/U included a thyroid US. TFTs done, but not provided. US shows a [id number] left inf lobe nodule with microcalcifications. No TRADS scoreprovided. Radiology report notes that there has been [...] the morning. ergocalciferol (Vitamin D2) 1.25 MG (73278 UT) capsule Take 1 capsule by mouth [...] and tx of hyperthyroidism documented in this encounterFulton Medical Center- FultonDouocobmef33-07-7327 NotePatient Education Endocrinology Thyroid Nodule A thyroid nodule is an isolated growth of thyroid cells that forms a lump in the thyroid gland. Thethyroid gland is a butterfly-shaped gland found in the lower front of the neck. It sends chemical messengers (hormones) through the blood to all parts of the body. These hormones are important in regulating body temperature and helping the body use energy. Thyroid nodules are common. Most are not cancerous (are benign). You may have one nodule or severalnodules. There are different types of thyroid nodules. [...] or nodules. If a nodule is benign, treatmentmay not be necessary. Your health care provider [...] into the area of the nodule to destroythe cells. Ablation with heat may also be used. This is called thermal ablation. ??? Radioactive iodine. In this treatment, radioactive iodine is given as a pill or liquid that youdrink. This substance causes the thyroid nodule to shrink. ??? Surgery to remove the nodule or nodules. Part or all of your thyroid gland may also need to be removed. ??? Medicines to treat hyperthyroidism. Follow these instructions at home: ??? Pay attention to any changes in your thyroid nodule or nodules. ??? Take mefq-rdf-yvoocvk and prescription medicines only as told by [...] if it goes away without treatment. If anodule contin (more content not included)...[facility]08-05-2025 NoteGeneral Surgery Office/Clinic Note Chief Complaint consultation for lipoma HPI Staff 84 year old female presents on consultation from Camila Carlos for right upper arm mass. Reports noting mass approximately 10 years ago. Verbalized mass has been stable in size. Denies discomfort or tenderness. US completed at [facility] [place] 04/28/24 with probable lipoma. History of Present [...] swallowing difficulties, no hearing loss, no ear infection(s),no nose bleeds. Cardiovascular: normal blood pressure, no [...] plan excisional biopsy under local anesthesia at [facility], informed consent obtained. 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 Condition: stable impression Pseudophakia: Z96.1. Bilateral. Condition: stable impression Hypertension: I10 [facility] Work Phone: 1(283) 367-403005-12-2025 History of Present illness Narrative* Encounter Date [...] of light. Patient denies any ocular pain. [facility] Work Phone: 1(563) 210-922705-12-2025 Instructions* Date Instruction Additional Infor pamela Return 6 months DFE/OCT/ Colors Related to Nexdtve age-related mclr degn, bilateral, intermed dry stage Impression/Plan Related to Nexdt ve age-related mclr degn, bilateral, intermed dry stage Impression/Plan Related to Choro idal Nevus OS Impression/Plan Related to Pseud ophakia Impression/Plan Related to Hyper tension [facility] Work Phone: 1(369) 833-333303-28-2025 NoteSubjective: Patient ID: Micheal Brice is a [...] Authorized by: Luis Felipe Lopes MD CPT 30874 - Large Joint Arthrocentesis: Consent given by: [...] expedite correspondence this note was generated by [employer] voice recognition software. Some grammatical or spelling errors may occur using the system. [1] There is no problem list on file for this patient. AUTHENTICATED BY LUIS FELIPE LOPES, ON 06/13/2024 10:56:26[facility] 06-13-2024 History of Present illness [...] Authorized by: Luis Felipe Lopes MD CPT 12217 - Large Joint Arthrocentesis: Consent given by: [...] expedite correspondence this note was generated by [employer] voice recognition software. Somegrammatical or spelling errors may occur using the system. [1] There is no problem list on file for this patient. documented in this [id number] NotePatient Education Cardiovascular Hypertension, Adult Hypertension is [...] Keep all follow-up visits. Medicines ??? Take fygp-lsp-owhfodq and prescription medicines only as told by [...] ??? Hypertension is a (more content not included)...[facility] 08-03-2023 History of Present illness Narrative* Osei Hancock RN - 08/03/2023 7:15 PM EDT Patient escorted off unit and discharged at this time. No additional requests from justowriter operator. * Chloe Torres RN - 08/03/2023 6:40 PM EDT Shadowgraph Scale Operator reviewed discharge instructions with the patient. [...] requested to put medicated honey on wound. Shadowgraph Scale Operator spoke with Dr. Castañeda and he states to only use iodoform on wound. No medicated honey. Shadowgraph Scale Operator notified the patient who is agreeable. [...] Torres RN - 08/03/2023 11:44 AM EDT Shadowgraph Scale Operator arrived to bedside at this time after notification from [facility] that patient had accidentally removed IV. Patient states they accidentally pulled IV out when they were using the restroom. Site assessed, no complications. Care ongoing. * Chloe Torres RN - 08/03/2023 9:01 AM EDT Patient is walking the halls independently at this time. * Radhika Meredith MD - 08/03/2023 6:33 AM EDT Images from the original note were not included. [address] [place], [place], [address] Progress Note Date: 08/03/2023 Patient name: Micheal [...] Foot surgery (Right); Colonoscopy; Tonsillectomy and adenoidectomy; [place] tooth extraction; Thumb amputation (Right); Finger replantation [...] clubbing or edema DIAGNOSTICS: Laboratory Testing: See [facility] EMR for lab data No results [...] sodium chloride 0.9 % 50 mL IVPB (Thwm3Jte) 3,375 mg IntraVENous Q8H Luis Felipe Castañeda [...] this chart was generated using voice recognition [employer] dictation software. Although every effort was made to ensure the accuracy of this automated co founder and director, some errors in co founder and director may have occurred. Radhika Meredith MD 08/03/2023 6:33 AM * Chloe Torres [...] Assessment: (P) Calm Intervention: (P) Prayer (assurance of)/[place], Discussed belief system/adventism practices/ly, Discussed illness injury and it s [...] and wound care. Critical Care Time: 0 [facility] Advanced Care Planning documentation: [x] I have [...] the patient's medical record. [DOES NOT SATISFY [facility] PERFORMANCE] Michelle Cox MD , M.D. * [...] Intake/Output Summary (Last 24 hours) at 08/01/2023 1500 Last data filed at 08/01/2023 0249 Gross [...] loss Fluid Accumulation: No significant fluid accumulation Lasting Machine Operator Strength: Not Performed Nutrition Assessment: Increased nutrient needs r/t acute injury/trauma AEB surgical site infection. Pt underwent cholecystectomy and hernia repair 2 weeks ago and admitted for infection at surgical site. Pt reported a good appetite and no N/V/D. Active b/s, no edema noted. Pt reported weight prior to surgery 198# and istrying to lose weight. Shadowgraph Scale Operator educated pt on importance of maintaining [...] Measures: Height: 157.5 cm (5' 2 ) Elmer Body Weight (IBW): 110 lbs (50 kg) [...] Used for Energy Requirements: Current Energy (kcal/day): 4355-2190 (15-18) Weight Used for Protein Requirements: Elmer Protein (g/day): 75-90 (1.5-1.8) Method Used for [...] Planning: Too soon to determine Yessy Dyer It Coordinator Contact: [phone] * Angela Nguyen RN - 07/31/2023 10:46 PM EDT Patient's son, Noe, called for an update. Update given after confirming with pt that it was ok for justowriter operator to speak with him. * Angela Nguyen [...] reach. Care ongoing. documented in this encounterB[facility] Hospital Discharge instructions* Discharge Instructions* Chloe [...] most local grocery stores, pharmacies, and chain Sidelines-stores. If you have any questions about your diet or nutrition, call the hospital and ask for the dietitian. General diet, encourage fluids * Discharge Instr - MALAIKA* Radhika Meredith MD - 08/03/2023 4:48 AM EDT Continuity [...] for healthcare treatment Living will;Durable power of state attorney for health care No, copy requested [...] OMPHALECTOMY performed by Ramon Olea MD at [facility] OR ABDOMINAL ADHESION SURGERY ABDOMINAL EXPLORATION SURGERY CHOLECYSTECTOMY, LAPAROSCOPIC N/A 06/20/2023 CHOLECYSTECTOMY LAPAROSCOPIC performed by Ramon Olea MD at [facility] OR COLONOSCOPY FINGER REPLANTATION Right index with ori placement and removal FOOT SURGERY Right dislocation STOMACH SURGERY N/A 07/17/2023 SINGLE ANASTOMOSIS OF TRANSVERSE COLON performed by Ramon Olea MD at [facility] OR THUMB AMPUTATION Right partial TONSILLECTOMY AND ADENOIDECTOMY TOTAL KNEE ARTHROPLASTY Right UMBILICAL HERNIA REPAIR N/A 07/17/2023 HERNIA UMBILICAL REPAIR - REVISION UMBILICAL INCISION, Ricther hernia repair with tranverse colon anastomosis performed by Ramon Olea MD at [facility] OR WISDOM TOOTH EXTRACTION Immunization History: There [...] MENTAL STATUS:} IV Access: { MALAIKA IV ACCESS:946133679} Nursing Mobility/ADLs: Walking {CHP DME ADLs:920048890} Transfer {P DME ADLs:239772667} Bathing {CHP DME ADLs:317062445} Dressing {CHP DME ADLs:397518077} Toileting {CHP DME ADLs:472193486} Feeding {P DME ADLs:932344945} Arch Support Technician {CHP DME ADLs:178850529} Med Delivery { MALAIKA MED Delivery:919486423} Wound Care Documentation and Therapy: Incision 07/31/23 Abdomen Lower;Medial (Active) Dressing Status New dressing applied 08/03/23 002 Dressing Change Due 08/03/23 08/03/23 002 Incision Cleansed Soap and water 08/03/23 002 Dressing/Treatment Packing/iodaform packing;Non-adherent 08/03/23 002 Margins Approximated 08/03/23 002 Incision Assessment Dry;Erythema 08/03/23 002 Drainage Amount Scant (moist but unmeasurable) 08/03/23 002 Drainage Description Clear;Thin 08/02/23 1215 Odor None 08/03/23 002 Chelsie-incision Assessment Dry/flaky;Intact;Warm 08/03/23 002 Number of days: 2 Elimination: Continence: Bowel: {YES / NO:} Bladder: {YES / NO:} Urinary Catheter: {Urinary Catheter:001439069} Colostomy/Ileostomy/Ileal Conduit: {YES / NO:} Date of Last BM: Intake/Output Summary (Last 24 hours) at 08/03/2023 0448 Last data filed at 08/02/2023 1845 Gross per 24 hour Intake 2816.33 ml Output -- Net 2816.33 ml I/O last 3 completed shifts: In: 2816.3 [P.O.:800; I.V.:1637; IV Piggyback:379.3] Out: - Safety Concerns: { MALAIKA Safety Concerns:857114109} Impairments/Disabilities: { MALAIKA Impairments/Disabilities:382115526} Nutrition Therapy: Current Nutrition Therapy: { MALAIKA Diet List:397849745} Routes of Feeding: {[facility] DME Other Feedings:335999408} Liquids: {Turn Machine Operator liquid thickness:74242} Daily Fluid Restriction: {[facility] DME Yes amt example:384983066} Last Modified Barium Swallow with Video (Video Swallowing Test): {Done Not Done Date:599668991} Treatments at the Time of Hospital Discharge: Respiratory Treatments: Oxygen Therapy: {Therapy; copd oxygen:71014} Ventilator: {[facility] Vent List:090871818} Rehab Therapies: {THERAPEUTIC INTERVENTION:3386963239} Weight Bearing Status/Restrictions: {[facility] Weight Bearin} Other Medical Equipment (for information only, NOT a DME order): {EQUIPMENT:988694683} Other Treatments: Patient's personal belongings (please select all that are sent with patient): {[facility] DME Belongings:794528924} RN SIGNATURE: {Esignature:748104629} CASE MANAGEMENT/SOCIAL WORK SECTION Inpatient Status Date: Readmission Risk Assessment Score: Readmission Risk Risk of Unplanned Readmission: 11 Discharging to Facility/ Agency Name: Address: Phone: Fax: Dialysis Facility (if applicable) Name: Address: Dialysis Schedule: Phone: Fax: Paint Formulator/Egg Buyer signature: {Esignature:076243707} PHYSICIAN SECTION Prognosis: {Prognosis:2623653404} Condition at Discharge: { Patient Condition:738238144} Rehab Potential (if transferring to Rehab): {Prognosis:7844922794} Recommended Labs or Other Treatments After Discharge: Physician Certification: I certify the above information and transfer of Micheal Brice is necessary for the continuing treatment of the diagnosis listed and that she requires [facility] for {GREATER/LESS:026879417} 30 days. Update Admission H&P: {CHP DME Changes in HandP:265746917} PHYSICIAN SIGNATURE: * Attachments The following attachments cannot be sent through Care Everywhere. * Abscess: Skin (Yakut) documented in this encounterB[facility] History of Present illness Narrative* Rosibel Caba RN - 07/18/2023 3:30 PM EDT Patient discharged home at this time. * Chloe Ford RN - 07/18/2023 3:16 PM EDT Reviewed discharge instructions with patient. Patient aware of need to tow picker prescription. Reviewed new medication and side effects [...] at this time. * Yusuf Monson RD, LD - 07/18/2023 7:31 AM EDT [...] muscle mass loss Fluid Accumulation: Mild Extremities Lasting Machine Operator Strength: Not Performed Nutrition Assessment: Food and [...] Measures: Height: 157.5 cm (5' 2 ) Elmer Body Weight (IBW): 110 lbs (50 kg) [...] Used for Energy Requirements: Current Energy (kcal/day): 3424-3490 (18-22) Weight Used for Protein Requirements: Elmer Protein (g/day): 65-75 (1.3-1.5) Method Used for [...] this time Yusuf Monson RD, AMANUEL Contact: [phone] * Yessy Montes RN - 07/18/2023 6:55 AM EDT Shadowgraph Scale Operator to bedside to complete morning assessment. Upon entry to room, pt sitting up in chair, respirations even and unlabored while on room air. Vitals obtained and assessment completed, see flow sheet for details. Pt denies any pain at this time. Pt denies needs from justowriter operator at this time. Call light in [...] PM EDT Patient transported via cart to [facility] Room 327 with RN and belongings. Staff [...] voicemail set up. documented in this encounterB[facility] Hospital course Narrative* Ramon Olea MD [...] and follow up. documented in this encounterB[facility] Hospital Discharge instructions* Discharge Instructions* Chloe [...] if you have questions or problems @ [phone] * Discharge Instr - Activity* Chloe Ford [...] Care Everywhere. * Abdominal Hernia Repair: Post-op (Yakut) * Surgical Site Infections: Prevention: General Info (Yakut) documented in this encounterBON [facility]02-21-[facility]23 History of Present illness Narrative* Luis Felipe [...] did advise her we really want to tow picker her exercise and activity level. Wewill see her in a year for reevaluation. No orders of the defined types were placed in this encounter. Return in about 1 year (around 05/09/2023) for Annual physical, xrays. Note: To expedite correspondence this note was generated by [employer] voice recognition software. Somegrammatical or spelling errors may occur using the system. documented in this [id number] Telephone encounter Note* Telephone Encounter - Niurka Fitzgerald MA - 04/28/2022 3:19 PM EST Patient called with question with whether she should finish keflex , she was instructed to finish antibiotic . [id number] Miscellaneous Notes* Telephone Encounter - Niurka Fitzgerald MA - 04/28/2022 3:19 PM EST Patient called with question with whether she should finish keflex , she was instructed to finish antibiotic . documented in this [id number] History of Present illness Narrative* Luis Felipe [...] expedite correspondence this note was generated by [employer] voice recognition software. Somegrammatical or spelling errors may occur using the system. documented in this [id number] NotePROCEDURE: XR ELBOW RT MIN 3 VIEWS [...] Electronically authenticated by: MIGEL RAMSEY Date: 2022-03-30 12:47[id number] NotePROCEDURE: XR KNEE RT 4V or > [...] Electronically authenticated by: MIGEL RAMSEY Date: 2022-03-30 12:42[facility]* Clinical Note Date No Information [facility] Work Phone: Discharge summary* Clinical Note Date No Information [facility] Work Phone: Evaluation + Plan note Future Appointments Appointment Date:04/07/2024 01:00:00 PM Scheduled Provider: Location:[facility] Appointments Appointment Date:04/13/2025 09:30:00 AM Scheduled Provider: Location:[facility] Appointment Type: Medicare Wellness Subsequent Appointment Date:04/13/2025 10:20:00 AM Scheduled Provider:Camila Max Location:[facility] Appointment Type:[facility] Evaluation + Plan note Future Appointments Appointment Date:10/22/2024 09:20:00 AM Scheduled Provider:KIA SAMUEL CNP Location:[facility] Appointment Type: Open Appointment Date:04/13/2025 09:30:00 AM Scheduled Provider: Location:[facility] Appointment Type: Medicare Wellness Subsequent Appointment Date:04/13/2025 10:20:00 AM Scheduled Provider:Camila Max Location:[facility] Appointment Type:[facility] evaluation + Plan note Future Appointments Appointment Date:04/13/2025 09:30:00 AM Scheduled Provider: Location:[facility] Appointment Type: Medicare Wellness Subsequent Appointment Date:04/13/2025 10:20:00 AM Scheduled Provider:Camila Max Location:[facility] Appointment Type:[facility] evaluation note* Diagnosis History of total right knee replacement- Primary documented in this encounter [facility] note* Diagnosis Incarcerated umbilical hernia- Primary Umbilical [...] mild degree documented in this encounter [facility] note* Diagnosis Abscess of postoperative wound of abdominal wall- Primary Post-operative wound abscess Other postoperative infection Failure of outpatient treatment Abscess of umbilicus Cellulitis and abscess of trunk Abscess of postoperative wound of abdominal wall documented in this encounter [facility] note* Diagnosis 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, lumbar region, without neurogenic claudication Primary osteoarthritis of left knee [facility] Diagnosis Thyroid mass- Primary Unspecified disorder of thyroid documented in this encounter [facility] HealthcareEvaluation noteNo assessment information availableAccess [facility] [place] Work Phone: Evaluation note* Diagnosis Subclinical hyperthyroidism- Primary Thyrotoxicosis without mention of goiter or other cause, without mention of thyrotoxic crisis or storm Thyroid nodule Nontoxic uninodular goiter documented in this encounter [facility] HealthcareEvaluation note* Diagnosis Thyroid mass- Primary Unspecified disorder of thyroid documented in this encounter [facility] HealthcareEvaluation note* Diagnosis Subclinical hyperthyroidism- Primary Thyrotoxicosis without mention of goiter or other cause, without mention of thyrotoxic crisis or storm Thyroid nodule Nontoxic uninodular goiter documented in this encounter [facility] HealthcareHistory and physical note* Clinical Note Date No Information [facility] Physicians Work Phone: Hospital course Narrative No data available for this section [facility] Discharge instructions No data available for this section [facility] data available for this section [facility] note* Clinical Note Date No Information [facility] Work Phone: Rebjty for referral (narrative)* Reason For Referral No Information [facility] Work Phone: Reszky for referral (narrative)No reason for referral information availableAccess [facility] [place] Work Phone: Summary Purpose Family History No Family History Records Found Family Member Type Diagnosis Age At Onset Mother Problem (finding) Hypertension MotherProblem (finding)High cholesterol Advance Directives No Advanced Directives Records FoundLatest Code Status on File Code StatusDate ActivatedDate InactivatedCommentsFull Code07/17/2023 12:52 PMCode StatusDate ActivatedDate InactivatedCommentsFull Code07/17/2023 8:02 AM07/17/2023 12:52 PMFull Code06/20/2023 7:27 AM06/22/2023 11:26 AMFull Code06/01/2015 1:08 PM 06/02/2015 6:50 PMNameRelationshipHealthcare Agent RelationshipCommunicationClint DanvilleChildPrimary Decision Maker* Code StatusDate ActivatedDate InactivatedCommentsFull Code07/31/2023 6:26 PMCode StatusDate ActivatedDate InactivatedCommentsFull Code07/17/2023 12:52 PM07/18/2023 5:45 PMFull Code07/17/2023 8:02 AM07/17/2023 12:52 PMFull Code06/20/2023 7:27 AM 06/22/2023 11:26 AMFull Code06/01/2015 1:08 PM06/02/2015 6:50 PMNameRelationship Healthcare Agent RelationshipCommunicationClint DanvilleChildPrimary Decision Maker * * Code StatusDate ActivatedDate InactivatedCommentsFull Code07/31/2023 6:26 PM 08/03/2023 9:37 PMCode StatusDate ActivatedDate InactivatedCommentsFull Code 07/17/2023 12:52 PM07/18/2023 5:45 PMFull Code07/17/2023 8:02 AM07/17/2023 12:52 PM Full Code06/20/2023 7:27 AM06/22/2023 11:26 AMFull Code06/01/2015 1:08 PM06/02/2015 6:50 PMNameRelationshipHealthcare Agent RelationshipCommunicationClint [place] ChildPrimary Decision Maker* * Directive Yes / No Effective Date File Name No Information TypeDate RecordedPatient RepresentativeExplanationAdvance Directives and Living Will Power of AttorneyAdvance Directives and Living Will Living Will Reason for Referral SpecialtyDiagnoses / ProceduresReferred By ContactReferred To ContactWound Care Diagnoses Abscess of umbilicus Abscess of postoperative wound of abdominal wall Radhika Meredith MD [address] [place] [address] Referral IDStatusReasonStart DateExpiration DateVisits RequestedVisits [id number] Specialty Services Required / Scheduling Instructions [facility] QuestionAnswer Reason For External Referral? Location Comments The [...] section and content) DATE CREATED AUTHOR 04/01/2022 [facility] DATE CREATED AUTHOR AUTHOR'S ORGANIZ ATION 06/22/2023 [facility] DATE CREATED AUTHOR AUTHOR'S ORGANIZ ATION 08/07/2023 [facility] DATE CREATED AUTHOR AUTHOR'S ORGANIZ ATION 08/28/2023 [facility] DATE CREATED AUTHOR AUTHOR'S ORGANIZ ATION 04/12/2024 [facility] DATE CREATED AUTHOR AUTHOR'S ORGANIZ ATION 06/18/2024 [facility] DATE CREATED AUTHOR AUTHOR'S ORGANIZ ATION 07/30/2024 [facility] DATE CREATED AUTHOR AUTHOR'S ORGANIZ ATION 10/16/2024 [facility] DATE CREATED AUTHOR AUTHOR'S ORGANIZ ATION 10/18/2024 [facility] DATE CREATED AUTHOR AUTHOR'S ORGANIZ ATION 10/24/2024 [facility] DATE CREATED AUTHOR AUTHOR'S ORGANIZ ATION 10/26/2024 [facility] DATE CREATED AUTHOR AUTHOR'S ORGANIZ ATION 10/29/2024 [facility] DATE CREATED AUTHOR AUTHOR'S ORGANIZ ATION 11/11/2024 [facility] DATE CREATED AUTHOR AUTHOR'S ORGANIZ ATION 11/21/2024 [facility] DATE CREATED AUTHOR AUTHOR'S ORGANIZ ATION 11/23/2024 [facility] DATE CREATED AUTHOR AUTHOR'S ORGANIZ ATION 11/24/2024 [facility] DATE CREATED AUTHOR AUTHOR'S ORGANIZ ATION 12/22/2024 [facility] DATE CREATED AUTHOR AUTHOR'S ORGANIZ ATION 12/25/2024 [facility] DATE CREATED AUTHOR AUTHOR'S ORGANIZ ATION 01/10/2025 [facility] DATE CREATED AUTHOR AUTHOR'S ORGANIZ ATION 01/16/2025 [facility] DATE CREATED AUTHOR AUTHOR'S ORGANIZ ATION 01/21/2025 [facility] Reason for Visit (unrecogniz ed section and content) ReasonCommentsPainFollow-upPatient is c/o right knee pain and swelling , she notes she feel the beginning of the month , she has tried IBU for painReason Onset DateCommentsMedication [id number] Patient is here for a f/u for her right knee and issues she was having with cellulitis, patient notes she is done with her antibiotic and notes her right leg feels great.she also wants to know when she can stop wearing her compression socksSpecialtyDiagnoses / ProceduresReferred By ContactReferred To Contact Diagnoses Wound dehiscence Wound dehiscence [T81.30XA] Procedures MD RPR AA HERNIA RECR < 3 CM REDUCIBLE HERNIA UMBILICAL REPAIR - REVISION UMBILICAL INCISION, POSSIBLE HERNIA REPAIR, POSSIBLE UMBILECTOMY Ramon Olea MD [address] [place] [address] [facility] [address] [place] [address] Referral IDStatusReasonStart DateExpiration DateVisits RequestedVisits [id number] ProblemHernia repaired done July 16. Pt has been going on since 3 days after the surgery. Pt denied anyfever. Pt stated she is fatigued, achy, and has not been feeling herself.ReasonComments PainPainPatient is c/o right knee pain , hx RTKA . She notes she feels like shocking sensation from right hip to right foot. Also notes she is feeling some pain from behind her left knee.ReasonCommentsThyroid NoduleReasonCommentsThyroid ProblemNEW REF/US FNA PATHSpecialtyDiagnoses / ProceduresReferred By Contact Referred To ContactEndocrinology Diagnoses Nontoxic multinodular goiter Procedures MD OFFICE/OUTPATIENT NEW MODERATE MDM 45 MINUTES Camila Carlos NP [address] [place] [address] Phone: tel: Gaetano Rosen MD [address] [place] [address] Phone: tel: fax: Referral IDStatusReasonStart DateExpiration DateVisits RequestedVisits [id number] DateCommentsblood results 12/08/2024ReasonCommentsThyroid ProblemFollow up [facility] 11/13/24 ROME Pulido reportReasonCommentsThyroid ProblemFollow-upLAB US 10/24/24 PATHOLOGY 11/13/24 ReasonOnset DateCommentsAdvice Only12/22/2024ReasonOnset DateCommentsReferral 12/22/2024 Care Teams (unrecognized sec tion and content) Team MemberRelationshipSpecialtyStart DateEnd Date No, Physician [facility] PCP - General04/18/22Team MemberRelationshipSpecialtyStart DateEnd Date No, Physician [facility] PCP - General04/18/22Team MemberRelationshipSpecialtyStart DateEnd Date aCmila Carlos APRN - NP [address] [place] [address] PCP - General06/20/23Team MemberRelationshipSpecialtyStart DateEnd Date Camila Carlos APRN - NP [address] [facility] [place] [address] PCP - General06/20/23Team MemberRelationshipSpecialtyStart DateEnd Date Camila Carlos APRN - ENDOSCOPY RN [address] [place] [address] PCP - General06/20/23Team MemberRelationshipSpecialtyStart DateEnd Date Camila Carlos Zeoy, NUTS AND BOLTS ASSEMBLER [address] [place] [address] [facility]CP - [facility]06/13/24 Name Effective Dates (start - stop) Status Members No Information Team MemberRelationshipSpecialtyStart DateEnd Date Camila Carlos NP [address] [place] [phone] Referring PhysicianNorth[facility]10/28/24Team MemberRelationshipSpecialtyStart DateEnd Date Camila Carlos NP [address] [place] [phone] Referring PhysicianNorthside Hospital [place]10/28/24 Team Status: Inactive Member Role Status Dates Cuauhtemoc Jacobo Jr, MD Attending Provider Active Start: November 13, 2024 End: November 13, 2024 Team Status: Inactive Member Role Status Dates Alfonso Dudley MD [facility] Attending Provider Active Start: November 19, 2024 End: November 19, 2024Team MemberRelationshipSpecialtyStart DateEnd Date Camila Carlos NP [address] [place] [phone] Referring [facility]icianQu[facility] Medicine10/28/24Team MemberRelationshipSpecialtyStart DateEnd Date Camila Carlos NP [address] [place] [address] Referring PhysicianNorthside Hospital [place]10/28/24Team MemberRelationshipSpecialtyStavondale DateEnd Date Camila Carlos NP [address] [place] [phone] Referring PhysicianNorthside Hospital [place]10/28/24Te MemberRelationsRonald Reagan UCLA Medical CenterpecialtyStavondale DateEnd Date Camila Carlos NP [address] [place] [address] [phone] Referring PhysicianNorthside Hospital [place]10/28/24Te MemberRelationsRonald Reagan UCLA Medical CenterpecialtyStavondale DateEnd Date Camila Carlos NP [address] [place] [address] [phone] Referring PhysicianNorthside Hospital [place]10/28/24 Ordered Prescriptions (unrec ognized section and content) PrescriptionSigDispensedRefillsStart DateEnd HYDROcodone-acetaminophen (NORCO) 5-325 MG per tablet Indications:Incarcerated ventral hernia,Post-op painTake 1 tablet by mouth every 6 hours as needed for Pain (may use 1 or 2) for up to 7 days. Max Daily Amount: 4 tablets 12 tablet //10/2023 Scheduled Active and Recently Administ ered Medications (unrecognized section and content) Medication Order07/15/// acetaminophen (TYLENOL) tablet 650 mg (COMPLETED) 650 mg, Oral, ONCE, 1 dose, On Sun07/17/23 at 0830, Maximum dose of acetaminophen is 4000 mg from all sources in 24 hours., Pre-op (day of surgery) * 0828 (Given - Provider: Elva Hernandez RN) acetaminophen (TYLENOL) tablet 650 mg (COMPLETED) 650 mg, Oral, ONCE, 1 dose, On Sun07/18/23 at 0045, Maximum dose of acetaminophen is 4000 mg from all sources in 24 hours. * 0025 (Given - Provider: Angela Nguyen RN) amLODIPine (NORVASC) tablet 5 mg 5 mg, Oral, DAILY, First dose on Sun07/18/23 at 0900, Until Discontinued * 0846 (Given - Provider: Yessy Montes, SARKIS) ceFAZolin (ANCEF) 2000 mg in 0.9% sodium chloride 100 mL IVPB (COMPLETED) 2,000 mg, IntraVENous, HAND ZIPPER TRIMMER TO O.R., 1 dose, On Sun07/17/23 at 0830, Antimicrobial Indications: Surgical Prophylaxis, Administer within 1 hour prior to incision. Recommend to repeat in 3-4 hours after initial dose if still intra- op., Pre-op (day of surgery) * 1020 (New Bag - Provider: Krys Heart RN - Comment: body and fender mechanic apprentice to the OR) * 1350 (Stopped - Provider: Fabi Duran RN - [...] provider prior to any invasive procedure., Post-op * 0846 (Given - Provider: Yessy Montes, SARKIS) lactobacillus (CULTURELLE) capsule 1 capsule 1 capsule, Oral, 2 TIMES DAILY WITH MEALS, First dose on Sun07/17/23 at 1700, Until Discontinued, Do not add to warm or hot foods or beverages. Caps may be opened & mixed in a cool beverage or sprinkled onto baby food or applesauce. Mix entire packet content into cool food or drink until dissolved. * 1643 (Given - Provider: Fabi Duran, SARKIS) * 0846 (Given - Provider: Yessy Montes, SARKIS) * 1700 (Due) Medication Order07/15////03/2023 dextrose 5 % and 0.45 % NaCl with KCl 20 mEq infusion (CANCELED) IntraVENous, at 100 mL/hr, CONTINUOUS, Starting on Sun07/17/23 at 1315, Post-op * 1305 (New Bag - Provider: Fabi Duran RN) * 2329 (New Bag - Provider: Angela Nguyen RN) * 0727 (Stopped - Provider: Yessy Montes, RN) lactated ringers IV soln infusion (CANCELED) IntraVENous, at 100 mL/hr, CONTINUOUS, Starting on Sun07/17/23 at 0830, Pre-op (day of surgery) * 0826 (New Bag - Provider: Elva Hernandez RN) * 1032 (NoRateChange - Provider: Dee Rodriguez APRN - STRAP SEWER) * 1145 (Anesthesia Volume Adjustment - Provider: Dee Rodriguez APRN - STRAP SEWER) * 1255 (Stopped - Provider: Fabi Duran RN) Medication Order07/15///03/2023 acetaminophen (TYLENOL) tablet 650 mg 650 mg, Oral, EVERY 4 HOURS PRN, Starting on Sun07/18/23 at 0706, Until Discontinued, Allowed for higher pain score per patient request, Maximum dose of acetaminophen is 4000 mg from all sources in 24hours. BUPivacaine (MARCAINE) 0.5 % 20 mL, lidocaine 1 % 20 mL (CANCELED) PRN, Starting on Sun07/17/23 at 1119, Intra-op * 1119 (Given - Provider: Ramon Olea MD) [...] 1252, Until Discontinued, Pain Moderate (4-6), Post-op Order Group 1: ondansetron (ZOFRAN-ODT) disintegrating tablet [...] 1252, Until Discontinued, Pain Severe (7-10), Post-op Medication Order07/31//// amLODIPine (NORVASC) tablet 5 mg 5 mg, Oral, DAILY, First dose on Sun08/01/23 at 0900, Until Discontinued * 0929 (Not Given - Provider: Elda Sousa RN - Reason: Patient/family refused) * 0858 (Not Given - Provider: Chloe Torres RN - Reason: Contraindicated - Comment: HR 53) * 0634 (Held by provider - Provider: Radhika Meredith MD - Reason: Other) * 0900 (Automatically Held - Provider: Radhika Meredith MD) clindamycin (CLEOCIN) 900 mg in dextrose 5 % 50 mL IVPB 900 mg, IntraVENous, EVERY 8 HOURS, First dose (after last modification) on Sun07/31/23 at 2200, Until Discontinued, Antimicrobial Indications: Surgical Site Infection * 0529 (New Bag - Provider: Angela Nguyen RN) * 0705 (Stopped - Provider: Elda Sousa RN) * 1316 (New Bag - Provider: Elda Sousa, RN) * 1416 (Stopped - Provider: Olivia Richmond RN) * 2145 (New Bag - Provider: Angela Ladd RN) * 2245 (Stopped - Provider: Angela Ladd RN) * 0504 (New Bag - Provider: Angela Ladd RN) * 0611 (Stopped - Provider: Angela Ladd RN) * 1323 (New Bag - Provider: Chloe Torres RN) * 1423 (Stopped - Provider: Chloe Torres RN) * 2140 (New Bag - Provider: Angela Ladd RN) * 2241 (Stopped - Provider: Angela Ladd RN) * 0512 (New Bag - Provider: Angela Ladd RN) * 0614 (Stopped - Provider: Angela Ladd RN) * 1353 (New Bag - Provider: Chloe Torres RN) * 1456 (Not Given - Provider: Chloe Torres RN - Reason: Other - Comment: okay not to give per Dr. Castañeda.) * 2200 (Due) enoxaparin (LOVENOX) injection 40 mg 40 mg, SubCUTAneous, DAILY, First dose on Sun08/03/23 at 1015, Until Discontinued, Indication of Use: Prophylaxis-DVT/PE, Administer by deep subCUTAneous injection with pt lying down. Alternate injection sites on abdominal wall. Do not rub site after injection. Check with provider prior to any invasive procedure. * 1024 (Not Given - Provider: Chloe Torres RN - Reason: Patient/family refused) piperacillin-tazobactam (ZOSYN) 3,375 mg in sodium chloride 0.9 % 50 mL IVPB ([id number]) 3,375 mg, IntraVENous, EVERY 8 HOURS, First dose on Sun07/31/23 at 2115, Until Discontinued, Antimicrobial Indications: Surgical Site Infection * 0233 (Stopped - Provider: Angela Nguyen RN) * 0659 (New Bag - Provider: Elda Sousa RN) * 1002 (Stopped - Provider: Elda Sousa RN) * 1435 (New Bag - Provider: Olivia Richmond RN) * 1825 (Stopped - Provider: Olivia Richmond RN) * 2332 (New Bag - Provider: Angela Ladd RN) * 0325 (Stopped - Provider: Angela Ladd RN) * 0729 (New Bag - Provider: Chloe Torres RN) * 1129 (Stopped - Provider: Chloe Torres RN) * 1540 (New Bag - Provider: Chloe Torres RN) * 194 (Stopped - Provider: Angela Ladd RN) * 2308 (New Bag - Provider: Angela Ladd RN) * 0353 (Stopped - Provider: Angela Ladd RN) * 0711 (New Bag - Provider: Chloe Torres RN) * 1111 (Stopped - Provider: Chloe Torres RN) * 1457 (Not Given - Provider: Chloe Torres RN - Reason: Other - Comment: okay not to give per Dr. Castañeda) * 2300 (Due - Provider: Horacio Resendiz [facility]) sodium chloride flush 0.9 % injection 5-40 mL 5-40 mL, IntraVENous, EVERY 12 HOURS SCHEDULED (2 times per day), First dose on Sun07/31/23 at 2100, Until Discontinued, For Line Patency: Peripheral IV = 5 mL; Midline or Central Line = 10 mL/lumen.If following IV push medication, administer flush at same rate as the IV push. Flush volume is determined by type of infusion therapy being given. For non-viscous solutions use: Peripheral IV = 5 mL Midline or Central Line = 10 mL/lumen For viscous solutions (i.e. blood components, parenteral nutrition, contrast media, or after obtaining blood sample) use: Peripheral IV = 10 mL Midline or CentralLine = 20 mL/lumen * 0930 (Given - Provider: Elda Sousa RN) * 1957 (Not Given - Provider: Angela Ladd RN - Reason: IV Fluid Infusing) * 0830 (Not Given - Provider: Chloe Torres RN - Reason: IV Fluid Infusing) * 2016 (Not Given - Provider: Angela Ladd RN - Reason: IV Fluid Infusing) * 0740 (Not Given - Provider: Chloe Torres RN - Reason: IV Fluid Infusing) * 2100 (Due) Medication Order07/31/// 0.9 % sodium chloride infusion (CANCELED) IntraVENous, at 75 mL/hr, CONTINUOUS, Starting on Sun07/31/23 at 1845 * 0225 (New Bag - Provider: Rose Alanis RN) * 2143 (New Bag - Provider: Angela Ladd, RN) * 1316 (New Bag - Provider: Chloe Torres, RN) * 0310 (New Bag - Provider: Angela Ladd, RN) * 0649 (Stopped - Provider: Chloe Torres, RN) Medication Order// 0.9 % sodium chloride infusion IntraVENous, at [...] 2 doses Infuse at 1,000 mg/hr Repeat Maglevel 1 hour after final administration Protocol not [...] mg from all sources in 24 hours. * 2347 (Given - Provider: Angela Ladd RN - Comment: Pre dressing change) * 1112 (Given - Provider: Chloe Torres RN) * 2306 (Given - Provider: Angela Ladd RN - [...] use in patients with CrCl less than 30mL/min. Do not crush, chew, or suck on [...] Line Care, After every IV line use Order Group 1: acetaminophen (TYLENOL) tablet 650 [...] patient unable to tolerate tablet. K Lab &a mp;nbsp; Replacement Action&amp ;nbsp;3.1 to 3.5 40 mEq ORAL x 1 Under 3.1 Refer to IV replacement tia col Recheck K level in AM. Protocol not [...] unable to tolerate oral tablet. K Lab & amp;nbsp; Replacement Action 3.1 to 3.5 &am p;nbsp; 40 mEq ORAL x 1 Under 3.1 &nbs p; Refer to IV replacement protocol Recheck K [...] BE BASED ON THE PRIMARY CLINICAL RECORDS. [employer] [facility]. provides no warranty or guarantee of the accuracy or completeness of information in this document.
--- NOTE | 2025-02-18 08:50 | CA_ITS ---
Patient Name: MICHEAL BRICE MR#: [id number] : 1940 Exam Date: 02/18/2025 Ordering Doctor: JEFFREY DRIVER ECHOCARDIOGRAM REPORT PROCEDURE: CA ECHO DOPPLER COMPLETE INDICATIONS: Hypertension, AGUSTIN COMPARISON: None. DESCRIPTION: COMPLETE ECHOCARDIOGRAM Real-time transthoracic echocardiography with 2D, M-mode, spectral and color flow Doppler performed. QUALITY: Technical quality was good. LEFT VENTRICLE: Normal chamber size. Mild concentric hypertrophy. Global left ventricular systolic function is normal. Calculated left ventricular ejection fraction is normal at 65-70%. Global longitudinal myocardial strain is normal at -21.2%. LV EF: Normal left ventricular ejection fraction, (>55%). DIASTOLIC: Grade II diastolic dysfunction. ATRIAL SEPTUM: LEFT ATRIUM: Severe dilatation. RIGHT ATRIUM: Severe dilatation. RIGHT VENTRICLE: Mild chamber dilatation. Normal right ventricular systolic function. TRICUSPID VALVE: Normal mobility and thickness. No stenosis with mild to moderate regurgitation. Mild pulmonary hypertension. The RVSP is estimated at 44 mmHg. MITRAL VALVE: Normal mobility and thickness. No evidence of mitral valve stenosis. Mild mitral annular calcification. Moderate mitral regurgitation. AORTIC VALVE: Normal trileaflet appearance. Mildly calcified aortic valve. Normal leaflet mobility. No evidence of aortic valve stenosis. Trivial aortic regurgitation. AORTIC ROOT: Normal diameter and appearance. The aortic root measures 3.5 cm. The ascending aorta is normal in size measuring 3.3 cm. PULMONIC VALVE: Normal thickness and mobility. No stenosis. Trivial regurgitation. PERICARDIUM: No evidence of pericardial effusion. IVC: Moderate dilatation. Measuring 2.5 cm. PLEURA: CONCLUSION: 1. Mild concentric left ventricular hypertrophy with normal systolic function. Estimated LVEF is 65 to 70%. 2. Mildly dilated right ventricle with normal systolic function. 3. Grade 2 diastolic dysfunction. 4. Severe biatrial dilatation. 5. Moderate mitral regurgitation. 6. Mild to moderate tricuspid regurgitation. 7. Mildly elevated right-sided pressures. RVSP is 44 mmHg. Adult Echocardiography Procedure Report Left Ventricle LVEDD (3.7 - 5.6 cm): 4.54 cm LVESD (2.2 - 4.0 cm): 3.35 cm LVIVS thickness (0.6 - 1.2 cm): 1.32 cm LVPW thickness (0.5 - 1.0 cm): 1.06 cm e': 0.09 m/s E - e': 6.99 LVOT Max Gradient: 4.49 mm[Hg] LVOT Area (cm2): 1.06 m/s Peak Velocity (LVOT): 1.06 m/s Mean Velocity (LVOT): 0.69 m/s LVOT Diameter 2.31 cm Left Ventricular Ejection Fraction: 65-70 % Left Atrium LA Volume Index (2D A2C): 63.21 ml/m2 Left Atrium Systolic Dimension: 4.99 cm Mitral Valve MV E to A Ratio: 1.21 Mitral Valve A-Wave Peak Velocity: 0.52 m/s Mitral Valve E-Wave Peak Velocity: 0.63 m/s Right Ventricle RV Internal Diastolic Dimension: 3.55 cm Aorta AO Root Diam: 3.50 cm Ascending Ao Diam: 3.30 cm Aortic Valve AoV Area (Peak Santos): 3.98 cm2, 3.98 cm2 AoV Area (VTI): 4.26 cm2, 4.26 cm2 Peak Velocity(Antegrade Flow): 1.11 m/s Peak Gradient(Antegrade Flow): 4.97 mm[Hg] Mean Velocity(Antegrade Flow): 0.72 m/s Mean Gradient(Antegrade Flow): 2.45 mm[Hg] Velocity Time Integral: 29.11 cm Tricuspid Valve Peak Velocity (Regurgitant Flow): 2.74 m/s, 2.73 m/s, 3.01 m/s Pulmonic Valve Mean Gradient: 1.22 mm[Hg], 1.49 mm[Hg] Mean Velocity: 0.52 m/s, 0.57 m/s Peak Velocity: 0.77 m/s Peak Gradient: 2.15 mm[Hg], 2.60 mm[Hg] Right Atrium Right Atrium Systolic Pressure: 53.67 ml, 53.67 ml Dictated by: Yoan Wiley M.D. on 02/18/2025 at 18:36 Approved by: Yoan Wiley M.D. on 02/18/2025 at 18:46
== END 2025-02-18 08:39 | disposition home or self-care (01) ==
LOC: CARD 08:39
PROVIDERS: PCP Nurse Practitioner; Visit Provider Internal Medicine Cardiovascular Disease
DX: R06.09 Other forms of dyspnea (principal); I11.9 Hypertensive heart disease without heart failure
CPT/HCPCS: 93306; 93356

== ENCOUNTER 2025-02-27 07:43 | Outpatient (OUT) | payer MEDICARE, OTHER, SELFPAY ==
--- OUTSIDE RECORDS SUMMARY | 2025-02-27 07:51 | XMS_ITS | CCD ---
Author Organization [facility] Care Team Providers Care Piling Setter Name Role Phone DR MIGEL RAMSEY Consulting Unavailable FAWWAD, ARAIZA H Primary Care Unavailable FAWWAD, ARAIZA H Attending Unavailable FAWWAD, ARAIZA H Admitting Unavailable FAWWAD, ARAIZA H Consulting Unavailable No, Physician Primary Care Provider Unavailobi e Camila Carlos Primary Care Physician [phone] COSMO, CAMILA Primary Care Unavailable OLEARAMON CHANDRA Consulting Unavailable GHJOVAN DIAZ Attending Unavailable HERMANARIAN JOVAN Admitting Unavailable Cosmo COMMANDING OFFICER TRAFFIC DIVISION - IGNITION MECHANIC, Camila Primary Care Provider IACOB, RADHIKA Referring [...] Unavailable Cosmo Camila AGUAYO Primary Care Provider [phone] COSMOCAMILA RODRIGUEZ Primary Care Unavailable LUIS FELIPE LOPES Attending Unavailable COSMO, CAMILA SAPP Primary Care Unavailable LUIS FELIPE LOPES Referring Unavailable LUIS FELIPE LOPES Admitting Unavailable COSMO, CAMILA SAPP Primary Care Unavailable LUIS FELIPE LOPES Referring Unavailable FADLUIS FELIPE De La Vega Admitting Unavailable Arnol Huston Jr Attending Unavailable Al Shweiki, Ernesto Attending Unavailable Mykel Cordova, Ernesto Referring Unavailable Mykel Crodova MD, Ernesto Unavailable Unavailabl e Cosmo, Camila [...] Provider Krystal Shook, Cuauhtemoc Fragoso Admitting Unavailable Timmis , Cuauhtemoc Fragoso Attending Unavailable Nill, Alfonso Scott Attending Unavailable Nill, Alfonso Scott Admitting Unavailable Cosmo, TELEVISION NEWS PRODUCER Camila Moreno Attending Unavailable Cosmo, TELEVISION NEWS PRODUCER Camila L Attending Unavailable JIMMIE, CHILLER TENDER KIA De La Vega Attending Unavailabl e Cosmo, TELEVISION NEWS PRODUCER Camila Moreno Attending Unavailable Cosmo, TELEVISION NEWS PRODUCER Camila Moreno Admitting Unavailable Cosmo, TELEVISION NEWS PRODUCER Camila Moreno Attending Unavailable Cosmo, Camila Moreno [...] JIANLIN Referring Unavailable BERMUDEZ, JIANLIN Referring Unavailable BERUMDEZ, JIAHARIKAIN Attending Unavailable NILL, Alfonso Scott Attending Unavailable JIMMIE, CHILLER TENDER KIA De La Vega Attending Unavailabl e JIMMIE, CHILLER TENDER KIA De La Vega Attending Unavailabl e TIMMISCUAUHTEMOC Attending Unavailable TIMMICUAUHTEMOC Cannon Consulting Unavailable TIMMICUAUHTEMOC Cannon Admitting Unavailable Allergies Allergy ClassificationReported Allergen(s)Allergy TypeDate of OnsetReaction(s) Facility (1 source)CorticosteroidsDrug allergy (disorder)07-34[facility]7802[facility] Medications Current Medications MedicationDrug Class(es)DatesSig (Normalized)Sig (Original)Acetaminophen (4 sources)Start: 38-30-1376jzrcgkjhqpjoa (TYLENOL) tablet 650 mgStart: 07-18-2023 End: 26-13-8912efbqntynaggqk (TYLENOL) tablet 650 mgStart: 07-17-2023 End: 40-16-3517gepfdlhatmwzu (TYLENOL) tablet 650 mgacetaminophen 325 mg / HYDROcodone bitartrate 5 mg oral tablet (1 source)Opioid AgonistStart: 07-18-2023 End: 86-17-1163DFZCUkvxumh-acetaminophen (NORCO) 5-325 MG per tablet Indications: Incarcerated ventral hernia , Post-op pain Take 1 tablet by mouth every 6 hours as needed for Pain (may use 1 or 2) for up to 7 days. Max Daily Amount: 4 tablets 12 tablet 0 07/18/2023 07/25/2023 Activeacetaminophen 325 mg / oxyCODONE hydrochloride 5 mg oral tablet (1 source)Opioid AgonistStart: 76-74-7073ombIOERNL-acetaminophen (PERCOCET) 5- 325 MG per tablet 1 tabletAcidophilus Probiotic Blend (3 sources)Start: 76-15-6417bzgw 1 capsule by mouth twice dailyAcidophilus Probiotic Blend 1 cap(s), Oral, BID, Refill(s) 0 Start Date: 06/26/23 Status: Ordered Repeat number: 1Start: 60-79-2286rzei 1 capsule by mouth twice daily Acidophilus Probiotic Blend 1 cap(s), Oral, BID, Refill(s) 0 Start Date: 06/26/23 Status: OrderedamLODIPine 5 mg oral tablet (10 sources)Dihydropyridine Calcium Channel BlockerStart: 12-13-2022 End: 91-27-4874vuKFCPAkvg (Norvasc) 5 MG tablet Take by mouth 12/13/2022 11/30/2024 ActiveAscorbic Acid / Beta Carotene / cuprous oxide / Vitamin E / Zinc Oxide (1 source)Vitamin Ctake 1 capsule by mouth twice dailyPreserVision AREDS-2 250 mg-90 mg-40 mg-1 mg capsule take 1 capsule by oral route 2 times every day1 capsule - Activecalcium carbonate 1500 mg oral tablet (18 sources)Start: 03-37-3426jnva 1 tablet by mouth in the morningcalcium carbonate 1500 (600 Ca) MG tablet Take 1,200 mg by mouth in the morning. 05/01/2024 ActiveStart: 11-40-1496lrad 2 tablets by mouth once dailycalcium carbonate (OS-MARYCARMEN) 600 mg calcium (1,500 mg) tablet Take 2 (two) tablets (1,200 mg total) by mouth daily . 05/01/2024 ActiveStart: 05-01-2024 End: 58-60-0221qzlbxsu (as carbonate) 600 mg oral tablet 1,200 mg = 2 tab(s), Oral, Daily, X 90 day(s), # 180 tab(s), Refills(s) 3, Pharmacy: [id number], 158, cm, 04/24/24 14:32:00 EST, Height/Length Dosing, 88.3, kg, 04/24/24 14:32:00 EST, Weight Dosing Start Date: 05/01/24 Stop Date: 04/26/25 Statu s: Ordered Quantity: 180.0 Unit: tab(s) Repeat number: 4take 1 tablet by mouth twice dailyCalcium-600 600 mg (as calcium carbonate 1,500 mg) tablet take 1 tablet by oral route 2 times everyday 1 tablet - Activecarboxymethylcellulose 0.01 mg/mg ophthalmic gel (15 sources)Start: 55-45-2805hulsvsvbtmgrtanzmshpwp (Refresh Liquigel) 1 % ophthalmic solution dropperette 07/28/2024 Activecarboxymethylcellulose sodium 5 mg/ml / glycerin 9 mg/ml ophthalmic solution (1 source)Non-Standardized Chemical AllergenRefresh Relieva PF 0.5 %-0.9 % eye drops instill by ophthalmic route bid/tid OU - Activecephalexin 500 mg oral capsule (3 sources)Cephalosporin AntibacterialStart: 04-18-2022 End: 29-48-5389wtyw 1 capsule by mouth four times dailycephALEXin (KEFLEX) 500 MG capsule Take 1 (one) capsule (500 mg total) by mouth 4 (four) times a day for 10 days . 40 capsule 1 04/18/2022 04/28/2022 Tqkjgv83 ml clindamycin 18 mg/ml injection (2 sources)Lincosamide AntibacterialStart: 93-11-7031rrfckjmdubz (CLEOCIN) 900 mg in dextrose 5 % 50 mL IVPBStart: 07-31-2023 End: 35-90-9563ixelasoopox (CLEOCIN) 600 mg in dextrose 5 % 50 mL IVPB doxycycline hyclate 100 mg oral tablet (1 source)Tetracycline-class DrugStart: 08-03-2023 End: 79-50-3712nszd 1 tablet by mouth twice dailydoxycycline hyclate (VIBRA- TABS) 100 MG tablet Take 1 tablet by mouth 2 times daily for 7 days 14 tablet 0 08/03/2023 08/10/2023 Active0.4 ml enoxaparin sodium 100 mg/ml prefilled syringe (2 sources)Low Molecular Weight HeparinStart: 15-77-8503qdaxlpuftv (LOVENOX) injection 40 mgStart: 67-27-4367istlie 40 mg by subcutaneous injection once daily40 mg, SubCUTAneous, DAILY, First dose on Sun07/18/23 at 0900, Until Discontinued Indication of Use:Prophylaxis-DVT/PE Administer by deep subCUTAneous injection with pt lying down. Alternate injection sites on abdominal wall. Do not rub site after injection. Check with provider prior to any invasive procedure. Post-opergocalciferol 1.25 mg oral capsule (16 sources)Provitamin D2 CompoundStart: 33-56-0914srsy 1 capsule by mouth every weekergocalciferol (ERGOCALCIFEROL) 1,250 mcg (50,000 unit) capsule Take 1 (one) capsule (50,000 Units total) by mouth once a week . 05/01/2024 Activetake 1 capsule by mouth every weekVitamin D2 1,250 mcg (50,000 unit) capsule take 1 capsule by oral route every week 26521 UNITS - Activelactobacillus rhamnosus gg [id number] unt oral capsule (18 sources)Start: 25-60-2157iaqq 1 capsule by mouth in the morninglactobacillus (Culturelle) capsule Take 1 capsule by mouth in the morning and 1 capsule in the evening. Take with meals. 06/22/2023 ActiveStart: 62-98-1307owko 1 capsule by mouth twice daily at mealtimelactobacillus (CULTURELLE) capsule Take 1 capsule by mouth 2 times daily (with meals) 60 capsule 0 06/22/2023 ActiveLutein / zeaxanthin (1 source)take 1 capsule by mouth once daily50 ml magnesium sulfate 40 mg/ml injection (1 source)Start: ,000 mg, IntraVENous, at 25 mL/hr, Administer over 2 Hours, PRN, Other, Magnesium Replacement, Starting on Sun07/31/23 at 1826 [facility] Replacement Action 1.4-1.6 mg/dL 2,000 mg [...] po qd - Activeomega-3 acid ethyl esters (half-way) 1000 mg oral capsule (16 sources)take 1 capsule by mouth in the morningomega-3 acid ethyl esters (Lovaza) 1 g capsule Take 2 g by mouth in the morning and 2 g in the evening. Active2 ml ondansetron 2 mg/ml injection (1 source)Serotonin-3 Receptor AntagonistStart: 09-43-5239gdaqyfcdhts (ZOFRAN) injection 4 mgondansetron (ZOFRAN-ODT) disintegrating tablet 4 mg (1 source)Start: 99-78-1833czktwdhnadw (ZOFRAN-ODT) disintegrating tablet 4 mg oxyCODONE (1 source)Opioid AgonistStart: 04-97-8309htdDLLEHT (ROXICODONE) immediate release tablet 5 mgpiperacillin-tazobactam (ZOSYN) 3,375 mg in sodium chloride 0.9 % 50 mL IVPB (Fvwz2Agz) (1 source)Start: 38-18-1278dkadxrsrkywp-tazobactam (ZOSYN) 3,375 mg in sodium chloride 0.9 % 50 mL IVPB (Khdz2Neu)polyvinyl alcohol 0.014 ml/ml / povidone 6 mg/ml ophthalmic solution (1 source)Refresh Classic (PF) 1.4 %-0.6 % eye drops in a dropperette instill 1 drop by topical route bid/tidOU - ActivePotassium Chloride (1 source)Start: 65-09-9573vlvtvnkza chloride (KLOR-CON M) extended release tablet 40 mEqPROBIOTIC (unknown strength) (1 source)take 1 capsule by mouth twice dailypyridoxine hydrochloride 25 mg oral tablet (15 sources)pyridoxine (Vitamin B-6) 25 MG tablet take 1 tab po qd/bid Active terbinafine hydrochloride 10 mg/ml topical cream (1 source)Allylamine AntifungalStart: 83-91-9924Oymdhbd AT 1% Cream 1 ashwini, Topical, BID, 12 gram, Refill(s) 0, [facility] #[facility], 155, cm, 03/30/23 10:41:00 EST, Height/Length Dosing, 87.6, kg, 03/30/23 10:41:00 EST, Weight Dosing Start Date: 03/30/23 Status: Orderedvitamin b12 1 mg/ml oral solution (20 sources)Vitamin B12 End: 66-94-8182fzzm 1 tablet by mouth in the morningCyanocobalamin [...] meq/ml injectable solution (1 source)Start: 07-17-2023 End: 87-07-5367oacyxykg ringers IV soln infusionceFAZolin 2000 mg injection (1 source)Cephalosporin AntibacterialStart: 07-17-2023 End: 63-10-1566aeGNVropm (ANCEF) 2000 mg in 0.9% sodium chloride 100 mL XEIU839 ml glucose 50 mg/ml / potassium chloride 0.02 meq/ml / sodium chloride 4.5 mg/ml injection (1 source)Start: 07-17-2023 End: 12-46-7048FvvtoNQEoqg, at 100 mL/hr, CONTINUOUS, Starting on Sun07/17/23 at 1315, Post-opiopamidol (ISOVUE-370) 76 % injection 75 mL (1 source)Start: 07-31-2023 End: 77-95-9712qgmbldunz (ISOVUE-370) 76 % injection 75 mLpolyethylene glycol 3350 43130 mg powder for oral solution (1 source)Osmotic LaxativeStart: 89-04-435044 g, Oral, DAILY PRN, Starting on Sun07/31/23 at 1826, Until Discontinued, Constipation First linetherapy for constipation5 ml sodium chloride 9 mg/ml injection (4 sources)Start: 20-37-5206wlap 1 dose intravenously twice daily5-40 mL, IntraVENous, [...] Central Line = 20 mL/lumenStart: 07-31-2023 End: 14-26-2836HlyhaKWFyxb, at 75 mL/hr, CONTINUOUS, Starting on Sun07/31/23 at 1845Start: 47-59-4721MgvexPMUcfl, at 5-250 mL/hr, PRN, if patient receiving [...] or less into rate field of order.Start: 45-53-4671xlsv 10 mL intravenously once as roruwf06 mL, IntraVENous, PRN, Starting on Sun07/31/23 at 1826, Until Discontinued, Line Care, After every IV line use1 ml triamcinolone acetonide 40 mg/ml injection (1 source)CorticosteroidStart: 06-13-2024 End: 57-06-261222 mg, Intra-articular, Once as needed Procedure, Starting on Sun06/13/24 at 1052, For 1 doseVitamin D 50,000 intl units (1.25 mg) oral capsule (2 sources)Start: 50-60-3371qfpq 1 capsule by mouth every weekVitamin D 50,000 intl units (1.25 mg) oral capsule 50,000 International_Unit = 1 cap(s), Oral, qWeek, # 12 cap(s), Refills(s) 4, Pharmacy: [facility] #[id number], 158, cm, 04/24/24 14:32:00 EST,Height/Length Dosing, 88.3, kg, 04/24/24 14:32:00 EST, Weight Dosing Start Date: 05/01/24 Status: Ordered Quantity: 12.0 Unit: cap(s) Repeat number: 5 Problems Active Problems Problem ClassificationProblemDateDocumented DateEpisodic/ChronicAbdominal hernia (13 sources)Irreducible hernia of anterior abdominal wall; Translations: [Other and unspecified ventral hernia with obstruction, without gangrene]Onset: 07-17-2023 Resolved: 295218-83-5001MduyeusxKdsygfqyy pain (6 sources)Epigastric pain; Translations: [Epigastric pain]Onset: 06-20-2023 Resolved: 499680-65-8633YxbwxvawCjsrnlgs (2 sources)Presence of intraocular lens; Translations: [Pseudophakia]Onset: 07-37-6304DussltrQjrpwkbkbqx and hemorrhagic disorders (2 sources)Spontaneous ecchymoses; Translations: [Spontaneous ecchymoses]Onset: 89-78-7484AalcdfpoDlxskmpusrxis of surgical procedures or medical care (12 sources)Wound dehiscence; Translations: [Disruption of wound, unspecified, initial encounter]Onset: 07-16-2023 Resolved: 621901-90-5849UswvbdzfPomnbaune of lipid metabolism (18 sources)Hypercholesterolemia; Translations: [Mixed hyperlipidemia]Onset: 319362-92-8844HsafliqSeulzpcgm hypertension (10 sources)Hypertensive disorder; Translations: [Essential (primary) hypertension]Onset: 871133-09-7641YppgjqrXhyxxjqnxr disorders (15 sources)Postmenopausal bleeding; Translations: [Postmenopausal bleeding] Onset: 434695-09-2995CzwviatNbvgkfrjzsp deficiencies (4 sources)Undernutrition; Translations: [Mild protein-calorie malnutrition] Onset: 058492-06-5736FampiweDvnqakajliqkll (3 sources)Osteoarthritis of left knee joint; Translations: [Unilateral primary osteoarthritis, left knee]Onset: 763997-40-9458SjvlrgwKevnq aftercare (2 sources)Encounter for change or removal of nonsurgical wound dressing; Translations: [Encounter for change or removal of nonsurgical wound dressing] Onset: 63-26-5052JahiejwgFmoqd aftercare (2 sources)Encounter for follow-up examination after completed treatment for conditions other than malignant neoplasm; Translations: [Encounter for follow-up examination after completed treatment for conditionsother than malignant neoplasm]Onset: 16-88-2933ZkifdantBythd and unspecified benign neoplasm (3 sources)Lipoma of plpy01-25-6882JvjqkccfIxrgj and unspecified benign neoplasm (2 sources)Benign neoplasm of left choroid; 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] Onset: 09-93-3744GblafcgpLrhoo and unspecified benign neoplasm (2 sources)Lipoma of skin and subcutaneous tissue of limb; Translations: [Benign lipomatous neoplasm of skin and subcutaneous tissue of unspecified limb]Onset: 78-42-5884RzgeeunnZskwz and unspecified benign neoplasm (2 sources)Lipoma of upper yyc71-83-6873RtjticfvJvwsw and unspecified benign neoplasm (2 sources)Lipoma of upper cbad44-83-6026NibnboviVvyda connective tissue disease (3 sources)History of right total knee replacement; Translations: [Presence of right artificial knee joint]ChronicOther connective tissue disease (2 sources)Presence of right artificial knee joint; Translations: [Presence of right artificial knee joint]Onset: 86-30-6260HelyyluUwrzq connective tissue disease (3 sources)Ganglion cyst of right dorsal umips76-34-7666DdhlkariNzubx gastrointestinal disorders (1 source)Diarrhea, unspecified; Translations: [Diarrhea, unspecified]Onset: 68-08-7871WdkzuhrbAytnm injuries and conditions due to external causes (1 source)Spider bite -65-4502ClkpcrqhTxzdq nervous system disorders (1 source)Postoperative pain ; Translations: [Other acute postprocedural pain] 19-69-5305HntvdzcnGpgzw nervous system disorders (1 source)Other acute postprocedural pain; Translations: [Other acute postprocedural pain]Onset: 67-10-7141BvuvchyhRqpcl non-traumatic joint disorders (15 sources)Pain in left shoulder; Translations: [Pain in joint, shoulder region]Onset: 800957-24-7144HkzfazemMkahu nutritional; endocrine; and metabolic disorders (19 sources)Body mass index 30+ - obesity; Translations: [Body mass index (BMI) 37.0-37.9, adult]Onset: 542460-86-7906JkznvkfEpwxh nutritional; endocrine; and metabolic disorders (2 sources)Obesity caused by energy qoruflflf17-65-1678HhffzamLequv nutritional; endocrine; and metabolic disorders (1 source)Obese class R13-47-6509UzcirotUkbsv skin disorders (3 sources)Changes in skin -85-8975LzmixtujJuqug skin disorders (2 sources)Excessive lnupmcta18-31-4971TnxkeaffKajbp skin disorders (2 sources)Loss of unwr69-40-3026TalkegtsIoqjk skin disorders (2 sources)Mass of upper nmpi76-10-1201VqkdqwmsQfbqf skin disorders (2 sources)Localized swelling, mass and lump, trunk; Translations: [Localized swelling, mass and lump, trunk]Onset: 77-27-9581XdxtkdvlAikdunbv codes; unclassified (2 sources)Other specified health status; Translations: [Other specified conditions influencing health status]Onset: 177393-49-8912CsfnblqiByrcxzcn codes; unclassified (15 sources)Memory impairment; Translations: [Other amnesia]Onset: 10-22-2024 11-33-4964GzwhmzgvTburqmc detachments; defects; vascular occlusion; and retinopathy (2 sources)Nonexudative age-related macular degeneration, bilateral, intermediate dry stage; Translations: [Nexdtve age-related mclr degn, bilateral, intermed dry stage]Onset: 63-99-2181AhwsumdIysfvybuh and history of mental health and substance abuse codes (15 sources)H/O: psychiatric disorder; Translations: [Personal history of other mental and behavioral disorders]Onset: 903796-62-4606BkveasltGvne and subcutaneous tissue infections (2 sources)Abscess of umbilicus; Translations: [Cutaneous abscess of umbilicus] Onset: 396544-08-2187OjayqtgaMshdmcngelr; intervertebral disc disorders; other back problems (3 sources)Spinal stenosis of lumbar region; Translations: [Spinal stenosis, lumbar region without neurogenic claudication]Onset: EpisodicThyroid disorders (13 sources)Hyperthyroidism; Translations: [Thyroid nodule]Onset: 11-13-2024 90-69-4496SfqbdesPrxbfwa disorders (4 sources)Mass of thyroid gland; Translations: [Disorder of thyroid, unspecified]89-91-5558YjfefmwzOhgyiaheyhkj (2 sources)Dressing Change; Translations: [Dressing Change]Onset: 08-04-2023 Unclassified (1 source)Low back pain, unspecified; Translations: [Low back pain, unspecified] Onset: 69-64-4906Rwrlyxrqzhdr (1 source)Rdf-istpiq39-94ndnlbk85-64-3212Iglbv infection (3 sources)Hand bmsr01-75-3675Vxrewnys Past or Other Problems Problem ClassificationProblemDateDocumented DateEpisodic/ChronicBiliary tract disease (8 sources)Other cholelithiasis without obstruction; Translations: [Calculus of gallbladder with acute cholecystitis without obstruction]Onset: 06-20-2023 Resolved: 943901-04-6632UfqmxkpmCynxskyjwgax (1 source)Low back pain, unspecified; Translations: [Low back pain, unspecified] Onset: 05-61-0020Pjveiavuiqlj (1 source)DRY AMD (chief complaint)Onset: 07-28-2024 Results Test NameValueInterpretationReference RangeFacilityWrentham Developmental Center Medicine Office/Clinic Noteon 43-21-0421Wcgdlr Medicine Office/Clinic NoteFabarnstable county hospital Medicine Office/Clinic Note Chief Complaint The patient [...] pain - no allergies- no medication taken- [place] flu, tea, and soup History of Present Illness 84-year-old female presenting with symptoms that began on Sunday. Her primary complaint is a sore throat, and she also reports having a fever for one day, a headache, and recent onset of ear discomfort. For self-treatment, the patient has taken [place], eucalyptus, and johnson seal, and has used [...] 5 days. Ordered: Influenza Type A&B POC 30512 Rapid COVID POC 82865 Rapid Strep POC 56924 2. BMI 33.0-33.9,adult (Z68.33: Body mass index [...] No qualifying data available Patient Education Pharyngitis, Bjcx-qv-Qdac Problem List/Past Medical History Ongoing BMI 33.0-33.9,adult [...] 50,000 intl units (1.25 mg) oral capsule, 34544 International_Unit= 1 cap(s), Oral, qWeek, 4 refills [...] Recorded tetanus-diphtheria toxoids 03/19 (more content not included)...[facility] HospitalComment on above:Result Comment: Electronically Signed By: KIA SAMUEL CNP\.sonido\Date and Time Signed: 01/09/25 11:17 TEY52ur 78-68-387296Psawkzpy by: GRETCHEN VALLEJO on: 01/08/2025 12:21 PM Modules accepted: OrdersNormalUniversity of United Memorial Medical CenterConsulton [id number] Micheal Brice 1940 F Date Provider Department Center 01/06/2025 Janice-THOMAS BERMUDEZ [facility] SURG Second Fl Family History Problem Relation Age of Onset Coronary artery disease Mother Other Mother Family Status - Relation Status Age at Mother Level of Service:[address] [place] OFFICE/OUTPATIENT NEW MODERATE MDM 45 MINUTES Reason for Visit and Comments: Consult [484] - Incisional Hernia - called for imaging CT abd/pel Gilliam [place] on 11/11/2024. (Referral scanned into chart)[facility] HospitalAmbulatory Visit Summaryon 96-24-1477Lyfqlfcndu Visit Summary Ambulatory Visit Summary MICHEAL BRICE [...] Appointments Sunday2025 9:30 AM EST With: Where: [address] [address]- Sunday2025 10:20 AM EST With: Camila Max Where: [address] [address]- Medications What How Much When [...] signed up for this yet, please contact Kanoco at [phone] to get signed up today. Language Information Language assistance services are available as needed. [facility] HospitalFabarnstable [facility] hospital Medicine Office/Clinic Noteon 83-35-7854Sxfyms Medicine Office/Clinic NoteFabarnstable county hospital Medicine Office/Clinic Note Chief Complaint Rt hand [...] differential diagnosis. - Patient advised to use kgfq-cod-riykbcz analgesics as needed for pain management. Ordered: XR Hand 3+ Views Right XR Wrist 3+ Views Right 2. Wrist joint pain (M25.539: Pain in unspecified wrist) - X-ray ordered to evaluate for arthritis and other potential causes. - Consideration of arthritis as a differential diagnosis. - Patient advised to use hosm-bae-afxszth analgesics as needed for pain management. Ordered: [...] qualifying data available Patient Education Joint Pain, Lbgb-qo-Qhay Problem List/Past Medical History Ongoing BMI 33.0-33.9,adult [...] 50,000 intl units (1.25 mg) oral capsule, 51337 International_Unit= 1 cap(s), Oral, qWeek, 4 refills [...] acel/tetanus adult 08/07/2013 Recorded tetanus-diphtheria toxoids 03/19/2004 [facility] Comment on above:Result Comment: Electronically Signed By: KIA SAMUEL CNP\.sonido\Date and Time Signed: 12/10/24 15:12 EDTAmbulatory Visit Summaryon 63-09-0704Xpagtynnak Visit SummaryAmbulatory Visit Summary MICHEAL BRICE :1940 [...] Appointments Sunday2025 9:30 AM EST With: Where: [address] [address]- Sunday2025 10:20 AM EST With: Camila Max Where: [address] [address]- You Need to Schedule the Following Appointments Follow Up with OCTAVIA JULIEN, ARPAN Huizar When: Only if needed Where: [place] [address]- Someone Will Contact You Regarding These Appointments [facility] External Ambulatory Referral, Service not offered at [facility], Surgery, Dr Bermudez, [facility], 12/03/24 15:09:00 EDT, Recurrent ventral incisional [...] signed up for this yet, please contact Kanoco at [phone] to get signed up today. Language Information Language assistance services are available as needed. [facility] HospitalGeneral Surgery Office/Clinic Noteon 26-34-3339Nmbqcqq Surgery Office/Clinic NoteGeneral Surgery Office/Clinic Note Chief [...] possible recurrent hernia; patient had cholecystectomy in [place] in 2023; developed umbilical port site hernia that required emergency surgery in [place], with partial resection of colon; complicated by [...] follow-up visit, related to the original procedure 66081 2. Recurrent ventral incisional hernia (K43.2: Incisional hernia without obstruction or gangrene) recommend evaluation/repair at [facility]; referral placed. Ordered: [facility] External Ambulatory Referral Postoperative follow-up visit, related to the original procedure 67613 Follow-up With When Contact Information OCTAVIA JULIEN, ARPAN Huizar Only if needed [address] [place] [address]- Additional Instructions: Problem List/Past Medical [...] 50,000 intl units (1.25 mg) oral capsule, 30367 International_Unit= 1 cap(s), Oral, qWeek, 4 refills [...] acel/tetanus adult 08/07/2013 Recorded tetanus-diphtheria toxoids 03/19/2004 RecordedNormalAcmc Healthcare [facility] Comment on above:Result Comment: Electronically Signed By: OCTAVIA JULIEN, Alfonso Montgomery\Date and Time Signed: 12/03/24 15:11 EDTCoding Summaryon 10-65-5217Cyupqo SummaryHTMLBase 64 GrwcacpqZVx7xYg+PGhlYWQ+RH4LJELmC71ewNLttH6rA5FWQAySCwkiIXUGNRqGCpKnkpYuBZ9ifUZj ZXJu [file] IGN (more content not included)...[facility] Resultson 92-90-0497Pxc - AP [id number]#1.00OTGTIFF [facility] Urineon 72-60-8722Wodzpzxm identified Cx Nom (U) Microbiology PROCEDURE: Urine Culture [R1] SOURCE: U CleanCatch BODY SITE: COLLECTED DATE/TIME: 11/21/2024 09:12 EDT RECEIVED DATE/TIME: 11/21/2024 17:59 EDT START DATE/TIME: 11/21/2024 17:59 EDT FREE TEXT SOURCE: JIMMIE AGUAYO, KIA SAMUEL CNP, KIA De La Vega FINAL REPORTS Final Report [] Verified Date/Time: 11/23/2024 07:27 EDT <10,000 cfu/ml Mixed skin contaminants Performing Locations R1: This test was performed at: [facility], [address] [place] [address], [address]- , , PldtapHpztboCleveland Clinic Fairview HospitalComment on above:Performed By: #### [id number] #### [facility] [address] [place] [address]Dipaiddrbl Visit Summaryon 55-85-6566Sfkhvigpwe Visit Summary Ambulatory Visit Summary MICHEAL BRICE [...] PM EDT With: Alfonso DUDLEY MD Where: [facility] General Surgery [address], [address], [place] [address]- Sunday2025 9:30 AM EST With: Where: [facility] Family Medicine [address] [address]- Sunday2025 10:20 AM EST With: Camila Max Where: [place] [id number]- Medications What How Much When Instructions Unchanged [...] signed up for this yet, please contact [employer] Information Management at [phone] to get signed up today. Language Information Language assistance services are available as needed. [facility] Medicine Office/Clinic Noteon 24-17-4741Qyepdm Medicine Office/Clinic NoteFabarnstable county hospital Medicine Office/Clinic Note Chief Complaint The patient [...] Urnls Dip Stick Auto w/o Microscopy POC 23485 2. Ganglion (M67.40: Ganglion, unspecified site) - [...] 50,000 intl units (1.25 mg) oral capsule, 35326 International_Unit= 1 cap(s), Oral, qWeek, 4 refills [...] Protein Urine Dipstick: Negative (11/21/24 09:09:00) Specific Conway Urine Dipstick: 1.010 (11/21/24 09:09:00) Urine Appearance Urine Dipstick: Clear (11/21/24 09:09:00) Urine Color Urine Dipstick: Yellow (11/21/24 09:09:00) Urobilinogen Urine Dipstick: Normal 0.2-1 EU/dl (11/21/24 09:09:00) pH Urine Dipstick: 6 (11/21/24 09:09:00)NormalAcmc Healthcare System GlenbeighComment on above:Result Comment: Electronically Signed By: KIA SAMUEL CNP\Date and Time Signed: 11/21/24 09:12 EDTPathology Sendout Teston 59-32-6772Xbftwhtza Send Out.See ReportNoProMedica Flower HospitalComment on above: Order Comment: left inf. thyroid fnb 11/13/24@1429 8 slides 1 cytolyte 1 afirmaPerformed By: #### [id number] #### (DEFAULT) [address] [place] [address]Atb 11-19-2024L Specimen: [id number] Received: 11/19/24 Status: LESVIA Wynne Num: [id number] Spec Type: Surgical Subm Dr: Alfonso Dudley MD FACS Tissues: A Lipoma (RIGHT UPPER ARM LESION) Procedures: HE, Gross/Micro L3 Age/ Patient Sex Location Account Attending Physician Micheal Brice 84/F LABELL [id number] Alfonso Dudley MD FACS SPEC NUM: [id number] RECD: 11/19/24 STATUS: LESVIA WYNNE NUM: [id number] JACQUE: 11/19/[address] [facility] [address]: Alfonso Dudley MD FACS ENTERED: 11/19/[address]: Chan,Lab SPEC TYPE: Surgical DEPT: LISET ANTONY ENTERED BY: [id number] RECV BY: [id number] ORDERED: HE, Gross/Micro L3 ORDERED: HE, Gross/Micro [...] reveal yellow-castillo, glistening, and uniform cut surfaces. Luster Repairer sections are submitted in a single cassette. (1, , QR30-240 A) Microscopic Description Microscopic examination is performed. Specimen: [id number] Received: 11/19/24 Status: MARLONMain Wynne Num: [id number] Spec Type: Surgical Subm Dr: Alfonso Dudley MD FACS Tissues: A Lipoma (RIGHT UPPER ARM LESION) Procedures: Santiago STONER/Micro L3 Patient: Micheal Brice [id number] (Continued) Specimen: [id number] Received: 11/19/24 (Continued) Signed (signature on file) Madhav Francisco MD 11/20/24909 Specimen: [id number] Received: 11/19/24 Status: LESVIA Wynne Num: [id number] Spec Type: Surgical Subm Dr: Alfonso Dudley MD FACS Tissues: A Lipoma (RIGHT UPPER ARM LESION) Procedures: Santiago STONER/Rashaun L3 Patient: Micheal Brice [id number] (Continued) Specimen: [id number] Received: 11/19/24 (Continued) CPT Codes 96001 Specimen: [id number] Received: 11/19/24 Status: LESVIA Wynne Num: [id number] Spec Type: Surgical Subm Dr: Alfonso Dudley MD FACS Tissues: A Lipoma (RIGHT UPPER ARM LESION) Procedures: GEORGIA[place], Gross/Micro L3 Patient: Micheal Brice [id number] (Continued) Signed (signature on file) Madhav Francisco MD 11/20/2410Normal [facility] Physician GroupConsent Formson 66-80-1367Nhazhjr Forms [id number]#1.00OTGTIFFJoint [facility] 11-13-2024L Specimen: [id number] Received: 11/18/24-1048 Status: LESVIA Wynne Num: [id number] Spec Type: Cytology Subm Dr: CUAUHTEMOC JACOBO MD Tissues: A FNA SLIDES NOPATH (LEFT INFERIOR THYROID) Procedures: Cyto Int and Re, PAPSTN/9 Age/ Patient Sex Location Account Attending Physician Adrianna Bricekamran Gomez 84/F [facility] [id number] CUAUHTEMOC JACOBO MD SPEC NUM: [id number] RECD: 11/18/24 STATUS: LESVIA REZach NUM: [id number] JACQUE: 11/13/24-[address] [place] [address] DR: CUAUHTEMOC JACOBO MD ENTERED: 11/18/24 [facility] DR: Ashok,Lab SPEC TYPE: Cytology DEPT: MAG GUY ENTERED BY: [id number] RECV BY: [id number] ORDERED: Cyto Int and Re, PAPSTN/9 ORDERED: Cyto Int and Re, PAPSTN/9 Pathological Diagnosis Left inferior thyroid nodule, fine-needle aspiration (ThinPrep and Smear Slides): - Inadequate for evaluation due to acellular specimen - Scant watery colloid in a background of blood, nondiagnostic (Haigler Category: I). Comment: Recommend clinical and radiologic correlation and repeat left thyroid FNA if clinically indicated. Gross Description Received is 30 ml clear colorless fixed fluid for cytology said to have been obtained as Left Inferior Thyroid. ThinPrep preparations are prepared for microscopic examination. Also received are 8 fixed smeared slides and a Veracyte vial stored at -20 for microscopic examination. (/mo) Microscopic Description Microscopic examination is performed. Specimen: [id number] Received: 11/18/24 Status: LESVIA Wynne Num: [id number] Spec Type: Cytology Subm Dr: CUAUHTEMOC JACOBO MD Tissues: A FNA SLIDES NOPATH (LEFT INFERIOR THYROID) Procedures: Cyto Int and Re, PAPSTN/9 Patient: Micheal Brice [id number] (Continued) Specimen: [id number] Received: 11/18/24 (Continued) Signed (signature on file) Madhav Francisco MD 11/19/24 1241 Specimen: [id number] Received: 11/18/24 Status: LESVIA Wynne Num: [id number] Spec Type: Cytology Subm Dr: CUAUHTEMOC JACOBO MD Tissues: A FNA SLIDES NOPATH (LEFT INFERIOR THYROID) Procedures: Cyto Int and Re, PAPSTN/9 Patient: Micheal Brice [id number] (Continued) Specimen: [id number] Received: 11/18/24 (Continued) CPT Codes 26564, 10798 Specimen: [id number] Received: 11/18/24 Status: LESVIA Wynne Num: [id number] Spec Type: Cytology Subm Dr: CUAUHTEMOC JACOBO MD Tissues: A FNA SLIDES NOPATH (LEFT INFERIOR THYROID) Procedures: Cyto Int and Re, PAPSTN/9 Patient: Micheal Brice [id number] (Continued) Signed (signature on file) Madhav Francisco MD 11/19/24 1241Normal [facility] Physician GroupUS Fine Needle Asp/Biopsy, First Lesionon 65-17-6134IW Fine Needle Asp/Biopsy, First LesionEXAMINATION: US Fine [...] Willy Frost MD 11/13/24 3:14 pm Technologist: ,[facility] Abdomen/Pelvis w/o Contraston 45-87-3807EE Abdomen/Pelvis w/o ContrastExam Date/Time: 11/11/2024 12:41 EDT [...] Ignacio Haque MD Transcribed by: BRITTANY Technologist: IndiaBlanchard Valley Health System Blanchard Valley HospitalProvider Orderson 60-41-7425Vytudfme Orders [id number]#1.00OTGTIFFSCCI Hospital [facility] Retroperitoneal Completeon 48-97-9964UY Retroperitoneal CompleteExam Date/Time: 10/29/2024 08:16 EDT Reason [...] Ignacio Haque MD Transcribed by: BRITTANY Technologist: DaphneAcmc Healthcare System GlenbeighRemindersaint john's health system 67-57-6112HdtqzgmfyNglidiudu From: Camila Max To: [facility] - Clinical; [...] requesting pt call back for below results. completed.[facility] HospitalC Urineon 00-79-0012Vflomceu identified Cx Nom (U)Microbiology PROCEDURE: Urine Culture [R1] SOURCE: U Random BODY SITE: COLLECTED DATE/TIME: 10/22/2024 09:17 EDT RECEIVED DATE/TIME: 10/22/2024 17:13 EDT START DATE/TIME: 10/22/2024 17:13 EDT FREE TEXT SOURCE: KIA SAMUEL CNP, CNP, SHELLY A FINAL REPORTS Final Report [] Verified Date/Time: 10/24/2024 08:24 EDT <10,000 cfu/ml Mixed skin contaminants Performing Locations R1: This test was performed at: [facility], [address] [place] [address], [facility] , , PvvampKvyyvvCleveland Clinic Fairview HospitalComment on above:Performed By: #### [id number] #### [facility] [address] [place], [place] [address]Ambulatory Visit Summaryon 20-22-5413Skyfxwzxyn Visit Summary Ambulatory Visit Summary MICHEAL BRICE [...] Appointments Sunday2025 9:30 AM EST With: Where: [address] [address]- Sunday2025 10:20 AM EST With: Camila Max Where: [address] [address]- Medications What How Much When Instructions Unchanged [...] signed up for this yet, please contact [facility] Information Management at [phone] to get signed up today. Language Information Language assistance services are available as needed. [facility] Medicine Office/Clinic Noteon 16-28-4375Qpynht Medicine Office/Clinic NoteFabarnstable county hospital Medicine Office/Clinic Note Chief Complaint Blood in [...] Urnls Dip Stick Auto w/o Microscopy POC 30116 US Retroperitoneal Complete 2. Thyroid nodule (E04.1: [...] 50,000 intl units (1.25 mg) oral capsule, 17884 International_Unit= 1 cap(s), Oral, qWeek, 4 ref (more content not included)...[facility] HospitalComment on above:Result Comment: Electronically Signed By: KIA SAMUEL CNP\.br\Date and Time Signed: 10/22/24 10:03 EDTAmbulatory Visit Summaryon 39-03-5056Dauexwapqs Visit SummaryAmbulatory Visit Summary MICHEAL BRICE :1940 [...] Appointments Sunday2025 9:30 AM EST With: Where: [address] [address]- Sunday2025 10:20 AM EST With: Camila Max Where: [place] [id number]- Medications What How Much When Instructions Unchanged [...] yet, please contact Health Information Management at [phone] to get signed up today. Language Information Language assistance services are available as needed. [facility] Urineon 38-41-0303Kbsetgjp identified Cx Nom (U)Microbiology PROCEDURE: Urine Culture [R1] SOURCE: U CleanCatch BODY SITE: COLLECTED DATE/TIME: 10/14/2024 09:30 EDT RECEIVED DATE/TIME: 10/14/2024 16:50 EDT START DATE/TIME: 10/14/2024 16:50 EDT FREE TEXT SOURCE: Camila Max Jodi L FINAL REPORTS Final Report [] Verified Date/Time: 10/16/2024 11:02 EDT <10,000 cfu/ml Mixed skin contaminants Performing Locations R1: This test was performed at: [facility], [address] [place] [address], [address]- , [place], EszkdeQrtrap Brandenburg CenterComment on above:Performed By: #### [id number] #### [facility] [address] [place] [id number] Freeon 05-25-6713Vnvc T3 [Mass/Vol]4.3 pg/mLInvalid Interpretation Code2.0-4.4Fisher Brandenburg CenterComment on above:Result Comment: Performed at: [facility] [address] [id number] PhD Mark SalcedoPerformed By: #### [id number] #### [facility] [address] [place] [address]Fsclwhhotij 93-41-5800EfuykdnpfElgpvcrai From: Camila Max To: [facility] - Clinical; [...] D 25 Hydroxy 42.9 ng/mL (30.0 - 100.0)[facility] HospitalAmbulatory Visit Summaryon 98-75-2419Zxipbxcqrt Visit Summary Ambulatory Visit Summary MICHEAL BRICE [...] Appointments Sunday2025 9:30 AM EST With: Where: [address] [address]- Sunday2025 10:20 AM EST With: Camila Max Where: [address] [address]- Medications What How Much When Instructions Unchanged [...] signed up for this yet, please contact [employer] at [phone] to get signed up today. Language Information Language assistance services are available as needed. NormalAcmc Healthcare System GlenbeighCMPon 51-79-3042Vdhuinx [Mass/Vol]4.2 g/dLNormal3.3-5.0Acmc Healthcare System GlenbeighComment on above: Performed By: #### [id number] #### [facility] [address] [place], [place] [address]Jefnhpw/Globulin [Mass ratio]1.8 {ratio}Normal1.1-2.2FCincinnati Children's Hospital Medical CenterComment on above:Performed By: #### [id number] #### [facility] [address] [place], [place] [address]Dmq Phos87 Int._Unit/WSgltdf42-94CjdcieAcmc Healthcare System Glenbeigh Comment on above:Performed By: #### [id number] #### [facility] [address] [place], [place] [address]XER04 Int._Unit/LNormal6-46A[facility]c Healthcare System GlenbeighComment on above:Performed By: #### [id number] #### [facility] [address] [place], [place] [address]Proqk gap [Moles/Vol]9 mmol/LNormal6-16Acmc Healthcare System GlenbeighComment on above:Performed By: #### [id number] #### [facility] [address] [place], [place] [address]ZIX15 Int._Unit/LNormal5-43Acmc Healthcare System GlenbeighComment on above:Performed By: #### [id number] #### [facility] [address] [place], [place] [address]Plsg Total0.7 mg/dLNormal0.0-1.1FCincinnati Children's Hospital Medical Center Comment on above:Performed By: #### [id number] #### [facility] [address] [place], [place] [address]LZP/Creat Ratio27 No XieerOrfz63-81LmyzbpAcmc Healthcare System Glenbeigh Comment on above:Performed By: #### [id number] #### [facility] [address] [place], [place] [address]Wbirivz [Mass/Vol]9.8 mg/dLNormal8.9-11.1FCincinnati Children's Hospital Medical CenterComment on above:Performed By: #### [id number] #### [facility] [address] [place], [place] [address]Hcnhkncy [Moles/Vol]106 mmol/DQtqrgt925-857LqpxsjAcmc Healthcare System GlenbeighComment on above:Performed By: #### [id number] #### [facility] [address] [place], [place] [address]JU4 [Moles/Vol]28 mmol/NCrbvqb74-61VpxpljAcmc Healthcare System Glenbeigh Comment on above:Performed By: #### [id number] #### [facility] [address] [place], [place] [address]Upxpzqifio [Mass/Vol]0.6 mg/dLNormal0.5-1.3FCincinnati Children's Hospital Medical CenterComment on above:Performed By: #### [id number] #### [facility] [address] [place], [place] [address]Ooscmpho (S) [Mass/Vol]2.3 g/dLNormal1.4-4.0Acmc Healthcare System GlenbeighComment on above:Performed By: #### [id number] #### [facility] [address] [place], [place] [address]Thjlktx [Mass/Vol]92 mg/xBMfsels22-602CukvlpAcmc Healthcare System GlenbeighComment on above:Performed By: #### [id number] #### [facility] [address] [place], [place] [address]Eixzbkvfq [Moles/Vol]4.2 mmol/LNormal3.5-5.3FCincinnati Children's Hospital Medical CenterComment on above:Performed By: #### [id number] #### [facility] [address] [place], [place] [address]Qxfembw [Mass/Vol]6.5 g/dLNormal6.0-7.8Acmc Healthcare System GlenbeighComment on above:Performed By: #### [id number] #### [facility] [address] [place], [place] [address]Anmruv [Moles/Vol]139 mmol/LTiscis593-456GqusmrAcmc Healthcare System GlenbeighComment on above:Performed By: #### [id number] #### [facility] [address] [place], [place] [address]Gush nitrogen [Mass/Vol]16 mg/dLNormal5-21Acm[facility] Healthcare System GlenbeighComment on above:Performed By: #### [id number] #### [facility] [address] [place], [place] [address]Aazbio Medicine Office/Clinic Noteon 41-42-8168Odwrfn Medicine Office/Clinic NoteFabarnstable county hospital Medicine Office/Clinic Note HPI Staff Micheal is [...] needed Ordered: Comprehensive Metabolic Panel Free T4 [facility] Internal Ambulatory Referral T3 Free Thyroid Stimulating Hormone Vitamin D 25 Hydroxy 2. Hair thinning (L65.9: Nonscarring hair loss, unspecified) will check thyroid levels today Ordered: Comprehensive Metabolic Panel Free T4 [facility] Internal Ambulatory Referral T3 Free Thyroid Stimulating Hormone Vitamin D 25 Hydroxy 3. Flank pain (R10.9: Unspecified abdominal pain) a few weeks ago she was having right flank pain. u/a in office negative for blood. Ordered: [facility] Internal Ambulatory Referral 4. 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 patient states she fears she has been chipped . when she was given a vaccine in that arm. much reassurance provided thatnetta does not have a chip in her arm. Ordered: [facility] Internal Ambulatory Referral 5. Non-smoker (Z78.9: Other specified health status) continue not smoking Ordered: Body Mass Index (BMI) documented 3008F Comprehensive Metabolic Panel Current tobacco non-user 1036F Depression Screening Negative 3352F Free T4 [facility] Internal Ambulatory Referral Influenza immunization status assessed [...] Stomach. Medications Acidophilus Pro (more content not included)...[facility] Comment on above:Result Comment: Electronically Signed By: Camila Max\.sonido\Date and Time Signed: 10/14/24 09:31 EDTFree T4on 75-71-0124Hnhn T4 [Mass/Vol]0.87 ng/dLNormal0.58-1.64Acm[facility] Healthcare System GlenbeighComment on above: Performed By: #### [id number] #### [facility] [address] [place], [place] [address]ZZYlx 27-72-6774OJT Qn0.08 m[IU]/LLow0.34-5.60A[facility] Healthcare System GlenbeighComment on above:Performed By: #### [id number] #### [facility] [address] [place], [place] [address]Bxdpwlc D 25 Hydroxyon 19-64-5189Xjapxns D 25 Vbiwrjw48.9 ng/mL Rvckna89.0-100.0A[facility] System GlenbeighComment on above:Performed By: #### [id number] #### [facility] [address] [place], [place] [address]kJUAam 47-59-1617uKGX80 mL/min/1.73 a0Bykwdx>=59Acmc Healthcare System GlenbeighComment on above:Performed By: #### [id number] #### [facility] [address] [place], [place] [address]VF Jt Injection/Arthrocentesis: L kneeon 34-14-6423CjfdLuis Felipe Lopes MD 06/13/2024 10:56 AM LG Jt Injection/Arthrocentesis: L knee Performed by: Luis Felipe Lopes MD Authorized by: Luis Felipe Lopes MD CPT 77147 - Large Joint Arthrocentesis: Consent given by: [...] complicationsOhioHealthOhioHealthXR KNEES STANDING BILATERAL AP/ LAT EACHon 69-79-2962NF KNEES STANDING BILATERAL AP/ LAT EACHMultiple radiographic [...] LOPES on SunJun 13, 2024 10:52:24 AM [facility] on above:Order Comment: Injury/Trauma or Illness?:Illness/Other How long have you had these symptoms (acute/chronic)?:Unknown Reason for exam?:na History of cancer?:na Surgeries, chemotherapy, or radiation?:na Type of Exam?:Unknown Additional signs and symptoms?:naXR LUMBAR SPINE 2-3 VIEWS (STANDARD)on 01-44-5759VB LUMBAR SPINE 2-3 VIEWS (STANDARD)AP lateral views lumbar spine show multilevel degenerative change with mild L4-L5 spondylolisthesis Dictated by: LUIS FELIPE LOPES on SunJun 13, 2024 10:52:43 AM EDT Transcribed by: LUIS FELIPE LOEPS on SunJun 13, 2024 10:52:43 AM EDT Finalized by: LUIS FELIPE LOPES on SunJun 13, 2024 10:52:43 AM [facility] on above:Order Comment: Injury/Trauma or Illness?:Illness/Other How long have you had these symptoms (acute/chronic)?:Unknown Reason for exam?:NA History of cancer?:na Surgeries, chemotherapy, or radiation?:na Type of Exam?:Unknown Additional signs and symptoms?:[facility] Medicine Office/Clinic Noteon 04-25-2024 Family Medicine Office/Clinic NoteFabarnstable county hospital Medicine Office/Clinic Note HPI Staff Micheal is [...] disorders) u/s right upper arm faxed to [facility]. will refer to general surgery if [...] acel/tetanus adult 08/07/2013 Recorded tetanus-diphtheria toxoids 03/19/2004 [facility] Comment on above:Result Comment: Electronically Signed By: Camila Max\.br\Date and Time Signed: 04/25/24 12:52 ESTAmbulatory Visit Summaryon 72-59-9342Fdzaaotwec Visit SummaryAmbulatory Visit Summary MICHEAL BRICE :1940 [...] Appointments Sunday2025 9:30 AM EST With: Where: [address] [phone]- Sunday2025 10:20 AM EST With: Camila Max Where: [address] [address]- Medications What How Much When Instructions Unchanged [...] about eating or d (more content not included)...[facility] HospitalCHEMISTRYOrdered By: SYSTEM SYSTEM on 83-29-6790Wjraqmv [Mass/Vol]4.2 g/dLNormal3.3 - 5.0 gm/dL Remisol ChemAlbumin/Globulin [Mass ratio]2.0 {ratio}Normal1.1 - 2.2Remisol Chem ALP [Catalytic activity/Vol]86 [iU]/qAtrckj83 - 98 Int._Unit/LRemisol ChemALT No additional P-5'-P [Catalytic activity/Vol]15 [iU]/dNormal6 - 46 Int._Unit/L Remisol ChemAnion gap [Moles/Vol]10 mmol/LNormal6 - 16 mEq/LRemisol ChemAST [Catalytic activity/Vol]18 [iU]/dNormal5 - 43 Int._Unit/LRemisol ChemBilirubin [Mass/Vol]0.6 mg/dLNormal0.0 - 1.1 mg/dLRemisol ChemCalcium [Mass/Vol]9.6 mg/dL Normal8.9 - 11.1 mg/dLRemisol ChemChloride [Moles/Vol]104 mmol/BPatega110 - 111 mmol/LRemisol ChemCholesterol [Mass/Vol]221 mg/iNMzbo684 - 200 mg/dLRemisol Chem Cholesterol in HDL [Mass/Vol]56 mg/dLInvalid Interpretation CodeRemisol Chem Comment on above:Result Comment: '>= 60 LOW RISK' '<= 40 HIGH RISK'Cholesterol in LDL [Mass/Vol]159 mg/dLHigh<=129mg/dLRemisol ChemCholesterol in VLDL [Mass/Vol]14 mg/dLNormal7 - 40 mg/dLRemisol ChemCO2 [Moles/Vol]28 mmol/EObncrd15 - 31 mmol/LRemisol ChemCreatinine [Mass/Vol]0.7 mg/dLNormal0.5 - 1.3 mg/dLRemisol ShybkZTC40 mL/min/1.73 y0Pzxyvy>=59mL/min/1.73 v2Tvpyrxt ChemGlobulin (S) [Mass/Vol]2.1 g/dLNormal1.4 - 4.0 gm/dLRemisol Chem Glucose [Mass/Vol]95 mg/rUGurpig42 - 199 mg/dLRemisol ChemPotassium [Moles/Vol] 4.4 mmol/LNormal3.5 - 5.3 mmol/LRemisol ChemProtein [Mass/Vol]6.3 g/dLNormal6.0 - 7.8 gm/dLRemisol ChemSodium [Moles/Vol]138 mmol/HNgqrur952 - 145 mmol/LRemisol ChemTriglyceride [Mass/Vol]69 mg/dLNormal<=149mg/dLRemisol ChemTSH Qn0.50 m[IU]/LNormal0.34 - 5.60 mcIU/mLRemisol ChemUrea nitrogen [Mass/Vol]20 mg/dL Normal5 - 21 mg/dLRemisol ChemUrea nitrogen/Creatinine [Mass ratio]29 mg/mgHigh 10 - 20Remisol ChemCMPon 33-02-5084Rciixov [Mass/Vol]4.2 g/dLNormal3.3-5.0A[facility] System GlenbeighComment on above:Performed By: #### [id number] #### [facility] [address] [place], [place] [address]Kcsqnzi/Globulin (S) [Mass conc ratio]2.5Phianv9.1-2.2FCincinnati Children's Hospital Medical CenterComment on above:Performed By: #### [id number] #### [facility] [address] [place], [place] [address]FKL [Catalytic activity/Vol]86 Int._Unit/DQbapqq81-15IwfybcAcmc Healthcare System GlenbeighComment on above:Performed By: #### [id number] #### [facility] [address] [place], [place] [address]TAG No additional P-5'-P [Catalytic activity/Vol]15 Int._Unit/L Normal6-46A[facility] Healthcare System GlenbeighComment on above:Performed By: #### [id number] #### [facility] [address] [place], [place] [address]Hyrue gap [Moles/Vol]10 mmol/LNormal6-16[facility] GlenbeighComment on above:Performed By: #### [id number] #### [facility] [address] [place], [place] [address]OEY [Catalytic activity/Vol]18 Int._Unit/LNormal5-43[facility] GlenbeighComment on above:Performed By: #### [id number] #### [facility] [address] [place], [place] [address]Okrixvxso [Mass/Vol]0.6 mg/dLNormal0.0-1.1FCincinnati Children's Hospital Medical CenterComment on above:Performed By: #### [id number] #### [facility] [address] [place], [place] [address]Wjlqbbd [Mass/Vol]9.6 mg/dLNormal8.9-11.1FCincinnati Children's Hospital Medical CenterComment on above:Performed By: #### [id number] #### [facility] [address] [place], [place] [address]Dqkxdnih [Moles/Vol]104 mmol/HDwwttn646-292RmfvwmAcmc Healthcare System GlenbeighComment on above:Performed By: #### [id number] #### [facility] [address] [place], [place] [address]MD4 [Moles/Vol]28 mmol/EThyqhs08-13YqdxpmAcmc Healthcare System [facility] Comment on above:Performed By: #### [id number] #### [facility] [address] [place], [place] [address]Xrfdzqkiky [Mass/Vol]0.7 mg/dLNormal0.5-1.3FCincinnati Children's Hospital Medical CenterComment on above:Performed By: #### [id number] #### [facility] [address] [place], [place] [address]Pkjkarcl (S) [Mass/Vol]2.1 g/dLNormal1.4-4.0[facility] GlenbeighComment on above:Performed By: #### [id number] #### [facility] [address] [place], [place] [address]Jxhmfdh [Mass/Vol]95 mg/bGCkozfp59-030YxdncdAcmc Healthcare System GlenbeighComment on above:Performed By: #### [id number] #### [facility] [address] [place], [place] [address]Zgxbgkkpm [Moles/Vol]4.4 mmol/LNormal3.5-5.3FCincinnati Children's Hospital Medical CenterComment on above:Performed By: #### [id number] #### [facility] [address] [place], [place] [address]Uyjasla [Mass/Vol]6.3 g/dLNormal6.0-7.8[facility] GlenbeighComment on above:Performed By: #### [id number] #### [facility] [address] [place], [place] [address]Qajxhd [Moles/Vol]138 mmol/TVakrow201-409YjtzirAcmc Healthcare System GlenbeighComment on above:Performed By: #### [id number] #### [facility] [address] [place], [place] [address]Wouz nitrogen [Mass/Vol]20 mg/dLNormal5-21[facility] GlenbeighComment on above:Performed By: #### [id number] #### [facility] [address] [place], [place] [address]Ixra nitrogen/Creatinine [Mass ratio]29 No KgloaUznk85-71XuwzpvAcmc Healthcare System GlenbeighComment on above:Performed By: #### [id number] #### [facility] [address] [place], [place] [address]Qzomcv Medicine Office/Clinic Noteon 96-81-5249Vmpvva Medicine Office/Clinic NoteFami Medicine Office/Clinic Note Chief [...] diabetes. DM s (more content not included)... [facility] HospitalComment on above:Result Comment: Electronically Signed By: Camila Max\.br\Date and Time Signed: 04/10/24 12:37 EST\.br\Electronically Co-Signed By: Shabnam Barrientos\.br\Date and Time Co-Signed: 04/10/24 12:05 [facility] Note [facility] Staff Christel is an 84 year old [...] E&M of Est. Patient Low 20-29 Min 91016 Lipid Panel Thyroid Stimulating Hormone 2. S/P [...] E&M of Est. Patient Low 20-29 Min 87314 Lipid Panel Thyroid Stimulating Hormone 3. Hypercholesteremia (E78.00: Pure hypercholesterolemia, unspecified) lipid panel drawn in office today Ordered: Comprehensive Metabolic Panel E&M of Est. Patient Low 20-29 Min 81774 Lipid Panel Thyroid Stimulating Hormone 4. BMI 35.0-35.9,adult (Z68.35: Body mass index [BMI] 35.0-35.9, adult) BMI education given Ordered: Comprehensive Metabolic Panel E&M of Est. Patient Low 20-29 Min 14280 Lipid Panel Thyroid Stimulating Hormone 5. Non-smoker (Z78.9: Other specified health status) continue not smoking Ordered: Comprehensive Metabolic Panel E&M of Est. Patient Low 20-29 Min 23891 Lipid Panel Thyroid Stimulating Hormone Follow-up No [...] acel/tetanus adult 08/07/2013 Recorded tetanus-diphtheria toxoids 03/19/2004 RecordedNoalAcmc Healthcare System [facility] Comment on above:Result Comment: Electronically Signed By: Camila Max.br\Date and Time Signed: 04/10/24 10:38 ESTLipid Panelon 04-10-2024 Cholesterol [Mass/Vol]221 mg/zPPmun559-890QhtwwvAcmc Healthcare System GlenbeighComment on above:Performed By: #### [id number] #### [facility] [address] [place], [place] [address]Dshfiiibkez in HDL [Mass/Vol]56 mg/dLInvalid Interpretation CodeAcmc Healthcare System GlenbeighComment on above:Result Comment: '>= 60 LOW RISK' '<= 40 HIGH RISK'Performed By: #### [id number] #### [facility] [address] [place], [place] [address]Tzkgpomhrmd in LDL [Mass/Vol]159 mg/dLHigh<=129A[facility] GlenbeighComment on above:Performed By: #### [id number] #### [facility] [address] [place], [place] [address]Gbmytesssir in VLDL [Mass/Vol]14 mg/dLNormal7-40[facility] GlenbeighComment on above:Performed By: #### [id number] #### [facility] [address] [place], [place] [address]Vdepgattycrq [Mass/Vol]69 mg/dLNormal<=149A[facility] GlenbeighComment on above:Performed By: #### [id number] #### [facility] [address] [place], [place] [address]WRHhq 13-29-5079SUV Qn0.50 m[IU]/LNormal0.34-5.60[facility] GlenbeighComment on above:Performed By: #### [id number] #### [facility] [address] [place], [place] [address]qLQEeg 72-10-5528xCLQ05 mL/min/1.73 h9Eysfhv>=59A[facility] GlenbeighComment on above:Performed By: #### [id number] #### [facility] [address] [place], [place] [address]A DIFFICILE BY PCRon 08-27-2023. difficile toxin genes KELVIN+probe Ql (Stl)TOXIGENIC C DIFF Positive (qualifier value) 027 NAP1 Negative (qualifier value)NormalPRNEGProMediMercy SouthwestComment on above: Performed By: #### [id number] #### [facility] ([id number]) [address] [place], [place] [address]Fmtu,Aerobe/Anaerobeon 13-10-4279Htym,Aerobe/AnaerobeSpecimen Description .ABDOMEN Direct Exam MANY NEUTROPHILS MODERATE GRAM POSITIVE COCCI IN PAIRS MODERATE GRAM NEGATIVE RODS Culture BACTEROIDES THETAIOTAOMICRON MODERATE GROWTH BETA LACTAMASE POSITIVE Identificati on by MALDI-TOF BACTEROIDES STERCORIS MODERATE GROWTH BETA LACTAMASE POSITIVE Identification by MALDI-TOF NO AEROBIC ORGANISMS ISOLATED Report Status FINAL 4AbnClinton Memorial HospitalComment on above: Performed By: #### AANC #### [facility] [address] [place] [address] Wireless Operator: Salinas Escalante MD [facility] [address] [place] [address] Wireless Operator: Willy Henson [facility] auto differentialon [id number] (Bld) [#/Vol]0.12 10*3/uLBON PRESCOTT [facility] MEDICAL CENTEROURS PROTESTANT HOSPITALBasophils/100 WBC (Bld)1 %0 - 2 %[facility] CENTEREosinophils (Bld) [#/Vol]0.00 10*3/uLBON [facility] CENTEROURS PROTESTANT HOSPITALEosinophils/100 WBC (Bld)0 %Low1 - 4 %[facility] MEDICAL CENTERErythrocyte distribution width (RBC) [Ratio]12.5 %11.8 - 14.4 %[facility] Hematocrit (Bld) [Volume fraction]35.0 %Low36.3 - 47.1 %[facility] Hemoglobin (Bld) [Mass/Vol]10.9 g/dLLow11.9 - 15.1 g/dLBON [facility] Immature granulocytes (Bld) [#/Vol]0.12 10*3/uLBON MIAMI VALLEY HOSPITALImmature granulocytes/100 WBC (Bld)1 %Euiq0GXW MI[facility] VALLEY HOSPITALInterpretation and review of laboratory resultsAbnormalBON MIAMI VALLEY HOSPITALLymphocytes/100 WBC (Bld)74 %High24 - 43 %B[facility] HOSPITALLymphocytes/100 WBC (Bld)8.73 % HighBON MIAMI VALLEY HOSPITALMCH (RBC) [Entitic mass]28.6 pg25.2 - 33.5 pgBON CHILLICOTHE HOSPITALHC (RBC) [Mass/Vol]31.1 g/dL28.4 - 34.8 g/dLBON CHILLICOTHE HOSPITALV (RBC) [Entitic vol]91.9 fL82.6 - 102.9 fLSOUTHERN VIRGINIA REGIONAL MEDICAL CENTERMonocytes/100 WBC (Bld)4 %3 - 12 %[facility]OSPITALMonocytes/100 WBC (Bld)0.47 %[facility] CENTERMorphology Ki (Bld) [Interp]NormalBON MIAMI VALLEY HOSPITALNeutrophils/100 WBC (Bld)20 %Low36 - 65 %[facility] HOSPITALNucleated RBC/100 WBC (Bld) [Ratio]0.0 %0.0 per 100 WBCBON MIAMI VALLEY HOSPITALPlatelet mean volume (Bld) [Entitic vol]10.8 fL8.1 - 13.5 fLSOUTHERN VIRGINIA REGIONAL MEDICAL CENTERPlatelets (Bld) [#/Vol]240 10*3/uLBON MIAMI VALLEY HOSPITALRBC (Bld) [#/Vol]3.81 10*6/uLLow3.95 - 5.11 m/uLSOUTHERN VIRGINIA REGIONAL MEDICAL CENTERSegmented neutrophils/100 WBC (Bld)2.36 %BON [facility] VALLEY HOSPITALWBC other (Bld) [#/Vol] 11.8HighSENTARA MARTHA JEFFERSON HOSPITALCBC with Diffon 55-86-8749Gdz. Basophil0.12 k/uLNormal0.0-0.2MercMt. Sinai HospitalComment on above:Performed By: #### CDP, CMPX #### [facility] [address] [address] Wireless Operator: Chapin Lord.Imm.Granulocyte0.12 k/uLNormal0.00-0.30MerDanbury HospitalComment on above:Performed By: #### CDP, CMPX #### [facility] [address] [address] Wireless Operator: Chapin Lord.Neutrophil (Seg)2.36 k/uLNormal1.50-8.10[facility] HospitalComment on above:Performed By: #### CDP, CMPX #### [address] [place] [address] Wireless Operator: Willy Henson MDBasophils/100 WBC (Bld)1 %Normal0-2Mer[facility] Eden HospitalComment on above:Performed By: #### CDP, CMPX #### [address] [place] [address] Wireless Operator: Willy Henson MDEosinophils (Bld) [#/Vol]0.00 10*3/uLNormal 0.00-0.44MerSelect Medical [facility] Clinic Rehabilitation Hospital, Beachwood HospitalComment on above:Performed By: #### CDP, CMPX #### [address] [place], [place] [address] Wireless Operator: ADOLFO Lordosinophils/100 WBC (Bld)0 %Low1-4[facility], [facility] HospitalComment on above:Performed By: #### DIDI, CMPX #### [address] [place] [address] Wireless Operator: Wlily Henson MDImmature granulocytes/100 WBC (Bld)1 %Nihr9VqrvgCherrington HospitalComment on above:Performed By: #### CDP, CMPX #### [address] [place] [address] Wireless Operator: Willy Henson MDLymphocytes (Bld) [#/Vol]8.73 10*3/uLHigh1.10-3.70 [facility]rington HospitalComment on above:Performed By: #### CDP, CMPX #### [address] [place], [place] [address] Wireless Operator: Erick Lordmphocytes/100 WBC (Bld)74 %Vhdl56-94Vwzdf Tiffin HospitalComment on above:Performed By: #### CDP, CMPX #### [address] [place], [place] [address] Wireless Operator: JOSE L Lordonocytes (Bld) [#/Vol]0.47 10*3/uLNormal0.10-1.20 [facility] HospitalComment on above:Performed By: #### CDP, CMPX #### [address] [place], [facility]83 Wireless Operator: JOSE L Lordonocytes/100 WBC (Bld)4 %Normal3-12[facility], [facility] HospitalComment on above:Performed By: #### CDP, CMPX #### [address] [place], [place] [address] Wireless Operator: JOSE L Lordorphology Ki (Bld) [Interp]NormalNormalCherrington HospitalComment on above:Performed By: #### CDP, CMPX #### [address] [place], [place] [address] Wireless Operator: Willy Henson MDNeutrophil (Seg)20 %Exk04-85AdvouCherrington Hospital Comment on above:Performed By: #### CDP, CMPX #### [address] [place], [facility]83 Wireless Operator: Willy Henson MDErythrocyte distribution width (RBC) [Ratio]12.5 % Paxxjx44.8-14.4C[facility]rington HospitalComment on above:Performed By: #### CDP, CMPX #### [address] [place], [place] [address] Wireless Operator: Willy Henson MDHematocrit (Bld) [Volume fraction]35.0 %Low 36.3-47.1Mercy Eden HospitalComment on above:Performed By: #### CDP, CMPX #### [address] [place], [place] [address] Wireless Operator: Willy Henson MDHemoglobin (Bld) [Mass/Vol]10.9 g/dLLow11.9-15.1 [facility] HospitalComment on above:Performed By: #### CDP, CMPX #### [address] [place], [place] [address] Wireless Operator: JOSE L LordCH (RBC) [Entitic mass]28.6 pzEmvkol68.2-33.5 Cherrington HospitalComment on above:Performed By: #### CDP, CMPX #### [address] [place] [address] Wireless Operator: KIRBY LordC (RBC) [Mass/Vol]31.1 g/pQDvwbzo86.4-34.8C[facility]rington HospitalComment on above:Performed By: #### DIDI, CMPX #### [address] [place], [place] [address] Wireless Operator: JOSE L LordCV (RBC) [Entitic vol]91.9 vYInjzdl75.6-102.9 [facility] HospitalComment on above:Performed By: #### DIDI, CMPX #### [address] [place], [facility]83 Wireless Operator: Willy Henson MDNRBC Automated0.0 per 100 WBCNormal0.0[facility], [facility] HospitalComment on above:Performed By: #### CDP, CMPX #### [address] [place] [address] Wireless Operator: DESTINEE Lordlatelet mean volume (Bld) [Entitic vol]10.8 fL Normal8.1-13.5Cherrington HospitalComment on above:Performed By: #### CDP, CMPX #### [address] [place], [place] [id number] Wireless Operator: Charlene Lord ([facility]) [#/Vol]240 10*3/qEKtvsva451-630 [facility], [facility] HospitalComment on above:Performed By: #### CDP, CMPX #### [address] [place], [place] [id number] Wireless Operator: MALORIE Lord ([facility]) [#/Vol]3.81 10*6/uLLow3.95-5.11[facility] HospitalComment on above:Performed By: #### CDP, CMPX #### [address] [place] [address] Wireless Operator: CHRISTOPH Lord ([facility]) [#/Vol]11.8 10*3/uLHigh3.5-11.3Mmercy health allen hospitaly Eden HospitalComment on above:Performed By: #### CDP, CMPX #### [address] [place], [place] [address]383 Wireless Operator: PATTIE Lordomp Metabolic Pr/rfx MGon 13-03-5135Jgeluww [Mass/Vol]3.4 g/dLLow3.5-5.2Mer[facility] Eden HospitalComment on above:Performed By: #### CDP, CMPX #### [address] [place], [place] [address]83 Wireless Operator: Willy Henson MDAlbumin/Glob Ratio1.1Lvwiiu0.0-2.5[facility], [facility] HospitalComment on above:Performed By: #### CDP, CMPX #### [address] [place] [address] Wireless Operator: Shelli Lordkaline Fvkh898 U/WOhim47-262Jagae Tiffin HospitalComment on above:Performed By: #### CDP, CMPX #### [facility] [address] [place] [address] [place] [address] Wireless Operator: Willy Henson MDALT [Catalytic activity/Vol]13 U/LNormal5-33C[facility]rington HospitalComment on above:Performed By: #### CDP, CMPX #### [address] [place] [address] Wireless Operator: Willy Henson MDAnion gap [Moles/Vol]10 mmol/LNormal9-17Cherrington HospitalComment on above:Performed By: #### CDP, CMPX #### [address] [place] [address] Wireless Operator: Willy Henson MDAST [Catalytic activity/Vol]15 U/LNormal<32MerDanbury HospitalComment on above:Performed By: #### CDP, CMPX #### [address] [place], [place] [address] Wireless Operator: Willy Henson MDBilirubin [Mass/Vol]0.2 mg/dLLow0.3-1.2MSt. Francis HospitalComment on above:Performed By: #### CDP, CMPX #### [address] [place] [address] Wireless Operator: Willy Henson MDBUN/CRE Kfnxa18Anuw7-36FslbaCherrington Hospital Comment on above:Performed By: #### CDP, CMPX #### [address] [place] [address] Wireless Operator: PATTIE Lordalcium [Mass/Vol]9.1 mg/dLNormal8.6-10.4Cherrington HospitalComment on above:Performed By: #### CDP, CMPX #### [address] [place], [place] [address]83 Wireless Operator: PATTIE Lordhloride [Moles/Vol]107 mmol/SQrtgwd84-531PmwqkCherrington HospitalComment on above:Performed By: #### CDP, CMPX #### [address] [place] [address] Wireless Operator: Willy Henson MDCO2 [Moles/Vol]23 mmol/NLimbfk80-19HbhgvCherrington HospitalComment on above:Performed By: #### CDP, CMPX #### [address] [place], [place] [address] Wireless Operator: PATTIE Lordreatinine [Mass/Vol]0.8 mg/dLNormal0.5-0.9Cherrington HospitalComment on above:Performed By: #### CDP, CMPX #### [address] [place] [address] Wireless Operator: Willy Henson MDGFR/1.73 sq M.predicted among non-blacks MDRD (S/P/Bld) [Vol rate/Area]74 mL/min/{1.73_m2}Normal>60[facility] Comment on above:Result Comment: These results [...] tubular secretion.Performed By: #### CDP, CMPX #### [address] [place] [address] Wireless Operator: Willy Henson MDGlucose [Mass/Vol]91 mg/tOVgpobf09-86GtpebSt. Francis HospitalComment on above:Performed By: #### CDP, CMPX #### [address] [place] [address] Wireless Operator: Willy Henson MDPotassium [Moles/Vol]4.2 mmol/LNormal3.7-5.3MSelect Medical [facility] Rehabilitation Hospital HospitalComment on above:Performed By: #### CDP, CMPX #### [address] [place] [address] Wireless Operator: Willy Henson MDProtein [Mass/Vol]5.9 g/dLLow6.4-8.3MSelect Medical [facility] Rehabilitation Hospital HospitalComment on above:Performed By: #### CDP, CMPX #### [address] [place] [address] Wireless Operator: Willy Henson MDSodium [Moles/Vol]140 mmol/BYesbnw594-626GayrcCherrington HospitalComment on above:Performed By: #### CDP, CMPX #### [address] [place] [address] Wireless Operator: Willy Henson MDUrea nitrogen [Mass/Vol]17 mg/dLNormal8-23Cherrington HospitalComment on above:Performed By: #### CDP, CMPX #### [address] [place] [address] Wireless Operator: PATTIE Lordomprehensive Metabolic Panel w/ Reflex to MGon 55-30-5436Qqvjlqi [Mass/Vol]3.4 g/dLLow3.5 - 5.2 g/dLB[facility] Albumin/Globulin [Mass ratio]1.4 {ratio}1.0 - 2.5B[facility] VALLEY HOSPITALALP [Catalytic activity/Vol]105 U/LHigh35 - 104 U/LBON MIAMI VALLEY HOSPITALALT [Catalytic activity/Vol]13 U/L5 - 33 U/LBON [facility] VALLEY HOSPITALAnion gap [Moles/Vol]10 mmol/L9 - 17 mmol/LBON MIAMI VALLEY HOSPITALAST [Catalytic activity/Vol]15 U/LNINF - 32 U/LBON [facility]LEY HOSPITALBilirubin [Mass/Vol]0.2 mg/dLLow0.3 - 1.2 mg/dLBON [facility] HEALTHCalcium [Mass/Vol]9.1 mg/dL8.6 - 10.4 mg/dLBON MIAMI VALLEY HOSPITALChloride [Moles/Vol]107 mmol/L98 - 107 mmol/L [facility] CENTERCO2 [Moles/Vol]23 mmol/L20 - 31 mmol/LBON MIAMI VALLEY HOSPITALCreatinine [Mass/Vol]0.8 mg/dL0.5 - 0.9 mg/dLBON MIAMI VALLEY HOSPITALEst, Glom Filt Rate74- PINFBON MIAMI VALLEY HOSPITALComment on above: These results are not [...] secretion. Glucose [Mass/Vol]91 mg/dL70 - 99 mg/dLBON MIAMI VALLEY HOSPITALInterpretation and review of laboratory resultsAbnormalBON MIAMI VALLEY HOSPITALPotassium [Moles/Vol]4.2 mmol/L3.7 - 5.3 mmol/LBON [facility]I VALLEY HOSPITALProtein [Mass/Vol] 5.9 g/dLLow6.4 - 8.3 g/dLBON MIAMI VALLEY HOSPITALSodium [Moles/Vol]140 mmol/L135 - 144 mmol/LBON [facility]AMI VALLEY HOSPITALUrea nitrogen [Mass/Vol]17 mg/dL8 - 23 mg/dLBON MIAMI VALLEY HOSPITALUrea nitrogen/Creatinine [Mass ratio]21 mg/mgHigh9 - 20BON [facility] HEALTHEKG Rhythm Stripon [id number] MEDICAL CENTERCBC auto differentialon [id number] (Bld) [#/Vol] 0.00 10*3/uLBON MIAMI VALLEY HOSPITALBasophils/100 WBC (Bld)0 %0 - 2 %[facility] CENTEREosinophils (Bld) [#/Vol]0.00 10*3/uLBON [facility]I [facility]LEY [facility]OSPITAL Eosinophils/100 WBC (Bld)0 %Low1 - 4 %[facility] MEDICAL CENTERErythrocyte distribution width (RBC) [Ratio]12.2 %11.8 - 14.4 %[facility] Hematocrit (Bld) [Volume fraction]30.9 %Low36.3 - 47.1 %[facility] Hemoglobin (Bld) [Mass/Vol]9.9 g/dLLow11.9 - 15.1 g/dLB[facility]I [facility]LEY [facility]OS[facility] Immature granulocytes (Bld) [#/Vol]0.00 10*3/uLBON SECPARMA COMMUNITY GENERAL HOSPITALImmature granulocytes/100 WBC (Bld)0 %0[facility] CENTERInterpretation and review of laboratory resultsAbnormalBON MIAMI VALLEY HOSPITALLymphocytes/100 WBC (Bld)56 %High24 - 43 %[facility] CENTERLymphocytes/100 WBC (Bld)5.71 %HighBON CHILLICOTHE HOSPITALH (RBC) [Entitic mass]28.6 pg25.2 - 33.5 pgCENTRA VIRGINIA BAPTIST HOSPITALHC (RBC) [Mass/Vol]32.0 g/dL28.4 - 34.8 g/dLBON CHILLICOTHE HOSPITALV (RBC) [Entitic vol]89.3 fL82.6 - 102.9 fLSOUTHERN VIRGINIA REGIONAL MEDICAL [facility]ENTER Monocytes/100 WBC (Bld)8 %3 - 12 %[facility] CENTERMonocytes/100 WBC (Bld)0.82 %[facility]ICAL CENTERMorphology Ki (Bld) [Interp]NormalBON SECPARMA COMMUNITY GENERAL HOSPITALNeutrophils/100 WBC (Bld)36 %36 - 65 %[facility] MEDICAL CENTERNucleated RBC/100 WBC (Bld) [Ratio]0.0 %0.0 per 100 WBCBON MIAMI VALLEY HOSPITALPlatelet mean volume (Bld) [Entitic vol]11.1 fL8.1 - 13.5 fLCARILION STONEWALL JACKSON HOSPITAL HEALTHPlatelets (Bld) [#/Vol]222 10*3/uLBON MIAMI VALLEY HOSPITALRBC (Bld) [#/Vol]3.46 10*6/uLLow3.95 - 5.11 m/[facility] Medical CenterSegmented neutrophils/100 WBC (Bld)3.67 %B[facility] VALLEY HOSPITALWBC other (Bld) [#/Vol] 10.2B[facility] HEALTHCB with Diffon 08-02-2023 Abs. Basophil0.00 k/uLNormal0.0-0.2[facility] Eden HospitalComment on above: Performed By: #### REINALDO, CDP #### [address] [place] [address] Wireless Operator: Chapin Lord.Imm.Granulocyte0.00 k/uLNormal0.00-0.30[facility] HospitalComment on above:Performed By: #### REINALDO, CDP #### [address] [place] [address] Wireless Operator: Chapin Lord.Neutrophil (Seg)3.67 k/uLNormal1.50-8.10MerSelect Medical [facility] Hospital, Beach[facility] HospitalComment on above:Performed By: #### REINALDO, CDP #### [address] [place] [address] Wireless Operator: Willy Henson MDBasophils/100 WBC (Bld)0 %Normal0-2[facility] HospitalComment on above:Performed By: #### BMP, CDP #### [address] [place], [place] [address] Wireless Operator: Willy Henson MDEosinophils (Bld) [#/Vol]0.00 10*3/uLNormal 0.00-0.44[facility] HospitalComment on above:Performed By: #### REINALDO, CDP #### [address] [place] [address] Wireless Operator: Willy Henson MDEosinophils/100 WBC (Bld)0 %Low1-4[facility] HospitalComment on above:Performed By: #### BMP, CDP #### [address] [place] [address] Wireless Operator: Willy Henson MDImmature granulocytes/100 WBC (Bld)0 %Kpozcu3W[facility] Eden HospitalComment on above:Performed By: #### BMP, CDP #### [address] [place] [address] Wireless Operator: Willy Henson MDLymphocytes (Bld) [#/Vol]5.71 10*3/uLHigh1.10-3.70 [facility] HospitalComment on above:Performed By: #### BMP, CDP #### [address] [place] [address] Wireless Operator: Willy Henson MDLymphocytes/100 WBC (Bld)56 %Awcl95-66Wmaat Eden HospitalComment on above:Performed By: #### BMP, CDP #### [address] [place] [address] Wireless Operator: JOSE L Lordonocytes (Bld) [#/Vol]0.82 10*3/uLNormal0.10-1.20 [facility] HospitalComment on above:Performed By: #### BMP, CDP #### [address] [place] [address] Wireless Operator: JOSE L Lordonocytes/100 WBC (Bld)8 %Normal3-12[facility] HospitalComment on above:Performed By: #### BMP, CDP #### [address] [place] [address] Wireless Operator: Willy Sturtz, MDMorphology Ki (Bld) [Interp]NormalNormalSelect Medical [facility], [facility] HospitalComment on above:Performed By: #### BMP, CDP #### [address] [place], [place] [address] Wireless Operator: Willy Henson MDNeutrophil (Seg)36 %Eotsru70-29Yewy[facility] Tiffin HospitalComment on above:Performed By: #### BMP, CDP #### [address] [place], [place] [address] Wireless Operator: Willy Henson MDErythrocyte distribution width (RBC) [Ratio]12.2 % Xaagjc28.8-14.4[facility], [facility] HospitalComment on above:Performed By: #### BMP, CDP #### [address] [place] [address] Wireless Operator: Willy Henson MDHematocrit (Bld) [Volume fraction]30.9 %Low 36.3-47.1MSelect Medical [facility] Rehabilitation Hospital HospitalComment on above:Performed By: #### REINALDO, CDP #### [address] [place], [place] [address] Wireless Operator: Willy Henson MDHemoglobin (Bld) [Mass/Vol]9.9 g/dLLow11.9-15.1 [facility] [place] HospitalComment on above:Performed By: #### REINALDO, CDP #### [address] [place], [place] [address] Wireless Operator: JOSE L LordCH (RBC) [Entitic mass]28.6 guUzdtwq39.2-33.5 [facility] [place] HospitalComment on above:Performed By: #### BMP, CDP #### [address] [place], [place] [address]83 Wireless Operator: JOSE L LordCHC (RBC) [Mass/Vol]32.0 g/hXPinvqa23.4-34.8[facility] Eden HospitalComment on above:Performed By: #### BMP, CDP #### [facility] [address] [place] [address] [place] [address] Wireless Operator: KELI Lord (RBC) [Entitic vol]89.3 vQBgmuhe65.6-102.9 [facility] [place] HospitalComment on above:Performed By: #### BMP, CDP #### [address] [place] [address] Wireless Operator: BOOKER Lord Automated0.0 per 100 WBCNormal0.0[facility] [place] HospitalComment on above:Performed By: #### REINALDO, CDP #### [address] [place] [address] Wireless Operator: Deana Lord mean volume (Bld) [Entitic vol]11.1 fL Normal8.1-13.5[facility] [place] HospitalComment on above:Performed By: #### REINALDO, CDP #### [address] [place] [address] Wireless Operator: Charlene Lord (Bld) [#/Vol]222 10*3/pVAcykty288-134 [facility] [place] HospitalComment on above:Performed By: #### REINALDO, CDP #### [address] [place] [address] Wireless Operator: KAYE Lord (Bld) [#/Vol]3.46 10*6/uLLow3.95-5.11[facility] [place] HospitalComment on above:Performed By: #### REINALDO, CDP #### [address] [place] [address] Wireless Operator: CHRISTOPH Lord (Bld) [#/Vol]10.2 10*3/uLNormal3.5-11.3MSelect [facility] HospitalComment on above:Performed By: #### BMP, CDP #### [address] [place], [place] [address]883 Wireless Operator: PATTIE Lordomp Metabolic Pr/rfx MGon [id number] [Mass/Vol]3.3 g/dLLow3.5-5.2[facility] HospitalComment on above:Performed By: #### BMP, CDP #### [address] [place] [address] Wireless Operator: Willy Henson MDAlbumin/Glob Ratio1.0Yzbkeo0.0-2.5MerSelect Medical [facility] Hospital, [place] HospitalComment on above:Performed By: #### BMP, CDP #### [address] [place] [address] Wireless Operator: Juan Miguel Lordline Grvd330 U/ZFipykx30-676Gkaxw Eden HospitalComment on above:Performed By: #### BMP, CDP #### [address] [place] [address] Wireless Operator: Willy Henson MDALT [Catalytic activity/Vol]10 U/LNormal5-33[facility] HospitalComment on above:Performed By: #### BMP, CDP #### [address] [place] [address] Wireless Operator: Letha Lord gap [Moles/Vol]8 mmol/LLow9-17[facility] HospitalComment on above:Performed By: #### BMP, CDP #### [address] [place], [place] [phone] Wireless Operator: Willy Henson MDAST [Catalytic activity/Vol]11 U/LNormal<32[facility] Eden HospitalComment on above:Performed By: #### BMP, CDP #### [address] [place] [address] Wireless Operator: Willy Henson MDBilirubin [Mass/Vol]0.3 mg/dLNormal0.3-1.2MSelect [facility] HospitalComment on above:Performed By: #### BMP, CDP #### [address] [place] [address] Wireless Operator: Willy Henson MDBUN/CRE Abdtn77Ppei1-89NbdeqCherrington Hospital Comment on above:Performed By: #### BMP, CDP #### [address] [place] [address] Wireless Operator: PATTIE Lordalcium [Mass/Vol]8.8 mg/dLNormal8.6-10.4[facility] [place] HospitalComment on above:Performed By: #### BMP, CDP #### [address] [place] [address] Wireless Operator: PATTIE Lordhloride [Moles/Vol]107 mmol/UMbiapo67-453SdpdvCherrington HospitalComment on above:Performed By: #### BMP, CDP #### [address] [place] [address] Wireless Operator: Willy Henson MDCO2 [Moles/Vol]24 mmol/QMuikvk19-85Ystcd [facility] HospitalComment on above:Performed By: #### BMP, CDP #### [address] [place] [address] Wireless Operator: PATTIE Lordreatinine [Mass/Vol]0.7 mg/dLNormal0.5-0.9[facility] [place] HospitalComment on above:Performed By: #### BMP, CDP #### [address] [place] [address] Wireless Operator: Willy Henson MDGFR/1.73 sq M.predicted among non-blacks MDRD (S/P/Bld) [Vol rate/Area]87 mL/min/{1.73_m2}Normal>60[facility] Comment on above:Result Comment: These results [...] tubular secretion.Performed By: #### BMP, CDP #### [address] [place] [address] Wireless Operator: Willy Henson MDGlucose [Mass/Vol]105 mg/pTWmlr59-92AqbgmSt. Francis HospitalComment on above:Performed By: #### REINALDO, CDP #### [address] [place], [facility]83 Wireless Operator: DESTINEE Lordotassium [Moles/Vol]4.2 mmol/LNormal3.7-5.3Mmercy health allen hospitaly Eden HospitalComment on above:Performed By: #### REINALDO, CDP #### [address] [place], [place] [id number] Wireless Operator: Willy Henson MDProtein [Mass/Vol]5.4 g/dLLow6.4-8.3Mmercy health allen hospitaly Eden HospitalComment on above:Performed By: #### REINALDO, CDP #### [address] [place] [address] Wireless Operator: Willy Henson MDSodium [Moles/Vol]139 mmol/NQjycmj071-135LbpgvCherrington HospitalComment on above:Performed By: #### BMP, CDP #### [address] [place] [address] Wireless Operator: Willy Henson MDUrea nitrogen [Mass/Vol]18 mg/dLNormal8-23[facility] on above:Performed By: #### BMP, CDP #### [facility] [address] [address] Wireless Operator: Willy Henson [facility] – MCALESTERomprehensive Metabolic Panel w/ Reflex to MGon [id number] [Mass/Vol]3.3 g/dLLow3.5 - 5.2 g/dLBON [facility] Albumin/Globulin [Mass ratio]1.6 {ratio}1.0 - 2.5B[facility] MIAMI VALLEY HOSPITALALP [Catalytic activity/Vol]102 U/L35 - 104 U/LBON MIAMI VALLEY HOSPITALALT [Catalytic activity/Vol]10 U/L5 - 33 U/LBON [facility] VALLEY HOSPITALAnion gap [Moles/Vol]8 mmol/LLow9 - 17 mmol/LBON MIAMI VALLEY HOSPITALAST [Catalytic activity/Vol]11 U/LNINF - 32 U/LBON [facility] VALLEY HOSPITALBilirubin [Mass/Vol]0.3 mg/dL0.3 - 1.2 mg/dLBON MIAMI VALLEY HOSPITALCalcium [Mass/Vol]8.8 mg/dL8.6 - 10.4 mg/dLBON MIAMI VALLEY HOSPITALChloride [Moles/Vol]107 mmol/L98 - 107 mmol/L [facility] HOSPITALCO2 [Moles/Vol]24 mmol/L20 - 31 mmol/LBON MIAMI VALLEY HOSPITALCreatinine [Mass/Vol]0.7 mg/dL0.5 - 0.9 mg/dLBON MIAMI VALLEY HOSPITALEst, Glom Filt Rate87- PINFBON MIAMI VALLEY HOSPITALComeaton rapids medical center on above: These results are not intended [...] that affects renal tubular secretion. Glucose [Mass/Vol]105 mg/pLPkju49 - 99 mg/dLB[facility]I VALLEY [facility]OSP[facility] Interpretation and review of laboratory resultsAbnormalSOUTHERN [facility] Potassium [Moles/Vol]4.2 mmol/L3.7 - 5.3 mmol/LBON [facility] HEALTHProtein [Mass/Vol]5.4 g/dLLow6.4 - 8.3 g/dLBON MIAMI VALLEY HOSPITALSodium [Moles/Vol]139 mmol/L135 - 144 mmol/LBON MIAMI VALLEY HOSPITALUrea nitrogen [Mass/Vol]18 mg/dL8 - 23 mg/dLBON MIAMI VALLEY HOSPITALUrea nitrogen/Creatinine [Mass ratio]26 mg/mg High9 - 20B[facility] HEALTHEKG Rhythm Stripon [id number] MEDICAL CENTERCBC auto differentialon [id number] (Bld) [#/Vol][facility] HOSPITALBasophils/100 WBC (Bld)0 %0 - 2 %[facility] Eosinophils (Bld) [#/Vol][facility]ENTEROURS PROTESTANT HOSPITALEosinophils/100 WBC (Bld)0 %Low 1 - 4 %[facility] MEDICAL CENTERErythrocyte distribution width (RBC) [Ratio]11.9 %11.8 - 14.4 %[facility] MEDICAL CENTERHematocrit (Bld) [Volume fraction]35.6 % Low36.3 - 47.1 %[facility] MEDICAL CENTERHemoglobin (Bld) [Mass/Vol]11.5 g/dLLow 11.9 - 15.1 g/dLBON MIAMI VALLEY HOSPITALImmature granulocytes (Bld) [#/Vol]0.04 10*3/uLBON MIAMI VALLEY HOSPITALImmature granulocytes/100 WBC (Bld)0 %0B[facility] VALLEY HOSPITALInterpretation and review of laboratory resultsAbnormalCARILION STONEW[facility] HEALTHLymphocytes/100 WBC (Bld)44 %High24 - 43 %[facility] HEALTHLymphocytes/100 WBC (Bld)5.25 %HighSOUTHERN VIRGINIA REGIONAL MEDICAL CENTERMCH (RBC) [Entitic mass]29.0 pg25.2 - 33.5 pgCENTRA VIRGINIA BAPTIST HOSPITALHC (RBC) [Mass/Vol] 32.3 g/dL28.4 - 34.8 g/dLBON CHILLICOTHE HOSPITALV (RBC) [Entitic vol]89.7 fL 82.6 - 102.9 fLSOUTHERN VIRGINIA REGIONAL MEDICAL CENTERMonocytes/100 WBC (Bld)1 %Low3 - 12 %[facility] MEDICAL CENTERMonocytes/100 WBC (Bld)0.15 %[facility] Neutrophils/100 WBC (Bld)55 %36 - 65 %[facility] MEDICAL CENTERNucleated RBC/100 WBC (Bld) [Ratio]0.0 %0.0 per 100 WBCSOUTHERN VIRGINIA REGIONAL MEDICAL CENTERPlatelet mean volume (Bld) [Entitic vol]11.0 fL8.1 - 13.5 fLSOUTHERN VIRGINIA REGIONAL MEDICAL CENTERPlatelets (Bld) [#/Vol]240 10*3/uLBON MIAMI VALLEY HOSPITALRBC (Bld) [#/Vol]3.97 10*6/uL 3.95 - 5.11 m/uLSOUTHERN VIRGINIA REGIONAL MEDICAL CENTERSegmented neutrophils/100 WBC (Bld)6.38 %[facility] MEDICAL CENTERWBC other (Bld) [#/Vol]11.9HighBON SEC[address]. FRANCIS MEDICAL CENTERCBC with Diffon [id number]. Basophil<0.03Normal 0.00-0.20MerDanbury HospitalComment on above:Performed By: #### DIDI, CMPX #### [address] [place] [address] Wireless Operator: Chapin Lord. Eosinophil<0.22Iupyeg3.00-0.44MerSelect Medical [facility], [place] HospitalComment on above:Performed By: #### DIDI, CMPX #### [address] [place] [address] Wireless Operator: Chapin Lord.Imm.Granulocyte0.04 k/uLNormal0.00-0.30MerDanbury HospitalComment on above:Performed By: #### CDP, CMPX #### [address] [place], [place] 1843983 Wireless Operator: Chapin Lord.Neutrophil (Seg)6.38 k/uLNormal1.50-8.10[facility] [place] HospitalComment on above:Performed By: #### CDP, CMPX #### [address] [place], [facility]83 Wireless Operator: Willy Henson MDBasophils/100 WBC (Bld)0 %Normal0-2MSelect [facility] HospitalComment on above:Performed By: #### CDP, CMPX #### [address] [place], [facility]83 Wireless Operator: Willy Henson MDEosinophils/100 WBC (Bld)0 %Low1-4[facility] [place] HospitalComment on above:Performed By: #### CDP, CMPX #### [address] [place], [facility]83 Wireless Operator: Willy Henson MDErythrocyte distribution width (RBC) [Ratio]11.9 % Nxvikx22.8-14.4[facility] [place] HospitalComment on above:Performed By: #### CDP, CMPX #### [address] [place], [facility]83 Wireless Operator: Willy Henson MDHematocrit (Bld) [Volume fraction]35.6 %Low 36.3-47.1MSelect [facility] HospitalComment on above:Performed By: #### CDP, CMPX #### [address] [place] [address] Wireless Operator: Willy Henson MDHemoglobin (Bld) [Mass/Vol]11.5 g/dLLow11.9-15.1 [facility] [place] HospitalComment on above:Performed By: #### CDP, CMPX #### [address] [place], [place] [id number] Wireless Operator: Faisal Lordture granulocytes/100 WBC (Bld)0 %Ncfcnj2BehqdCherrington HospitalComment on above:Performed By: #### CDP, CMPX #### [address] [place], [place] [phone] Wireless Operator: Erick Lordmphocytes (Bld) [#/Vol]5.25 10*3/uLHigh1.10-3.70 [facility] [place] HospitalComment on above:Performed By: #### CDP, CMPX #### [address] [place], [place] [phone] Wireless Operator: Erick Lordmphocytes/100 WBC (Bld)44 %Hctp85-14Mmbwr [facility]in HospitalComment on above:Performed By: #### CDP, CMPX #### [address] [place], [place] 0377383 Wireless Operator: JOSE L LordCH (RBC) [Entitic mass]29.0 zvIkysic71.2-33.5 [facility] [place] HospitalComment on above:Performed By: #### CDP, CMPX #### [address] [place], [place] 3426883 Wireless Operator: KIRBY LordC (RBC) [Mass/Vol]32.3 g/lSHruggk72.4-34.8C[facility] HospitalComment on above:Performed By: #### CDP, CMPX #### [address] [place] [address] Wireless Operator: JOSE L LordCV (RBC) [Entitic vol]89.7 mOSpfhea78.6-102.9 [facility] [place] HospitalComment on above:Performed By: #### CDP, CMPX #### [address] [place] [address] Wireless Operator: JOSE L Lordonocytes (Bld) [#/Vol]0.15 10*3/uLNormal0.10-1.20 [facility] HospitalComment on above:Performed By: #### CDP, CMPX #### [address] [place] [address] Wireless Operator: JOSE L Lordonocytes/100 WBC (Bld)1 %Low3-12C[facility] HospitalComment on above:Performed By: #### CDP, CMPX #### [address] [place] [address] Wireless Operator: Willy Henson MDNeutrophil (Seg)55 %Nwdyuu85-59Kovwa [facility]iffin HospitalComment on above:Performed By: #### CDP, CMPX #### [address] [place] [address] Wireless Operator: Willy Henson MDNRBC Automated0.0 per 100 WBCNormal0.0[facility] [place] HospitalComment on above:Performed By: #### CDP, CMPX #### [address] [place], [place] 9448183 Wireless Operator: Claudio Lordtegloria mean volume (Bld) [Entitic vol]11.0 fL Normal8.1-13.5C[facility] HospitalComment on above:Performed By: #### CDP, CMPX #### [address] [place], [place] 8[address]83 Wireless Operator: DESTINEE Lordlatelets (Bld) [#/Vol]240 10*3/oDSsdsqn609-770 [facility] [place] HospitalComment on above:Performed By: #### CDP, CMPX #### [address] [place], [place] 5836883 Wireless Operator: MALORIE LordBC ([facility]) [#/Vol]3.97 10*6/uLNormal3.95-5.11[facility] [place] HospitalComment on above:Performed By: #### CDP, CMPX #### [address] [place] [address] Wireless Operator: JOLENE Lord ([facility]) [#/Vol]11.9 10*3/uLHigh3.5-11.3Mmercy health allen hospitaly Eden HospitalComment on above:Performed By: #### CDP, CMPX #### [address] [place], [place] 3329983 Wireless Operator: PATTIE Lordkane county human resource ssd Metabolic Pr/rfx MGon 19-18-3662Ixrhxpp [Mass/Vol]3.5 g/dLNormal3.5-5.2MSelect Medical [facility] Hospital HospitalComment on above:Performed By: #### CDP, CMPX #### [address] [place], [place] 1628083 Wireless Operator: Willy Henson MDAlbumin/Glob Ratio1.3Sehkbp4.0-2.5C[facility] HospitalComment on above:Performed By: #### CDP, CMPX #### [address] [place], [place] 4418383 Wireless Operator: Juan Miguel Lordline Yqla632 U/ADaen49-380HkbamCherrington HospitalComment on above:Performed By: #### CDP, CMPX #### [facility] [address] [place] [address] [address] [place], [place] 7725983 Wireless Operator: Willy Henson MDALT [Catalytic activity/Vol]11 U/LNormal5-33[facility] HospitalComment on above:Performed By: #### CDP, CMPX #### [facility] [address] [place] [address] [place] [place], [place] 4884983 Wireless Operator: Willy Henson MDAnion gap [Moles/Vol]11 mmol/LNormal9-17[facility] HospitalComment on above:Performed By: #### CDP, CMPX #### [address] [place], [place] 7161883 Wireless Operator: Willy Henson MDAST [Catalytic activity/Vol]15 U/LNormal<32MerSelect Medical [facility] Clinic Rehabilitation Hospital, [place] HospitalComment on above:Performed By: #### CDP, CMPX #### [address] [place] [address] Wireless Operator: Willy Henson MDBilirubin [Mass/Vol]0.3 mg/dLNormal0.3-1.2MercMt. Sinai HospitalComment on above:Performed By: #### CDP, CMPX #### [address] [place], [place] 1893783 Wireless Operator: Willy Henson MDBUN/CRE Dyltz32Wcqp6-14ClsvzCherrington Hospital Comment on above:Performed By: #### CDP, CMPX #### [address] [place], [place] 1582283 Wireless Operator: Willy Henson MDCalcium [Mass/Vol]9.2 mg/dLNormal8.6-10.4MerDanbury HospitalComment on above:Performed By: #### CDP, CMPX #### [facility] [address] [place] [address] [place] [address] Wireless Operator: Willy Henson MDChloride [Moles/Vol]104 mmol/ZTwqsln69-979KicuuCherrington HospitalComment on above:Performed By: #### CDP, CMPX #### [address] [place], [place] 6735883 Wireless Operator: Willy Henson MDCO2 [Moles/Vol]23 mmol/YBznjnc42-05Lffzb [facility] HospitalComment on above:Performed By: #### CDP, CMPX #### [address] [place] [address] Wireless Operator: PATTIE Lordreatinine [Mass/Vol]0.6 mg/dLNormal0.5-0.9MerDanbury HospitalComment on above:Performed By: #### CDP, CMPX #### [address] [place] [address] Wireless Operator: Willy Henson MDGFR/1.73 sq M.predicted among non-blacks MDRD (S/P/Bld) [Vol rate/Area]mL/min/{1.73_m2}Normal>60[facility] HospitalComment on above:Result Comment: These results are [...] tubular secretion.Performed By: #### DIDI, CMPX #### [address] [place] [address] Wireless Operator: Willy Henson MDGlucose [Mass/Vol]142 mg/gBJkwk98-84Vtwbx [facility] HospitalComment on above:Performed By: #### DIDI, CMPX #### [address] [place] [address] Wireless Operator: DESTINEE Lordotassium [Moles/Vol]4.6 mmol/LNormal3.7-5.3Mer[facility] Eden HospitalComment on above:Performed By: #### DIDI, CMPX #### [address] [place] [address] Wireless Operator: Willy Henson MDProtein [Mass/Vol]6.2 g/dLLow6.4-8.3Mercy Eden HospitalComment on above:Performed By: #### CDP, CMPX #### [facility] [address] [address] Wireless Operator: FANY Lordodium [Moles/Vol]138 mmol/MQjfedd160-484BncljCherrington HospitalComment on above:Performed By: #### CDP, CMPX #### [facility] [address] [address] Wireless Operator: Willy Henson MDUrea nitrogen [Mass/Vol]18 mg/dLNormal8-23[facility] HospitalComment on above:Performed By: #### DIDI, CMPX #### [facility] [address] [address] Wireless Operator: PATTIE Lordomprehensive Metabolic Panel w/ Reflex to MGon [id number] [Mass/Vol]3.5 g/dL3.5 - 5.2 g/dLB[facility] Albumin/Globulin [Mass ratio]1.3 {ratio}1.0 - 2.5[facility] HEALTHALP [Catalytic activity/Vol]129 U/LHigh35 - 104 U/LBON [facility] HEALTHALT [Catalytic activity/Vol]11 U/L5 - 33 U/LB[facility] HEALTHAnion gap [Moles/Vol]11 mmol/L9 - 17 mmol/LB[facility] HEALTHAST [Catalytic activity/Vol]15 U/LNINF - 32 U/LB[facility] HEALTHBilirubin [Mass/Vol]0.3 mg/dL0.3 - 1.2 mg/dLB[facility] HEALTHCalcium [Mass/Vol]9.2 mg/dL8.6 - 10.4 mg/dLB[facility] HEALTHChloride [Moles/Vol]104 mmol/L98 - 107 mmol/L [facility] HEALTHCO2 [Moles/Vol]23 mmol/L20 - 31 mmol/LBON [facility] HEALTHCreatinine [Mass/Vol]0.6 mg/dL0.5 - 0.9 mg/dLB[facility] MIAMI VALLEY HOSPITALEst, Glom Akilt Rate- PINFBON [facility] on above: These results are not intended [...] that affects renal tubular secretion. Glucose [Mass/Vol]142 mg/tQFpnl81 - 99 mg/dLB[facility] Interpretation and review of laboratory resultsAbnormalSOUTHER[facility] Potassium [Moles/Vol]4.6 mmol/L3.7 - 5.3 mmol/LBON [facility] HEALTHProtein [Mass/Vol]6.2 g/dLLow6.4 - 8.3 g/dLBON MIAMI VALLEY HOSPITALSodium [Moles/Vol]138 mmol/L135 - 144 mmol/LBON MIAMI VALLEY HOSPITALUrea nitrogen [Mass/Vol]18 mg/dL8 - 23 mg/dLBON MIAMI VALLEY HOSPITALUrea nitrogen/Creatinine [Mass ratio]30 mg/mg High9 - 20B[facility] HEALTHEKG Rhythm Stripon [id number] MEDICAL CENTERBasic Metabolic Panelon 80-30-3351Wlhns gap [Moles/Vol]11 mmol/L9 - 17 mmol/LBON [facility] HEALTHCalcium [Mass/Vol]9.6 mg/dL8.6 - 10.4 mg/dLB[facility] HEALTHChloride [Moles/Vol]101 mmol/L98 - 107 mmol/LB[facility] HEALTHCO2 [Moles/Vol]26 mmol/L20 - 31 mmol/LBON MIAMI VALLEY HOSPITALCreatinine [Mass/Vol]0.7 mg/dL0.5 - 0.9 mg/dLBON MIAMI VALLEY HOSPITALEst, Glom Filt Rate87- PINFBON [facility] [...] that affects renal tubular secretion. Glucose [Mass/Vol]102 mg/aAArnn99 - 99 mg/dLB[facility] Interpretation and review of laboratory resultsAbnormalSOUTHER[facility] Potassium [Moles/Vol]4.5 mmol/L3.7 - 5.3 mmol/LBON MIAMI VALLEY HOSPITALSodium [Moles/Vol]138 mmol/L135 - 144 mmol/LBON MIAMI VALLEY HOSPITALUrea nitrogen [Mass/Vol]24 mg/dLHigh8 - 23 mg/dLBON MIAMI VALLEY HOSPITALUrea nitrogen/Creatinine [Mass ratio]34 mg/mgHigh9 - 20[facility]A HEALTHBasic Metabolic Profon 63-39-0017Zdltk gap [Moles/Vol]11 mmol/LNormal9-17[facility] HospitalComment on above:Performed By: #### REINALDO, CDP #### [address] [place] [address] Wireless Operator: Willy Henson MDBUN/CRE Pzwmj61Rcrq9-95IxhwhCherrington Hospital Comment on above:Performed By: #### BMP, CDP #### [facility] [address] [place] [address] [address] [place], [facility]83 Wireless Operator: PATTIE Lordalcium [Mass/Vol]9.6 mg/dLNormal8.6-10.4C[facility] HospitalComment on above:Performed By: #### BMP, CDP #### [address] [place] [address] Wireless Operator: PATTIE Lordhloride [Moles/Vol]101 mmol/PQldbmw78-297QdyckCherrington HospitalComment on above:Performed By: #### BMP, CDP #### [address] [place], [place] 37[address]83 Wireless Operator: PATTIE LordO2 [Moles/Vol]26 mmol/BTvvoox19-36DbppfCherrington HospitalComment on above:Performed By: #### BMP, CDP #### [address] [place] [address] Wireless Operator: PATTIE Lordreatinine [Mass/Vol]0.7 mg/dLNormal0.5-0.9C[facility] HospitalComment on above:Performed By: #### BMP, CDP #### [address] [place] [address] Wireless Operator: Willy Henson MDGFR/1.73 sq M.predicted among non-blacks MDRD (S/P/Bld) [Vol rate/Area]87 mL/min/{1.73_m2}Normal>60[facility] Comment on above:Result Comment: These results [...] tubular secretion.Performed By: #### REINALDO, CDP #### [address] [place] [address] Wireless Operator: Willy Henson MDGlucose [Mass/Vol]102 mg/cZCrby78-80WpshcSt. Francis HospitalComment on above:Performed By: #### BMP, CDP #### [address] [place] [address] Wireless Operator: Willy Henson MDPotassium [Moles/Vol]4.5 mmol/LNormal3.7-5.3Mmercy health allen hospitaly Eden HospitalComment on above:Performed By: #### BMP, CDP #### [facility] [address] [address] Wireless Operator: FANY Lordodium [Moles/Vol]138 mmol/EWnfonv705-218LfdifCherrington HospitalComment on above:Performed By: #### BMP, CDP #### [facility] [address] [address] Wireless Operator: Willy Henson MDUrea nitrogen [Mass/Vol]24 mg/dLHigh8-23C[facility] HospitalComment on above:Performed By: #### BMP, CDP #### [facility] [address] [address] Wireless Operator: Willy Henson MDCBC with Auto Differentialon [id number] (Bld) [#/Vol]0.00 10*3/uLBON PRES[facility] MEDICAL CENTEROURS PROTESTANT HOSPITALBasophils/100 WBC (Bld)0 %0 - 2 %[facility] CENTEREosinophils (Bld) [#/Vol]0.00 10*3/uLBON SECOURS PROTESTANT HOSPITALEosinophils/100 WBC (Bld)0 %Low1 - 4 %[facility]ERY [facility] MEDICAL CENTERErythrocyte distribution width (RBC) [Ratio]12.1 %11.8 - 14.4 %[facility] Hematocrit (Bld) [Volume fraction]36.6 %36.3 - 47.1 %[facility] Hemoglobin (Bld) [Mass/Vol]11.7 g/dLLow11.9 - 15.1 g/dLBON [facility]PAR[facility] Immature granulocytes (Bld) [#/Vol]0.00 10*3/uLBON [facility]ENTERImmature granulocytes/100 WBC (Bld)0 %0[facility] CENTERInterpretation and review of laboratory resultsAbnormalBON SECFA[facility]FA[facility]ITALY [facility] CENTERLymphocytes/100 WBC (Bld)49 %High24 - 43 %[facility] CENTERLymphocytes/100 WBC (Bld)5.48 %HighBON SECPARMA COMMUNITY GENERAL HOSPITALMCH (RBC) [Entitic mass]28.8 pg25.2 - 33.5 pgBON CHILLICOTHE HOSPITALHC (RBC) [Mass/Vol]32.0 g/dL28.4 - 34.8 g/dLBON CHILLICOTHE HOSPITALV (RBC) [Entitic vol]90.1 fL82.6 - 102.9 fLSOUTHERN VIRGINIA [facility] Monocytes/100 WBC (Bld)3 %3 - 12 %[facility]OSPITALMonocytes/100 WBC (Bld)0.34 %[facility] CENTERMorphology Ki (Bld) [Interp]NormalBON MIAMI VALLEY HOSPITALNeutrophils/100 WBC (Bld)48 %36 - 65 %[facility] HOSPITALNucleated RBC/100 WBC (Bld) [Ratio]0.0 %0.0 per 100 WBCBON MIAMI VALLEY HOSPITALPlatelet mean volume (Bld) [Entitic vol]11.0 fL8.1 - 13.5 fLBON MIAMI VALLEY HOSPITALPlatelets (Bld) [#/Vol]249 10*3/uLBON MI[facility]I VALLEY HOSPITALRBC (Bld) [#/Vol]4.06 10*6/uL3.95 - 5.11 m/uLSOUTHERN VIRGINIA REGIONAL MEDICAL CENTERSegmented neutrophils/100 WBC (Bld)5.38 %[facility] CENTERWBC other (Bld) [#/Vol] 11.2[facility]ALTHCBC with Diffon 07-31-2023 Abs. Basophil0.00 k/uLNormal0.0-0.2[facility]amford HospitalComment on above: Performed By: #### BMP, CDP #### [facility] [address] [place] [address] [place] [address] Wireless Operator: Chapin Lord.Imm.Granulocyte0.00 k/uLNormal0.00-0.30MerDanbury HospitalComment on above:Performed By: #### BMP, CDP #### [facility] [address] [address] Wireless Operator: Chapin Lord.Neutrophil (Seg)5.38 k/uLNormal1.50-8.10[facility] HospitalComment on above:Performed By: #### BMP, CDP #### [address] [place] [address] Wireless Operator: Willy Henson MDBasophils/100 WBC (Bld)0 %Normal0-2MercCleveland Clinic Euclid Hospital HospitalComment on above:Performed By: #### BMP, CDP #### [address] [place] [id number] Wireless Operator: Willy Henson MDEosinophils (Bld) [#/Vol]0.00 10*3/uLNormal 0.00-0.44[facility] HospitalComment on above:Performed By: #### BMP, CDP #### [address] [place], [place] [address] Wireless Operator: Willy Henson MDEosinophils/100 WBC (Bld)0 %Low1-4[facility] HospitalComment on above:Performed By: #### BMP, CDP #### [address] [place] [address] Wireless Operator: Willy Henson MDImmature granulocytes/100 WBC (Bld)0 %Zxwnrh0Xzwpg [facility]iffin HospitalComment on above:Performed By: #### BMP, CDP #### [address] [place] [address] Wireless Operator: Erick Lordmphocytes (Bld) [#/Vol]5.48 10*3/uLHigh1.10-3.70 [facility] HospitalComeaton rapids medical center on above:Performed By: #### BMP, CDP #### [address] [place], [place] [phone] Wireless Operator: Willy Sturtz, MDLymphocytes/100 WBC (Bld)49 %Kqwu72-29Ldhec [facility]in HospitalComment on above:Performed By: #### BMP, CDP #### [address] [place] [address] Wireless Operator: JOSE L Lordonocytes (Bld) [#/Vol]0.34 10*3/uLNormal0.10-1.20 [facility] HospitalComment on above:Performed By: #### BMP, CDP #### [address] [place] [address] Wireless Operator: JOSE L Lordonocytes/100 WBC (Bld)3 %Normal3-12[facility] HospitalComment on above:Performed By: #### BMP, CDP #### [address] [place], [facility]83 Wireless Operator: JOSE L Lordorphology Ki (Bld) [Interp]NormalNormalSelect Medical [facility], [facility] HospitalComment on above:Performed By: #### BMP, CDP #### [address] [place], [place] [address] Wireless Operator: Willy Henson MDNeutrophil (Seg)48 %Ircyvd01-45Vmghn [facility] HospitalComment on above:Performed By: #### BMP, CDP #### [address] [place], [facility]83 Wireless Operator: Willy Henson MDErythrocyte distribution width (RBC) [Ratio]12.1 % Akbbxi19.8-14.4[facility] HospitalComment on above:Performed By: #### BMP, CDP #### [address] [place], [place] [phone] Wireless Operator: Willy Henson MDHematocrit (Bld) [Volume fraction]36.6 %Normal 36.3-47.1[facility] Eden HospitalComment on above:Performed By: #### BMP, CDP #### [address] [place], [place] 3104483 Wireless Operator: Willy Henson MDHemoglobin (Bld) [Mass/Vol]11.7 g/dLLow11.9-15.1 [facility] HospitalComment on above:Performed By: #### BMP, CDP #### [address] [place], [place] 1921483 Wireless Operator: JOSE L LordCH (RBC) [Entitic mass]28.8 cgCsvuwn36.2-33.5 [facility] HospitalComment on above:Performed By: #### BMP, CDP #### [address] [place], [place] [address] Wireless Operator: KIRBY LordC (RBC) [Mass/Vol]32.0 g/vFZrwlgd78.4-34.8C[facility]rington HospitalComment on above:Performed By: #### BMP, CDP #### [address] [place], [place] [phone] Wireless Operator: JOSE L LordCV (RBC) [Entitic vol]90.1 nXHkcpeh52.6-102.9 [facility] HospitalComment on above:Performed By: #### BMP, CDP #### [address] [place], [facility]83 Wireless Operator: Willy Henson MDNRBC Automated0.0 per 100 WBCNormal0.0[facility] HospitalComment on above:Performed By: #### BMP, CDP #### [address] [place] [address] Wireless Operator: DESTINEE Lordlatelet mean volume (Bld) [Entitic vol]11.0 fL Normal8.1-13.5[facility] HospitalComment on above:Performed By: #### BMP, CDP #### [address] [place], [place] 9196983 Wireless Operator: Charlene Lord ([facility]) [#/Vol]249 10*3/pADpipsf119-538 [facility] HospitalComment on above:Performed By: #### BMP, CDP #### [address] [place], [place] [phone] Wireless Operator: KAYE Lord (d) [#/Vol]4.06 10*6/uLNormal3.95-5.11[facility] HospitalComment on above:Performed By: #### REINALDO, CDP #### [address] [place], [place] 6503083 Wireless Operator: CHRISTOPH Lord ([facility]) [#/Vol]11.2 10*3/uLNormal3.5-11.3MSelect Medical [facility] HospitalComment on above:Performed By: #### REINALDO, CDP #### [address] [place], [place] [phone] Wireless Operator: MARIE Lord ABDOMEN PELVIS W IV CONTRASTon [id number] ABDOMEN PELVIS W IV CONTRASTEXAMINATION: CT OF [...] Signed by: Chato Bell MD 07/31/23 Final resultNormalMerMiddlesex Hospital Abdomen and Pelvis W contrast David [...] 4.0 cm with surrounding soft tissue swelling. [facility] Chato Stanton MD - 07/31/2023 EXAMINATION: [...] body wall edema. 4. Left-sided colonic diverticulosis. [facility] CENTERRadiology Study observation (narrative)[facility] CENTERCT Abdomen and Pelvis W contrast IVOrdered By: Chato Bell on [id number] [facility] Work Phone: cbc with Auto Differentialon [id number] (Bld) [#/Vol][facility] CENTERBasophils/100 WBC (Bld)0 %0 - 2 %[facility] CENTEREosinophils (Bld) [#/Vol]0.06 10*3/uLSOUTHERN VIRGINIA REGIONAL MEDICAL [facility]ENTER Eosinophils/100 WBC (Bld)1 %1 - 4 %[facility] CENTERErythrocyte distribution width (RBC) [Ratio]12.5 %11.8 - 14.4 %[facility] Hematocrit (Bld) [Volume fraction]33.5 %Low36.3 - 47.1 %[facility] Hemoglobin (Bld) [Mass/Vol]10.7 g/dLLow11.9 - 15.1 g/dLBON [facility] Immature granulocytes (Bld) [#/Vol]0.04 10*3/uLBON [facility]I VALLEY HOSPITALImmature granulocytes/100 WBC (Bld)0 %0[facility] CENTERInterpretation and review of laboratory resultsAbnormalSOUTHERN VIRGINIA REG[facility] MEDICAL CENTERLymphocytes/100 WBC (Bld)40 %24 - 43 %[facility] CENTERLymphocytes/100 WBC (Bld)4.64 %HighCENTRA VIRGINIA BAPTIST HOSPITALH (RBC) [Entitic mass]28.8 pg25.2 - 33.5 pgCENTRA VIRGINIA BAPTIST HOSPITALHC (RBC) [Mass/Vol]31.9 g/dL28.4 - 34.8 g/dLBON CHILLICOTHE HOSPITALV (RBC) [Entitic vol]90.3 fL82.6 - 102.9 fLSOUTHERN VIRGINIA [facility]ENTER Monocytes/100 WBC (Bld)8 %3 - 12 %[facility] CENTERMonocytes/100 WBC (Bld)0.88 %[facility] CENTERNeutrophils/100 WBC (Bld)52 %36 - 65 %[facility] CENTERNucleated RBC/100 WBC (Bld) [Ratio]0.0 %0.0 per 100 WBCSOUTHERN VIRGINIA REGIONAL MEDICAL CENTERPlatelet, Cdlygdjrhtmg984FnrDWBSOUTHERN [facility]IRGINIA REG[facility]ENTER Platelets (Bld) [#/Vol]See Reflexed IPF ResultSOUTHERN VIRGINIA REGIONAL MEDICAL CENTERPlatelets reticulated/100 platelets Auto (Bld)4.3 %1.1 - 10.3 %[facility] CENTERRBC (Bld) [#/Vol]3.71 10*6/uLLow3.95 - 5.11 m/uLSOUTHERN VIRGINIA REGIONAL MEDICAL CENTERSegmented neutrophils/100 WBC (Bld)5.99 %[facility] CENTERWBC other (Bld) [#/Vol] 11.6HighSENTARA MARTHA JEFFERSON HOSPITALCBC with Diffon [id number], Fluoresc.137 k/tQHnl457-895Lqolb Eden HospitalComment on above:Performed By: #### ABEL, CDP #### [facility] [address] [place] [address] [place] [address] Wireless Operator: NAILA Lord, Immature Fract.4.3 %Normal1.1-10.3Mer[facility] Stamford HospitalComment on above:Performed By: #### ABEL, CDP #### [address] [place], [place] [address] Wireless Operator: Chapin Lord. Basophil<0.44Vlegvv5.00-0.20MerSelect Medical [facility] Clinic Rehabilitation Hospital, [place] HospitalComment on above:Performed By: #### CP, CDP #### [address] [place], [place] [address] Wireless Operator: MDAbs. PopImm.Granulocyte0.04 k/uLNormal0.00-0.30MerSelect Medical [facility] Hospital, [facility] HospitalComment on above:Performed By: #### CP, CDP #### [address] [place] [address] Wireless Operator: Chapin Lord.Neutrophil (Seg)5.99 k/uLNormal1.50-8.10MerSelect Medical [facility], [facility] HospitalComment on above:Performed By: #### CP, CDP #### [address] [place], [place] [address] Wireless Operator: Willy Henson MDBasophils/100 WBC (Bld)0 %Normal0-2[facility] Eden HospitalComment on above:Performed By: #### ABEL, CDP #### [address] [place] [address] Wireless Operator: Willy Henson MDEosinophils (Bld) [#/Vol]0.06 10*3/uLNormal 0.00-0.44MerSelect Medical [facility] Clinic Rehabilitation Hospital, [facility] HospitalComment on above:Performed By: #### CP, CDP #### [address] [place], [place] [address] Wireless Operator: Willy Henson MDEosinophils/100 WBC (Bld)1 %Normal1-4MerSelect Medical [facility] Clinic Rehabilitation Hospital, [facility] HospitalComment on above:Performed By: #### CP, CDP #### [address] [place], [facility]83 Wireless Operator: Willy Henson MDErythrocyte distribution width (RBC) [Ratio]12.5 % Jhedmc68.8-14.4[facility] HospitalComment on above:Performed By: #### CP, CDP #### [address] [place], [place] [address] Wireless Operator: Willy Henson MDHematocrit (Bld) [Volume fraction]33.5 %Low 36.3-47.1MSt. Francis HospitalComment on above:Performed By: #### CP, CDP #### [address] [place], [place] [address] Wireless Operator: Willy Henson MDHemoglobin (Bld) [Mass/Vol]10.7 g/dLLow11.9-15.1 [facility] HospitalComment on above:Performed By: #### CP, CDP #### [address] [place], [place] [address] Wireless Operator: Manisha Lordmature granulocytes/100 WBC (Bld)0 %Cvbveb3KxuaiCherrington HospitalComment on above:Performed By: #### CP, CDP #### [address] [place], [facility]83 Wireless Operator: Willy Henson MDLymphocytes (Bld) [#/Vol]4.64 10*3/uLHigh1.10-3.70 [facility] HospitalComeaton rapids medical center on above:Performed By: #### CP, CDP #### [address] [place], [facility]83 Wireless Operator: Willy Henson MDLymphocytes/100 WBC (Bld)40 %Oaotud00-51EurgaCherrington HospitalComment on above:Performed By: #### CP, CDP #### [address] [place] [address] Wireless Operator: JOSE L LordCH (RBC) [Entitic mass]28.8 akWjuuij98.2-33.5 [facility] HospitalComment on above:Performed By: #### CP, CDP #### [address] [place] [address] Wireless Operator: JOSE L LordCHC (RBC) [Mass/Vol]31.9 g/sZYpxwde10.4-34.8[facility] HospitalComment on above:Performed By: #### CP, CDP #### [address] [place] [address] Wireless Operator: JOSE L LordCV (RBC) [Entitic vol]90.3 aBPguwnq49.6-102.9 [facility] HospitalComment on above:Performed By: #### CP, CDP #### [address] [place], [place] [phone] Wireless Operator: JOSE L Lrodonocytes (Bld) [#/Vol]0.88 10*3/uLNormal0.10-1.20 [facility] HospitalComment on above:Performed By: #### CP, CDP #### [address] [place] [address] Wireless Operator: JOSE L Lordonocytes/100 WBC (Bld)8 %Normal3-12C[facility] HospitalComment on above:Performed By: #### CP, CDP #### [address] [place] [address] Wireless Operator: Willy Henson MDNeutrophil (Seg)52 %Uqlyza82-52Gviva Tiffin HospitalComment on above:Performed By: #### CP, CDP #### [address] [place], [place] 3322283 Wireless Operator: Willy Henson MDNRBC Automated0.0 per 100 WBCNormal0.0[facility] HospitalComment on above:Performed By: #### CP, CDP #### [facility] [address] [place] [address] [place] [address] Wireless Operator: Deana Lord CountSee Reflexed IPF EboohcMxoznu719-009 [facility] HospitalComment on above:Performed By: #### CP, CDP #### [address] [place], [place] 0373183 Wireless Operator: KAYE Lord ([facility]) [#/Vol]3.71 10*6/uLLow3.95-5.11[facility] HospitalComment on above:Performed By: #### CP, CDP #### [address] [place] [address] Wireless Operator: CHRISTOPH Lord ([facility]) [#/Vol]11.6 10*3/uLHigh3.5-11.3Mer[facility] HospitalComment on above:Performed By: #### CP, CDP #### [address] [place] [address] Wireless Operator: PATTIE Lordomp Metabolic Profon [id number] [Mass/Vol] 3.5 g/dLNormal3.5-5.2Mer[facility] Eden HospitalComment on above:Performed By: #### CP, CDP #### [address] [place] [address] Wireless Operator: Willy Henson MDAlbumin/Glob Ratio1.7Njkakp3.0-2.5[facility] HospitalComment on above:Performed By: #### CP, CDP #### [address] [place], [place] [address]75183 Wireless Operator: Shelli Lordkaline Phos85 U/XRzzltd12-049IrpduCherrington HospitalComment on above:Performed By: #### CP, CDP #### [address] [place] [address] Wireless Operator: Willy Henson MDALT [Catalytic activity/Vol]17 U/LNormal5-33C[facility] HospitalComment on above:Performed By: #### CP, CDP #### [address] [place] [address] Wireless Operator: Willy Henson MDAnion gap [Moles/Vol]6 mmol/LLow9-17MerSelect Medical [facility] Clinic [facility] Hospital, [facility] HospitalComment on above:Performed By: #### CP, CDP #### [address] [place] [address] Wireless Operator: Willy Henson MDAST [Catalytic activity/Vol]16 U/LNormal<32MerSelect Medical [facility] Rehabilitation [facility], [facility] HospitalComment on above:Performed By: #### CP, CDP #### [address] [place] [address] Wireless Operator: Willy Henson MDBilirubin [Mass/Vol]0.5 mg/dLNormal0.3-1.2[facility]ford HospitalComment on above:Performed By: #### CP, CDP #### [address] [place] [address] Wireless Operator: Willy Henson MDBUN/CRE Qmpgy40Quaizz4-92Qfwfe [facility] Comment on above:Performed By: #### CP, CDP #### [address] [place] [address] Wireless Operator: PATTIE Lordalcium [Mass/Vol]8.6 mg/dLNormal8.6-10.4[facility] HospitalComment on above:Performed By: #### CP, CDP #### [address] [place] [address] Wireless Operator: PATTIE Lordhloride [Moles/Vol]108 mmol/SGtdx19-189TyoqxCherrington HospitalComment on above:Performed By: #### CP, CDP #### [address] [place], [place] [phone] Wireless Operator: PATTIE LordO2 [Moles/Vol]24 mmol/ESucbvz98-99KdwynCherrington HospitalComment on above:Performed By: #### CP, CDP #### [address] [place], [place] [phone] Wireless Operator: PATTIE Lordreatinine [Mass/Vol]0.6 mg/dLNormal0.5-0.9C[facility] HospitalComment on above:Performed By: #### CP, CDP #### [address] [place] [address] Wireless Operator: Willy Henson MDGFR/1.73 sq M.predicted among non-blacks MDRD (S/P/Bld) [Vol rate/Area]mL/min/{1.73_m2}Normal>60C[facility] HospitalComment on above:Result Comment: These results are [...] tubular secretion.Performed By: #### ABEL, CDP #### [address] [place] [address] Wireless Operator: Willy Henson MDGlucose [Mass/Vol]135 mg/aRWtba16-47EckklSt. Francis HospitalComment on above:Performed By: #### ABEL, CDP #### [address] [place], [place] 2296183 Wireless Operator: DESTINEE Lordotassium [Moles/Vol]4.4 mmol/LNormal3.7-5.3Mer[facility] Eden HospitalComment on above:Performed By: #### CP, CDP #### [facility] [address] [address] Wireless Operator: Willy Henson MDProtein [Mass/Vol]5.4 g/dLLow6.4-8.3MSelect Medical [facility] Rehabilitation Hospital HospitalComment on above:Performed By: #### CP, CDP #### [facility] [address] [place], [place] [phone] Wireless Operator: FANY Lordodium [Moles/Vol]138 mmol/IPryoae016-255JwbdxCherrington HospitalComment on above:Performed By: #### CP, CDP #### [address] [place], [place] 5637583 Wireless Operator: Willy Henson MDUrea nitrogen [Mass/Vol]11 mg/dLNormal8-23C[facility]rington HospitalComment on above:Performed By: #### CP, CDP #### [address] [place] [address] Wireless Operator: PATTIE Lordomprehensive Metabolic Panelon [id number] [Mass/Vol]3.5 g/dL3.5 - 5.2 g/dLBON MIAMI VALLEY HOSPITALAlbumin/Globulin [Mass ratio]1.8 {ratio}1.0 - 2.5BON [facility] VALLEY HOSPITALALP [Catalytic activity/Vol]85 U/L35 - 104 U/LBON MIAMI VALLEY HOSPITALALT [Catalytic activity/Vol]17 U/L5 - 33 U/LBON [facility] VALLEY HOSPITALAnion gap [Moles/Vol]6 mmol/LLow9 - 17 mmol/LBON MIAMI VALLEY HOSPITALAST [Catalytic activity/Vol]16 U/LNINF - 32 U/LBON [facility] VALLEY HOSPITALBilirubin [Mass/Vol]0.5 mg/dL0.3 - 1.2 mg/dLBON [facility] Calcium [Mass/Vol]8.6 mg/dL8.6 - 10.4 mg/dLBON MIAMI VALLEY HOSPITALChloride [Moles/Vol]108 mmol/LHigh98 - 107 mmol/LBON MIAMI VALLEY HOSPITALCO2 [Moles/Vol] 24 mmol/L20 - 31 mmol/LBON [facility]I VALLEY HOSPITALCreatinine [Mass/Vol]0.6 mg/dL0.5 - 0.9 mg/dLBON MIAMI VALLEY HOSPITALEst, Glom Filt Rate- PINFBON MIAMI VALLEY HOSPITALComment on above: These results are not [...] that affects renal tubular secretion. Glucose [Mass/Vol]135 mg/qFVjma54 - 99 mg/dLBON [facility] Interpretation and review of laboratory resultsAbnormalSOU[facility] Potassium [Moles/Vol]4.4 mmol/L3.7 - 5.3 mmol/LBON MIAMI VALLEY HOSPITALProtein [Mass/Vol]5.4 g/dLLow6.4 - 8.3 g/dLBON MIAMI VALLEY HOSPITALSodium [Moles/Vol]138 mmol/L135 - 144 mmol/LBON MIAMI VALLEY HOSPITALUrea nitrogen [Mass/Vol]11 mg/dL8 - 23 mg/dLBON MIAMI VALLEY HOSPITALUrea nitrogen/Creatinine [Mass ratio]18 mg/mg 9 - 20[facility] HEALTHSurgical Pathology Report on [id number] Pathology Report(NOTE) Path Number: [id number] -- Diagnosis -- UMBILICAL TISSUE/HERNIA, REPAIR:-FIBROMEMBRANEOUS AND [...] x 2.5 cm. No lesions are identified. Luster Repairer sections 1c. tm Nimco Villalobos/mj:07/18/2023 Microscopic Description Microscopic examination performed. Processing Lab: [address] [id number] Interpretation Performed at [address] [id number] SURGICAL PATHOLOGY CONSULTATION Patient Name: MICHEAL BRICE [facility] Rec: [id number] [facility] [employer] ANATOMIC PATHOLOGY [address] [facility]. [place], [place] [address] NoMemorial Health System Selby General HospitalBasi Metabolic Profon 06-22-2023 Anion gap [Moles/Vol]8 mmol/LLow9-17Reg[facility] Medical CenterComment on above: Performed By: #### CDP, BMP ####[facility] [address] [place] [address] Lab Director: Willy Henson MDBUN/CRE Ratio27 High9-20Reg[facility] Medical CenterComment on above:Performed By: #### DIDI, BMP ####[facility] [address] [place] [phone] Director: PATTIE Lordalcium [Mass/Vol]9.0 mg/dLNormal8.6-10.4Reg[facility] Medical CenterComment on above:Performed By: #### CDP, BMP ####[facility] [address] [place] [address] Lab Director: PATTIE Lordhloride [Moles/Vol]108 mmol/WHvoj68-258DbqlcRegional Medical Center Comment on above:Performed By: #### DIDI, BMP ####[facility] Qjb[address] [place] [address] Lab Director: Willy Henson MD CO2 [Moles/Vol]26 mmol/UWqhxvv76-42SuexzRegional Medical CenterComment on above: Performed By: #### DIDI, BMP ####[facility] [address] [place] [address] Lab Director: PATTIE Lordreatinine [Mass/Vol]0.7 mg/dLNormal0.5-0.9Reg[facility] Medical CenterComment on above:Performed By: #### DIDI, BMP ####[facility] [address] [place] [address] Lab Director: Willy Henson MDGFR/1.73 sq M.predicted among non-blacks MDRD (S/P/Bld) [Vol rate/Area]87 mL/min/{1.73_m2} Normal>60Reg[facility] Medical CenterComment on above:Result Comment: These results [...] renal tubular secretion.Performed By: #### DIDI, BMP ####[facility] [address] [place] [phone] Director: Willy Henson MDGlucose [Mass/Vol]101 mg/dLTwyx30-59Qylkf [facility] Surgical HospitalComment on above:Performed By: #### DIDI, BMP ####[facility] [address] [place] [address] Lab Director: DESTINEE Lordotassium [Moles/Vol]4.1 mmol/LNormal3.7-5.3MSt. Elizabeth HospitalComment on above:Performed By: #### DIDI, BMP ####[facility] Qmt[address] [place] [address] Lab Director: FANY Lordodium [Moles/Vol]142 mmol/RMxyftl974-689OcgolRegional Medical CenterComment on above:Performed By: #### CDP, BMP ####[facility] [address] [place], [place] [phone] Director: Willy Henson MDUrea nitrogen [Mass/Vol]19 mg/dLNormal8-23Regional Medical CenterComment on above: Performed By: #### CDP, BMP ####[facility] [address] [place] [address] Lab Director: PATTIE Lord with Diffon [id number]. Basophil0.00 k/uLNormal0.00-0.20MerMount Vernon HospitalComment on above:Performed By: #### DIDI, BMP ####[facility] [address] [place] [address] Lab Director: Willy Henson MD Abs.Imm.Granulocyte0.00 k/uLNormal0.00-0.30Reg[facility] Medical CenterComment on above:Performed By: #### CDP, BMP ####[facility] [address] [facility] [place] [address] Lab Director: Willy Henson MD Abs.Neutrophil (Seg)6.72 k/uLNormal2.5-7.0Reg[facility] Medical CenterComment on above:Performed By: #### CDP, BMP ####[facility] [address] [place] [address] Lab Director: Willy eHnson MD Basophils/100 WBC (Bld)0 %Normal0-2MSt. Elizabeth HospitalComment on above: Performed By: #### CDP, BMP ####[facility] Vao0594 [place] [address] Lab Director: Willy Henson MDEosinophils (Bld) [#/Vol]0.14 10*3/uLNormal0.00-0.40[facility] HospitalComment on above: Performed By: #### CDP, BMP ####[facility] L[address] [place] [address] Lab Director: Willy Henson MDEosinophils/100 WBC (Bld)1 %Normal0-5[facility] HospitalComment on above:Performed By: #### CDP, BMP ####[facility] Sop4[address] [facility] [place]leen [place] [address] Lab Director: Willy Henson MDImmature granulocytes/100 WBC (Bld)0 %Normal0-5[facility] HospitalComment on above:Performed By: #### CDP, BMP ####[facility] Jwn3004 [place] [phone] Director: Erick Lordmphocytes (Bld) [#/Vol]6.16 10*3/uL High1.00-4.80MerGreen Cross Hospital HospitalComment on above:Performed By: #### CDP, BMP ####[facility] Uph0868 [place] [phone] Director: Erick Lordmphocytes/100 WBC (Bld)44 %Myhm65-18UtuthRegional Medical CenterComment on above:Performed By: #### CDP, BMP ####[facility] Coc[address] [place] [address] Lab Director: JOSE L Lordonocytes (Bld) [#/Vol]0.98 10*3/uLNormal0.00-1.00[facility] HospitalComment on above:Performed By: #### CDP, BMP ####[facility] Vzl9964 [place] [address] Lab Director: JOSE L Lordonocytes/100 WBC (Bld)7 %Normal4-8Regional Medical CenterComment on above:Performed By: #### CDP, BMP ####[facility] Nep3912 [place] [address] Lab Director: JOSE L Lordorphology Ki (Bld) [Interp]Scanned to verify automated differential.NormalRegional Medical CenterComment on above:Performed By: #### CDP, BMP ####[facility] Avl0779 [facility], [place] [phone] Director: Willy Henson MDNeutrophil (Seg)48 %Lqiwwo04-52ArqfkRegional Medical CenterComment on above: Performed By: #### CDP, BMP ####[facility] Tfx9584 [place] [address] Lab Director: Willy Henson MDErythrocyte distribution width (RBC) [Ratio]13.0 %Veaqmc70.1-15.2MSt. [facility] Hospital Comment on above:Performed By: #### DIDI, BMP ####[facility] Lfh6461 [place] [address] Lab Director: Willy Henson MD Hematocrit (Bld) [Volume fraction]31.3 %Low36.0-46.0[facility] Comment on above:Performed By: #### CDP, BMP ####[facility] Nyd2119 [place], [place] [phone] Director: Willy Henson MD Hemoglobin (Bld) [Mass/Vol]10.2 g/dLLow12.0-16.0Regional Medical CenterComment on above:Performed By: #### CDP, BMP ####[facility] Wax9140 [place] [address] Lab Director: JOSE L LordCH (RBC) [Entitic mass]29.5 llQtdiio74.0-34.0[facility] HospitalComment on above:Performed By: #### CDP, BMP ####[facility] Bxl[address] [place] [address] Lab Director: JOSE L LordCHC (RBC) [Mass/Vol]32.6 g/vJZmlhjq67.0-37.0[facility] HospitalComment on above: Performed By: #### CDP, BMP ####[facility] Qzo[address] [place], [place] [phone] Director: JOSE L LordCV (RBC) [Entitic vol]90.5 mRZrnlek79.0-100.0[facility] HospitalComment on above:Performed By: #### CDP, BMP ####[facility] Pvr[address] [facility] [place] [address] Lab Director: Deana Lord mean volume (Bld) [Entitic vol]11.1 fLNormal6.0-12.0[facility] HospitalComment on above: Performed By: #### CDP, BMP ####[facility] Pid[address] [place], [place] [phone] Director: Claudio Lordtedaniela (Bld) [#/Vol]139 10*3/rZLqw000-538Rpxed [facility]ard HospitalComment on above:Performed By: #### CDP, BMP ####[facility] Prq[address] [place], [place] [phone] Director: MALORIE LordBC (Bld) [#/Vol]3.46 10*6/uL Low4.00-5.20[facility] HospitalComment on above:Performed By: #### CDP, BMP ####[facility] Nss[address] [place] [phone] Director: CHRISTOPH Lord (Bld) [#/Vol]14.0 10*3/uLHigh3.5-11.0Regional Medical CenterComment on above:Performed By: #### CDP, BMP ####[facility] Vou[address] [place] [address] Lab Director: Dharmesh Lord Metab w/rfx MGon 80-64-7297Fnhxw gap [Moles/Vol]8 mmol/L Low9-17Regional Medical CenterComment on above:Performed By: #### LIVP, BMPX, CDP #### [facility] Lab [address] [place] [address] Wireless Operator: GAY Lord/CRE Grddm13Utiy3-26IozumRegional Medical Center Comment on above:Performed By: #### LIVP, BMPX, CDP #### [facility] Lab [address] [place] [address] Wireless Operator: PATTIE Lordalcium [Mass/Vol]9.0 mg/dLNormal8.6-10.4Regional Medical CenterComment on above:Performed By: #### LIVP, BMPX, CDP #### [facility] Lab [address] [place] [address] Wireless Operator: PATTIE Lordhloride [Moles/Vol]105 mmol/THdgvpw87-329CieccRegional Medical CenterComment on above:Performed By: #### LIVP, BMPX, CDP #### [facility] Lab [address] [place] [address] Wireless Operator: PATTIE LordO2 [Moles/Vol]24 mmol/KEphxai35-56IghwsRegional Medical CenterComment on above:Performed By: #### LIVP, BMPX, CDP #### [facility] Lab [address] [place] [address] Wireless Operator: Willy Sturtz, MDCreatinine [Mass/Vol]0.6 mg/dLNormal0.5-0.9Regional Medical CenterComment on above:Performed By: #### LIVJacqueline BMPX, CDP #### [facility] Lab [address] [place] [address] Wireless Operator: Willy Henson MDGFR/1.73 sq M.predicted among non-blacks MDRD (S/P/Bld) [Vol rate/Area]mL/min/{1.73_m2}Normal>60Regional Medical CenterComment on above:Result Comment: These results [...] secretion.Performed By: #### LIVJacqueline BMPX, CDP #### [facility] Lab [address] [place] [address] Wireless Operator: Willy Henson MDGlucose [Mass/Vol]152 mg/sFEnyj37-54DeapnSt. Elizabeth HospitalComment on above:Performed By: #### LIVJacqueline BMPX, CDP #### [facility] Lab [address] [place] [address] Wireless Operator: DESTINEE Lordotassium [Moles/Vol]4.2 mmol/LNormal3.7-5.3MSt. Elizabeth HospitalComment on above:Performed By: #### LIVP, BMPX, CDP #### [facility] Lab [address] [place] [id number] Wireless Operator: FANY Lordodium [Moles/Vol]137 mmol/WPrxygi292-450MnqjfRegional Medical CenterComment on above:Performed By: #### LIVP, BMPX, CDP #### [facility] Lab [address] [place] [phone] Wireless Operator: Willy Henson MDUrea nitrogen [Mass/Vol]16 mg/dLNormal8-23Regional Medical CenterComment on above:Performed By: #### LIVP, BMPX, CDP #### [facility] Lab [address] [place] [address] Wireless Operator: PATTIE Lord with Diffon [id number]. BasophilNormal 0.0-0.2MSt. Elizabeth HospitalComment on above:Performed By: #### LIVP, BMPX, CDP #### [facility] Lab [address] [place] [address] Wireless Operator: Chapin Lord. EosinophilNormal0.0-0.4[facility] Comment on above:Performed By: #### LIVP, BMPX, CDP #### [facility] Lab [address] [place] [address] Wireless Operator: Chapin Lord.Imm.GranulocyteNormal0.00-0.30Regional Medical CenterComment on above:Performed By: #### LIVP, BMPX, CDP #### [facility] Lab [address] [place] [address] Wireless Operator: Chapin Lord.Neutrophil (Seg)14.01 k/uLHigh2.5-7.0Regional Medical CenterComment on above:Performed By: #### LIVP, BMPX, CDP #### [facility] Lab [address] [place] [id number] Wireless Operator: Willy Henson MDBasophilNormal0-2MSt. Elizabeth HospitalComment on above:Performed By: #### LIVP, BMPX, CDP #### [facility] Lab [address] [place] [address] Wireless Operator: ADOLFO LordosinophilNormal0-5Regional Medical CenterComment on above:Performed By: #### LIVP, BMPX, CDP #### [facility] Lab [address] [place] [address] Wireless Operator: Janny Lord OwjbyoyeiwmVxynpq9Pxlec[address] Comment on above:Performed By: #### LIVP, BMPX, CDP #### [facility] Lab [address] [place] [id number] Wireless Operator: Willy Henson MDLymphocytes (Bld) [#/Vol]5.48 10*3/uLHigh1.0-4.8 [facility] Ohioment on above:Performed By: #### LIVP, BMPX, CDP #### [facility] Lab [address] [place] [address] Wireless Operator: Erick Lordmphocytes/100 WBC (Bld)27 %Djoqhi82-91TrnytRegional Medical CenterComment on above:Performed By: #### LIVP, BMPX, CDP #### [facility] Lab [address] [place] [address] Wireless Operator: JOSE L Lordonocytes (Bld) [#/Vol]0.81 10*3/uLNormal0.0-1.0 [facility] on above:Performed By: #### LIVP, BMPX, CDP #### [facility] Lab [address] [place], [place] [id number] Wireless Operator: JOSE L Lordonocytes/100 WBC (Bld)4 %Normal4-8[facility] on above:Performed By: #### LIVP, BMPX, CDP #### [facility] Lab [address] [place], [place] [id number] Wireless Operator: JOSE L Lordorphology Ki (Bld) [Interp]Manual Differential PerformedNormalMercy Kevin HospitalComment on above:Performed By: #### LIVP, BMPX, CDP #### [facility] Lab [address] [place] [address] Wireless Operator: Willy Henson MDNeutrophil (Seg)69 %Zdoiab26-14ElphsRegional Medical CenterComment on above:Performed By: #### LIVP, BMPX, CDP #### [facility] Lab [address] [place] [address] Wireless Operator: Willy Henson MDErythrocyte distribution width (RBC) [Ratio]12.7 % Kttnen92.1-15.2MSt. Elizabeth HospitalComment on above:Performed By: #### LIVP, BMPX, CDP #### [facility] Lab [address] [place] [address] Wireless Operator: Willy Henson MDHematocrit (Bld) [Volume fraction]34.7 %Low 36.0-46.0Regional Medical CenterComment on above:Performed By: #### LIVP, BMPX, CDP #### [facility] Lab [address] [place] [address] Wireless Operator: Willy Henson MDHemoglobin (Bld) [Mass/Vol]11.4 g/dLLow12.0-16.0 [facility] Ohioment on above:Performed By: #### LIVP, BMPX, CDP #### [facility] Lab [address] [place] [phone] Wireless Operator: JOSE L LordCH (RBC) [Entitic mass]29.5 mcZufuuv10.0-34.0 Regional Medical CenterComment on above:Performed By: #### LIVP, BMPX, CDP #### [facility] Lab [address] [place] [phone] Wireless Operator: JOSE L LordCHC (RBC) [Mass/Vol]32.9 g/zTPomjho89.0-37.0Reg[facility] Medical CenterComment on above:Performed By: #### LIVP, BMPX, CDP #### [facility] Lab [address] [place] [address] Wireless Operator: KELI Lord (RBC) [Entitic vol]89.7 tINpcaju40.0-100.0 Regional Medical CenterComment on above:Performed By: #### LIVP, BMPX, CDP #### [facility] Lab [address] [place] [address] Wireless Operator: Deana Lord mean volume (Bld) [Entitic vol]11.2 fL Normal6.0-12.0Regional Medical CenterComment on above:Performed By: #### LIVP, BMPX, CDP #### [facility] Lab [address] [place] [address] Wireless Operator: Charlene Lord (Bld) [#/Vol]146 10*3/xWOxphif248-490 Regional Medical CenterComment on above:Performed By: #### LIVP, BMPX, CDP #### [facility] Lab [address] [place] [address] Wireless Operator: KAYE Lord (Bld) [#/Vol]3.87 10*6/uLLow4.00-5.20Reg[facility] Medical CenterComment on above:Performed By: #### LIVP, BMPX, CDP #### [facility] Lab [address] [place], [place] [id number] Wireless Operator: CHRISTOPH Lord (Bld) [#/Vol]20.3 10*3/uLCritically high 3.5-11.0Reg[facility] Medical CenterComment on above:Performed By: #### LIVP, BMPX, CDP #### [facility] Lab [address] [place] [address] Wireless Operator: Willy Henson MDLiver Profileon [id number] [Mass/Vol]3.6 g/dLNormal3.5-5.2MSt. Elizabeth HospitalComment on above:Performed By: #### LIVP, BMPX, CDP #### [facility] Lab [address] [place] [address] Wireless Operator: Neptali Lord Phos91 U/SVaxaqo61-788RwvqiRegional Medical CenterComment on above:Performed By: #### LIVP, BMPX, CDP #### [facility] Lab [address] [place] [address] Wireless Operator: Willy Henson MDALT [Catalytic activity/Vol]55 U/LHigh5-33Reg[facility] Medical CenterComment on above:Performed By: #### LIVP, BMPX, CDP #### [facility] Lab [address] [place] [phone] Wireless Operator: Willy Henson MDAST [Catalytic activity/Vol]53 U/LHigh<32[facility] Medical CenterComeaton rapids medical center on above:Performed By: #### LIVP, BMPX, CDP #### [facility] Lab [address] [place] [address] Wireless Operator: Willy Henson MDBilirubin [Mass/Vol]0.7 mg/dLNormal0.3-1.2MSt. Elizabeth HospitalComeaton rapids medical center on above:Performed By: #### LIVP, BMPX, CDP #### [facility] Lab [address] [place] [address] Wireless Operator: Willy Henson MDBilirubin, IndirectCan not be calculatedNormal 0.0-1.0[facility] on above:Performed By: #### LIVP, BMPX, CDP #### [facility] Lab [address] [place] [address] Wireless Operator: Miguel Lordirubin.indirect [Mass/Vol]mg/dLNormal<0.3Mmercy health allen hospitaly [facility] HospitalComment on above:Performed By: #### LIVP, BMPX, CDP #### [facility] Lab [address] [place] [address] Wireless Operator: DESTINEE Lordrotein [Mass/Vol]5.9 g/dLLow6.4-8.3MercDelaware County Hospital HospitalComment on above:Performed By: #### LIVP, BMPX, CDP #### [facility] Lab [address] [place] [address] Wireless Operator: Antonia Lord [id number] Coag (Bld) [Time]25.8 s Ohvcjf79.9-33.8Regional Medical CenterComment on above:Result Comment: IV Heparin Therapy Range: 62.0-94.0Performed By: #### PTT, PT ####[facility] Hka[address] [place] [address] Lab Director: EDISON Lord with Diffon [id number]. BasophilNormal0.0-0.2Mmercy health allen hospitaly [facility] HospitalComment on above:Performed By: #### LACTIC, CDP, CP #### [facility] Lab [address] [place] [address] Wireless Operator: Chapin Lord. EosinophilNormal0.0-0.4[facility] Comment on above:Performed By: #### LACTIC, CDP, CP #### [facility] Lab [address] [place] [address] Wireless Operator: Chapin Lord.Imm.GranulocyteNormal0.00-0.30[facility] Medical CenterComment on above:Performed By: #### LACTIC, CDP, CP #### [facility] Lab [address] [place] [id number] Wireless Operator: Chapin Lord.Neutrophil (Seg)12.04 k/uLHigh2.5-7.0Reg[facility] Medical CenterComment on above:Performed By: #### LACTIC CDP, CP #### [facility] Lab [address] [place] [address] Wireless Operator: Valarie LordsophilNormal0-2MSt. Elizabeth HospitalComment on above:Performed By: #### LACTIC CDP, CP #### [facility] Lab [address] [place] [address] Wireless Operator: ADOLFO LordosinophilNormal0-5[facility] Ohioment on above:Performed By: #### LACTIC CDP, CP #### [facility] Lab [address] [place] [address] Wireless Operator: Janny Lord XgjftmaymjsDcciae0Oqcfr [facility] Comment on above:Performed By: #### LACTIC CDP, CP #### [facility] Lab [address] [place] [address] Wireless Operator: Erick Lordmphocytes (Bld) [#/Vol]5.13 10*3/uLHigh1.0-4.8 [facility] on above:Performed By: #### LACTIC CDP, CP #### [facility] Lab [address] [place] [address] Wireless Operator: Erick Lordmphocytes/100 WBC (Bld)29 %Bgfhoh49-09XzjvrKing's Daughters Medical Center Ohioment on above:Performed By: #### LACTIC CDP, CP #### [facility] Lab [address] [place] [address] Wireless Operator: JOSE L Lordonocytes (Bld) [#/Vol]0.53 10*3/uLNormal0.0-1.0 [facility] on above:Performed By: #### LACTIC, CDP, CP #### [facility] Lab [address] [place] [id number] Wireless Operator: JOSE L Lordonocytes/100 WBC (Bld)3 %Low4-8Reg[facility] Medical CenterComment on above:Performed By: #### LACTIC, CDP, CP #### [facility] Lab [address] [place] [phone] Wireless Operator: JOSE L Lordorphology Ki (Bld) [Interp]Manual Differential PerformedNormOhioHealth Van Wert HospitalComment on above:Performed By: #### LACTIC, CDP, CP #### [facility] Lab [address] [place] [address] Wireless Operator: Willy Henson MDNeutrophil (Seg)68 %Stytwg10-66TvbebRegional Medical CenterComment on above:Performed By: #### LACTIC, CDP, CP #### [facility] Lab [address] [place] [address] Wireless Operator: Willy Henson MDErythrocyte distribution width (RBC) [Ratio]12.5 % Rjhxwz99.1-15.2MSt. Elizabeth HospitalComment on above:Performed By: #### LACTIC, CDP, CP #### [facility] Lab [address] [place] [phone] Wireless Operator: Willy Henson MDHematocrit (Bld) [Volume fraction]37.1 %Normal 36.0-46.0Regional Medical CenterComment on above:Performed By: #### LACTIC, CDP, CP #### [facility] Lab [address] [place] [phone] Wireless Operator: Willy Henson MDHemoglobin (Bld) [Mass/Vol]12.2 g/dLNormal 12.0-16.0Regional Medical CenterComment on above:Performed By: #### LACTIC, CDP, CP #### [facility] Lab [address] [place] [address] Wireless Operator: JOSE L LordCH (RBC) [Entitic mass]29.5 ksItzqbu68.0-34.0 [facility] Ohioment on above:Performed By: #### LACTIC, CDP, CP #### [facility] Lab [address] [place] [id number] Wireless Operator: KIRBY LordC (RBC) [Mass/Vol]32.9 g/xWGzrhea26.0-37.0[facility] Medical CenterComeaton rapids medical center on above:Performed By: #### LACTIC CDP, CP #### [facility] Lab [address] [place] [id number] Wireless Operator: JOSE L LordCV (RBC) [Entitic vol]89.6 jVQtxtxa81.0-100.0 [facility] on above:Performed By: #### LACTICDIDI, CP #### [facility] Lab [address] [place] [id number] Wireless Operator: Deana Lord mean volume (Bld) [Entitic vol]10.9 fL Normal6.0-12.0[facility] on above:Performed By: #### LACTIC CDP, CP #### [facility] Lab [address] [place] [id number] Wireless Operator: Claudio Lordtedaniela (Bld) [#/Vol]147 10*3/xNWwjzei910-866 [facility] on above:Performed By: #### LACTIC, CDP, CP #### [facility] Lab [address] [place] [id number] Wireless Operator: MALORIE LordBC (Bld) [#/Vol]4.14 10*6/uLNormal4.00-5.20Reg[facility] Medical CenterComment on above:Performed By: #### LACTIC, CDP, CP #### [facility] Lab [address] [place] [address] Wireless Operator: Willy Henson MDW ([facility]) [#/Vol]17.7 10*3/uLHigh3.5-11.0Regional Medical CenterComment on above:Performed By: #### LACTIC, CDP, CP #### [facility] Lab [address] [place] [address] Wireless Operator: Chapin Lord. Atypical Lymphs0.29 k/uLNormal0.0-1.0Regional Medical CenterComment on above:Performed By: #### CDP, CP, TROPI ####[facility] Nnu5036 [facility] [phone] Director: Chapin Lord. BasophilNormal0.0-0.2MSt. Elizabeth Hospital Comment on above:Performed By: #### DIDI CP, TROPI ####[facility] Ikm6865 [facility] [place], YF[address] Lab Director: Chapin Lord.Imm.GranulocyteNormal0.00-0.30Reg[facility] Medical CenterComment on above:Performed By: #### DIDI, CP, TROPI ####[facility] Rsh8449 [facility], [place] Lab Director: Willy Henson MD Abs.Neutrophil (Seg)6.15 k/uLNormal2.5-7.0Regional Medical CenterComment on above:Performed By: #### CDP, CP, TROPI ####[facility] Fdr2950 [facility], [place] Lab Director: Willy Henson MD Atypical Lymphs2 %NormalRegional Medical CenterComment on above:Performed By: #### DIDI, CP, TROPI ####[facility] Ldl[address] [place], YL[address] Lab Director: Valarie LordsophilNormal0-2 Regional Medical CenterComment on above:Performed By: #### DIDI, CP, TROPI ####[facility] Nng[address] [place], [phone] Director: ADOLFO Lordosinophils (Bld) [#/Vol]0.29 10*3/uLNormal 0.0-0.4Reg[facility] Medical CenterComment on above:Performed By: #### DIDI, CP, TROPI ####[facility] Srs[address] [place], [phone] Director: Dagmar Lordophils/100 WBC (Bld)2 %Normal0-5Regional Medical CenterComment on above:Performed By: #### DIDI, CP, TROPI ####[facility] Icj[address] [place], [place] Lab Director: Janny Lord VshozpfnojiUijuev6Bphgi [facility] Comment on above:Performed By: #### DIDI, CP, TROPI ####[facility] Fai[address] [facility] [place] [place], [address]([facility])[phone] Director: Erick Lordmphocytes (Bld) [#/Vol]6.43 10*3/uLHigh1.0-4.8[facility] Comment on above:Performed By: #### DIDI, CP, TROPI ####[facility] Hmh[address] [place], [place] Lab Director: Yesy Lordhocytes/100 WBC (Bld)45 %Oeoz65-90JzukhRegional Medical CenterComment on above:Performed By: #### DIDI, CP, TROPI ####[facility] Afr[address]879 [facility] [place]harleen [place], [place] Lab Director: Willy Henson MD Monocytes (Bld) [#/Vol]1.14 10*3/uLHigh0.0-1.0Reg[facility] Medical CenterComment on above:Performed By: #### DIDI, CP, TROPI ####[facility] Yzc5768 [facility] [place], [place] Lab Director: Willy Henson MD Monocytes/100 WBC (Bld)8 %Normal4-8Regional Medical CenterComment on above: Performed By: #### DIDI, CP, TROPI ####[facility] Oqz1106 [facility] [place], [place] Lab Director: JOSE L Lordorphology Ki (Bld) [Interp]Manual Differential PerformedNormOhioHealth Van Wert Hospital Comment on above:Performed By: #### DIDI CP, TROPI ####[facility] Kuk[address] [facility] [place] Lab Director: Willy Henson MDNeutrophil (Seg)43 %Zvz90-41PzwqlRegional Medical CenterComment on above: Performed By: #### DIDI, CP, TROPI ####[facility] Qgj5895 [facility], [id number] Lab Director: Willy Henson MDErythrocyte distribution width (RBC) [Ratio]12.7 %Puhxwu43.1-15.2MSt. Elizabeth Hospital Comment on above:Performed By: #### DIDI, CP, TROPI ####[facility] Jjg8641 [facility], [place] Lab Director: Willy Henson MDHematocrit (Bld) [Volume fraction]38.0 %Icsdhx05.0-46.0Reg[facility] Medical CenterComment on above:Performed By: #### ABEL TOLBERT, TROPI ####[facility] Ifb[address] [place], [place] Lab Director: Willy Henson MDHemoglobin (Bld) [Mass/Vol]12.5 g/nRUrskfw44.0-16.0[facility] Medical CenterComment on above:Performed By: #### ABEL TOLBERT, TROPI ####[facility] Swl97[address] [place], [place] Lab Director: JOSE L LordCH (RBC) [Entitic mass]29.3 aaHlzmmp17.0-34.0[facility] Medical CenterComment on above:Performed By: #### ABEL TOLBERT, TROPI ####[facility] Fft[address] [place], [place] Lab Director: KIRBY LordC (RBC) [Mass/Vol]32.9 g/iTUoyvtk52.0-37.0Reg[facility] Medical CenterComment on above:Performed By: #### ABEL TOLBERT, TROPI ####[facility] Rnf9747 [place], [place] Lab Director: JOSE L LordCV (RBC) [Entitic vol]89.2 wXRgvakq92.0-100.0Reg[facility] Medical CenterComment on above:Performed By: #### ABEL TOLBERT, TROPI ####[facility] Txa[address] [place], H[place] Lab Director: DESTINEE Lordlatelet mean volume (Bld) [Entitic vol]11.0 fLNormal6.0-12.0 [facility] Medical CenterComment on above:Performed By: #### DIDI CP, TROPI ####[facility] Fxn[address]108 [address] [place], [phone] Director: DESTINEE Lordhitetufts medical center (Bld) [#/Vol]159 10*3/uLNormal 140-450Reg[facility] Medical CenterComment on above:Performed By: #### ABEL TOLBERT TROPI ####[facility] Ust[address] [place], [phone] Director: Willy Henson [facility] HOSPITALBC (d) [#/Vol]4.26 10*6/uLNormal4.00-5.20 Regional Medical CenterComment on above:Performed By: #### ABEL TOLBERT TROPI ####[facility] Pgn[address] [place], [phone] Director: Willy [facility] (d) [#/Vol]14.3 10*3/uLHigh3.5-11.0Regional Medical CenterComment on above:Performed By: #### ABEL TOLBERT TROPI ####[facility] Uoj[address], [id number] lab Director: Willy Henson MDCT ABDOMEN PELVIS W IV CONTRASTon [id number] ABDOMEN PELVIS W IV CONTRASTCT ABDOMEN/PELVIS WITH [...] Signed by: Neptali Johnson MD 06/20/23 Final resultNormalKing's Daughters Medical Center Ohiop Metabolic Profon 92-32-5117Lhhqyqw [Mass/Vol]4.3 g/dLNormal3.5-5.2MercSeton Medical CenterComment on above:Performed By: #### DIDI ROWLEY, CP #### [facility] Lab [address] [place] [address] Wireless Operator: Shelli Lordkaline Oydr155 U/GJwbv85-983LnvkzRegional Medical CenterComment on above:Performed By: #### DIDI ROWLEY, CP #### [facility] [address] [place] [phone] Wireless Operator: Willy Henson MDALT [Catalytic activity/Vol]20 U/LNormal5-33Reg[facility] Medical CenterComeaton rapids medical center on above:Performed By: #### DIDI ROWLEY, CP #### [facility] [address] [place] [address] Wireless Operator: Willy Henson MDAnion gap [Moles/Vol]10 mmol/LNormal9-17Regional Medical CenterComment on above:Performed By: #### LACTIC, CDP, CP #### [facility] [address] [place] [address] Wireless Operator: Willy Henson MDAST [Catalytic activity/Vol]20 U/LNormal<32Regional Medical CenterComment on above:Performed By: #### LACTIC, CDP, CP #### [facility] [address] [place] [address] Wireless Operator: Willy Henson MDBilirubin [Mass/Vol]0.2 mg/dLLow0.3-1.2MSt. Elizabeth HospitalComment on above:Performed By: #### LACTIC, CDP, CP #### [facility] [address] [place] [address] Wireless Operator: Willy Henson MDBUN/CRE Swopw74Loot4-37TxiuiRegional Medical Center Comment on above:Performed By: #### LACTIC, CDP, CP #### [facility] [address] [place] [address] Wireless Operator: PATTIE Lordalcium [Mass/Vol]8.8 mg/dLNormal8.6-10.4Regional Medical CenterComment on above:Performed By: #### LACTIC, CDP, CP #### [facility] [address] [place] [address] Wireless Operator: PATTIE Lordhloride [Moles/Vol]99 mmol/YUotkvz43-514NdqfbRegional Medical CenterComment on above:Performed By: #### LACTIC, CDP, CP #### [facility] [address] [place] [address] Wireless Operator: Willy Henson MDCO2 [Moles/Vol]24 mmol/OTikmdq05-84LnzruRegional Medical CenterComment on above:Performed By: #### LACTIC, CDP, CP #### [facility] [address] [place] [address] Wireless Operator: PATTIE Lordreatinine [Mass/Vol]0.8 mg/dLNormal0.5-0.9Regional Medical CenterComment on above:Performed By: #### LACTIC CDP, CP #### [facility] [address] [place] [phone] Wireless Operator: Willy Henson MDGFR/1.73 sq M.predicted among non-blacks MDRD (S/P/Bld) [Vol rate/Area]74 mL/min/{1.73_m2}Normal>60[facility] Comment on above:Result Comment: These [...] secretion.Performed By: #### HALLEY CDP, CP #### [facility] [address] [place] [address] Wireless Operator: Willy Henson MDGlucose [Mass/Vol]155 mg/gRKyyr81-20XbabxSt. Elizabeth HospitalComment on above:Performed By: #### HALLEY CDP, CP #### [facility] [address] [place] [address] Wireless Operator: Willy Henson MDPotassium [Moles/Vol]4.0 mmol/LNormal3.7-5.3Mmercy health allen hospitaly [facility] Surgical HospitalComment on above:Performed By: #### LACTIC CDP, CP #### [facility] [address] [phone] Wireless Operator: Willy Henson MDProtein [Mass/Vol]6.6 g/dLNormal6.4-8.3Mmercy health allen hospitaly [facility] Surgical HospitalComment on above:Performed By: #### LACTIC CDP, CP #### [facility] [address] [place] [address] Wireless Operator: Willy Henson MDSodium [Moles/Vol]133 mmol/BEmw758-862PeowtRegional Medical CenterComment on above:Performed By: #### LACTIC, CDP, CP #### [facility] [address] [place] [address] Wireless Operator: Willy Henson MDUrea nitrogen [Mass/Vol]21 mg/dLNormal8-23Regional Medical CenterComment on above:Performed By: #### LACTIC, CDP, CP #### [facility] [address] [place] [address] Wireless Operator: Willy Henson MDAlbumin [Mass/Vol]4.3 g/dLNormal3.5-5.2MSt. Elizabeth HospitalComment on above:Performed By: #### CDP, CP, TROPI ####[facility] [address] [place], [place] Lab Director: Neptali Lord Pbpa350 U/DOmrn51-989HpgqiRegional Medical Center Comment on above:Performed By: #### CDP, CP, TROPI ####[facility] Qln74[address] [facility] RamonMclean Hospitalbettie, [place] Lab Director: Willy Henson MDALT [Catalytic activity/Vol]19 U/LNormal5-33[facility] Comment on above:Performed By: #### CDP, CP, TROPI ####[facility] Pfh[address] [facility] [place], [id number] Lab Director: Letha Lord gap [Moles/Vol]11 mmol/LNormal9-17Regional Medical CenterComment on above:Performed By: #### CDP, CP, TROPI ####[facility] [address] [place], [place] Lab Director: Willy Henson MD AST [Catalytic activity/Vol]19 U/LNormal<32Regional Medical CenterComment on above:Performed By: #### ABEL TOLBERT, TROPI ####[facility] Tkb[address], [place] Lab Director: Willy Henson MD Bilirubin [Mass/Vol]0.3 mg/dLNormal0.3-1.2MSt. Elizabeth HospitalComment on above:Performed By: #### ABEL TOLBERT, TROPI ####[facility] Eku[address], [place] Lab Director: Willy Henson MD BUN/CRE Rppzg26Fyvi5-05VawabRegional Medical CenterComment on above:Performed By: #### ABEL TOLBERT, TROPI ####[facility] Qya[address], [place] Lab Director: PATTIE Lordalcium [Mass/Vol]9.8 mg/dL Normal8.6-10.4Regional Medical CenterComment on above:Performed By: #### ABEL TOLBERT, TROPI ####[facility] [address]sy[address] [place] [address] Lab Director: PATTIE Lordhloride [Moles/Vol]101 mmol/L Socxug87-549UxlddRegional Medical CenterComment on above:Performed By: #### ABEL TOLBERT, TROPI ####[facility] Ueq[address] [place] [address] Lab Director: PATTIE LordO2 [Moles/Vol]26 mmol/LNormal 20-31Regional Medical CenterComment on above:Performed By: #### DIDI CP, TROPI ####[facility] Ebc[address], [phone] Director: PATTIE Lordreatinine [Mass/Vol]1.2 mg/dLHigh0.5-0.9Regional Medical CenterComment on above:Performed By: #### ABEL TOLBERT TROPI ####[facility] Vxs[address], [place] Lab Director: Willy Henson MDGFR/1.73 sq M.predicted among non-blacks MDRD (S/P/Bld) [Vol rate/Area]45 mL/min/{1.73_m2}Low>60MerMount Vernon HospitalComment on above:Result Comment: These results are [...] tubular secretion.Performed By: #### ABEL TOLBERT TROPI ####[facility] Lss[address], [phone] Director: Willy Henson MDGlucose [Mass/Vol]130 mg/pUGvot08-19Otlhz [facility] HospitalComment on above:Performed By: #### ABEL TOLBERT TROPI ####[facility] Rtx[address] [place], [place] Lab Director: DESTINEE Lordotassium [Moles/Vol]3.8 mmol/LNormal3.7-5.3Mmercy health allen hospitaly [facility] HospitalComment on above:Performed By: #### ABEL TOLBERT TROPI ####[facility] Etf[address], [address] Lab Director: Willy Henson MDProtein [Mass/Vol]6.8 g/dLNormal6.4-8.3Mmercy health allen hospitaly [facility] HospitalComment on above:Performed By: #### ABEL TOLBERT TROPI ####[facility] [address], [place] Lab Director: FANY Lordodium [Moles/Vol]138 mmol/WCdcsbz938-621MfjnnRegional Medical Center Comment on above:Performed By: #### ABEL TOLBERT, TROPI ####[facility] Wup[address], [place] Lab Director: Willy Henson MDUrea nitrogen [Mass/Vol]27 mg/dLHigh8-23Regional Medical CenterComment on above:Performed By: #### ABEL TOLBERT, TROPI ####[facility] Hok[address], IZ[address] lab Director: Willy Henson MD D-Dimer Teston 16-71-6696M-Dimer Test0.36 ug/mL FEUNormal0.00-0.59Regional Medical CenterComment on above:Result Comment: When combined with a [...] with distal DVT.Performed By: #### DIME #### [facility] Lab [address] [place], [place] [address] Wireless Operator: Willy Henson MDLactic Acidon 53-24-0007Qetxycd [Moles/Vol]1.2 mmol/LNormal0.5-2.2MEast Liverpool City Hospitalment on above:Performed By: #### LACTIC, CDP, CP #### [facility] Lab [address] [place] [address] Wireless Operator: Willy Henson MDLipaseon 87-22-1272Vsyqsf [Catalytic activity/Vol] 24 U/HSuswuo87-57BlxupRegional Medical CenterComment on above:Performed By: #### LIP #### [facility] Lab [address] [place], [place] [address] Wireless Operator: Liat Lord 64-52-2867CRM Coag (PPP) [Relative time]1.1 {INR}NormalRegional Medical CenterComment on above:Result Comment: Therapeutic Range: Moderate Anticoagulant Intensity: INR = 2.0-3.0 High Anticoagulant Intensity: INR = 2.5-3.5Performed By: #### PTT, PT ####[facility] Kbw[address] [place], [place] [address] Lab Director: AMRITA Lord Coag (PPP) [Time]13.8 qRuesss51.5-14.2MSycamore Medical Center on above:Performed By: #### PTT, PT ####[facility] Tjh99[address] [place], [place] [address] Lab Director: Willy Henson MDTroponinon 65-46-1844Pzhoaulo, High Sens6 ng/LNormal0-14[facility] on above:Result Comment: High Sensitivity Troponin values cannot be compared with other Troponin methodologies.Performed By: #### CDP, CP, TROPI ####[facility] [address] [place], [place] lab Director: Willy Henson MDUS ABDOMEN LIMITEDon [id number] ABDOMEN LIMITEDEXAM: US ABDOMEN LIMITED HISTORY: RUQ pain, question of gallstones on CT. COMPARISON: CT scan abdomen and pelvis 06/20/2023, [facility] abdominal ultrasound 04/04/2023, which showed multiple [...] since this was not present on 04/04/2023 [place] ultrasound). IMPRESSION: The right kidney substantially shadowed by gas without hydronephrosis. Cholelithiasis. Tumefactive sludge versus large gallbladder polyp (less likely since this was not present on 04/04/2023 [place] ultrasound). Interpreted by: Joel Osullivan Jr., MD Signed by: Joel Osullivan Jr., MD 06/20/23 Final resultNoPremier HealthXR CHEST PORTABLEon [id number] CHEST PORTABLEEXAMINATION:XR CHEST PORTABLE INDICATION:chst pain COMPARISON:01/29/2023 [...] Signed by: Jaelyn Stanley DO 06/20/23 Final resultNoPremier HealthCHEMISTRYOrdered By: SYSTEM SYSTEM on 61-05-0828Eymxocyjnyc [Mass/Vol]210 mg/wCClik200 - 200 mg/dLRemisol Chem Cholesterol in HDL [Mass/Vol]43 mg/dLInvalid Interpretation CodeRemisol Chem Comment on above:Result Comment: '>= 60 LOW RISK' '<= 40 HIGH RISK'Cholesterol in LDL [Mass/Vol]144 mg/dLHigh<=129mg/dLRemisol ChemCholesterol in VLDL [Mass/Vol]26 mg/dLNormal7 - 40 mg/dLRemisol Chem Triglyceride [Mass/Vol]129 mg/dLNormal<=149mg/dLRemisol Chem Vital Signs Date TimeVital SignValuePerforming HcdzsqnzsLuyzcedr56-51-6981 09:24-0400Body qazzqs448.4 Silvina Rosen MD Work Phone: [phone] [place], [place] [address]Wevfnhatba94-89-0507 09:24-0400Body mass index (BMI) [Ratio]34.96 kg/k4GncysGaetano Rosen MD Work Phone: [phone] [place], [place] [address]Aavhmaetiu46-46-8431 09:24-0400Body .19 kgGaetano Rosen MD Work Phone: [phone] [place], [place] [address]Niqwbqxoob63-14-8978 09:24-0400Diastolic blood klhjocyl44 mm[Hg]Gaetano Rosen MD Work Phone: [phone])[facility] [place], [place] [address]Uqymyckpud34-85-5451 09:24-0400Heart rate87 /min Gaetano Rosen MD Work Phone: [phone] [place], [place] [address]Uqfhxrbumc32-56-1636 09:24-0400Respiratory rate18 /minGaetano Rosen MD Work Phone: [phone] [place], [place] [address]Vyocpzybvx62-65-9646 09:24-9040BrT8% (BldA) [Mass fraction]94 %Gaetano Rosen MD Work Phone: [phone] [place], [place] [address]Zsxkoquxvh54-72-0577 09:24-0400Systolic blood txqfxtpy890 mm[Hg]Gaetano Rosen MD Work Phone: [phone])[address]09-23-2025 09:39-0400Body .4 Guevara Jacobo MD Work Phone: [facility] CenterDzhwtynkkw03-20-6622 09:39-0400Body mass index (BMI) [Ratio]35.74 kg/r4YpycdcCuauhtemoc Jacobo MD Work Phone: [facility] CenterXdovbhsjdn39-68-2541 09:39-0400Body zytrry00.01 kgCuauhtemoc Jacobo MD Work Phone: [facility] CenterOqelusrgtg44-72-7040 09:39-0400Diastolic blood vqvmasqq88 mm[Hg]Cuauhtemoc Jacobo MD Work Phone: [facility] CenterCslzlnujip05-90-3887 09:39-0400Heart rate57 /min Cuauhtemoc Jacobo MD Work Phone: [facility] CenterBhtmmnyhqb34-84-1977 09:39-0400Systolic blood otmdupgu294 mm[Hg]Cuauhtemoc Jacobo MD Work Phone: [facility] CenterMdvxtkmwdd60-63-5909 09:05-0400Body naxjho245.7 Silvina Rosen MD Work Phone: [facility] CenterJlpicgugxz55-13-3187 09:05-0400Body mass index (BMI) [Ratio]35.15 kg/q0FaresGaetano Rosen MD Work Phone: [phone] [place], [place] [address]Ogonimfydg51-68-1267 09:05-0400Body qttevg54.01 kgGaetano Rosen MD Work Phone: [phone] CenterCaqcqnxkzz97-77-3458 09:05-0400Diastolic blood pezaqzqo51 mm[Hg]Gaetano Rosen MD Work Phone: [phone] CenterAsofwexfmv08-92-4550 09:05-0400Heart rate54 /min Gaetano Rosen MD Work Phone: [phone] [place], [place] [address]Ihwumzzmlf37-60-7126 09:05-0400Respiratory rate16 /minGaetano Rosen MD Work Phone: [phone] [place], [place] [address]Wvyrmfxcwx47-23-1622 09:05-3979OiT0% (BldA) [Mass fraction]99 %Gaetano Rosen MD Work Phone: [facility] CenterJjvhhabdnh43-93-4601 09:05-0400Systolic blood szuxwwfp504 mm[Hg]Gaetano Rosen MD Work Phone: [facility] CenterBcrnpoxgon03-10-3506 08:25-0400Body iauqyw756.5 cmCuauhtemoc Jacobo MD Work Phone: [facility] CenterHlxtekmnnu24-05-9781 08:25-0400Body mass index (BMI) [Ratio]33.84 kg/r5HzpedyCuauhtemoc Jacobo MD Work Phone: [phone] Medical CenterRajpdrcdua37-59-5034 08:25-0400Body azaphp79.92 kgCuauhtemoc Jacobo MD Work Phone: [phone]08-12-2025 08:25-0400Diastolic blood nkqrkhyl72 mm[Hg]Cuauhtemoc Jacobo MD Work Phone: [phone]08-12-2025 08:25-0400Heart rate82 /min Cuauhtemoc Jacobo MD Work Phone: [facility] CenterRzowdrdnws42-24-8674 08:25-0400Systolic blood thxmaesi317 mm[Hg]Cuauhtemoc Jacobo MD Work Phone: [phone] CenterKszglvqkfd36-52-0291 13:19-0400Diastolic blood dxazqzff26 mm[Hg]Ernesto Mykel [facility]05-12-2025 13:19-0400Systolic blood jughdlgd054 mm[Hg]Ernesto Ramirez [facility] CenterFwxyfmjnxy24-31-7100 19:02-0400 Body zsuiajjsyov03.1 [degF][facility]05-18-2024 19:02-0400 Diastolic blood cqiwsbkf68 mm[Hg][facility] 01[facility]05-18-2024 19:02-0400Heart rate95 /minMeh 01[facility]05-18-2024 19:02-0400 Respiratory rate16 /minMeh [facility]05-18-2024 19:02-0163TeQ5% (BldA) [Mass fraction]96 %[facility]ENTERVytronUS PROTESTANT HOSPITALAWSQDB34-82-1669 19:02-0400 Systolic blood enkxiedm548 mm[Hg][facility]05-17-2024 06:29-0400Body zcxcjhmaslx09 [degF]Michelle Cox MD Work Phone: [facility]ENTERVytronUS PROTESTANT HOSPITALGJNUSB59-61-2273 06:29-0400Diastolic blood catynnly77 mm[Hg]Michelle Cox MD Work Phone: [facility]ENTERVytronUS PROTESTANT HOSPITALLIRDKU96-07-1159 06:29-0400Heart rate52 /minMichelle Cox MD Work Phone: [facility]ENTERVytronUS [facility] CENTERNu3ONIGJG48-41-3616 06:29-0400 Respiratory rate18 /minMichelle Cox MD Work Phone: [facility]ENTERVytronUS PROTESTANT HOSPITALPULNOY11-42-6044 06:29-4567WdN2% (BldA) [Mass fraction]98 %Michelle Cox MD Work Phone: [facility] CENTERVytronUS PROTESTANT HOSPITALOIVWGO70-05-9960 06:29-0400Systolic blood mm[Hg]Michelle Cox MD Work Phone: [facility] CENTERVytronUS [facility] MKGYIS23-46-5017 03:35-0400Body mass index (BMI) [Ratio]36.45 kg/m2Michelle Cox MD Work Phone: [facility]ENTERVytronUS [facility] VFXOGC05-10-1673 03:35-0400Body .4 kgMichelle Cox MD Work Phone: [facility] CENTERVytronUS PROTESTANT HOSPITALKAYQHP49-15-5713 07:45-0400Body .5 cmMichelle Cox MD Work Phone: [facility]ENTERVytronUS [facility] UGEHZJ77-76-2510 13:11-0400Body lisgeinwcxu17.59 [degF]Ramon Olea MD Work Phone: [facility] CENTERVytronUS [facility] UBAEVL31-72-2839 13:11-0400Diastolic blood wrxqfeer98 mm[Hg]Ramon Olea MD Work Phone: [facility]05-01-2024 13:Heart rate65 /Vasile Olea MD Work Phone: [facility]05-01-2024 13: Respiratory rate17 /Vasile Olea MD Work Phone: [facility]05-01-2024 13:0197SoW5% (BldA) [Mass fraction]97 %Ramon Olea MD Work Phone: [facility]05-01-2024 13:Systolic blood nakotrww042 mm[Hg]Ramon Olea MD Work Phone: [facility]05-01-2024 07:32-0400Body czulni578.5 cmRamon Olea MD Work Phone: [facility]05-01-2024 05:14-0400Body mass index (BMI) [Ratio]34.27 kg/r0HmeqwhjRamon Olea MD Work Phone: [facility]05-01-2024 05:14-0400Body jzmtyh23 kgRamon Olea MD Work Phone: [facility]02-21-2023 08:07-0500Body hirkhs145.5 cmRvidhi Lopes MD Work Phone: [phone]cynhl78-69-9478 08:07-0500Body mass index (BMI) [Ratio]37.49 kg/o5FsubxsLuis Felipe Lopes MD Work Phone: [phone]eejjq35-46-7827 08:07-0500Body dhvuvn20.99 kg Luis Felipe Lopes MD Work Phone: 1(751) [phone]ypvoh91-48-1819 08:32-0500Body .5 cm Luis Felipe Lopes MD Work Phone: [phone]jsqmj35-80-7900 08:32-0500Body mass index (BMI) [Ratio]37.49 kg/u5WnuhbiLuis Felipe Lopes MD Work Phone: [phone]btgzw48-24-3652 08:32-0500Body oshudi05.99 kg Luis Felipe Lopes MD Work Phone: [facility] Encounters Encounter DateEncounter TypeCare ProviderFacilityStart: 12-63-3094ewemydrdiySCK Camila Moreno SchwabFacility:FT FM BellevueStart: 01-09-2025 End: 87-04-0288qipaechxfeTPC KIA [place] EDGARDANNFacility:FT FM BellevueStart: 01-06-2025 End: 72-48-0494shuvxpkasfAYUHCUIKettering Health Troytart: 01-06-2025 End: 71-79-6345sbtolrpkzlPDJINOKKettering Health Troytart: 12-22-2024 End: 43-47-0087Diqdgebqg encounterGaetano Rosen MD Work Phone: noms Cassy EndocrinologyComment on above:Advice OnlyReferralStart: 12-18-2024 End: 88-69-4062Bbdlpm flowsKatrin Rosen MD Work Phone: noms Cassy EndocrinologyStart: 12-18-2024 End: 47-31-7126Jkcaredillon Rosen MD Work Phone: noms Cassy EndocrinologyStart: 12-18-2024 End: 04-72-9807Ddncuy outpatient visit 25 minutesGaetano Rosen MD Work Phone: noms Cassy EndocrinologyComment on above: Subclinical hyperthyroidism (Primary Dx); Thyroid noduleStart: 12-18-2024 End: 11-81-9676eevqfxggflJCYZO F SABBAGHNot AvailableStart: 12-15-2024 End: 07-67-9965rioamlasznSMAATFISt. Vincent Hospitaltart: 12-15-2024 End: 76-78-1452bfqgjpejunEOLUTXJKettering Health Troytart: 12-10-2024 End: 81-32-8676udkcotblucSXF KIA A LEHMANNFacility:FT FM BellevueStart: 12-09-2024 End: 96-66-8405Mnmpnzmaine Jacobo MD Work Phone: NOTS Isael OtolaryngologyStart: 12-09-2024 End: 22-75-1912Enmvet Ruslan Jacobo MD Work Phone: NOYM Isael OtolaryngologyStart: 12-09-2024 End: 84-39-0030Izhpiw outpatient visit 15 minutesCuauhtemoc Jacobo MD Work Phone: NOJP Isael OtolaryngologyComment on above:Thyroid mass (Primary Dx)Start: 12-09-2024 End: 60-87-3914wuzpagcuavJLFEMT H TIMMISNot AvailableStart: 12-08-2024 End: 21-69-5046Lkjfotphg encounterCuauhtemoc Jacobo MD Work Phone: NOAN Isael OtolaryngologyComment on above:blood resultsStart: 12-04-2024 End: 74-24-0498Eniphm Blas Rosen MD Work Phone: NOMS Cassy EndocrinologyStart: 12-04-2024 End: 57-14-0104Vcxpkj Blas Rosen MD Work Phone: NOMS Cassy EndocrinologyStart: 12-04-2024 End: 89-31-2828Zisvfb outpatient new 45 minutesGaetano Rosen MD Work Phone: NOMS Cassy EndocrinologyComment on above: Subclinical hyperthyroidism (Primary Dx); Thyroid noduleStart: 12-04-2024 End: 16-39-8159aomjewyljrOWIYUHunter Doty AvailableStart: 12-03-2024 End: 33-91-9001sdmmwvjzfoUqujgpl R NILLFacility:GS BellevueStart: 12-03-2024 End: 76-14-5579Oaquwym encounter procedureAlfonso DUDLEY [phone]-WomkwElyria Memorial Hospital [facility] [place] Start: 11-21-2024 End: 46-48-6175ublcwkwuiwRgsc L SchwabFacility:FTMCStart: 11-21-2024 End: 04-45-8857jzpfnhyymuGRYWCQ A LEHMANNFacility:FT BellevueStart: 11-19-2024 End: 08-10-2290mekrhbokokQyrlyoy R [facility] Work Phone: Start: 11-19-2024 End: 43-39-3601Zqglquxf ReferredAlfonso Dudley MD FACS-LAB Path Spec Chan HospStart: 11-19-2024 End: 84-44-8963jdcwofctrdKifecaj R NILLFacility:CD:[id number]: 11-13-2024 End: 14-47-7169oncrtvadexPthtif H Timmis [facility] Work Phone: Start: 11-13-2024 End: 92-11-0716Mbwhmped Teetee JACOBO MD-LAB Path Spec [facility] Start: 11-13-2024 End: 61-26-5573fuokaagkejNMNJGQ H TIMMISFacility:[facility] HospitalStart: 11-11-2024 End: 24-35-3699ijwcsbeehmPAGIUJ A LEHMANNFacility:FTMCStart: 10-29-2024 End: 93-03-1657fxhqihpxvrXTRMWO A LEHMANNFacility:FTMCStart: 10-28-2024 End: 03-23-8227Eroanmdillon Jacobo MD Work Phone: NOMS Isael OtolaryngologyStart: 10-28-2024 End: 10-01-5544Gqyrxgdillon Jacobo MD Work Phone: NOMS Isael OtolaryngologyStart: 10-28-2024 End: 37-97-1123Oovcuv outpatient new 45 minutesCuauhtemoc Jacobo MD Work Phone: NOMS Isael OtolaryngologyComment on above:Thyroid mass (Primary Dx)Start: 10-28-2024 End: 73-66-2588aqsjcwzmfnFZTWSZ H TIMMISNot AvailableStart: 10-22-2024 End: 62-14-8282jmpbninuidHCTNMV A LEHMANNFacility:FTMCStart: 10-21-2024 End: 51-55-4448iymstghjgdVkdvoqc R NILLFacility:[facility] BellevueStart: 10-21-2024 End: 25-63-0117Sfmmtqt encounter procedureMichael R NILL [phone]-WuqnwE[facility] [place] Start: 10-14-2024 End: 30-17-4526seoaqnjsjpDyvb L SchwabFacility:FTMCStart: 07-28-2024 End: 03-99-7157Pqugpc Al Shweiki Work Phone: RVCeferino ToledoStart: 70-06-3203plzxbengxuAunaro Al Shvera [facility] InstituteStart: 07-23-2024 End: 72-14-2722Zyuzcd T Nelsen Jr Work Phone: RVCeferino ToledoStart: 87-99-9591qrvyfmvdkfVquzda T Nelsen JrC[facility] Clinic [facility] InstituteStart: 06-13-2024 End: 74-47-9301Khuvhr outpatient visit 25 minutesRobcaren Lopes MD Work Phone: [facility] Orthopedic SurgeonsComment on above:History of total right knee replacement (Primary Dx); Spinal stenosis, lumbar region, without neurogenic claudication; Primary osteoarthritis of left kneeStart: 06-13-2024 End: 30-77-0721pkwivhcmclWRPZ [facility] AmbulatoryStart: 04-24-2024 End: 75-89-3209llmwclyfyiSlsk L SchwabFacility:FT FM BellevueStart: 04-10-2024 End: 23-38-7642Qge Drop offJodi L Cosmo [facility] Start: 04-10-2024 End: 91-72-6417hqstlmhlghDaba L SchwabFacility:FTMCStart: 08-27-2023 End: 17-47-8063wtgiosnlkbOLWSUTRMICHELET [facility] HospitalStart: 08-06-2023 End: 54-15-5619ggxckpheykVDRRBI IACOBMercy Tiffin HospitalStart: 08-05-2023 End: 18-76-7683bsnswujaieLKXJAP IACOBWilla Brooks HospitalStart: 08-04-2023 End: 74-37-4364zqlfdkzqthNDNMQN [facility] HospitalStart: 08-04-2023 End: 15-11-6285Olvgupqxmk hospital visit by [facility] [address] [facility] ([facility])Comment on above:ArrivedStart: 08-04-2023 End: 48-71-1528jauugmufviGQAEOU IACOBMercy Tiffin HospitalStart: 07-31-2023 End: 52-43-7039Nmunzxrcrg and management of inpatientJODI COSMOMerernestine Brooks HospitalStart: 07-31-2023 End: 24-29-3066Miavzbximp and management of inpatientMark Khalif Cox MD Work Phone: mthz [facility] MED SURGComment on above:Post-operative wound abscess (Primary Dx); Failure of outpatient treatment; Abscess of umbilicus; Abscess of postoperative wound of abdominal wallStart: 07-17-2023 End: 30-14-9137Ipkoegnfbq and management of inpatientRAMON Brooks HospitalStart: 07-17-2023 End: 23-83-2517Hkpajckjeo and management of inpatientRamon Olea MD Work Phone: mthz [facility] MED SURGComment on above:Incarcerated ventral hernia (Primary Dx); Wound dehiscence; Post-op painStart: 62-08-8280Zkrejixoka and management of inpatientJODI [facility] Centertart: 04-04-2023 End: 30-35-9647Nlj Drop Mega SAMUEL [facility] Start: 05-09-2022 End: 40-33-1633Fnttcr outpatient visit 15 minutesLuis Felipe Lopes MD Work Phone: [facility] Orthopedic PhysiciansComment on above: History of total right knee replacement (Primary Dx)Start: 99-54-1540Okejxomarsha [facility] Orthopedic SurgeonsStart: 04-18-2022 End: 73-70-4588Xfvdyp outpatient new 30 minutesLuis Felipe Lopes MD Work Phone: [facility] Orthopedic PhysiciansComment on above: History of total right knee replacement (Primary Dx)Start: 03-29-2022 End: 58-45-6314trvnsirltwBO MIGEL LOPEZERFacility:H1 Procedures DateProcedureProcedure DetailPerforming ClinicianStart: 35-25-7468Qrmpueqo of lipomaMichael NILL Start: 07-28-2024 End: 64-51-6495Hicatpfbhtwo ophthalmic imaging retinaPhilip Betzaida JrStart: 97-50-2367Uniewd Photos No ChargePhilip Betzaida JrStart: 07-28-2024 End: 77-85-1043Nqecvw Photos No Charge BilateralSameer Al Shweiki MDStart: 87-18-2802Jzskaryjuyzgjx aspir&/inj major jt/bursa w/o usLuis Felipe Lopes MD Work Phone: Start: 45-22-4857Ohyvp count complete auto&auto difrntl wbcRobcaren Castañeda MD Work Phone: Start: 08-03-2023 End: 28-08-0437Thisff ecg 1-3 leads w/interpretation & reportUnknown Provider ResultStart: 08-02-2023 End: 09-91-0182Mdaupn ecg 1-3 leads w/interpretation & reportUnknown Provider ResultStart: 99-51-3154Rugeh count complete auto&auto difrntl wbcLuis Felipe Castañeda MD Work Phone: Start: 08-01-2023 End: 26-75-7002Qlwoaq ecg 1-3 leads w/interpretation & reportUnknown Provider ResultStart: 85-97-4178Xrmmn count complete auto&auto difrntl wbcLuis Felipe Castañeda MD Work Phone: Start: 05-76-0639Swevgy ecg 1-3 leads w/interpretation & reportUnknown Provider ResultStart: 85-00-3777Ypj prsmptv pthgnc organism scrn w/colony estimjLuis Felipe Castañeda MD Work Phone: Start: 07-31-2023 End: 03-39-1995TCDKCPT INCISION AND DRAINAGERobcaren Castañeda MD Work Phone: Start: 92-98-3085Suqmkhjwtgfc pulse oximetryLuis Felipe Castañeda MD Work Phone: Start: 37-39-3744Dq abdomen & pelvis w/contrast materialKelly Y La PA-C Work Phone: Start: 62-43-5466Cifot metabolic panel calcium total Richlele Y La PA-C Work Phone: Start: 32-56-1229Xiclfwdrvxyfe metabolic panelRamon Olea MD Work Phone: Start: 07-17-2023 End: 60-39-3608CXGSXR UMBILICAL REPAIR EXTENSIVERamon Olea MD Work Phone: Start: 07-17-2023 End: 78-28-1157UQYNDH ANASTOMOSIS DUODENAL ILEAL BYPASS ROBOTIC ASSISTEDRamon Olea MD Work Phone: Start: 07-17-2023 End: 67-77-6798RXZCJIZIHDM OMPHALECTOMYRamon Olea MD Work Phone: Start: 97-76-4089XqontsjqidwvccwTsiy Cosmo Amputation of thumbMichael NILL Ankle region [...] Plan of Treatment DateCare ActivityDetailAuthorStart: 04-15-2025 End: 29-80-4048Epuheov encounter ljbwuklax65/28/2026 9:00 AM EST Office Visit [facility] [address] [place] [address] Cuauhtemoc Jacoob MD [address] [place] [address] [facility] [place] OtolaryngologyStart: 03-26-2025 End: 88-46-6688Hkgwyzs encounter /08/2026 9:50 AM EST Office [facility] [place] [facility] [address] [place] [address] Gaetano Rosen MD [address] [place] [address] [facility] EndocrinologyStart: 96-81-0102Sgiwyr, Marline 6mo DFE OCT ColorsCVP Physicians Work Phone: Start: 12-18-2024 End: 22-07-3630Blvvvcjjkov [Units/volume] in Serum or PlasmaTSH Lab Routine Subclinical hyperthyroidism Expected: 12/18/2024 (Approximate), Expires: 12/18/2025NOFL HealthcareComment on above:Expected: 12/18/2024 (Approximate), Expires: 12/18/2025Start: 12-18-2024 End: 38-51-1978Ssmcetigs (T4) free [Mass/volume] in Serum or PlasmaT4, free Lab Routine Subclinical hyperthyroidism Expected: 12/18/2024 (Approximate), Expires: 12/18/2025NOFL HealthcareComment on above:Expected: 12/18/2024 (Approximate), Expires: 12/18/2025Start: 12-18-2024 End: 38-57-2023Ecyjqxyfctwbdkgl (T3) Free [Mass/volume] in Serum or PlasmaT3, free Lab Routine Subclinical hyperthyroidism Expected: 12/18/2024 (Approximate), Expires: 12/18/2025[facility] Work Phone: Comment on above:Expected: 12/18/2024 (Approximate), Expires: 12/18/2025Start: 12-18-2024 End: 91-77-6701Yogjjik encounter procedureNOMS [place] EndocrinologyComment on above:ArrivedStart: 12-09-2024 End: 96-11-4996Hyyjutk encounter procedureNOMS [place] OtolaryngologyComment on above:ArrivedStart: 12-04-2024 End: 84-24-7570Egexqecvuosqv AntibodyThyroglobulin Antibody Lab Routine Thyroid nodule Subclinical hyperthyroidism Expected: 12/04/2024 (Approximate), Expires: 12/04/2025[facility] Work Phone: Comment on above:Expected: 12/04/2024 (Approximate), Expires: 12/04/2025Start: 12-04-2024 End: 69-42-7089Gfiptgu peroxidase antibodyThyroid peroxidase antibody Lab Routine Thyroid nodule Subclinical hyperthyroidism Expected: 12/04/2024 (Approximate), Expires: 12/04/2025[facility] HealthcareComment on above:Expected: 12/04/2024 (Approximate), Expires: 12/04/2025Start: 12-04-2024 End: 91-83-3931Owjbaazzmkh [Units/volume] in Serum or PlasmaTSH Lab Routine Thyroid nodule Subclinical hyperthyroidism Expected: 12/04/2024 (Approximate), Expires: 12/04/2025[facility] HealthcareComment on above:Expected: 12/04/2024 (Approximate), Expires: 12/04/2025Start: 12-04-2024 End: 69-15-5730Fcyaolpsayz receptor antibodyThyrotropin receptor antibody Lab Routine Thyroid nodule Subclinical hyperthyroidism Expected: 12/04/2024 (Approximate), Expires: 12/04/2025[facility] HealthcareComment on above:Expected: 12/04/2024 (Approximate), Expires: 12/04/2025Start: 12-04-2024 End: 52-32-2446Yyqutqrjc (T4) free [Mass/volume] in Serum or PlasmaT4, free Lab Routine Thyroid nodule Subclinical hyperthyroidism Expected: 12/04/2024 (Approximate),Expires: 12/04/2025[facility] HealthcareComment on above:Expected: 12/04/2024 (Approximate), Expires: 12/04/2025Start: 12-04-2024 End: 68-44-8597Evzmvebgxouyaqdm (T3) Free [Mass/volume] in Serum or PlasmaT3, free Lab Routine Thyroid nodule Subclinical hyperthyroidism Expected: 12/04/2024 (Approximate),Expires: 12/04/2025NOFL HealthcareComment on above:Expected: 12/04/2024 (Approximate), Expires: 12/04/2025Start: 12-04-2024 End: 05-15-4414Lrlugqz encounter srfbmoiaj06/18/2025 9:50 AM EDT Office Visit [facility] [place] [facility] [address] [place] [address] Gaetano Rosen MD [address] [place] [address] ArrivedNOMS [place] EndocrinologyComment on above:ArrivedStart: 10-76-2917Thaqwrbit vaccinationInfluenza Vaccine (#1) [facility] HealthcareStart: 10-28-2024 End: 85-33-7960Rqxcwma encounter gniswuemy15/12/2025 8:40 AM EDT Office Visit [facility] [address] [facility] [address] [place] [address] Cuauhtemoc Jacobo MD [address] [facility] [address] [place] [address] ArrivedNOMS [place] OtolaryngologyComment on above:ArrivedStart: 11-23-4242KDXLB-19 Vaccine ( season)COVID-19 Vaccine ( season)[facility]HealthStart: 38-12-5805Okieuqwrr vaccination Influenza Vaccine (#1)OhioHealthStart: 63-95-9493Cyuunumwb vaccinationFlu vaccine (Season Ended)[facility]Start: 08-27-2023 End: 59-57-3823Lhjrytk encounter btxdelnkn11/10/2024 2:30 PM EDT Office Visit [facility] Part of [address] [phone] Ramon Olea MD [address] [place] [address] [address] [place] [address] 4 weeksCleveland Clinic Lutheran HospitalComment on above:4 weeksStart: 20-00-6651UVeB/Tdap/Td vaccine (2 - Td or Tdap)DTaP/Tdap/Td vaccine (2 - Td or Tdap)[facility]ITALStart: 84-25-5580Mkxfkpz vaccinationTetanus: Every 10yrsOhioHealthStart: 08-07-2023 End: 10-86-3279Pmswfok encounter /21/2024 2:30 PM EDT Office Visit [address] [place] [phone] Ramon Olea MD [address] [place] [address] [address] [place] [address] post op, fistula 1 and D.[facility] Luther[facility] HospitalComment on above:post op, fistula 1 and D.Start: 08-06-2023 End: 46-17-6497Lpblhxf encounter homfffumy95/20/2024 7:00 AM EDT Appointment [facility] (MOB) [address] [place] [address] [facility] (MOB)Start: 08-05-2023 End: 69-72-9844Nrmkglx encounter procedureSTONY BROOK [facility] ([facility])Start: 08-04-2023 End: 71-79-8654Qgepzin encounter procedureSTONY BROOK [facility] ([facility])Start: 07-25-2023 End: 75-74-9739Txcnbgm encounter afignttjr11/08/2024 4:30 PM EDT Office Visit [address] [place] [phone] Ramon Olea MD [address] [place] [address] [address] [place] [phone] post op check, revision of umbilical incisionWOOD [facility] Part [facility] Medical CenterComment on above:post op check, revision of umbilical incisionStart: 97-00-8928Uciwlo Wellness Visit (Medicare)Annual Wellness Visit (Medicare)[facility]ENTERStart: 05-08-2023 End: 35-81-9591Undayep encounter /20/2024 Office Visit Orthopedic Surgery Luis Felipe Lopes MD [address] [place] [address] [facility] Orthopedic PhysiciansStart: 05-09-2022 End: 07-95-0457Eucesjw encounter wtfolrwug36/21/2023 Office Visit Orthopedic Surgery Luis Felipe Lopes MD [address] [place] [address] [facility] Orthopedic PhysiciansStart: 11-17-2021 Influenza vaccinationSequential Influenza Vaccine (#1)[facility] HospitalStart: 57-63-0516Nfozpwqaqri Syncytial Virus Immunization: Risk, 60-74 Risk, or 75+ (1 - 1-dose 75+ series)Respiratory Syncytial Virus Immunization: Risk, 60-74 Risk, or 75+ (1 - 1-dose 75+ series)OhioOhiohealth [facility] Memorial HospitalStart: 43-04-6296Tgpp risk assessmentFalls Risk AssessmentMdioHealthStart: 2007 Pneumococcal 65+ years Vaccine (1 of 1 - PCV)Pneumococcal 65+ years Vaccine (1 of 1 - PCV)[facility]ENTERStart: 63-17-7694Zbjfkykdtfbb Vaccine: Age 65+ (1 - PCV)Pneumococcal Vaccine: Age 65+ (1 - PCV)OhioHealthStart: 2002 Respiratory Syncytial Virus (RSV) or age 60 yrs+ (1 - 1-dose 60+ series)Respiratory Syncytial Virus (RSV) or age 60 yrs+ (1 - 1-dose 60+ series)[facility]ENTERStart: 39-40-3362Zngatgjuaibudg of herpes zoster vaccineZoster Vaccines (1 of 2)IowaHealthStart: 40-19-5154Nbudrmobkrur Vaccine: 65+ Years (1 of 1 - PCV)Pneumococcal Vaccine: 65+ Years (1 of 1 - PCV)[facility] HealthcareStart: 89-72-9369Krzyfvsheebt Vaccine: Age 50+ (1 of 1 - PCV) Pneumococcal Vaccine: Age 50+ (1 of 1 - PCV)[facility] HospitalStart: 76-41-8162Hspkkbor vaccine (1 of 2)Shingles vaccine (1 of 2)[facility]ITALStart: 61-09-5688Kehsmarfm for malignant neoplasm of breastMammogramSt. Vincent HospitalStart: 32-49-8165Rripbvhxcy ScreenDepression ScreenBON MIAMI VALLEY HOSPITALStart: 46-10-5049Vrhlhoqlhf screening using PHQ-9 (Patient Health Questionnaire 9) scoreMdioHealthStart: 66-99-4580Qhvfxcg and physical examination, annual for health maintenanceWellness VisitMdioHealthStart: 12-17-1945Medicare Wellness VisitMedicare Wellness VisitMdioHealthStart: 36-99-7678RZUYF-19 Vaccine (#1) COVID-19 Vaccine (#1)[facility] HospitalStart: 1942Medicare Annual Wellness (AWV) Medicare Annual Wellness (AWV)[facility] HealthcareStart: 35-05-6197Mxnvhfoil for osteoporosisDexa ScanSt. Vincent Hospital End: 99-11-0293LSU W Auto Differential panel - BloodCBC auto differential Lab Routine Tomorrow AM for 99 Occurrences starting 08/01/2023 until 11/07/2023, 3 [facility] on above:Tomorrow AM for 99 Occurrences starting 08/01/2023 until 11/07/2023, 3 completed End: 46-07-3573Gqdohxlwhxeed Metabolic Panel w/ Reflex to MGComprehensive Metabolic Panel w/ Reflex to MG Lab Routine Tomorrow AM for 99 Occurrences starting 08/01/2023 until 11/07/2023, 3 completedBON Software [facility] on above:Tomorrow AM for 99 Occurrences starting 08/01/2023 until 11/07/2023, 3 completedCulture, Anaerobic and AerobicBON FoneSenseC[facility] on above:Release Upon Ordering for 1 Occurrences starting 07/31/2023Oxygen therapy [Minimum Data Set]Initiate Oxygen Therapy Protocol Respiratory Care Routine As Needed until discontinued starting 07/17/2023ON [facility] CENTERThe SimpleC[facility] on above:As Needed until discontinued starting 04/30/2024Oxygen therapy [Minimum Data Set]Initiate Oxygen Therapy Protocol Respiratory Care Routine As Needed until discontinued starting 07/31/2023 [facility] on above: As Needed until discontinued starting 07/31/2023Surgical PathologySurgical Pathology Lab Routine Wound dehiscence Release Upon Ordering for 1 Occurrences starting 07/17/2023ON [facility] on above:Release Upon Ordering for 1 Occurrences starting 07/17/2023 End: 73-29-8902JYBVAPEC PATHOLOGY REPORTSURGICAL PATHOLOGY REPORT Lab Routine Once for 1 Occurrences starting 07/17/2023 until 07/17/2023ON [employer] [facility] on above:Once for 1 Occurrences starting 07/17/2023 until 07/17/2023 Immunizations Immunization DateImmunizationNotesCare GoyjnelbTwygsaln54-39-6577feudzoo toxoid, reduced diphtheria toxoid, and acellular pertussis vaccine, adsorbedKIA SAMUEL [phone]-CckxqUniversity Hospitals [facility] 05-26-6996oyzmuld and diphtheria toxoids, adsorbed, preservative free, for adult use (2 Lf of tetanus toxoid and 2 Lf of diphtheria toxoid)KIA SAMUEL [phone]-KfiozUniversity Hospitals Beachwood Medical Center NEGATED: Highlighted row has not occurred!93-85-4178vswarrlbx virus vaccine, unspecified formulationCamila Carlos [phone]-CuivqUniversity Hospitals Beachwood Medical Center Payers DatePayer CategoryPayerPolicy [id number] Health [id number] Care (unspecified)[employer] OTHER AFTER MEDICARE [id number] Health Insurance [id number] [id number] [id number] [id number] [id number] 2.16.840.1.604631.3.57[id number] 2..840.1.761138.3.57[id number] 2..840.1.919337.3.57[id number] 2..840.1.832768.3.579.[id number] 2..840.1.100462.3.57[id number] 2..840.1.165289.3.579.2.91323-08-4101Evyxdun85834009 2.16.840.1.778874.3.579.2.08855-54-4189Ihcemuh51367601 2.16.840.1.114848.3.579.[id number] 2.16.840.1.311924.3.579.2.796961-42-1014Wotfqcf044328009 2.16.840.1.056316.3.579.2.34559-51-7727Fzcxymf050875001 2.16.840.1.894804.3.579.2.97494-15-7441Oguyqbh713600183 2.16.840.1.233307.3.579.2.74274-47-5248Bsqjola5373196 2.16.840.1.756353.3.579.2.476687-85-6477Blbtxlq55593583 2.16.840.1.114779.3.579.2.73533-38-6792Bgupqrw12470775 2.16.840.1.368280.3.579.2.60956-76-1902Bwzkmjz45224741 2.16.840.1.699488.3.579.2.66687-77-5245Qdjugaf45304008 2.16.840.1.923097.3.57[id number] 2.16.840.1.448307.3.579.2.19121-49-8850Jmswzxh40033733 2.16.840.1.538084.3.579.2.75423-32-7907Ohblkkz87372463 2.16.840.1.256104.3.579.2.65945-05-6721Lgleyst13937716 2.16.840.1.048328.3.579.2.59459-36-4062Bmbswgg08296241 2.16.840.1.727862.3.579.2.88055-92-5518Ugxswjf02974658 2.16.840.1.481112.3.579.2.18966-39-5886Uqeyknb70039731 2.16.840.1.976192.3.579.2.31163-87-7691Eajtlmo39236085 2.16.840.1.520628.3.579.2.45186-03-3400Fvbxgty97210593 2.16.840.1.507946.3.579.2.96718-14-5436Edlhnuu61645287 2.16.840.1.647343.3.579.2.87285-69-4182Ngbbdjp66545647 2.16.840.1.852949.3.579.2.95673-01-0286Rrqigue44694635 2.16.840.1.624492.3.579.2.969550-34-4392Jfsolrz51578496 2..840.1.418428.3.579.2.701772-98-3573Hqugdef58973495 2.840.1.569387.3.579.2.386865-22-2296Vwzlgzr88891619 2..840.1.721444.3.579.2.638272-60-6817Vsupmiw67539056 2..840.1.717957.3.579.2.94683-22-8299Fzqjaaq73737510 2.840.1.908644.3.579.2.53685-97-2752Shpdooc62502968 2.16.840.1.090861.3.579.2.50780-55-8936Afkkrnk84977885 2.16.840.1.441056.3.579.2.50847-68-5797Suopqyd13495593 2.16.840.1.976476.3.579.2.55387-97-0950Ycvujcm13695695 2.16.840.1.704146.3.579.2.24557-79-8386Hzbogai80314327 2.16.840.1.572642.3.579.2.37821-55-4206Hpgljzw75438908 2.840.1.460594.3.579.2.30016-40-5655Yriyruo95605348 2..840.1.663798.3.579.2.56675-52-9845Lvmlpyf18322959 2.840.1.688658.3.579.2.718 Social History DateTypeDetailFacilityTobacco smoking status NHISTobacco smoking consumption unknownOhioHealthStart: 13-90-6455Hnf Assigned At BirthNot on fileOhioHealth Start: 04-08-2022 End: 64-16-5684Mvwljwir to SARS-CoV-2 (event)Not sureOhioHealthStart: 04-04-2023 End: 29-07-6891Gxityqs smoking statusNever smoked tobacco (finding)[facility] BellueComment on above:denies use.Tobacco smoking statusNeverGalion Hospital BellevueComment on above:denies use.Start: 06-20-2023 End: 67-86-4757Rlo Assigned At BirthFemalTriHealth Bethesda North Hospitaltart: 07-17-2023 End: 35-32-2066Vnpombl intakeCurrent non-drinker of alcohol (finding)[facility] Software [address] [facility]ENTERStart: 07-17-2023 End: 10-25-6854Nklmvgv intakeBON FoneSenseHas the [facility], gas, oil, or water [employer] threatened to shut off services in your home in past 12MoNoBON FoneSenseHow often to you have a drink containing alcohol?NeverBON FoneSense(I/We) worried whether (my/our) food would run out before (I/we) got money to buy more.Never trueBON FoneSenseStart: 07-28-2024 Health-related behavior (observable entity)Caffeine Use DetailsCVP Physicians Start: 71-32-9771Llxzfdu use and exposureNon-Smoking Tobacco Use DetailsCV PhysiciansStart: 87-94-7852Rpg Assigned At BirthFemaleCVP PhysiciansSexual OrientationElyria Memorial Hospital General Surgery [place] SexFemale (finding)[facility] Hospitaltart: 84-22-8193Vjipcmy use and exposureSmokeless tobacco non-userNOMS Healthcare Start: 10-28-2024 End: 28-06-0004Sjphcbtqt beverage intakeLifetime non-drinker (finding)[facility] HealthcareNEGATED: Highlighted rowStart: 21-15-5531Lfpwoce smoking status NHIS Never smokerCVP PhysiciansNEGATED: Highlighted rowAlcohol intakeAlcohol Use DetailsCV PhysiciansNEGATED: Highlighted rowStart: 99-40-1275Rbtbhmw of tobacco useCurrent non-smokerCV Physicians Clinical Notes 03-30-2022 to 01-09-2025 Note Date & GdaoLykwHvmqnhzp19-08-5553 NotePatient Education Infectious Disease Pharyngitis Pharyngitis is [...] these instructions at home: Medicines ??? Take uoyg-qjk-cqixbaf and prescription medicines only as told by [...] and water are not available, use hand group rooms coordinator. ??? Do not touch your eyes, nose, [...] provider. Document Revised: 06/01/2021 Document Reviewed: 06/01/2021 [employer] Patient Education ? 2023 [employer].[facility] 01-06-2025 NoteSubjective Patient ID: Micheal Brice is a 84 y.o. female who presents for Consult (Incisional Hernia - called for imaging CT abd/pel [facility] on 11/11/2024. (Referral scanned into chart)). [...] the past 36 hours). No follow-ups on file.[facility]10-06-2025 Miscellaneous Notes* Telephone Encounter - Barrett Donahue - 12/22/2024 2:04 PM EDT Pt would like referral to public health service officer Baylee Wyman at [facility] please and thank you! documented in this encounterCameron Regional Medical CenterCvvblnfcyb01-60-3032 Telephone encounter Note* Telephone Encounter - Barrett Donahue - 12/22/2024 2:04 PM EDT Pt would like referral to public health service officersrini Wyman at [facility] please and thank you! [facility] CenterDfwbaftwko32-10-2421 Telephone encounter Note* Telephone Encounter - Barrett Donahue - 12/22/2024 8:55 AM EDT Pt would like to redo the thyroid labs because of an herbal collagen she's on, and [facility] believes it skews the numbers for tsh. Or should she wait the three months or complete again soon? [facility] CenterPnlcrnbcib79-93-7005 Miscellaneous Notes* Telephone Encounter - Barrett Donahue - 12/22/2024 8:55 AM EDT Pt would like to redo the thyroid labs because of an herbal collagen she's on, and [facility] believes it skews the numbers for tsh. Or should she wait the three months or complete again soon? documented in this encounterCameron Regional Medical CenterQwtpgqcgff78-00-2092 History of Present illness Narrative* Gaetano Rosen [...] Daily RT ergocalciferol (Vitamin D2) 1.25 MG (38266 UT) capsule 1 capsule, Weekly lactobacillus (Culturelle) [...] 3 months (around 03/20/2025). documented in this encounterCameron Regional Medical CenterRiprhczdef94-70-5285 NotePatient Education Orthopedics Joint Pain Joint pain [...] bath or shower. General instructions ??? Take dmuz-por-zojwvew and prescription medicines only as told by [...] or make your pain worse. ??? Take ffcd-pcc-fctcunf and prescription medicines only as told by your doctor. This information is not intended to replace advice given to you by your health care provider. Make sure you discuss any questions you have with your health care provider. Document Revised: 06/15/2020 Document Reviewed: 06/16/2020 [employer] Patient Education ? 2023 [employer].[facility] 12-09-2024 History of Present illness Narrative* Cuauhtemoc [...] the morning. ergocalciferol (Vitamin D2) 1.25 MG (23772 UT) capsule Take 1 capsule by mouth [...] will need a thyroidectomy. documented in this encounterCameron Regional Medical CenterSbamwmbxuh25-93-1886 Telephone encounter Note* Telephone Encounter - Cuauhtemoc Jacobo MD - 12/08/2024 10:26 AM EDT F/U tomorrow as scheduled. I have the information I need for the appointment [facility] Medical CenterOukdzvwbtj55-96-7005 Miscellaneous Notes* Telephone Encounter - Cuauhtemoc Jacobo [...] had her go the [facility] day to [facility] for a blood test. They [...] this has been handled. documented in this encounterCameron Regional Medical CenterLfaigrqryl31-24-2368 Telephone encounter Note* Telephone Encounter - Twila Jacobo - 12/08/2024 10:02 AM EDT Pt called in. She is scheduled to see you tomorrow. Her question is she had a FNA done 11/13/24. She then saw Dr Rosen 12/04/24. Pt said she was told Dr Rosen did not have the results of the biopsy and had her go the same day to [place] [facility] for a blood test. They told [...] with the way this has been handled. [facility] [id number] NotePatient Education Orthopedics Ganglion Cyst A ganglion [...] a needle, or hit it. ??? Take yjra-htn-gonyidn and prescription medicines only as told by [...] provider. Document Revised: 05/26/2020 Document Reviewed: 05/26/2020 [employer] Patient Education ? 2023 [employer] 11-19-2024 Hospital Discharge instructions Follow Up Care 11/19/2024 13:05:19 With:OCTAVIA JULIEN, ARPAN Huizar Address: [address] [place] [address] When: only if needed [facility] General Surgery [facility] 09-01-2025 History of Present illness Narrative* Gaetano [...] Daily RT ergocalciferol (Vitamin D2) 1.25 MG (89327 UT) capsule 1 capsule, Weekly lactobacillus (Culturelle) [...] 2 weeks (around 12/18/2024). documented in this encounterCameron Regional Medical [id number] History of Present illness Narrative* Cuauhtemoc Jacobo MD - 10/28/2024 8:40 AM EDT Subjective Patient ID: Micheal Brice is a 84 y.o. female who presents for Thyroid Nodule Pt reports she has been having heat intolerance and part of W/U included a thyroid US. TFTs done, but not provided. US shows a [id number] left inf lobe nodule with microcalcifications. No [...] the morning. ergocalciferol (Vitamin D2) 1.25 MG (31255 UT) capsule Take 1 capsule by mouth [...] and tx of hyperthyroidism documented in this encounterCameron Regional Medical CenterRpphvbdsby12-11-5949 NotePatient Education Endocrinology Thyroid Nodule A thyroid [...] your thyroid nodule or nodules. ??? Take ofeq-mvu-qfudyvz and prescription medicines only as told by [...] treatment. If anodule contin (more content not included)...[facility] NoteGeneral Surgery Office/Clinic Note Chief Complaint consultation for lipoma HPI Staff 84 year old female presents on consultation from Camila Carlos for right upper arm mass. Reports noting mass approximately 10 years ago. Verbalized mass has been stable in size. Denies discomfort or tenderness. US completed at [facility] 04/28/24 with probable lipoma. History of [...] plan excisional biopsy under local anesthesia at [facility], informed consent obtained. 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 Condition: stable impression Pseudophakia: Z96.1. Bilateral. Condition: stable impression Hypertension: I10 [facility] Work Phone: 1(373) 802-421305-12-2025 History of Present illness Narrative* Encounter Date [...] any ocular pain. [facility] Work Phone: 1(282) 174-325705-12-2025 Instructions* Date Instruction Additional Infor pamela Return 6 months DFE/OCT/ Colors Related to Nexdtve age-related mclr degn, bilateral, intermed dry stage Impression/Plan Related to Nexdt ve age-related mclr degn, bilateral, intermed dry stage Impression/Plan Related to Choro idal Nevus OS Impression/Plan Related to Pseud ophakia Impression/Plan Related to Hyper tension [facility] Work Phone: 1(267) 945-343803-28-2025 NoteSubjective: Patient ID: Micheal Brice is a [...] Authorized by: Luis Felipe Lopes MD CPT 75630 - Large Joint Arthrocentesis: Consent given by: [...] expedite correspondence this note was generated by VHT voice recognition software. Some grammatical or spelling errors may occur using the system. [1] There is no problem list on file for this patient. AUTHENTICATED BY LUIS FELIPE LOPES, ON 06/13/2024 10:56:26[facility] 06-13-2024 History of Present illness Narrative* [...] Authorized by: Luis Felipe Lopes MD CPT 52522 - Large Joint Arthrocentesis: Consent given by: [...] expedite correspondence this note was generated by VHT voice recognition software. Somegrammatical or spelling errors may occur using the system. [1] There is no problem list on file for this patient. documented in this [id number] NotePatient Education Cardiovascular Hypertension, Adult Hypertension is [...] Keep all follow-up visits. Medicines ??? Take vwln-gpv-nexoprc and prescription medicines only as told by [...] ??? Hypertension is a (more content not included)...[facility] 08-03-2023 History of Present illness Narrative* Osei Hancock RN - 08/03/2023 7:15 PM EDT Patient escorted off unit and discharged at this time. No additional requests from proposal manager writer. * Chloe Torres RN - 08/03/2023 6:40 PM EDT Investigation Division Lieutenant reviewed discharge instructions with the patient. Reviewed [...] requested to put medicated honey on wound. Investigation Division Lieutenant spoke with Dr. Castañeda and he states to only use iodoform on wound. No medicated honey. Investigation Division Lieutenant notified the patient who is agreeable. * [...] Torres RN - 08/03/2023 11:44 AM EDT Investigation Division Lieutenant arrived to bedside at this time after notification from [facility] that patient had accidentally removed IV. Patient states they accidentally pulled IV out when they were using the restroom. Site assessed, no complications. Care ongoing. * Chloe Torres RN - 08/03/2023 9:01 AM EDT Patient is walking the halls independently at this time. * Radhika Meredith MD - 08/03/2023 6:33 AM EDT Images from the original note were not included. [address] [place], [place], [address] Progress Note Date: 08/03/2023 Patient name: Micheal [...] Foot surgery (Right); Colonoscopy; Tonsillectomy and adenoidectomy; Blanco tooth extraction; Thumb amputation (Right); Finger replantation [...] clubbing or edema DIAGNOSTICS: Laboratory Testing: See [facility] EMR for lab data No [...] sodium chloride 0.9 % 50 mL IVPB (Pjob9Nju) 3,375 mg IntraVENous Q8H Luis Felipe Castañeda [...] this chart was generated using voice recognition [employer] dictation software. Although every effort was made to ensure the accuracy of this automated crocheter hand, some errors in crocheter hand may have occurred. Radhika Meredith MD 08/03/2023 [...] Assessment: (P) Calm Intervention: (P) Prayer (assurance of)/[place], Discussed belief system/voodoo practices/ly, Discussed illness injury and it s [...] and wound care. Critical Care Time: 0 [facility] Advanced Care Planning documentation: [x] I [...] the patient's medical record. [DOES NOT SATISFY [facility] PERFORMANCE] Michelle Cox MD , M.D. [...] Intake/Output Summary (Last 24 hours) at 08/01/2023 1790 Last data filed at 08/01/2023 0249 Gross [...] loss Fluid Accumulation: No significant fluid accumulation Diamond Cleaver Strength: Not Performed Nutrition Assessment: Increased nutrient needs r/t acute injury/trauma AEB surgical site infection. Pt underwent cholecystectomy and hernia repair 2 weeks ago and admitted for infection at surgical site. Pt reported a good appetite and no N/V/D. Active b/s, no edema noted. Pt reported weight prior to surgery 198# and istrying to lose weight. Investigation Division Lieutenant educated pt on importance of maintaining wt [...] Measures: Height: 157.5 cm (5' 2 ) Rolla Body Weight (IBW): 110 lbs (50 kg) [...] Used for Energy Requirements: Current Energy (kcal/day): 3282-2825 (15-18) Weight Used for Protein Requirements: [place] Protein (g/day): 75-90 (1.5-1.8) Method Used for [...] Planning: Too soon to determine Yessy Dyer Network Operations Technician Contact: [phone] * Angela Nguyen RN - 07/31/2023 10:46 PM EDT Patient's son, Noe, called for an update. Update given after confirming with pt that it was ok for proposal manager writer to speak with him. * Angela Nguyen [...] reach. Care ongoing. [facility] in [facility] Hospital Discharge instructions* Discharge Instructions* Chloe [...] most local grocery stores, pharmacies, and chain [employer]-stores. If you have any questions about your [...] for healthcare treatment Living will;Durable power of personal injury attorney for health care No, copy requested [...] OMPHALECTOMY performed by Ramon Olea MD at [facility] OR ABDOMINAL ADHESION SURGERY ABDOMINAL EXPLORATION SURGERY CHOLECYSTECTOMY, LAPAROSCOPIC N/A 06/20/2023 CHOLECYSTECTOMY LAPAROSCOPIC performed by Ramon Olea MD at [facility] OR COLONOSCOPY FINGER REPLANTATION Right index with ori placement and removal FOOT SURGERY Right dislocation STOMACH SURGERY N/A 07/17/2023 SINGLE ANASTOMOSIS OF TRANSVERSE COLON performed by Ramon Olea MD at [facility] OR THUMB AMPUTATION Right partial TONSILLECTOMY AND ADENOIDECTOMY TOTAL KNEE ARTHROPLASTY Right UMBILICAL HERNIA REPAIR N/A 07/17/2023 HERNIA UMBILICAL REPAIR - REVISION UMBILICAL INCISION, Ricther hernia repair with tranverse colon anastomosis performed by Ramon Olea MD at [facility] OR WISDOM TOOTH EXTRACTION Immunization History: [...] MENTAL STATUS:} IV Access: { MALAIKA IV ACCESS:054223116} Nursing Mobility/ADLs: Walking {CHP DME ADLs:033661524} Transfer {P DME ADLs:077311885} Bathing {CHP DME ADLs:514495750} Dressing {CHP DME ADLs:738266785} Toileting {CHP DME ADLs:312564864} Feeding {P DME ADLs:386285365} Ski Tow Operator {CHP DME ADLs:102785367} Med Delivery { MALAIKA MED Delivery:434197172} Wound Care Documentation and Therapy: Incision 07/31/23 [...] Bladder: {YES / NO:} Urinary Catheter: {Urinary Catheter:659355022} Colostomy/Ileostomy/Ileal Conduit: {YES / NO:} Date of Last BM: Intake/Output Summary (Last 24 hours) at 08/03/2023 0448 Last data filed at 08/02/2023 1845 Gross per 24 hour Intake 2816.33 ml Output -- Net 2816.33 ml I/O last 3 completed shifts: In: 2816.3 [P.O.:800; I.V.:1637; IV Piggyback:379.3] Out: - Safety Concerns: { MALAIKA Safety Concerns:676175718} Impairments/Disabilities: { MALAIKA Impairments/Disabilities:654478290} Nutrition Therapy: Current Nutrition Therapy: { MALAIKA Diet List:256062961} Routes of Feeding: {[facility] DME Other Feedings:788644317} Liquids: {Casino Floor Walker liquid thickness:74697} Daily Fluid Restriction: {[facility] DME Yes amt example:324945113} Last Modified Barium Swallow with Video (Video Swallowing Test): {Done Not Done Date:511171461} Treatments at the Time of Hospital Discharge: Respiratory Treatments: Oxygen Therapy: {Therapy; copd oxygen:46160} Ventilator: {[facility] Vent List:247466554} Rehab Therapies: {THERAPEUTIC INTERVENTION:5637504523} Weight Bearing Status/Restrictions: {[facility] Weight Bearin} Other Medical Equipment (for information only, NOT a DME order): {EQUIPMENT:247593654} Other Treatments: Patient's personal belongings (please select all that are sent with patient): {[facility] DME Belongings:698629715} RN SIGNATURE: {Esignature:081953133} CASE MANAGEMENT/SOCIAL WORK SECTION Inpatient Status Date: Readmission Risk Assessment Score: Readmission Risk Risk of Unplanned Readmission: 11 Discharging to Facility/ Agency Name: Address: Phone: Fax: Dialysis Facility (if applicable) Name: Address: Dialysis Schedule: Phone: Fax: Licensed Sales Assistant/Alodize Machine Operator signature: {Esignature:134992212} PHYSICIAN SECTION Prognosis: {Prognosis:6376790575} Condition at Discharge: { Patient Condition:030755354} Rehab Potential (if transferring to Rehab): {Prognosis:6093158680} Recommended Labs or Other Treatments After Discharge: Physician Certification: I certify the above information and transfer of Micheal Brice is necessary for the continuing treatment of the diagnosis listed and that she requires {[facility] for {GREATER/LESS:554317011} 30 days. Update Admission H&P: {CHP DME Changes in HandP:146097384} PHYSICIAN SIGNATURE: * Attachments The following attachments cannot be sent through Care Everywhere. * Abscess: Skin (Malawian) documented in [facility] History of Present illness Narrative* Rosibel Caba RN - 07/18/2023 3:30 PM EDT Patient discharged home at this time. * Chloe Ford RN - 07/18/2023 3:16 PM EDT Reviewed discharge instructions with patient. Patient aware of need to mushroom picker prescription. Reviewed new medication and side [...] muscle mass loss Fluid Accumulation: Mild Extremities Diamond Cleaver Strength: Not Performed Nutrition Assessment: Food and [...] Measures: Height: 157.5 cm (5' 2 ) Rolla Body Weight (IBW): 110 lbs (50 kg) [...] Used for Energy Requirements: Current Energy (kcal/day): 6287-9933 (18-22) Weight Used for Protein Requirements: [place] Protein (g/day): 65-75 (1.3-1.5) Method Used for [...] this time Yusuf Mons[address], AMANUEL Contact: [phone] * Yessy Montes RN - 07/18/2023 6:55 AM EDT Investigation Division Lieutenant to bedside to complete morning assessment. Upon entry to room, pt sitting up in chair, respirations even and unlabored while on room air. Vitals obtained and assessment completed, see flow sheet for details. Pt denies any pain at this time. Pt denies needs from proposal manager writer at this time. Call light in reach. [...] PM EDT [facility] and [facility]. [...] voicemail set up. documented in this [facility] Hospital course Narrative* Ramon Olea MD [...] and follow up. documented in this [facility] Hospital Discharge instructions* Discharge Instructions* Chloe [...] if you have questions or problems @ [phone] * Discharge Instr - Activity* Chloe Ford [...] Care Everywhere. * Abdominal Hernia Repair: Post-op (Malawian) * Surgical Site Infections: Prevention: General Info (Malawian) documented in this encounterB[facility]02-21-[facility]23 History of Present illness Narrative* Luis [...] did advise her we really want to mushroom picker her exercise and activity level. Wewill see her in a year for reevaluation. No orders of the defined types were placed in this encounter. Return in about 1 year (around 05/09/2023) for Annual physical, xrays. Note: To expedite correspondence this note was generated by VHT voice recognition software. Somegrammatical or spelling errors may occur using the system. documented in this [id number] Telephone encounter Note* Telephone Encounter - Niurka Fitzgerald MA - 04/28/2022 3:19 PM EST Patient called with question with whether she should finish keflex , she was instructed to finish antibiotic . [id number] Miscellaneous Notes* Telephone Encounter - Niurka Fitzgerald MA - 04/28/2022 3:19 PM EST Patient called with question with whether she should finish keflex , she was instructed to finish antibiotic . documented in this [id number] History of Present illness Narrative* Luis Felipe [...] expedite correspondence this note was generated by VHT voice recognition software. Somegrammatical or spelling errors may occur using the system. documented in this [id number] NotePROCEDURE: XR ELBOW RT MIN 3 VIEWS [...] authenticated by: MIGEL RAMSEY Date: 2022-03-30 12:47[facility] NotePROCEDURE: XR KNEE RT 4V or > [...] Electronically authenticated by: MIGEL RAMSEY Date: 2022-03-30 12:42[facility]* Clinical Note Date No Information [facility] Work Phone: Discharge summary* Clinical Note Date No Information [facility] Work Phone: Evaluation + Plan note Future Appointments Appointment Date:04/07/2024 01:00:00 PM Scheduled Provider: Location:[facility] Appointment Type:FM Medicare Wellness [facility] Future Appointments Appointment Date:04/13/2025 09:30:00 AM Scheduled Provider: Location:[facility] Appointment Type: Medicare Wellness Subsequent Appointment Date:04/13/2025 10:20:00 AM Scheduled Provider:Camila Max Location:[facility] Appointment Type:[facility] Evaluation + Plan note Future Appointments Appointment Date:10/22/2024 09:20:00 AM Scheduled Provider:KIA SAMUEL CNP Location:[facility] Appointment Type: Open Appointment Date:04/13/2025 09:30:00 AM Scheduled Provider: Location:[facility] Appointment Type: Medicare Wellness Subsequent Appointment Date:04/13/2025 10:20:00 AM Scheduled Provider:Camila Max Location:[facility] Appointment Type:[facility] [place] evaluation + Plan note Future Appointments Appointment Date:04/13/2025 09:30:00 AM Scheduled Provider: Location:[facility] Appointment Type: Medicare Wellness Subsequent Appointment Date:04/13/2025 10:20:00 AM Scheduled Provider:Camila Max Location:[facility] Appointment Type:[facility] [place] evaluation note* Diagnosis History of total right knee replacement- Primary documented in this encounter [facility] note* Diagnosis Incarcerated umbilical hernia- Primary [...] of mild degree documented in this encounter [facility] note* Diagnosis Abscess of postoperative wound of abdominal wall- Primary Post-operative wound abscess Other postoperative infection Failure of outpatient treatment Abscess of umbilicus Cellulitis and abscess of trunk Abscess of postoperative wound of abdominal wall documented in this encounter [facility] note* Diagnosis 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, lumbar region, without neurogenic claudication Primary osteoarthritis of left knee [facility] Diagnosis Thyroid mass- Primary Unspecified disorder of thyroid documented in this encounter [facility] HealthcareEvaluation noteNo assessment information availableMansfield Hospital Work Phone: Evaluation note* Diagnosis Subclinical hyperthyroidism- Primary Thyrotoxicosis without mention of goiter or other cause, without mention of thyrotoxic crisis or storm Thyroid nodule Nontoxic uninodular goiter documented in this encounter [facility] HealthcareEvaluation note* Diagnosis Thyroid mass- Primary Unspecified disorder of thyroid documented in this encounter [facility] HealthcareEvaluation note* Diagnosis Subclinical hyperthyroidism- Primary Thyrotoxicosis without mention of goiter or other cause, without mention of thyrotoxic crisis or storm Thyroid nodule Nontoxic uninodular goiter documented in this encounter [facility] HealthcareHistory and physical note* Clinical Note Date No Information [facility] Work Phone: Hospital course Narrative No data available for this section [facility] Discharge instructions No data available for this section [facility] No data available for this section [facility] note* Clinical Note Date No Information [facility] Work Phone: Resmpy for referral (narrative)* Reason For Referral No Information [facility] Work Phone: Retpvh for referral (narrative)No reason for referral information availableMansfield Hospital Work Phone: Summary Purpose Family History No [...] 1:08 PM 06/02/2015 6:50 PMNameRelationshipHealthcare Agent RelationshipCommunicationClint PutnamChildPrimary Decision Maker* Code StatusDate ActivatedDate InactivatedCommentsFull Code07/31/2023 6:26 PMCode StatusDate ActivatedDate InactivatedCommentsFull Code07/17/2023 12:52 PM07/18/2023 5:45 PMFull Code07/17/2023 8:02 AM07/17/2023 12:52 PMFull Code06/20/2023 7:27 AM 06/22/2023 11:26 AMFull Code06/01/2015 1:08 PM06/02/2015 6:50 PMNameRelationship Healthcare Agent RelationshipCommunicationClint PutnamChildPrimary Decision Maker * * Code StatusDate ActivatedDate InactivatedCommentsFull Code07/31/2023 6:26 PM 08/03/2023 9:37 PMCode StatusDate ActivatedDate InactivatedCommentsFull Code 07/17/2023 12:52 PM07/18/2023 5:45 PMFull Code07/17/2023 8:02 AM07/17/2023 12:52 PM Full Code06/20/2023 7:27 AM06/22/2023 11:26 AMFull Code06/01/2015 1:08 PM06/02/2015 6:50 PMNameRelationshipHealthcare Agent RelationshipCommunicationClint Putnam ChildPrimary Decision Maker* * Directive Yes / No Effective Date File Name No Information TypeDate RecordedPatient RepresentativeExplanationAdvance Directives and Living Will Power of AttorneyAdvance Directives and Living Will Living Will Reason for Referral SpecialtyDiagnoses / ProceduresReferred By ContactReferred To ContactWound Care Diagnoses Abscess of umbilicus Abscess of postoperative wound of abdominal wall Radhika Meredith MD [address] [place] [address] Referral IDStatusReasonStart DateExpiration DateVisits RequestedVisits [id number] [facility]ty Services Required / Scheduling Instructions [facility] QuestionAnswer Reason For External Referral? [...] section and content) DATE CREATED AUTHOR 04/01/2022 [facility] DATE CREATED AUTHOR AUTHOR'S ORGANIZ ATION 06/22/2023 [facility] DATE CREATED AUTHOR AUTHOR'S ORGANIZ ATION 08/07/2023 [facility] DATE CREATED AUTHOR AUTHOR'S ORGANIZ ATION 08/28/2023 [facility] DATE CREATED AUTHOR AUTHOR'S ORGANIZ ATION 04/12/2024 [facility] DATE CREATED AUTHOR AUTHOR'S ORGANIZ ATION 06/18/2024 [facility] DATE CREATED AUTHOR AUTHOR'S ORGANIZ ATION 07/30/2024 [facility] DATE CREATED AUTHOR AUTHOR'S ORGANIZ ATION 10/16/2024 [facility] DATE CREATED AUTHOR AUTHOR'S ORGANIZ ATION 10/18/2024 [facility] DATE CREATED AUTHOR AUTHOR'S ORGANIZ ATION 10/24/2024 [facility] DATE CREATED AUTHOR AUTHOR'S ORGANIZ ATION 10/26/2024 [facility] DATE CREATED AUTHOR AUTHOR'S ORGANIZ ATION 10/29/2024 [facility] DATE CREATED AUTHOR AUTHOR'S ORGANIZ ATION 11/11/2024 [facility] DATE CREATED AUTHOR AUTHOR'S ORGANIZ ATION 11/21/2024 [facility] DATE CREATED AUTHOR AUTHOR'S ORGANIZ ATION 11/23/2024 [facility] DATE CREATED AUTHOR AUTHOR'S ORGANIZ ATION 11/24/2024 [facility] DATE CREATED AUTHOR AUTHOR'S ORGANIZ ATION 12/22/2024 [facility] DATE CREATED AUTHOR AUTHOR'S ORGANIZ ATION 12/25/2024 [facility] DATE CREATED AUTHOR AUTHOR'S ORGANIZ ATION 01/10/2025 [facility] DATE CREATED AUTHOR AUTHOR'S ORGANIZ ATION 01/16/2025 [facility] DATE CREATED AUTHOR AUTHOR'S ORGANIZ ATION 01/21/2025 [facility] Reason for Visit (unrecogniz ed section and content) ReasonCommentsPainFollow-upPatient is c/o right knee pain and swelling , she notes she feel the beginning of the month , she has tried IBU for painReason Onset DateCommentsMedication Ytmixh8004/28/20228140LijsasVnoosptwYqccwb-bbZjenke-eb Patient is here for a f/u for her right knee and issues she was having with cellulitis, patient notes she is done with her antibiotic and notes her right leg feels great.she also wants to know when she can stop wearing her compression socksSpecialtyDiagnoses / ProceduresReferred By ContactReferred To Contact Diagnoses Wound dehiscence Wound dehiscence [T81.30XA] Procedures [place] RPR AA HERNIA RECR < 3 CM REDUCIBLE HERNIA UMBILICAL REPAIR - REVISION UMBILICAL INCISION, POSSIBLE HERNIA REPAIR, POSSIBLE UMBILECTOMY Ramon Olea MD [address] [place] [address] [facility] [address] [place] [address] Referral IDStatusReasonStart DateExpiration DateVisits RequestedVisits [id number]-kh ProblemHernia repaired done July 16. Pt has [...] To ContactEndocrinology Diagnoses Nontoxic multinodular goiter Procedures [place] OFFICE/OUTPATIENT NEW MODERATE MDM 45 MINUTES Camila Carlos NP [address] [place] [address] Phone: tel: Gaetano Rosen MD [address], [address] [place] [address] Phone: tel: fax: Referral IDStatusReasonStart DateExpiration DateVisits RequestedVisits [id number] DateCommentsblood results 12/08/2024ReasonCommentsThyroid ProblemFollow up FNA 11/13/24 ROME Pulido reportReasonCommentsThyroid ProblemFollow-upLAB US 10/24/24 PATHOLOGY 11/13/24 ReasonOnset DateCommentsAdvice Only12/22/2024ReasonOnset DateCommentsReferral 12/22/2024 Care Teams (unrecognized sec tion and content) Team MemberRelationshipSpecialtyStart DateEnd Date No, Physician [facility] PCP - General04/18/22Team MemberRelationshipSpecialtyStart DateEnd Date No, Physician [facility] PCP - General04/18/22Team MemberRelationshipSpecialtyStart DateEnd Date Camila Carlos APRN - NP [address] [place] [address] PCP - General06/20/23Team MemberRelationshipSpecialtyStart DateEnd Date Camila Carlos APRN - NP [address] [place] [address] PCP - General06/20/23Team MemberRelationshipSpecialtyStart DateEnd Date Camila Carlos APRN - IGNITION MECHANIC [address] [place] [address] PCP - General06/20/23Team MemberRelationshipSpecialtyStart DateEnd Date Camila Carlos Zoey, CHILLER TENDER [address] [place] [address] [facility] - [facility]06/13/24 Name Effective Dates (start - stop) Status Members No Information Team MemberRelationshipSpecialtyStart DateEnd Date Camila Carlos NP [address] [place] [phone] Referring [facility]icianD[facility]iny [facility] Center10/28/24Team MemberRelationshipSpecialtyStart DateEnd Date Camila Carlos NP [address] [place] [phone] Referring PhysicianDorminy Medical Center10/28/24 Team Status: Inactive Member Role Status Dates Cuauhtemoc Jacobo Jr, MD Attending Provider Active Start: November 13, 2024 End: November 13, 2024 Team Status: Inactive Member Role Status Dates Alfonso Dudley MD [facility] Attending Provider Active Start: November 19, 2024 End: November 19, 2024Team MemberRelationshipSpecialtyStart DateEnd Date Camila Carlos NP [address] [place] [phone] Referring PhysicianW[facility]10/28/24Team MemberRelationshipSpecialtyStart DateEnd Date Camila Carlos NP [address] [place] [address] Referring PhysicianDorminy Medical Center10/28/24Team MemberRelationshipSpecialtyStgirard DateEnd Date Camila Carlos NP [address] [place] [phone] Referring PhysicianDorminy Medical Center10/28/24Te MemberRelationsFremont HospitalpecialtyStgirard DateEnd Date Camila Carlos NP [address] [place] [address] [phone] Referring PhysicianDorminy Medical Center10/28/24Te MemberRelationsFremont HospitalpecialtyStgirard DateEnd Date Camila Carlos NP [address] [place] [address] [phone] Referring PhysicianDorminy Medical Center10/28/24 Ordered Prescriptions (unrec ognized section and content) [...] 100 mL IVPB (COMPLETED) 2,000 mg, IntraVENous, CAFE HELPER TO O.R., 1 dose, On Sun07/17/23 at 0830, Antimicrobial Indications: Surgical Prophylaxis, Administer within 1 hour prior to incision. Recommend to repeat in 3-4 hours after initial dose if still intra- op., Pre-op (day of surgery) * 1020 (New Bag - Provider: Krys Heart RN - Comment: food services manager to the OR) * 1350 (Stopped - [...] (NoRateChange - Provider: Dee Rodriguez APRN - HOME HEALTH ADMINISTRATOR) * 1145 (Anesthesia Volume Adjustment - Provider: Dee Rodriguez APRN - HOME HEALTH ADMINISTRATOR) * 1255 (Stopped - Provider: Fabi Duran [...] sodium chloride 0.9 % 50 mL IVPB ([id number]) 3,375 mg, IntraVENous, EVERY 8 HOURS, First [...] 2300 (Due - Provider: Horacio Resendiz [facility]) sodium chloride flush 0.9 % injection 5-40 [...] BE BASED ON THE PRIMARY CLINICAL RECORDS. [facility]. provides no warranty or guarantee of the accuracy or completeness of information in this document.
[2025-02-27 08:18] LABS: Hematocrit 38.2 % (36.0-48.0); Hemoglobin 12.2 g/dL (12.0-16.0); Mean Corpuscular HGB Conc 31.9 g/dL (29.9-35.2); Mean Corpuscular Hemoglobin 29.0 pg (26.7-34.0); Mean Corpuscular Volume 90.7 fL (81.0-99.0); Platelet Count 151 10^3/uL (150-450); Red Blood Count 4.21 10^6/uL (4.20-5.40); White Blood Count 12.1 10^3/uL (4.0-11.0)
[2025-02-27 08:21] LABS: Anion Gap 10.6; Blood Urea Nitrogen 11.0 mg/dL (7.0-18.0); Calcium 9.2 mg/dL (8.5-10.1); Carbon Dioxide 30.6 mmol/L (21.0-32.0); Chloride 105 mmol/L (98-107); Estimated GFR (African America >60 (>=60 mL/min/1.73m^2); Estimated GFR (Non-African Ame >60 (>=60 mL/min/1.73m^2); Glucose 92 mg/dL (74-106); Potassium 4.2 mmol/L (3.5-5.1); Sodium 142 mmol/L (136-145)
[2025-02-27 08:25] LABS: INR 1.04; Prothrombin Time 10.9 sec (9.0-11.6)
[2025-02-27 12:00] LABS: Atypical Lymphocytes % Manual 8.0 %; Atypical Lymphocytes Abs Man 0.96; Basophils Abs Manual 0.12 10^3/uL (0.00-0.10); Basophils Percent Manual 1.0 % (0.2-2.0); Eosinophils Absolute Manual 0.00 10^3/uL (0.00-0.70); Eosinophils Percent Manual 0.0 % (0.9-7.0); Lymphocytes Absolute Manual 7.50 10^3/uL (1.20-3.80); Lymphocytes Percent Manual 62.0 % (20.5-60.0); Monocytes Absolute Manual 0.36 10^3/uL (0.30-0.80); Monocytes Percent Manual 3.0 % (1.7-12.0); Segmented Neut Absolute Manual 3.14 10^3/uL (1.4-6.5); Segmented Neutrophils % Manual 26.0 (43.0-75.0)
== END 2025-02-27 07:44 | disposition home or self-care (01) ==
LOC: LAB 07:47
DX: K43.2 Incisional hernia without obstruction or gangrene (principal); R22.2 Localized swelling, mass and lump, trunk; R23.3 Spontaneous ecchymoses
CPT/HCPCS: 36415; 80048; 85007; 85027; 85610; 87081

== ENCOUNTER 2025-03-12 01:17 | Emergency (ER) | payer MEDICARE, OTHER, SELFPAY ==
--- OUTSIDE RECORDS SUMMARY | 2025-01-06 13:45 | XMS_ITS | Encounter Summary ---
Author Organization The [facility] Address [address] [facility] [address] [address] Care Team Providers Care Insurance Actuary Name Role Phone Jessie Carlos INTERMEDIATE FRAME TENDER-C Primary Care Provider [phone] Reason for Referral * Consultation (Routine) - Pending ReviewSpecialtyDiagnoses / ProceduresReferred By ContactReferred To ContactCardiology Diagnoses Incisional hernia, without obstruction or gangrene Preop cardiovascular exam Procedures IN OFFICE/OUTPATIENT [facility] MDM 60 MINUTES Manfred Perdomo MD [address] [place] [address] [address] Phone: tel: fax: [facility] [address] [place] [address] Phone: tel: fax: Referral IDStatusReasonStart DateExpiration DateVisits RequestedVisits [id number] Review Specialty Services Required * (Routine) - Pending ReviewSpecialtyDiagnoses / ProceduresReferred By Contact Referred To Contact Diagnoses Incisional hernia, without obstruction or gangrene Abdominal wall mass Procedures ECG 12 lead Manfred Perdomo MD [facility] [place] [address] [address] Phone: tel: fax: Referral IDStatusReasonStart DateExpiration DateVisits RequestedVisits [id number] Reason for Visit * ReasonCommentsConsultIncisional Hernia - called for imaging CT abd/pel Gilliam Tello on 11/11/2024. (Referral scanned into chart) Encounter Details DateTypeDepartmentCare Team (Latest Contact Info)Guswjrtrgjf09/21/2025 2:45 PM EDTConsult [facility] [address] [place] [address] Manfred Perdomo MD [address] [facility] [address] [address] Incisional hernia, without obstruction or gangrene (Primary Dx); Abdominal wall mass; Easy bruising; Preop cardiovascular exam Social History Tobacco UseTypesPacks/DayYears UsedDateSmoking Tobacco: NeverSmokeless Tobacco: Never Tobacco Cessation:Counseling Given: Not Answered Alcohol UseStandard Drinks/WeekCommentsNever0 (1 standard drink = 0.6 oz pure alcohol)Humiliation, Afraid, Rape, and Kick questionnaireAnswerDate Recorded Within the last year, have you been afraid of your partner or ex-partner?No 01/06/2025Emotionally AbusedNot on file01/06/2025Physically AbusedNot on file 01/06/2025Sexually AbusedNot on file01/06/2025PHQ-2AnswerDate RecordedPatient Health Questionnaire-2 Olmeb789UT Safety & EnvironmentAnswerDate RecordedFear of Current or Ex-PartnerNot on file05/11/2023Emotionally AbusedNot on file05/11/2023hysically AbusedNot on file05/11/2023Sexually AbusedNot on file05/11/2023hysically or Sexually AbusedNot on file05/11/2023Comments NoSex and Gender InformationValueDate RecordedSex Assigned at BirthFemale 01/06/2025 2:00 PM EDTLegal CnlVnfkny79/15/2023 12:50 PM EDTGender Identity Pvxdwi3201/06/2025 2:00 PM EDTSexual OrientationHeterosexual or Lvmiblju99/21/2025 2:00 PM EDTdocumented as of this encounter Last Filed Vital Signs Vital SignReadingTime TakenCommentsBlood Shfitoeb609/8201/06/2025 2:52 PM EDT Jkgai434301/06/2025 2:52 PM YGBAqokaqrjbeu53.6 ??C (97.9 ??F)01/06/2025 2:52 PM EDTRespiratory Gdyp6684 2:52 PM EDTOxygen Cylhijmuoc03%01/06/2025 2:52 PM EDTInhaled Oxygen Concentration--Zxueva26.5 kg (184 lb)01/06/2025 2:52 PM EDT Height--Body Mass Index33.65011/08/2022 10:53 AM EDTdocumented in this encounter Functional Status documented as of this encounter Progress Notes * Manfred Perdomo MD - 01/06/2025 2:45 PM EDT Images from the original note were not included. Subjective Patient ID: Elisa Wills is a 84 y.o. female who presents for Consult (Incisional Hernia - called for imaging CT abd/pel Mane Javed on 11/11/2024. (Referral scanned into chart)). HPI 64 years old white female is visiting for incisional hernia. The patient had cholecystectomy 1 yearago through a transumbilical incision. Subsequently she developed incisional hernia. Denies of nausea, vomiting, abdominal pain. Review of Systems Constitutional: Positive for fatigue. HENT: Positive for postnasal drip, rhinorrhea, sinus pain and sore throat. Eyes: Negative. Respiratory: Positive for cough. Cardiovascular: Negative. Gastrointestinal: Positive for constipation. Endocrine: Negative. Genitourinary: Negative. Musculoskeletal: Positive for arthralgias. Skin: Negative. Allergic/Immunologic: Negative. Neurological: Negative. Hematological: Bruises/bleeds easily. Objective Visit Vitals BP (!) 182/82 (BP Location: Left arm, Patient Position: Sitting, BP Cuff Size: Adult) Pulse 64 Temp 36.6 ??C (97.9 ??F) (Temporal) Resp 15 Physical Exam HENT: Head: Atraumatic. Cardiovascular: Rate and Rhythm: Normal rate. Pulmonary: Effort: Pulmonary effort is normal. Abdominal: General: Abdomen is flat. Palpations: Abdomen is soft. Hernia: A hernia is present. Hernia is present in the ventral area. Musculoskeletal: Cervical back: Neck supple. Neurological: Mental Status: She is alert. CT scan showed periumbilical fascial defect 6 cm x 7 cm containing transverse colon Assessment/Plan Incisional hernia Robotic incisional hernia repair with mesh was offered to the patient, informed consent was obtained. No diagnosis found. No orders of the defined types were placed in this encounter. No results found for this or any previous visit (from the past 36 hours). No follow-ups on file. documented in this encounter Miscellaneous Notes * Addendum Note - Gretchen Deal MA - 01/06/2025 2:45 PM EDTAddended by: GRETCHEN DEAL on: 01/08/2025 12:21 PM Modules accepted: Orders * Addendum Note - Gretchen Deal MA - 01/06/2025 2:45 PM EDTAddended by: GRETCHEN DEAL on: 02/26/2025 10:57 AM Modules accepted: Orders documented in this encounter Plan of Treatment DateTypeDepartmentCare Team (Latest Contact Info)Mtgeijqmtcm60/31/2025 10:15 AM ESTOffice Visit [facility] Surgery Clinic [address] [place] [address] Manfred Perdomo MD [address] [address] 03/30/2025 11:00 AM ESTOffice Visit [facility] [address] [place] [facility] [place] [address] Dave Johnson MD [address] [place] [address] NameTypePriorityAssociated DiagnosesOrder ScheduleCBC and differentialLabRoutine Incisional hernia, without obstruction or gangrene Abdominal wall mass Expected: 01/06/2025 (Approximate), Expires: 01/06/2026asic metabolic panelLab Routine Incisional hernia, without obstruction or gangrene Abdominal wall mass Expected: 01/06/2025 (Approximate), Expires: 01/06/2026Protime-INRLabRoutine Incisional hernia, without obstruction or gangrene Abdominal wall mass Easy bruising Expected: 01/06/2025 (Approximate), Expires: 01/06/2026MRSA/MSSA DNA Nasal MicrobiologyRoutine Incisional hernia, without obstruction or gangrene Abdominal wall mass Ordered: 02/26/2025NameTypePriorityAssociated DiagnosesOrder ScheduleAmbulatory referral to CardiologyOutpatient ReferralRoutine Incisional hernia, without obstruction or gangrene Preop cardiovascular exam Expected: 01/08/2025 (Approximate), Expires: 07/09/2025documented as of this encounter Results * ECG 12 lead (01/06/2025 4:33 PM EDT)ComponentValueRef RangeTest MethodAnalysis TimePerformed AtPathologist SignatureVentricular Elvc10JGBBI MUSEAtrial Rate57 BPMGE MUSEPR Fklfcfcw332xzOP MUSEQRS PFWVSTZZ40ioFD MUSEQT Mvmbtewr126bvEN MUSEQTC CALCULATION(BAZETT)414msGE MUSEP Scvf91eewqzjdSX MUSER-Mxdm41uzihjwyMT MUSET Wave Gmdi48oblpviuMG MUSESpecimen (Source)Anatomical Location / LateralityCollection Method / VolumeCollection TimeReceived Time01/06/2025 4:09 PM EDT1 8:00 PM EDT Impressions GE MUSE - 01/06/2025 8:00 PM EDT Sinus bradycardia Otherwise normal ECG No previous ECGs available Confirmed by Yoan Wiley ([id number]) on 01/06/2025 8:00:50 PM Narrative Procedure Note Yoan Wiley MD - 01/06/2025 IMPRESSION: Sinus bradycardia Otherwise normal ECG No previous ECGs available Confirmed by Yoan Wiley ([id number]) on 01/06/2025 8:00:50 PM Authorizing ProviderResult TypeResult StatusManfred Perdomo MDECMelvi ORDERABLESFinal ResultPerforming OrganizationAddressCity/State/ZIP CodePhone Number GE MUSE documented in this encounter Visit Diagnoses Diagnosis Incisional hernia, without obstruction or gangrene- Primary Abdominal wall mass Abdominal or pelvic swelling, mass or lump, unspecified site Easy bruising Other symptoms involving skin and integumentary tissues Preop cardiovascular exam Pre-operative cardiovascular examination Incisional hernia, without obstruction or gangrene Abdominal wall mass Abdominal or pelvic swelling, mass or lump, unspecified site documented in this encounter Care Teams Team MemberRelationshipSpecialtyStart DateEnd Date Jessie Carlos FNP-C [address] [place] [address] PCP - GeneralNurse Keccqmcprset93/21/25documented as of this encounter
--- OUTSIDE RECORDS SUMMARY | 2025-03-04 23:59 | XMS_ITS | Continuity of Care Document ---
Author Organization [facility] Address [address] [place] [id number] Care Team Providers Care Manager Hiv Name Role Phone Jessie Carlos Primary Care Physician [phone] Encounter FT_AMBFIN [id number] Date(s): 03/04/25 - 03/04/25 [facility] [address] [place] [id number]- Encounter Diagnosis Pre-op exam(Discharge Diagnosis) - 03/04/25 BMI 33.0-33.9,adult(Discharge Diagnosis) - 03/04/25 Nonsmoker(Discharge Diagnosis) - 03/04/25 Discharge Disposition: Home (Routine DC) Attending Physician: Jessie Max Encounter Type: Clinic Allergies, Adverse Reactions, Alerts No Known Allergies Treatment Plan Future Appointments Appointment Date:04/13/2025 09:30:00 AM Scheduled Provider: Location:[facility] Appointment Type: Medicare Wellness Subsequent Appointment Date:04/13/2025 10:20:00 AM Scheduled Provider:Jessie Max Location:[facility] Appointment Type: Open Functional Status 03/04/25 Symptomatic After Exposure to ContagionNoSymptomatic After Travel High-Risk Area NoDroplet, Contact Isolation VerificationN/AAirborne,Contact Isolation VerificationN/A Functional Status Assessment AssessmentAssessment ComponentResultEffective DateFall risk total [Fatima Fall Scale]Ambulatory aid [Fatima Fall Scale]None, bedrest, wheelchair, nurse03/04/25Intravenous apparatus [Fatima Fall Scale]No03/04/25Gait [Fatima Fall Scale]Normal, bedrest, qkccamxw01/17/25History of falling; immediate or within 3 months [Fatima Fall Scale]Yes03/04/25Mental status [Ftaima Fall Scale]Oriented to own vxqzvuk88/17/25Secondary diagnosis is tqfqtglOv06/17/25 Immunizations Given and Recorded VaccineDateStatusRefusal Reasondiphtheria/pertussis, acel/tetanus adult08/07/13 Recordedtetanus-diphtheria toxoids03/19/04Recorded Not Given VaccineDateStatusRefusal Reasoninfluenza virus vaccine, inactivated04/10/24Not GivenParent Or Guardian Refuses Medications Acidophilus Probiotic Blend 1 cap(s), Oral, BID, Refill(s) 0 Start Date: 06/26/23 Status: Ordered Medication Dispense Status: Completed Total Allowed Fills: 1 Fills Dispensed: 0 calcium (as carbonate) 600 mg oral tablet 1,200 mg = 2 tab(s), Oral, Daily, X 90 day(s), # 180 tab(s), Refills(s) 3, [facility]: [id number], 158, cm, 04/24/24 14:32:00 EST, Height/Length Dosing, 88.3, kg, 04/24/24 14:32:00 EST, Weight Dosing Start Date: 05/01/24 Stop Date: 04/26/25 Status: Ordered Medication Dispense Status: Completed Quantity: 180.0 Unit: tab(s) Total Allowed Fills: 4 Fills Dispensed: 0 Vitamin D 50,000 intl units (1.25 mg) oral capsule 50,000 International_Unit = 1 cap(s), Oral, qWeek, # 12 cap(s), Refills(s) 4, Pharmacy: [facility] #[id number], 158, cm, 03/04/25 13:27:00 EST, Height/Length Dosing, 84.3, kg, 03/04/25 13:27:00 EST, Weight Dosing Start Date: 03/04/25 Status: Ordered Medication Dispense Status: Completed Quantity: 12.0 Unit: cap(s) Total Allowed Fills: 5 Fills Dispensed: 0 Problem List ConditionConfirmationCourseEffective DatesStatusHealth StatusInformantBMI 33.0-33.9,adultConfirmedActiveSkin texture changesConfirmedActiveExcessive sweatingConfirmedActiveFlank painConfirmedActiveGanglion cyst of dorsum of right wristConfirmedActiveWart of handConfirmedActiveS/P cholecystectomyConfirmed ActiveHypercholesteremiaConfirmedActiveHypertensionConfirmedActive HyperthyroidismConfirmedActiveLipoma of backConfirmedActiveLipoma of upper arm ConfirmedActiveLipoma of armConfirmedActiveHair thinningConfirmedActiveMass of soft tissue of upper armConfirmedActiveNonsmokerConfirmedActiveObesity (BMI 30.0-34.9)ConfirmedActiveObesity due to excess caloriesConfirmedActivePre-op examConfirmedActiveRecurrent ventral incisional herniaConfirmedActive Procedures ProcedureDateRelated DiagnosisBody SiteStatusExcision of lipoma11/19/24Completed [id number] of thumbCompletedArthroplasty of right yxhdXfajjzociXbeoqxym0TshqyooitOlltxl fracture of ankleCompletedExcision of lesion of skinCompletedLysis of adhesionsCompletedRepair of incisional hernia MgzxrcnarXawjomm4Lpaimanwx 1bilateral 200570 Vital Signs Most recent to oldest [Reference Range]:1Peripheral Pulse Rate [60-100 bpm]51 bpm *LOW* (03/04/25 1:24 PM)Blood Pressure [89-139/59-89 mmHg]146/88mmHg *HI* (03/04/25 1:24 PM)Blood Pressure LocationLeft arm (03/04/25 1:24 PM)SpO2 [89 %]92 % (03/04/25 1:24 PM) Social History Social History TypeResponseSmoking StatusNever (less than 100 in lifetime);Never ; Concerns about tobacco use in household: No; Smoking Cessation Yes1 entered on: 03/04/25Birth SexFemaleSex RepresentationFemale (finding) 1denies use. Patient Care team information Care Team Personnel Name: Steve Nair Position: FT Contractor Field Hauling - Self Assign Member Role: Paving Stone Installer Name: Jessie Max Position: FT Ambulatory - Primary Care - LOC Member Role: Primary Care Physician Address: [address] [place] [address]- Telecom: Care Team Related Persons Name: KATHERINE CESPEDES Name: KATHERINE CESPEDES Name: KATHERINE CESPEDES Name: KATHERINE CESPEDES Name: KATHERINE CESPEDES Name: KATHERINE CESPEDES Name: KATHERINE CESPEDES Insurance Providers Guarantor name: Health Plan Information #: 1 Payer: MEDICARE Payer Identifier: [id number] Member Number: [id number] Group Number: [id number] Subscriber Identifier: [id number] Relationship to Subscriber: self Coverage Type: MEDICARE Coverage Verification Date: NA Telecom: [phone] Address: [facility] [address] Health Plan Information #: 2 Payer: [employer]IG[employer] Payer Identifier: [id number] Member Number: [id number] Group Number: [id number] Subscriber Identifier: NA Relationship to Subscriber: self Coverage Type: PRIVATE HEALTH INSURANCE Coverage Verification Date: Telecom: Address: [address] [address] [place] [address]
--- OUTSIDE RECORDS SUMMARY | 2025-03-09 05:57 | XMS_ITS | Encounter Summary ---
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 Primary Care Provider [phone] Reason for Visit * Auth/Cert (Routine)SpecialtyDiagnoses / ProceduresReferred By ContactReferred To Contact Diagnoses Incisional hernia, without obstruction or gangrene Abdominal wall mass Incisional hernia, without obstruction or gangrene [K43.2] Abdominal wall mass [R22.2] Procedures UT RPR AA HERNIA 1ST < 3 CM REDUCIBLE UT EXC TUMOR SOFT TISSUE ABDL WALL SUBFASCIAL 5CM/> ROBOTIC INCISIONAL HERNIA REPAIR WITH MESH EXCISION OF ABDOMINAL WALL MASS Manfred Perdomo MD [address] [address] Phone: tel: fax: [facility] Main Operating Room [address] [place] [address] Phone: tel: fax: Referral IDStatusReasonStart DateExpiration DateVisits RequestedVisits [id number] Encounter Details DateTypeDepartmentCare Team (Latest Contact Info)Ehbadkwacnf24/22/2025 5:57 AM EST - 03/09/2025 1:27 PM ESTHospital Encounter [facility] Main Operating Room [address] [place] [address] Manfred Perdomo MD [address] [facility] [place] [address] [place] [address] Post-op pain (Primary Dx); Incisional hernia, without obstruction or gangrene; Abdominal wall mass Discharge Disposition: Home or Self Care () Social History Tobacco UseTypesPacks/DayYears UsedDateSmoking Tobacco: NeverSmokeless Tobacco: NeverAlcohol UseStandard Drinks/WeekCommentsNever0 (1 standard drink = 0.6 oz pure alcohol)Humiliation, Afraid, Rape, and Kick questionnaireAnswerDate RecordedWithin the last year, have you been afraid of your partner or ex-partner?No01/06/2025Emotionally AbusedNot on file01/06/2025Physically Abused Not on file01/06/2025Sexually AbusedNot on file01/06/2025PHQ-2AnswerDate RecordedPatient Health Questionnaire-2 Ucrjd358UT Safety & Environment AnswerDate RecordedFear of Current or Ex-PartnerNot on file05/11/2023Emotionally AbusedNot on file05/11/2023hysically AbusedNot on file05/11/2023Sexually AbusedNot on file05/11/2023hysically or Sexually AbusedNot on file05/11/2023 CommentsNoSex and Gender InformationValueDate RecordedSex Assigned at AoasvVhzaei24/21/2025 2:00 PM EDTLegal ClgUdtwfl01/15/2023 12:50 PM EDTGender TctxupdkZintsc68/21/2025 2:00 PM EDTSexual OrientationHeterosexual or Straight 01/06/2025 2:00 PM EDTdocumented as of this encounter Last Filed Vital Signs Vital SignReadingTime TakenCommentsBlood Xkhrpocv510/6803/09/2025 12:50 PM EST Ygquf901503/09/2025 12:50 PM TMHTcmictavxtd08.5 ??C (97.7 ??F)03/09/2025 12:50 PM ESTRespiratory Cfuk337505/10/2024 12:50 PM ESTOxygen Xnopzknjvz68%03/09/2025 12:50 PM ESTInhaled Oxygen Concentration--Gqlwxi62.3 kg (181 lb 7 oz)03/09/2025 6:50 AM YUXWtppja147.4 cm (5')03/09/2025 6:50 AM ESTBody Mass Index35.43105/10/2024 6:50 AM ESTdocumented in this encounter Medications at Time of Discharge MedicationSigDispense QuantityRefillsLast FilledStart DateEnd Date amLODIPine (Norvasc) 5 mg tablet Take by mouth in the morning. ASHWAGANDHA EXTRACT ORAL Take 1 tablet by mouth in the morning. calcium carbonate 600 mg calcium (1,500 mg) tablet Take 1,200 mg by mouth in the morning. cyanocobalamin, vitamin B-12, 1,000 mcg/mL drops Take 1 tablet by mouth in the morning. docusate sodium (Colace) 100 mg capsule Indications:Post-op painTake 1 capsule (100 mg) by mouth at bedtime. 30 capsule / ergocalciferol (Vitamin D-2) 1.25 MG (15288 Units) capsule Take 1 capsule by mouth 1 (one) time per week. garlic 1,000 mg capsule Take 6,000 mg by mouth 1 (one) time each day. HYDROcodone-acetaminophen (Lefor) 5-325 mg tablet Indications:Post-op painTake 1 tablet by mouth every 6 (six) hours if needed for severe pain (8-10 pain score) for up to 5 days. 14 tablet omega-3 acid ethyl esters (Lovaza) 1 gram capsule Take 2 g by mouth twice a day.documented as of this encounter H&P Notes * Deepa Hernandez MD - 03/09/2025 6:27 AM EST History Of Present Illness Elisa Wills is a 85 y.o. female with PMH of htn, hyperthyroidism, and cholecystectomy, right finger surgery, bowel resection for bowel obstruction. She has an incisional hernia for which she would like repaired. She does not take blood thinner but had a DVT after knee surgery before. Past Medical History Medical History[1] Surgical History Surgical History[2] Social History Social History Socioeconomic History Marital status: Unknown Spouse name: Not on file Number of children: Not on file Years of education: Not on file Highest education level: Not on file Occupational History Not on file Tobacco Use Smoking status: Never Smokeless tobacco: Never Substance and Sexual Activity Alcohol use: Never Drug use: Never Sexual activity: Defer Other Topics Concern Not on file Social History Narrative Not on file Social Drivers of Health Financial Resource Strain: Not on file Food Insecurity: No Food Insecurity (07/31/2023) Received from [facility] Hunger Vital Sign Within the past 12 months, you worried that your food would run out before you got the money to buymore.: Never true Within the past 12 months, the food you bought just didn't last and you didn't have money to get more.: Never true Transportation Needs: No Transportation Needs (07/31/2023) Received from [facility] PRAPARE - Transportation Lack of Transportation (Medical): No Lack of Transportation (Non-Medical): No Physical Activity: Not on file Stress: Not on file Social Connections: Not on file Intimate Partner Violence: Unknown (01/06/2025) Humiliation, Afraid, Rape, and Kick questionnaire Fear of Current or Ex-Partner: No Emotionally Abused: Not on file Physically Abused: Not on file Sexually Abused: Not on file Housing Stability: Low Risk (07/31/2023) Received from [facility] Housing Stability Vital Sign Unable to Pay for Housing in the Last Year: No Number of Places Lived in the Last Year: 1 Unstable Housing in the Last Year: No Family History Family History[3] Allergies Allergies[4] Medications Prescriptions Prior to Admission[5] Review of Systems ROS General: No fever, chills Eyes: No headaches, vision changes, blurry vision ENT: No sore throat, cough or runny nose Neuro: No focal deficits Neck: No lymphadenopathy, no pain CV: No chest pain, palpitations Lungs: No shortness of breath, no wheezing Abd: no abdominal pain. No nausea, vomiting, diarrhea, melena, hematochezia. : Denies any dysuria, hematuria Skin: Denies any new rashes/lesions/ulcerations Endo: No heat or cold intolerance MS: Denies any myalgias, gross deformities Psych: No depression, no anxiety Heme: No easy bruising Lymph: Denies any lymphadenopathy Last Recorded Vitals Visit Vitals OB Status Postmenopausal Smoking Status Never Physical Exam Physical Exam General Appearance: awake, alert; well-developed, well-nourished; no acute distress. HEENT: atraumatic, normocephalic; EOMI, no scleral icterus; trachea midline, neck supple. Pulmonary: unlabored breathing, saturating >93% on room air. Cardiac: regular rate and rhythm Abdomen: soft, non-tender, non-distended; no rebound tenderness or guarding; reducible large incisonal hernia Neuro: alert and oriented x3; no focal neurologic deficits. Extremity: full range of motion, no peripheral edema. Skin: warm, dry; no rashes or lesions. Relevant Lab Results No results found for: NA , K , CL , CO2 , BUN , CREATININE , GLUCOSE , CALCIUM , ANIONGAP , EGFR , BCR Relevant Imaging Results ECG 12 lead Sinus bradycardia Otherwise normal ECG No previous ECGs available Confirmed by Yoan Wiley ([id number]) on 01/06/2025 8:00:50 PM Assessment & Plan Incisional hernia, without obstruction or gangrene Abdominal wall mass Orders from past 72 hours: Full Code; Standing ceFAZolin in dextrose (iso-os) (Ancef) IVPB 2 g Elisa Wills is an 85 yo f presenting with incisional hernia and abdominal mass. - OR today for Robotic incisional hernia repair with mesh and excision of abdominal wall mass - Will obtain consent - Ancef for preop abx [1] Past Medical History: Diagnosis Date Chest pain Disease of thyroid gland Hypertension Hyperthyroidism Osteoarthritis [2] Past Surgical History: Procedure Laterality Date ANKLE SURGERY BOWEL RESECTION FOR BOWEL OBSTRUCTION CHOLECYSTECTOMY COLONOSCOPY FINGER SURGERY Right JOINT REPLACEMENT KNEE ARTHROPLASTY Right 2008 OTHER SURGICAL HISTORY PARTIAL BOWEL RESECTION SURGERY OTHER SURGICAL HISTORY MOLE REMOVAL FROM NOSE REPLACEMENT TOTAL KNEE ONCOLOGIC [3] Family History Problem Relation Name Age of Onset Coronary artery disease Mother Other (heart valve disease) Mother [4] No Known Allergies [5] Medications Prior to Admission Medication Sig Dispense Refill Last Dose/Taking amLODIPine (Norvasc) 5 mg tablet Take by mouth in the morning. ASHWAGANDHA EXTRACT ORAL Take 1 tablet by mouth in the morning. calcium carbonate 600 mg calcium (1,500 mg) tablet Take 1,200 mg by mouth in the morning. cyanocobalamin, vitamin B-12, 1,000 mcg/mL drops Take 1 tablet by mouth in the morning. ergocalciferol (Vitamin D-2) 1.25 MG (06955 Units) capsule Take 1 capsule by mouth 1 (one) time perweek. garlic 1,000 mg capsule Take 6,000 mg by mouth 1 (one) time each day. omega-3 acid ethyl esters (Lovaza) 1 gram capsule Take 2 g by mouth twice a day. Cosigned by Manfred Perdomo MD at 03/09/2025 7:22 AM EST Associated attestation - Manfred Perdomo MD - 03/09/2025 7:22 AM EST Attending Physician Statement I have discussed the case, including pertinent history and exam findings with Dr. Hernandez, surgical processor and have personally seen the patient. I agree with the assessment, plan and orders as documented. [phone] pager [phone] phone documented in this encounter Nursing Notes * Sarai Daley RN - 03/09/2025 6:58 AM EST Patient arrived to unit with a steady gait documented in this encounter Miscellaneous Notes * Op Note - Manfred Perdomo MD - 03/09/2025 7:41 AM EST ROBOTIC INCISIONAL HERNIA REPAIR WITH MESH, EXCISION OF ABDOMINAL WALL MASS Operative Note Date: 03/09/2025 Location: [facility] OR Name: Elisa Wills, : 1940, Diagnosis Pre-op Diagnosis * Incisional hernia, without obstruction or gangrene [K43.2] * Abdominal wall mass [R22.2] Post-op Diagnosis * Incisional hernia, without obstruction or gangrene [K43.2] * Abdominal wall mass [R22.2] Procedures Robotic incisional hernia repair with mesh, right side transversalis abdominis release Surgeons Primary: Manfred Perdomo MD Assisting: Deepa Hernandez MD Resident - Assisting: Elena Bertrand MD Procedure Summary Anesthesia: General ASA: II Estimated Blood Loss: Minimal Total IV Fluids: 1500 mL Drains: [REMOVED] Urethral Catheter 16 Fr. (Removed) Implants Type Name Action Serial No. Mesh MESH,SURCIGAL,PROGRIP,[id number] - [id number] Implanted Staff: Programs Director: Charlotte Boyer RN; Gala Marquez RN Relief Programs Director: Robin Hoff RN; Monica Jaffe RN Relief Scrub: Tamela Valenzuela CST Scrub Person: Tamela Valenzuela CST; Amalia Ernst Programs Director: Montana Niño RN Indications: Elisa Wills is an 85 y.o. female who is having surgery for Incisional hernia, without obstruction or gangrene [K43.2] Abdominal wall mass [R22.2]. Robotic incisional hernia repair with mesh was offered to the patient, informed consent was obtained. Procedure Details: The patient was seen in the preoperative area. The risks, benefits, complications, treatment options, non-operative alternatives, expected recovery and outcomes were discussed with the patient. The possibilities of reaction to medication, pulmonary aspiration, injury to surrounding structures, bleeding, recurrent infection, the need for additional procedures, failure to diagnose a condition, and creating a complication requiring transfusion or operation were discussed with the patient. The patient concurred with the proposed plan, giving informed consent. The site of surgery was properly noted/marked if necessary per policy. The patient has been actively warmed in preoperative area. Preopera tive antibiotics have been ordered and given within 1 hours of incision. Venous thrombosis prophylaxis have been ordered including bilateral sequential compression devices The patient was brought to the operative room, laid on the open table in supine position. General endotracheal anesthesia was initiated. Acosta catheter was inserted. Patient's abdomen was prepped anddraped in usual sterile fashion and covered with Ioban. Timeout was completed. Subxiphoid Optiview 5 mm trocar was inserted under direct visualization. CO2 insufflation was started. Under direct visualization, left subcostal 8 mm trocar, left flank 8 mm trocar and left lower quadrant 8 mm trocar was inserted. Patient was converted to Trendelenburg position and tilt towards right. The da Michelle Xi was docked. Middle trocar was used for camera, subcostal trocar was used for monopolar scissor, leftlower quadrant trocar was used for fenestrated bipolar grasper. Extensive lysis of adhesion was performed to take down the midline adhesion. A large midline fascial defect was confirmed. The size is 10 cm x 8 cm. Left posterior rectus sheath longitudinal incision was made with monopolar scissor 15 cm long. Posterior rectus sheath was from rectus muscle and on the edge of the fascial defect. Right side posterior rectus sheath also from rectus muscle. At this point the fascialdefect was closed with running oh V-Loc permanent running suture. A ruler was placed into peritoneal cavity. The measurement of prerectus sheath space is 15 cm x 15 cm. A 15 cm x 50 cm ProGrip mesh was obtained, rinsed by gentamicin solution, inserted through arrhythmia trocar into peritoneal cavity then placed into inspection, rectus sheath space to cover the fascial defect. Left side posterior rectus sheath incision was closed with 2 oh V-Loc running suture. During the closure of posterior rectus sheath on fascial defect with difficulty because of tension. The decision was made to perform right side transversalis abdominis release. Right side transversalis abdominis was divided with monopolar scissor. This release enable the posterior rectus sheath defect closure with 2 oh V-Loc runningsuture. Without active bleeding, the hemostasis is satisfied. All needles was removed. Da Michelle wasundocked. The CO2 was desufflated. All trocars were removed. The skin was closed with 4-0 Vicryl subcuticular suture. Dermabond was applied. Abdominal binder was applied. The operation was completed without complication, I was present for the entire surgery, minimal blood loss. The instrument count, needle count and sponge count were correct at end of surgery. Carefully inspection, without other abdominal wall mass was found. Findings: Midline fascial defect is 10 cm x 8 cm. Omentum adhesion into the hernia defect. The hernia was repaired by right transversalis abdominis release and ProGrip 15 cm x 15 cm Mesh. Complications: None; patient tolerated the procedure well. Disposition: PACU - hemodynamically stable. Condition: stable Manfred Perdomo * Assessment & Plan Note - Deepa Hernandez MD - 03/09/2025 6:33 AM ESTAssociated Problem(s): Incisional hernia, without obstruction or gangrene * Assessment & Plan Note - Deepa Hernandez MD - 03/09/2025 6:33 AM ESTAssociated Problem(s): Abdominal wall mass Orders from past 72 hours: Full Code; Standing ceFAZolin in dextrose (iso-os) (Ancef) IVPB 2 g documented in this encounter Plan of Treatment DateTypeDepartmentCare Team (Latest Contact Info)Xnqwkilljua04/31/2025 10:15 AM ESTOffice Visit [facility] [address] [place] [phone] Manfred Perdomo MD [address] [place] [phone] 03/30/2025 11:00 AM ESTOffice Visit [facility] [address] [place] [address] Dave Johnson MD [address] [place] [phone] NameTypePriorityAssociated DiagnosesDate/TimePOCT GlucosePoint of Care Testing STAT105/10/2024 6:49 AM ESTNameTypePriorityAssociated DiagnosesOrder SchedulePOCT GlucosePoint of Care TestingSTATOnce (Lab) for 1 Occurrences starting 03/09/2025 until 03/09/2025documented as of this encounter Procedures Procedure NamePriorityDate/TimeAssociated DiagnosisCommentsEXCISION, MASS, ABDOMINAL WALL03/09/2025 7:41 AM EST Incisional hernia, without obstruction or gangrene Abdominal wall mass REPAIR, HERNIA, VENTRAL, ROBOT-BGJXEYRY75/22/2025 7:41 AM EST Incisional hernia, without obstruction or gangrene Abdominal wall mass MRSA/MSSA DNA RCAWCOdtlqjc83/22/2025 6:48 AM EST POCT GLUCOSE METER UNSOLICITED PIZCNKIQuifqhk06/22/2025 6:47 AM EST documented in this encounter Results * MRSA/MSSA DNA Nasal (03/09/2025 6:48 AM EST)ComponentValueRef RangeTest Method Analysis TimePerformed AtPathologist SignatureMSSA DNANegativeNegative 03/09/2025 2:29 PM [facility] ([facility])MRSA DNANegativeNegative 03/09/2025 2:29 PM [facility] ([facility])Specimen (Source)Anatomical Location / LateralityCollection Method / VolumeCollection TimeReceived Time SwabNasal structure / UnknownNon-blood Collection / Tnqrghd8103/09/2025 6:48 AM EST03/09/2025 7:12 AM EST Narrative [facility] ([facility]) - 03/09/2025 2:29 PM EST Testing methodology is an automated qualitative in vitro diagnostic test for the direct detection and differentiation of Staphylococcus aureus (SA) DNA and methicillin- resistant Staphylococcus aureus (MRSA) DNA from nasal swabs in patients at risk for nasal colonization. The test utilizes real-time polymerase chain reaction (PCR) for the amplification of MRSA/SA DNA and fluorogenic target-specific hybridization probes for the detection of the amplified DNA. A negative result does not preclude nasal colonization. Authorizing ProviderResult TypeResult StatusManfred CONRAD MICROBIOLOGY - GENERAL ORDERABLESFinal ResultPerforming OrganizationAddressCity/State/ZIP Code Phone Number [facility] ([facility]) [address] [place] [address] * POCT glucose meter (03/09/2025 6:47 AM EST)ComponentValueRef RangeTest Method Analysis TimePerformed AtPathologist SignatureGlucose [id number] - 105 mg/dL 03/09/2025 7:00 AM [facility] ([facility])Comment:lgalloSpecimen (Source)Anatomical Location / LateralityCollection Method / VolumeCollection TimeReceived TimeBloodCapillary blood specimen / Fzmftzl1903/09/2025 6:47 AM EST 03/09/2025 6:59 AM EST Narrative [facility] ([place]) - 03/09/2025 7:00 AM EST Waived Testing in the ED is performed under the ED CLIA certificate #[id number]. Authorizing ProviderResult TypeResult StatusManfred CONRAD BLOOD ORDERABLES Final ResultPerforming OrganizationAddressCity/State/ZIP CodePhone Number [facility] ([place]) [address] [place] [address] documented in this encounter Visit Diagnoses Diagnosis Post-op pain- Primary Other acute postoperative pain Incisional hernia, without obstruction or gangrene Abdominal wall mass Abdominal or pelvic swelling, mass or lump, unspecified site Incisional hernia, without obstruction or gangrene Abdominal wall mass Abdominal or pelvic swelling, mass or lump, unspecified site documented in this encounter Admitting Diagnoses Diagnosis Incisional hernia, without obstruction or gangrene Abdominal wall mass Abdominal or pelvic swelling, mass or lump, unspecified site documented in this encounter Administered Medications Medication OrderMAR ActionAction DateDoseRateSite fentaNYL (Sublimaze) injection 25 mcg 25 mcg, intravenous, Every 5 min PRN, severe pain (8-10 pain score), anticipatory pain, Starting onSun03/09/25 at 1124, For 4 doses, Recovery (only) HYDROmorphone (Dilaudid) injection 0.3 mg 0.3 mg, intravenous, Every 15 min PRN, moderate pain (4-7 pain score), First choice for moderate pain (4-7), Starting on Sun03/09/25 at 1124, For 7 doses, Recovery (only), Up to 2mg total, divided into 7 doses. lactated Ringer's infusion 30 mL/hr, intravenous, Continuous, Starting on Sun03/09/25 at 0630, For 99 days, Preprocedure, Indication: pre op Given03/09/2025 11:22 AM XYO743 kLPlmnq6103/09/2025 9:23 AM JXD309 mLGiven 03/09/2025 8:15 AM IAV565 mL naloxone (Narcan) injection 0.1 mg 0.1 mg, intravenous, As needed, opioid reversal, Starting on Sun03/09/25 at 1124, For 99 days, Recovery (only), For IVP: give over 30 seconds. ondansetron HCl (PF) (Zofran) injection 4 mg 4 mg, intravenous, Once as needed, nausea, vomiting, Starting on Sun03/09/25 at 1124, For 99 days,Recovery & On Unit, Administer as an IV push over 2 to 5 minutes. sodium chloride flush 10 mL 10 mL, intravenous, Every 8 hours PRN, line care, Starting on Sun03/09/25 at 0618, For 99 days, Preprocedure documented in this encounter Active and Recently Administered Medications Times are shown in EST.Medication Order// ceFAZolin in dextrose (iso-os) (Ancef) IVPB 2 g (COMPLETED) 2 g, intravenous, at 100 mL/hr, Administer over 30 Minutes, Once, On Sun03/09/25 at 0630, For 1 dose, Preprocedure, Duplex bag - activate before hanging., Suspected Indication (Select all that apply): Surgical Prophylaxis * 0754 (Given - Provider: Juanis Holm MD) * 1123 (Anesthesia Volume Adjustment - Provider: Juanis Holm MD) gentamicin (Garamycin) 80 mg in sodium chloride irrigation solution 0.9 % 200 mL irrigation 80 mg, irrigation, Once, On Sun03/09/25 at 1130, For 1 dose, Intraprocedure, Indication: Surgical Prophylaxis * 1130 (Canceled Entry - Provider: Automatic Discharge Provider - Comment: Automatically canceled at discontinue of medication order) Medication Order// lactated Ringer's infusion 30 mL/hr, intravenous, Continuous, Starting on Sun03/09/25 at 0630, For 99 days, Preprocedure, Indication: pre op * 0630 (Canceled Entry - Provider: Automatic Discharge Provider - Comment: Automatically canceled at discontinue of medication order) * 0645 (New Bag - Provider: Sarai Daley RN) * 0739 (Continued by Anesthesia - Provider: Juanis Holm MD) * 0815 (Given - Provider: Juanis Holm MD) * 0923 (Given - Provider: Juanis Holm MD) * 1122 (Given - Provider: Juanis Holm MD) * 1123 (Anesthesia Volume Adjustment - Provider: Juanis Holm MD) * 1527 (Due: Order Ending - Provider: Automatic Discharge Provider - Comment: [Order ends at this time. Document the following action when infusion is complete: Stopped]) Medication Order/ BUPivacaine-EPINEPHrine (PF) (Marcaine w/EPI) 0.5 %-1:200,000 injection (CANCELED) As needed, Starting on Sun03/09/25 at 0842, Intraprocedure * 0842 (Given - Provider: Manfred Perdomo MD - Comment: 30mls of 0.5% marcaine with epi mixed with 20mls of 2% lidocaine. total of 37mls of mixture injected into surg sites x 4) fentaNYL (Sublimaze) injection 25 mcg 25 mcg, intravenous, Every 5 min PRN, severe pain (8-10 pain score), anticipatory pain, Starting onSun03/09/25 at 1124, For 4 doses, Recovery (only) gentamicin (Garamycin) 80 mg in sodium chloride irrigation solution 0.9 % 200 mL irrigation (CANCELED) As needed, Starting on Sun03/09/25 at 0958, Intraprocedure * 0958 (Given - Provider: Manfred Perdomo MD - Comment: for mesh irrigation) HYDROmorphone (Dilaudid) injection 0.3 mg 0.3 mg, intravenous, Every 15 min PRN, moderate pain (4-7 pain score), First choice for moderate pain (4-7), Starting on Sun03/09/25 at 1124, For 7 doses, Recovery (only), Up to 2mg total, divided into 7 doses. lidocaine HCl (Xylocaine) 20 mg/mL (2 %) injection (CANCELED) As needed, Starting on Sun03/09/25 at 0843, Intraprocedure * 0843 (Given - Provider: Manfred Perdomo MD - Comment: 20mls of 2% lidocaine mixed with 30mls of 0.5% marcaine with epi. see marcaine for administration details.) naloxone (Narcan) injection 0.1 mg 0.1 mg, intravenous, As needed, opioid reversal, Starting on Sun03/09/25 at 1124, For 99 days, Recovery (only), For IVP: give over 30 seconds. ondansetron HCl (PF) (Zofran) injection 4 mg 4 mg, intravenous, Once as needed, nausea, vomiting, Starting on Sun03/09/25 at 1124, For 99 days,Recovery & On Unit, Administer as an IV push over 2 to 5 minutes. sodium chloride flush 10 mL(Linked Group 1) 10 mL, intravenous, Every 8 hours PRN, line care, Starting on Sun03/09/25 at 0618, For 99 days, Preprocedure Order Group 1: Insert peripheral IV (CANCELED) Once, On Sun03/09/25 at 0619, For 1 occurrence, Preprocedure And Saline lock IV (CANCELED) Once, On Sun03/09/25 at 0619, For 1 occurrence, Preprocedure And sodium chloride flush 10 mLJump to med 10 mL, intravenous, Every 8 hours PRN, line care, Starting on Sun03/09/25 at 0618, For 99 days, Preprocedure documented in this encounter Care Teams Team MemberRelationshipSpecialtyStart DateEnd Date Jessie Carlos FNP-C [address] [place] [address] PCP - GeneralNurse Cbbwqhlmubxu22/21/25documented as of this encounter
--- OUTSIDE RECORDS SUMMARY | 2025-03-09 07:30 | XMS_ITS | Encounter Summary ---
Author Organization [facility] Address [address] [place] [address] Care Team Providers Care Employee Service Officer Name Role Phone Terrance, Jessie PATIENT ACCOUNT REPRESENTATIVE-C Primary Care Provider [phone] Reason for Visit * Auth/Cert (Routine)SpecialtyDiagnoses / ProceduresReferred By ContactReferred To Contact Diagnoses Incisional hernia, without obstruction or gangrene Abdominal wall mass Incisional hernia, without obstruction or gangrene [K43.2] Abdominal wall mass [R22.2] Procedures WA RPR AA HERNIA 1ST < 3 CM REDUCIBLE WA EXC TUMOR SOFT TISSUE ABDL WALL SUBFASCIAL 5CM/> ROBOTIC INCISIONAL HERNIA REPAIR WITH MESH EXCISION OF ABDOMINAL WALL MASS Manfred Perdomo MD [address] [address] Phone: tel: fax: [facility] Main Operating Room [address] [place] [address] Phone: tel: fax: Referral IDStatusReasonStart DateExpiration DateVisits RequestedVisits [id number] Encounter Details DateTypeDepartmentCare Team (Latest Contact Info)Vkundrfgeey82/22/2025 7:30 AM EST - 03/09/2025 12:00 PM ESTSurgery [facility] Main Operating Room [address] [place] [address] Manfred Perdomo MD [address] [facility] [address] [place] [address] ROBOTIC INCISIONAL HERNIA REPAIR WITH MESH Social History Tobacco UseTypesPacks/DayYears UsedDateSmoking Tobacco: NeverSmokeless Tobacco: NeverAlcohol UseStandard Drinks/WeekCommentsNever0 (1 standard drink = 0.6 oz pure alcohol)Humiliation, Afraid, Rape, and Kick questionnaireAnswerDate RecordedWithin the last year, have you been afraid of your partner or ex-partner?No01/06/2025Emotionally AbusedNot on file01/06/2025Physically Abused Not on file01/06/2025Sexually AbusedNot on file01/06/2025PHQ-2AnswerDate RecordedPatient Health Questionnaire-2 Dgkno918UT Safety & Environment AnswerDate RecordedFear of Current or Ex-PartnerNot on 05/11/2023Emotionally AbusedNot on file05/11/2023hysically AbusedNot on file05/11/2023Sexually AbusedNot on file05/11/2023hysically or Sexually AbusedNot on file05/11/2023 CommentsNoSex and Gender InformationValueDate RecordedSex Assigned at YxfhiXkekun85/21/2025 2:00 PM EDTLegal YnhBofdkp57/15/2023 12:50 PM EDTGender KtlvxkgaOfsfvd12/21/2025 2:00 PM EDTSexual OrientationHeterosexual or Straight 01/06/2025 2:00 PM EDTdocumented as of this encounter Last Filed Vital Signs Vital SignReadingTime TakenCommentsBlood Bndnthgu049/6403/09/2025 11:50 AM EST Gxblg357003/09/2025 11:50 AM BJSVitsxvnlrik35.5 ??C (97.7 ??F)03/09/2025 11:20 AM ESTRespiratory Dtlv129505/10/2024 11:50 AM ESTOxygen Bkxlabbnml69%03/09/2025 11:50 AM ESTInhaled Oxygen Concentration--Ggevrk89.3 kg (181 lb 7 oz)03/09/2025 6:50 AM RZVVbvbxz866.4 cm (5')03/09/2025 6:50 AM ESTBody Mass Index35.43105/10/2024 [...] capsule / ergocalciferol (Vitamin D-2) 1.25 MG (29978 Units) capsule Take 1 capsule by mouth 1 (one) time per week. garlic 1,000 mg capsule Take 6,000 mg by mouth 1 (one) time each day. HYDROcodone-acetaminophen ([place]) 5-325 mg tablet Indications:Post-op painTake 1 tablet by mouth every 6 (six) hours if needed for severe pain (8-10 pain score) for up to 5 days. 14 tablet / omega-3 acid ethyl esters (Lovaza) 1 gram [...] Insecurity: No Food Insecurity (07/31/2023) Received from [facility] Hunger Vital Sign Within the past 12 months, you worried that your food would run out before you got the money to buymore.: Never true Within the past 12 months, the food you bought just didn't last and you didn't have money to get more.: Never true Transportation Needs: No Transportation Needs (07/31/2023) [facility] PRAP[facility] - Transportation Lack of Transportation [...] Housing Stability: Low Risk (07/31/2023) [facility] Housing Stability Vital Sign Unable to [...] wall mass - Will obtain consent - Anc for preop abx [1] Past Medical History: [...] the morning. ergocalciferol (Vitamin D-2) 1.25 MG (25146 Units) capsule Take 1 capsule by mouth [...] and exam findings with Dr. Hernandez, surgical dressing maker and have personally seen the patient. I agree with the assessment, plan and orders as documented. [phone] pager [phone] phone documented in this encounter Nursing Notes * Sarai Daley RN - 03/09/2025 6:58 AM EST Patient arrived to unit with a steady gait documented in this encounter Miscellaneous Notes * Op Note - Manfred Perdomo MD - 03/09/2025 7:41 AM EST ROBOTIC INCISIONAL HERNIA REPAIR WITH MESH, EXCISION OF ABDOMINAL WALL MASS Operative Note Date: 03/09/2025 Location: [facility] OR Name: Elisa Wills, : 1940, Diagnosis [...] Implants Type Name Action Serial No. Mesh MESH,ARPANCIGAL,BROIP,[id number] - [id number] Implanted Staff: Screw Machine Operator Single Spindle: Charlotte Boyer RN; Gala Marquez RN Relief Screw Machine Operator Single Spindle: Robin Hoff RN; Monica Jaffe RN Relief Scrub: Tamela Valenzuela CST Scrub Person: Tamela Valenzuela CST; Amalia Ernst Screw Machine Operator Single Spindle: [place] Niño RN Indications: Elisa Wills is [...] Plan of Treatment DateTypeDepartmentCare Team (Latest Contact Info)Ukyfvosndsb94/31/2025 10:15 AM ESTOffice Visit [facility] [address] [facility] [place] [address] Manfred Perdomo MD [address] [address] 03/30/2025 11:00 AM ESTOffice Visit [facility] [place] [address] [place] [address] Dave Johnson MD [address] [place] [address] NameTypePriorityAssociated DiagnosesDate/TimePOCT GlucosePoint of Care Testing STAT105/10/2024 6:49 AM ESTNameTypePriorityAssociated DiagnosesOrder SchedulePOCT GlucosePoint of Care TestingSTATOnce (Lab) for 1 Occurrences starting 03/09/2025 until 03/09/2025documented as of this encounter Procedures Procedure NamePriorityDate/TimeAssociated DiagnosisCommentsEXCISION, MASS, ABDOMINAL WALL03/09/2025 7:41 AM EST Incisional hernia, without obstruction or gangrene Abdominal wall mass REPAIR, HERNIA, VENTRAL, ROBOT-QCFYUAHY97/22/2025 7:41 AM EST Incisional hernia, without obstruction or gangrene Abdominal wall mass MRSA/MSSA DNA HHTMYPnlpoul05/22/2025 6:48 AM EST POCT GLUCOSE METER UNSOLICITED DCTDKORNpqegux93/22/2025 6:47 AM EST documented in this encounter Results * MRSA/MSSA DNA Nasal (03/09/2025 6:48 AM EST)ComponentValueRef RangeTest Method Analysis TimePerformed AtPathologist SignatureMSSA DNANegativeNegative 03/09/2025 2:29 PM [facility] ([facility])MRSA DNANegativeNegative 03/09/2025 2:29 PM [facility] ([facility])Specimen (Source)Anatomical Location / LateralityCollection Method / VolumeCollection TimeReceived Time SwabNasal structure / UnknownNon-blood Collection / Fhptrhw3303/09/2025 6:48 AM EST03/09/2025 7:12 AM EST Narrative [facility] ([facility]) - 03/09/2025 2:29 PM EST Testing [...] GENERAL ORDERABLESFinal ResultPerforming OrganizationAddressCity/State/ZIP Code Phone Number [facility] ([facility]) [address], [place] [phone] * POCT glucose meter (03/09/2025 6:47 AM EST)ComponentValueRef RangeTest Method Analysis TimePerformed AtPathologist SignatureGlucose BAX0486 - 105 mg/dL 03/09/2025 7:00 AM [facility])Comment:lgalloSpecimen (Source)Anatomical Location / LateralityCollection Method / VolumeCollection TimeReceived TimeBloodCapillary blood specimen / Etsxrao0803/09/2025 6:47 AM EST 03/09/2025 6:59 AM EST Narrative [facility] ([place]) - 03/09/2025 7:00 AM EST Waived Testing in the ED is performed under the ED CLIA certificate #[id number]. Authorizing ProviderResult TypeResult StatusManfred CONRAD BLOOD ORDERABLES Final ResultPerforming OrganizationAddressCity/State/ZIP CodePhone Number [facility] ([place]) [address] [place] [address] documented in this encounter Visit Diagnoses Diagnosis [...] encounter Administered Medications Medication OrderMAR ActionAction DateDoseRateSite BUPivacaine-EPINEPHrine (PF) (Marcaine w/EPI) 0.5 %-1:200,000 injection As needed, Starting on Sun03/09/25 at 0842, Intraprocedure Given03/09/2025 8:42 AM EST30 mL fentaNYL (Sublimaze) injection 25 mcg 25 mcg, intravenous, Every 5 min PRN, severe pain (8-10 pain score), anticipatory pain, Starting onSun03/09/25 at 1124, For 4 doses, Recovery (only) gentamicin (Garamycin) 80 mg in sodium chloride irrigation solution 0.9 % 200 mL irrigation As needed, Starting on Sun03/09/25 at 0958, Intraprocedure Given03/09/2025 9:58 AM EST80 mg HYDROmorphone (Dilaudid) injection 0.3 mg 0.3 mg, intravenous, Every 15 min PRN, moderate pain (4-7 pain score), First choice for moderate pain (4-7), Starting on Sun03/09/25 at 1124, For 7 doses, Recovery (only), Up to 2mg total, divided into 7 doses. lactated Ringer's infusion 30 mL/hr, intravenous, Continuous, Starting on Sun03/09/25 at 0630, For 99 days, Preprocedure, Indication: pre op Given03/09/2025 11:22 AM ZKG084 xERquyf8303/09/2025 9:23 AM AQL129 mLGiven 03/09/2025 8:15 AM YPQ590 mL lidocaine HCl (Xylocaine) 20 mg/mL (2 %) injection As needed, Starting on Sun03/09/25 at 0843, Intraprocedure Given03/09/2025 8:43 AM EST20 mL naloxone (Narcan) injection 0.1 mg 0.1 [...] Administered Medications Times are shown in EST.Medication Order/ ceFAZolin in dextrose (iso-os) (Ancef) IVPB 2 [...] canceled at discontinue of medication order) Medication Order/ lactated Ringer's infusion 30 mL/hr, intravenous, Continuous, [...] DateEnd Date Jessie Carlos FNP-C [address] [place] [address] PCP - GeneralNurse Jtbmsgdpdvwk66/21/25documented as of this encounter
--- OUTSIDE RECORDS SUMMARY | 2025-03-09 07:39 | XMS_ITS | Encounter Summary ---
Author Organization [facility] Address [address] [facility] [address] [place] [address] Care Team Providers Care Tree Surgeon Helper Name Role Phone Jessie Carlos ADVERTISING MATERIAL DISTRIBUTOR-C Primary Care Provider [phone] Reason for Visit * Auth/Cert (Routine)SpecialtyDiagnoses / ProceduresReferred By ContactReferred To Contact Diagnoses Incisional hernia, without obstruction or gangrene Abdominal wall mass Incisional hernia, without obstruction or gangrene [K43.2] Abdominal wall mass [R22.2] Procedures RI RPR AA HERNIA 1ST < 3 CM REDUCIBLE RI EXC TUMOR SOFT TISSUE ABDL WALL SUBFASCIAL 5CM/> ROBOTIC INCISIONAL HERNIA REPAIR WITH MESH EXCISION OF ABDOMINAL WALL MASS Manfred Bermudez MD [address] [place] [phone] Phone: tel: fax: [facility] Main Operating Room [address] [place] [address] Phone: tel: fax: Referral IDStatusReasonStart DateExpiration DateVisits RequestedVisits [id number] Encounter Details DateTypeDepartmentCare Team (Latest Contact Info)Vrduufeeipm85/22/2025 7:39 AM ESTAnesthesia Event [facility] Main Operating Room [address] [place] [address] Deacon Max MD [address] [place] [address] Eduard Rosario MD [address] [place] [address] [id number] Anesthesia Record Procedure NameResponsible AnesthesiologistAnesthesia Start TimeAnesthesia Stop TimeROBOTIC INCISIONAL HERNIA REPAIR WITH MESH (Abdomen)Deacon Max MD 03/09/25 [id number]/09/25 8694TuaoCycqUhleoUtudfsn68/22/[id number] Htssp1268Kf Start Zccx8882Ws InductionThe patient was reevaluated immediately before moderate or deep sedation use and before anesthesia induction.0800An Intubation 0821Anesthesia Bjpnk1172Lbie OutTime out completed (confirmed patient ID, surgeon, procedure, and operative site).1116An Uomtnmekwy5619qu stop byse3692Jh Iwtb6995Pujbgff to ReceivingI completed my handoff to the receiving clinician during which we: 1. Identified the patient 2. Identified the responsible provider 3. Reviewed the pertinent medical history 4. Discussed the surgical course 5. Reviewed intra-op anesthesia management and issues during anesthesia 6. Set expectations for post-procedure period 7. Allowed opportunity for questions and acknowledgement of understanding.* NameTotalfentaNYL (SUBLIMAZE) foeusynqc53 mcglidocaine (Xylocaine) 20 mg/ml injection 2 %100 mgpropofol 10 mg/mL150 tdnfqtxqrzyo950 mgdexAMETHasone (Decadron) 4 MG/ML injection4 mg ondansetron 2 mg/mL4 mgePHEDrine 50 mg/ml gnkthvbel84 mgsugammadex 200 mg/2mL 200 mgceFAZolin in dextrose (iso-os) (Ancef) IVPB 2 g2 gglycopyrrolate 0.2 mg/mL0.2 mcglactated Ringer's infusion1,012 mLdexmedeTOMIDine (Precedex) 20 mcg/5 mL NS IV SYRINGE (OR Use Only)20 mcgmagnesium sulfate IVPB 2 g2 g * Agents Name O2 N2O Air Sevoflurane Inspired Sevoflurane N2O Inspired N2O Inspired O2 Setting * Blood No blood administrations on file. TypeDetailsPlacementRemovalOpen Wound (Any Pressure Injuries included)03/09/25; 0856; Surgical; Laparoscopic (lap sites x 4); Flank; Left, Lower03/09/25 0856 by Jesenia Rashid Wound (Any Pressure Injuries included)03/09/25; 1106; Surgical; Abdomen; Upper; laparoscopic port sites x4105/10/24 1106 by BIA Rashideripheral IVPlacement Date: 03/09/25; Placement Time: 0645; Catheter Size: 18 G; Orientation: Posterior, Right;Location: Hand; Technique: Anatomical landmarks; Inserted by: lmg; Difficult Venous Access? No; Patient Tolerance: Tolerated well; Removal Date: 03/09/25; Removal Time: 0645 by Sarai Daley RN03/09/25 1327 by Abi Bond RNETTPlacement Date: 03/09/25; Placement Time: 0800 (created via procedure documentation); Mask Ventilation: 2; Technique: Video laryngoscopy; Type: ETT - single; Single Lumen Tube Size: 7.5 mm; Cuffed: Yes; Blade Size: 3; Location: Oral; Grade View: Grade IIa; Insertion Attempts: 1; Placement Verification: Auscultation, Capnometry; Removal Date: 03/09/25; Removal Time: 0800 by Juanis Holm MD03/09/25 1116 by Juanis Holm MDUrethral CatheterPlacement Date: 03/09/25; Placement Time: 0811; Inserted by: Jamel SHEPARD RN; Size: 16 Fr.; Balloon Size: 10 mL; Urine Returned: Yes; Removal Date: 03/09/25; Removal Time: 0811 by Charlotte Shepard RN03/09/25 1105 by Charlotte Shepard RNdocumented in this encounter Social History Tobacco UseTypesPacks/DayYears UsedDateSmoking Tobacco: NeverSmokeless Tobacco: NeverAlcohol UseStandard Drinks/WeekCommentsNever0 (1 standard drink = 0.6 oz pure alcohol)Humiliation, Afraid, Rape, and Kick questionnaireAnswerDate RecordedWithin the last year, have you been afraid of your partner or ex-partner?No01/06/2025Emotionally AbusedNot on file01/06/2025Physically Abused Not on file01/06/2025Sexually AbusedNot on file01/06/2025PHQ-2AnswerDate RecordedPatient Health Questionnaire-2 Neudg370UT Safety & Environment AnswerDate RecordedFear of Current or Ex-PartnerNot on file05/11/2023Emotionally AbusedNot on file05/11/2023hysically AbusedNot on file05/11/2023Sexually AbusedNot on file05/11/2023hysically or Sexually AbusedNot on file05/11/2023 CommentsNoSex and Gender InformationValueDate RecordedSex Assigned at EeozlOjjpdd85/21/2025 2:00 PM EDTLegal WjzCinnct54/15/2023 12:50 PM EDTGender XuklkvotQfipxk42/21/2025 2:00 PM EDTSexual OrientationHeterosexual or Straight 01/06/2025 2:00 PM EDTdocumented as of this encounter Procedure Notes * Deacon Max MD - 03/09/2025 8:16 AM ESTAssociated Order(s): Airway Airway Date/Time: 03/09/2025 8:00 AM Reason: elective Airway not difficult General Information and Staff Patient location during procedure: OR Anesthesiologist: Deacon Max MD Resident/DIRECTOR PACKAGING/CAA: Juanis Holm MD Performed: resident/DIRECTOR PACKAGING/CAA Patient Condition Indications for airway management: anesthesia Sedation level: deep Final Airway Details Preoxygenated: yes Final airway type: endotracheal airway Successful airway: ETT Cuffed: yes Successful intubation technique: video laryngoscopy Adjuncts used in placement: intubating stylet Endotracheal tube insertion site: oral Blade: Watson Blade size: #3 ETT size (mm): 7.5 Cormack-Lehane Classification: grade IIa - partial view of glottis Placement verified by: chest auscultation and capnometry Measured from: lips ETT to lips (cm): 21 Number of attempts at approach: 1 Number of other approaches attempted: 0 documented in this encounter Plan of Treatment DateTypeDepartmentCare Team (Latest Contact Info)Ywvriqttvce08/31/2025 10:15 AM ESTOffice Visit [facility] Clinic [address] [place] [address] Manfred Bermudez MD [address] [place] [address] 03/30/2025 11:00 AM ESTOffice Visit [facility] [address] [place] [address] Dave Johnson MD [address] [place] [address] documented as of this encounter Procedures Procedure NamePriorityDate/TimeAssociated DiagnosisCommentsPR AN ELECTIVE ENDOTRACHEAL TUCEWWNrweocr95/22/2025 8:00 AM EST documented in this encounter Results * RI AN ELECTIVE ENDOTRACHEAL AIRWAY (03/09/2025 8:00 AM EST) Deacon Roa MD - 03/09/2025 8:00 AM EST Deacon Max MD 03/10/2025 2:42 PM Airway Date/Time: 03/09/2025 8:00 AM Reason: elective Airway not difficult General Information and Staff Patient location during procedure: OR Anesthesiologist: Deacon Max MD Resident/DIRECTOR PACKAGING/CAA: Juanis Holm MD Performed: resident/DIRECTOR PACKAGING/CAA Patient Condition Indications for airway management: anesthesia Sedation level: deep Final Airway Details Preoxygenated: yes Final airway type: endotracheal airway Successful airway: ETT Cuffed: yes Successful intubation technique: video laryngoscopy Adjuncts used in placement: intubating stylet Endotracheal tube insertion site: oral Blade: Watson Blade size: #3 ETT size (mm): 7.5 Cormack-Lehane Classification: grade IIa - partial view of glottis Placement verified by: chest auscultation and capnometry Measured from: lips ETT to lips (cm): 21 Number of attempts at approach: 1 Number of other approaches attempted: 0 Authorizing ProviderResult TypeResult StatusRavincongidalia Zeinaross MDANESTHESIA ORDERABLESFinal Result documented in this encounter Visit Diagnoses * Anesthesia Postprocedure Evaluation - Giles Patterson MD - 03/09/2025 12:34 PM EST Patient: Elisa Wills Procedure Summary Date: 03/09/25 Room / Location: [facility] OPERATING ROOM 13 / [facility] Operating Room Anesthesia Start: 07 Anesthesia Stop: 1123 Procedures: ROBOTIC INCISIONAL HERNIA REPAIR WITH MESH (Abdomen) EXCISION OF ABDOMINAL WALL MASS (Abdomen) Diagnosis: Incisional hernia, without obstruction or gangrene Abdominal wall mass (Incisional hernia, without obstruction or gangrene [K43.2]) (Abdominal wall mass [R22.2]) Surgeons: Manfred Bermudez MD Responsible Provider: Deacon Max MD Anesthesia Type: general ASA Status: 2 Anesthesia Type: general Vitals Value Taken Time BP 123/68 03/09/25 12:06 Temp 36.5 ??C (97.7 ??F) 03/09/25 11:20 Pulse 51 03/09/25 12:17 Resp 17 03/09/25 12:17 SpO2 93 % 03/09/25 12:17 Vitals shown include unfiled device data. Anesthesia Post Evaluation Patient location during evaluation: PACU Patient participation: complete - patient participated Level of consciousness: awake Pain management: adequate Cardiovascular status: acceptable Respiratory status: acceptable Hydration status: acceptable Comments: Patient was evaluated for PACU discharge prior to leaving. Patient is hemodynamically stable and is able to be discharged from PACU per anesthesia protocol. No notable events documented. * Anesthesia Preprocedure Evaluation - Juanis Holm MD - 03/09/2025 7:13 AM EST Images from the original note were not included. Patient: Elisa Wills Procedure Information Date/Time: 03/09/25 0730 Procedures: ROBOTIC INCISIONAL HERNIA REPAIR WITH MESH EXCISION OF ABDOMINAL WALL MASS - Olu BERMUDEZ REQUESTING 4 HOUR TOTAL FOR BOTH PROCEDURES Location: [facility] OPERATING ROOM 13 / [facility] Operating Room Surgeons: Manfred Bermudez MD Relevant Problems Cardio (+) Hypertension Endo (+) Hyperthyroidism Encounter Date: 01/06/25 ECG 12 lead Result Value Ventricular Rate 57 Atrial Rate 57 RI Interval 200 QRS DURATION 84 QT Interval 426 QTC CALCULATION(BAZETT) 414 P [place] 33 R-[place] 16 T Wave [place] 18 Impression Sinus bradycardia Otherwise normal ECG No previous ECGs available Confirmed by Yoan Wiley ([id number]) on 01/06/2025 8:00:50 PM Clinical information reviewed: Tobacco Allergies Meds Med Hx Surg Hx Fam Hx Soc Hx Physical Exam Airway Mallampati: II TM distance: >3 FB Neck ROM: full Cardiovascular - normal exam Dental Comments: No loose or chipped teeth Pulmonary - normal exam Neurological Abdominal (+) obese Anesthesia Plan ASA 2 general (GETA with standard ASA monitoring, BIS monitoring throughout procedure) The patient is not a current smoker. Patient was previously instructed to abstain from smoking on day of procedure. Patient did not smoke on day of procedure. intravenous induction Postoperative pain plan includes opioids. Trial extubation is planned. Anesthetic plan and risks discussed with patient. Use of blood products discussed with patient who consented to blood products. Plan discussed with attending. Additional Equipment Requests Cosigned by Deacon Max MD at 03/09/2025 11:24 AM EST documented in this encounter Administered Medications Medication OrderMAR ActionAction DateDoseRateSite ceFAZolin in dextrose (iso-os) (Ancef) IVPB 2 g 2 g, intravenous, at 100 mL/hr, Administer over 30 Minutes, Once, On Sun03/09/25 at 0630, For 1 dose, Preprocedure, Duplex bag - activate before hanging., Suspected Indication (Select all that apply): Surgical Prophylaxis Indications:Incisional hernia, without obstruction or gangrene,Abdominal wall atyaXqpvt77/22/2025 7:54 AM EST2 g dexAMETHasone (Decadron) injection intravenous, As needed, Starting on Sun03/09/25 at 0905, Anesthesia Intraprocedure Given03/09/2025 9:05 AM EST4 mg dexmedeTOMIDine in NS (Precedex) 4 mcg/mL IV syringe intravenous, As needed, Starting on Sun03/09/25 at 0830, Anesthesia Intraprocedure Given03/09/2025 11:05 AM EST8 lzrGfabb50/22/2025 10:13 AM EST4 mcgGiven 03/09/2025 8:34 AM EST4 mcg ePHEDrine injection intravenous, As needed, Starting on Sun03/09/25 at 0753, Anesthesia Intraprocedure Given03/09/2025 7:57 AM EST10 mg fentaNYL (Sublimaze) injection intravenous, As needed, Starting on Sun03/09/25 at 0809, Anesthesia Intraprocedure Given03/09/2025 8:09 AM EST25 crhMygjj87/22/2025 7:48 AM EST50 mcg glycopyrrolate (Robinul) injection intravenous, As needed, Starting on Sun03/09/25 at 0748, Anesthesia Intraprocedure Given03/09/2025 7:48 AM EST0.2 mcg lactated Ringer's infusion 30 mL/hr, intravenous, Continuous, Starting on Sun03/09/25 at 0630, For 99 days, Preprocedure, Indication: pre op Given03/09/2025 11:22 AM IDF501 iPPjjgj6703/09/2025 9:23 AM HWQ178 mLGiven 03/09/2025 8:15 AM DCP524 mL lidocaine HCl (Xylocaine) 20 mg/mL (2 %) injection intravenous, As needed, Starting on Sun03/09/25 at 0748, Anesthesia Intraprocedure Given03/09/2025 7:48 AM CEM863 mg magnesium sulfate in water IVPB intravenous, Administer over 1 Hours, As needed, Starting on Sun03/09/25 at 0900, Anesthesia Intraprocedure Given03/09/2025 9:00 AM EST2 g ondansetron (Zofran) injection intravenous, As needed, Starting on Sun03/09/25 at 1054, Anesthesia Intraprocedure Given03/09/2025 10:54 AM EST4 mg propofol (Diprivan) 10 mg/mL infusion intravenous, As needed, Starting on Sun03/09/25 at 0748, Anesthesia Intraprocedure Given12/ 7:48 AM RVF226 mg rocuronium (ZeMuron) injection intravenous, As needed, Starting on Sun03/09/25 at 0748, Anesthesia Intraprocedure Given03/09/2025 10:47 AM EST10 ykYtfhj9003/09/2025 10:21 AM EST10 mgGiven 03/09/2025 9:49 AM EST10 mg sugammadex (Bridion) injection intravenous, As needed, Starting on Sun03/09/25 at 1058, Anesthesia Intraprocedure Given03/09/2025 10:58 AM XCS578 mgdocumented in this encounter Care Teams Team MemberRelationshipSpecialtyStart DateEnd Jessie Carlos, UVALDO-C [address] [place] [address] PCP - GeneralNurse Axwzngugfmfo13/21/25documented as of this encounter
[2025-03-12 01:22] VITALS: BP 156/109; PULSE 80; TEMP 36.7; O2SAT 94; BMI 34.2
--- NOTE | 2025-03-12 01:36 | XR_ITS ---
[facility] [place] [id number] Patient Name: MICHEAL BRICE MRN: [id number] date: 1940 Sex: F Assigned Patient Location: ER Current Patient Location: Accession/Order Number: [id number] Exam Date: 03/12/2025 01:45 Report Date: 03/12/2025 17:24 At the request of: JOJO TOVAR MD Procedure: XR abdomen 1V Single view of abdomen with comparison CT 03/30/2023 HISTORY: 5 days. Hernia repair. Constipation. Moderate stool throughout the colon. Gaseous intestinal distention, moderate. Lumbar degeneration. Right upper quadrant surgical clips XR/XR abdomen 1V IMPRESSION: Constipation. Impression dictated by: Ramon Wilkes M.D. 03/12/2025 5:24 PM Dictation Location: [place] [address] Electronically authenticated by: [id number] Y Date: 03/12/2025 17:24
--- NOTE | 2025-03-12 01:37 | ED_ITS ---
HPI HPI - General Adult General Chief complaint: Abdominal Pain Stated complaint: CONSTIPATED AFTER SURGERY Time Seen by Provider: 03/12/25 01:32 Source: patient Mode of arrival: walk-in History of Present Illness HPI narrative: patient presents complaining of constipation. States last normal BM 5 days ago. Had hernia surgery of her abdomen last week. Has taken norco for pain. No vomiting. abdomen still sore. No fever Related Data Home Medications ?Medication ?Instructions ?Recorded ?Confirmed calcium carbonate 1,200 mg PO DAILY 11/13/24 0 11/13/24 ergocalciferol (vitamin D2) 1,250 50,000 unit PO DAILY 11/13/24 11/13/24 mcg (50,000 unit) capsule Allergies Allergy/AdvReac Type Severity Reaction Status Date / Time No Known Drug Allergies Allergy Verified 03/12/25 01:22 Review of Systems ROS Status of ROS 10 or more systems reviewed and unremark able except as noted in history and below [facility] Medical History (Updated 03/12/25 @ 02:52 by Toro Acevedo MD) Closed fracture ?T14.8XXA - Other injury of unspecified body region, initial encounter (ICD- 10) Cataract ?H26.9 - Unspecified cataract (ICD-10) 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 amputation of unspecified thumb, initial encounter (ICD-10) Lipoma of arm ?D17.20 - Benign lipomatous neoplasm of skin and subcutaneous tissue of unspecified limb (ICD-10) Lipoma of back ?D17.1 - Benign lipomatous neoplasm of skin and subcutaneous tissue of trunk (ICD-10) History of hyperthyroidism ?Z86.39 - Personal history of other endocrine, nutritional and metabolic disease (ICD-10) Biliary colic ?K80.50 - Calculus of bile duct without cholangitis or cholecystitis without obstruction (ICD-10) Chest pain ?R07.9 - Chest pain, unspecified (ICD-10) Hypertension ?I10 - Essential (primary) hypertension (ICD-10) High cholesterol ?E78.00 - Pure hypercholesterolemia, unspecified (ICD-10) Surgical History (Updated 11/13/24 @ 09:22 by Paige Celis) History of incisional hernia repair ?Z98.890 - Other specified postprocedural states (ICD-10) ?Z87.19 - Personal history of other diseases of the digestive system (ICD-10) History of lysis of adhesions ?Z98.890 - Other specified postprocedural states (ICD-10) H/O local excision of skin lesion ?Z98.890 - Other specified postprocedural states (ICD-10) History of arthroplasty of right knee ?Z96.651 - Presence of right artificial knee joint (ICD-10) History of cholecystectomy ?Z90.49 - Acquired absence of other specified parts of digestive tract (ICD- 10) History of hernia repair ?Z98.890 - Other specified postprocedural states (ICD-10) ?Z87.19 - Personal history of other diseases of the digestive system (ICD-10) Family History (Updated 11/13/24 @ 09:14 by Paige Celis) Other Family history of Alzheimer's disease Family history of cancer Family history of heart disease Social History (Updated 11/13/24 @ 09:12 by Paige Celis) Within the past year, how often did you have a drink containing alcohol: never Score interpretation: A score less than 3 is consistent with normal alcohol consumption. Smoking status: Former smoker Non-prescribed substance use: denies use Previous occupational history: retired Little interest or pleasure in doing things: not at all Feeling down, depressed, or hopeless: not at all Exam Constitutional Vital Signs, click to edit/add: Last Vital Signs Temp 98.1 F 03/12/25 01:22 Pulse 80 03/12/25 01:22 Resp 20 03/12/25 01:22 BP 156/109 H 03/12/25 01:22 Pulse Ox 94 L 03/12/25 01:22 O2 Del Method Room Air 03/12/25 01:22 Common normals: no apparent distress, average body habitus, oriented x3, no limitations, healthy appearing, alert and well nourished [facility] Common normals: normocephalic and head/scalp atraumatic Eye Common normals: PERRL and EOMs intact bilaterally Respiratory Common normals: normal respiratory effort, no retractions, no use of accessory muscles and clear to auscultation bilaterally Cardio Common normals: regular rate, regular rhythm, S1 normal heart sound and S2 normal heart sound GI Common normals: Normal to inspection, nondistended, normoactive bowel sounds present Other: multiple small incisions of the abdominal wall are dry. No sign of infection. gen. mild -mod abdominal wall tenderness. no guarding. no erythema Extremity Common normals: normal to inspection and full ROM Neuro Common normals: oriented x3, CN's II-XII intact bilaterally, moves all extremities and no focal motor deficits Psych Appearance: grossly normal Course Vital Signs Vital signs: Vital Signs Temperature 98.1 F 03/12/25 01:22 Pulse Rate 80 03/12/25 01:22 Respiratory Rate 20 03/12/25 01:22 Blood Pressure 156/109 H 03/12/25 01:22 Pulse Oximetry 94 L 03/12/25 01:22 Oxygen Delivery Method Room Air 03/12/25 01:22 Temperature 98.1 F 03/12/25 01:22 Pulse Rate 80 03/12/25 01:22 Respiratory Rate 20 03/12/25 01:22 Blood Pressure 156/109 H 03/12/25 01:22 Pulse Oximetry 94 L 03/12/25 01:22 Oxygen Delivery Method Room Air 03/12/25 01:22 Medical Decision Making MDM Narrative Medical decision making narrative: patient presents with constipation. xray confirmed constipation. Enema given by nursing successful and patient discharged home Discharge Plan Discharge Chief Complaint: Abdominal Pain Clinical Impression: Constipation Patient Disposition: Home, Self-Care Prescriptions / Home Meds: No Action ergocalciferol (vitamin D2) 1,250 mcg (50,000 unit) capsule 50,000 unit PO DAILY calcium carbonate 600 mg calcium (1,500 mg) tablet 1,200 mg PO DAILY Print Language: Turkish Instructions: Constipation (ED) Referrals: Physician,Non-Staff, MD [Primary Care Provider] - 1 week
--- OUTSIDE RECORDS SUMMARY | 2025-03-12 02:03 | XMS_ITS | Encounter Summary ---
Author Organization [facility] Address [address] [place] [address] Care Team Providers Care Baling Machine Tender Name Role Phone Jessie Carlos [employer]RECTIONAL LIEUTENANT-C Primary Care Provider [phone] Encounter Details DateTypeDepartmentCare Team (Latest Contact Info)Xgxeipzdobg52/12/2025Orders Only [facility] Pre-Anesthesia Clinic [address] [place] [address] Isai Pollock RN Social History Tobacco UseTypesPacks/DayYears UsedDateSmoking Tobacco: NeverSmokeless Tobacco: NeverAlcohol UseStandard Drinks/WeekCommentsNever0 (1 standard drink = 0.6 oz pure alcohol)Humiliation, Afraid, Rape, and Kick questionnaireAnswerDate RecordedWithin the last year, have you been afraid of your partner or ex-partner?No01/06/2025Emotionally AbusedNot on file01/06/2025Physically Abused Not on file01/06/2025Sexually AbusedNot on file01/06/2025PHQ-2AnswerDate RecordedPatient Health Questionnaire-2 Liavu957UT Safety & Environment AnswerDate RecordedFear of Current or Ex-PartnerNot on 05/11/2023Emotionally AbusedNot on 05/11/2023hysically AbusedNot on 05/11/2023Sexually Abused Not on file05/11/2023hysically or Sexually AbusedNot on file05/11/2023 CommentsNoSex and Gender InformationValueDate RecordedSex Assigned at Bchzcb4501/06/2025 2:00 PM EDTLegal BziKjolqt74/15/2023 12:50 PM EDTGender KcknltbgGkrwfa02/21/2025 2:00 PM EDTSexual OrientationHeterosexual or Straight 01/06/2025 2:00 PM EDTdocumented as of this encounter Plan of Treatment DateTypeDepartmentCare Team (Latest Contact Info)Pyllzxipjhn98/31/2025 10:15 AM ESTOffice Visit [facility] [address] [place] [address] Manfred Perdomo MD [address] [address] 03/30/2025 11:00 AM ESTOffice Visit [place] [address] [place] [address] Dave Johnson MD [address] [place] [address] documented as of this encounter Visit Diagnoses Not on filedocumented in this encounter Care Teams Team MemberRelationshipSpecialtyStart DateEnd Date Jessie Carlos FNP-C [address] [place] [address] PCP - GeneralNurse Nxnvcvsrdvov56/21/25documented as of this encounter
--- OUTSIDE RECORDS SUMMARY | 2025-03-12 02:03 | XMS_ITS | Encounter Summary ---
Author Organization [facility] Address [address] [place] [address] Care Team Providers Care Molding Associate Name Role Phone Jessie Carlos GEAR NICKER-C Primary Care Provider [phone] Encounter Details DateTypeDepartmentCare Team (Latest Contact Info)Gnzfaxgpuhb75/16/2025Orders Only [facility] Pre-Anesthesia Clinic [address] [place] [address] Isai Pollock RN Social History Tobacco UseTypesPacks/DayYears UsedDateSmoking Tobacco: NeverSmokeless Tobacco: NeverAlcohol UseStandard Drinks/WeekCommentsNever0 (1 standard drink = 0.6 oz pure alcohol)Humiliation, Afraid, Rape, and Kick questionnaireAnswerDate RecordedWithin the last year, have you been afraid of your partner or ex-partner?No01/06/2025Emotionally AbusedNot on file01/06/2025Physically Abused Not on file01/06/2025Sexually AbusedNot on file01/06/2025PHQ-2AnswerDate RecordedPatient Health Questionnaire-2 Gkiis419UT Safety & Environment AnswerDate RecordedFear of Current or Ex-PartnerNot on file05/11/2023Emotionally AbusedNot on 05/11/2023hysically AbusedNot on 05/11/2023Sexually Abused Not on file05/11/2023hysically or Sexually AbusedNot on file05/11/2023 CommentsNoSex and Gender InformationValueDate RecordedSex Assigned at Oojeia6101/06/2025 2:00 PM EDTLegal ThwSncnyo56/15/2023 12:50 PM EDTGender LuqaevgeIciolk27/21/2025 2:00 PM EDTSexual OrientationHeterosexual or Straight 01/06/2025 2:00 PM EDTdocumented as of this encounter Plan of Treatment DateTypeDepartmentCare Team (Latest Contact Info)Ewojjajmifq70/31/2025 10:15 AM ESTOffice Visit [facility] [address] [place] [address] Manfred Perdomo MD [address] [address] 03/30/2025 11:00 AM ESTOffice Visit [place] [address] [place] [address] Dave Johnson MD [address] [place] [address] documented as of this encounter Visit Diagnoses Not on filedocumented in this encounter Care Teams Team MemberRelationshipSpecialtyStart DateEnd Date Jessie Carlos FNP-C [address] [place] [address] PCP - GeneralNurse Qkrhzooktcxp20/21/25documented as of this encounter
--- OUTSIDE RECORDS SUMMARY | 2025-03-12 02:03 | XMS_ITS | Clinical Summary ---
Author Organization [facility] Address [address] [place] [address] Care Team Providers Care Ampoule Filler Name Role Phone Jessie Carlos SHEET METAL DUCT INSTALLER-C Primary Care Provider [phone] Allergies No known active allergies Medications MedicationSigDispense QuantityRefillsLast FilledStart DateEnd DateStatus cyanocobalamin, vitamin B-12, 1,000 mcg/mL drops Take 1 tablet by mouth in the morning.Active calcium carbonate 600 mg calcium (1,500 mg) tablet Take 1,200 mg by mouth in the morning.Active ergocalciferol (Vitamin D-2) 1.25 MG (24170 Units) capsule Take 1 capsule by mouth 1 (one) time per week.Active omega-3 acid ethyl esters (Lovaza) 1 gram capsule Take 2 g by mouth twice a day.Active garlic 1,000 mg capsule Take 6,000 mg by mouth 1 (one) time each day.Active ASHWAGANDHA EXTRACT ORAL Take 1 tablet by mouth in the morning.Active amLODIPine (Norvasc) 5 mg tablet Take by mouth in the morning.Active HYDROcodone-acetaminophen ([place]) 5-325 mg tablet Indications:Post-op painTake 1 tablet by mouth every 6 (six) hours if needed for severe pain (8-10 pain score) for up to 5 days. 14 tablet /5Active docusate sodium (Colace) 100 mg capsule Indications:Post-op painTake 1 capsule (100 mg) by mouth at bedtime. 30 capsule 501/6Active Active Problems ProblemNoted DateDiagnosed DateExcessive efpfnafb14/26/2025Flank pain02/11/2025 Ganglion cyst of dorsum of right wrist02/11/2025Hair pinpbxsz71/26/2025 Mgrupwcdmnpafljpoz06/26/8347Jwmhgxjqjuwfpps69/26/2025Lipoma of back02/11/2025 Lipoma of upper arm02/11/2025Mass of soft tissue of upper arm02/11/2025Nonsmoker 02/11/2025Obesity due to excess ekvjmjiu13/26/2025Recurrent ventral incisional tlbttf4402/11/2025S/P /26/2025Skin texture vstcktq1002/11/2025Wart of hand02/11/2025Incisional hernia, without obstruction or jmephwll50/21/2025 Assessment & Plan (03/09/2025 6:33 AM EST): Abdominal wall mass01/06/2025 Assessment & Plan (03/09/2025 6:33 AM EST): Orders from past 72 hours: Full Code; Standing ceFAZolin in dextrose (iso-os) (Ancef) IVPB 2 g Acute pain of left sjqgagag58/06/2025History of paranoid etjbwhbz06/06/2025 Memory hlphakyxhp38/06/2025dult BMI 37.0-37.9 kg/sq m010/22/2024Post-menopause /06/2025Mild sayvwxjetjqg89/01/1947Osdlrtojhjud46/30/2024 Encounters DateTypeDepartmentCare WrerAqzfzefvxun04/22/2025 7:39 AM ESTAnesthesia Event [facility] Main Operating Room [address] [place] [address] Deacon Max MD Willis, Davontae, MD 03/09/2025 7:30 AM EST - 03/09/2025 12:00 PM ESTSurgery [facility] Main Operating Room [address] [place] [address] Manfred Perdomo MD ROBOTIC INCISIONAL HERNIA REPAIR WITH MESH03/09/2025 5:57 AM EST - 03/09/2025 1:27 PM ESTHospital Encounter [facility] Main Operating Room [address] [place] [address] Manfred Perdomo MD Post-op pain (Primary Dx); Incisional hernia, without obstruction or gangrene; Abdominal wall mass Discharge Disposition: Home or Self Care ()03/09/20257065Rvchur36/16/2025Orders Only [facility] Pre-Anesthesia Clinic [address] [place] [address] [place] [address] Isai Pollock RN 02/27/2025Orders Only [facility] Pre-Anesthesia Clinic [address] [place] [address] [place] [address] Isai Pollock RN 02/24/2025Telephone [facility] [address] [facility] [place] [address] Adriane Cano MA 02/18/2025Orders Only [facility] [address] [facility] [place] [address] Adriane Cano MA 02/16/2025 9:40 AM ESTOffice Visit [facility] [address] [facility] [place] [address] Dave Johnson MD Primary hypertension (Primary Dx); Incisional hernia, without obstruction or hysvpsum37/01/2025Orders Only [facility] [address] [facility] [place] [address] Rosemary Curiel MA AGUSTIN (dyspnea on exertion) (Primary Dx); Benign hypertensive heart disease 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 lyvxkhi2901/06/2025 3:31 PM EDT - 01/06/2025 11:59 PM EDTHospital Encounter [facility] Heart Station [address] [place] [address] Incisional hernia, without obstruction or gangrene; Abdominal wall mass Discharge Disposition: Home or Self Care ()01/06/2025 2:45 PM EDTConsult [facility] Surgery Clinic [address] [place] [address] Manfred Perdomo MD Incisional hernia, without obstruction or gangrene (Primary Dx); Abdominal wall mass; Easy bruising; Preop cardiovascular exam12/15/2024 12:05 AM EDT - 12/15/2024 11:59 PM EDT Hospital Encounter [facility] Radiology External Films [address] [place] [address] Discharge Disposition: Home or Self Care ()12/15/2024 - 12/15/2024 12:04 AM EDTHospital Encounter [facility] Radiology External Films [address] [place] [address] Discharge Disposition: Home or Self Care ()from [...] 01/06/2025Sexually AbusedNot on file01/06/2025PHQ-2AnswerDate RecordedPatient Health Questionnaire-2 Hwyaq570UT Safety & EnvironmentAnswerDate RecordedFear of Current or Ex-PartnerNot on file05/11/2023Emotionally AbusedNot on file05/11/2023hysically AbusedNot on file05/11/2023Sexually AbusedNot on file05/11/2023hysically or Sexually AbusedNot on file05/11/2023Comments NoSex and Gender InformationValueDate RecordedSex Assigned at BirthFemale 01/06/2025 2:00 PM EDTLegal AcwFuukel72/15/2023 12:50 PM EDTGender Identity Plfgbo4401/06/2025 2:00 PM EDTSexual OrientationHeterosexual or Rqimdhum13/21/2025 2:00 PM EDT Last Filed Vital Signs Vital SignReadingTime TakenCommentsBlood Vkhobhus085/6803/09/2025 12:50 PM EST Feubg987903/09/2025 12:50 PM SSULikwhcjaqni47.5 ??C (97.7 ??F)03/09/2025 12:50 PM ESTRespiratory Regx196805/10/2024 12:50 PM ESTOxygen Kjudbmdlez72%03/09/2025 12:50 PM ESTInhaled Oxygen Concentration--Dszcvz31.3 kg (181 lb 7 oz)03/09/2025 6:50 AM RJYWjorsz126.4 cm (5')03/09/2025 6:50 AM ESTBody Mass Index35.43105/10/2024 6:50 AM EST Plan of Treatment DateTypeDepartmentCare Team (Latest Contact Info)Nyzqonrvgon60/31/2025 10:15 AM ESTOffice Visit [facility] Surgery Clinic [address] [place] [address] Manfred Perdomo MD [address] [address] 03/30/2025 11:00 AM ESTOffice Visit [facility] [address] [facility] [place] [address] Dave Johnson MD [address] [place] [address] Health MaintenanceDue DateLast DoneCommentsMedicare Annual Wellness (AWV) 2Pneumococcal Vaccine: 50+ Years (1 of 1 - PCV)1992Zoster Vaccines (1 of 2)1992Adult Kxrarvp16/, 03/19/2004COVID-19 Vaccine (1 - 2024- season)2024Influenza Vaccine (#1)2024Depression Cjgoxldih89/21/357120/21/2025Fall Risk Ocyygqvib11HIB Vaccines Aged OutNo longer eligible based on [...] on patient's age to complete this topic Medical Devices ImplantedTypeAreaManufacturerDevice IdentifierShelf Expiration DateModel / Serial / LotMesh,Surcigal,Progrip,[id number] - [id number] Implanted:Qty: 1 on 03/09/2025 by [facility]: AbdomenMEDTRONIC [id number]/31/2030 [id number] / / [id number] Procedures Procedure NamePriorityDate/TimeAssociated DiagnosisCommentsPR AN ELECTIVE ENDOTRACHEAL ASTNOWYlghmii34/22/2025 8:00 AM EST EXCISION, MASS, ABDOMINAL WALL03/09/2025 7:41 AM EST Incisional hernia, without obstruction or gangrene Abdominal wall mass REPAIR, HERNIA, VENTRAL, ROBOT-EUPMRJFN30/22/2025 7:41 AM EST Incisional hernia, without obstruction or gangrene Abdominal wall mass MRSA/MSSA DNA SVCDVPejtkhn92/22/2025 6:48 AM EST POCT GLUCOSE METER UNSOLICITED BIVAPHQOvgings55/22/2025 6:47 AM EST ECG 12-PNILCytsaby56/21/2025 4:33 PM EDT Incisional hernia, without obstruction or gangrene Abdominal wall mass US TRANSFER OF OUTSIDE WNZUUYtxfjgh84/29/2025 12:[address] TRANSFER OF OUTSIDE AKHNFWunvusd96/29/2025 12:00 AM EDT from Last 3 Months Results * NV AN ELECTIVE ENDOTRACHEAL AIRWAY (03/09/2025 8:00 AM EST) Deacon Roa MD - 03/09/2025 8:00 AM EST Deacon Max MD 03/10/2025 2:42 PM Airway Date/Time: 03/09/2025 8:00 AM Reason: elective Airway not difficult General Information and Staff Patient location during procedure: OR Anesthesiologist: Deacon Max MD Resident/SUPERVISOR INSTANT POTATO PROCESSING/CAA: Juanis Holm MD Performed: resident/SUPERVISOR INSTANT POTATO PROCESSING/CAA Patient Condition Indications for airway management: anesthesia [...] other approaches attempted: 0 Authorizing ProviderResult TypeResult StatusRavinderidalia Max MDANESTHESIA ORDERABLESFinal Result * MRSA/MSSA DNA Nasal (03/09/2025 6:48 AM EST)ComponentValueRef RangeTest Method Analysis TimePerformed AtPathologist SignatureMSSA DNANegativeNegative 03/09/2025 2:29 PM [facility] ([facility])MRSA DNANegativeNegative 03/09/2025 2:29 PM [facility] ([facility])Specimen (Source)Anatomical Location / LateralityCollection Method / VolumeCollection TimeReceived Time SwabNasal structure / UnknownNon-blood Collection / Mkprfgg1303/09/2025 6:48 AM EST03/09/2025 7:12 AM EST Narrative [facility] ([facility]) - 03/09/2025 2:29 PM EST Testing methodology [...] GENERAL ORDERABLESFinal ResultPerforming OrganizationAddressCity/State/ZIP Code Phone Number [facility] ([facility]) [address] [place] [address] * POCT glucose meter (03/09/2025 6:47 AM EST)ComponentValueRef RangeTest Method Analysis TimePerformed AtPathologist SignatureGlucose UYR3342 - 105 mg/dL 03/09/2025 7:00 AM [facility] ([facility])Comment:lgalloSpecimen (Source)Anatomical Location / LateralityCollection Method / VolumeCollection TimeReceived TimeBloodCapillary blood specimen / Mimnwlz5703/09/2025 6:47 AM EST 03/09/2025 6:59 AM EST Narrative [facility] ([facility]) - 03/09/2025 7:00 AM EST Waived Testing in the ED is performed under the ED CLIA certificate #[id number]. Authorizing ProviderResult TypeResult StatusManfred CONRAD BLOOD ORDERABLES Final ResultPerforming OrganizationAddressCity/State/ZIP CodePhone Number [facility] ([facility]) [address] [place] [address] * ECG 12 lead (01/06/2025 4:33 PM EDT)ComponentValueRef RangeTest MethodAnalysis TimePerformed AtPathologist SignatureVentricular Aoka84OYDXQ MUSEAtrial Rate57 BPMGE MUSEPR Ssudhouf205pdJV MUSEQRS NTBCFQBU38luYJ MUSEQT Owdwgmvu898ddTS MUSEQTC CALCULATION(BAZETT)414msGE MUSEP Tpxu28mazhtlcXX MUSER-Gwwv96khldkksLG MUSET Wave Ucop98notjfdnOE MUSESpecimen (Source)Anatomical Location / LateralityCollection Method / [...] 01/06/2025 8:00:50 PM Authorizing ProviderResult TypeResult Fiona Perdomo MDOKLAH[facility] [place] ORDERABLESFinal ResultPerforming OrganizationAddressCity/State/ZIP CodePhone Number GE MUSE * US transfer of outside films (12/15/2024 12:05 AM EDT)Specimen (Source) Anatomical Location / LateralityCollection Method / VolumeCollection Time Received Time Narrative IMAGING - 12/15/2024 12:30 PM EDT This order has been auto-finalized and does not contain a result. Authorizing ProviderResult TypeResult Fiona Perdomo MD[facility] [place] PROCEDURES Final ResultPerforming OrganizationAddressCity/State/ZIP CodePhone Number IMAGING * CT transfer of outside films (12/15/2024 12:00 AM EDT)Specimen (Source) Anatomical Location / LateralityCollection Method / VolumeCollection Time Received Time Narrative IMAGING - 12/15/2024 12:30 PM EDT This order has been auto-finalized and does not contain a result. Authorizing ProviderResult TypeResult Fiona Perdomo MDT[facility] [place] PROCEDURES Final ResultPerforming OrganizationAddressCity/State/ZIP CodePhone Number IMAGING from Last 3 Months Insurance Advance Directives * Full Code (Latest Code Status on File) Date ActivatedDate IwsswxpqwsrUeelymvv59/22/2025 6:18 AM03/09/2025 3:27 PM Care Teams Team MemberRelationshipSpecialtyStart DateEnd Date Jessie Carlos FNP-C [address] [place] [address] PCP - GeneralNurse Loecespezoyy56/21/25
--- OUTSIDE RECORDS SUMMARY | 2025-03-12 02:03 | XMS_ITS | Clinical Summary ---
Author Organization [facility] Address [address] [place] [address] Care Team Providers Care Bagger And Stock Handler Helper Name Role Phone Jessie Carlos OFF TRACK BETTING MANAGER Primary Care Provider [phone] Allergies No known active allergies Medications MedicationSigDispense [...] InformationValueDate RecordedSex Assigned at Not on fileLegal NrfNunvwc16/25/2014 7:28 PM EDTGender IdentityNot on fileSexual OrientationNot on file Last Filed Vital Signs Vital SignReadingTime TakenCommentsBlood Pressure--Pulse--Temperature-- Respiratory Rate--Oxygen Saturation--Inhaled Oxygen Concentration--Yqgtbv03 kg (205 lb)05/09/2022 8:07 AM CFAQdpwps070.5 cm (5' 2 )05/09/2022 8:07 AM ESTBody Mass Index37.49005/09/2022 8:07 AM EST Plan of Treatment Health MaintenanceDue DateLast DoneCommentsDexa Scan1942Medicare Wellness Visit1945Depression Screening/Follow-Up (PHQ-2/9)4Pneumococcal Vaccine: 50+ Years (1 of 1 - PCV)1992Zoster Vaccines (1 of 2)1992 Falls Risk Gjqqevnbgt68/17/2007RSV Vaccines (1 - 1-dose 75+ series)2017 Tetanus/Diphtheria/Pertussis [...] MemberSubscriberPlan / Payer (Effective 2007-Present)Name:Elisa Wills Member ID:[id number] Relation to Subscriber:SelfName:Elisa Wills Subscriber ID:[id number] Payer ID:Not on file Group ID:Not on file Type:Not on file Address: [facility] [place]S [address] [address] [place] [address] Care Teams Team MemberRelationshipSpecialtyStart DateEnd Date Jessie Carlso CNP [address] [place] [address] PCP - GeneralNurse Practitioner06/13/24
--- OUTSIDE RECORDS SUMMARY | 2025-03-12 02:03 | XMS_ITS | Encounter Summary ---
Author Organization [facility] Address [address] [place] [address] Care Team Providers Care Dog Races Manager Name Role Phone Jessie Carlos INTERVENTION NURSE-C Primary Care Provider [phone] Encounter Details DateTypeDepartmentCare Team (Latest Contact Info)Uqxconmbyld28/22/2025Travel Social History Tobacco UseTypesPacks/DayYears UsedDateSmoking Tobacco: NeverSmokeless Tobacco: NeverAlcohol UseStandard Drinks/WeekCommentsNever0 (1 standard drink = 0.6 oz pure alcohol)Humiliation, Afraid, Rape, and Kick questionnaireAnswerDate RecordedWithin the last year, have you been afraid of your partner or ex-partner?No01/06/2025Emotionally AbusedNot on file01/06/2025Physically Abused Not on file01/06/2025Sexually AbusedNot on file01/06/2025PHQ-2AnswerDate RecordedPatient Health Questionnaire-2 Byvsj566UT Safety & Environment AnswerDate RecordedFear of Current or Ex-PartnerNot on file05/11/2023Emotionally AbusedNot on file05/11/2023hysically AbusedNot on file05/11/2023Sexually Abused Not on file05/11/2023hysically or Sexually AbusedNot on file05/11/2023 CommentsNoSex and Gender InformationValueDate RecordedSex Assigned at Ofqcxd1001/06/2025 2:00 PM EDTLegal ThmEgweih60/15/2023 12:50 PM EDTGender SjegybefAyowfj35/21/2025 2:00 PM EDTSexual OrientationHeterosexual or Straight 01/06/2025 2:00 PM EDTdocumented as of this encounter Plan of Treatment DateTypeDepartmentCare Team (Latest Contact Info)Cpvshfqtstt35/31/2025 10:15 AM ESTOffice Visit [facility] [address] [place] [address] Manfred Perdomo MD [address] [address] 03/30/2025 11:00 AM ESTOffice Visit [facility] [address] [place] [address] Dave Johnson MD [address] [place] [address] documented as of this encounter Visit Diagnoses Not on filedocumented in this encounter Care Teams Team MemberRelationshipSpecialtyStart DateEnd Date Jessie Carlos, BASILIO [address] [place] [address] PCP - GeneralNurse Spmnzeltdgbh62/21/25documented as of this encounter
--- OUTSIDE RECORDS SUMMARY | 2025-03-12 02:03 | XMS_ITS | Encounter Summary ---
Author Organization [facility] Address [address] [place] [address] Care Team Providers Care Contact Worker Lithography Name Role Phone Jessie Carlos PLANT ENGINEER-C Primary Care Provider [phone] Encounter Details DateTypeDepartmentCare Team (Latest Contact Info)Wpbdxpmyiqa81/09/2025Telephone [facility] at [place] [address] [place] [address] Adriane Cano MA Social History Tobacco UseTypesPacks/DayYears UsedDateSmoking Tobacco: NeverSmokeless Tobacco: NeverAlcohol UseStandard Drinks/WeekCommentsNever0 (1 standard drink = 0.6 oz pure alcohol)Humiliation, Afraid, Rape, and Kick questionnaireAnswerDate RecordedWithin the last year, have you been afraid of your partner or ex-partner?No01/06/2025Emotionally AbusedNot on file01/06/2025Physically Abused Not on file01/06/2025Sexually AbusedNot on file01/06/2025PHQ-2AnswerDate RecordedPatient Health Questionnaire-2 Tlwen869UT Safety & Environment AnswerDate RecordedFear of Current or Ex-PartnerNot on file05/11/2023Emotionally AbusedNot on 05/11/2023hysically AbusedNot on 05/11/2023Sexually Abused Not on file05/11/2023hysically or Sexually AbusedNot on file05/11/2023 CommentsNoSex and Gender InformationValueDate RecordedSex Assigned at Jsqlal7501/06/2025 2:00 PM EDTLegal NmnLshiuw65/15/2023 12:50 PM EDTGender RssixiulPlsyuu13/21/2025 2:00 PM EDTSexual OrientationHeterosexual or Straight 01/06/2025 2:00 PM EDTdocumented as of this encounter Miscellaneous Notes * Telephone Encounter - Rosemary Curiel MA - 02/27/2025 1:16 PM EST Patient informed of results per Dr. Johnson. She has follow up with him to discuss this further on 03/30/2025. documented in this encounter Plan of Treatment DateTypeDepartmentCare Team (Latest Contact Info)Ihmsexqwnux04/31/2025 10:15 AM ESTOffice Visit [facility] [address] [place] [address] Manfred Perdomo MD [address] [address] 03/30/2025 11:00 AM ESTOffice Visit [facility] [address] [place] [address] Dave Johnson MD [address] [place] [address] documented as of this encounter Visit Diagnoses Not on filedocumented in this encounter Care Teams Team MemberRelationshipSpecialtyStart DateEnd Date Jessie Carlos, UVALDO-Eusebio [address] [place] [id number] PCP - GeneralNurse Nkfjeltwmjvp54/21/25documented as of this encounter
--- OUTSIDE RECORDS SUMMARY | 2025-03-12 02:04 | XMS_ITS | Clinical Summary ---
Author Organization [facility] Address [address] [place] [address] Care Team Providers Care Sweep Press Operator Name Role Phone Jessie Carlos SOLAR ENERGY SYSTEM INSTALLER Unavailable Allergies No known active allergies Medications MedicationSigDispense QuantityRefillsLast FilledStart DateEnd DateStatus calcium carbonate 1500 (600 Ca) MG tablet Take 1,200 mg by mouth in the morning.5Active carboxymethylcellulose (Refresh Liquigel) 1 % ophthalmic solution dropperette 5Active Cyanocobalamin 1000 MCG/ML liquid Take 1 tablet by mouth in the morning.Active ergocalciferol (Vitamin D2) 1.25 MG (61243 UT) capsule Take 1 capsule by mouth [...] Problems ProblemNoted DateDiagnosed DateAcute pain of left fgaggzgg27/06/2025dult BMI 37.0-37.9 kg/sq m010/22/2024History of paranoid pctegfpp38/06/2025Memory fvfiajsdtd31/06/2025Mixed qarcixtqmbonsk28/06/2025Post-menopause bleeding 10/22/2024 Encounters DateTypeDepartmentCare LtlfOeehinfnllh26/06/2025Telephone [facility] [address] [place] [id number] Gaetano Rosen MD Gxeoykrc89/06/2025Telephone [facility] [address] [place] [phone] Gaetano Rosen MD Advice Only12/18/2024 9:20 AM EDTOffice Visit [facility] [address] [place] [address] Gaetano Rosen MD Subclinical hyperthyroidism (Primary Dx); Thyroid zmdsrs7112/18/2024amboo flowsheet [facility] [address] [place] [address] Gaetano Rosen MD from Last 3 Months Family History RelationNameStatusCommentsFatherDeceasedMotherDeceased Social History Tobacco UseTypesPacks/DayYears UsedDateSmoking Tobacco: NeverSmokeless Tobacco: Never Tobacco Cessation:Counseling Given: Not Answered Alcohol UseStandard Drinks/WeekCommentsNever0 (1 standard drink = 0.6 oz pure alcohol)CommentsUnknownSex and Gender InformationValueDate RecordedSex Assigned at BirthNot on fileLegal CcfZvluwx86/15/2023 8:24 PM EDTGender Identity Not on fileSexual OrientationNot on file Last Filed Vital Signs Vital SignReadingTime TakenCommentsBlood Qwradejc456/8010 9:24 AM EDT Vakvz828612/18/2024 9:24 AM EDTTemperature--Respiratory Gqes3962 9:24 AM EDTOxygen Yxvogtabql75%12/18/2024 9:24 AM EDTInhaled Oxygen Concentration-- Seppih35.2 kg (179 lb)12/18/2024 9:24 AM LQUKunoew525.4 cm (5')12/18/2024 9:24 AM EDTBody Mass Index34.9612/18/2024 9:24 AM EDT Plan of Treatment DateTypeDepartmentCare Team (Latest Contact Info)Pxrfxmtuwul94/08/2026 9:50 AM ESTOffice Visit [facility] [address] [place] [address] Gaetano Rosen MD [address] [place] [address] 04/15/2025 9:00 AM ESTOffice Visit [facility] [address] [place] [address] Kylie Rice MD [address] [place] [address] Insurance Advance Directives TypeDate RecordedPatient RepresentativeExplanationAdvance Directives and Living Will Power of AttorneyAdvance Directives and Living Will Living Will Care Teams Team MemberRelationshipSpecialtySttoms brook DateEnd Date Jessie Carlos NP [address] [place] [phone] Referring PhysicianFamily Medicine10/28/24
--- OUTSIDE RECORDS SUMMARY | 2025-03-12 02:04 | XMS_ITS | Clinical Summary ---
Author Organization PPT[facility] tem Address [id number] [address] [place] [address] Care Team Providers Care Funds Transfer Clerk Name Role Phone No Pcp, No [...] standard drink = 0.6 oz pure alcohol)ChildcareAnswerDate QwtgsbhcIbdwajsnkTtgrylz11/12/2019EmploymentAnswer Date XfmogijkKliflilqbvZtnnmrd90/12/2019Purpose - LifeAnswerDate RecordedPurpose and direction in ohnzFtyagne67/11/2021CommentsNoSex and Gender InformationValueDate RecordedSex Assigned at BirthNot on fileLegal SexFemale 10/22/2014 11:24 AM EDTGender IdentityNot on fileSexual OrientationNot on file Last Filed Vital Signs Vital SignReadingTime TakenCommentsBlood Iksfsmiv622/7208 9:38 AM EDT Kxgzn582811/01/2017 9:38 AM HYLIukxybmdrzh10.4 ??C (97.5 ??F)11/01/2017 9:38 AM EDTRespiratory Xnvi155611/01/2017 9:38 AM EDTOxygen Gusjsucpvk97%11/01/2017 9:38 AM EDTInhaled Oxygen Concentration--Jdrnyz35 kg (194 lb 0.1 oz)11/01/2017 9:38 AM FZQSgwdom532.5 cm (5' 2 )11/01/2017 9:38 AM EDTBody Mass Index35.48011/01/2017 9:38 AM EDT Plan of Treatment Health MaintenanceDue DateLast DoneCommentsDepression Uoldncodx14/17/1954Tobacco Zcobxwtmu58/17/1954DTaP,Tdap and Td Vaccines (1 - Tdap)1961Zoster (Shingles) Vaccine (1 of 2)1992Fall Risk Xdcsaxiob88/17/2007RSV ( or age 60+ yrs) (1 - 1-dose 75+ series)2017Influenza Dlsyhkv2511/17/2024 Medical Devices Not on file Insurance Care Teams Team MemberRelationshipSpecialtyStart DateEnd Date No Pcp, [place] [address] PCP - GeneralFamily Medicine11/01/17
== END 2025-03-12 02:45 | disposition home or self-care (01) ==
PROVIDERS: Emergency Provider Internal Medicine
DX: K59.00 Constipation, unspecified (principal)
CPT/HCPCS: 74018; 99283